=== PATIENT | female | born 1955 | race Caucasian/White ===

== ENCOUNTER 2021-11-16 13:08 | Outpatient (CLI) | payer MEDICARE, SELFPAY ==
--- OUTSIDE RECORDS SUMMARY | 2021-11-16 13:11 | XMS_ITS | Encounter Summary ---
:1955 Author Organization [facility] Address [address] [place] [address] Care Team Providers Name Role Phone Lew Grewal MD Primary Care Provider Reason for Visit Reason Comments LAB RESULTS Encounter Details Date Type Department Care Team Description 01/13/2019 Telephone [facility] [address] Kenrick Juarez MD LAB RESULTS Rheumatology 3800 [facility] [address] [place] [address] [place] [address] [phone] Social History Tobacco Use Types Packs/Day Years Used Date Smoking Tobacco: Smoker, Current Status Unknown Cigarettes 1 45 Smokeless Tobacco: Never Alcohol Use Standard Drinks/Week Comments No 0 (1 standard drink = 0.6 oz pure alcoho l) Sex Assigned at Date Recorded Not on file documented as of this encounter Nursing Notes Judith Wray LPN - 01/14/2019 9:48 AM CDT Faxed results to Dr. Grewal. No results for pt ELCP. Did note this on lab results. Kenrick Juarez MD - 01/13/2019 4:35 PM CDT Please fax recent blood work and hand x-ray to her provider. INDERT Anitha Ibarra LPN - 01/13/2019 10:41 AM CDT Patients called and they would like her lab results faxed to: Dr Lew Grewal documented in this encounter Plan of Treatment Not on filedocumented as of this encounter Visit Diagnoses Not on filedocumented in this encounter Care Teams Oil Laboratory Analyst Relationship Specialty Start Date End Date Lew Grewal MD PCP - General Family Practice 12/10/[address] [place] [address] CHRISTINA MARTINEZ [id number] documented as of this encounter
--- OUTSIDE RECORDS SUMMARY | 2021-11-16 13:11 | XMS_ITS | Encounter Summary ---
:1955 Author Organization [facility] Address [address], [place] [address] Care Team Providers Name Role Phone Unassigned, Provider Primary Care Provider Unavailable Reason for Visit Reason Onset Date Comments RESULTS, TEST 11/01/2010 Encounter Details Date Type Department Care Team Description 11/01/2010 Telephone [facility] Marcello Russell MD RESULTS, TEST [address] [place], [place] [address] Social History Tobacco Use Types Packs/Day Years Used Date Smoking Tobacco: Former Cigarettes 1 45 Comments: quit 5-6 months ago Alcohol Use Standard Drinks/Week Comments No 0 (1 standard drink = 0.6 oz pure alcoho l) Sex Assigned at Date Recorded Not on file documented as of this encounter Nursing Notes Elva Reyes RN - 11/01/2010 1:59 PM CDT Spoke with pt and reviewed results per Dr. Rollins Pt verbalized understanding and did not have further questions at this time. Elva Reyes RN Jack Lu - 11/01/2010 1:32 PM CDT Pt states returning call. Please call Elva Reyes RN - 11/01/2010 11:33 AM CDT Message left for pt to return call. Elva Reyes RN Elva Reyes RN - 11/01/2010 8:08 AM CDT Message copied by ELVA REYES on SatNov 01, 2010 8:08 AM ------ Message from: MARCELLO RUSSELL Created: SatOct 25, 2010 8:52 AM Labs are normal except B12 level is quite low; should begin B12 supplement ([id number]) cystsand get a repeat level and one month. Hemoglobin A1c indicates diabetic control needs improvement. Should followup with PCP on this. Dr. Russell documented in this encounter Plan of Treatment Not on filedocumented as of this encounter Visit Diagnoses Not on filedocumented in this encounter Care Teams Road Grader Relationship Specialty Start Date End Date Unassigned, Provider PCP - General 01/12/00 08/29/[address] [place] [address] documented as of this encounter
--- OUTSIDE RECORDS SUMMARY | 2021-11-16 13:11 | XMS_ITS | Encounter Summary ---
:1955 Author Organization [facility] Address [address], [place] [address] Care Team Providers Name Role Phone Unassigned, Provider Primary Care Provider Unavailable Reason for Referral Specialty Diagnoses / Procedures Referred By Contact Refer red To Contact Marcello Monterroso MD [address] [place] [address] Referral ID Status Reason Start Date Expiration Date Visits Requ ested Visits Authorized Scheduling Instructions Your provider [facility] You may call [phone] to schedule your a ppointment. If you prefer, a portable power tool repairer will contact you within the next 3 business d ays to assist you in setting up this appointment. Reason for Visit Reason Comments MULTIPLE SCLEROSIS swallowing difficulty Encounter Details Date Type Department Care Team Description 10/19/2010 Office Visit [place] [facility] Marcello Monterroso Multiple sclerosis (Primary Dx); [address] [facility] Abnormality of gait; [place], [place] [address] Other specified visual distu rbances [phone] Social History Tobacco Use Types Packs/Day Years Used Date Smoking Tobacco: Former Cigarettes 1 45 Comments: quit 5-6 months ago Alcohol Use Standard Drinks/Week Comments No 0 (1 standard drink = 0.6 oz pure alcoho l) Sex Assigned at Date Recorded Not on file documented as of this encounter Patient Instructions Patient InstructionsMarcello Monterroso - 10/19/2010 2:39 PM CDT Send for records from primary care Schedule brain and cervical spine MRI with and without contrast at [facility] today Refer to Eye clinic for exam Have your nurse fax us your med list - FAX number is [phone] Return 2 months; bring all your medicines with you when you come back. Marcello Monterroso MD documented in this encounter Progress Notes Marcello Monterroso - 10/19/2010 2:54 PM CDT YARY PHILIPPE is a 55 yr old right-handed woman that I last saw in 2007. She has a long-standing diagnosis of multiple sclerosis with extensive white matter lesions on MR scan in 2005. She is not on DMT. She has been followed elsewhere and apparently has been seen neurologically. We do not have those records. The patient says that about a month ago she had an exacerbation of symptoms. She reports diplopia, burning back and leg pain. She apparently was given a short course of intravenous steroids and improved. She continues to have problems with walking and balance and falls occasionally; she reports lightheadedness. She chokes when swallowing. She has coordination problems worse on the left. She has bladder urgency and incontinence. Poor visual acuity bilaterally. History of migraine headaches. No h/o significant head trauma, INFORMATION SERVICES MANAGER infections, seizures, LOC, prior LP, CVA/TIA symptoms. Current outpatient prescriptions Medication Sig ??? AVONEX 30 MCG/VIAL IM KIT Inject 1 vial IM weekly as directed. ??? CYMBALTA 30MG ORAL CAPS 1 tab qam, 2 tabs qhs ??? LISINOPRIL 40 MG OR TABS Take one tablet by mouth every day. ??? LORAZEPAM 0.5 MG OR TABS 1 tab qhs ??? METFORMIN HCL 500 MG OR TABS 1 twice daily ??? NEXIUM 40 MG OR CPDR 1 daily ??? NORTRIPTYLINE HCL 50 MG OR CAPS 2 po hs ??? OXYCODONE-ACETAMINOPHEN 5-325 MG OR TABS Take 1-2 tablets by mouth every 4-6 hours as needed forpain. ??? TOPROL XL OR 1 daily ??? VYTORIN 10-40MG ORAL TABS 1daily ??? ZOMIG 5 MG OR TABS 1 tab prn Allergies Allergen Reactions ??? Bactrim (Sulfamethoxazole W/trimethoprim) Hives ??? Nitrofurantoin Hives No family history on file. Review of systems: Type 2 diabetes; reflux; hypertension; bipolar affective disorder with depressionand anxiety. Migraine headache. Examination: Neatly casually dressed, alert, cooperative, severely overweight middle-age woman. Patchy recall of medical history, speech functions normal, no dysarthria. No right left confusion or sensory extinction. Follows simple directions quickly and accurately. Cranial Nerves: Pupils equal and reactive. Peripheral visual etienne intact. Central visual acuity poor with correction. Eye movements are full and conjugate with interrupted smooth pursuit and pendularnystagmus on refixation. Facial movements, tongue, palate, swallow normal. Motor: No arm drift. Moderately impaired left fine finger control. Tendon reflexes 1+ and equal, trace at the ankles.. Plantar responses downgoing, no clonus. Mild tremor of the outstretched hands. Able to rise on heels and toes. Sensation: Inconsistent and patchy sensory change in the extremities. Cerebellar: finger to nose and heel to ocampo accurate. Normal gait. No edema or trophic changes over the feet. Straight leg raising negative. Normal habitus and spinal curvatures. Impression: Multiple sclerosis; visual loss-cause undetermined; left-sided clumsiness; dysphagia; neuralgia Plan: Will send for the records of the patient's recent care in a medication list from her visiting nurse. Patient is not sure what medications she is on. We'll do some screening labs to reassess her diabetes; we'll recheck vitamin levels. Will order a cranial and cervical spine MR scan with and without contrast. Depending on whether or not receiving the development of new or active lesions we may consider DMT. Referred to ophthalmology for evaluation. Depending on what has been done at the patient's primary clinic we may want a swallow study and urologic evaluation. We'll check orthostatic blood pressures at next visit. I'll see the patient back in two months to reassess. Marcello Monterroso MD Please note-This report was transcribed with the assistance of voice recognition software and may contain word substitution or spelling errors. documented in this encounter Plan of Treatment Scheduled Referrals Name Type Priority Associated Diagnoses Order S chedule OPHTHALMOLOGY Referral Routine Other specified visual Orde red: 10/19/2010 CONSULT-ADULT/PEDS disturbances documented as of this encounter Results NMO IGG (10/19/2010 2:58 PM CDT) Component Value Ref Test Analysis Performed At Patholo gist Range Method Time Signature NMO-IgG <1.6 [facility] Reference Range: <1.6 U/mL NMO-IgG (NOTE) [facility] NMO Evaluation w/Reflex, S ?? Interpretive Comments ? No informative autoantibodies were detected in this ? evaluation. ??A negative result does not exclude a di agnosis ? of a neuromyelitis optica spectrum of disorders. For research use only Test Performed by: [employer] [address] [place] [id number] Specimen Anatomical Collection Method Collection Time Receive d Time (Source) Location / / Volume Laterality 10/19/2010 2:58 PM 1 3:04 CDT PM CDT Marcello Monterroso MD LAB_1 Performing Organization Address [facility] Phon e Number [facility] [phone] [facility] [address] [phone] (ABNORMAL) VIT B12 & FOLATE (10/19/2010 2:58 PM CDT) P athologist Signature Vitamin B12 214 (L) 239 - 931 [facility] pg/ml Folate >20.0 >3.0 ng/ml [facility] Specimen Anatomical Collection Method Collection Time Receive d Time (Source) Location / / Volume Laterality 10/19/2010 2:58 PM 1 3:04 CDT PM CDT Marcello Monterroso MD LAB_1 Performing Organization Address [facility] Phon e Number [facility] [employer] [phone] [facility] [address] [place] [phone] OSCAR SCREEN (10/19/2010 2:58 PM CDT) Analysis Performed At Patho logist Time Signature OSCAR Screen Negative NEG [facility] Specimen Anatomical Collection Method Collection Time Receive d Time (Source) Location / / Volume Laterality 10/19/2010 2:58 PM 1 3:04 CDT PM CDT Marcello Monterroso MD LAB_1 Performing Organization Address [facility] Phon e Number [facility] [employer] [phone] [phone] (ABNORMAL) HGB A1C (10/19/2010 2:58 PM CDT) athologist Signature Hgb A1c 8.9 (H) 4.3 - 6.1 % [facility] Comment: The usual A1C goal for people with diabe yanna, age 18-75, is < 7.0%. Physicians may recommend a higher or lo wer goal for specific individuals. Specimen Anatomical Collection Method Collection Time Receive d Time (Source) Location / / Volume Laterality 10/19/2010 2:58 PM 1 3:04 CDT PM CDT Marcello Monterroso MD LAB_1 Performing Organization Address [facility] Phon e Number [facility] [employer] [phone] [phone] ESR (10/19/2010 2:58 PM CDT) athologist [facility] ESR 2 0 - 20 [facility] mm/hr Specimen Anatomical Collection Method Collection Time Receive d Time (Source) Location / / Volume Laterality 10/19/2010 2:58 PM 1 3:04 CDT PM CDT Marcello Monterroso MD LAB_1 Performing Organization Address [facility] Phon e Number [facility] [employer] [phone] [address] (ABNORMAL) HEMOGRAM/PLTS (10/19/2010 2:58 PM CDT) athologist Signature WBC 12.5 (H) 4.0 - 11.0 [facility] k/ul RBC 4.53 4.0 - 5.2 [facility] M/ul Hemoglobin 14.4 12.0 - [facility] 16.0 g/dl HCT 41.9 36.0 - [facility] 46.0 % MCV 92.4 80 - 100 [facility] fl MCH 31.8 26 - 34 pg [facility] MCHC 34.5 32 - 36 [facility] g/dl RDW 13.3 11.5 - [facility] 14.5 % Platelets 418 150 - 450 [facility] k/ul Specimen Anatomical Collection Method Collection Time Receive d Time (Source) Location / / Volume Laterality 10/19/2010 2:58 PM 1 3:04 CDT PM CDT Marcello Monterroso MD LAB_1 Performing Organization Address [facility] Phon e Number [facility] [employer] [phone] [facility] [address] [place] [phone] BASIC METABOLIC PANEL (10/19/2010 2:58 PM CDT) Analysis Performed At Patho logist Time Signature BUN 14 7 - 20 [facility] mg/dl Sodium 140 135 - 145 [facility] mmol/L Potassium 4.5 3.5 - 5.3 [facility] mmol/L Chloride 101 95 - 106 [facility] mmol/L CO2 27 22 - 30 [facility] mmol/L Glucose 151 70 - 180 [facility] mg/dl Creatinine 0.76 0.52 - [facility] 1.04 mg/dl GFR, Estimated >60.0 >60 [facility] ml/min/1.7 3m2 GFR, Est., If >60.0 >60 [facility] Black ml/min/1.7 3m2 Calcium 9.8 8.4 - 10.2 [facility] mg/dl Anion Gap 12 7 - 16 [facility] (calc.) mmol/L Specimen Anatomical Collection Method Collection Time Receive d Time (Source) Location / / Volume Laterality 10/19/2010 2:58 PM 1 3:04 CDT PM CDT Marcello Monterroso MD LAB_1 Performing Organization Address [facility] Phon e Number [facility] [employer] [phone] [facility] [address] [place] [phone] AST (SGOT) (10/19/2010 2:58 PM CDT) P athologist Signature AST (SGOT) 38 0 - 55 U/L [facility] Specimen Anatomical Collection Method Collection Time Receive d Time (Source) Location / / Volume Laterality 10/19/2010 2:58 PM 1 3:04 CDT PM CDT Marcello Monterroso MD LAB_1 Performing Organization Address [facility] Phon e Number [facility] [phone] [facility] [address] [place] [phone] ALT (SGPT) (10/19/2010 2:58 PM CDT) athologist Signature ALT (SGPT) 43 0 - 69 U/L [employer] Specimen Anatomical Collection Method Collection Time Receive d Time (Source) Location / / Volume Laterality 10/19/2010 2:58 PM 1 3:04 CDT PM CDT Marcello Monterroso MD LAB_1 Performing Organization Address [facility] Phon e Number [facility] [employer] [phone] [phone] documented in this encounter Visit Diagnoses Diagnosis Multiple sclerosis (HRC) - Primary Multiple sclerosis Abnormality of gait Other specified visual disturbances documented in this encounter Care Teams Camp Housekeeper Relationship Specialty Start Date End Date Unassigned, Provider PCP - General 01/12/00 08/29/[address] [place] [id number] documented as of this encounter
--- OUTSIDE RECORDS SUMMARY | 2021-11-16 13:11 | XMS_ITS | Clinical Summary ---
:1955 Author Organization [facility] Address [address] [place] [address] Care Team Providers Name Role Phone Lew Grewal MD Primary Care Provider Source Comments You are receiving this document as you are listed as the primary care provider,follow-up provider, or the patient has been referred to you for consultation.This is in compliance with the Medicare and Medicaid EHR Incentive Program,which states Providers who transition their patient to another setting of careor provider of care or refers their patient to another provider of care shouldprovide summarycare record for each transition of care or referral. [employer] Allergies Active Allergy Reactions Severity Noted Date Comments Sulfamethoxazole-Trimethoprim Hives 10/19/2010 Nitrofurantoin Hives 10/19/2010 Medications Medication Sig Dispensed Refills Start Date End Date Status NEXIUM 40 MG OR 1 daily 0 Acti ve CPDRIndications: Memory loss, Multiple sclerosis (HRC) NORTRIPTYLINE HCL 50 2 po hs 60 6 10/29/2005 Active MG OR CAPSIndications: Multiple sclerosis (HRC) METFORMIN HCL 500 MG 1 twice daily 0 Active OR TABS TOPROL XL OR 1 daily 0 Active LISINOPRIL 40 MG OR Take one tablet by 0 Active TABS mouth every day. ZOMIG 5 MG OR TABS 1 tab prn 0 A ctive CYMBALTA 30MG ORAL 1 tab qam, 2 tabs 0 Active CAPS qhs LORAZEPAM 0.5 MG OR 1 tab qhs 0 Active TABS salsalate (AKA Take 2 Tabs by 60 Tab 0 09/06/2011 Active DISALCID) 750 MG mouth two times a tabletIndications: day. Myalgia and myositis, unspecified baclofen (LIORESAL) 10 Take 1 Tablet by 0 12/28/2010 Active MG tablet mouth. QUEtiapine (SEROQUEL) QUEtiapine 100 mg 0 07/11/2013 Active 100 MG tablet oral tablet See Instructions, 1 tab(s) PO in AM, 4 tab s at bedtime diclofenac (VOLTAREN) Apply 2 g to skin 200 g 11 01/12/2019 Active 1 % gelIndications: 4 times a day. Arthralgia, unspecified joint, Primary osteoarthritis of both hands oxyCODONE (ROXICODONE) Take 1 Tablet by 0 06/19/2013 Active 5 MG immediate release mouth. tablet Active Problems Problem Noted Date Diabetic neuropathy 01/12/2019 Hyperlipidemia LDL goal <100 01/12/2019 Migraine headache 01/12/2019 Seasonal allergic rhinitis 01/12/2019 Acute pancreatitis 09/22/2014 Relapsing pancreatitis 08/29/2014 Overview: Pancreatitis Chronic Recurrent Essential hematuria 01/18/2010 Diabetes mellitus, type 2 01/12/2008 GERD (gastroesophageal reflux disease) 01/12/2008 Benign essential hypertension 12/24/2006 Overview: Benign Essential Hypertension Essential hypertension, benign Bipolar disorder 09/18/2005 Overview: Epic Multiple sclerosis 09/06/2005 Abnormality of gait 09/06/2005 Resolved Problems Problem Noted Date Resolved Date Memory loss 09/06/2005 10/29/2005 Immunizations Name Administration Dates Next Due Flu Vac (3+ yrs) 03/13/2000 Social History Tobacco Use Types Packs/Day Years Used Date Smoking Tobacco: Smoker, Current Status Unknown Cigarettes 1 45 Smokeless Tobacco: Never Alcohol Use Standard Drinks/Week Comments No 0 (1 standard drink = 0.6 oz pure alcoho l) Sex Assigned at Date Recorded Not on file Last Filed Vital Signs Vital Sign Reading Time Taken Comments Blood Pressure 141/64 01/12/2019 1:22 PM CDT Pulse 75 01/12/2019 1:22 PM CDT Temperature - - Respiratory Rate 20 12/06/2010 1:26 PM CDT Oxygen Saturation - - Inhaled Oxygen Concentration - - Weight 76.7 kg (169 lb) 01/12/2019 1:22 PM CDT Height 162.6 cm (5' 4) 01/12/2019 1:22 PM CDT Body Mass Index 29.01 01/12/2019 1:22 PM CDT Plan of Treatment Health Maintenance Due Date Last Done Comments Colon Cancer Screening Plan 1955 Due Diabetes: Eye Exam 1955 Diabetes: Foot Exam 1955 Diabetes: Lipid Panel 1955 Diabetes: Urine 1955 Microalbumin COVID-19 Vaccine (#1) 1955 Adult Preventive Visit 05/11/2000 05/11/1999 Mammogram 11/04/2004 11/05/2003 Diabetes: HGBA1C 01/19/2011 10/19/2010, 09/18/2005 Diabetes: Creatinine 10/20/2011 10/19/2010, 09/18/2005 DTaP/Tdap/Td (2 - Tdap) 08/21/2014 08/21/2004, 08/21/2004 Zoster/Shingles (2 of 3) 07/17/2016 05/22/2016 Pneumococcal 65+ Yrs (3 - 09/20/2020 09/21/2019, 08/12/2015 , PPSV23) 06/29/2014, Additional history exists Influenza (#1) 2021 02/17/2016, 01/10/2015, 02/11/2014, Additional history exists Hep C Screening (Preventive Completed 01/12/2019 Services) HepA Aged Out No longer eligib le based on patient 's age to complete this topic HepB Aged Out No longer eligib le based on patient 's age to complete this topic Hib Aged Out No longer eligib le based on patient 's age to complete this topic IPV (Polio) Aged Out No longer eligib le based on patient 's age to complete this topic MCV4 Aged Out No longer eligib le based on patient 's age to complete this topic Insurance Payer Benefit Plan / Subscriber ID Effective Dates Phone Addre ss Type Group BCBS BCBS AHA [id number] 2018-[place] [id number] Commercial [employer] CHRISTINA CARABALLO [id number] Yary Prince Personal/Family Self 1955 [id number] [facility] [address] [facility] [phone] CHRISTINA SHEFFIELD (Work) [phone] Care Teams Balloon Tester Relationship Specialty Start Date End Date Lew Grewal MD PCP - General Family Practice 12/10/[address] [place] [address] CHRISTINA MARTINEZ [id number]
--- OUTSIDE RECORDS SUMMARY | 2021-11-16 13:11 | XMS_ITS | Encounter Summary ---
:1955 Author Organization [facility] Address [address], [place] [address] Care Team Providers Name Role Phone Unassigned, Provider Primary Care Provider Unavailable Reason for Visit Reason Onset Date Comments QUESTIONS, GENERAL 10/23/2007 Encounter Details Date Type Department Care Team Description 10/23/2007 Telephone [place] [facility] Marcello Monterroso MD QUESTIONS, GENERAL [address] [facility]. [place], [place] [address] Social History Tobacco Use Types Packs/Day Years Used Date Smoking Tobacco: Former Cigarettes 1 45 Comments: quit 5-6 months ago Alcohol Use Standard Drinks/Week Comments No 0 (1 standard drink = 0.6 oz pure alcoho l) Sex Assigned at Date Recorded Not on file documented as of this encounter Nursing Notes Andreina Esquivel - 10/23/2007 4:35 PM CDT Pt states she's on her way to ER now bc she's having problems breathing my windpipe closes off. Someone else is driving. Told pt it's correct for her to go to ER - if worse, call 911. Pt voiced understg. Andreina Esquivel, RN Lexy De Los Santos - 10/23/2007 1:19 PM CDT Pt states that she is having throat problems and difficulty - states her primary advised it is MS related and to contact us - pt states it is getting worse - documented in this encounter Plan of Treatment Not on filedocumented as of this encounter Visit Diagnoses Not on filedocumented in this encounter Care Teams Supervisor Last Model Department Relationship Specialty Start Date End Date Unassigned, Provider PCP - General 01/12/00 08/29/[address] [place] [id number] documented as of this encounter
--- OUTSIDE RECORDS SUMMARY | 2021-11-16 13:11 | XMS_ITS | Encounter Summary ---
:1955 Author Organization [facility] Address [address] [place] [address] Care Team Providers Name Role Phone Unassigned, Provider Primary Care Provider Unavailable Encounter Details Date Type Department Care Team Description 10/11/2005 Orders Only [facility] 401 Marcello Monterroso MD [facility] [address] [place] [address]. [place] [address] Social History Tobacco Use Types Packs/Day Years Used Date Smoking Tobacco: Every Day Cigarettes 1 45 Comments: States as of 09-18-05 she is no t buying any more cigarettes Alcohol Use Standard Drinks/Week Comments No 0 (1 standard drink = 0.6 oz pure alcoho l) Sex Assigned at Date Recorded Not on file documented as of this encounter Procedure Notes Nahid Arredondo H - 10/11/2005 12:00 AM CDTAssociated Order(s): EEG EXT MONITORING; 41-60 MIN EEG REPORT EEG REPORT #: [id number] REFERRING PHYSICIAN: Dr. Marcello Monterroso This is a spontaneous nonfasting EEG of a patient who has history of MS, cognitive deficit, bipolar disorder, gait unsteadiness and recently has been complaining of memory problems. She is on Avonex, Depakote, Cymbalta, amitriptyline, glipizide, nadolol and TriCor. In wakeful state, there is a well-modulated, 9-10 Hz, posterior rhythm which blocks on eye opening. Occasional right temporal slowing is seen. There is 1 episode of phase reversal of sharp wave at T4-T6. The patient becomes drowsy but does not go to sleep. EKG was monitored and shows sinus rhythm. Photic stimulation did not give rise to any abnormality. Hyperventilation was not performed. IMPRESSION: This is a mildly abnormal EEG because of occasional right temporal slowing and 1 phase-reversing sharp wave over the right temporal region. Clinical correlation is recommended. If necessary, a sleep-deprived EEG should be performed. P cc: MD Marcello Montgomery MD documented in this encounter Plan of Treatment Not on filedocumented as of this encounter Procedures Procedure Name Priority Date/Time Associated Diagnosis Comme nts EEG EXT MONITORING; 10/11/2005 Results for this 41-60 MIN procedure are i n the results section . documented in this encounter Results EEG EXT MONITORING; 41-60 MIN (10/11/2005) Anatomical Region Laterality Modality Other Transcriptions JennyNahid rodriguez Catarino - 10/11/2005 12:00 AM CDT EEG REPORT EEG REPORT #: [id number] REFERRING PHYSICIAN: Dr. Marcello Monterroso This is a spontaneous nonfasting EEG of a patient who has history of MS, cognitive deficit, bipolar disorder, gai t unsteadiness and recently has been complaining of memory problems. She is on Avonex, Depakote, Cymbalta, am itriptyline, glipizide, nadolol and TriCor. In wakeful state, there is a well-modula carlito, 9-10 Hz, posterior rhythm which blocks on eye opening. Occasional right temporal slowing is seen. There is 1 episode of phase reversal of sharp wave at T4-T6. The patient becomes drowsy but does not go to sleep. EKG was monitored and shows sinus rhythm. Photic stimulation did not give rise to any abnormality. Hyperventilation was not performed. IMPRESSION: This is a mildly abnormal EEG because of occasional right temporal slowing and 1 phase-reversing sharp wave over th e right temporal region. Clinical correlation is recommended. If necessary, a sleep-deprived EEG should be performed. P cc: MD Marcello Montgomery MD Marcello Monterroso MD PROC_1 documented in this encounter Visit Diagnoses Not on filedocumented in this encounter Care Teams Cardiothoracic Surgeon Relationship Specialty Start Date End Date Unassigned, Provider PCP - General 01/12/00 08/29/[address] [place] [id number] documented as of this encounter
--- OUTSIDE RECORDS SUMMARY | 2021-11-16 13:11 | XMS_ITS | Encounter Summary ---
:1955 Author Organization [facility] Address [address] [place] [address] [place] [address] Care Team Providers Name Role Phone Unassigned, Provider Primary Care Provider Unavailable Reason for Visit Reason Comments MULTIPLE SCLEROSIS Encounter Details Date Type Department Care Team Description 08/19/2007 Office Visit [facility] Marcello Monterroso, Multiple Sclerosis (Primary Dx); [address] Gabbi LOUIS Obesity, Unspecified [place], [place] [address] Social History Tobacco Use Types Packs/Day Years Used Date Smoking Tobacco: Former Cigarettes 1 45 Comments: quit 5-6 months ago Alcohol Use Standard Drinks/Week Comments No 0 (1 standard drink = 0.6 oz pure alcoho l) Sex Assigned at Date Recorded Not on file documented as of this encounter Last Filed Vital Signs Vital Sign Reading Time Taken Comments Blood Pressure 136/84 08/19/2007 10:05 AM CDT Pulse 64 08/19/2007 10:05 AM CDT Temperature - - Respiratory Rate - - Oxygen Saturation - - Inhaled Oxygen Concentration - - Weight 107 kg (236 lb) 08/19/2007 10:05 AM CDT Height 160 cm (5' 3) 08/19/2007 10:05 AM CDT Body Mass Index 41.81 08/19/2007 10:05 AM CDT documented in this encounter Nursing Notes 08/19/2007 10:15 AM CDT >> GABE Fierro August 19, 2007 10:16 AM FOLLOW-UP Meds updated and verified with pt. documented in this encounter Plan of Treatment Not on filedocumented as of this encounter Visit Diagnoses Diagnosis Multiple sclerosis (HRC) - Primary Multiple sclerosis Obesity, unspecified (HRC) Obesity, unspecified documented in this encounter Care Teams Retirement Consultant Relationship Specialty Start Date End Date Unassigned, Provider PCP - General 01/12/00 08/29/[address] [place] [address] documented as of this encounter
--- OUTSIDE RECORDS SUMMARY | 2021-11-16 13:11 | XMS_ITS | Encounter Summary ---
:1955 Author Organization [facility] Address [address], [place] [address] Care Team Providers Name Role Phone Unassigned, Provider Primary Care Provider Unavailable Reason for Visit Reason Onset Date Comments MEDICATION, NOS 02/15/2006 Encounter Details Date Type Department Care Team Description 02/15/2006 Telephone [facility] Marcello Monterroso MD MEDICATION, NOS [address] [facility]. . [place], [place] [address] Social History Tobacco Use Types Packs/Day Years Used Date Smoking Tobacco: Every Day Cigarettes 1 45 Comments: States as of 09-18-05 she is no t buying any more cigarettes Alcohol Use Standard Drinks/Week Comments No 0 (1 standard drink = 0.6 oz pure alcoho l) Sex Assigned at Date Recorded Not on file documented as of this encounter Nursing Notes Delilah Glez RN - 02/20/2006 9:44 AM PRESS SET UP PERSON Rosemary was called back, given the information that was available regarding the Copaxone, told that if she wanted further information she would need to sign a MOHINDER and get the records faxed to the facility where the patient is now. Delilah Gelz RN S SET UP PERSON Delilah Glez RN - 02/15/2006 11:08 AM [facility] called, message left to call back. Delilah Glez RN Lexy Erickson - 02/15/2006 10:37 AM [facility] facility calling with theses questions Regarding Avonix WHAT DOSE WAS PATIENT ON HOW LONG ANY OTHER SAME TYPE MEDS TRIED S SET UP PERSON documented in this encounter Plan of Treatment Not on filedocumented as of this encounter Visit Diagnoses Not on filedocumented in this encounter Care Teams Jumpbasting Armhole Baster Relationship Specialty Start Date End Date Unassigned, Provider PCP - General 01/12/00 08/29/[address] [place] [address] documented as of this encounter
--- OUTSIDE RECORDS SUMMARY | 2021-11-16 13:11 | XMS_ITS | Encounter Summary ---
:1955 Author Organization [facility] Address [address] [place] [address] Care Team Providers Name Role Phone Lew Grewal MD Primary Care Provider Encounter Details Date Type Department Care Team Description 01/12/2019 Lab Visit [facility] Arthralgia, unspecified join t; [address] [employer] Primary osteoarthritis of shavon th hands; [place] [address] Myalgia [phone] Social History Tobacco Use Types Packs/Day Years Used Date Smoking Tobacco: Smoker, Current Status Unknown Cigarettes 1 45 Smokeless Tobacco: Never Alcohol Use Standard Drinks/Week Comments No 0 (1 standard drink = 0.6 oz pure alcoho l) Sex Assigned at Date Recorded Not on file documented as of this encounter Progress Notes Kenrick Juarez MD - 01/12/2019 2:20 PM CDT Recent blood work shows normal inflammatory markers C-reactive protein and sedimentation rate pointing against an active inflammatory process. Normal muscle enzymes. Negative screen for rheumatoid arthritis. Negative screening for gout arthritis. Negative screening for hepatitis C. documented in this encounter Plan of Treatment Not on filedocumented as of this encounter Procedures Procedure Name Priority Date/Time Associated Diagnosis Comme nts ANTI-CCP AB Routine 01/12/2019 2:27 PM Arthralgia, Results f or this CDT unspecified join t procedure are in Primary osteoarthritis the r esults of both hands section. ELP, CASCADE, SERUM Routine 01/12/2019 2:27 PM Arthralgia, Re sults for this CDT unspecified join t procedure are in Primary osteoarthritis the r esults of both hands section. RHEUMATOID FACTOR, Routine 01/12/2019 2:27 PM Arthralgia, Res ults for this QUANT CDT unspecified join t procedure are in Primary osteoarthritis the r esults of both hands section. HEPATITIS C Routine 01/12/2019 2:27 PM Arthralgia, Results f or this ANTIBODY, WITH CDT unspecified join t procedure are in REFLEX Primary osteoarthritis the r esults of both hands section. C-REACTIVE PROTEIN Routine 01/12/2019 2:27 PM Arthralgia, Res ults for this CDT unspecified join t procedure are in Primary osteoarthritis the r esults of both hands section. URIC ACID Routine 01/12/2019 2:27 PM Arthralgia, Results f or this CDT unspecified join t procedure are in Primary osteoarthritis the r esults of both hands section. CK, TOTAL Routine 01/12/2019 2:27 PM Arthralgia, Results f or this CDT unspecified join t procedure are in Primary osteoarthritis the r esults of both hands section. Myalgia ESR Routine 01/12/2019 2:27 PM Arthralgia, Results f or this CDT unspecified join t procedure are in Primary osteoarthritis the r esults of both hands section. documented in this encounter Results CPK - CK Total (01/12/2019 2:27 PM CDT) P athologist Signature CK, Total 34 29 - 168 01/12/2019 [facility] U/L 3:17 PM CDT LABORATORY Specimen Anatomical Collection Method / Collection Time Recei rosemarie Time (Source) Location / Volume Laterality Blood Venipuncture / 01/12/2019 2:27 01/12/2019 2:27 Unknown PM CDT PM CDT Kenrick Juarez MD LAB_1 Performing Organization Address City/State/ZIP Code Phon e Number [facility] [address] [place] [address] HCAB - Hepatitis C Virus [place] with Reflex In-House (01/12/2019 2:27 PM CDT) [facility] gist Method Time Signature Hepatitis C Negative Negative 01/12/2019 [facility] Antibody (Non (Non 7:42 PM CDT LABORATORY Reactive) Reactive) Comment: Antibodies to HCV not detected. Does not exclude the possiblity of exposure to HCV. Specimen Anatomical Collection Method / Collection Time Recei rosemarie Time (Source) Location / Volume Laterality Blood Venipuncture / 01/12/2019 2:27 01/12/2019 2:27 Unknown PM CDT PM CDT Kenrick Juarez MD LAB_1 Performing Organization Address [facility]/ZIP Code Phon e Number [facility] [address] [place] [address] RHF - Rheumatoid Factor (01/12/2019 2:27 PM CDT) Analysis Performed At [facility] logist Time Signature Rheumatoid <15 <=30 IU/mL 01/12/2019 [facility] Factor, 7:22 PM CDT LABORATORY Quantitative Specimen Anatomical Collection Method / Collection Time Recei rosemarie Time (Source) Location / Volume Laterality Blood Venipuncture / 01/12/2019 2:27 01/12/2019 2:27 Unknown PM CDT PM CDT Kenrick Juarez MD LAB_1 Performing Organization Address [facility] Phon e Number [facility] [address] [place] [address] CCPIG - Cyclic Citrullinated Peptide AB (01/12/2019 2:27 PM CDT) [facility] Method Time Signature Anti-CCP Antibody 1 <7 U/mL 01/13/2019 [facility] 12:42 PM [facility]AL LAB CDT Anti-CCP Antibody Negative Negative 01/13/2019 [facility] Interpretation 12:42 PM CENTRAL LAB CDT Specimen Anatomical Collection Method / Collection Time Recei rosemarie Time (Source) Location / Volume Laterality Blood Venipuncture / 01/12/2019 2:27 01/12/2019 2:27 Unknown PM CDT PM CDT Kenrick Juarez MD LAB_1 Performing Organization Address [facility] Phon e Number [facility]TRAL [facility] [address] [address] ESR - Sedimentation Rate (01/12/2019 2:27 PM CDT) [facility] gist Method Time Signature Sedimentation Rate 10 0 - 20 01/12/2019 [facility] mm/hr 3:50 PM CDT LABORATORY Specimen Anatomical Collection Method / Collection Time Recei rosemarie Time (Source) Location / Volume Laterality Blood Venipuncture / 01/12/2019 2:27 01/12/2019 2:27 Unknown PM CDT PM CDT Kenrick Juarez MD LAB_1 Performing Organization Address City/State/ZIP Code Phon e Number [facility] [address] [place] [address] ELCP - Electrophoresis [place] To LYLE,Serum (01/12/2019 2:27 PM CDT) Component Value Ref Test Analysis Performed At [facility] gist Range Method Time Signature Total Protein 6.7 6.4 - 01/14/2019 [facility] 8.3 12:18 PM CENTRAL LAB g/dL CDT Albumin 3.9 3.4 - 01/14/2019 [facility] 4.8 12:18 PM CENTRAL LAB g/dL CDT Alpha 1 0.3 0.2 - 01/14/2019 [facility] 0.5 12:18 PM CENTRAL LAB g/dL CDT Alpha 2 0.9 0.5 - 01/14/2019 [facility] 1.1 12:18 PM CEN[facility]AL LAB g/dL CDT Beta 0.9 0.6 - 01/14/2019 [facility] 1.1 12:18 PM CENTRAL LAB g/dL CDT Gamma 0.8 0.7 - 01/14/2019 [facility] 1.6 12:18 PM CENTRAL LAB g/dL CDT Monoclonal Roberto 0.0 <=0.0 01/14/2019 [facility] g/dL 12:18 PM [facility] LAB CDT Interpretation No monoclonal 01/14/2019 [facility] protein is 12:18 PM [facility] detected in the CDT serum. Additional Not indicated. 01/14/2019 [facility] Testing 12:18 PM CENTRAL LAB CDT Signed Out By [facility] 01/14/2019 [facility] 12:18 PM CENTRAL LAB Laboratory CDT Specimen Anatomical Collection Method / Collection Time Recei rosemarie Time (Source) Location / Volume Laterality Blood Venipuncture / 01/12/2019 2:27 01/12/2019 2:27 Unknown PM CDT PM CDT Kenrick Juarez MD LAB_1 Performing Organization Address City/State/ZIP Code Phon e Number [facility] [address] [address] CRP - C Reactive Protein (01/12/2019 2:27 PM CDT) P athologist Signature C-Reactive <0.5 0.0 - 0.7 01/12/2019 [facility] Protein mg/dL 3:17 PM CDT LABORATORY Specimen Anatomical Collection Method / Collection Time Recei rosemarie Time (Source) Location / Volume Laterality Blood Venipuncture / 01/12/2019 2:27 01/12/2019 2:27 Unknown PM CDT PM CDT Kenrick Juarez MD LAB_1 Performing Organization Address [facility] Phon e Number [facility] [address] [place] [address] URIC - Uric Acid (01/12/2019 2:27 PM CDT) athologist Signature Uric Acid 5.2 2.6 - 6.0 01/12/2019 [facility] mg/dL 3:17 PM CDT LABORATORY Specimen Anatomical Collection Method / Collection Time Recei rosemarie Time (Source) Location / Volume Laterality Blood Venipuncture / 01/12/2019 2:27 01/12/2019 2:27 Unknown PM CDT PM CDT Kenrick Juarez MD LAB_1 Performing Organization Address City/[facility] Phon e Number [facility] [address] [place] [address] documented in this encounter Visit Diagnoses Diagnosis Arthralgia, unspecified joint Primary osteoarthritis of both hands Myalgia Mylagia and myositis, unspecified documented in this encounter Care Teams Automotive Exhaust Emissions Technician Relationship Specialty Start Date End Date Lew Grewal MD PCP - General Family Practice 12/10/[address] [place] [address] CHRISTINA MARTINEZ [address] documented as of this encounter
--- OUTSIDE RECORDS SUMMARY | 2021-11-16 13:11 | XMS_ITS | Encounter Summary ---
:1955 Author Organization [facility] Address [address] [place] [address] Care Team Providers Name Role Phone Lew Grewal MD Primary Care Provider Encounter Details Date Type Department Care Team Description 01/13/2019 Notes/Orders [facility] [place] [address] [place] [address] [place], [place] [address] (Wo rk) Social History Tobacco Use Types Packs/Day Years Used Date Smoking Tobacco: Smoker, Current Status Unknown Cigarettes 1 45 Smokeless Tobacco: Never Alcohol Use Standard Drinks/Week Comments No 0 (1 standard drink = 0.6 oz pure alcoho l) Sex Assigned at Date Recorded Not on file documented as of this encounter Plan of Treatment Not on filedocumented as of this encounter Visit Diagnoses Not on filedocumented in this encounter Care Teams City Planner Relationship Specialty Start Date End Date Lew Grewal MD PCP - General Family Practice 12/10/[address] [place] [address] documented as of this encounter
--- OUTSIDE RECORDS SUMMARY | 2021-11-16 13:11 | XMS_ITS | Encounter Summary ---
:1955 Author Organization [employer] Address [address] [place] [address] Care Team Providers Name Role Phone No Primary/Referring, Phy Primary Care Provider Unavailable Reason for Visit Reason Comments MULTIPLE SCLEROSIS Encounter Details Date Type Department Care Team Description 09/06/2011 Office Visit [facility] Marcello Monterroso, Myalgia and myositis, unspec ified (Primary Dx); [address] Gabbi L[place]IS Abnormality of gait; [place], [place] [address] BIPOLAR DISORDER NOS [phone] Social History Tobacco Use Types Packs/Day Years Used Date Smoking Tobacco: Former Cigarettes 1 45 Quit : 12/30/2004 Smokeless Tobacco: Never Alcohol Use Standard Drinks/Week Comments No 0 (1 standard drink = 0.6 oz pure alcoho l) Sex Assigned at Date Recorded Not on file documented as of this encounter Last Filed Vital Signs Vital Sign Reading Time Taken Comments Blood Pressure 98/60 09/06/2011 2:12 PM CDT Pulse 99 09/06/2011 2:12 PM CDT Temperature - - Respiratory Rate - - Oxygen Saturation - - Inhaled Oxygen Concentration - - Weight 97.1 kg (214 lb) 09/06/2011 2:12 PM CDT Height 162.6 cm (5' 4) 09/06/2011 2:12 PM CDT Body Mass Index 36.73 09/06/2011 2:12 PM CDT documented in this encounter Patient Instructions Patient InstructionsMarcello Monterroso MD - 09/06/2011 2:52 PM CDT For the muscle aches and soreness take Salsalate 750 mgm - 2 pills every 12 hours for 2 weeks. Don'ttake any Alleve, Advil, Ibuprofen, naproxen, etc in the same 24 hrs as this medication.You can take your one baby aspirin each day. You can use tylenol if needed. If your ears ring more reduce the doseto 1 1/2 pills twice a day. Send for records of recent hospitalization in [facility]. Marcello Monterroso MD documented in this encounter Progress Notes Marcello Monterroso MD - 09/06/2011 3:00 PM CDT 56-year-old woman with long-standing multiple sclerosis is in today because of recent symptoms. Lastweek her primary physician called from a clinic in [place] because Yary was feeling weak and unsteady. Yary tells me that about a week ago she had a syncopal episode while seated; she felt weak sweaty and then her vision faded out and she briefly passed out. She developed prominent aching myalgias but doesn't think she had a fever. No sore throat or obvious upper respiratory infection. Aching discomfort continues. Over the weekend she was treated with intravenous methylprednisolone, 500 mg daily for three days. She feels somewhat better but still not well. She mainly feels lightheaded and weak. She did eat lunch about two hours ago she says. She believes her diabetes is under reasonable control; we don't have any records of recent testing. She tells me she had a bout of pancreatitis a few months ago. Outpatient Prescriptions Prior to Visit Medication Sig Dispense Refill ??? CYMBALTA 30MG ORAL CAPS 1 tab qam, 2 tabs qhs ??? LISINOPRIL 40 MG OR TABS Take one tablet by mouth every day. ??? LORAZEPAM 0.5 MG OR TABS 1 tab qhs ??? METFORMIN HCL 500 MG OR TABS 1 twice daily ??? NEXIUM 40 MG OR CPDR 1 daily ??? NORTRIPTYLINE HCL 50 MG OR CAPS 2 po hs 60 6 ??? OXYCODONE-ACETAMINOPHEN 5-325 MG OR TABS Take 1-2 tablets by mouth every 4-6 hours as needed forpain. 4 0 ??? TOPROL XL OR 1 daily ??? ZOMIG 5 MG OR TABS 1 tab prn ??? AVONEX 30 MCG/VIAL IM KIT Inject 1 vial IM weekly as directed. 0 ??? VYTORIN 10-40MG ORAL TABS 1daily Examination: Blood pressure 98/60, pulse 99 and regular Neatly casually dressed, alert, cooperative, tired appearing sweaty severely overweight older woman.Good recall of medical history, logical flow of thought, speech functions normal, no right left confusion or sensory extinction. Follows simple directions accurately. Cranial Nerves:Eye movements, visual etienne, facial movements , swallow normal. Motor: No arm drift; impaired finger tap on the left. Tendon reflexes 1+ and equal throughout. Plantar responses downgoing. No clonus or movement disorder. Sensation: Intact in all extremities. Cerebellar: finger to nose and heel to ocampo accurate. Mildly unsteady gait. No edema or trophic changes over the feet. Normal habitus and spinal curvatures. Impression: Myalgias and arthralgias; multiple sclerosis; dizziness Comment: It sounds as though the patient developed a viral syndrome with myalgias. Her syncopal episode could have been related to being ill with a virus or possibly blood sugar variation. She then developed more unsteadiness; it's unclear whether she had an exacerbation of her MS related to a viral infection. She did receive several days of corticosteroids and we will send for the records. Examination today shows some old findings of mild clumsiness of the left arm. She has always refused to be compliant with DMTs so will not suggest that. Give the patient two weeks of salsalate 1500 mg bid for control of muscle aches. After I see outside records if we need to do anything further I will contact her. Marcello Monterroso MD Please note-This report was transcribed with the assistance of voice recognition software and may contain word substitution or spelling errors. documented in this encounter Plan of Treatment Not on filedocumented as of this encounter Visit Diagnoses Diagnosis Myalgia and myositis, unspecified - Prim sharifa Mylagia and myositis, unspecified Abnormality of gait BIPOLAR DISORDER NOS Bipolar disorder, unspecified documented in this encounter Care Teams Laborer Wrecking And Salvaging Relationship Specialty Start Date End Date No Primary/Referring, y PCP - General 08/30/11 documented as of this encounter
--- OUTSIDE RECORDS SUMMARY | 2021-11-16 13:11 | XMS_ITS | Encounter Summary ---
:1955 Author Organization [facility] Address [address] [place] [address] Care Team Providers Name Role Phone Unassigned, Provider Primary Care Provider Unavailable Encounter Details Date Type Department Care Team Description 10/19/2010 Orders Only [facility] Multiple [facility]; [address] [facility] Abnormality of gait; [place], [place] [address] Other specified visual distu rbances [phone] Social History Tobacco Use Types Packs/Day Years Used Date Smoking Tobacco: Former Cigarettes 1 45 Comments: quit 5-6 months ago Alcohol Use Standard Drinks/Week Comments No 0 (1 standard drink = 0.6 oz pure alcoho l) Sex Assigned at Date Recorded Not on file documented as of this encounter Progress Notes Elva Ruiz RN - 11/01/2010 8:08 AM CDT Quick Note: See 11-01-10 results encounter. Elva Ruiz RN Marcello Monterroso - 10/25/2010 8:52 AM CDT Quick Note: Labs are normal except B12 level is quite low; should begin B12 injections weekly for 6 weeks here or at primary clinic. Then get a repeat level and one month. Hemoglobin A1c indicates diabetic controlneeds improvement. Should followup with PCP on this. Dr. Monterroso documented in this encounter Plan of Treatment Not on filedocumented as of this encounter Procedures Procedure Name Priority Date/Time Associated Diagnosis Comme nts NMO IGG Routine 10/19/2010 2:58 PM Multiple scle rosis Results for this CDT Abnormality of g ait procedure are in Other specified the results visual disturbances section. BASIC METABOLIC Routine 10/19/2010 2:58 PM Multiple scle rosis Results for this PANEL CDT Abnormality of g ait procedure are in Other specified the results visual disturbances section. COMPLETE BLOOD Routine 10/19/2010 2:58 PM Multiple scle rosis Results for this COUNT-NO DIFF CDT Abnormality of g ait procedure are in Other specified the results visual disturbances section. VIT B12 & FOLATE Routine 10/19/2010 2:58 PM Multiple scl erosis Results for this CDT Abnormality of g ait procedure are in Other specified the results visual disturbances section. OSCAR SCREEN Routine 10/19/2010 2:58 PM Multiple scle rosis Results for this CDT Abnormality of g ait procedure are in Other specified the results visual disturbances section. HGB A1C Routine 10/19/2010 2:58 PM Multiple scle rosis Results for this CDT Abnormality of g ait procedure are in Other specified the results visual disturbances section. ALT (SGPT) Routine 10/19/2010 2:58 PM Multiple scle rosis Results for this CDT Abnormality of g ait procedure are in Other specified the results visual disturbances section. AST Routine 10/19/2010 2:58 PM Multiple scle rosis Results for this CDT Abnormality of g ait procedure are in Other specified the results visual disturbances section. ESR Routine 10/19/2010 2:58 PM Multiple scle rosis Results for this CDT Abnormality of g ait procedure are in Other specified the results visual disturbances section. documented in this encounter Results NMO IGG (10/19/2010 2:58 PM CDT) Component Value Ref Test Analysis Performed At [facility] Range Method Time Signature NMO-IgG <1.6 [facility] Reference Range: <1.6 U/mL NMO-IgG (NOTE) [facility] NMO Evaluation w/Reflex, S ?? Interpretive Comments ? No informative autoantibodies were detected in this ? evaluation. ??A negative result does not exclude a di agnosis ? of a neuromyelitis optica spectrum of disorders. For research use only Test Performed by: [facility] [employer] [address] , [place] [address] Specimen Anatomical Collection Method Collection Time Receive d Time (Source) Location / / Volume Laterality 10/19/2010 2:58 PM 1 3:04 CDT PM CDT Marcello Monterroso MD LAB_1 Performing Organization Address [facility] Code Phon e Number [facility] [employer] [phone] [phone] (ABNORMAL) VIT B12 & FOLATE (10/19/2010 2:58 PM CDT) P athologist Signature Vitamin B12 214 (L) 239 - 931 [facility] pg/ml Folate >20.0 >3.0 ng/ml [facility] Specimen Anatomical Collection Method Collection Time Receive d Time (Source) Location / / Volume Laterality 10/19/2010 2:58 PM 1 3:04 CDT PM CDT Marcello Monterroso MD LAB_1 Performing Organization Address [facility] Phon e Number [facility] [employer] [phone] [phone] OSCAR SCREEN (10/19/2010 2:58 PM CDT) Analysis Performed At [facility] Signature OSCAR Screen Negative NEG [facility] Specimen Anatomical Collection Method Collection Time Receive d Time (Source) Location / / Volume Laterality 10/19/2010 2:58 PM 1 3:04 CDT PM CDT Marcello Monterroso MD LAB_1 Performing Organization Address [facility] Phon e Number [facility] [employer] [phone] [phone] (ABNORMAL) HGB A1C (10/19/2010 2:58 PM CDT) P athologist Signature Hgb A1c 8.9 (H) 4.3 - 6.1 % [facility] Comment: The usual A1C goal for people with diabe yanna, age 18-75, is < 7.0%. Physicians may recommend a higher or lo wer goal for specific individuals. Specimen Anatomical Collection Method Collection Time Receive d Time (Source) Location / / Volume Laterality 10/19/2010 2:58 PM 1 3:04 CDT PM CDT Marcello Monterroso MD LAB_1 Performing Organization Address [facility] Code Phon e Number [employer] [facility] [phone] [facility] [address] [place] [phone] ESR (10/19/2010 2:58 PM CDT) athologist Signature ESR 2 0 - 20 [facility] mm/hr Specimen Anatomical Collection Method Collection Time Receive d Time (Source) Location / / Volume Laterality 10/19/2010 2:58 PM 1 3:04 CDT PM CDT Marcello Monterroso MD LAB_1 Performing Organization Address [facility] Phon e Number [employer] [phone] [phone] (ABNORMAL) HEMOGRAM/PLTS (10/19/2010 2:58 PM CDT) P athologist Signature WBC 12.5 (H) 4.0 - 11.0 [facility] k/ul RBC 4.53 4.0 - 5.2 [facility] M/ul Hemoglobin 14.4 12.0 - [facility] 16.0 g/dl HCT 41.9 36.0 - [facility] 46.0 % MCV 92.4 80 - 100 [facility] fl MCH 31.8 26 - 34 pg [facility] MCHC 34.5 32 - 36 [facility] g/dl RDW 13.3 11.5 - [facility] 14.5 % Platelets 418 150 - 450 [facility] k/ul Specimen Anatomical Collection Method Collection Time Receive d Time (Source) Location / / Volume Laterality 10/19/2010 2:58 PM 1 3:04 CDT PM CDT Marcello Monterroso MD LAB_1 Performing Organization Address [facility] Phon e Number [facility] [employer] [phone] [facility] [address] [place] [phone] BASIC METABOLIC PANEL (10/19/2010 2:58 PM [...] ml/min/1.7 3m2 Calcium 9.8 8.4 - 10.2 [facility] mg/dl Anion Gap 12 7 - 16 [facility] (calc.) mmol/L Specimen Anatomical Collection Method Collection Time Receive d Time (Source) Location / / Volume Laterality 10/19/2010 2:58 PM 1 3:04 CDT PM CDT Marcello Monterroso MD LAB_1 Performing Organization Address City/[facility] Phon e Number [employer] [phone] [phone] AST (SGOT) (10/19/2010 2:58 PM CDT) athologist Signature AST (SGOT) 38 0 - 55 U/L [facility] Specimen Anatomical Collection Method Collection Time Receive d Time (Source) Location / / Volume Laterality 10/19/2010 2:58 PM 1 3:04 CDT PM CDT Marcello Monterroso MD LAB_1 Performing Organization Address [facility] Phon e Number [facility] [employer] [phone] [address] ALT (SGPT) (10/19/2010 2:58 PM CDT) P athologist Signature ALT (SGPT) 43 0 - 69 U/L [facility] Specimen Anatomical Collection Method Collection Time Receive d Time (Source) Location / / Volume Laterality 10/19/2010 2:58 PM 1 3:04 CDT PM CDT Marcello Monterroso MD LAB_1 Performing Organization Address City/State/ZIP Code Phon e Number [facility] [phone] [facility] [address] [phone] documented in this encounter Visit Diagnoses Diagnosis Multiple sclerosis ([facility]) Multiple sclerosis Abnormality of gait Other specified visual disturbances documented in this encounter Care Teams Customer Greeter Relationship Specialty Start Date End Date Unassigned, Provider PCP - General 01/12/00 08/29/11 [address] [place] [address] documented as of this encounter
--- OUTSIDE RECORDS SUMMARY | 2021-11-16 13:11 | XMS_ITS | Encounter Summary ---
:1955 Author Organization [facility] Address [address] [place] [address] Care Team Providers Name Role Phone Unassigned, Provider Primary Care Provider Unavailable Reason for Referral Specialty Diagnoses / Procedures Referred By Contact Refer red To Contact Marcello Monterroso MD [address] [place] [address] Referral ID Status Reason Start Date Expiration Date Visits Requ ested Visits Authorized Scheduling Instructions [facility] an [facility] and you have not been contacted to schedule that appo intment within 3 business days, please call [phone] for assistance. Reason for Visit Reason Comments CHOKING has been going on for 3 valdez Encounter Details Date Type Department Care Team Description 01/28/2008 Office Visit [facility] Marcello Monterroso Dysphagia (Primary Dx) [address] [facility] [place], [place] [address] Social History Tobacco Use Types Packs/Day Years Used Date Smoking Tobacco: Former Cigarettes 1 45 Comments: quit 5-6 months ago Alcohol Use Standard Drinks/Week Comments No 0 (1 standard drink = 0.6 oz pure alcoho l) Sex Assigned at Date Recorded Not on file documented as of this encounter Last Filed Vital Signs Vital Sign Reading Time Taken Comments Blood Pressure 114/68 01/28/2008 9:12 AM CDT Pulse 88 01/28/2008 9:12 AM CDT Temperature - - Respiratory Rate - - Oxygen Saturation - - Inhaled Oxygen Concentration - - Weight 106 kg (233 lb 9.6 oz) 01/28/2008 9:12 AM CDT Height 162.6 cm (5' 4) 01/28/2008 9:12 AM CDT Body Mass Index 40.1 01/28/2008 9:12 AM CDT documented in this encounter Patient Instructions Patient InstructionsMarcello Monterroso - 01/28/2008 9:42 AM CDT Refer to ENT for evaluation of swallowing problems Marcello Monterroso MD documented in this encounter Consult Notes Marcello Monterroso - 01/28/2008 12:00 AM CDT SUBJECTIVE: This 52-year-old woman with multiple sclerosis comes in today because she is having trouble swallowing. Yary says she can drink and eat her meals without difficulty, but occasionally dried fragments of cracker or toast will strike the back of her throat and cause her throat to seize up. It is very frightening for her, she feels she cannot draw a breath. Fortunately this clears up before she becomes too ill. EXAM: Examination showed her palate to elevate in the midline. Tongue was full and protrudes midline. She was able to swallow liquids normally here in the office. IMPRESSION: Dysphagia. COMMENT: I do not believe this is related to MS. It is not related to any specific foods, so it does not sound like a food allergy. I would like ENT to see Yary and decide what, if anything further needs to be done. A / P 5sp cc: Marcello Monterroso MD documented in this encounter Plan of Treatment Scheduled Referrals Name Type Priority Associated Diagnoses Order S chedule EAR, NOSE, AND THROAT Referral Routine Dysphagia Ordere d: 01/28/2008 CONSULT-ADULT/PEDS documented as of this encounter Visit Diagnoses Diagnosis Dysphagia - Primary Dysphagia, unspecified documented in this encounter Care Teams Leave Coordinator Relationship Specialty Start Date End Date Unassigned, Provider PCP - General 01/12/00 08/29/[address] [place] [address] documented as of this encounter
--- OUTSIDE RECORDS SUMMARY | 2021-11-16 13:11 | XMS_ITS | Encounter Summary ---
:[address] [facility] Address [address] [place] [address] Care Team Providers Name Role Phone Unassigned, Provider Primary Care Provider Unavailable Encounter Details Date Type Department Care Team Description 10/11/2005 [facility], Eeg Rajan h I MEMORY LOSS EEG/EMG [address] [facility] [place] [address] Social History Tobacco Use Types Packs/Day Years [...] as of this encounter Visit Diagnoses Diagnosis Memory loss documented in this encounter Care Teams Hard Rock Miner Blasting Relationship Specialty Start Date End Date Unassigned, Provider PCP - General 01/12/00 08/29/[address] [place] [address] documented as of this encounter
--- OUTSIDE RECORDS SUMMARY | 2021-11-16 13:11 | XMS_ITS | Encounter Summary ---
:1955 Author Organization [facility] Address [address] [place] [address] Care Team Providers Name Role Phone Unassigned, Provider Primary Care Provider Unavailable Encounter Details Date Type Department Care Team Description 11/10/2010 Correspondence External to External, Provid er PATIENT [place] [address] Social History Tobacco Use Types Packs/Day Years Used Date Smoking Tobacco: Former Cigarettes 1 45 Comments: quit 5-6 months ago Alcohol Use Standard Drinks/Week Comments No 0 (1 standard drink = 0.6 oz pure alcoho l) Sex Assigned at Date Recorded Not on file documented as of this encounter Progress Notes Interface, In Chrtscr And Scan - 11/29/2010 10:44 AM CDT documented in this encounter Plan of Treatment Not on filedocumented as of this encounter Visit Diagnoses Not on filedocumented in this encounter Care Teams Stretching Machine Operator Relationship Specialty Start Date End Date Unassigned, Provider PCP - General 01/12/00 08/29/[address] [place] [address] documented as of this encounter
--- OUTSIDE RECORDS SUMMARY | 2021-11-16 13:11 | XMS_ITS | Encounter Summary ---
:1955 Author Organization [facility] Address [address] [place] [address] Care Team Providers Name Role Phone Unassigned, Provider Primary Care Provider Unavailable Reason for Visit Reason Onset Date Comments LETTER NEEDED 08/19/2007 Encounter Details Date Type Department Care Team Description 08/19/2007 Telephone [facility] Marcello Monterroso MD LETTER NEEDED [address] [place] [phone] Social History Tobacco Use Types Packs/Day Years Used Date Smoking Tobacco: Former Cigarettes 1 45 Comments: quit 5-6 months ago Alcohol Use Standard Drinks/Week Comments No 0 (1 standard drink = 0.6 oz pure alcoho l) Sex Assigned at Date Recorded Not on file documented as of this encounter Nursing Notes Myra Woodard - 08/19/2007 2:54 PM CDT Pt calling, stated fax number for Dr.Karl Sosa (primary) is [phone]- in order for send letter on gastric bypass (stated discussed during visit today, 08/18) documented in this encounter Plan of Treatment Not on filedocumented as of this encounter Visit Diagnoses Not on filedocumented in this encounter Care Teams Sugar Plantation Manager Relationship Specialty Start Date End Date Unassigned, Provider PCP - General 01/12/00 08/29/[address] [place] [address] documented as of this encounter
--- OUTSIDE RECORDS SUMMARY | 2021-11-16 13:11 | XMS_ITS | Encounter Summary ---
:1955 Author Organization [facility] Address [address] [address] Care Team Providers Name Role Phone Unassigned, Provider Primary Care Provider Unavailable Reason for Visit Reason Onset Date Comments BREATHING PROBLEM 01/19/2008 Encounter Details Date Type Department Care Team Description 01/19/2008 Telephone [facility] Marcello Monterroso MD BREATHING PROBLEM [address] [place], [place] [address] Social History Tobacco Use Types Packs/Day Years Used Date Smoking Tobacco: Former Cigarettes 1 45 Comments: quit 5-6 months ago Alcohol Use Standard Drinks/Week Comments No 0 (1 standard drink = 0.6 oz pure alcoho l) Sex Assigned at Date Recorded Not on file documented as of this encounter Nursing Notes Estefani Turcios - 01/19/2008 12:13 PM CDT Pt states she feels that she may have aspirated a piece of food. Pt states she is having trouble breathing and feels like her throat is closed off. Recommeded pt have someone drive her to the nearest ER or [facility] to be evaluated and treated. Pt states this occurs frequently and doesn't feel she needs to go to ER/UCC. Pt states she takes Ativan for anxiety. Recommeded pt go to ER/UCC now to be evaluated and treated for difficulty breathing and f/u with PCP. Pt expressed understanding. Pt states a familymember is able to drive her to [facility]. Estefani Turcios RN Myra Woodard - 01/19/2008 12:03 PM CDT Pt calling. Stated feels throat is closing in on her. documented in this encounter Plan of Treatment Not on filedocumented as of this encounter Visit Diagnoses Not on filedocumented in this encounter Care Teams Warp Dyeing Vat Tender Relationship Specialty Start Date End Date Unassigned, Provider PCP - General 01/12/00 08/29/[address] [place] [address] documented as of this encounter
--- OUTSIDE RECORDS SUMMARY | 2021-11-16 13:11 | XMS_ITS | Encounter Summary ---
:1955 Author Organization [facility] Address [address] [place] [address] Care Team Providers Name Role Phone Lew Grewal MD Primary Care Provider Reason for Visit Procedure/Equipment (Routine) - Incomplete Specialty Diagnoses / Procedures Referred By Contact Refer red To Contact Diagnoses Arthralgia, unspecified joint Primary osteoarthritis of both hands Kenrick Juarez MD Procedures XR Hand(s) Arthritis [address] [place], [place] [address] Referral ID Status Reason Start Date Expiration Date Visits V isits Requested Authorized [id number] Incomplete 01/12/2019 04/12/2020 1 1 Encounter Details Date Type Department Care Team Description 01/12/2019 Ancillary [place] Kenrick Juarez MD Arthralgia, unspecified joint; Procedure Radiology [address] Primary osteoarthritis of shavon th hands [address] [facility] [phone] Social History Tobacco Use Types Packs/Day Years Used Date Smoking Tobacco: Smoker, Current Status Unknown Cigarettes 1 45 Smokeless Tobacco: Never Alcohol Use Standard Drinks/Week Comments No 0 (1 standard drink = 0.6 oz pure alcoho l) Sex Assigned at Date Recorded Not on file documented as of this encounter Progress Notes Kenrick Juarez MD - 01/12/2019 2:15 PM CDT X-ray of the hands shows mild degenerative changes/osteoarthritis. No signs of joint erosions. documented in this encounter Plan of Treatment Not on filedocumented as of this encounter Procedures Procedure Name Priority Date/Time Associated Diagnosis Comme nts XR HANDS 1 VIEW Routine 01/12/2019 2:19 PM Arthralgia, unspeci fied Results for this BILAT ARTHRITIS CDT joint procedure are in Primary osteoarthritis the r esults of both hands section. documented in this encounter Results XR Hand(s) Arthritis (01/12/2019 2:19 PM CDT) Anatomical Region Laterality Modality Upper Extremity, Hand Digital Radiograph y Specimen (Source) Anatomical Collection Method Collection Time Re ceived Time Location / / Volume Laterality 01/12/2019 2:19 PM CDT Impressions 01/12/2019 3:24 PM CDT COMPARISON: ??None. FINDINGS: ??No evidence of an inflammato ry arthropathy in either hand. There is mild multifocal spurring involving multiple joints in both hands. Procedure Note Waylon Iniguez MD - 01/12/2019 IMPRESSION COMPARISON: None. FINDINGS: No evidence of an inflammatory arthropathy in either hand. There is mild multifocal spurring involving multiple joints in both hands. Kenrick Juarez MD RAD GD documented in this encounter Visit Diagnoses Diagnosis Arthralgia, unspecified joint Primary osteoarthritis of both hands documented in this encounter Care Teams Tank Welder Relationship Specialty Start Date End Date Lew Grewal MD PCP - General Family Practice 12/10/[address] [place] [address] [place]RISTINA MARTINEZ [address] documented as of this encounter
--- OUTSIDE RECORDS SUMMARY | 2021-11-16 13:12 | XMS_ITS | Encounter Summary ---
:1955 Author Organization [facility] Address [address] [place] [address] Care Team Providers Name Role Phone Unassigned, Provider Primary Care Provider Unavailable Encounter Details Date Type Department Care Team Description 12/29/2004 Scanned History External to External, Provid er [facility] [place] [address] Social History Tobacco Use Types Packs/Day Years Used Date Smoking Tobacco: Every Day Cigarettes 44 Comments: 4-5 cigarettes per day Alcohol Use Standard Drinks/Week Comments No 0 (1 standard drink = 0.6 oz pure alcoho l) Sex Assigned at Date Recorded Not on file documented as of this encounter Progress Notes External, Provider - 12/29/2004 12:00 AM CDT documented in this encounter Plan of Treatment Not on filedocumented as of this encounter Visit Diagnoses Not on filedocumented in this encounter Care Teams Ticket Sales Supervisor Relationship Specialty Start Date End Date Unassigned, Provider PCP - General 01/12/00 08/29/[address] [place] [address] documented as of this encounter
--- OUTSIDE RECORDS SUMMARY | 2021-11-16 13:12 | XMS_ITS | Encounter Summary ---
:1955 Author [facility] Address [address] [place] [address] Care Team Providers Name Role Phone Unassigned, Provider Primary Care Provider Unavailable Encounter Details Date Type Department Care Team Description 11/05/2003 Correspondence None Unknown, Physici an [facility] [address] [place] [address] (Wo rk) Social History Tobacco Use Types Packs/Day Years Used Date Smoking Tobacco: Never Assessed Sex Assigned at Date Recorded Not on file documented as of this encounter Progress Notes Unknown, Physician - 11/05/2003 12:00 AM CDT documented in this encounter Plan of Treatment Not on filedocumented as of this encounter Visit Diagnoses Not on filedocumented in this encounter Care Teams Truck Crane Operator Helper Relationship Specialty Start Date End Date Unassigned, Provider PCP - General 01/12/00 08/29/[address] [place] [address] documented as of this encounter
--- OUTSIDE RECORDS SUMMARY | 2021-11-16 13:12 | XMS_ITS | Encounter Summary ---
:1955 Author Organization [facility] Address [address] [place] [address] Care Team Providers Name Role Phone Unassigned, Provider Primary Care Provider Unavailable Encounter Details Date Type Department Care Team Description 11/03/2003 Orders Only [facility] Unknown, Physician [address] [place] [address] [place] [address] [phone] (Wo rk) Social History Tobacco Use Types Packs/Day Years Used Date Smoking Tobacco: Never Assessed Sex Assigned at Date Recorded Not on file documented as of this encounter Procedure Notes Unknown, Physician - 11/03/2003 12:00 AM CDTAssociated Order(s): CT SC documented in this encounter Plan of Treatment Not on filedocumented as of this encounter Procedures Procedure Name Priority Date/Time Associated Diagnosis Comme nts CT SC 11/03/2003 12:00 AM Results for this CDT procedure are i n the results section. CT LMTD/LOCLZD F-UP 11/03/2003 Results for this STD procedure are i n the results section. documented in this encounter Results CT SC (11/03/2003 12:00 AM CDT) Anatomical Region Laterality Modality Other Narrative 11/03/2003 12:00 AM CDT This result has an attachment that is no t available. Ordered by an unspecified provider. Transcriptions Unknown, Physician - 11/03/2003 12:00 AM CDT Physician Unknown DUMMY/OTHER/AR documented in this encounter Visit Diagnoses Not on filedocumented in this encounter Care Teams Darkroom Worker Relationship Specialty Start Date End Date Unassigned, Provider PCP - General 01/12/00 08/29/11 [address] [id number] documented as of this encounter
--- OUTSIDE RECORDS SUMMARY | 2021-11-16 13:12 | XMS_ITS | Encounter Summary ---
:1955 Author Organization [facility] Address [address] [place] [address] Care Team Providers Name Role Phone Unassigned, Provider Primary Care Provider Unavailable Encounter Details Date Type Department Care Team Description 03/04/2001 Office Visit [facility] Alonso Frank, KASSANDRA AL [facility] MD [facility] [address] [place] [address] (Wo rk) Social History Tobacco Use Types Packs/Day Years Used Date Smoking Tobacco: Never Assessed Sex Assigned at Date Recorded Not on file documented as of this encounter Progress Notes EverAnitha - 03/04/2001 12:00 AM CSTSubjective: The patient is a 45 year old female with multiple sclerosis here today with complaints of an abscessed tooth. She has an appointment tomorrow with the [facility] dentist. She is just getting over a recent flare of her MS and is worried that this infection is starting to cause another flare. She has had a couple day history of pain in her right upper molar. She felt feverish at home but hasn't taken her temperature. She has some Tylenol #3 from her last MS exacerbation which she has been taking but without much help. Objective: WT: 223, BP: 118/84, pulse 80, temp 97.9. In general she is an alert female who is tearful and appears uncomfortable. On exam the right side of her face appears a little swollen compared to the left. There's no erythema. There is minimal erythema surrounding the upper right molar and it's tender to touch. She has no significant cervical adenopathy. Assessment: Probable tooth abscess. Plan: Pen Vee K 500-mg t.i.d. for a week and Percocet #30 1-2 po q4-6h prn. Patient was precepted with Dr. Hoover. jade Dictated: 03/04/2001 12:27:02 Transcribed: 03/07/2001 15:27:50 Doc #: [id number] PATIENT NAME: YARY PHILIPPE VISIT DATE: 03/04/2001 AGE: 45Y [facility] Provider Signature Page 1 Confidential Medical Record [facility] [address] [place] [address] ?? [place] [address] Page Patient: YARY PHILIPPE Visit Date: 03/04/2001 Clara Curtis DO Date of : 1955 VISIT DATE: 03/04/2001 AGE: 45Y [facility] Provider Signature WORKER GRAIN documented in this encounter Plan of Treatment Not on filedocumented as of this encounter Visit Diagnoses Diagnosis Periapical abscess without sinus documented in this encounter Care Teams Strip Winder Relationship Specialty Start Date End Date Unassigned, Provider PCP - General 01/12/00 08/29/[address] [place] [address] documented as of this encounter
--- OUTSIDE RECORDS SUMMARY | 2021-11-16 13:12 | XMS_ITS | Encounter Summary ---
:1955 Author Organization [facility] Address [address] [place] [address] Care Team Providers Name Role Phone Unassigned, Provider Primary Care Provider Unavailable Encounter Details Date Type Department Care Team Description 11/08/2003 Correspondence None Unknown, Chetan Ambrosio MOHINDER to [facility] [address] [place] [address] (Wo rk) Social History Tobacco Use Types Packs/Day Years Used Date Smoking Tobacco: Never Assessed Sex Assigned at Date Recorded Not on file documented as of this encounter Progress Notes Unknown, Physician - 11/08/2003 12:00 AM CDT documented in this encounter Plan of Treatment Not on filedocumented as of this encounter Visit Diagnoses Not on filedocumented in this encounter Care Teams Hairspring Assembler Relationship Specialty Start Date End Date Unassigned, Provider PCP - General 01/12/00 08/29/11 [address] [place] [address] documented as of this encounter
--- OUTSIDE RECORDS SUMMARY | 2021-11-16 13:12 | XMS_ITS | Encounter Summary ---
:1955 Author [facility] Address [address], [place] [address] Care Team Providers Name Role Phone Unassigned, Provider Primary Care Provider Unavailable Encounter Details Date Type Department Care Team Description 09/18/2005 Notes/Orders [facility] [address] Stacie Bautista, KANE RN, [facility] GEOPOLITICS TEACHER 401 [facility]. [address] [place] [address] [place] [address] [phone] (Wo rk) Social History Tobacco Use Types Packs/Day Years Used Date Smoking Tobacco: Every Day Cigarettes 1 45 Comments: States as of 09-18-05 she is no t buying any more cigarettes Alcohol Use Standard Drinks/Week Comments No 0 (1 standard drink = 0.6 oz pure alcoho l) Sex Assigned at Date Recorded Not on file documented as of this encounter Progress Notes 09/18/2005 11:59 PM CDT Quick Note by: STACIE BAUTISTA on 09/20/05 at 6:22 AM. Labs from 09-18-05 within acceptable limits other than elevated glucose and HgbA1C. Yary Call will be notified via phone of results. Stacie Bautista NP Quick Note by: STACIE BAUTISTA on 09/19/05 at 6:33 AM. Labs from 09-18-05 that are currently back show elevated glucose of 241. Yary Call will be notified via phone of results and recommended to contact her PCP. Will watch for remaining lab results to return. Stacie Bautista NP documented in this encounter Plan of Treatment Not on filedocumented as of this encounter Procedures Procedure Name Priority Date/Time Associated Comments Diagnosis COMPLETE BLOOD Routine 09/18/2005 2:29 PM Memory Loss Results for this COUNT-W/DIFF CDT procedure are i n the results section. BASIC METABOLIC PANEL Routine 09/18/2005 2:29 PM Memory Loss Results for this CDT procedure are i n the results section. VIT B12 & FOLATE Routine 09/18/2005 2:29 PM Memory Loss Resul ts for this CDT procedure are i n the results section. LYME ANTIBODY (REFLEX Routine 09/18/2005 2:29 PM Memory Loss Results for this TO LYME CONFIRMATORY CDT procedu re are in PANEL) the results section. OSCAR SCREEN Routine 09/18/2005 2:29 PM Memory Loss Results f or this CDT procedure are i n the results section. TSH, SENSITIVE (WITH Routine 09/18/2005 2:29 PM Memory Loss R esults for this REFLEX) CDT procedure are i n the results section. HGB A1C Routine 09/18/2005 2:29 PM Memory Loss Results f or this CDT procedure are i n the results section. ALT (SGPT) Routine 09/18/2005 2:29 PM Memory Loss Results f or this CDT procedure are i n the results section. AST Routine 09/18/2005 2:29 PM Memory Loss Results f or this CDT procedure are i n the results section. documented in this encounter Results (ABNORMAL) BASIC METABOLIC PANEL (09/18/2005 2:29 PM CDT) [facility] gist Method Time Signature BUN 13 10 - 26 [facility] mg/dl Sodium 139 135 - 145 [facility] mmol/L Potassium 4.6 3.5 - 5.3 [facility] mmol/L Chloride 104 95 - 105 [facility] mmol/L CO2 27 22 - 31 [facility] mmol/L Glucose 241 (H) 65 - 115 [facility] mg/dl Creatinine 0.9 0.6 - 1.3 [facility] mg/dl GFR, Estimated 70.2 >60 [facility] ml/min/1.7 3m2 GFR, Est., If >80.0 >60 [facility] Black ml/min/1.7 3m2 Calcium 9.3 8.2 - 10.0 [facility] mg/dl Anion Gap 8 7 - 17 [facility] (calc.) mmol/L Specimen Anatomical Collection Method Collection Time Receive d Time (Source) Location / / Volume Laterality 09/18/2005 2:29 PM 6 2:31 CDT PM CDT Stacie Bautista APRN, CNP LAB_1 Performing Organization Address [facility] [address] [facility] Phon e Number [facility] [phone] [facility] [address] [address] LYME ANTIBODY (09/18/2005 2:29 PM CDT) athologist Signature Lyme Antibody 0.46 <0.75 OD [facility] Ratio Comment: Negative Specimen Anatomical Collection Method Collection Time Receive d Time (Source) Location / / Volume Laterality 09/18/2005 2:29 PM 6 2:31 CDT PM CDT Stacie Bautista APRN, CNP LAB_1 Performing Organization Address [facility] [address]/[facility] Phon e Number [facility] [phone] [address] TSH, SENSITIVE (WITH REFLEX) (09/18/2005 2:29 PM CDT) athologist Signature TSH, with 2.46 0.3 - 5.0 [facility] Reflex uIU/ml Specimen Anatomical Collection Method Collection Time Receive d Time (Source) Location / / Volume Laterality 09/18/2005 2:29 PM 6 2:31 CDT PM CDT Stacie Bautista APRN, CNP LAB_1 Performing Organization Address [facility] [address]/[facility] Phon e Number [facility] [phone] [facility] [address] [place] [address] (ABNORMAL) HEMOGRAM/PLTS/DIFF (09/18/2005 2:29 PM CDT) [facility] gist Method Time Signature WBC 10.5 4.0 - 11.0 [facility] k/ul RBC 4.35 4.0 - 5.2 [facility] M/ul Hemoglobin 13.6 12.0 - [facility] 16.0 g/dl HCT 40.8 36.0 - [facility] 46.0 % MCV 93.9 80 - 100 [facility] fl MCH 31.3 26 - 34 pg [facility] MCHC 33.4 32 - 36 % [facility] RDW 13.3 11.5 - [facility] 14.5 % Platelets 354 150 - 450 [facility] k/ul PMN/Band 45 43 - 72 % [facility] Lymph 43 17 - 43 % [facility] Culberson 5 4 - 12 % [facility] Eos 6 0 - 8 % [facility] Baso 1 0 - 1 % [facility] Neutrophil 4.7 1.8 - 7.7 [facility] Absolute k/ul Lymph Absolute 4.5 1.0 - 4.8 [facility] k/ul [place] Absolute 0.5 0.1 - 0.7 [facility] k/ul Eos Absolute 0.7 (H) 0.0 - 0.5 [facility] k/ul Baso Absolute 0.1 0.0 - 0.2 [facility] k/ul Specimen Anatomical Collection Method Collection Time Receive d Time (Source) Location / / Volume Laterality 09/18/2005 2:29 PM 6 2:31 CDT PM CDT Stacie Bautista APRN, CNP LAB_1 Performing Organization Address [facility] [address]/[facility] Phon e Number [facility] [phone] [phone] OSCAR SCREEN (09/18/2005 2:29 PM CDT) athologist Signature OSCAR Screen Negative NEG [facility] Specimen Anatomical Collection Method Collection Time Receive d Time (Source) Location / / Volume Laterality 09/18/2005 2:29 PM 6 2:31 CDT PM CDT Stacie Bautista APRN, CNP LAB_1 Performing Organization Address [facility] [address]/[facility] Phon e Number [facility] [phone] [phone] VIT B12 & FOLATE (09/18/2005 2:29 PM CDT) athologist Signature Vitamin B12 235 211 - 911 [facility] pg/ml Folate 5.3 >3.0 ng/ml [facility] Specimen Anatomical Collection Method Collection Time Receive d Time (Source) Location / / Volume Laterality 09/18/2005 2:29 PM 6 2:31 CDT PM CDT Stacie Bautista APRN, CNP LAB_1 Performing Organization Address [facility] [address]/[facility] Phon e Number [facility] [phone] [facility] [address] [place] [address] (ABNORMAL) HGB A1C (09/18/2005 2:29 PM CDT) athologist Signature Hgb A1c 7.7 (H) 4.3 - 6.1 % [facility] Specimen Anatomical Collection Method Collection Time Receive d Time (Source) Location / / Volume Laterality 09/18/2005 2:29 PM 6 2:31 CDT PM CDT Stacie Bautista APRN, CNP LAB_1 Performing Organization Address [facility] [address] [facility] Phon e Number [facility] [phone] [address] AST (SGOT) (09/18/2005 2:29 PM CDT) athologist Signature AST (SGOT) 24 <45 U/L [facility] Specimen Anatomical Collection Method Collection Time Receive d Time (Source) Location / / Volume Laterality 09/18/2005 2:29 PM 6 2:31 CDT PM CDT Stacie Bautista APRN, CNP LAB_1 Performing Organization Address [facility] [address] [facility] Phon e Number [facility] [phone] [address] ALT (SGPT) (09/18/2005 2:29 PM CDT) athologist Signature ALT (SGPT) 21 0 - 55 U/L [facility] Specimen Anatomical Collection Method Collection Time Receive d Time (Source) Location / / Volume Laterality 09/18/2005 2:29 PM 6 2:31 CDT PM CDT Stacie Bautista APRN, MITCH LAB_1 Performing Organization Address City/State/ZIP Code Phon e Number [facility] [phone] [facility] [address] [address] documented in this encounter Visit Diagnoses Diagnosis Memory loss documented in this encounter Care Teams Automobile Accessories Installer Relationship Specialty Start Date End Date Unassigned, Provider PCP - General 01/12/00 08/29/11 [address] [place] [address] documented as of this encounter
--- OUTSIDE RECORDS SUMMARY | 2021-11-16 13:12 | XMS_ITS | Encounter Summary ---
:1955 Author Organization [facility] Address [address] [place] [address] Care Team Providers Name Role Phone Unassigned, Provider Primary Care Provider Unavailable Encounter Details Date Type Department Care Team Description 09/06/2005 Correspondence None Jesu Lindsay, Provider consent to release Social History Tobacco Use Types Packs/Day Years Used Date Smoking Tobacco: Every Day Cigarettes 45 Comments: 4-5 cigarettes per day Alcohol Use Standard Drinks/Week Comments No 0 (1 standard drink = 0.6 oz pure alcoho l) Sex Assigned at Date Recorded Not on file documented as of this encounter Progress Notes Jesu Lindsay, Provider - 09/06/2005 12:00 AM CDT documented in this encounter Plan of Treatment Not on filedocumented as of this encounter Visit Diagnoses Not on filedocumented in this encounter Care Teams Outgoing Inspector Relationship Specialty Start Date End Date Unassigned, Provider PCP - General 01/12/00 08/29/[address] [place] [address] documented as of this encounter
--- OUTSIDE RECORDS SUMMARY | 2021-11-16 13:12 | XMS_ITS | Encounter Summary ---
:1955 Author Organization [facility] Address [address], [place] [address] Care Team Providers Name Role Phone Unassigned, Provider Primary Care Provider Unavailable Reason for Visit Reason Onset Date Comments MULTIPLE SCLEROSIS 08/28/2005 Encounter Details Date Type Department Care Team Description 08/28/2005 Telephone [facility] Marcello Monterroso MD MULTIPLE SCLEROSIS [address] [place], [place] [address] Social History Tobacco Use Types Packs/Day Years Used Date Smoking Tobacco: Every Day Cigarettes 45 Comments: 4-5 cigarettes per day Alcohol Use Standard Drinks/Week Comments No 0 (1 standard drink = 0.6 oz pure alcoho l) Sex Assigned at Date Recorded Not on file documented as of this encounter Nursing Notes 08/28/2005 11:59 PM CDT >> APRIL Phan August 29, 2005 6:24 PM Pt has upcoming appt on 09/06. Pt will bring in list of concerns. Few concerns she is having: sleep apnea, problems bringing air into lungs, but able to push air out, increased confusion by the end of the day, and muscle spasms in the neck and back. Pt advised that if symptoms intolerable she should see primary physician. Other dasilva patient will be seen on September [address] Su, possible ENT referral (unless seen sooner - pt denies anytroubles with swallowing. Pt has no troubles with speaking and has no troubles with breathing whil espeaking on the phone). Pt is also working with pharmacy regarding her medication. April Hawkins RN >> VALERIE Fierro August 28, 2005 3:34 PM Left message to call back. Valerie Jimenez RN >> MARCELLO Fierro August 28, 2005 11:14 AM These sx's may be more related to meds or not sleeping. Don't really sound like MS problem. Any sx's of infection, UTI, fever, etc? If so see pcp.Marcello Monterroso MD >> VALERIE Fierro August 28, 2005 10:38 AM Called patient, who said she is falling more often the last few weeks. Also c/o feeling woozy, sleep ing poorly and having episodes of confusion the last 3-4 days. Patient has been off Avonex injection s the past 2 months because she said [employer] Security changed their regulations and she hasn't beeen able to get it from the pharmacy since then. Patient has a 09-[address] Monterroso. other current meds: Amitriptyline 50 mg : 2 po at hs, Tricor 145 mg qd, Depakote 1000 mg q hs, glipizide ER 5 mg qd, Vytorin 10-40 mg po qd, cymbalta 60mg qd, Baclofen 10 m to 2 qd and Nadolol 120 mg qd. Please advise. Valerie Jimenez, RN >> ARTIS Fierro August 28, 2005 8:54 AM pt has been falling more often; also, increased confused documented in this encounter Plan of Treatment Not on filedocumented as of this encounter Visit Diagnoses Not on filedocumented in this encounter Care Teams Timber Bucker Relationship Specialty Start Date End Date Unassigned, Provider PCP - General 01/12/00 08/29/[address] [place] [address] documented as of this encounter
--- OUTSIDE RECORDS SUMMARY | 2021-11-16 13:12 | XMS_ITS | Encounter Summary ---
:1955 Author Organization [facility] Address [address] [place] [address] Care Team Providers Name Role Phone Unassigned, Provider Primary Care Provider Unavailable Encounter Details Date Type Department Care Team Description 10/26/2004 Telephone [facility] Marcello Monterroso MD [address] [place], [place] [address] Social History Tobacco Use Types Packs/Day Years Used Date Smoking Tobacco: Every Day Cigarettes 45 Comments: 4-5 cigarettes per day Alcohol Use Standard Drinks/Week Comments No 0 (1 standard drink = 0.6 oz pure alcoho l) Sex Assigned at Date Recorded Not on file documented as of this encounter Nursing Notes 10/26/2004 11:59 PM CDT >> KEARA ALLEN Duyen Oct 26, 2004 11:54 AM Encounter initiated. documented in this encounter Plan of Treatment Not on filedocumented as of this encounter Visit Diagnoses Not on filedocumented in this encounter Care Teams Senior Counsel Commercial Relationship Specialty Start Date End Date Unassigned, Provider PCP - General 01/12/00 08/29/[address] [place] [address] documented as of this encounter
--- OUTSIDE RECORDS SUMMARY | 2021-11-16 13:12 | XMS_ITS | Encounter Summary ---
:1955 Author Organization [facility] Address [address] [place] [address] Care Team Providers Name Role Phone No Primary/Referring, Phy Primary Care Provider Unavailable Encounter Details Date Type Department Care Team Description 02/07/2001 Orders Only Fredis Yan MD [address] [place], [place] [phone] [place] [address] [phone] (Wo rk) Social History Tobacco Use Types Packs/Day Years Used Date Smoking Tobacco: Never Assessed Sex Assigned at Date Recorded Not on file documented as of this encounter Plan of Treatment Not on filedocumented as of this encounter Procedures Procedure Name Priority Date/Time Associated Diagnosis Comme nts HEMOGRAM & Waiting 02/07/2001 5:36 PM Results f or this PLATELETS EMS MANAGER procedure are i n the results section. BASIC METABOLIC Waiting 02/07/2001 5:36 PM Result s for this PANEL EMS MANAGER procedure are i n the results section. documented in this encounter Results (ABNORMAL) BASIC METABOLIC PANEL (02/07/2001 5:36 PM EMS MANAGER) P athologist Signature BUN 17 10 - 26 [facility] mg/dl Sodium 134 (L) 135 - 145 [facility] mmol/L Potassium 3.9 3.5 - 5.3 [facility] mmol/L Chloride 99 95 - 105 [facility] mmol/L CO2 25 22 - 31 [facility] mmol/L Glucose 116 (H) 65 - 115 [facility] mg/dl Creatinine 0.7 0.5 - 1.2 [facility] mg/dl Calcium 8.9 8.5 - 10.5 [facility] mg/dl Anion Gap 10 7 - 17 [facility] (calc.) mmol/L Specimen Anatomical Collection Method Collection Time Receive d Time (Source) Location / / Volume Laterality 02/07/2001 5:36 PM 1 5:51 EMS MANAGER PM EMS MANAGER Fredis Simmons MD LAB_1 Performing Organization Address [facility] e Number [address] [address] [place], [place] [phone] HEMOGRAM+PLATELETS (02/07/2001 5:36 PM EMS MANAGER) P athologist Signature WBC 10.2 4.5 - 11.0 [facility] k/ul RBC 4.15 4.0 - 5.2 [facility] M/ul Hemoglobin 13.3 12.0 - 16.0 [facility] g/dl HCT 39.5 36.0 - 46.0 [facility] % MCV 95.2 80 - 100 fl [facility] MCH 32.0 26 - 34 pg [facility] MCHC 33.6 32 - 36 % [facility] RDW 13.0 11.5 - 14.5 [facility] % PLTS 331 150 - 450 [facility] k/ul Specimen Anatomical Collection Method Collection Time Receive d Time (Source) Location / / Volume Laterality 02/07/2001 5:36 PM 1 5:51 EMS MANAGER PM EMS MANAGER Fredis Simmons MD LAB_1 Performing Organization Address [facility] e Number [address] [address] [place], [place] [phone] documented in this encounter Visit Diagnoses Not on filedocumented in this encounter Care Teams Rubber Molder Relationship Specialty Start Date End Date No Primary/Referring, Phy PCP - General 08/30/11 documented as of this encounter
--- OUTSIDE RECORDS SUMMARY | 2021-11-16 13:12 | XMS_ITS | Encounter Summary ---
:1955 Author [facility] Address [address] [address] Care Team Providers Name Role Phone Unassigned, Provider Primary Care Provider Unavailable Reason for Visit Reason Onset Date Comments LAB RESULTS 09/18/2005 elevated blood gluco se of 241 Encounter Details Date Type Department Care Team Description 09/19/2005 Telephone [facility] 401 Stcaie Bautista [place] B RESULTS ([facility] MFT, GLOBAL MANAGER blood glucose of 241) 401 [facility]. [address] [place] [address] [place], [place] [phone] [id number] Social History Tobacco Use Types Packs/Day Years Used Date Smoking Tobacco: Every Day Cigarettes 1 45 Comments: States as of 09-18-05 she is no t buying any more cigarettes Alcohol Use Standard Drinks/Week Comments No 0 (1 standard drink = 0.6 oz pure alcoho l) Sex Assigned at Date Recorded Not on file documented as of this encounter Nursing Notes 09/19/2005 11:59 PM CDT >> APRIL WHITMAN Fri Sep 21, 2005 3:15 PM Pt is aware of blood sugars. Pt states she see primary doctor routinely and they are trying to elimi jacklyn some of the medications that is making her crave foods. Pt states with her MS it is hard to exe rcise. Pt does have plan to start to use a swimming pool for her exercise. Pt encourage to do that,explained that this would be good exercise for her and with watching her diet she can get better co ntrol of her diabetes. April hWitman RN >> ARTIS DIXON Fri Sep 21, 2005 3:06 PM pt returned call, same number >> APRIL WHITMAN SatSep 21, 2005 1:01 PM Left message to call back. April Whitman RN >> STACIE BAUTISTA SatSep 21, 2005 10:34 AM Please attempt to reach her today. Stacie Bautista NP >> STACIE BAUTISTA [facility] Sep 20, 2005 6:24 AM Please let her know when she calls back that all of the labs done on 09-18-05 were within acceptablelimits other than her elevated glucose and she has an elevated Hgb A1C of 7.7. She should speak wit h her PCP re: her blood sugar control. Stacie Bautista NP >> APRIL WHITMAN SatSep 19, 2005 11:24 AM Left message to call back. April Whitman RN >> STACIE BAUTISTA SatSep 19, 2005 6:39 AM Please call Yary Call. Labs from 09-18-05 that are currently back show elevated glucose of 241. Yary Call will be notified via phone of results and recommended to contact her PCP for further eval if needed. Please ask if she checks her blood sugars at home at all. Will watch for remaininglab results to return. Stacie Bautista NP documented in this encounter Plan of Treatment Not on filedocumented as of this encounter Visit Diagnoses Not on filedocumented in this encounter Care Teams Molding Engineer Relationship Specialty Start Date End Date Unassigned, Provider PCP - General 01/12/00 08/29/[address] [place] [id number] documented as of this encounter
--- OUTSIDE RECORDS SUMMARY | 2021-11-16 13:12 | XMS_ITS | Encounter Summary ---
:1955 Author Organization [facility] Address [address] [place] [address] Care Team Providers Name Role Phone Unassigned, Provider Primary Care Provider Unavailable Encounter Details Date Type Department Care Team Description 11/05/2003 Correspondence None Unknown, Physici an [facility] [address] [place] [address] (Wo rk) Social History Tobacco Use Types Packs/Day Years Used Date Smoking Tobacco: Never Assessed Sex Assigned at Date Recorded Not on file documented as of this encounter Progress Notes Unknown, Physician - 11/05/2003 12:00 AM CDT documented in this encounter Plan of Treatment Not on filedocumented as of this encounter Visit Diagnoses Not on filedocumented in this encounter Care Teams Social Media Marketing Manager Relationship Specialty Start Date End Date Unassigned, Provider PCP - General 01/12/00 08/29/11 [address] [place] [address] documented as of this encounter
--- OUTSIDE RECORDS SUMMARY | 2021-11-16 13:12 | XMS_ITS | Encounter Summary ---
:1955 Author Organization [facility] Address [address] [place] [address] Care Team Providers Name Role Phone No Primary/Referring, Phy Primary Care Provider Unavailable Encounter Details Date Type Department Care Team Description 02/07/2001 Orders Only Fredis Yan MD [address] [place], [place] [phone] [place] [address] [phone] (Wo rk) Social History Tobacco Use Types Packs/Day Years Used Date Smoking Tobacco: Never Assessed Sex Assigned at Date Recorded Not on file documented as of this encounter Plan of Treatment Not on filedocumented as of this encounter Procedures Procedure Name Priority Date/Time Associated Comments Diagnosis UA, MICROSCOPIC IF Waiting 02/07/2001 5:36 PM Res ults for this MEETS CRITERIA RN IV THERAPY procedure are in the results section. UA MACRO BILLING Routine 02/07/2001 5:36 PM Resul ts for this RN IV THERAPY procedure are i n the results section. documented in this encounter Results UA MICROSCOPIC IF (02/07/2001 5:36 PM RN IV THERAPY) [facility] Method Time Signature Urine Microscopic [facility] Comments exam not indicated Urine Color Yellow [facility] Urine Clarity Clear [facility] Specific 1.011 1.005 - [facility] [place],Ur 1.030 pH, Urine 5.0 4.5 - 8.0 [facility] Protein, Neg mg/dl [facility] Urine Qual Glucose, Neg mg/dl [facility] Urine Qual Ketones, Neg mg/dl [facility] Urine Urobil, Urine 0.2 0.2 - 1.0 [facility] Qual EU/dl Bilirubin, Neg [facility] Urine Blood, Urine Neg [facility] Nitrite, Neg [facility] Urine Leukocyte Neg [facility] Est., Ur Specimen Anatomical Collection Method Collection Time Receive d Time (Source) Location / / Volume Laterality 02/07/2001 5:36 PM 1 5:49 RN IV THERAPY PM RN IV THERAPY Fredis Simmons MD LAB_1 Performing Organization Address [facility]/ZIP [facility] Phon e Number [address] [address] [place], [place] [phone] UA MACRO BILLING (02/07/2001 5:36 PM RN IV THERAPY) [facility] gist Method Time Signature Bill, UA Billed for [facility] Macroscopic [facility] Performed Specimen Anatomical Collection Method Collection Time Receive d Time (Source) Location / / Volume Laterality 02/07/2001 5:36 PM 1 5:49 RN IV THERAPY PM RN IV THERAPY Fredis Simmons MD LAB_1 Performing Organization Address [facility] Phon e Number [address] [address] [place], [place] [phone] documented in this encounter Visit Diagnoses Not on filedocumented in this encounter Care Teams Supervisor Blood Relationship Specialty Start Date End Date No Primary/Referring, Phy PCP - General 08/30/11 documented as of this encounter
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
--- OUTSIDE RECORDS SUMMARY | 2021-11-16 13:12 | XMS_ITS | Encounter Summary ---
:1955 Author Organization [facility] Address [address] [place] [address] Care Team Providers Name Role Phone Unassigned, Provider Primary Care Provider Unavailable Reason for Visit Reason Onset Date Comments Other 12/22/2004 Encounter Details Date Type Department Care Team Description 12/22/2004 Telephone [facility] Marcello Monterroso MD Other [address] [phone] Social History Tobacco Use Types Packs/Day Years Used Date Smoking Tobacco: Every Day Cigarettes 45 Comments: 4-5 cigarettes per day Alcohol Use Standard Drinks/Week Comments No 0 (1 standard drink = 0.6 oz pure alcoho l) Sex Assigned at Date Recorded Not on file documented as of this encounter Nursing Notes 12/22/2004 11:59 PM CDT >> ANDREINA ESQUIVEL Fri Dec 22, 2004 2:37 PM Refaxed Andreina Esquivel RN >> LELIA KNIGHT Fri Dec 22, 2004 1:22 PM Francisco calling to let us know that when he received the first fax it looked shrunk and the date was n ot readable. Please re-fax certificate of medical ness. to #[phone] documented in this encounter Plan of Treatment Not on filedocumented as of this encounter Visit Diagnoses Not on filedocumented in this encounter Care Teams Commission Broker Relationship Specialty Start Date End Date Unassigned, Provider PCP - General 01/12/00 08/29/[address] [place] [address] documented as of this encounter
--- OUTSIDE RECORDS SUMMARY | 2021-11-16 13:12 | XMS_ITS | Encounter Summary ---
:1955 Author Organization [facility] Address [address] [place] [address] Care Team Providers Name Role Phone Unassigned, Provider Primary Care Provider Unavailable Encounter Details Date Type Department Care Team Description 02/10/2001 Office Visit [facility] Alonso Hoover, ENURESIS NOS; [facility] PROLAPSE OF VAGINAL WALL [facility] [address] [place], [place] [address] Social History Tobacco Use Types Packs/Day Years Used Date Smoking Tobacco: Never Assessed Sex Assigned at Date Recorded Not on file documented as of this encounter Plan of Treatment Not on filedocumented as of this encounter Visit Diagnoses Diagnosis Unspecified urinary incontinence 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
--- OUTSIDE RECORDS SUMMARY | 2021-11-16 13:12 | XMS_ITS | Encounter Summary ---
:1955 Author Organization [facility] Address [address] [place] [address] Care Team Providers Name Role Phone Unassigned, Provider Primary Care Provider Unavailable Encounter Details Date Type Department Care Team Description 09/12/2004 Correspondence [facility] Marcello Monterroso, CERTIFICATE OF MEDICAL [address] Gabbi [place] NECESSITY/PATIENT [place], [place] [address] FUNCTIONAL ASSESSMENT [phone] Social History Tobacco Use Types Packs/Day Years Used Date Smoking Tobacco: Every Day Cigarettes 45 Comments: 4-5 cigarettes per day Alcohol Use Standard Drinks/Week Comments No 0 (1 standard drink = 0.6 oz pure alcoho l) Sex Assigned at Date Recorded Not on file documented as of this encounter Progress Notes Marcello Monterroso - 09/12/2004 12:00 AM CDT documented in this encounter Plan of Treatment Not on filedocumented as of this encounter Visit Diagnoses Not on filedocumented in this encounter Care Teams Store Manager Relationship Specialty Start Date End Date Unassigned, Provider PCP - General 01/12/00 08/29/[address] [place] [address] documented as of this encounter
--- OUTSIDE RECORDS SUMMARY | 2021-11-16 13:12 | XMS_ITS | Encounter Summary ---
:1955 Author Organization [facility] Address [address] [place] [address] Care Team Providers Name Role Phone Unassigned, Provider Primary Care Provider Unavailable Encounter Details Date Type Department Care Team Description 07/07/2004 Correspondence [facility] Marcello Monterroso, LETTER STATING TO CALL [address] Romy Seo MD WHEN APPT CANCEL [place] [phone] Social History Tobacco Use Types Packs/Day Years Used Date Smoking Tobacco: Never Assessed Sex Assigned at Date Recorded Not on file documented as of this encounter Progress Notes Marcello Monterroso - 07/07/2004 12:00 AM CDT documented in this encounter Plan of Treatment Not on filedocumented as of this encounter Visit Diagnoses Not on filedocumented in this encounter Care Teams Hat And Cap Sewer Relationship Specialty Start Date End Date Unassigned, Provider PCP - General 01/12/00 08/29/11 [address] [place] [address] documented as of this encounter
--- OUTSIDE RECORDS SUMMARY | 2021-11-16 13:12 | XMS_ITS | Encounter Summary ---
:1955 Author Organization [facility] Address [address] [place] [address] Care Team Providers Name Role Phone Unassigned, Provider Primary Care Provider Unavailable Encounter Details Date Type Department Care Team Description 12/06/2004 Correspondence External to Marcello Monterroso MD CERTIF ICATION AND MEDICAL NECESSITY Social History Tobacco Use Types Packs/Day Years Used Date Smoking Tobacco: Every Day Cigarettes 45 Comments: 4-5 cigarettes per day Alcohol Use Standard Drinks/Week Comments No 0 (1 standard drink = 0.6 oz pure alcoho l) Sex Assigned at Date Recorded Not on file documented as of this encounter Progress Notes Marcello Monterroso - 12/06/2004 12:00 AM CDT documented in this encounter Plan of Treatment Not on filedocumented as of this encounter Visit Diagnoses Not on filedocumented in this encounter Care Teams Guide Visitor Relationship Specialty Start Date End Date Unassigned, Provider PCP - General 01/12/00 08/29/[address] [place] [address] documented as of this encounter
--- OUTSIDE RECORDS SUMMARY | 2021-11-16 13:12 | XMS_ITS | Encounter Summary ---
:1955 Author Organization Formerly [facility], [facility] Address [address] [place] [address] Care Team Providers Name Role Phone Unassigned, Provider Primary Care Provider Unavailable Encounter Details Date Type Department Care Team Description 11/05/2003 Correspondence None Unknown, Physici an [facility] [address] [place] [address] (Wo rk) Social History Tobacco Use Types Packs/Day Years Used Date Smoking Tobacco: Never Assessed Sex Assigned at Date Recorded Not on file documented as of this encounter Progress Notes Unknown, Physician - 11/05/2003 12:00 AM CDT documented in this encounter Plan of Treatment Not on filedocumented as of this encounter Visit Diagnoses Not on filedocumented in this encounter Care Teams Deputy Clerk Of Court Relationship Specialty Start Date End Date Unassigned, Provider PCP - General 01/12/00 08/29/11 [address] [place] [address] documented as of this encounter
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
--- OUTSIDE RECORDS SUMMARY | 2021-11-16 13:12 | XMS_ITS | Encounter Summary ---
:1955 Author Organization [facility] Address [address] [place] [id number] Care Team Providers Name Role Phone Unassigned, Provider Primary Care Provider Unavailable Reason for Visit Reason Onset Date Comments APPOINTMENT REQUEST 09/18/2005 Encounter Details Date Type Department Care Team Description 09/18/2005 Telephone [facility]RETT OINTMENT REQUEST Psychiatry Social History Tobacco Use Types Packs/Day Years Used Date Smoking Tobacco: Every Day Cigarettes 1 45 Comments: States as of 09-18-05 she is no t buying any more cigarettes Alcohol Use Standard Drinks/Week Comments No 0 (1 standard drink = 0.6 oz pure alcoho l) Sex Assigned at Date Recorded Not on file documented as of this encounter Nursing Notes 09/18/2005 11:59 PM CDT >> BECK Fierro Sep 18, 2005 2:38 PM Client was seen by Neurology this afternoon. They would like client seen by psychiatry. I did s chedule client for an intake with Dr. Gonzalez on afternoon, 09/20/05. The neurology depart ment with contact client with the appointment information. Beck Khanna RN BEVERAGE DISTILLER MANAGER OF CASE >> CHRISTINE Fierro Sep 18, 2005 2:23 PM ADRYAN AT THE [facility] CALLED, FOR THE RESOURCE NURSE TO MAKE A APPT FOR THIS PATIENT [facility] PHILIPPE IN 2 WEEKS. VIVIANE Sebastian 2 09/18/2005 2:23 PM documented in this encounter Plan of Treatment Not on filedocumented as of this encounter Visit Diagnoses Not on filedocumented in this encounter Care Teams Trading Analyst Relationship Specialty Start Date End Date Unassigned, Provider PCP - General 01/12/00 08/29/[address] [place] [id number] documented as of this encounter
--- OUTSIDE RECORDS SUMMARY | 2021-11-16 13:12 | XMS_ITS | Encounter Summary ---
:1955 Author Organization [facility] Address [address] [place] [id number] Care Team Providers Name Role Phone Unassigned, Provider Primary Care Provider Unavailable Encounter Details Date Type Department Care Team Description 10/31/2003 Office Visit Fransisco Sarabia MD [address] [place], [place] [id number] SKIN SENSATION DISTURB; Nereida Reyes MD [address] [place] [id number] STREP SORE THROAT; MULTIPLE SCLERO SIS; ACIDOSIS; ABNORMAL TOXICO LOGIC FINDING Social History Tobacco Use Types Packs/Day Years Used Date Smoking Tobacco: Never Assessed Sex Assigned at Date Recorded Not on file documented as of this encounter Discharge Summaries Julius Tanner - 10/31/2003 12:00 AM CDT DISCHARGE DIAGNOSES 1. Multiple sclerosis exacerbation. 2. Lactic acidosis of unknown etiology. 3. Tobacco abuse. 4. Bipolar disorder. PROCEDURE DURING HOSPITALIZATION 1. MRI/ MRA on 10/31/2003: Numerous T2 hyper-intense lesions in the deep periventricular white matter of bilateral hemispheres consistent with multiple sclerosis. No pathologic enhancement or diffuse signal abnormality. No acute infarct or hydrocephalus. 2. CT chest, abdomen, pelvis on 11/03/2003: Diffuse fatty infiltrate of the liver associated with hepatomegaly, diverticulosis. 3. Right upper quadrant abdominal ultrasound on 11/04/2003: Fatty infiltration of the liver. 4. Mammogram on 11/05/2003: No evidence for malignancy in either breast. HISTORY OF PRESENT ILLNESS, PAST MEDICAL HISTORY, PHYSICAL EXAMINATION: Please refer to dictated H&P. PERTINENT LABORATORY DATA: Admission sodium 136, potassium 5.3, chloride 102, bicarb 19, BUN 20, creatinine 0.8. Repeat sodium 134, potassium 4.5, chloride 100, bicarb 17, BUN 19, creatinine 0.7. ABG 7.41/36/63/22.2/92.5; on repeat, ABG 7.43/41/79/26.2 on room air. Initial lactate 4.3. AST 42, ALT 21, total bilirubin 0.4, alkaline phosphatase 101. INR 0.98. Albumin 4.7. Iron studies show ferritin 245, total iron 103, TIBC 377, percent-saturation 27. Blood alcohol level less than 0.01. Serum methanol negative. Serum ketones negative. Serum isopropanol negative. Ethylene glycol negative. Methemoglobin 0.5. Carbon monoxide level 0.5%; on recheck, 1.3%. Serum catechol norepinephrine 509, epinephrine 43, dopamine less than 10. Urine catechol epinephrine 5, norepinephrine 21, catechol-TT 26. UA 1.020 specific gravity; otherwise, negative. Hepatitis A antibody positive. IgM negative. Hepatitis B surface antigen negative; core antibody negative. Hepatitis C antibody negative. HIV serology negative. Salsalate level less than 2.5. Acetaminophen level 2. CK 53. Cyanide level less than 0.1. Urine toxicology positive for amitriptyline and nortriptyline and THC. Amitriptyline level 67. Nortriptyline level 25. Total cholesterol 217, triglycerides 170, HDL 52, LDL 131. HOSPITAL COURSE 1. Multiple sclerosis exacerbation: She had an MRA/ MRI at the time of her admission. Neurology was also consulted. She was treated with Solu-Medrol 1 g IV for a total of 5 days. She did develop significant hyperglycemia with this and was on Lantus 5 units subcu during the IV Solu-Medrol. She was then switched to Medrol Dosepak to take 2 packs simultaneously. Her symptoms of visual changes are somewhat improved. She will follow up with outpatient neurology. She is to continue her Avonex as previously. 2. Lactic acidosis: At the time of admission, her bicarb was 19. On recheck, it was 17. She had an anion gap of 53. This was worked up with an ABG and lactate; surprisingly the lactate was 4.3, although she appeared clinically otherwise well. This was rechecked and was found to be 4.8. She had a peak of her lactate to 6.2 and this slowly trended down to 4.3. However, again on recheck, her lactate was 4.3. Her lactic acidosis was worked up with checking liver function tests, coagulation studies and albumin which were all normal. She did have right upper quadrant ultrasound which showed a fatty liver, Hepatitis serologies were negative. HIV serology was also checked which was negative. Iron studies were also normal. UA was negative. Nephrology was curb sided and suggested workup for possible malignancy. A CT chest, abdomen and pelvis was done with findings as noted above. She also had a mammogram which was negative. She reported to have had a recent Pap smear with her primary care physician which was also negative. She does have a history of hysterectomy. Urine and serum catecholamines were checked and were normal as noted above. Methemoglobin was normal. Her serum was negative for carbon monoxide and for cyanide. She had no serum ketones or elevation of her CK. Acetaminophen and Tylenol levels as well as volatile alcohol levels were negative. She had a U-tox which was only positive for amitriptyline and its metabolite nortriptyline as well as THC which she had admitted to. Upon further questioning, she denied taking any ascorbic acid or aspirin. She noted her significant other takes metformin, but she has never taken this herself; and she was hyperglycemic. During her hospital stay, she denied any recent seizures or severe exercising. She denied taking any HIV medications. Her asthma was well controlled. She was not taking any herbal medications except for a cranberry pill. She wondered if her [id number] was poisoning her. Otherwise, there was nothing further elucidated from further history. Toxicology and PharmD were consulted and felt her medications did not play a role in her lactic acidosis. We also discussed these findings with the homeowner association manager of the laboratory who felt that this was highly unlikely to be error in terms of the machine as the chemistry quality control analyst was done on the machine twice daily and there has been no other incidents of elevated lactates. At the time of discharge, though her lactate remained elevated, she was clinically stable and was desiring to be discharged as she wanted to visit her mother who was a hospice patient. We felt it would be reasonable to discharge her and have her followed up by her primary care physician. She has been previously followed at [facility], and she was willing to have close followup at [facility] for her lactic acidosis as an outpatient. A colonoscopy can be considered, especially given a brother who has had recent findings on his colonoscopy. An EGD can also be done to complete the malignancy workup. 3. Bipolar disorder: She felt her mood was overall down. Therefore, psychiatry was consulted. Her valproate level was 12.0. Therefore, her dosage was increased. On recheck, her level was 38.5. She was continued on her amitriptyline with levels as noted above. She was also initiated on Zoloft given her depressive symptoms. 4. Tobacco abuse: The patient was eager to quit smoking and was placed on nicotine patches. Psychiatry felt she should be stabilized on Zoloft prior to starting Wellbutrin which can be done as an outpatient. She will continue with nicotine patches as an outpatient. She was also given the [phone] Help-Line phone number. DISPOSITION: The patient was discharged in stable condition to home. Activity as tolerated. She is on room air. Diet is low cholesterol. FOLLOWUP 1. [facility] in 1 week. She should have a lactate and chemistry-7 checked. Her fasting blood sugar should be checked and will be helpful in assessing her diabetes. She is in the process of setting up a new primary care physician and will schedule this appointment on her own. 2. Neurology clinic, Dr. Marcello Monterroso, at [facility] in 2 weeks. 3. Colonoscopy to be scheduled in the next week. 4. CODE STATUS: FULL CODE. DISCHARGE MEDICATIONS 1. Medrol Dosepak 2 packs simultaneously (new). 2. NicoDerm patch 21 mg transdermal daily (new). 3. Amitriptyline 100 mg p.o. q.h.s. 4. Nadolol 20 mg p.o. q.h.s. 5. Baclofen 10 mg p.o. t.i.d. 6. Sertraline 25 mg p.o. daily (new). 7. Depakote ER 1250 mg p.o. daily (new). 8. Fenofibrate 54 mg p.o. daily. 9. Pantoprazole 40 mg p.o. b.i.d. while on prednisone and then daily (higher dose). 10. Avonex 30 mcg injection q. week (Saturday). If there are any questions, please contact this dictator at [phone]. mmj Dictated: 11/11/2003 22:39:43 Julius Tanner MD Transcribed: 11/12/2003 00:08:40 Staff: Nabeel Gonzáles MD Doc #: [id number] cc: MD Nabeel Garcia MD, Attending [facility] Marcello Monterroso MD [facility], 1 Page 2 Patient Name: MATHIEU PHILIPPE DISCHARGE SUMMARY CONFIDENTIAL MEDICAL RECORD [address] [address] Page 1 Patient: MATHIEU PHILIPPE Location: HPN: [id number] Admit Date: 10/31/2003 Date of : 1955 Discharge Date: 11/06/2003 DISCHARGE SUMMARY documented in this encounter Consult Notes Ephraim Cachorro Shavon - 10/31/2003 12:00 AM CDT TOXICOLOGY CONSULTATION DATE OF CONSULTATION: 11/03/03 REASON FOR CONSULTATION: Lactic acidosis. The valdes team requested toxicology input on the reason for the patient's lactic acidosis after extensive workup thus far has yielded no clear etiology. The question is whether the patient has any other toxic etiology for the lactic acidosis. HISTORY OF PRESENT ILLNESS: The patient is a 48-year-old lady who was admitted 3 days ago for multiple sclerosis exacerbation. She presented to the emergency department with visual problems, weakness and numbness on the right side of her head and going down to her toes. The patient was subsequently admitted. She has a history of multiple sclerosis diagnosed at the age of 29. The patient states she may have had her first attack when she was in her early teens. She currently has had some double vision which started on the afternoon of her admission and also noted generalized fatigue and weakness. The patient also states she has muscle spasms that are typically resolved or relieved with marijuana. She has been using marijuana quite frequently over the past several days and weeks. The patient typically uses it several times a day. She has not noted any change in the character of her marijuana, and currently she states she gets commercial-grade marijuana. She denied using any stimulant drugs, such as cocaine, methamphetamine or ephedra. She has not used any herbal supplements or herbal extracts for her illnesses. The patient has been on her current medications for some time, except for Trichlor. The other medications include Depakote, amitriptyline, baclofen, nadolol and Protonix. The patient also has taken Avonex for her multiple sclerosis. The patient has not noted any severe infections recently; however, she has noted an irritation under her left axilla which she sustained while shaving under her arms. This is being treated with topical antibiotic treatment. The patient also states that she has had frequent bladder infections in the past and occasionally will have difficulty with urination and painful urination associated with a white film covering the top of her urine. She otherwise has not had severe sore throat or chest congestion. The patient has not noted any fever, chills or sweats recently. She has not had severe abdominal pain, nor has she noted any changes in her weight, such as severe weight loss or any other masses. She does have a history of precancerous lesion in the uterus; however, the patient's uterus has been removed. She has not noted any blood loss either through the bladder recently or in her stools. The patient did relate that she has had hematuria in the past associated with bladder infections, but none recently. She also has a history of diabetes and has been noted to have hyperglycemia requiring insulin therapy on a sliding scale while in the hospital. The patient has had ketones checked, which were negative for serum ketones while in the hospital. She does not do extensive exercises and has not noted any generalized soreness of her muscles; however, she did have some soreness in her left shoulder and arm which has been a recurring and frequent event that she treats with marijuana. The patient does have liver function tests obtained periodically due to the fact that she is on valproate, and these tests, she has been told, have been normal. The patient has been removing carpet recently and did note that the carpet padding crumbled into dust, and she thought that there may have been some chemical associated with that, and that she may have been exposed to something there, but she is not sure about that. There is also no construction work going on in her place of residence, and she has not noted any other strange odors or fumes. The patient has not ingested any chemical agents such as ethylene glycol, methanol or formaldehyde. She also has not been exposed to any other chemicals or any other drugs, such as metformin or salicylates, although she has a history in her records of drinking alcohol, but she only uses it occasionally and has not been through any treatment programs. REVIEW OF SYSTEMS: As above. The patient also denied any chest pain, palpitations or severe abdominal pain. She does have multiple sclerosis and several symptoms associated with this that are documented above. SOCIAL HISTORY: As above. The patient does not use stimulants or heroin. She does use marijuana quite frequently. PAST MEDICAL HISTORY: Significant for multiple sclerosis with several exacerbations during the year. The patient is followed for this at the [facility]. She also has bipolar affective disorder for which she takes valproate. She has been discontinued on lithium. She has a history of hypertension. She also has a history of bowel and bladder incontinence with prolapsed uterus, and she has had 3 surgeries in the past for this. She continues to have stress incontinence which she is taking amitriptyline for. The patient has hyperglycemia being treated with insulin. She also has elevated lipids with extremely elevated triglycerides. The patient has had levels in excess of 1600 on her triglyceride test. She states that the levels are now less than 900 at last check. She has had a previous hysterectomy for precancerous lesions on the cervix and uterus. She has also had a gallbladder removal with history of cholelithiasis. The patient also has a history of frequent urinary tract infections. Frequent muscle spasms associated with multiple sclerosis and treated with marijuana. Migraine headaches. The patient states that she has had a long history of migraine headaches and has been treated in the past with Imitrex but has not used injections recently for this. PHYSICAL EXAMINATION VITAL SIGNS: Blood pressure and vital signs are stable. The patient is afebrile. GENERAL: She is alert and oriented x 3. She is a very pleasant female who appears to be in no acute distress. HEENT: The head appears atraumatic. The patient does have some dysconjugate gaze with her eyes. Pupils were equal and reactive. ABDOMEN: Soft and nontender. There is no tenderness noted in the right upper quadrant. No obvious masses are appreciated. The abdomen is obese, and otherwise there is no guarding or rebound. SKIN: There are no abnormal lesions noted; however, the patient in the left axilla does have linear erythematous area in the crease; however, there are no obvious signs of cellulitis in this area. LABORATORY DATA: The laboratory tests obtained by the valdes team have been reviewed. Today the patient's lactate level was 6.2. Previous lactate levels have been in the 4 and 4.8 range. Repeat tests appear to be continuously elevated. The patient had negative serum ketones. Her valproate level was 38.5 and therapeutic. Her carbon monoxide level was 1.3 and within the normal range. Her hemogram revealed a white blood count of 17.5, hemoglobin 13.1, hematocrit 39.3 and platelets 413. The patient also had a hemoglobin level which was 0.5 and normal. The chemistry panel did reveal a BUN of 23, sodium 137, potassium 4.2, chloride 98, bicarbonate 22, glucose 207 and creatinine 0.9. The anion gap was 17. Magnesium and phosphorus were normal. A urine toxicology screen was also obtained, and the patient, of course, had positive amitriptyline as well as THC metabolites present. In addition, she did have positive opiates. The ethanol level was negative. There is no detection of ethylene glycol, isopropyl alcohol or methanol. The patient's salicylate level was less than 2.5. Urinalysis did reveal positive glucose but no evidence of infection. She did have positive ketones in the urine. ASSESSMENT: Elevated lactate level with unclear etiology at this point. The toxicologic etiologies for lactic acidosis have more or less been ruled out except for some obscure drugs and poisons that the patient does not appear to have been exposed to. The typical salicylates, toxic alcohols and carbon monoxide have been ruled out. In addition, ethanol may also lead to lactic acidosis, and this was also negative. Other drugs that are typically associated with this include metformin and metaldehyde. Also, formaldehyde can lead to an anion gap metabolic acidosis. Since the patient smokes marijuana and occasionally marijuana is soaked in formaldehyde, this is a possibility; however, typically the patient does not inhale enough formaldehyde to cause any major toxicity from that. Ingestion of formaldehyde, however, could lead to her acidosis with anion gap. Other toxins that could lead to this are cyanide (which can lead to a lactic acidosis) as well as iron and INH overdoses. Sorbitol has also been associated with lactic acidosis; however, again the patient does not seem to be exposed to this. Lactic acidosis, of course, has been associated with multiple medical and surgical disorders. Primarily prolonged exercise, which the patient denies, however, she does have muscle spasms that are frequent and may involve her entire back or one side of her body and can last for quite some time unless she is using marijuana. Other muscle activity things that could do this, of course, would include seizures, especially chxbk-qosfgc-yitz seizures. The infection etiology and especially shock, however, the patient does not appear to be in shock at this time, but other infections may lead to lactic acidosis as well. The renal insufficiency and uremia have also been known to cause this lactic acidosis, and a team has already consulted the renal service. Other things, such as solid tumors, liver disease and heart disease, as well as cyanotic heart disease and congestive heart failure can also lead to this condition. Any acute hemorrhage and severe anemia, which will typically be seen in very sick patients, may lead to lactic acidosis. Patients with polio have also been known to have lactic acidosis. In addition, patients who are on medications such as nucleoside reversed transcriptase inhibitors may also show asymptomatic hyperlactatemia. RECOMMENDATIONS: The toxicology service would recommend continuing your workup to rule out any of the other medical or surgical etiologies. In addition, it is not unreasonable to get a CK level on this lady to rule out rhabdomyolysis; however, she states her urine is not dark. Other congenital problems or things such as glycogen storage disease are probably unlikely in this patient at this point. Otherwise if any new information does arise in the patient, please feel free to call toxicology at [phone]. The toxicology service appreciates the opportunity to participate in this patient's interesting problem and will be happy to continue to follow the patient with you if there are any further issues presenting. TIME WITH PATIENT: Approximately 30 minutes. sko Dictated: 11/03/2003 17:20:09 Cachorro Ye MD Transcribed: 11/03/2003 19:43:56 Doc #: [id number] cc: Daquan Nunez MD 1 Page 2 Patient Name: MATHIEU PHILIPPE CONSULTATION CONFIDENTIAL MEDICAL RECORD [address] [address] Page 1 Patient: MATHIEU PHILIPPE Location: [facility]: [id number] Admit Date: 10/31/2003 Date of : 1955 Discharge Date: CONSULTATION [facility] - 10/31/2003 12:00 AM CDT NEUROLOGY CONSULTATION DATE OF CONSULTATION: 11/01/2003 The consult was kindly requested by Dr. Gonzáles. IDENTIFICATION: A 48 -year-old right-handed female with a history of current complaints: 1. Diplopia. 2. Sensory changes on right face and arm. The patient has a known history of multiple sclerosis. She reports about 4 days ago she started to have some difficulty with her gait, feeling that both legs were somewhat weaker. This gradually got better. However, the day before yesterday, she started to have difficulty with her vision, mainly double vision on left gaze. She did not have loss of vision. She also reports yesterday she started to have numbness on her right side of her face and scalp and also on her right upper extremity as well. She did not have any significant weakness on her upper extremities. She came in to the emergency room for admission and evaluation for her symptoms. NEUROLOGIC REVIEW OF SYSTEMS: Negative for recent head trauma, loss of consciousness, loss of vision, loss of hearing, speech or swallowing difficulties. There was no weakness or numbness on the face, arms or legs except as described above. The patient has baseline bowel and bladder incontinence. Negative for diffuse muscle pain. GENERAL REVIEW OF SYSTEMS: Negative for chest pain, shortness of breath, nausea, vomiting, fever or chills, significant weight changes. The patient has baseline depression and anxiety and that's been stable. PAST MEDICAL HISTORY: 1. Multiple sclerosis with symptoms starting at age [age] years old. She was first diagnosed at age [age] years old. She was followed by Dr. Marcello Monterroso from neurology. She reports the last time she was followed by a neurologist was at [facility] per Dr. Guzman. She has been on Avonex. 2. Bipolar affective disorder. She was on lithium and this was discontinued subsequently. 3. History of hypertension. 4. Bowel and bladder incontinence due to MS. She is on amitriptyline for bladder control. 5. Continuing use of marijuana for medical purposes. ALLERGIES: NO KNOWN DRUG ALLERGIES. CURRENT MEDICATIONS: 1. Valproic acid 250 mg q.i.d.. 2. Amitriptyline 100 mg q. day. 3. Baclofen 5 mg t.i.d. 4. Nadolol. 5. Protonix 40 mg q. day. 6. Avonex 30 mcg IM q. week. 7. Tricor 54 mg q. day. SOCIAL HISTORY: [place] and does not work. She smokes 3 to 4 cigarettes a day. She reports she's using marijuana for her MS symptoms. She drinks alcohol occasionally. FAMILY HISTORY: Her mother has significant heart disease and apparently is terminal at this point. Her father of lung cancer. He had a history of alcohol abuse. She has 1 brother and 1 sister who are healthy. She is single and has 2 daughters who are healthy. PHYSICAL EXAMINATION: Blood pressure 126/62, pulse 88, respirations 20. Oxygen saturation 92% on room air. Temperature 96.2. The head was normal without signs of trauma. The eyes were normal. The sclerae were anicteric. Evaluation of the cardiovascular system revealed a rhythmic regular heart rate without murmurs. The lungs were clear to auscultation bilaterally. The patient is obese. NEUROLOGIC EXAMINATION: Mini-Mental exam: The patient was able to spell WORLD correctly forwards but no backwards. The patient was awake, alert and oriented times three. Speech, naming, repeating, color naming and reading were intact. . Short-term memory was 2/3. The patient was able to follow 3/3 commands correctly. Hand writing and copying of intersecting pentagons was not done. The pupils were equal, round and reacting to light. The visual etienne were intact bilaterally. The fundi were normal bilaterally. 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 There was no nystagmus. The face was intact to sensations and mimics bilaterally. Hearing was intact bilaterally. The soft palate was up-going bilaterally. Neck movements and tongue movements were normal. The motor exam was normal. There was no drift, tremor, asterixis, chorea or cogwheeling. Fine finger movements were intact. Tone was normal. Strength was 5/5 x 4. Coordination was normal. Rqymhl-pman-zefovs, rapid alternating movements, and utah-ubbf-iusk tests were intact bilaterally. Sensory exam: The patient had reduced temperature sense to left lower extremities, otherwise light touch, position, vibration and temperature senses were intact bilaterally. Pinprick was not checked. The patient was able to ambulate without much difficulty. Reflexes: 2 on upper extremities, 1 on knees, 0 on ankles, toes downgoing bilaterally. Labs on admission: The patient had an MRI scan of the brain, which did show periventricular white matter changes consistent with multiple sclerosis. These did not show any enhancement. I reviewed the films myself. Blood tests: Blood sodium 136, potassium 5.3, chloride 102, carbon dioxide 19, BUN 20, creatinine 0.8, glucose 224, calcium 9.8, magnesium 2.0, phosphorous 3.3. WBCs 9.7, hemoglobin 14.6, platelets 433. Valproate level 12. DIAGNOSIS: Multiple sclerosis exacerbation. ASSESSMENT: The patient does have diplopia and sensory changes due to her MS exacerbation. At this point, she will benefit from continuation of her IV steroids with Solumedrol 1 gram IV q. day. Apparently, she got her first dose yesterday and I would recommend continuing for a total of 5 days. PLAN: 1. Continue with IV Solumedrol 1 gram q. day for a total of 5 days. 2. After the last dose of IV Solumedrol, the next day the patient should start Medrol Dosepak 2 packs simultaneously as directed. 3. Frequent monitoring of fingerstick blood glucose q.i.d. for fluctuations of blood glucose levels. If she has significant fluctuations, she may need to be on an insulin sliding scale. This could be addressed by the hospitalist team. 4. Liver panel since she's on Avonex and Depakote. 5. Blood for potassium on sodium on the 3rd and 5th days of IV Solumedrol. 6. The patient will be scheduled to followup with Dr. Monterroso about 2 weeks after her discharge in neurology outpatient. 7. Neurology checks every shift. 8. I will also add a UA to her labs to make sure she doesn't have a urinary tract infection.. Thank you very much for having me participate in the patient's care and I will continue to follow the patient with you. sac Dictated: 11/01/2003 08:44:00 MCarlos Su MD Transcribed: 11/01/2003 09:49:06 Doc #: [id number] cc: Daquan Nunez MD, Attending This document was electronically signed by Yury Su MD on 11/19/2003 15:34:03. 1 Page 2 Patient Name: MATHIEU PHILIPPE CONSULTATION CONFIDENTIAL MEDICAL RECORD [address] [address] Page 1 Patient: MATHIEU PHILIPPE Location: 9E HPN: [id number] Admit Date: 10/31/2003 Date of : 1955 Discharge Date: CONSULTATION documented in this encounter OR Notes H&P - NatanJulius perez - 10/31/2003 12:00 AM CDT STAT CHIEF COMPLAINT: Double vision. HISTORY OF PRESENT ILLNESS: The patient is a 48-year-old female with a prior history of multiple sclerosis who now presents with right-sided weakness, numbness and visual changes. She notes her symptoms started the day prior to admission when she noted some blurry vision when turning her head. This slowly and progressively worsened, especially with left lateral gaze. She had some associated dizziness. She also noted some right-sided numbness and weakness, which was also slowly progressing. She denied any burning or tingling. No tremors. No bladder spasms. Overall energy was stable. No ataxia or dysphagia. No seizure-like episodes. No loss of consciousness. She notes she had similar symptoms approximately 8 to 9 years ago, which were her numbness exacerbation. The patient has had no bladder spasms, but she does have urinary incontinence. In the emergency room she received 1 mg of Ativan and was admitted for further medical management. PAST MEDICAL HISTORY: 1. Relapsing, remitting multiple sclerosis. She was diagnosed at age 31 and has previously been treated on steroids, but notes she was severely dependent on steroids and had a difficult time tapering off this medication. She has residual muscle spasms, but otherwise it has been several years since her last exacerbation. She is currently on Avonex. 2. Bipolar disease diagnosed at age 33. She is currently on Depakote and follows with Dr. Soni at [facility]. Her most recent manic episode was 2 to 3 weeks ago. 3. Gastroesophageal reflux disease. She is currently on a PPI. 4. Hypertension, currently on nadolol. 5. Hypertriglyceridemia, currently on Tricor. 6. Urge incontinence. 7. Tobacco abuse and she is currently interested in quitting. PAST SURGICAL HISTORY: 1. Status post rectocele repair. Multiple surgeries. 2. Status post cholecystectomy. 3. Status post hysterectomy and tubal ligation. 4. Status post breast reduction. MEDICATIONS: She is currently unaware of doses. 1. Depakote. 2. Baclofen p.r.n. 3. Nadolol. 4. Protonix. 5. Trichlor. 6. Avonex. 7. Amitriptyline. ALLERGIES: NO KNOWN DRUG ALLERGIES. SHE NOTES ADDICTION TO PREDNISONE. FAMILY HISTORY: Mother with heart disease and diabetes. Father from an unknown malignancy. He had a history of alcoholism. SOCIAL HISTORY: The patient lives in [place], [place] with her daughter and her family on a farm. She has been on disability due to her psychiatric illness for several years. She is currently engaged to her partner of 8 years. She smokes 3 to 4 cigarettes per day for the last 33 years. Rare alcohol. She admits to marijuana 2 to 3 times per week for muscle pain. No other illicit drugs. REVIEW OF SYSTEMS: GENERAL: She has gained about 40 pounds over the past 4 months. Otherwise, no fevers, chills or sweats. GASTROINTESTINAL/ GENITOURINARY: She also notes gastroesophageal reflux disease symptoms and some urinary incontinence. MUSCULOSKELETAL: She notes some muscle cramps, depression and anxiety. OTHER: Otherwise review of systems were negative. PHYSICAL EXAMINATION: VITAL SIGNS: Blood pressure 125/67, temperature 96, pulse 88, respirations 20, oxygen saturations 93% o room air. GENERAL: A pleasant female sitting up in bed in no acute distress. Morbidly obese. HEENT: Normocephalic and atraumatic. Pupils were equal, round and reactive to light. Extraocular movements are intact. No nystagmus. Funduscopic exam was normal. Tympanic membranes intact. Mucous membranes moist. NECK: Supple. No lymphadenopathy or thyromegaly. LUNGS: Clear to auscultation bilaterally. She has a nasal cannula and was breathing comfortably. HEART: Regular rhythm. Normal rate. No murmurs, rubs or gallops. No lower extremity edema. ABDOMEN: Soft, non-tender and non-distended. No hepatosplenomegaly. Normoactive bowel sounds. NEUROLOGIC: Alert and oriented x 3. Cranial nerves II through XII were intact with some decreased sensation in the right temporal region. Motor was 5/5 in the upper and lower extremities. Gait was mildly unsteady. She was unable to do the heel to toe. Romberg was negative. Deep tendon reflexes were 2+ in the upper and lower extremities. Babinski was downgoing. LABORATORY DATA/IMAGING STUDIES: Pending MRI/MRA. No evidence of periventricular lesions in both cerebral hemispheres. No acute infarct, masses or hydro. ASSESSMENT AND PLAN: The patient is a 48-year-old female with a prior history of multiple sclerosis who is now here with diplopia and right-sided weakness. 1. Diplopia and right-sided weakness, likely multiple sclerosis exacerbation. The differential would include infectious etiology verus vascular. Given the MRI findings, it is likely secondary to her multiple sclerosis. We will have neurology involved with her care and start solumedrol IV. We will continue her Avonex. 2. Hypertension, continue her current medications. 3. Hypertriglyceridemia. Currently on Tricor. We will check her a.m. lipids. 4. Bipolar depression. She has recently been feeling very bipolar. She has recently been feeling down and has been having anxiety attacks. She is interested in starting a new antianxiety medication. We will consider deferring this to Dr. Soni at [facility]. However, also consider psyche consultation and care. 5. Tobacco abuse. She is interested in smoking cessation. We will start nicotine patch while she is here and we will discuss with regarding Wellbutrin being an indication for this patient. CODE STATUS: Full code. celestino Dictated: 11/01/2003 06:43:19 Julius Tanner MD Transcribed: 11/01/2003 07:24:55 Staff: Doc #: [id number] cc: Daquan Nunez MD, Attending 1 Page 2 Patient Name: MATHIEU PHILIPPE HISTORY & PHYSICAL CONFIDENTIAL MEDICAL RECORD [address] [address] Page 1 Patient: MATHIEU PHILIPPE Location: 9E HPN: [id number] Admit Date: 10/31/2003 Date of : 1955 HISTORY & PHYSICAL documented in this encounter ED Notes Vi Conteh - 10/31/2003 12:00 AM CDT Log Number: [id number] IMPRESSION: Multiple sclerosis attack. CHIEF COMPLAINT: Vision problems, weakness and numbness on the right side from head to toe. HISTORY OF PRESENT ILLNESS: The patient is a 48-year-old woman with a history of multiple sclerosis diagnosed at age 29; however, she states that she had her first major attack at age 12. She presents today with a complaint of seeing multiple images when she gazes to the left side and right-sided numbness from head to toe and weakness in her right arm, hand and leg. She states that she first noted the changes in her vision last night about 4:00 p.m.; however, she has noted leg weakness for about three days. Her other symptoms she noted after the vision changes. The patient states that she also feels generally fatigued and weak. Her last episode was 3-4 years ago. PAST MEDICAL HISTORY 1. Multiple sclerosis, as stated above. 2. Hypertension. 3. Chronic fatigue. 4. Chronic headaches which she describes as migraines. FAMILY HISTORY: Father with cancer, mother with heart disease. SOCIAL HISTORY: The patient says she lives at home with her fianc??. She smokes 3-4 cigarettes per day and has done so for the last 35 years. She does not drink alcohol or use drugs. ALLERGIES: NO KNOWN DRUG ALLERGIES, BUT STATES THAT SHE HAS AN ADDICTION TO PREDNISONE. CURRENT MEDICATIONS: Depakote; amitriptyline; baclofen; nadolol; Protonix; Tri-Chlor and Avonex which is interferon for her MS. REVIEW OF SYSTEMS: The patient also complains of a hoarse voice x 2 weeks. She also states that she is depressed and has a skin infection under her arms that she treats with an anti-bacterial ointment. PHYSICAL EXAMINATION VITALS: Temperature 96.6; pulse 81; respiratory rate 16; blood pressure 139/78; GCS 15. GENERAL: The patient is an obese woman resting with a left eye patch; she appears generally fatigued and in no apparent distress. NEUROLOGIC: On cranial nerve exam, visual etienne are intact to confrontation; pupils equal, round and reactive to light and accommodation; extraocular motions intact, but there is a dysconjugate gaze to the right eye which is deviated medially and she also has horizontal nystagmus; the patient also has right eyelid droop; facial sensation is decreased on the right; facial movements are intact; cranial nerve VIII is intact; cranial nerves IX and X are intact; however, she does have a hoarse voice; cranial nerves XI and XII are intact. NEUROLOGIC: On motor exam, patient has normal bulk and tone; her upper extremity strength exam is 4/5; patient does have a tremor in her arms bilaterally; her right arm is weaker than the left and she is easily fatigued; lower extremity strength is 4/5 bilaterally; coordination is intact to texnij-tanf-bfpbng exam and gnve-huvu-hvbe exam; light touch sensation is decreased on the right side; reflexes are 1+ bilaterally at the biceps, supinator and patellar regions; the patient does have not clonus or positive Babinski sign. IMPRESSION: This is likely an exacerbation of her multiple sclerosis; however, there is also the possibility that she has had a lacunar infarct. Neurology was consulted and they suggested that we perform an MRI scan of the patient's brain with and without contrast using the MS protocol. They also suggested that we admit the patient for treatment with Solu-Medrol. Based on her MRI results, they will decide whether or not she needs a change in her standard treatment for her MS, possibly changing the Avonex to rebus. The patient states that she had her last MRI approximately two years ago at [facility]. She states that she has had approximately 6-7 MRI scans in the past and that some of them were performed here at [facility]; however, I was unable to locate those images on EpicWeb. This patient was discussed with Dr. Reyes. DISPOSITION: Admit to medicine general floor. Neurology has been consulted and would be glad to follow up with her care. ambrocio Dictated: 10/31/2003 17:37:21 Vi Conteh MD Transcribed: 11/02/2003 09:09:01 Staff: Nereida Reyes MD Doc #: [id number] cc: Daquan Nunez MD, Attending Physician 1 Page 2 Patient Name: MATHIEU PHILIPPE Visit Date: 10/31/2003 EMERGENCY MEDICINE NOTE CONFIDENTIAL MEDICAL RECORD [address] [id number] Page 1 Patient: MATHIEU PHILIPPE Location: 9E HPN: [id number] Date of : 1955 Visit Date: 10/31/2003 EMERGENCY MEDICINE NOTE documented in this encounter Plan of Treatment Not on filedocumented as of this encounter Procedures Procedure Name Priority Date/Time Associated Diagnosis Comme nts US ABDOMEN- Routine 11/04/2003 10:45 AM Results for this COMPLETE CDT procedure are i n the results section. CT THORAX WITHOUT Routine 11/03/2003 12:05 AM Res ults for this IV CONTRAST CDT procedure are i n the results section. MR BRAIN & STEM Routine 10/31/2003 6:48 PM Result s for this WO/W CONTRAST CDT procedure are in the results section. documented in this encounter Results US ABDOMEN- COMPLETE (11/04/2003 10:45 AM CDT) Component Value Ref Test Analysis Performed Pathologis t Range Method Time At Signature US COMPLETE ABDOMINAL ULTRASOUND 11/04/03 [facility] ABDM. INDICATIONS: Lactic acidosis and hepatomegaly. RADIOLOGY MULTI-ORGANS COMPARISONS: CT abdomen 11/03/03. FINDINGS: The liver is enlarged and increased in echogenicitycompatible with fatty infiltration as was seen on the previous CT. No intrahepatic or extrahepatic biliary ductal dilatation is seen. The common duct measures 3 mm in diameter. The gallbladder has been surgically removed. Pancreas is normal. Spleen is normal.Kidneys are normal bilaterally without hydronephrosis. Right kidney measures 11.4 x 5.9 x 4.7 cm, and the left kidney measures 12.3 x 4.4 x 4.7 cm. Hepatopedal flow is seen within the portal vein. Abdominal aorta is of normal caliber. IMPRESSION: Fatty infiltration of the liver. 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 CLINICAL INDICATION: Persistent lactic acidosis, underlyingmultiple sclerosis. TECHNIQUE: Initially 2.5 mm axial tomograms were obtained through the chest following the uncomplicated administration of 125 cc low osmolar intravenous contrast. Subsequent 5 mm tomograms were obtained through the abdomen and pelvis. Oral contrast alsoadministered. FINDINGS: CHEST: LUNGS AND PLEURA: Clear. No pleural effusion or pneumothorax.MEDIASTINUM: Single precarinal lymph node measuring 8 x 12 x 15 mm. No mediastinal masses of fluid collections otherwise evident. ABDOMEN: The liver exhibits diffuse fatty infiltration andenlargement. The spleen, pancreas, adrenal glands, and kidneys are unremarkable. No extraluminal gas or free fluid noted in the abdomen. The bowel is unremarkable. No changes of ischemia are evident since as wall thickening or pneumatosis. No retroperitoneal or mesenteric adenopathy. PELVIS: The patient is status post hysterectomy. Diverticulosisis seen in the sigmoid colon, without evidence of diverticulitis. No extraluminal gas or free fluid noted. IMPRESSION: 1. Diffuse fatty infiltration of the liver with associatedhepatomegaly. 2. Diverticulosis without evidence of diverticulitis. 3. There is no obvious etiology for the patient's lactic acidosis. Anatomical Region Laterality Modality Other Specimen (Source) Anatomical Collection Method Collection Time Re ceived Time Location / / Volume Laterality 11/03/2003 12:05 AM CDT Narrative 11/03/2003 5:15 PM CDT PATIENT DOES SPEAK BOTSWANAN BEEPER NO: [phone] CLINICAL HX:-PERSISTANT LACTIC ACIDOSIS Amen Ciro [facility] CT/RH MR BRAIN & STEM WO/W CONTRAST (10/31/2003 6:48 PM CDT) Component Value Ref Test Analysis Performed Pathologis t Range Method Time At Signature MR BRAIN + MRI OF THE HEAD 10/31/2003 [facility] STEM WO/W INDICATION: Diplopia. Numbness on the right side of the RADIOLOGY CONTRAST body. History of multiple sclerosis. TECHNIQUE: MRI of the head without and with IV Gadolinium performed per multiple sclerosis protocol. COMPARISON: None. FINDINGS: Numerous periventricular lesions are noted in both cerebral hemispheres consistent with the clinical diagnosis of multiple sclerosis. None of these lesions enhance or displaysignificant diffusion signal abnormality, which can occasionally be seen with active lesions. No evidence for acute infarct, hydrocephalus, or intracranial mass. The major intracranial vascular flow voids are patent. Theparanasal sinuses and mastoid air cells are clear. Theintraorbital contents are unremarkable. CONCLUSIONS: 1. Numerous T2 hyperintense lesions in the deep and periventricular white matter of both cerebral hemispheresconsistent with the clinical diagnosis of multiple sclerosis. 2. No pathologic enhancement or diffusion signal abnormality. No evidence for acute infarct or hydrocephalus. Findings were called to the [facility] Emergency Room at the time of dictation. Anatomical Region Laterality Modality Other Specimen (Source) Anatomical Collection Method Collection Time Re ceived Time Location / / Volume Laterality 10/31/2003 6:48 PM CDT Nereida Reyes MD RAD MRI/RH documented in this encounter Visit Diagnoses Diagnosis Disturbance of skin sensation Streptococcal sore throat Multiple sclerosis (HRC) Multiple sclerosis Acidosis Nonspecific abnormal toxicological findi ngs documented in this encounter Care Teams Battery Tester Relationship Specialty Start Date End Date Unassigned, Provider PCP - General 01/12/00 08/29/[address] [place] [id number] documented as of this encounter
--- OUTSIDE RECORDS SUMMARY | 2021-11-16 13:12 | XMS_ITS | Encounter Summary ---
:1955 Author Organization [facility] [address], [place] [address] Care Team Providers Name Role Phone Unassigned, Provider Primary Care Provider Unavailable Encounter Details Date Type Department Care Team Description 04/15/2001 Office Visit [facility] Debbie Hayes ORGANIC AFFECTIVE Behavioral Health MD C[facility] [phone] [place] [phone] Social History Tobacco Use Types Packs/Day Years Used Date Smoking Tobacco: Never Assessed Sex Assigned at Date Recorded Not on file documented as of this encounter Plan of Treatment Not on filedocumented as of this encounter Visit Diagnoses Diagnosis Mood disorder in conditions classified e lsewhere ([facility]) Mood disorder in conditions classified e lsewhere documented in this encounter Care Teams Teachers Assistant Relationship Specialty Start Date End Date Unassigned, Provider PCP - General 01/12/00 08/29/11 [address] [place] [address] documented as of this encounter
--- OUTSIDE RECORDS SUMMARY | 2021-11-16 13:12 | XMS_ITS | Encounter Summary ---
:1955 Author Organization [facility] Address [address] [place] [address] Care Team Providers Name Role Phone Unassigned, Provider Primary Care Provider Unavailable Encounter Details Date Type Department Care Team Description 09/21/2005 Orders Only External to Unknown, [facility] [address] [place] [address] (Wo rk) Social History Tobacco [...] documented as of this encounter Procedure Notes [facility], Provider - 09/21/2005 12:00 AM CDTAssociated Order(s): MRI-SCAN documented in this encounter Plan of Treatment Not on filedocumented as of this encounter Procedures Procedure Name Priority Date/Time Associated Diagnosis Comme nts MRI-SCAN 09/21/2005 12:00 AM Results for this CDT procedure are i n the results section . documented in this encounter Results MRI-SCAN (09/21/2005 12:00 AM CDT) Anatomical Region Laterality Modality Other Narrative 09/21/2005 12:00 AM CDT This result has an attachment that is no t available. A scan was deleted from the Results sect ion by A [employer] System Scan Conversion [[id number]] on 03/19/2010 at 1:53 PM (File: [id number] [id number];) Transcriptions [facility], Provider - 09/21/2005 12:00 AM CDT Physician Unknown DUMMY/OTHER/AR documented in this encounter Visit Diagnoses Not on filedocumented in this encounter Care Teams Detacker Relationship Specialty Start Date End Date Unassigned, Provider PCP - General 01/12/00 08/29/[address] [place] [id number] documented as of this encounter
--- OUTSIDE RECORDS SUMMARY | 2021-11-16 13:12 | XMS_ITS | Encounter Summary ---
:1955 Author Organization [employer] Address [address] [place] [address] Care Team Providers Name Role Phone Unassigned, Provider Primary Care Provider Unavailable Reason for Visit Reason Comments MULTIPLE SCLEROSIS Encounter Details Date Type Department Care Team Description 08/29/2004 Office Visit [facility] Marcello Monterroso MD MULTIPLE SCLEROSIS; [address] [place], [place] [address] Social History Tobacco Use Types Packs/Day Years Used Date Smoking Tobacco: Every Day Cigarettes 45 Comments: 4-5 cigarettes per day Alcohol Use Standard Drinks/Week Comments No 0 (1 standard drink = 0.6 oz pure alcoho l) Sex Assigned at Date Recorded Not on file documented as of this encounter Last Filed Vital Signs Vital Sign Reading Time Taken Comments Blood Pressure 132/88 08/29/2004 3:50 PM CDT Pulse 84 08/29/2004 3:50 PM CDT Temperature - - Respiratory Rate - - Oxygen Saturation - - Inhaled Oxygen Concentration - - Weight 110.2 kg (243 lb) 08/29/2004 3:50 PM CDT Height 160 cm (5' 3) 08/29/2004 3:50 PM CDT Body Mass Index 43.05 08/29/2004 3:50 PM CDT documented in this encounter Consult Notes Marcello Monterroso - 08/29/2004 12:00 AM CDTHISTORY OF PRESENT ILLNESS: Dpfgf-bbys-[id number] woman right-handed woman with probable multiple sclerosis as well as bipolar disorder is back for followup. I have not seen Yary since December 1999. She tells me she's been receiving neurological care at the [facility] over the past few years but doesn't want to go back there. Says that they told her they weren't sure she has multiple sclerosis but then after another MR scan they told her that she did. Her last MR scan available in our chart was from October 2003 and this study did by report show a number of T2 hyperintense lesions consistent with the clinical diagnosis of multiple sclerosis. MEDICATIONS: Her medications are: Amitriptyline 100 mg h.s., Tricor 48 mg daily, Depakote 1 gram p.o. h.s., Avonex injected weekly, Glipizide daily. ALLERGIES: None. Yary's primary issue today is that she wants to known if I'll support her application for getting a motorized scooter to get around. I told her that I would. Discussed with her how to go to a psychiatric social worker and have the paper work sent on to me. EXAMINATION: Blood pressure 132/88, pulse 84 and regular, height 5 feet 3 inches, weight 243 pounds. Alert, but tired appearing morbidly obese middle-aged woman. Affect is somewhat inappropriate with joking. Speech is easily understood. Eye movements are full and conjugate. Facial movements symmetrical, tongue, plate and swallow intact. There is no arm drift. Cuwekl-ch-opel and colu-wp-izwi are accurate. When walking she`s initially unsteady but then improves as she goes down the magaña. IMPRESSION: Multiple sclerosis. COMMENT: Always difficult to evaluate Yary first of all because she's very noncompliant with coming back for appointments but also because of the degree of functional overlay. Nevertheless she does have objective abnormalities certainly on her brain MR scan. She'll continue on her Avonex. She's send the paper work when it's appropriate. I've asked her to sign a release so that we can get records from the [facility] as to what was done there. I'd like to see her back in 6 months though I am not sure she will follow-up on this. We discussed lifestyle issues including weight management, exercise. [place], [place] Says there aren't many facilities around there. We also talked about MS prognosis she is now in her 50's. Forty minutes with the patient 25 minutes in counseling and care coordination. 10:43 A cc: Marcello Monterroso MD documented in this encounter Nursing Notes 08/29/2004 3:25 PM CDT >> GABE PEDROZA 08/29/2004 3:45 pm Here for follow-up on MS. Gabe Snow ANDREY Pedrzoa 08/29/2004 documented in this encounter Plan of Treatment Not on filedocumented as of this encounter Visit Diagnoses Diagnosis Multiple sclerosis (HRC) Multiple sclerosis Obesity, unspecified (HRC) Obesity, unspecified documented in this encounter Care Teams Biodiesel Product Development Manager Relationship Specialty Start Date End Date Unassigned, Provider PCP - General 01/12/00 08/29/[address] [place] [id number] documented as of this encounter
--- OUTSIDE RECORDS SUMMARY | 2021-11-16 13:12 | XMS_ITS | Encounter Summary ---
:1955 [facility] Address [address] [place] [address] Care Team Providers Name Role Phone Unassigned, Provider Primary Care Provider Unavailable Encounter Details Date Type Department Care Team Description 03/01/2001 Office Visit [facility] Sabina Zhu MD MULTIPLE SCLEROSIS; [facility] [address] [place], [place] [id number] (Wo rk) Social History Tobacco Use Types Packs/Day Years Used Date Smoking Tobacco: Never Assessed Sex Assigned at Date Recorded Not on file documented as of this encounter Progress Notes Sabina Zhu - 02/26/2001 12:00 AM CSTSubjective: Yary is here for follow-up from the hospital and also mainly because she is having a lot of more symptoms lately. She was hospitalized recently on 02-07 for multiple sclerosis exacerbation. She a five day course of steroids. She says she is doing better with her symptoms. She had tingling and numbness of the right leg mainly when she but it's getting better. She did not have any light-headedness or any new weaknesses. She had some trouble with her bladder that has been there for a long time with no new changes in that. She is for her urinary incontinence. She says that since last spring she has been noticing some mood symptoms. She has history of bipolar disorder and was on [place] for a year and she stopped taking it because she was feeling better. For the past five years she has not been on [place]. She says [place] helped her a lot with her symptoms of maranda. She says that since this last hospitalization she has been noticing increasing in her manic symptoms. She has not slept for past five days. She has ups and downs in her moods. She is very irritable. She is angry and anxious. She has excess energy during the day but she cannot do much because of her MS and she doesn't like the feeling that she is getting right now. She says all these symptoms are exactly those when she had the maranda a few years ago. Denies any suicidal ideation right now. She said she was on Prozac once a long time ago and it made her symptoms worse. She says that even are not helping with her sleep. She feels very manic. Her current medications are : Amitriptyline, Atenolol, and Premarin and HCTZ. Objective: On examination her vitals are stable. HEENT: normal. Chest is clear to auscultation bilaterally. Cardiovascular: normal S1 S2. Neuro exam grossly normal focal. She has good strength in both upper and lower limbs. She is alert, oriented x 3. She did not have any suicidal ideation. As mentioned as she feels very irritable her speech is slightly fast which otherwise normal. Assessment/Plan: 1. Multiple sclerosis. Doing better. No new problems. She was supposed to follow with the neurologist one week from now. I told her to keep the appointment and make sure she follows up with the neurologist. 2. Bipolar disorder. Probably I talked to Dr. Pradhan psychiatrist over the phone and he said we could start her on [place] 450-mg po bid. Her creatinine and TSH were OK. Her creatinine was .6 and TSH was 1.48. 3. I told her to follow-up with behavioral health as an outpatient and will schedule an appointment with Dr. Yusuf at 9:00 a.m. jade Dictated: 02/26/2001 16:13:40 Transcribed: 03/04/2001 11:34:50 Doc #: [id number] PATIENT NAME: YARY PHILIPPE VISIT DATE: 02/26/2001 AGE: 45Y [facility] Provider Signature Page 1 Confidential Medical Record [facility] [address] [facility] ?? [place] [address] Page Patient: YARY PHILIPPE Visit Date: 02/26/2001 Sabina Zhu MD Date of : 1955 VISIT DATE: 02/26/2001 AGE: 45Y [facility] Provider Signature WARE ENGINEER DEVELOPER documented in this encounter Plan of Treatment Not on filedocumented as of this encounter Visit Diagnoses Diagnosis Multiple sclerosis (HRC) Multiple sclerosis Bipolar I disorder, most recent episode (or current) unspecified (HRC) Bipolar I disorder, most recent episode (or current) unspecified documented in this encounter Care Teams Sales Representative Printing Relationship Specialty Start Date End Date Unassigned, Provider PCP - General 01/12/00 08/29/[address] [place] [id number] documented as of this encounter
--- OUTSIDE RECORDS SUMMARY | 2021-11-16 13:12 | XMS_ITS | Encounter Summary ---
:1955 Author Organization [facility] Address [address] [place] [phone] Care Team Providers Name Role Phone Unassigned, Provider Primary Care Provider Unavailable Reason for Referral Specialty Diagnoses / Procedures Referred By Contact Ana avila To Contact Marcello Monterroso MD [address] [place] [phone] Referral ID Status Reason Start Date Expiration Date Visits Requ ested Visits Authorized Specialty Diagnoses / Procedures Referred By Contact Ana avila To Contact Marcello Monterroso MD [address] [place] [phone] Referral ID Status Reason Start Date Expiration Date Visits Requ ested Visits Authorized Specialty Diagnoses / Procedures Referred By Contact Ana avila To Contact Marcello Monterroso MD [address] [place] [id number] Referral ID Status Reason Start Date Expiration Date Visits Requ ested Visits Authorized Specialty Diagnoses / Procedures Referred By Contact Ana avila To Contact Marcello Monterroso MD [address] [place] [phone] Referral ID Status Reason Start Date Expiration Date Visits Requ ested Visits Authorized Reason for Visit Reason Comments Follow-up, NOS MS Encounter Details Date Type Department Care Team Description 09/06/2005 Office Visit [facility] Marcello Monterroso, MULTIPLE SCLEROSIS (Primary Dx); [address] [facility]; [place] [phone] 4 ABNORMALITY OF GAIT [phone] Social History Tobacco Use Types Packs/Day Years Used Date Smoking Tobacco: Every Day Cigarettes 45 Comments: 4-5 cigarettes per day Alcohol Use Standard Drinks/Week Comments No 0 (1 standard drink = 0.6 oz pure alcoho l) Sex Assigned at Date Recorded Not on file documented as of this encounter Last Filed Vital Signs Vital Sign Reading Time Taken Comments Blood Pressure 110/80 09/06/2005 9:15 AM CDT Pulse 60 09/06/2005 9:15 AM CDT Temperature - - Respiratory Rate - - Oxygen Saturation - - Inhaled Oxygen Concentration - - Weight 108.9 kg (240 lb) 09/06/2005 9:15 AM CDT Height 160 cm (5' 3) 09/06/2005 9:15 AM CDT Body Mass Index 42.51 09/06/2005 9:15 AM CDT documented in this encounter Patient Instructions Patient [id number]/08/2006 9:15 AM CDT Schedule brain MRI and neuropsychological testing for memory loss Schedule EEG regarding memory loss Schedule EDSS and brief cognitive assessment with Charly - next available Blood tests today Cut down your amitryptiline to 1 pill at bedtime for a week then stop. Begin Trazodone 50 mgm - 2 at bedtime for sleep. Can use 3 if needed. Followup to see Dr. Monterroso in 4-6 wks. Marcello Monterroso MD documented in this encounter Nursing Notes 09/06/2005 9:15 AM CDT >> GABE PINEDA 09/06/2005 9:20 am f/u Meds updated and verified with pt. Gabe Pineda documented in this encounter Plan of Treatment Not on filedocumented as of this encounter Visit Diagnoses Diagnosis Multiple sclerosis (HRC) - Primary Multiple sclerosis Memory loss Abnormality of gait documented in this encounter Care Teams Sheet Metal Assembler Relationship Specialty Start Date End Date Unassigned, Provider PCP - General 01/12/00 08/29/[address] [place] [id number] documented as of this encounter
--- OUTSIDE RECORDS SUMMARY | 2021-11-16 13:12 | XMS_ITS | Encounter Summary ---
:1955 Author Organization [place] [facility] Address [address] [place] [address] Care Team Providers Name Role Phone Unassigned, Provider Primary Care Provider Unavailable Reason for Referral Specialty Diagnoses / Procedures Referred By Contact Refer red To Contact Stacie Bautista, [facility] [address] [place] [address] Referral ID Status Reason Start Date Expiration Date Visits Requ ested Visits Authorized Reason for Visit Reason Comments MEMORY,LOSS OF testing Encounter Details Date Type Department Care Team Description 09/18/2005 Office Visit [facility] Stacie Bautista, ABRAHAM LE SCLEROSIS (Primary Dx); [facility] MEMORY LOSS; [address] [facility] [place] [address] [place], [place] [phone] [id number] Social History Tobacco Use Types Packs/Day Years [...] Sign Reading Time Taken Comments Blood Pressure 132/82 09/18/2005 12:45 PM CDT Pulse 84 09/18/2005 12:45 PM CDT Temperature - - Respiratory Rate - - Oxygen Saturation - - Inhaled Oxygen Concentration - - Weight 112 kg (247 lb) 09/18/2005 12:45 PM CDT Height 160 cm (5' 3) 09/18/2005 12:45 PM CDT Body Mass Index 43.75 09/18/2005 12:45 PM CDT documented in this encounter Patient Instructions Patient Vixhkteitbql82/20/2006 12:45 PM CDT The following instructions are for your information. Please review this sheet carefully and contactus if you have any questions. Follow-up: Please follow-up in 2 months with Stacie Bautista NP for EDSS and cognitive eval (needs 60 minute visit). Please arrive in the neurology department 15 minutes before your scheduled follow-up appointment time to allow adequate time for the nursing staff to review your medications and vital signs. If you are unable to keep this follow-up appointment, please call at least 24 hours in advance to let us know so that we may schedule another patient for that time. Please call [phone] with any concerns regarding your visit today or for any issues as listed below on this follow-up form. If you do not receive a return phone call from us within 4 hours, pleasecall again. Thank you. Diagnosis: MS, memory problems Medication Changes: Continue with the Avonex REFERRAL: Psychiatrist for eval of bipolar disease. Please keep your appointment with Dr. Almaraz for neuropsychological testing: LAB: Please go to the lab today to have labs drawn RESULTS: Please call the Neurology Department at [phone], in 10 day(s) after your lab test, if you haveNOT received a letter or phone call regarding the results. Recommendations: Exercise : Try to exercise at least 4 times per week for a total of 30 minutes (this can be broken up into smaller blocks of exercise). FOLLOW-UP: Please follow-up with your primary care clinic regarding all other medical issues and concerns. Please call the neurology department at [phone] if you have any questions related to your visit today, new symptoms, worsening symptoms, side effects to your medication that you can not tolerate and concerns that your medication is not working well to control your symptoms. Return visit information: Please bring all your medications (including over the counter medications, vitamins and herbal products) with you to all of your visits. Please call at least 24 hours in advance if you are unable to keep your follow-up appointment so that we may schedule another patient for that time. Please arrive in the neurology department 15 minutes BEFORE your scheduled appointment time for the nurse to review all medications and check your vital signs. documented in this encounter Progress Notes 09/18/2005 12:45 PM CDT Addended by: STACIE BAUTISTA on: 09/20/2005 6:22:53 AM Labs from 09-18-05 within acceptable limits other than elevated glucose and HgbA1C. Yary Call will be notified via phone of results. Stacie Bautista NP S:Yary Call is a 50 yr old female I was asked to see by Dr. Marcello Monterroso per note dated 09-06-05 for evaluation of c/o memory problems as well as EDSS examination. Please refer to that note for additional information. The EDSS examination information will be found in the dictated note below this one. She is accompanied by her fiance who drives but he sat in the waiting room throughout our visit. She has noted worsening short term memory problems over the past year. States I just wake up but Idon't know where I am at. My mind jumps right off what I am doing. She no longer drives d/t confusion. She no longer cooks because I almost burned the house down by leaving supper cooking. States she forgets everything with regards to paying bills on time. She doesn't do much shopping. Has trouble following TV shows. Has word finding problems, trouble remembering peoples' names and trouble recalling dates and appointments. She does misplace things at home and states some things never get found again. ROS: See note below. Has been diagnosed with bipolar disease but has not recently seen psychiatry. Dr. Monterroso had stopped her amitriptyline and switched her to Trazodone however, she found she could not sleep well on Trazodone and she had a significant increase in her migraine headaches. Because ofthis she stopped the Trazodone and went back to Amitriptyline. Now sleeping better and her headacheshave resolved. Ambulates independently. Social: Lives with her fiance. Her daughter and her live below them. Smoker. Allergies: No Known Drug Allergy Medications: Active Medications as of 09/18/2005: VYTORIN 10-40MG ORAL TABS, 1daily, Disp: , Rfl: TRICOR 145 MG OR TABS, 1 daily, Disp: , Rfl: CYMBALTA 60MG ORAL CAPS, 1 daily, Disp: , Rfl: NADOLOL 80 MG OR TABS, 1 1/2 daily, Disp: , Rfl: NEXIUM 40 MG OR CPDR, 1 daily, Disp: , Rfl: DEPAKOTE 250 MG OR TBEC, 4 tablets by mouth at bedtime., Disp: , Rfl: 0 AVONEX 30 MCG/VIAL IM KIT, Inject 1 vial IM weekly as directed., Disp: , Rfl: 0 GLIPIZIDE 5 MG OR TB24, 1 tablet daily on an empty stomach. , Disp: , Rfl: 0 AMITRIPTYLINE HCL 50 MG OR TABS, 2 TABS AT NIGHT, Disp: , Rfl: 0 AMERGE 2.5 MG OR TABS, as needed, Disp: , Rfl: 0 O: BP 132/82 Pulse 84 Ht 5' 3 (1.60m) Wt 247 lbs (112.0kg) LMP Hysterectomy Casually dressed, neatly groomed female who appears stated age and in no acute distress. Alert. Hearing intact to normal voice tones bilaterally. Maintains good eye contact during the visit. Nolan Short Mental Status Exam (29-35 indicative of mild cognitive impairment; 29 or less detects dementia):(STMS, Nolan Short Form) ??? Orientation 8/8, Attention 6/7, Learning 3/4, Calculations 3/4, Abstractions 3/3, Knowledge 3/4, Constructions 4/4, Recall 4/4, TOTAL 34/38. PHQ9 was administered today with a total score of 16 Digit Span Forward (6 digit span forward or higher is normal): Patient was able to recite a 6 digitspan forward. Proverbs: Able to abstractly explain 1 proverb. Two others she had concrete explanations and one she did not know the answer to. Words starting with F in 60 seconds (average = 12): 11 Words starting with A in 60 seconds (average = 12): 14 Ideomotor Praxis: Patient demonstrated no ideomotor apraxia. She was able to pantomime 3 specific motor acts without difficulty. A: 1. MS with memory complaints. Also carries a diagnosis of bipolar disease. Score of 34/38 on the Nolan Short Mental Status Exam is not indicative of dementia. She is supposed to be having formal neuropsych testing done though she does not know when the appointment is. P: 1. This information will be passed on to Dr. Marcello Monterroso in the form of this note. 2. Follow-up in 2 months with me per Dr. Monterroso's plan for repeat EDSS and cognitive evaluation. 3. Call the neurology department with any questions, changes or problems related to today's visit. 4. I referred her to psychiatry to review her bipolar disease management. She reports to have not seen a psychiatrist in some time. 5. I requested the dental office receptionist to help her figure out when she is scheduled for neuropsych testingwith Dr. Almaraz. 6. Labs re-ordered as the ones Dr. Monterroso had ordered were . Yary Call will go today to get these done. Instructed to contact the department of neurology to get the results of her tests 10 days after the testing is done if she has not yet heard from us either by letter or phone call withthe results. This is also written on her follow-up form. 7. Continue with the Avonex. Stacie Bautista NP 09/18/2005 Summary of MS Testing Date 09-18-05 EDSS Score 6.0 25 foot walk 6.75* *measured in seconds without any assistive device. Date of visit: 09/18/2005 EDSS Score: 6.0 EDSS Score Change: -0 EDSS Progression: baseline EDSS Gauge: Baseline 25 ft timed walking test: 6.75 seconds without any assistive device Current DMT: Avonex Date of visit: 09/18/2005 Baseline relapse rate: unknown - pt. reports was constant relapses before dx Date of last relapse: August 2004 Relapse rate: none this year Relapse rate level: low LOW: Moderate reduction (76-100%) vs. baseline Relapse severity: no relapse since last visit with Dr. Monterroso Relapse recovery: no relapse since last visit with Dr. Monterroso Relapse gauge: 0 Stable Current DMT: Avonex This remainder of this office note has been dictated. Stacie Bautista NP documented in this encounter Consult Notes Stacie Bautista - 09/18/2005 12:00 AM CDTS: I was asked to see Ms. Call by Dr. Marcello Monterroso per note dated 09/06/05 for EDSS evaluation and cognitive evaluation. I would refer you to the note found in EPIC above this note regarding her cognitive evaluation. She reports to have been diagnosed with MS for approximately 20 years. Reports her relapse rate prior to diagnosis was constantly. States I was constantly in attacks. She reports she had steroids for 4 years solid. This ended 1 year ago. Believes her last exacerbation was August. She denies diplopia or loss of vision. Sees the eye doctor once a year. She reports having falling episodes 1 to 2 times a week. Reports she does injure herself. Not currently using a cane/walker or any other assistive device. She reports she could walk 1/2 block without stopping to rest. Might be able to walk further if she could rest. Has paresthesias in her feet bilaterally, right side equaling left side. Has paresthesias in her arms bilaterally from the elbows down. States I do not have a lot of feeling in my arms. She has bladder urgency and incontinence. She has bowel urgency and reports stool incontinence twice a month. States it depends on what phase I'm in. If she is having urgency, she may not be able to get in quickly enough and has some stool leakage. She does have fatigue. She does not nap. She was switched to Trazodone by Dr. Monterroso but wasn't sleeping well, so she went back to amitriptyline. Also reports increase in headache when she was off amitriptyline but when she returned to it, headaches stopped. She feels word finding difficulties are related to anxiety. She finds when she swallows food gets stuck and won't go down. She will take little sips of different fluids to help. She has no trouble swallowing her pills. When asked regarding weakness, she states oh yeah all over in her legs, back and arms. Reports fine motor coordination is not a problem. She administers Avonex weekly. She does this independently. She uses an alarm system to remind her to take it . When questioned regarding flu-like symptoms she reports she does have these but it seems to be constant and not just related to when she is dosing the Avonex. SOCIAL HISTORY: Smoker. ALLERGIES: NKDA. MEDICATIONS: Please see note found in EPIC above this note. O: Blood pressure: 132/82. Pulse: 84. Weight: 247 pounds. Height: 5 feet 3 inches. Casually dressed, fairly well groomed female who appears stated age and in no acute distress. Alert and appropriate to the situation. Full mental status exam found above this note. Speech is fairly fluent, she has some mild dysarthria at times. Visual etienne are intact to confrontation. EOMs full. No complaints of diplopia and no nystagmus is noted. Her left eye appears to deviate in very slightly as compared to the right eye. Left eyelid is slightly elevated as compared to the right side. She is able to perform forehead wrinkles symmetrically. She has a mild flattening noted on the left nasolabial fold. Sternocleidomastoid and trapezius strength strong and equal bilaterally. No Lhermitte's phenomenon. Upper and lower extremity muscle strength strong and equal bilaterally. No palmar drift. She has mild decrease in vibratory sensation in upper and lower extremities bilaterally. She has intact position sense in upper and lower extremities bilaterally. Casual gait is slightly wide-based and a little stiff but no significant ataxia is noted. She is able to maintain Romberg for approximately 4 to 5 seconds but does have swaying. Iticrh-tb-fisy test is fairly accurate bilaterally, she has a little more trouble with the left hand then the right hand but there is no dysmetria noted. Rapid alternating movements with fingers are fairly smooth. Vost-cu-ikfn test is smooth bilaterally. Right big toe is downgoing to stimulation, left big toe is up going to plantar stimulation. Twenty-five foot timed walking test: 6.75 seconds without any assistive device. A: 1. Multiple sclerosis. EDSS Score of 6.0. She does not actually require any assistive device to ambulate however, she could not ambulate 100 meters she doesn't believe without rest. Kurtzke's Functional System Scores are zero under pyramidal functions, score of zero under cerebellar function, score of zero under brain stem function, score of 2 under sensory function given the decrease in vibratory sensation but intact position sense. Score of 3 under bowel and bladder function given the frequent urinary incontinence with urgency, score of zero under visual function and a score of zero under cerebral functions. P: 1. Please see plan found in [facility] under the Memory Evaluation note. DIAGNOSES: Multiple sclerosis (340) Memory loss (780.93) Bipolar disease (296.80) P cc: MD Stacie Allison RN,BAND MANAGER Marcello Monterroso MD documented in this encounter Plan of Treatment Not on filedocumented as of this encounter Results (ABNORMAL) BASIC METABOLIC PANEL (09/18/2005 2:29 PM CDT) [facility] Method Time Signature BUN 13 10 - [...] PM 6 2:31 CDT PM CDT Stacie Jeronimo Michele POLLARD CNP LAB_1 Performing Organization Address [facility] Phon e Number [facility] [employer] [phone] [facility] [address] [place] [id number] LYME ANTIBODY (09/18/2005 2:29 PM CDT) athologist Signature Lyme Antibody 0.46 <0.75 OD [facility] Ratio Comment: Negative Specimen Anatomical Collection Method Collection Time Receive d Time (Source) Location / / Volume Laterality 09/18/2005 2:29 PM 6 2:31 CDT PM CDT Stacie Bautista APRN, CNP LAB_1 Performing Organization Address [facility] Phon e Number [facility] [employer] [phone] [address] TSH, SENSITIVE (WITH REFLEX) (09/18/2005 2:29 PM CDT) athologist [facility] TSH, with 2.46 0.3 - 5.0 [facility] Reflex uIU/ml Specimen Anatomical Collection Method Collection Time Receive d Time (Source) Location / / Volume Laterality 09/18/2005 2:29 PM 6 2:31 CDT PM CDT Stacie Bautista APRN, CNP LAB_1 Performing Organization Address [facility] Phon e Number [facility] [employer] [phone] [address] (ABNORMAL) HEMOGRAM/PLTS/DIFF (09/18/2005 2:29 PM CDT) [facility] gist Method Time Signature WBC 10.5 4.0 - 11.0 [facility] k/ul RBC 4.35 4.0 - 5.2 [facility] M/ul Hemoglobin 13.6 12.0 - [facility] 16.0 g/dl HCT 40.8 36.0 - [facility] 46.0 % MCV 93.9 80 - 100 [facility] fl MCH 31.3 26 - 34 pg [facility] MCHC 33.4 32 - 36 % [facility] RDW 13.3 11.5 - [facility] 14.5 % Platelets 354 150 - 450 [facility] k/ul PMN/Band 45 43 - 72 % [facility] Lymph 43 17 - 43 % [facility] [place] 5 4 - 12 % [facility] Eos 6 0 - 8 % [facility] Baso 1 0 - 1 % [facility] Neutrophil 4.7 1.8 - 7.7 [facility] Absolute k/ul Lymph Absolute 4.5 1.0 - 4.8 [facility] k/ul [place] Absolute 0.5 0.1 - 0.7 [facility] k/ul Eos Absolute 0.7 (H) 0.0 - 0.5 [facility] k/ul Baso Absolute 0.1 0.0 - 0.2 [facility] k/ul Specimen Anatomical Collection Method Collection Time Receive d Time (Source) Location / / Volume Laterality 09/18/2005 2:29 PM 6 2:31 CDT PM CDT Stacie Bautista APRN, CNP LAB_1 Performing Organization Address [facility] Phon e Number [employer] [phone] [facility] [address] [place] [phone] OSCAR SCREEN (09/18/2005 2:29 PM CDT) P athologist Signature OSCAR Screen Negative NEG [facility] Specimen Anatomical Collection Method Collection Time Receive d Time (Source) Location / / Volume Laterality 09/18/2005 2:29 PM 6 2:31 CDT PM CDT Stacie Bautista APRN, CNP LAB_1 Performing Organization Address [facility] Phon e Number [employer] [phone] [facility] [address] [place] [phone] VIT B12 & FOLATE (09/18/2005 2:29 PM CDT) athologist Signature Vitamin B12 235 211 - 911 [facility] pg/ml Folate 5.3 >3.0 ng/ml [facility] Specimen Anatomical Collection Method Collection Time Receive d Time (Source) Location / / Volume Laterality 09/18/2005 2:29 PM 6 2:31 CDT PM CDT Stacie Bautista APRN, CNP LAB_1 Performing Organization Address City/[facility]/ZIP Code Phon e Number [facility] [employer] [phone] [address] (ABNORMAL) HGB A1C (09/18/2005 2:29 PM CDT) athologist Signature Hgb A1c 7.7 (H) 4.3 - 6.1 % [facility] Specimen Anatomical Collection Method Collection Time Receive d Time (Source) Location / / Volume Laterality 09/18/2005 2:29 PM 6 2:31 CDT PM CDT Stacie Bautista APRN, CNP LAB_1 Performing Organization Address City/[facility]/ZIP Code Phon e Number [facility] [employer] [phone] [phone] AST (SGOT) (09/18/2005 2:29 PM CDT) athologist Signature AST (SGOT) 24 <45 U/L [facility] Specimen Anatomical Collection Method Collection Time Receive d Time (Source) Location / / Volume Laterality 09/18/2005 2:29 PM 6 2:31 CDT PM CDT Stacie Bautista APRN, CNP LAB_1 Performing Organization Address [facility] Phon e Number [facility] [employer] [phone] [address] ALT (SGPT) (09/18/2005 2:29 PM CDT) athologist Signature ALT (SGPT) 21 0 - 55 U/L [employer] Specimen Anatomical Collection Method Collection Time Receive d Time (Source) Location / / Volume Laterality 09/18/2005 2:29 PM 6 2:31 CDT PM CDT Stacie Bautista APRN, BAND MANAGER LAB_1 Performing Organization Address City/State/ZIP Code Phon e Number [facility] [phone] [facility] [address] [phone] documented in this encounter Visit Diagnoses Diagnosis Multiple sclerosis ([facility]) - Primary Multiple sclerosis Memory loss Bipolar disorder, unspecified ([facility]) Bipolar disorder, unspecified documented in this encounter Care Teams 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
--- OUTSIDE RECORDS SUMMARY | 2021-11-16 13:12 | XMS_ITS | Encounter Summary ---
:1955 Author Organization [facility] Address [address] [place] [id number] Care Team Providers Name Role Phone Unassigned, Provider Primary Care Provider Unavailable Encounter Details Date Type Department Care Team Description 02/07/2001 [facility] Y Daquan Yates MD [address], [place] [id number] MULTIPLE SCLEROSIS; [facility] [address] [place], [place] [id number] SKIN SENSATION DISTURB; [place] [address] PAIN IN LIMB; COUGH; HYPERTENSION NO S; ESOPHAGEAL REFL UX; SCREENING-CARDI OVASC NEC Social History Tobacco Use Types Packs/Day Years Used Date Smoking Tobacco: Never Assessed Sex Assigned at Date Recorded Not on file documented as of this encounter Discharge Summaries Sabina Zhu - 02/07/2001 12:00 AM CSTDISCHARGE DIAGNOSIS: Multiple sclerosis exacerbation. HISTORY OF PRESENT ILLNESS: This is a 45-year-old woman with a past medical history of multiple sclerosis who was noted to have numbness of her legs and face since one day prior to admission. She stated that it is mainly in her right leg, right side of her face, and her right arm. She has been noticing numbness and a strange feeling in them. She also noticed a change in her walking and stumbling more. She denied any nausea or vomiting. She also noticed headaches lately. She denies any history of fevers, chills, or rigors. She also has a history of urinary incontinence chronically, but it has been controlled with amitriptyline. She has not noticed any increase in her incontinence. She also had a history of fecal incontinence on and off for the past few weeks. She has a history of a rectocele that was repaired in the past, but she has been having some problems lately. She also noticed weakness in the right arm. She also had a cold in the past few days with a dry cough. She feels that her weakness and numbness that she has now are typical of her usual MS flares that she had in the past. Her numbness and weakness are very distressing to her currently and that is why she came into the emergency room. Otherwise, her appetite is good. No dysuria, urgency, or frequency. PAST MEDICAL HISTORY 1. Multiple sclerosis, diagnosed at age 31. She has been followed by Dr Marcello Monterroso at [facility]. She has had flare-ups in the past, but the last time she was hospitalized for it was more than a year ago, in September,. 2. Hypertension for the past 2 years, for which she is on atenolol. 3. Gastroesophageal reflux disease. 4. Urinary incontinence. 5. Status post open cholecystectomy. 6. Bipolar disorder in the past. She is not on any medication currently as this has been stable, according to her report. MEDICATIONS 1. Atenolol 25 mg p.o. q.d. 2. Hydrochlorothiazide 25 mg p.o. q.d. 3. Amitriptyline 100 mg p.o. q. h.s. 4. Aciphex 20 mg p.o. q.d. 5. Premarin 0.625 mg q.d. ALLERGIES: NO KNOWN DRUG ALLERGIES. She states that she does not like to take prednisone because it gives her muscle aches and stomach upset. SOCIAL HISTORY/FAMILY HISTORY/ ADMISSION PHYSICAL EXAMINATION: Please see dictated admission history and physical, Job ID# [id number]. Her vital signs were stable on admission. Positive findings on her examination were: Cranial nerves II through XII grossly intact. Motor: Strength 5/5 in the lower limbs, 5/5 in the left upper limb, and 3/5 in the right upper limb. DTRs 2+ and symmetrical. Babinski's downgoing. She has decreased sensation down her right leg and right foot on the dorsal side. Onutec-jw-eszn coordination test: She had intention tremor, and she had some cerebellar signs on exam. Gait: She drags her feet, mainly on the right side. ADMISSION LABORATORY DATA: White count 10.2, hemoglobin 13.3, platelets 331. Sodium 134, potassium 3.9, BUN 17, creatinine 0.7, chloride 99, bicarbonate 25, calcium 8.9. HOSPITAL COURSE: Hospital course was stable. Neurology was consulted in the emergency room initially, and according to their recommendations was started on 1 gram of Solu-Medrol IV q.d.. The next morning she was seen by the neurologist, and they recommended that she needs Solu-Medrol 1 gram IV q.d. for a total of 5 days. Most likely she is having a multiple sclerosis exacerbation and that steroids should be able to help with that. For hypertension, continue on her usual doses of atenolol and hydrochlorothiazide. She also complained of a cough on and off for the past few weeks. A chest x-ray was negative. Otherwise, her examination was unremarkable too. She also had some left shoulder and arm pain which looked most like musculoskeletal. An electrocardiogram was done in the emergency room that showed basically a normal sinus rhythm, no history of T wave changes. CONDITION ON DISCHARGE: Good. DISCHARGE INSTRUCTIONS: She was given instructions to follow up with primary medical doctor in one week at [facility], and she was given instructions to go to emergency room for Solu-Medrol IV on February 09, 2001. She also was told to get the rest of her Solu-Medrol doses, 2 days' doses, at chemotherapy infusion room at [facility]. She got 2 doses of intravenous Solu-Medrol before she was discharged home. She is to follow up with neurology clinic in 2-[address] Espinoza. j Dictated: 02/15/2001 12:54:06 Sabina Zhu MD Transcribed: 02/17/2001 10:50:50 Patient seen with Doc #: [id number] cc: Betty Linares MD, Primary Daquan Nunez MD, Attending Alonso Hoover MD, Referring 2 Page 2 Patient Name: YARY PHILIPPE DISCHARGE SUMMARY CONFIDENTIAL MEDICAL RECORD [address] [address] Page 1 Patient: YARY PHILIPPE [facility] HPN: Admit Date: 02/07/2001 Date of : 1955 Discharge Date: 02/08/2001 DISCHARGE SUMMARY [employer] documented in this encounter Progress Notes Daquan Yates - 02/07/2001 12:[address] to Dr. Mendes's note for details with which I agree. Basically, this lady has a history of MS and comes in with increasing symptoms of right upper extremity numbness and weakness with left arm clumsiness, some debility and imbalance. She has no visual changes. She denies chest pain, shortness of breath, orthopnea, paroxysmal nocturnal dyspnea or falls. The patient also has had anuria and stool incontinence for a while now. Vital signs are stable this morning. Good oxygen saturation. Normal blood pressure. On examination, her chest is clear. She has no diplopia or abnormal eye movements. She has 4+ strength in the right arm and right leg. Specifically, she has difficulty with extension of the right foot and right hand. She probably has 4/5 strength. Otherwise, she has some incoordination with her left hand. Coordination in the lower extremities are quite normal. Reflexes are symmetric and normal. There is no myoclonus. There is some increased stiffness in the right leg. No findings on her neurological examination today. LABORATORY DATA: The patient's laboratories from last night were within normal limits. White count 10.2. ASSESSMENT AND PLAN: MS relapse: The patient is having MS exacerbation with impaired gait, left hand clumsiness with right hand numbness. She has had episodes like this in the past. She has had even more severe ones. Last summer, she had an instance where she was not able to walk at all. Now, she is able to walk with her walker. She has a well equipped house with handicap help. She has her fiancee and daughter, who is 21 years old, also there with her. She has received 2 doses of Solu-Medrol, one last night and one this morning. These are 1 gram dosages. Per recommendations, probably will complete the 5-week course of 1 gram a day. The patient is currently being seen by Dr. Mckeon from neurology and if he agrees, the patient will probably be sent home later today with a home health nurse. She will receive Solu-Medrol for another 3 days. The patient will followup with Dr. Camp in the clinic in the next 2-3 days. Also will followup with Dr. Espinoza as an outpatient. bkl Dictated: 02/08/2001 11:46:31 Daquan Nunez MD Transcribed: 02/11/2001 03:46:26 Doc #: [id number] cc: Betty Linares MD, Primary Alonso Hoover MD, Referring 1 Page 1 Patient Name: YARY PHILIPPE INTERIM SUMMARY CONFIDENTIAL MEDICAL RECORD [address] [id number] Page 1 Patient: YARY PHILIPPE Location: [facility] HPN: Admit Date: 02/07/2001 Date of : 1955 Discharge Date: 02/08/2001 INTERIM SUMMARY [employer] documented in this encounter Consult Notes Rj Mckeon - 02/07/2001 12:00 AM CSTNEUROLOGY CONSULTATION DATE OF CONSULTATION: 02/08/2001. REQUESTING PHYSICIAN: Aileen Estes MD REASON FOR CONSULTATION: Multiple sclerosis exacerbation, evaluation and plan for treatment. HISTORY OF PRESENT ILLNESS: The patient is a 45-year-old woman with a past medical history of multiple sclerosis who is the past has been followed at [facility] by Dr. Espinoza in the Neurology Clinic. A day prior to her admission on 02/06/2001 she started noticing numbness in her right leg which extended all way from the toes to her groin, numbness over her right face, and worsening of numbness which has been present in the past over her right upper extremity mostly over the outer aspect of the right arm and extensor surface of her forearm. Along with this is having some spasms in the neck and the left upper extremity. As time pasted the symptoms got worse and she came into the emergency room on 02/07/2001 to be admitted. By the time of admission, she had also noticed some clumsiness in the way she walked and some difficulty with walking. She denies any headaches, nausea or vomiting. She denies any visual symptoms. She had noted some recent vague headaches. No history of fevers, no chills or rigors, no burning with passing urine. She has a history of urinary and bowel incontinence which has been controlled on amitriptyline. She denies any shortness of breath or any recent weight loss. She admits to having had a cold in the last few weeks with a dry cough. She denies any fevers. She admits that her current symptoms feel as if these are a multiple sclerosis exacerbation as she has had those in the past as well. REVIEW OF SYSTEMS: See history of present illness. They have all been described in the history. PAST MEDICAL HISTORY 1. History of multiple sclerosis diagnosed when she was 31 years of age. She has been followed in the past by Dr. Mathews and has also been seen by in the past. She currently follows with Dr. Espinoza in the Neurology Clinic. She has had multiple episodes of flare ups including visual symptoms. Her last hospitalization for a flare was in 09/1999. 2. History of hypertension for the last 2 years. 3. Gastroesophageal reflux disease. 4. History of urinary and bowel incontinence. 5. Status post cholecystectomy. 6. History of bipolar disorder in the past but has not been any medications recently. Her bipolar disorder is stable. MEDICATIONS 1. Atenolol 25 mg p.o. q.d. 2. Hydrochlorothiazide 25 mg p.o. q.d. 3. Amitriptyline 100 mg p.o. q.h.s. 4. Aciphex 20 mg p.o. q.d. 5. Premarin 0.625 mg q.d. ALLERGIES: NO KNOWN DRUG ALLERGIES, BUT IN THE PAST WHEN ON PREDNISONE SHE HAS HAD MUSCLE ACHES AND STOMACH UPSET. SOCIAL HISTORY: She lives with her fianc??. At home she also has a 21-year-old daughter with her family. HABITS: She denies smoking, tobacco or any alcohol abuse. She smokes marijuana every day and has done so for a long time. According to her marijuana helps her with her symptoms. FAMILY HISTORY: Significant for hypertension, otherwise unremarkable. PHYSICAL EXAMINATION GENERAL: The patient is lying comfortably in bed, very pleasant to talk to. VITAL SIGNS: Her blood pressure is 130/60, pulse is 80, respiration is 16, temperature is 98.0. HEENT: There is no discharge from the ears or nose. The throat is clear. Her conjunctivae are normal. Head is atraumatic. There are no bruits in the neck. NECK: Is supple. LUNGS: Clear to auscultation bilaterally. HEART: Regular rate and rhythm without any rubs, murmurs, or gallops. ABDOMEN: Soft, nontender without any hepatosplenomegaly. There is a scar from her prior cholecystectomy. Bowel sounds are present. EXTREMITIES: There are no signs of cyanosis, clubbing, or edema. There is full range of motion at all joints. NEUROLOGIC: She is alert and oriented x 3. Her fundi were not visualized. Pupils equal, round, and reactive to light. The pupillary reaction is not as brisk. There is a hint of afferent pupillary defect on the left but I am not too sure at this time. Her extraocular movements are full without any nystagmus. There is a subjective decrease in sensation over the left side of the face. There is no weakness of the jaw. There is no facial asymmetry. No peripheral weakness. Tongue is midline. There is no weakness of the neck muscles. There is no pronator drift. Her left arm does drift upwards. Fine finger movements are very clumsy and slow on the left. Strength is 5/5 bilaterally symmetrical. Deep tendon reflexes are brisk bilaterally. Plantars are bilaterally extensor. Jaw jerk is not brisk. On sensory examination there is numbness in her right lower extremity extending from the toes to the groin. There is numbness over the right outer surface of the arm and extensor surface of the right forearm. The joint and position sense are normal. Her gait, while walking she favors her right leg. Her gait is not broad based. She is able to pivot with mild difficulty. She is unable to tandem. LABORATORY: Her white blood cell count is 10.2, hemoglobin 13.3, platelets 331. Sodium 134, potassium 3.9, BUN 17, creatinine 0.7, chloride 99, bicarb 25, calcium 8.9. Chest x-ray is within normal limits. ASSESSMENT: A 45-year-old female with a history of multiple sclerosis who came in with multiple sclerosis exacerbation. RECOMMENDATIONS 1. I agree and as we had discussed earlier she needs to have a 5 day course of Solu-Medrol. She has already had 2 doses, one yesterday and the second one today. 2. I agree after discussing with Dr. Luis that she can go home and the rest of her doses at home if we can arrange for a home health care nurse to visit her. 3. She does not have to go through a steroid taper. 4. She may need some Tylenol #3 for her left upper extremity pain and the neck spasms. In the past she has used baclofen on a p.r.n. basis which she can still continue to do as needed. 5. She will follow up with Dr. Espinoza in the Neurology Clinic in 2 to 3 weeks. gjb Dictated: 02/08/2001 12:21:03 Rj Mckeon MD Transcribed: 02/09/2001 18:36:45 Doc #: [id number] cc: MD Betty Mccollum MD, Primary Alonso Hoover MD, Referring Daquan Nunez MD, Attending 2 Page 2 Patient Name: YARY PHILIPPE CONSULTATION CONFIDENTIAL MEDICAL RECORD [address] [phone] Page 1 Patient: YARY PHILIPPE Location: [facility] HPN: Admit Date: 02/07/2001 Date of : 1955 Discharge Date: 02/08/2001 CONSULTATION [employer] documented in this encounter OR Notes H&P - Sabina Zhu - 02/07/2001 12:00 AM CSTCHIEF COMPLAINT: Multiple sclerosis exacerbation, per patient's report. HISTORY OF PRESENT ILLNESS: This is a 45-year-old woman with a past medical history of multiple sclerosis who was noted to have numbness of her legs and face since yesterday. She states that mainly in her right leg and right side of face and her right arm she has been noticing numbness and a strange feeling in them since yesterday and also noticed a change in her walking. She has been stumbling more. She denies any nausea or vomiting. She also has noticed some headaches lately. She denies any history of fevers. No chills or rigors. She has a history of urinary incontinence chronically but it has been controlled with amitriptyline. She has not noticed any increase in her incontinence. She also has had fecal incontinence on and off for the past few weeks. She has a history of a rectocele that was repaired in the past but she has been having some problems lately. She also has noticed weakness in her right arm. Denies any light-headedness. Denies any chest pain. Denies any weight loss. She also has had a cold in the past few weeks with a dry cough. She feels that her weakness and numbness that she has now is typical of an MS flare that she had in the past. Her numbness and weakness is very distressing to her currently and that is why she came to the emergency room. Otherwise, her appetite is good. No dysuria, urgency, or frequency. PAST MEDICAL HISTORY 1. Multiple sclerosis, diagnosed at age 31. She is followed by Dr Marcello Monterroso, a neurologist at [facility], but she has not seen him for a year now. She had multiple episodes of flare-ups in the past but the last time that she was hospitalized for it was more than a year ago, in September,. 2. Hypertension for the past 2 years, for which she is on atenolol. 3. GERD. 4. Urinary incontinence. 5. Status post open cholecystectomy. 6. Bipolar disorder in the past. She is not on any medication currently as this has been stable, according to her report. MEDICATIONS 1. Atenolol 25 mg p.o. q.d. 2. Hydrochlorothiazide 25 mg p.o. q.d. 3. Amitriptyline 100 mg p.o. q. h.s. 4. Aciphex 20 mg p.o. q.d. 5. Premarin 0.625 mg q.d. ALLERGIES: NO KNOWN DRUG ALLERGIES. She states that she does not like to take prednisone because it gives her muscle aches and stomach upset. SOCIAL HISTORY: She currently lives with her fiance. She denies smoking tobacco or alcohol abuse. She smokes marijuana everyday and has for a long time. She states that it helps her with her symptoms. FAMILY HISTORY: Significant for hypertension, otherwise unremarkable. No history of multiple sclerosis in the family. No history of heart problems. REVIEW OF SYSTEMS: Negative except for that as mentioned in the HPI. PHYSICAL EXAMINATION GENERAL: In no apparent distress. VITAL SIGNS: Blood pressure 137/61, pulse 88, respiratory rate 16, temperature 97.0. HEENT: Pupils equal, round, and reactive to light. Oropharynx clear. NECK: Supple. Lhermitte sign negative. CHEST: Clear to auscultation bilaterally. CARDIOVASCULAR: Regular rate and rhythm, normal S1 and S2. ABDOMEN: Soft, nontender, nondistended. Bowel sounds present. There is a large abdominal scar from her open cholecystectomy. EXTREMITIES: Well perfused. No edema. NEUROLOGIC: Cranial nerves II through XII grossly intact. Motor exam: Strength is 5/5 in the lower limbs, 5/5 in the left upper limb, and 3/5 in the right upper limb. DTRs 2+ and symmetrical. Babinski's downgoing. Sensory exam: She has decreased sensation down her right leg and right foot on the dorsal side. Vibration and position sense normal. [id number] coordination test: She has intention tremors. She has some cerebellar signs on exam. She also has tremor of both hands, mostly in the left hand. Gait: She drags her feet, mainly on the right side. LABORATORY DATA: White count 10.2, hemoglobin 13.3, platelets 331. Sodium 134, potassium 3.9, BUN 17, creatinine 0.7, chloride 99, bicarbonate 25, calcium 8.9. ASSESSMENT ~ PLAN: Twuto-mef-[id number]-old woman here with multiple sclerosis exacerbation. 1. Multiple sclerosis exacerbation. Neurology was consulted by phone while the patient was in the emergency room. They recommended steroids, Solu-Medrol 1 gram IV q.d., and they will see her in the morning. 2. Hypertension. Will continue with her current medications, atenolol and hydrochlorothiazide. 3. Cough. She has had a cough on and off for the past few weeks. A chest x-ray was negative. 4. Fluids, electrolytes, and nutrition. Will continue encouraging p.o. intake and will Hep-Lock her IV. 5. Complaint of left shoulder and arm pain. I am told that this is not a new pain, that she always has musculoskeletal pain there. An EKG was done in the emergency room that showed basically normal sinus rhythm, no ST or T wave changes. Overall, we will observe her tonight and will await neurology consultation tomorrow morning. If she needs IV steroids, we can arrange home health care for IV Solu-Medrol if feasible. The patient was discussed with Aileen Estes MD. hes Dictated: 02/07/2001 20:36:26 Sabina Zhu MD Transcribed: 02/07/2001 20:47:37 Doc #: [id number] cc: Betty Linares MD, Primary Physician Aileen Estes MD, Attending Physician Alonso Hoover MD, Referring Physician 2 Page 2 Patient Name: YARY PHILIPPE HISTORY ~ PHYSICAL CONFIDENTIAL MEDICAL RECORD [address] [phone] Page 1 Patient: YARY PHILIPPE Location: HPN: Admit Date: 02/07/2001 Date of : 1955 HISTORY ~ PHYSICAL [employer] documented in this encounter ED Notes Jeaneth Pearl - 02/07/2001 12:00 AM CSTLog Number: IMPRESSION: Multiple sclerosis exacerbation. DISPOSITION: Admit to general medicine with neurology consult. HISTORY OF PRESENT ILLNESS: This is a 45-year-old white female with history of MS diagnosed at age 31 coming in for one day history of ascending numbness from her feet up to her abdomen and also right arm and right face numbness. Her last MS exacerbation was a year ago with similar symptoms. In addition to her neurologic complaints the patient also complained of left shoulder blade pain radiating down to her left arm and this has been constant since yesterday and however, today the pain has been progressively increasing. She also complained of urinary and bowel spasm making it difficult for her to control her urine and bowel and she believes that the increase in amitriptyline does help with these symptoms. PAST MEDICAL HISTORY: High blood pressure. MS. SOCIAL HISTORY: She is currently living with her fiancee. No alcohol use or other chemical use. She does smoke a pack about 5 days. SOCIAL HISTORY: Noncontributory. PHYSICAL EXAMINATION: Blood pressure 157/67, pulse 88, respirations 16, temperature 97.0. GENERAL: This is a moderately obese lady interactive, pleasant, alert and oriented in no acute distress. HEENT: Moist mucous membranes. Clear oropharynx. No lymphadenopathy. No thyromegaly. No trauma. CV: Regular rate and rhythm.. S1 S2 without no murmurs. No carotid bruit. PULMONARY: Clear bilaterally. ABDOMEN: Soft, nondistended, nontender, positive bowel sounds. Due to obesity liver and spleen size was hard to assess. NEURO: Cranial nerves II through XI intact 2 over 5 strength in her lower extremities. 5 over 5 strength in the upper extremities. Decreased sensation from T6 down with numbing sensation in C4, C5, C6, C7 and C8. Also numbing decreased sensation on the right side of the face. Reflexes are normal. Babinski is negative. Two point discrimination is poor. Chest x-ray is negative. EKG is negative for any ST changes. At the time of this dictation hemoglobin, chem-8 and UA were pending. ASSESSMENT AND PLAN: This is a 45-year-old white female coming in with what looks like an MS exacerbation. Talking with Dr. Matson in the neurology service, he would like her to be admitted tonight with treatment with Solu-Medrol 1 gram q d for a total of 5 days. Chest x-ray and EKG are negative, therefore, we don't think that her right arm pain is of cardiac origin. No further workup for this at this time. She will be admitted to general medicine [facility] for her MS exacerbation. glt Dictated: 02/07/2001 18:42:39 Jeaneth Pearl MD Transcribed: 02/08/2001 06:13:05 Patient seen with Luis Joseph MD Doc #: [id number] cc: Betty Linares MD, primary 1 Page 1 Patient Name: YARY PHILIPPE Visit Date: 02/07/2001 EMERGENCY MEDICINE NOTE CONFIDENTIAL MEDICAL RECORD [address] [phone] Page 1 Patient: YARY [facility]ILIPPE [facility] 1955 Visit Date: 02/07/2001 EMERGENCY MEDICINE NOTE [employer] documented in this encounter Plan of Treatment Not on filedocumented as of this encounter Procedures Procedure Name Priority Date/Time Associated Diagnosis Comme nts CHEST PA/LATERAL Routine 02/07/2001 5:53 PM Resul ts for this [employer] procedure are i n the results section. documented in this encounter Results CHEST PA/LATERAL (02/07/2001 5:53 PM [employer]) [facility] gist Method Time Signature Chest AP/PA + CHEST, PA AND LATERAL 02/07/2001: [facility] Lateral 2 CLINICAL HISTORY: Cough. RADIO LOGY Views Lung etienne appear clear. Heart and pulmonary vasculature are within normal limits. IMPRESSION: Negative chest. 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
--- OUTSIDE RECORDS SUMMARY | 2021-11-16 13:12 | XMS_ITS | Encounter Summary ---
:1955 Author Organization [employer] [facility] Address [address] [address] Care Team Providers Name Role Phone Unassigned, Provider Primary Care Provider Unavailable Encounter Details Date Type Department Care Team Description 02/09/2001 Office Visit Emergency Dept MULTIPLE SCLEROSIS [address] [place] [address] Social History Tobacco Use Types Packs/Day Years Used Date Smoking Tobacco: Never Assessed Sex Assigned at Date Recorded Not on file documented as of this encounter ED Notes Harry Ardon - 02/09/2001 12:00 AM CSTLog Number: [id number] CHIEF COMPLAINT: She is here for a Solu-Medrol infusion. HISTORY OF PRESENT ILLNESS: This is a 45-year-old female who was just discharged from the hospital 2 days ago for a multiple sclerosis exacerbation. The patient was told to return to the emergency medicine department without our knowledge today to get a gram of Solu-Medrol per Dr. Luis, I believe. The patient states that this episode hospitalized her because she had significant paralysis of the right leg as well as sensory loss. Her motor strength has returned. Sensation is still abnormal. She has no pinprick sensation to the leg that is discernible and gross sensation to the right leg is reduced compared to the left. No other complaints per the patient. PAST MEDICAL HISTORY: Evident for multiple sclerosis. MEDICATIONS: Solu-Medrol, baclofen, amitriptyline, hydrochlorothiazide and atenolol. She must have some high blood pressure. ALLERGIES: DENIES. REVIEW OF SYSTEMS: See the history of present illness and emergency medicine department shingle. SOCIAL HISTORY: She denies alcohol, chemical use or smoking. She is currently home again. She was discharged approximately 2 days ago from the neurology unit. The medical record was reviewed. PHYSICAL EXAMINATION VITAL SIGNS: Blood pressure 139/78, pulse rate 77, respiratory rate 16, temperature 96.8. HEENT: Normocephalic and atraumatic. No lesions or ulcerations. Extraocular movements intact. NECK: Supple. No jugular venous distention. No bruits. No anterior or posterior cervical chain lymphadenopathy. LUNGS: Clear. HEART: Physiologic S1 and S2. ABDOMEN: Soft. No rebound or guarding. NEUROLOGIC: Motor strength in the lower extremity was 5/5. There was no clonus. She had equal and symmetric reflexes in the upper and lower extremities. Equal and bilateral manufacturers agent strength. She was ambulatory. Pinprick sensation to the entire right lower extremity up to the groin was abnormal. She could not discern between sharp or dull. Gross sensation was somewhat decreased compared to the left leg. EMERGENCY MEDICINE DEPARTMENT COURSE: We are going to give her the gram of Rocephin as requested by the [facility] medical service. She is to return here tomorrow and the next day to the chemotherapy clinic to get another gram and then followup with her primary medical doctor. FINAL IMPRESSION 1. Multiple sclerosis. 2. Solu-Medrol treatment. Followup with family practice at next available appointment. bkl Dictated: 02/09/2001 14:45:54 Harry Ardon DO Transcribed: 02/11/2001 03:32:07 Patient seen with Ho Diaz MD Doc #: [id number] cc: Betty Linares MD, Primary Alonso Hoover MD, Referring 1 Page 1 Patient Name: YARY PHILIPPE Visit Date: 02/09/2001 EMERGENCY MEDICINE NOTE CONFIDENTIAL MEDICAL RECORD [address] [phone] Page 1 Patient: YARY PHILIPPE Location: ER HPN: Date of : 1955 Visit Date: 02/09/2001 EMERGENCY MEDICINE NOTE HBORHOOD AIDE documented in this encounter Plan of Treatment Not on filedocumented as of this encounter Visit Diagnoses Diagnosis Multiple sclerosis (HRC) Multiple sclerosis documented in this encounter Care Teams Machine Quilt Stuffer Relationship Specialty Start Date End Date Unassigned, Provider PCP - General 01/12/00 08/29/11 [address] [place] [address] documented as of this encounter
--- OUTSIDE RECORDS SUMMARY | 2021-11-16 13:12 | XMS_ITS | Encounter Summary ---
:1955 Author Organization [facility] Address [address] [place] [address] Care Team Providers Name Role Phone Unassigned, Provider Primary Care Provider Unavailable Encounter Details Date Type Department Care Team Description 10/04/2005 Correspondence External to Marcello Monterroso MD [facility] Social History Tobacco Use Types Packs/Day Years Used Date Smoking Tobacco: Every Day Cigarettes 1 45 Comments: States as of 09-18-05 she is no t buying any more cigarettes Alcohol Use Standard Drinks/Week Comments No 0 (1 standard drink = 0.6 oz pure alcoho l) Sex Assigned at Date Recorded Not on file documented as of this encounter Progress Notes Marcello Monterroso - 10/04/2005 12:00 AM CDT documented in this encounter Plan of Treatment Not on filedocumented as of this encounter Visit Diagnoses Not on filedocumented in this encounter Care Teams Clinical Informaticist Relationship Specialty Start Date End Date Unassigned, Provider PCP - General 01/12/00 08/29/[address] [place] [address] documented as of this encounter
--- OUTSIDE RECORDS SUMMARY | 2021-11-16 13:12 | XMS_ITS | Encounter Summary ---
:1955 Author Organization [facility] Address [address] [place] [address] Care Team Providers Name Role Phone Unassigned, Provider Primary Care Provider Unavailable Encounter Details Date Type Department Care Team Description 09/21/2005 Orders Only Health Specialty Latha ter Radiology Arrived [address] [facility] [place] [address] Social History Tobacco Use Types [...] on filedocumented in this encounter Care Teams Lard Refiner Relationship Specialty Start Date End Date Unassigned, Provider PCP - General 01/12/00 08/29/11 [address] [place] [address] documented as of this encounter
--- OUTSIDE RECORDS SUMMARY | 2021-11-16 13:13 | XMS_ITS | Encounter Summary ---
:1955 Author Organization [facility] Address [address] [place] [address] Care Team Providers Name Role Phone Unassigned, Provider Primary Care Provider Unavailable Encounter Details Date Type Department Care Team Description 01/10/2001 Office Visit [facility] Sabina Zhu MD ENURESIS NOS; [facility] [address] [place] [address] (Wo rk) Social History Tobacco Use Types Packs/Day Years Used Date Smoking Tobacco: Never Assessed Sex Assigned at Date Recorded Not on file documented as of this encounter Progress Notes Sabina Zhu - 01/10/2001 12:00 AM CDTSubjective: This patient is a 45-year-old woman here with urinary incontinence. She has history of multiple sclerosis for the past 14 years and is followed by Dr. Marcello Monterroso [facility]. MEDICATIONS: She is currently on amitriptyline 75 mg p.o. q.h.s., atenolol, hydrochlorothiazide, baclofen p.r.n., Premarin. She states for the past five days she is having trouble with her bladder. Mainly she does not know when her bladder is full and she is having incontinence. She is wetting her underpants 5-6x/day. She also has some stress incontinence associated. She says when she coughs she has incontinence too. Denied any dysuria, denied any nausea or vomiting. No back pain. Denied any abdominal pain. Denied any neurological complaints. No trouble with her vision. No new weaknesses. Denied tingling or numbness. Her last exacerbation was one year ago when she was hospitalized and also was on steroids. On review of symptoms, she says she has also at times she has some trouble with her bowel movements. She has history of rectal surgery in the past for rectocele, and she thinks she had problems after surgery, and she needs to be refixed, but she hates going for surgery at this time. Objective: General: In no apparent distress. Vitals: BP 122/80, P 80, T 97.8. HEENT: Pupils equal, round, reactive to light. Extraocular movements intact. TMs normal. Oropharynx clear. Neck: Supple. Chest: Clear to auscultation bilaterally. CV: Regular rate and rhythm, normal S1 and S2. Abdomen: Soft, nontender, nondistended. Neuro: Cranial nerves II-XII grossly intact. Strength upper limbs 4/5, lower limbs 5/5. DTR 2+. Rectal: Rectocele present. Assessment: Urinary incontinence. It seems to me her incontinence is related to her multiple sclerosis. She also has some stress incontinence component to it. We checked a UA on her today to rule out bladder infection and urine was negative. Plan: We will increase her amitriptyline to 100 mg p.o. q.h.s. and also asked about self-catheterization. She told me that two years ago she used to do that, and it helped her. She felt better and stopped doing that. We will arrange for a home health-care nursing visit to teach her again how to use it. She was very comfortable using it. I gave her a supply of urinary catheters, tray, and also filled out a referral for a home health-care visit to her home. I told her to follow up in the clinic one week from now. At that time we will discuss her rectocele problem. This patient has been discussed with Dr. Gonzalez. [facility] Dictated: 01/10/2001 15:31:00 Transcribed: 01/14/2001 13:58:41 Doc #: [id number] Braydon Gonzalez MD PATIENT NAME: YARY PHILIPPE VISIT DATE: 01/10/2001 AGE: 45Y [facility] Provider Signature Page 2 Confidential Medical Record [facility] [address] [facility] ?? [place] [address] Page Patient: YARY PHILIPPE Visit Date: 01/10/2001 Sabina Zhu MD Date of : 1955 VISIT DATE: 01/10/2001 AGE: 45Y [facility] Provider Signature documented in this encounter Plan of Treatment Not on filedocumented as of this encounter Visit Diagnoses Diagnosis Unspecified urinary incontinence Multiple sclerosis (HRC) Multiple sclerosis documented in this encounter Care Teams Manager Wound Care Relationship Specialty Start Date End Date Unassigned, Provider PCP - General 01/12/00 08/29/[address] [place] [address] documented as of this encounter
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
--- OUTSIDE RECORDS SUMMARY | 2021-11-16 13:13 | XMS_ITS | Encounter Summary ---
:1955 Author Organization [facility] Address [address] [place] [address] Care Team Providers Name Role Phone Unassigned, Provider Primary Care Provider Unavailable Encounter Details Date Type Department Care Team Description 05/02/2000 Office Visit [facility] Dustin Rothman MULTIPLE S CLEROSIS; Physicians Glen Jones MD ANXIETY DI SORDER NOS; PRESCRIPTION RE FILL Social History Tobacco Use Types Packs/Day Years Used Date Smoking Tobacco: Never Assessed Sex Assigned at Date Recorded Not on file documented as of this encounter Plan of Treatment Not on filedocumented as of this encounter Visit Diagnoses Diagnosis Multiple sclerosis (HRC) Multiple sclerosis Anxiety state, unspecified (HRC) Anxiety state, unspecified Issue of repeat prescriptions documented in this encounter Care Teams Golf Ball Trimmer Relationship Specialty Start Date End Date Unassigned, Provider PCP - General 01/12/00 08/29/[address] [place] [address] documented as of this encounter
--- OUTSIDE RECORDS SUMMARY | 2021-11-16 13:13 | XMS_ITS | Encounter Summary ---
:1955 Author Organization [facility] Address [address] [place] [address] Care Team Providers Name Role Phone Unassigned, Provider Primary Care Provider Unavailable Encounter Details Date Type Department Care Team Description 03/13/2000 Orders Only Epic, [place] [address] Social History Tobacco Use Types Packs/Day Years Used Date Smoking Tobacco: Never Assessed Sex Assigned at Date Recorded Not on file documented as of this encounter Plan of Treatment Not on filedocumented as of this encounter Visit Diagnoses Not on filedocumented in this encounter Care Teams Box Tender Relationship Specialty Start Date End Date Unassigned, Provider PCP - General 01/12/00 08/29/[address] [place] [address] documented as of this encounter
--- OUTSIDE RECORDS SUMMARY | 2021-11-16 13:13 | XMS_ITS | Encounter Summary ---
:1955 Author Organization [facility] Address [address], [place] [address] Care Team Providers Name Role Phone Unassigned, Provider Primary Care Provider Unavailable Reason for Visit Reason Comments STOMACH PROBLEM VIA INTERFACE Encounter Details Date Type Department Care Team Description 03/13/2000 [facility] ES[facility]; Alden Gomez MD VACCINE FOR INFLUENZA [address] [address] [place] [address] [place], [place] [phone] [id number] Social History Tobacco Use Types Packs/Day Years Used Date Smoking Tobacco: Never Assessed Sex Assigned at Date Recorded Not on file documented as of this encounter Progress Notes Levi Pozo G - 03/13/2000 12:00 AM CSTS: This 44-year-old woman complains of gastroesophageal reflux symptoms with burning in her chest, worse especially after she eats tomato sauce. She has been using Zantac szwl-lum-askomid, it used to work but doesn't seem to work any more for her. She also has dysphagia, especially when she eats potatoes. She also has MS which apparently has affected her ability. She also has reflux symptoms that go right up into her throat. She has had evaluated swallowing study, apparently it was normal. Her current medications are hydrochlorothiazide 25 mg daily, atenolol 25 mg daily, allergies to medications. O: On physical examination, she appears well in no distress. Blood pressure is 120/60. Weight is 225 pounds. Abdomen exam reveal some mild tenderness in the epigastric area but no masses. A: MS with gastroesophageal reflux disease. P: Aciphex 20 mg twice a day and refer for esophagogastroduodenoscopy. cc: documented in this encounter Plan of Treatment Not on filedocumented as of this encounter Visit Diagnoses Diagnosis Esophageal reflux VACCINE FOR INFLUENZA documented in this encounter Care Teams Inspector Receiving Relationship Specialty Start Date End Date Unassigned, Provider PCP - General 01/12/00 08/29/[address] [place] [address] documented as of this encounter
--- OUTSIDE RECORDS SUMMARY | 2021-11-16 13:13 | XMS_ITS | Encounter Summary ---
:1955 Author [facility] Address [address] [place] [address] Care Team Providers Name Role Phone Unassigned, Provider Primary Care Provider Unavailable Reason for Visit Reason Comments RECTAL BLEEDING Encounter Details Date Type Department Care Team Description 07/10/2000 Telephone Careline Yin Anne, RN RECTAL BLEEDING [address] [place], [place] [address] [phone] [place] [address] Social History Tobacco Use Types Packs/Day Years Used Date Smoking Tobacco: Never Assessed Sex Assigned at Date Recorded Not on file documented as of this encounter Nursing Notes 07/10/2000 11:59 PM CDT >> YIN ANNE SatJul 10, 2000 7:54 PM >> CALL RECEIVED. Contact: Concern:bld in stool Assessment: diarrhea-started last night x20 or more ubaldo.loose today is more watery dirrhea and bld in stool TRIAGE REFERENCE: RECTAL BLEEDING - ADULT CNG (c) 1999 no STAT SX: no black, tarry or burgundy stools and signs of shock, no syncope, diaphoresis, dizzines s, tachycardia; is feeling dizzy and weak but feels that is due to MS last 2-3 days has been weak-before bld has seen 5 ubaldo. of bright bld but slowly increase 1/4 cup w/each eps. Plan:recom. that call 911-but refused strongly recomm. to be driven to [facility] ER, now. ETA:10min has a ride w/her-will leave now caller states is comf. with plan. documented in this encounter Plan of Treatment Not on filedocumented as of this encounter Visit Diagnoses Not on filedocumented in this encounter Care Teams Catheterization Laboratory Technician Relationship Specialty Start Date End Date Unassigned, Provider PCP - General 01/12/00 08/29/11 [address] [place] [address] documented as of this encounter
--- OUTSIDE RECORDS SUMMARY | 2021-11-16 13:13 | XMS_ITS | Encounter Summary ---
:1955 Author Organization [facility] Organization Address [address], [place] [address] Care Team Providers Name Role Phone Unassigned, Provider Primary Care Provider Unavailable Encounter Details Date Type Department Care Team Description 01/28/2001 Office Visit [facility] Sabina Zhu MD Arrived Clinic [address] [place] [address] (Wo rk) Social History Tobacco Use Types Packs/Day Years Used Date Smoking Tobacco: Never Assessed Sex Assigned at Date Recorded Not on file documented as of this encounter Progress Notes Sabina Zhu - 01/28/2001 12:00 AM CSTSubjective: The patient is here to get a flu shot, also to follow up on her urinary incontinence. She is also here with a complaint of rectal prolapse. She was seen in the clinic recently for urinary incontinence and at that time we increased her Ditropan to 100 mg p.o. q.h.s. and also discussed about self-catheterization. She says increasing the Ditropan has helped her and says her bladder is a lot better now. She is not having any problems at all. She did not require any self-cathereterization at all, but says she is having problems with her rectum. She had rectal surgery x3 for rectocele according to her, in 1993 she had a rectocele repair done. She says that on-and-off for the past few years she has been having problems when she sits. She sees a mass coming out and has a tough time emptying her stools too. Lately for the past few months she has been noticing more problems and she says something comes out and she has to push it back when she goes to have a bowel movement. Denies any blood in her stools, no nausea or vomiting, no fever. Remainder of review of systems is negative. She also had a bladder suspension done and has multiple other surgeries in the past. Objective: General: In no acute distress. Vitals as noted on chart. Abdomen: Soft, nontender, nondistended, bowel sounds present. Rectal exam: With anoscope I did not find any prolapse of the rectum. But there was a weakness in her rectal wall posteriorly. Assessment: Probable rectal prolapse. She has had multiple rectal surgeries for rectocele and now she is having problems. Plan: Will refer her to general surgeon for evaluation. Gave influenza shot today. Patient has been discussed with Dr. Hoover. rl Dictated: 01/28/2001 14:25:00 Transcribed: 01/31/2001 10:32:00 Doc #: [id number] PATIENT NAME: YARY PHILIPPE VISIT DATE: 01/28/2001 AGE: 45Y [facility] Provider Signature Page 2 Confidential Medical Record [facility] [address] [place] [address] ?? 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
--- OUTSIDE RECORDS SUMMARY | 2021-11-16 13:13 | XMS_ITS | Encounter Summary ---
:1955 Author Organization [facility] Address [address] [place] [address] Care Team Providers Name Role Phone Unassigned, Provider Primary Care Provider Unavailable Encounter Details Date Type Department Care Team Description 04/10/2000 Office Visit Leroy Leal MD DYSPHAGIA; [address] ESOPHAGEAL REFLUX [place], [place] [address] (Wo rk) Social History Tobacco Use Types Packs/Day Years Used Date Smoking Tobacco: Never Assessed Sex Assigned at Date Recorded Not on file documented as of this encounter Plan of Treatment Not on filedocumented as of this encounter Visit Diagnoses Diagnosis Dysphagia Esophageal reflux documented in this encounter Care Teams Medical Service Representative Relationship Specialty Start Date End Date Unassigned, Provider PCP - General 01/12/00 08/29/11 [address] [place] [address] documented as of this encounter
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
--- OUTSIDE RECORDS SUMMARY | 2021-11-16 13:13 | XMS_ITS | Encounter Summary ---
:1955 Author Organization [facility] Address [address], [place] [address] Care Team Providers Name Role Phone Unassigned, Provider Primary Care Provider Unavailable Encounter Details Date Type Department Care Team Description 11/14/2000 Office Visit [facility] Betty Montalvo MULTIPL E SCLEROSIS [facility] Social History Tobacco Use Types Packs/Day Years Used Date Smoking Tobacco: Never Assessed Sex Assigned at Date Recorded Not on file documented as of this encounter Progress Notes Betty Montalvo - 11/14/2000 12:00 AM CDTSubjective: Patient's here for follow up of emergency room visit. This had occurred on the 07 of November. It was for some neck spasms related to her MS. She ended up getting a gram of Solu-Medrol and some baclofen, which she has found works very well for her muscle spasms with her MS. She also was having some reflux symptoms and she mentioned that she's had trouble paying for prescriptions. She's on Medicare, which doesn't pay for prescriptions. Aciphex usually works very well for her, but she can't afford to pay for it and was wondering if we had any samples. We told her that India Valenzuela may be able to help her in general, but I'd be happy to look for any current samples. Right now she feels like she's doing better with her spasms. They had advanced to being fairly widespread beyond just the neck. Objective: No exam done. Patient looks comfortable today. Assessment: MS exacerbation, now resolved. We did have quite a few samples of Aciphex 20 mg tablets. Plan: Gave her 6 weeks worth of Aciphex tablets 20 mg. She'll talk with Peg Shearen about the prescription medication program. Follow up willie coronel Dictated: 11/14/2000 14:42:17 Transcribed: 11/15/2000 14:42:12 Doc #: [id number] PATIENT NAME: YARY PHILIPPE VISIT DATE: 11/14/2000 AGE: 45Y [facility] Provider Signature Page 1 Confidential Medical Record [facility] [address] [place] [address] ?? [place] [address] Page Patient: YARY PHILIPPE Visit Date: 11/14/2000 Betty Linares MD Date of : 1955 VISIT DATE: 11/14/2000 AGE: 45Y [facility] Provider Signature Betty Montalvo - 11/14/2000 12:00 AM CDTSubjective: Patient's here for follow up of vertigo. She's had problems with this since May and did see the neurologist in September, who basically was not helpful and just tried to reassure her. She did end up having her breast reduction surgery without any difficulty whatsoever. She's now thinks she's noticing some twitching of her hands and her head sometimes, but she's not sure if this is actually happening or not. It seems to be more when she's lying down at bedtime. Discussed that she may want to ask people she's around if they notice anything like that, if she feels comfortable with them. She had mentioned last time I saw her that her neck gets tight at times and that's happening on a daily basis, more towards the end of the day. Objective: No exam done. Assessment: Continuing problems with vertigo and musculoskeletal neck strain. There's no radiation of pain into the arms at all. Plan: We'll refer her to ENT at this point. I gave her some written information about healthy neck and neck exercises. Discussed if neck doesn't improve we could try prescription strength scheduled non-steroidals and add in physical therapy. berna Dictated: 11/14/2000 14:42:17 Transcribed: 11/15/2000 14:45:04 Doc #: [id number] PATIENT NAME: YARY PHILIPPE VISIT DATE: 11/14/2000 AGE: 45Y [facility] Provider Signature Page 1 Confidential Medical Record [facility] [address] [facility] ?? [place] [address] Page Patient: YARY PHILIPPE Visit Date: 11/14/2000 Betty Linares MD Date of : 1955 VISIT DATE: 11/14/2000 AGE: 45Y [facility] Provider Signature documented in this encounter Plan of Treatment Not on filedocumented as of this encounter Visit Diagnoses Diagnosis Multiple sclerosis (HRC) Multiple sclerosis documented in this encounter Care Teams Hydrographic Engineer Relationship Specialty Start Date End Date Unassigned, Provider PCP - General 01/12/00 08/29/[address] [place] [address] documented as of this encounter
--- OUTSIDE RECORDS SUMMARY | 2021-11-16 13:14 | XMS_ITS | Encounter Summary ---
:1955 Author Organization [facility] Address [address] [place] [address] Care Team Providers Name Role Phone Unavailable Primary Care Provider Unavailable Encounter Details Date Type Department Care Team Description 08/09/1999 Office Visit [facility] Zoë Ramirez, MULTIPLE VJE JESSEE; [facility] MD Betty ALLERGIC R HINITIS NOS Social History Tobacco Use Types Packs/Day Years Used Date Smoking Tobacco: Never Assessed Sex Assigned at Date Recorded Not on file documented as of this encounter Plan of Treatment Not on filedocumented as of this encounter Visit Diagnoses Diagnosis Multiple sclerosis (HRC) Multiple sclerosis Allergic rhinitis, cause unspecified documented in this encounter
--- OUTSIDE RECORDS SUMMARY | 2021-11-16 13:14 | XMS_ITS | Encounter Summary ---
:1955 Author Organization [facility] Address [address] [place] [address] Care Team Providers Name Role Phone Unavailable Primary Care Provider Unavailable Encounter Details Date Type Department Care Team Description 09/20/1999 Office Visit [facility] Hargrove M D SPRAIN L[facility]BAR [facility] [address] [place] [address] Social History Tobacco Use Types Packs/Day Years Used Date Smoking Tobacco: Never Assessed Sex Assigned at Date Recorded Not on file documented as of this encounter Plan of Treatment Not on filedocumented as of this encounter Visit Diagnoses Diagnosis Sprain of lumbar region documented in this encounter
--- OUTSIDE RECORDS SUMMARY | 2021-11-16 13:14 | XMS_ITS | Encounter Summary ---
:1955 Author Organization [facility] Address [address] [place] [address] Care Team Providers Name Role Phone Unavailable Primary Care Provider Unavailable Encounter Details Date Type Department Care Team Description 05/03/2014 - Hospital Encounter [facility] Abnormality of gait 02/08/2015 Services , [place], DO and mobility [address] [place] [address] [place], [place] [phone] [id number] Social History Tobacco Use Types Packs/Day Years Used Date Never Assessed Sex Assigned at Date Recorded Not on file documented as of this encounter Medications at Time of Discharge Medication Sig Dispensed Refills Start Date End Date amLODIPine (NORVASC) 10 MG Take 1 tablet by 0 tablet mouth baclofen (LIORESAL) 10 MG Take 1 tablet by 0 06/30 tablet mouth estrogens, conjugated, Take 1 tablet by 0 014 (PREMARIN) 0.625 MG tablet mouth losartan (COZAAR) 100 MG Take 1 tablet by 0 01/24 tablet mouth metFORMIN (GLUCOPHAGE) Take 1 tablet by 0 015 1000 MG tablet mouth montelukast (SINGULAIR) 10 Take 1 tablet by 0 MG tablet mouth nortriptyline (PAMELOR) 50 Take 2 capsules by 0 1 MG capsule mouth oxyCODONE (ROXICODONE) 5 Take 1 tablet by 0 06/19 MG immediate release mouth tablet QUEtiapine (SEROquel) 100 100 mg 4 (four) times 0 07/11/2013 MG tablet a day simvastatin (ZOCOR) 40 MG Take 1 tablet by 0 05/0 04/2013 tablet mouth documented as of this encounter Plan of Treatment Not on filedocumented as of this encounter Visit Diagnoses Diagnosis Abnormality of gait and mobility documented in this encounter
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
--- OUTSIDE RECORDS SUMMARY | 2021-11-16 13:14 | XMS_ITS | Encounter Summary ---
:1955 Author Organization [facility] Address [address] [place] [address] Care Team Providers Name Role Phone Unavailable Primary Care Provider Unavailable Encounter Details Date Type Department Care Team Description 11/29/1999 Office Visit [facility] MU LTIPLE SCLEROSIS; Clinic BIPOLAR AFFECTI VE NOS; HYPERTENSION NO S Social History Tobacco Use Types Packs/Day Years Used Date Smoking Tobacco: Never Assessed Sex Assigned at Date Recorded Not on file documented as of this encounter Plan of Treatment Not on filedocumented as of this encounter Visit Diagnoses Diagnosis Multiple sclerosis (HRC) Multiple sclerosis Bipolar I disorder, most recent episode (or current) unspecified (HRC) Bipolar I disorder, most recent episode (or current) unspecified Unspecified essential hypertension (HRC) Unspecified essential hypertension documented in this encounter
--- OUTSIDE RECORDS SUMMARY | 2021-11-16 13:14 | XMS_ITS | Encounter Summary ---
:1955 Author Organization [facility] Address [address] [place] [address] Care Team Providers Name Role Phone Unassigned, Provider Primary Care Provider Unavailable Reason for Visit Reason Comments MULTIPLE SCLEROSIS Leg pain/spasms. Medication Request Encounter Details Date Type Department Care Team Description 02/04/2000 Telephone Careline Mounika Roca, MULTIPLE SCLEROSIS [address] 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 Contact: self Pt calling in with concerns of left sided pain and cramping, ubaldo from the waist, down into left leg. Pt states she has MS, dx at age 31, and when has flare up of MS cramping/spasm pain is typical. P zohaib will get IV steriods when has a flare up, last received 2 months ago. Pt is requesting me d for the spasms in left leg. Pt states she has taken Flexoril in the past. Pt took 5, 25mg of Am itriptyline one hour ago, with minimal relief. Pt also states she sometimes gets cramping when her K+ is low. TRIAGE REFERENCE: STROKE LIKE SYMPTOMS - ADULT CNG (c) 1999 STAT SYMPTOMS: none per gu ideline. Pt speaks clearly and appropriately. Color of left leg is normal, foot feels cold. No sw elling of leg. Pt is moving her arms and legs fine. Pt denies any chest pain, has ongoing SOB, but denies that it is worse. Pt speaks in full sentences without pause for breath. Pt denies any swea ts or nausea. No pain in neck, jaw, shoulders or arms. Pt states she took 2 nitro yesterday, but n one today. Pt has a stress test scheduled for Saturday. Pt has hx elevated BP, has been on BP meds f or one month. Pt states blood work has been done. Hx: MS Meds: Amytriptyline, Premarin, HCTZ, Atenolol, Nitro prn Allergies: NKA 9:[address] Castañeda. 9:[address] Castañeda. He recommends pt be seen in [facility] or with Dr. Rollins tomorrow.Doctor is not comfortable prescribing over the phone without review of pt's hx. 9:49 PM Informed pt of above. Offered ER tonight, pt declined. Pt is comfortable waiting until germain orrow when she can speak with her doctor. Recommend ER tonight if pain/spasms not lessening. Pt in formed if any chest pain, increasing SOB, nausea, sweaty to call 911. documented in this encounter Plan of Treatment Not on filedocumented as of this encounter Visit Diagnoses Not on filedocumented in this encounter Care Teams Border Patrol Agent Relationship Specialty Start Date End Date Unassigned, Provider PCP - General 01/12/00 08/29/[address] [place] [address] documented as of this encounter
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
--- OUTSIDE RECORDS SUMMARY | 2021-11-16 13:14 | XMS_ITS | Clinical Summary ---
:1955 Author Organization [facility] Address [address] [place] [address] Care Team Providers Name Role Phone Unavailable Primary Care Provider Unavailable Allergies Active Allergy Reactions Severity Noted Date Comments Nitrofurantoin Hives Medium 10/19/2010 Sulfamethoxazole-Trimethoprim Hives Medium 10/19/2010 Medications Medication Sig Dispensed Refills Start Date End Date Status amLODIPine (NORVASC) 10 Take 1 tablet by 0 5 Active MG tablet mouth montelukast (SINGULAIR) Take 1 tablet by 0 5 Active 10 MG tablet mouth estrogens, conjugated, Take 1 tablet by 0 07/30/2013 Active (PREMARIN) 0.625 MG mouth tablet losartan (COZAAR) 100 Take 1 tablet by 0 01/24/2015 Active MG tablet mouth oxyCODONE (ROXICODONE) Take 1 tablet by 0 06/19/2013 Active 5 MG immediate release mouth tablet oxybutynin XL (Ditropan 0 09/16/2017 Active XL) 10 MG 24 hr tablet simvastatin (ZOCOR) 40 Take 1 tablet by 0 07/30/2013 Active MG tablet mouth nortriptyline (PAMELOR) Take 2 capsules 0 01/10/2012 Active 50 MG capsule by mouth metFORMIN (GLUCOPHAGE) Take 1 tablet by 0 01/24/2015 Active 1000 MG tablet mouth glipiZIDE (GLUCOTROL Take 10 mg by 0 11/08/2017 Active XL) 5 MG 24 hr tablet mouth 1 (one) time each day DULoxetine (Cymbalta) 1 tab qam, 2 tabs 0 11/08/[address] capsule qhs donepezil (Aricept) 5 0 12/10/2016 Active MG tablet aspirin 325 MG EC Take 81 mg by 0 Active tablet mouth 1 (one) time each day baclofen (LIORESAL) 10 Take 1 tablet by 0 07/11/2013 Active MG tablet mouth QUEtiapine (SEROquel) 100 mg 4 (four) 0 07/11/2013 Active 100 MG tablet times a day Immunizations Name Administration Dates Next Due Influenza (IM) Preservative Free 01/14/2013, 01/22/2008 Influenza TIV (IM) 02/17/2016, 01/10/2015, 02/11/2014, 01/10/2012, 12/07/2010, 04/26/2005, 01/26/2004, 03/13/2000 Influenza, Unspecified 01/13/2010 Pneumococcal Conjugate 13-Valent 09/21/2019, 08/12/2015 Pneumococcal Polysaccharide 06/29/2014 Td 08/21/2004 Zoster 05/22/2016 Family History Relation Status Comments Brother Alive Daughter 1 Alive Daughter 2 Alive Father Mother Sister Alive Social History Tobacco Use Types Packs/Day Years Used Date Current Every Day Smoker Smokeless Tobacco: Never Used Alcohol Use Standard Drinks/Week Comments Never 0 (1 standard drink = 0.6 oz pure alcoho l) Sex Assigned at Date Recorded Not on file Last Filed Vital Signs Vital Sign Reading Time Taken Comments Blood Pressure 130/70 01/05/2021 10:56 AM CDT Pulse 102 01/05/2021 10:56 AM CDT Temperature 36.3 ??C (97.3 ??F) 01/05/2021 10:56 AM CDT Respiratory Rate 16 01/05/2021 10:56 AM CDT Oxygen Saturation 91% 01/05/2021 10:56 AM CDT Inhaled Oxygen Concentration - - Weight 77.6 kg (171 lb) 01/05/2021 10:56 AM CDT Height 162.6 cm (5' 4) 01/05/2021 10:56 AM CDT Body Mass Index 29.35 01/05/2021 10:56 AM CDT Plan of Treatment Health Maintenance Due Date Last Done Comments Colorectal Cancer Screenin1955 Colonoscopy Glaucoma Screening 67+ Yr 1955 Mammogram 1955 COVID-19 Vaccine (#1) 1955 Fall Risk Performed 1972 [facility] Pneumococcal Vaccine: 65+ 09/20/2020 09/21/2019, Years (2 - PPSV23 or PCV20) 08/12/2015, 06/29/2014 [facility] Pneumococcal Vaccine: <64 Aged Out 09/21/2019, No longer eligible based 08/12/2015, on patient's age to 06/29/2014 complete this to [facility] HPV Vaccines Aged Out No longer eligib le based on patient's age to complete this to pic
--- OUTSIDE RECORDS SUMMARY | 2021-11-16 13:14 | XMS_ITS | Encounter Summary ---
:1955 Author Organization [facility] Address [address] [place] [address] Care Team Providers Name Role Phone Unassigned, Provider Primary Care Provider Unavailable Encounter Details Date Type Department Care Team Description 01/31/2000 Office Visit [facility] [place] CHEST RUT N NOS; [facility] MD Cata MALIGNANT HYPERTENSION; UNASSIGNED CLINI C HYPERTENSION NOS [address] [place] [address] Social History Tobacco Use Types Packs/Day Years Used Date Smoking Tobacco: Never Assessed Sex Assigned at Date Recorded Not on file documented as of this encounter Plan of Treatment Not on filedocumented as of this encounter Visit Diagnoses Diagnosis Chest pain, unspecified Essential hypertension, malignant (HRC) Essential hypertension, malignant Unspecified essential hypertension (HRC) Unspecified essential hypertension documented in this encounter Care Teams Compliance Review Officer Relationship Specialty Start Date End Date Unassigned, Provider PCP - General 01/12/00 08/29/11 [address] [place] [address] documented as of this encounter
--- OUTSIDE RECORDS SUMMARY | 2021-11-16 13:14 | XMS_ITS | Encounter Summary ---
:1955 Author Organization [facility] Address [address] [place] [address] Care Team Providers Name Role Phone Unavailable Primary Care Provider Unavailable Reason for Visit Reason Comments NUMBNESS throat BREATHING PROBLEM allergies and MS numbness. Encounter Details Date Type Department Care Team Description 11/26/1999 Telephone Careline Lillian Holcomb NUMBNESS (throat); [address], RN BREATHING PROBLEM [place], [place] [address] [facility] (allergies and MS [phone] BUILDING numbness. ) [address] [facility] [address] Social History Tobacco Use Types Packs/Day Years Used Date Smoking Tobacco: Never Assessed Sex Assigned at Date Recorded Not on file documented as of this encounter Nursing Notes 11/26/1999 11:59 PM CDT >> SARA Bragg Nov 26, 1999 9:18 PM >> CALL RECEIVED. Contact: has MS has numbness on left side of face have had it on the rt side that remains numb. now fave is s tarting to droop. this happened in past had a steroid tx x2 days IV. breathing sometimes is laboredseems like has to concretrate to breathe. numbness is going down throat tonight. sx are new today. is able to speak in complete sentences. has seasonal allergies. has been at [facility] in past with a spe cilaist who she sees for the MS.had been hospitalized in past for that there. documented in this encounter Plan of Treatment Not on filedocumented as of this encounter Visit Diagnoses Not on filedocumented in this encounter
--- OUTSIDE RECORDS SUMMARY | 2021-11-16 13:14 | XMS_ITS | Encounter Summary ---
:1955 Author Organization [facility] Address [address] [place] [address] Care Team Providers Name Role Phone Unavailable Primary Care Provider Unavailable Encounter Details Date Type Department Care Team Description 01/02/1999 Office Visit [facility] Zoë Ramirez, MULTIPLE SCLE ROSIS; [facility] MD Betty FEMALE CLI MACTERIC STATE Social History Tobacco Use Types Packs/Day Years Used Date Smoking Tobacco: Never Assessed Sex Assigned at Date Recorded Not on file documented as of this encounter Plan of Treatment Not on filedocumented as of this encounter Visit Diagnoses Diagnosis Multiple sclerosis (HRC) Multiple sclerosis Female climacteric state Symptomatic menopausal or female climact reed states documented in this encounter
--- OUTSIDE RECORDS SUMMARY | 2021-11-16 13:14 | XMS_ITS | Encounter Summary ---
:1955 Author Organization [facility] Address [address] [place] [address] Care Team Providers Name Role Phone Unavailable Primary Care Provider Unavailable Encounter Details Date Type Department Care Team Description 11/29/1999 Office Visit [facility] HEADACHE; [address] [place] [address] MULTIPLE SCLEROSIS; [place] [address] HYPERTENSION NOS [phone] Social History Tobacco Use Types Packs/Day Years Used Date Smoking Tobacco: Never Assessed Sex Assigned at Date Recorded Not on file documented as of this encounter Plan of Treatment Not on filedocumented as of this encounter Visit Diagnoses Diagnosis Headache(784.0) Headache Multiple sclerosis (HRC) Multiple sclerosis Unspecified essential hypertension (HRC) Unspecified essential hypertension documented in this encounter
--- OUTSIDE RECORDS SUMMARY | 2021-11-16 13:14 | XMS_ITS | Encounter Summary ---
:1955 Author Organization [facility] Address [address] [place] [address] Care Team Providers Name Role Phone Unavailable Primary Care Provider Unavailable Encounter Details Date Type Department Care Team Description 11/26/1999 Office Visit [facility] Nereida Monroe, MULTIPLE SCLEROSIS; [facility] SKIN SENSATION DISTURB [address] [place], [place] [address] Social History Tobacco Use Types Packs/Day Years Used Date Smoking Tobacco: Never Assessed Sex Assigned at Date Recorded Not on file documented as of this encounter Plan of Treatment Not on filedocumented as of this encounter Visit Diagnoses Diagnosis Multiple sclerosis (HRC) Multiple sclerosis Disturbance of skin sensation documented in this encounter
--- OUTSIDE RECORDS SUMMARY | 2021-11-16 13:14 | XMS_ITS | Encounter Summary ---
:1955 Author Organization [facility] Address [address] [place] [address] Care Team Providers Name Role Phone Unavailable Primary Care Provider Unavailable Encounter Details Date Type Department Care Team Description 05/03/2014 - Hospital Encounter [facility] Abnormality of gait 06/08/2014 Services , DO Td [address] [place] [address] [place], [place] [phone] [id number] Social History Tobacco Use Types Packs/Day Years Used Date Never Assessed Sex Assigned at Date Recorded Not on file documented as of this encounter Medications at Time of Discharge Medication Sig Dispensed Refills Start Date End Date baclofen (LIORESAL) 10 MG Take 1 tablet by 0 06/30 tablet mouth estrogens, conjugated, Take 1 tablet by 0 014 (PREMARIN) 0.625 MG tablet mouth nortriptyline (PAMELOR) 50 Take 2 capsules by 0 1 MG capsule mouth oxyCODONE (ROXICODONE) 5 Take 1 tablet by 0 06/19 MG immediate release mouth tablet QUEtiapine (SEROquel) 100 100 mg 4 (four) times 0 07/11/2013 MG tablet a day simvastatin (ZOCOR) 40 MG Take 1 tablet by 0 050 04/2013 tablet mouth documented as of this encounter Plan of Treatment Not on filedocumented as of this encounter Visit Diagnoses Diagnosis Abnormality of gait documented in this encounter
--- OUTSIDE RECORDS SUMMARY | 2021-11-16 13:14 | XMS_ITS | Encounter Summary ---
:1955 Author Organization [facility] Address [address] [place] [address] Care Team Providers Name Role Phone Unavailable Primary Care Provider Unavailable Encounter Details Date Type Department Care Team Description 01/25/1999 Office Visit [facility] BIPOLAR AFFECTIVE NOS; [address] [facility]. TRANSIENT [place] [address] Social History Tobacco Use Types Packs/Day Years Used Date Smoking Tobacco: Never Assessed Sex Assigned at Date Recorded Not on file documented as of this encounter Plan of Treatment Not on filedocumented as of this encounter Visit Diagnoses Diagnosis Bipolar I disorder, most recent episode (or current) unspecified (HRC) Bipolar I disorder, most recent episode (or current) unspecified Transient alteration of awareness documented in this encounter
--- OUTSIDE RECORDS SUMMARY | 2021-11-16 13:14 | XMS_ITS | Encounter Summary ---
:1955 Author Organization [facility] Address [address] [place] [address] Care Team Providers Name Role Phone Unavailable Primary Care Provider Unavailable Encounter Details Date Type Department Care Team Description 09/13/1999 Office Visit [facility] Zoë Ramirez, MULTIPLE SCLE ROSIS; [facility] MD Betty ELEV BL CA ES W/O HYPERTN Social History Tobacco Use Types Packs/Day Years Used Date Smoking Tobacco: Never Assessed Sex Assigned at Date Recorded Not on file documented as of this encounter Plan of Treatment Not on filedocumented as of this encounter Visit Diagnoses Diagnosis Multiple sclerosis (HRC) Multiple sclerosis Elevated blood pressure reading without diagnosis of hypertension documented in this encounter
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
--- OUTSIDE RECORDS SUMMARY | 2021-11-16 13:14 | XMS_ITS | Continuity of Care Document ---
:1955 Author Organization [facility] Address [address] [address] [place] [address] Phone Care Team Providers Name Role Phone Kulwinder Lawler MD, [place] Unavailable Unavailable Allergies, Adverse Reactions, Alerts Substance Reaction Status Criticality trimethoprim Active No Information sulfamethoxazole Active No Information Medications Medication Instructions Dosage Effective Dates Status Comment s (start - stop) gabapentin 300 mg take 1 capsule by - Active capsule oral route twice a day quetiapine 400 mg take 1 tablet by 400 MG - Active tablet oral route every morning glipizide 10 mg take 1 tablet by 10 MG May- - Active tablet oral route 2 times every day before a meal amlodipine 10 mg take 1 tablet by 10 MG May- - Active tablet oral route every day oxybutynin chloride take 1 tablet by 10 MG - Active ER 10 mg oral route every tablet,extended day release 24 hr Multivitamin Not Available - Active (unknown strength) montelukast 10 mg take 1 tablet by 10 MG Feb- - Active tablet oral route every day in the evening losartan 100 mg take 1 tablet by 100 MG Feb- - Active tablet oral route every day donepezil 5 mg take 1 tablet by 5 MG Feb- - Active tablet oral route every day in the evening simvastatin 40 mg take 1 tablet by 40 MG Feb- - Active tablet oral route every day in the evening baclofen 10 mg take 2 tablet by 20 MG Feb- - Active tablet oral route 3 times every day Drizalma Sprinkle 20 take 1 capsule by 20 MG - Activ e mg capsule,delayed oral route 2 times release every day Procedures Procedure Date Ugi Endo; W/insrt Guide Wire Ugi Endo; W/bx 1/mx Level Iv-surg Path Gross/micro Offic/outpt E&m [facility] Advance Directives Directive Yes / No Effective Date File Name No Information Encounters Encounter Practice Location Reason(s) Diagnoses Date Provider Provide rs Description For Visit Copied on Encounter [facility] No Information [facility] Nuris [facility], Hosp 2 [place]. [address] [address], [facility] [place], [place], [place], [place] [id number], [address], [place] tel:+ [place], [place], [phone] , [place]. tel: [phone] [facility] Dysphagia, Juanpablo CLINTON Referring [facility] unspecified [place]. Provider: Diana MOONEY, Endoscopy typeDuodenitis [address] without [place]. [address], [facility] ia, unspecified [place], [place], [place], [address], [id number], [place], [place], tel:+ [phone] , [place]. tel:+ [phone] Offic/outpt [facility] GI Dysphagia, [place]son STUDIO ARTIST [facility]err [facility] Symptoms unspecified [place]. Provider: [facility] VINICIO, or typeChronic 2 [address] Concerns diarrhea [place]. [address], ([address] [facility] complaint) [place], [place], [place], [address], [id number], [place], [place], tel:+ [phone] , [place]. tel:+ [phone] [facility] No Information [facility] MD Diana MOONEY, [address]. [address] [address], [facility] s, [place], [place], [place] [id number], [address], [place] [facility] tel: [place], [place], [phone] , . tel: [phone] Family History Family Member Type Diagnosis Age At Onset Father Problem (finding) alcoholism Mother Problem (finding) Diabetes mellitus Mother Problem (finding) Heart Disease Father Problem (finding) malignant neoplasm of lung Immunizations Vaccine Date Status Comments Prevnar administered Note: [facility] bi-di rectional interface ; Sour ce: Other Registry zoster vaccine, live administered Note: [facility] bi-directional interface ; Sour ce: Other Registry Influenza, seasonal, injectable administered Note: [facility] bi-directional interface ; Sour ce: Other Registry Prevnar administered Note: [facility] bi-di rectional interface ; Sour ce: Other Registry Influenza, seasonal, injectable administered Note: [facility] bi-directional interface ; Sour ce: Other Registry Pneumovax 23 administered Note: [facility] bi-di rectional interface ; Sour ce: Other Registry Influenza, seasonal, injectable administered Note: [facility] bi-directional interface ; Sour ce: Other Registry Influenza, seasonal, injectable, administered Note: [facility] bi-directional preservative free interface ; So urce: Other Registry Influenza, seasonal, injectable administered Note: [facility] bi-directional interface ; Sour ce: Other Registry Influenza, seasonal, injectable administered Note: [facility] bi-directional interface ; Sour ce: Other Registry influenza virus vaccine, administered Note: [facility] bi-directional unspecified formulation interfac e ; Source: Other Registry Influenza, seasonal, injectable, administered Note: [facility] bi-directional preservative free interface ; So urce: Other Registry Influenza, seasonal, injectable administered Note: [facility] bi-directional interface ; Sour ce: Other Registry Influenza, seasonal, injectable administered Note: [facility] bi-directional interface ; Sour ce: Other Registry Payers Payer name Insurance type Covered alliance party ID Authorization(s ) No Information Social History Type Description Quantity Date Captured Comments Sex Female Smoking Status No Information Chief Complaint And Reason For Visit No Information Reason For Referral Reason For Referral No Information Plan Of Treatment Date Type Action Status Referral Ordered: ordered follow-up visit after procedure Appointment date/timeframe: after procedure Appointment Yary Prince BOOKED History Of Present Illness Encounter Date Complaint History Of Present I llness GI Symptoms or Concerns Patient is a ple asant 65-year-old female now presents for symptom s of dysphagia. Patient reports longstanding history of dysphagia however symptoms hav e been well controlled for many years. She stat es having an upper endoscopy with dilat ion quite a few years ago and since then she h as not had any difficulty swallowing. In the l ast few months she has noticed that dry gianluca ds such as chicken, Georgian fries, and bread are getting stuck often. She states she will have to have small amounts of water between each b ite to get food to move down her esophagus. She states at times she has had the water an d food instantly come back up into her mouth. I f of piece of food material is stuck in her esophagus she will occasionally try to wash it down with water and that will instan tly come back up. Eventually food has been able to pass and she has not presented to the emergency room with any food impaction s ymptoms. She states when laying down to bed a t night she will have reflux and regurg Functional Status Date Functional Assessment No Information Instructions Date Instruction Additional Informati on 1. I have ordered the upper Related to D ysphagia, unspecified endoscopy, you can call us to type schedule this. 2. Try to maintain a soft or liquid diet until you are able to have this procedure done. Present promptly to the ER with a food impaction as we spoke about today. 3. I have ordered that stool test as well and would like to see you in clinic for further diarrhea workup after the upper endoscopy. 4. Follow up after the procedure in clinic. Assessments Type Assessment Date No Information Patient Care Teams Name Effective Dates (start - stop) Status M dora No Information
--- OUTSIDE RECORDS SUMMARY | 2021-11-16 13:14 | XMS_ITS | Encounter Summary ---
:1955 Author Organization [facility] Address [address] [place] [address] Care Team Providers Name Role Phone Unavailable Primary Care Provider Unavailable Encounter Details Date Type Department Care Team Description 12/23/1998 Office Visit [facility] Zoë Ramirez, RESPIRATORY A BNORM NEC; [facility] MD Betty MULTIPLE S CLEROSIS Social History Tobacco Use Types Packs/Day Years Used Date Smoking Tobacco: Never Assessed Sex Assigned at Date Recorded Not on file documented as of this encounter Plan of Treatment Not on filedocumented as of this encounter Visit Diagnoses Diagnosis Other dyspnea and respiratory abnormalit y Multiple sclerosis (HRC) Multiple sclerosis documented in this encounter
--- OUTSIDE RECORDS SUMMARY | 2021-11-16 13:14 | XMS_ITS | Encounter Summary ---
:1955 Author Organization [facility] Address [address] [place] [address] Care Team Providers Name Role Phone Unavailable Primary Care Provider Unavailable Reason for Visit Reason Comments Med Refill Encounter Details Date Type Department Care Team Description 01/10/2018 Refill [place] Justin Sosa MD [address] [facility] [address] [place], [place] [address] [place], [place] [phone] [id number] (Wo rk) Social History Tobacco Use Types Packs/Day Years Used Date Never Assessed Sex Assigned at Date Recorded Not on file documented as of this encounter Miscellaneous Notes Telephone Encounter - Suzy Dee MA - 01/14/2018 9:36 AM CDT Per call to pharmacy, refills available documented in this encounter Plan of Treatment Not on filedocumented as of this encounter Visit Diagnoses Not on filedocumented in this encounter
--- OUTSIDE RECORDS SUMMARY | 2021-11-16 13:14 | XMS_ITS | Encounter Summary ---
:1955 Author Organization [facility] Address [address] [place] [address] Care Team Providers Name Role Phone Unavailable Primary Care Provider Unavailable Reason for Visit Reason Comments Med Refill Encounter Details Date Type Department Care Team Description 02/05/2018 Refill [place] Fern[place] MD [address] [facility] 20 1705 [facility] 20 [place], [place] [address] [place], [place] [phone] (Wo rk) Social History Tobacco Use Types Packs/Day Years Used Date Never Assessed Sex Assigned at Date Recorded Not on file documented as of this encounter Miscellaneous Notes Telephone Encounter - Iris Mace MA - 02/06/2018 3:50 PM CST Noted. CH DIGGER Telephone Encounter - Justin Sosa MD - 02/06/2018 3:45 PM CST Yary is no longer a patient at our clinic so this Rx was not filled. CH DIGGER Telephone Encounter - Hyacinth Bhat MA - 02/06/2018 2:54 PM CST Last refill: 11/05/2017 Patient's last appointment was 11/14/2016 No follow up scheduled at this time. Please advise if patient needs an appointment. Labs are over a year old. CH DIGGER documented in this encounter Plan of Treatment Not on filedocumented as of this encounter Visit Diagnoses Not on filedocumented in this encounter
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
--- OUTSIDE RECORDS SUMMARY | 2021-11-16 13:14 | XMS_ITS | Encounter Summary ---
:1955 Author Organization [facility] Address [address] [place] [address] Care Team Providers Name Role Phone Unavailable Primary Care Provider Unavailable Encounter Details Date Type Department Care Team Description 01/01/2000 Office Visit [facility] Dustin Rothman HYPERTENSI ON NOS; [facility] MD Karen HEADACHE Social History Tobacco Use Types Packs/Day Years Used Date Smoking Tobacco: Never Assessed Sex Assigned at Date Recorded Not on file documented as of this encounter Plan of Treatment Not on filedocumented as of this encounter Visit Diagnoses Diagnosis Unspecified essential hypertension (HRC) Unspecified essential hypertension Headache(784.0) Headache documented in this encounter
--- OUTSIDE RECORDS SUMMARY | 2021-11-16 13:14 | XMS_ITS | Encounter Summary ---
:1955 Author Organization [facility] Address [address] [place] [address] Care Team Providers Name Role Phone Unavailable Primary Care Provider Unavailable Encounter Details Date Type Department Care Team Description 05/11/1999 Office Visit [facility] Betty Montalvo PREVENT IVE CARE EXAM [facility] MD Social History Tobacco Use Types Packs/Day Years Used Date Smoking Tobacco: Never Assessed Sex Assigned at Date Recorded Not on file documented as of this encounter Plan of Treatment Not on filedocumented as of this encounter Visit Diagnoses Diagnosis Routine general medical examination at [facility] Routine general medical examination at a health care facility documented in this encounter
--- OUTSIDE RECORDS SUMMARY | 2021-11-16 13:14 | XMS_ITS | Encounter Summary ---
:1955 Author Organization [facility] Address [address] [place] [address] Care Team Providers Name Role Phone Unavailable Primary Care Provider Unavailable Encounter Details Date Type Department Care Team Description 08/10/1999 Office Visit [facility] SHORT NESS OF BREATH Pulmonary [address] [place] [address] Social History Tobacco Use Types Packs/Day Years Used Date Smoking Tobacco: Never Assessed Sex Assigned at Date Recorded Not on file documented as of this encounter Plan of Treatment Not on filedocumented as of this encounter Visit Diagnoses Diagnosis Shortness of breath documented in this encounter
--- OUTSIDE RECORDS SUMMARY | 2021-11-16 13:14 | XMS_ITS | Encounter Summary ---
:1955 Author Organization [facility] Address [address] [place] [address] Care Team Providers Name Role Phone Unavailable Primary Care Provider Unavailable Encounter Details Date Type Department Care Team Description 08/30/1999 Office Visit [facility] Brook Montalvo, SPASM OF MUSCLE Clinic Social History Tobacco Use Types Packs/Day Years Used Date Smoking Tobacco: Never Assessed Sex Assigned at Date Recorded Not on file documented as of this encounter Plan of Treatment Not on filedocumented as of this encounter Visit Diagnoses Diagnosis Spasm of muscle documented in this encounter
--- OUTSIDE RECORDS SUMMARY | 2021-11-16 13:14 | XMS_ITS | Encounter Summary ---
:1955 Author Organization [facility] Address [address] [place] [address] Care Team Providers Name Role Phone Unavailable Primary Care Provider Unavailable Reason for Visit Reason Comments BLOOD PRESSURE, HIGH Pt of Dr Linares. MULTIPLE SCLEROSIS Medication Questions HEADACHE Encounter Details Date Type Department Care Team Description 12/31/1999 Telephone Careline Gabe Gamez, BLOOD PRESSURE, HIGH [address] RN (Pt [place] [address] AFTER HOURS CARE [place].); MULTIPLE [phone] [facility]; Medication SE Questions; HEADACHE [place] [id number] Social History Tobacco Use Types Packs/Day Years Used Date Smoking Tobacco: Never Assessed Sex Assigned at Date Recorded Not on file documented as of this encounter Nursing Notes 12/31/1999 11:59 PM CDT >> GABE Bragg Dec 31, 1999 11:10 PM >> CALL RECEIVED. Contact: Pt with MS, states she had an attack of her MS 1 month ago, at which time pt had some problems withelevated BP. Calling tonight with elevated BP. BP this am was 176/117, so she took 1/2 Atenolol 25 mg tab at 6:30a. At 7:30a, 1 hr after the Atenolol, BP went up to 185/127, then at 10:30a, BP was 15 3/106, then it stayed around 82-102 diastolic. At 2p, pt took another 1/2 tab Atenolol, (stattes th abigail what they did for her in the hospital). Pt c/o severe LEO all day at top of head, so she took E xcedrin Migraine, 2 tabs and Tylenol Sinus 2 tabs. LEO was relieved and BP went down to 137/82. Just rechecked BP and now BP is 160/109, and c/o the LEO is back, at top of head. Pt asking if she ca n take another Atenolol, and that she would go into see her Dr in am. States last time this happened she sat in ER, where she got Atenolol and Solumedrol, and sent home, (at that time BP was 238/143,1 month ago). Meds: Amitriptyline 75mg at hs. Premarin. Ativan 5mg,took 1 tab at 7:30a. Slonase. Atenolol took per Dr Martin's orders: 1/2 tab po daily, but pt states she just takes it if she needs it. NKA to medications. Consulted with Dr Barone. ER evaluation is the best medical advise, but if pt refuses to go to ER t onight, as long as her pulse is above 60/min, then it is OK to take 25mg Atenolol now, per Dr Viktor ang. CB to pt, she checked her pulse is 91, BP was 182/113. Pt decided to take a 25mg Atenolol now, and will call her clinic in the morning. documented in this encounter Plan of Treatment Not on filedocumented as of this encounter Visit Diagnoses Not on filedocumented in this encounter
--- OUTSIDE RECORDS SUMMARY | 2021-11-16 13:14 | XMS_ITS | Encounter Summary ---
:1955 Author Organization [facility] Address [address] [place] [address] Care Team Providers Name Role Phone Unavailable Primary Care Provider Unavailable Reason for Visit Reason Comments Med Refill Encounter Details Date Type Department Care Team Description 05/07/2018 [place]ill [place] [address] [facility] 1705 [facility] 20 [place], [place] [address] [place], [place] [phone] (Wo rk) Social History Tobacco Use Types Packs/Day Years Used Date Never Assessed Sex Assigned at Date Recorded Not on file documented as of this encounter Miscellaneous Notes Telephone Encounter - Justin Sosa MD - 05/09/2018 11:14 AM CST Call patient's pharmacy and let them know that we are no longer Yary's primary provider and they will need to sent this request to her current provider. RPRISE APPLICATION ADMINISTRATOR Telephone Encounter - Yary Hastings RN - 05/09/2018 9:09 AM CST Pharmacy contacted RPRISE APPLICATION ADMINISTRATOR Telephone Encounter - Justin Sosa MD - 05/09/2018 8:17 AM CST There is a request for Cozaar for Yary Call. She had to change providers secondary to insurance reasons. Please call her pharmacy and let them know that they will have to send this request to her new provider. RPRISE APPLICATION ADMINISTRATOR Telephone Encounter - Hyacinth Mead MA - 05/09/2018 7:03 AM CST LOSARTAN 100MG TABLETS, #90 x 1 refills 11/08/2017 BP: 136/78 11/14/2016 Component Latest Ref Rng & Units 11/14/2016 Fasting? No Sodium 135 - 145 mmol/L 138 Potassium 3.5 - 5.1 mmol/L 4.2 Chloride 98 - 107 mmol/L 99 CO2 22 - 29 mmol/L 25 BUN 5 - 25 mg/dL 16 Creatinine 0.4 - 1.2 mg/dL 0.7 Glucose 70 - 100 mg/dL 175 (H) Calcium, Total,S 8.4 - 10.2 mg/dL 9.9 No pending labs found. Pt was last seen on 11/14/2016 There is no upcoming appointment scheduled for pt at this time. -----Please advise if patient needs an appointment and/or any pre-visit labs, and if necessary please work with your nurses or PSRs to assist in this process. Thank you. RPRISE APPLICATION ADMINISTRATOR documented in this encounter Plan of Treatment Not on filedocumented as of this encounter Visit Diagnoses Not on filedocumented in this encounter
--- OUTSIDE RECORDS SUMMARY | 2021-11-16 13:14 | XMS_ITS | Encounter Summary ---
:1955 Author Organization [facility] Address [address], [place] [address] Care Team Providers Name Role Phone Unavailable Primary Care Provider Unavailable Reason for Visit Reason Comments CONSULT VIA INTERFACE Encounter Details Date Type Department Care Team Description 12/05/1999 Office Visit [facility] Marcello Monterroso MD MULTIPLE SCLEROSIS; [address] [facility]. ANXIETY DISORDER NOS [place], [place] [address] Social History Tobacco Use Types Packs/Day Years Used Date Smoking Tobacco: Never Assessed Sex Assigned at Date Recorded Not on file documented as of this encounter Consult Notes Marcello Monterroso - 12/05/1999 12:00 AM CDTSUBJECTIVE: 44 year-old right-handed woman that I have seen in years past with a diagnosis of probable multiple sclerosis and bipolar affective disorder. Over the years Yary's MS has been very mild, though she occasionally has received steroid medication. I don't have her old records from my previous clinic but will send for them. I hadn't seen Yary in a few years and was called last week because she was having a lot of neck and back pain. Apparently she fell from a horse a month or so ago and was briefly hospitalized. Since then she has received courses of intravenous Solu-Medrol (last weekend) and is reporting a great deal of anxiety, sleeplessness and unsteadiness. MEDICATIONS: Amitriptyline 75 mg hs. Premarin. SOCIAL HISTORY: The patient is a single woman residing with a male friend. She has two daughters who live independently. She uses marijuana from time to time. Denies alcohol and smokes a few cigarettes a day. Yary has been on disability for psychiatric problems for years. REVIEW OF SYSTEMS: Feels dizzy, unsteady and intermittently nauseated. Tells me that her blood pressure has been very high at times. ALLERGIES: None. PHYSICAL EXAMINATION: On examination, moderately obese, anxious woman. Blood pressure 126/92, pulse 100 and regular. Yary is alert, has an intermittent vocal tremor but follows directions accurately. No right left confusion or sensory extinction. Pupils and eye movements are normal. Face is symmetrical. No dysphagia. There is no arm drift. There is a mild tremor of the outstretched hands. Left finger tap is somewhat slower than the right but she is right hand dominant. Reflexes are a bit brisk at the knees but otherwise normal and plantar responses are neutral. Position sense is intact at the toes. Jggcal-il-tdch and cdop-xm-tglz normal. Gait is variably unsteady. It seems when the patient is not aware of being watched that she does better. ASSESSMENT: Probable multiple sclerosis. Anxiety. History of bipolar affective disorder. PLAN: Will give Yary a small prescription for Ativan .5 mg, 1/ 2 to 1 po TID, no refills. Strongly urged her to see her psychiatrist, Dr. Coley, at [facility] and she says she has an appointment. I have asked her to call me with the appointment date to confirm this. Will send for her records from the [facility] and I will see her back in six weeks to follow-up. cc: Betty Linares MD documented in this encounter Plan of Treatment Not on filedocumented as of this encounter Visit Diagnoses Diagnosis Multiple sclerosis (HRC) Multiple sclerosis Anxiety state, unspecified (HRC) Anxiety state, unspecified documented in this encounter
--- OUTSIDE RECORDS SUMMARY | 2021-11-16 13:14 | XMS_ITS | Encounter Summary ---
:1955 Author Organization [facility] Address [address], [place] [address] Care Team Providers Name Role Phone Unassigned, Provider Primary Care Provider Unavailable Reason for Visit Reason Comments Follow-up, NOS VIA INTERFACE Encounter Details Date Type Department Care Team Description 01/24/2000 Office Visit [facility] Marcello Monterroso, MULTIPLE SCLEROSIS; [address] Gabbi [place] BIPOLAR AFFECTIVE NOS [place], [place] [address] Social History Tobacco Use Types Packs/Day Years Used Date Smoking Tobacco: Never Assessed Sex Assigned at Date Recorded Not on file documented as of this encounter Consult Notes Marcello Monterroso - 01/24/2000 12:00 AM CDTSUBJECTIVE: This patient is back for follow-up regarding her MS. When I saw her about a month and a half ago, she was extremely anxious, really almost nonfunctional, her voice tremulous and her gait unsteady. I gave her a short course of Ativan and encouraged her to see a psychiatrist. She tells me that the Ativan helped her, and by the time she saw the psychiatrist, she was feeling much better and didn't need help otherwise. OBJECTIVE: On examination today, her blood pressure is 112/72. She is alert, oriented, appropriate. Gait is stable. Limbs are well coordinated. Voices normal. Reflexes are normally active. Plantar response is downgoing. ASSESSMENT: Probable multiple sclerosis. Bipolar Affective Disorder. PLAN: The patient will continue on her current regimen, which is atenolol 25 mg q.a.m.; hydrochlorothiazide 25 q.a.m.; Elavil 100 mg h.s.; and 1 aspirin daily. She can call or return p.r.n., but I would like to see her back in a year for follow-up. No need for further diagnostic studies at this time. cc: documented in this encounter Plan of Treatment Not on filedocumented as of this encounter Visit Diagnoses Diagnosis Multiple sclerosis (HRC) Multiple sclerosis Bipolar I disorder, most recent episode (or current) unspecified (HRC) Bipolar I disorder, most recent episode (or current) unspecified documented in this encounter Care Teams Screen Cutter And Trimmer Relationship Specialty Start Date End Date Unassigned, Provider PCP - General 01/12/00 08/29/[address] [place] [address] documented as of this encounter
--- OUTSIDE RECORDS SUMMARY | 2021-11-16 13:14 | XMS_ITS | Encounter Summary ---
:1955 Author Organization [facility] Address [address] [place] [address] Care Team Providers Name Role Phone Unavailable Primary Care Provider Unavailable Encounter Details Date Type Department Care Team Description 11/22/1999 Office Visit [facility] MULTIPLE SCLEROSIS; [facility] AMD ALLERGIC RHINITIS NOS; UNASSIGNED CLINI C BIPOLAR AFFECTIVE NOS [address] [place] [address] Social History Tobacco Use Types Packs/Day Years Used Date Smoking Tobacco: Never Assessed Sex Assigned at Date Recorded Not on file documented as of this encounter Plan of Treatment Not on filedocumented as of this encounter Visit Diagnoses Diagnosis Multiple sclerosis (HRC) Multiple sclerosis Allergic rhinitis, cause unspecified Bipolar I disorder, most recent episode (or current) unspecified (HRC) Bipolar I disorder, most recent episode (or current) unspecified documented in this encounter
--- OUTSIDE RECORDS SUMMARY | 2021-11-16 13:14 | XMS_ITS | Encounter Summary ---
:1955 Author Organization [facility] Address [address] [place] [address] Care Team Providers Name Role Phone Unavailable Primary Care Provider Unavailable Reason for Visit Reason Comments BACK PAIN Encounter Details Date Type Department Care Team Description 10/04/1999 Telephone Careline Fabiola Jacobs RN BACK PAIN; ([place] [address] [facility]) [place], [place] [address] [facility] [phone] [place] [address] Social History Tobacco Use Types Packs/Day Years Used Date Smoking Tobacco: Never Assessed Sex Assigned at Date Recorded Not on file documented as of this encounter Nursing Notes 10/04/1999 11:59 PM CDT Addended by: VERONIQUE JACOBS on: 10/04/1999,9:04 PM Modules accepted: Progress Notes Dr. Lola zhong ret call at 8:35pm and stated she [facility] and then call me back. Dr. Zhang called back at 8:55pm and stated she could not call the Percocet in o ceci the phone and she called in Tyl #3 with codienkim for pt. Called pt back and told pt, someone will be picking up the med for pt santosh. - - Veronique Jacobs Started and completed on SatOct 04, 1999 9 :03 PM CALL RECEIVED. Contact: TRIAGE REFERENCE: BACK RUT N/TRAUMA CNG (c)1997 CONCERN/INCIDENT: Pt requesting to have her Percocet refilled. She is out of the medication. Pt has appt to be seen in the clinic tomorrow. Thrown from the horse last . Pt w as brought by ambulance to [facility], pt was sent home. There was no broken bones. The next da y, the sx's were not any better pt was brought by ambulance and admitted for 3 days. Pt came home 2 d ays ago. Pt has MS and hx of spasms in her back she stated. spasms lower back radiates buttocks and l eft knee, across pelvis, stomach, shoulders and back, chest. pain is alittle better today. Pt is havi ng accidents-urinating off and on, she stated from the spasms. Pt does have urinating accidents freq from her MS usually. The accidents are not any worse. Pt has some numbess off and on usually from her MS which is normal for her and she has this now too. It takes 5 min for pt to get up. STAT SYMPTOMS: none per guideline. ASSESSMENT: quality: steady, moderate, and severe. Sx onset: gradual; duration: 7 day(s). Neuro sx: none. UTI symptoms: none. Aggravating factors movment; relieving factors - the Percocet helps. H/O back injury/surgery: no. PMH: MS CURRENT MEDICATIONS: yes; Amytriptyline 100mg at bedtime, Premarin, Valium 1 tablet bid - 5mg. Flexaril 10mg in afternoon. Pt was on Percocet 2 table ts every 4 hrs, she has none left. MEDICATION ALLERGIES: no. HOME TREATMENT: discussed per guideline: . PLAN: Offered pt to be seen in ER and she refused. Adriano De La Garza concierge receptionist for [facility] at 8:04pm.. - Veronique Jacobs Started and completed on SatOct 04, 1999 8:15 PM ------- documented in this encounter Plan of Treatment Not on filedocumented as of this encounter Visit Diagnoses Not on filedocumented in this encounter
--- OUTSIDE RECORDS SUMMARY | 2021-11-16 13:14 | XMS_ITS | Encounter Summary ---
:1955 Author Organization [facility] Address [address] [place] [address] Care Team Providers Name Role Phone Unavailable Primary Care Provider Unavailable Encounter Details Date Type Department Care Team Description 07/31/1999 Office Visit [facility] Zoë Ramirez, ELEV BL PRES W/O HYPERTN; [facility] MD Betty NONSPECIF SKIN ERUPT NEC; SHORTNESS OF BR EATH Social History Tobacco Use Types Packs/Day Years Used Date Smoking Tobacco: Never Assessed Sex Assigned at Date Recorded Not on file documented as of this encounter Plan of Treatment Not on filedocumented as of this encounter Visit Diagnoses Diagnosis Elevated blood pressure reading without diagnosis of hypertension Rash and other nonspecific skin eruption Shortness of breath documented in this encounter
--- OUTSIDE RECORDS SUMMARY | 2021-11-16 13:14 | XMS_ITS | Encounter Summary ---
:1955 Author Organization [facility] Address [address] [place] [address] Care Team Providers Name Role Phone Unassigned, Provider Primary Care Provider Unavailable Encounter Details Date Type Department Care Team Description 05/11/1999 Orders Only Michaela Montalvo MD Social History Tobacco Use Types Packs/Day Years Used Date Smoking Tobacco: Never Assessed Sex Assigned at Date Recorded Not on file documented as of this encounter Plan of Treatment Not on filedocumented as of this encounter Procedures Procedure Name Priority Date/Time Associated Diagnosis Comme nts CRANE OILER CYTOLOGY Routine 05/11/1999 5:07 PM Results f or this VACUUM KETTLE COOK procedure are i n the results section . documented in this encounter Results CRANE OILER CYTOLOGY (05/11/1999 5:07 PM VACUUM KETTLE COOK) [facility] Method Time Signature Hand Salter Cytology (NOTE) [facility]ter Cytology Report Patient Name: YARY PHILIPPE Taken: 05/11/99 Received: 05/12/99 Reported: 05/15/99 Physician(s): MICHAELA FILEDS ([id number]) Final Cytologic Diagnosis Vaginal, diagnostic: ? Satisfactory for evaluation. ? WITHIN NORMAL LIMITS (WNL) Comment [facility]/05/15/99 Electronically Signed Out By YANET Arguello (ASCP) YANET Arguello (ASCP) Source of Specimen(s) Vaginal, diagnostic Clinical History Date of Last Menstrual Period: ? {Not Given} Menstrual History: Contraceptive History: Cancer History: Infection History: Treatment History: Hysterectomy Other Clinical Conditions: Other Related Clinical Data Specimen Anatomical Collection Method Collection Time Receive d Time (Source) Location / / Volume Laterality 05/11/1999 5:07 PM 0 VACUUM KETTLE COOK 12:33 PM VACUUM KETTLE COOK Michaela Ramirez MD UNLISTED CODE Performing Organization Address City/State/ZIP Code Phon e Number [address] [address] [place], [place] [phone] documented in this encounter Visit Diagnoses Not on filedocumented in this encounter Care Teams Service Architect Relationship Specialty Start Date End Date Unassigned, Provider PCP - General 01/12/00 08/29/11 [address] [place] [address] documented as of this encounter
--- OUTSIDE RECORDS SUMMARY | 2021-11-16 13:14 | XMS_ITS | Encounter Summary ---
:1955 Author Organization [facility] Address [address] [place] [address] Care Team Providers Name Role Phone Unavailable Primary Care Provider Unavailable Reason for Visit Reason Comments INJURY, BACK Encounter Details Date Type Department Care Team Description 09/29/1999 Telephone Careline Farhana You RN INJURY, BACK [address] [place], [place] [address] [place] [address] Social History Tobacco Use Types Packs/Day Years Used Date Smoking Tobacco: Never Assessed Sex Assigned at Date Recorded Not on file documented as of this encounter Nursing Notes 09/29/1999 11:59 PM CDT CALL RECEIVED. Contact: TRIAGE REFERENCE: BACK PAIN/TRAUMA CNG (c)1997 CONCERN/INCIDENT: Patient fell off of a horse yesterday and injured her back. She was taken by ambulance to the ER and after xrays was sent home. Pt was seen in clinic today and given percoset and f lexoril for pain. Despite the pain medications, patient is unable to move her legs without severe p ain or turn from side to side. She has not voided since this morning. She would like to be admitte d to the hospital, she is in so much pain. STAT SYMPTOMS: none per guideline. ASSESSMENT: Pain location: L4-L5; radiation: yes; to legs when she moves them; quality: severe, sharp, and stabb ing when she moves. Sx onset: sudden; duration: 1 day(s). Neuro sx: numbness, and tingling yesterday. UTI symptoms: none. Aggravating factors: any movement; relieving factors --pain medications not moving. H/O back injury/surgery: yes; some degeneration from Multiple Sclerosis PMH: MS. CURRENT MEDICATIONS: yes; percoset and flexoril. PLAN: consult ana [facility] Attending: recommend patient be seen in ER for re-evaluation and possible admission or change in pain medication. - Farhana You Started and completed on SatSep 29, 1999 5:40 PM documented in this encounter Plan of Treatment Not on filedocumented as of this encounter Visit Diagnoses Not on filedocumented in this encounter
--- OUTSIDE RECORDS SUMMARY | 2021-11-16 13:14 | XMS_ITS | Encounter Summary ---
:1955 Author Organization [facility] Address [address] [place] [address] Care Team Providers Name Role Phone Unavailable Primary Care Provider Unavailable Encounter Details Date Type Department Care Team Description 06/24/[address] [facility] Multi ple sclerosis Radiology , DO Td ([facility]) [address] [facility] [address] [place] [address] S [phone] [place], [place] [id number] Social History Tobacco Use Types Packs/Day Years [...] 40 MG Take 1 tablet by 0 04/2013 tablet mouth documented as of this encounter Plan of Treatment Not on filedocumented as of this encounter Procedures Procedure Name Priority Date/Time Associated Diagnosis Comme nts MRI BRAIN W WO Routine 06/24/2014 11:06 AM Result s for this CONTRAST CDT procedure are i n the results section. documented in this encounter Results MRI head w and wo IV contrast (06/24/2014 11:06 AM CDT) Anatomical Region Laterality Modality Head and Neck Magnetic Resonance Specimen (Source) Anatomical Collection Method Collection Time Re ceived Time Location / / Volume Laterality 06/24/2014 11:06 AM CDT Narrative 06/24/2014 1:00 PM CDT Clinical History MRI of brain with contrast re: MS r/o ac tive demyelination sx: incontinence and right arm numbness Comparison None. Technique Multiplanar magnetic resonance images of the brain with and without contrast utilizing a demyelination kali col. Contrast Contrast Agent GADOVIST (GADOBUTROL) 9 m illiliter 06/24/2014 INTRAVENOUS Findings Multiple ovoid and flame shaped perivent ricular and pericallosal T2/FLAIR hyperintensities in a pattern c onsistent with demyelination/multiple sclerosis. ??No e nhancing lesions. ??No infratentorial lesions. ??No increased e ffusion signal intensity. Mild parenchymal atrophy. ??Signal voids for vascular structures appear grossly normal. ??No midline shif t, mass or extra-axial fluid collection. ??Minimal sinus disease ante rior ethmoids remainder of the visualized sinuses appear unremarkable. ?? No abnormalities on diffusion-weighted i maging to suggest acute stroke. No abnormalities on susceptibili ty weighted imaging to suggest intracranial hemorrhage or abnor mal hemosiderin deposition. Midline structures appear unremarkable. The craniocervical junction is intact. No mass or mass effect. Evalu ation of T2 sequence demonstrates normal major vascular signa l flow voids. Visualized portions of the orbits, paranasal sinuse s and mastoid air cells are unremarkable. Impression Findings consistent with multiple sclero sis. ??No abnormal diffusion signal intensity or enhancement to sugge st new/active lesions. Procedure Note Elder Paz - 12/22/2017Formatting o f this note might be different from the original. Clinical History MRI of brain with contrast re: MS r/o ac tive demyelination sx: incontinence and right arm numbness Comparison None. Technique Multiplanar magnetic resonance images of the brain with and without contrast utilizing a demyelination kali col. Contrast Contrast Agent GADOVIST (GADOBUTROL) 9 m illiliter 06/24/2014 INTRAVENOUS Findings Multiple ovoid and flame shaped perivent ricular and pericallosal T2/FLAIR hyperintensities in a pattern c onsistent with demyelination/multiple sclerosis. No enh ancing lesions. No infratentorial lesions. No increased eff usion signal intensity. Mild parenchymal atrophy. Signal voids f or vascular structures appear grossly normal. No midline shift, mass or extra-axial fluid collection. Minimal sinus disease anteri or ethmoids remainder of the visualized sinuses appear unremarkable. No abnormalities on diffusion-weighted i maging to suggest acute stroke. No abnormalities on susceptibili ty weighted imaging to suggest intracranial hemorrhage or abnor mal hemosiderin deposition. Midline structures appear unremarkable. The craniocervical junction is intact. No mass or mass effect. Evalu ation of T2 sequence demonstrates normal major vascular signa l flow voids. Visualized portions of the orbits, paranasal sinuse s and mastoid air cells are unremarkable. Impression Findings consistent with multiple sclero sis. No abnormal diffusion signal intensity or enhancement to sugge st new/active lesions. Td Roldan DO IMAscencion MRI PROCEDURES documented in this encounter Visit Diagnoses Diagnosis Multiple sclerosis (HCC) Multiple sclerosis documented in this encounter
--- OUTSIDE RECORDS SUMMARY | 2021-11-16 13:14 | XMS_ITS | Encounter Summary ---
:1955 Author Organization [facility] Address [address] [place] [address] Care Team Providers Name Role Phone Unavailable Primary Care Provider Unavailable Encounter Details Date Type Department Care Team Description 09/29/1999 Office Visit [facility] Zoë Kerry, MYALGIA AND M YOSITIS NOS; [facility] MD Betty MULTIPLE S CLEROSIS Social History Tobacco Use Types Packs/Day Years Used Date Smoking Tobacco: Never Assessed Sex Assigned at Date Recorded Not on file documented as of this encounter Plan of Treatment Not on filedocumented as of this encounter Visit Diagnoses Diagnosis Myalgia and myositis, unspecified Mylagia and myositis, unspecified Multiple sclerosis ([facility]C) Multiple sclerosis documented in this encounter
--- OUTSIDE RECORDS SUMMARY | 2021-11-16 13:14 | XMS_ITS | Encounter Summary ---
:1955 Author Organization [facility] Address [address] [place] [address] Care Team Providers Name Role Phone Unavailable Primary Care Provider Unavailable Reason for Visit Reason Comments Med Refill Encounter Details Date Type Department Care Team Description 11/07/2018 [facility]ill [facility] [address] [facility] [facility] 20 [place], [place] [address] [place], [place] [phone] (Wo rk) Social History Tobacco Use Types Packs/Day Years Used Date Never Assessed Sex Assigned at Date Recorded Not on file documented as of this encounter Miscellaneous Notes Telephone Encounter - Clara Blount RN - 11/11/2018 3:55 PM CDT Pharmacy informed. Please refuse meds Telephone Encounter - Justin Sosa MD - 11/11/2018 2:55 PM CDT Let the pharmacy that is requesting Melissas refill know that we are no longer her prescribing physician and that we can not fill this request at this time. Telephone Encounter - Hyacinth Mead MA - 11/11/2018 1:04 PM CDT Last visit in Provider Department: med not reviewed within the last year. Upcoming appointment with Provider: none Last Rx: OXYBUTYNIN ER 10MG TABLETS, #90 x 3 refills 09/16/2017 Requested Prescriptions Pending Prescriptions Disp Refills ??? oxybutynin XL (DITROPAN-XL) 10 MG 24 hr tablet [Pharmacy Med Name: OXYBUTYNIN ER 10MG TABLETS] 90 tablet 0 Sig: TAKE 1 TABLET BY MOUTH EVERY NIGHT AT BEDTIME Patient is due for an annual appointment. PSR/Nurse: Please contact patient to assist with scheduling. documented in this encounter Plan of Treatment Not on filedocumented as of this encounter Visit Diagnoses Not on filedocumented in this encounter
--- OUTSIDE RECORDS SUMMARY | 2021-11-16 13:14 | XMS_ITS | Encounter Summary ---
:1955 Author Organization [facility] Address [address] [place] [address] Care Team Providers Name Role Phone Unavailable Primary Care Provider Unavailable Encounter Details Date Type Department Care Team Description 08/15/1999 Office Visit [facility] Ben Chávez, CERVICALGIA Clinic CLIENT ACCOUNT REPRESENTATIVE, CALENDER WIND UP HELPER [address] [place], [place] [address] (Wo rk) Social History Tobacco Use Types Packs/Day Years Used Date Smoking Tobacco: Never Assessed Sex Assigned at Date Recorded Not on file documented as of this encounter Plan of Treatment Not on filedocumented as of this encounter Visit Diagnoses Diagnosis Cervicalgia documented in this encounter
--- OUTSIDE RECORDS SUMMARY | 2021-11-16 13:14 | XMS_ITS | Encounter Summary ---
:1955 Author Organization [facility] Address [address] [place] [address] Care Team Providers Name Role Phone Unavailable Primary Care Provider Unavailable Encounter Details Date Type Department Care Team Description 12/07/1999 Office Visit [facility] Dennis Gaffney, ACUTE [facility] PHARYNGITIS(SORE [address] THROAT) [facility] [address] [place] [address] (Wo rk) Social History Tobacco Use Types Packs/Day Years Used Date Smoking Tobacco: Never Assessed Sex Assigned at Date Recorded Not on file documented as of this encounter Plan of Treatment Not on filedocumented as of this encounter Visit Diagnoses Diagnosis Acute pharyngitis documented in this encounter
--- OUTSIDE RECORDS SUMMARY | 2021-11-16 13:14 | XMS_ITS | Encounter Summary ---
:1955 Author Organization [facility] Address [address] [place] [address] Care Team Providers Name Role Phone Unavailable Primary Care Provider Unavailable Encounter Details Date Type Department Care Team Description 10/05/1999 Office Visit [facility] Brook Montalvo MD BACKACHE NOS Clinic Social History Tobacco Use Types Packs/Day Years Used Date Smoking Tobacco: Never Assessed Sex Assigned at Date Recorded Not on file documented as of this encounter Plan of Treatment Not on filedocumented as of this encounter Visit Diagnoses Diagnosis Backache, unspecified documented in this encounter
--- OUTSIDE RECORDS SUMMARY | 2021-11-16 13:15 | XMS_ITS | Encounter Summary ---
:1955 Author Organization [facility] Address [address] [place] [address] Care Team Providers Name Role Phone Unavailable Primary Care Provider Unavailable Encounter Details Date Type Department Care Team Description 06/20/2013 - [facility] Pascual Henriquez PA [address] [place], [place] [address] Acute pancreatitis; 06/24/2013 Encounter Medical/Surgical MallfrancesiRogerhstanleyh Migraine; [address] [facility] Essential hypertension; [place], [place] Type 2 or unsp ecified type diabetes mellitus; [address] Multiple sclerosis (HCC); [phone] Bipolar affecti ve disorder (HCC); Other and unspe cified hyperlipidemia Social History Tobacco Use Types Packs/Day Years Used Date Never Assessed Sex Assigned at Date Recorded Not on file documented as of this encounter Medications at Time of Discharge Medication Sig Dispensed Refills Start Date End Date nortriptyline (PAMELOR) 50 Take 2 capsules by 0 1 MG capsule mouth oxyCODONE (ROXICODONE) 5 Take 1 tablet by 0 06/19 MG immediate release mouth tablet documented as of this encounter Plan of Treatment Not on filedocumented as of this encounter Procedures Procedure Name Priority Date/Time Associated Diagnosis Comme nts LIPID PANEL Routine 06/21/2013 5:30 AM Results f or this CDT procedure are i n the results section. CT ABDOMEN PELVIS W STAT 06/20/2013 9:38 PM Re sults for this CONTRAST CDT procedure are i n the results section. documented in this encounter Results (ABNORMAL) Lipid panel (06/21/2013 5:30 AM CDT) athologist Signature Cholesterol 100 0 - 199 06/21/2013 [facility] mg/dL 7:16 AM [facility] Comment: Recommended by National Cholesterol Education Program (ATP III) Cholesterol Ranges <200 ? Desirable 200-239 ? Borderline high >=240 ? High Triglycerides 241 (A) 0 - 149 mg/dL 06/21/2013 7:16 AM T [facility] Comment: TRIG Ranges <150 ?Normal 150-199 ? Borderline high 200-499 ? High >=500 ? Very high HDL 47 40 - 60 mg/dL 06/21/2013 7:16 AM T [facility] Comment: HDL Ranges <40 ?Low 40-59 ?Normal >=60 ? Optimal LDL Calculated 5 0 - 99 mg/dL 06/21/2013 7:[address] [facility] Comment: LDL Ranges <100 ? Optimal 100-129 ?Near optimal/above op timal 130-159 ?Borderline high 160-189 ?High >=190 ?Very high Fasting? Unknown 06/21/2013 6:[address] [facility] Specimen Anatomical Collection Method Collection Time Receive d Time (Source) Location / / Volume Laterality 06/21/2013 5:30 AM 4 6:28 CDT AM CDT Gildardo Dunn LAB BLOOD ORDERABLES Performing Organization Address City/State/ZIP Code Phon e Number [facility] [address] [place] [address] abdomen pelvis w IV contrast (06/20/2013 9:38 PM CDT) Anatomical Region Laterality Modality Body Computed Tomography Specimen (Source) Anatomical Collection Method Collection Time Re ceived Time Location / / Volume Laterality 06/20/2013 9:38 PM CDT Impressions 06/22/2013 7:37 AM CDT IMPRESSION: ?? 1. Edema involving the head and uncinate process of the pancreas most likely secondary to acute pancreatitis. ?? 2. Relative low density in the uncinate process of the pancreas needs followup to make sure there is no neopla stic lesion. ?? 3. Status post cholecystectomy, appendec demarco and hysterectomy. ?? 4. Mild diffuse fatty liver. ?? Dictated by CLIFFORD Escobar @ 05/31 9:58:55 PM ?? Dictated by: CLIFFORD Escobar @ 21:59:01 Signed by: CLIFFORD Escobar @2013 9:59:01 PM (Electronic Signature) Narrative 06/22/2013 7:37 AM CDT Patient: YARY PHILIPPE Facility: [facility] . Site : 1955 Study: CT-Abdomen/Pelvis WITH IV CONTRAS T ONLY NO ORAL-06/20/2013 9:37:46 PM Ordering Physician: Marlon Ramos Final Report: ?? INDICATION: ?? Epigastric abdominal pain; elevated WBC; elevated lipase . ?? Comparison: None. ?? Technique : ?? CT abdomen and pelvis with intravenous c ontrast; coronal and sagittal reformats. ?? FINDINGS: ?? No abnormal intra pulmonary nodular dens ities are identified. No evidence of pleural effusion. Normal siz e cardiac silhouette without any evidence of pericardial effusion. Mi ld diffuse fatty liver. No splenic pathology. The body and tail of the pancreas are unremarkable. No evidence of pancreatic ductal dilatation. Edema involving the head and uncinate process of the pancreas. Relatively low density identified within the uncina te process of the pancreas probably secondary to pancreatitis. Foll owup is needed, to r/o neoplasm. No evidence of biliary duct di latation. Status post cholecystectomy. No adrenal pathology. K idneys are unremarkable. No obstructive uropathy or perinephric path ology. No retroperitoneal lymphadenopathy. No evidence of abdomina l or pelvic ascites. The appendix is not visualized. Status post hysterectomy. CT study of the pelvis is unremarkable. ?? Procedure Note Conner Newman - 12/22/2017Formattin g of this note might be different from the original. Patient: YARY PHILIPPE Facility: [facility] . Site : 1955 Study: CT-Abdomen/Pelvis WITH IV CONTRAS T ONLY NO ORAL-06/20/2013 9:37:46 PM Ordering Physician: Marlon Ramos Final Report: INDICATION: Epigastric abdominal pain; elevated WBC; elevated lipase . Comparison: None. Technique : CT abdomen and pelvis with intravenous c ontrast; coronal and sagittal reformats. FINDINGS: No abnormal intra pulmonary nodular dens ities are identified. No evidence of pleural effusion. Normal siz e cardiac silhouette without any evidence of pericardial effusion. Mi ld diffuse fatty liver. No splenic pathology. The body and tail of the pancreas are unremarkable. No evidence of pancreatic ductal dilatation. Edema involving the head and uncinate process of the pancreas. Relatively low density identified within the uncina te process of the pancreas probably secondary to pancreatitis. Foll owup is needed, to r/o neoplasm. No evidence of biliary duct di latation. Status post cholecystectomy. No adrenal pathology. K idneys are unremarkable. No obstructive uropathy or perinephric path ology. No retroperitoneal lymphadenopathy. No evidence of abdomina l or pelvic ascites. The appendix is not visualized. Status post hysterectomy. CT study of the pelvis is unremarkable. IMPRESSION: 1. Edema involving the head and uncinate process of the pancreas most likely secondary to acute pancreatitis. 2. Relative low density in the uncinate process of the pancreas needs followup to make sure there is no neopla stic lesion. 3. Status post cholecystectomy, appendec demarco and hysterectomy. 4. Mild diffuse fatty liver. Dictated by CLIFFORD Escobar @ 05/31 9:58:55 PM Dictated by: CLIFFORD Escobar @ 21:59:01 Signed by: CLIFFORD Escobar @2013 9:59:01 PM (Electronic Signature) Richard Mason IMAscencion CT PROCEDURES documented in this encounter Visit Diagnoses Diagnosis Acute pancreatitis Migraine Migraine, unspecified, without mention o f intractable migraine without mention of status migrainosus Essential hypertension Unspecified essential hypertension Type 2 or unspecified type diabetes bryan itus Multiple sclerosis (HCC) Multiple sclerosis Bipolar affective disorder (HCC) Bipolar disorder, unspecified Other and unspecified hyperlipidemia documented in this encounter
--- OUTSIDE RECORDS SUMMARY | 2021-11-16 13:15 | XMS_ITS | Encounter Summary ---
:[address] [facility] Address [address] [place] [address] Care Team Providers Name Role Phone Unavailable Primary Care Provider Unavailable Encounter Details Date Type Department Care Team Description 10/28/2012 - Hospital Encounter [facility] Mallipeddi, Acute mireles creatitis; 10/30/2012 Medical/Surgical Vishwanth Type 2 or unspecified type d iabetes mellitus; [address] Bipolar affective disorder ( HCC); [place], [place] Other depressi ve disorder; [address] Multiple sclerosis ([facility]); [phone] Essential hyper tension; Other and unspe cified hyperlipidemia; Dehydration; Encounter for l jason-term (current) use of aspirin Social History Tobacco Use Types Packs/Day Years Used Date Never Assessed Sex Assigned at Date Recorded Not on file documented as of this encounter Medications at Time of Discharge Medication Sig Dispensed Refills Start Date End Date nortriptyline (PAMELOR) 50 Take 2 capsules by 0 1 MG capsule mouth documented as of this encounter Plan of Treatment Not on filedocumented as of this encounter Visit Diagnoses Diagnosis Acute pancreatitis Type 2 or unspecified type diabetes bryan itus Bipolar affective disorder (HCC) Bipolar disorder, unspecified Other depressive disorder Multiple sclerosis (HCC) Multiple sclerosis Essential hypertension Unspecified essential hypertension Other and unspecified hyperlipidemia Dehydration Encounter for long-term (current) use of aspirin documented in this encounter
== END 2021-11-16 13:09 | disposition home or self-care (01) ==
LOC: KYNREF 13:09
PROVIDERS: PCP Nurse Practitioner Family; Visit Provider Nurse Practitioner Family
DX: R30.0 Dysuria (principal)
CPT/HCPCS: 87086

== ENCOUNTER 2022-02-01 12:07 | Outpatient (CLI) | payer MEDICARE, SELFPAY ==
--- OUTSIDE RECORDS SUMMARY | 2022-02-01 12:10 | XMS_ITS | Encounter Summary ---
:1955 Author [facility] Address [address], [place] [address] Care Team Providers Name Role Phone Unassigned, Provider Primary Care Provider Unavailable Reason for Visit Reason Onset Date Comments QUESTIONS, GENERAL 10/23/2007 Encounter Details Date Type Department Care Team Description 10/23/2007 Telephone [facility] Marcello Monterroso MD QUESTIONS, GENERAL [address] [facility] [place], [place] [address] Social History Tobacco Use Types Packs/Day Years [...] on filedocumented in this encounter Care Teams Cell Tester Relationship Specialty Start Date End Date Unassigned, Provider PCP - General 01/12/00 08/29/[address] [place] [address] documented as of this encounter
--- OUTSIDE RECORDS SUMMARY | 2022-02-01 12:10 | XMS_ITS | Clinical Summary ---
:1955 [facility] Address [address] [place] [address] Care Team Providers Name Role Phone Lew [...] for each transition of care or referral. VersionEye Allergies Active Allergy Reactions Severity Noted Date [...] Addre ss Type Group BCBS BCBS AHA [id number] 2018-Present [address] [address] [address] [employer] CHRISTINA CARABALLO [address] Yary Prince Personal/Family Self 1955 [address] [facility] [address] [facility] [phone] CHRISTINA SHEFFIELD (Work) [phone] Care Teams Pricing Strategist Relationship Specialty Start Date End Date Lew Grewal MD PCP - General Family Practice 12/10/[address] [place] [address] CHRISTINA MARTINEZ [phone]
--- OUTSIDE RECORDS SUMMARY | 2022-02-01 12:10 | XMS_ITS | Encounter Summary ---
:1955 Author Organization Replaced by [facility] Address [address] [place] [address] Care Team Providers Name Role Phone Lew Grewal MD Primary Care Provider Reason for Referral Procedure/Equipment (Routine) - Incomplete Specialty Diagnoses / Procedures Referred By Contact Refer red To Contact Diagnoses Arthralgia, unspecified joint Primary osteoarthritis of both hands Kenrick Juarez MD Procedures XR Hand(s) Arthritis [address] [place], [place] [address] Referral ID Status Reason Start Date Expiration Date Visits V isits Requested Authorized [id number] Incomplete 01/12/2019 04/12/2020 1 1 Reason for Visit Reason Comments Consult, New Patient Encounter Details Date Type Department Care Team Description 01/12/2019 Initial Consult Kenrick Jj MD Arthralgia, unspecified joint (Primary D x); Rheumatology [facility] Primary osteoarthritis of shavon th hands; [address] [facility] [place] [address] [phone] Social History Tobacco Use Types Packs/Day Years [...] Mass Index 29.01 01/12/2019 1:22 PM CDT documented in this encounter Patient Instructions Patient InstructionsKenrick Juarez MD - 01/12/2019 1:30 PM CDT Presence of early signs of osteoarthritis in both hands. In regards to osteoarthritis the main treatment is symptomatic management. Recommend using NSAIDs like ibuprofen or Aleve as needed for pain. Warm therapy like paraffin bath for the hands. Exercises, pool therapy. Topical treatment like Aspercreme with lidocaine cream or Voltaren gel 3-4 times daily for topical use. Recommend a trial with chondroitin, glucosamine and MSM for 1-2 months. There is a component of neuropathy or myofacial pain in the upper extremities and back., Recommend follow up with neurology. Will do blood work and xray of hands today. Based on the test results will decide if further rheumatologic workup is needed. documented in this encounter Progress Notes Kenrick Juarez MD - 01/12/2019 1:30 PM CDT Rheumatology New Patient/Consult Note Referral: Td Roldan DO [address] [place] [address] Chief Complaint Patient presents with ??? Consult, New Patient HPI: Yary Prince is a 63 y.o. female with medical history as stated below including longstanding history of MS is coming today complaining of bilateral upper extremity pain predominantly on the right side involving hands, forearms, shoulders and upper back. Her symptoms are persistent during the day and worse with physical activities. Morning stiffness lasting 15-20 minutes. Complains of decreased hand polls or surveys interviewer and difficulty opening objects. Complains of a numbing and burning sensation in her forearmsand arm predominantly on the right. Complains of pain in the right shoulder and neck muscles on the right. Denies any red hot swollen joints. Denies any skin rash, no fevers or chills. Patient has been taking oxycodone and Tylenol p.r.n. for pain. Has had EMG studies in the past, no records are available in our system. Patient is accompanied by her son. Family history of osteoarthritis with big knuckles in her parents. ROS: Comprehensive review of systems form filled out by the patient for today's visit was reviewed, sent to [place], and is as noted above and/or notable for: Hair loss, coughing nausea, diarrhea, numbness in the arms and bilaterally, dry eyes and dry mouth. Denies any sun sensitivity, no oral ulcers. Patient Active Problem List Diagnosis ??? Multiple sclerosis (HRC) ??? Abnormality of gait ??? Bipolar disorder (HRC) ??? Acute pancreatitis ??? Benign essential hypertension ??? Diabetes mellitus, type 2 (HRC) ??? Diabetic neuropathy (HRC) ??? Essential hematuria ??? GERD (gastroesophageal reflux disease) ? ? Hyperlipidemia LDL goal <100 ??? Migraine headache ??? Relapsing pancreatitis (HRC) ??? Seasonal allergic rhinitis History reviewed. No pertinent past medical history. History reviewed. No pertinent surgical history. Outpatient Encounter Medications as of 01/12/2019 Medication Sig Dispense Refill ??? baclofen (LIORESAL) 10 MG tablet Take 1 Tablet by mouth. ??? CYMBALTA 30MG ORAL CAPS 1 tab qam, 2 tabs qhs ??? diclofenac (VOLTAREN) 1 % gel Apply 2 g to skin 4 times a day. 200 g 11 ??? LISINOPRIL 40 MG OR TABS Take [...] hours as needed forpain. 4 0 ??? QUEtiapine (SEROQUEL) 100 MG tablet QUEtiapine 100 mg oral tablet See Instructions, 1 tab(s) PO in AM, 4 tab s at bedtime ??? salsalate (AKA DISALCID) 750 MG tablet Take 2 Tabs by mouth two times a day. 60 Tab 0 ??? TOPROL XL OR 1 daily ??? ZOMIG 5 MG OR TABS 1 tab prn No facility-administered encounter medications on file as of 01/12/2019. Allergies Allergen Reactions ??? Bactrim [Sulfamethoxazole-Trimethoprim] Hives ??? Nitrofurantoin Hives Social History Substance and Sexual Activity Alcohol Use No Social History Tobacco Use Smoking Status Smoker, Current Status Unknown ??? Packs/day: 1.00 ??? Years: 45.00 ??? Pack years: 45.00 ??? Types: Cigarettes Smokeless Tobacco Never Used EXAM Blood pressure (!) 141/64, pulse 75, height 5' 4 (1.626 m), weight 169 lb (76.7 kg). General Appearance: Pleasant, alert, appropriate appearance for age. No acute distress HEENT Exam: Normocephalic, atraumatic, clear sclera, moist oral mucosa, no ulcers Neck Exam: Supple, no masses or nodes. Chest/Respiratory Exam: Normal chest wall and respirations. Clear to auscultation. Cardiovascular Exam: Regular rate and rhythm, no murmur. Musculoskeletal Exam: Normal muscle bulk. Presence of mild osteoarthritic changes in both hands including 1st CMC joints and DIP joints bilaterally. Presence of tenderness in the forearms, elbows, shoulders and paraspinal muscles in the upper back. No signs of active synovitis. No joint effusion. Fullrange of motion in all 4 extremities. Normal muscle strength in all 4 extremities. Skin: no rash Neurologic Exam: Nonfocal, normal gross motor movement, tone, and coordination. No tremor. Pain score & Rapid 3 score: see flow sheet if these were completed. Lab: Lab Results Component Value Date WBC 12.5 (H) 10/19/2010 RBC 4.53 10/19/2010 Hemoglobin 14.4 10/19/2010 HCT 41.9 10/19/2010 MCV 92.4 10/19/2010 RDW 13.3 10/19/2010 Platelets 418 10/19/2010 Lab Results Component Value Date AST (SGOT) 38 10/19/2010 Lab Results Component Value Date Creatinine 0.76 10/19/2010 Assessment and Plan: Patient has been complaining of upper extremity pain predominantly on the right side. Complains of decreased hand polls or surveys interviewer, difficulty opening objects. Complains of a muscle pain in the upper extremities and burning and numbness starting from the shoulder down to the forearm. The symptoms have been going on for more than 6 months. On physical exam there are no signs of active synovitis. Presence mild osteoarthritis in both hands. In regards to osteoarthritis the main treatment is symptomatic management. Recommend using NSAIDs like ibuprofen or Aleve as needed for pain. Warm therapy like paraffin bath for the hands. Exercises, pool therapy. Topical treatment like Aspercreme with lidocaine cream or Voltaren gel 3-4 times daily for topical use. Recommend a trial with chondroitin, glucosamine and MSM for 1-2 months. There is a component of neuropathy or myofacial pain in the upper extremities and back., Recommend follow up with neurology. Will do blood work and xray of hands today to rule out any inflammatory arthropathy. Based on the test results will decide if further rheumatologic workup is needed. Thank you for letting me participate in the care of this patient. Please don't hesitate to contact me if you have any questions. Kenrick Juarez. Rheumatology [facility] 01/12/2019 This note consists of symbols derived from keyboarding, and voice recognition software. As a result,wrong word or '[id number]' substitutions may have occurred due to the inherent limitations of voice recognition software. There may be errors in the script that have gone undetected. Please consider this when interpreting information found in this chart. documented in this encounter Plan of Treatment Not on filedocumented as of this encounter Results CPK - CK Total (01/12/2019 2:27 PM CDT) P athologist Signature CK, Total 34 29 - 168 01/12/2019 [facility] U/L 3:17 PM CDT LABORATORY Specimen Anatomical Collection Method / Collection Time Recei rosemarie Time (Source) Location / Volume Laterality Blood Venipuncture / 01/12/2019 2:27 01/12/2019 2:27 Unknown PM CDT PM CDT Kenrick Juarez MD LAB_1 Performing Organization Address City/State/ZIP Code Phon e Number [facility] [address] [place] [address] HCAB - Hepatitis C Virus Yuko with Reflex In-House (01/12/2019 2:27 PM CDT) [facility] Method Time Signature Hepatitis C Negative Negative 01/12/2019 [facility] Antibody (Non (Non 7:42 PM CDT LABORATORY Reactive) Reactive) Comment: Antibodies to HCV not detected. Does not exclude the possiblity of exposure to HCV. Specimen Anatomical Collection Method / Collection Time Recei rosemarie Time (Source) Location / Volume Laterality Blood Venipuncture / 01/12/2019 2:27 01/12/2019 2:27 Unknown PM CDT PM CDT Kenrick Juarez MD LAB_1 Performing Organization Address City/[facility] Code Phon e Number [facility] [address] [place] [id number] RHF - Rheumatoid Factor (01/12/2019 2:27 PM CDT) Analysis Performed At [facility] Signature Rheumatoid <15 <=30 IU/mL 01/12/2019 [facility] Factor, 7:22 PM CDT LABORATORY Quantitative Specimen Anatomical Collection Method / Collection Time Recei rosemarie Time (Source) Location / Volume Laterality Blood Venipuncture / 01/12/2019 2:27 01/12/2019 2:27 Unknown PM CDT PM CDT Kenrick Juarez MD LAB_1 Performing Organization Address [facility] Phon e Number [facility] [address] [place] [address] CCPIG - Cyclic Citrullinated Peptide AB (01/12/2019 2:27 PM CDT) [facility] Method Time Signature Anti-CCP Antibody 1 <7 U/mL 01/13/2019 [facility] 12:42 PM [facility]AL [facility] CDT Anti-CCP Antibody Negative Negative 01/13/2019 [facility] Interpretation 12:42 PM CENTRAL LAB CDT Specimen Anatomical Collection Method / Collection Time Recei rosemarie Time (Source) Location / Volume Laterality Blood Venipuncture / 01/12/2019 2:27 01/12/2019 2:27 Unknown PM CDT PM CDT Kenrick Juarez MD LAB_1 Performing Organization Address City/[facility]/ZIP Code Phon e Number [facility] [address] [address] ESR - Sedimentation Rate (01/12/2019 2:27 PM CDT) [facility] [employer] Method Time Signature Sedimentation Rate 10 0 - 20 01/12/2019 [facility] mm/hr 3:50 PM CDT LABORATORY Specimen Anatomical Collection Method / Collection Time Recei rosemarie Time (Source) Location / Volume Laterality Blood Venipuncture / 01/12/2019 2:27 01/12/2019 2:27 Unknown PM CDT PM CDT Kenrick Juarez MD LAB_1 Performing Organization Address City/State/ZIP Code Phon e Number [facility] [address] [place] [address] ELCP - Electrophoresis Brayton To LYLE,Serum (01/12/2019 2:27 PM CDT) Component Value Ref Test Analysis Performed At [facility] [employer] Range Method Time Signature Total Protein 6.7 6.4 - 01/14/2019 [facility] 8.3 12:18 PM CENTRAL LAB g/dL CDT Albumin 3.9 3.4 - 01/14/2019 [facility] 4.8 12:18 PM CENTRAL LAB g/dL CDT Alpha 1 0.3 0.2 - 01/14/2019 [facility] 0.5 12:18 PM CENTRAL LAB g/dL CDT Alpha 2 0.9 0.5 - 01/14/2019 [facility] 1.1 12:18 PM CENTRAL LAB g/dL CDT Beta 0.9 0.6 - 01/14/2019 [facility] 1.1 12:18 PM CENTRAL LAB g/dL CDT Gamma 0.8 0.7 - 01/14/2019 [facility] 1.6 12:18 PM CENTRAL LAB g/dL CDT Monoclonal Roberto 0.0 <=0.0 01/14/2019 [facility] g/dL 12:18 PM [facility]ENTRAL LAB CDT Interpretation No monoclonal 01/14/[address] [facility] protein is 12:18 PM CENTRAL LAB detected in the CDT serum. Additional Not indicated. 01/14/2019 [facility] 12:18 PM CENTRAL LAB CDT Signed Out By [facility] 01/14/2019 [facility] 12:18 PM [facility] Laboratory CDT Specimen Anatomical Collection Method / Collection Time Recei rosemarie Time (Source) Location / Volume Laterality Blood Venipuncture / 01/12/2019 2:27 01/12/2019 2:27 Unknown PM CDT PM CDT Kenrick Juarez MD LAB_1 Performing Organization Address City/[facility]/ZIP Code Phon e Number [facility]AL LAB [address] [address] CRP - C Reactive Protein (01/12/2019 2:27 PM CDT) P athologist Signature C-Reactive <0.5 0.0 - 0.7 01/12/2019 [facility] Protein mg/dL 3:17 PM CDT LABORATORY Specimen Anatomical Collection Method / Collection Time Recei rosemarie Time (Source) Location / Volume Laterality Blood Venipuncture / 01/12/2019 2:27 01/12/2019 2:27 Unknown PM CDT PM CDT Kenrick Juarez MD LAB_1 Performing Organization Address City/[facility]/ZIP Code Phon e Number [facility] [address] [place] [address] URIC - Uric Acid (01/12/2019 2:27 PM CDT) P athologist Signature Uric Acid 5.2 2.6 - 6.0 01/12/2019 [facility] mg/dL 3:17 PM CDT LABORATORY Specimen Anatomical Collection Method / Collection Time Recei rosemarie Time (Source) Location / Volume Laterality Blood Venipuncture / 01/12/2019 2:27 01/12/2019 2:27 Unknown PM CDT PM CDT Kenrick Juarez MD LAB_1 Performing Organization Address City/[facility]/ZIP Code Phon e Number [facility] [address] [place] [address] XR Hand(s) Arthritis (01/12/2019 2:19 PM CDT) [...] encounter Visit Diagnoses Diagnosis Arthralgia, unspecified joint - Primary Primary osteoarthritis of both hands Myalgia Mylagia and myositis, unspecified Arthralgia, unspecified joint Primary osteoarthritis of both hands documented in this encounter Care Teams Vine Fruit Farming Supervisor Relationship Specialty Start Date End Date Lew Grewal MD PCP - General Family Practice 12/10/[address] [place] [address] CHRISTINA MARTINEZ [id number] documented as of this encounter
--- OUTSIDE RECORDS SUMMARY | 2022-02-01 12:10 | XMS_ITS | Encounter Summary ---
:1955 Author Organization [facility] Address [address] [place] [address] Care Team Providers Name Role Phone Unassigned, Provider Primary Care Provider Unavailable Encounter Details Date Type Department Care Team Description 10/19/2010 Orders Only [facility] Multiple sclerosis; [address] [facility]. Abnormality of gait; [place], [place] [address] Other specified visual distu rbances [phone] Social History Tobacco Use Types Packs/Day Years [...] Component Value Ref Test Analysis Performed At [facility] Range Method Time Signature NMO-IgG <1.[address] [facility] Reference Range: <1.6 U/mL NMO-IgG (NOTE) [facility] NMO Evaluation w/Reflex, S ?? Interpretive Comments ? No informative autoantibodies were detected in this ? evaluation. ??A negative result does not exclude a di agnosis ? of a neuromyelitis optica spectrum of disorders. For research use only Test Performed by: [address] , [place] [address] Specimen Anatomical Collection Method Collection Time Receive d Time (Source) Location / / Volume Laterality 10/19/2010 2:58 PM 1 3:04 CDT PM CDT Marcello Monterroso MD LAB_1 Performing Organization Address [facility]/ZIP Code Phon e Number [facility] [employer] [phone] [phone] (ABNORMAL) VIT B12 & FOLATE (10/19/2010 2:58 PM CDT) athologist Signature Vitamin B12 214 (L) 239 - 931 [facility] pg/ml Folate >20.0 >3.0 ng/ml [facility] Specimen Anatomical Collection Method Collection Time Receive d Time (Source) Location / / Volume Laterality 10/19/2010 2:58 PM 1 3:04 CDT PM CDT Marcello Monterroso MD LAB_1 Performing Organization Address [facility] Phon e Number [facility] [employer] [phone] [address] OSCAR SCREEN (10/19/2010 2:58 PM CDT) athologist [facility] OSCAR Screen Negative NEG [facility] Specimen Anatomical Collection Method Collection Time Receive d Time (Source) Location / / Volume Laterality 10/19/2010 2:58 PM 1 3:04 CDT PM CDT Marcello Monterroso MD LAB_1 Performing Organization Address [facility] Phon e Number [facility] [employer] [phone] [address] (ABNORMAL) HGB A1C (10/19/2010 2:58 PM CDT) athologist Signature Hgb A1c 8.9 (H) 4.3 - 6.1 % [facility] Comment: The usual A1C goal for people with diabe yanna, age 18-75, is < 7.0%. Physicians may recommend a higher or lo wer goal for specific individuals. Specimen Anatomical Collection Method Collection Time Receive d Time (Source) Location / / Volume Laterality 10/19/2010 2:58 PM 1 3:04 CDT PM CDT Marcello Monterroso MD LAB_1 Performing Organization Address [facility] Code Phon e Number [facility] [phone] [facility] [address] [place] [phone] ESR (10/19/2010 2:58 PM CDT) P athologist Signature ESR 2 0 - 20 [facility] mm/hr Specimen Anatomical Collection Method Collection Time Receive d Time (Source) Location / / Volume Laterality 10/19/2010 2:58 PM 1 3:04 CDT PM CDT Marcello Monterroso MD LAB_1 Performing Organization Address [facility] Phon e Number [employer] [phone] [address] (ABNORMAL) HEMOGRAM/PLTS (10/19/2010 2:58 PM CDT) P athologist Signature WBC 12.5 (H) 4.0 - 11.0 [facility] k/ul RBC 4.53 4.0 - 5.2 [facility] M/ul Hemoglobin 14.4 12.0 - [facility] 16.0 g/dl HCT 41.9 36.0 - [facility] 46.0 % MCV 92.4 80 - 100 [facility] fl MCH 31.8 26 - 34 pg [facility] MCHC 34.5 32 - 36 [facility] g/dl RDW 13.3 11.5 - [facility] 14.5 % Platelets 418 150 - 450 [facility] k/ul Specimen Anatomical Collection Method Collection Time Receive d Time (Source) Location / / Volume Laterality 10/19/2010 2:58 PM 1 3:04 CDT PM CDT Marcello Monterroso MD LAB_1 Performing Organization Address [facility] Phon e Number [employer] [phone] [facility] [address] [place] [phone] BASIC METABOLIC PANEL (10/19/2010 2:58 PM CDT) Analysis Performed At Patho logist Time Signature BUN 14 7 - 20 [facility] mg/dl Sodium 140 135 - 145 [facility] mmol/L Potassium 4.5 3.5 - 5.3 [facility] mmol/L Chloride 101 95 - 106 [facility] mmol/L CO2 27 22 - 30 [facility] mmol/L Glucose 151 70 - 180 [facility] mg/dl Creatinine 0.76 0.52 - [facility] 1.04 mg/dl GFR, Estimated >60.0 >60 [facility] ml/min/1.7 3m2 GFR, Est., If >60.0 >60 [facility] Black ml/min/1.7 3m2 Calcium 9.8 8.4 - 10.2 [facility] mg/dl Anion Gap 12 7 - 16 [facility] (calc.) mmol/L Specimen Anatomical Collection Method Collection Time Receive d Time (Source) Location / / Volume Laterality 10/19/2010 2:58 PM 1 3:04 CDT PM CDT Marcello Monterroso MD LAB_1 Performing Organization Address City/[facility] Phon e Number [facility] [employer] [phone] [address] AST (SGOT) (10/19/2010 2:58 PM CDT) athologist Signature AST (SGOT) 38 0 - 55 U/L [facility] Specimen Anatomical Collection Method Collection Time Receive d Time (Source) Location / / Volume Laterality 10/19/2010 2:58 PM 1 3:04 CDT PM CDT Marcello Monterroso MD LAB_1 Performing Organization Address [facility] Phon e Number [facility] [employer] [phone] [address] ALT (SGPT) (10/19/2010 2:58 PM CDT) P athologist Signature ALT (SGPT) 43 0 - 69 U/L [facility] Specimen Anatomical Collection Method Collection Time Receive d Time (Source) Location / / Volume Laterality 10/19/2010 2:58 PM 1 3:04 CDT PM CDT Marcello Monterroso MD LAB_1 Performing Organization Address City/State/ZIP Code Phon e Number [facility]IES [phone] [facility] [address] [address] documented in this encounter Visit Diagnoses Diagnosis Multiple sclerosis (HRC) Multiple sclerosis Abnormality of gait Other specified visual disturbances documented in this encounter Care Teams Tubular Products Fabricator Relationship Specialty Start Date End Date Unassigned, Provider PCP - General 01/12/00 08/29/11 [address] [place] [address] documented as of this encounter
--- OUTSIDE RECORDS SUMMARY | 2022-02-01 12:10 | XMS_ITS | Encounter Summary ---
:1955 Author Organization [facility] Address [address], [place] [address] Care Team Providers Name Role Phone Unassigned, Provider Primary Care Provider Unavailable Reason for Visit Reason Onset Date Comments RESULTS, TEST 11/01/2010 Encounter Details Date Type Department Care Team Description 11/01/2010 Telephone [facility] Marcello Russell MD RESULTS, TEST [address] [place], [place] [address] Social History Tobacco Use Types Packs/Day Years [...] is quite low; should begin B12 supplement ([id number]) cystsand get a repeat level and one month. Hemoglobin A1c indicates diabetic control needs improvement. Should followup with PCP on this. Dr. Russell documented in this encounter Plan of Treatment Not on filedocumented as of this encounter Visit Diagnoses Not on filedocumented in this encounter Care Teams Data Recovery Planner Relationship Specialty Start Date End Date Unassigned, Provider PCP - General 01/12/00 08/29/[address] [place] [address] documented as of this encounter
--- OUTSIDE RECORDS SUMMARY | 2022-02-01 12:10 | XMS_ITS | Encounter Summary ---
:1955 Author Organization [facility] Address [address] [place] [address] Care Team Providers Name Role Phone Lew Grewal MD Primary Care Provider Reason for Visit Procedure/Equipment (Routine) - Incomplete Specialty Diagnoses / Procedures Referred By Contact Refer red To Contact Diagnoses Arthralgia, unspecified joint Primary osteoarthritis of both hands Kenrick Juarez MD Procedures XR Hand(s) Arthritis [address] [place], [place] [address] Referral ID Status Reason Start Date Expiration Date Visits V isits Requested Authorized [id number] Incomplete 01/12/2019 04/12/2020 1 1 Encounter Details Date Type Department Care Team Description 01/12/2019 Ancillary [place] Kenrick Juarez MD Arthralgia, unspecified joint; Procedure Radiology [address] [place] Primary osteoarthritis of shavon th hands [address] [facility] [phone] Social History Tobacco Use Types Packs/Day Years [...] hands documented in this encounter Care Teams Communicable Disease Specialist Relationship Specialty Start Date End Date Lew Grewal MD PCP - General Family Practice 12/10/[address] [place] [address] CHRISTINA MARTINEZ [id number] documented as of this encounter
--- OUTSIDE RECORDS SUMMARY | 2022-02-01 12:10 | XMS_ITS | Encounter Summary ---
:1955 Author Organization [facility] Address [address] [place] [address] Care Team Providers Name Role Phone Lew Grewal MD Primary Care Provider Encounter Details Date Type Department Care Team Description 01/12/2019 Lab Visit [facility] Arthralgia, unspecified join t; [id number] [employer] Primary osteoarthritis of shavon th hands; [place] [address] Myalgia [phone] Social History Tobacco Use Types Packs/Day Years [...] CK, Total 34 29 - 168 01/12/2019 [facility] U/L 3:17 PM CDT LABORATORY Specimen Anatomical Collection Method / Collection Time Recei rosemarie Time (Source) Location / Volume Laterality Blood Venipuncture / 01/12/2019 2:27 01/12/2019 2:27 Unknown PM CDT PM CDT Kenrick Juarez MD LAB_1 Performing Organization Address City/State/ZIP Code Phon e Number [facility] [address] [place] [address] HCAB - Hepatitis C Virus [place] with Reflex In-House (01/12/2019 2:27 PM CDT) [facility] gist Method Time Signature Hepatitis C Negative Negative 01/12/2019 [facility] Antibody (Non (Non 7:42 PM CDT LABORATORY Reactive) Reactive) Comment: Antibodies to HCV not detected. Does not exclude the possiblity of exposure to HCV. Specimen Anatomical Collection Method / Collection Time Recei rosemarie Time (Source) Location / Volume Laterality Blood Venipuncture / 01/12/2019 2:27 01/12/2019 2:27 Unknown PM CDT PM CDT Kenrick Juarez MD LAB_1 Performing Organization Address [facility]/ZIP Code Phon e Number [facility] [address] [place] [address] RHF - Rheumatoid Factor (01/12/2019 2:27 PM CDT) Analysis Performed At [facility] logist Time Signature Rheumatoid <15 <=30 IU/mL 01/12/2019 [facility] Factor, 7:22 PM CDT LABORATORY Quantitative Specimen Anatomical Collection Method / Collection Time Recei rosemarie Time (Source) Location / Volume Laterality Blood Venipuncture / 01/12/2019 2:27 01/12/2019 2:27 Unknown PM CDT PM CDT Kenrick Juarez MD LAB_1 Performing Organization Address [facility] Phon e Number [facility] [address] [place] [address] CCPIG - Cyclic Citrullinated Peptide AB (01/12/2019 2:27 PM CDT) [facility] Method Time Signature Anti-CCP Antibody 1 [...] Kenrick Juarez MD LAB_1 Performing Organization Address [facility] Phon e Number [facility] [address] [address] ESR - Sedimentation Rate (01/12/2019 2:27 PM CDT) [facility] gist Method Time Signature Sedimentation Rate 10 0 - 20 01/12/2019 [place] mm/hr 3:50 PM CDT LABORATORY Specimen Anatomical Collection Method / Collection Time Recei rosemarie Time (Source) Location / Volume Laterality Blood Venipuncture / 01/12/2019 2:27 01/12/2019 2:27 Unknown PM CDT PM CDT Kenrick Juarez MD LAB_1 Performing Organization Address City/State/ZIP Code Phon e Number [facility] [address] [place] [address] ELCP - Electrophoresis [place] To LYLE,Serum (01/12/2019 2:27 PM CDT) Component Value Ref Test Analysis Performed At [facility] gist Range Method Time Signature Total Protein 6.7 6.4 - 01/14/2019 [facility] 8.3 12:18 PM [facility] g/dL CDT Albumin 3.9 3.4 - 01/14/2019 [facility] 4.8 12:18 PM [facility] g/dL CDT Alpha 1 0.3 0.2 - 01/14/2019 [facility] 0.5 12:18 PM [facility] g/dL CDT Alpha 2 0.9 0.5 - 01/14/2019 [facility] 1.1 12:18 PM [facility] g/dL CDT Beta 0.9 0.6 - 01/14/2019 [facility] 1.1 12:18 PM [facility] g/dL CDT Gamma 0.8 0.7 - 01/14/2019 [facility] 1.6 12:18 PM [facility] g/dL CDT Monoclonal Roberto 0.0 <=0.0 01/14/2019 [facility] g/dL 12:18 PM [facility] CDT Interpretation No monoclonal 01/14/2019 [facility] protein is 12:18 PM [facility] detected in the CDT serum. Additional Not indicated. 01/14/2019 [facility] Testing 12:18 PM [facility] CDT Signed Out By [facility] 01/14/2019 [facility] 12:18 PM [facility] Laboratory CDT Specimen Anatomical Collection Method / Collection Time Recei rosemarie Time (Source) Location / Volume Laterality Blood Venipuncture / 01/12/2019 2:27 01/12/2019 2:27 Unknown PM CDT PM CDT Kenrick Juarez MD LAB_1 Performing Organization Address City/State/ZIP Code Phon e Number [facility] [address] [address] CRP - C Reactive Protein (01/12/2019 2:27 PM CDT) P athologist Signature C-Reactive <0.5 0.0 - 0.7 01/12/2019 [facility] Protein mg/dL 3:17 PM CDT LABORATORY Specimen Anatomical Collection Method / Collection Time Recei rosemarie Time (Source) Location / Volume Laterality Blood Venipuncture / 01/12/2019 2:27 01/12/2019 2:27 Unknown PM CDT PM CDT Kenrick Juarez MD LAB_1 Performing Organization Address [facility] Phon e Number [facility] [address] [place] [address] URIC - Uric Acid (01/12/2019 2:27 PM CDT) athologist Signature Uric Acid 5.2 2.6 - 6.0 01/12/2019 [facility] mg/dL 3:17 PM CDT LABORATORY Specimen Anatomical Collection Method / Collection Time Recei rosemarie Time (Source) Location / Volume Laterality Blood Venipuncture / 01/12/2019 2:27 01/12/2019 2:27 Unknown PM CDT PM CDT Kenrick Juarez MD LAB_1 Performing Organization Address City/[facility] Phon e Number [facility] [address] [place] [address] documented in this encounter Visit Diagnoses Diagnosis Arthralgia, unspecified joint Primary osteoarthritis of both hands Myalgia Mylagia and myositis, unspecified documented in this encounter Care Teams Drop Pit Worker Relationship Specialty Start Date End Date Lew Grewal MD PCP - General Family Practice 12/10/[address] [place] [address] CHRISTINA MARTINEZ [address] documented as of this encounter
--- OUTSIDE RECORDS SUMMARY | 2022-02-01 12:10 | XMS_ITS | Encounter Summary ---
:1955 Author Organization [facility] Address [address] [place] [address] Care Team Providers Name Role Phone Lew Grewal MD Primary Care Provider Reason for Visit Reason Comments LAB RESULTS Encounter Details Date Type Department Care Team Description 01/13/2019 Telephone [facility] 3800 Kenrick Juarez MD LAB RESULTS Rheumatology 3800 [facility] [address] [place] [address] [place] [address] [phone] Social History Tobacco Use Types Packs/Day Years [...] on filedocumented in this encounter Care Teams Assistant Program Director Relationship Specialty Start Date End Date Lew Grewal MD PCP - General Family Practice 12/10/[address] [place] [address] CHRISTINA MARTINEZ [address] documented as of this encounter
--- OUTSIDE RECORDS SUMMARY | 2022-02-01 12:10 | XMS_ITS | Encounter Summary ---
:1955 Author Organization [facility] Address [address] [place] [address] Care Team Providers Name Role Phone Unassigned, Provider Primary Care Provider Unavailable Reason for Referral Specialty Diagnoses / Procedures Referred By Contact Refer red To Contact Marcello Monterroso MD [address] [place] [address] Referral ID Status Reason Start Date Expiration Date Visits Requ ested Visits Authorized Scheduling Instructions [facility] an [facility] was advised and you have not been contacted to schedule that appo intment within 3 business days, please call [phone] for assistance. Reason for Visit Reason Comments CHOKING has been going on for 3 valdez Encounter Details Date Type Department Care Team Description 01/28/2008 Office Visit [facility] Marcello Monterroso Dysphagia (Primary Dx) [address] [facility] [place], [place] [address] Social History Tobacco Use Types [...] unspecified documented in this encounter Care Teams Hr Intern Relationship Specialty Start Date End Date Unassigned, Provider PCP - General 01/12/00 08/29/[address] [place] [address] documented as of this encounter
--- OUTSIDE RECORDS SUMMARY | 2022-02-01 12:10 | XMS_ITS | Encounter Summary ---
:1955 Author Organization [employer] Address [address] [place] [address] Care Team Providers Name Role Phone Unassigned, Provider Primary Care Provider Unavailable Reason for Visit Reason Comments ROUTINE, FOLLOW-UP 2 months Encounter Details Date Type Department Care Team Description 12/06/2010 Office Visit [facility] Marcello Monterroso, Multiple sclerosis [address] Gabbi LOUIS (Primary Dx) [place], [place] [address] Social History Tobacco Use Types Packs/Day Years Used Date Smoking Tobacco: Former Cigarettes 1 45 Comments: quit 5-6 months ago Alcohol Use Standard Drinks/Week Comments No 0 (1 standard drink = 0.6 oz pure alcoho l) Sex Assigned at Date Recorded Not on file documented as of this encounter Last Filed Vital Signs Vital Sign Reading Time Taken Comments Blood Pressure 126/70 12/06/2010 1:26 PM CDT Pulse 64 12/06/2010 1:26 PM CDT Temperature - - Respiratory Rate 20 12/06/2010 1:26 PM CDT Oxygen Saturation - - Inhaled Oxygen Concentration - - Weight 97.3 kg (214 lb 6.4 oz) 12/06/2010 1:26 PM CDT Height 162.6 cm (5' 4) 12/06/2010 1:26 PM CDT Body Mass Index 36.8 12/06/2010 1:26 PM CDT documented in this encounter Patient Instructions Patient InstructionsMarcello Monterroso - 12/06/2010 1:52 PM CDT Return 1 year. Marcello Monterroso MD documented in this encounter Progress Notes Marcello Monterroso - 12/06/2010 1:58 PM CDT Since I saw the patient two months ago she is had brain and cervical spine MR scans done with and without contrast. By report cervical spinal cord is normal. Brain scan shows multiple areas of demyelination all looking chronic with no areas of enhancement. Residual urine szzcpy-16-54 mL. Vitamin B12 level was at the lower range of normal on last visit (288). Her diabetes is under poor control and she is aware of this. Message was sent to the patient to begin her vitamin B12 supplement but apparently she didn't appear about this. We talked about today I recommended a vitamin B12 and folic acid supplement to be taken daily. In regard to DMT the patient has always been poorly compliant with medications; communication with the patient is very difficult and unreliable; recent MRI showed no new activity. Therefore I will not initiate specific MS treatment. Her graft return in one year, call if concerns. 25 minutes with the patient, 20 minutes in counseling and care coordination. Marcello Monterroso MD Please note-This report was transcribed with the assistance of voice recognition software and may contain word substitution or spelling errors. documented in this encounter Plan of Treatment Not on filedocumented as of this encounter Visit Diagnoses Diagnosis Multiple sclerosis (HRC) - Primary Multiple sclerosis documented in this encounter Care Teams Fleet Operations Manager Relationship Specialty Start Date End Date Unassigned, Provider PCP - General 01/12/00 08/29/[address] [place] [address] documented as of this encounter
--- OUTSIDE RECORDS SUMMARY | 2022-02-01 12:10 | XMS_ITS | Encounter Summary ---
:1955 Author Organization [facility] Address [address] [place] [address] Care Team Providers Name Role Phone Unassigned, Provider Primary Care Provider Unavailable Reason for Visit Reason Onset Date Comments LETTER NEEDED 08/19/2007 Encounter Details Date Type Department Care Team Description 08/19/2007 Telephone [facility] Marcello Monterroso MD LETTER NEEDED [address] [place] [phone] Social History Tobacco Use Types Packs/Day Years [...] fax number for Dr.Karl Sosa (primary) is [phone]- in order for send letter on gastric bypass (stated discussed during visit today, 08/18) documented in this encounter Plan of Treatment Not on filedocumented as of this encounter Visit Diagnoses Not on filedocumented in this encounter Care Teams Bread Packer Relationship Specialty Start Date End Date Unassigned, Provider PCP - General 01/12/00 08/29/[address] [place] [address] documented as of this encounter
--- OUTSIDE RECORDS SUMMARY | 2022-02-01 12:10 | XMS_ITS | Encounter Summary ---
:1955 Author Organization [facility] Address [address] [place] [address] Care Team Providers Name Role Phone Lew Grewal MD Primary Care Provider Encounter Details Date Type Department Care Team Description 01/13/2019 Notes/Orders [place] [address] [place] [address] [place], [place] [phone] (Wo rk) Social History Tobacco Use Types [...] on filedocumented in this encounter Care Teams Group Director Relationship Specialty Start Date End Date Lew Grewal MD PCP - General Family Practice 12/10/[address] [place] [address] documented as of this encounter
--- OUTSIDE RECORDS SUMMARY | 2022-02-01 12:10 | XMS_ITS | Encounter Summary ---
:1955 Author Organization [facility] Address [address] [place] [address] Care Team Providers Name Role Phone Unassigned, Provider Primary Care Provider Unavailable Encounter Details Date Type Department Care Team Description 11/10/2010 Correspondence External to External, Provid er PATIENT [place] [address] Social History Tobacco Use Types Packs/Day Years [...] on filedocumented in this encounter Care Teams Project Economist Relationship Specialty Start Date End Date Unassigned, Provider PCP - General 01/12/00 08/29/[address] [place] [address] documented as of this encounter
--- OUTSIDE RECORDS SUMMARY | 2022-02-01 12:10 | XMS_ITS | Encounter Summary ---
:1955 Author Organization [employer] Address [address] [place] [address] Care Team Providers Name Role Phone No Primary/Referring, Phy Primary Care Provider Unavailable Reason for Visit Reason Comments MULTIPLE SCLEROSIS Encounter Details Date Type Department Care Team Description 09/06/2011 Office Visit [facility] Marcello Monterroso, Myalgia and myositis, unspec ified (Primary Dx); [address] Gabbi L[place] Abnormality of gait; [place], [place] [address] BIPOLAR DISORDER NOS [phone] Social History Tobacco Use Types Packs/Day Years [...] Send for records of recent hospitalization in [facility]. Marcello Monterroso MD documented in this encounter Progress Notes Marcello Monterroso MD - 09/06/2011 3:00 PM CDT 56-year-old woman with long-standing multiple sclerosis is in today because of recent symptoms. Lastweek her primary physician called from a clinic in [place] because Yary was feeling weak and unsteady. [...] unspecified documented in this encounter Care Teams Receiving Room Clerk Relationship Specialty Start Date End Date No Primary/Referring, y PCP - General 08/30/11 documented as of this encounter
--- OUTSIDE RECORDS SUMMARY | 2022-02-01 12:10 | XMS_ITS | Encounter Summary ---
:1955 Author Organization [facility] Address [address], [place] [address] Care Team Providers Name Role Phone Unassigned, Provider Primary Care Provider Unavailable Reason for Referral Specialty Diagnoses / Procedures Referred By Contact Refer red To Contact Marcello Monterroso MD [address] [place] [address] Referral ID Status Reason Start Date Expiration Date Visits Requ ested Visits Authorized Scheduling Instructions Your provider [facility] You may call [phone] to schedule your a ppointment. If you prefer, a tassel making machine operator will contact you within the next 3 business d ays to assist you in setting up this appointment. Reason for Visit Reason Comments MULTIPLE SCLEROSIS swallowing difficulty Encounter Details Date Type Department Care Team Description 10/19/2010 Office Visit [facility] Marcello Monterroso Multiple sclerosis (Primary Dx); [address] [facility] Abnormality of gait; [place], [place] [address] Other specified visual distu rbances [phone] Social History Tobacco Use Types Packs/Day Years [...] spine MRI with and without contrast at [facility] today Refer to Eye clinic for exam Have your nurse fax us your med list - FAX number is [phone] Return 2 months; bring all your medicines [...] migraine headaches. No h/o significant head trauma, PLOW MECHANIC infections, seizures, LOC, prior LP, CVA/TIA symptoms. [...] Component Value Ref Test Analysis Performed At [facility] gist Range Method Time Signature NMO-IgG <1.6 [facility] Reference Range: <1.6 U/mL NMO-IgG (NOTE) [facility] NMO Evaluation w/Reflex, S ?? Interpretive Comments ? No informative autoantibodies were detected in this ? evaluation. ??A negative result does not exclude a di agnosis ? of a neuromyelitis optica spectrum of disorders. For research use only Test Performed by: [facility] [employer] [address] [place] [address] Specimen Anatomical Collection Method Collection Time Receive d Time (Source) Location / / Volume Laterality 10/19/2010 2:58 PM 1 3:04 CDT PM CDT Marcello Monterroso MD LAB_1 Performing Organization Address [facility] Phon e Number [facility] [phone] [facility] [address] [place] [address] (ABNORMAL) VIT B12 & FOLATE (10/19/2010 2:58 PM CDT) athologist Signature Vitamin B12 214 (L) 239 - 931 [facility] pg/ml Folate >20.0 >3.0 ng/ml [facility] Specimen Anatomical Collection Method Collection Time Receive d Time (Source) Location / / Volume Laterality 10/19/2010 2:58 PM 1 3:04 CDT PM CDT Marcello Monterroso MD LAB_1 Performing Organization Address [facility] Phon e Number [facility] [phone] [facility] [address] [place] [address] OSCAR SCREEN (10/19/2010 2:58 PM CDT) athologist Signature OSCAR Screen Negative NEG [facility] Specimen Anatomical Collection Method Collection Time Receive d Time (Source) Location / / Volume Laterality 10/19/2010 2:58 PM 1 3:04 CDT PM CDT Marcello Monterroso MD LAB_1 Performing Organization Address [facility] Phon e Number [email or web address] [phone] [address] (ABNORMAL) HGB A1C (10/19/2010 2:58 PM CDT) [...] Marcello Monterroso MD LAB_1 Performing Organization Address [facility] Phon e Number [email or web address] [phone] [phone] ESR (10/19/2010 2:58 PM CDT) athologist Signature ESR 2 0 - 20 [facility] mm/hr Specimen Anatomical Collection Method Collection Time Receive d Time (Source) Location / / Volume Laterality 10/19/2010 2:58 PM 1 3:04 CDT PM CDT Marcello Monterroso MD LAB_1 Performing Organization Address [facility] Phon e Number [email or web address] [phone] [phone] (ABNORMAL) HEMOGRAM/PLTS (10/19/2010 2:58 PM CDT) athologist Signature WBC 12.5 (H) 4.0 - 11.0 [facility] k/ul RBC 4.53 4.0 - 5.2 [facility] M/ul Hemoglobin 14.4 12.0 - [facility] 16.0 g/dl HCT 41.9 36.0 - [facility] 46.0 % MCV 92.4 80 - 100 [facility] fl MCH 31.8 26 - 34 pg [facility] MCHC 34.5 32 - 36 [facility] g/dl RDW 13.3 11.5 - [facility] 14.5 % Platelets 418 150 - 450 [facility] k/ul Specimen Anatomical Collection Method Collection Time Receive d Time (Source) Location / / Volume Laterality 10/19/2010 2:58 PM 1 3:04 CDT PM CDT Marcello Monterroso MD LAB_1 Performing Organization Address City/[facility] Phon e Number [email or web address] [phone] [facility] [address] [place] [address] BASIC METABOLIC PANEL (10/19/2010 2:58 PM [...] Marcello Monterroso MD LAB_1 Performing Organization Address [facility] Phon e Number [email or web address] [phone] [address] AST (SGOT) (10/19/2010 2:58 PM CDT) P athologist Signature AST (SGOT) 38 0 - 55 U/L [facility] Specimen Anatomical Collection Method Collection Time Receive d Time (Source) Location / / Volume Laterality 10/19/2010 2:58 PM 1 3:04 CDT PM CDT Marcello Monterroso MD LAB_1 Performing Organization Address [facility] Phon e Number [facility] [phone] [facility] [address] [place] [phone] ALT (SGPT) (10/19/2010 2:58 PM CDT) athologist Signature ALT (SGPT) 43 0 - 69 U/L [facility] Specimen Anatomical Collection Method Collection Time Receive d Time (Source) Location / / Volume Laterality 10/19/2010 2:58 PM 1 3:04 CDT PM CDT Marcello Monterroso MD LAB_1 Performing Organization Address City/[facility] Phon e Number [email or web address] [phone] [phone] documented in this encounter Visit Diagnoses Diagnosis Multiple sclerosis (HRC) - Primary Multiple sclerosis Abnormality of gait Other specified visual disturbances documented in this encounter Care Teams Cognos Administrator Relationship Specialty Start Date End Date Unassigned, Provider PCP - General 01/12/00 08/29/[address] [place] [address] documented as of this encounter
--- OUTSIDE RECORDS SUMMARY | 2022-02-01 12:11 | XMS_ITS | Encounter Summary ---
:1955 Author Organization [facility] Address [address] [place] [address] Care Team Providers Name Role Phone Unassigned, Provider Primary Care Provider Unavailable Reason for Visit Reason Onset Date Comments Other 12/22/2004 Encounter Details Date Type Department Care Team Description 12/22/2004 Telephone [place] [facility] Marcello Monterroso MD Other [address] [place] [phone] Social History Tobacco Use Types Packs/Day Years [...] Please re-fax certificate of medical ness. to #[phone] documented in this encounter Plan of Treatment Not on filedocumented as of this encounter Visit Diagnoses Not on filedocumented in this encounter Care Teams Security Operations Manager Relationship Specialty Start Date End Date Unassigned, Provider PCP - General 01/12/00 08/29/[address] [place] [address] documented as of this encounter
--- OUTSIDE RECORDS SUMMARY | 2022-02-01 12:11 | XMS_ITS | Encounter Summary ---
:1955 Author Organization [facility] Address [address] [place] [address] Care Team Providers Name Role Phone Unassigned, Provider Primary Care Provider Unavailable Reason for Referral Specialty Diagnoses / Procedures Referred By Contact Refer red To Contact Stacie Bautista, MITCH POLLARD [address] [place] [address] Referral ID Status Reason Start Date Expiration Date Visits Requ ested Visits Authorized Reason for Visit Reason Comments MEMORY,LOSS OF testing Encounter Details Date Type Department Care Team Description 09/18/2005 Office Visit [facility] Stacie Bautista, ABRAHAM LE SCLEROSIS (Primary Dx); [facility] MITCH POLLARD MEMORY LOSS; [address] [facility] [place]OL[place] [address] [place], [place] [phone] Social History Tobacco Use Types Packs/Day Years [...] documented in this encounter Patient Instructions Patient Cdbcmgeratdt12/20/2006 12:45 PM CDT The following instructions are [...] another patient for that time. Please call [phone] with any concerns regarding your visit today [...] RESULTS: Please call the Neurology Department at [phone], in 10 day(s) after your lab test, [...] concerns. Please call the neurology department at [phone] if you have any questions related to [...] Maintains good eye contact during the visit. [place] Short Mental Status Exam (29-35 indicative of mild cognitive impairment; 29 or less detects dementia):(STMS, [place] Short Form) ??? Orientation 8/8, Attention 6/7, [...] bipolar disease. Score of 34/38 on the [place] Short Mental Status Exam is not indicative [...] in some time. 5. I requested the administrative assistant receptionist to help her figure out when [...] of this office note has been dictated. Staice Bautista NP documented in this encounter Consult [...] to 5 seconds but does have swaying. Mbgxvt-ui-fbnp test is fairly accurate bilaterally, she has a little more trouble with the left hand then the right hand but there is no dysmetria noted. Rapid alternating movements with fingers are fairly smooth. Tzwh-if-lzht test is smooth bilaterally. Right big toe [...] P: 1. Please see plan found in [facility] under the Memory Evaluation note. DIAGNOSES: Multiple sclerosis (340) Memory loss (780.93) Bipolar disease (296.80) P cc: MD Stacie Allison RN,PIANO MAKER Marcello Monterroso MD documented in this encounter Plan of Treatment Not on filedocumented as of this encounter Results (ABNORMAL) BASIC METABOLIC PANEL (09/18/2005 2:29 PM CDT) [facility] Method Time Signature BUN 13 10 [...] Michele POLLARD CNP LAB_1 Performing Organization Address [facility] Phon e Number [facility] [place] [facility] [phone] [facility] [address] [place] [phone] LYME ANTIBODY (09/18/2005 2:29 PM CDT) athologist Signature Lyme Antibody 0.46 <0.75 OD [facility] Ratio Comment: Negative Specimen Anatomical Collection Method Collection Time Receive d Time (Source) Location / / Volume Laterality 09/18/2005 2:29 PM 6 2:31 CDT PM CDT Stacie Bautista APRN, CNP LAB_1 Performing Organization Address [facility] Phon e Number [facility] [place] [phone] [address] TSH, SENSITIVE (WITH REFLEX) (09/18/2005 2:29 PM CDT) athologist [facility] TSH, with 2.46 0.3 - 5.0 [facility] Reflex uIU/ml Specimen Anatomical Collection Method Collection Time Receive d Time (Source) Location / / Volume Laterality 09/18/2005 2:29 PM 6 2:31 CDT PM CDT Stacie Bautista APRN, CNP LAB_1 Performing Organization Address [facility] Phon e Number [facility] [place] [place] [facility] [phone] [address] (ABNORMAL) HEMOGRAM/PLTS/DIFF (09/18/2005 2:29 PM CDT) [facility] gist Method Time Signature WBC 10.5 [...] Lymph 43 17 - 43 % [facility] [place] 5 4 - 12 % [facility] Eos 6 0 - 8 % [facility] Baso 1 0 - 1 % [facility] Neutrophil 4.7 1.8 - 7.7 [facility] Absolute k/ul Lymph Absolute 4.5 1.0 - 4.8 [facility] k/ul [place] Absolute 0.5 0.1 - 0.7 [facility] k/ul Eos Absolute 0.7 (H) 0.0 - 0.5 [facility] k/ul Baso Absolute 0.1 0.0 - 0.2 [facility] k/ul Specimen Anatomical Collection Method Collection Time Receive d Time (Source) Location / / Volume Laterality 09/18/2005 2:29 PM 6 2:31 CDT PM CDT Stacie Bautista APRN, CNP LAB_1 Performing Organization Address [facility] Phon e Number quit[facility] [phone] [facility] [address] [place] [phone] OSCAR SCREEN (09/18/2005 2:29 PM CDT) P athologist Signature OSCAR Screen Negative NEG [facility] Specimen Anatomical Collection Method Collection Time Receive d Time (Source) Location / / Volume Laterality 09/18/2005 2:29 PM 6 2:31 CDT PM CDT Stacie Bautista APRN, CNP LAB_1 Performing Organization Address [facility] Phon e Number [place] [phone] [facility] [address] [place] [phone] VIT B12 & FOLATE (09/18/2005 2:29 PM CDT) athologist Signature Vitamin B12 235 211 - 911 [facility] pg/ml Folate 5.3 >3.0 ng/ml [facility] Specimen Anatomical Collection Method Collection Time Receive d Time (Source) Location / / Volume Laterality 09/18/2005 2:29 PM 6 2:31 CDT PM CDT Stacie Bautista APRN, CNP LAB_1 Performing Organization Address City/[facility]/ZIP Code Phon e Number [facility] [place] [facility] [phone] [address] (ABNORMAL) HGB A1C (09/18/2005 2:29 PM CDT) athologist Signature Hgb A1c 7.7 (H) 4.3 - 6.1 % [facility] Specimen Anatomical Collection Method Collection Time Receive d Time (Source) Location / / Volume Laterality 09/18/2005 2:29 PM 6 2:31 CDT PM CDT Stacie Bautista APRN, CNP LAB_1 Performing Organization Address City/[facility]/ZIP Code Phon e Number [facility] [place] [facility] [phone] [address] AST (SGOT) (09/18/2005 2:29 PM CDT) athologist Signature AST (SGOT) 24 <45 U/L [facility] Specimen Anatomical Collection Method Collection Time Receive d Time (Source) Location / / Volume Laterality 09/18/2005 2:29 PM 6 2:31 CDT PM CDT Stacie Bautista APRN, CNP LAB_1 Performing Organization Address [facility] Phon e Number [facility] [place] [facility] [phone] [phone] ALT (SGPT) (09/18/2005 2:29 PM CDT) athologist Signature ALT (SGPT) 21 0 - 55 U/L [facility] Specimen Anatomical Collection Method Collection Time Receive d Time (Source) Location / / Volume Laterality 09/18/2005 2:29 PM 6 2:31 CDT PM CDT Stacie Bautista APRN, PIANO MAKER LAB_1 Performing Organization Address City/State/ZIP Code Phon e Number [facility] [phone] [facility] [address] [address] documented in this encounter Visit Diagnoses Diagnosis Multiple sclerosis (HRC) - Primary Multiple sclerosis Memory loss Bipolar disorder, unspecified (HRC) Bipolar disorder, unspecified documented in this encounter Care Teams Gospel Worker Relationship Specialty Start Date End Date Unassigned, Provider PCP - General 01/12/00 08/29/[address] [place] [address] documented as of this encounter
--- OUTSIDE RECORDS SUMMARY | 2022-02-01 12:11 | XMS_ITS | Encounter Summary ---
:1955 Author Organization [facility] Address [address] [address] Care Team Providers Name Role Phone Unassigned, Provider Primary Care Provider Unavailable Encounter Details Date Type Department Care Team Description 02/09/2001 Office Visit Emergency Dept MULTIPLE SCLEROSIS [address] [place] [address] Social History Tobacco Use Types Packs/Day Years [...] upper and lower extremities. Equal and bilateral electrical engineering drafting officer strength. She was ambulatory. Pinprick sensation to the entire right lower extremity up to the groin was abnormal. She could not discern between sharp or dull. Gross sensation was somewhat decreased compared to the left leg. EMERGENCY MEDICINE DEPARTMENT COURSE: We are going to give her the gram of Rocephin as requested by the [facility] medical service. She is to return here tomorrow and the next day to the chemotherapy clinic to get another gram and then followup with her primary medical doctor. FINAL IMPRESSION 1. Multiple sclerosis. 2. Solu-Medrol treatment. Followup with family practice at next available appointment. bkl Dictated: 02/09/2001 14:45:54 Harry Ardon DO Transcribed: 02/11/2001 03:32:07 Patient seen with Ho Diaz MD Doc #: [id number] cc: Betty Linares MD, Primary Alonso Hoover MD, Referring 1 Page 1 Patient Name: YARY PHILIPPE Visit Date: 02/09/2001 EMERGENCY MEDICINE NOTE CONFIDENTIAL MEDICAL RECORD [address] [phone] Page 1 Patient: YARY PHILIPPE Location: ER HPN: Date of : 1955 Visit Date: 02/09/2001 EMERGENCY MEDICINE NOTE S FINISHER documented in this encounter Plan of Treatment Not on filedocumented as of this encounter Visit Diagnoses Diagnosis Multiple sclerosis (HRC) Multiple sclerosis documented in this encounter Care Teams Professional Tutor Relationship Specialty Start Date End Date Unassigned, Provider PCP - General 01/12/00 08/29/11 [address] [place] [address] documented as of this encounter
--- OUTSIDE RECORDS SUMMARY | 2022-02-01 12:11 | XMS_ITS | Encounter Summary ---
:1955 Author Organization [facility] Address [address] [place] [address] Care Team Providers Name Role Phone Unassigned, Provider Primary Care Provider Unavailable Encounter Details Date Type Department Care Team Description 10/26/2004 Telephone [facility] Marcello Monterroso MD [address] [place], [place] [address] Social History Tobacco Use Types Packs/Day Years [...] on filedocumented in this encounter Care Teams Hr Assistant Relationship Specialty Start Date End Date Unassigned, Provider PCP - General 01/12/00 08/29/[address] [place] [address] documented as of this encounter
--- OUTSIDE RECORDS SUMMARY | 2022-02-01 12:11 | XMS_ITS | Encounter Summary ---
:1955 Author Organization [facility] [address], [place] [address] Care Team Providers Name Role Phone Unassigned, Provider Primary Care Provider Unavailable Encounter Details Date Type Department Care Team Description 02/28/2001 Office Visit [facility] Debbie Hayes ORGANIC AFFECTIVE Behavioral Health MD Cata [facility] [phone] [place], [place] [id number] Social History Tobacco Use Types Packs/Day Years [...] just moved within the past month to [place], [place]. She is a bit more isolated, had grown up and lived in the [place] throughout her life prior to. She reports [...] some help for obsessions in the past. Epworth, she believes has probably been helpful. She feels though that moodiness has clearly been linked with exacerbations of her MS such as current state is. SUBSTANCE USE HISTORY: She reports that she had used marijuana daily up until spring. At that time, was caught by the [employer] police and has stopped use since then. [...] hydrochlorothiazide, Atenolol, amitriptyline 100 mg hs, Premarin, Epworth 450 mg Eskalith form bid, prn Codeine [...] SOCIAL HISTORY: Born and raised in the [place]. States father was practicing alcoholic until patient [...] just moved in the past month to [place], [place], and living on a farm. The patient states she typically doesn't drive because of MS symptoms although can drive when symptoms are not problematic. She has limited activities. Right now, says she is permanently watching events - following the events of the war and has really had difficulties connecting with others down in [place], feeling that they're good people and that [...] this fluctuates by her report. 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 [place] II: Deferred [place] III: Please refer to Medical History above. Primarily MS with fluctuating course. [place] IV: Stressors - moderate to severe. [place] V: Highest level of function in past [...] trial appears warranted including the use of Epworth. She doesn't specifically recall trials of Depakote [...] and Zyprexa as possible alternatives should the Epworth, Ativan combination not be sufficiently helpful. She was encouraged to try to increase activities outside the home. Will follow up in roughly five weeks. kim Dictated: 02/28/2001 10:18:10 Marcello Hayes MD Transcribed: 03/03/2001 10:50:54 Doc #: [id number] Patient: YARY CALL Page 3 PSYCHIATRIC DATA BASE CONFIDENTIAL MEDICAL RECORD [address] [phone] Page 1 Patient: YARY CALL Location: HPN: Visit Date: 02/28/2001 Date of : 1955 PSYCHIATRIC DATA BASE GER ACCESS documented in this encounter Plan of Treatment Not on filedocumented as of this encounter Visit Diagnoses Diagnosis Mood disorder in conditions classified e lsewhere ([facility]) Mood disorder in conditions classified e lsewhere documented in this encounter Care Teams Etch Operator Semiconductor Wafers Relationship Specialty Start Date End Date Unassigned, Provider PCP - General 01/12/00 08/29/[address] [place] [address] documented as of this encounter
--- OUTSIDE RECORDS SUMMARY | 2022-02-01 12:11 | XMS_ITS | Encounter Summary ---
:1955 Author Organization [facility] Address [address] [place] [address] Care Team Providers Name Role Phone Unassigned, Provider Primary Care Provider Unavailable Encounter Details Date Type Department Care Team Description 09/21/2005 Orders Only External to Unknown, Physici an [address] [place] [address] (Wo rk) Social History Tobacco [...] from the Results sect ion by [employer] System Scan Conversion [[id number]] on 03/19/2010 at 1:53 PM (File: [id number];) Transcriptions [facility], Provider - 09/21/2005 12:00 AM CDT Physician Unknown DUMMY/OTHER/AR documented in this encounter Visit Diagnoses Not on filedocumented in this encounter Care Teams Final Touch Up Painter Relationship Specialty Start Date End Date Unassigned, Provider PCP - General 01/12/00 08/29/[address] [place] [address] documented as of this encounter
--- OUTSIDE RECORDS SUMMARY | 2022-02-01 12:11 | XMS_ITS | Encounter Summary ---
:1955 Author Organization [facility] [address], [place] [address] Care Team Providers Name Role Phone Unassigned, Provider Primary Care Provider Unavailable Encounter Details Date Type Department Care Team Description 04/15/2001 Office Visit [facility] Debbie Hayes ORGANIC AFFECTIVE Behavioral Health MD Cata [facility] [phone] [place] [id number] Social History Tobacco Use Types Packs/Day Years Used Date Smoking Tobacco: Never Assessed Sex Assigned at Date Recorded Not on file documented as of this encounter Plan of Treatment Not on filedocumented as of this encounter Visit Diagnoses Diagnosis Mood disorder in conditions classified e lsewhere ([facility]) Mood disorder in conditions classified e lsewhere documented in this encounter Care Teams Meat Sales And Storage Manager Relationship Specialty Start Date End Date Unassigned, Provider PCP - General 01/12/00 08/29/11 [address] [place] [address] documented as of this encounter
--- OUTSIDE RECORDS SUMMARY | 2022-02-01 12:11 | XMS_ITS | Encounter Summary ---
:1955 Author Organization [facility] Address [address] [place] [address] Care Team Providers Name Role Phone Unassigned, Provider Primary Care Provider Unavailable Encounter Details Date Type Department Care Team Description 10/04/2005 Correspondence External to Marcello Monterroso MD [facility] [employer] Social History Tobacco Use Types Packs/Day Years [...] on filedocumented in this encounter Care Teams Monorail Car Operator Relationship Specialty Start Date End Date Unassigned, Provider PCP - General 01/12/00 08/29/[address] [place] [address] documented as of this encounter
--- OUTSIDE RECORDS SUMMARY | 2022-02-01 12:11 | XMS_ITS | Encounter Summary ---
:1955 Author Organization [facility] Address [address] [place] [address] Care Team Providers Name Role Phone Unassigned, Provider Primary Care Provider Unavailable Encounter Details Date Type Department Care Team Description 02/10/2001 Office Visit [facility] Alonso Hoover, ENURESIS NOS; [facility] PROLAPSE OF VAGINAL WALL [facility] [address] [place], [place] [address] Social History Tobacco Use [...] prolapse documented in this encounter Care Teams Progress Man Relationship Specialty Start Date End Date Unassigned, Provider PCP - General 01/12/00 08/29/[address] [place] [address] documented as of this encounter
--- OUTSIDE RECORDS SUMMARY | 2022-02-01 12:11 | XMS_ITS | Encounter Summary ---
:1955 Author Organization [facility] Address [address] [place] [address] Care Team Providers Name Role Phone Unassigned, Provider Primary Care Provider Unavailable Reason for Visit Reason Onset Date Comments MULTIPLE SCLEROSIS 08/28/2005 Encounter Details Date Type Department Care Team Description 08/28/2005 Telephone [facility] Marcello Monterroso MD MULTIPLE SCLEROSIS [address] [place], [place] [address] Social History Tobacco Use Types [...] on filedocumented in this encounter Care Teams Mixer Slagman Relationship Specialty Start Date End Date Unassigned, Provider PCP - General 01/12/00 08/29/[address] [place] [address] documented as of this encounter
--- OUTSIDE RECORDS SUMMARY | 2022-02-01 12:11 | XMS_ITS | Encounter Summary ---
:1955 Author Organization [facility] Address [address] [place] [address] Care Team Providers Name Role Phone Unassigned, [...] on filedocumented in this encounter Care Teams Director Of Epidemiology Relationship Specialty Start Date End Date Unassigned, Provider PCP - General 01/12/00 08/29/[address] [place] [address] documented as of this encounter
--- OUTSIDE RECORDS SUMMARY | 2022-02-01 12:11 | XMS_ITS | Encounter Summary ---
:1955 Author Organization [facility] Address [address] [place] [address] Care Team Providers Name Role Phone Unassigned, Provider Primary Care Provider Unavailable Encounter Details Date Type Department Care Team Description 11/05/2003 Correspondence None Unknown, Physici [facility] [address] [place] [address] (Wo rk) Social History Tobacco Use Types Packs/Day Years Used Date Smoking Tobacco: Never Assessed Sex Assigned at Date Recorded Not on file documented as of this encounter Progress Notes Unknown, Physician - 11/05/2003 12:00 AM CDT documented in this encounter Plan of Treatment Not on filedocumented as of this encounter Visit Diagnoses Not on filedocumented in this encounter Care Teams Evp Operations Relationship Specialty Start Date End Date Unassigned, Provider PCP - General 01/12/00 08/29/11 [address] [place] [address] documented as of this encounter
--- OUTSIDE RECORDS SUMMARY | 2022-02-01 12:11 | XMS_ITS | Encounter Summary ---
:1955 Author Organization [facility] Address [address] [place] [address] Care Team Providers Name Role Phone Unassigned, Provider Primary Care Provider Unavailable Encounter Details Date Type Department Care Team Description 11/08/2003 Correspondence None Unknown, Chetan Ambrosio MOHINDER to [facility] [address] [place] [address] (Wo rk) Social History Tobacco Use Types Packs/Day Years Used Date Smoking Tobacco: Never Assessed Sex Assigned at Date Recorded Not on file documented as of this encounter Progress Notes Unknown, Physician - 11/08/2003 12:00 AM CDT documented in this encounter Plan of Treatment Not on filedocumented as of this encounter Visit Diagnoses Not on filedocumented in this encounter Care Teams Mmi Teacher Relationship Specialty Start Date End Date Unassigned, Provider PCP - General 01/12/00 08/29/11 [address] [place] [address] documented as of this encounter
--- OUTSIDE RECORDS SUMMARY | 2022-02-01 12:11 | XMS_ITS | Encounter Summary ---
:1955 Author Organization [employer] Address [address] [place] [address] Care Team Providers Name Role Phone Unassigned, Provider Primary Care Provider Unavailable Reason for Visit Reason Comments FOLLOW-UP, TEST RESULTS MRI Encounter Details Date Type Department Care Team Description 10/29/2005 Office Visit [facility]ty [facility] Marcello Monterroso MULTIP LE SCLEROSIS (Primary Dx); [facility] COMMON MIGRAINE W/O MENTN IN TRACT [address] [place] [address]. [place] [address] Social History Tobacco Use Types [...] Sign Reading Time Taken Comments Blood Pressure 138/90 10/29/2005 2:45 PM CDT Pulse 84 10/29/2005 2:45 PM CDT Temperature - - Respiratory Rate 20 10/29/2005 2:45 PM CDT Oxygen Saturation - - Inhaled Oxygen Concentration - - Weight 110.1 kg (242 lb 12.8 oz) 10/29/2005 2:45 PM CDT Height - - Body Mass Index 43.01 09/18/2005 12:45 PM CDT documented in this encounter Patient Instructions Patient Jglgkotprspa49/31/2006 2:45 PM CDT Begin nortryptiline 50 mgm - 1 pill at night for 4 days then 2 pills at night to control migraine and help with sleep. Use Percocet - 1 pill every 4 hours for migraine. Keep appt with Stacie November 20. Return to see Dr. Monterroso in 6 months. Marcello Monterroso MD documented in this encounter Progress Notes 10/29/2005 2:45 PM CDT documented in this encounter Consult Notes Marcello Monterroso - 10/29/2005 12:00 AM CDTHISTORY: Nuetm[age]xq-ahzq-old woman back for follow up regarding multiple sclerosis, memory concerns, insomnia and migraine. When I saw Yary in August, we decided to discontinue her amitriptyline 100 mg, hs because of concerns about memory function, weight gain, dry mouth. Her memory function has been such an issue that we did repeat her cranial MR scan which shows extensive areas of MS but nothing new since 2003. Her EEG was basically normal but was done after she stopped her amitriptyline. I had given her Trazodone to try and substitute for amitriptyline to help her sleep but that was ineffective. She has really not been sleeping well, her migraine headaches have been much more frequent and painful. On the other hand, she agrees that she no longer has the sun sensitivity, memory problems or dry mouth that she did when she was taking amitriptyline. She did find amitriptyline more helpful in inhibiting her bladder. We went over her test results which otherwise are significant for showing that her diabetes is not in very good control with a hemoglobin A1C of 7.7. She admits that she doesn't pay much attention to managing her diabetes. She recently saw Dr. Gonzalez who said he would consider tapering or discontinuing Depakote, since this likely is contributing to Yary's weight problem. I will defer to him on this. After some discussion, I elected to begin nortriptyline 50 mg, 2 po hs for sleep and to control migraines. We discussed the difference between nortriptyline and amitriptyline. We also will give Yary 4 Percocets to take for her migraines until the nortriptyline has a chance to take affect. She will call if problems come up. She has a follow up visit with our Nurse Practitioner on 11/20/05 and I reminded her of this. We plan on following her every 3 months with EDSS exams and then I will see her back in 6 months. Forty-minutes with the patient, 30 minutes in counseling and care/coordination. P cc: Marcello Monterroso MD documented in this encounter Plan of Treatment Not on filedocumented as of this encounter Visit Diagnoses Diagnosis Multiple sclerosis (HRC) - Primary Multiple sclerosis Migraine without aura, without mention o f intractable migraine without mention of status migrainosus documented in this encounter Care Teams Medical Assembly Relationship Specialty Start Date End Date Unassigned, Provider PCP - General 01/12/00 08/29/[address] [place] [address] documented as of this encounter
--- OUTSIDE RECORDS SUMMARY | 2022-02-01 12:11 | XMS_ITS | Encounter Summary ---
:1955 [facility] Address [address], [place] [address] Care Team Providers Name Role Phone Unassigned, Provider Primary Care Provider Unavailable Reason for Visit Reason Onset Date Comments LAB RESULTS 09/18/2005 elevated blood gluco se of 241 Encounter Details Date Type Department Care Team Description 09/19/2005 Telephone Specialty Center 401 Stacie Bautista LA B RESULTS ([facility] DOORPERSON, CUSTOMER COMPLAINT CLERK blood glucose of 241) 401 [employer] [address] [place] [address] [place], [place] [phone] Social History Tobacco Use Types Packs/Day Years [...] better co ntrol of her diabetes. April Whitman RN >> ARTIS DIXON Fri Sep 21, 2005 3:06 PM pt returned call, same number >> APRIL WHITMAN SatSep 21, 2005 1:01 PM Left message to call back. April Whitman RN >> STACIE BAUTISTA SatSep 21, 2005 10:34 AM Please attempt to reach her today. Stacie Bautista NP >> STACIE BAUTISTA [facility] Sep 20, 2005 6:24 AM Please [...] on filedocumented in this encounter Care Teams Batch Heat Treat Operator Relationship Specialty Start Date End Date Unassigned, Provider PCP - General 01/12/00 08/29/[address] [place] [address] documented as of this encounter
--- OUTSIDE RECORDS SUMMARY | 2022-02-01 12:11 | XMS_ITS | Encounter Summary ---
:1955 Author Organization [facility] Address [address] [place] [address] Care Team Providers Name Role Phone Unassigned, Provider Primary Care Provider Unavailable Reason for Visit Reason Onset Date Comments APPOINTMENT REQUEST 09/18/2005 Encounter Details Date Type Department Care Team Description 09/18/2005 Telephone [facility] BARRETT OINTMENT REQUEST Psychiatry Social History Tobacco [...] with the appointment information. Beck Khanna RN PRECISION OPTICAL GOODS WORKER SENIOR NATIONAL ACCOUNT MANAGER >> CHRISTINE Fierro Sep 18, 2005 2:23 PM ADRYAN AT [facility] CALLED, FOR THE RESOURCE NURSE TO MAKE A APPT FOR THIS PATIENT MONCHO PHILIPPE IN 2 WEEKS. VIVIANE Sebastian 2 09/18/2005 2:23 PM documented in this encounter Plan of Treatment Not on filedocumented as of this encounter Visit Diagnoses Not on filedocumented in this encounter Care Teams Cnc Machine Operator Relationship Specialty Start Date End Date Unassigned, Provider PCP - General 01/12/00 08/29/[address] [place] [address] documented as of this encounter
--- OUTSIDE RECORDS SUMMARY | 2022-02-01 12:11 | XMS_ITS | Encounter Summary ---
:1955 Author Organization [facility] Address [address] [place] [address] Care Team Providers Name Role Phone Unassigned, Provider Primary Care Provider Unavailable Reason for Referral Specialty Diagnoses / Procedures Referred By Contact Ana avila To Contact Marcello Monterroso MD [address] [place] [address] Referral ID Status Reason Start Date Expiration Date Visits Requ ested Visits Authorized Specialty Diagnoses / Procedures Referred By Contact Ana avila To Contact Marcello Monterroso MD [address] [place] [address] Referral ID Status Reason Start Date Expiration Date Visits Requ ested Visits Authorized Specialty Diagnoses / Procedures Referred By Contact Ana avila To Contact Marcello Monterroso MD [address] [place] [address] Referral ID Status Reason Start Date Expiration Date Visits Requ ested Visits Authorized Specialty Diagnoses / Procedures Referred By Contact Ana avila To Contact Marcello Monterroso MD [address] [place] [address] Referral ID Status Reason Start Date Expiration Date Visits Requ ested Visits Authorized Reason for Visit Reason Comments Follow-up, NOS MS Encounter Details Date Type Department Care Team Description 09/06/2005 Office Visit [facility] Marcello Monterroso, MULTIPLE SCLEROSIS (Primary Dx); [address] [place] [facility]; [place] [address] 4 ABNORMALITY OF GAIT [phone] Social History Tobacco Use Types Packs/Day Years [...] documented in this encounter Patient Instructions Patient Inwgbmmudkoy15/08/2006 9:15 AM CDT Schedule brain MRI and [...] gait documented in this encounter Care Teams Kitchen Steward/Stewardess Relationship Specialty Start Date End Date Unassigned, Provider PCP - General 01/12/00 08/29/[address] [place] [address] documented as of this encounter
--- OUTSIDE RECORDS SUMMARY | 2022-02-01 12:11 | XMS_ITS | Encounter Summary ---
:1955 Author Organization [facility] Address [address] [place] [address] Care Team Providers Name Role Phone Unassigned, Provider Primary Care Provider Unavailable Encounter Details Date Type Department Care Team Description 09/12/2004 Correspondence [facility] Marcello Monterroso, CERTIFICATE OF MEDICAL [address] [place] NECESSITY/PATIENT [place], [place] [address] FUNCTIONAL ASSESSMENT [phone] Social History Tobacco Use Types Packs/Day Years [...] on filedocumented in this encounter Care Teams Table Operator Relationship Specialty Start Date End Date Unassigned, Provider PCP - General 01/12/00 08/29/[address] [place] [address] documented as of this encounter
--- OUTSIDE RECORDS SUMMARY | 2022-02-01 12:11 | XMS_ITS | Encounter Summary ---
:1955 Author Organization [facility] Address [address] [place] [address] Care Team Providers Name Role Phone Unassigned, Provider Primary Care Provider Unavailable Encounter Details Date Type Department Care Team Description 03/04/2001 Office Visit [facility] Alonso Frank, KASSANDRA AL ABSCESS [facility] MD [facility] [address] [place] [address] (Wo rk) Social History Tobacco Use Types Packs/Day Years Used Date Smoking Tobacco: Never Assessed Sex Assigned at Date Recorded Not on file documented as of this encounter Progress Notes EverAnitha - 03/04/2001 12:00 AM CSTSubjective: The patient is a 45 year old female with multiple sclerosis here today with complaints of an abscessed tooth. She has an appointment tomorrow with the [facility] dentist. She is just getting over a [...] 03/04/2001 12:27:02 Transcribed: 03/07/2001 15:27:50 Doc #: [id number] PATIENT NAME: YARY PHILIPPE VISIT DATE: 03/04/2001 AGE: 45Y [facility] Provider Signature Page 1 Confidential Medical Record [facility] [address] [place] [address] ?? [place] [address] Page Patient: YARY PHILIPPE Visit Date: 03/04/2001 Clara Curtis DO Date of : 1955 VISIT DATE: 03/04/2001 AGE: 45Y [facility] Provider Signature K MECHANIC documented in this encounter Plan of Treatment Not on filedocumented as of this encounter Visit Diagnoses Diagnosis Periapical abscess without sinus documented in this encounter Care Teams Parachute Rigger Relationship Specialty Start Date End Date Unassigned, Provider PCP - General 01/12/00 08/29/[address] [place] [address] documented as of this encounter
--- OUTSIDE RECORDS SUMMARY | 2022-02-01 12:11 | XMS_ITS | Encounter Summary ---
:1955 Author Organization [facility] Address [address] [place] [address] Care Team Providers Name Role Phone Unassigned, Provider Primary Care Provider Unavailable Encounter Details Date Type Department Care Team Description 10/11/2005 Orders Only Specialty Center 401 Marcello Monterroso MD [facility] [address] [place] [address]. [place] [address] Social History Tobacco Use Types Packs/Day Years [...] performed. P cc: MD Marcello Montgomery MD Marcelol Monterroso MD PROC_1 documented in this encounter Visit Diagnoses Not on filedocumented in this encounter Care Teams Color Tester Relationship Specialty Start Date End Date Unassigned, Provider PCP - General 01/12/00 08/29/[address] [place] [address] documented as of this encounter
--- OUTSIDE RECORDS SUMMARY | 2022-02-01 12:11 | XMS_ITS | Encounter Summary ---
:1955 Author Organization [facility] Address [address] [place] [address] Care Team Providers Name Role Phone Unassigned, Provider Primary Care Provider Unavailable Encounter Details Date Type Department Care Team Description 03/01/2001 Office Visit [facility] Sabina Zhu MD MULTIPLE SCLEROSIS; [facility] [address] [employer] [place], [place] [phone] (Wo rk) Social History Tobacco Use Types [...] history of bipolar disorder and was on [place] for a year and she stopped taking it because she was feeling better. For the past five years she has not been on [place]. She says [place] helped her a lot with her symptoms [...] he said we could start her on [place] 450-mg po bid. Her creatinine and TSH were OK. Her creatinine was .6 and TSH was 1.48. 3. I told her to follow-up with behavioral health as an outpatient and will schedule an appointment with Dr. Yusuf at 9:00 a.m. jade Dictated: 02/26/2001 16:13:40 Transcribed: 03/04/2001 11:34:50 Doc #: [id number] PATIENT NAME: YARY PHILIPPE VISIT DATE: 02/26/2001 AGE: 45Y [facility] Provider Signature Page 1 Confidential Medical Record [facility] [address] [facility] ?? [place] [address] Page Patient: YARY PHILIPPE Visit Date: 02/26/2001 Sabina Zhu MD Date of : 1955 VISIT DATE: 02/26/2001 AGE: 45Y [facility] Provider Signature GRINDER OPERATOR documented in this encounter Plan of Treatment Not on filedocumented as of this encounter Visit Diagnoses Diagnosis Multiple sclerosis (HRC) Multiple sclerosis Bipolar I disorder, most recent episode (or current) unspecified (HRC) Bipolar I disorder, most recent episode (or current) unspecified documented in this encounter Care Teams Global Sales Director Relationship Specialty Start Date End Date Unassigned, Provider PCP - General 01/12/00 08/29/[address] [place] [address] documented as of this encounter
--- OUTSIDE RECORDS SUMMARY | 2022-02-01 12:11 | XMS_ITS | Encounter Summary ---
:1955 Author Organization [facility] Address [address] [place] [address] Care Team Providers Name Role Phone No Primary/Referring, Phy Primary Care Provider Unavailable Encounter Details Date Type Department Care Team Description 02/07/2001 Orders Only Fredis Yan MD [address] [place], [place] [phone] [place] [address] [phone] (Wo rk) Social History Tobacco Use Types Packs/Day Years Used Date Smoking Tobacco: Never Assessed Sex Assigned at Date Recorded Not on file documented as of this encounter Plan of Treatment Not on filedocumented as of this encounter Procedures Procedure Name Priority Date/Time Associated Comments Diagnosis UA, MICROSCOPIC IF Waiting 02/07/2001 5:36 PM Res ults for this MEETS CRITERIA ORGAN FIXER procedure are in the results section. UA MACRO BILLING Routine 02/07/2001 5:36 PM Resul ts for this ORGAN FIXER procedure are i n the results section. documented in this encounter Results UA MICROSCOPIC IF (02/07/2001 5:36 PM ORGAN FIXER) [facility] Method Time Signature Urine Microscopic [facility] Comments exam not indicated Urine Color Yellow [facility] Urine Clarity Clear [facility] Specific 1.011 1.005 - [facility] [place] 1.030 pH, Urine 5.0 4.5 - 8.0 [...] Volume Laterality 02/07/2001 5:36 PM 1 5:49 ORGAN FIXER PM ORGAN FIXER Fredis Simmons MD LAB_1 Performing Organization Address [facility]/ZIP [facility] Phon e Number [address] [address] [place], [place] [phone] UA MACRO BILLING (02/07/2001 5:36 PM ORGAN FIXER) [facility] gist Method Time Signature Bill, UA Billed for [facility] Performed Specimen Anatomical Collection Method Collection Time Receive d Time (Source) Location / / Volume Laterality 02/07/2001 5:36 PM 1 5:49 ORGAN FIXER PM ORGAN FIXER Fredis Simmons MD LAB_1 Performing Organization Address [facility] Phon e Number [address] [address] [place], [place] [phone] documented in this encounter Visit Diagnoses Not on filedocumented in this encounter Care Teams Manager Instrumentation Relationship Specialty Start Date End Date No Primary/Referring, Phy PCP - General 08/30/11 documented as of this encounter
--- OUTSIDE RECORDS SUMMARY | 2022-02-01 12:11 | XMS_ITS | Encounter Summary ---
:1955 Author Organization [facility] Address [address] [place] [address] Care Team Providers Name Role Phone Unassigned, Provider Primary Care Provider Unavailable Encounter Details Date Type Department Care Team Description 11/05/2003 Correspondence None Unknown, Physici an [facility] [address] [place] [address] (Wo rk) Social History Tobacco Use Types Packs/Day Years Used Date Smoking Tobacco: Never Assessed Sex Assigned at Date Recorded Not on file documented as of this encounter Progress Notes Unknown, Physician - 11/05/2003 12:00 AM CDT documented in this encounter Plan of Treatment Not on filedocumented as of this encounter Visit Diagnoses Not on filedocumented in this encounter Care Teams Sterile Technician Relationship Specialty Start Date End Date Unassigned, Provider PCP - General 01/12/00 08/29/11 [address] [place] [address] documented as of this encounter
--- OUTSIDE RECORDS SUMMARY | 2022-02-01 12:11 | XMS_ITS | Encounter Summary ---
:1955 Author Organization Counts include 234 beds at the [facility] Address [address] [place] [address] Care Team Providers Name Role Phone Unassigned, Provider Primary Care Provider Unavailable Encounter Details Date Type Department Care Team Description 10/31/2003 Office Visit Fransisco Sarabia MD [address] [place], [place] [id number] SKIN SENSATION DISTURB; Nereida Reyes MD [address] [place] [address] STREP SORE THROAT; MULTIPLE SCLERO SIS; ACIDOSIS; [...] a cranberry pill. She wondered if her sgredsh-fj-osf was poisoning her. Otherwise, there was nothing further elucidated from further history. Toxicology and PharmD were consulted and felt her medications did not play a role in her lactic acidosis. We also discussed these findings with the records analysis manager of the laboratory who felt that this was highly unlikely to be error in terms of the machine as the senior software quality analyst was done on the machine twice [...] physician. She has been previously followed at [facility], and she was willing to have close followup at [facility] for her lactic acidosis as an outpatient. [...] an outpatient. She was also given the [phone] Help-Line phone number. DISPOSITION: The patient was discharged in stable condition to home. Activity as tolerated. She is on room air. Diet is low cholesterol. FOLLOWUP 1. [facility] in 1 week. She should have a lactate and chemistry-7 checked. Her fasting blood sugar should be checked and will be helpful in assessing her diabetes. She is in the process of setting up a new primary care physician and will schedule this appointment on her own. 2. Neurology clinic, Dr. Marcello Monterroso, at [facility] in 2 weeks. 3. Colonoscopy to [...] any questions, please contact this dictator at [phone]. mmj Dictated: 11/11/2003 22:39:43 Julius Tanner MD Transcribed: 11/12/2003 00:08:40 Staff: Nabeel Gonzáles MD Doc #: [id number] cc: MD Nabeel Garcia MD, Attending [facility] Marcello Monterroso MD [facility], 1 Page 2 Patient Name: MATHIEU PHILIPPE DISCHARGE SUMMARY CONFIDENTIAL MEDICAL RECORD [address] [address] Page 1 Patient: MATHIEU PHILIPPE Location: HPN: [id number] Admit Date: 10/31/2003 Date of : 1955 [...] patient is followed for this at the [facility]. She also has bipolar affective disorder for [...] this, of course, would include seizures, especially rtgwh-nmbjak-vkpw seizures. The infection etiology and especially shock, [...] please feel free to call toxicology at [phone]. The toxicology service appreciates the opportunity to participate in this patient's interesting problem and will be happy to continue to follow the patient with you if there are any further issues presenting. TIME WITH PATIENT: Approximately 30 minutes. sko Dictated: 11/03/2003 17:20:09 Cachorro Ye MD Transcribed: 11/03/2003 19:43:56 Doc #: [id number] cc: Daquan Nunez MD 1 Page 2 Patient Name: MATHIEU PHILIPPE CONSULTATION CONFIDENTIAL MEDICAL RECORD [address] [address] Page 1 Patient: MATHIEU PHILIPPE Location: 9E [facility]: [id number] Admit Date: 10/31/2003 Date of : 1955 [...] was followed by a neurologist was at [facility] per Dr. Guzman. She has been on [...] was 5/5 x 4. Coordination was normal. Xegcmv-tmdm-qqplhf, rapid alternating movements, and pegu-ptfa-cbfd tests were intact bilaterally. Sensory exam: The [...] Su MD Transcribed: 11/01/2003 09:49:06 Doc #: [id number] cc: Daquan Nunez MD, Attending This document was electronically signed by Yury Su MD on 11/19/2003 15:34:03. 1 Page 2 Patient Name: MATHIEU PHILIPPE CONSULTATION CONFIDENTIAL MEDICAL RECORD [address] [address] Page 1 Patient: MATHIEU PHILIPPE Location: 9E HPN: [id number] Admit Date: 10/31/2003 Date of : 1955 [...] Depakote and follows with Dr. Soni at [facility]. Her most recent manic episode was 2 [...] alcoholism. SOCIAL HISTORY: The patient lives in [place], [place] with her daughter and her family [...] consider deferring this to Dr. Soni at [facility]. However, also consider psyche consultation and care. 5. Tobacco abuse. She is interested in smoking cessation. We will start nicotine patch while she is here and we will discuss with regarding Wellbutrin being an indication for this patient. CODE STATUS: Full code. celestino Dictated: 11/01/2003 06:43:19 Julius Tanner MD Transcribed: 11/01/2003 07:24:55 Staff: Doc #: [id number] cc: Daquan Nunez MD, Attending 1 Page 2 Patient Name: MATHIEU PHILIPPE HISTORY & PHYSICAL CONFIDENTIAL MEDICAL RECORD [address] [address] Page 1 Patient: MATHIEU PHILIPPE Location: 9E HPN: [id number] Admit Date: 10/31/2003 Date of : 1955 [...] is 4/5 bilaterally; coordination is intact to dbuyke-vyoj-owpdbl exam and jqva-ehnc-idsx exam; light touch sensation is decreased on [...] last MRI approximately two years ago at [facility]. She states that she has had approximately 6-7 MRI scans in the past and that some of them were performed here at [facility]; however, I was unable to locate those images on EpicWeb. This patient was discussed with Dr. Reyes. DISPOSITION: Admit to medicine general floor. Neurology has been consulted and would be glad to follow up with her care. ambrocio Dictated: 10/31/2003 17:37:21 Vi Conteh MD Transcribed: 11/02/2003 09:09:01 Staff: Nereida Reyes MD Doc #: [id number] cc: Daquan Nunez MD, Attending Physician 1 Page 2 Patient Name: MATHIEU PHILIPPE Visit Date: 10/31/2003 EMERGENCY MEDICINE NOTE CONFIDENTIAL MEDICAL RECORD [address] [id number] Page 1 Patient: MATHIEU PHILIPPE Location: 9E HPN: [id number] Date of : 1955 Visit Date: 10/31/2003 [...] 11/05/2003 2:03 PM CDT PATIENT DOES SPEAK SAUDI ARABIAN BEEPER NO: [phone] CLINICAL HX:-LACIC ACIDOSIS Amen Ciro [place] [facility] [...] 11/03/2003 5:15 PM CDT PATIENT DOES SPEAK SAUDI ARABIAN BEEPER NO: [phone] CLINICAL HX:-PERSISTANT LACTIC ACIDOSIS Amen Ciro [place] [...] or hydrocephalus. Findings were called to the [facility] Emergency Room at the time of dictation. [...] ngs documented in this encounter Care Teams Reporting Consultant Relationship Specialty Start Date End Date Unassigned, Provider PCP - General 01/12/00 08/29/[address] [place] [address] documented as of this encounter
--- OUTSIDE RECORDS SUMMARY | 2022-02-01 12:11 | XMS_ITS | Encounter Summary ---
:1955 Author Organization [facility] Address [address] [place] [address] Care Team Providers Name Role Phone Unassigned, Provider Primary Care Provider Unavailable Encounter Details Date Type Department Care Team Description 11/05/2003 Correspondence None Unknown, Physici an [facility] [address] [place] [address] (Wo rk) Social History Tobacco Use Types Packs/Day Years Used Date Smoking Tobacco: Never Assessed Sex Assigned at Date Recorded Not on file documented as of this encounter Progress Notes Unknown, Physician - 11/05/2003 12:00 AM CDT documented in this encounter Plan of Treatment Not on filedocumented as of this encounter Visit Diagnoses Not on filedocumented in this encounter Care Teams Electrical Line Worker Relationship Specialty Start Date End Date Unassigned, Provider PCP - General 01/12/00 08/29/[address] [place] [address] documented as of this encounter
--- OUTSIDE RECORDS SUMMARY | 2022-02-01 12:11 | XMS_ITS | Encounter Summary ---
:1955 Author Organization [facility] Address [address] [place] [address] Care Team Providers Name Role Phone Unassigned, [...] on filedocumented in this encounter Care Teams Port Traffic Manager Relationship Specialty Start Date End Date Unassigned, Provider PCP - General 01/12/00 08/29/[address] [place] [address] documented as of this encounter
--- OUTSIDE RECORDS SUMMARY | 2022-02-01 12:11 | XMS_ITS | Encounter Summary ---
:1955 Author Organization [facility] Address [address] [place] [address] Care Team Providers Name Role Phone Unassigned, Provider Primary Care Provider Unavailable Encounter Details Date Type Department Care Team Description 09/21/2005 Orders Only Health Specialty [facility] Radiology Arrived [address] [facility] [place] [address] Social History Tobacco Use Types [...] on filedocumented in this encounter Care Teams Napper Tender Relationship Specialty Start Date End Date Unassigned, Provider PCP - General 01/12/00 08/29/11 [address] [place] [address] documented as of this encounter
--- OUTSIDE RECORDS SUMMARY | 2022-02-01 12:11 | XMS_ITS | Encounter Summary ---
:1955 Author [facility] Address [address], [place] [address] Care Team Providers Name Role Phone Unassigned, Provider Primary Care Provider Unavailable Reason for Visit Reason Onset Date Comments MEDICATION, NOS 02/15/2006 Encounter Details Date Type Department Care Team Description 02/15/2006 Telephone [facility] Marcello Monterroso MD MEDICATION, NOS [address] [facility]. . [place], [place] [address] Social History Tobacco Use Types [...] Delilah Glez RN - 02/20/2006 9:44 AM [employer] Rosemary was called back, given the information that was available regarding the Copaxone, told that if she wanted further information she would need to sign a MOHINDER and get the records faxed to the facility where the patient is now. Delilah Glez RN E[employer]ARY [employer] Delilah Glez RN - 02/15/2006 11:08 AM [facility] called, message left to call back. Delilah Glez RN Lexy Erickson - 02/15/2006 10:37 AM [facility] facility calling with theses questions Regarding Avonix WHAT DOSE WAS PATIENT ON HOW LONG ANY OTHER SAME TYPE MEDS TRIED E[employer]ARY [employer] documented in this encounter Plan of Treatment Not on filedocumented as of this encounter Visit Diagnoses Not on filedocumented in this encounter Care Teams Sales Product Manager Relationship Specialty Start Date End Date Unassigned, Provider PCP - General 01/12/00 08/29/[address] [place] [address] documented as of this encounter
--- OUTSIDE RECORDS SUMMARY | 2022-02-01 12:11 | XMS_ITS | Encounter Summary ---
:1955 Author Organization [facility] Address [address] [place] [address] Care Team Providers Name Role Phone Unassigned, Provider Primary Care Provider Unavailable Encounter Details Date Type Department Care Team Description 11/03/2003 Orders Only [facility] Unknown, Physician [address] [place] [address] [place] [address] [phone] (Wo rk) Social History Tobacco Use Types [...] on filedocumented in this encounter Care Teams Motorcycle Sales Associate Relationship Specialty Start Date End Date Unassigned, Provider PCP - General 01/12/00 08/29/11 [address] [place] [id number] documented as of this encounter
--- OUTSIDE RECORDS SUMMARY | 2022-02-01 12:11 | XMS_ITS | Encounter Summary ---
:1955 Author Organization [facility] Address [address] [place] [address] Care Team Providers Name Role Phone Unassigned, Provider Primary Care Provider Unavailable Encounter Details Date Type Department Care Team Description 09/21/2005 Orders Only [facility] Mracello Monterroso MD [address] [place], [place] [address] Social History Tobacco Use Types [...] Name Priority Date/Time Associated Diagnosis Comme nts MR BRAIN & STEM Routine 09/21/2005 12:24 PM Resul ts for this WO/W CONTRAST CDT procedure are in the results section. documented in this encounter Results MR BRAIN & STEM WO/W CONTRAST (09/21/2005 12:24 PM CDT) Anatomical Region Laterality Modality Other Specimen (Source) Anatomical Collection Method Collection Time Re ceived Time Location / / Volume Laterality 09/21/2005 12:24 PM CDT Impressions 09/29/2005 3:16 PM CDT IMPRESSION: 1. ??Allowing for differences in techniq ue, no significant change. 2. ??Patchy and somewhat confluent T2 hy perintensities in predominantly periventricular white sunita er, compatible with patient's known diagnosis of multiple sc lerosis. 3. ??No evidence of associated enhanceme nt. 4. ??Remainder is negative. Addendum # 1 by Geronimo Ruiz MD . on 09-28-2005 ??6:[address] RUIZ 09/28/05: TECHNIQUE DESCRIPTION: ??Diffusion weigh carlito sequence, axial FLAIR sequence, sagittal FLAIR sequence, T1 we ighted sagittal sequence, T2 weighted axial sequence, T1 weighted axial post contrast and T1 weighted coronal post contrast sequences were performed. It is somewhat difficult to calculate to hiro number of lesions, since most of the lesions are confluent along the ventricular system. ??There is no definite evidence of infratentorial lesions. Along with immediate pericallosal white matter, there is probably some involvement of genu of the corpus c allosum on the left as well as splenium of corpus callosum on the ri ght. ??This is best visualized on series 4 image 13 and seri es 4 image 12, respectively. ??There is probably additi onal involvement of corpus callosum with very tiny lesions at the l eft aspect of rostrum and left aspect of proximal body, best visua lized on series 5 image 11. The areas of confluent FLAIR signal are most prominent along the lateral aspect of left atrium extending approximately 6.0 cm in length and measuring up to 1.0 cm in thi ckness (series 4 image 10). Additional more prominent areas are mala cent to the posterior horn of the right lateral ventricle, measurin g approximately 1.5 cm in diameter (series 4 image 12) and adjacen t to the anterior horn of the left lateral ventricle, measuring ap proximately 2.0 x 1.0 cm in cross sectional diameter (series 4, imag e 13). ??There are additional smaller confluent as well as patchy areas in periventricular white matter. No definite evidence of enhancement of a ny of the lesions. ??Lesions that demonstrate associated hypointensit y on T1 weighted images are located in the periventricular white mat ter adjacent to anterior aspect of left lateral ventricle, (the l argest, best visualized on series 6, image 14, the T1 hypointensity measures approximately 1.0 cm in diameter), few additional smaller lesions of T1 hypointensity are adjacent to posterior aspects of bot h lateral ventricles (series 6 image 15 and series 6 image 8) . ??Slight confluent area of T1 hypointensity is also associated with the demyelinating lesion adjacent to the left atrium (series 6 im age 16). There is only minimal generalized cerebr al and cerebellar atrophy. Allowing for differences in technique, n o significant change. Narrative 09/29/2005 3:16 PM CDT MRI BRAIN...MEMORY PROBLEMS...? MS.....MS PROTOCOL....NEEDS SED.....NO MRI HEAD, 09/21/05. INDICATION: ??Multiple sclerosis, memory problems. COMPARISON: ??10/31/03. TECHNIQUE: ??Routine MRI of the head wit hout and with contrast, 20 ml Magnevist IV. FINDINGS: ??Again noted are patchy and s omewhat confluent T2 hyperintensities in predominantly perive ntricular white matter, compatible with patient's clinical diagn osis of multiple sclerosis. No evidence of associated enhancement. ? ?Considering differences in technique, no significant change. No evidence of acute or subacute infarct . ??Normal major intracranial vascular flow voids. ??Nega tive orbits. ??Clear paranasal sinuses and mastoid air cells. ??Normal size symmetric ventricles. Marcello Monterroso MD RAD MRI/RH documented in this encounter Visit Diagnoses Not on filedocumented in this encounter Care Teams Epic [employer] Specialists Relationship Specialty Start Date End Date Unassigned, Provider PCP - General 01/12/00 08/29/[address] [place] [address] documented as of this encounter
--- OUTSIDE RECORDS SUMMARY | 2022-02-01 12:11 | XMS_ITS | Encounter Summary ---
:1955 Author Organization [facility] Address [address] [place] [address] Care Team Providers Name Role Phone Unassigned, Provider Primary Care Provider Unavailable Encounter Details Date Type Department Care Team Description 09/18/2005 Notes/Orders Specialty [facility] 401 Stacie Bautista, KANE RN, [facility] REHABILITATION SERVICES AIDE [address] [facility]. [address] [place] [address] [place] [address] [phone] (Wo rk) Social History Tobacco Use Types [...] BASIC METABOLIC PANEL (09/18/2005 2:29 PM CDT) [facility] gist Method Time Signature BUN 13 10 [...] Bautista APRN, CNP LAB_1 Performing Organization Address [facility] Phon e Number [facility] [phone] [facility] [address] [address] LYME ANTIBODY (09/18/2005 2:29 PM CDT) athologist Signature Lyme Antibody 0.46 <0.75 OD [facility] Ratio Comment: Negative Specimen Anatomical Collection Method Collection Time Receive d Time (Source) Location / / Volume Laterality 09/18/2005 2:29 PM 6 2:31 CDT PM CDT Stacie Bautista APRN, CNP LAB_1 Performing Organization Address [facility] Phon e Number [facility] [phone] [address] TSH, SENSITIVE (WITH REFLEX) (09/18/2005 2:29 PM CDT) athologist Signature TSH, with 2.46 0.3 - 5.0 [facility] Reflex uIU/ml Specimen Anatomical Collection Method Collection Time Receive d Time (Source) Location / / Volume Laterality 09/18/2005 2:29 PM 6 2:31 CDT PM CDT Stacie Bautista APRN, CNP LAB_1 Performing Organization Address [facility] Phon e Number [facility] [phone] [facility] [address] [place] [address] (ABNORMAL) HEMOGRAM/PLTS/DIFF (09/18/2005 2:29 PM CDT) [facility] Method Time Signature WBC 10.5 4.0 - 11.0 [facility] k/ul RBC 4.35 4.0 - 5.2 [facility] M/ul Hemoglobin 13.6 12.0 - [facility] 16.0 g/dl HCT 40.8 36.0 - [facility] 46.0 % MCV 93.9 80 - 100 [facility] fl MCH 31.3 26 - 34 pg [facility] MCHC 33.4 32 - 36 % [facility] RDW 13.3 11.5 - [facility] 14.5 % Platelets 354 150 - 450 [facility] k/ul PMN/Band 45 43 - 72 % [facility] Lymph 43 17 - 43 % [facility] [place] 5 4 - 12 % [facility] Eos 6 0 - 8 % [facility] Baso 1 0 - 1 % [facility] Neutrophil 4.7 1.8 - 7.7 [facility] Absolute k/ul Lymph Absolute 4.5 1.0 - 4.8 [facility] k/ul [place] Absolute 0.5 0.1 - 0.7 [facility] k/ul Eos Absolute 0.7 (H) 0.0 - 0.5 [facility] k/ul Baso Absolute 0.1 0.0 - 0.2 [facility] k/ul Specimen Anatomical Collection Method Collection Time Receive d Time (Source) Location / / Volume Laterality 09/18/2005 2:29 PM 6 2:31 CDT PM CDT Stacie Bautista APRN, CNP LAB_1 Performing Organization Address [facility] Phon e Number [facility] [phone] [phone] OSCAR SCREEN (09/18/2005 2:29 PM CDT) athologist Signature OSCAR Screen Negative NEG [facility] Specimen Anatomical Collection Method Collection Time Receive d Time (Source) Location / / Volume Laterality 09/18/2005 2:29 PM 6 2:31 CDT PM CDT Stacie Bautista APRN, CNP LAB_1 Performing Organization Address [facility] Phon e Number [facility] [phone] [phone] VIT B12 & FOLATE (09/18/2005 2:29 PM CDT) athologist Signature Vitamin B12 235 211 - 911 [facility] pg/ml Folate 5.3 >3.0 ng/ml [facility] Specimen Anatomical Collection Method Collection Time Receive d Time (Source) Location / / Volume Laterality 09/18/2005 2:29 PM 6 2:31 CDT PM CDT Stacie Bautista APRN, CNP LAB_1 Performing Organization Address [facility] Phon e Number [facility] [phone] [facility] [address] [place] [address] (ABNORMAL) HGB A1C (09/18/2005 2:29 PM CDT) athologist Signature Hgb A1c 7.7 (H) 4.3 - 6.1 % [facility] Specimen Anatomical Collection Method Collection Time Receive d Time (Source) Location / / Volume Laterality 09/18/2005 2:29 PM 6 2:31 CDT PM CDT Stacie Bautista APRN, CNP LAB_1 Performing Organization Address [facility] Phon e Number [facility] [phone] [address] AST (SGOT) (09/18/2005 2:29 PM CDT) athologist Signature AST (SGOT) 24 <45 U/L [facility] Specimen Anatomical Collection Method Collection Time Receive d Time (Source) Location / / Volume Laterality 09/18/2005 2:29 PM 6 2:31 CDT PM CDT Stacie Bautista APRN, CNP LAB_1 Performing Organization Address [facility] Phon e Number [facility] [phone] [address] ALT (SGPT) (09/18/2005 2:29 PM CDT) athologist Signature ALT (SGPT) 21 0 - 55 U/L [facility] Specimen Anatomical Collection Method Collection Time Receive d Time (Source) Location / / Volume Laterality 09/18/2005 2:29 PM 6 2:31 CDT PM CDT Stacie Bautista APRN, MITCH LAB_1 Performing Organization Address City/State/ZIP Code Phon e Number [facility] [phone] [facility] [address] [address] documented in this encounter Visit Diagnoses Diagnosis Memory loss documented in this encounter Care Teams Bisque Brusher Relationship Specialty Start Date End Date Unassigned, Provider PCP - General 01/12/00 08/29/11 [address] [place] [address] documented as of this encounter
--- OUTSIDE RECORDS SUMMARY | 2022-02-01 12:11 | XMS_ITS | Encounter Summary ---
:1955 Author Organization [facility] Address [address] [place] [address] Care Team Providers Name Role Phone Unassigned, Provider Primary Care Provider Unavailable Encounter Details Date Type Department Care Team Description 07/07/2004 Correspondence [facility] Marcello Monterroso, LETTER STATING TO CALL [address] Romy Seo MD WHEN APPT CANCEL [place] [id number] Social History Tobacco Use Types Packs/Day Years Used Date Smoking Tobacco: Never Assessed Sex Assigned at Date Recorded Not on file documented as of this encounter Progress Notes Marcello Monterroso - 07/07/2004 12:00 AM CDT documented in this encounter Plan of Treatment Not on filedocumented as of this encounter Visit Diagnoses Not on filedocumented in this encounter Care Teams Cellular Equipment Installer Relationship Specialty Start Date End Date Unassigned, Provider PCP - General 01/12/00 08/29/11 [address] [place] [address] documented as of this encounter
--- OUTSIDE RECORDS SUMMARY | 2022-02-01 12:11 | XMS_ITS | Encounter Summary ---
:1955 Author Organization [facility] Address [address] [place] [address] [place] [address] Care Team Providers Name Role Phone Unassigned, Provider Primary Care Provider Unavailable Reason for Visit Reason Comments MULTIPLE SCLEROSIS Encounter Details Date Type Department Care Team Description 08/19/2007 Office Visit [facility] Marcello Monterroso, Multiple Sclerosis (Primary Dx); [address] Gabbi [place] Obesity, Unspecified [place], [place] [address] Social History Tobacco Use Types Packs/Day Years [...] unspecified documented in this encounter Care Teams Mineral Wool Insulation Supervisor Relationship Specialty Start Date End Date Unassigned, Provider PCP - General 01/12/00 08/29/[address] [place] [address] documented as of this encounter
--- OUTSIDE RECORDS SUMMARY | 2022-02-01 12:11 | XMS_ITS | Encounter Summary ---
:1955 Author Organization [facility] Address [address] [place] [address] Care Team Providers Name Role Phone Unassigned, Provider Primary Care Provider Unavailable Encounter Details Date Type Department Care Team Description 12/29/2004 Scanned History External to External, Provid er [facility] [place] [address] Social History Tobacco Use Types Packs/Day Years [...] on filedocumented in this encounter Care Teams Catalog Library Assistant Relationship Specialty Start Date End Date Unassigned, Provider PCP - General 01/12/00 08/29/[address] [place] [address] documented as of this encounter
--- OUTSIDE RECORDS SUMMARY | 2022-02-01 12:12 | XMS_ITS | Encounter Summary ---
:1955 Author Organization [facility] Address [address] [place] [address] Care Team Providers Name Role Phone Unavailable Primary Care Provider Unavailable Reason for Visit Reason Comments BLOOD PRESSURE, HIGH Pt of Dr Linares. MULTIPLE SCLEROSIS Medication Questions HEADACHE Encounter Details Date Type Department Care Team Description 12/31/1999 Telephone Careline Gabe Gamez, BLOOD PRESSURE, HIGH [address] RN ([place] 97[address] 5 AFTER HOURS CARE Vijay.); MULTIPLE [phone]; Medication SE Questions; HEADACHE [place] [phone] 14 Social History Tobacco Use Types Packs/Day [...]
--- OUTSIDE RECORDS SUMMARY | 2022-02-01 12:12 | XMS_ITS | Encounter Summary ---
:1955 Author Organization [facility] Address [address] [place] [address] Care Team Providers Name Role Phone Unassigned, Provider Primary Care Provider Unavailable Encounter Details Date Type Department Care Team Description 03/13/2000 Orders Only Epic, [place] [address] Social History Tobacco Use Types Packs/Day Years Used Date Smoking Tobacco: Never Assessed Sex Assigned at Date Recorded Not on file documented as of this encounter Plan of Treatment Not on filedocumented as of this encounter Visit Diagnoses Not on filedocumented in this encounter Care Teams Die Mounter Relationship Specialty Start Date End Date Unassigned, Provider PCP - General 01/12/00 08/29/[address] [place] [address] documented as of this encounter
--- OUTSIDE RECORDS SUMMARY | 2022-02-01 12:12 | XMS_ITS | Encounter Summary ---
:1955 Author Organization [facility] Address [address] [place] [address] Care Team Providers Name Role Phone Unavailable Primary Care Provider Unavailable Encounter Details Date Type Department Care Team Description 11/29/1999 Office Visit [facility] HEADACHE; [address] [place] [address] MULTIPLE SCLEROSIS; [place] [address] HYPERTENSION NOS [phone] Social History Tobacco Use Types Packs/Day Years [...]
--- OUTSIDE RECORDS SUMMARY | 2022-02-01 12:12 | XMS_ITS | Encounter Summary ---
:1955 Author Organization [facility] Address [address] [place] [address] Care Team Providers Name Role Phone Unassigned, [...] prescriptions documented in this encounter Care Teams Loan Collector Relationship Specialty Start Date End Date Unassigned, Provider PCP - General 01/12/00 08/29/[address] [place] [address] documented as of this encounter
--- OUTSIDE RECORDS SUMMARY | 2022-02-01 12:12 | XMS_ITS | Encounter Summary ---
:1955 Author Organization [facility] Address [address] [place] [address] Care Team Providers Name Role Phone No Primary/Referring, Phy Primary Care Provider Unavailable Encounter Details Date Type Department Care Team Description 02/07/2001 Orders Only Fredis Yan MD [address] [place], [place] [address] [place] [address] [phone] (Wo rk) Social History Tobacco Use Types Packs/Day Years Used Date Smoking Tobacco: Never Assessed Sex Assigned at Date Recorded Not on file documented as of this encounter Plan of Treatment Not on filedocumented as of this encounter Procedures Procedure Name Priority Date/Time Associated Diagnosis Comme nts HEMOGRAM & Waiting 02/07/2001 5:36 PM Results f or this PLATELETS COUNSELING DEPARTMENT CHAIR procedure are i n the results section. BASIC METABOLIC Waiting 02/07/2001 5:36 PM Result s for this PANEL COUNSELING DEPARTMENT CHAIR procedure are i n the results section. documented in this encounter Results (ABNORMAL) BASIC METABOLIC PANEL (02/07/2001 5:36 PM COUNSELING DEPARTMENT CHAIR) P athologist Signature BUN 17 10 - [...] Volume Laterality 02/07/2001 5:36 PM 1 5:51 COUNSELING DEPARTMENT CHAIR PM COUNSELING DEPARTMENT CHAIR Fredis Simmons MD LAB_1 Performing Organization Address [facility] e Number [address] [address] [place], [place] [phone] HEMOGRAM+PLATELETS (02/07/2001 5:36 PM COUNSELING DEPARTMENT CHAIR) P athologist Signature WBC 10.2 4.5 - [...] Volume Laterality 02/07/2001 5:36 PM 1 5:51 COUNSELING DEPARTMENT CHAIR PM COUNSELING DEPARTMENT CHAIR Fredis Simmons MD LAB_1 Performing Organization Address [facility] e Number [address] [address] [place], [place] [phone] documented in this encounter Visit Diagnoses Not on filedocumented in this encounter Care Teams Psychiatric Assistant Relationship Specialty Start Date End Date No Primary/Referring, Phy PCP - General 08/30/11 documented as of this encounter
--- OUTSIDE RECORDS SUMMARY | 2022-02-01 12:12 | XMS_ITS | Encounter Summary ---
:1955 Author Organization [facility] Address [address] [place] [address] Care Team Providers Name Role Phone Unassigned, Provider Primary Care Provider Unavailable Encounter Details Date Type Department Care Team Description 02/07/2001 [facility] Y Daquan Yates MD [address], [place] [address] MULTIPLE SCLEROSIS; [address] [facility] [address] [place], [place] [id number] SKIN SENSATION DISTURB; [place] [address] PAIN IN LIMB; COUGH; HYPERTENSION NO S; [...] been followed by Dr Marcello Monterroso at [facility]. She has had flare-ups in [...] dictated admission history and physical, Job ID# [id number]. Her vital signs were stable on admission. Positive findings on her examination were: Cranial nerves II through XII grossly intact. Motor: Strength 5/5 in the lower limbs, 5/5 in the left upper limb, and 3/5 in the right upper limb. DTRs 2+ and symmetrical. Babinski's downgoing. She has decreased sensation down her right leg and right foot on the dorsal side. Mhwbks-lt-pbdd coordination test: She had intention tremor, and [...] primary medical doctor in one week at [facility], and she was given instructions to go to emergency room for Solu-Medrol IV on February 09, 2001. She also was told to get the rest of her Solu-Medrol doses, 2 days' doses, at chemotherapy infusion room at [facility]. She got 2 doses of intravenous Solu-Medrol before she was discharged home. She is to follow up with neurology clinic in 2-[address] Espinoza. j Dictated: 02/15/2001 12:54:06 Sabina Zhu MD Transcribed: 02/17/2001 10:50:50 Patient seen with Doc #: [id number] cc: Betty Linares MD, Primary Daquan Nunez MD, Attending Alonso Hoover MD, Referring 2 Page 2 Patient Name: YARY PHILIPPE DISCHARGE SUMMARY CONFIDENTIAL MEDICAL RECORD [address] [phone] Page 1 Patient: YARY PHILIPPE Location: [facility] HPN: Admit Date: 02/07/2001 Date of : 1955 Discharge Date: 02/08/2001 DISCHARGE SUMMARY WOOL APPLICATOR documented in this encounter Progress Notes Daquan [...] Nunez MD Transcribed: 02/11/2001 03:46:26 Doc #: [id number] cc: Betty Linares MD, Primary Alonso Hoover MD, Referring 1 Page 1 Patient Name: YARY PHILIPPE INTERIM SUMMARY CONFIDENTIAL MEDICAL RECORD [address] [phone] Page 1 Patient: YARY PHILIPPE Location: [facility] HPN: Admit Date: 02/07/2001 Date of : 1955 Discharge Date: 02/08/2001 INTERIM SUMMARY WOOL APPLICATOR documented in this encounter Consult Notes Rj Mckeon - 02/07/2001 12:00 AM CSTNEUROLOGY CONSULTATION DATE OF CONSULTATION: 02/08/2001. REQUESTING PHYSICIAN: Aileen Estes MD REASON FOR CONSULTATION: Multiple sclerosis exacerbation, evaluation and plan for treatment. HISTORY OF PRESENT ILLNESS: The patient is a 45-year-old woman with a past medical history of multiple sclerosis who is the past has been followed at [facility] by Dr. Espinoza in the Neurology Clinic. [...] Mckeon MD Transcribed: 02/09/2001 18:36:45 Doc #: [id number] cc: MD Betty Mccollum MD, Primary Alonso Hoover MD, Referring Daquan Nunez MD, Attending 2 Page 2 Patient Name: YARY PHILIPPE CONSULTATION CONFIDENTIAL MEDICAL RECORD [address] [phone] Page 1 Patient: YARY PHILIPPE Location: [facility] HPN: Admit Date: 02/07/2001 Date of : 1955 Discharge Date: 02/08/2001 CONSULTATION WOOL APPLICATOR documented in this encounter OR Notes H&P [...] by Dr Marcello Monterroso, a neurologist at [facility], but she has not seen [...] dorsal side. Vibration and position sense normal. Qxbdjt-rh-apoq coordination test: She has intention tremors. She has some cerebellar signs on exam. She also has tremor of both hands, mostly in the left hand. Gait: She drags her feet, mainly on the right side. LABORATORY DATA: White count 10.2, hemoglobin 13.3, platelets 331. Sodium 134, potassium 3.9, BUN 17, creatinine 0.7, chloride 99, bicarbonate 25, calcium 8.9. ASSESSMENT ~ PLAN: Kftxc-iou-bvtt-old woman here with multiple sclerosis exacerbation. 1. [...] Zhu MD Transcribed: 02/07/2001 20:47:37 Doc #: [id number] cc: Betty Linares MD, Primary Physician Aileen Estes MD, Attending Physician Alonso Hoover MD, Referring Physician 2 Page 2 Patient Name: YARY PHILIPPE HISTORY ~ PHYSICAL CONFIDENTIAL MEDICAL RECORD [address] [place] [address] [phone] Page 1 Patient: YARY PHILIPPE Location: HPN: Admit Date: 02/07/2001 Date of : 1955 HISTORY ~ PHYSICAL WOOL APPLICATOR documented in this encounter ED Notes Jeaneth [...] She will be admitted to general medicine [facility] for her MS exacerbation. glt Dictated: 02/07/2001 18:42:39 Jeaneth Pearl MD Transcribed: 02/08/2001 06:13:05 Patient seen with Luis Joseph MD Doc #: [id number] cc: Betty Linares MD, primary 1 Page 1 Patient Name: YARY PHILIPPE Visit Date: 02/07/2001 EMERGENCY MEDICINE NOTE CONFIDENTIAL MEDICAL RECORD [address] [phone] Page 1 Patient: YARY PHILIPPE [facility] 1955 Visit Date: 02/07/2001 EMERGENCY MEDICINE NOTE WOOL APPLICATOR documented in this encounter Plan of Treatment Not on filedocumented as of this encounter Procedures Procedure Name Priority Date/Time Associated Diagnosis Comme nts CHEST PA/LATERAL Routine 02/07/2001 5:53 PM Resul ts for this ROCK WOOL APPLICATOR procedure are i n the results section. documented in this encounter Results CHEST PA/LATERAL (02/07/2001 5:53 PM ROCK WOOL APPLICATOR) [facility] gist Method Time Signature Chest AP/PA + CHEST, PA AND LATERAL 02/07/2001: [facility] Lateral 2 CLINICAL HISTORY: Cough. RADIO LOGY Views Lung etienne appear clear. Heart and pulmonary vasculature are within normal limits. IMPRESSION: Negative chest. Anatomical Region Laterality Modality Other Specimen (Source) Anatomical Collection Method Collection Time Re ceived Time Location / / Volume Laterality 02/07/2001 5:53 PM ROCK WOOL APPLICATOR Fredis Simmons MD RAD GENERAL DIAGNOSTIC/RH documented in this encounter Visit Diagnoses Diagnosis Multiple sclerosis (HRC) Multiple sclerosis Disturbance of skin sensation Pain in limb Cough Unspecified essential hypertension (HRC) Unspecified essential hypertension Esophageal reflux Screening for other and unspecified card iovascular conditions documented in this encounter Care Teams Eap Consultant Relationship Specialty Start Date End Date Unassigned, Provider PCP - General 01/12/00 08/29/[address] [place] [address] documented as of this encounter
--- OUTSIDE RECORDS SUMMARY | 2022-02-01 12:12 | XMS_ITS | Encounter Summary ---
:1955 Author Organization [facility] Address [address] [place] [address] Care Team Providers Name Role Phone Unassigned, Provider Primary Care Provider Unavailable Encounter Details Date Type Department Care Team Description 04/10/2000 Office Visit Leroy Leal MD DYSPHAGIA; [address] ESOPHAGEAL REFLUX [place], [place] [address] (Wo rk) Social History Tobacco Use Types Packs/Day Years Used Date Smoking Tobacco: Never Assessed Sex Assigned at Date Recorded Not on file documented as of this encounter Plan of Treatment Not on filedocumented as of this encounter Visit Diagnoses Diagnosis Dysphagia Esophageal reflux documented in this encounter Care Teams Cardiology Nurse Practitioner Relationship Specialty Start Date End Date Unassigned, Provider PCP - General 01/12/00 08/29/11 [address] [place] [address] documented as of this encounter
--- OUTSIDE RECORDS SUMMARY | 2022-02-01 12:12 | XMS_ITS | Encounter Summary ---
:1955 Author Organization [facility] [address] [place] [address] Care Team Providers Name Role Phone Unassigned, Provider Primary Care Provider Unavailable Encounter Details Date Type Department Care Team Description 04/10/2000 Scanned History [facility] Jordan Muniz UPPER ENDOSCOPY Gastroenterology MD Carmita [address] [place] [address] Social History Tobacco Use Types Packs/Day Years Used Date Smoking Tobacco: Never Assessed Sex Assigned at Date Recorded Not on file documented as of this encounter Plan of Treatment Not on filedocumented as of this encounter Visit Diagnoses Not on filedocumented in this encounter Care Teams Highway Worker Relationship Specialty Start Date End Date Unassigned, Provider PCP - General 01/12/00 08/29/[address] [place] [address] documented as of this encounter
--- OUTSIDE RECORDS SUMMARY | 2022-02-01 12:12 | XMS_ITS | Encounter Summary ---
:1955 Author Organization [facility] Address [address] [place] [address] Care Team Providers Name Role Phone Unavailable Primary Care Provider Unavailable Encounter Details Date Type Department Care Team Description 12/07/1999 Office Visit [facility], [facility] PHARYNGITIS(SORE [address] THROAT) [facility] [address] [place] [address] (Wo rk) Social History Tobacco Use Types Packs/Day Years Used Date Smoking Tobacco: Never Assessed Sex Assigned at Date Recorded Not on file documented as of this encounter Plan of Treatment Not on filedocumented as of this encounter Visit Diagnoses Diagnosis Acute pharyngitis documented in this encounter
--- OUTSIDE RECORDS SUMMARY | 2022-02-01 12:12 | XMS_ITS | Encounter Summary ---
:1955 Author Organization [facility] Address [address], [place] [address] Care Team Providers Name Role Phone Unassigned, [...] 08/16/2000 12:00:00 Transcribed: 08/22/2000 08:31:02 Doc #: [id number] PATIENT NAME: YARY PHILIPPE VISIT DATE: 08/16/2000 AGE: 45Y [facility] Provider Signature Page 2 Confidential Medical Record [facility] [address] [place] [address] ?? [place] [phone] Page Patient: YARY PHILIPPE Carmita Visit Date: 08/16/2000 Betty Linares MD Date of : 1955 VISIT DATE: 08/16/2000 AGE: 45Y [facility] Provider Signature documented in this encounter Plan of Treatment Not on filedocumented as of this encounter Visit Diagnoses Diagnosis Multiple sclerosis (HRC) Multiple sclerosis Unspecified essential hypertension (HRC) Unspecified essential hypertension Examination of eyes and vision documented in this encounter Care Teams Electrical Fitter Relationship Specialty Start Date End Date Unassigned, Provider PCP - General 01/12/00 08/29/[address] [place] [address] documented as of this encounter
--- OUTSIDE RECORDS SUMMARY | 2022-02-01 12:12 | XMS_ITS | Encounter Summary ---
:1955 Author Organization [facility] Address [address] [place] [address] Care Team Providers Name Role Phone No Primary/Referring, Phy Primary Care Provider Unavailable Encounter Details Date Type Department Care Team Description 01/10/2001 Orders Only Braydon Jackson MD [address] [place], [place] [phone] [place] [address] (Wo rk) Social History Tobacco Use Types Packs/Day Years Used Date Smoking Tobacco: Never Assessed Sex Assigned at Date Recorded Not on file documented as of this encounter Plan of Treatment Not on filedocumented as of this encounter Procedures Procedure Name Priority Date/Time Associated Diagnosis Comme nts UA CONDITIONAL UC Routine 01/10/2001 3:06 PM Resu lts for this CDT procedure are i n the results section. documented in this encounter Results UA CONDITIONAL UC (01/10/2001 3:06 PM CDT) [facility] Method Time Signature Conditional UC Not [facility] Culture Indicated Urine Comments Microscopic [facility] exam not indicated Urine Comments Epithelial [facility] Cells Seen Urine Color Yellow [facility] Urine Clarity Hazy [facility] Specific 1.025 1.005 - [facility] [place] 1.030 pH, Urine 5.0 4.5 - 8.0 [facility] Protein, Urine Neg mg/dl [facility] Qual Glucose, Urine Neg mg/dl [facility] Qual Ketones, Urine Neg mg/dl [facility] Urobil, Urine 0.2 0.2 - 1.0 [facility] Qual EU/dl Bilirubin, Neg [facility] Urine Blood, Urine Neg [facility] Nitrite, Urine Neg [facility] Leukocyte Est., Neg [facility] Ur Specimen Anatomical Collection Method Collection Time Receive d Time (Source) Location / / Volume Laterality 01/10/2001 3:06 PM 1 3:08 CDT PM CDT Braydon Gonzalez MD LAB_1 Performing Organization Address City/State/ZIP Code Phon e Number [address] [address] [place], [place] [phone] documented in this encounter Visit Diagnoses Not on filedocumented in this encounter Care Teams Supervisor Dials Relationship Specialty Start Date End Date No Primary/Referring, Phy PCP - General 08/30/11 documented as of this encounter
--- OUTSIDE RECORDS SUMMARY | 2022-02-01 12:12 | XMS_ITS | Encounter Summary ---
:1955 Author Organization [facility] Address [address], [place] [address] Care Team Providers Name Role Phone Unassigned, Provider Primary Care Provider Unavailable Encounter Details Date Type Department Care Team Description 11/07/2000 Office Visit Emergency Dept MULTIPLE SCLEROSIS; [address] [facility] [address] Social History Tobacco Use Types Packs/Day Years [...] lot of stress and weather in the [facility] has been phenomenally hot with record temperatures [...] positive. EXTREMITIES: The patient has 5/5 bilateral cloth napping supervisor strength. The patient has dorsiflexion and plantar [...] instructions are to follow up KAMILLE with [facility]. Medications: Baclofen 10 mg p.o. t.i.d. The patient stable at time of discharge. jcs/mgd Dictated: 11/07/2000 23:35:17 Troy Harrison MD/Glen Villarreal MD Transcribed: 11/08/2000 07:44:12 Patient seen with Agustin Thomas MD/Shane Hilton MD Revised: 11/08/2000 09:14:00 /[id number] Doc #: [id number] cc: [facility] Betty Linares MD, Primary 2 Page 2 Patient Name: YARY PHILIPPE Visit Date: 11/07/2000 EMERGENCY MEDICINE NOTE CONFIDENTIAL MEDICAL RECORD [address] [phone] Page 1 Patient: YARY PHILIPPE [facility] : 1955 Visit Date: 11/07/2000 EMERGENCY MEDICINE NOTE documented in this encounter Plan of Treatment Not on filedocumented as of this encounter Visit Diagnoses Diagnosis Multiple sclerosis (HRC) Multiple sclerosis Spasm of muscle documented in this encounter Care Teams Dyeing Machine Feeder Relationship Specialty Start Date End Date Unassigned, Provider PCP - General 01/12/00 08/29/[address] [place] [address] documented as of this encounter
--- OUTSIDE RECORDS SUMMARY | 2022-02-01 12:12 | XMS_ITS | Encounter Summary ---
:1955 Author Organization [facility] Address [address], [place] [address] Care Team Providers Name Role Phone Unassigned, Provider Primary Care Provider Unavailable Reason for Visit Reason Comments STOMACH PROBLEM VIA INTERFACE Encounter Details Date Type Department Care Team Description 03/13/2000 Office Visit [facility] RenoLevi ESOPHAGEAL R EFLUX; Alden Gomez MD VACCINE FOR INFLUENZA [address] [address] [place] [address] [place], [place] [phone] [id number] Social History Tobacco Use Types Packs/Day Years Used Date Smoking Tobacco: Never Assessed Sex Assigned at Date Recorded Not on file documented as of this encounter Progress Notes Levi Pozo G - 03/13/2000 12:00 AM CSTS: This 44-year-old woman complains of gastroesophageal reflux symptoms with burning in her chest, worse especially after she eats tomato sauce. She has been using Zantac dzmw-uwx-ugsmard, it used to work but doesn't seem [...] INFLUENZA documented in this encounter Care Teams Outreach Liaison Relationship Specialty Start Date End Date Unassigned, Provider PCP - General 01/12/00 08/29/[address] [place] [address] documented as of this encounter
--- OUTSIDE RECORDS SUMMARY | 2022-02-01 12:12 | XMS_ITS | Encounter Summary ---
:1955 Author Organization [facility] Address [address] [place] [address] Care Team Providers Name Role Phone Unassigned, Provider Primary Care Provider Unavailable Reason for Visit Reason Comments RECTAL BLEEDING Encounter Details Date Type Department Care Team Description 07/10/2000 Telephone Careline Yin Anne, RN RECTAL BLEEDING [address] [place], [place] [address] [phone] [place] [address] Social History Tobacco Use Types Packs/Day Years [...] refused strongly recomm. to be driven to [facility] ER, now. ETA:10min has a ride w/her-will leave now caller states is comf. with plan. documented in this encounter Plan of Treatment Not on filedocumented as of this encounter Visit Diagnoses Not on filedocumented in this encounter Care Teams Academic Guidance Specialist Relationship Specialty Start Date End Date Unassigned, Provider PCP - General 01/12/00 08/29/11 [address] [place] [address] documented as of this encounter
--- OUTSIDE RECORDS SUMMARY | 2022-02-01 12:12 | XMS_ITS | Encounter Summary ---
:1955 Author Organization [facility] Address [address] [place] [address] Care Team Providers Name Role Phone Unavailable [...]
--- OUTSIDE RECORDS SUMMARY | 2022-02-01 12:12 | XMS_ITS | Encounter Summary ---
:1955 Author Organization [facility] Address [address] [place] [address] Care Team Providers Name Role Phone Unassigned, Provider Primary Care Provider Unavailable Reason for Visit Reason Comments MULTIPLE SCLEROSIS Leg pain/spasms. Medication Request Encounter Details Date Type Department Care Team Description 02/04/2000 Telephone Careline Mounika Roca, MULTIPLE SCLEROSIS [address] RN (Leg pain/spasms.); [place], [place] [phone] [facility] Medication Request [phone] [place], [place] [id number] (Wo rk) Social History Tobacco Use Types Packs/Day Years Used Date Smoking Tobacco: Never Assessed Sex Assigned at Date Recorded Not on file documented as of this encounter Nursing Notes 02/04/2000 11:[address] REGISTRAR >> MOUNIKA Bragg Feb 04, 2000 9:53 [...] Castañeda. He recommends pt be seen in [facility] or with Dr. Rollins tomorrow.Doctor is not [...] on filedocumented in this encounter Care Teams Glassie Relationship Specialty Start Date End Date Unassigned, Provider PCP - General 01/12/00 08/29/[address] [place] [address] documented as of this encounter
--- OUTSIDE RECORDS SUMMARY | 2022-02-01 12:12 | XMS_ITS | Encounter Summary ---
:1955 Author [facility] Address [address] [place] [address] Care Team Providers Name Role Phone Unassigned, Provider Primary Care Provider Unavailable Encounter Details Date Type Department Care Team Description 01/10/2001 Office Visit [facility] Sabina Zhu MD ENURESIS NOS; [facility] [address] [place] [address] (Wo rk) Social History Tobacco [...] patient has been discussed with Dr. Gonzalez. [facility] Dictated: 01/10/2001 15:31:00 Transcribed: 01/14/2001 13:58:41 Doc #: [id number] Braydon Gonzaelz MD PATIENT NAME: YARY PHILIPPE VISIT DATE: 01/10/2001 AGE: 45Y [facility] Provider Signature Page 2 Confidential Medical Record [facility] [address] [facility] ?? [place] [address] Page Patient: YARY PHILIPPE Visit Date: 01/10/2001 Sabina Zhu MD Date of : 1955 VISIT DATE: 01/10/2001 AGE: 45Y [facility] Provider Signature documented in this encounter Plan of Treatment Not on filedocumented as of this encounter Visit Diagnoses Diagnosis Unspecified urinary incontinence Multiple sclerosis (HRC) Multiple sclerosis documented in this encounter Care Teams Truck Packer Relationship Specialty Start Date End Date Unassigned, Provider PCP - General 01/12/00 08/29/[address] [place] [address] documented as of this encounter
--- OUTSIDE RECORDS SUMMARY | 2022-02-01 12:12 | XMS_ITS | Encounter Summary ---
:1955 Author Organization [facility] Address [address] [place] [address] Care Team Providers Name Role Phone Unavailable [...]
--- OUTSIDE RECORDS SUMMARY | 2022-02-01 12:12 | XMS_ITS | Encounter Summary ---
:1955 Author Organization [facility] Address [address], [place] [address] Care Team Providers Name Role Phone Unassigned, Provider Primary Care Provider Unavailable Encounter Details Date Type Department Care Team Description 01/28/2001 Office Visit [facility] Sabina Zhu MD [facility] [address] [place] [address] (Wo rk) Social History Tobacco [...] 01/28/2001 14:25:00 Transcribed: 01/31/2001 10:32:00 Doc #: [id number] PATIENT NAME: YARY PHILIPPE VISIT DATE: 01/28/2001 AGE: 45Y [facility] Provider Signature Page 2 Confidential Medical Record [facility] [address] [place] [address] ?? [place] [address] Page Patient: YARY PHILIPPE Visit Date: 01/28/2001 Sabina Zhu MD Date of : 1955 VISIT DATE: 01/28/2001 AGE: 45Y [facility] Provider Signature SPACE PROJECT ENGINEER documented in this encounter Plan of Treatment Not on filedocumented as of this encounter Visit Diagnoses Not on filedocumented in this encounter Care Teams Technician Support Association Relationship Specialty Start Date End Date Unassigned, Provider PCP - General 01/12/00 08/29/[address] [place] [address] documented as of this encounter
--- OUTSIDE RECORDS SUMMARY | 2022-02-01 12:12 | XMS_ITS | Encounter Summary ---
:1955 Author Organization [facility] [address], [place] [address] Care Team Providers Name Role Phone Unassigned, Provider Primary Care Provider Unavailable Encounter Details Date Type Department Care Team Description 02/09/2000 Office Visit [facility] Shane Dominguez MD CHEST PAIN NOS Cardiology [facility] [address] [place] [address] 640 [facility] [phone] [place], [place] [address] (Wo rk) Social History Tobacco Use Types Packs/Day Years Used Date Smoking Tobacco: Never Assessed Sex Assigned at Date Recorded Not on file documented as of this encounter Plan of Treatment Not on filedocumented as of this encounter Visit Diagnoses Diagnosis Chest pain, unspecified documented in this encounter Care Teams German Tutor Relationship Specialty Start Date End Date Unassigned, Provider PCP - General 01/12/00 08/29/11 [address] [place] [address] documented as of this encounter
--- OUTSIDE RECORDS SUMMARY | 2022-02-01 12:12 | XMS_ITS | Encounter Summary ---
:1955 Author Organization [facility] Address [address] [place] [address] Care Team Providers Name Role Phone Unassigned, Provider Primary Care Provider Unavailable Encounter Details Date Type Department Care Team Description 01/31/2000 Office Visit [facility] [place] CHEST RUT N NOS; [facility] MD Cata MALIGNANT HYPERTENSION; UNASSIGNED CLINI C HYPERTENSION NOS [address] [place] [address] Social History Tobacco Use Types Packs/Day Years Used Date Smoking Tobacco: Never Assessed Sex Assigned at Date Recorded Not on file documented as of this encounter Plan of Treatment Not on filedocumented as of this encounter Visit Diagnoses Diagnosis Chest pain, unspecified Essential hypertension, malignant (HRC) Essential hypertension, malignant Unspecified essential hypertension (HRC) Unspecified essential hypertension documented in this encounter Care Teams Telegraph Editor Relationship Specialty Start Date End Date Unassigned, Provider PCP - General 01/12/00 08/29/11 [address] [place] [address] documented as of this encounter
--- OUTSIDE RECORDS SUMMARY | 2022-02-01 12:12 | XMS_ITS | Encounter Summary ---
:1955 Author Organization [facility] Address [address], [place] [address] Care Team Providers Name Role Phone Unassigned, Provider Primary Care Provider Unavailable Reason for Visit Reason Comments Follow-up, NOS VIA INTERFACE Encounter Details Date Type Department Care Team Description 01/24/2000 Office Visit [facility] Marcello Monterroso, MULTIPLE SCLEROSIS; [address] Gabbi LOUIS BIPOLAR AFFECTIVE NOS [place], [place] [address] Social History Tobacco Use Types [...] unspecified documented in this encounter Care Teams Fiber Optic Assembler Relationship Specialty Start Date End Date Unassigned, Provider PCP - General 01/12/00 08/29/[address] [place] [address] documented as of this encounter
--- OUTSIDE RECORDS SUMMARY | 2022-02-01 12:12 | XMS_ITS | Encounter Summary ---
:1955 Author Organization [facility] Address [address] [place] [address] Care Team Providers Name Role Phone Unassigned, Provider Primary Care Provider Unavailable Encounter Details Date Type Department Care Team Description 05/21/2000 Office Visit [facility] Aileen Estes M D ACUTE SINUSITIS NOS Phys[facility] [address] [place] [address] Social History Tobacco Use Types Packs/Day Years Used Date Smoking Tobacco: Never Assessed Sex Assigned at Date Recorded Not on file documented as of this encounter Plan of Treatment Not on filedocumented as of this encounter Visit Diagnoses Diagnosis Acute sinusitis, unspecified documented in this encounter Care Teams Machine Ceramic Coater Relationship Specialty Start Date End Date Unassigned, Provider PCP - General 01/12/00 08/29/11 [address] [place] [address] documented as of this encounter
--- OUTSIDE RECORDS SUMMARY | 2022-02-01 12:12 | XMS_ITS | Encounter Summary ---
:1955 Author Organization [facility] Address [address] [place] [address] Care Team Providers Name Role Phone Unavailable Primary Care Provider Unavailable Reason for Visit Reason Comments NUMBNESS throat BREATHING PROBLEM allergies and MS numbness. Encounter Details Date Type Department Care Team Description 11/26/1999 Telephone Careline Lillian Holcomb NUMBNESS (throat); [address] A, RN BREATHING PROBLEM [place], [place] [address] [facility] (allergies and MS [phone] BUILDING numbness. ) [address] [facility] [address] Social History Tobacco Use Types Packs/Day Years [...] sentences. has seasonal allergies. has been at [facility] in past with a spe cilaist who she sees for the MS.had been hospitalized in past for that there. documented in this encounter Plan of Treatment Not on filedocumented as of this encounter Visit Diagnoses Not on filedocumented in this encounter
--- OUTSIDE RECORDS SUMMARY | 2022-02-01 12:12 | XMS_ITS | Encounter Summary ---
:1955 Author Organization [facility] Address [address] [address] Care Team Providers Name Role Phone Unassigned, Provider Primary Care Provider Unavailable Reason for Visit Reason Comments DIARRHEA VIA INTERFACE Encounter Details Date Type Department Care Team Description 03/13/2000 Office Visit [facility] Blanka ury DIARRHEA NOS [address] [place], [place] [id number] Social History Tobacco Use Types Packs/Day Years Used Date Smoking Tobacco: Never Assessed Sex Assigned at Date Recorded Not on file documented as of this encounter Progress Notes Lexy Medina Yvonne - 03/13/2000 12:00 AM CSTS: Patient comes in for diarrhea. She says that she's had two days of chest pressure, acidy feeling, she was seen by her doctor this morning, placed on Aciphex, while she was waiting to get the prescription filled she started with diarrhea. She's had many episodes since noon; she has a lot of body aches, stomach cramps, muscle spasms, chest tightness. She's not really nauseated, hasn't had any vomiting, though she did vomit yesterday. She hasn't been able to eat or drink because she's too sore. She hasn't taken any Tylenol or Ibuprofen. She's had some chills, no fevers, sweats. She does have a PAST MEDICAL HISTORY: of multiple sclerosis. She started the Aciphex shortly after the diarrhea started. No one else at home is sick. O: On exam, she's alert, no acute distress, blood pressure 120/74, respiratory rate of 16, pulse 88, temperature 96.6. Tympanic membranes are pearly, oropharynx is clear, mucous membranes moist, neck is supple, lungs are clear to auscultation, heart regular rate and rhythm. Abdomen active bowel sounds, soft, non-tender, no hepatosplenomegaly. A: Diarrhea. PLAN: Patient encouraged to drink lots of fluids, take some Tylenol for the cramping and discomfort and FOLLOW UP: with her primary M.D. if this is not resolving. cc: MIXER documented in this encounter Plan of Treatment Not on filedocumented as of this encounter Visit Diagnoses Diagnosis Diarrhea documented in this encounter Care Teams General Supervisor Relationship Specialty Start Date End Date Unassigned, Provider PCP - General 01/12/00 08/29/[address] [place] [address] documented as of this encounter
--- OUTSIDE RECORDS SUMMARY | 2022-02-01 12:13 | XMS_ITS | Encounter Summary ---
:1955 Author Organization [facility] Address [address] [place] [address] Care Team Providers Name Role Phone Unavailable [...] Diagnoses Diagnosis [facility]ine [facility] Routine general medical examination at a health care facility documented in this encounter
--- OUTSIDE RECORDS SUMMARY | 2022-02-01 12:13 | XMS_ITS | Encounter Summary ---
:1955 Author Organization [facility] Address [address] [place] [address] Care Team Providers Name Role Phone Unavailable [...]
--- OUTSIDE RECORDS SUMMARY | 2022-02-01 12:13 | XMS_ITS | Continuity of Care Document ---
:1955 Author Organization [facility] Address [address] [address] [place] [address] Phone Care Team Providers Name Role Phone [...] 1/mx Level Iv-surg Path Gross/micro Offic/outpt E&m [facility] Advance Directives Directive Yes / No Effective Date File Name No Information Encounters Encounter Practice Location Reason(s) Diagnoses Date Provider Provide rs Description For Visit Copied on Encounter [facility] No Information [facility] Nuris L[place] [facility], Hosp [address]. [address] [address], [facility] [place], [place], [place], [place] [id number], [address], [place] tel:+ [place], [place], [phone] , [place]. tel: [phone] [facility] Dysphagia, Juanpablo CLINTON Referring [facility] unspecified [place]. Provider: Diana MOONEY, Endoscopy typeDuodenitis [address] Center without [place] Self. [address], [facility] ia, unspecified [place], [place], [place], [address], [id number], [place], [place], tel:+ [phone] , [place]. tel:+ [phone] Offic/outpt [facility] GI Dysphagia, Matson WHEEL LACER AND TRUER Referr [facility] Symptoms unspecified [place]. Provider: [facility] VINICIO, or typeChronic 2 [address] Concerns diarrhea [place]. [address], ([address] [facility] complaint) [place], [place], [place], [address], [id number], [place], [place], tel:+ [phone] , [place]. tel:+ [phone] [facility] No Information [email or web address] Dig[facility]ive Clinic MD Diana MOONEY, [address] [address], [facility] s, [place], [place], [place] [id number], [address], [place] [facility] tel: [place], [place], [phone] , . tel: [phone] Family History Family Member Type Diagnosis Age [...] Registry Payers Payer name Insurance type Covered republican ID Authorization(s ) No Information Social History Type Description Quantity Date Captured Comments Sex Female Smoking Status No Information Chief Complaint And Reason For Visit No Information Reason For Referral Reason For Referral No Information Plan Of Treatment Date Type Action Status Referral Ordered: ordered follow-up visit after procedure Appointment date/timeframe: after procedure History Of Present Illness Encounter Date Complaint [...]
--- OUTSIDE RECORDS SUMMARY | 2022-02-01 12:13 | XMS_ITS | Encounter Summary ---
:1955 Author Organization [facility] Address [address] [place] [address] Care Team Providers Name Role Phone Unavailable [...]
--- OUTSIDE RECORDS SUMMARY | 2022-02-01 12:13 | XMS_ITS | Encounter Summary ---
:1955 Author Organization [facility] Address [address] [place] [address] Care Team Providers Name Role Phone Unavailable Primary Care Provider Unavailable Encounter Details Date Type Department Care Team Description 09/20/1999 Office Visit [facility] Steve Hargrove M D SPRAIN LUMBAR REGION [facility] [address] [place] [address] Social History Tobacco Use Types Packs/Day Years Used Date Smoking Tobacco: Never Assessed Sex Assigned at Date Recorded Not on file documented as of this encounter Plan of Treatment Not on filedocumented as of this encounter Visit Diagnoses Diagnosis Sprain of lumbar region documented in this encounter
--- OUTSIDE RECORDS SUMMARY | 2022-02-01 12:13 | XMS_ITS | Encounter Summary ---
:1955 Author Organization [facility] Address [address] [place] [address] Care Team Providers Name Role Phone Unavailable [...]
--- OUTSIDE RECORDS SUMMARY | 2022-02-01 12:13 | XMS_ITS | Encounter Summary ---
:1955 Author Organization [facility] Address [address] [place] [address] Care Team Providers Name Role Phone Unavailable [...]
--- OUTSIDE RECORDS SUMMARY | 2022-02-01 12:13 | XMS_ITS | Encounter Summary ---
:1955 Author Organization [facility] Address [address] [place] [address] Care Team Providers Name Role Phone Unavailable [...]
--- OUTSIDE RECORDS SUMMARY | 2022-02-01 12:13 | XMS_ITS | Encounter Summary ---
:1955 Author Organization [facility] Address [address] [place] [address] Care Team Providers Name Role Phone Unavailable [...]
--- OUTSIDE RECORDS SUMMARY | 2022-02-01 12:13 | XMS_ITS | Encounter Summary ---
:1955 Author Organization [facility] Address [address] [place] [address] Care Team Providers Name Role Phone Unassigned, [...] Name Priority Date/Time Associated Diagnosis Comme nts LINE PREP COOK CYTOLOGY Routine 05/11/1999 5:07 PM Results f or this NEWS COMMENTATOR procedure are i n the results section . documented in this encounter Results LINE PREP COOK CYTOLOGY (05/11/1999 5:07 PM NEWS COMMENTATOR) [facility] Method Time Signature Mixing Tank Operator Cytology (NOTE) [facility] Mixing Tank Operator Cytology Report Patient Name: YARY PHILIPPE Taken: 05/11/99 Received: 05/12/99 Reported: 05/15/99 Physician(s): MICHAELA FIELDS ([id number]) Final Cytologic Diagnosis Vaginal, diagnostic: ? Satisfactory for evaluation. ? WITHIN NORMAL LIMITS (WNL) Comment [facility]/05/15/99 Electronically Signed Out By YANET Arguello (ASCP) YANET Arguello (ASCP) Source of Specimen(s) Vaginal, diagnostic Clinical History Date of Last Menstrual Period: ? {Not Given} Menstrual History: Contraceptive History: Cancer History: Infection History: Treatment History: Hysterectomy Other Clinical Conditions: Other Related Clinical Data Specimen Anatomical Collection Method Collection Time Receive d Time (Source) Location / / Volume Laterality 05/11/1999 5:07 PM 0 NEWS COMMENTATOR 12:33 PM NEWS COMMENTATOR Michaela Ramirez MD UNLISTED CODE Performing Organization Address City/State/ZIP Code Phon e Number [address] [address] [place], [place] [phone] documented in this encounter Visit Diagnoses Not on filedocumented in this encounter Care Teams Internal Control Analyst Relationship Specialty Start Date End Date Unassigned, Provider PCP - General 01/12/00 08/29/11 [address] [place] [address] documented as of this encounter
--- OUTSIDE RECORDS SUMMARY | 2022-02-01 12:13 | XMS_ITS | Encounter Summary ---
:1955 Author Organization [facility] Address [address] [place] [address] Care Team Providers Name Role Phone Unavailable Primary Care Provider Unavailable Encounter Details Date Type Department Care Team Description 08/10/1999 Office Visit [facility] SHORT NESS OF BREATH Pulmonary [address] [place] [address] Social History Tobacco Use Types Packs/Day Years Used Date Smoking Tobacco: Never Assessed Sex Assigned at Date Recorded Not on file documented as of this encounter Plan of Treatment Not on filedocumented as of this encounter Visit Diagnoses Diagnosis Shortness of breath documented in this encounter
--- OUTSIDE RECORDS SUMMARY | 2022-02-01 12:13 | XMS_ITS | Encounter Summary ---
:1955 Author [facility] Address [address] [place] [address] Care Team Providers Name Role Phone Unavailable Primary Care Provider Unavailable Reason for Visit Reason Comments INJURY, BACK Encounter Details Date Type Department Care Team Description 09/29/1999 Telephone Careline Farhana You RN INJURY, BACK [address] [place], [place] [address] [place] [address] Social History Tobacco Use Types Packs/Day Years [...] percoset and flexoril. PLAN: consult ana LOUIS armor reconnaissance vehicle crewman-Family Medicine Attending: recommend patient be seen in ER for re-evaluation and possible admission or change in pain medication. - Farhana You Started and completed on SatSep 29, 1999 5:40 PM documented in this encounter Plan of Treatment Not on filedocumented as of this encounter Visit Diagnoses Not on filedocumented in this encounter
--- OUTSIDE RECORDS SUMMARY | 2022-02-01 12:13 | XMS_ITS | Encounter Summary ---
:1955 Author Organization [facility] Address [address] [place] [address] Care Team Providers Name Role Phone Unavailable Primary Care Provider Unavailable Reason for Visit Reason Comments BACK PAIN, LOW Encounter Details Date Type Department Care Team Description 09/19/1999 Telephone Karli Fontaine RN BACK PAIN, LOW [address] [place] [address] [phone] [place] [address] Social History Tobacco Use Types Packs/Day Years Used Date Smoking Tobacco: Never Assessed Sex Assigned at Date Recorded Not on file documented as of this encounter Nursing Notes 09/19/1999 11:59 PM CDT - Karli Nunez Started and completed on SatSep 19, 1999 9:00 PM pt calls back to [facility] to inform that she is going to [facility] [place]. note faxed to [facility] [place] - Komal Sheehan Started on SatSep 19, [...]
--- OUTSIDE RECORDS SUMMARY | 2022-02-01 12:13 | XMS_ITS | Encounter Summary ---
:1955 Author Organization [facility] Address [address] [place] [address] Care Team Providers Name Role Phone Unavailable Primary Care Provider Unavailable Encounter Details Date Type Department Care Team Description 09/13/1999 Office Visit [facility] Zoë Ramirez, MULTIPLE SCLE ROSIS; [facility]icians Clinic MD Betty [address] [place] W/O HYPERTN Social History Tobacco Use [...]
--- OUTSIDE RECORDS SUMMARY | 2022-02-01 12:13 | XMS_ITS | Encounter Summary ---
:1955 Author Organization [facility] Address [address] [place] [address] Care Team Providers Name Role Phone Unavailable [...]
--- OUTSIDE RECORDS SUMMARY | 2022-02-01 12:13 | XMS_ITS | Encounter Summary ---
:1955 Author Organization Counts include 234 beds at the [facility] Address [address] [place] [address] Care Team Providers Name Role Phone Unavailable [...]
--- OUTSIDE RECORDS SUMMARY | 2022-02-01 12:13 | XMS_ITS | Encounter Summary ---
:1955 Author Organization [facility] Address [address] [place] [address] Care Team Providers Name Role Phone Unavailable Primary Care Provider Unavailable Encounter Details Date Type Department Care Team Description 01/25/1999 Office Visit [facility] BIPOLAR AFFECTIVE NOS; [address] [facility]. TRANSIENT [place] [address] Social History Tobacco Use Types Packs/Day Years [...]
--- OUTSIDE RECORDS SUMMARY | 2022-02-01 12:13 | XMS_ITS | Encounter Summary ---
:1955 Author Organization [facility] Address [address] [place] [address] Care Team Providers Name Role Phone Unavailable Primary Care Provider Unavailable Encounter Details Date Type Department Care Team Description 09/28/1999 Office Visit [facility] LOW BACK PAIN(ACUTE)<6 WEEKS ; [address] SPASM OF MUSCLE; [place] [address] RIDDEN ANIMAL ACC-RIDER [phone] Social History Tobacco Use Types Packs/Day Years [...]
--- OUTSIDE RECORDS SUMMARY | 2022-02-01 12:13 | XMS_ITS | Encounter Summary ---
:1955 Author Organization [facility] Address [address] [place] [address] Care Team Providers Name Role Phone Unavailable Primary Care Provider Unavailable Reason for Visit Reason Comments BACK PAIN Encounter Details Date Type Department Care Team Description 10/04/1999 Telephone Careline Fabiola Jacobs RN BACK PAIN; ([place] [address] [facility]) [place], [place] [address] [facility] [phone] [place] [address] Social History Tobacco Use Types Packs/Day Years Used Date Smoking Tobacco: Never Assessed Sex Assigned at Date Recorded Not on file documented as of this encounter Nursing Notes 10/04/1999 11:59 PM CDT Addended by: VERONIQUE JACOBS on: 10/04/1999,9:04 PM Modules accepted: Progress Notes Dr. Lola zhong ret call at 8:35pm and stated she would try to [facility] and then call me back. Dr. [...] Pt w as brought by ambulance to [facility], pt was sent home. There was no [...] and she refused. Adriano De La Garza travel trailer components assembler for [facility] at 8:04pm.. - Veronique Jacobs Started and completed on SatOct 04, 1999 8:15 PM ------- documented in this encounter Plan of Treatment Not on filedocumented as of this encounter Visit Diagnoses Not on filedocumented in this encounter
--- OUTSIDE RECORDS SUMMARY | 2022-02-01 12:13 | XMS_ITS | Encounter Summary ---
:1955 Author Organization [facility] Address [address] [facility] [place] [address] Care Team Providers Name Role Phone Unassigned, Provider Primary Care Provider Unavailable Encounter Details Date Type Department Care Team Description 09/30/1999 Orders Only [facility] Carmita Lazcano, Radiology [address] [facility] [place] [address] Social History Tobacco Use Types Packs/Day Years Used Date Smoking Tobacco: Never Assessed Sex Assigned at Date Recorded Not on file documented as of this encounter Plan of Treatment Not on filedocumented as of this encounter Procedures Procedure Name Priority Date/Time Associated Diagnosis Comme nts MR LUMBAR SPINE Routine 09/30/1999 1:04 PM Result s for this CDT procedure are i n the results section. documented in this encounter Results MR LUMBAR SPINE (09/30/1999 1:04 PM CDT) Anatomical Region Laterality Modality Other Specimen (Source) Anatomical Collection Method Collection Time Re ceived Time Location / / Volume Laterality 09/30/1999 1:04 PM CDT Narrative 10/01/1999 8:09 PM CDT PATIENT DOES SPEAK ENGLISHCLINICAL HX:-YRINARY RETENTION, B LE NUMBNESS,PERESTHESIAS MRI OF LUMBAR SPINE 09/30/99: INDICATIONS: ??Bilateral lower extremity numbness. TECHNIQUE: ??Routine lumbar spine. FINDINGS: ??Lumbar alignment appears yony tomic. ??There is a small Schmorl's node involving the L1 superior endplate. ??Focal hemangioma involves L1 vertebral body. T12-L1 through L2-3: ??Discs are within normal limits. L3-4: ??Mild degenerative disc dehydrati on. ??There is shallow left paracentral disc bulge associated with m ild encroachment upon the caudal aspect of the neural foramen. L4-5 through L5-S1: ??Mild degenerative disc dehydration and shallow annular bulging. ??No significant neural impingement identified. The conus and cauda equina regions are n ormal in appearance. CONCLUSION: 1. ??Shallow left paracentral disc bulge at L3-4 associated with mild foraminal encroachment. 2. ??Mild degenerative disc disease at L 4-5 and L5-S1 levels without significant neural impingement identifie d. Viri Garcia MD RAD MRI/RH documented in this encounter Visit Diagnoses Not on filedocumented in this encounter Care Teams Rater Associate Relationship Specialty Start Date End Date Unassigned, Provider PCP - General 01/12/00 08/29/[address] [place] [address] documented as of this encounter
--- OUTSIDE RECORDS SUMMARY | 2022-02-01 12:13 | XMS_ITS | Encounter Summary ---
:1955 Author Organization [facility] Address [address] [place] [address] Care Team Providers Name Role Phone Unavailable Primary Care Provider Unavailable Encounter Details Date Type Department Care Team Description 09/29/1999 Office Visit [facility] Levi Cruz LOW BACK PAIN (ACUTE)<6 WEEKS; Phys[facility] MD Jason DISORDERS OF SACRUM; [address] [employer]; [place], [place] TRUNK INJ[place] NOS [address] Social History Tobacco Use Types Packs/Day Years [...]
--- OUTSIDE RECORDS SUMMARY | 2022-02-01 12:14 | XMS_ITS | Encounter Summary ---
:1955 Author Organization [facility] Address [address] [place] [address] Care Team Providers Name Role Phone Unavailable Primary Care Provider Unavailable Reason for Visit Reason Comments Med Refill Encounter Details Date Type Department Care Team Description 01/10/2018 Refill [place] Justin Sosa MD [address] [facility] [address] [place], [place] [address] [place], [place] [phone] (Wo rk) Social History Tobacco Use Types [...]
--- OUTSIDE RECORDS SUMMARY | 2022-02-01 12:14 | XMS_ITS | Encounter Summary ---
:1955 Author Organization [facility] Address [address] [place] [address] Care Team Providers Name Role Phone Unavailable Primary Care Provider Unavailable Reason for Visit Reason Comments Follow up Diabetes Encounter Details Date Type Department Care Team Description 01/05/2021 Office Visit Jose Remy, Canceled (Provider) [address] [place] [address] CHRISTINA Owens [phone] [place] [address] [place] [address] (Wo rk) Social History Tobacco Use Types [...] Mass Index 29.35 01/05/2021 10:56 AM CDT documented in this encounter Progress Notes Jose Garrett MD - 01/05/2021 11:00 AM CDT Please disregard encounter. Patient requesting refill of oxycodone. I do not prescribe opioids for chronic pain. She has no interest in weaning off of oxycodone. documented in this encounter Plan of Treatment Not on filedocumented as of this encounter Visit Diagnoses Not on filedocumented in this encounter
--- OUTSIDE RECORDS SUMMARY | 2022-02-01 12:14 | XMS_ITS | Clinical Summary ---
:1955 Author Organization [facility] Address [address] [place] [address] Care Team Providers Name Role Phone Unavailable [...] Health Maintenance Due Date Last Done Comments CT Colonography 1955 Colonoscopy 1955 Colorectal Cancer Screening 1955 FIT-DNA 1955 Glaucoma Screening 67+ Yr 1955 Mammogram 1955 Sigmoidoscopy 1955 iFOBT 1955 COVID-19 Vaccine (#1) 1955 Fall Risk Performed 1972 Zoster Vaccines (2 of 2) 07/17/2016 05/22/2016 Pneumococcal Vaccine: 65+ 09/20/2020 09/21/2019, Years (#3) 08/12/2015, 06/29/2014 HPV Vaccines Aged Out No longer eligib le based on patient's age to complete this to pic
--- OUTSIDE RECORDS SUMMARY | 2022-02-01 12:14 | XMS_ITS | Encounter Summary ---
:1955 Author Organization [facility] Address [address] [place] [address] Care Team Providers Name Role Phone Unavailable Primary Care Provider Unavailable Encounter Details Date Type Department Care Team Description 05/03/2014 - Hospital Encounter [facility] Abnormality of gait 02/08/2015 Services , [place], DO and mobility [address] [place] [address] [place], [place] [phone] [id number] Social History Tobacco Use Types Packs/Day Years [...]
--- OUTSIDE RECORDS SUMMARY | 2022-02-01 12:14 | XMS_ITS | Encounter Summary ---
:1955 Author Organization [facility] Address [address] [place] [address] Care Team Providers Name Role Phone Unavailable Primary Care Provider Unavailable Encounter Details Date Type Department Care Team Description 05/03/2014 - Hospital Encounter [facility] Abnormality of gait 06/08/2014 Services , DO Td [address] [place] [address] [place], [place] [phone] [id number] Social History Tobacco Use Types Packs/Day Years [...]
--- OUTSIDE RECORDS SUMMARY | 2022-02-01 12:14 | XMS_ITS | Encounter Summary ---
:[address] [facility] Address [address] [place] [address] Care Team Providers Name Role Phone Unavailable Primary Care Provider Unavailable Reason for Visit Reason Comments Med Refill Encounter Details Date Type Department Care Team Description 11/07/2018 Refill Justin Love MD [address] [facility] 20 1705 [facility] 20 [place], [place] [address] [place], [place] [phone] (Wo rk) Social History Tobacco Use Types [...]
--- OUTSIDE RECORDS SUMMARY | 2022-02-01 12:14 | XMS_ITS | Encounter Summary ---
:1955 Author Organization [facility] Address [address] [place] [address] Care Team Providers Name Role Phone Unavailable Primary Care Provider Unavailable Encounter Details Date Type Department Care Team Description 06/24/2014 Hospital Encounter [facility] Multi ple sclerosis Radiology , DO Td ([facility]) [address] [facility] [address] [place] [address] S [phone] [place], [place] [phone] Social History Tobacco Use Types Packs/Day Years [...]
--- OUTSIDE RECORDS SUMMARY | 2022-02-01 12:14 | XMS_ITS | Encounter Summary ---
:1955 Author Organization [facility] Address [address] [place] [address] Care Team Providers Name Role Phone Unavailable Primary Care Provider Unavailable Reason for Visit Reason Comments Med Refill Encounter Details Date Type Department Care Team Description 02/05/2018 Refill [place] Fern[place] MD [address] [facility] 20 1705 [facility] 20 [place], [place] [address] [place], [place] [phone] (Wo rk) Social History Tobacco Use Types Packs/Day Years Used Date Never Assessed Sex Assigned at Date Recorded Not on file documented as of this encounter Miscellaneous Notes Telephone Encounter - Iris Mace MA - 02/06/2018 3:50 PM CST Noted. [employer]TEGRATED SYSTEMS MECHANIC Telephone Encounter - Justin Sosa MD - 02/06/2018 3:45 PM CST Yary is no longer a patient at our clinic so this Rx was not filled. [employer] SYSTEM[employer] MECHANIC Telephone Encounter - Hyacinth Bhat MA - 02/06/2018 2:54 PM CST Last refill: 11/05/2017 Patient's last appointment was 11/14/2016 No follow up scheduled at this time. Please advise if patient needs an appointment. Labs are over a year old. [employer] SYSTEM[employer] MECHANIC documented in this encounter Plan of Treatment Not on filedocumented as of this encounter Visit Diagnoses Not on filedocumented in this encounter
--- OUTSIDE RECORDS SUMMARY | 2022-02-01 12:14 | XMS_ITS | Encounter Summary ---
:1955 Author Organization [facility] Address [address] [place] [address] Care Team Providers Name Role Phone Unavailable Primary Care Provider Unavailable Encounter Details Date Type Department Care Team Description 10/28/2012 - Hospital Encounter [facility] Mallipeddi, Acute mireles creatitis; 10/30/2012 Medical/Surgical Vishwanth Type 2 or unspecified type d iabetes mellitus; [address] Bipolar affective disorder ( HCC); [place], [place] Other depressi ve disorder; [address] Multiple sclerosis ([facility]); [phone] Essential hyper tension; Other and unspe cified [...]
== END 2022-02-01 12:08 | disposition home or self-care (01) ==
LOC: KYNREF 12:08
PROVIDERS: PCP Nurse Practitioner Family; Visit Provider Nurse Practitioner Family
DX: R30.0 Dysuria (principal)
CPT/HCPCS: 87086

== ENCOUNTER 2022-02-06 13:18 | Outpatient (CLI) | payer MEDICARE, SELFPAY ==
[2022-02-06 13:27] LABS: Appearance Urine Cloudy (Clear); Bilirubin Urine Negative (Negative); Blood Urine 3+ (Negative); Color Urine Yellow (Yellow); Glucose Urine Trace (Negative); Ketones Urine Negative (Negative); Leukocyte Esterase Urine 1+ (Negative); Nitrite Urine Positive (Negative); Protein Urine 2+ (Negative); Specific Gravity Urine 1.025 (1.000-1.030); Urobilinogen Urine 0.2 (0.2-1.0)
[2022-02-06 21:59] LABS: Bacteria Urine Many; Calcium Oxalate Crystals Urine Few; Squamous Epithelial Cell Urine Few (None-Few); WBC Urine 25-50 (0-5)
== END 2022-02-06 13:19 | disposition home or self-care (01) ==
LOC: KYNREF 13:19
PROVIDERS: PCP Nurse Practitioner Family; Visit Provider Nurse Practitioner Family
DX: R30.0 Dysuria (principal)
CPT/HCPCS: 81003; 81015; 87086; 87186

== ENCOUNTER 2022-02-16 12:27 | Outpatient (CLI) | payer MEDICARE, SELFPAY ==
--- OUTSIDE RECORDS SUMMARY | 2022-02-16 12:30 | XMS_ITS | Encounter Summary ---
:1955 Author Organization [facility] Address [address], [place] [address] Care Team Providers Name Role Phone Lew Grewal MD Primary Care Provider Reason for Visit Reason Comments LAB RESULTS Encounter Details Date Type Department Care Team Description 01/13/2019 Telephone [facility] [address] Kenrick Juarez MD LAB RESULTS Rheumatology [address] [facility] [address] [address] [place] [address] [phone] Social History Tobacco Use Types Packs/Day Years [...] work and hand x-ray to her provider. Anitha Ibarra LPN - 01/13/2019 10:41 AM CDT Patients called and they would like her lab results faxed to: Dr Lew Grewal documented in this encounter Plan of Treatment Not on filedocumented as of this encounter Visit Diagnoses Not on filedocumented in this encounter Care Teams Head Paper Tester Relationship Specialty Start Date End Date Lew Grewal MD PCP - General Family Practice 12/10/[address] [place] [address] [place] [address] documented as of this encounter
--- OUTSIDE RECORDS SUMMARY | 2022-02-16 12:30 | XMS_ITS | Clinical Summary ---
:1955 Author Organization [facility] Address [address], [place] [address] Care Team Providers Name Role Phone Lew [...] for each transition of care or referral. Amlogic Allergies Active Allergy Reactions Severity Noted Date [...] Addre ss Type Group BCBS BCBS AHA [id number] 2018-Present [address] [place] [address] [address] [employer] [place] [address] Yary Prince Personal/Family Self 1955 [address] [facility] 14 [facility] [phone] [place]RISTINA [place] (Work) [phone] Care Teams Early Morning Babysitter Relationship Specialty Start Date End Date Lew Grewal MD PCP - General Family Practice 12/10/[address] [place] [address] [place] [address]
--- OUTSIDE RECORDS SUMMARY | 2022-02-16 12:30 | XMS_ITS | Encounter Summary ---
:1955 Author Organization [facility] Address [address] [address] Care Team Providers Name Role Phone Lew Grewal MD Primary Care Provider Encounter Details Date Type Department Care Team Description 01/13/2019 Notes/Orders [place] [address] [place] [address] [place], [place] [phone] (Wo rk) Social History Tobacco Use Types [...] on filedocumented in this encounter Care Teams Learning Facilitator Relationship Specialty Start Date End Date Lew Grewal MD PCP - General Family Practice 12/10/[address] [place] [address] documented as of this encounter
--- OUTSIDE RECORDS SUMMARY | 2022-02-16 12:31 | XMS_ITS | Encounter Summary ---
:1955 Author [facility] Address [address], [place] [address] Care Team Providers Name Role Phone Unassigned, Provider Primary Care Provider Unavailable Reason for Visit Reason Onset Date Comments MEDICATION, NOS 02/15/2006 Encounter Details Date Type Department Care Team Description 02/15/2006 Telephone [place] [facility] Marcello Monterroso MD MEDICATION, NOS [address] [facility] [place] [place] [address] Social History Tobacco Use Types Packs/Day Years Used Date Smoking Tobacco: Every Day Cigarettes 1 45 Comments: States as of 09-18-05 she is no t buying any more cigarettes Alcohol Use Standard Drinks/Week Comments No 0 (1 standard drink = 0.6 oz pure alcoho l) Sex Assigned at Date Recorded Not on file documented as of this encounter Nursing Notes Delilah Glez, AVA - 02/20/2006 9:44 AM DUPLICATING MACHINE MECHANIC Rosemary was called back, given the information that was available regarding the Copaxone, told that if she wanted further information she would need to sign a MOHINDER and get the records faxed to the facility where the patient is now. Delilah Glez RN ICATING MACHINE MECHANIC Delilah Glez RN - 02/15/2006 11:08 AM [facility] called, message left to call back. Delilah Glez, RN Lexy Erickson - 02/15/2006 10:37 AM [facility] calling with theses questions Regarding Avonix WHAT DOSE WAS PATIENT ON HOW LONG ANY OTHER SAME TYPE MEDS TRIED ICATING MACHINE MECHANIC documented in this encounter Plan of Treatment Not on filedocumented as of this encounter Visit Diagnoses Not on filedocumented in this encounter Care Teams Range Feeder Relationship Specialty Start Date End Date Unassigned, Provider PCP - General 01/12/00 08/29/[address] [place] [address] documented as of this encounter
--- OUTSIDE RECORDS SUMMARY | 2022-02-16 12:31 | XMS_ITS | Encounter Summary ---
:1955 Author Organization [facility] Address [address] [address] Care Team Providers Name Role Phone Lew Grewal MD Primary Care Provider Encounter Details Date Type Department Care Team Description 01/12/2019 Lab Visit [facility] Arthralgia, unspecified join t; [address] S[facility] Events Primary osteoarthritis of shavon th hands; [place] [address] Myalgia [phone] Social History Tobacco Use Types Packs/Day Years [...] - CK Total (01/12/2019 2:27 PM CDT) athologist Signature CK, Total 34 29 - 168 01/12/2019 [facility] U/L 3:17 PM CDT LABORATORY Specimen Anatomical Collection Method / Collection Time Recei rosemarie Time (Source) Location / Volume Laterality Blood Venipuncture / 01/12/2019 2:27 01/12/2019 2:27 Unknown PM CDT PM CDT Kenrick Juarez MD LAB_1 Performing Organization Address City/State/ZIP Code Phon e Number [facility] [address] [place] [address] HCAB - Hepatitis C Virus [place] with Reflex In-House (01/12/2019 2:27 PM CDT) [facility] gist Method Time Signature Hepatitis C Negative Negative 01/12/2019 [facility] Antibody (Non (Non 7:42 PM CDT LABORATORY Reactive) Reactive) Comment: Antibodies to HCV not detected. Does not exclude the possiblity of exposure to HCV. Specimen Anatomical Collection Method / Collection Time Recei rosemarie Time (Source) Location / Volume Laterality Blood Venipuncture / 01/12/2019 2:27 01/12/2019 2:27 Unknown PM CDT PM CDT Kenrick Juarez MD LAB_1 Performing Organization Address [facility]/ZIP Code Phon e Number [facility] [address] [place] [address] RHF - Rheumatoid Factor (01/12/2019 2:27 PM CDT) Analysis Performed At [facility] logist Time Signature Rheumatoid <15 <=30 IU/mL 01/12/2019 [facility] Factor, 7:22 PM CDT LABORATORY Quantitative Specimen Anatomical Collection Method / Collection Time Recei rosemarie Time (Source) Location / Volume Laterality Blood Venipuncture / 01/12/2019 2:27 01/12/2019 2:27 Unknown PM CDT PM CDT Kenrick Juarez MD LAB_1 Performing Organization Address [facility] Phon e Number [facility] [address] [place] [address] CCPIG - Cyclic Citrullinated Peptide AB (01/12/2019 2:27 PM CDT) [facility] Method Time Signature Anti-CCP Antibody 1 [...] Kenrick Juarez MD LAB_1 Performing Organization Address [facility] Phon e Number [facility] C[facility]AL LAB [address] [address] ESR - Sedimentation Rate (01/12/2019 2:27 PM CDT) [facility] gist Method Time Signature Sedimentation Rate 10 0 - 20 01/12/2019 [place] mm/hr 3:50 PM CDT LABORATORY Specimen Anatomical Collection Method / Collection Time Recei rosemarie Time (Source) Location / Volume Laterality Blood Venipuncture / 01/12/2019 2:27 01/12/2019 2:27 Unknown PM CDT PM CDT Kenrick Juarez MD LAB_1 Performing Organization Address City/State/ZIP Code Phon e Number [facility] [address] [place] [address] ELCP - Electrophoresis Stone To LYLE,Serum (01/12/2019 2:27 PM CDT) Component Value Ref Test Analysis Performed At [facility] gist Range Method Time Signature Total Protein 6.7 6.4 - 01/14/2019 [facility] 8.3 12:18 PM CENTRAL LAB g/dL CDT Albumin 3.9 3.4 - 01/14/2019 [facility] 4.8 12:18 PM CENTRAL LAB g/dL CDT Alpha 1 0.3 0.2 - 01/14/2019 [facility] 0.5 12:18 PM CENTRAL LAB g/dL CDT Alpha 2 0.9 0.5 - 01/14/2019 [facility] 1.1 12:18 PM CENTRAL LAB g/dL CDT Beta 0.9 0.6 - 01/14/2019 [facility] 1.1 12:18 PM CENTRAL LAB g/dL CDT Gamma 0.8 0.7 - 01/14/2019 [facility] 1.6 12:18 PM CENTRAL LAB g/dL CDT Monoclonal Roberto 0.0 <=0.0 01/14/2019 [facility] g/dL 12:18 PM CENTRAL LAB CDT Interpretation No monoclonal 01/14/2019 [facility] protein is 12:18 PM CENTRAL LAB detected in the CDT serum. Additional Not indicated. 01/14/2019 [facility] Testing 12:18 PM CENTRAL LAB CDT Signed Out By [facility] 01/14/2019 [facility] 12:18 PM [facility]TRAL LAB Laboratory CDT Specimen Anatomical Collection Method / Collection Time Recei rosemarie Time (Source) Location / Volume Laterality Blood Venipuncture / 01/12/2019 2:27 01/12/2019 2:27 Unknown PM CDT PM CDT Kenrick Juarez MD LAB_1 Performing Organization Address City/State/ZIP Code Phon e Number [facility] [address] [place] [address] CRP - C Reactive Protein (01/12/2019 2:27 PM CDT) P athologist Signature C-Reactive <0.5 0.0 - 0.7 01/12/2019 [facility] Protein mg/dL 3:17 PM CDT LABORATORY Specimen Anatomical Collection Method / Collection Time Recei rosemarie Time (Source) Location / Volume Laterality Blood Venipuncture / 01/12/2019 2:27 01/12/2019 2:27 Unknown PM CDT PM CDT Kenrick Juarez MD LAB_1 Performing Organization Address [facility] Phon e Number [facility] [address] [place], [place] [address] URIC - Uric Acid (01/12/2019 2:27 PM CDT) athologist Signature Uric Acid 5.2 2.6 - 6.0 01/12/2019 [facility] mg/dL 3:17 PM CDT LABORATORY Specimen Anatomical Collection Method / Collection Time Recei rosemarie Time (Source) Location / Volume Laterality Blood Venipuncture / 01/12/2019 2:27 01/12/2019 2:27 Unknown PM CDT PM CDT Kenrick Juarez MD LAB_1 Performing Organization Address City/[facility] e Number [facility] [address] [place] [address] documented in this encounter Visit Diagnoses Diagnosis Arthralgia, unspecified joint Primary osteoarthritis of both hands Myalgia Mylagia and myositis, unspecified documented in this encounter Care Teams Sales Agent Financial Report Service Relationship Specialty Start Date End Date Lew Grewal MD PCP - General Family Practice 12/10/[address] [place] [address] [place] [address] documented as of this encounter
--- OUTSIDE RECORDS SUMMARY | 2022-02-16 12:31 | XMS_ITS | Encounter Summary ---
:1955 Author Organization [facility] Address [address], [place] [address] Care Team Providers Name Role Phone Unassigned, Provider Primary Care Provider Unavailable Encounter Details Date Type Department Care Team Description 09/18/2005 Notes/Orders Specialty [facility] 401 Stacie Bautista, KANE RN, [facility] INFORMATICA DEVELOPER 401 [facility]. [address] [place] [address] [place] [address] [phone] (Wo rk) Social History Tobacco Use Types [...] other than elevated glucose and HgbA1C. Yary Prescottg will be notified via phone of results. Stacie Bautista NP Quick Note by: STACIE BAUTISTA on 09/19/05 at 6:33 AM. Labs from 09-18-05 that are currently back show elevated glucose of 241. Yary Naranjosing will be notified via phone of results [...] BASIC METABOLIC PANEL (09/18/2005 2:29 PM CDT) [facility] gist Method Time Signature BUN 13 10 [...] Bautista APRN, CNP LAB_1 Performing Organization Address [facility] Phon e Number [facility] [phone] [facility] [address] [place] [phone] LYME ANTIBODY (09/18/2005 2:29 PM CDT) athologist Signature Lyme Antibody 0.46 <0.75 OD [facility] Ratio Comment: Negative Specimen Anatomical Collection Method Collection Time Receive d Time (Source) Location / / Volume Laterality 09/18/2005 2:29 PM 6 2:31 CDT PM CDT Stacie Bautista APRN, CNP LAB_1 Performing Organization Address [facility] Phon e Number [facility] [phone] [address] TSH, SENSITIVE (WITH REFLEX) (09/18/2005 2:29 PM CDT) athologist Signature TSH, with 2.46 0.3 - 5.0 [facility] Reflex uIU/ml Specimen Anatomical Collection Method Collection Time Receive d Time (Source) Location / / Volume Laterality 09/18/2005 2:29 PM 6 2:31 CDT PM CDT Stacie Bautista APRN, CNP LAB_1 Performing Organization Address [facility] Phon e Number [facility] [phone] [address] (ABNORMAL) HEMOGRAM/PLTS/DIFF (09/18/2005 2:29 PM CDT) [facility] gist Method Time Signature WBC 10.5 4.0 - 11.0 [facility] k/ul RBC 4.35 4.0 - 5.2 [facility] M/ul Hemoglobin 13.6 12.0 - [facility] 16.0 g/dl HCT 40.8 36.0 - [facility] 46.0 % MCV 93.9 80 - 100 [facility] fl MCH 31.3 26 - 34 pg [facility] MCHC 33.4 32 - 36 % [facility] RDW 13.3 11.5 - [facility] 14.5 % Platelets 354 150 - 450 [facility] k/ul PMN/Band 45 43 - 72 % [facility] Lymph 43 17 - 43 % [facility] [place] 5 4 - 12 % [facility] Eos 6 0 - 8 % [facility] Baso 1 0 - 1 % [facility] Neutrophil 4.7 1.8 - 7.7 [facility] Absolute k/ul Lymph Absolute 4.5 1.0 - 4.8 [facility] k/ul [place] Absolute 0.5 0.1 - 0.7 [facility] k/ul Eos Absolute 0.7 (H) 0.0 - 0.5 [facility] k/ul Baso Absolute 0.1 0.0 - 0.2 [facility] k/ul Specimen Anatomical Collection Method Collection Time Receive d Time (Source) Location / / Volume Laterality 09/18/2005 2:29 PM 6 2:31 CDT PM CDT Stacie Bautista APRN, CNP LAB_1 Performing Organization Address [facility] Phon e Number [employer] [phone] [phone] OSCAR SCREEN (09/18/2005 2:29 PM CDT) P athologist Signature OSCAR Screen Negative NEG [facility] Specimen Anatomical Collection Method Collection Time Receive d Time (Source) Location / / Volume Laterality 09/18/2005 2:29 PM 6 2:31 CDT PM CDT Stacie Bautista APRN, CNP LAB_1 Performing Organization Address [facility] Phon e Number [facility] [phone] [facility] [address] [place] [phone] VIT B12 & FOLATE (09/18/2005 2:29 PM CDT) athologist Signature Vitamin B12 235 211 - 911 [facility] pg/ml Folate 5.3 >3.0 ng/ml [facility] Specimen Anatomical Collection Method Collection Time Receive d Time (Source) Location / / Volume Laterality 09/18/2005 2:29 PM 6 2:31 CDT PM CDT Stacie Bautista APRN, CNP LAB_1 Performing Organization Address [facility] Phon e Number [facility] [employer] [phone] [address] (ABNORMAL) HGB A1C (09/18/2005 2:29 PM CDT) athologist Signature Hgb A1c 7.7 (H) 4.3 - 6.1 % [facility] Specimen Anatomical Collection Method Collection Time Receive d Time (Source) Location / / Volume Laterality 09/18/2005 2:29 PM 6 2:31 CDT PM CDT Stacie Bautista APRN, CNP LAB_1 Performing Organization Address [facility] Phon e Number [employer] [phone] [phone] AST (SGOT) (09/18/2005 2:29 PM CDT) athologist Signature AST (SGOT) 24 <45 U/L [facility] Specimen Anatomical Collection Method Collection Time Receive d Time (Source) Location / / Volume Laterality 09/18/2005 2:29 PM 6 2:31 CDT PM CDT Stacie Bautista APRN, CNP LAB_1 Performing Organization Address [facility] Phon e Number [employer] [phone] [address] ALT (SGPT) (09/18/2005 2:29 PM CDT) athologist Signature ALT (SGPT) 21 0 - 55 U/L [facility] Specimen Anatomical Collection Method Collection Time Receive d Time (Source) Location / / Volume Laterality 09/18/2005 2:29 PM 2:31 CDT PM CDT Stacie Bautista APRN, CNP LAB_1 Performing Organization Address City/State/ZIP Code Phon e Number [facility] [phone] [facility] [address] [address] documented in this encounter Visit Diagnoses Diagnosis Memory loss documented in this encounter Care Teams Recorder Helper Gravity Prospecting Relationship Specialty Start Date End Date Unassigned, Provider PCP - General 01/12/00 08/29/11 [address] [place] [address] documented as of this encounter
--- OUTSIDE RECORDS SUMMARY | 2022-02-16 12:31 | XMS_ITS | Encounter Summary ---
:1955 Author Organization [facility] Address [address] [place] [address] Care Team Providers Name Role Phone Unassigned, Provider Primary Care Provider Unavailable Encounter Details Date Type Department Care Team Description 09/21/2005 Orders Only [facility] Marcello Monterroso MD [address] [place], [place] [address] Social History Tobacco Use Types [...] on filedocumented in this encounter Care Teams Information Clerk Brokerage Relationship Specialty Start Date End Date Unassigned, Provider PCP - General 01/12/00 08/29/[address] [place] [address] documented as of this encounter
--- OUTSIDE RECORDS SUMMARY | 2022-02-16 12:31 | XMS_ITS | Encounter Summary ---
:1955 Author Organization [facility] Address [address], [place] [address] Care Team Providers Name Role Phone Unassigned, Provider Primary Care Provider Unavailable Reason for Referral Specialty Diagnoses / Procedures Referred By Contact Refer red To Contact Marcello Monterroso MD [address] [place] [address] Referral ID Status Reason Start Date Expiration Date Visits Requ ested Visits Authorized Scheduling Instructions Your provider [facility] You may call [phone] to schedule your a ppointment. If you prefer, a home health scheduler will contact you within the next 3 business d ays to assist you in setting up this appointment. Reason for Visit Reason Comments MULTIPLE SCLEROSIS swallowing difficulty Encounter Details Date Type Department Care Team Description 10/19/2010 Office Visit [facility] Marcello Monterroso, Multiple sclerosis (Primary Dx); [address] [facility] Abnormality of gait; [place], [place] [address] Other specified visual distu rbances [phone] Social History Tobacco Use Types Packs/Day Years [...] spine MRI with and without contrast at [facility] today Refer to Eye clinic for exam Have your nurse fax us your med list - FAX number is [phone] Return 2 months; bring all your medicines [...] migraine headaches. No h/o significant head trauma, ENGINEERING WRITER infections, seizures, LOC, prior LP, CVA/TIA symptoms. [...] gist Range Method Time Signature NMO-IgG <1.6 [facility] Reference Range: <1.6 U/mL NMO-IgG (NOTE) [facility] NMO Evaluation w/Reflex, S ?? Interpretive Comments ? No informative autoantibodies were detected in this ? evaluation. ??A negative result does not exclude a di agnosis ? of a neuromyelitis optica spectrum of disorders. For research use only Test Performed by: [facility] [employer] [address] [place] [address] Specimen Anatomical Collection Method Collection Time Receive d Time (Source) Location / / Volume Laterality 10/19/2010 2:58 PM 1 3:04 CDT PM CDT Marcello Monterrsoo MD LAB_1 Performing Organization Address [facility] Phon e Number [facility] [phone] [facility] [address] [place] [address] (ABNORMAL) VIT B12 & FOLATE (10/19/2010 2:58 PM CDT) athologist Signature Vitamin B12 214 (L) 239 - 931 [facility] pg/ml Folate >20.0 >3.0 ng/ml [facility] Specimen Anatomical Collection Method Collection Time Receive d Time (Source) Location / / Volume Laterality 10/19/2010 2:58 PM 1 3:04 CDT PM CDT Marcello Monterroso MD LAB_1 Performing Organization Address [facility] Phon e Number [facility] [phone] [facility] [address] [place] [phone] OSCAR SCREEN (10/19/2010 2:58 PM CDT) athologist Signature OSCAR Screen Negative NEG [facility] Specimen Anatomical Collection Method Collection Time Receive d Time (Source) Location / / Volume Laterality 10/19/2010 2:58 PM 1 3:04 CDT PM CDT Marcello Monterroso MD LAB_1 Performing Organization Address [facility] Phon e Number [facility] [employer] [phone] [phone] (ABNORMAL) HGB A1C (10/19/2010 2:58 PM CDT) [...] Marcello Monterroso MD LAB_1 Performing Organization Address [facility] Phon e Number [facility] [employer] [phone] [phone] ESR (10/19/2010 2:58 PM CDT) athologist [facility] ESR 2 0 - 20 [facility] mm/hr Specimen Anatomical Collection Method Collection Time Receive d Time (Source) Location / / Volume Laterality 10/19/2010 2:58 PM 1 3:04 CDT PM CDT Marcello Monterroso MD LAB_1 Performing Organization Address [facility] Phon e Number [facility] [employer] [phone] [address] (ABNORMAL) HEMOGRAM/PLTS (10/19/2010 2:58 PM CDT) athologist Signature WBC 12.5 (H) 4.0 - 11.0 [facility] k/ul RBC 4.53 4.0 - 5.2 [facility] M/ul Hemoglobin 14.4 12.0 - [facility] 16.0 g/dl HCT 41.9 36.0 - [facility] 46.0 % MCV 92.4 80 - 100 [facility] mt MCH 31.8 26 - 34 pg [facility] MCHC 34.5 32 - 36 [facility] g/dl RDW 13.3 11.5 - [facility] 14.5 % Platelets 418 150 - 450 [facility] k/ul Specimen Anatomical Collection Method Collection Time Receive d Time (Source) Location / / Volume Laterality 10/19/2010 2:58 PM 1 3:04 CDT PM CDT Marcello Monterroso MD LAB_1 Performing Organization Address City/[facility] Phon e Number [facility] [employer] [phone] [facility] [address] [place] [address] BASIC METABOLIC PANEL (10/19/2010 2:58 PM [...] Marcello Monterroso MD LAB_1 Performing Organization Address [facility] Phon e Number [facility] [employer] [phone] [address] AST (SGOT) (10/19/2010 2:58 PM CDT) P athologist Signature AST (SGOT) 38 0 - 55 U/L [facility] Specimen Anatomical Collection Method Collection Time Receive d Time (Source) Location / / Volume Laterality 10/19/2010 2:58 PM 1 3:04 CDT PM CDT Marcello Monterroso MD LAB_1 Performing Organization Address [facility] Phon e Number [facility] [phone] [facility] [address] [place] [phone] ALT (SGPT) (10/19/2010 2:58 PM CDT) athologist Signature ALT (SGPT) 43 0 - 69 U/L [facility] Specimen Anatomical Collection Method Collection Time Receive d Time (Source) Location / / Volume Laterality 10/19/2010 2:58 PM 1 3:04 CDT PM CDT Marcello Monterroso MD LAB_1 Performing Organization Address [facility] Phon e Number [facility] [employer] [phone] [phone] documented in this encounter Visit Diagnoses Diagnosis Multiple sclerosis ([facility]) - Primary Multiple sclerosis Abnormality of gait Other specified visual disturbances documented in this encounter Care Teams Cooperative Education Director Relationship Specialty Start Date End Date Unassigned, Provider PCP - General 01/12/00 08/29/[address] [place] [address] documented as of this encounter
--- OUTSIDE RECORDS SUMMARY | 2022-02-16 12:31 | XMS_ITS | Encounter Summary ---
:1955 Author Organization [facility] Address [address] [address] Care Team Providers Name Role Phone Unassigned, Provider Primary Care Provider Unavailable Reason for Visit Reason Onset Date Comments APPOINTMENT REQUEST 09/18/2005 Encounter Details Date Type Department Care Team Description 09/18/2005 Telephone [facility] OINTMENT REQUEST Psychiatry Social History [...] with the appointment information. Beck Khanna RN FACULTY CRIMINAL JUSTICE SOFTWARE PROGRAMMER >> CHRISTINE Fierro Sep 18, 2005 2:23 PM [facility] CALLED, FOR THE RESOURCE NURSE TO MAKE A APPT FOR THIS PATIENT MONCHO PHILIPPE IN 2 WEEKS. VIVIANE Sebastian 2 09/18/2005 2:23 PM documented in this encounter Plan of Treatment Not on filedocumented as of this encounter Visit Diagnoses Not on filedocumented in this encounter Care Teams Supervisor Mill Relationship Specialty Start Date End Date Unassigned, Provider PCP - General 01/12/00 08/29/11 [address] [place] [address] documented as of this encounter
--- OUTSIDE RECORDS SUMMARY | 2022-02-16 12:31 | XMS_ITS | Encounter Summary ---
:1955 Author Organization [facility] Address [address] [address] Care Team Providers Name Role Phone Unassigned, Provider Primary Care Provider Unavailable Encounter Details Date Type Department Care Team Description 11/10/2010 Correspondence External to External, Provid er [place] [address] Social History Tobacco Use Types Packs/Day Years [...] filedocumented in this encounter Care Teams Senior Net Software Developer Relationship Specialty Start Date End Date Unassigned, Provider PCP - General 01/12/00 08/29/[address] [place] [address] documented as of this encounter
--- OUTSIDE RECORDS SUMMARY | 2022-02-16 12:31 | XMS_ITS | Encounter Summary ---
:1955 Author Organization [facility] Address [address] [address] Care Team Providers Name Role Phone Unassigned, Provider Primary Care Provider Unavailable Reason for Visit Reason Onset Date Comments LETTER NEEDED 08/19/2007 Encounter Details Date Type Department Care Team Description 08/19/2007 Telephone [facility] Marcello Monterroso MD LETTER NEEDED [address] [place], [place] [address] Social History Tobacco Use Types Packs/Day Years [...] fax number for Dr.Karl Sosa (primary) is [phone]- in order for send letter on gastric bypass (stated discussed during visit today, 08/18) documented in this encounter Plan of Treatment Not on filedocumented as of this encounter Visit Diagnoses Not on filedocumented in this encounter Care Teams Operating Room Specialist Relationship Specialty Start Date End Date Unassigned, Provider PCP - General 01/12/00 08/29/[address] [place] [address] documented as of this encounter
--- OUTSIDE RECORDS SUMMARY | 2022-02-16 12:31 | XMS_ITS | Encounter Summary ---
:1955 Author Organization [email or web address] Address [address] [place] [address] Care Team Providers Name Role Phone Unassigned, Provider Primary Care Provider Unavailable Encounter Details Date Type Department Care Team Description 09/20/2005 Office Visit [facility] Luis Gonzalez MD BIPOLAR - MOST RECENT Clinic Psychiatry [address] [facility] [place] [address] (Wo rk) Social History Tobacco [...] by Dr. Marcello Monterroso at, I believe, [place] and/or [facility]. She also has seen Stacie [...] she's been psychotic. She remembers being at [facility] maybe 20-plus years ago. She does remember [...] [facility] She could not remember any of the providers that she saw there. She reported though that she does think that she had a neuropsychiatric evaluation at the [facility]. She did not know it by [...] suit is not her history giving. ASSESSMENT: [place] I: Historical is listed as bipolar disorder. [...] secondary to her progressive multiple sclerosis problems. [place] II: None at this time are deferred. [place] III: Is multiple sclerosis, want to rule out any mild cognitive impairment secondary to her treatment, but it simply might be early cognitive decline. [place] IV: Patient mostly complains of [place] III difficulties, fatigue, difficulty taking care of herself. [place] V: GAF is around 50. PLAN: Patient [...] to this plan. P cc: Stacie Bautista RN,MANAGER PROJECT MANAGEMENT Marcello Monterroso MD documented in this encounter Plan of Treatment Not on filedocumented as of this encounter Visit Diagnoses Diagnosis Bipolar I disorder, most recent episode (or current) unspecified ([facility]) Bipolar I disorder, most recent episode (or current) unspecified documented in this encounter Care Teams African Studies Professor Relationship Specialty Start Date End Date Unassigned, Provider PCP - General 01/12/00 08/29/[address] [place] [address] documented as of this encounter
--- OUTSIDE RECORDS SUMMARY | 2022-02-16 12:31 | XMS_ITS | Encounter Summary ---
:1955 Author Organization [email or web address] Address [address] [place] [address] Care Team Providers Name Role Phone No Primary/Referring, Phy Primary Care Provider Unavailable Reason for Visit Reason Comments MULTIPLE SCLEROSIS Encounter Details Date Type Department Care Team Description 09/06/2011 Office Visit [facility] Marcello Monterroso, Myalgia and myositis, unspec ified (Primary Dx); [address] [place] Abnormality of gait; [place], [place] [address] BIPOLAR DISORDER NOS [phone] Social History Tobacco Use Types Packs/Day Years [...] documented in this encounter Patient Instructions Patient InstructionsSMarcello hollins MD - 09/06/2011 2:52 PM CDT For [...] hospitalization in [facility]. Marcello Monterroso MD documented in this encounter Progress Notes Marcello Monterroso MD - 09/06/2011 3:00 PM CDT 56-year-old woman with long-standing multiple sclerosis is in today because of recent symptoms. Lastweek her primary physician called from a clinic in [place] because Yary was feeling weak and unsteady. [...] unspecified documented in this encounter Care Teams Dining Room Supervisor Relationship Specialty Start Date End Date No Primary/Referring, y PCP - General 08/30/11 documented as of this encounter
--- OUTSIDE RECORDS SUMMARY | 2022-02-16 12:31 | XMS_ITS | Encounter Summary ---
:1955 Author [facility] Address [address] [place] [address] Care Team Providers Name Role Phone Lew Grewal MD Primary Care Provider Reason for Referral Procedure/Equipment (Routine) - Incomplete Specialty Diagnoses / Procedures Referred By Contact Refer red To Contact Diagnoses Arthralgia, unspecified joint Primary osteoarthritis of both hands Kenrick Juarez MD Procedures XR Hand(s) Arthritis [address] [place], [place] [address] Referral ID Status Reason Start Date Expiration Date Visits V isits Requested Authorized [id number] Incomplete 01/12/2019 04/12/2020 1 1 Reason for Visit Reason Comments Consult, New Patient Encounter Details Date Type Department Care Team Description 01/12/2019 Initial Consult Kenrick Jj MD Arthralgia, unspecified joint (Primary D x); Rheumatology [facility] Primary osteoarthritis of shavon th hands; [address] [facility] [place] [address] [phone] Social History Tobacco Use Types Packs/Day Years [...] Note Referral: Td Roldan DO [address] [place] [address] Chief Complaint Patient presents with ??? Consult, [...] lasting 15-20 minutes. Complains of decreased hand pulp piler and difficulty opening objects. Complains of a [...] for today's visit was reviewed, sent to SDOC, and is as noted above and/or notable [...] the right side. Complains of decreased hand pulp piler, difficulty opening objects. Complains of a muscle [...] you have any questions. Kenrick Juarez. Rheumatology [facility] 01/12/2019 This note consists of symbols derived from keyboarding, and voice recognition software. As a result,wrong word or '[id number]-n-pbcl' substitutions may have occurred due to the [...] CK, Total 34 29 - 168 01/12/2019 [facility] U/L 3:17 PM CDT LABORATORY Specimen Anatomical Collection Method / Collection Time Recei rosemarie Time (Source) Location / Volume Laterality Blood Venipuncture / 01/12/2019 2:27 01/12/2019 2:27 Unknown PM CDT PM CDT Kenrick Juarez MD LAB_1 Performing Organization Address City/State/ZIP Code Phon e Number [facility] [address] [place] [address] HCAB - Hepatitis C Virus [place] with Reflex In-House (01/12/2019 2:27 PM CDT) [facility] Method Time Signature Hepatitis C Negative Negative 01/12/2019 [facility] Antibody (Non (Non 7:42 PM CDT LABORATORY Reactive) Reactive) Comment: Antibodies to HCV not detected. Does not exclude the possiblity of exposure to HCV. Specimen Anatomical Collection Method / Collection Time Recei rosemarie Time (Source) Location / Volume Laterality Blood Venipuncture / 01/12/2019 2:27 01/12/2019 2:27 Unknown PM CDT PM CDT Kenrick Juarez MD LAB_1 Performing Organization Address [facility] Phon e Number [facility] [address] [place] [address] RHF - Rheumatoid Factor (01/12/2019 2:27 PM CDT) [facility] Time Signature Rheumatoid <15 <=30 IU/mL 01/12/2019 [facility] Factor, 7:22 PM CDT LABORATORY Quantitative Specimen Anatomical Collection Method / Collection Time Recei rosemarie Time (Source) Location / Volume Laterality Blood Venipuncture / 01/12/2019 2:27 01/12/2019 2:27 Unknown PM CDT PM CDT Kenrick Juarez MD LAB_1 Performing Organization Address City/[facility] Phon e Number [facility] [address] [place] [address] CCPIG - Cyclic Citrullinated Peptide AB (01/12/2019 2:27 PM CDT) [facility] Method Time Signature Anti-CCP Antibody 1 <7 U/mL 01/13/2019 [facility] 12:42 PM [facility]AL LAB CDT Anti-CCP Antibody Negative Negative 01/13/2019 [facility] Interpretation 12:42 PM CENTRAL LAB CDT Specimen Anatomical Collection Method / Collection Time Recei rosemarie Time (Source) Location / Volume Laterality Blood Venipuncture / 01/12/2019 2:27 01/12/2019 2:27 Unknown PM CDT PM CDT Kenrick Juarez MD LAB_1 Performing Organization Address City/[facility] Phon e Number [facility] [address] [place] [address] ESR - Sedimentation Rate (01/12/2019 2:27 PM CDT) [facility] Method Time Signature Sedimentation Rate 10 0 - 20 01/12/2019 [facility] mm/hr 3:50 PM CDT LABORATORY Specimen Anatomical Collection Method / Collection Time Recei rosemarie Time (Source) Location / Volume Laterality Blood Venipuncture / 01/12/2019 2:27 01/12/2019 2:27 Unknown PM CDT PM CDT Kenrick Juarez MD LAB_1 Performing Organization Address City/State/ZIP Code Phon e Number [facility] [address] [place] [address] ELCP - Electrophoresis [place] To LYLE,Serum (01/12/2019 2:27 PM CDT) Component Value Ref Test Analysis Performed At [facility] Range Method Time Signature Total Protein 6.7 [...] CENTRAL LAB CDT Interpretation No monoclonal 01/14/2019 [facility] protein is 12:18 PM CENTRAL LAB detected in the CDT serum. Additional Not indicated. 01/14/2019 [facility] Testing 12:18 PM [facility]TRAL LAB CDT Signed Out By [facility] 01/14/2019 [facility] 12:18 PM CENTRAL LAB Laboratory CDT Specimen Anatomical Collection Method / Collection Time Recei rosemarie Time (Source) Location / Volume Laterality Blood Venipuncture / 01/12/2019 2:27 01/12/2019 2:27 Unknown PM CDT PM CDT Kenrick Juarez MD LAB_1 Performing Organization Address City/[facility]/ZIP Code Phon e Number [facility] [address] [address] CRP - C Reactive Protein (01/12/2019 2:27 PM CDT) P athologist Signature C-Reactive <0.5 0.0 - 0.7 01/12/2019 [facility] Protein mg/dL 3:17 PM CDT LABORATORY Specimen Anatomical Collection Method / Collection Time Recei rosemarie Time (Source) Location / Volume Laterality Blood Venipuncture / 01/12/2019 2:27 01/12/2019 2:27 Unknown PM CDT PM CDT Kenrick Juarez MD LAB_1 Performing Organization Address City/[facility]/ZIP Code Phon e Number [facility] [address] [place] [address] URIC - Uric Acid (01/12/2019 2:27 PM CDT) P athologist Signature Uric Acid 5.2 2.6 - 6.0 01/12/2019 [facility] mg/dL 3:17 PM CDT LABORATORY Specimen Anatomical Collection Method / Collection Time Recei rosemarie Time (Source) Location / Volume Laterality Blood Venipuncture / 01/12/2019 2:27 01/12/2019 2:27 Unknown PM CDT PM CDT Kenrick Juarez MD LAB_1 Performing Organization Address City/[facility]/ZIP Code Phon e Number [facility] [address] [place] [address] XR Hand(s) Arthritis (01/12/2019 2:19 PM [...] spurring involving multiple joints in both hands. Knerick Juarez MD RAD GD documented in this encounter Visit Diagnoses Diagnosis Arthralgia, unspecified joint - Primary Primary osteoarthritis of both hands Myalgia Mylagia and myositis, unspecified Arthralgia, unspecified joint Primary osteoarthritis of both hands documented in this encounter Care Teams Director Of Product Management Relationship Specialty Start Date End Date Lew Grewal MD PCP - General Family Practice 12/10/[address] [place], [place] [address] [address] documented as of this encounter
--- OUTSIDE RECORDS SUMMARY | 2022-02-16 12:31 | XMS_ITS | Encounter Summary ---
:1955 Author Organization [facility] Address [address], [place] [address] Care Team Providers Name Role Phone Unassigned, Provider Primary Care Provider Unavailable Encounter Details Date Type Department Care Team Description 09/21/2005 Orders Only Health Specialty L[facility] ter Radiology Arrived [address] [facility] [place] [address] Social History Tobacco Use Types [...] filedocumented in this encounter Care Teams Mixer Lever Operator Relationship Specialty Start Date End Date Unassigned, Provider PCP - General 01/12/00 08/29/[address] [place] [address] documented as of this encounter
--- OUTSIDE RECORDS SUMMARY | 2022-02-16 12:31 | XMS_ITS | Encounter Summary ---
:1955 Author Organization [facility] Address [address] [place] [address] Care Team Providers Name Role Phone Unassigned, Provider Primary Care Provider Unavailable Encounter Details Date Type Department Care Team Description 10/04/2005 Correspondence External to Marcello Monterroso MD [facility] [employer] Social History Tobacco Use Types Packs/Day Years [...] on filedocumented in this encounter Care Teams Patient Observer Relationship Specialty Start Date End Date Unassigned, Provider PCP - General 01/12/00 08/29/[address] [place] [address] documented as of this encounter
--- OUTSIDE RECORDS SUMMARY | 2022-02-16 12:31 | XMS_ITS | Encounter Summary ---
:1955 Author Organization [facility] Address [address] [place] [address] Care Team Providers Name Role Phone Unassigned, Provider Primary Care Provider Unavailable Encounter Details Date Type Department Care Team Description 10/19/2010 Orders Only [facility] Multiple sclerosis; [address] Abnormality of gait; [place], [place] [address] Other specified visual distu rbances [phone] Social History Tobacco Use Types Packs/Day Years [...] Component Value Ref Test Analysis Performed At [facility] Range Method Time Signature NMO-IgG <1.6 [facility] Reference Range: <1.6 U/mL NMO-IgG (NOTE) [facility] NMO Evaluation w/Reflex, S ?? Interpretive Comments ? No informative autoantibodies were detected in this ? evaluation. ??A negative result does not exclude a di agnosis ? of a neuromyelitis optica spectrum of disorders. For research use only Test Performed by: [facility] [employer] [address], [place] [address] Specimen Anatomical Collection Method Collection Time Receive d Time (Source) Location / / Volume Laterality 10/19/2010 2:58 PM 1 3:04 CDT PM CDT Marcello Monterroso MD LAB_1 Performing Organization Address [facility]/ZIP Code Phon e Number [facility] [phone] [address] (ABNORMAL) VIT B12 & FOLATE (10/19/2010 2:58 PM CDT) athologist [facility] Vitamin B12 214 (L) 239 - 931 [facility] pg/ml Folate >20.0 >3.0 ng/ml [facility] Specimen Anatomical Collection Method Collection Time Receive d Time (Source) Location / / Volume Laterality 10/19/2010 2:58 PM 1 3:04 CDT PM CDT Marcello Monterroso MD LAB_1 Performing Organization Address [facility] Phon e Number [facility] [phone] [address] OSCAR SCREEN (10/19/2010 2:58 PM CDT) athologist [facility] OSCAR Screen Negative NEG [facility] Specimen Anatomical Collection Method Collection Time Receive d Time (Source) Location / / Volume Laterality 10/19/2010 2:58 PM 1 3:04 CDT PM CDT Marcello Monterroso MD LAB_1 Performing Organization Address [facility] Phon e Number [facility] [phone] [address] (ABNORMAL) HGB A1C (10/19/2010 2:58 PM CDT) athologist [facility] Hgb A1c 8.9 (H) 4.3 - 6.1 % [facility] Comment: The usual A1C goal for people with diabe yanna, age 18-75, is < 7.0%. Physicians may recommend a higher or lo wer goal for specific individuals. Specimen Anatomical Collection Method Collection Time Receive d Time (Source) Location / / Volume Laterality 10/19/2010 2:58 PM 1 3:04 CDT PM CDT Marcello Monterroso MD LAB_1 Performing Organization Address [facility] Code Phon e Number [facility] [phone] [facility] [address] [place] [phone] ESR (10/19/2010 2:58 PM CDT) athologist Signature ESR 2 0 - 20 [facility] mm/hr Specimen Anatomical Collection Method Collection Time Receive d Time (Source) Location / / Volume Laterality 10/19/2010 2:58 PM 1 3:04 CDT PM CDT Marcello Monterroso MD LAB_1 Performing Organization Address [facility] Phon e Number [employer] [phone] [facility] [address] [place] [address] (ABNORMAL) HEMOGRAM/PLTS (10/19/2010 2:58 PM CDT) P athologist Signature WBC 12.5 (H) 4.0 - 11.0 [facility] k/ul RBC 4.53 4.0 - 5.2 [facility] M/ul Hemoglobin 14.4 12.0 - [facility] 16.0 g/dl HCT 41.9 36.0 - [facility] 46.0 % MCV 92.4 80 - 100 [facility] fl MCH 31.8 26 - 34 pg [facility] MCHC 34.5 32 - 36 [facility] g/dl RDW 13.3 11.5 - [facility] 14.5 % Platelets 418 150 - 450 [facility] k/ul Specimen Anatomical Collection Method Collection Time Receive d Time (Source) Location / / Volume Laterality 10/19/2010 2:58 PM 1 3:04 CDT PM CDT Marcello Monterroso MD LAB_1 Performing Organization Address [facility] Phon e Number [facility] [phone] [facility] [address] [place] [phone] BASIC METABOLIC PANEL (10/19/2010 2:58 PM CDT) [...] ml/min/1.7 3m2 Calcium 9.8 8.4 - 10.2 [facility] mg/dl Anion Gap 12 7 - 16 [facility] (calc.) mmol/L Specimen Anatomical Collection Method Collection Time Receive d Time (Source) Location / / Volume Laterality 10/19/2010 2:58 PM 1 3:04 CDT PM CDT Marcello Monterroso MD LAB_1 Performing Organization Address City/[facility] Phon e Number [facility] [phone] [phone] AST (SGOT) (10/19/2010 2:58 PM CDT) athologist Signature AST (SGOT) 38 0 - 55 U/L [facility] Specimen Anatomical Collection Method Collection Time Receive d Time (Source) Location / / Volume Laterality 10/19/2010 2:58 PM 1 3:04 CDT PM CDT Marcello Monterroso MD LAB_1 Performing Organization Address [facility] Phon e Number [facility] [phone] [phone] ALT (SGPT) (10/19/2010 2:58 PM CDT) athologist Signature ALT (SGPT) 43 0 - 69 U/L [facility] Specimen Anatomical Collection Method Collection Time Receive d Time (Source) Location / / Volume Laterality 10/19/2010 2:58 PM 1 3:04 CDT PM CDT Marcello Monterroso MD LAB_1 Performing Organization Address City/State/ZIP Code Phon e Number [facility] [phone] [facility] [address] [address] documented in this encounter Visit Diagnoses Diagnosis Multiple sclerosis (HRC) Multiple sclerosis Abnormality of gait Other specified visual disturbances documented in this encounter Care Teams Hand Edge Bander Relationship Specialty Start Date End Date Unassigned, Provider PCP - General 01/12/00 08/29/[address] [place] [address] documented as of this encounter
--- OUTSIDE RECORDS SUMMARY | 2022-02-16 12:31 | XMS_ITS | Encounter Summary ---
:1955 Author Organization [facility] Address [address] [place] [address] Care Team Providers Name Role Phone Lew Grewal MD Primary Care Provider Reason for Visit Procedure/Equipment (Routine) - Incomplete Specialty Diagnoses / Procedures Referred By Contact Refer red To Contact Diagnoses Arthralgia, unspecified joint Primary osteoarthritis of both hands Kenrick Juarez MD Procedures XR Hand(s) Arthritis [address] [place], [place] [address] Referral ID Status Reason Start Date Expiration Date Visits V isits Requested Authorized [id number] Incomplete 01/12/2019 04/12/2020 1 1 Encounter Details Date Type Department Care Team Description 01/12/2019 [facility] [place] Kenrick Juarez MD Arthralgia, unspecified joint; Procedure Radiology [address] Primary osteoarthritis of shavon th hands [address] [facility] [address] [phone] Social History Tobacco Use Types Packs/Day Years [...] hands documented in this encounter Care Teams Special Assemblies Supervisor Relationship Specialty Start Date End Date Lew Grewal MD PCP - General Family Practice 12/10/[address] [place] [address] documented as of this encounter
--- OUTSIDE RECORDS SUMMARY | 2022-02-16 12:31 | XMS_ITS | Encounter Summary ---
:1955 Author Organization [facility] Address [address], [place] [address] Care Team Providers Name Role Phone Unassigned, Provider Primary Care Provider Unavailable Encounter Details Date Type Department Care Team Description 10/11/2005 Orders Only Specialty Center 401 Marcello Monterroso MD Neurology Clinic [address] [place] [address]. [place] [address] Social History Tobacco Use Types Packs/Day Years Used Date Smoking Tobacco: Every Day Cigarettes 1 45 Comments: States as of 09-18-05 she is no t buying any more cigarettes Alcohol Use Standard Drinks/Week Comments No 0 (1 standard drink = 0.6 oz pure alcoho l) Sex Assigned at Date Recorded Not on file documented as of this encounter Procedure Notes Nahid Arredondo - 10/11/2005 12:00 AM CDTAssociated Order(s): EEG [...] (10/11/2005) Anatomical Region Laterality Modality Other Transcriptions Nahid Arredondo - 10/11/2005 12:00 AM CDT EEG REPORT [...] on filedocumented in this encounter Care Teams Industrial Chemistry Teacher Relationship Specialty Start Date End Date Unassigned, Provider PCP - General 01/12/00 08/29/[address] [place] [address] documented as of this encounter
--- OUTSIDE RECORDS SUMMARY | 2022-02-16 12:31 | XMS_ITS | Encounter Summary ---
:1955 Author Organization [facility] Address [address], [place] [address] Care Team Providers Name Role Phone Unassigned, Provider Primary Care Provider Unavailable Reason for Visit Reason Onset Date Comments BREATHING PROBLEM 01/19/2008 Encounter Details Date Type Department Care Team Description 01/19/2008 Telephone [facility] Marcello Monterroso MD BREATHING PROBLEM [address] [place], [place] [address] Social History Tobacco Use Types [...] familymember is able to drive [facility]. Estefani Turcios RN Myra [place] - 01/19/2008 12:03 PM CDT Pt calling. Stated feels throat is closing in on her. documented in this encounter Plan of Treatment Not on filedocumented as of this encounter Visit Diagnoses Not on filedocumented in this encounter Care Teams Activities Therapist Relationship Specialty Start Date End Date Unassigned, Provider PCP - General 01/12/00 08/29/[address] [place] [address] documented as of this encounter
--- OUTSIDE RECORDS SUMMARY | 2022-02-16 12:31 | XMS_ITS | Encounter Summary ---
:1955 Author Organization [facility] Address [address], [place] [address] Care Team Providers Name Role Phone Unassigned, Provider Primary Care Provider Unavailable Reason for Referral Specialty Diagnoses / Procedures Referred By Contact Refer red To Contact Marcello Monterroso MD [address] [place] [address] Referral ID Status Reason Start Date Expiration Date Visits Requ ested Visits Authorized Scheduling Instructions If an appointment with [employer] r, Nose and Throat was advised and you have not been contacted to schedule that appo intment within 3 business days, please call [phone] for assistance. Reason for Visit Reason Comments CHOKING has been going on for 3 valdez hs Encounter Details Date Type Department Care Team Description 01/28/2008 Office Visit [facility] Marcello Monterroso, Dysphagia (Primary Dx) [facility] [place], [place] [address] Social History Tobacco Use Types [...] unspecified documented in this encounter Care Teams Compensation Expert Relationship Specialty Start Date End Date Unassigned, Provider PCP - General 01/12/00 08/29/[address] [place] [address] documented as of this encounter
--- OUTSIDE RECORDS SUMMARY | 2022-02-16 12:31 | XMS_ITS | Encounter Summary ---
:1955 Author Organization [facility] Address [address] [address] Care Team Providers Name Role Phone Unassigned, Provider Primary Care Provider Unavailable Reason for Visit Reason Comments FOLLOW-UP, TEST RESULTS MRI Encounter Details Date Type Department Care Team Description 10/29/2005 Office Visit Specialty Center Marcello Monterroso MULTIP LE SCLEROSIS (Primary Dx); 401 [facility] COMMON MIGRAINE W/O MENTN IN TRACT [address] [place] [address]. [place] [address] Social History Tobacco Use Types [...] documented in this encounter Patient Instructions Patient Pzqbtmlszdmm14/31/2006 2:45 PM CDT Begin nortryptiline 50 mgm [...] Marcello Monterroso - 10/29/2005 12:00 AM CDTHISTORY: Cuoaz-hhr-ivts-old woman back for follow up regarding multiple [...] migrainosus documented in this encounter Care Teams Global Analytics Head Relationship Specialty Start Date End Date Unassigned, Provider PCP - General 01/12/00 08/29/[address] [place] [address] documented as of this encounter
--- OUTSIDE RECORDS SUMMARY | 2022-02-16 12:31 | XMS_ITS | Encounter Summary ---
:1955 Author Organization [facility] Address [address] [place] [address] Care Team Providers Name Role Phone Unassigned, Provider Primary Care Provider Unavailable Encounter Details Date Type Department Care Team Description 10/11/2005 Office Visit Specialty Center Neurology Hs, Eeg Rajan h I MEMORY LOSS EEG/EMG [address] [facility] [place] [address] Social History Tobacco Use Types [...] loss documented in this encounter Care Teams Umbrella Frame Maker Relationship Specialty Start Date End Date Unassigned, Provider PCP - General 01/12/00 08/29/11 [address] [place] [address] documented as of this encounter
--- OUTSIDE RECORDS SUMMARY | 2022-02-16 12:31 | XMS_ITS | Encounter Summary ---
:1955 Author Organization [facility] Address [address], [place] [address] Care Team Providers Name Role Phone Unassigned, Provider Primary Care Provider Unavailable Reason for Visit Reason Onset Date Comments RESULTS, TEST 11/01/2010 Encounter Details Date Type Department Care Team Description 11/01/2010 Telephone [facility] Marcello Russell MD RESULTS, TEST [address] [place], [place] [address] Social History Tobacco Use Types Packs/Day Years Used Date Smoking Tobacco: Former Cigarettes 1 45 Comments: quit 5-6 months ago Alcohol Use Standard Drinks/Week Comments No 0 (1 standard drink = 0.6 oz pure alcoho l) Sex Assigned at Date Recorded Not on file documented as of this encounter Nursing Notes Elav Reyes RN - 11/01/2010 1:59 PM CDT [...] is quite low; should begin B12 supplement ([id number]) cystsand get a repeat level and one month. Hemoglobin A1c indicates diabetic control needs improvement. Should followup with PCP on this. Dr. Russell documented in this encounter Plan of Treatment Not on filedocumented as of this encounter Visit Diagnoses Not on filedocumented in this encounter Care Teams Landscaping Manager Relationship Specialty Start Date End Date Unassigned, Provider PCP - General 01/12/00 08/29/[address] [place] [address] documented as of this encounter
--- OUTSIDE RECORDS SUMMARY | 2022-02-16 12:31 | XMS_ITS | Encounter Summary ---
:1955 Author Organization [facility] Address [address], [place] [address] Care Team Providers Name Role Phone Unassigned, Provider Primary Care Provider Unavailable Reason for Visit Reason Onset Date Comments QUESTIONS, GENERAL 10/23/2007 Encounter Details Date Type Department Care Team Description 10/23/2007 Telephone [facility] Marcello Monterroso MD QUESTIONS, GENERAL [address] [facility]. [place], [place] [address] Social History Tobacco Use Types [...] on filedocumented in this encounter Care Teams Drywall Applicator Relationship Specialty Start Date End Date Unassigned, Provider PCP - General 01/12/00 08/29/[address] [place] [address] documented as of this encounter
--- OUTSIDE RECORDS SUMMARY | 2022-02-16 12:31 | XMS_ITS | Encounter Summary ---
:1955 Author Organization [facility] Address [address], [place] [address] Care Team Providers Name Role Phone Unassigned, Provider Primary Care Provider Unavailable Reason for Visit Reason Comments ROUTINE, FOLLOW-UP 2 months Encounter Details Date Type Department Care Team Description 12/06/2010 Office Visit [facility] Marcello Monterroso, Multiple sclerosis [address] Gabbi [place] (Primary Dx) [place], [place] [address] Social History Tobacco Use Types [...] with no areas of enhancement. Residual urine ifrzku-16-28 mL. Vitamin B12 level was at the [...] sclerosis documented in this encounter Care Teams Vice President Of Instruction Relationship Specialty Start Date End Date Unassigned, Provider PCP - General 01/12/00 08/29/[address] [place] [address] documented as of this encounter
--- OUTSIDE RECORDS SUMMARY | 2022-02-16 12:31 | XMS_ITS | Encounter Summary ---
:1955 Author Organization [facility] Address [address] [place] [address] Care Team Providers Name Role Phone Unassigned, Provider Primary Care Provider Unavailable Encounter Details Date Type Department Care Team Description 09/21/2005 Orders Only External to Unknown, Physici an [address] [place] [address] (Wo rk) Social History Tobacco [...] from the Results sect ion by A [employer] Scan Conversion [[id number]] on 03/19/2010 at 1:53 PM (File: [id number] [id number];) Transcriptions [facility], Provider - 09/21/2005 12:00 AM CDT Physician Unknown DUMMY/OTHER/AR documented in this encounter Visit Diagnoses Not on filedocumented in this encounter Care Teams Urology Physician Assistant Relationship Specialty Start Date End Date Unassigned, Provider PCP - General 01/12/00 08/29/[address] [place] [address] documented as of this encounter
--- OUTSIDE RECORDS SUMMARY | 2022-02-16 12:31 | XMS_ITS | Encounter Summary ---
:1955 Author Organization [facility] Address [address], [place] [address] Care Team Providers Name Role Phone Unassigned, Provider Primary Care Provider Unavailable Reason for Visit Reason Onset Date Comments LAB RESULTS 09/18/2005 elevated blood gluco se of 241 Encounter Details Date Type Department Care Team Description 09/19/2005 Telephone [facility] 401 Stacie Bautista LA B RESULTS (ele[facility]ated [facility] AIR TUBE RELEASER, OPERATIONS CHIEF blood glucose of 241) 401 [facility]. [address] [place] [address] [place], [place] [phone] [address] Social History Tobacco Use Types Packs/Day Years [...] today. Stacie Bautista NP >> STACIE BAUTISTA Duyen Sep 20, 2005 6:24 AM Please let her know when she calls back that all of the labs done on 09-18-05 were within acceptablelimits other than her elevated glucose and she has an elevated Hgb A1C of 7.7. She should speak wit h her PCP re: her blood sugar control. Stacie Bautista NP >> APRIL WHITMAN Wed Sep 19, 2005 11:24 AM Left message to [...] on filedocumented in this encounter Care Teams Mobile Unit Assistant Relationship Specialty Start Date End Date Unassigned, Provider PCP - General 01/12/00 08/29/[address] [place] [address] documented as of this encounter
--- OUTSIDE RECORDS SUMMARY | 2022-02-16 12:31 | XMS_ITS | Encounter Summary ---
:1955 Author Organization [facility] Address [address] [place] [address] Care Team Providers Name Role Phone Unassigned, Provider Primary Care Provider Unavailable Reason for Visit Reason Comments MULTIPLE SCLEROSIS Encounter Details Date Type Department Care Team Description 08/19/2007 Office Visit [facility] Marcello Monterroso, Multiple Sclerosis (Primary Dx); [address] [place]bi [place] Obesity, Unspecified [place] [id number] Social History Tobacco Use Types Packs/Day Years [...] unspecified documented in this encounter Care Teams Bellman Relationship Specialty Start Date End Date Unassigned, Provider PCP - General 01/12/00 08/29/[address] [place] [address] documented as of this encounter
--- OUTSIDE RECORDS SUMMARY | 2022-02-16 12:32 | XMS_ITS | Encounter Summary ---
:1955 Author Organization [facility] [address] [place] [address] Care Team Providers Name Role Phone Unassigned, Provider Primary Care Provider Unavailable Encounter Details Date Type Department Care Team Description 02/28/2001 Office Visit [facility] Debbie Hayes ORGANIC AFFECTIVE Behavioral Health MD [facility] [phone] [place], [place] [id number] Social History Tobacco Use Types Packs/Day Years [...] she is obsessional about the war in [place] and watches [employer] pretty much all day long. She lives with her daughter and son-in-law and granddaughter. They just moved within the past month to [place], [place]. She is a bit more isolated, had grown up and lived in the [place] [facility] throughout her life prior to. She [...] some help for obsessions in the past. [place], she believes has probably been helpful. She feels though that moodiness has clearly been linked with exacerbations of her MS such as current state is. SUBSTANCE USE HISTORY: She reports that she had used marijuana daily up until spring. At that time, was caught by the [employer] police and has stopped use since then. [...] hydrochlorothiazide, Atenolol, amitriptyline 100 mg hs, Premarin, [place] 450 mg Eskalith form bid, prn Codeine [...] SOCIAL HISTORY: Born and raised in the [place]. States father was practicing alcoholic until [...] just moved in the past month to [place], [place], and living on a farm. The patient states she typically doesn't drive because of MS symptoms although can drive when symptoms are not problematic. She has limited activities. Right now, says she is permanently watching events - following the events of the war and has really had difficulties connecting with others down in [place], feeling that they're good people and that [...] this fluctuates by her report. 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 Kennedy II: Deferred Kennedy III: Please refer to Medical History above. Primarily MS with fluctuating course. Kennedy IV: Stressors - moderate to severe. Kennedy V: Highest level of function in past [...] trial appears warranted including the use of [place]. She doesn't specifically recall trials of Depakote [...] and Zyprexa as possible alternatives should the [place], Ativan combination not be sufficiently helpful. She was encouraged to try to increase activities outside the home. Will follow up in roughly five weeks. raffaele Dictated: 02/28/2001 10:18:10 Marcello Hayes MD Transcribed: 03/03/2001 10:50:54 Doc #: [id number] Patient: YARY CALL Page 3 PSYCHIATRIC DATA BASE CONFIDENTIAL MEDICAL RECORD [address] [address] Page 1 Patient: YARY CALL [facility] Date: 02/28/2001 Date of : 1955 PSYCHIATRIC DATA BASE IE documented in this encounter Plan of Treatment Not on filedocumented as of this encounter Visit Diagnoses Diagnosis Mood disorder in conditions classified e lsewhere ([facility]) Mood disorder in conditions classified e lsewhere documented in this encounter Care Teams Retail Equipment Associate Relationship Specialty Start Date End Date Unassigned, Provider PCP - General 01/12/00 08/29/[address] [place] [address] documented as of this encounter
--- OUTSIDE RECORDS SUMMARY | 2022-02-16 12:32 | XMS_ITS | Encounter Summary ---
:1955 Author Organization [facility] Address [address], [place] [address] Care Team Providers Name Role Phone Unassigned, Provider Primary Care Provider Unavailable Reason for Visit Reason Onset Date Comments MULTIPLE SCLEROSIS 08/28/2005 Encounter Details Date Type Department Care Team Description 08/28/2005 Telephone [facility] Marcello Monterroso MD MULTIPLE SCLEROSIS [address] [place], [place] [address] Social History Tobacco Use Types [...] Nadolol 120 mg qd. Please advise. Valerie Jimenez RN >> ARTIS Fierro August 28, 2005 8:54 AM pt has been falling more often; also, increased confused documented in this encounter Plan of Treatment Not on filedocumented as of this encounter Visit Diagnoses Not on filedocumented in this encounter Care Teams Pathology Technologist Relationship Specialty Start Date End Date Unassigned, Provider PCP - General 01/12/00 08/29/[address] [place] [address] documented as of this encounter
--- OUTSIDE RECORDS SUMMARY | 2022-02-16 12:32 | XMS_ITS | Encounter Summary ---
:1955 Author Organization [facility] Address [address] [place] [address] Care Team Providers Name Role Phone Unassigned, Provider Primary Care Provider Unavailable Reason for Referral Specialty Diagnoses / Procedures Referred By Contact Refer red To Contact Stacie Bautista, MITCH POLLARD [address] [place] [address] Referral ID Status Reason Start Date Expiration Date Visits Requ ested Visits Authorized Reason for Visit Reason Comments MEMORY,LOSS OF testing Encounter Details Date Type Department Care Team Description 09/18/2005 Office Visit [facility] Stacie Bautista, ABRAHAM LE SCLEROSIS (Primary Dx); [address] [facility] MITCH POLLARD MEMORY LOSS; [address] [place] [address] [place], [place] [phone] Social History Tobacco Use Types Packs/Day Years [...] documented in this encounter Patient Instructions Patient Grcglkzlxuzy86/20/2006 12:45 PM CDT The following instructions are [...] another patient for that time. Please call [phone] with any concerns regarding your visit today [...] RESULTS: Please call the Neurology Department at [phone], in 10 day(s) after your lab test, [...] concerns. Please call the neurology department at [phone] if you have any questions related to [...] Notes 09/18/2005 12:45 PM CDT Addended by: STACEI BAUTISTA on: 09/20/2005 6:22:53 AM Labs from 09-18-05 within acceptable limits other than elevated glucose and HgbA1C. Yary Call will be notified via phone of results. Stacie Bautista, ROSTIA S:Yary Call is a 50 yr old [...] Maintains good eye contact during the visit. [place] Short Mental Status Exam (29-35 indicative of mild cognitive impairment; 29 or less detects dementia):(STMS, [place] Short Form) ??? Orientation 8/8, Attention 6/7, [...] bipolar disease. Score of 34/38 on the [place] Short Mental Status Exam is not indicative [...] in some time. 5. I requested the agricultural equipment sales manager to help her figure out when she [...] to 5 seconds but does have swaying. Ognnzm-cc-ilvx test is fairly accurate bilaterally, she has a little more trouble with the left hand then the right hand but there is no dysmetria noted. Rapid alternating movements with fingers are fairly smooth. Ziha-vn-zomq test is smooth bilaterally. Right big toe [...] P: 1. Please see plan found in [facility] under the Memory Evaluation note. DIAGNOSES: Multiple sclerosis (340) Memory loss (780.93) Bipolar disease (296.80) P cc: MD Stacie Allison RN,PLUMBING ENGINEER Marcello Monterroso MD documented in this encounter Plan of Treatment Not on filedocumented as of this encounter Results (ABNORMAL) BASIC METABOLIC PANEL (09/18/2005 2:29 PM CDT) [facility] Method Time Signature BUN 13 10 [...] Bautista APRN, CNP LAB_1 Performing Organization Address [facility] Phon e Number [facility] [phone] [address] LYME ANTIBODY (09/18/2005 2:29 PM CDT) athologist Signature Lyme Antibody 0.46 <0.75 OD [facility] Ratio Comment: Negative Specimen Anatomical Collection Method Collection Time Receive d Time (Source) Location / / Volume Laterality 09/18/2005 2:29 PM 6 2:31 CDT PM CDT Stacie Bautista APRN, CNP LAB_1 Performing Organization Address [facility] Phon e Number [facility] [phone] [address] TSH, SENSITIVE (WITH REFLEX) (09/18/2005 2:29 PM CDT) athologist Signature TSH, with 2.46 0.3 - 5.0 [facility] Reflex uIU/ml Specimen Anatomical Collection Method Collection Time Receive d Time (Source) Location / / Volume Laterality 09/18/2005 2:29 PM 6 2:31 CDT PM CDT Stacie Bautista APRN, CNP LAB_1 Performing Organization Address [facility] Phon e Number [facility] [phone] [address] (ABNORMAL) HEMOGRAM/PLTS/DIFF (09/18/2005 2:29 PM CDT) [facility] gist Method Time Signature WBC 10.5 4.0 - 11.0 [facility] k/ul RBC 4.35 4.0 - 5.2 [facility] M/ul Hemoglobin 13.6 12.0 - [facility] 16.0 g/dl HCT 40.8 36.0 - [facility] 46.0 % MCV 93.9 80 - 100 [facility] fl MCH 31.3 26 - 34 pg [facility] MCHC 33.4 32 - 36 % [facility] RDW 13.3 11.5 - [facility] 14.5 % Platelets 354 150 - 450 [facility] k/ul PMN/Band 45 43 - 72 % [facility] Lymph 43 17 - 43 % [facility] [place] 5 4 - 12 % [facility] Eos 6 0 - 8 % [facility] Baso 1 0 - 1 % [facility] Neutrophil 4.7 1.8 - 7.7 [facility] Absolute k/ul Lymph Absolute 4.5 1.0 - 4.8 [facility] k/ul [place] Absolute 0.5 0.1 - 0.7 [facility] k/ul Eos Absolute 0.7 (H) 0.0 - 0.5 [facility] k/ul Baso Absolute 0.1 0.0 - 0.2 [facility] k/ul Specimen Anatomical Collection Method Collection Time Receive d Time (Source) Location / / Volume Laterality 09/18/2005 2:29 PM 6 2:31 CDT PM CDT Stacie Bautista APRN, CNP LAB_1 Performing Organization Address [facility] Phon e Number [facility] [phone] [phone] OSCAR SCREEN (09/18/2005 2:29 PM CDT) P athologist Signature OSCAR Screen Negative NEG [facility] Specimen Anatomical Collection Method Collection Time Receive d Time (Source) Location / / Volume Laterality 09/18/2005 2:29 PM 6 2:31 CDT PM CDT Stacie Bautista APRN, CNP LAB_1 Performing Organization Address [facility] Phon e Number [facility] [phone] [facility] [address] [place] [phone] VIT B12 & FOLATE (09/18/2005 2:29 PM CDT) athologist Signature Vitamin B12 235 211 - 911 [facility] pg/ml Folate 5.3 >3.0 ng/ml [facility] Specimen Anatomical Collection Method Collection Time Receive d Time (Source) Location / / Volume Laterality 09/18/2005 2:29 PM 6 2:31 CDT PM CDT Stacie Bautista APRN, CNP LAB_1 Performing Organization Address City/[facility]/ZIP Code Phon e Number [facility] [phone] [address] (ABNORMAL) HGB A1C (09/18/2005 2:29 PM CDT) athologist [facility] Hgb A1c 7.7 (H) 4.3 - 6.1 % [facility] Specimen Anatomical Collection Method Collection Time Receive d Time (Source) Location / / Volume Laterality 09/18/2005 2:29 PM 6 2:31 CDT PM CDT Stacie Bautista APRN, CNP LAB_1 Performing Organization Address [facility] Phon e Number [facility] [phone] [address] AST (SGOT) (09/18/2005 2:29 PM CDT) athologist Signature AST (SGOT) 24 <45 U/L [facility] Specimen Anatomical Collection Method Collection Time Receive d Time (Source) Location / / Volume Laterality 09/18/2005 2:29 PM 6 2:31 CDT PM CDT Stacie Bautista APRN, CNP LAB_1 Performing Organization Address [facility] Phon e Number [facility] [phone] [address] ALT (SGPT) (09/18/2005 2:29 PM CDT) P athologist Signature ALT (SGPT) 21 0 - 55 U/L [facility] Specimen Anatomical Collection Method Collection Time Receive d Time (Source) Location / / Volume Laterality 09/18/2005 2:29 PM 6 2:31 CDT PM CDT Stacie Bautista APRN, PLUMBING ENGINEER LAB_1 Performing Organization Address City/State/ZIP Code Phon e Number [facility] [phone] [facility] [address] [address] documented in this encounter Visit Diagnoses Diagnosis Multiple sclerosis (HRC) - Primary Multiple sclerosis Memory loss Bipolar disorder, unspecified (HRC) Bipolar disorder, unspecified documented in this encounter Care Teams Collar Sewer Relationship Specialty Start Date End Date Unassigned, Provider PCP - General 01/12/00 08/29/11 [address] [place] [address] documented as of this encounter
--- OUTSIDE RECORDS SUMMARY | 2022-02-16 12:32 | XMS_ITS | Encounter Summary ---
:1955 Author Organization [facility] Address [address] [place] [address] Care Team Providers Name Role Phone Unassigned, Provider Primary Care Provider Unavailable Encounter Details Date Type Department Care Team Description 09/12/2004 Correspondence [facility] Marcello Monterroso, CERTIFICATE OF MEDICAL [address] Gabbi [place] NECESSITY/PATIENT [place], [place] [address] FUNCTIONAL ASSESSMENT [phone] Social History Tobacco Use Types Packs/Day Years [...] on filedocumented in this encounter Care Teams Indoor Landscaper/Gardener Relationship Specialty Start Date End Date Unassigned, Provider PCP - General 01/12/00 08/29/[address] [place] [address] documented as of this encounter
--- OUTSIDE RECORDS SUMMARY | 2022-02-16 12:32 | XMS_ITS | Encounter Summary ---
:1955 Author Organization [facility] Address [address] [place] [address] Care Team Providers Name Role Phone Unassigned, Provider Primary Care Provider Unavailable Encounter Details Date Type Department Care Team Description 11/05/2003 Correspondence None Unknown, Physici an [facility] [address], [place] [id number] (Wo rk) Social History Tobacco Use Types Packs/Day Years Used Date Smoking Tobacco: Never Assessed Sex Assigned at Date Recorded Not on file documented as of this encounter Progress Notes Unknown, Physician - 11/05/2003 12:00 AM CDT documented in this encounter Plan of Treatment Not on filedocumented as of this encounter Visit Diagnoses Not on filedocumented in this encounter Care Teams Loss Prevention Representative Relationship Specialty Start Date End Date Unassigned, Provider PCP - General 01/12/00 08/29/11 [address] [place] [address] documented as of this encounter
--- OUTSIDE RECORDS SUMMARY | 2022-02-16 12:32 | XMS_ITS | Encounter Summary ---
:1955 Author Organization [facility] Address [address], [place] [address] Care Team Providers Name Role Phone Unassigned, Provider Primary Care Provider Unavailable Reason for Visit Reason Comments MULTIPLE SCLEROSIS Encounter Details Date Type Department Care Team Description 08/29/2004 Office Visit [facility] Marcello Monterroso MD MULTIPLE SCLEROSIS; [address] [place], [place] [address] Social History Tobacco Use Types [...] 08/29/2004 12:00 AM CDTHISTORY OF PRESENT ILLNESS: Bkvgp-drxl-vgb woman right-handed woman with probable multiple sclerosis as well as bipolar disorder is back for followup. I have not seen Yary since December 1999. She tells me she's been receiving neurological care at the [facility] over the past few years but [...] with her how to go to a supply chain assistant and have the paper work sent on to me. EXAMINATION: Blood pressure 132/88, pulse 84 and regular, height 5 feet 3 inches, weight 243 pounds. Alert, but tired appearing morbidly obese middle-aged woman. Affect is somewhat inappropriate with joking. Speech is easily understood. Eye movements are full and conjugate. Facial movements symmetrical, tongue, plate and swallow intact. There is no arm drift. Mweiai-pv-tshn and pksa-qt-mvlh are accurate. When walking she`s initially unsteady [...] that we can get records from the [facility] as to what was done there. I'd like to see her back in 6 months though I am not sure she will follow-up on this. We discussed lifestyle issues including weight management, exercise. [place] Says there aren't many facilities around there. We also talked about MS prognosis she is now in her 50's. Forty minutes with the patient 25 minutes in counseling and care coordination. 10:43 A cc: Marcello Monterroso MD documented in this encounter Nursing Notes 08/29/2004 3:25 PM CDT >> GABE PEDROZA 08/29/2004 3:45 pm Here for follow-up on MS. Deonnaangelica Pedroza LPN 08/29/2004 documented in this encounter Plan of Treatment Not on filedocumented as of this encounter Visit Diagnoses Diagnosis Multiple sclerosis (HRC) Multiple sclerosis Obesity, unspecified (HRC) Obesity, unspecified documented in this encounter Care Teams Stockroom Clerk Relationship Specialty Start Date End Date Unassigned, Provider PCP - General 01/12/00 08/29/[address] [place] [address] documented as of this encounter
--- OUTSIDE RECORDS SUMMARY | 2022-02-16 12:32 | XMS_ITS | Encounter Summary ---
:1955 Author Organization [facility] Address [address], [place] [address] Care Team Providers Name Role Phone Unassigned, Provider Primary Care Provider Unavailable Encounter Details Date Type Department Care Team Description 03/04/2001 Office Visit [facility] Alonso Frank, KASSANDRA AL [facility] MD VAS[facility]Z [facility] [address] [place] [address] (Wo rk) Social History Tobacco Use Types Packs/Day Years Used Date Smoking Tobacco: Never Assessed Sex Assigned at Date Recorded Not on file documented as of this encounter Progress Notes Anitha Curtis - 03/04/2001 12:00 AM CSTSubjective: The patient is a 45 year old female with multiple sclerosis here today with complaints of an abscessed tooth. She has an appointment tomorrow with the [facility] dentist. She is just getting [...] 03/04/2001 12:27:02 Transcribed: 03/07/2001 15:27:50 Doc #: [id number] PATIENT NAME: YARY PHILIPPE VISIT DATE: 03/04/2001 AGE: 45Y [facility] Provider Signature Page 1 Confidential Medical Record [facility] [address] [place] [address] ?? [place] [address] Page Patient: YARY PHILIPPE Visit Date: 03/04/2001 Clara Curtis DO Date of : 1955 VISIT DATE: 03/04/2001 AGE: 45Y [facility] Provider Signature TYPE MACHINIST APPRENTICE documented in this encounter Plan of Treatment Not on filedocumented as of this encounter Visit Diagnoses Diagnosis Periapical abscess without sinus documented in this encounter Care Teams Manager Msw Relationship Specialty Start Date End Date Unassigned, Provider PCP - General 01/12/00 08/29/[address] [place] [address] documented as of this encounter
--- OUTSIDE RECORDS SUMMARY | 2022-02-16 12:32 | XMS_ITS | Encounter Summary ---
:1955 Author Organization [facility] Address [address] [place] [address] Care Team Providers Name Role Phone Unassigned, Provider Primary Care Provider Unavailable Encounter Details Date Type Department Care Team Description 11/08/2003 Correspondence None Unknown, Physici an [facility] MOHINDER to [facility] [address] [place], [place] [id number] (Wo rk) Social History Tobacco Use Types Packs/Day Years Used Date Smoking Tobacco: Never Assessed Sex Assigned at Date Recorded Not on file documented as of this encounter Progress Notes Unknown, Physician - 11/08/2003 12:00 AM CDT documented in this encounter Plan of Treatment Not on filedocumented as of this encounter Visit Diagnoses Not on filedocumented in this encounter Care Teams Operations Supervisor 2Nd Shift Relationship Specialty Start Date End Date Unassigned, Provider PCP - General 01/12/00 08/29/11 [address] [place] [address] documented as of this encounter
--- OUTSIDE RECORDS SUMMARY | 2022-02-16 12:32 | XMS_ITS | Encounter Summary ---
:1955 Author Organization [facility] [address], [place] [address] Care Team Providers Name Role Phone Unassigned, Provider Primary Care Provider Unavailable Encounter Details Date Type Department Care Team Description 04/15/2001 Office Visit [facility] Debbie Hayes ORGANIC AFFECTIVE Behavioral Health MD Cata [facility] [phone] [address] [place], [place] [id number] Social History Tobacco Use Types Packs/Day Years Used Date Smoking Tobacco: Never Assessed Sex Assigned at Date Recorded Not on file documented as of this encounter Plan of Treatment Not on filedocumented as of this encounter Visit Diagnoses Diagnosis Mood disorder in conditions classified e lsewhere ([facility]) Mood disorder in conditions classified e lsewhere documented in this encounter Care Teams Rn Lvn Relationship Specialty Start Date End Date Unassigned, Provider PCP - General 01/12/00 08/29/11 [address] [place] [address] documented as of this encounter
--- OUTSIDE RECORDS SUMMARY | 2022-02-16 12:32 | XMS_ITS | Encounter Summary ---
:1955 Author Organization [facility] Address [address] [place] [address] Care Team Providers Name Role Phone Unassigned, Provider Primary Care Provider Unavailable Encounter Details Date Type Department Care Team Description 11/03/2003 Orders Only [facility] Unknown, Physician [address] [place] [address] [address] [place] [address] [place], [place] [address] (Wo rk) Social History Tobacco Use Types [...] filedocumented in this encounter Care Teams Senior Design Engineer Relationship Specialty Start Date End Date Unassigned, Provider PCP - General 01/12/00 08/29/11 [address] [place] [address] documented as of this encounter
--- OUTSIDE RECORDS SUMMARY | 2022-02-16 12:32 | XMS_ITS | Encounter Summary ---
:1955 Author [facility] Address [address] [place] [address] Care Team Providers Name Role Phone Unassigned, Provider Primary Care Provider Unavailable Encounter Details Date Type Department Care Team Description 03/01/2001 Office Visit [facility] Sabina Zhu MD MULTIPLE SCLEROSIS; [facility] [address] [place] [address] (Wo rk) Social History Tobacco [...] history of bipolar disorder and was on [place] for a year and she stopped taking it because she was feeling better. For the past five years she has not been on [place]. She says Hop[place] helped her a lot with her symptoms [...] he said we could start her on [place] 450-mg po bid. Her creatinine and TSH were OK. Her creatinine was .6 and TSH was 1.48. 3. I told her to follow-up with behavioral health as an outpatient and will schedule an appointment with Dr. Yusuf at 9:00 a.m. jade Dictated: 02/26/2001 16:13:40 Transcribed: 03/04/2001 11:34:50 Doc #: [id number] PATIENT NAME: YARY PHILIPPE VISIT DATE: 02/26/2001 AGE: 45Y [facility] Provider Signature Page 1 Confidential Medical Record [facility] ?? [place] [address] Page Patient: YARY PHILIPPE Visit Date: 02/26/2001 Sabina Zhu MD Date of : 1955 VISIT DATE: 02/26/2001 AGE: 45Y [facility] Provider Signature PARTS SALESPERSON documented in this encounter Plan of Treatment Not on filedocumented as of this encounter Visit Diagnoses Diagnosis Multiple sclerosis (HRC) Multiple sclerosis Bipolar I disorder, most recent episode (or current) unspecified (HRC) Bipolar I disorder, most recent episode (or current) unspecified documented in this encounter Care Teams Operating Theatre Technician Relationship Specialty Start Date End Date Unassigned, Provider PCP - General 01/12/00 08/29/[address] [place] [address] documented as of this encounter
--- OUTSIDE RECORDS SUMMARY | 2022-02-16 12:32 | XMS_ITS | Encounter Summary ---
:1955 Author Organization [facility] Address [address] [place] [address] Care Team Providers Name Role Phone Unassigned, Provider Primary Care Provider Unavailable Encounter Details Date Type Department Care Team Description 10/31/2003 Office Visit Fransisco Sarabia MD [address] [place], [place] [phone] SKIN SENSATION DISTURB; Nereida Reyes MD [address] [place] [address] [phone] STREP SORE THROAT; MULTIPLE SCLERO SIS; ACIDOSIS; [...] a cranberry pill. She wondered if her bwixamm-uo-pxl was poisoning her. Otherwise, there was nothing further elucidated from further history. Toxicology and PharmD were consulted and felt her medications did not play a role in her lactic acidosis. We also discussed these findings with the complex human resources manager of the laboratory who felt that this was highly unlikely to be error in terms of the machine as the quality assistant was done on the machine twice daily [...] physician. She has been previously followed at [facility], and she was willing to have close followup at [facility] for her lactic acidosis as an outpatient. [...] an outpatient. She was also given the [phone] Help-Line phone number. DISPOSITION: The patient was discharged in stable condition to home. Activity as tolerated. She is on room air. Diet is low cholesterol. FOLLOWUP 1. [facility] in 1 week. She should have a lactate and chemistry-7 checked. Her fasting blood sugar should be checked and will be helpful in assessing her diabetes. She is in the process of setting up a new primary care physician and will schedule this appointment on her own. 2. Neurology clinic, Dr. Marcello Monterroso, at [facility] in 2 weeks. 3. Colonoscopy to [...] any questions, please contact this dictator at [phone]. mmj Dictated: 11/11/2003 22:39:43 Julius Tanner MD Transcribed: 11/12/2003 00:08:40 Staff: Nabeel Gonzáles MD Doc #: [id number] cc: MD Nabeel Garcia MD, Attending [facility] Marcello Monterroso MD [facility], 1 Page 2 Patient Name: YARY PHILIPPE DISCHARGE SUMMARY CONFIDENTIAL MEDICAL RECORD [address] [address] Page 1 Patient: YARY PHILIPPE Location: HPN: [id number] Admit Date: 10/31/2003 Date of : 1955 Discharge Date: 11/06/2003 DISCHARGE SUMMARY documented in this encounter Consult Notes Cachorro Ye R - 10/31/2003 12:00 AM CDT TOXICOLOGY CONSULTATION [...] patient is followed for this at the [facility]. She also has bipolar affective disorder for [...] this, of course, would include seizures, especially zgncr-jkwrfh-rgsg seizures. The infection etiology and especially shock, [...] please feel free to call toxicology at [phone]. The toxicology service appreciates the opportunity to participate in this patient's interesting problem and will be happy to continue to follow the patient with you if there are any further issues presenting. TIME WITH PATIENT: Approximately 30 minutes. sko Dictated: 11/03/2003 17:20:09 Cachorro Ye MD Transcribed: 11/03/2003 19:43:56 Doc #: [id number] cc: Daquan Nunez MD 1 Page 2 Patient Name: YARY PHILIPPE CONSULTATION CONFIDENTIAL MEDICAL RECORD [address] [address] Page 1 Patient: YARY PHILIPPE Location: 9E HPN: [id number] Admit Date: 10/31/2003 Date of : 1955 [...] was followed by a neurologist was at [facility] per Dr. Guzman. She has been on [...] was 5/5 x 4. Coordination was normal. Wntlgm-rngn-wcqqgl, rapid alternating movements, and lvwb-viwa-rvbv tests were intact bilaterally. Sensory exam: The [...] patient with you. sac Dictated: 11/01/2003 08:44:00 M. Cyndee Su MD Transcribed: 11/01/2003 09:49:06 Doc #: [id number] cc: Daquan Nunez MD, Attending This document was electronically signed by Yury Su MD on 11/19/2003 15:34:03. 1 Page 2 Patient Name: YARY PHILIPPE CONSULTATION CONFIDENTIAL MEDICAL RECORD [address] [address] Page 1 Patient: YARY PHILIPPE Location: E HPN: [id number] Admit Date: 10/31/2003 Date of : 1955 Discharge Date: CONSULTATION documented in this encounter OR Notes H&P - CiroJulius - 10/31/2003 12:00 AM CDT STAT CHIEF [...] Depakote and follows with Dr. Soni at [facility]. Her most recent manic episode was 2 [...] alcoholism. SOCIAL HISTORY: The patient lives in [place], [place] with her daughter and her family [...] consider deferring this to Dr. Soni at [facility]. However, also consider psyche consultation and care. 5. Tobacco abuse. She is interested in smoking cessation. We will start nicotine patch while she is here and we will discuss with regarding Wellbutrin being an indication for this patient. CODE STATUS: Full code. celestino Dictated: 11/01/2003 06:43:19 Julius Tanner MD Transcribed: 11/01/2003 07:24:55 Staff: Doc #: [id number] cc: Daquan Nunez MD, Attending 1 Page 2 Patient Name: YARY PHILIPPE HISTORY & PHYSICAL CONFIDENTIAL MEDICAL RECORD [address] [address] Page 1 Patient: YARY PHILIPPE Location: 9E HPN: [id number] Admit Date: 10/31/2003 Date of : 1955 [...] is 4/5 bilaterally; coordination is intact to lxvdbq-ieqz-jhwuli exam and dpjd-hsrp-gsef exam; light touch sensation is decreased on [...] last MRI approximately two years ago at [facility]. She states that she has had approximately 6-7 MRI scans in the past and that some of them were performed here at [facility]; however, I was unable to locate those images on [facility]. This patient was discussed with Dr. Reyes. DISPOSITION: Admit to medicine general floor. Neurology has been consulted and would be glad to follow up with her care. ambrocio Dictated: 10/31/2003 17:37:21 Vi Conteh MD Transcribed: 11/02/2003 09:09:01 Staff: Nereida Reyes MD Doc #: [id number] cc: Daquan Nunez MD, Attending Physician 1 Page 2 Patient Name: YARY PHILIPPE Visit Date: 10/31/2003 EMERGENCY MEDICINE NOTE CONFIDENTIAL MEDICAL RECORD [address] [address] Page 1 Patient: YARY PHILIPPE Location: 9E N: [id number] Date of : 1955 Visit Date: 10/31/2003 [...] Signature US COMPLETE ABDOMINAL ULTRASOUND 11/04/03 [facility]. INDICATIONS: Lactic acidosis and hepatomegaly. RADIOLOGY MULTI-ORGANS [...] 11/05/2003 2:03 PM CDT PATIENT DOES SPEAK SURINAMESE BEEPER NO: [phone] CLINICAL HX:-LACIC ACIDOSIS Amen Ciro [facility] [...] 11/03/2003 5:15 PM CDT PATIENT DOES SPEAK SURINAMESE BEEPER NO: [phone] CLINICAL HX:-PERSISTANT LACTIC ACIDOSIS Amen Ciro [place] [...] or hydrocephalus. Findings were called to the [facility] Emergency Room at the time of [...] ngs documented in this encounter Care Teams Reheat Furnace Operator Relationship Specialty Start Date End Date Unassigned, Provider PCP - General 01/12/00 08/29/[address] [place] [address] documented as of this encounter
--- OUTSIDE RECORDS SUMMARY | 2022-02-16 12:32 | XMS_ITS | Encounter Summary ---
:1955 Author Organization [facility] Address [address] [place] [address] Care Team Providers Name Role Phone Unassigned, Provider Primary Care Provider Unavailable Encounter Details Date Type Department Care Team Description 07/07/2004 Correspondence [facility] Marcello Monterroso, LETTER STATING TO CALL [address] Romy Seo MD WHEN APPT CANCEL [place] [phone] Social History Tobacco Use Types Packs/Day Years Used Date Smoking Tobacco: Never Assessed Sex Assigned at Date Recorded Not on file documented as of this encounter Progress Notes Marcello Montreroso - 07/07/2004 12:00 AM CDT documented in this encounter Plan of Treatment Not on filedocumented as of this encounter Visit Diagnoses Not on filedocumented in this encounter Care Teams Finisher Fine Diamond Dies Relationship Specialty Start Date End Date Unassigned, Provider PCP - General 01/12/00 08/29/[address] [place] [address] documented as of this encounter
--- OUTSIDE RECORDS SUMMARY | 2022-02-16 12:32 | XMS_ITS | Encounter Summary ---
:1955 Author Organization [facility] Address [address] [place] [address] Care Team Providers Name Role Phone Unassigned, Provider Primary Care Provider Unavailable Encounter Details Date Type Department Care Team Description 10/26/2004 Telephone [facility] Marcello Monterroso MD [address] [place], [place] [address] Social History Tobacco Use Types Packs/Day Years Used Date Smoking Tobacco: Every Day Cigarettes 45 Comments: 4-5 cigarettes per day Alcohol Use Standard Drinks/Week Comments No 0 (1 standard drink = 0.6 oz pure alcoho l) Sex Assigned at Date Recorded Not on file documented as of this encounter Nursing Notes 10/26/2004 11:59 PM CDT >> KEARA ALLEN [facility] Oct 26, 2004 11:54 AM Encounter initiated. documented in this encounter Plan of Treatment Not on filedocumented as of this encounter Visit Diagnoses Not on filedocumented in this encounter Care Teams Deliverer Merchandise Relationship Specialty Start Date End Date Unassigned, Provider PCP - General 01/12/00 08/29/[address] [place] [address] documented as of this encounter
--- OUTSIDE RECORDS SUMMARY | 2022-02-16 12:32 | XMS_ITS | Encounter Summary ---
:1955 Author Organization [facility] Address [address], [place] [address] Care Team Providers Name Role Phone Unassigned, Provider Primary Care Provider Unavailable Reason for Visit Reason Onset Date Comments Other 12/22/2004 Encounter Details Date Type Department Care Team Description 12/22/2004 Telephone [facility] Marcello Monterroso MD Other [address] [place], [place] [address] Social History Tobacco Use Types [...] Please re-fax certificate of medical ness. to #[phone] documented in this encounter Plan of Treatment Not on filedocumented as of this encounter Visit Diagnoses Not on filedocumented in this encounter Care Teams Mortgage Clerk Relationship Specialty Start Date End Date Unassigned, Provider PCP - General 01/12/00 08/29/11 [address] [place] [address] documented as of this encounter
--- OUTSIDE RECORDS SUMMARY | 2022-02-16 12:32 | XMS_ITS | Encounter Summary ---
:1955 Author Organization [facility] Address [address] [place] [address] Care Team Providers Name Role Phone Unassigned, Provider Primary Care Provider Unavailable Encounter Details Date Type Department Care Team Description 11/05/2003 Correspondence None Unknown, Physici an [facility] [address] [place], [place] [phone] (Wo rk) Social History Tobacco Use Types Packs/Day Years Used Date Smoking Tobacco: Never Assessed Sex Assigned at Date Recorded Not on file documented as of this encounter Progress Notes Unknown, Physician - 11/05/2003 12:00 AM CDT documented in this encounter Plan of Treatment Not on filedocumented as of this encounter Visit Diagnoses Not on filedocumented in this encounter Care Teams Apron Trimmer Relationship Specialty Start Date End Date Unassigned, Provider PCP - General 01/12/00 08/29/11 [address] [place] [address] documented as of this encounter
--- OUTSIDE RECORDS SUMMARY | 2022-02-16 12:32 | XMS_ITS | Encounter Summary ---
:1955 Author Organization [facility] Address [address] [place] [address] Care Team Providers Name Role Phone Unassigned, Provider Primary Care Provider Unavailable Encounter Details Date Type Department Care Team Description 09/06/2005 Correspondence None Hp Angélica, Provider consent to release Social History Tobacco [...] filedocumented in this encounter Care Teams Mortgage Advisor Relationship Specialty Start Date End Date Unassigned, Provider PCP - General 01/12/00 08/29/[address] [place] [address] documented as of this encounter
--- OUTSIDE RECORDS SUMMARY | 2022-02-16 12:32 | XMS_ITS | Encounter Summary ---
:1955 [facility] Address [address] [address] Care Team Providers Name Role Phone Unassigned, Provider Primary Care Provider Unavailable Encounter Details Date Type Department Care Team Description 02/10/2001 Office Visit [facility] Charly Narayanan MULTIPLE SCLEROSIS; [facility]icians [facility] AMD CHEST PAIN NOS UNASSIGNED CLINI C [facility] [address] [place] [id number] Social History Tobacco Use Types Packs/Day Years Used Date Smoking Tobacco: Never Assessed Sex Assigned at Date Recorded Not on file documented as of this encounter Progress Notes Charly Narayanan A - 02/06/2001 12:00 AM CSTSubjective: The patient presents herself in the examination room. She is sitting in a wheelchair. She tells me she lives with her daughter and her boyfriend, José Luis. She also tells me that she has multiple sclerosis and that now she feels some ill-defined distress in the left upper chest with some reference to the left shoulder and the left hand. This has been present for a day or so, and the distress radiates down to the left mid forearm area. She also states that she feels quite weak and admits that she is concerned about the chest-like symptoms. She did eat today. She states that she is feeling well other than the chest discomfort and the usual MS symptoms. Objective: She does not seem to be in acute distress as she sits in the wheelchair. Her lungs were clear. Her heart was regular without murmurs being heard. BP 128/68. Impression: MS, possible acute flare-up. Plan: She was given a sample of Aciphex 20 mg (#7) to take one daily. She was fully advised that if the chest distress becomes worse, she should seek out ER evaluation. Otherwise she is to return to see her regular physician, Dr. Betty Linares. In visiting with her, it seems that she concurs that most likely it is the MS symptoms that she is having. However I did emphasize to her the need that she should be reevaluated immediately if it gets worse of it continues. rlm Dictated: 02/06/2001 18:44:00 Transcribed: 02/12/2001 16:14:32 Doc #: [id number] PATIENT NAME: YARY PHILIPPE VISIT DATE: 02/06/2001 AGE: 45Y [facility] Provider Signature Page 2 Confidential Medical Record [facility] [address] [place] [address] ?? [place] [address] Page Patient: YARY PHILIPPE Visit Date: 02/06/2001 Charly Narayanan MD Date of : 1955 VISIT DATE: 02/06/2001 AGE: 45Y [facility] Provider Signature HERSEAL TECHNICIAN documented in this encounter Plan of Treatment Not on filedocumented as of this encounter Visit Diagnoses Diagnosis Multiple sclerosis (HRC) Multiple sclerosis Chest pain, unspecified documented in this encounter Care Teams Phlebotomy Director Relationship Specialty Start Date End Date Unassigned, Provider PCP - General 01/12/00 08/29/[address] [place] [address] documented as of this encounter
--- OUTSIDE RECORDS SUMMARY | 2022-02-16 12:32 | XMS_ITS | Encounter Summary ---
:1955 Author Organization [facility] Address [address] [place] [address] Care Team Providers Name Role Phone Unassigned, Provider Primary Care Provider Unavailable Encounter Details Date Type Department Care Team Description 11/05/2003 Correspondence None Unknown, [facility] [address] [place] [address] (Wo rk) Social History Tobacco Use Types Packs/Day Years Used Date Smoking Tobacco: Never Assessed Sex Assigned at Date Recorded Not on file documented as of this encounter Progress Notes Unknown, Physician - 11/05/2003 12:00 AM CDT documented in this encounter Plan of Treatment Not on filedocumented as of this encounter Visit Diagnoses Not on filedocumented in this encounter Care Teams K9 Handler Relationship Specialty Start Date End Date Unassigned, Provider PCP - General 01/12/00 08/29/[address] [place] [address] documented as of this encounter
--- OUTSIDE RECORDS SUMMARY | 2022-02-16 12:33 | XMS_ITS | Encounter Summary ---
:1955 Author Organization [facility] Address [address] [place] [address] Care Team Providers Name Role Phone Unassigned, Provider Primary Care Provider Unavailable Encounter Details Date Type Department Care Team Description 01/10/2001 Office Visit [facility] Sabina Zhu MD [facility]; [facility] [address] [place] [address] (Wo rk) Social History Tobacco [...] patient has been discussed with [facility] Dictated: 01/10/2001 15:31:00 Transcribed: 01/14/2001 13:58:41 Doc #: [id number] Braydon Gonzalez MD PATIENT NAME: YARY PHILIPPE VISIT DATE: 01/10/2001 AGE: 45Y [facility] Provider Signature Page 2 Confidential Medical Record [facility] [address] [facility] ?? [place] [address] Page Patient: YARY PHILIPPE Visit Date: 01/10/2001 Sabina Zhu MD Date of : 1955 VISIT DATE: 01/10/2001 AGE: 45Y [facility] Provider Signature documented in this encounter Plan of Treatment Not on filedocumented as of this encounter Visit Diagnoses Diagnosis Unspecified urinary incontinence Multiple sclerosis (HRC) Multiple sclerosis documented in this encounter Care Teams Nondestructive Tester Relationship Specialty Start Date End Date Unassigned, Provider PCP - General 01/12/00 08/29/[address] [place] [address] documented as of this encounter
--- OUTSIDE RECORDS SUMMARY | 2022-02-16 12:33 | XMS_ITS | Encounter Summary ---
:1955 Author Organization [facility] Address [address] [place] [address] Care Team Providers Name Role Phone No Primary/Referring, Phy Primary Care Provider Unavailable Encounter Details Date Type Department Care Team Description 02/07/2001 Orders Only Fredis Yan MD [address] [place], [place] [address] [place] [address] [phone] (Wo rk) Social History Tobacco Use Types Packs/Day Years Used Date Smoking Tobacco: Never Assessed Sex Assigned at Date Recorded Not on file documented as of this encounter Plan of Treatment Not on filedocumented as of this encounter Procedures Procedure Name Priority Date/Time Associated Diagnosis Comme nts HEMOGRAM & Waiting 02/07/2001 5:36 PM Results f or this PLATELETS AIRCRAFT AIR CONDITIONING MECHANIC procedure are i n the results section. BASIC METABOLIC Waiting 02/07/2001 5:36 PM Result s for this PANEL AIRCRAFT AIR CONDITIONING MECHANIC procedure are i n the results section. documented in this encounter Results (ABNORMAL) BASIC METABOLIC PANEL (02/07/2001 5:36 PM AIRCRAFT AIR CONDITIONING MECHANIC) P athologist Signature BUN 17 10 - [...] Volume Laterality 02/07/2001 5:36 PM 1 5:51 AIRCRAFT AIR CONDITIONING MECHANIC PM AIRCRAFT AIR CONDITIONING MECHANIC Fredis Simmons MD LAB_1 Performing Organization Address [facility] Phon e Number [address] [address] [place], [place] [phone] HEMOGRAM+PLATELETS (02/07/2001 5:36 PM AIRCRAFT AIR CONDITIONING MECHANIC) P athologist Signature WBC 10.2 4.5 - [...] Volume Laterality 02/07/2001 5:36 PM 1 5:51 AIRCRAFT AIR CONDITIONING MECHANIC PM AIRCRAFT AIR CONDITIONING MECHANIC Fredis Simmons MD LAB_1 Performing Organization Address [facility] Phon e Number [address] [address] [place], [place] [phone] documented in this encounter Visit Diagnoses Not on filedocumented in this encounter Care Teams Science Faculty Member Relationship Specialty Start Date End Date No Primary/Referring, Phy PCP - General 08/30/11 documented as of this encounter
--- OUTSIDE RECORDS SUMMARY | 2022-02-16 12:33 | XMS_ITS | Encounter Summary ---
:1955 Author Organization [facility] Address [address] [place] [address] Care Team Providers Name Role Phone Unassigned, Provider Primary Care Provider Unavailable Encounter Details Date Type Department Care Team Description 02/10/2001 Office Visit [facility] Frank, [facility]; [facility] PROLAPSE OF VAGINAL WALL [facility] [address] [place] [address] Social History Tobacco Use Types Packs/Day Years Used Date Smoking Tobacco: Never Assessed Sex Assigned at Date Recorded Not on file documented as of this encounter Plan of Treatment Not on filedocumented as of this encounter Visit Diagnoses Diagnosis Unspecified urinary incontinence Prolapse of vaginal dill Prolapse of vaginal dill without mentio n of uterine prolapse documented in this encounter Care Teams Dice Dealer Relationship Specialty Start Date End Date Unassigned, Provider PCP - General 01/12/00 08/29/[address] [place] [address] documented as of this encounter
--- OUTSIDE RECORDS SUMMARY | 2022-02-16 12:33 | XMS_ITS | Encounter Summary ---
:1955 Author Organization [facility] Address [address] [place] [address] Care Team Providers Name Role Phone No Primary/Referring, Phy Primary Care Provider Unavailable Encounter Details Date Type Department Care Team Description 02/07/2001 Orders Only Fredis Yan MD [address] [place], [place] [address] [place] [address] [phone] (Wo rk) Social History Tobacco Use Types Packs/Day Years Used Date Smoking Tobacco: Never Assessed Sex Assigned at Date Recorded Not on file documented as of this encounter Plan of Treatment Not on filedocumented as of this encounter Procedures Procedure Name Priority Date/Time Associated Comments Diagnosis UA, MICROSCOPIC IF Waiting 02/07/2001 5:36 PM Res ults for this MEETS CRITERIA STUDENT LIFE VICE PRESIDENT procedure are in the results section. UA MACRO BILLING Routine 02/07/2001 5:36 PM Resul ts for this STUDENT LIFE VICE PRESIDENT procedure are i n the results section. documented in this encounter Results UA MICROSCOPIC IF (02/07/2001 5:36 PM STUDENT LIFE VICE PRESIDENT) [facility] Method Time Signature Urine Microscopic [facility] Comments exam not indicated Urine Color Yellow [facility] Urine Clarity Clear [facility] Specific 1.011 1.005 - [facility] [place] 1.030 pH, Urine 5.0 4.5 - 8.0 [...] Volume Laterality 02/07/2001 5:36 PM 1 5:49 STUDENT LIFE VICE PRESIDENT PM STUDENT LIFE VICE PRESIDENT Fredis Simmons MD LAB_1 Performing Organization Address [facility]/ZIP [facility] Phon e Number [address] [address] [place], [place] [phone] UA MACRO BILLING (02/07/2001 5:36 PM STUDENT LIFE VICE PRESIDENT) [facility] gist Method Time Signature Bill, UA Billed for [facility] Macroscopic Services Performed Specimen Anatomical Collection Method Collection Time Receive d Time (Source) Location / / Volume Laterality 02/07/2001 5:36 PM 1 5:49 STUDENT LIFE VICE PRESIDENT PM STUDENT LIFE VICE PRESIDENT Fredis Simmons MD LAB_1 Performing Organization Address City/[facility] Phon e Number [address] [address] [place], [place] [phone] documented in this encounter Visit Diagnoses Not on filedocumented in this encounter Care Teams Salesperson Hearing Aids Relationship Specialty Start Date End Date No Primary/Referring, Phy PCP - General 08/30/11 documented as of this encounter
--- OUTSIDE RECORDS SUMMARY | 2022-02-16 12:33 | XMS_ITS | Encounter Summary ---
:1955 Author Organization [facility] Address [address], [place] [address] Care Team Providers Name Role Phone Unassigned, Provider Primary Care Provider Unavailable Encounter Details Date Type Department Care Team Description 02/09/2001 Office Visit Emergency Dept MULTIPLE SCLEROSIS [address] [place] [address] Social History Tobacco Use Types Packs/Day Years [...] upper and lower extremities. Equal and bilateral fibre technologist strength. She was ambulatory. Pinprick sensation to the entire right lower extremity up to the groin was abnormal. She could not discern between sharp or dull. Gross sensation was somewhat decreased compared to the left leg. EMERGENCY MEDICINE DEPARTMENT COURSE: We are going to give her the gram of Rocephin as requested by the family medical service. She is to return here tomorrow and the next day to the chemotherapy clinic to get another gram and then followup with her primary medical doctor. FINAL IMPRESSION 1. Multiple sclerosis. 2. Solu-Medrol treatment. Followup with family practice at next available appointment. bkl Dictated: 02/09/2001 14:45:54 Harry Ardon DO Transcribed: 02/11/2001 03:32:07 Patient seen with Ho Diaz MD Doc #: [id number] cc: Betty Linares MD, Primary Alonso Hoover MD, Referring 1 Page 1 Patient Name: YARY PHILIPPE Visit Date: 02/09/2001 EMERGENCY MEDICINE NOTE CONFIDENTIAL MEDICAL RECORD [address] [address] Page 1 Patient: YARY [facility]ILIPPE [facility] 1955 Visit Date: 02/09/2001 EMERGENCY MEDICINE NOTE TION ELECTRICIAN documented in this encounter Plan of Treatment Not on filedocumented as of this encounter Visit Diagnoses Diagnosis Multiple sclerosis (HRC) Multiple sclerosis documented in this encounter Care Teams Patient Svcs Mgr Relationship Specialty Start Date End Date Unassigned, Provider PCP - General 01/12/00 08/29/[address] [place] [address] documented as of this encounter
--- OUTSIDE RECORDS SUMMARY | 2022-02-16 12:33 | XMS_ITS | Encounter Summary ---
:1955 Author Organization [facility] Address [address] [place] [address] Care Team Providers Name Role Phone No Primary/Referring, Phy Primary Care Provider Unavailable Encounter Details Date Type Department Care Team Description 01/10/2001 Orders Only Braydon Jackson MD [address] [place] [address] [place], [place] [phone] (Wo rk) Social History Tobacco Use Types [...] UA CONDITIONAL UC (01/10/2001 3:06 PM CDT) [facility] Method Time Signature Conditional UC Not [facility] Culture Indicated Urine Comments Microscopic [facility] exam not indicated Urine Comments Epithelial [facility] Cells Seen Urine Color Yellow [facility] Urine Clarity Hazy [facility] Specific 1.025 1.005 - [facility] [place],Ur 1.030 pH, Urine 5.0 4.5 - 8.0 [...] Organization Address City/State/ZIP Code Phon e Number [address] [address] [place], [place] [phone] documented in this encounter Visit Diagnoses Not on filedocumented in this encounter Care Teams Manager Internship Relationship Specialty Start Date End Date No Primary/Referring, Phy PCP - General 08/30/11 documented as of this encounter
--- OUTSIDE RECORDS SUMMARY | 2022-02-16 12:33 | XMS_ITS | Encounter Summary ---
:1955 Author Organization [facility] Address [address] [place] [address] Care Team Providers Name Role Phone Unassigned, [...] documented as of this encounter Progress Notes Zoë Ramirez Betty - 08/16/2000 12:00 AM CDTSubjective: The patient [...] 08/16/2000 12:00:00 Transcribed: 08/22/2000 08:31:02 Doc #: [id number] PATIENT NAME: YARY PHILIPPE VISIT DATE: 08/16/2000 AGE: 45Y [facility] Provider Signature Page 2 Confidential Medical Record [facility] [address] [place] [address] ?? [place] [address] Page Patient: YARY PHILIPPE Carmita Visit Date: 08/16/2000 Betty Linares MD Date of : 1955 VISIT DATE: 08/16/2000 AGE: 45Y [facility] Provider Signature documented in this encounter Plan of Treatment Not on filedocumented as of this encounter Visit Diagnoses Diagnosis Multiple sclerosis (HRC) Multiple sclerosis Unspecified essential hypertension (HRC) Unspecified essential hypertension Examination of eyes and vision documented in this encounter Care Teams Placement Interviewer Relationship Specialty Start Date End Date Unassigned, Provider PCP - General 01/12/00 08/29/[address] [place] [address] documented as of this encounter
--- OUTSIDE RECORDS SUMMARY | 2022-02-16 12:33 | XMS_ITS | Encounter Summary ---
:1955 Author Organization [facility] Address [address] [place] [address] Care Team Providers Name Role Phone Unassigned, Provider Primary Care Provider Unavailable Encounter Details Date Type Department Care Team Description 02/07/2001 [facility] Y Daquan Yates MD [address], [place] [address] M[facility]IP[facility] SCLEROSIS; [address] [facility] [address] [place], [place] [phone] SKIN SENSATION DISTURB; [place] [address] PAIN IN LIMB; COUGH; HYPERTENSION NO S; ESOPHAGEAL REFL UX; SCREENING-CARDI OVASC NEC Social History Tobacco Use Types Packs/Day Years Used Date Smoking Tobacco: Never Assessed Sex Assigned at Date Recorded Not on file documented as of this encounter Discharge Summaries Audra Sabina - 02/07/2001 12:00 AM CSTDISCHARGE DIAGNOSIS: Multiple [...] been followed by Dr Marcello Monterroso at [facility]. She has had flare-ups in [...] dictated admission history and physical, Job ID# [id number]. Her vital signs were stable on admission. Positive findings on her examination were: Cranial nerves II through XII grossly intact. Motor: Strength 5/5 in the lower limbs, 5/5 in the left upper limb, and 3/5 in the right upper limb. DTRs 2+ and symmetrical. Babinski's downgoing. She has decreased sensation down her right leg and right foot on the dorsal side. Drjnaj-on-tlkr coordination test: She had intention tremor, and [...] primary medical doctor in one week at [facility], and she was given instructions to go to emergency room for Solu-Medrol IV on February 09, 2001. She also was told to get the rest of her Solu-Medrol doses, 2 days' doses, at chemotherapy infusion room at [facility]. She got 2 doses of intravenous Solu-Medrol before she was discharged home. She is to follow up with neurology clinic in 2-[address] Espinoza. [facility] Dictated: 02/15/2001 12:54:06 Sabina Zhu MD Transcribed: 02/17/2001 10:50:50 Patient seen with Doc #: [id number] cc: Betty Linares MD, Primary Daquan Nunez MD, Attending Alonso Hoover MD, Referring 2 Page 2 Patient Name: YARY PHILIPPE DISCHARGE SUMMARY CONFIDENTIAL MEDICAL RECORD [address] [address] Page 1 Patient: YARY PHILIPPE Location: [facility] HPN: Admit Date: 02/07/2001 Date of : 1955 Discharge Date: 02/08/2001 DISCHARGE SUMMARY OPERATOR documented in this encounter Progress Notes Daquan [...] Nunez MD Transcribed: 02/11/2001 03:46:26 Doc #: [id number] cc: Betty Linares MD, Primary Alonso Hoover MD, Referring 1 Page 1 Patient Name: YARY PHILIPPE INTERIM SUMMARY CONFIDENTIAL MEDICAL RECORD [address] [address] Page 1 Patient: YARY PHILIPPE Location: -[facility] HPN: Admit Date: 02/07/2001 Date of : 1955 Discharge Date: 02/08/2001 INTERIM SUMMARY OPERATOR documented in this encounter Consult Notes Rj Mckeon - 02/07/2001 12:00 AM CSTNEUROLOGY CONSULTATION DATE OF CONSULTATION: 02/08/2001. REQUESTING PHYSICIAN: Aileen Estes MD REASON FOR CONSULTATION: Multiple sclerosis exacerbation, evaluation and plan for treatment. HISTORY OF PRESENT ILLNESS: The patient is a 45-year-old woman with a past medical history of multiple sclerosis who is the past has been followed at [facility] by Dr. Espinoza in the Neurology [...] Mckeon MD Transcribed: 02/09/2001 18:36:45 Doc #: [id number] cc: MD Betty cMcollum MD, Primary Alonso Hoover MD, Referring Daquan Nunez MD, Attending 2 Page 2 Patient Name: YARY PHILIPPE CONSULTATION CONFIDENTIAL MEDICAL RECORD [address] [address] Page 1 Patient: YARY PHILIPPE Location: [facility] HPN: Admit Date: 02/07/2001 Date of : 1955 Discharge Date: 02/08/2001 CONSULTATION OPERATOR documented in this encounter OR Notes H&P [...] by Dr Marcello Monterroso, a neurologist at [facility], but she has not seen [...] dorsal side. Vibration and position sense normal. Gvywwp-xx-jzkz coordination test: She has intention tremors. She has some cerebellar signs on exam. She also has tremor of both hands, mostly in the left hand. Gait: She drags her feet, mainly on the right side. LABORATORY DATA: White count 10.2, hemoglobin 13.3, platelets 331. Sodium 134, potassium 3.9, BUN 17, creatinine 0.7, chloride 99, bicarbonate 25, calcium 8.9. ASSESSMENT ~ PLAN: Qzbls-ykh-xylj-old woman here with multiple sclerosis exacerbation. 1. [...] Zhu MD Transcribed: 02/07/2001 20:47:37 Doc #: [id number] cc: Betty Linares MD, Primary Physician Aileen Estes MD, Attending Physician Alonso Hoover MD, Referring Physician 2 Page 2 Patient Name: YARY PHILIPPE HISTORY ~ PHYSICAL CONFIDENTIAL MEDICAL RECORD [address] [address] Page 1 Patient: YARY PHILIPPE Location: HPN: Admit Date: 02/07/2001 Date of : 1955 HISTORY ~ PHYSICAL OPERATOR documented in this encounter ED Notes Jeaneth [...] [facility]. glt Dictated: 02/07/2001 18:42:39 Jeaneth Pearl MD Transcribed: 02/08/2001 06:13:05 Patient seen with Luis Joseph MD Doc #: [id number] cc: Betty Linares MD, primary 1 Page 1 Patient Name: YARY PHILIPPE Visit Date: 02/07/2001 EMERGENCY MEDICINE NOTE CONFIDENTIAL MEDICAL RECORD [address] [phone] Page 1 Patient: [facility]IPPE [facility] 1955 Visit Date: 02/07/2001 EMERGENCY MEDICINE NOTE OPERATOR documented in this encounter Plan of Treatment Not on filedocumented as of this encounter Procedures Procedure Name Priority Date/Time Associated Diagnosis Comme nts CHEST PA/LATERAL Routine 02/07/2001 5:53 PM Resul ts for this SKIP OPERATOR procedure are i n the results section. documented in this encounter Results CHEST PA/LATERAL (02/07/2001 5:53 PM SKIP OPERATOR) [facility] Method Time Signature Chest AP/PA + CHEST, PA AND LATERAL 02/07/2001: [facility] Lateral 2 CLINICAL HISTORY: Cough. RADIO LOGY Views Lung etienne appear clear. Heart and pulmonary vasculature are within normal limits. IMPRESSION: Negative chest. Anatomical Region Laterality Modality Other Specimen (Source) Anatomical Collection Method Collection Time Re ceived Time Location / / Volume Laterality 02/07/2001 5:53 PM SKIP OPERATOR Fredis Simmons MD RAD GENERAL DIAGNOSTIC/RH documented in this encounter Visit Diagnoses Diagnosis Multiple sclerosis (HRC) Multiple sclerosis Disturbance of skin sensation Pain in limb Cough Unspecified essential hypertension (HRC) Unspecified essential hypertension Esophageal reflux Screening for other and unspecified card iovascular conditions documented in this encounter Care Teams Retail Wireless Sales Consultant Relationship Specialty Start Date End Date Unassigned, Provider PCP - General 01/12/00 08/29/[address] [place] [address] documented as of this encounter
--- OUTSIDE RECORDS SUMMARY | 2022-02-16 12:33 | XMS_ITS | Encounter Summary ---
:1955 Author Organization [facility] Address [address] [place] [address] Care Team Providers Name Role Phone Unassigned, Provider Primary Care Provider Unavailable Encounter Details Date Type Department Care Team Description 11/14/2000 Office Visit [facility] Betty Montalvo MULTIPL E SCLEROSIS [facility] MD Social History Tobacco Use [...] Aciphex tablets 20 mg. She'll talk with India Valenzuela about the prescription medication program. Follow up willie coronel Dictated: 11/14/2000 14:42:17 Transcribed: 11/15/2000 14:42:12 Doc #: [id number] PATIENT NAME: YARY PHILIPPE VISIT DATE: 11/14/2000 AGE: 45Y [facility] Provider Signature Page 1 Confidential Medical Record [facility] [address] [place] [address] ?? [place] [address] Page Patient: YARY PHILIPPE Visit Date: 11/14/2000 Betty Linares MD Date of : 1955 VISIT DATE: 11/14/2000 AGE: 45Y [facility] Provider Signature Betty Montalvo - 11/14/2000 [...] 11/14/2000 14:42:17 Transcribed: 11/15/2000 14:45:04 Doc #: [id number] PATIENT NAME: YARY PHILIPPE VISIT DATE: 11/14/2000 AGE: 45Y [facility] Provider Signature Page 1 Confidential Medical Record [facility] [address] [facility] ?? [place] [address] Page Patient: YARY PHILIPPE Visit Date: 11/14/2000 Betty Linares MD Date of : 1955 VISIT DATE: 11/14/2000 AGE: 45Y [facility] Provider Signature documented in this encounter Plan of Treatment Not on filedocumented as of this encounter Visit Diagnoses Diagnosis Multiple sclerosis (HRC) Multiple sclerosis documented in this encounter Care Teams Assistant Shift Supervisor Relationship Specialty Start Date End Date Unassigned, Provider PCP - General 01/12/00 08/29/[address] [place] [address] documented as of this encounter
--- OUTSIDE RECORDS SUMMARY | 2022-02-16 12:33 | XMS_ITS | Encounter Summary ---
:1955 Author Organization [facility] Address [address], [place] [address] Care Team Providers Name Role Phone Unassigned, Provider Primary Care Provider Unavailable Encounter Details Date Type Department Care Team Description 01/28/2001 Office Visit [facility] Sabina Zhu MD [facility] [address] [place] [address] (Wo rk) Social History Tobacco [...] 01/28/2001 14:25:00 Transcribed: 01/31/2001 10:32:00 Doc #: [id number] PATIENT NAME: YARY PHILIPPE VISIT DATE: 01/28/2001 AGE: 45Y [facility] Provider Signature Page 2 Confidential Medical Record [facility] [address] [place] [address] ?? [place] [address] Page Patient: YARY PHILIPPE Visit Date: 01/28/2001 Sabina Zhu MD Date of : 1955 VISIT DATE: 01/28/2001 AGE: 45Y [facility] Provider Signature E EDITOR documented in this encounter Plan of Treatment Not on filedocumented as of this encounter Visit Diagnoses Not on filedocumented in this encounter Care Teams Board Mill Supervisor Relationship Specialty Start Date End Date Unassigned, Provider PCP - General 01/12/00 08/29/[address] [place] [address] documented as of this encounter
--- OUTSIDE RECORDS SUMMARY | 2022-02-16 12:34 | XMS_ITS | Encounter Summary ---
:1955 Author Organization [facility] Address [address] [place] [address] Care Team Providers Name Role Phone Unassigned, Provider Primary Care Provider Unavailable Reason for Visit Reason Comments MULTIPLE SCLEROSIS Leg pain/spasms. Medication Request Encounter Details Date Type Department Care Team Description 02/04/2000 Telephone Careline Mounika Roca, MULTIPLE SCLEROSIS [address] RN (Leg pain/spasms.); [place], [place] [phone] [facility] Medication Request [phone] [place] [address] (Wo rk) Social History Tobacco Use Types Packs/Day Years Used Date Smoking Tobacco: Never Assessed Sex Assigned at Date Recorded Not on file documented as of this encounter Nursing Notes 02/04/2000 11:59 PM LINING BRUSHER >> MOUNIKA Bragg Feb 04, 2000 9:53 [...] Castañeda. He recommends pt be seen in [facility] or with Dr. Rollins tomorrow.Doctor is not [...] on filedocumented in this encounter Care Teams User Experience Team Lead Relationship Specialty Start Date End Date Unassigned, Provider PCP - General 01/12/00 08/29/[address] [place] [address] documented as of this encounter
--- OUTSIDE RECORDS SUMMARY | 2022-02-16 12:34 | XMS_ITS | Encounter Summary ---
:1955 Author Organization [facility] Address [address] [place] [address] Care Team Providers Name Role Phone Unassigned, [...] prescriptions documented in this encounter Care Teams Blow Up Operator Relationship Specialty Start Date End Date Unassigned, Provider PCP - General 01/12/00 08/29/[address] [place] [address] documented as of this encounter
--- OUTSIDE RECORDS SUMMARY | 2022-02-16 12:34 | XMS_ITS | Encounter Summary ---
:1955 Author Organization Formerly [facility] Address [address] [place] [address] Care Team Providers Name Role Phone Unavailable [...]
--- OUTSIDE RECORDS SUMMARY | 2022-02-16 12:34 | XMS_ITS | Encounter Summary ---
:1955 Author Organization Formerly [facility] [address], [place] [address] Care Team Providers Name Role Phone Unassigned, Provider Primary Care Provider Unavailable Encounter Details Date Type Department Care Team Description 04/10/2000 Scanned History [facility] Jordan Muniz UPPER ENDOSCOPY Gastroenterology MD Carmita [address] [place] [address] Social History Tobacco Use Types Packs/Day Years Used Date Smoking Tobacco: Never Assessed Sex Assigned at Date Recorded Not on file documented as of this encounter Plan of Treatment Not on filedocumented as of this encounter Visit Diagnoses Not on filedocumented in this encounter Care Teams Drill Rig Operator Relationship Specialty Start Date End Date Unassigned, Provider PCP - General 01/12/00 08/29/[address] [place] [address] documented as of this encounter
--- OUTSIDE RECORDS SUMMARY | 2022-02-16 12:34 | XMS_ITS | Encounter Summary ---
:1955 Author Organization [facility] Address [address] [place] [address] Care Team Providers Name Role Phone Unavailable Primary Care Provider Unavailable Reason for Visit Reason Comments CONSULT VIA INTERFACE Encounter Details Date Type Department Care Team Description 12/05/1999 Office Visit [facility] Marecllo Monterroso MD MULTIPLE SCLEROSIS; [address] [facility]. . ANXIETY DISORDER NOS [place], [place] [address] Social History Tobacco Use Types [...] Position sense is intact at the toes. Kqqeaw-er-hkwq and ubqc-bh-qfeu normal. Gait is variably unsteady. It seems when the patient is not aware of being watched that she does better. ASSESSMENT: Probable multiple sclerosis. Anxiety. History of bipolar affective disorder. PLAN: Will give Yary a small prescription for Ativan .5 mg, 1/ 2 to 1 po TID, no refills. Strongly urged her to see her psychiatrist, Dr. Coley, at [facility] and she says she has an appointment. I have asked her to call me with the appointment date to confirm this. Will send for her records from the [facility] and I will see her back in six weeks to follow-up. cc: Betty Linares MD documented in this encounter Plan of Treatment Not on filedocumented as of this encounter Visit Diagnoses Diagnosis Multiple sclerosis (HRC) Multiple sclerosis Anxiety state, unspecified (HRC) Anxiety state, unspecified documented in this encounter
--- OUTSIDE RECORDS SUMMARY | 2022-02-16 12:34 | XMS_ITS | Encounter Summary ---
:1955 Author Organization [facility] Address [address] [place] [address] Care Team Providers Name Role Phone Unavailable Primary Care Provider Unavailable Reason for Visit Reason Comments NUMBNESS throat BREATHING PROBLEM allergies and MS numbness. Encounter Details Date Type Department Care Team Description 11/26/1999 Telephone Careline Lillian Holcomb NUMBNESS (throat); [address], RN BREATHING [place]OBLE[place], [place] [address] [facility] (allergies and MS [phone] BUILDING numbness. ) [address] [facility] [address] Social History Tobacco Use Types Packs/Day Years [...] sentences. has seasonal allergies. has been at [facility] in past with a spe cilaist who she sees for the MS.had been hospitalized in past for that there. documented in this encounter Plan of Treatment Not on filedocumented as of this encounter Visit Diagnoses Not on filedocumented in this encounter
--- OUTSIDE RECORDS SUMMARY | 2022-02-16 12:34 | XMS_ITS | Encounter Summary ---
:1955 Author Organization [address] [address] Care Team Providers Name Role Phone Unavailable Primary Care Provider Unavailable Encounter Details Date Type Department Care Team Description 08/10/1999 Office Visit [facility] SHORT NESS OF BREATH Pulmonary [address] [place] [address] Social History Tobacco Use Types Packs/Day Years Used Date Smoking Tobacco: Never Assessed Sex Assigned at Date Recorded Not on file documented as of this encounter Plan of Treatment Not on filedocumented as of this encounter Visit Diagnoses Diagnosis Shortness of breath documented in this encounter
--- OUTSIDE RECORDS SUMMARY | 2022-02-16 12:34 | XMS_ITS | Encounter Summary ---
:1955 Author Organization [facility] Address [address], [place] [address] Care Team Providers Name Role Phone Unassigned, Provider Primary Care Provider Unavailable Reason for Visit Reason Comments Follow-up, NOS VIA INTERFACE Encounter Details Date Type Department Care Team Description 01/24/2000 Office Visit [facility] Marcello Monterroso, MULTIPLE SCLEROSIS; [address] Gabbi LOUIS BIPOLAR AFFECTIVE NOS [place], [place] [address] Social History Tobacco Use Types [...] unspecified documented in this encounter Care Teams Breaker Oiler Relationship Specialty Start Date End Date Unassigned, Provider PCP - General 01/12/00 08/29/[address] [place] [address] documented as of this encounter
--- OUTSIDE RECORDS SUMMARY | 2022-02-16 12:34 | XMS_ITS | Encounter Summary ---
:1955 Author Organization Pending sale to [facility] Address [address] [place] [address] Care Team Providers Name Role Phone Unavailable Primary Care Provider Unavailable Encounter Details Date Type Department Care Team Description 09/29/1999 Office Visit [facility] Zoë Ramirez, MYALGIA AND M YOSITIS NOS; [facility] [...]
--- OUTSIDE RECORDS SUMMARY | 2022-02-16 12:34 | XMS_ITS | Encounter Summary ---
:1955 Author Organization [facility] Address [address] [place] [address] Care Team Providers Name Role Phone Unavailable Primary Care Provider Unavailable Reason for Visit Reason Comments INJURY, BACK Encounter Details Date Type Department Care Team Description 09/29/1999 Telephone Careline Farhana You RN INJURY, BACK [address] [place], [place] [address] [place] [address] Social History Tobacco Use Types Packs/Day Years [...] percoset and flexoril. PLAN: consult ana LOUIS directional drill operator-Family Medicine Attending: recommend patient be seen in ER for re-evaluation and possible admission or change in pain medication. - Farhana You Started and completed on SatSep 29, 1999 5:40 PM documented in this encounter Plan of Treatment Not on filedocumented as of this encounter Visit Diagnoses Not on filedocumented in this encounter
--- OUTSIDE RECORDS SUMMARY | 2022-02-16 12:34 | XMS_ITS | Encounter Summary ---
:1955 Author Organization Formerly [facility] Address [address] [place] [address] Care Team Providers Name Role Phone Unavailable Primary Care Provider Unavailable Encounter Details Date Type Department Care Team Description 08/15/1999 Office Visit [facility] Ben Chávez, CERVICALGIA Clinic FOREST EXAMINER, POLISHER HAND [address] [place], [place] [address] (Wo rk) Social History Tobacco Use Types Packs/Day Years Used Date Smoking Tobacco: Never Assessed Sex Assigned at Date Recorded Not on file documented as of this encounter Plan of Treatment Not on filedocumented as of this encounter Visit Diagnoses Diagnosis Cervicalgia documented in this encounter
--- OUTSIDE RECORDS SUMMARY | 2022-02-16 12:34 | XMS_ITS | Encounter Summary ---
:1955 Author Organization [facility] [address], [place] [address] Care Team Providers Name Role Phone Unassigned, Provider Primary Care Provider Unavailable Encounter Details Date Type Department Care Team Description 02/09/2000 Office Visit [facility] Shane Dominguez MD CHEST PAIN NOS Cardiology [facility] [address] [place] [address] [address] [facility] [phone] [place], [place] [address] (Wo rk) Social History Tobacco Use Types Packs/Day Years Used Date Smoking Tobacco: Never Assessed Sex Assigned at Date Recorded Not on file documented as of this encounter Plan of Treatment Not on filedocumented as of this encounter Visit Diagnoses Diagnosis Chest pain, unspecified documented in this encounter Care Teams Machines Technician Relationship Specialty Start Date End Date Unassigned, Provider PCP - General 01/12/00 08/29/11 [address] [place] [address] documented as of this encounter
--- OUTSIDE RECORDS SUMMARY | 2022-02-16 12:34 | XMS_ITS | Encounter Summary ---
:1955 Author Organization [facility] Address [address] [place] [address] Care Team Providers Name Role Phone Unavailable Primary Care Provider Unavailable Encounter Details Date Type Department Care Team Description 11/26/1999 Office Visit [facility] Nereida Tyson, MULTIPLE SCLEROSIS; [facility] SKIN SENSATION DISTURB [address] [place], [place] [address] Social History Tobacco Use Types Packs/Day Years Used Date Smoking Tobacco: Never Assessed Sex Assigned at Date Recorded Not on file documented as of this encounter Plan of Treatment Not on filedocumented as of this encounter Visit Diagnoses Diagnosis Multiple sclerosis (HRC) Multiple sclerosis Disturbance of skin sensation documented in this encounter
--- OUTSIDE RECORDS SUMMARY | 2022-02-16 12:34 | XMS_ITS | Encounter Summary ---
:1955 Author Organization [facility] Address [address] [place] [address] Care Team Providers Name Role Phone Unassigned, Provider Primary Care Provider Unavailable Encounter Details Date Type Department Care Team Description 03/13/2000 Orders Only Epic, [place] [address] Social History Tobacco Use Types Packs/Day Years Used Date Smoking Tobacco: Never Assessed Sex Assigned at Date Recorded Not on file documented as of this encounter Plan of Treatment Not on filedocumented as of this encounter Visit Diagnoses Not on filedocumented in this encounter Care Teams Quality Assurance Supervisor Trim Relationship Specialty Start Date End Date Unassigned, Provider PCP - General 01/12/00 08/29/[address] [place] [address] documented as of this encounter
--- OUTSIDE RECORDS SUMMARY | 2022-02-16 12:34 | XMS_ITS | Encounter Summary ---
:1955 Author Organization [facility] Address [address] [place] [address] Care Team Providers Name Role Phone Unassigned, Provider Primary Care Provider Unavailable Encounter Details Date Type Department Care Team Description 04/10/2000 Office Visit Leroy Leal MD DYSPHAGIA; [address] ESOPHAGEAL REFLUX [place], [place] [address] (Wo rk) Social History Tobacco Use Types Packs/Day Years Used Date Smoking Tobacco: Never Assessed Sex Assigned at Date Recorded Not on file documented as of this encounter Plan of Treatment Not on filedocumented as of this encounter Visit Diagnoses Diagnosis Dysphagia Esophageal reflux documented in this encounter Care Teams Pole Climber Relationship Specialty Start Date End Date Unassigned, Provider PCP - General 01/12/00 08/29/11 [address] [place] [address] documented as of this encounter
--- OUTSIDE RECORDS SUMMARY | 2022-02-16 12:34 | XMS_ITS | Encounter Summary ---
:1955 Author Organization [facility] Address [address] [place] [address] Care Team Providers Name Role Phone Unassigned, Provider Primary Care Provider Unavailable Reason for Visit Reason Comments DIARRHEA VIA INTERFACE Encounter Details Date Type Department Care Team Description 03/13/2000 Office Visit [facility] Blanka ury DIARRHEA NOS [address] [place] [address] Social History Tobacco Use Types Packs/Day Years Used Date Smoking Tobacco: Never Assessed Sex Assigned at Date Recorded Not on file documented as of this encounter Progress Notes AdamKarlaLexy J - 03/13/2000 12:00 AM CSTS: Patient comes [...] M.D. if this is not resolving. cc: CHECK ATTENDANT documented in this encounter Plan of Treatment Not on filedocumented as of this encounter Visit Diagnoses Diagnosis Diarrhea documented in this encounter Care Teams Box Strapper Relationship Specialty Start Date End Date Unassigned, Provider PCP - General 01/12/00 08/29/[address] [place] [address] documented as of this encounter
--- OUTSIDE RECORDS SUMMARY | 2022-02-16 12:34 | XMS_ITS | Encounter Summary ---
:1955 Author Organization [employer] Address [address] [place] [address] Care Team Providers Name Role Phone Unavailable Primary Care Provider Unavailable Reason for Visit Reason Comments BACK PAIN, LOW Encounter Details Date Type Department Care Team Description 09/19/1999 Telephone CareKarli Eldridge RN BACK PAIN, LOW [address] [place], [place] [address] [phone] [place] [address] Social History Tobacco Use Types Packs/Day Years Used Date Smoking Tobacco: Never Assessed Sex Assigned at Date Recorded Not on file documented as of this encounter Nursing Notes 09/19/1999 11:59 PM CDT - Karli Nunez Started and completed on SatSep 19, 1999 9:00 PM pt calls back to [facility] to inform that she is going to [facility]. note faxed to [facility] - Komal Sheehan Started on SatSep 19, [...]
--- OUTSIDE RECORDS SUMMARY | 2022-02-16 12:34 | XMS_ITS | Encounter Summary ---
:1955 Author Organization [facility] Address [address] [place] [address] Care Team Providers Name Role Phone Unavailable Primary Care Provider Unavailable Encounter Details Date Type Department Care Team Description 09/20/1999 Office Visit [facility] Steve Hargrove M D SPRAIN L[facility]BAR [facility] [address] [place], [place] [address] Social History Tobacco Use Types Packs/Day Years Used Date Smoking Tobacco: Never Assessed Sex Assigned at Date Recorded Not on file documented as of this encounter Plan of Treatment Not on filedocumented as of this encounter Visit Diagnoses Diagnosis Sprain of lumbar region documented in this encounter
--- OUTSIDE RECORDS SUMMARY | 2022-02-16 12:34 | XMS_ITS | Encounter Summary ---
:1955 Author Organization [facility] Address [address] [place] [address] Care Team Providers Name Role Phone Unavailable Primary Care Provider Unavailable Encounter Details Date Type Department Care Team Description 09/28/1999 Office Visit [facility] LOW BACK PAIN(ACUTE)<6 WEEKS ; [address] [facility] SPASM OF MUSCLE; [place] [address] RIDDEN ANIMAL ACC-RIDER [phone] Social History Tobacco Use Types Packs/Day Years [...]
--- OUTSIDE RECORDS SUMMARY | 2022-02-16 12:34 | XMS_ITS | Encounter Summary ---
:1955 Author Organization [facility] Address [address], [place] [address] Care Team Providers Name Role Phone Unavailable Primary Care Provider Unavailable Encounter Details Date Type Department Care Team Description 11/22/1999 Office Visit [facility] MULTIPLE SCLEROSIS; [facility] AMD ALLERGIC RHINITIS NOS; UNASSIGNED CLINI C BIPOLAR AFFECTIVE NOS [address] [place] [address] Social History Tobacco Use Types Packs/Day Years [...]
--- OUTSIDE RECORDS SUMMARY | 2022-02-16 12:34 | XMS_ITS | Encounter Summary ---
:1955 Author Organization [facility] Address [address] [place] [address] Care Team Providers Name Role Phone Unavailable [...]
--- OUTSIDE RECORDS SUMMARY | 2022-02-16 12:34 | XMS_ITS | Encounter Summary ---
:1955 Author Organization [facility] Address [address] [place] [address] Care Team Providers Name Role Phone Unavailable [...]
--- OUTSIDE RECORDS SUMMARY | 2022-02-16 12:34 | XMS_ITS | Encounter Summary ---
:1955 Author Organization [facility] Address [address] [place] [address] Care Team Providers Name Role Phone Unassigned, Provider Primary Care Provider Unavailable Encounter Details Date Type Department Care Team Description 01/31/2000 Office Visit [facility], [facility] RUT N NOS; [facility] Clinic MD Cata MALIGNANT HYPERTENSION; UNASSIGNED CLINI C HYPERTENSION NOS [address] [place] [address] Social History Tobacco Use Types Packs/Day Years Used Date Smoking Tobacco: Never Assessed Sex Assigned at Date Recorded Not on file documented as of this encounter Plan of Treatment Not on filedocumented as of this encounter Visit Diagnoses Diagnosis Chest pain, unspecified Essential hypertension, malignant (HRC) Essential hypertension, malignant Unspecified essential hypertension (HRC) Unspecified essential hypertension documented in this encounter Care Teams Environmental Services Worker Relationship Specialty Start Date End Date Unassigned, Provider PCP - General 01/12/00 08/29/[address] [place] [address] documented as of this encounter
--- OUTSIDE RECORDS SUMMARY | 2022-02-16 12:34 | XMS_ITS | Encounter Summary ---
:1955 Author Organization [facility] Address [address] [place] [address] Care Team Providers Name Role Phone Unavailable Primary Care Provider Unavailable Reason for Visit Reason Comments BACK PAIN Encounter Details Date Type Department Care Team Description 10/04/1999 Telephone Careline Fabiola Jacobs RN BACK PAIN; ([place] [address] [facility]) [place], [place] [address] [address] [facility] [phone] [place] [address] Social History Tobacco Use Types Packs/Day Years Used Date Smoking Tobacco: Never Assessed Sex Assigned at Date Recorded Not on file documented as of this encounter Nursing Notes 10/04/1999 11:59 PM CDT Addended by: VERONIQUE JACOBS on: 10/04/1999,9:04 PM Modules accepted: Progress Notes Dr. Lola zhong ret call at 8:35pm and stated she would try to call in Percocet to the [facility] outpt pharmacy and then call me back. Dr. Zhang called back at 8:55pm and stated she could not call the Percocet in o ceci the phone and she called in Tyl #3 with codiene for pt. Called pt back and told [...] Pt w as brought by ambulance to [facility], pt was sent home. There was no [...] be seen in ER and she refused. Paged manager distribution for [facility] at 8:04pm.. - Veronique Jacobs Started and completed on SatOct 04, 1999 8:15 PM ------- documented in this encounter Plan of Treatment Not on filedocumented as of this encounter Visit Diagnoses Not on filedocumented in this encounter
--- OUTSIDE RECORDS SUMMARY | 2022-02-16 12:34 | XMS_ITS | Encounter Summary ---
:1955 Author Organization [facility] Address [address], [place] [address] Care Team Providers Name Role Phone Unavailable Primary Care Provider Unavailable Encounter Details Date Type Department Care Team Description 09/29/1999 Office Visit [facility] Levi Cruz LOW BACK PAIN (ACUTE)<6 WEEKS; Physicians Glen Gomez MD DISORDERS OF SACRUM; [address] [facility] RIDDEN ANIMAL ACC-PEDEST; [place], [place] INJUR [place] NOS [address] Social History Tobacco Use Types Packs/Day Years [...]
--- OUTSIDE RECORDS SUMMARY | 2022-02-16 12:34 | XMS_ITS | Encounter Summary ---
:1955 Author Organization [facility] Address [address] [place] [address] Care Team Providers Name Role Phone Unavailable Primary Care Provider Unavailable Encounter Details Date Type Department Care Team Description 09/13/1999 Office Visit [facility] Zoë Ramirez, MULTIPLE SCLE ROSIS; [facility] MD Betty ELEV BL MA ES W/O HYPERTN Social History Tobacco Use [...]
--- OUTSIDE RECORDS SUMMARY | 2022-02-16 12:34 | XMS_ITS | Encounter Summary ---
:1955 Author Organization [facility] Address [address] [place] [address] Care Team Providers Name Role Phone Unavailable [...]
--- OUTSIDE RECORDS SUMMARY | 2022-02-16 12:34 | XMS_ITS | Encounter Summary ---
:1955 Author Organization [facility] Address [address] [place] [address] Care Team Providers Name Role Phone Unassigned, Provider Primary Care Provider Unavailable Encounter Details Date Type Department Care Team Description 09/30/1999 Orders Only [facility] Carmita Lazcano, Radiology [address] [place] [address]. [place] [address] Social History Tobacco Use Types [...] on filedocumented in this encounter Care Teams Import Export Agent Relationship Specialty Start Date End Date Unassigned, Provider PCP - General 01/12/00 08/29/[address] [place] [address] documented as of this encounter
--- OUTSIDE RECORDS SUMMARY | 2022-02-16 12:34 | XMS_ITS | Encounter Summary ---
:1955 Author Organization [facility] Address [address] [place] [address] Care Team Providers Name Role Phone Unavailable Primary Care Provider Unavailable Encounter Details Date Type Department Care Team Description 11/29/1999 Office Visit [facility] HEADACHE; [address] [place] [address] MULTIPLE SCLEROSIS; [place] [address] HYPERTENSION NOS [phone] Social History Tobacco Use Types Packs/Day Years [...]
--- OUTSIDE RECORDS SUMMARY | 2022-02-16 12:34 | XMS_ITS | Encounter Summary ---
:1955 Author Organization [facility] Address [address], [place] [address] Care Team Providers Name Role Phone Unassigned, Provider Primary Care Provider Unavailable Reason for Visit Reason Comments STOMACH PROBLEM VIA INTERFACE Encounter Details Date Type Department Care Team Description 03/13/2000 Office Visit [facility] Levi Pozo ESOPHAGEAL R EFLUX; Alden Gomez MD VACCINE FOR INFLUENZA [address] [address] [place] [address] [place], [place] [phone] [address] Social History Tobacco Use Types Packs/Day Years Used Date Smoking Tobacco: Never Assessed Sex Assigned at Date Recorded Not on file documented as of this encounter Progress Notes Levi Pozo G - 03/13/2000 12:00 AM CSTS: This 44-year-old woman complains of gastroesophageal reflux symptoms with burning in her chest, worse especially after she eats tomato sauce. She has been using Zantac [id number]-[id number], it used to work but doesn't seem [...] INFLUENZA documented in this encounter Care Teams Pilling Machine Operator Relationship Specialty Start Date End Date Unassigned, Provider PCP - General 01/12/00 08/29/[address] [place] [address] documented as of this encounter
--- OUTSIDE RECORDS SUMMARY | 2022-02-16 12:34 | XMS_ITS | Encounter Summary ---
:1955 Author Organization [facility] Address [address] [place] [address] Care Team Providers Name Role Phone Unassigned, Provider Primary Care Provider Unavailable Reason for Visit Reason Comments RECTAL BLEEDING Encounter Details Date Type Department Care Team Description 07/10/2000 Telephone Careline Yin Anne, RN RECTAL BLEEDING [address] [place], [place] [address] [phone] [place] [address] Social History Tobacco Use Types Packs/Day Years Used Date Smoking Tobacco: Never Assessed Sex Assigned at Date Recorded Not on file documented as of this encounter Nursing Notes 07/10/2000 11:59 PM CDT >> YIN ANNE Wed Jul 10, 2000 7:54 PM >> CALL RECEIVED. [...] refused strongly recomm. to be driven to [facility] ER, now. ETA:10min has a ride w/her-will leave now caller states is comf. with plan. documented in this encounter Plan of Treatment Not on filedocumented as of this encounter Visit Diagnoses Not on filedocumented in this encounter Care Teams [employer] Physical Education Teacher Relationship Specialty Start Date End Date Unassigned, Provider PCP - General 01/12/00 08/29/11 [address] [place] [address] documented as of this encounter
--- OUTSIDE RECORDS SUMMARY | 2022-02-16 12:34 | XMS_ITS | Encounter Summary ---
:1955 Author Organization [facility] Address [address] [place] [address] Care Team Providers Name Role Phone Unassigned, Provider Primary Care Provider Unavailable Encounter Details Date Type Department Care Team Description 05/21/2000 Office Visit [facility] Aileen Patel M D ACUTE SINUSITIS NOS [facility] [address] [place] [address] Social History Tobacco Use Types Packs/Day Years Used Date Smoking Tobacco: Never Assessed Sex Assigned at Date Recorded Not on file documented as of this encounter Plan of Treatment Not on filedocumented as of this encounter Visit Diagnoses Diagnosis Acute sinusitis, unspecified documented in this encounter Care Teams Colliery Clerk Relationship Specialty Start Date End Date Unassigned, Provider PCP - General 01/12/00 08/29/[address] [place] [address] documented as of this encounter
--- OUTSIDE RECORDS SUMMARY | 2022-02-16 12:34 | XMS_ITS | Encounter Summary ---
:1955 Author Organization [facility] Address [address] [place] [address] Care Team Providers Name Role Phone Unavailable Primary Care Provider Unavailable Encounter Details Date Type Department Care Team Description 12/07/1999 Office Visit [facility] Dennis Gaffney, ACUTE [facility] PHARYNGITIS(SORE [address] THROAT) Fernando [address] [place], [place] [id number] (Wo rk) Social History Tobacco Use Types Packs/Day Years Used Date Smoking Tobacco: Never Assessed Sex Assigned at Date Recorded Not on file documented as of this encounter Plan of Treatment Not on filedocumented as of this encounter Visit Diagnoses Diagnosis Acute pharyngitis documented in this encounter
--- OUTSIDE RECORDS SUMMARY | 2022-02-16 12:34 | XMS_ITS | Encounter Summary ---
:1955 Author Organization [facility] Address [address] [place] [address] Care Team Providers Name Role Phone Unavailable Primary Care Provider Unavailable Reason for Visit Reason Comments BLOOD PRESSURE, HIGH Pt of Dr Linares. MULTIPLE SCLEROSIS Medication Questions HEADACHE Encounter Details Date Type Department Care Team Description 12/31/1999 Telephone Careline Gabe Gamez, BLOOD PRESSURE, HIGH [address] RN (Pt [place] [address] AFTER HOURS CARE Vijay.); MULTIPLE [phone] [address] [facility] S; Medication SE Questions; HEADACHE [place] [address] 14 Social History Tobacco Use Types Packs/Day [...] 2p, pt took another 1/2 tab Atenolol, (tes th abigail what they did for her [...]
--- OUTSIDE RECORDS SUMMARY | 2022-02-16 12:35 | XMS_ITS | Encounter Summary ---
:1955 Author Organization [facility] Address [address] [place] [address] Care Team Providers Name Role Phone Unavailable Primary Care Provider Unavailable Encounter Details Date Type Department Care Team Description 01/02/1999 Office Visit [facility] Zoë Ramirez, ANGELIA SCLE ROSIS; [facility] MD Betty FEMALE [...]
--- OUTSIDE RECORDS SUMMARY | 2022-02-16 12:35 | XMS_ITS | Encounter Summary ---
:1955 Author Organization [facility] Address [address] [place] [address] Care Team Providers Name Role Phone Unavailable Primary Care Provider Unavailable Encounter Details Date Type Department Care Team Description 08/09/1999 Office Visit [facility] Zoë Ramirez, MULTIPLE VJE ROSIS; [facility] MD Betty ALLERGIC R HINITIS [...]
--- OUTSIDE RECORDS SUMMARY | 2022-02-16 12:35 | XMS_ITS | Encounter Summary ---
:1955 Author Organization [facility] Address [address] [place] [address] Care Team Providers Name Role Phone Unavailable [...]
--- OUTSIDE RECORDS SUMMARY | 2022-02-16 12:35 | XMS_ITS | Encounter Summary ---
:1955 Author Organization [facility] Address [address] [place] [address] Care Team Providers Name Role Phone Unavailable Primary Care Provider Unavailable Encounter Details Date Type Department Care Team Description 07/31/1999 Office Visit [facility] Zoë Ashley, ELEV BL PRES W/O HYPERTN; [facility] [...]
--- OUTSIDE RECORDS SUMMARY | 2022-02-16 12:35 | XMS_ITS | Encounter Summary ---
:1955 Author Organization [facility] Address [address] [place] [address] Care Team Providers Name Role Phone Unavailable Primary Care Provider Unavailable Encounter Details Date Type Department Care Team Description 05/11/1999 Office Visit [facility] Zoë Ramirez, Betty, IVANA GAYTAN CARE EXAM [facility] MD Social History Tobacco Use Types Packs/Day Years Used Date Smoking Tobacco: Never Assessed Sex Assigned at Date Recorded Not on file documented as of this encounter Plan of Treatment Not on filedocumented as of this encounter Visit Diagnoses Diagnosis Routine general medical examination at [facility] Routine general medical examination at a health care facility documented in this encounter
--- OUTSIDE RECORDS SUMMARY | 2022-02-16 12:35 | XMS_ITS | Encounter Summary ---
:1955 Author Organization [facility] Address [address] [place] [address] Care Team Providers Name Role Phone Unavailable [...]
--- OUTSIDE RECORDS SUMMARY | 2022-02-16 12:35 | XMS_ITS | Encounter Summary ---
:1955 Author Organization [facility] Address [address], [place] [address] Care Team Providers Name Role Phone Unavailable Primary Care Provider Unavailable Encounter Details Date Type Department Care Team Description 01/25/1999 Office Visit [facility] BIPOLAR AFFECTIVE NOS; [address] [facility] TRANSIENT [place] [address] Social History Tobacco Use Types Packs/Day Years [...]
--- OUTSIDE RECORDS SUMMARY | 2022-02-16 12:35 | XMS_ITS | Encounter Summary ---
:1955 Author Organization [facility] Address [address] [place] [address] Care Team Providers Name Role Phone Unassigned, [...] Procedure Name Priority Date/Time Associated Diagnosis Comme [facility] ACCESS CONTROL SPECIALIST CYTOLOGY Routine 05/11/1999 5:07 PM Results f or this PRISON TEACHER procedure are i n the results section . documented in this encounter Results ACCESS CONTROL SPECIALIST CYTOLOGY (05/11/1999 5:07 PM PRISON TEACHER) [facility] Method Time Signature Booking Officer Cytology (NOTE) [facility] Booking Officer Cytology Report Patient Name: YARY PHILIPPE Taken: 05/11/99 Received: 05/12/99 Reported: 05/15/99 Physician(s): MICHAELA FIELDS ([id number]) Final Cytologic Diagnosis Vaginal, diagnostic: ? Satisfactory for evaluation. ? WITHIN NORMAL LIMITS (WNL) Comment [facility]/05/15/99 Electronically Signed Out By YANET Arguello (ASCP) YANET Arguello (ASCP) Source of Specimen(s) Vaginal, diagnostic Clinical History Date of Last Menstrual Period: ? {Not Given} Menstrual History: Contraceptive History: Cancer History: Infection History: Treatment History: Hysterectomy Other Clinical Conditions: Other Related Clinical Data Specimen Anatomical Collection Method Collection Time Receive d Time (Source) Location / / Volume Laterality 05/11/1999 5:07 PM 0 PRISON TEACHER 12:33 PM PRISON TEACHER Michaela Ramirez MD UNLISTED CODE Performing Organization Address City/State/ZIP Code Phon e Number [address] [address] [place], [place] [phone] documented in this encounter Visit Diagnoses Not on filedocumented in this encounter Care Teams Mixer Driver Relationship Specialty Start Date End Date Unassigned, Provider PCP - General 01/12/00 08/29/[address] [place] [address] documented as of this encounter
--- OUTSIDE RECORDS SUMMARY | 2022-02-16 12:40 | XMS_ITS | Encounter Summary ---
:1955 Author Organization [facility] Address [address] [place] [address] Care Team Providers Name Role Phone Unavailable Primary Care Provider Unavailable Encounter Details Date Type Department Care Team Description 10/28/2012 - Hospital Encounter [facility] Hospital Mallipeddi, Acute mireles creatitis; 10/30/2012 Medical/Surgical Vishwanth Type 2 or unspecified type d iabetes mellitus; [address] Bipolar affective disorder ( HCC); [place], [place] Other depressi ve disorder; [address] Multiple sclerosis ([facility]); [phone] Essential hyper tension; Other and unspe cified [...]
--- OUTSIDE RECORDS SUMMARY | 2022-02-16 12:40 | XMS_ITS | Encounter Summary ---
:1955 Author Organization [facility] Address [address] [place] [address] Care Team Providers Name Role Phone Unavailable Primary Care Provider Unavailable Encounter Details Date Type Department Care Team Description 05/03/2014 - Hospital Encounter [facility] [facility] Abnormality of gait 06/08/2014 Services , DO Td [address] [place] [address] [place], [place] [phone] [id number] Social History Tobacco Use Types Packs/Day Years [...]
--- OUTSIDE RECORDS SUMMARY | 2022-02-16 12:40 | XMS_ITS | Encounter Summary ---
:1955 Author Organization [facility] Address [address] [place] [address] Care Team Providers Name Role Phone Unavailable Primary Care Provider Unavailable Encounter Details Date Type Department Care Team Description 05/03/2014 - Hospital Encounter [facility] [place] Abnormality of gait 02/08/2015 Services , Angala, DO and mobility [address] [place] [address] [place], [place] [phone] [id number] Social History Tobacco Use Types Packs/Day Years [...]
--- OUTSIDE RECORDS SUMMARY | 2022-02-16 12:40 | XMS_ITS | Encounter Summary ---
:1955 Author Organization [facility] Address [address] [place] [address] Care Team Providers Name Role Phone Unavailable Primary Care Provider Unavailable Encounter Details Date Type Department Care Team Description 06/20/2013 - [facility] Pascual Henriquez PA [address] [place], [place] [address] Acute pancreatitis; 06/24/2013 Encounter Medical/Surgical Michaelle Dunnh Migraine; [address] [facility] Essential hypertension; [place], [place] Type 2 or unsp ecified type diabetes mellitus; [address] Multiple sclerosis (HCC); [phone] Bipolar affecti ve disorder (HCC); Other and [...] Signature Cholesterol 100 0 - 199 06/21/2013 [facility] mg/dL 7:16 AM [facility] Comment: Recommended by National Cholesterol Education Program (ATP III) Cholesterol Ranges <200 ? Desirable 200-239 ? Borderline high >=240 ? High Triglycerides 241 (A) 0 - 149 mg/dL 06/21/2013 7:16 AM [facility] Comment: TRIG Ranges <150 ?Normal 150-199 ? Borderline high 200-499 ? High >=500 ? Very high HDL 47 40 - 60 mg/dL 06/21/2013 7:16 AM [facility] Comment: HDL Ranges <40 ?Low 40-59 ?Normal >=60 ? Optimal LDL Calculated 5 0 - 99 mg/dL 06/21/2013 7:16 AM [facility] Comment: LDL Ranges <100 ? Optimal 100-129 ?Near optimal/above op timal 130-159 ?Borderline high 160-189 ?High >=190 ?Very high Fasting? Unknown 06/21/2013 6:27 AM [facility] Specimen Anatomical Collection Method Collection Time Receive d Time (Source) Location / / Volume Laterality 06/21/2013 5:30 AM 4 6:28 CDT AM CDT Gildardo Dunn LAB BLOOD ORDERABLES Performing Organization Address City/State/ZIP Code Phon e Number [facility] [address] [place] [address] abdomen pelvis w IV contrast (06/20/2013 [...] 7:37 AM CDT Patient: YARY PHILIPPE Facility: [facility] . Site : 1955 Study: CT-Abdomen/Pelvis [...] from the original. Patient: YARY PHILIPPE Facility: [facility] . Site : 1955 Study: CT-Abdomen/Pelvis [...]
--- OUTSIDE RECORDS SUMMARY | 2022-02-16 12:40 | XMS_ITS | Encounter Summary ---
:1955 Author Organization [facility] Address [address] [place] [address] Care Team Providers Name Role Phone Unavailable Primary Care Provider Unavailable Reason for Visit Reason Comments Med Refill Encounter Details Date Type Department Care Team Description 01/10/2018 Refill [place] Justin Sosa MD [address] [facility] [address] [place], [place] [address] [place], [place] [phone] (Wo rk) Social History Tobacco Use Types [...]
--- OUTSIDE RECORDS SUMMARY | 2022-02-16 12:40 | XMS_ITS | Encounter Summary ---
:[address] [facility] Address [address] [place] [address] Care Team Providers Name Role Phone Unavailable Primary Care Provider Unavailable Reason for Visit Reason Comments Follow up Diabetes Encounter Details Date Type Department Care Team Description 01/05/2021 Office Visit Jose Remy, Canceled (Provider) [address] [place] [address] CHRISTINA Owens [address] [place] [address] [place] [address] (Wo rk) Social History Tobacco Use Types Packs/Day Years Used Date Smoking Tobacco: Every Day Smokeless Tobacco: Never Alcohol Use Standard Drinks/Week Comments Never 0 [...]
--- OUTSIDE RECORDS SUMMARY | 2022-02-16 12:40 | XMS_ITS | Encounter Summary ---
:1955 Author Organization [facility] Address [address] [place] [address] Care Team Providers Name Role Phone Unavailable Primary Care Provider Unavailable Encounter Details Date Type Department Care Team Description 06/24/2014 Hospital Encounter [facility] Multi ple sclerosis Radiology , DO Td ([facility]) [address] [facility] [address] [place] [address] S [phone] [place], [place] [phone] Social History Tobacco Use Types Packs/Day Years [...] enhancement to sugge st new/active lesions. Td MICHAUD MRI PROCEDURES documented in this encounter Visit Diagnoses Diagnosis Multiple sclerosis (HCC) Multiple sclerosis documented in this encounter
--- OUTSIDE RECORDS SUMMARY | 2022-02-16 12:40 | XMS_ITS | Continuity of Care Document ---
:1955 Author Organization [facility] Address [address] [address] [place] [address] Phone Care Team Providers Name Role Phone [...] 1/mx Level Iv-surg Path Gross/micro Offic/outpt E&[facility] Advance Directives Directive Yes / No Effective Date File Name No Information Encounters Encounter Practice Location Reason(s) Diagnoses Date Provider Provide rs Description For Visit Copied on Encounter [facility] No Information [facility] Nuris [facility], Hosp [address]. [address] [address], [facility] [place], [place], [place], [place] [id number], [address], [place] tel:+ [place], [place], [phone] , [place]. tel: [phone] [facility] Dysphagia, Juanpablo [place] Referring Digest[facility] unspecified [place]. Provider: Diana MOONEY, Endoscopy typeDuodenitis 2 [address] Center without [place] Self. [address], [facility] ia, unspecified [place], [place], [place], [address], [id number], [place], [place], tel:+ [phone] , [place]. tel:+ [phone] Offic/outpt [facility] GI Dysphagia, Matson COMPOUNDER FLAVORINGS Referr [facility] Symptoms unspecified [place]. Provider: [facility] VINICIO, or typeChronic 2 [address] Concerns diarrhea [place] Self. [address], ([address] [facility] complaint) [place], [place], [place], [address], [id number], [place], [place], tel:+ [phone] , [place]. tel:+ [phone] [facility] No Information [facility] MD Diana MOONEY, [address] [address], [facility] [place], [place], [place], [place] [id number], [address], [place] [facility] tel: [place], [place], [phone] , . tel: [phone] Family History Family Member Type Diagnosis Age [...] Registry Payers Payer name Insurance type Covered libertarian ID Authorization(s ) No Information Social History [...] that dry gianluca ds such as chicken, German fries, and bread are getting stuck often. [...]
--- OUTSIDE RECORDS SUMMARY | 2022-02-16 12:40 | XMS_ITS | Clinical Summary ---
:1955 Author Organization [facility] Address [address] [place] [address] Care Team Providers Name Role Phone Unavailable [...] Vaccine (#1) 1955 Fall Risk Performed 1972 DTaP,Tdap,and Td Vaccines (1 - 08/22/2004 08/21/2004 Tdap) Zoster Vaccines (2 of 2) 07/17/2016 05/22/2016 Pneumococcal Vaccine: 65+ 09/20/2020 09/21/2019, Years (#3) 08/12/2015, 06/29/2014 HPV Vaccines Aged Out No longer eligib le based on patient's age to complete this to pic
--- OUTSIDE RECORDS SUMMARY | 2022-02-16 12:40 | XMS_ITS | Encounter Summary ---
:1955 Author Organization [facility] Address [address] [place] [address] Care Team Providers Name Role Phone Unavailable Primary Care Provider Unavailable Reason for Visit Reason Comments Med Refill Encounter Details Date Type Department Care Team Description 02/05/2018 Refill [place] MD [address] [facility] 20 1705 [facility] 20 [place], [place] [address] [place], [place] [phone] (Wo rk) Social History Tobacco Use Types Packs/Day Years Used Date Smoking Tobacco: Never Assessed Sex Assigned at Date Recorded Not on file documented as of this encounter Miscellaneous Notes Telephone Encounter - Iris Mace MA - 02/06/2018 3:50 PM CST Noted. RVISOR HEADING Telephone Encounter - Justin Sosa MD - 02/06/2018 3:45 PM CST Yary is no longer a patient at our clinic so this Rx was not filled. RVISOR HEADING Telephone Encounter - Hyacinth Bhat MA - 02/06/2018 2:54 PM CST Last refill: 11/05/2017 Patient's last appointment was 11/14/2016 No follow up scheduled at this time. Please advise if patient needs an appointment. Labs are over a year old. RVISOR HEADING documented in this encounter Plan of Treatment Not on filedocumented as of this encounter Visit Diagnoses Not on filedocumented in this encounter
--- OUTSIDE RECORDS SUMMARY | 2022-02-16 12:40 | XMS_ITS | Encounter Summary ---
:1955 Author Organization [facility] Address [address] [place] [address] Care Team Providers Name Role Phone Unavailable Primary Care Provider Unavailable Reason for Visit Reason Comments Med Refill Encounter Details Date Type Department Care Team Description 11/07/2018 Refill Justin Love MD [address] [facility] [address] [place], [place] [address] [place], [place] [phone] (Wo rk) Social History Tobacco Use Types Packs/Day Years Used Date Smoking Tobacco: Never Assessed Sex Assigned at Date Recorded Not on file documented as of this encounter Miscellaneous Notes Telephone Encounter - Clara Blount RN - 11/11/2018 3:55 PM CDT Pharmacy informed. Please refuse meds Telephone Encounter - Justin Sosa MD - 11/11/2018 2:55 PM CDT Let the pharmacy that is requesting Yary's refill know that we are no longer [...]
--- OUTSIDE RECORDS SUMMARY | 2022-02-16 12:40 | XMS_ITS | Encounter Summary ---
:1955 Author Organization [facility] Address [address] [place] [address] Care Team Providers Name Role Phone Unavailable Primary Care Provider Unavailable Reason for Visit Reason Comments Med Refill Encounter Details Date Type Department Care Team Description 05/07/2018 Refill [place] Justin Sosa MD [address] [facility] [address] [place], [place] [address] [place], [place] [phone] (Wo rk) Social History Tobacco Use Types [...] sent this request to her current provider. SERVICE AMBASSADOR Telephone Encounter - Yary Hastings RN - 05/09/2018 9:09 AM CST Pharmacy contacted SERVICE AMBASSADOR Telephone Encounter - Justin Sosa MD - 05/09/2018 8:17 AM CST There is a request for Cozaar for Yary Call. She had to change providers secondary to insurance reasons. Please call her pharmacy and let them know that they will have to send this request to her new provider. SERVICE AMBASSADOR Telephone Encounter - Hyacinth Mead MA - [...] to assist in this process. Thank you. SERVICE AMBASSADOR documented in this encounter Plan of Treatment Not on filedocumented as of this encounter Visit Diagnoses Not on filedocumented in this encounter
[2022-02-16 13:10] LABS: Appearance Urine Clear (Clear); Bilirubin Urine Negative (Negative); Blood Urine Negative (Negative); Color Urine Yellow (Yellow); Glucose Urine Negative (Negative); Ketones Urine Negative (Negative); Leukocyte Esterase Urine Trace (Negative); Nitrite Urine Negative (Negative); Protein Urine Negative (Negative); Specific Gravity Urine 1.025 (1.000-1.030); Urobilinogen Urine 0.2 (0.2-1.0); pH Urine 5.5 (5.0-8.5)
[2022-02-16 15:34] LABS: Bacteria Urine Few; RBC Urine 0-2 (0-2); WBC Urine 0-2 (0-5)
== END 2022-02-16 12:28 | disposition home or self-care (01) ==
LOC: KYNREF 12:28
PROVIDERS: PCP Nurse Practitioner Family; Visit Provider Nurse Practitioner Family
DX: R82.90 Unspecified abnormal findings in urine (principal)
CPT/HCPCS: 81003; 81015; 87086

== ENCOUNTER 2022-02-20 11:03 | Outpatient (CLI) | payer MEDICARE, SELFPAY ==
--- OUTSIDE RECORDS SUMMARY | 2022-02-20 11:59 | XMS_ITS | Encounter Summary ---
:1955 Author Organization [facility] Address [address], [place] [address] Care Team Providers Name Role Phone Unassigned, Provider Primary Care Provider Unavailable Reason for Visit Reason Onset Date Comments QUESTIONS, GENERAL 10/23/2007 Encounter Details Date Type Department Care Team Description 10/23/2007 Telephone [facility] Marcello Monterroso MD QUESTIONS, GENERAL [address] [facility]. [place], [place] [address] Social History Tobacco Use [...] on filedocumented in this encounter Care Teams Early Education Teacher Relationship Specialty Start Date End Date Unassigned, Provider PCP - General 01/12/00 08/29/[address] [place] [address] documented as of this encounter
--- OUTSIDE RECORDS SUMMARY | 2022-02-20 11:59 | XMS_ITS | Encounter Summary ---
:1955 Author Organization [facility] Address [address], [place] [address] Care Team Providers Name Role Phone Unassigned, Provider Primary Care Provider Unavailable Reason for Referral Specialty Diagnoses / Procedures Referred By Contact Refer red To Contact Marcello Monterroso MD [address] [place] [address] Referral ID Status Reason Start Date Expiration Date Visits Requ ested Visits Authorized Scheduling Instructions If an appointment with [employer] [facility], Nose and Throat was advised and you have not been contacted to schedule that appo intment within 3 business days, please call [phone] for assistance. Reason for Visit Reason Comments CHOKING has been going on for 3 valdez hs Encounter Details Date Type Department Care Team Description 01/28/2008 Office Visit [facility] Marcello Monterroso, Dysphagia (Primary Dx) [facility] [place], [place] [address] Social History Tobacco Use Types [...] unspecified documented in this encounter Care Teams [employer] Team Member Relationship Specialty Start Date End Date Unassigned, Provider PCP - General 01/12/00 08/29/[address] [place] [address] documented as of this encounter
--- OUTSIDE RECORDS SUMMARY | 2022-02-20 11:59 | XMS_ITS | Encounter Summary ---
:1955 Author Organization [email or web address] Address [address] [address] Care Team Providers Name Role Phone Unassigned, Provider Primary Care Provider Unavailable Reason for Visit Reason Comments ROUTINE, FOLLOW-UP 2 months Encounter Details Date Type Department Care Team Description 12/06/2010 Office Visit [facility] Marcello Monterroso, Multiple sclerosis [address] Gabbi [place] (Primary Dx) [place], [place] [address] Social History Tobacco Use Types [...] with no areas of enhancement. Residual urine dujeup-85-84 mL. Vitamin B12 level was at the [...] sclerosis documented in this encounter Care Teams Stitcher Operator Relationship Specialty Start Date End Date Unassigned, Provider PCP - General 01/12/00 08/29/[address] [place] [address] documented as of this encounter
--- OUTSIDE RECORDS SUMMARY | 2022-02-20 11:59 | XMS_ITS | Encounter Summary ---
:1955 Author Organization [email or web address] Address [address] [place] [address] Care Team Providers Name Role Phone Unassigned, Provider Primary Care Provider Unavailable Encounter Details Date Type Department Care Team Description 09/20/2005 Office Visit [facility] Luis Gonzalez MD BIPOLAR - MOST RECENT Clinic Psychiatry [address] [facility] [place] [address] (Wo rk) Social History Tobacco [...] by Dr. Marcello Monterroso at, I believe, [place] and/or [facility]. She also has seen Stacie [...] she's been psychotic. She remembers being at [facility] maybe 20-plus years ago. She does remember [...] of her care had been delivered at [facility]. She could not remember any of the providers that she saw there. She reported though that she does think that she had a neuropsychiatric evaluation at the [facility]. She did not know it by that [...] suit is not her history giving. ASSESSMENT: [place] I: Historical is listed as bipolar disorder. [...] secondary to her progressive multiple sclerosis problems. [place] II: None at this time are deferred. [place] III: Is multiple sclerosis, want to rule out any mild cognitive impairment secondary to her treatment, but it simply might be early cognitive decline. [place] IV: Patient mostly complains of [place] III difficulties, fatigue, difficulty taking care of herself. [place] V: GAF is around 50. PLAN: Patient [...] to this plan. P cc: Stacie Bautista RN,PINEAPPLE PLANTATION MANAGER Marcello Monterroso MD documented in this encounter Plan of Treatment Not on filedocumented as of this encounter Visit Diagnoses Diagnosis Bipolar I disorder, most recent episode (or current) unspecified ([facility]C) Bipolar I disorder, most recent episode (or current) unspecified documented in this encounter Care Teams Recruiting Team Lead Relationship Specialty Start Date End Date Unassigned, Provider PCP - General 01/12/00 08/29/[address] [place] [address] documented as of this encounter
--- OUTSIDE RECORDS SUMMARY | 2022-02-20 11:59 | XMS_ITS | Encounter Summary ---
:1955 Author Organization [facility] Address [address] [place] [address] Care Team Providers Name Role Phone No Primary/Referring, Phy Primary Care Provider Unavailable Reason for Visit Reason Comments MULTIPLE SCLEROSIS Encounter Details Date Type Department Care Team Description 09/06/2011 Office Visit [facility] Marcello Monterroso, Myalgia and myositis, unspec ified (Primary Dx); [address] [place] Abnormality of gait; [place], [place] [address] BIPOLAR DISORDER NOS [phone] Social History Tobacco Use Types Packs/Day Years [...] Send for records of recent hospitalization in [facility]. Marcello Monterroso MD documented in this encounter Progress Notes Marcello Monterroso MD - 09/06/2011 3:00 PM CDT 56-year-old woman with long-standing multiple sclerosis is in today because of recent symptoms. Lastweek her primary physician called from a clinic in [place] because Yary was feeling weak and unsteady. [...] unspecified documented in this encounter Care Teams Crew Chief Relationship Specialty Start Date End Date No Primary/Referring, y PCP - General 08/30/11 documented as of this encounter
--- OUTSIDE RECORDS SUMMARY | 2022-02-20 11:59 | XMS_ITS | Encounter Summary ---
:1955 Author Organization [facility] Address [address] [address] Care Team Providers Name Role Phone Unassigned, Provider Primary Care Provider Unavailable Encounter Details Date Type Department Care Team Description 09/21/2005 Orders Only [facility] ter Radiology Arrived [address] [facility] [place] [address] Social History Tobacco Use Types [...] on filedocumented in this encounter Care Teams Sealing Machine Operator Relationship Specialty Start Date End Date Unassigned, Provider PCP - General 01/12/00 08/29/[address] [place] [address] documented as of this encounter
--- OUTSIDE RECORDS SUMMARY | 2022-02-20 11:59 | XMS_ITS | Encounter Summary ---
:1955 Author Organization [facility] Address [address] [place] [address] Care Team Providers Name Role Phone Unassigned, Provider Primary Care Provider Unavailable Encounter Details Date Type Department Care Team Description 10/04/2005 Correspondence External to Marcello Monterroso MD [employer] Social History Tobacco Use Types Packs/Day Years [...] on filedocumented in this encounter Care Teams Escrow Representative Relationship Specialty Start Date End Date Unassigned, Provider PCP - General 01/12/00 08/29/[address] [place] [address] documented as of this encounter
--- OUTSIDE RECORDS SUMMARY | 2022-02-20 11:59 | XMS_ITS | Encounter Summary ---
:1955 Author Organization [facility] Address [address] [address] Care Team Providers Name Role Phone Unassigned, Provider Primary Care Provider Unavailable Reason for Referral Specialty Diagnoses / Procedures Referred By Contact Refer red To Contact Marcello Monterroso MD [address] [place] [address] Referral ID Status Reason Start Date Expiration Date Visits Requ ested Visits Authorized Scheduling Instructions Your provider has [facility] You may call [phone] to schedule your a ppointment. If you prefer, a coil inspector will contact you within the next 3 business d ays to assist you in setting up this appointment. Reason for Visit Reason Comments MULTIPLE SCLEROSIS swallowing difficulty Encounter Details Date Type Department Care Team Description 10/19/2010 Office Visit [facility] Marcello Monterroso, Multiple sclerosis (Primary Dx); [address] [facility] Abnormality of gait; [place], [place] [address] Other specified visual distu rbances [phone] Social History Tobacco Use Types Packs/Day Years [...] spine MRI with and without contrast at [facility] today Refer to Eye clinic for exam Have your nurse fax us your med list - FAX number is [phone] Return 2 months; bring all your medicines [...] migraine headaches. No h/o significant head trauma, SMALL MACHINE BINDERY OPERATOR infections, seizures, LOC, prior LP, CVA/TIA symptoms. [...] Analysis Performed At [facility] gist Range Method Time Signature NMO-IgG <1.6 [facility] Reference Range: <1.6 U/mL NMO-IgG (NOTE) [facility] NMO Evaluation w/Reflex, S ?? Interpretive Comments ? No informative autoantibodies were detected in this ? evaluation. ??A negative result does not exclude a di agnosis ? of a neuromyelitis optica spectrum of disorders. For research use only Test Performed by: [facility] [employer] [address] [place] [address] Specimen Anatomical Collection Method Collection Time Receive d Time (Source) Location / / Volume Laterality 10/19/2010 2:58 PM 1 3:04 CDT PM CDT Marcello Monterroso MD LAB_1 Performing Organization Address [facility] Phon e Number [facility] [phone] [facility] [address] [place] [phone] (ABNORMAL) VIT B12 & FOLATE (10/19/2010 2:58 PM CDT) athologist Signature Vitamin B12 214 (L) 239 - 931 [facility] pg/ml Folate >20.0 >3.0 ng/ml [facility] Specimen Anatomical Collection Method Collection Time Receive d Time (Source) Location / / Volume Laterality 10/19/2010 2:58 PM 1 3:04 CDT PM CDT Marcello Monterroso MD LAB_1 Performing Organization Address [facility] Phon e Number [facility] [phone] [facility] [address] [place] [phone] OSCAR SCREEN (10/19/2010 2:58 PM CDT) athologist Signature OSCAR Screen Negative NEG [facility] Specimen Anatomical Collection Method Collection Time Receive d Time (Source) Location / / Volume Laterality 10/19/2010 2:58 PM 1 3:04 CDT PM CDT Marcello Monterroso MD LAB_1 Performing Organization Address [facility] Phon e Number [facility] [employer] [phone] [phone] (ABNORMAL) HGB A1C (10/19/2010 2:58 PM CDT) [...] Marcello Monterroso MD LAB_1 Performing Organization Address [facility] Phon e Number [facility] [employer] [phone] [phone] ESR (10/19/2010 2:58 PM CDT) athologist [facility] ESR 2 0 - 20 [facility] mm/hr Specimen Anatomical Collection Method Collection Time Receive d Time (Source) Location / / Volume Laterality 10/19/2010 2:58 PM 1 3:04 CDT PM CDT Marcello Monterroso MD LAB_1 Performing Organization Address [facility] Phon e Number [facility] [employer] [phone] [phone] (ABNORMAL) HEMOGRAM/PLTS (10/19/2010 2:58 PM CDT) athologist Signature WBC 12.5 (H) 4.0 - 11.0 [facility] k/ul RBC 4.53 4.0 - 5.2 [facility] M/ul Hemoglobin 14.4 12.0 - [facility] 16.0 g/dl HCT 41.9 36.0 - [facility] 46.0 % MCV 92.4 80 - 100 [facility] id MCH 31.8 26 - 34 pg [facility] MCHC 34.5 32 - 36 [facility] g/dl RDW 13.3 11.5 - [facility] 14.5 % Platelets 418 150 - 450 [facility] k/ul Specimen Anatomical Collection Method Collection Time Receive d Time (Source) Location / / Volume Laterality 10/19/2010 2:58 PM 1 3:04 CDT PM CDT Marcello Monterroso MD LAB_1 Performing Organization Address City/[facility] Phon e Number [facility] [employer] [phone] [facility] [address] [place] [phone] BASIC METABOLIC PANEL (10/19/2010 2:58 PM [...] Marcello Monterroso MD LAB_1 Performing Organization Address [facility] Phon e Number [facility] [employer] [phone] [phone] AST (SGOT) (10/19/2010 2:58 PM CDT) P athologist Signature AST (SGOT) 38 0 - 55 U/L [facility] Specimen Anatomical Collection Method Collection Time Receive d Time (Source) Location / / Volume Laterality 10/19/2010 2:58 PM 1 3:04 CDT PM CDT Marcello Monterroso MD LAB_1 Performing Organization Address [facility] Phon e Number [facility] [phone] [facility] [address] [place] [phone] ALT (SGPT) (10/19/2010 2:58 PM CDT) athologist Signature ALT (SGPT) 43 0 - 69 U/L [facility] Specimen Anatomical Collection Method Collection Time Receive d Time (Source) Location / / Volume Laterality 10/19/2010 2:58 PM 1 3:04 CDT PM CDT Marcello Monterroso MD LAB_1 Performing Organization Address [facility] Phon e Number [facility] [employer] [phone] [phone] documented in this encounter Visit Diagnoses Diagnosis Multiple sclerosis (HRC) - Primary Multiple sclerosis Abnormality of gait Other specified visual disturbances documented in this encounter Care Teams Furniture Restorer Relationship Specialty Start Date End Date Unassigned, Provider PCP - General 01/12/00 08/29/[address] [place] [address] documented as of this encounter
--- OUTSIDE RECORDS SUMMARY | 2022-02-20 11:59 | XMS_ITS | Encounter Summary ---
:1955 Author Organization [facility] Address [address], [place] [address] Care Team Providers Name Role Phone Unassigned, Provider Primary Care Provider Unavailable Reason for Visit Reason Comments FOLLOW-UP, TEST RESULTS MRI Encounter Details Date Type Department Care Team Description 10/29/2005 Office Visit [facility] Marcello Monterroso MULTIP LE SCLEROSIS (Primary Dx); [facility] COMMON MIGRAINE W/O MENTN IN TRACT [address] [place] [address]. [place] [address] Social History Tobacco Use Types [...] documented in this encounter Patient Instructions Patient Dklmnudgjidv45/31/2006 2:45 PM CDT Begin nortryptiline 50 mgm [...] Marcello Monterroso - 10/29/2005 12:00 AM CDTHISTORY: Xbhxq-[id number]-mmhf-old woman back for follow up regarding multiple [...] migrainosus documented in this encounter Care Teams Patient Services Coordinator Relationship Specialty Start Date End Date Unassigned, Provider PCP - General 01/12/00 08/29/[address] [place] [address] documented as of this encounter
--- OUTSIDE RECORDS SUMMARY | 2022-02-20 11:59 | XMS_ITS | Encounter Summary ---
:1955 Author Organization [facility] Address [address] [address] Care Team Providers Name Role Phone Unassigned, Provider Primary Care Provider Unavailable Reason for Visit Reason Onset Date Comments BREATHING PROBLEM 01/19/2008 Encounter Details Date Type Department Care Team Description 01/19/2008 Telephone [facility] Marcello Monterroso MD BREATHING PROBLEM [address] [place], [place] [address] Social History Tobacco Use Types [...] familymember is able to drive her to [facility]. Estefani Turcios RN Myra Woodard - 01/19/2008 12:03 PM CDT Pt calling. Stated feels throat is closing in on her. documented in this encounter Plan of Treatment Not on filedocumented as of this encounter Visit Diagnoses Not on filedocumented in this encounter Care Teams Geothermal Plant Manager Relationship Specialty Start Date End Date Unassigned, Provider PCP - General 01/12/00 08/29/[address] [place] [address] documented as of this encounter
--- OUTSIDE RECORDS SUMMARY | 2022-02-20 11:59 | XMS_ITS | Encounter Summary ---
:1955 Author Organization [facility] Address [address] [place] [address] Care Team Providers Name Role Phone Unassigned, Provider Primary Care Provider Unavailable Encounter Details Date Type Department Care Team Description 10/11/2005 Office Visit [facility], Eeg Rajan h I MEMORY LOSS EEG/EMG [address] [facility] [place] [address] Social History Tobacco Use Types [...] loss documented in this encounter Care Teams Title Processor Relationship Specialty Start Date End Date Unassigned, Provider PCP - General 01/12/00 08/29/11 [address] [place] [address] documented as of this encounter
--- OUTSIDE RECORDS SUMMARY | 2022-02-20 11:59 | XMS_ITS | Encounter Summary ---
:1955 Author Organization [facility] Address [address], [place] [address] Care Team Providers Name Role Phone Lew Grewal MD Primary Care Provider Encounter Details Date Type Department Care Team Description 01/13/2019 Notes/Orders [facility] [address] [place] [address] [place], [place] [phone] (Wo rk) Social History Tobacco Use Types [...] on filedocumented in this encounter Care Teams Rolls Baker Relationship Specialty Start Date End Date Lew Grewal MD PCP - General Family Practice 12/10/[address] [place] [address] documented as of this encounter
--- OUTSIDE RECORDS SUMMARY | 2022-02-20 11:59 | XMS_ITS | Clinical Summary ---
:1955 Author Organization [facility] Address [address], [place] [address] Care Team Providers Name Role Phone Lew [...] for each transition of care or referral. [facility] Allergies Active Allergy Reactions Severity Noted Date [...] Addre ss Type Group BCBS BCBS AHA [id number] 2018-Present [address] [address] [employer] CHRISTINA CARABALLO [address] Yary Prince Personal/Family Self 1955 [address] [facility] ([place]) 14 [facility] [phone] CHRISTINA SHEFFIELD (Work) [phone] Care Teams Global Consumer Sector Vice President Relationship Specialty Start Date End Date Lew Grewal MD PCP - General Family Practice 12/10/[address] [place] [address] CHRISTINA MARTINEZ [address]
--- OUTSIDE RECORDS SUMMARY | 2022-02-20 11:59 | XMS_ITS | Encounter Summary ---
:1955 Author Organization [facility] Address [address] [place] [address] Care Team Providers Name Role Phone Lew Grewal MD Primary Care Provider Reason for Visit Procedure/Equipment (Routine) - Incomplete Specialty Diagnoses / Procedures Referred By Contact Refer red To Contact Diagnoses Arthralgia, unspecified joint Primary osteoarthritis of both hands Kenrick Juarez MD Procedures XR Hand(s) Arthritis [address] [place], [place] [address] Referral ID Status Reason Start Date Expiration Date Visits V isits Requested Authorized [id number] Incomplete 01/12/2019 04/12/2020 1 1 Encounter Details Date Type Department Care Team Description 01/12/2019 Ancillary [place] Kenrick Juarez MD Arthralgia, unspecified joint; Procedure Radiology [address] [place] Primary osteoarthritis of shavon th hands [address] [facility] [address] [phone] Social History Tobacco Use Types Packs/Day Years [...] hands documented in this encounter Care Teams Marble Coper Relationship Specialty Start Date End Date Lew Grewal MD PCP - General Family Practice 12/10/[address] [place] [address] documented as of this encounter
--- OUTSIDE RECORDS SUMMARY | 2022-02-20 11:59 | XMS_ITS | Encounter Summary ---
:1955 Author Organization [facility] Address [address], [place] [address] Care Team Providers Name Role Phone Unassigned, Provider Primary Care Provider Unavailable Reason for Visit Reason Onset Date Comments LETTER NEEDED 08/19/2007 Encounter Details Date Type Department Care Team Description 08/19/2007 Telephone [facility] Marcello Monterroso MD LETTER NEEDED [address] [place], [place] [address] Social History Tobacco Use Types Packs/Day Years [...] fax number for Dr.Karl Sosa (primary) is [phone]- in order for send letter on gastric bypass (stated discussed during visit today, 08/18) documented in this encounter Plan of Treatment Not on filedocumented as of this encounter Visit Diagnoses Not on filedocumented in this encounter Care Teams Shelter Case Manager Relationship Specialty Start Date End Date Unassigned, Provider PCP - General 01/12/00 08/29/[address] [place] [address] documented as of this encounter
--- OUTSIDE RECORDS SUMMARY | 2022-02-20 11:59 | XMS_ITS | Encounter Summary ---
:1955 Author Organization [facility] Address [address] [place] [address] Care Team Providers Name Role Phone Unassigned, Provider Primary Care Provider Unavailable Encounter Details Date Type Department Care Team Description 09/21/2005 Orders Only [facility] Marcello Monterroso MD [address] [place], [place] [address] Social History Tobacco Use Types [...] on filedocumented in this encounter Care Teams Bulwark Carpenter Relationship Specialty Start Date End Date Unassigned, Provider PCP - General 01/12/00 08/29/[address] [place] [address] documented as of this encounter
--- OUTSIDE RECORDS SUMMARY | 2022-02-20 11:59 | XMS_ITS | Encounter Summary ---
:1955 Author Organization [facility] Address [address] [place] [address] Care Team Providers Name Role Phone Unassigned, Provider Primary Care Provider Unavailable Reason for Visit Reason Comments MULTIPLE SCLEROSIS Encounter Details Date Type Department Care Team Description 08/19/2007 Office Visit [facility] Marcello Monterroso, Multiple Sclerosis (Primary Dx); [address] [place] Obesity, Unspecified [place] [phone] Social History Tobacco Use Types Packs/Day Years [...] unspecified documented in this encounter Care Teams Miller Rod Mill Relationship Specialty Start Date End Date Unassigned, Provider PCP - General 01/12/00 08/29/[address] [place] [address] documented as of this encounter
--- OUTSIDE RECORDS SUMMARY | 2022-02-20 11:59 | XMS_ITS | Encounter Summary ---
:1955 Author Organization [facility] Address [address] [place] [address] Care Team Providers Name Role Phone Lew Grewal MD Primary Care Provider Reason for Referral Procedure/Equipment (Routine) - Incomplete Specialty Diagnoses / Procedures Referred By Contact Refer red To Contact Diagnoses Arthralgia, unspecified joint Primary osteoarthritis of both hands Kenrick Juarez MD Procedures XR Hand(s) Arthritis [address] [place] [address] Referral ID Status Reason Start Date Expiration Date Visits V isits Requested Authorized [id number] Incomplete 01/12/2019 04/12/2020 1 1 Reason for Visit Reason Comments Consult, New Patient Encounter Details Date Type Department Care Team Description 01/12/2019 Initial Consult Kenrick Jj MD Arthralgia, unspecified joint (Primary D x); Rheumatology [facility] Primary osteoarthritis of shavon th hands; [address] [facility] [place] [address] [phone] Social History Tobacco Use Types Packs/Day Years [...] Referral: Td Roldan DO [address] [place] [address] Chief Complaint Patient presents with ??? Consult, [...] lasting 15-20 minutes. Complains of decreased hand meat grader and difficulty opening objects. Complains of a [...] the right side. Complains of decreased hand meat grader, difficulty opening objects. Complains of a muscle [...] you have any questions. Kenrick Juarez. Rheumatology [facility] 01/12/2019 This note consists of symbols derived from keyboarding, and voice recognition software. As a result,wrong word or 'hfdzz-[id number]' substitutions may have occurred due to the [...] Organization Address City/State/ZIP Code Phon e Number [facility] [address] [place] [address] HCAB - Hepatitis C Virus [place] with Reflex In-House (01/12/2019 2:27 PM CDT) [facility] Method Time Signature Hepatitis C Negative Negative 01/12/2019 [facility] Antibody (Non (Non 7:42 PM CDT LABORATORY Reactive) Reactive) Comment: Antibodies to HCV not detected. Does not exclude the possiblity of exposure to HCV. Specimen Anatomical Collection Method / Collection Time Recei rosemarie Time (Source) Location / Volume Laterality Blood Venipuncture / 01/12/2019 2:27 01/12/2019 2:27 Unknown PM CDT PM CDT Kenrick Juarez MD LAB_1 Performing Organization Address [facility] Phon e Number [facility] [address] [place] [address] RHF - Rheumatoid Factor (01/12/2019 2:27 PM CDT) [facility] Signature Rheumatoid <15 <=30 IU/mL 01/12/2019 [facility] Factor, 7:22 PM CDT LABORATORY Quantitative Specimen Anatomical Collection Method / Collection Time Recei rosemarie Time (Source) Location / Volume Laterality Blood Venipuncture / 01/12/2019 2:27 01/12/2019 2:27 Unknown PM CDT PM CDT Kenrick Juarez MD LAB_1 Performing Organization Address City/[facility] Phon e Number [facility] [address] [place] [address] CCPIG - Cyclic Citrullinated Peptide AB (01/12/2019 2:27 PM CDT) [facility] Method Time Signature Anti-CCP Antibody 1 [...] Kenrick Juarez MD LAB_1 Performing Organization Address City/[facility] Phon e Number [facility] [address] [place] [address] ESR - Sedimentation Rate (01/12/2019 2:27 PM CDT) [facility] Method Time Signature Sedimentation Rate 10 0 - 20 01/12/2019 [facility] mm/hr 3:50 PM CDT LABORATORY Specimen Anatomical Collection Method / Collection Time Recei rosemarie Time (Source) Location / Volume Laterality Blood Venipuncture / 01/12/2019 2:27 01/12/2019 2:27 Unknown PM CDT PM CDT Kenrick Juarez MD LAB_1 Performing Organization Address City/State/ZIP Code Phon e Number [facility] [address] [place] [address] ELCP - Electrophoresis Carbon To LYLE,Serum (01/12/2019 2:27 PM CDT) Component Value Ref Test Analysis Performed At [facility] Range Method Time Signature Total Protein 6.7 [...] CENTRAL LAB CDT Interpretation No monoclonal 01/14/2019 [facility] protein is 12:18 PM CENTRAL LAB detected in the CDT serum. Additional Not indicated. 01/14/2019 [facility] Testing 12:18 PM CENTRAL LAB CDT Signed Out By [facility] 01/14/2019 [facility] 12:18 PM CENTRAL LAB Laboratory CDT Specimen Anatomical Collection Method / Collection Time Recei rosemarie Time (Source) Location / Volume Laterality Blood Venipuncture / 01/12/2019 2:27 01/12/2019 2:27 Unknown PM CDT PM CDT Kenrick Juarez MD LAB_1 Performing Organization Address City/[facility]/ZIP Code Phon e Number [facility] [address] [address] CRP - C Reactive Protein (01/12/2019 2:27 PM CDT) P athologist Signature C-Reactive <0.5 0.0 - 0.7 01/12/2019 [facility] Protein mg/dL 3:17 PM CDT LABORATORY Specimen Anatomical Collection Method / Collection Time Recei rosemarie Time (Source) Location / Volume Laterality Blood Venipuncture / 01/12/2019 2:27 01/12/2019 2:27 Unknown PM CDT PM CDT Kenrick Juarez MD LAB_1 Performing Organization Address City/[facility]/ZIP Code Phon e Number [facility] [address] [place] [address] URIC - Uric Acid (01/12/2019 2:27 PM CDT) P athologist Signature Uric Acid 5.2 2.6 - 6.0 01/12/2019 [place] mg/dL 3:17 PM CDT LABORATORY Specimen Anatomical Collection Method / Collection Time Recei rosemarie Time (Source) Location / Volume Laterality Blood Venipuncture / 01/12/2019 2:27 01/12/2019 2:27 Unknown PM CDT PM CDT Kenrick Juarez MD LAB_1 Performing Organization Address City/[facility]/ZIP Code Phon e Number [facility] [address] [place] [address] XR Hand(s) Arthritis (01/12/2019 2:19 PM [...] hands documented in this encounter Care Teams Prototype Carpenter Relationship Specialty Start Date End Date Lew Grewal MD PCP - General Family Practice 12/10/[address] [place], [place] [address] [address] documented as of this encounter
--- OUTSIDE RECORDS SUMMARY | 2022-02-20 11:59 | XMS_ITS | Encounter Summary ---
:1955 Author [facility] Address [address], [place] [address] Care Team Providers Name Role Phone Unassigned, Provider Primary Care Provider Unavailable Encounter Details Date Type Department Care Team Description 10/11/2005 Orders Only [facility] 401 Marcello Monterroso MD [facility] [address] [place] [address]. [place] [address] Social History Tobacco Use Types Packs/Day Years [...] on filedocumented in this encounter Care Teams Painter Railroad Car Relationship Specialty Start Date End Date Unassigned, Provider PCP - General 01/12/00 08/29/[address] [place] [address] documented as of this encounter
--- OUTSIDE RECORDS SUMMARY | 2022-02-20 11:59 | XMS_ITS | Encounter Summary ---
:1955 Author [facility] Address [address] [address] Care Team Providers Name Role Phone Unassigned, Provider Primary Care Provider Unavailable Reason for Visit Reason Onset Date Comments RESULTS, TEST 11/01/2010 Encounter Details Date Type Department Care Team Description 11/01/2010 Telephone [facility] Marcello Russell MD RESULTS, TEST [address] [place], [place] [address] Social History Tobacco Use Types [...] is quite low; should begin B12 supplement ([id number]) cystsand get a repeat level and one month. Hemoglobin A1c indicates diabetic control needs improvement. Should followup with PCP on this. Dr. Russell documented in this encounter Plan of Treatment Not on filedocumented as of this encounter Visit Diagnoses Not on filedocumented in this encounter Care Teams Cigar Packer And Shader Relationship Specialty Start Date End Date Unassigned, Provider PCP - General 01/12/00 08/29/[address] [place] [address] documented as of this encounter
--- OUTSIDE RECORDS SUMMARY | 2022-02-20 11:59 | XMS_ITS | Encounter Summary ---
:1955 Author [facility] Address [address], [place] [address] Care Team Providers Name Role Phone Unassigned, Provider Primary Care Provider Unavailable Reason for Visit Reason Onset Date Comments MEDICATION, NOS 02/15/2006 Encounter Details Date Type Department Care Team Description 02/15/2006 Telephone [place] Marcello Monterroso MD MEDICATION, NOS [address] [facility] [place]. . [place], [place] [address] Social History Tobacco Use Types [...] Delilah Glez, AVA - 02/20/2006 9:44 AM ANALYSIS LEAD Rosemary was called back, given the information that was available regarding the Copaxone, told that if she wanted further information she would need to sign a MOHINDER and get the records faxed to the facility where the patient is now. Delilah Glez RN YSIS LEAD Delilah Glez RN - 02/15/2006 11:08 AM [facility] called, message left to call back. Delilah Glez, RN Lexy Erickson - 02/15/2006 10:37 AM [facility] calling with theses questions Regarding Avonix WHAT DOSE WAS PATIENT ON HOW LONG ANY OTHER SAME TYPE MEDS TRIED YSIS LEAD documented in this encounter Plan of Treatment Not on filedocumented as of this encounter Visit Diagnoses Not on filedocumented in this encounter Care Teams Section Supervisor Relationship Specialty Start Date End Date Unassigned, Provider PCP - General 01/12/00 08/29/[address] [place] [address] documented as of this encounter
--- OUTSIDE RECORDS SUMMARY | 2022-02-20 11:59 | XMS_ITS | Encounter Summary ---
:1955 Author Organization [facility] Address [address], [place] [address] Care Team Providers Name Role Phone Unassigned, Provider Primary Care Provider Unavailable Reason for Visit Reason Onset Date Comments LAB RESULTS 09/18/2005 elevated blood gluco se of 241 Encounter Details Date Type Department Care Team Description 09/19/2005 Telephone Specialty Center 401 Stacie Bautista LA B RESULTS (elevated Neurology Clinic AUTOMATIC VULCANIZING OPERATOR, JUNIOR RECRUITER blood glucose of 241) 401 [facility]. [address] [place] [address] [place], [place] [phone] [address] Social History Tobacco Use Types Packs/Day Years [...] on filedocumented in this encounter Care Teams Assembler Fluorescent Lights Relationship Specialty Start Date End Date Unassigned, Provider PCP - General 01/12/00 08/29/[address] [place] [address] documented as of this encounter
--- OUTSIDE RECORDS SUMMARY | 2022-02-20 11:59 | XMS_ITS | Encounter Summary ---
:1955 Author Organization [facility] Address [address] [place] [address] Care Team Providers Name Role Phone Unassigned, Provider Primary Care Provider Unavailable Encounter Details Date Type Department Care Team Description 10/19/2010 Orders Only [facility] Multiple sclerosis; [address] Abnormality of gait; [place], [place] [address] Other specified visual distu rbances [phone] Social History Tobacco Use Types Packs/Day Years [...] Component Value Ref Test Analysis Performed At [facility] Range Method Time Signature NMO-IgG <1.6 [facility] Reference Range: <1.6 U/mL NMO-IgG (NOTE) [facility] NMO Evaluation w/Reflex, S ?? Interpretive Comments ? No informative autoantibodies were detected in this ? evaluation. ??A negative result does not exclude a di agnosis ? of a neuromyelitis optica spectrum of disorders. For research use only Test Performed by: [facility] Interview [address], [place] [address] Specimen Anatomical Collection Method Collection Time Receive d Time (Source) Location / / Volume Laterality 10/19/2010 2:58 PM 1 3:04 CDT PM CDT Marcello Monterroso MD LAB_1 Performing Organization Address [facility]/ZIP Code Phon e Number [facility] [phone] [address] (ABNORMAL) VIT B12 & FOLATE (10/19/2010 2:58 PM CDT) athologist [facility] Vitamin B12 214 (L) 239 - 931 [facility] pg/ml Folate >20.0 >3.0 ng/ml [facility] Specimen Anatomical Collection Method Collection Time Receive d Time (Source) Location / / Volume Laterality 10/19/2010 2:58 PM 1 3:04 CDT PM CDT Marcello Monterroso MD LAB_1 Performing Organization Address [facility] Phon e Number [facility] [phone] [address] OSCAR SCREEN (10/19/2010 2:58 PM CDT) athologist [facility] OSCAR Screen Negative NEG [facility] Specimen Anatomical Collection Method Collection Time Receive d Time (Source) Location / / Volume Laterality 10/19/2010 2:58 PM 1 3:04 CDT PM CDT Marcello Monterroso MD LAB_1 Performing Organization Address [facility] Phon e Number [facility] [phone] [address] (ABNORMAL) HGB A1C (10/19/2010 2:58 PM CDT) athologist [facility] Hgb A1c 8.9 (H) 4.3 - 6.1 % [facility] Comment: The usual A1C goal for people with diabe yanna, age 18-75, is < 7.0%. Physicians may recommend a higher or lo wer goal for specific individuals. Specimen Anatomical Collection Method Collection Time Receive d Time (Source) Location / / Volume Laterality 10/19/2010 2:58 PM 1 3:04 CDT PM CDT Marcello Monterroso MD LAB_1 Performing Organization Address [facility] Code Phon e Number [facility] [phone] [facility] [address] [place] [phone] ESR (10/19/2010 2:58 PM CDT) athologist Signature ESR 2 0 - 20 [facility] mm/hr Specimen Anatomical Collection Method Collection Time Receive d Time (Source) Location / / Volume Laterality 10/19/2010 2:58 PM 1 3:04 CDT PM CDT Marcello Monterroso MD LAB_1 Performing Organization Address [facility] Phon e Number [facility] [phone] [facility] [address] [place] [phone] (ABNORMAL) HEMOGRAM/PLTS (10/19/2010 2:58 PM CDT) P athologist Signature WBC 12.5 (H) 4.0 - 11.0 [facility] k/ul RBC 4.53 4.0 - 5.2 [facility] M/ul Hemoglobin 14.4 12.0 - [facility] 16.0 g/dl HCT 41.9 36.0 - [facility] 46.0 % MCV 92.4 80 - 100 [facility] fl MCH 31.8 26 - 34 pg [facility] MCHC 34.5 32 - 36 [facility] g/dl RDW 13.3 11.5 - [facility] 14.5 % Platelets 418 150 - 450 [facility] k/ul Specimen Anatomical Collection Method Collection Time Receive d Time (Source) Location / / Volume Laterality 10/19/2010 2:58 PM 1 3:04 CDT PM CDT Marcello Monterroso MD LAB_1 Performing Organization Address [facility] Phon e Number [facility] [phone] [facility] [address] [place] [phone] BASIC METABOLIC PANEL (10/19/2010 2:58 PM CDT) [...] ml/min/1.7 3m2 Calcium 9.8 8.4 - 10.2 [facility] mg/dl Anion Gap 12 7 - 16 [facility] (calc.) mmol/L Specimen Anatomical Collection Method Collection Time Receive d Time (Source) Location / / Volume Laterality 10/19/2010 2:58 PM 1 3:04 CDT PM CDT Marcello Monterroso MD LAB_1 Performing Organization Address City/[facility] Phon e Number [facility] [phone] [phone] AST (SGOT) (10/19/2010 2:58 PM CDT) athologist Signature AST (SGOT) 38 0 - 55 U/L [facility] Specimen Anatomical Collection Method Collection Time Receive d Time (Source) Location / / Volume Laterality 10/19/2010 2:58 PM 1 3:04 CDT PM CDT Marcello Monterroso MD LAB_1 Performing Organization Address [facility] Phon e Number [facility] [phone] [phone] ALT (SGPT) (10/19/2010 2:58 PM CDT) athologist Signature ALT (SGPT) 43 0 - 69 U/L [facility] Specimen Anatomical Collection Method Collection Time Receive d Time (Source) Location / / Volume Laterality 10/19/2010 2:58 PM 1 3:04 CDT PM CDT Marcello Monterroso MD LAB_1 Performing Organization Address City/State/ZIP Code Phon e Number [facility] [phone] [facility] [address] [phone] documented in this encounter Visit Diagnoses Diagnosis Multiple sclerosis ([facility]) Multiple sclerosis Abnormality of gait Other specified visual disturbances documented in this encounter Care Teams Channel Machine Operator Relationship Specialty Start Date End Date Unassigned, Provider PCP - General 01/12/00 08/29/[address] [place] [address] documented as of this encounter
--- OUTSIDE RECORDS SUMMARY | 2022-02-20 11:59 | XMS_ITS | Encounter Summary ---
:1955 Author Organization [facility] Address [address], [place] [address] Care Team Providers Name Role Phone Unassigned, Provider Primary Care Provider Unavailable Encounter Details Date Type Department Care Team Description 11/10/2010 Correspondence External to External, Provid er PATIENT [place] [address] Social History Tobacco Use Types Packs/Day Years [...] on filedocumented in this encounter Care Teams Eclectic Doctor Relationship Specialty Start Date End Date Unassigned, Provider PCP - General 01/12/00 08/29/[address] [place] [address] documented as of this encounter
--- OUTSIDE RECORDS SUMMARY | 2022-02-20 11:59 | XMS_ITS | Encounter Summary ---
:1955 Author Organization [facility] Address [address] [place] [address] Care Team Providers Name Role Phone Unassigned, Provider Primary Care Provider Unavailable Encounter Details Date Type Department Care Team Description 09/21/2005 Orders Only External to Unknown, Physici an [address] [place] [address] (Wo rk) Social History Tobacco [...] from the Results sect ion by A Truist Scan Conversion [[id number]] on 03/19/2010 at 1:53 PM (File: [id number] [id number];) Transcriptions [facility], Provider - 09/21/2005 12:00 AM CDT Physician Unknown DUMMY/OTHER/AR documented in this encounter Visit Diagnoses Not on filedocumented in this encounter Care Teams Coffee Bar Attendant Relationship Specialty Start Date End Date Unassigned, Provider PCP - General 01/12/00 08/29/[address] [place] [address] documented as of this encounter
--- OUTSIDE RECORDS SUMMARY | 2022-02-20 11:59 | XMS_ITS | Encounter Summary ---
:1955 Author Organization [facility] Address [address], [place] [address] Care Team Providers Name Role Phone Lew Grewal MD Primary Care Provider Encounter Details Date Type Department Care Team Description 01/12/2019 Lab Visit [facility] Arthralgia, unspecified join t; [address] [employer] Primary osteoarthritis of shavon th hands; [place] [address] Myalgia [phone] Social History Tobacco Use Types Packs/Day Years [...] CK, Total 34 29 - 168 01/12/2019 [place] U/L 3:17 PM CDT LABORATORY Specimen Anatomical Collection Method / Collection Time Recei rosemarie Time (Source) Location / Volume Laterality Blood Venipuncture / 01/12/2019 2:27 01/12/2019 2:27 Unknown PM CDT PM CDT Kenrick Juarez MD LAB_1 Performing Organization Address City/State/ZIP Code Phon e Number [facility] [address] [place] [address] HCAB - Hepatitis C Virus [place] with Reflex In-House (01/12/2019 2:27 PM CDT) [facility] gist Method Time Signature Hepatitis C Negative Negative 01/12/2019 [facility] Antibody (Non (Non 7:42 PM CDT LABORATORY Reactive) Reactive) Comment: Antibodies to HCV not detected. Does not exclude the possiblity of exposure to HCV. Specimen Anatomical Collection Method / Collection Time Recei rosemarie Time (Source) Location / Volume Laterality Blood Venipuncture / 01/12/2019 2:27 01/12/2019 2:27 Unknown PM CDT PM CDT Kenrick Juarez MD LAB_1 Performing Organization Address [facility]/ZIP Code Phon e Number [facility] [address] [place] [address] RHF - Rheumatoid Factor (01/12/2019 2:27 PM CDT) Analysis Performed At [facility] logist Time Signature Rheumatoid <15 <=30 IU/mL 01/12/2019 [facility] Factor, 7:22 PM CDT LABORATORY Quantitative Specimen Anatomical Collection Method / Collection Time Recei rosemarie Time (Source) Location / Volume Laterality Blood Venipuncture / 01/12/2019 2:27 01/12/2019 2:27 Unknown PM CDT PM CDT Kenrick Juarez MD LAB_1 Performing Organization Address [facility] Phon e Number [facility] [address] [place] [place] [address] CCPIG - Cyclic Citrullinated Peptide AB (01/12/2019 2:27 PM CDT) [facility] Method Time Signature Anti-CCP Antibody 1 [...] Kenrick Juarez MD LAB_1 Performing Organization Address [facility] Phon e Number [employer] CENTRAL LAB [address] [address] ESR - Sedimentation Rate (01/12/2019 2:27 PM CDT) [facility] gist Method Time Signature Sedimentation Rate 10 0 - 20 01/12/2019 [place] mm/hr 3:50 PM CDT LABORATORY Specimen Anatomical Collection Method / Collection Time Recei rosemarie Time (Source) Location / Volume Laterality Blood Venipuncture / 01/12/2019 2:27 01/12/2019 2:27 Unknown PM CDT PM CDT Kenrick Juarez MD LAB_1 Performing Organization Address City/State/ZIP Code Phon e Number [facility] [address] [place] [address] ELCP - Electrophoresis [place] To LYLE,Serum (01/12/2019 2:27 PM CDT) Component Value Ref Test Analysis Performed At [facility] gist Range Method Time Signature Total Protein 6.7 6.4 - 01/14/2019 [facility] 8.3 12:18 PM CENTRAL LAB g/dL CDT Albumin 3.9 3.4 - 01/14/2019 [facility] 4.8 12:18 PM CENTRAL LAB g/dL CDT Alpha 1 0.3 0.2 - 01/14/2019 [facility] 0.5 12:18 PM CENTRAL LAB g/dL CDT Alpha 2 0.9 0.5 - 01/14/2019 [facility] 1.1 12:18 PM CENTRAL LAB g/dL CDT Beta 0.9 0.6 - 01/14/2019 [facility] 1.1 12:18 PM CENTRAL LAB g/dL CDT Gamma 0.8 0.7 - 01/14/2019 [facility] 1.6 12:18 PM CENTRAL LAB g/dL CDT Monoclonal Roberto 0.0 <=0.0 01/14/2019 [facility] g/dL 12:18 PM [facility]ENTRAL LAB CDT Interpretation No monoclonal 01/14/2019 [facility] protein is 12:18 PM CENTRAL LAB detected in the CDT serum. Additional Not indicated. 01/14/2019 [facility] Testing 12:18 PM [facility]TRAL LAB CDT Signed Out By [facility] 01/14/2019 [facility] 12:18 PM [facility]TRAL LAB Laboratory CDT Specimen Anatomical Collection Method / Collection Time Recei rosemarie Time (Source) Location / Volume Laterality Blood Venipuncture / 01/12/2019 2:27 01/12/2019 2:27 Unknown PM CDT PM CDT Kenrick Juarez MD LAB_1 Performing Organization Address City/State/ZIP Code Phon e Number [employer] [facility] [address] [place] [address] CRP - C Reactive Protein (01/12/2019 2:27 PM CDT) P athologist Signature C-Reactive <0.5 0.0 - 0.7 01/12/2019 [place] Protein mg/dL 3:17 PM CDT LABORATORY Specimen Anatomical Collection Method / Collection Time Recei rosemarie Time (Source) Location / Volume Laterality Blood Venipuncture / 01/12/2019 2:27 01/12/2019 2:27 Unknown PM CDT PM CDT Kenrick Juarez MD LAB_1 Performing Organization Address [facility] Phon e Number [facility] [address] [place], [place] [address] URIC - Uric Acid (01/12/2019 2:27 PM CDT) athologist Signature Uric Acid 5.2 2.6 - 6.0 01/12/2019 [place] mg/dL 3:17 PM CDT LABORATORY Specimen Anatomical Collection Method / Collection Time Recei rosemarie Time (Source) Location / Volume Laterality Blood Venipuncture / 01/12/2019 2:27 01/12/2019 2:27 Unknown PM CDT PM CDT Kenrick Juarez MD LAB_1 Performing Organization Address City/[facility] e Number [facility] [address] [place] [address] documented in this encounter Visit Diagnoses Diagnosis Arthralgia, unspecified joint Primary osteoarthritis of both hands Myalgia Mylagia and myositis, unspecified documented in this encounter Care Teams Learning Disabilities Specialist Relationship Specialty Start Date End Date Lew Grewal MD PCP - General Family Practice 12/10/[address] [place] [address] [place] [address] documented as of this encounter
--- OUTSIDE RECORDS SUMMARY | 2022-02-20 11:59 | XMS_ITS | Encounter Summary ---
:1955 Author Organization [facility] Address [address] [address] Care Team Providers Name Role Phone Lew Grewal MD Primary Care Provider Reason for Visit Reason Comments LAB RESULTS Encounter Details Date Type Department Care Team Description 01/13/2019 Telephone [facility] [address] Kenrick Juarez MD LAB RESULTS Rheumatology [address] [facility] [address] [place] [address] [place] [address] [phone] Social History Tobacco Use Types Packs/Day Years [...] on filedocumented in this encounter Care Teams Principal Statistical Scientist Relationship Specialty Start Date End Date Lew Grewal MD PCP - General Family Practice 12/10/[address] [place] [address] CHRISTINA MARTINEZ [address] documented as of this encounter
--- OUTSIDE RECORDS SUMMARY | 2022-02-20 12:00 | XMS_ITS | Encounter Summary ---
:1955 Author Organization [facility] Address [address] [address] Care Team Providers Name Role Phone Unassigned, [...] with the appointment information. Beck Khanna RN FOREIGN BANKNOTE TELLER SHEET METAL ROOFER >> CHRISTINE Fierro Sep 18, 2005 2:23 PM ADRYAN AT THE [facility] CALLED, FOR THE RESOURCE NURSE TO MAKE A APPT FOR THIS PATIENT MONCHO PHILIPPE IN 2 WEEKS. VIVIANE Sebastian 2 09/18/2005 2:23 PM documented in this encounter Plan of Treatment Not on filedocumented as of this encounter Visit Diagnoses Not on filedocumented in this encounter Care Teams Rolling Machine Operator Automatic Relationship Specialty Start Date End Date Unassigned, Provider PCP - General 01/12/00 08/29/11 [address] [place] [address] documented as of this encounter
--- OUTSIDE RECORDS SUMMARY | 2022-02-20 12:00 | XMS_ITS | Encounter Summary ---
:1955 Author Organization [facility] Address [address] [place] [address] Care Team Providers Name Role Phone Unassigned, [...] on filedocumented in this encounter Care Teams Blanket Cutting Machine Operator Relationship Specialty Start Date End Date Unassigned, Provider PCP - General 01/12/00 08/29/[address] [place] [address] documented as of this encounter
--- OUTSIDE RECORDS SUMMARY | 2022-02-20 12:00 | XMS_ITS | Encounter Summary ---
:1955 Author Organization [facility] Address [address] [place] [address] Care Team Providers Name Role Phone Unassigned, Provider Primary Care Provider Unavailable Encounter Details Date Type Department Care Team Description 02/10/2001 Office Visit [facility] Al[facility] Frank, ENURESIS NOS; [facility] PROLAPSE OF VAGINAL WALL [facility] [address] [place] [address] Social History Tobacco Use Types Packs/Day Years Used Date Smoking Tobacco: Never Assessed Sex Assigned at Date Recorded Not on file documented as of this encounter Plan of Treatment Not on filedocumented as of this encounter Visit Diagnoses Diagnosis Unspecified urinary incontinence 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
--- OUTSIDE RECORDS SUMMARY | 2022-02-20 12:00 | XMS_ITS | Encounter Summary ---
:1955 Author Organization [facility] Address [address] [address] Care Team Providers Name Role Phone Unassigned, Provider Primary Care Provider Unavailable Reason for Visit Reason Onset Date Comments MULTIPLE SCLEROSIS 08/28/2005 Encounter Details Date Type Department Care Team Description 08/28/2005 Telephone [facility] Marcello Monterroso MD MULTIPLE SCLEROSIS [address] [place], [place] [address] Social History Tobacco Use Types [...] in this encounter Care Teams Director Of Loss Prevention Relationship Specialty Start Date End Date Unassigned, Provider PCP - General 01/12/00 08/29/[address] [place] [address] documented as of this encounter
--- OUTSIDE RECORDS SUMMARY | 2022-02-20 12:00 | XMS_ITS | Encounter Summary ---
:1955 Author Organization [facility] [address] [place] [address] Care Team Providers Name Role Phone Unassigned, Provider Primary Care Provider Unavailable Encounter Details Date Type Department Care Team Description 02/28/2001 Office Visit [facility] Debbie Hayes ORGANIC AFFECTIVE Behavioral Health MD C[facility] [phone] [place], [place] [address] Social History Tobacco Use Types Packs/Day Years [...] just moved within the past month to [place], [place]. She is a bit more isolated, had grown up and lived in the [place] throughout her life prior to. She [...] some help for obsessions in the past. [place], she believes has probably been helpful. She feels though that moodiness has clearly been linked with exacerbations of her MS such as current state is. SUBSTANCE USE HISTORY: She reports that she had used marijuana daily up until spring. At that time, was caught by the [place] police and has stopped use since then. [...] hydrochlorothiazide, Atenolol, amitriptyline 100 mg hs, Premarin, [place] 450 mg Eskalith form bid, prn Codeine [...] SOCIAL HISTORY: Born and raised in the [place]. States father was practicing alcoholic until [...] just moved in the past month to [place], [place], and living on a farm. The patient states she typically doesn't drive because of MS symptoms although can drive when symptoms are not problematic. She has limited activities. Right now, says she is permanently watching events - following the events of the war and has really had difficulties connecting with others down in [place], feeling that they're good people and that [...] this fluctuates by her report. 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 [place] II: Deferred [place] III: Please refer to Medical History above. Primarily MS with fluctuating course. [place] IV: Stressors - moderate to severe. [place] V: Highest level of function in past [...] trial appears warranted including the use of [place]. She doesn't specifically recall trials of Depakote [...] and Zyprexa as possible alternatives should the [place], Ativan combination not be sufficiently helpful. She was encouraged to try to increase activities outside the home. Will follow up in roughly five weeks. raffaele Dictated: 02/28/2001 10:18:10 Marcello Hayes MD Transcribed: 03/03/2001 10:50:54 Doc #: [id number] Patient: YARY CALL Page 3 PSYCHIATRIC DATA BASE CONFIDENTIAL MEDICAL RECORD [address] [address] Page 1 Patient: YARY CALL [facility] Date: 02/28/2001 Date of : 1955 PSYCHIATRIC DATA BASE PER REWINDER documented in this encounter Plan of Treatment Not on filedocumented as of this encounter Visit Diagnoses Diagnosis Mood disorder in conditions classified e lsewhere ([facility]) Mood disorder in conditions classified e lsewhere documented in this encounter Care Teams Licensed Clinician Relationship Specialty Start Date End Date Unassigned, Provider PCP - General 01/12/00 08/29/[address] [place] [address] documented as of this encounter
--- OUTSIDE RECORDS SUMMARY | 2022-02-20 12:00 | XMS_ITS | Encounter Summary ---
:1955 Author Organization [facility] Address [address] [place] [address] Care Team Providers Name Role Phone No Primary/Referring, Phy Primary Care Provider Unavailable Encounter Details Date Type Department Care Team Description 02/07/2001 Orders Only Fredis Yan MD [address] [place], [place] [phone] [place] [address] [phone] (Wo rk) Social History Tobacco Use Types Packs/Day Years Used Date Smoking Tobacco: Never Assessed Sex Assigned at Date Recorded Not on file documented as of this encounter Plan of Treatment Not on filedocumented as of this encounter Procedures Procedure Name Priority Date/Time Associated Diagnosis Comme nts HEMOGRAM & Waiting 02/07/2001 5:36 PM Results f or this PLATELETS HALAL MEAT PACKER procedure are i n the results section. BASIC METABOLIC Waiting 02/07/2001 5:36 PM Result s for this PANEL HALAL MEAT PACKER procedure are i n the results section. documented in this encounter Results (ABNORMAL) BASIC METABOLIC PANEL (02/07/2001 5:36 PM HALAL MEAT PACKER) P athologist Signature BUN 17 10 - [...] Volume Laterality 02/07/2001 5:36 PM 1 5:51 HALAL MEAT PACKER PM HALAL MEAT PACKER Fredis Simmons MD LAB_1 Performing Organization Address [facility] Phon e Number [address] [address] [place], [place] [phone] HEMOGRAM+PLATELETS (02/07/2001 5:36 PM HALAL MEAT PACKER) P athologist Signature WBC 10.2 4.5 - [...] Volume Laterality 02/07/2001 5:36 PM 1 5:51 HALAL MEAT PACKER PM HALAL MEAT PACKER Fredis Simmons MD LAB_1 Performing Organization Address [facility] Phon e Number [address] [address] [place], [place] [phone] documented in this encounter Visit Diagnoses Not on filedocumented in this encounter Care Teams Trade Union Secretary Relationship Specialty Start Date End Date No Primary/Referring, Phy PCP - General 08/30/11 documented as of this encounter
--- OUTSIDE RECORDS SUMMARY | 2022-02-20 12:00 | XMS_ITS | Encounter Summary ---
:1955 Author [facility] Address [address] [address] Care Team Providers Name Role Phone Unassigned, Provider Primary Care Provider Unavailable Encounter Details Date Type Department Care Team Description 11/07/2000 Office Visit Emergency Dept MULTIPLE SCLEROSIS; [address] [facility] [place] [address] Social History Tobacco Use Types Packs/Day Years Used Date Smoking Tobacco: Never Assessed Sex Assigned at Date Recorded Not on file documented as of this encounter ED Notes Troy [place] - 11/07/2000 12:00 AM CDTREVISED Log Number: [...] lot of stress and weather in the [facility] has been phenomenally hot with record [...] positive. EXTREMITIES: The patient has 5/5 bilateral disbursing agent strength. The patient has dorsiflexion and plantar [...] further details. Dictation ends here by Dr. Harrsion and starts with Dr. Villarreal. ADDENDUM CONTINUING [...] instructions are to follow up KAMILLE with [facility]. Medications: Baclofen 10 mg p.o. t.i.d. The patient stable at time of discharge. jcs/mgd Dictated: 11/07/2000 23:35:17 Troy [place] MD/Glen Villarreal MD Transcribed: 11/08/2000 07:44:12 Patient seen with Agustin Thomas MD/Shane Hilton MD Revised: 11/08/2000 09:14:00 /[id number] Doc #: [id number] cc: [facility] Physicians Betty Linares MD, Primary 2 Page 2 Patient Name: YARY PHILIPPE Visit Date: 11/07/2000 EMERGENCY MEDICINE NOTE CONFIDENTIAL MEDICAL RECORD [address] [phone] Page 1 Patient: YARY PHILIPPE [facility] 1955 Visit Date: 11/07/2000 EMERGENCY MEDICINE NOTE documented in this encounter Plan of Treatment Not on filedocumented as of this encounter Visit Diagnoses Diagnosis Multiple sclerosis (HRC) Multiple sclerosis Spasm of muscle documented in this encounter Care Teams Senior Database Administrator Relationship Specialty Start Date End Date Unassigned, Provider PCP - General 01/12/00 08/29/[address] [place] [address] documented as of this encounter
--- OUTSIDE RECORDS SUMMARY | 2022-02-20 12:00 | XMS_ITS | Encounter Summary ---
:1955 Author Organization [facility] Address [address] [place] [address] Care Team Providers Name Role Phone Unassigned, Provider Primary Care Provider Unavailable Encounter Details Date Type Department Care Team Description 12/29/2004 Scanned History External to External, Provid er [facility] [place] [address] Social History Tobacco Use Types Packs/Day Years [...] on filedocumented in this encounter Care Teams Bag Maker Relationship Specialty Start Date End Date Unassigned, Provider PCP - General 01/12/00 08/29/[address] [place] [address] documented as of this encounter
--- OUTSIDE RECORDS SUMMARY | 2022-02-20 12:00 | XMS_ITS | Encounter Summary ---
:1955 Author [facility] Address [address], [place] [address] Care Team Providers Name Role Phone Unassigned, Provider Primary Care Provider Unavailable Encounter Details Date Type Department Care Team Description 02/10/2001 Office Visit [facility] Charly Narayanan MULTIPLE SCLEROSIS; [facility] AMD CHEST PAIN NOS UNASSIGNED CLINI C [facility] [address] [place] [id number] Social History Tobacco Use Types Packs/Day Years [...] 02/06/2001 18:44:00 Transcribed: 02/12/2001 16:14:32 Doc #: [id number] PATIENT NAME: YARY PHILIPPE VISIT DATE: 02/06/2001 AGE: 45Y [facility] Provider Signature Page 2 Confidential Medical Record [facility] [address] [place] [address] ?? [place] [address] Page Patient: YARY PHILIPPE Visit Date: 02/06/2001 Charly Narayanan MD Date of : 1955 VISIT DATE: 02/06/2001 AGE: 45Y [facility] Provider Signature AND ALCOHOL COUNSELOR documented in this encounter Plan of Treatment Not on filedocumented as of this encounter Visit Diagnoses Diagnosis Multiple sclerosis (HRC) Multiple sclerosis Chest pain, unspecified documented in this encounter Care Teams School Clerk Relationship Specialty Start Date End Date Unassigned, Provider PCP - General 01/12/00 08/29/[address] [place] [address] documented as of this encounter
--- OUTSIDE RECORDS SUMMARY | 2022-02-20 12:00 | XMS_ITS | Encounter Summary ---
:1955 Author Organization [facility] Address [address] [place] [address] Care Team Providers Name Role Phone Unassigned, Provider Primary Care Provider Unavailable Reason for Referral Specialty Diagnoses / Procedures Referred By Contact Refer red To Contact Marcello Monterroso MD [address] [place] [address] Referral ID Status Reason Start Date Expiration Date Visits Requ ested Visits Authorized Specialty Diagnoses / Procedures Referred By Contact Ana avila To Contact Marcello Monterroso MD [address] [place] [address] Referral ID Status Reason Start Date Expiration Date Visits Requ ested Visits Authorized Specialty Diagnoses / Procedures Referred By Contact Ana avila To Contact Marcello Monterroso MD [address] [place] [address] Referral ID Status Reason Start Date Expiration Date Visits Requ ested Visits Authorized Specialty Diagnoses / Procedures Referred By Contact Ana avila To Contact Marcello Monterroso MD [address] [place] [address] Referral ID Status Reason Start Date Expiration Date Visits Requ ested Visits Authorized Reason for Visit Reason Comments Follow-up, NOS MS Encounter Details Date Type Department Care Team Description 09/06/2005 Office Visit [facility] Marcello Monterroso, MULTIPLE SCLEROSIS (Primary Dx); [address] Gabbi [place] MEMORY LOSS; [place] [address] ABNORMALITY OF GAIT [phone] Social History Tobacco Use Types Packs/Day Years [...] documented in this encounter Patient Instructions Patient Rwnbwalyrrlz81/08/2006 9:15 AM CDT Schedule brain MRI and [...] gait documented in this encounter Care Teams Features Reporter Relationship Specialty Start Date End Date Unassigned, Provider PCP - General 01/12/00 08/29/[address] [place] [address] documented as of this encounter
--- OUTSIDE RECORDS SUMMARY | 2022-02-20 12:00 | XMS_ITS | Encounter Summary ---
:1955 Author Organization [facility] Address [address] [place] [address] Care Team Providers Name Role Phone Unassigned, Provider Primary Care Provider Unavailable Encounter Details Date Type Department Care Team Description 09/12/2004 [facility] Marcello Monterroso, CERTIFICATE OF MEDICAL [address] Gabbi [place] NECESSITY/PATIENT [place], [place] [address] FUNCTIONAL ASSESSMENT [phone] Social History Tobacco Use Types Packs/Day Years [...] on filedocumented in this encounter Care Teams Faculty Support Coordinator Relationship Specialty Start Date End Date Unassigned, Provider PCP - General 01/12/00 08/29/[address] [place] [address] documented as of this encounter
--- OUTSIDE RECORDS SUMMARY | 2022-02-20 12:00 | XMS_ITS | Encounter Summary ---
:1955 Author Organization [facility] Address [address] [place] [address] Care Team Providers Name Role Phone Unassigned, Provider Primary Care Provider Unavailable Encounter Details Date Type Department Care Team Description 11/05/2003 Correspondence None Unknown, Physici an [facility] [address] [place], [place] [id number] (Wo rk) Social History Tobacco Use Types Packs/Day Years Used Date Smoking Tobacco: Never Assessed Sex Assigned at Date Recorded Not on file documented as of this encounter Progress Notes Unknown, Physician - 11/05/2003 12:00 AM CDT documented in this encounter Plan of Treatment Not on filedocumented as of this encounter Visit Diagnoses Not on filedocumented in this encounter Care Teams Records Associate Relationship Specialty Start Date End Date Unassigned, Provider PCP - General 01/12/00 08/29/11 [address] [place] [address] documented as of this encounter
--- OUTSIDE RECORDS SUMMARY | 2022-02-20 12:00 | XMS_ITS | Encounter Summary ---
:1955 Author Organization [facility] Address [address] [place] [address] Care Team Providers Name Role Phone Unassigned, Provider Primary Care Provider Unavailable Encounter Details Date Type Department Care Team Description 11/08/2003 Correspondence None Unknown, Physici an [facility] to [facility] [address] [place], [place] [id number] (Wo rk) Social History Tobacco Use Types Packs/Day Years Used Date Smoking Tobacco: Never Assessed Sex Assigned at Date Recorded Not on file documented as of this encounter Progress Notes Unknown, Physician - 11/08/2003 12:00 AM CDT documented in this encounter Plan of Treatment Not on filedocumented as of this encounter Visit Diagnoses Not on filedocumented in this encounter Care Teams Assistant Maintenance Manager Relationship Specialty Start Date End Date Unassigned, Provider PCP - General 01/12/00 08/29/11 [address] [place] [address] documented as of this encounter
--- OUTSIDE RECORDS SUMMARY | 2022-02-20 12:00 | XMS_ITS | Encounter Summary ---
:1955 Author [facility] Address [address] [place] [address] Care Team Providers Name Role Phone Unassigned, [...] 11/14/2000 14:42:17 Transcribed: 11/15/2000 14:42:12 Doc #: [id number] PATIENT NAME: YARY PHILIPPE VISIT DATE: 11/14/2000 AGE: 45Y [facility] Provider Signature Page 1 Confidential Medical Record [facility] [address] [place] [address] ?? [place] [address] Page Patient: YARY PHILIPPE Visit Date: 11/14/2000 Betty Linares MD Date of : 1955 VISIT DATE: 11/14/2000 AGE: 45Y [facility] Provider Signature Betty Montalvo - [...] 11/14/2000 14:42:17 Transcribed: 11/15/2000 14:45:04 Doc #: [id number] PATIENT NAME: YARY PHILIPPE VISIT DATE: 11/14/2000 AGE: 45Y [facility] Provider Signature Page 1 Confidential Medical Record [facility] ?? [place] [address] Page Patient: YARY PHILIPPE Visit Date: 11/14/2000 Betty Linares MD Date of : 1955 VISIT DATE: 11/14/2000 AGE: 45Y [facility] Provider Signature documented in this encounter Plan of Treatment Not on filedocumented as of this encounter Visit Diagnoses Diagnosis Multiple sclerosis (HRC) Multiple sclerosis documented in this encounter Care Teams Comb Machine Operator Relationship Specialty Start Date End Date Unassigned, Provider PCP - General 01/12/00 08/29/[address] [place] [address] documented as of this encounter
--- OUTSIDE RECORDS SUMMARY | 2022-02-20 12:00 | XMS_ITS | Encounter Summary ---
:1955 [facility] Address [address] [place] [address] Care Team Providers Name Role Phone Unassigned, Provider Primary Care Provider Unavailable Reason for Referral Specialty Diagnoses / Procedures Referred By Contact Refer red To Contact Stacie Bautista, MITCH POLLARD [address] [place] [address] Referral ID Status Reason Start Date Expiration Date Visits Requ ested Visits Authorized Reason for Visit Reason Comments MEMORY,LOSS OF testing Encounter Details Date Type Department Care Team Description 09/18/2005 Office Visit Specialty Center Stacie Bautista, ABRAHAM LE SCLEROSIS (Primary Dx); [facility] MITCH POLLARD MEMORY LOSS; [address] [place] [address] [place], [place] [phone] Social History Tobacco Use Types Packs/Day Years [...] documented in this encounter Patient Instructions Patient Kkkqmbwwmgzo97/20/2006 12:45 PM CDT The following instructions are [...] another patient for that time. Please call [phone] with any concerns regarding your visit today [...] RESULTS: Please call the Neurology Department at [phone], in 10 day(s) after your lab test, [...] concerns. Please call the neurology department at [phone] if you have any questions related to [...] notified via phone of results. Stacie Bautista, ROSITA S:Yary Call is a 50 yr old [...] Maintains good eye contact during the visit. [facility] Short Mental Status Exam (29-35 indicative of mild cognitive impairment; 29 or less detects dementia):(STMS, [facility] Short Form) ??? Orientation 8/8, Attention 6/7, [...] bipolar disease. Score of 34/38 on the [facility] Short Mental Status Exam is not indicative [...] in some time. 5. I requested the strike off machine operator to help her figure out when she [...] to 5 seconds but does have swaying. Fwpffj-tm-uqen test is fairly accurate bilaterally, she has a little more trouble with the left hand then the right hand but there is no dysmetria noted. Rapid alternating movements with fingers are fairly smooth. Lobl-qr-pqpd test is smooth bilaterally. Right big toe [...] P: 1. Please see plan found in [facility] under the Memory Evaluation note. DIAGNOSES: Multiple sclerosis (340) Memory loss (780.93) Bipolar disease (296.80) P cc: MD Stacie Allison RN,POWER TOOL REPAIRER Marcello Monterroso MD documented in this encounter Plan of Treatment Not on filedocumented as of this encounter Results (ABNORMAL) BASIC METABOLIC PANEL (09/18/2005 2:29 PM CDT) [facility] Method Time Signature BUN 13 10 - [...] Bautista APRN, CNP LAB_1 Performing Organization Address [facility] Phon e Number [facility] [phone] [address] LYME ANTIBODY (09/18/2005 2:29 PM CDT) athologist Signature Lyme Antibody 0.46 <0.75 [facility] Ratio Comment: Negative Specimen Anatomical Collection Method Collection Time Receive d Time (Source) Location / / Volume Laterality 09/18/2005 2:29 PM 6 2:31 CDT PM CDT Stacie Bautista APRN, CNP LAB_1 Performing Organization Address [facility] Phon e Number [facility] [phone] [address] TSH, SENSITIVE (WITH REFLEX) (09/18/2005 2:29 PM CDT) athologist Signature TSH, with 2.46 0.3 - 5.0 [facility] Reflex uIU/ml Specimen Anatomical Collection Method Collection Time Receive d Time (Source) Location / / Volume Laterality 09/18/2005 2:29 PM 6 2:31 CDT PM CDT Stacie Bautista APRN, CNP LAB_1 Performing Organization Address [facility] Phon e Number [facility] Geron [phone] [address] (ABNORMAL) HEMOGRAM/PLTS/DIFF (09/18/2005 2:29 PM CDT) [facility] gist Method Time Signature WBC 10.5 4.0 - 11.0 [facility] k/ul RBC 4.35 4.0 - 5.2 [facility] M/ul Hemoglobin 13.6 12.0 - [facility] 16.0 g/dl HCT 40.8 36.0 - [facility] 46.0 % MCV 93.9 80 - 100 [facility] fl MCH 31.3 26 - 34 pg [facility] MCHC 33.4 32 - 36 % [facility] RDW 13.3 11.5 - [facility] 14.5 % Platelets 354 150 - 450 [facility] k/ul PMN/Band 45 43 - 72 % [facility] Lymph 43 17 - 43 % [facility] [place] 5 4 - 12 % [facility] Eos 6 0 - 8 % [facility] Baso 1 0 - 1 % [facility] Neutrophil 4.7 1.8 - 7.7 [facility] Absolute k/ul Lymph Absolute 4.5 1.0 - 4.8 [facility] k/ul [place] Absolute 0.5 0.1 - 0.7 [facility] k/ul Eos Absolute 0.7 (H) 0.0 - 0.5 [facility] k/ul Baso Absolute 0.1 0.0 - 0.2 [facility] k/ul Specimen Anatomical Collection Method Collection Time Receive d Time (Source) Location / / Volume Laterality 09/18/2005 2:29 PM 6 2:31 CDT PM CDT Stacie Bautista APRN, CNP LAB_1 Performing Organization Address [facility] Phon e Number [employer] [phone] [phone] OSCAR SCREEN (09/18/2005 2:29 PM CDT) P athologist Signature OSCAR Screen Negative NEG [facility] Specimen Anatomical Collection Method Collection Time Receive d Time (Source) Location / / Volume Laterality 09/18/2005 2:29 PM 6 2:31 CDT PM CDT Stacie Bautista APRN, CNP LAB_1 Performing Organization Address [facility] Phon e Number [employer] [phone] [facility] [address] [place] [phone] VIT B12 & FOLATE (09/18/2005 2:29 PM CDT) athologist Signature Vitamin B12 235 211 - 911 [facility] pg/ml Folate 5.3 >3.0 ng/ml [facility] Specimen Anatomical Collection Method Collection Time Receive d Time (Source) Location / / Volume Laterality 09/18/2005 2:29 PM 6 2:31 CDT PM CDT Stacie Bautista APRN, CNP LAB_1 Performing Organization Address City/[facility]/ZIP Code Phon e Number [facility] Geron [phone] [address] (ABNORMAL) HGB A1C (09/18/2005 2:29 PM CDT) athologist [facility] Hgb A1c 7.7 (H) 4.3 - 6.1 % [facility] Specimen Anatomical Collection Method Collection Time Receive d Time (Source) Location / / Volume Laterality 09/18/2005 2:29 PM 6 2:31 CDT PM CDT Stacie Bautista APRN, CNP LAB_1 Performing Organization Address [facility] Phon e Number [employer] [phone] [address] AST (SGOT) (09/18/2005 2:29 PM CDT) athologist Signature AST (SGOT) 24 <45 U/L [facility] Specimen Anatomical Collection Method Collection Time Receive d Time (Source) Location / / Volume Laterality 09/18/2005 2:29 PM 6 2:31 CDT PM CDT Stacie Bautista APRN, CNP LAB_1 Performing Organization Address [facility] Phon e Number [facility] Geron [phone] [address] ALT (SGPT) (09/18/2005 2:29 PM CDT) P athologist Signature ALT (SGPT) 21 0 - 55 U/L [employer] Specimen Anatomical Collection Method Collection Time Receive d Time (Source) Location / / Volume Laterality 09/18/2005 2:29 PM 6 2:31 CDT PM CDT Stacie Bautista APRN, POWER TOOL REPAIRER LAB_1 Performing Organization Address City/State/ZIP Code Phon e Number [facility] [phone] [facility] [address] [address] documented in this encounter Visit Diagnoses Diagnosis Multiple sclerosis (HRC) - Primary Multiple sclerosis Memory loss Bipolar disorder, unspecified (HRC) Bipolar disorder, unspecified documented in this encounter Care Teams Childcare Center Administrator Relationship Specialty Start Date End Date Unassigned, Provider PCP - General 01/12/00 08/29/11 [address] [place] [address] documented as of this encounter
--- OUTSIDE RECORDS SUMMARY | 2022-02-20 12:00 | XMS_ITS | Encounter Summary ---
:1955 Author Organization [facility] Address [address] [place] [address] Care Team Providers Name Role Phone Unassigned, Provider Primary Care Provider Unavailable Encounter Details Date Type Department Care Team Description 01/10/2001 Office Visit [facility] Sabina Zhu MD ENURESIS NOS; [facility] [address] [place] [address] (Wo rk) Social History Tobacco [...] patient has been discussed with Dr. Gonzalez. [facility] Dictated: 01/10/2001 15:31:00 Transcribed: 01/14/2001 13:58:41 Doc #: [id number] Braydon Gonzalez MD PATIENT NAME: YARY PHILIPPE VISIT DATE: 01/10/2001 AGE: 45Y [facility] Provider Signature Page 2 Confidential Medical Record [facility] [address] [facility] ?? [place] [address] Page Patient: YARY PHILIPPE Visit Date: 01/10/2001 Sabina Zhu MD Date of : 1955 VISIT DATE: 01/10/2001 AGE: 45Y [facility] Provider Signature documented in this encounter Plan of Treatment Not on filedocumented as of this encounter Visit Diagnoses Diagnosis Unspecified urinary incontinence Multiple sclerosis (HRC) Multiple sclerosis documented in this encounter Care Teams Residential Nurse Relationship Specialty Start Date End Date Unassigned, Provider PCP - General 01/12/00 08/29/[address] [place] [address] documented as of this encounter
--- OUTSIDE RECORDS SUMMARY | 2022-02-20 12:00 | XMS_ITS | Encounter Summary ---
:1955 Author Organization [facility] Address [address] [address] Care Team Providers Name Role Phone Unassigned, Provider Primary Care Provider Unavailable Encounter Details Date Type Department Care Team Description 09/18/2005 Notes/Orders Specialty Center 401 Stacie Bautista, KANE RN, MEMORY LOSS Neurology Clinic SALON COORDINATOR 401 [facility]. [address] [place] [address] [place] [address] [phone] (Wo rk) Social History Tobacco Use Types [...] BASIC METABOLIC PANEL (09/18/2005 2:29 PM CDT) [facility] gist Method Time Signature BUN 13 10 [...] Bautista APRN, CNP LAB_1 Performing Organization Address [facility] Phon e Number [facility] [phone] [facility] [address] [place] [address] LYME ANTIBODY (09/18/2005 2:29 PM CDT) athologist Signature Lyme Antibody 0.46 <0.75 [facility] Ratio Comment: Negative Specimen Anatomical Collection Method Collection Time Receive d Time (Source) Location / / Volume Laterality 09/18/2005 2:29 PM 6 2:31 CDT PM CDT Stacie Bautista APRN, CNP LAB_1 Performing Organization Address [facility] Phon e Number [facility] [phone] [address] TSH, SENSITIVE (WITH REFLEX) (09/18/2005 2:29 PM CDT) athologist Signature TSH, with 2.46 0.3 - 5.0 [facility] Reflex uIU/ml Specimen Anatomical Collection Method Collection Time Receive d Time (Source) Location / / Volume Laterality 09/18/2005 2:29 PM 6 2:31 CDT PM CDT Stacie Bautista APRN, CNP LAB_1 Performing Organization Address [facility] Phon e Number [facility] [phone] [address] (ABNORMAL) HEMOGRAM/PLTS/DIFF (09/18/2005 2:29 PM CDT) [facility] gist Method Time Signature WBC 10.5 4.0 - 11.0 [facility] k/ul RBC 4.35 4.0 - 5.2 [facility] M/ul Hemoglobin 13.6 12.0 - [facility] 16.0 g/dl HCT 40.8 36.0 - [facility] 46.0 % MCV 93.9 80 - 100 [facility] fl MCH 31.3 26 - [address] [facility] MCHC 33.4 32 - 36 % [facility] RDW 13.3 11.5 - [facility] 14.5 % Platelets 354 150 - 450 [facility] k/ul PMN/Band 45 43 - 72 % [facility] Lymph 43 17 - 43 % [facility] [place] 5 4 - 12 % [facility] Eos 6 0 - 8 % [facility] Baso 1 0 - 1 % [facility] Neutrophil 4.7 1.8 - 7.7 [facility] Absolute k/ul Lymph Absolute 4.5 1.0 - 4.8 [facility] k/ul [place] Absolute 0.5 0.1 - 0.7 [facility] k/ul Eos Absolute 0.7 (H) 0.0 - 0.5 [facility] k/ul Baso Absolute 0.1 0.0 - 0.2 [facility] k/ul Specimen Anatomical Collection Method Collection Time Receive d Time (Source) Location / / Volume Laterality 09/18/2005 2:29 PM 6 2:31 CDT PM CDT Stacie Bautista APRN, CNP LAB_1 Performing Organization Address [facility] Phon e Number [employer] [phone] [phone] OSCAR SCREEN (09/18/2005 2:29 PM CDT) P athologist Signature OSCAR Screen Negative NEG [facility] Specimen Anatomical Collection Method Collection Time Receive d Time (Source) Location / / Volume Laterality 09/18/2005 2:29 PM 6 2:31 CDT PM CDT Stacie Bautista APRN, CNP LAB_1 Performing Organization Address [facility] Phon e Number [facility] [employer] [phone] [facility] [address] [place] [phone] VIT B12 & FOLATE (09/18/2005 2:29 PM CDT) athologist Signature Vitamin B12 235 211 - 911 [facility] pg/ml Folate 5.3 >3.0 ng/ml [facility] Specimen Anatomical Collection Method Collection Time Receive d Time (Source) Location / / Volume Laterality 09/18/2005 2:29 PM 6 2:31 CDT PM CDT Stacie Bautista APRN, CNP LAB_1 Performing Organization Address [facility] Phon e Number [facility] [employer] [phone] [address] (ABNORMAL) HGB A1C (09/18/2005 2:29 PM CDT) athologist Signature Hgb A1c 7.7 (H) 4.3 - 6.1 % [facility] Specimen Anatomical Collection Method Collection Time Receive d Time (Source) Location / / Volume Laterality 09/18/2005 2:29 PM 6 2:31 CDT PM CDT Stacie Bautista APRN, CNP LAB_1 Performing Organization Address [facility] Phon e Number [employer] [phone] [address] AST (SGOT) (09/18/2005 2:29 PM CDT) athologist Signature AST (SGOT) 24 <45 U/L [facility] Specimen Anatomical Collection Method Collection Time Receive d Time (Source) Location / / Volume Laterality 09/18/2005 2:29 PM 6 2:31 CDT PM CDT Stacie Bautista APRN, CNP LAB_1 Performing Organization Address [facility] Phon e Number [employer] [phone] [address] ALT (SGPT) (09/18/2005 2:29 PM CDT) athologist Signature ALT (SGPT) 21 0 - 55 U/L [facility] Specimen Anatomical Collection Method Collection Time Receive d Time (Source) Location / / Volume Laterality 09/18/2005 2:29 PM 2:31 CDT PM CDT Stacie Bautista APRN, CNP LAB_1 Performing Organization Address City/State/ZIP Code Phon e Number [facility] [phone] [facility] [address] [address] documented in this encounter Visit Diagnoses Diagnosis Memory loss documented in this encounter Care Teams Supervisor Drilling And Shooting Relationship Specialty Start Date End Date Unassigned, Provider PCP - General 01/12/00 08/29/11 [address] [place] [address] documented as of this encounter
--- OUTSIDE RECORDS SUMMARY | 2022-02-20 12:00 | XMS_ITS | Encounter Summary ---
:1955 Author Organization [facility] Address [address] [address] Care Team Providers Name Role Phone Unassigned, Provider Primary Care Provider Unavailable Encounter Details Date Type Department Care Team Description 02/09/2001 Office Visit Emergency Dept MULTIPLE SCLEROSIS [address] [place] [address] Social History Tobacco Use Types Packs/Day Years [...] upper and lower extremities. Equal and bilateral hvac tech strength. She was ambulatory. Pinprick sensation to [...] seen with Ho Diaz MD Doc #: [id number] cc: Betty Linares MD, Primary Alonso Hoover MD, Referring 1 Page 1 Patient Name: YARY PHILIPPE Visit Date: 02/09/2001 EMERGENCY MEDICINE NOTE CONFIDENTIAL MEDICAL RECORD [address] [address] Page 1 Patient: [facility]IPPE [facility] 1955 Visit Date: 02/09/2001 EMERGENCY MEDICINE NOTE MA CENTER TECHNICIAN documented in this encounter Plan of Treatment Not on filedocumented as of this encounter Visit Diagnoses Diagnosis Multiple sclerosis (HRC) Multiple sclerosis documented in this encounter Care Teams Diesel Powerplant Mechanic Helper Relationship Specialty Start Date End Date Unassigned, Provider PCP - General 01/12/00 08/29/[address] [place] [address] documented as of this encounter
--- OUTSIDE RECORDS SUMMARY | 2022-02-20 12:00 | XMS_ITS | Encounter Summary ---
:1955 Author Organization [facility] Address [address] [place] [address] Care Team Providers Name Role Phone No Primary/Referring, Phy Primary Care Provider Unavailable Encounter Details Date Type Department Care Team Description 02/07/2001 Orders Only Fredis Yan MD [address] [place], [place] [phone] [place] [address] [phone] (Wo rk) Social History Tobacco Use Types Packs/Day Years Used Date Smoking Tobacco: Never Assessed Sex Assigned at Date Recorded Not on file documented as of this encounter Plan of Treatment Not on filedocumented as of this encounter Procedures Procedure Name Priority Date/Time Associated Comments Diagnosis UA, MICROSCOPIC IF Waiting 02/07/2001 5:36 PM Res ults for this MEETS CRITERIA API PRODUCT MANAGER procedure are in the results section. UA MACRO BILLING Routine 02/07/2001 5:36 PM Resul ts for this API PRODUCT MANAGER procedure are i n the results section. documented in this encounter Results UA MICROSCOPIC IF (02/07/2001 5:36 PM API PRODUCT MANAGER) [facility] Method Time Signature Urine Microscopic [facility] Comments exam not indicated Urine Color Yellow [facility] Urine Clarity Clear [facility] Specific 1.011 1.005 - [facility] [place],Ur 1.030 pH, Urine 5.0 4.5 - 8.0 [...] Volume Laterality 02/07/2001 5:36 PM 1 5:49 API PRODUCT MANAGER PM API PRODUCT MANAGER Fredis Simmons MD LAB_1 Performing Organization Address [facility]/ZIP [facility] Phon e Number [address] [address] [place], [place] [phone] UA MACRO BILLING (02/07/2001 5:36 PM API PRODUCT MANAGER) [facility] gist Method Time Signature Bill, UA Billed for [facility] Performed Specimen Anatomical Collection Method Collection Time Receive d Time (Source) Location / / Volume Laterality 02/07/2001 5:36 PM 1 5:49 API PRODUCT MANAGER PM API PRODUCT MANAGER Fredis Simmons MD LAB_1 Performing Organization Address City/[facility] Phon e Number [address] [address] [place], [place] [phone] documented in this encounter Visit Diagnoses Not on filedocumented in this encounter Care Teams Extrusion Machine Operator Relationship Specialty Start Date End Date No Primary/Referring, Phy PCP - General 08/30/11 documented as of this encounter
--- OUTSIDE RECORDS SUMMARY | 2022-02-20 12:00 | XMS_ITS | Encounter Summary ---
:1955 Author Organization [facility] Address [address] [place] [address] Care Team Providers Name Role Phone Unassigned, Provider Primary Care Provider Unavailable Encounter Details Date Type Department Care Team Description 10/31/2003 Office Visit Fransisco Sarabia MD [address] [place], [place] [address] SKIN SENSATION DISTURB; Nereida Reyes MD [address] [place] [address] [phone] STREP SORE THROAT; MULTIPLE SCLERO SIS; ACIDOSIS; [...] a cranberry pill. She wondered if her tpunmcs-hg-jdk was poisoning her. Otherwise, there was nothing further elucidated from further history. Toxicology and PharmD were consulted and felt her medications did not play a role in her lactic acidosis. We also discussed these findings with the alteration manager of the laboratory who felt that this was highly unlikely to be error in terms of the machine as the quality assurance director was done on the machine twice daily [...] physician. She has been previously followed at [facility], and she was willing to have close followup at [facility] for her lactic acidosis as an outpatient. [...] an outpatient. She was also given the [phone] Help-Line phone number. DISPOSITION: The patient was discharged in stable condition to home. Activity as tolerated. She is on room air. Diet is low cholesterol. FOLLOWUP 1. [facility] in 1 week. She should have a lactate and chemistry-7 checked. Her fasting blood sugar should be checked and will be helpful in assessing her diabetes. She is in the process of setting up a new primary care physician and will schedule this appointment on her own. 2. Neurology clinic, Dr. Marcello Monterroso, at [facility] in 2 weeks. 3. Colonoscopy to [...] any questions, please contact this dictator at [phone]. mmj Dictated: 11/11/2003 22:39:43 Julius Tanner MD Transcribed: 11/12/2003 00:08:40 Staff: Nabeel Gonzáles MD Doc #: [id number] cc: MD Nabeel Garcia MD, Attending [facility] Marcello Monterroso MD [facility], 1 Page 2 Patient Name: YARY PHILIPPE DISCHARGE SUMMARY CONFIDENTIAL MEDICAL RECORD [address] [address] Page 1 Patient: YARY PHILIPPE Location: HPN: [id number] Admit Date: 10/31/2003 Date of : 1955 [...] patient is followed for this at the [facility]. She also has bipolar affective disorder for [...] this, of course, would include seizures, especially sehmj-dmqxxl-mwtq seizures. The infection etiology and especially shock, [...] please feel free to call toxicology at [phone]. The toxicology service appreciates the opportunity to participate in this patient's interesting problem and will be happy to continue to follow the patient with you if there are any further issues presenting. TIME WITH PATIENT: Approximately 30 minutes. sko Dictated: 11/03/2003 17:20:09 Cachorro Ye MD Transcribed: 11/03/2003 19:43:56 Doc #: [id number] cc: Daquan Nunez MD 1 Page 2 Patient Name: YARY PHILIPPE CONSULTATION CONFIDENTIAL MEDICAL RECORD [address] [address] Page 1 Patient: YARY PHILIPPE Location: 9E HPN: [id number] Admit Date: 10/31/2003 Date of : 1955 [...] was followed by a neurologist was at [facility] per Dr. Guzman. She has been on [...] was 5/5 x 4. Coordination was normal. Hkaprc-uyox-iaruvb, rapid alternating movements, and ibyt-dpqy-pezv tests were intact bilaterally. Sensory exam: The [...] Su MD Transcribed: 11/01/2003 09:49:06 Doc #: [id number] cc: Daquan Nunez MD, Attending This document was electronically signed by Yury Su MD on 11/19/2003 15:34:03. 1 Page 2 Patient Name: YARY PHILIPPE CONSULTATION CONFIDENTIAL MEDICAL RECORD [address] [address] Page 1 Patient: YARY PHILIPPE Location: E HPN: [id number] Admit Date: 10/31/2003 Date of : 1955 [...] Depakote and follows with Dr. Soni at [facility]. Her most recent manic episode was 2 [...] alcoholism. SOCIAL HISTORY: The patient lives in [place], [place] with her daughter and her family [...] consider deferring this to Dr. Soni at [facility]. However, also consider psyche consultation and care. 5. Tobacco abuse. She is interested in smoking cessation. We will start nicotine patch while she is here and we will discuss with regarding Wellbutrin being an indication for this patient. CODE STATUS: Full code. cleestino Dictated: 11/01/2003 06:43:19 Julius Tanner MD Transcribed: 11/01/2003 07:24:55 Staff: Doc #: [id number] cc: Daquan Nunez MD, Attending 1 Page 2 Patient Name: YARY PHILIPPE HISTORY & PHYSICAL CONFIDENTIAL MEDICAL RECORD [address] [address] Page 1 Patient: YARY PHILIPPE Location: 9E HPN: [id number] Admit Date: 10/31/2003 Date of : 1955 [...] is 4/5 bilaterally; coordination is intact to zcaief-nsdv-lxypyo exam and wlmy-ducn-yxlb exam; light touch sensation is decreased on [...] last MRI approximately two years ago at [place]. She states that she has had approximately 6-7 MRI scans in the past and that some of them were performed here at [facility]; however, I was unable to locate those images on EpicWeb. This patient was discussed with Dr. Reyes. DISPOSITION: Admit to medicine general floor. Neurology has been consulted and would be glad to follow up with her care. ambrocio Dictated: 10/31/2003 17:37:21 Vi Conteh MD Transcribed: 11/02/2003 09:09:01 Staff: Nereida Reyes MD Doc #: [id number] cc: Daquan Nunez MD, Attending Physician 1 Page 2 Patient Name: YARY PHILIPPE Visit Date: 10/31/2003 EMERGENCY MEDICINE NOTE CONFIDENTIAL MEDICAL RECORD [address] [address] Page 1 Patient: YARY PHILIPPE Location: 9E N: [id number] Date of : 1955 Visit Date: 10/31/2003 [...] 11/05/2003 2:03 PM CDT PATIENT DOES SPEAK COLOMBIAN BEEPER NO: [phone] CLINICAL HX:-LACIC ACIDOSIS Amen Ciro [place] RAD [...] 11/03/2003 5:15 PM CDT PATIENT DOES SPEAK COLOMBIAN BEEPER NO: [phone] CLINICAL HX:-PERSISTANT LACTIC ACIDOSIS Amen Ciro [place] [...] or hydrocephalus. Findings were called to the [facility] Emergency Room at the time [...] ngs documented in this encounter Care Teams Cut Off Machine Helper Relationship Specialty Start Date End Date Unassigned, Provider PCP - General 01/12/00 08/29/[address] [place] [address] documented as of this encounter
--- OUTSIDE RECORDS SUMMARY | 2022-02-20 12:00 | XMS_ITS | Encounter Summary ---
:1955 Author Organization [facility] Address [address], [place] [address] Care Team Providers Name Role Phone Unassigned, Provider Primary Care Provider Unavailable Reason for Visit Reason Comments MULTIPLE SCLEROSIS Encounter Details Date Type Department Care Team Description 08/29/2004 Office Visit [facility] Marcello Monterroso MD MULTIPLE SCLEROSIS; [address] [place], [place] [address] Social History Tobacco Use Types [...] 08/29/2004 12:00 AM CDTHISTORY OF PRESENT ILLNESS: Ayvae-kbrs-qwb woman right-handed woman with probable multiple sclerosis as well as bipolar disorder is back for followup. I have not seen Yary since December 1999. She tells me she's been receiving neurological care at the [facility] over the past few years but [...] with her how to go to a bottle house quality control technician and have the paper work sent on to me. EXAMINATION: Blood pressure 132/88, pulse 84 and regular, height 5 feet 3 inches, weight 243 pounds. Alert, but tired appearing morbidly obese middle-aged woman. Affect is somewhat inappropriate with joking. Speech is easily understood. Eye movements are full and conjugate. Facial movements symmetrical, tongue, plate and swallow intact. There is no arm drift. Bajngw-tt-xpvv and xjfy-kl-bxwp are accurate. When walking she`s initially unsteady [...] that we can get records from the [facility] as to what was done there. I'd like to see her back in 6 months though I am not sure she will follow-up on this. We discussed lifestyle issues including weight management, exercise. [place], [place]. Says there aren't many facilities around [...] unspecified documented in this encounter Care Teams Package Maker Relationship Specialty Start Date End Date Unassigned, Provider PCP - General 01/12/00 08/29/[address] [place] [address] documented as of this encounter
--- OUTSIDE RECORDS SUMMARY | 2022-02-20 12:00 | XMS_ITS | Encounter Summary ---
:1955 Author Organization [facility] Address [address] [place] [address] Care Team Providers Name Role Phone Unassigned, Provider Primary Care Provider Unavailable Encounter Details Date Type Department Care Team Description 03/01/2001 Office Visit [facility] Zhu MD MULTIPLE SCLEROSIS; [facility] [address] [address] (Wo rk) Social History Tobacco [...] history of bipolar disorder and was on [place] for a year and she stopped taking it because she was feeling better. For the past five years she has not been on [place]. She says [place] helped her a lot with her symptoms [...] he said we could start her on [place] 450-mg po bid. Her creatinine and TSH were OK. Her creatinine was .6 and TSH was 1.48. 3. I told her to follow-up with behavioral health as an outpatient and will schedule an appointment with Dr. Yusuf at 9:00 a.m. jade Dictated: 02/26/2001 16:13:40 Transcribed: 03/04/2001 11:34:50 Doc #: [id number] PATIENT NAME: YARY PHILIPPE VISIT DATE: 02/26/2001 AGE: 45Y [facility] Provider Signature Page 1 Confidential Medical Record [facility] ?? [place] [address] Page Patient: YARY PHILIPPE Visit Date: 02/26/2001 Sabina Zhu MD Date of : 1955 VISIT DATE: 02/26/2001 AGE: 45Y [facility] Provider Signature NHOUSE SUPERINTENDENT documented in this encounter Plan of Treatment Not on filedocumented as of this encounter Visit Diagnoses Diagnosis Multiple sclerosis (HRC) Multiple sclerosis Bipolar I disorder, most recent episode (or current) unspecified (HRC) Bipolar I disorder, most recent episode (or current) unspecified documented in this encounter Care Teams Director Life Sciences Relationship Specialty Start Date End Date Unassigned, Provider PCP - General 01/12/00 08/29/[address] [place] [address] documented as of this encounter
--- OUTSIDE RECORDS SUMMARY | 2022-02-20 12:00 | XMS_ITS | Encounter Summary ---
:1955 Author Organization [facility] Address [address], [place] [address] Care Team Providers Name Role Phone Unassigned, Provider Primary Care Provider Unavailable Encounter Details Date Type Department Care Team Description 03/04/2001 Office Visit [facility] Alonso Frank, KASSANDRA AL [facility] MD [facility] [address] [place] [address] (Wo rk) Social History Tobacco Use [...] She has an appointment tomorrow with the [facility] dentist. She is just getting over [...] 03/04/2001 12:27:02 Transcribed: 03/07/2001 15:27:50 Doc #: [id number] PATIENT NAME: YARY PHILIPPE VISIT DATE: 03/04/2001 AGE: 45Y [facility] Provider Signature Page 1 Confidential Medical Record [facility] [address] [place] [address] ?? [place] [address] Page Patient: YARY PHILIPPE Visit Date: 03/04/2001 Clara Curtis DO Date of : 1955 VISIT DATE: 03/04/2001 AGE: 45Y [facility] Provider Signature OGAME TESTER documented in this encounter Plan of Treatment Not on filedocumented as of this encounter Visit Diagnoses Diagnosis Periapical abscess without sinus documented in this encounter Care Teams Sales Solutions Representative Relationship Specialty Start Date End Date Unassigned, Provider PCP - General 01/12/00 08/29/[address] [place] [address] documented as of this encounter
--- OUTSIDE RECORDS SUMMARY | 2022-02-20 12:00 | XMS_ITS | Encounter Summary ---
:1955 Author Organization Replaced by [facility] Address [address] [place] [address] Care Team Providers Name Role Phone Unassigned, Provider Primary Care Provider Unavailable Encounter Details Date Type Department Care Team Description 02/07/2001 [facility] Daquan Yates MD [address], [place] [phone] MULTIPLE SCLEROSIS; [address] [facility] [address] [place], [place] [id number] SKIN SENSATION DISTURB; [place] [address] PAIN IN LIMB; COUGH; HYPERTENSION NO S; [...] been followed by Dr Marcello Monterroso at [facility]. She has had flare-ups in [...] dictated admission history and physical, Job ID# [id number]. Her vital signs were stable on admission. Positive findings on her examination were: Cranial nerves II through XII grossly intact. Motor: Strength 5/5 in the lower limbs, 5/5 in the left upper limb, and 3/5 in the right upper limb. DTRs 2+ and symmetrical. Babinski's downgoing. She has decreased sensation down her right leg and right foot on the dorsal side. Snilvk-cp-bslh coordination test: She had intention tremor, and [...] primary medical doctor in one week at [facility], and she was given instructions to go to emergency room for Solu-Medrol IV on February 09, 2001. She also was told to get the rest of her Solu-Medrol doses, 2 days' doses, at chemotherapy infusion room at [facility]. She got 2 doses of intravenous Solu-Medrol before she was discharged home. She is to follow up with neurology clinic in 2-[address] Espinoza. [facility] Dictated: 02/15/2001 12:54:06 Sabina Zhu MD Transcribed: 02/17/2001 10:50:50 Patient seen with Doc #: [id number] cc: Betty Linares MD, Primary Daquan Nunez MD, Attending Alonso Hoover MD, Referring 2 Page 2 Patient Name: YARY PHILIPPE DISCHARGE SUMMARY CONFIDENTIAL MEDICAL RECORD [address] [address] Page 1 Patient: YARY PHILIPPE Location: R-DIS HPN: Admit Date: 02/07/2001 Date of : 1955 Discharge Date: 02/08/2001 DISCHARGE SUMMARY NUT BOILER documented in this encounter Progress Notes Daquan [...] Nunez MD Transcribed: 02/11/2001 03:46:26 Doc #: [id number] cc: Betty Linares MD, Primary Alonso Hoover MD, Referring 1 Page 1 Patient Name: YARY PHILIPPE INTERIM SUMMARY CONFIDENTIAL MEDICAL RECORD [address] [address] Page 1 Patient: YARY PHILIPPE Location: -[facility] HPN: Admit Date: 02/07/2001 Date of : 1955 Discharge Date: 02/08/2001 INTERIM SUMMARY NUT BOILER documented in this encounter Consult Notes Rj Mckeon - 02/07/2001 12:00 AM CSTNEUROLOGY CONSULTATION DATE OF CONSULTATION: 02/08/2001. REQUESTING PHYSICIAN: Aileen Estes MD REASON FOR CONSULTATION: Multiple sclerosis exacerbation, evaluation and plan for treatment. HISTORY OF PRESENT ILLNESS: The patient is a 45-year-old woman with a past medical history of multiple sclerosis who is the past has been followed at [facility] by Dr. Espinoza in the Neurology Clinic. [...] Mckeon MD Transcribed: 02/09/2001 18:36:45 Doc #: [id number] cc: MD Betty Mccollum MD, Primary Alonso Hoover MD, Referring Daquan Nunez MD, Attending 2 Page 2 Patient Name: YARY PHILIPPE CONSULTATION CONFIDENTIAL MEDICAL RECORD [address] [address] Page 1 Patient: YARY PHILIPPE Location: R-[facility] HPN: Admit Date: 02/07/2001 Date of : 1955 Discharge Date: 02/08/2001 CONSULTATION NUT BOILER documented in this encounter OR Notes H&P [...] by Dr Marcello Monterroso, a neurologist at [facility], but she has not seen [...] dorsal side. Vibration and position sense normal. Fmjsws-nn-hlea coordination test: She has intention tremors. She has some cerebellar signs on exam. She also has tremor of both hands, mostly in the left hand. Gait: She drags her feet, mainly on the right side. LABORATORY DATA: White count 10.2, hemoglobin 13.3, platelets 331. Sodium 134, potassium 3.9, BUN 17, creatinine 0.7, chloride 99, bicarbonate 25, calcium 8.9. ASSESSMENT ~ PLAN: Uctlv-psi-ciyg-old woman here with multiple sclerosis exacerbation. 1. [...] Zhu MD Transcribed: 02/07/2001 20:47:37 Doc #: [id number] cc: Betty Lniares MD, Primary Physician Aileen Estes MD, Attending Physician Alonso Hoover MD, Referring Physician 2 Page 2 Patient Name: YARY PHILIPPE HISTORY ~ PHYSICAL CONFIDENTIAL MEDICAL RECORD [address] [address] Page 1 Patient: YARY PHILIPPE Location: HPN: Admit Date: 02/07/2001 Date of : 1955 HISTORY ~ PHYSICAL NUT BOILER documented in this encounter ED Notes Jeaneth [...] She will be admitted to general medicine [facility] for her MS exacerbation. glt Dictated: 02/07/2001 18:42:39 Jeaneth Pearl MD Transcribed: 02/08/2001 06:13:05 Patient seen with Luis Joseph MD Doc #: [id number] cc: Betty Linares MD, primary 1 Page 1 Patient Name: YARY PHILIPPE Visit Date: 02/07/2001 EMERGENCY MEDICINE NOTE CONFIDENTIAL MEDICAL RECORD [address] [phone] Page 1 Patient: [facility]ILIPPE [facility] 1955 Visit Date: 02/07/2001 EMERGENCY MEDICINE NOTE NUT BOILER documented in this encounter Plan of Treatment Not on filedocumented as of this encounter Procedures Procedure Name Priority Date/Time Associated Diagnosis Comme nts CHEST PA/LATERAL Routine 02/07/2001 5:53 PM Resul ts for this COCONUT BOILER procedure are i n the results section. documented in this encounter Results CHEST PA/LATERAL (02/07/2001 5:53 PM COCONUT BOILER) [facility] Method Time Signature Chest AP/PA + CHEST, PA AND LATERAL 02/07/2001: [facility] Lateral 2 CLINICAL HISTORY: Cough. RADIO LOGY Views Lung etienne appear clear. Heart and pulmonary vasculature are within normal limits. IMPRESSION: Negative chest. Anatomical Region Laterality Modality Other Specimen (Source) Anatomical Collection Method Collection Time Re ceived Time Location / / Volume Laterality 02/07/2001 5:53 PM COCONUT BOILER Fredis Simmons MD RAD GENERAL DIAGNOSTIC/RH documented in this encounter Visit Diagnoses Diagnosis Multiple sclerosis (HRC) Multiple sclerosis Disturbance of skin sensation Pain in limb Cough Unspecified essential hypertension (HRC) Unspecified essential hypertension Esophageal reflux Screening for other and unspecified card iovascular conditions documented in this encounter Care Teams Caustics Loader Relationship Specialty Start Date End Date Unassigned, Provider PCP - General 01/12/00 08/29/[address] [place] [address] documented as of this encounter
--- OUTSIDE RECORDS SUMMARY | 2022-02-20 12:00 | XMS_ITS | Encounter Summary ---
:1955 Author Organization [facility] Address [address] [place] [address] Care Team Providers Name Role Phone Unassigned, Provider Primary Care Provider Unavailable Encounter Details Date Type Department Care Team Description 11/03/2003 Orders Only [facility] Unknown, Physician [address] [place] [address] [address] [place] [address] [place], [place] [address] (Wo rk) Social History Tobacco Use Types [...] on filedocumented in this encounter Care Teams Merchandise Execution Leader Relationship Specialty Start Date End Date Unassigned, Provider PCP - General 01/12/00 08/29/11 [address] [place] [address] documented as of this encounter
--- OUTSIDE RECORDS SUMMARY | 2022-02-20 12:00 | XMS_ITS | Encounter Summary ---
:1955 Author Organization [facility] [address], [place] [address] Care Team Providers Name Role Phone Unassigned, Provider Primary Care Provider Unavailable Encounter Details Date Type Department Care Team Description 04/15/2001 Office Visit [facility] Debbie Hayes ORGANIC AFFECTIVE Behavioral Health MD [facility] [phone] [address] [place], [place] [id number] Social History Tobacco Use Types Packs/Day Years Used Date Smoking Tobacco: Never Assessed Sex Assigned at Date Recorded Not on file documented as of this encounter Plan of Treatment Not on filedocumented as of this encounter Visit Diagnoses Diagnosis Mood disorder in conditions classified e lsewhere ([facility]) Mood disorder in conditions classified e lsewhere documented in this encounter Care Teams Life Science Taxonomist Relationship Specialty Start Date End Date Unassigned, Provider PCP - General 01/12/00 08/29/11 [address] [place] [address] documented as of this encounter
--- OUTSIDE RECORDS SUMMARY | 2022-02-20 12:00 | XMS_ITS | Encounter Summary ---
:1955 Author Organization [facility] Address [address], [place] [address] Care Team Providers Name Role Phone Unassigned, Provider Primary Care Provider Unavailable Encounter Details Date Type Department Care Team Description 07/07/2004 Correspondence [facility] Marcello Monterroso, LETTER STATING TO CALL [address] Romy Seo MD WHEN APPT CANCEL [place] [phone] Social History Tobacco Use Types Packs/Day Years Used Date Smoking Tobacco: Never Assessed Sex Assigned at Date Recorded Not on file documented as of this encounter Progress Notes Marcello Monterroso - 07/07/2004 12:00 AM CDT documented in this encounter Plan of Treatment Not on filedocumented as of this encounter Visit Diagnoses Not on filedocumented in this encounter Care Teams Network Operations Specialist Relationship Specialty Start Date End Date Unassigned, Provider PCP - General 01/12/00 08/29/[address] [place] [address] documented as of this encounter
--- OUTSIDE RECORDS SUMMARY | 2022-02-20 12:00 | XMS_ITS | Encounter Summary ---
:1955 Author Organization [facility] Address [address] [place] [address] Care Team Providers Name Role Phone Unassigned, Provider Primary Care Provider Unavailable Encounter Details Date Type Department Care Team Description 10/26/2004 Telephone [facility] Marcello Monterroso MD [address] [place], [place] [address] Social History Tobacco Use Types Packs/Day Years Used Date Smoking Tobacco: Every Day Cigarettes 45 Comments: 4-5 cigarettes per day Alcohol Use Standard Drinks/Week Comments No 0 (1 standard drink = 0.6 oz pure alcoho l) Sex Assigned at Date Recorded Not on file documented as of this encounter Nursing Notes 10/26/2004 11:59 PM CDT >> KEARA ALLEN [facility] Oct 26, 2004 11:54 AM Encounter initiated. documented in this encounter Plan of Treatment Not on filedocumented as of this encounter Visit Diagnoses Not on filedocumented in this encounter Care Teams Laboratory Inspector Relationship Specialty Start Date End Date Unassigned, Provider PCP - General 01/12/00 08/29/[address] [place] [address] documented as of this encounter
--- OUTSIDE RECORDS SUMMARY | 2022-02-20 12:00 | XMS_ITS | Encounter Summary ---
:1955 [facility] Address [address], [place] [address] Care Team Providers Name Role Phone Unassigned, Provider Primary Care Provider Unavailable Encounter Details Date Type Department Care Team Description 01/28/2001 Office Visit [facility] Sabina Zhu MD Arrived Clinic [address] [place] [address] (Wo rk) Social History Tobacco [...] 01/28/2001 14:25:00 Transcribed: 01/31/2001 10:32:00 Doc #: [id number] PATIENT NAME: YARY PHILIPPE VISIT DATE: 01/28/2001 AGE: 45Y [facility] Provider Signature Page 2 Confidential Medical Record [facility] [address] [place] [address] ?? [place] [address] Page Patient: YARY PHILIPPE Visit Date: 01/28/2001 Sabina Zhu MD Date of : 1955 VISIT DATE: 01/28/2001 AGE: 45Y [facility] Provider Signature CANVAS MAKER AND INSTALLER documented in this encounter Plan of Treatment Not on filedocumented as of this encounter Visit Diagnoses Not on filedocumented in this encounter Care Teams Track Repair Worker Relationship Specialty Start Date End Date Unassigned, Provider PCP - General 01/12/00 08/29/[address] [place] [address] documented as of this encounter
--- OUTSIDE RECORDS SUMMARY | 2022-02-20 12:00 | XMS_ITS | Encounter Summary ---
:1955 Author Organization [facility] Address [address] [place] [address] Care Team Providers Name Role Phone Unassigned, [...] on filedocumented in this encounter Care Teams Pipe Line Repairer Relationship Specialty Start Date End Date Unassigned, Provider PCP - General 01/12/00 08/29/[address] [place] [address] documented as of this encounter
--- OUTSIDE RECORDS SUMMARY | 2022-02-20 12:00 | XMS_ITS | Encounter Summary ---
:1955 Author Organization On [facility] of [facility] Address [address] [place] [address] Care Team Providers Name Role Phone Unassigned, Provider Primary Care Provider Unavailable Encounter Details Date Type Department Care Team Description 11/05/2003 Correspondence None Unknown, Physici an [facility] [address] [place], [place] [id number] (Wo rk) Social History Tobacco Use Types Packs/Day Years Used Date Smoking Tobacco: Never Assessed Sex Assigned at Date Recorded Not on file documented as of this encounter Progress Notes Unknown, Physician - 11/05/2003 12:00 AM CDT documented in this encounter Plan of Treatment Not on filedocumented as of this encounter Visit Diagnoses Not on filedocumented in this encounter Care Teams Head Of Housekeeping Relationship Specialty Start Date End Date Unassigned, Provider PCP - General 01/12/00 08/29/11 [address] [place] [address] documented as of this encounter
--- OUTSIDE RECORDS SUMMARY | 2022-02-20 12:00 | XMS_ITS | Encounter Summary ---
:1955 Author Organization [facility] Address [address] [place] [address] Care Team Providers Name Role Phone No Primary/Referring, Phy Primary Care Provider Unavailable Encounter Details Date Type Department Care Team Description 01/10/2001 Orders Only Braydon Jackson MD [address] [place], [place] [phone] [place], [place] [phone] (Wo rk) Social History Tobacco Use Types [...] UA CONDITIONAL UC (01/10/2001 3:06 PM CDT) [facility] Method Time Signature Conditional UC Not [facility] Culture Indicated Urine Comments Microscopic [facility] exam not indicated Urine Comments Epithelial [facility] Cells Seen Urine Color Yellow [facility] Urine Clarity Hazy [facility] Specific 1.025 1.005 - [facility] [place],Ur 1.030 pH, Urine 5.0 4.5 - 8.0 [...] Organization Address City/State/ZIP Code Phon e Number [address] [address] [place], [place] [phone] documented in this encounter Visit Diagnoses Not on filedocumented in this encounter Care Teams Foreign Service Officer Relationship Specialty Start Date End Date No Primary/Referring, Phy PCP - General 08/30/11 documented as of this encounter
--- OUTSIDE RECORDS SUMMARY | 2022-02-20 12:00 | XMS_ITS | Encounter Summary ---
:1955 Author Organization [facility] Address [address] [place] [address] Care Team Providers Name Role Phone Unassigned, Provider Primary Care Provider Unavailable Encounter Details Date Type Department Care Team Description 11/05/2003 Correspondence None Unknown, Physici an [facility] [address] [place] [address] (Wo rk) Social History Tobacco Use Types Packs/Day Years Used Date Smoking Tobacco: Never Assessed Sex Assigned at Date Recorded Not on file documented as of this encounter Progress Notes Unknown, Physician - 11/05/2003 12:00 AM CDT documented in this encounter Plan of Treatment Not on filedocumented as of this encounter Visit Diagnoses Not on filedocumented in this encounter Care Teams Narrow Fabric Calenderer Relationship Specialty Start Date End Date Unassigned, Provider PCP - General 01/12/00 08/29/[address] [place] [address] documented as of this encounter
--- OUTSIDE RECORDS SUMMARY | 2022-02-20 12:00 | XMS_ITS | Encounter Summary ---
:1955 Author Organization [facility] Address [address], [place] [address] Care Team Providers Name Role Phone Unassigned, Provider Primary Care Provider Unavailable Reason for Visit Reason Onset Date Comments Other 12/22/2004 Encounter Details Date Type Department Care Team Description 12/22/2004 Telephone [facility] Marcello Monterroso MD Other [address] [place], [place] [address] Social History Tobacco Use Types [...] Please re-fax certificate of medical ness. to #[phone] documented in this encounter Plan of Treatment Not on filedocumented as of this encounter Visit Diagnoses Not on filedocumented in this encounter Care Teams Heat Treatment Technician Relationship Specialty Start Date End Date Unassigned, Provider PCP - General 01/12/00 08/29/11 [address] [place] [address] documented as of this encounter
--- OUTSIDE RECORDS SUMMARY | 2022-02-20 12:01 | XMS_ITS | Encounter Summary ---
:1955 Author Organization [facility] Address [address] [place] [address] Care Team Providers Name Role Phone Unavailable [...]
--- OUTSIDE RECORDS SUMMARY | 2022-02-20 12:01 | XMS_ITS | Encounter Summary ---
:1955 Author Organization [facility] Address [address] [place] [address] Care Team Providers Name Role Phone Unavailable [...]
--- OUTSIDE RECORDS SUMMARY | 2022-02-20 12:01 | XMS_ITS | Encounter Summary ---
:1955 Author Organization [facility] Address [address] [place] [address] Care Team Providers Name Role Phone Unavailable Primary Care Provider Unavailable Encounter Details Date Type Department Care Team Description 11/26/1999 Office Visit [facility] Nereida Tyson, MULTIPLE SCLEROSIS; [facility] SKIN SENSATION DISTURB [address] [place], [place] [address] Social History Tobacco Use Types Packs/Day Years Used Date Smoking Tobacco: Never Assessed Sex Assigned at Date Recorded Not on file documented as of this encounter Plan of Treatment Not on filedocumented as of this encounter Visit Diagnoses Diagnosis Multiple sclerosis (HRC) Multiple sclerosis Disturbance of skin sensation documented in this encounter
--- OUTSIDE RECORDS SUMMARY | 2022-02-20 12:01 | XMS_ITS | Encounter Summary ---
:1955 Author Organization [facility] Address [address] [place] [address] Care Team Providers Name Role Phone Unavailable Primary Care Provider Unavailable Reason for Visit Reason Comments CONSULT VIA INTERFACE Encounter Details Date Type Department Care Team Description 12/05/1999 Office Visit [facility] Marcello Monterroso MD MULTIPLE SCLEROSIS; [address] [facility]. . ANXIETY DISORDER NOS [place], [place] [address] Social History Tobacco Use Types [...] Position sense is intact at the toes. Jhpoyv-zp-woqe and ouzz-do-baov normal. Gait is variably unsteady. It seems when the patient is not aware of being watched that she does better. ASSESSMENT: Probable multiple sclerosis. Anxiety. History of bipolar affective disorder. PLAN: Will give Yary a small prescription for Ativan .5 mg, 1/ 2 to 1 po TID, no refills. Strongly urged her to see her psychiatrist, Dr. Coley, at [facility] and she says she has an appointment. I have asked her to call me with the appointment date to confirm this. Will send for her records from the [facility] and I will see her back in six weeks to follow-up. cc: Betty Linares MD documented in this encounter Plan of Treatment Not on filedocumented as of this encounter Visit Diagnoses Diagnosis Multiple sclerosis (HRC) Multiple sclerosis Anxiety state, unspecified (HRC) Anxiety state, unspecified documented in this encounter
--- OUTSIDE RECORDS SUMMARY | 2022-02-20 12:01 | XMS_ITS | Encounter Summary ---
:1955 Author Organization [facility] Address [address] [place] [address] Care Team Providers Name Role Phone Unavailable [...]
--- OUTSIDE RECORDS SUMMARY | 2022-02-20 12:01 | XMS_ITS | Encounter Summary ---
:1955 Author Organization [facility] Address [address] [place] [address] Care Team Providers Name Role Phone Unassigned, Provider Primary Care Provider Unavailable Reason for Visit Reason Comments RECTAL BLEEDING Encounter Details Date Type Department Care Team Description 07/10/2000 Telephone Careline Yin Anne, RN RECTAL BLEEDING [address] [place], [place] [address] [phone] [place] [address] Social History Tobacco Use Types Packs/Day Years [...] refused strongly recomm. to be driven to [facility] ER, now. ETA:10min has a ride w/her-will leave now caller states is comf. with plan. documented in this encounter Plan of Treatment Not on filedocumented as of this encounter Visit Diagnoses Not on filedocumented in this encounter Care Teams Insurance Compliance Analyst Relationship Specialty Start Date End Date Unassigned, Provider PCP - General 01/12/00 08/29/11 [address] [place] [address] documented as of this encounter
--- OUTSIDE RECORDS SUMMARY | 2022-02-20 12:01 | XMS_ITS | Encounter Summary ---
:1955 Author Organization [employer] Address [address] [place] [address] Care Team Providers Name Role Phone Unavailable Primary Care Provider Unavailable Reason for Visit Reason Comments BACK PAIN, LOW Encounter Details Date Type Department Care Team Description 09/19/1999 Telephone CareKarli Eldridge RN BACK PAIN, LOW [address] [place], [place] [address] [phone] [place] [address] Social History Tobacco Use Types Packs/Day Years Used Date Smoking Tobacco: Never Assessed Sex Assigned at Date Recorded Not on file documented as of this encounter Nursing Notes 09/19/1999 11:59 PM CDT - Karli Nunez Started and completed on SatSep 19, 1999 9:00 PM pt calls back to [facility] to inform that she is going to [facility]. note faxed to [facility] - Komal Sheehan Started on SatSep [...]
--- OUTSIDE RECORDS SUMMARY | 2022-02-20 12:01 | XMS_ITS | Encounter Summary ---
:1955 Author Organization [facility] Address [address] [place] [address] Care Team Providers Name Role Phone Unassigned, Provider Primary Care Provider Unavailable Reason for Visit Reason Comments MULTIPLE SCLEROSIS Leg pain/spasms. Medication Request Encounter Details Date Type Department Care Team Description 02/04/2000 Telephone Careline Mounika Roca, MULTIPLE SCLEROSIS [address] RN (Leg pain/spasms.); [place], [place] [address] [facility] Medication Request [phone] [place] [address] (Wo rk) Social History Tobacco Use Types Packs/Day Years Used Date Smoking Tobacco: Never Assessed Sex Assigned at Date Recorded Not on file documented as of this encounter Nursing Notes 02/04/2000 11:59 PM FUNDRAISING MANAGER >> MOUNIKA Bragg Feb 04, 2000 9:53 [...] He recommends pt be seen in [facility] or with Dr. Rollins tomorrow.Doctor is [...] on filedocumented in this encounter Care Teams Warehouse Distribution Associate Relationship Specialty Start Date End Date Unassigned, Provider PCP - General 01/12/00 08/29/[address] [place] [address] documented as of this encounter
--- OUTSIDE RECORDS SUMMARY | 2022-02-20 12:01 | XMS_ITS | Encounter Summary ---
:1955 Author Organization [facility] Address [address] [place] [address] Care Team Providers Name Role Phone Unassigned, Provider Primary Care Provider Unavailable Encounter Details Date Type Department Care Team Description 03/13/2000 Orders Only Epic, [place] [address] Social History Tobacco Use Types Packs/Day Years Used Date Smoking Tobacco: Never Assessed Sex Assigned at Date Recorded Not on file documented as of this encounter Plan of Treatment Not on filedocumented as of this encounter Visit Diagnoses Not on filedocumented in this encounter Care Teams Mud Cleaner Operator Relationship Specialty Start Date End Date Unassigned, Provider PCP - General 01/12/00 08/29/[address] [place] [address] documented as of this encounter
--- OUTSIDE RECORDS SUMMARY | 2022-02-20 12:01 | XMS_ITS | Encounter Summary ---
:1955 Author Organization [facility] Address [address] [place] [address] Care Team Providers Name Role Phone Unavailable Primary Care Provider Unavailable Encounter Details Date Type Department Care Team Description 09/13/1999 Office Visit [facility] Zoë Ramirez, MULTIPLE SCLE ROSIS; [facility] MD Betty [address] AR ES W/O HYPERTN Social History Tobacco Use [...]
--- OUTSIDE RECORDS SUMMARY | 2022-02-20 12:01 | XMS_ITS | Encounter Summary ---
:1955 Author Organization [facility] Address [address], [place] [address] Care Team Providers Name Role Phone Unavailable Primary Care Provider Unavailable Encounter Details Date Type Department Care Team Description 09/29/1999 Office Visit [facility] Levi Cruz LOW BACK PAIN (ACUTE)<6 WEEKS; Physicians Glen Gomez MD DISORDERS OF SACRUM; [address] [facility] RIDDEN ANIMAL ACC-PEDEST; [place], [place] [address] Social History Tobacco Use Types Packs/Day Years [...]
--- OUTSIDE RECORDS SUMMARY | 2022-02-20 12:01 | XMS_ITS | Encounter Summary ---
:1955 Author Organization [facility] Address [address] [place] [address] Care Team Providers Name Role Phone Unavailable [...]
--- OUTSIDE RECORDS SUMMARY | 2022-02-20 12:01 | XMS_ITS | Encounter Summary ---
:1955 Author Organization [facility] Address [address] [place] [address] Care Team Providers Name Role Phone Unavailable [...]
--- OUTSIDE RECORDS SUMMARY | 2022-02-20 12:01 | XMS_ITS | Encounter Summary ---
:1955 [facility] Address [address], [place] [address] Care Team Providers Name Role Phone Unassigned, Provider Primary Care Provider Unavailable Reason for Visit Reason Comments Follow-up, NOS VIA INTERFACE Encounter Details Date Type Department Care Team Description 01/24/2000 Office Visit [facility] Marcello Monterroso, MULTIPLE SCLEROSIS; [address] Gabbi LOUIS BIPOLAR AFFECTIVE [place]OS [place], [place] [address] Social History Tobacco Use Types [...] unspecified documented in this encounter Care Teams Fiberglass Insulation Installer Relationship Specialty Start Date End Date Unassigned, Provider PCP - General 01/12/00 08/29/[address] [place] [address] documented as of this encounter
--- OUTSIDE RECORDS SUMMARY | 2022-02-20 12:01 | XMS_ITS | Encounter Summary ---
:1955 Author Organization [facility] Address [address] [place] [address] Care Team Providers Name Role Phone Unavailable Primary Care Provider Unavailable Reason for Visit Reason Comments BACK PAIN Encounter Details Date Type Department Care Team Description 10/04/1999 Telephone Careline Fabiola Jacobs RN BACK PAIN; ([place] [address] [facility]) [place], [place] [address] [facility] [phone] [place] [address] Social History Tobacco Use Types Packs/Day Years Used Date Smoking Tobacco: Never Assessed Sex Assigned at Date Recorded Not on file documented as of this encounter Nursing Notes 10/04/1999 11:59 PM CDT Addended by: VERONIQUE JACOBS on: 10/04/1999,9:04 PM Modules accepted: Progress Notes Dr. Lola zhong ret call at 8:35pm and stated she would try to call in Percocet to the [facility] outpt pharmacy and then call me back. [...] Pt w as brought by ambulance to [facility], pt was sent home. There was [...] seen in ER and she refused. Paged pipe production worker for [facility] at 8:04pm.. - Veronique Jacobs Started and completed on SatOct 04, 1999 8:15 PM ------- documented in this encounter Plan of Treatment Not on filedocumented as of this encounter Visit Diagnoses Not on filedocumented in this encounter
--- OUTSIDE RECORDS SUMMARY | 2022-02-20 12:01 | XMS_ITS | Encounter Summary ---
:1955 Author Organization [facility] Address [address] [place] [address] Care Team Providers Name Role Phone Unavailable [...]
--- OUTSIDE RECORDS SUMMARY | 2022-02-20 12:01 | XMS_ITS | Encounter Summary ---
:1955 Author Organization [facility] Address [address] [place] [address] Care Team Providers Name Role Phone Unassigned, Provider Primary Care Provider Unavailable Encounter Details Date Type Department Care Team Description 09/30/1999 Orders Only [facility] Carmita Lazcano, Radiology [address] [place] [address]. [place] [address] Social History Tobacco Use Types [...] on filedocumented in this encounter Care Teams Radiation Protection Technician Relationship Specialty Start Date End Date Unassigned, Provider PCP - General 01/12/00 08/29/[address] [place] [address] documented as of this encounter
--- OUTSIDE RECORDS SUMMARY | 2022-02-20 12:01 | XMS_ITS | Encounter Summary ---
:1955 Author Organization [facility] Address [address] [place] [address] Care Team Providers Name Role Phone Unassigned, Provider Primary Care Provider Unavailable Encounter Details Date Type Department Care Team Description 08/16/2000 Office Visit [facility] Zoë aRmirez, MULTIPLE SCLE ROSIS; [facility] MD Betty [...] 08/16/2000 12:00:00 Transcribed: 08/22/2000 08:31:02 Doc #: [id number] PATIENT NAME: YARY PHILIPPE VISIT DATE: 08/16/2000 AGE: 45Y [facility] Provider Signature Page 2 Confidential Medical Record [facility] [address] [place] [address] ?? [place] [address] Page Patient: YARY PHILIPPE Carmita Visit Date: 08/16/2000 Betty Linares MD Date of : 1955 VISIT DATE: 08/16/2000 AGE: 45Y [facility] Provider Signature documented in this encounter Plan of Treatment Not on filedocumented as of this encounter Visit Diagnoses Diagnosis Multiple sclerosis (HRC) Multiple sclerosis Unspecified essential hypertension (HRC) Unspecified essential hypertension Examination of eyes and vision documented in this encounter Care Teams Cigarette Machine Filler Relationship Specialty Start Date End Date Unassigned, Provider PCP - General 01/12/00 08/29/[address] [place] [address] documented as of this encounter
--- OUTSIDE RECORDS SUMMARY | 2022-02-20 12:01 | XMS_ITS | Encounter Summary ---
:1955 Author Organization [facility] Address [address] [place] [address] Care Team Providers Name Role Phone Unavailable Primary Care Provider Unavailable Encounter Details Date Type Department Care Team Description 08/15/1999 Office Visit [facility] Ben Chávez, CERVICALGIA Clinic AGRICULTURE SCIENTIST, FUNERAL DIRECTOR AND EMBALMER [address] [place], [place] [address] (Wo rk) Social History Tobacco Use Types Packs/Day Years Used Date Smoking Tobacco: Never Assessed Sex Assigned at Date Recorded Not on file documented as of this encounter Plan of Treatment Not on filedocumented as of this encounter Visit Diagnoses Diagnosis Cervicalgia documented in this encounter
--- OUTSIDE RECORDS SUMMARY | 2022-02-20 12:01 | XMS_ITS | Encounter Summary ---
:1955 Author Organization [facility] Address [address] [place] [address] Care Team Providers Name Role Phone Unavailable Primary Care Provider Unavailable Reason for Visit Reason Comments BLOOD PRESSURE, HIGH Pt of Dr Linares. MULTIPLE SCLEROSIS Medication Questions HEADACHE Encounter Details Date Type Department Care Team Description 12/31/1999 Telephone Careline Gabe Gamez, BLOOD PRESSURE, HIGH [address] RN (Pt [place] [address] AFTER HOU[facility] Vijay.); MULTIPLE [phone] [address] [facility] S; Medication SE Questions; HEADACHE [place] [id number] Social History Tobacco Use Types Packs/Day [...]
--- OUTSIDE RECORDS SUMMARY | 2022-02-20 12:01 | XMS_ITS | Encounter Summary ---
:1955 Author Organization [facility] [address], [place] [address] Care Team Providers Name Role Phone Unassigned, Provider Primary Care Provider Unavailable Encounter Details Date Type Department Care Team Description 04/10/2000 Scanned History [facility] Jordan Muniz UPPER ENDOSCOPY Gastroenterology MD Carmita [address] [place] [address] Social History Tobacco Use Types Packs/Day Years Used Date Smoking Tobacco: Never Assessed Sex Assigned at Date Recorded Not on file documented as of this encounter Plan of Treatment Not on filedocumented as of this encounter Visit Diagnoses Not on filedocumented in this encounter Care Teams Concrete Block Maker Relationship Specialty Start Date End Date Unassigned, Provider PCP - General 01/12/00 08/29/[address] [place] [address] documented as of this encounter
--- OUTSIDE RECORDS SUMMARY | 2022-02-20 12:01 | XMS_ITS | Encounter Summary ---
:1955 Author [facility] Address [address], [place] [address] Care Team Providers Name Role Phone Unassigned, Provider Primary Care Provider Unavailable Reason for Visit Reason Comments STOMACH PROBLEM VIA INTERFACE Encounter Details Date Type Department Care Team Description 03/13/2000 Office Visit [facility] Levi Pozo ESOPHAGEAL R EFLUX; Alden Gomez MD VACCINE FOR INFLUENZA [address] [address] [place] [address] [place], [place] [phone] [address] Social History Tobacco Use Types Packs/Day Years Used Date Smoking Tobacco: Never Assessed Sex Assigned at Date Recorded Not on file documented as of this encounter Progress Notes Levi Pozo G - 03/13/2000 12:00 AM CSTS: This 44-year-old woman complains of gastroesophageal reflux symptoms with burning in her chest, worse especially after she eats tomato sauce. She has been using Zantac kjsa-oqr-gathshd, it used to work but doesn't seem [...] INFLUENZA documented in this encounter Care Teams Contact Lens Flashing Puncher Relationship Specialty Start Date End Date Unassigned, Provider PCP - General 01/12/00 08/29/[address] [place] [address] documented as of this encounter
--- OUTSIDE RECORDS SUMMARY | 2022-02-20 12:01 | XMS_ITS | Encounter Summary ---
:1955 Author Organization [facility] Address [address] [place] [address] Care Team Providers Name Role Phone Unassigned, Provider Primary Care Provider Unavailable Reason for Visit Reason Comments DIARRHEA VIA INTERFACE Encounter Details Date Type Department Care Team Description 03/13/2000 Office Visit [facility] Blanka ury DIARRHEA NOS [address] [place] [address] Social History Tobacco Use Types Packs/Day Years [...] M.D. if this is not resolving. cc: IAGE DOGGER documented in this encounter Plan of Treatment Not on filedocumented as of this encounter Visit Diagnoses Diagnosis Diarrhea documented in this encounter Care Teams Tangled Yarn Spool Straightener Relationship Specialty Start Date End Date Unassigned, Provider PCP - General 01/12/00 08/29/[address] [place] [address] documented as of this encounter
--- OUTSIDE RECORDS SUMMARY | 2022-02-20 12:01 | XMS_ITS | Encounter Summary ---
:1955 Author Organization [facility] Address [address] [place] [address] Care Team Providers Name Role Phone Unavailable [...]
--- OUTSIDE RECORDS SUMMARY | 2022-02-20 12:01 | XMS_ITS | Encounter Summary ---
:1955 Author Organization [facility] Address [address] [place] [address] Care Team Providers Name Role Phone Unavailable Primary Care Provider Unavailable Encounter Details Date Type Department Care Team Description 12/07/1999 Office Visit [facility] Dennis Gaffney, ACUTE [facility] PHARYNGITIS(SORE [address] THROAT) Fernando [address] [place], [place] [address] (Wo rk) Social History Tobacco Use Types Packs/Day Years Used Date Smoking Tobacco: Never Assessed Sex Assigned at Date Recorded Not on file documented as of this encounter Plan of Treatment Not on filedocumented as of this encounter Visit Diagnoses Diagnosis Acute pharyngitis documented in this encounter
--- OUTSIDE RECORDS SUMMARY | 2022-02-20 12:01 | XMS_ITS | Encounter Summary ---
:1955 Author Organization [facility] Address [address] [place] [address] Care Team Providers Name Role Phone Unassigned, [...] Procedure Name Priority Date/Time Associated Diagnosis [facility] CHAINSTITCH BINDER CYTOLOGY Routine 05/11/1999 5:07 PM Results f or this QC LAB TECHNICIAN procedure are i n the results section . documented in this encounter Results CHAINSTITCH BINDER CYTOLOGY (05/11/1999 5:07 PM QC LAB TECHNICIAN) [facility] Method Time Signature Metal Bonding Helper Cytology (NOTE) [facility] Metal Bonding Helper Cytology Report Patient Name: YARY PHILIPPE Taken: 05/11/99 Received: 05/12/99 Reported: 05/15/99 Physician(s): MICHAELA FIELDS ([id number]) Final Cytologic Diagnosis Vaginal, diagnostic: ? Satisfactory for evaluation. ? WITHIN NORMAL LIMITS (WNL) Comment [facility]/05/15/99 Electronically Signed Out By YANET Arguello (ASCP) YANET Arguello (ASCP) Source of Specimen(s) Vaginal, diagnostic Clinical History Date of Last Menstrual Period: ? {Not Given} Menstrual History: Contraceptive History: Cancer History: Infection History: Treatment History: Hysterectomy Other Clinical Conditions: Other Related Clinical Data Specimen Anatomical Collection Method Collection Time Receive d Time (Source) Location / / Volume Laterality 05/11/1999 5:07 PM 0 QC LAB TECHNICIAN 12:33 PM QC LAB TECHNICIAN Michaela Ramirez MD UNLISTED CODE Performing Organization Address City/State/ZIP Code Phon e Number [address] [address] [place], [place] [phone] documented in this encounter Visit Diagnoses Not on filedocumented in this encounter Care Teams Mechanical Assembly Technician Relationship Specialty Start Date End Date Unassigned, Provider PCP - General 01/12/00 08/29/[address] [place] [address] documented as of this encounter
--- OUTSIDE RECORDS SUMMARY | 2022-02-20 12:01 | XMS_ITS | Encounter Summary ---
:1955 Author Organization [address] [address] Care Team Providers Name Role Phone Unavailable Primary Care Provider Unavailable Encounter Details Date Type Department Care Team Description 08/10/1999 Office Visit [facility] SHORT NESS OF BREATH Pulmonary [address] [place] [address] Social History Tobacco Use Types Packs/Day Years Used Date Smoking Tobacco: Never Assessed Sex Assigned at Date Recorded Not on file documented as of this encounter Plan of Treatment Not on filedocumented as of this encounter Visit Diagnoses Diagnosis Shortness of breath documented in this encounter
--- OUTSIDE RECORDS SUMMARY | 2022-02-20 12:01 | XMS_ITS | Encounter Summary ---
:1955 Author Organization [facility] Address [address] [place] [address] Care Team Providers Name Role Phone Unavailable Primary Care Provider Unavailable Encounter Details Date Type Department Care Team Description 09/20/1999 Office Visit [facility] Steve Hargrove M D SPRAIN L[facility]BAR [facility] [address] [place], [place] [address] Social History Tobacco Use Types Packs/Day Years Used Date Smoking Tobacco: Never Assessed Sex Assigned at Date Recorded Not on file documented as of this encounter Plan of Treatment Not on filedocumented as of this encounter Visit Diagnoses Diagnosis Sprain of lumbar region documented in this encounter
--- OUTSIDE RECORDS SUMMARY | 2022-02-20 12:01 | XMS_ITS | Encounter Summary ---
:1955 Author Organization [facility] Address [address] [place] [address] Care Team Providers Name Role Phone Unassigned, Provider Primary Care Provider Unavailable Encounter Details Date Type Department Care Team Description 01/31/2000 Office Visit [facility] RUT N NOS; [facility] MD Cata MALIGNANT HYPERTENSION; UNASSIGNED CLINI C HYPERTENSION NOS [address] [place] [address] Social History Tobacco Use Types Packs/Day Years Used Date Smoking Tobacco: Never Assessed Sex Assigned at Date Recorded Not on file documented as of this encounter Plan of Treatment Not on filedocumented as of this encounter Visit Diagnoses Diagnosis Chest pain, unspecified Essential hypertension, malignant (HRC) Essential hypertension, malignant Unspecified essential hypertension (HRC) Unspecified essential hypertension documented in this encounter Care Teams Green Material Value Added Assessor Relationship Specialty Start Date End Date Unassigned, Provider PCP - General 01/12/00 08/29/[address] [place] [address] documented as of this encounter
--- OUTSIDE RECORDS SUMMARY | 2022-02-20 12:01 | XMS_ITS | Encounter Summary ---
:1955 Author Organization [facility] Address [address] [place] [address] Care Team Providers Name Role Phone Unavailable [...] Diagnoses Diagnosis Routine general medical examination at [facility] care facility Routine general medical examination at a health care facility documented in this encounter
--- OUTSIDE RECORDS SUMMARY | 2022-02-20 12:01 | XMS_ITS | Encounter Summary ---
:1955 Author Organization [facility] Address [address] [place] [address] Care Team Providers Name Role Phone Unassigned, Provider Primary Care Provider Unavailable Encounter Details Date Type Department Care Team Description 04/10/2000 Office Visit Leroy Leal MD DYSPHAGIA; [address] ESOPHAGEAL REFLUX [place], [place] [address] (Wo rk) Social History Tobacco Use Types Packs/Day Years Used Date Smoking Tobacco: Never Assessed Sex Assigned at Date Recorded Not on file documented as of this encounter Plan of Treatment Not on filedocumented as of this encounter Visit Diagnoses Diagnosis Dysphagia Esophageal reflux documented in this encounter Care Teams Spooler Operator Relationship Specialty Start Date End Date Unassigned, Provider PCP - General 01/12/00 08/29/11 [address] [place] [address] documented as of this encounter
--- OUTSIDE RECORDS SUMMARY | 2022-02-20 12:01 | XMS_ITS | Encounter Summary ---
:1955 Author Organization [facility] Address [address], [place] [address] Care Team Providers Name Role Phone Unavailable Primary Care Provider Unavailable Encounter Details Date Type Department Care Team Description 11/22/1999 Office Visit [facility] MULTIPLE SCLEROSIS; [facility] AMD ALLERGIC RHINITIS NOS; UNASSIGNED CLINI C BIPOLAR AFFECTIVE NOS [address] [place] [address] Social History Tobacco Use Types Packs/Day Years [...]
--- OUTSIDE RECORDS SUMMARY | 2022-02-20 12:01 | XMS_ITS | Encounter Summary ---
:1955 Author Organization [facility] Address [address] [place] [address] Care Team Providers Name Role Phone Unavailable Primary Care Provider Unavailable Encounter Details Date Type Department Care Team Description 11/29/1999 Office Visit [facility] HEADACHE; [address] [place] [address] MULTIPLE SCLEROSIS; [place] [address] HYPERTENSION NOS [phone] Social History Tobacco Use Types Packs/Day Years [...]
--- OUTSIDE RECORDS SUMMARY | 2022-02-20 12:01 | XMS_ITS | Encounter Summary ---
:1955 Author Organization [facility] [address], [place] [address] Care Team Providers Name Role Phone Unassigned, Provider Primary Care Provider Unavailable Encounter Details Date Type Department Care Team Description 02/09/2000 Office Visit [facility] Shane Dominguez MD CHEST PAIN NOS Cardiology [facility] [address] [place] [address] 640 [facility] [phone] [place], [place] [address] (Wo rk) Social History Tobacco Use Types Packs/Day Years Used Date Smoking Tobacco: Never Assessed Sex Assigned at Date Recorded Not on file documented as of this encounter Plan of Treatment Not on filedocumented as of this encounter Visit Diagnoses Diagnosis Chest pain, unspecified documented in this encounter Care Teams Compressor Station Operator Relationship Specialty Start Date End Date Unassigned, Provider PCP - General 01/12/00 08/29/11 [address] [place] [address] documented as of this encounter
--- OUTSIDE RECORDS SUMMARY | 2022-02-20 12:01 | XMS_ITS | Encounter Summary ---
:1955 Author Organization [facility] Address [address] [place] [address] Care Team Providers Name Role Phone Unavailable Primary Care Provider Unavailable Encounter Details Date Type Department Care Team Description 09/28/1999 Office Visit [facility] LOW BACK PAIN(ACUTE)<6 WEEKS ; 640 [facility] SPASM OF MUSCLE; [place] [address] RIDDEN ANIMAL ACC-RIDER [phone] Social History Tobacco Use Types Packs/Day Years [...]
--- OUTSIDE RECORDS SUMMARY | 2022-02-20 12:01 | XMS_ITS | Encounter Summary ---
:1955 Author Organization [facility] Address [address] [place] [address] Care Team Providers Name Role Phone Unassigned, [...] prescriptions documented in this encounter Care Teams Cheese Pancake Roller Relationship Specialty Start Date End Date Unassigned, Provider PCP - General 01/12/00 08/29/[address] [place] [address] documented as of this encounter
--- OUTSIDE RECORDS SUMMARY | 2022-02-20 12:01 | XMS_ITS | Encounter Summary ---
:1955 Author Organization [facility] Address [address] [place] [address] Care Team Providers Name Role Phone Unassigned, Provider Primary Care Provider Unavailable Encounter Details Date Type Department Care Team Description 05/21/2000 Office Visit [facility] Aileen Patel M D ACUTE SINUSITIS NOS [facility] [address] [place] [address] Social History Tobacco Use Types Packs/Day Years Used Date Smoking Tobacco: Never Assessed Sex Assigned at Date Recorded Not on file documented as of this encounter Plan of Treatment Not on filedocumented as of this encounter Visit Diagnoses Diagnosis Acute sinusitis, unspecified documented in this encounter Care Teams Metal Sander Relationship Specialty Start Date End Date Unassigned, Provider PCP - General 01/12/00 08/29/[address] [place] [address] documented as of this encounter
--- OUTSIDE RECORDS SUMMARY | 2022-02-20 12:01 | XMS_ITS | Encounter Summary ---
:1955 Author Organization [facility] Address [address] [place] [address] Care Team Providers Name Role Phone Unavailable [...]
--- OUTSIDE RECORDS SUMMARY | 2022-02-20 12:01 | XMS_ITS | Encounter Summary ---
:1955 Author Organization [facility] Address [address] [place] [address] Care Team Providers Name Role Phone Unavailable Primary Care Provider Unavailable Reason for Visit Reason Comments NUMBNESS throat BREATHING PROBLEM allergies and MS numbness. Encounter Details Date Type Department Care Team Description 11/26/1999 Telephone Careline Lillian Holcomb NUMBNESS (throat); [address], RN BREATHING PROBLEM [place], [place] [address] [facility] (allergies and [place] [phone] BUILDING numbness. ) [address] [facility] [address] Social History Tobacco Use Types Packs/Day Years [...]
--- OUTSIDE RECORDS SUMMARY | 2022-02-20 12:01 | XMS_ITS | Encounter Summary ---
:1955 [facility] Address [address] [place] [address] Care Team Providers Name Role Phone Unavailable Primary Care Provider Unavailable Reason for Visit Reason Comments INJURY, BACK Encounter Details Date Type Department Care Team Description 09/29/1999 Telephone Careline Farhana You RN INJURY, BACK [address] [place] [address] [place] [address] Social History Tobacco Use Types Packs/Day Years [...] percoset and flexoril. PLAN: consult ana [place] turbinated bone grinder-Family Medicine Attending: recommend patient be seen in ER for re-evaluation and possible admission or change in pain medication. - Farhana You Started and completed on SatSep 29, 1999 5:40 PM documented in this encounter Plan of Treatment Not on filedocumented as of this encounter Visit Diagnoses Not on filedocumented in this encounter
--- OUTSIDE RECORDS SUMMARY | 2022-02-20 12:02 | XMS_ITS | Encounter Summary ---
:1955 Author Organization [facility] Address [address], [place] [address] Care Team Providers Name Role Phone Unavailable Primary Care Provider Unavailable Encounter Details Date Type Department Care Team Description 01/25/1999 Office Visit [facility] BIPOLAR AFFECTIVE NOS; 640 [facility] TRANSIENT [place] [address] Social History Tobacco Use Types Packs/Day Years [...]
--- OUTSIDE RECORDS SUMMARY | 2022-02-20 12:02 | XMS_ITS | Encounter Summary ---
:1955 Author Organization [facility] Address [address] [place] [address] Care Team Providers Name Role Phone Unavailable [...]
--- OUTSIDE RECORDS SUMMARY | 2022-02-20 12:02 | XMS_ITS | Encounter Summary ---
:1955 Author Organization [facility] Address [address] [place] [address] Care Team Providers Name Role Phone Unavailable [...]
--- OUTSIDE RECORDS SUMMARY | 2022-02-20 12:06 | XMS_ITS | Encounter Summary ---
:1955 Author Organization [facility] Address [address] [place] [address] Care Team Providers Name Role Phone Unavailable Primary Care Provider Unavailable Reason for Visit Reason Comments Med Refill Encounter Details Date Type Department Care Team Description 01/10/2018 Refill [place] Justin Sosa MD [address] [facility] 20 1705 [facility] 20 [place], [place] [address] [place], [place] [phone] (Wo rk) Social History Tobacco Use Types [...]
--- OUTSIDE RECORDS SUMMARY | 2022-02-20 12:06 | XMS_ITS | Encounter Summary ---
:1955 Author Organization [facility] Address [address] [place] [address] Care Team Providers Name Role Phone Unavailable Primary Care Provider Unavailable Reason for Visit Reason Comments Med Refill Encounter Details Date Type Department Care Team Description 11/07/2018 Refill Justin Love MD [address] [facility] 20 1705 [facility] 20 [place], [place] [address] [place], [place] [phone] (Wo rk) Social History Tobacco Use Types [...]
--- OUTSIDE RECORDS SUMMARY | 2022-02-20 12:06 | XMS_ITS | Encounter Summary ---
:1955 Author Organization [facility] Address [address] [place] [address] Care Team Providers Name Role Phone Unavailable Primary Care Provider Unavailable Encounter Details Date Type Department Care Team Description 06/20/2013 - [facility] Pascual Henriquez PA [address] [place], [place] [address] Acute pancreatitis; 06/24/2013 Encounter Medical/Surgical Gildardo Dunn Migraine; [address] [facility] Essential hypertension; [place], [place] Type 2 or unsp ecified type diabetes mellitus; [address] Multiple sclerosis (HCC); [phone] Bipolar affecti ve disorder (HCC); Other and [...] (ABNORMAL) Lipid panel (06/21/2013 5:30 AM CDT) P athologist Signature Cholesterol 100 0 - 199 06/21/2013 [facility] mg/dL 7:16 AM [facility] Comment: Recommended by National Cholesterol Education Program (ATP III) Cholesterol Ranges <200 ? Desirable 200-239 ? Borderline high >=240 ? High Triglycerides 241 (A) 0 - 149 mg/dL 06/21/2013 7:16 AM [facility] Comment: TRIG Ranges <150 ?Normal 150-199 ? Borderline high 200-499 ? High >=500 ? Very high HDL 47 40 - 60 mg/dL 06/21/2013 7:16 AM [facility] Comment: HDL Ranges <40 ?Low 40-59 ?Normal >=60 ? Optimal LDL Calculated 5 0 - 99 mg/dL 06/21/2013 7:16 AM [facility] Comment: LDL Ranges <100 ? Optimal 100-129 ?Near optimal/above op timal 130-159 ?Borderline high 160-189 ?High >=190 ?Very high Fasting? Unknown 06/21/2013 6:27 AM [facility] Specimen Anatomical Collection Method Collection Time Receive d Time (Source) Location / / Volume Laterality 06/21/2013 5:30 AM 4 6:28 CDT AM CDT Gildardo Dunn LAB BLOOD ORDERABLES Performing Organization Address City/State/ZIP Code Phon e Number [facility] [address] [place] [address] abdomen pelvis w IV contrast (06/20/2013 [...] 7:37 AM CDT Patient: YARY PHILIPPE Facility: [facility] Site . Site : 1955 Study: CT-Abdomen/Pelvis [...] from the original. Patient: YARY PHILIPPE Facility: [facility] Site . Site : 1955 Study: CT-Abdomen/Pelvis [...] @2013 9:59:01 PM (Electronic Signature) Richard Mason IMG CT PROCEDURES documented in this encounter Visit [...]
--- OUTSIDE RECORDS SUMMARY | 2022-02-20 12:06 | XMS_ITS | Clinical Summary ---
:1955 Author Organization [facility] Address [address] [place] [address] Care Team Providers Name Role Phone Unavailable [...] HPV Vaccines Aged Out No longer eligib sherman based on patient's age to complete this to pic
--- OUTSIDE RECORDS SUMMARY | 2022-02-20 12:06 | XMS_ITS | Encounter Summary ---
:1955 Author Organization [facility] Address [address] [place] [address] Care Team Providers Name Role Phone Unavailable Primary Care Provider Unavailable Reason for Visit Reason Comments Follow up Diabetes Encounter Details Date Type Department Care Team Description 01/05/2021 Office Visit Jose Remy, Canceled (Provider) [address] [facility] 20 [place] [address] [phone] [place] [address] (Wo rk) Social History Tobacco Use Types [...]
--- OUTSIDE RECORDS SUMMARY | 2022-02-20 12:06 | XMS_ITS | Encounter Summary ---
:1955 Author Organization Address [address] [place] [address] Care Team Providers Name Role Phone Unavailable Primary Care Provider Unavailable Encounter Details Date Type Department Care Team Description 05/03/2014 - Hospital Encounter [facility] Abnormality of gait 02/08/2015 Services , [place], DO and mobility [address] [place] [address] [place], [place] [phone] [id number] Social History Tobacco Use Types Packs/Day Years [...]
--- OUTSIDE RECORDS SUMMARY | 2022-02-20 12:06 | XMS_ITS | Encounter Summary ---
:1955 Author Organization [facility] Address [address] [place] [address] Care Team Providers Name Role Phone Unavailable Primary Care Provider Unavailable Encounter Details Date Type Department Care Team Description 06/24/2014 Hospital Encounter [facility] Multi ple sclerosis Radiology , DO Td ([facility]) [address] [facility] [address] [place] [address] S [phone] [place], [place] [phone] Social History Tobacco Use Types Packs/Day Years [...]
--- OUTSIDE RECORDS SUMMARY | 2022-02-20 12:06 | XMS_ITS | Encounter Summary ---
:1955 Author Organization [facility] Address [address] [place] [address] Care Team Providers Name Role Phone Unavailable Primary Care Provider Unavailable Reason for Visit Reason Comments Med Refill Encounter Details Date Type Department Care Team Description 02/05/2018 Refill [place] Justin Sosa MD [address] [facility] 20 1705 [facility] 20 [place], [place] [address] [place], [place] [phone] (Wo rk) Social History Tobacco Use Types Packs/Day Years Used Date Smoking Tobacco: Never Assessed Sex Assigned at Date Recorded Not on file documented as of this encounter Miscellaneous Notes Telephone Encounter - Iris Mace MA - 02/06/2018 3:50 PM CST Noted. HOUSE HAND Telephone Encounter - Justin Sosa MD - 02/06/2018 3:45 PM CST Yary is no longer a patient at our clinic so this Rx was not filled. HOUSE HAND Telephone Encounter - Hyacinth Bhat MA - 02/06/2018 2:54 PM CST Last refill: 11/05/2017 Patient's last appointment was 11/14/2016 No follow up scheduled at this time. Please advise if patient needs an appointment. Labs are over a year old. HOUSE HAND documented in this encounter Plan of Treatment Not on filedocumented as of this encounter Visit Diagnoses Not on filedocumented in this encounter
--- OUTSIDE RECORDS SUMMARY | 2022-02-20 12:06 | XMS_ITS | Encounter Summary ---
:1955 Author Organization [facility] Address [address] [place] [address] Care Team Providers Name Role Phone Unavailable Primary Care Provider Unavailable Encounter Details Date Type Department Care Team Description 05/03/2014 - [facility] Abnormality of gait 06/08/2014 Services , DO Td [address] [place] [address] [place], [place] [phone] [id number] Social History Tobacco Use Types Packs/Day Years [...]
--- OUTSIDE RECORDS SUMMARY | 2022-02-20 12:06 | XMS_ITS | Encounter Summary ---
:1955 Author Organization [facility] Address [address] [place] [address] Care Team Providers Name Role Phone Unavailable Primary Care Provider Unavailable Reason for Visit Reason Comments Med Refill Encounter Details Date Type Department Care Team Description 05/07/2018 Refill [place] Justin Sosa MD [address] [facility] [address] [facility] 20 [place], [place] [address] [place], [place] [phone] (Wo rk) Social History Tobacco Use Types [...] sent this request to her current provider. [employer] Telephone Encounter - Yary Hastings RN - 05/09/2018 9:09 AM CST Pharmacy contacted [employer] Telephone Encounter - Justin Sosa MD - 05/09/2018 8:17 AM CST There is a request for Nikolay for Yary Call. She had to change providers secondary to insurance reasons. Please call her pharmacy and let them know that they will have to send this request to her new provider. [employer] Telephone Encounter - Hyacinth Mead MA - [...] to assist in this process. Thank you. [employer] documented in this encounter Plan of Treatment Not on filedocumented as of this encounter Visit Diagnoses Not on filedocumented in this encounter
--- OUTSIDE RECORDS SUMMARY | 2022-02-20 12:06 | XMS_ITS | Encounter Summary ---
:1955 Author Organization [facility] Address [address] [place] [address] Care Team Providers Name Role Phone Unavailable Primary Care Provider Unavailable Encounter Details Date Type Department Care Team Description 10/28/2012 - Hospital Encounter [facility] Mallipeddi, Acute mireles creatitis; 10/30/2012 Medical/Surgical Vishwanth Type 2 or unspecified type d iabetes mellitus; [address] Bipolar affective disorder ( HCC); [place], [place] Other depressi ve disorder; [id number] Multiple sclerosis ([facility]); [phone] Essential hyper tension; Other and unspe cified [...]
== END 2022-02-20 11:04 | disposition home or self-care (01) ==
LOC: KYNREF 11:03
PROVIDERS: PCP Nurse Practitioner Family; Visit Provider Nurse Practitioner Family
DX: N32.89 Other specified disorders of bladder (principal)
CPT/HCPCS: 87086

== ENCOUNTER 2022-07-24 09:42 | Outpatient (CLI) | payer MEDICARE, SELFPAY ==
[2022-07-25 17:27] LABS: Basophils Percent Auto 0.7 % (0.0-3.0); Eosinophils Percent Auto 10.3 % (0.0-7.0); Hematocrit 42.9 % (33.0-51.0); Hemoglobin* 14.2 gm/dL (12.0-16.0); Immature Granulocytes Pct Auto 0.2 %; Lymphocytes Percent Auto 20.2 % (20-44); Mean Corpuscular HGB Conc 33 gm/dL (32-36); Mean Corpuscular Hemoglobin 32 pg (26-34); Mean Corpuscular Volume 96 fL (80-100); Monocytes Percent Auto 5.9 % (0.0-11.0); Neutrophils Percent Auto 62.7 % (42.0-72.0); Platelet Count* 365 K/uL (140-440); Red Blood Count 4.49 m/uL (4.00-5.20); White Blood Count* 16.17 K/uL (4.50-11.00)
[2022-07-25 17:32] LABS: Chloride* 105 mmol/L (96-114); Sodium* 135 mmol/L (135-149)
[2022-07-25 17:34] LABS: Alkaline Phosphatase* 112 U/L (40-150); Amylase* 133 U/L (18-89); Aspartate Amino Transferase* 18 U/L (12-35); Bilirubin Total* 0.2 mg/dL (0.1-1.5); Blood Urea Nitrogen* 11 mg/dL (7-30); Carbon Dioxide* 21 mmol/L (20-32); Creatinine* 0.6 mg/dL (0.5-1.5); Estimated Glomerular Filt Rate 98 ml/min; Slide Review Reflex No; Total Protein* 6.9 g/dL (6.0-8.3)
[2022-07-25 17:35] LABS: Alanine Aminotransferase* 18 U/L (4-35); Calcium* 10.5 mg/dL (8.4-10.6); Cholesterol* 165 mg/dL (90-199); HDL Cholesterol* 42 mg/dL (>=50); LDL Cholesterol Calculated 58 mg/dL (<100); Lipase* 709 U/L (23-300); Triglycerides* 325 mg/dL (40-149)
[2022-07-25 17:46] LABS: Creatinine Urine 99.9 mg/dL
[2022-07-25 17:50] LABS: Microalbumin Creatinine Ratio 110 mg/g (0-30); Microalbumin Urine 11 mg/dL
[2022-07-25 18:50] LABS: Glucose* 402 mg/dL (60-115)
== END 2022-07-24 09:43 | disposition home or self-care (01) ==
PROVIDERS: PCP Nurse Practitioner Family; Visit Provider Nurse Practitioner Family
DX: R10.9 Unspecified abdominal pain (principal); E11.9 Type 2 diabetes mellitus without complications; E55.9 Vitamin D deficiency, unspecified; I10 Essential (primary) hypertension; E78.5 Hyperlipidemia, unspecified
CPT/HCPCS: 36415; 80053; 80061; 82043; 82150; 82570; 83690; 84443; 85025

== ENCOUNTER 2022-09-17 11:15 | Outpatient (CLI) | payer MEDICARE, SELFPAY | END 2022-09-17 11:16 | disposition home or self-care (01) | PROVIDERS: PCP Nurse Practitioner Family; Visit Provider Nurse Practitioner Family | DX: K85.90 Acute pancreatitis without necrosis or infection, unspecified (principal); R10.9 Unspecified abdominal pain; E55.9 Vitamin D deficiency, unspecified; E11.9 Type 2 diabetes mellitus without complications; I10 Essential (primary) hypertension; E78.5 Hyperlipidemia, unspecified | CPT/HCPCS: 80053; 82150; 83690; 85025 ==

== ENCOUNTER 2023-04-10 10:06 | Outpatient (CLI) | payer MEDICARE, OTHER, SELFPAY ==
--- OUTSIDE RECORDS SUMMARY | 2023-04-10 10:15 | XMS_ITS | Clinical Summary ---
Author Name Unknown Organization [facility] Address [place], [place] [address] Care Team Providers Care Telehealth Director Name Role Phone Anne Esquivel REGULATORY LEAD Primary Care Provider [phone] Allergies Active Allergy Reactions Criticality Noted Date Comments Lactose GI Upset 10/16/2002 Nitrofurantoin Hives Medium 01/17/2010 Pollen Extracts Hives 02/02/2011 Prednisone Myalgia 07/03/2002 Sulfamethoxazole *Unknown 10/04/2010 Sulfamethoxazole-Trimethoprim Hives Medium 2009 Trimethoprim *Unknown 05/17/2021 Medications Medication Sig Dispensed Refills Start Date End Date Status amLODIPine (NORVASC) 5 mg tablet Take 5 mg by mouth at bedtime. 0 Active DULoxetine (CYMBALTA) 30 mg Delayed-release capsule Take 30 mg by mouth every morning. 0 Active DULoxetine (CYMBALTA) 60 mg Delayed-release capsule Take 60 mg by mouth at bedtime. 0 Active glipiZIDE (GLUCOTROL) 10 mg tablet Take 20 mg by mouth at bedtime. 0 Active insulin glargine, U-100, (Lantus U-100 Insulin) 100 unit/mL injection Inject 30 units subcutaneous 2 times daily at 8 AM and 10 PM. Product desired: LANTUS 0 Active losartan (COZAAR) 100 mg tablet Take 100 mg by mouth at bedtime. 0 Active montelukast (SINGULAIR) 10 mg tablet Take 10 mg by mouth at bedtime. 0 Active multivitamins-iron miner blasting als-lutein (Centrum Silver) 0.4 mg-300 mcg- 250 mcg tab Take 1 Tablet by mouth at bedtime. 0 Active ondansetron (ZOFRAN ODT) [address] 4 mg on the tongue 3 times daily if needed for Nausea/Vomiting. 0 Active oxyCODONE (ROXICODONE) 5 mg immediate release tablet Take 5 mg by mouth every 8 hours if needed for Pain. 0 Active QUEtiapine (SEROQUEL) 400 mg tablet Take 400 mg by mouth at bedtime. 0 Active SUMAtriptan (IMITREX) 100 mg tablet Take 100 mg by mouth every 2 hours if needed for Migraine. Give at minimum 2hrs apart. Max Dose: 200mg per 24hrs. 0 Active rxcjru-yldjgjgr-hta lase (CREON) 24,000-76,000 -120,000 unit cpDR delayed-release capsuleIndications: Chronic pancreatitis, unspecified pancreatitis type (HC) Take 2 Capsules by mouth four times daily with meals and at bedtime. 120 Capsule 0 11/24/2022 Active atorvastatin (Lipitor) 10 mg tablet Take 10 mg by mouth once daily. Take 1 tab (10 mg) by mouth daily 0 Active oxybutynin XL (DITROPAN XL) 10 mg CR tablet Take 10 mg by mouth once daily. 0 Active apixaban (Eliquis DVT-PE Treat 30D Start) tablet in a dose packIndications:Acu te deep vein thrombosis (DVT) of axillary vein of right upper extremity (HC) Take by mouth as directed on starter pack. 74 Tablet 0 01/08/2023 Active sennosides (SENNA) 8.6 mg tabletIndications:C hronic, continuous use of opioids Take 1-2 Tablets (8.6-17.2 mg) by mouth 2 times daily if needed for Constipation. 30 Tablet 0 01/08/2023 Active polyethylene glycoL (MIRALAX) 17 gram/scoop powderIndications:C hronic, continuous use of opioids Mix 1 scoop (17 g) in liquid then take by mouth once daily if needed for Constipation. 510 g 0 01/08/2023 Active acetaminophen (TYLENOL EXTRA STRGTH) 500 mg tabletIndications:A cute deep vein thrombosis (DVT) of axillary vein of right upper extremity (HC),Pain of right upper extremity Take 2 Tablets (1,000 mg) by mouth every 6 hours if needed for Pain (For mild pain). Max acetaminophen dose: 4000mg in 24 hrs. 10 Tablet 0 01/08/2023 Active Active Problems Problem Noted Date Diagnosed Date Acute deep vein thrombosis ( DVT) of axillary vein of left upper extremity 01/06/2023 Chronic pancreatitis 01/06/2023 Calculus of pancreatic duct 01/01/2023 Other chronic pancreatitis 11/22/2022 Other constipation 11/22/2022 Type 2 diabetes mellitus wit h diabetic neuropathy, without long-term current use of insulin 11/22/2022 Bipolar disorder, in full re mission, most recent episode mixed 11/22/2022 HTN (hypertension) 11/22/2022 Hyperlipidemia 11/22/2022 Chronic abdominal pain 10/23/2022 Duodenitis 05/22/2021 Seasonal allergic rhinitis 01/12/2019 Migraine headache 01/12/2019 Essential hematuria 01/18/2010 Bipolar disorder 09/18/2005 Overview: Epic Bipolar disorder NOS Encounters Date Type Department Care Team Description 03/08/2023 12:00 PM RUG SAMPLE BEVELER - 03/08/2023 3:27 PM RUG SAMPLE BEVELER Emergency [facility] [address] [place] [address] Harry Jacobo PA Pancreatic duct stones (Primary Dx) Discharge Disposition: Home Self Care 03/08/2023 Travel 01/31/2023 Home Care Visit [facility] [address] [place] [address] Gwendolyn Winter LISW PRODUCT PICKER - CASE COMMUNICATION 01/25/2023 Home Care Visit [facility] [address] [place] [address] Gwendolyn Winter LISW PRODUCT PICKER - CASE COMMUNICATION 01/23/2023 1:00 PM CDT Home Care Visit [facility] [address] [place] [address] Kiko Dinero RN SN - OASIS DISCHARGE 01/23/2023 8:15 AM CDT Home Care Visit [facility] [address] [place] [address] Gwendolyn Winter LISW PRODUCT PICKER - HOME VISIT 01/22/2023 12:00 PM CDT Home Care Visit [facility] [address] [place] [address] Lexy Villarreal LEAD DEVELOPER - HOME VISIT 01/18/2023 11:00 AM CDT Home Care Visit [facility] [address] [place] [address] Lexy Villarreal LEAD DEVELOPER - HOME VISIT 01/17/2023 Home Care Visit [facility] [address] [place] [address] Gwendolyn Winter LISW CARE COORDINATION 01/16/2023 2:30 PM CDT Home Care Visit [facility] [address] [place] [address] Kiko Dinero, RN SN - HOME VISIT 01/15/2023 12:00 PM CDT Home Care Visit [facility] [address] [place] [address] Lexy Villarreal LEAD DEVELOPER - HOME VISIT 01/11/2023 Home Care Visit [facility] [address] [place] [address] Lexy Villarreal LEAD DEVELOPER - MISSED VISIT 01/10/2023 Home Care Visit [facility] [address] [place] [address] Lexy Villarreal LEAD DEVELOPER - MISSED VISIT 01/09/2023 12:00 PM CDT Home Care Visit [facility] [address] [place] [address] Kiko Dinero, RN SN - MISSED VISIT 01/08/2023 Home Care Visit [facility] [address] [place] [address] Kiko Dinero, RN CARE COORDINATION 01/08/2023 Telephone [facility] [address] [facility] [address] [place] [address] Center, [facility] 01/06/2023 2:39 PM CDT - 01/08/2023 10:30 AM CDT Emergency [facility] [address] [facility] [place] [address] Kira Camejo MD Nguyen, ROSITA Hartman Jennifer Rose F, MD Acute deep vein thrombosis (DVT) of axillary vein of right upper extremity (HC) (Primary Dx); Pain of right upper extremity; Edema of right upper arm; Acute deep vein thrombosis (DVT) of axillary vein of left upper extremity (HC); Chronic pancreatitis, unspecified pancreatitis type (HC); Chronic abdominal pain; Chronic, continuous use of opioids; Other problems related to housing and economic circumstances; Low income Discharge Disposition: Home Health from Last 3 Months Social History Tobacco Use Types Packs/Day Years Used Date Smoking Tobacco: Every Day Cigarettes Passive Smoke Exposure: Current Smokeless Tobacco: Never Tobacco Cessation:Ready to Q uit: No; Counseling Given: Yes Alcohol Use Standard Drinks/Week Comments Never 0 (1 standard drink = 0.6 oz pur e alcohol) Social Connections Answer Date Recorded Frequency of Communication with Friends and Fami ly 0 11/22/2022 Financial Resource Strain Answer Date R ecorded Difficulty of Paying Living Expenses 1 11/22/2022 Difficulty of Paying Living Expenses 2 11/22/2022 Food Insecurity Answer Date Recorded Worried About Running Out of Food in the Last Ye ar 1 11/22/2022 Transportation Needs Answer Date Record ed Lack of Transportation (Medical) 1 11/22/2022 Housing Stability Answer Date Recorded Unable to Pay for Housing in the Last Year 1 11/22/2022 Sex and Gender Information Value Date Recorded Sex Assigned at Not on file Gender Identity Not on file Sexual Orientation Not on file Obstetrics History Last Filed Vital Signs Vital Sign Reading Time Taken Comments Blood Pressure 145/72 03/08/2023 11:25 AM RUG SAMPLE BEVELER Pulse 78 03/08/2023 9:49 AM RUG SAMPLE BEVELER Temperature 37 ??C (98.6 ??F) 03/08/2023 9:49 AM RUG SAMPLE BEVELER Respiratory Rate 16 03/08/2023 9:49 AM RUG SAMPLE BEVELER Oxygen Saturation 94% 03/08/2023 11:25 AM RUG SAMPLE BEVELER Inhaled Oxygen Concentration - - Weight 58.1 kg (128 lb) 03/08/2023 9:49 AM RUG SAMPLE BEVELER Height 162.6 cm (5' 4) 03/08/2023 9:49 AM RUG SAMPLE BEVELER Body Mass Index 21.97 03/08/2023 9:49 AM RUG SAMPLE BEVELER Plan of Treatment Health Maintenance Due Date Last Done Comments COVID-19 vaccine series (#1) 1954 Pneumococcal series for age 65+ (1 of 2 - PCV) 961 Tdap 1965 Depression screening for age 12+ 1966 BMI (ht and wt on same day) for age 18+ 1972 Hepatitis C screening for age 18-79 1972 Tetanus booster 1974 Colonoscopy through age 75 1999 Mammogram for age 45-75 1999 Zoster (shingles) series for age 50+ (1 of 2) 05/24/19 05 DEXA/DXA scan for age 65+ 2019 Medicare Wellness for age 65+ 2019 Influenza for age 65+ 11/30/2022 Lipids for age 45-75 11/23/2027 11/22/2022 Procedures Procedure Name Priority Date/Time Associated Diagnosis Comments US ABDOMEN LIMITED RUQ STAT 03/08/2023 12:53 PM RUG SAMPLE BEVELER C-REACTIVE PROTEIN KAMILLE 03/08/2023 10 :58 AM RUG SAMPLE BEVELER PLATELET ESTIMATE STAT 03/08/2023 10: 58 AM RUG SAMPLE BEVELER RED CELL MORPHOLOGY STAT 03/08/2023 1 0:58 AM RUG SAMPLE BEVELER LIPASE STAT 03/08/2023 10:58 AM RUG SAMPLE BEVELER COMP METABOLIC PANEL STAT 03/08/2023 10:58 AM RUG SAMPLE BEVELER CBC W PLT NO DIFF STAT 03/08/2023 10: 58 AM RUG SAMPLE BEVELER URINALYSIS MICROSCOPIC STAT 03/08/2023 10:25 AM RUG SAMPLE BEVELER UA W/ SEDIMENT EXAM REFLEXED PER CRITERIA STAT 03/08/2023 10:25 AM RUG SAMPLE BEVELER GLUCOSE METER Routine 01/08/2023 7:53 AM CDT SCAN-CARDIAC STRIP 01/08/2023 7: 21 AM CDT POTASSIUM Early AM 01/08/2023 6:55 AM CDT MAGNESIUM Early AM 01/08/2023 6:55 AM CDT from Last 3 Months Results * US ABDOMEN LIMITED RUQ (03/08/2023 12:53 PM RUG SAMPLE BEVELER) Anatomical Region Laterality Modality Abdomen, LIVER Ultrasound 03/08/2023 2:40 PM RUG SAMPLE BEVELER Impressions 03/08/2023 2:40 PM RUG SAMPLE BEVELER 1. Findings similar to CT abdomen pelvis from November 22, 2022 there is dilated main pancreatic duct, measuring up to 8 mm with ductal/parenchymal calcifications. Findings again the likely sequela of chronic pancreatitis. 2. Status post cholecystectomy. Stable mild biliary duct dilation. Dictated by Waylon Kelly MD @ 03/08/2023 2:40:43 PM (Electronically Signed) Narrative 03/08/2023 2:40 PM RUG SAMPLE BEVELER For Patients: ??As a result of the Century Cures Act, medical imaging exams and procedure reports are released immediately into your electronic medical record. ??You may view this report before your referring provider. ??If you have questions, please contact your health care provider. INDICATION: Abdomen pain TECHNIQUE: Ultrasound abdomen limited. ??Sonographic images of the right upper quadrant were obtained using erniquez-scale and color Doppler images. COMPARISON: CT abdomen pelvis November 22, 2022. FINDINGS: Liver: Normal in size and echotexture. ??No suspicious masses. ??No intrahepatic biliary dilatation. Gallbladder: Status post cholecystectomy Common bile duct: 8 mm. ?? Pancreas: Findings similar to CT abdomen pelvis from November 22, 2022 there is dilated main pancreatic duct, measuring up to 8 mm with ductal/parenchymal calcifications. Findings again the likely sequela of chronic pancreatitis. Right kidney: Normal in size. ??Normal echotexture and cortex. ??No suspicious masses, stones, or hydronephrosis. Vasculature: Proximal abdominal aorta and IVC are unremarkable. ?? Procedure Note Waylon Kelly MD - 03/08/2023 For Patients: As a result of the Cures Act, medical imagingexams and procedure reports are released immediately into your electronicmedical record. You may view this report before your referring provider.If you have questions, please contact your health care provider. INDICATION: Abdomen pain TECHNIQUE: Ultrasound abdomen limited. Sonographic images of the right upperquadrant were obtained using enriquez-scale and color Doppler images. COMPARISON: CT abdomen pelvis November 22, 2022. FINDINGS: Liver: Normal in size and echotexture. No suspicious masses. Nointrahepatic biliary dilatation. Gallbladder: Status post cholecystectomy Common bile duct: 8 mm. Pancreas: Findings similar to CT abdomen pelvis from November 22, 2022 thereis dilated main pancreatic duct, measuring up to 8 mm withductal/parenchymal calcifications. Findings again the likely sequela ofchronic pancreatitis. Right kidney: Normal in size. Normal echotexture and cortex. Nosuspicious masses, stones, or hydronephrosis. Vasculature: Proximal abdominal aorta and IVC are unremarkable. IMPRESSION: 1. Findings similar to CT abdomen pelvis from November 22, 2022 there isdilated main pancreatic duct, measuring up to 8 mm with ductal/parenchymalcalcifications. Findings again the likely sequela of chronic pancreatitis. 2. Status post cholecystectomy. Stable mild biliary duct dilation. Dictated by Waylon Kelly MD @ 03/08/2023 2:40:43 PM (Electronically Signed) Harry MOONEY US * RED CELL MORPHOLOGY (03/08/2023 10:58 AM RUG SAMPLE BEVELER) RBC COMMENT RBC morphology appears normal RBC morphology appears normal, RBC morphology within normal limits for newborns. 03/08/2023 11:19 AM RUG SAMPLE BEVELER [facility] Blood BLOOD SPECIMEN / Unknown Butterfly / Unknown 03/08/2023 10:58 AM RUG SAMPLE BEVELER 03/08/2023 11:04 AM RUG SAMPLE BEVELER Harry MOONEY HEMATOLOGY [facility] [address] [place] [address] * PLATELET ESTIMATE (03/08/2023 10:58 AM RUG SAMPLE BEVELER) Pathologist [facility] PLATELET ESTIMATE Adequate Adequate, No estimate 03/08/2023 11:[address] [facility] Blood BLOOD SPECIMEN / Unknown Butterfly / Unknown 03/08/2023 10:58 AM RUG SAMPLE BEVELER 03/08/2023 11:04 AM RUG SAMPLE BEVELER Harry MOONEY HEMATOLOGY [facility] [address] [place] [address] * CBC with Platelets, No Differential (03/08/2023 10:58 AM RUG SAMPLE BEVELER) [facility] WHITE BLOOD COUNT 9.0 4.5 - 11.0 thou/cu mm 03/08/2023 11:[address] [facility] RED BLOOD COUNT 4.11 4.00 - 5.20 mil/cu mm 03/08/2023 11:[address] [facility] HEMOGLOBIN 13.1 12.0 - 16.0 g/dL 03/08/2023 11:[address] [facility] HEMATOCRIT 38.6 33.0 - 51.0 % 03/08/2023 11:[address] [facility] MCV 94 80 - 100 fL 03/08/2023 11:[address] [facility] MCH 31.9 26.0 - 34.0 pg 03/08/2023 11:[address] [facility] MCHC 33.9 32.0 - 36.0 g/dL 03/08/2023 11:[address] [facility] RDW 12.2 11.5 - 15.5 % 03/08/2023 11:[address] [facility] PLATELET COUNT 259 140 - 440 thou/cu mm 03/08/2023 11:[address] [facility] MPV 10.6 6.5 - 11.0 fL 03/08/2023 11:19 AM RUG SAMPLE BEVELER [facility] Blood BLOOD SPECIMEN / Unknown Butterfly / Unknown 03/08/2023 10:58 AM RUG SAMPLE BEVELER 03/08/2023 11:04 AM RUG SAMPLE BEVELER Harry MOONEY HEMATOLOGY Performing Organization Address City/[facility]/ZIP Co de Phone Number [facility] [address] [place] [address] * C-REACTIVE PROTEIN (03/08/2023 10:58 AM RUG SAMPLE BEVELER) C-REACTIVE PROTEIN <0.3 <0.5 mg/dL 03/08/2023 1:33 PM RUG SAMPLE BEVELER [facility] Blood BLOOD SPECIMEN / Unknown Butterfly / Unknown 03/08/2023 10:58 AM RUG SAMPLE BEVELER 03/08/2023 11:04 AM RUG SAMPLE BEVELER Harry MOONEY CHEMISTRY Performing Organization Address [facility]/ZIP Co de Phone Number [facility] [address] [place] [address] * LIPASE (03/08/2023 10:58 AM RUG SAMPLE BEVELER) LIPASE 13.5 13.0 - 60.0 IU/L 03/08/2023 11:42 AM RUG SAMPLE BEVELER [facility] Blood BLOOD SPECIMEN / Unknown Butterfly / Unknown 03/08/2023 10:58 AM RUG SAMPLE BEVELER 03/08/2023 11:04 AM RUG SAMPLE BEVELER Deena Mckenna MD CHEMISTRY Performing Organization Address City/[facility]/ZIP Co de Phone Number [facility] [address] [place] [address] * (ABNORMAL) Comp Metabolic Panel (03/08/2023 10:58 AM RUG SAMPLE BEVELER) SODIUM 141 136 - 145 mmol/L 03/08/2023 11:42 AM RUG SAMPLE BEVELER [facility] POTASSIUM 3.6 3.5 - 5.1 mmol/L 03/08/2023 11:[address] [facility] CHLORIDE 105 98 - 107 mmol/L 03/08/2023 11:[address] [facility] CO2,TOTAL 28 22 - 29 mmol/L 03/08/2023 11:[address] [facility] ANION GAP 8 5 - 18 03/08/2023 11:[address] [facility] GLUCOSE 143(H) 70 - 99 mg/dL 03/08/2023 11:[address] [facility] CALCIUM 9.6 8.8 - 10.2 mg/dL 03/08/2023 11:[address] [facility] BUN 13 8 - 23 mg/dL 03/08/2023 11:[address] [facility] CREATININE 0.70 0.50 - 0.90 mg/dL 03/08/2023 11:[address] [facility] BUN/CREAT RATIO 19 10 - 20 11:[address] [facility] eGFR >90 >90 mL/min/1.7 3m2 03/08/2023 11:[address] [facility] Comment:As of 2021, eG FR is calculated by the CKD-EPI creatinine equation without race adjustment. ??eGFR can be influenced by muscle mass, exercise, and diet. ??The reported eGFR is an estimation only and is only applicable if the renal function is stable. ALBUMIN 3.8(L) 4.0 - 4.9 g/dL 03/08/2023 11:[address] [facility] PROTEIN,TOTAL 6.7 6.0 - 8.0 g/dL 03/08/2023 11:[address] [facility] BILIRUBIN,TOTAL 0.3 0.0 - 1.2 mg/dL 03/08/2023 11:[address] [facility] ALK PHOSPHATASE 105(H) 35 - 104 IU/L 03/08/2023 11:[address] [facility] ALT (SGPT) 44(H) 10 - 35 IU/L 03/08/2023 11:[address] [facility] AST (SGOT) 30 10 - 35 IU/L 03/08/2023 11:[address] [facility] Blood BLOOD SPECIMEN / Unknown Butterfly / Unknown 03/08/2023 10:58 AM RUG SAMPLE BEVELER 03/08/2023 11:04 AM RUG SAMPLE BEVELER Harry MOONEY CHEMISTRY Performing Organization Address [facility]/ZIP Co de Phone Number [facility] [address] [place] [address] * (ABNORMAL) URINALYSIS MICROSCOPIC (03/08/2023 10:25 AM RUG SAMPLE BEVELER) RBC >100(A) 0-2, None Seen /HPF 03/08/2023 10:[address] [facility] WBC 6-10(A) 0-2, 3-5, None Seen /HPF 03/08/2023 10:[address] [facility] BACTERIA Rare None Seen, Rare, Few Bacteria/ HPF 03/08/2023 10:[address] [facility] EPITHELIAL CELLS Few None Seen, Few Epi/HPF 03/08/2023 10:[address] [facility] CALCIUM OXALATE CRYSTALS Present(A) (none) 03/08/2023 10:[address] [facility] Urine URINE SPECIMEN / Unknown Non-Blood / Unknown 03/08/2023 10:25 AM RUG SAMPLE BEVELER 03/08/2023 10:30 AM RUG SAMPLE BEVELER Harry MOONEY URINE Performing Organization Address City/[facility]/ZIP Co de Phone Number [facility] [address] [place] [address] * (ABNORMAL) Urinalysis W Reflex Microscopic if Positive (03/08/2023 10:25 AM RUG SAMPLE BEVELER) COLOR Brown(A) Yellow Color 03/08/2023 10:[address] [facility] CLARITY Cloudy(A) Clear Clarity 03/08/2023 10:[address] [facility] SPECIFIC GRAVITY,URINE 1.025 1.010, 1.015, 1.020, 1.025 03/08/2023 10:[address] [facility] PH,URINE 5.5 6.0, 7.0, 8.0, 5.5, 6.5, 7.5, 8.5 03/08/2023 10:[address] [facility] UROBILINOGEN,QU ALITATIVE Normal Normal EU/dl 03/08/2023 10:[address] [facility] PROTEIN, URINE 30(A) Negative mg/dL 03/08/2023 10:[address] [facility] GLUCOSE, URINE Negative Negative mg/dL 03/08/2023 10:[address] [facility] KETONES,URINE Negative Negative mg/dL 03/08/2023 10:[address] [facility] BILIRUBIN,URINE Abnormal(A) Negative 03/08/20 10:[address] [facility] Comment:A variety of metabol ites and/or medications may result in a positive bilirubin result. Clinical correlation is recommended. OCCULT BLOOD,URINE Large(A) Negative 03/08/2023 10:[address] [facility] NITRITE Negative Negative 03/08/2023 10:[address] [facility] LEUKOCYTE ESTERASE Trace(A) Negative 03/08/2023 10:[address] [facility] Urine URINE SPECIMEN / Unknown Non-Blood / Unknown 03/08/2023 10:25 AM RUG SAMPLE BEVELER 03/08/2023 10:30 AM [facility] Harry MOONEY URINE [facility] [address] [place] [address] * (ABNORMAL) GLUCOSE METER (01/08/2023 7:53 AM CDT) [facility] Signature GLUCOSE METER 132(H) 65 - 100 mg/dL 01/08/2023 8:10 AM CDT [facility] Blood BLOOD SPECIMEN / Unknown 01/08/2023 7:53 AM CDT 01/08/2023 8:10 AM CDT Ivone Lucas MD CHEMISTR Y Performing Organization Address [facility] Co de Phone Number [facility] [address], [place] [id number] * SCAN-CARDIAC STRIP (01/08/2023 7:21 AM CDT) Scanner OTHER * POTASSIUM (01/08/2023 6:55 AM CDT) POTASSIUM 3.8 3.5 - 5.1 mmol/L 01/08/2023 7:30 AM CDT [facility] Blood BLOOD SPECIMEN / Unknown Butterfly / Unknown 01/08/2023 6:55 AM CDT 01/08/2023 7:00 AM CDT Stefany Clark RN CHEMISTRY Performing Organization Address [facility] de Phone Number [facility] [address] [place] [address] * MAGNESIUM (01/08/2023 6:55 AM CDT) MAGNESIUM 1.7 1.6 - 2.4 mg/dL 01/08/2023 7:30 AM CDT [facility] Blood BLOOD SPECIMEN / Unknown Butterfly / Unknown 01/08/2023 6:55 AM CDT 01/08/2023 7:00 AM CDT Stefany Clark RN CHEMISTRY Performing Organization Address City/[facility]/ZIP Co de Phone Number [facility] [address] [place], [place] [phone] from Last 3 Months Advance Directives Documents on File Type Date Recorded Patient Peritoneal Dialysis Registered Nurse Expl anation Healthcare Directive 11/23/2022 023 Latest Code Status on File Code Status Date Activated Date Inactivated Comments Full Code 01/06/2023 7:04 PM 01/08/2023 12:46 PM Question Answer Comments Code Status Discussion: Reviewed Preferences Code Status History Code Status Date Activated Date Inactivated Comments Full Code 11/22/2022 10:09 PM 11/24/2022 2:55 PM Question Answer Comments Code Status Discussion: Reviewed Preferences Care Teams Telehealth Director Relationship Specialty Start Date End Date Anne Esquivel NP [address] [place] [id number] PCP - General Emergency Medicine 11/23/22
--- OUTSIDE RECORDS SUMMARY | 2023-04-10 10:16 | XMS_ITS | Clinical Summary ---
Author Name Unknown Organization [facility] Address [address] [place] [address] Care Team Providers Care Cash Management Specialist Name Role Phone Elsewhere, Pcp Primary Care Provider Unavailabl e Source Comments Patient records contain information from all sites at [facility]. For routine questions regarding patient records, call [phone] during business hours, M-F 8:00 AM - 5:00 PM Central Time. Record requests for emergency care only can be directed to [phone] at any time.[facility] Allergies Active Allergy Reactions Criticality Noted Date Comments Lactose GI intolerance 10/16/2002 Nitrofurantoin Hives (Reselect Reaction) 01/17/2010 Pollen Extracts Other (see comments) 02/02/2011 Prednisone Myalgia 07/03/2002 Sulfamethoxazole Other (see comments) 1 Sulfamethoxazole-Trimethoprim Hives (Res elect Reaction) 01/17/2010 Trimethoprim Other (see comments) 05/17/2021 Medications Medication Sig Dispensed Refills Start Date End Date Status losartan (COZAAR) 100 mg tablet Take 1 tablet by mouth at bedtime. 0 01/24/2015 Active QUEtiapine (SEROquel) 400 mg tablet Take 400 mg by mouth at bedtime. 0 07/11/2013 Active oxyBUTYnin (DITROPAN-XL) 10 mg 24 hr tablet Take 10 mg by mouth at bedtime. 0 Active Accu-Chek Guide test strips 3 (three) times a day. for testing 0 07/25/2022 Active cyclobenzaprine (FLEXERIL) 10 mg tablet Take 10 mg by mouth 3 (three) times a day as needed. 0 07/26/2022 Active SUMAtriptan (IMITREX) 100 mg tablet Take 100 mg by mouth as needed for migraine. May repeat dose once in 2 hours if migraine is unresolved. Do not exceed 200 mg in 24 hours. 0 Active simvastatin (ZOCOR) 40 mg tablet Take 40 mg by mouth at bedtime. 0 Active montelukast (SINGULAIR) 10 mg tablet Take 10 mg by mouth at bedtime. 0 Active DULoxetine (CYMBALTA) [address] capsule Take 30 mg by mouth every morning. 0 Active amLODIPine (NORVASC) 5 mg tablet Take 1 tablet (5 mg total) by mouth daily. 90 tablet 2 09/09/2022 Active donepeziL (ARICEPT) 5 mg tablet Take by mouth daily. 0 05/17/2021 Active ondansetron ODT (ZOFRAN-ODT) 4 mg disintegrating tablet DISSOLVE ONE TABLET ON THE TONGUE TWO TO THREE TIMES PER DAY NEEDED FOR NAUSEA AND VOMITING FOR 3 DAYS 0 09/17/2022 Active oxyCODONE (ROXICODONE) 10 mg IR tablet TAKE ONE-HALF TABLET BY MOUTH FOUR TIMES A DAY NEEDED FOR PAIN FOR 14 DAYS 0 10/16/[address] tablet Take 325 mg by mouth every 6 (six) hours as needed for pain. 0 Active varenicline (CHANTIX CECILE) 0.5 mg (11)- 1 mg (42) tablet Use as directed on package instructions, try to quit smoking after 1 week. 53 tablet 0 01/02/2023 Active fentaNYL (DURAGESIC) 12 mcg/hr patch APPLY ONE PATCH TRANSDERMALLY EVERY 72 HOURS 0 01/31/2023 Active acetaminophen (TYLENOL) 500 mg tablet Take 1,000 mg by mouth every 6 (six) hours as needed. 0 01/08/2023 Active apixaban (Eliquis DVT-PE Treatment 30 Day Starter Pack) 5 mg (74 tabs) tablet Take by mouth as directed on starter pack. 0 01/08/2023 Active atorvastatin (LIPITOR) 10 mg tablet Take 10 mg by mouth. 0 Active insulin glargine (LANTUS) 100 unit/mL injection Inject 30 Units under the skin at bedtime. 0 Active Active Problems Problem Noted Date Diagnosed Date Stone Pancreatic Duct 01/01/2023 Weakness General 10/23/2022 Pain Abdominal Chronic 10/23/2022 Dysphagia 09/06/2022 09/06/2022 Pancreatitis Acute 09/06/2022 Duodenitis 05/22/2021 09/06/2022 Diabetes Mellitus Type 2 With Diabetic Neuropath y 01/12/2019 09/06/2022 Hyperlipidemia 01/12/2019 09/06/2022 Migraine Headache 01/12/2019 09/06/2022 Rhinitis Seasonal 01/12/2019 09/06/2022 Bloating Abdominal 09/22/2014 09/06/2022 Pancreatitis Chronic Recurrent 08/29/2014 Overview: Pancreatitis Chronic Recurrent Hypertension Essential Primary 06/01/2014 Overview: Benign Essential Hypertension Essential hypertension, benign Multiple Sclerosis 06/27/2013 Overview: Multiple Sclerosis Multiple sclerosis Bipolar Disorder 08/04/2010 Overview: Bipolar disorder NOS Hematuria 01/18/2010 09/06/2022 Diabetes Mellitus Type 2 01/12/2008 023 Gastroesophageal Reflux Disease NOS 01/12/2008 09/06/2022 Unspecified Abnormalities Of Gait And Mobility 0 09/06/2005 09/06/2022 Multiple Sclerosis 11/06/2002 Encounters Date Type Department Care Team Description 04/03/2023 1:08 AM MANAGER PLANNING - 04/03/2023 3:18 AM MANAGER PLANNING Emergency [facility] [address] [place] [phone] Madhav Basurto APRN, C.N.P., D.N.P. Pancreatitis Chronic Recurrent (HCC) (Primary Dx); Abdominal Pain; Constipation Slow Transit Discharge Disposition: Home or Self Care 04/02/2023 Clinical Communication Division of Gastroenterology in [place], [place] [address] [place] [address] Jose Roberto Hays M.D. 02/19/2023 5:47 AM MANAGER PLANNING - 02/19/2023 9:13 AM MANAGER PLANNING Hospital Encounter [facility] 02 4 AM ADMIT [address] [place] [address] Luis Andrew M.D., M.P.H. Discharge Disposition: Home or Self Care 02/19/2023 5:10 AM MANAGER PLANNING - 02/19/2023 6:50 AM MANAGER PLANNING Surgery [facility] MAIN OR [address] [place] [address] Luis Andrew M.D., M.P.H. Not Performed Pancreatic LITHOTRIPSY EXTRACORPOREAL SHOCK WAVE UNILATERAL, possible multiple trips to operating room in 90 days, proceed as indicated. 02/19/2023 Clinical Communication Division of Gastroenterology in [place], [place] [address] [place] [address] Jose Roberto Hays M.D. 02/11/2023 Clinical Communication Department of Nicotine Dependence, [facility], in [place], [place] [address] [place] [address] Froy Can MCarlosACarlos Nicotine Dependence from Last 3 Months Immunizations Name Administration Dates Next Due HZV (ZOSTAVAX) 05/22/2016 Influenza (IM) Preservative Free 01/14/2013,12/31 Influenza TIV (IM) 02/17/2016, 5,02/11/2014,2011,12/07/2010,01/09/2010,04/26/2005,1 ,03/13/2000 Influenza, Seasonal, Injectable 02/17/20 16,01/10/2015,02/11/2014,2011,12/07/2010,04/26/2005,01/26/2004 Influenza, Unspecified 02/11/2014,2012,01/10/2012,2010,01/13/2010,01/22/2008 PCV13 09/21/2019,08/12/2015 PPSV23 06/29/2014,04/01/1998 Td (Adult), adsorbed 08/21/2004 Td Preservative Free (TENIVA C, DECAVAC) 01/30/2006,08/21/2004 Tdap 07/24/2022,08/21/2004 Family History Medical History Relation Name Comments Lung cancer Father Diabetes Mother Liver failure Mother Relation Name Status Comments Father Mother Social History Tobacco Use Types Packs/Day Years Used Date Smoking Tobacco: Former Cigarettes 0.5 45 0 04/01/1968 - 03/31/2023 Smokeless Tobacco: Never Tobacco Cessation:Counseling Given: Not Answered Alcohol Use Standard Drinks/Week Comments No 0 (1 standard drink = 0.6 oz pur e alcohol) Overall Financial Resource Strain (CARDIA) Answe r Date Recorded How hard is it for you to pa y for the very basics like food, housing, medical care, and heating? Hard 01/01/2023 Exercise Vital Sign Answer Date Recorde d On average, how many days pe r week do you engage in moderate to strenuous exercise (like a brisk walk)? 0 days 01/01/2023 On average, how many minutes do you engage in exercise at this level? 0 min 01/01/2023 Hunger Vital Sign Answer Date Recorded Within the past 12 months, y ou worried that your food would run out before you got the money to buy more. Often true 01/02/20 Within the past 12 months, t he food you bought just didn't last and you didn't have money to get more. Often true 01/01/2023 PRAPARE - Transportation Answer Date Re corded In the past 12 months, has l ack of transportation kept you from medical appointments or from getting medications? Yes 05/2022 In the past 12 months, has l ack of transportation kept you from meetings, work, or from getting things needed for daily living? Yes 01/01/2023 Nutrition Answer Date Recorded Nutrition: EVOO Fat Source Unknown 01/01 On average, how many serving s of fruits and vegetables do you eat per day (serving size is equal to 1 cup or approximately the size of a tennis ball)? 0-2 01/01/2023 Dental Answer Date Recorded Dental: Regular Dentist Yes 01/02/20 Employment Answer Date Recorded Employment status Permanently disabled Housing Stability Answer Date Recorded What is your living situation today? I have a [facility] place to live 01/01/2023 Sex and Gender Information Value Date Recorded Sex Assigned at Female 01/01/2023 9:08 AM CDT Gender Identity Female 01/01/2023 9:08 AM CDT Sexual Orientation Straight 01/01/2023 9: 08 AM CDT Last Filed Vital Signs Vital Sign Reading Time Taken Comments Blood Pressure 123/75 04/03/2023 3:00 AM MANAGER PLANNING Pulse 80 04/03/2023 3:00 AM MANAGER PLANNING Temperature 37.8 ??C (100 ??F) 04/03/2023 1:55 AM MANAGER PLANNING Respiratory Rate 18 04/03/2023 3:00 AM MANAGER PLANNING Oxygen Saturation 93% 04/03/2023 3:00 AM MANAGER PLANNING Inhaled Oxygen Concentration - - Weight 57.7 kg (127 lb 3.3 oz) 04/03/2023 1:15 A M MANAGER PLANNING Height 158.5 cm (5' 2.4) 02/19/2023 6:31 AM MANAGER PLANNING Body Mass Index 22.97 02/19/2023 6:31 AM MANAGER PLANNING Plan of Treatment Upcoming Encounters Date Type Department Care Team (Latest Contact Info) Description 04/26/2023 10:40 AM MANAGER PLANNING Virtual Visit Division of Gastroenterology in [place], [place] [address] [place] [address] Jose Roberto Patterson M.D. [address] [place] [phone] 04/29/2023 9:30 AM MANAGER PLANNING Appointment Division of Gastroenterology in [place], [place] [address] [place] [address] Jose Roberto Patterson M.D. [address] [place] [phone] Shane Becerra M.D. [address] [place] [phone] Discharge Disposition: Home or Self Care Health Maintenance Due Date Last Done Comments CT Colonography 1954 Cologuard 1954 Diabetic Office Visit with F oot Exam 1954 FIT 1954 Generalized Anxiety (CLIFTON-7) 1954 Hepatitis C Screening 1954 COVID-19 Vaccine (#1) 1954 Dilated Eye Exam 11/11/2011 11/10/2010 Lung Cancer Screening 03/13/2012 03/13/2011 Urine Albumin 05/04/2012 05/04/2011 Mammogram 10/15/2013 10/15/2012 (Perf ormed elsewhere), 05/30/2012 (Performed elsewhere), 05/11/2011, Additional history exists Hepatitis B Vaccines (1 of 3 - Risk 3-dose series) 2014 Zoster Vaccines (2 of 3) 07/17/2016 05/22/2016 Pneumococcal vaccine (65+ ye ars) (3 of 3 - PPSV23 or PCV20) 09/20/2020 09/21/2019, 08/12/2015, 06/29/2014, Additional history exists Colonoscopy 09/11/2021 09/12/2011 (Perf ormed elsewhere), 06/13/2004 Colorectal Cancer Screening 09/11/2021 Influenza Vaccine (#1) 2022 6, 02/17/2016, 01/10/2015, Additional history exists Controlled Substance Agreement 02/19/2023 Controlled Substance Monitor ing (PHQ-9) 02/19/2023 Controlled Substance Monitoring 02/19/2023 Opioid Risk Tool (ORT) 02/19/2023 PEG assessment for Opioid therapy 02/19/2023 Opioid Use Disorder (OUD) Screening 02/20/2023 Depression Screening (Annual PHQ-2) 04/01/2023 Fall Risk Screen (Annual) 04/01/2023 Hemoglobin A1C 08/20/2023 02/19/2023, 03/2 04/2013, 11/30/2012 (Performed elsewhere), Additional history exists Office Visit for Blood Press ure Check / Re-check 12/28/2023 12/27/2022 Creatinine Level (Kidney Fun ction Test) 04/03/2024 04/03/2023, 03/08/2023, 01/07/2023, Additional history exists Potassium Level 04/03/2024 04/03/2023, 12/10/2022, 01/08/2023, Additional history exists Sodium Level 04/03/2024 04/03/2023, 12/0 10/2022, 01/07/2023, Additional history exists Lipid (Cholesterol) Screening 11/23/2027, 06/02/2014, 11/30/2012 (Performed elsewhere), Additional history exists DTaP,Tdap,and Td Vaccines (4 - Td or Tdap) 07/24/2032 07/24/2022, 01/30/2006, 08/21/2004, Additional history exists Procedures Procedure Name Priority Date/Time Associated Diagnosis Comments CT ABDOMEN PELVIS WITH IV CONTRAST RAD - Semiurgent (Fast; most ED patients; some inpatients) 04/03/2023 2:[address] HEAD WITHOUT IV CONTRAST RAD - Semiurgent (Fast; most ED patients; some inpatients) 04/03/2023 2:30 AM MANAGER PLANNING LIPASE, S/P STAT 04/03/2023 1:41 AM MANAGER PLANNING LACTATE, B/P STAT 04/03/2023 1:41 AM MANAGER PLANNING C-REACTIVE PROTEIN (CRP), S/P STAT 04/03/2023 1:41 AM MANAGER PLANNING COMPREHENSIVE METABOLIC PANEL, S/P STAT 04/03/2023 1:41 AM MANAGER PLANNING CBC WITH DIFFERENTIAL, B STAT 04/03/2023 1:41 AM MANAGER PLANNING GLUCOSE POCT, B Routine 02/19/2023 6:17 AM MANAGER PLANNING HEMOGLOBIN A1C, B Routine 02/19/2023 6:1 7 AM MANAGER PLANNING from Last 3 Months Results * CT Abdomen Pelvis with IV Contrast (04/03/2023 2:34 AM MANAGER PLANNING) Anatomical Region Laterality Modality Abdomen, Pelvis, Abdominal R ST LOS, Abdominal ARZ LOS, Abdominal FLA LOS N/A Computed Tomography 04/03/2023 2:24 AM MANAGER PLANNING Impressions 04/03/2023 2:53 AM MANAGER PLANNING 1. Sequela of chronic pancreatitis without imaging findings of acute pancreatitis. 2. Large colonic stool burden could indicate constipation. Narrative 04/03/2023 2:53 AM MANAGER PLANNING EXAM: CT ABDOMEN PELVIS WITH IV CONTRAST COMPARISON: Abdomen CT 01/05/2023. FINDINGS: Sequela chronic pancreatitis including coarse calcifications in the head and uncinate process and chronic pancreatic duct dilation. No findings of acute pancreatitis or peripancreatic fluid collections. Small renal cysts. Large colonic stool burden. Aortoiliac atherosclerosis. Procedure Note Marvel Owens M.D. - 04/03/2023 EXAM: CT ABDOMEN PELVIS WITH IV CONTRAST COMPARISON: Abdomen CT 01/05/2023. FINDINGS: Sequela chronic pancreatitis including coarse calcifications inthe head and uncinate process and chronic pancreatic duct dilation. Nofindings of acute pancreatitis or peripancreatic fluid collections. Small renal cysts. Large colonic stool burden. Aortoiliac atherosclerosis. IMPRESSION: 1. Sequela of chronic pancreatitis without imaging findings of acutepancreatitis. 2. Large colonic stool burden could indicate constipation. Madhav Basurto APRN, C.N.P., D.N.P. IMG CT PROCEDURES * CT Head without IV Contrast (04/03/2023 2:30 AM MANAGER PLANNING) Anatomical Region Laterality Modality Head, Neuroradiology RST LOS , Neuroradiology [facility], Neuroradiology FLA LOS N/A Computed Tomography 04/03/2023 2:18 AM MANAGER PLANNING Impressions 04/03/2023 2:37 AM MANAGER PLANNING 1. ??Negative for acute intracranial abnormality. 2. ??Stable patchy white matter hypoattenuation compatible with known demyelinating disease. Narrative 04/03/2023 2:37 AM MANAGER PLANNING EXAM: CT HEAD WITHOUT IV CONTRAST COMPARISON: 07/16/2018 FINDINGS: Negative for acute intracranial hemorrhage or mass effect. Normal-size and configuration of the ventricles and subarachnoid spaces. Unchanged moderate multifocal deep and periventricular white matter hypoattenuation including multifocal hypoattenuation within the left periventricular temporal lobe. Intact calvarium. Patent mastoids. Mild maxillary sinus mucosal thickening. Procedure Note Luis Sinha M.D. - 04/03/2023 EXAM: CT HEAD WITHOUT IV CONTRAST COMPARISON: 07/16/2018 FINDINGS: Negative for acute intracranial hemorrhage or mass effect. Normal-size andconfiguration of the ventricles and subarachnoid spaces. Unchangedmoderate multifocal deep and periventricular white matter hypoattenuationincluding multifocal hypoattenuation within the left periventricular temporal lobe. Intact calvarium. Patent mastoids. Mild maxillary sinus mucosalthickening. IMPRESSION: 1. Negative for acute intracranial abnormality. 2. Stable patchy white matter hypoattenuation compatible with knowndemyelinating disease. Madhav Basurto APRN, C.N.P., D.N.P. IMG CT PROCEDURES * (ABNORMAL) CBC with Differential, Blood (04/03/2023 1:41 AM MANAGER PLANNING) [facility] Hemoglobin 12.0 11.6 - 15.0 g/dL 04/03/2023 2:28 AM MANAGER PLANNING CNFL Hematocrit 35.4(L) 35.5 - 44.9 % 04/03/2023 2:28 AM MANAGER PLANNING CNFL Erythrocytes 3.75(L) 3.92 - 5.13 x10(12)/L 04/03/2023 2:28 AM MANAGER PLANNING CNFL MCV 94.4 78.2 - 97.9 fL 04/03/2023 2:28 AM MANAGER PLANNING CNFL RBC Distrib Width 12.2 12.2 - 16.1 % 04/03/2023 2:28 AM MANAGER PLANNING CNFL Platelet Count 212 157 - 371 x10(9)/L 04/03/2023 2:28 AM MANAGER PLANNING CNFL Leukocytes 4.7 3.4 - 9.6 x10(9)/L 04/03/2023 2:28 AM MANAGER PLANNING CNFL Neutrophils 1.91 1.56 - 6.45 x10(9)/L 04/03/2023 2:28 AM MANAGER PLANNING CNFL Lymphocytes 1.81 0.95 - 3.07 x10(9)/L 04/03/2023 2:28 AM MANAGER PLANNING CNFL Monocytes 0.85(H) 0.26 - 0.81 x10(9)/L 04/03/2023 2:28 AM MANAGER PLANNING CNFL Eosinophils 0.15 0.03 - 0.48 x10(9)/L 04/03/2023 2:28 AM MANAGER PLANNING CNFL Basophils <0.04 0.01 - 0.08 x10(9)/L 04/03/2023 2:28 AM MANAGER PLANNING CNFL Blood (Blood, Venous) 04/03/2023 1:41 AM MANAGER PLANNING 04/03/2023 2:03 AM MANAGER PLANNING Mona Tan APRN.N.P., D.N.P. LAB BLOOD ADD-ON Performing Organization Address City/[facility] [place] [address], [place] [address] * CRP (C-Reactive Protein) (04/03/2023 1:41 AM MANAGER PLANNING) C-Reactive Protein (CRP), P 3.5 <5.0 mg/L 04/03/2023 2:24 AM MANAGER PLANNING CNFL Blood (Blood, Venous) 04/03/2023 1:41 AM MANAGER PLANNING 04/03/2023 2:03 AM MANAGER PLANNING Madhav Basurto APRN, Mona.N.P., D.N.P. LAB BLOOD ADD-ON Performing Organization Address [facility] [place] [address], [place] [address] * (ABNORMAL) Lipase (04/03/2023 1:41 AM MANAGER PLANNING) Lipase, P 9(L) 13 - 60 U/L 04/03/2023 2: 24 AM MANAGER PLANNING CNFL Blood (Blood, Venous) 04/03/2023 1:41 AM MANAGER PLANNING 04/03/2023 2:03 AM MANAGER PLANNING Mona Tan APRN.N.P., D.N.P. LAB BLOOD ADD-ON Performing Organization Address City/[facility]/[place] [address], [place] [address] * Lactate (04/03/2023 1:41 AM MANAGER PLANNING) Lactate, P 1.0 0.5 - 2.2 mmol/L 04/03/2023 2:22 AM MANAGER PLANNING CNFL Blood (Blood, Venous) 04/03/2023 1:41 AM MANAGER PLANNING 04/03/2023 2:03 AM MANAGER PLANNING Mona Tan APRN.N.P., D.N.P. LAB BLOOD NON ADD-ON Performing Organization Address City/[facility]/[place] [address], [place] [address] * (ABNORMAL) Comprehensive Metabolic Panel (04/03/2023 1:41 AM MANAGER PLANNING) Potassium, P 3.9 3.6 - 5.2 mmol/L 04/03/2023 2:24 AM MANAGER PLANNING CNFL Sodium, P 134(L) 135 - 145 mmol/L 04/03/2023 2:24 AM MANAGER PLANNING CNFL Chloride, P 99 98 - 107 mmol/L 04/03/2023 2:24 AM MANAGER PLANNING CNFL Bicarbonate, P 26 22 - 29 mmol/L 04/03/2023 2:24 AM MANAGER PLANNING CNFL Anion Gap, P 9 7 - 15 04/03/2023 2:24 AM MANAGER PLANNING CNFL BUN (Blood Urea Nitrogen), P 13 6 - 21 mg/dL 04/03/2023 2:24 AM MANAGER PLANNING CNFL Creatinine 0.89 0.59 - 1.04 mg/dL 04/03/2023 2:24 AM MANAGER PLANNING CNFL Estimated GFR (eGFR) 71 >=60 mL/min/BS A 04/03/2023 2:24 AM MANAGER PLANNING CNFL Comment: Estimated GFR calculated using the 2020 CKD_EPI creatinine equation. Calcium, Total, P 9.0 8.8 - 10.2 mg/dL 04/03/2023 2:24 AM MANAGER PLANNING CNFL Glucose, P 188(H) 70 - 140 mg/dL 04/03/2023 2:24 AM MANAGER PLANNING CNFL Protein, Total, P 6.2(L) 6.3 - 7.9 g/dL 04/03/2023 2:24 AM MANAGER PLANNING CNFL Albumin, P 3.8 3.5 - 5.0 g/dL 04/03/2023 2:24 AM MANAGER PLANNING CNFL Aspartate Aminotransferase (AST), P 27 8 - 43 U/L 04/03/2023 2:24 AM MANAGER PLANNING CNFL Alkaline Phosphatase, P 91 35 - 104 U/L 04/03/2023 2:24 AM MANAGER PLANNING CNFL Alanine Aminotransferase (ALT), P 30 7 - 45 U/L 04/03/2023 2:24 AM MANAGER PLANNING CNFL Bilirubin, Total, P <0.2 0.0 - 1.2 mg/dL 04/03/2023 2:24 AM MANAGER PLANNING CNFL Blood (Blood, Venous) 04/03/2023 1:41 AM MANAGER PLANNING 04/03/2023 2:03 AM MANAGER PLANNING Madhav Basurto APRN, C.N.P., D.N.P. LAB BLOOD ADD-ON Performing Organization Address [facility]/State/ZIP Co de Phone Number [facility] [address] [place] [phone], [facility] in [address] [address] * Glucose, POCT (02/19/2023 6:17 AM MANAGER PLANNING) Glucose, POCT, B 82 70 - 140 mg/dL 02/19/2023 6:38 AM MANAGER PLANNING PCDE Site Capillary 02/19/2023 6:38 AM MANAGER PLANNING PCDE Blood 02/19/2023 6:17 AM MANAGER PLANNING 02/19/2023 6:38 AM MANAGER PLANNING Unknown Provider LAB POCT ORDERABLES- MANUAL Performing Organization Address City/[facility]/ZIP Co de Phone Number [facility] [address] [place] [address], [facility] PCDE [facility] POC [address] [place] [address] * (ABNORMAL) Hemoglobin A1c (02/19/2023 6:17 AM MANAGER PLANNING) Hemoglobin A1c, B 7.8(H) 4.0 - 5.6 % 02/19/2023 7:11 AM MANAGER PLANNING DTL Comment: Hemoglobin A1c values greater than or equal to 6.5 percent are diagnostic for diabetes mellitus. ??Diagnosis should be confirmed by repeat testing. ??In diabetic patients, HbA1c goals should be discussed with healthcare provider. Blood (Blood, Venous) 02/19/2023 6:17 AM MANAGER PLANNING 02/19/2023 6:33 AM MANAGER PLANNING Luis Andrew M.D., M.P.H. LAB BLOOD ADD-ON [facility] [address] [place] [address], [place] DTL [facility] [address] [place] [address] from Last 3 Months Advance Directives For more information, please contact: [phone] Documents on File Type Date Recorded Patient Parks And Recreation Manager Expl anation Advance Directives 09/17/2011 12:00 AM Leg acy document. See document viewer. Latest Code Status on File Code Status Date Activated Date Inactivated Comments Full Code 10/23/2022 2:51 PM 10/25/2022 1:26 AM Question Answer Comments Full Code: Discussed Care Teams Cash Management Specialist Relationship Specialty Start Date End Date Elsewhere, Pcp PCP - General Internal Medicine 06/26/22
--- OUTSIDE RECORDS SUMMARY | 2023-04-10 10:16 | XMS_ITS | Encounter Summary ---
Author Name Unknown Organization [facility] Address [address] [place] [address] Care Team Providers Care Top Stop Attacher Name Role Phone Elsewhere, Pcp Primary Care Provider Unavailabl e Reason for Visit * Auth/Cert (Routine) Specialty Diagnoses / Procedures Referred By Olivia t Referred To Contact Diagnoses Stone Pancreatic Duct Stone Pancreatic Duct [K86.89] Procedures AL PANC LITHOTRIPSY SHOCK WAVE Pancreatic LITHOTRIPSY EXTRACORPOREAL SHOCK WAVE UNILATERAL, possible multiple trips to the operating room in 90 days, proceed as indicated Referral ID Status Reason Start Date Expiration Date Visits Re quested Visits Authorized [id number] 1 1 Encounter Details Date Type Department Care Team (Latest Contact Info) Description 02/19/2023 5:47 AM GRAB JACK WORKER - 02/19/2023 9:13 AM [facility] Hospital Encounter RST ROEI 02 4 AM ADMIT [address] [place] [phone] Luis Andrew M.D., M.P.H. [address] [place] [phone] Discharge Disposition: Home or Self Care Social History Tobacco Use Types Packs/Day Years Used Date Smoking Tobacco: Every Day Cigarettes 0.5 45 Started: [birth year]/01/1969 Smokeless Tobacco: Never Tobacco Cessation:Ready to Q uit: Not Asked; Counseling Given: Not Answered Alcohol Use Standard Drinks/Week [...] your living situation today? I have a [facility] place to live 01/01/2023 Sex and Gender Information Value Date Recorded Sex Assigned at Female 01/01/2023 9:08 AM CDT Gender Identity Female 01/01/2023 9:08 AM CDT Sexual Orientation Straight 01/01/2023 9: 08 AM CDT documented as of this encounter Last Filed Vital Signs Vital Sign Reading Time Taken Comments Blood Pressure 126/75 02/19/2023 6:31 AM GRAB JACK WORKER Pulse 70 02/19/2023 6:31 AM GRAB JACK WORKER Temperature 37 ??C (98.6 ??F) 02/19/2023 6:31 AM GRAB JACK WORKER Respiratory Rate 14 02/19/2023 6:31 AM GRAB JACK WORKER Oxygen Saturation 95% 02/19/2023 6:31 AM GRAB JACK WORKER Inhaled Oxygen Concentration - - Weight 57 kg (125 lb 10.6 oz) 02/19/2023 6:31 AM GRAB JACK WORKER Height 158.5 cm (5' 2.4) 02/19/2023 6:31 AM GRAB JACK WORKER Body Mass Index 22.69 02/19/2023 6:31 AM GRAB JACK WORKER documented in this encounter Medications at Time of Discharge Medication Sig Dispensed Refills Start Date End Date Accu-Chek Guide test strips 3 (three) times a day. for testing 0 07/25/2022 acetaminophen (TYLENOL) 500 mg tablet Take 1,000 mg by mouth every 6 (six) hours as needed. 0 01/08/2023 amLODIPine (NORVASC) 5 mg tablet Take 1 tablet (5 mg total) by mouth daily. 90 tablet 2 09/09/2022 apixaban (Eliquis DVT-PE Treatment 30 Day Starter Pack) 5 mg (74 tabs) tablet Take by mouth as directed on starter pack. 0 01/08/[address] tablet Take 325 mg by mouth every 6 (six) hours as needed for pain. 0 atorvastatin (LIPITOR) 10 mg tablet Take 10 mg by mouth. 0 cyclobenzaprine (FLEXERIL) 10 mg tablet Take 10 mg by mouth 3 (three) times a day as needed. 0 07/26/2022 donepeziL (ARICEPT) 5 mg tablet Take by mouth daily. 0 05/17/2021 DULoxetine (CYMBALTA) [address] capsule Take 30 mg by mouth every morning. 0 fentaNYL (DURAGESIC) 12 mcg/hr patch APPLY ONE PATCH TRANSDERMALLY EVERY 72 HOURS 0 01/31/2023 insulin glargine (LANTUS) 100 unit/mL injection Inject 30 Units under the skin at bedtime. 0 losartan (COZAAR) 100 mg tablet Take 1 tablet by mouth at bedtime. 0 01/24/2015 montelukast (SINGULAIR) 10 mg tablet Take 10 mg by mouth at bedtime. 0 ondansetron ODT (ZOFRAN-ODT) 4 mg disintegrating tablet DISSOLVE ONE TABLET ON THE TONGUE TWO TO THREE TIMES PER DAY NEEDED FOR NAUSEA AND VOMITING FOR 3 DAYS 0 09/17/2022 oxyBUTYnin (DITROPAN-XL) 10 mg 24 hr tablet Take 10 mg by mouth at bedtime. 0 oxyCODONE (ROXICODONE) 10 mg IR tablet TAKE ONE-HALF TABLET BY MOUTH FOUR TIMES A DAY NEEDED FOR PAIN FOR 14 DAYS 0 10/16/2022 QUEtiapine (SEROquel) 400 mg tablet Take 400 mg by mouth at bedtime. 0 07/11/2013 simvastatin (ZOCOR) 40 mg tablet Take 40 mg by mouth at bedtime. 0 SUMAtriptan (IMITREX) 100 mg tablet Take 100 mg by mouth as needed for migraine. May repeat dose once in 2 hours if migraine is unresolved. Do not exceed 200 mg in 24 hours. 0 varenicline (CHANTIX CECILE) 0.5 mg (11)- 1 mg (42) tablet Use as directed on package instructions, try to quit smoking after 1 week. 53 tablet 0 01/02/2023 documented as of this encounter Progress Notes * Luis Andrew M.D., M.P.H. - 02/19/2023 8:44 AM CST The patient arrived for pancreatic shockwave lithotripsy today. She informed us that she presented to local ED with left upper extremity pain on 05 January 2023 and was found to have an occlusive thrombus in the left axillary vein, consistent with left upper extremity DVT. She was started on heparin anticoagulation and transitioned to apixaban, which she will continue for at least three months. We discussed the increased risk of hemorrhage due to full anticoagulation, which is a relative contraindication for this procedure. Due to the elective nature of the procedure, as well as potential complications of stopping an internal hemorrhage event at the pancreas or surrounding structures, we elected to cancel the case and postpone until she is out of the three-month window of uninterrupted anticoagulation and can safely hold the medication for procedures or is off the medication altogether. We have informed her GI team about this update and will defer the decision whether to proceed with ERCP tomorrow to them. JACK WORKER * Aquilino Flores - 02/19/2023 6:45 AM CST [facility] Spiritual Care Progress Note Patient: Yary Prince Age:67 y.o. Location: [facility] Reason(s) for encounter: Spiritual support as part of the interdisciplinary care team. Spiritual Assessment Spiritual Needs and/or Concerns: None expressed at this time. Spiritual Care Plan / Recommendations: No further spiritual care requested or required at this time. Chaplains can be contacted by paging [phone] ([place]) or [phone] ([place]). JACK WORKER documented in this encounter Plan of Treatment Upcoming Encounters Date Type Department Care Team (Latest Contact Info) Description 04/26/2023 10:40 AM GRAB JACK WORKER Virtual Visit Division of Gastroenterology in [place], [place] [address] [place] [phone] Jose Roberto Patterson M.D. [address] [place] [phone] 04/29/2023 9:30 AM GRAB JACK WORKER Appointment Division of Gastroenterology in [place], [place] [address] [place] [phone] Jose Roberto Patterson M.D. [address] [place] [phone] Shane Becerra M.D. [address] [place] [phone] Discharge Disposition: Home or Self Care documented as of this encounter Procedures Procedure Name Priority Date/Time Associated Diagnosis Comments GLUCOSE POCT, B Routine 02/19/2023 6:17 AM GRAB JACK WORKER HEMOGLOBIN A1C, B Routine 02/19/2023 6:1 7 AM GRAB JACK WORKER documented in this encounter Results * Glucose, POCT (02/19/2023 6:17 AM GRAB JACK WORKER) Glucose, POCT, B 82 70 - 140 mg/dL 02/19/2023 6:38 AM GRAB JACK WORKER PCDE Site Capillary 02/19/2023 6:38 AM GRAB JACK WORKER PCDE Blood 02/19/2023 6:17 AM GRAB JACK WORKER 02/19/2023 6:38 AM GRAB JACK WORKER Unknown Provider LAB POCT ORDERABLES- MANUAL Performing Organization Address City/[facility] Co de Phone Number POC [employer] [facility] [address] [place] [address], [place] PCDE [facility] POC [address] [place] [address] * (ABNORMAL) Hemoglobin A1c (02/19/2023 6:17 AM GRAB JACK WORKER) Hemoglobin A1c, B 7.8(H) 4.0 - 5.6 % 02/19/2023 7:11 AM GRAB JACK WORKER DTL Comment: Hemoglobin A1c values greater than or equal to 6.5 percent are diagnostic for diabetes mellitus. ??Diagnosis should be confirmed by repeat testing. ??In diabetic patients, HbA1c goals should be discussed with healthcare provider. Blood (Blood, Venous) 02/19/2023 6:17 AM GRAB JACK WORKER 02/19/2023 6:33 AM GRAB JACK WORKER Luis Andrew M.D., M.P.H. LAB BLOOD ADD-ON Performing Organization Address City/[facility]/ZIP Co de Phone Number [facility] [address] [place] [address], [place] DTL [facility] [address] [place] [address] documented in this encounter Visit Diagnoses Diagnosis Stone Pancreatic Duct- Primary documented in this encounter Admitting Diagnoses Diagnosis Stone Pancreatic Duct documented in this encounter Administered Medications Inactive Administered Medications - up to 3 most recent administrations Medication Order MAR Action Action Date Dose Rate Site acetaminophen tablet 1,000 mg (TYLENOL) 1,000 mg, oral, Once, On Sat02/19/23 at 0745, For 1 dose, Pre-Op, PreOp give in preprocedural area. Given 02/19/2023 7:27 AM GRAB JACK WORKER 1,000 mg chlorhexidine 0.12 % mouthwash 15 mL (PERIDEX) 15 mL, swish & spit, Once as needed, Chlorhexidine mouthwash (Peridex) should be given if patient did not complete oral care, if completion is greater than 4 hours prior to surgery or procedure start time and they do not have the opportunity to brush their teeth now (or at this time)., Starting on Sat02/19/23 at 0725, For 1 dose, Pre-Op, Instruct patient to swish entire content of Chlorhexidine 0.12% mouthwash (PERIDEX) 15 mL cup for 30 seconds, then spit, swish & spit. If patient is at risk for aspiration, apply Chlorhexidine 0.12% mouthwash to a swab and gently swab the patient's teeth and gums. Ensure swab is not oversaturated. metoprolol tablet 12.5 mg (LOPRESSOR) 12.5 mg, oral, Once as needed, if patient did not take their last scheduled dose of beta virgen prior to arrival, Starting on Sat02/19/23 at 0725, For 1 dose, Pre-Op, Do not give if patient does not take scheduled beta blockers, if patient is receiving intravenous vasopressors or inotropes, if heart rate is less than 50 beats per minute, if systolic blood pressure is less than 90 mmHg or if diastolic blood pressure is less than 40 mmHg, or if patient has an allergy to metoprolol. sodium chloride 0.9 % injection 10 mL 10 mL, intravenous, As needed, line care, Starting on Sat02/19/23 at 0725, Pre-Op, Peripheral Intravenous Catheter and Rapid Infusion Catheter, prior to blood sampling, post blood transfusion or post blood sampling sodium chloride 0.9 % injection 3 mL 3 mL, intravenous, As needed, line care, Starting on Sat02/19/23 at 0725, Pre-Op, Prior to and following infusion and between multiple consecutive infusions: sodium chloride 0.9 % injection sodium chloride 0.9 % injection 3 mL 3 mL, intravenous, Every 12 hours scheduled, First dose on Sat02/19/23 at 0900, Pre-Op, Peripheral Intravenous Catheter and Rapid Infusion Catheter, when no infusion to maintain patency documented in this encounter Active and Recently Administered Medications Times are shown in GRAB JACK WORKER. Scheduled Medication Order 02/17/2023 02/18/2023 02/19/2023 acetaminophen tablet 1,000 mg (TYLENOL) (COMPLETED) 1,000 mg, oral, Once, On Sat02/19/23 at 0745, For 1 dose, Pre-Op, PreOp give in preprocedural area. 0727 (Given - Provid er: Nicole Murillo R.N.) sodium chloride 0.9 % injection 3 mL 3 mL, intravenous, Every 12 hours scheduled, First dose on Sat02/19/23 at 0900, Pre-Op, Peripheral Intravenous Catheter and Rapid Infusion Catheter, when no infusion to maintain patency 0900 (Due) PRN Medication Order 02/17/2023 02/18/2023 02/19/2023 chlorhexidine 0.12 % mouthwash 15 mL (PERIDEX) 15 mL, swish & spit, Once as needed, Chlorhexidine mouthwash (Peridex) should be given if patient did not complete oral care, if completion is greater than 4 hours prior to surgery or procedure start time and they do not have the opportunity to brush their teeth now (or at this time)., Starting on Sat02/19/23 at 0725, For 1 dose, Pre-Op, Instruct patient to swish entire content of Chlorhexidine 0.12% mouthwash (PERIDEX) 15 mL cup for 30 seconds, then spit, swish & spit. If patient is at risk for aspiration, apply Chlorhexidine 0.12% mouthwash to a swab and gently swab the patient's teeth and gums. Ensure swab is not oversaturated. metoprolol tablet 12.5 mg (LOPRESSOR) 12.5 mg, oral, Once as needed, if patient did not take their last scheduled dose of beta virgen prior to arrival, Starting on Sat02/19/23 at 0725, For 1 dose, Pre-Op, Do not give if patient does not take scheduled beta blockers, if patient is receiving intravenous vasopressors or inotropes, if heart rate is less than 50 beats per minute, if systolic blood pressure is less than 90 mmHg or if diastolic blood pressure is less than 40 mmHg, or if patient has an allergy to metoprolol. sodium chloride 0.9 % injection 10 mL 10 mL, intravenous, As needed, line care, Starting on Sat02/19/23 at 0725, Pre-Op, Peripheral Intravenous Catheter and Rapid Infusion Catheter, prior to blood sampling, post blood transfusion or post blood sampling sodium chloride 0.9 % injection 3 mL 3 mL, intravenous, As needed, line care, Starting on Sat02/19/23 at 0725, Pre-Op, Prior to and following infusion and between multiple consecutive infusions: sodium chloride 0.9 % injection documented in this encounter Additional Health Concerns Assessment Noted Time PHQ-9 Depression Total Score: 21 012 10:33 AM GRAB JACK WORKER documented as of this encounter Care Teams Top Stop Attacher Relationship Specialty Start Date End Date Elsewhere, Pcp PCP - General Internal Medicine 06/26/22 documented as of this encounter
--- OUTSIDE RECORDS SUMMARY | 2023-04-10 10:16 | XMS_ITS | Encounter Summary ---
Author Name Unknown Organization [facility] Address [address] [place] [address] Care Team Providers Care Senior Quality Control Technician Name Role Phone Elsewhere, Pcp Primary Care Provider Unavailabl e Reason for Referral * Outpatient (Routine) - Authorized Specialty Diagnoses / Procedures Referred By Olivia gonzalez Referred To Contact Pain Medicine Diagnoses Pancreatitis Chronic (HCC) Pain Abdominal Chronic Jose Roberto Patterson M.D. [address] [place] [phone] [facility] Referral ID Status Reason Start Date Expiration Date Visits Requested Visits Authorized [id number] Authorized Specialty Services Required 04/05/2023 04/04/2024 1 1 INTERN Encounter Details Date Type Department Care Team (Latest Contact Info) Description 04/02/2023 Clinical Communication Division of Gastroenterology in [place], [place] [address] [place] [phone] Jose Roberto Patterson M.D. [address] [place] [phone] Social History Tobacco Use Types Packs/Day Years Used Date Smoking Tobacco: Every Day Cigarettes 0.5 45 Started: [birth year]/01/1968 Smokeless Tobacco: Never Alcohol Use Standard Drinks/Week [...] your living situation today? I have a [facility] place to live 01/01/2023 Sex and Gender Information Value Date Recorded Sex Assigned at Female 01/01/2023 9:08 AM CDT Gender Identity Female 01/01/2023 9:08 AM CDT Sexual Orientation Straight 01/01/2023 9: 08 AM CDT documented as of this encounter Plan of Treatment Upcoming Encounters Date Type Department Care Team (Latest Contact Info) Description 04/26/2023 10:40 AM TECH INTERN Virtual Visit Division of Gastroenterology in [place], [place] [address] [place] [phone] Jose Roberto Patterson M.D. [address] [place] [phone] 04/29/2023 9:30 AM TECH INTERN Appointment Division of Gastroenterology in [place], [place] [address] [place] [phone] Jose Roberto Patterson M.D. [address] [place] [phone] Shane Becerra M.D. [address] [place] [phone] Discharge Disposition: Home or Self Care Scheduled Referrals Name Type Priority Associated Diagnoses Orde r Schedule Pain Medicine - General consult (clinic) Outpatient Referral Routine Pancreatitis Chronic (HCC) Pain Abdominal Chronic Expected: 04/05/2023 (Approximate), Expires: 07/04/2024 documented as of this encounter Visit Diagnoses Diagnosis Pancreatitis Chronic (HCC)- Primary Pain Abdominal Chronic documented in this encounter Additional Health Concerns Assessment Noted Time PHQ-9 Depression Total Score: 21 012 10:33 AM TECH INTERN documented as of this encounter Care Teams Senior Quality Control Technician Relationship Specialty Start Date End Date Elsewhere, Pcp PCP - General Internal Medicine 06/26/22 documented as of this encounter
--- OUTSIDE RECORDS SUMMARY | 2023-04-10 10:16 | XMS_ITS | Encounter Summary ---
Author Name Unknown Organization [facility] Address [address] [place] [address] Care Team Providers Care Motorcycle Assembler Name Role Phone Elsewhere, Pcp Primary Care Provider Unavailabl e Reason for Visit * Reason Comments Abdominal Pain Encounter Details Date Type Department Care Team (Late st Contact Info) Description 04/03/2023 1:08 AM COIL PLACER - 04/03/2023 3:18 AM COIL PLACER Emergency [facility] [address] [place] [phone] Madhav Basurto APRN, C.N.P., D.N.P. [address] [place] [address] Pancreatitis Chronic Recurrent (HCC) (Primary Dx); Abdominal Pain; Constipation Slow Transit Discharge Disposition: Home or Self Care Social [...] your living situation today? I have a [facility] place to live 01/01/2023 Sex and Gender Information Value Date Recorded Sex Assigned at Female 01/01/2023 9:08 AM CDT Gender Identity Female 01/01/2023 9:08 AM CDT Sexual Orientation Straight 01/01/2023 9: 08 AM CDT documented as of this encounter Last Filed Vital Signs Vital Sign Reading Time Taken Comments Blood Pressure 123/75 04/03/2023 3:00 AM COIL PLACER Pulse 80 04/03/2023 3:00 AM COIL PLACER Temperature 37.8 ??C (100 ??F) 04/03/2023 1:55 AM COIL PLACER Respiratory Rate 18 04/03/2023 3:00 AM COIL PLACER Oxygen Saturation 93% 04/03/2023 3:00 AM COIL PLACER Inhaled Oxygen Concentration - - Weight 57.7 kg (127 lb 3.3 oz) 04/03/2023 1:15 A M COIL PLACER Height - - Body Mass Index 22.97 02/19/2023 6:31 AM COIL PLACER documented in this encounter Discharge Instructions * Discharge Instructions* Madhav Basurto APRN, C.N.P., D.N.P. - 04/03/2023 3:02 AM COIL PLACER Follow-up with GI as scheduled at the end of the month, sooner if you have continued pain/problems.Pain medication as per your home routine. Return to the emergency department if symptoms get worse. Thank you for utilizing [facility] for your care! PLACER * Attachments The following attachments cannot be sent through Care Everywhere. * Chronic Pancreatitis ([place]) * Abdominal Pain Adult [id number] ([place]) * Constipation Adult ([place]) documented in this encounter Medications at Time [...] 0 01/02/2023 documented as of this encounter ED Notes * Brittany Yusuf, RCarlosN. - 04/03/2023 1:27 AM CST Pt presents with mid back pain that wraps around abdomen (spasming) and hip pain 12/09. Pt states she has pancreatitis and a stone and can't have it removed until the blood clot in her left arm is gone. Pt also states she fell yesterday hitting her face on the linoleum, no obvious bruising, contusions, or lacerations Brittany Yusuf R.N. 04/03/23 0130 PLACER * Madhav Basurto APRN, C.N.P., D.N.P. - 04/03/2023 1:19 AM CST Images from the original note were not included. CHIEF COMPLAINT/REASON FOR VISIT Abdominal Pain HISTORY OF PRESENT ILLNESS Patient with a previous history of diabetes, multiple sclerosis, acute and chronic pancreatitis, thromboembolism, hypertension, bipolar, , GERD, duodenitis presents to the emergency department with complaints of severe abdominal pain. Patient states this feels just like my pancreatitis. Patient states her pain started yesterday. She describes it as a vicelike gill net stringer around her abdomen mostly in the left upper quadrant with radiation of pain into her left chest as well as into her back. Patient had nausea vomiting yesterday. None today. Patient states she took 2 oxycodone at 10:00 p.m. with norelief of her symptoms. Patient is scheduled for a ERCP on 04/29/2023 with GI in [place]. Patient denies any fever, chills, sweats. Endorses nausea vomiting. Endorses abdominal pain. Denies any other constitutional symptoms. Patient also states she fell yesterday, did hit her left face. There has no bruising appreciated. Patient is anticoagulated. She denies LOC. History provided by: Patient court interpreter needed/used: no REVIEW OF SYSTEMS Constitutional: Negative for chills, diaphoresis, fatigue and fever. HENT: Negative for sinus pressure and sore throat. Respiratory: Negative for cough, chest tightness and shortness of breath. Cardiovascular: Negative for chest pain. Gastrointestinal: Positive for abdominal pain, nausea and vomiting. Negative for constipation and diarrhea. Genitourinary: Negative for dysuria, frequency and urgency. Musculoskeletal: Negative for arthralgias and myalgias. Skin: Negative for rash. Neurological: Negative for dizziness, weakness and headaches. Hematological: Negative for adenopathy. Does not bruise/bleed easily. All other systems reviewed and are negative. Allergies Reviewed in medical record Current Medications Reviewed in Medical Record. PAST HISTORY Medical Past Medical History: Diagnosis Date Diabetes Mellitus NOS Multiple Sclerosis (HCC) Pancreatitis Acute (HCC) Thromboembolism NOS (HCC) Patient Active Problem List Diagnosis Pancreatitis Chronic Recurrent (HCC) Multiple Sclerosis (HCC) Multiple Sclerosis (HCC) Hypertension Essential Primary Bipolar Disorder (HCC) Bloating Abdominal Diabetes Mellitus Type 2 (HCC) Diabetes Mellitus Type 2 With Diabetic Neuropathy (HCC) Duodenitis Dysphagia Gastroesophageal Reflux Disease NOS Hematuria Hyperlipidemia Migraine Headache Rhinitis Seasonal Unspecified Abnormalities Of Gait And Mobility Pancreatitis Acute (HCC) Weakness General Pain Abdominal Chronic Stone Pancreatic Duct Surgical Past Surgical History: Procedure Laterality Date CHOLECYSTECTOMY N/A 1986 Cholecystectomy;.. HYSTERECTOMY OTHER CONVERTED SHX (SEE COMMENT) N/A 06/13/2004 >Colonoscopy OTHER CONVERTED SHX (SEE COMMENT) N/A 04/12/2011 >ERCP, biliary and pancreatic sphincterotomies, prophylactic pancreatic stent placement. OTHER CONVERTED SHX (SEE COMMENT) N/A 02/15/2011 >EGD with endoscopic ultrasound. OTHER CONVERTED SHX (SEE COMMENT) N/A 06/13/2004 >Esophagogastroduodenoscopy REDUCTION MAMMOPLASTY N/A 1984 Breast reduction REPAIR OF RECTOCELE N/A 2003 Repair of rectocele TUBAL LIGATION Family Reviewed in Medical Record Social History Social History Tobacco Use Smoking status: Former Packs/day: 0.50 Years: 45.00 Additional pack years: 0.00 Total pack years: 22.50 Types: Cigarettes Start date: 04/01/1968 Quit date: 03/31/2023 Smokeless tobacco: Never Substance Use Topics Alcohol use: No Social History Substance and Sexual Activity Drug Use Yes Frequency: 21.0 times per week Types: Marijuana Comment: 3 x day about OBJECTIVE Initial Vital Signs / Weights Initial Vitals Temperature 04/03/23 0116 37.7 ??C Pulse Rate 04/03/23 0115 82 Heart Rate -- Resp Rate 04/03/23 0116 24 Blood Pressure 04/03/23 0116 (!) 169/136 SpO2 04/03/23 0115 94 % Pain Score 04/03/23 0116 9 Wt Readings from Last 3 Encounters: 04/03/23 57.7 kg 02/19/23 57 kg 01/05/23 55.6 kg PHYSICAL EXAMINATION Constitutional: Nursing note and vitals reviewed. No distress. HENT: Mouth/Throat: Oropharynx is clear and moist. Mucous membranes are moist. No tonsillar exudate. Eyes: Conjunctivae and EOM are normal. Pupils are equal, round, and reactive to light. Neck: Neck supple. Cardiovascular: Normal rate, regular rhythm, S1 normal, S2 normal and normal heart sounds. Pulses are strong and palpable. No murmur heard.Capillary refill: takes less than 3 seconds Pulmonary/Chest: Effort normal and breath sounds normal. There is normal air entry. No respiratory distress. Abdominal: Soft. Bowel sounds are decreased. There is abdominal tenderness. There is rebound. Thereis no guarding. Musculoskeletal: General: Normal range of motion. Cervical back: Normal range of motion and neck supple. Lymphadenopathy: She has no cervical adenopathy. Neurological: Alert and oriented to person, place, and time. No cranial nerve deficit. Skin: Skin is warm, dry and intact. Psychiatric: She has a normal mood and affect. DIAGNOSTICS Labs Labs Reviewed CBC WITH DIFFERENTIAL, B - Abnormal Result Value Hemoglobin 12.0 Hematocrit 35.4 (*) Erythrocytes 3.75 (*) MCV 94.4 RBC Distrib Width 12.2 Platelet Count 212 Leukocytes 4.7 Neutrophils 1.91 Lymphocytes 1.81 Monocytes 0.85 (*) Eosinophils 0.15 Basophils <0.04 COMPREHENSIVE METABOLIC PANEL, S/P - Abnormal Potassium, P 3.9 Sodium, P 134 (*) Chloride, P 99 Bicarbonate, P 26 Anion Gap, P 9 BUN (Blood Urea Nitrogen), P 13 Creatinine 0.89 Estimated GFR (eGFR) 71 Calcium, Total, P 9.0 Glucose, P 188 (*) Protein, Total, P 6.2 (*) Albumin, P 3.8 Aspartate Aminotransferase (AST), P 27 Alkaline Phosphatase, P 91 Alanine Aminotransferase (ALT), P 30 Bilirubin, Total, P <0.2 LIPASE, S/P - Abnormal Lipase, P 9 (*) C-REACTIVE PROTEIN (CRP), S/P C-Reactive Protein (CRP), P 3.5 LACTATE, B/P Lactate, P 1.[address] Abdomen Pelvis with IV Contrast Final Result 1. Sequela of chronic pancreatitis without imaging findings of acute pancreatitis. 2. Large colonic stool burden could indicate constipation. CT Head without IV Contrast Final Result 1. Negative for acute intracranial abnormality. 2. Stable patchy white matter hypoattenuation compatible with known demyelinating disease. Procedures None See separate procedure note. ED COURSE ED Course as of 04/03/23311Apr 03, 2023 011 I performed my initial evaluation of the patient. We discussed Emergency Department course including testing, treatment, and potential disposition based on findings. 0151 Lab hemolyzed. They will come over to redraw the patient. 0157 Appears much more comfortable. 0307 Labs all unremarkable. A CT head without intracranial hemorrhage or acute findings. CT of the abdomen shows chronic pancreatitis and constipation. 0307 Patient states she still having some pain she is wondering if she can get another dose of Dilaudid prior to discharge. I think this is reasonable. I discussed the plan for discharge with the patient, and patient/family is agreeable. I discussed with patient the utility, limitations, and findings of the exam/interventions/studies done during this visit as well as the list of differential diagnosis. Patient understands provisional nature of this diagnosis and need for follow up. We discussedthe plan of care, including supportive cares. We also discussed symptoms to monitor and symptoms that should prompt them to return for re-evaluation including new or worsening symptoms. All questionsand concerns addressed. Patient to be discharged by RN. Final Diagnoses: as of 04/03/23 0312 Pancreatitis Chronic Recurrent (HCC) Abdominal Pain Constipation Slow Transit INTERVENTIONS Medications ondansetron (PF) injection 4 mg (ZOFRAN) (4 mg intravenous Given 04/03/23 0148) HYDROmorphone injection 1 mg (DILAUDID) (1 mg intravenous Given 04/03/23 0147) sodium chloride 0.9 % flush 72 mL (72 mL intravenous Given 04/03/23 0230) sodium chloride 0.9 % injection 10 mL (10 mL intravenous Given 04/03/23 0230) iohexoL 300 mg iodine/mL solution 87 mL (OMNIPAQUE) (87 mL intravenous Given 04/03/23 0229) NaCl 0.9 % bolus 1,000 mL (0 mL intravenous Stopped 04/03/23 0309) HYDROmorphone injection 0.5 mg (DILAUDID) (0.5 mg intravenous Given 04/03/23 0307) MEDICAL DECISION MAKING Assessment and Plan Patient presents to the emergency department with complaints of abdominal pain. Patient does have ahistory of acute and chronic pancreatitis. She is scheduled for an ERCP on 04/29/2023 to remove somepancreatic ductal stones. She follows in [place]. Patient denies any fever, chills, sweats. Does endorse abdominal pain with nausea vomiting yesterday. Patient states she took 2 oxycodone at 10:0 0 p.m. tonight with no relief of her symptoms. She presents to the emergency department for furtherevaluation and pain management. The patient presents to the ED for evaluation of abdominal pain. The patient arrives still in active pain. At present, given the patient's history and my examination, my suspicion is that the abdominal pain is due to acute on chronic pancreatitis. While less likely, other possible etiologies in thedifferential includes appendicitis, cholecystitis, pancreatitis, diverticulitis, bowel obstruction/perforation, mesenteric ischemia, kidney stone, AAA. That said, given the history and exam, these are significantly less likely. I have obtained additional history from the medical record and clinical documentation nurse. Evaluation and management will include: CBC with diff, CMP, Lipase, Lactate, CRP, and PIV placement. Dilaudid 1 mg given for pain and Zofran given for nausea. DISPOSITION: Pending patient's workup and reevaluation. Patient was given red flag signs & symptoms that would require immediate followup or return to the ED. Workup in the emergency department revealed probably a chronic recurrent pancreatitis. Labs are reassuring in the emergency department with a negative lactate, lipase is unremarkable, CRP is unremarkable, CBC and CMP also unremarkable. A CT scan of the abdomen shows sequela of chronic pancreatitis but no free fluid to suggest an acute pancreatitis. Her CT scan of her head done to rule out intracranial hemorrhage secondary to the fall was also negative for any acute traumatic intracranial hemorrhage. Patient be given a small dose of Dilaudid prior to departure, she will continue her normal pain medication at home. Follow-up with GI as scheduled. Patient or caregiver was given red flag signs & symptoms that would require immediate followup or return to the ED. findings are consistent with chronic pancreatitis, constipation, abdominal pain.. DIFFERENTIAL DIAGNOSES As above. PROBLEMS ADDRESSED THIS VISIT As above. Care is significantly affected by the following Social Determinants of Health: none. I reviewed the following external records: primary care records, prior outpatient labs, prior outpatient radiology tests and inpatient records. The following tests were considered but ultimately not performed: none. Escalation of care, including admission/observation, considered: none. DIAGNOSIS Final diagnoses: [K86.1] Pancreatitis Chronic Recurrent (HCC) [R10.9] Abdominal Pain [K59.01] Constipation Slow Transit DISPOSITION Home or Self Care DISCHARGE/TRANSFER VITAL SIGNS Vitals: 04/03/23 0230 BP: 142/79 Pulse: 87 Resp: 20 Temp: SpO2: 91% ED DISCHARGE MEDS ED Prescriptions None Patient states she is out of her oxycodone, I will refill 6 tablets of her oxycodone through [facility]. FOLLOW UP Contact Information for Follow-ups Elsewhere, Pcp Specialty: Internal Medicine, Fire Equipment Inspector, Pediatrics, Women's Health, Family Medicine Relationship: PCP - General Next Steps: Follow up in 1 week(s) Madhav Basurto DNP, HTML DEVELOPER, VASCULAR SURGEON-C, AGACNP-BC, ENP-C Emergency Medicine Madhav Basurto APRN, C.N.P., D.N.P. 04/03/23 0308 Madhav Basurto APRN, C.N.P., D.N.P. 04/03/23 0312 PLACER documented in this encounter Plan of Treatment Upcoming Encounters Date Type Department Care Team (Latest Contact Info) Description 04/26/2023 10:40 AM COIL PLACER Virtual Visit Division of Gastroenterology in [address] [phone] Jose Roberto Patterson M.D. [address] [place] [phone] 04/29/2023 9:30 AM COIL PLACER Appointment Division of Gastroenterology in [place], [place] [address] [place] [phone] Jose Roberto Patterson M.D. [address] [place] [phone] Shane Becerra M.D. [address] [place] [phone] Discharge Disposition: Home or Self Care documented as of this encounter Procedures Procedure Name Priority Date/Time Associated Diagnosis Comments CT ABDOMEN PELVIS WITH IV CONTRAST RAD - Semiurgent (Fast; most ED patients; some inpatients) 04/03/2023 2:[address] HEAD WITHOUT IV CONTRAST RAD - Semiurgent (Fast; most ED patients; some inpatients) 04/03/2023 2:30 AM COIL PLACER CBC WITH DIFFERENTIAL, B STAT 04/03/2023 1:41 AM COIL PLACER C-REACTIVE PROTEIN (CRP), S/P STAT 04/03/2023 1:41 AM COIL PLACER LIPASE, S/P STAT 04/03/2023 1:41 AM COIL PLACER LACTATE, B/P STAT 04/03/2023 1:41 AM COIL PLACER COMPREHENSIVE METABOLIC PANEL, S/P STAT 04/03/2023 1:41 AM COIL PLACER documented in this encounter Results * CT Abdomen Pelvis with IV Contrast (04/03/2023 2:34 AM COIL PLACER) Anatomical Region Laterality Modality Abdomen, Pelvis, Abdominal R ST LOS, Abdominal ARZ LOS, Abdominal FLA LOS N/A Computed Tomography 04/03/2023 2:24 AM COIL PLACER Impressions 04/03/2023 2:53 AM COIL PLACER 1. Sequela of chronic pancreatitis without imaging findings of acute pancreatitis. 2. Large colonic stool burden could indicate constipation. Narrative 04/03/2023 2:53 AM COIL PLACER EXAM: CT ABDOMEN PELVIS WITH IV CONTRAST [...] Head without IV Contrast (04/03/2023 2:30 AM COIL PLACER) Anatomical Region Laterality Modality Head, Neuroradiology RST LOS , Neuroradiology ARZ LOS, Neuroradiology FLA LOS N/A Computed Tomography 04/03/2023 2:18 AM COIL PLACER Impressions 04/03/2023 2:37 AM COIL PLACER 1. ??Negative for acute intracranial abnormality. 2. ??Stable patchy white matter hypoattenuation compatible with known demyelinating disease. Narrative 04/03/2023 2:37 AM COIL PLACER EXAM: CT HEAD WITHOUT IV CONTRAST COMPARISON: [...] C.N.P., D.N.P. IMG CT PROCEDURES * (ABNORMAL) Lipase (04/03/2023 1:41 AM COIL PLACER) Lipase, P 9(L) 13 - 60 U/L 04/03/2023 2: 24 AM COIL PLACER CNFL Blood (Blood, Venous) 04/03/2023 1:41 AM COIL PLACER 04/03/2023 2:03 AM COIL PLACER Mona Tan APRN.N.P., D.N.P. LAB BLOOD ADD-ON [facility] [address] [place] [address], [address] [address] * Lactate (04/03/2023 1:41 AM COIL PLACER) Lactate, P 1.0 0.5 - 2.2 mmol/L 04/03/2023 2:22 AM COIL PLACER CNFL Blood (Blood, Venous) 04/03/2023 1:41 AM COIL PLACER 04/03/2023 2:03 AM COIL PLACER Mona Tan APRN.N.P., D.N.P. LAB BLOOD NON ADD-ON [address] [address], [address] [address] * CRP (C-Reactive Protein) (04/03/2023 1:41 AM COIL PLACER) C-Reactive Protein (CRP), P 3.5 <5.0 mg/L 04/03/2023 2:24 AM COIL PLACER CNFL Blood (Blood, Venous) 04/03/2023 1:41 AM COIL PLACER 04/03/2023 2:03 AM COIL PLACER Mona Tan APRN.N.P., D.N.P. LAB BLOOD ADD-ON [facility] [address] [place] [phone], [facility] CNFL [facility] in [address] [address] * (ABNORMAL) Comprehensive Metabolic Panel (04/03/2023 1:41 AM COIL PLACER) Potassium, P 3.9 3.6 - 5.2 mmol/L 04/03/2023 2:24 AM COIL PLACER CNFL Sodium, P 134(L) 135 - 145 mmol/L 04/03/2023 2:24 AM COIL PLACER CNFL Chloride, P 99 98 - 107 mmol/L 04/03/2023 2:24 AM COIL PLACER CNFL Bicarbonate, P 26 22 - 29 mmol/L 04/03/2023 2:24 AM COIL PLACER CNFL Anion Gap, P 9 7 - 15 04/03/2023 2:24 AM COIL PLACER CNFL BUN (Blood Urea Nitrogen), P 13 6 - 21 mg/dL 04/03/2023 2:24 AM COIL PLACER CNFL Creatinine 0.89 0.59 - 1.04 mg/dL 04/03/2023 2:24 AM COIL PLACER CNFL Estimated GFR (eGFR) 71 >=60 mL/min/BS A 04/03/2023 2:24 AM COIL PLACER CNFL Comment: Estimated GFR calculated using the 2020 CKD_EPI creatinine equation. Calcium, Total, P 9.0 8.8 - 10.2 mg/dL 04/03/2023 2:24 AM COIL PLACER CNFL Glucose, P 188(H) 70 - 140 mg/dL 04/03/2023 2:24 AM COIL PLACER CNFL Protein, Total, P 6.2(L) 6.3 - 7.9 g/dL 04/03/2023 2:24 AM COIL PLACER CNFL Albumin, P 3.8 3.5 - 5.0 g/dL 04/03/2023 2:24 AM COIL PLACER CNFL Aspartate Aminotransferase (AST), P 27 8 - 43 U/L 04/03/2023 2:24 AM COIL PLACER CNFL Alkaline Phosphatase, P 91 35 - 104 U/L 04/03/2023 2:24 AM COIL PLACER CNFL Alanine Aminotransferase (ALT), P 30 7 - 45 U/L 04/03/2023 2:24 AM COIL PLACER CNFL Bilirubin, Total, P <0.2 0.0 - 1.2 mg/dL 04/03/2023 2:24 AM COIL PLACER CNFL Blood (Blood, Venous) 04/03/2023 1:41 AM COIL PLACER 04/03/2023 2:03 AM COIL PLACER Mona Tan APRN.N.P., D.N.P. LAB BLOOD ADD-ON Performing Organization Address City/State/[facility] Co de Phone Number [facility] [address] [place] [phone], [facility] CNFL [facility] [place] [address] * (ABNORMAL) CBC with Differential, Blood (04/03/2023 1:41 AM COIL PLACER) Hemoglobin 12.0 11.6 - 15.0 g/dL 04/03/2023 2:28 AM COIL PLACER CNFL Hematocrit 35.4(L) 35.5 - 44.9 % 04/03/2023 2:28 AM COIL PLACER CNFL Erythrocytes 3.75(L) 3.92 - 5.13 x10(12)/L 04/03/2023 2:28 AM COIL PLACER CNFL MCV 94.4 78.2 - 97.9 fL 04/03/2023 2:28 AM COIL PLACER CNFL RBC Distrib Width 12.2 12.2 - 16.1 % 04/03/2023 2:28 AM COIL PLACER CNFL Platelet Count 212 157 - 371 x10(9)/L 04/03/2023 2:28 AM COIL PLACER CNFL Leukocytes 4.7 3.4 - 9.6 x10(9)/L 04/03/2023 2:28 AM COIL PLACER CNFL Neutrophils 1.91 1.56 - 6.45 x10(9)/L 04/03/2023 2:28 AM COIL PLACER CNFL Lymphocytes 1.81 0.95 - 3.07 x10(9)/L 04/03/2023 2:28 AM COIL PLACER CNFL Monocytes 0.85(H) 0.26 - 0.81 x10(9)/L 04/03/2023 2:28 AM COIL PLACER CNFL Eosinophils 0.15 0.03 - 0.48 x10(9)/L 04/03/2023 2:28 AM COIL PLACER CNFL Basophils <0.04 0.01 - 0.08 x10(9)/L 04/03/2023 2:28 AM COIL PLACER CNFL Blood (Blood, Venous) 04/03/2023 1:41 AM COIL PLACER 04/03/2023 2:03 AM COIL PLACER Madhav Basurto APRN, C.N.P., D.N.P. LAB BLOOD ADD-ON [facility] [address] [place] [id number], [facility] CNFL [facility] in [address] [phone] documented in this encounter Visit Diagnoses Diagnosis Pancreatitis Chronic Recurrent (HCC)- Primary Abdominal Pain Constipation Slow Transit documented in this encounter Administered Medications Inactive Administered Medications - up to 3 most recent administrations Medication Order MAR Action Action Date Dose Rate Site HYDROmorphone injection 0.5 mg (DILAUDID) 0.5 mg, intravenous, Once, On Sat04/03/23 at 0301, For 1 dose Given 04/03/2023 3:07 AM COIL PLACER 0.5 mg HYDROmorphone injection 1 mg (DILAUDID) 1 mg, intravenous, Once, On Sat04/03/23 at 0130, For 1 dose Given 04/03/2023 1:47 AM COIL PLACER 1 mg iohexoL 300 mg iodine/mL solution 87 mL (OMNIPAQUE) 87 mL, intravenous, Once in imaging, contrast, Starting on Sat04/03/23 at 0146, For 1 dose Given 04/03/2023 2:29 AM COIL PLACER 87 mL NaCl 0.9 % bolus 1,000 mL 1,000 mL, intravenous, at 1,000 mL/hr, Administer over 1 Hours, Once, On Sat04/03/23 at 0159, For 1 dose New Bag 04/03/2023 2:27 AM COIL PLACER 1,000 mL 1000 mL/hr ondansetron (PF) injection 4 mg (ZOFRAN) 4 mg, intravenous, Once, On Sat04/03/23 at 0130, For 1 dose Given 04/03/2023 1:48 AM COIL PLACER 4 mg sodium chloride 0.9 % flush 72 mL 72 mL, intravenous, Once, On Sat04/03/23 at 0151, For 1 dose Given 04/03/2023 2:30 AM COIL PLACER 72 mL sodium chloride 0.9 % injection 10 mL 10 mL, intravenous, Once, On Sat04/03/23 at 0151, For 1 dose Given 04/03/2023 2:30 AM COIL PLACER 10 mL documented in this encounter Active and Recently Administered Medications Times are shown in COIL PLACER. Scheduled Medication Order 04/01/2023 04/02/2023 04/03/2023 HYDROmorphone injection 0.5 mg (DILAUDID) (COMPLETED) 0.5 mg, intravenous, Once, On Sat04/03/23 at 0301, For 1 dose 030 (Given - Provid er: Steve Yusuf R.N.) HYDROmorphone injection 1 mg (DILAUDID) (COMPLETED) 1 mg, intravenous, Once, On Sat04/03/23 at 0130, For 1 dose 0147 (Given - Provid er: Brittany Yusuf R.N.) NaCl 0.9 % bolus 1,000 mL (COMPLETED) 1,000 mL, intravenous, at 1,000 mL/hr, Administer over 1 Hours, Once, On Sat04/03/23 at 0159, For 1 dose 0227 (New Bag - Prov ider: Brittany Yusuf R.N.)0309 (Stopped - Provider: Steve Yusuf R.N.) ondansetron (PF) injection 4 mg (ZOFRAN) (COMPLETED) 4 mg, intravenous, Once, On Sat04/03/23 at 0130, For 1 dose 0148 (Given - Provid er: Brittany Yusuf R.N.) sodium chloride 0.9 % flush 72 mL (COMPLETED) 72 mL, intravenous, Once, On Sat04/03/23 at 0151, For 1 dose 0230 (Given - Provid er: Dany Mora(R)(CT), R.T.(R)) sodium chloride 0.9 % injection 10 mL (COMPLETED) 10 mL, intravenous, Once, On Sat04/03/23 at 0151, For 1 dose 0230 (Given - Provid er: Dany Mora(Shavon)(CT), RGianna(R)) PRN Medication Order 04/01/2023 04/02/2023 04/03/2023 iohexoL 300 mg iodine/mL solution 87 mL (OMNIPAQUE) (COMPLETED) 87 mL, intravenous, Once in imaging, contrast, Starting on Sat04/03/23 at 0146, For 1 dose 0229 (Given - Provid er: Dany Mora(Shavon)(CT), Dany(R)) documented in this encounter Additional Health Concerns Assessment Noted Time PHQ-9 Depression Total Score: 21 012 10:33 AM COIL PLACER documented as of this encounter Care Teams Motorcycle Assembler Relationship Specialty Start Date End Date Elsewhere, Pcp PCP - General Internal Medicine 06/26/22 documented as of this encounter
--- OUTSIDE RECORDS SUMMARY | 2023-04-10 10:16 | XMS_ITS | Encounter Summary ---
Author Name Unknown Organization [facility] Address [address] [place] [address] Care Team Providers Care Sole Rounding Machine Operator Name Role Phone Elsewhere, Pcp Primary Care Provider Unavailabl e Reason for Visit * Auth/Cert (Routine) Specialty Diagnoses / Procedures Referred By Olivia t Referred To Contact Diagnoses Stone Pancreatic Duct Stone Pancreatic Duct [K86.89] Procedures WA PANC LITHOTRIPSY SHOCK WAVE Pancreatic LITHOTRIPSY EXTRACORPOREAL SHOCK WAVE UNILATERAL, possible multiple trips to the operating room in 90 days, proceed as indicated Referral ID Status Reason Start Date Expiration Date Visits Re quested Visits Authorized [id number] 1 1 Encounter Details Date Type Department Care Team (Late st Contact Info) Description 02/19/2023 5:10 AM VEHICLE OPERATOR - 02/19/2023 6:50 AM VEHICLE OPERATOR Surgery [facility] [address] [place] [address] Luis Andrew M.D., M.P.H. [address] [place] [address] Not Performed Pancreatic LITHOTRIPSY EXTRACORPOREAL SHOCK WAVE UNILATERAL, possible multiple trips to operating room in 90 days, proceed as indicated. Social History Tobacco Use Types Packs/Day Years [...] your living situation today? I have a [facility] place to live 01/01/2023 Sex and Gender Information Value Date Recorded Sex Assigned at Female 01/01/2023 9:08 AM CDT Gender Identity Female 01/01/2023 9:08 AM CDT Sexual Orientation Straight 01/01/2023 9: 08 AM CDT documented as of this encounter Last Filed Vital Signs Vital Sign Reading Time Taken Comments Blood Pressure 126/75 02/19/2023 6:31 AM VEHICLE OPERATOR Pulse 70 02/19/2023 6:31 AM VEHICLE OPERATOR Temperature 37 ??C (98.6 ??F) 02/19/2023 6:31 AM VEHICLE OPERATOR Respiratory Rate 14 02/19/2023 6:31 AM VEHICLE OPERATOR Oxygen Saturation 95% 02/19/2023 6:31 AM VEHICLE OPERATOR Inhaled Oxygen Concentration - - Weight 57 kg (125 lb 10.6 oz) 02/19/2023 6:31 AM VEHICLE OPERATOR Height 158.5 cm (5' 2.4) 02/19/2023 6:31 AM VEHICLE OPERATOR Body Mass Index 22.69 02/19/2023 6:31 AM VEHICLE OPERATOR documented in this encounter Medications at Time [...] to proceed with ERCP tomorrow to them. CLE OPERATOR * Aquilino Flores - 02/19/2023 6:45 AM CST [facility] Spiritual Care Progress Note Patient: Yary Prince Age:67 y.o. Location: [facility] Reason(s) for encounter: Spiritual support as part of the interdisciplinary care team. Spiritual Assessment Spiritual Needs and/or Concerns: None expressed at this time. Spiritual Care Plan / Recommendations: No further spiritual care requested or required at this time. Chaplains can be contacted by paging [phone] ([place]) or [phone] ([place]). CLE OPERATOR documented in this encounter Plan of Treatment Upcoming Encounters Date Type Department Care Team (Latest Contact Info) Description 04/26/2023 10:40 AM VEHICLE OPERATOR Virtual Visit Division of Gastroenterology in [place], [place] [address] [place] [address] Jose Roberto Patterson M.D. [address] [place] [phone] 04/29/2023 9:30 AM VEHICLE OPERATOR Appointment Division of Gastroenterology in [place], [place] [address] [place] [address] Jose Roberto Patterson M.D. [address] [place] [phone] Shane Becerra M.D. [address] [place] [phone] Discharge Disposition: Home or Self Care documented as of this encounter Procedures Procedure Name Priority Date/Time Associated Diagnosis Comments GLUCOSE POCT, B Routine 02/19/2023 6:17 AM VEHICLE OPERATOR HEMOGLOBIN A1C, B Routine 02/19/2023 6:1 7 AM VEHICLE OPERATOR documented in this encounter Results * Glucose, POCT (02/19/2023 6:17 AM VEHICLE OPERATOR) Glucose, POCT, B 82 70 - 140 mg/dL 02/19/2023 6:38 AM VEHICLE OPERATOR PCDE Site Capillary 02/19/2023 6:38 AM VEHICLE OPERATOR PCDE Blood 02/19/2023 6:17 AM VEHICLE OPERATOR 02/19/2023 6:38 AM VEHICLE OPERATOR Unknown Provider LAB POCT ORDERABLES- MANUAL Performing Organization Address [facility] Co de Phone Number POC [employer] [facility] [address] [place] [address], [facility] PCDE [facility] [address] [place] [address] * (ABNORMAL) Hemoglobin A1c (02/19/2023 6:17 AM VEHICLE OPERATOR) Hemoglobin A1c, B 7.8(H) 4.0 - 5.6 % 02/19/2023 7:11 AM VEHICLE OPERATOR DTL Comment: Hemoglobin A1c values greater than or equal to 6.5 percent are diagnostic for diabetes mellitus. ??Diagnosis should be confirmed by repeat testing. ??In diabetic patients, HbA1c goals should be discussed with healthcare provider. Blood (Blood, Venous) 02/19/2023 6:17 AM VEHICLE OPERATOR 02/19/2023 6:33 AM VEHICLE OPERATOR Luis Andrew M.D., M.P.H. LAB BLOOD ADD-ON Performing Organization Address City/[facility]/ZIP Co de Phone Number [facility] [address] [place] [address], [facility] DTL [facility] [address] [place] [address] documented in this encounter Visit Diagnoses Diagnosis Stone Pancreatic Duct- Primary Stone Pancreatic Duct documented in this encounter Admitting Diagnoses Diagnosis Stone Pancreatic Duct documented in this encounter Administered Medications Inactive Administered Medications - up to 3 most recent administrations Medication Order MAR Action Action Date Dose Rate Site acetaminophen tablet 1,000 mg (TYLENOL) 1,000 mg, oral, Once, On Sat02/19/23 at 0745, For 1 dose, Pre-Op, PreOp give in preprocedural area. Given 02/19/2023 7:27 AM VEHICLE OPERATOR 1,000 mg chlorhexidine 0.12 % mouthwash 15 [...] Recently Administered Medications Times are shown in VEHICLE OPERATOR. Scheduled Medication Order 02/17/2023 02/18/2023 02/19/2023 acetaminophen [...] Depression Total Score: 21 012 10:33 AM VEHICLE OPERATOR documented as of this encounter Care Teams Sole Rounding Machine Operator Relationship Specialty Start Date End Date Elsewhere, Pcp PCP - General Internal Medicine 06/26/22 documented as of this encounter
--- OUTSIDE RECORDS SUMMARY | 2023-04-10 10:16 | XMS_ITS ---
Author Name Unknown Organization [facility] Address [address] [place] [address] Care Team Providers Care Milk Of Lime Slaker Name Role Phone Unavailable Unavailable Unavailable Surgery Details Not on file Complications Check Surgery Details section. Procedure Estimated Blood Loss Check Surgery Details section. Procedure Findings Check Surgery Details section. Procedure Specimens Taken Check Surgery Details section.
--- OUTSIDE RECORDS SUMMARY | 2023-04-10 10:16 | XMS_ITS | Encounter Summary ---
Author Name Unknown Organization [facility] Address [address] [place] [address] Care Team Providers Care Principal Web Developer Name Role Phone Elsewhere, Pcp Primary Care Provider Unavailabl e Encounter Details Date Type Department Care Team (Latest Contact Info) Description 02/19/2023 Clinical Communication Division of Gastroenterology in [place], [place] [address] [place] [address] Jose Roberto Patterson M.D. [address] [place] [phone] Social History Tobacco Use Types Packs/Day Years [...] your living situation today? I have a [facility] place to live 01/01/2023 Sex and Gender Information Value Date Recorded Sex Assigned at Female 01/01/2023 9:08 AM CDT Gender Identity Female 01/01/2023 9:08 AM CDT Sexual Orientation Straight 01/01/2023 9: 08 AM CDT documented as of this encounter Miscellaneous Notes * Telephone Encounter - Jose Roberto Patterson M.D. - 02/19/2023 8:57 AM FINANCIAL AID COUNSELOR Patient was unable to undergo ESWL today due to a recently diagnosed DVT and need for continuous anticoagulation for 3 months. Based on this new information, would recommend cancelling ERCP scheduled for tomorrow. Please schedule an appointment with pain management (order placed) and return visit with myself AFTER pain management appointment. We will reschedule ESWL and ERCP once I have seen her in clinic NCIAL AID COUNSELOR documented in this encounter Plan of Treatment Upcoming Encounters Date Type Department Care Team (Latest Contact Info) Description 04/26/2023 10:40 AM FINANCIAL AID COUNSELOR Virtual Visit Division of Gastroenterology in [place], [place] [address] [place] [phone] Jose Roberto Patterson M.D. [address] [place] [phone] 04/29/2023 9:30 AM FINANCIAL AID COUNSELOR Appointment Division of Gastroenterology in [place], [place] [address] [place] [phone] Jose Roberto Patterson M.D. [address] [place] [phone] Shane Becerra M.D. [address] [place] [phone] Discharge Disposition: Home or Self Care documented as of this encounter Visit Diagnoses Diagnosis Pancreatitis Chronic (HCC)- Primary documented in this encounter Additional Health Concerns Assessment Noted Time PHQ-9 Depression Total Score: 21 05/31/ 012 10:33 AM FINANCIAL AID COUNSELOR documented as of this encounter Care Teams Principal Web Developer Relationship Specialty Start Date End Date Elsewhere, Pcp PCP - General Internal Medicine 06/26/22 documented as of this encounter
--- OUTSIDE RECORDS SUMMARY | 2023-04-10 10:16 | XMS_ITS | Referral Summary ---
Author Name Unknown Organization [facility] Address [address] [place] [address] Care Team Providers Care Supervisor Shipping Name Role Phone Elsewhere, Pcp Primary Care Provider Unavailabl e Source Comments Patient records contain information from all sites at [facility]. For routine questions regarding patient records, call [phone] during business hours, M-F 8:00 AM - 5:00 PM Central Time. Record requests for emergency care only can be directed to [phone] at any time.[facility] Encounters Date Type Department Care Team Description 04/03/2023 1:08 AM SHEARING MACHINE OPERATOR - 04/03/2023 3:18 AM [facility] [address] [place] [phone] Madhav Basurto APRN, C.N.P., D.N.P. Pancreatitis Chronic Recurrent (HCC) (Primary Dx); Abdominal Pain; Constipation Slow Transit Discharge Disposition: Home or Self Care 04/02/2023 Clinical Communication Division of Gastroenterology in [place], [place] [address] [place] [phone] Jose Roberto Hays M.D. 02/19/2023 Clinical Communication Division of Gastroenterology in [place], [place] [address] [place] [phone] Jose Roberto Hays M.D. 02/19/2023 5:10 AM SHEARING MACHINE OPERATOR - 02/19/2023 6:50 AM SHEARING MACHINE OPERATOR Surgery [facility] [address] [place] [address] Luis Andrew M.D., M.P.H. Not Performed Pancreatic LITHOTRIPSY EXTRACORPOREAL SHOCK WAVE UNILATERAL, possible multiple trips to operating room in 90 days, proceed as indicated. 02/19/2023 5:47 AM SHEARING MACHINE OPERATOR - 02/19/2023 9:13 AM SHEARING MACHINE OPERATOR Hospital Encounter [facility] 02 4 AM ADMIT [address] [place] [address] Luis Andrew M.D., M.P.H. Discharge Disposition: Home or Self Care 02/11/2023 Clinical Communication Department of Nicotine Dependence, [facility], in [place], [place] [address] [place] [address] Froy Can M.ACarlos Nicotine Dependence from Last 3 Months Allergies Active Allergy Reactions Criticality Noted Date [...] Mobility 0 09/06/2005 09/06/2022 Multiple Sclerosis 11/06/2002 Immunizations Name Administration Dates Next Due HZV (ZOSTAVAX) 05/22/2016 Influenza (IM) Preservative Free 01/14/2013,12/31 Influenza TIV (IM) 02/17/2016, 5,02/11/2014,2011,12/07/2010,01/09/2010,04/26/2005,1 ,03/13/2000 Influenza, Seasonal, Injectable 02/17/20 16,01/10/2015,02/11/2014,2011,12/07/2010,04/26/2005,01/26/2004 Influenza, Unspecified 02/11/2014,2012,01/10/2012,2010,01/13/2010,01/22/2008 PCV13 09/21/2019,08/12/2015 PPSV23 06/29/2014,04/01/1998 Td (Adult), adsorbed 08/21/2004 Td Preservative Free (TENIVA C, DECAVAC) 01/30/2006,08/21/2004 Tdap 07/24/2022,08/21/2004 Social History Tobacco Use Types Packs/Day Years [...] your living situation today? I have a [facility] place to live 01/01/2023 Sex and Gender Information Value Date Recorded Sex Assigned at Female 01/01/2023 9:08 AM CDT Gender Identity Female 01/01/2023 9:08 AM CDT Sexual Orientation Straight 01/01/2023 9: 08 AM CDT Last Filed Vital Signs Vital Sign Reading Time Taken Comments Blood Pressure 123/75 04/03/2023 3:00 AM SHEARING MACHINE OPERATOR Pulse 80 04/03/2023 3:00 AM SHEARING MACHINE OPERATOR Temperature 37.8 ??C (100 ??F) 04/03/2023 1:55 AM SHEARING MACHINE OPERATOR Respiratory Rate 18 04/03/2023 3:00 AM SHEARING MACHINE OPERATOR Oxygen Saturation 93% 04/03/2023 3:00 AM SHEARING MACHINE OPERATOR Inhaled Oxygen Concentration - - Weight 57.7 kg (127 lb 3.3 oz) 04/03/2023 1:15 A M SHEARING MACHINE OPERATOR Height 158.5 cm (5' 2.4) 02/19/2023 6:31 AM SHEARING MACHINE OPERATOR Body Mass Index 22.97 02/19/2023 6:31 AM SHEARING MACHINE OPERATOR Plan of Treatment Upcoming Encounters Date Type Department Care Team (Latest Contact Info) Description 04/26/2023 10:40 AM SHEARING MACHINE OPERATOR Virtual Visit Division of Gastroenterology in [place], [place] [address] [place] [phone] Jose Roberto Patterson M.D. [address] [place] [phone] 04/29/2023 9:30 AM SHEARING MACHINE OPERATOR Appointment Division of Gastroenterology in [place], [place] [address] [place] [phone] Jose Roberto Patterson M.D. [address] [place] [phone] Shane Becerra M.D. [address] [place] [phone] Discharge Disposition: Home or Self Care Procedures Procedure Name Priority Date/Time Associated Diagnosis Comments CT ABDOMEN PELVIS WITH IV CONTRAST RAD - Semiurgent (Fast; most ED patients; some inpatients) 04/03/2023 2:34 AM SHEARING MACHINE OPERATOR CT HEAD WITHOUT IV CONTRAST RAD - Semiurgent (Fast; most ED patients; some inpatients) 04/03/2023 2:30 AM SHEARING MACHINE OPERATOR LIPASE, S/P STAT 04/03/2023 1:41 AM SHEARING MACHINE OPERATOR LACTATE, B/P STAT 04/03/2023 1:41 AM SHEARING MACHINE OPERATOR C-REACTIVE PROTEIN (CRP), S/P STAT 04/03/2023 1:41 AM SHEARING MACHINE OPERATOR COMPREHENSIVE METABOLIC PANEL, S/P STAT 04/03/2023 1:41 AM SHEARING MACHINE OPERATOR CBC WITH DIFFERENTIAL, B STAT 04/03/2023 1:41 AM SHEARING MACHINE OPERATOR GLUCOSE POCT, B Routine 02/19/2023 6:17 AM SHEARING MACHINE OPERATOR HEMOGLOBIN A1C, B Routine 02/19/2023 6:1 7 AM SHEARING MACHINE OPERATOR from Last 3 Months Results * CT Abdomen Pelvis with IV Contrast (04/03/2023 2:34 AM SHEARING MACHINE OPERATOR) Anatomical Region Laterality Modality Abdomen, Pelvis, Abdominal R ST LOS, Abdominal ARZ LOS, Abdominal FLA LOS N/A Computed Tomography 04/03/2023 2:24 AM SHEARING MACHINE OPERATOR Impressions 04/03/2023 2:53 AM SHEARING MACHINE OPERATOR 1. Sequela of chronic pancreatitis without imaging findings of acute pancreatitis. 2. Large colonic stool burden could indicate constipation. Narrative 04/03/2023 2:53 AM SHEARING MACHINE OPERATOR EXAM: CT ABDOMEN PELVIS WITH IV CONTRAST [...] Head without IV Contrast (04/03/2023 2:30 AM SHEARING MACHINE OPERATOR) Anatomical Region Laterality Modality Head, Neuroradiology RST LOS , Neuroradiology ARZ LOS, Neuroradiology FLA LOS N/A Computed Tomography 04/03/2023 2:18 AM SHEARING MACHINE OPERATOR Impressions 04/03/2023 2:37 AM SHEARING MACHINE OPERATOR 1. ??Negative for acute intracranial abnormality. 2. ??Stable patchy white matter hypoattenuation compatible with known demyelinating disease. Narrative 04/03/2023 2:37 AM SHEARING MACHINE OPERATOR EXAM: CT HEAD WITHOUT IV CONTRAST COMPARISON: [...] CBC with Differential, Blood (04/03/2023 1:41 AM [facility]) Hemoglobin 12.0 11.6 - 15.0 g/dL 04/03/2023 2:28 AM SHEARING MACHINE OPERATOR CNFL Hematocrit 35.4(L) 35.5 - 44.9 % 04/03/2023 2:28 AM SHEARING MACHINE OPERATOR CNFL Erythrocytes 3.75(L) 3.92 - 5.13 x10(12)/L 04/03/2023 2:28 AM SHEARING MACHINE OPERATOR CNFL MCV 94.4 78.2 - 97.9 fL 04/03/2023 2:28 AM SHEARING MACHINE OPERATOR CNFL RBC Distrib Width 12.2 12.2 - 16.1 % 04/03/2023 2:28 AM SHEARING MACHINE OPERATOR CNFL Platelet Count 212 157 - 371 x10(9)/L 04/03/2023 2:28 AM SHEARING MACHINE OPERATOR CNFL Leukocytes 4.7 3.4 - 9.6 x10(9)/L 04/03/2023 2:28 AM SHEARING MACHINE OPERATOR CNFL Neutrophils 1.91 1.56 - 6.45 x10(9)/L 04/03/2023 2:28 AM SHEARING MACHINE OPERATOR CNFL Lymphocytes 1.81 0.95 - 3.07 x10(9)/L 04/03/2023 2:28 AM SHEARING MACHINE OPERATOR CNFL Monocytes 0.85(H) 0.26 - 0.81 x10(9)/L 04/03/2023 2:28 AM SHEARING MACHINE OPERATOR CNFL Eosinophils 0.15 0.03 - 0.48 x10(9)/L 04/03/2023 2:28 AM SHEARING MACHINE OPERATOR CNFL Basophils <0.04 0.01 - 0.08 x10(9)/L 04/03/2023 2:28 AM SHEARING MACHINE OPERATOR CNFL Blood (Blood, Venous) 04/03/2023 1:41 AM SHEARING MACHINE OPERATOR 04/03/2023 2:03 AM SHEARING MACHINE OPERATOR Madhav Basurto APRN, C.N.P., D.N.P. LAB BLOOD ADD-ON Performing Organization Address City/State/[facility] Co de Phone Number [facility] [address] [place] [address], [place] CNFL [facility] [address] [address] * CRP (C-Reactive Protein) (04/03/2023 1:41 AM SHEARING MACHINE OPERATOR) C-Reactive Protein (CRP), P 3.5 <5.0 mg/L 04/03/2023 2:24 AM SHEARING MACHINE OPERATOR CNFL Blood (Blood, Venous) 04/03/2023 1:41 AM SHEARING MACHINE OPERATOR 04/03/2023 2:03 AM SHEARING MACHINE OPERATOR Madhav Basurto APRN, Mona.N.P., D.N.P. LAB BLOOD ADD-ON [address] [address], [facility] [address] [address] * (ABNORMAL) Lipase (04/03/2023 1:41 AM SHEARING MACHINE OPERATOR) Lipase, P 9(L) 13 - 60 U/L 04/03/2023 2: 24 AM SHEARING MACHINE OPERATOR CNFL Blood (Blood, Venous) 04/03/2023 1:41 AM SHEARING MACHINE OPERATOR 04/03/2023 2:03 AM SHEARING MACHINE OPERATOR Madhav Basurto APRN, Mona.N.P., D.N.P. LAB BLOOD ADD-ON [facility] [address] [place] [address], [address] [address] * Lactate (04/03/2023 1:41 AM SHEARING MACHINE OPERATOR) Lactate, P 1.0 0.5 - 2.2 mmol/L 04/03/2023 2:22 AM SHEARING MACHINE OPERATOR CNFL Blood (Blood, Venous) 04/03/2023 1:41 AM SHEARING MACHINE OPERATOR 04/03/2023 2:03 AM SHEARING MACHINE OPERATOR Sandra Tan APRNNCarlosP., D.N.P. LAB BLOOD NON ADD-ON [facility] [address] [place] [address], [facility] CNFL [facility] in [address] [address] * (ABNORMAL) Comprehensive Metabolic Panel (04/03/2023 1:41 AM SHEARING MACHINE OPERATOR) Pathologist [facility] Potassium, P 3.9 3.6 - 5.2 mmol/L 04/03/2023 2:24 AM SHEARING MACHINE OPERATOR CNFL Sodium, P 134(L) 135 - 145 mmol/L 04/03/2023 2:24 AM SHEARING MACHINE OPERATOR CNFL Chloride, P 99 98 - 107 mmol/L 04/03/2023 2:24 AM SHEARING MACHINE OPERATOR CNFL Bicarbonate, P 26 22 - 29 mmol/L 04/03/2023 2:24 AM SHEARING MACHINE OPERATOR CNFL Anion Gap, P 9 7 - 15 04/03/2023 2:24 AM SHEARING MACHINE OPERATOR CNFL BUN (Blood Urea Nitrogen), P 13 6 - 21 mg/dL 04/03/2023 2:24 AM SHEARING MACHINE OPERATOR CNFL Creatinine 0.89 0.59 - 1.04 mg/dL 04/03/2023 2:24 AM SHEARING MACHINE OPERATOR CNFL Estimated GFR (eGFR) 71 >=60 mL/min/BS A 04/03/2023 2:24 AM SHEARING MACHINE OPERATOR CNFL Comment: Estimated GFR calculated using the 2020 CKD_EPI creatinine equation. Calcium, Total, P 9.0 8.8 - 10.2 mg/dL 04/03/2023 2:24 AM SHEARING MACHINE OPERATOR CNFL Glucose, P 188(H) 70 - 140 mg/dL 04/03/2023 2:24 AM SHEARING MACHINE OPERATOR CNFL Protein, Total, P 6.2(L) 6.3 - 7.9 g/dL 04/03/2023 2:24 AM SHEARING MACHINE OPERATOR CNFL Albumin, P 3.8 3.5 - 5.0 g/dL 04/03/2023 2:24 AM SHEARING MACHINE OPERATOR CNFL Aspartate Aminotransferase (AST), P 27 8 - 43 U/L 04/03/2023 2:24 AM SHEARING MACHINE OPERATOR CNFL Alkaline Phosphatase, P 91 35 - 104 U/L 04/03/2023 2:24 AM SHEARING MACHINE OPERATOR CNFL Alanine Aminotransferase (ALT), P 30 7 - 45 U/L 04/03/2023 2:24 AM SHEARING MACHINE OPERATOR CNFL Bilirubin, Total, P <0.2 0.0 - 1.2 mg/dL 04/03/2023 2:24 AM SHEARING MACHINE OPERATOR CNFL Blood (Blood, Venous) 04/03/2023 1:41 AM SHEARING MACHINE OPERATOR 04/03/2023 2:03 AM SHEARING MACHINE OPERATOR Madhav Basurto APRN, C.N.P., D.N.P. LAB BLOOD ADD-ON [facility] [address] [place] [address], [facility] CNFL [facility] [place] [address] * Glucose, POCT (02/19/2023 6:17 AM SHEARING MACHINE OPERATOR) Glucose, POCT, B 82 70 - 140 mg/dL 02/19/2023 6:38 AM SHEARING MACHINE OPERATOR PCDE Site Capillary 02/19/2023 6:38 AM SHEARING MACHINE OPERATOR PCDE Blood 02/19/2023 6:17 AM SHEARING MACHINE OPERATOR 02/19/2023 6:38 AM SHEARING MACHINE OPERATOR Unknown Provider LAB POCT ORDERABLES- MANUAL POC [employer] [address] [place] [address], [facility] PCDE [facility] POC [address] [place] [address] * (ABNORMAL) Hemoglobin A1c (02/19/2023 6:17 AM SHEARING MACHINE OPERATOR) Hemoglobin A1c, B 7.8(H) 4.0 - 5.6 % 02/19/2023 7:11 AM SHEARING MACHINE OPERATOR DTL Comment: Hemoglobin A1c values greater than or equal to 6.5 percent are diagnostic for diabetes mellitus. ??Diagnosis should be confirmed by repeat testing. ??In diabetic patients, HbA1c goals should be discussed with healthcare provider. Blood (Blood, Venous) 02/19/2023 6:17 AM SHEARING MACHINE OPERATOR 02/19/2023 6:33 AM SHEARING MACHINE OPERATOR Luis Andrew M.D., M.P.H. LAB BLOOD ADD-ON [facility] [address] [place] [address], [place] DTL [facility] [address] [place] [address] from Last 3 Months Advance Directives For more information, please contact: [phone] Documents on File Type Date Recorded Patient Barrel Turner Expl anation Advance Directives 09/17/2011 12:00 AM Leg acy document. See document viewer. Latest Code Status on File Code Status Date Activated Date Inactivated Comments Full Code 10/23/2022 2:51 PM 10/25/2022 1:26 AM Question Answer Comments Full Code: Discussed Care Teams Supervisor Shipping Relationship Specialty Start Date End Date Elsewhere, Pcp PCP - General Internal Medicine 06/26/22
--- OUTSIDE RECORDS SUMMARY | 2023-04-10 10:17 | XMS_ITS | Encounter Summary ---
Author Name Unknown Organization [facility] Address [address] [place] [address] Care Team Providers Care Sink Maker Name Role Phone Elsewhere, Pcp Primary Care Provider Unavailabl e Reason for Visit * Reason Onset Date Comments Nicotine Dependence 02/11/2023 Encounter Details Date Type Department Care Team (Latest Contact Info) Description 02/11/2023 Clinical Communication Department of Nicotine Dependence, [facility], in [place], [place] [address] [place] [address] Froy Can M.A. Nicotine Dependence Social History Tobacco Use Types Packs/Day Years [...] your living situation today? I have a [facility] place to live 01/01/2023 Sex and Gender Information Value Date Recorded Sex Assigned at Female 01/01/2023 9:08 AM CDT Gender Identity Female 01/01/2023 9:08 AM CDT Sexual Orientation Straight 01/01/2023 9: 08 AM CDT documented as of this encounter Plan of Treatment Upcoming Encounters Date Type Department Care Team (Latest Contact Info) Description 04/26/2023 10:40 AM LUMBER LOADER Virtual Visit Division of Gastroenterology in [place], [place] [address] [place] [address] Jose Roberto Patterson M.D. [address] [place] [address] 04/29/2023 9:30 AM LUMBER LOADER Appointment Division of Gastroenterology in [place], [place] [address] [place] [address] Jose Roberto Patterson M.D. [address] [place] [phone] Shane Becerra M.D. [address] [place] [address] Discharge Disposition: Home or Self Care documented as of this encounter Visit Diagnoses Not on filedocumented in this encounter Additional Health Concerns Assessment Noted Time PHQ-9 Depression Total Score: 21 05/31/ 012 10:33 AM LUMBER LOADER documented as of this encounter Care Teams Sink Maker Relationship Specialty Start Date End Date Elsewhere, Pcp PCP - General Internal Medicine 06/26/22 documented as of this encounter
--- OUTSIDE RECORDS SUMMARY | 2023-04-10 10:17 | XMS_ITS | Encounter Summary ---
Author Name Unknown Organization [facility] Address [address] [place] [address] Care Team Providers Care Erisa Attorney Name Role Phone Elsewhere, Pcp Primary Care Provider Unavailabl e Encounter Details Date Type Department Care Team (Latest Contact Info) Description 12/27/2022 1:20 PM CDT Ancillary Procedure Department of Gastroenterology Social History Tobacco Use Types Packs/Day Years Used Date Smoking Tobacco: Every Day Cigarettes 0.5 Smokeless Tobacco: Never Alcohol Use Standard Drinks/Week Comments No 0 (1 standard drink = 0.6 oz pur e alcohol) Nutrition Answer Date Recorded Nutrition: EVOO Fat Source Unknown 05/20 Nutrition: Servings of Fruits/Vegetables per Day Not on file 05/20/2020 Dental Answer Date Recorded Dental: Regular Dentist Unknown 05/20/19 21 Sex and Gender Information Value Date Recorded Sex Assigned at Female 01/01/2023 9:08 AM CDT Gender Identity Female 01/01/2023 9:08 AM CDT Sexual Orientation Straight 01/01/2023 9: 08 AM CDT documented as of this encounter Plan of Treatment Upcoming Encounters Date Type Department Care Team (Latest Contact Info) Description 04/26/2023 10:40 AM INDUSTRIAL SERVICES WORKER Virtual Visit Division of Gastroenterology in [place], [place] [address] [place] [address] Jose Roberto Patterson M.D. [address] [place] [address] 04/29/2023 9:30 AM INDUSTRIAL SERVICES WORKER Appointment Division of Gastroenterology in [place], [place] [address] [place] [address] Jose Roberto Patterson M.D. [address] [place] [phone] Shane Becerra M.D. [address] [place] [phone] Discharge Disposition: Home or Self Care documented as of this encounter Procedures Procedure Name Priority Date/Time Associated Diagnosis Comments GASTROENTEROLOGY IMAGE EXAM Routine 12/27/2022 1:20 PM CDT documented in this encounter Results * Upper EUS-Gastroenterology Image Exam (12/27/2022 1:20 PM CDT) 12/27/2022 1:16 PM CDT Narrative [facility] - 12/27/2022 2:22 PM CDT This order has been created and auto-finalized to support the import of images acquired without order. The clinical documentation to support these images can be found on the encounter that produced images. Provider Not In System IMG NON RAD IMAGI NG PROCEDURES [facility] NA documented in this encounter Visit Diagnoses Not on filedocumented in this encounter Additional Health Concerns Assessment Noted Time PHQ-9 Depression Total Score: 21 012 10:33 AM INDUSTRIAL SERVICES WORKER documented as of this encounter Care Teams Erisa Attorney Relationship Specialty Start Date End Date Elsewhere, Pcp PCP - General Internal Medicine 06/26/22 documented as of this encounter
--- OUTSIDE RECORDS SUMMARY | 2023-04-10 10:17 | XMS_ITS | Encounter Summary ---
Author Name Unknown Organization [facility] Address [address] [place] [address] Care Team Providers Care Physical Education Department Chair Name Role Phone Elsewhere, Pcp Primary Care Provider Unavailabl e Reason for Visit * Reason Comments Back Pain Encounter Details Date Type Department Care Team (Late st Contact Info) Description 01/05/2023 4:46 PM CDT - 01/05/2023 8:07 PM CDT [facility] [address] [place] [phone] Madhav Basurto APRN, C.N.P., D.N.P. [address] [place] [phone] Rivera Brandt APRN, C.N.P., M.S.N. [address] [place] [phone] Abdominal Pain (Primary Dx) Discharge Disposition: Home or Self Care Social [...] your living situation today? I have a [facility] place to live 01/01/2023 Sex and Gender Information Value Date Recorded Sex Assigned at Female 01/01/2023 9:08 AM CDT Gender Identity Female 01/01/2023 9:08 AM CDT Sexual Orientation Straight 01/01/2023 9: 08 AM CDT documented as of this encounter Last Filed Vital Signs Vital Sign Reading Time Taken Comments Blood Pressure 183/84 01/05/2023 6:45 PM CDT Pulse 74 01/05/2023 6:45 PM CDT Temperature 36.7 ??C (98.1 ??F) 01/05/2023 4:47 PM CD T Respiratory Rate 16 01/05/2023 5:57 PM CDT Oxygen Saturation 94% 01/05/2023 6:45 PM CDT Inhaled Oxygen Concentration - - Weight 55.6 kg (122 lb 9.2 oz) 01/05/2023 4:48 P M CDT Height - - Body Mass Index 21.04 12/27/2022 8:45 AM CDT documented in this encounter Discharge Instructions * Discharge Instructions* Rivera Brandt APRN, C.NAubrie., M.S.N. - 01/05/2023 7:36 PM CDT I do not suspect any emergent cause of your abdominal pain at this time. Your CT scan are reassuring. I do recommend reaching your to your GI specialist for further evaluation as necessary. If you develop fever, nausea vomiting that you can not control, increasing abdominal pain, rectal bleeding, or worsening symptoms, return to the emergency department for further evaluation. * Attachments The following attachments cannot be sent through Care Everywhere. * Abdominal Pain Adult (Venezuelan) documented in this encounter Medications at Time [...] after 1 week. 53 tablet 0 01/02/2023 Accu-Chek Guide Me Glucose Mtr misc USE DIRECTED, TESTING THREE TIMES A DAY 0 07/25/2022 02/19/2023 baclofen (LIORESAL) 10 mg tablet Take by mouth every 8 (eight) hours. 0 05/17/2021 02/19/2023 cyclobenzaprine (FLEXERIL) 10 mg tablet Take 1 tablet (10 mg total) by mouth 3 (three) times a day as needed for muscle spasms for up to 10 days. 21 tablet 0 10/25/2022 02/19/2023 DULoxetine (CYMBALTA) [address] capsule Take 1 capsule by mouth at bedtime. 0 01/14/2015 02/19/2023 Eliquis 5 mg tablet Take 1 tablet by mouth 2 (two) times a day. 0 01/30/2023 02/19/2023 gabapentin (NEURONTIN) 300 mg capsule take 1 capsule by oral route twice a day 0 05/17/2021 02/19/2023 glipiZIDE (GLUCOTROL) 10 mg tablet Take 20 mg by mouth at bedtime. 0 02/19/2023 insulin glargine (LANTUS) 100 unit/mL injection Inject 20 Units under the skin. 0 09/17/2022 02/19/2023 polyethylene glycol (MIRALAX) 17 gram/dose oral powder Take 17 g by mouth at bedtime as needed. 0 01/08/2023 02/19/2023 sennosides (SENOKOT) 8.6 mg tablet Take 8.6-17.2 mg by mouth 2 (two) times a day as needed. 0 01/08/2023 02/19/2023 varenicline (CHANTIX) 1 mg tablet Take 1 tablet (1 mg total) by mouth 2 (two) times a day. 60 tablet 4 01/02/2023 02/19/2023 documented as of this encounter ED Notes * Rivera Brandt, ATUL, C.N.P., M.S.N. - 01/05/2023 7:31 PM CDT Care of patient transferred to tn by Madhav Basurto CNP. Disposition pending lab work and imaging. This is a patient with history of chronic pancreatitis and chronic abdominal pain presents to the ED concerning for abdominal pain. Has had similar episodes in the past before. On lab work, noted leukocytosis with left shift although no fevers or chills. Trending lactate normal and reassuring. CT reassuring with no acute intra- abdominal or intrathoracic process. At this time less suspicion for any infectious cause. EKG and troponin reassuring. Less suspicion for ACS at this time. Pain control in the emergency department. Plan: Patient does have chronic pain management and is on oxycodone at home. Discharge home with return precautions given. VITAL SIGNS BP (!) 183/84 Pulse 74 Temp 36.7 ??C (Temporal) Resp 16 Wt 55.6 kg SpO2 94% BMI 21.04 kg/m?? Final Diagnoses: as of 01/05/231935 Abdominal Pain Rivera Brandt APRN, C.NAbner, M.S.N. 01/05/231935 * Meagan Lozano R.N. - 01/05/2023 5:05 PM CDT Pt presents to ED with c/o lower right sided back intermittent back pain and sharp left arm pain that she rates both at a 10/10. The pain started this morning. Denies fever, vomiting. Meagan Lozano R.N. 01/05/231705 * Madhav Basurto APRN, C.N.Maureen, Fiona.N.P. - 01/05/2023 5:05 PM CDT Images from the original note were not included. CHIEF COMPLAINT/REASON FOR VISIT Back Pain HISTORY OF PRESENT ILLNESS Patient presents to the emergency department with complaints of left wrist pain which started this morning. It started then moving up her left arm and is now located in her left scapular region. Movement of the left arm exaggerates the left scapular pain. Patient is moaning and groaning and unable to find a comfortable position secondary to pain. Patient is also having some right flank pain. Patient does have a history of pancreatic stones and she is currently being worked up for possible lithotripsy of her pancreas. Patient does have a history of chronic pancreatitis. Patient is complaining of some left lower chest pain with left upper quadrant abdominal pain. Patient has nausea but no vo miting. Patient denies any fever, chills, sweats or other constitutional symptoms. Patient denies any urinary frequency, hesitancy or burning. Patient states she feels slightly short of breath but I believe this is probably secondary to the pain she is currently in. History provided by: Patient coverage specialist rn needed/used: no REVIEW OF SYSTEMS Constitutional: Negative for chills, diaphoresis, fatigue and fever. HENT: Negative for sinus pressure and sore throat. Respiratory: Negative for cough, chest tightness and shortness of breath. Cardiovascular: Positive for chest pain. Gastrointestinal: Negative for abdominal pain, constipation, diarrhea, nausea and vomiting. Right flank pain Genitourinary: Negative for dysuria, frequency and urgency. Musculoskeletal: Positive for extremity pain. Negative for arthralgias and myalgias. Skin: Negative for rash. Neurological: Negative for dizziness, weakness and headaches. Hematological: Negative for adenopathy. Does not bruise/bleed easily. All other systems reviewed and are negative. Allergies Reviewed in medical record Current Medications Reviewed in Medical Record. PAST HISTORY Medical Past Medical History: Diagnosis Date Diabetes Mellitus NOS Multiple Sclerosis (HCC) Pancreatitis Acute (HCC) Patient Active Problem List Diagnosis Pancreatitis [...] History Social History Tobacco Use Smoking status: Every Day Packs/day: 0.50 Years: 45.00 Pack years: 22.50 Types: Cigarettes Start date: 04/01/1968 Smokeless tobacco: Never Substance Use Topics Alcohol use: No Social History Substance and Sexual Activity Drug Use Yes Frequency: 7.0 times per week Types: Marijuana OBJECTIVE Initial Vital Signs / Weights Initial Vitals Temperature 01/05/23 1647 36.7 ??C Pulse Rate 01/05/23 1647 70 Heart Rate 01/05/23 1647 70 Resp Rate 01/05/23 1647 15 Blood Pressure 01/05/23 1647 (!) 116/95 SpO2 01/05/23 1647 96 % Pain Score 01/05/23 1658 10 - Worst possible pain Wt Readings from Last 3 Encounters: 01/05/23 55.6 kg 12/27/22 59 kg 10/24/22 60 kg PHYSICAL EXAMINATION Constitutional: Nursing note and vitals reviewed. She appears not lethargic. She appears distressed. Patient is moaning and groaning in pain, unable to find a comfortable position. HENT: Mouth/Throat: Oropharynx is clear and moist. [...] respiratory distress. Abdominal: Soft. Bowel sounds are normal. There is no abdominal tenderness. There is no rebound andno guarding. Mild right CVA tenderness. Musculoskeletal: General: Normal range of motion. Cervical back: Normal range of motion and neck supple. Comments: Tenderness mostly about the left scapular region. No trigger points appreciated. Local massage does seem to help her symptoms. Movement of the left arm greatly exaggerates her symptoms. Lymphadenopathy: She has no cervical adenopathy. Neurological: Alert and oriented to person, place, and time. No cranial nerve deficit. Skin: Skin is warm, dry and intact. She is not diaphoretic. Psychiatric: She has a normal mood and affect. DIAGNOSTICS Labs Labs Reviewed CBC WITH DIFFERENTIAL, B - Abnormal Result Value Hemoglobin 12.9 Hematocrit 38.2 Erythrocytes 4.06 MCV 94.1 RBC Distrib Width 12.5 Platelet Count 292 Leukocytes 13.1 (*) Neutrophils 7.54 (*) Lymphocytes 3.95 (*) Monocytes 0.98 (*) Eosinophils 0.57 (*) Basophils 0.05 COMPREHENSIVE METABOLIC PANEL, S/P - Abnormal Potassium, P 3.8 Sodium, P 140 Chloride, P 104 Bicarbonate, P 25 Anion Gap, P 11 BUN (Blood Urea Nitrogen), P 13 Creatinine 0.75 Estimated GFR (eGFR) 87 Calcium, Total, P 9.2 Glucose, P 171 (*) Protein, Total, P 6.5 Albumin, P 3.7 Aspartate Aminotransferase (AST), P 24 Alkaline Phosphatase, P 86 Alanine Aminotransferase (ALT), P 24 Bilirubin, Total, P <0.2 URINALYSIS WITH MICROSCOPIC - Abnormal Source Urine, Urine, Midstream Clarity Slightly Cloudy (*) Color Hyacinth Blood Large (*) Nitrite Negative Leukocyte Esterase Negative Protein 100 (*) Glucose Negative Ketones, QI(U) Trace (*) Bilirubin Small (*) pH 5.5 Specific [place] >=1.030 Urobilinogen 0.2 White Blood Cells Occ-3 Red Blood Cells >100 (*) Dysmorphic Red Blood Cells >25 (*) Crystals Calcium Oxalate (*) LIPASE, S/P Lipase, P 14 LACTATE, B/P Lactate, P 0.8 TROPONIN T, BASELINE, 5TH GEN, P Troponin T, Baseline, 5th gen 6 D-DIMER, P D-Dimer, P <220 C-REACTIVE PROTEIN (CRP), S/P C-Reactive Protein (CRP), P <3.0 LACTATE, B/P TROPONIN T, 2H/6H, 5TH GEN, P ECG ECG 12 Lead Result Date: 01/05/2023 Normal sinus rhythm Low anterior forces When compared with ECG of 16-JUL-2018 01:15, Nonspecific T wave abnormality no longer evident in Anterolateral leads Reviewed by DANNY Lambert Radiology CT Chest Abdomen Pelvis Angiogram with IV Contrast (Results Pending) Pending at this writing Procedures None See separate procedure note. ED COURSE ED Course as of 01/05/23 1829 Sat Jan 05, 2023 1641 I performed my initial evaluation of the patient. We discussed Emergency Department course including testing, treatment, and potential disposition based on findings. 1732 Troponin T, Baseline, 5th gen: 6 1732 Lipase, P: 14 1732 D-Dimer, P: <220 1732 Lactate: 0.8 1732 White Blood Cell Count(!): 13.1 1732 Neutrophils(!): 7.54 1753 Patient states her pain and spasms have seemed to gotten only slightly better. Will repeat 50 of fentanyl and apply a Lidoderm patch. Local massage of the right scapular region seems to help alleviate some of her symptoms. I do not feel a specific trigger point. 1811 When leave the room patient appears rather comfortable. Will do a CTA of her chest abdomen pelvis to rule out dissection, pancreatitis although her lipase is negative, as well as ureteral colic.Patient was just able to get a urine. But I believe imaging is indicated secondary to the dissection issue. 1828 Patient will be signed out to Rivera Brandt CNP at change of shift. Will need to follow-up on imaging as well as repeat troponin. Anticipate discharge home on pain medication. 1828 UA with hematuria although she does carry a diagnosis of hematuria, negative for any infectious process. Should be able to rule out ureteral colic on CT scan. INTERVENTIONS Medications lidocaine 5 % 1 patch (LIDODERM) (1 patch transdermal Medication Applied 01/05/231758) iohexoL 350 mg iodine/mL solution 80 mL (OMNIPAQUE) (has no administration in time range) sodium chloride 0.9 % flush 80 mL (has no administration in time range) sodium chloride 0.9 % injection 10 mL (has no administration in time range) fentaNYL injection 50 mcg (SUBLIMAZE) (50 mcg intravenous Given 01/05/231701) ondansetron (PF) injection 4 mg (ZOFRAN) (4 mg intravenous Given 01/05/231701) LORazepam injection 1 mg (ATIVAN) (1 mg intravenous Given 01/05/231711) fentaNYL injection 50 mcg (SUBLIMAZE) (50 mcg intravenous Given 01/05/231757) MEDICAL DECISION MAKING Assessment and Plan Patient presents to the emergency department with a constellation of different types of pain. Patient has most significant pain is left scapular pain, which started is left wrist pain and then radiated up her arm. Symptoms been present since this morning. She is also complaining of left lower chestpain and left upper quadrant abdominal pain. Patient does have a history of pancreatitis and pancreatic stones. Patient is also complaining of right flank pain. Patient has no urinary symptoms associated with this. Patient denies any fever, chills, sweats. Patient is rather uncomfortable with pain in his rolling around on the stretcher trying to find a comfortable position. A CBC, CMP, CRP, lactate, serial troponins, UA were drawn/ordered in the emergency department, peripheral IV was placed. Patient was given 50 of fentanyl initially for analgesia, then she was given 1mg of Ativan secondary to muscle spasms. Disposition pending workup. CBC with a mild leukocytosis and neutrophilia. BEADER unremarkable, CRP is within normal limits, lactate is unremarkable, a D-dimer is negative at less than 220, initial troponin is 6, lipase is 14,. DIFFERENTIAL DIAGNOSES Differential diagnosis includes but not limited to pulmonary embolism, aortic dissection, ACS, musculoskeletal pain, pyelonephritis, ureteral colic, or others.. PROBLEMS ADDRESSED THIS VISIT As above. Care is significantly affected by the following Social Determinants of Health: low income and access to transportation; and Food insecurity. I reviewed the following external records: inpatient records, prior outpatient labs, primary care records and prior outpatient radiology tests. The following tests were considered but ultimately not performed: none. Escalation of care, including admission/observation, considered: none. My ECG interpretation includes the following comments: Normal sinus rhythm with nonspecific ST changes. Heart rate is 63, intervals are all within normal limits.. DIAGNOSIS Pending DISPOSITION Pending Madhav Basurto, ARIANE, LAUNDRETTE OWNER, FARM APPRAISER-C, AGACNP-BC, ENP-C Emergency Medicine Madhav Basurto APRN, C.N.P., D.N.P. 01/05/23 1827 documented in this encounter Plan of Treatment Upcoming Encounters Date Type Department Care Team (Latest Contact Info) Description 04/26/2023 10:40 AM TRANSFER AGENT Virtual Visit Division of Gastroenterology in [place], [place] [address] [place] [phone] Jose Roberto Patterson M.D. [address] [place] [phone] 04/29/2023 9:30 AM TRANSFER AGENT Appointment Division of Gastroenterology in [place], [place] [address] [place] [phone] Jose Roberto Patterson M.D. [address] [place] [phone] Shane Becerra M.D. [address] [place] [phone] Discharge Disposition: Home or Self Care documented as of this encounter Procedures Procedure Name Priority Date/Time Associated Diagnosis Comments TROPONIN T, 2H/6H, 5TH GEN, P Timed 01/05/2023 7:08 PM CDT LACTATE, B/P Timed 01/05/2023 7:[address] CHEST ABDOMEN PELVIS ANGIOGRAM WITH IV CONTRAST RAD - Semiurgent (Fast; most ED patients; some inpatients) 01/05/2023 6:44 PM CDT URINALYSIS WITH MICROSCOPIC STAT 01/05/2023 5:52 PM CDT TROPONIN T, BASELINE, 5TH GEN, P STAT 01/05/2023 4:59 PM CDT D-DIMER, P STAT 01/05/2023 4:59 PM CDT CBC WITH DIFFERENTIAL, B STAT 01/05/2023 4:59 PM CDT C-REACTIVE PROTEIN (CRP), S/P STAT 01/05/2023 4:59 PM CDT LIPASE, S/P STAT 01/05/2023 4:59 PM CDT LACTATE, B/P STAT 01/05/2023 4:59 PM CDT COMPREHENSIVE METABOLIC PANEL, S/P STAT 01/05/2023 4:59 PM CDT ECG STAT 01/05/2023 4:54 PM CDT documented in this encounter Results * Troponin T, 2h/6h, 5th Gen (01/05/2023 7:08 PM CDT) Troponin T, 2 hr, 5th gen <6 <=10 ng/L 01/05/2023 7:33 PM CDT CNFL 2H Delta -1 ng/L 01/05/2023 7:33 PM CDT CNFL 2H Delta Interp Not Changing 01/05/2023 7:33 PM CDT CNFL Troponin T, 6 hr, 5th gen CANCELED ng/L 01/05/2023 7:33 PM CDT CNFL Comment:Result canceled by t he ancillary. 6H Delta CANCELED ng/L 01/05/2023 7:33 PM CDT CNFL Comment:Result canceled by t he ancillary. 6H Delta % CANCELED % 01/05/2023 7:33 PM CDT CNFL Comment:Result canceled by t he ancillary. Blood (Blood, Venous) 01/05/2023 7:08 PM CDT 01/05/2023 7:11 PM CDT Narrative - [facility] - 01/05/2023 7:33 PM CDT Specimen Information: Specimen ID: [id number] Specimen Type: Blood Specimen Collection Start Date: 01/05/2023 ??7:08 PM Specimen Received Date: 01/05/2023 ??7:11 PM Specimen ID: [id number] Specimen Type: Blood Mdahav Basurto APRN, C.N.P., D.N.P. LAB BLOOD TROPONIN - [facility] [address] [place] [phone], [facility] in [address] [address] * Lactate, 3 hour draw (01/05/2023 7:08 PM CDT) Pathologist [facility] Lactate, P 0.7 0.5 - 2.2 mmol/L 01/05/2023 7:32 PM CDT CNFL Blood (Blood, Venous) 01/05/2023 7:08 PM CDT 01/05/2023 7:11 PM CDT Madhav Basurto APRN, C.N.P., D.N.P. LAB BLOOD NON ADD-ON - [facility] [address] [place] [phone], [facility] in [address] [address] * CT Chest Abdomen Pelvis Angiogram with IV Contrast (01/05/2023 6:44 PM CDT) Anatomical Region Laterality Modality Chest, Abdomen, Pelvis, Card iovascular RST LOS, Abdominal ARZ LOS, Thoracic ARZ LOS, Vascular Interventional ARZ LOS, Thoracic FLA LOS, Procedural C omputed Tomography 01/05/2023 6:47 PM CDT Impressions 01/05/2023 6:52 PM CDT 1. No aortic aneurysm, dissection or penetrating ulcer. 2. No central pulmonary embolism. 3. Chronic pancreatitis with coarse parenchymal calcifications in the head and uncinate process of the pancreas. Unchanged, diffusely dilated main pancreatic duct. Narrative 01/05/2023 6:52 PM CDT EXAM: CT CHEST ABDOMEN PELVIS ANGIOGRAM WITH IV CONTRAST Including 3-D image postprocessing. COMPARISON: CT of the abdomen and pelvis with IV contrast from 11/22/2022 and 10/19/2022 FINDINGS: Vascular findings: No aortic aneurysm, dissection or penetrating ulcer. Negative for acute central pulmonary embolism. The proximal great vessels are widely patent. Scattered coronary artery calcifications. The celiac, superior and inferior mesenteric arteries are widely patent. Single renal artery bilaterally are widely patent without hemodynamically significant stenosis. Nonvascular findings: Scattered scarring in the anterior portion of both upper lobes. Mild bronchial wall thickening. No focal consolidation. No worrisome pulmonary nodules. No mediastinal or hilar adenopathy. No acute fracture or traumatic malalignment of the thoracic spine. T12 vertebral body hemangioma. Multiple coarse calcifications within the pancreatic uncinate process and head with diffusely dilated main pancreatic duct. This is not significantly changed since 10/19/2022. Mild hepatic steatosis. Cholecystectomy. The liver, as spleen, adrenal glands and kidneys are otherwise normal. Normal caliber large and small bowel. No drainable fluid collections. No abdominal or pelvic adenopathy. Mild degenerative disc space narrowing throughout the lumbar spine. Procedure Note Tobias Ann M.D. - 01/05/2023 EXAM: CT CHEST ABDOMEN PELVIS ANGIOGRAM WITH IV CONTRAST Including 3-D image postprocessing. COMPARISON: CT of the abdomen and pelvis with IV contrast from 11/22/2022nd 10/19/2022 FINDINGS: Vascular findings: No aortic aneurysm, dissection or penetrating ulcer.Negative for acute central pulmonary embolism. The proximal great vessels are widely patent.Scattered coronary artery calcifications. The celiac, superior and inferior mesenteric arteries arewidely patent. Single renal artery bilaterally are widely patent without hemodynamicallysignificant stenosis. Nonvascular findings: Scattered scarring in the anterior portion of bothupper lobes. Mild bronchial wall thickening. No focal consolidation. No worrisome pulmonary nodules.No mediastinal or hilar adenopathy. No acute fracture or traumatic malalignment of the thoracicspine. T12 vertebral body hemangioma. Multiple coarse calcifications within the pancreatic uncinate process andhead with diffusely dilated main pancreatic duct. This is not significantly changed since10/19/2022. Mild hepatic steatosis. Cholecystectomy. The liver, as spleen, adrenal glands andkidneys are otherwise normal. Normal caliber large and small bowel. No drainable fluid collections. Noabdominal or pelvic adenopathy. Mild degenerative disc space narrowing throughout the lumbarspine. IMPRESSION: 1. No aortic aneurysm, dissection or penetrating ulcer. 2. No central pulmonary embolism. 3. Chronic pancreatitis with coarse parenchymal calcifications in the headand uncinate process of the pancreas. Unchanged, diffusely dilated main pancreatic duct. Madhav Basurto APRN, C.N.P., D.N.P. IMG CT PROCEDURES * (ABNORMAL) Urinalysis with Microscopic: Urine, Midstream (01/05/2023 5:52 PM CDT) Source Urine, Urine, Midstream 01/05/2023 6:10 PM CDT CNFL Clarity Slightly Cloudy(A) Clear 01/05/2023 6:12 PM CDT CNFL Color Hyacinth 01/05/2023 6:12 PM CDT CNFL Comment: ----REFERENCE VALUE---- Colorless Yellow Hyacinth Blood Large(A) Negative 01/05/2023 6:12 PM CDT CNFL Nitrite Negative Negative 01/05/2023 6:12 PM CDT CNFL Leukocyte Esterase Negative Negative 01/05/2023 6:12 PM CDT CNFL Protein 100(A) mg/dL 01/05/2023 6:12 PM CDT CNFL Comment: ----REFERENCE VALUE---- Negative Trace Glucose Negative Negative mg/dL 01/05/2023 6:12 PM CDT CNFL Ketones, QI(U) Trace(A) Negative mg/dL 01/05/2023 6:12 PM CDT CNFL Bilirubin Small(A) Negative 01/05/2023 6:12 PM CDT CNFL pH 5.5 5.0 - 8.0 01/05/2023 6:12 PM CDT CNFL Specific [place] >=1.030 1.001 - 1.035 01/05/2023 6:12 PM CDT CNFL Urobilinogen 0.2 0.2 - 1.0 mg/dL 01/05/2023 6:12 PM CDT CNFL White Blood Cells Occ-3 /hpf 01/05/2023 6:28 PM CDT CNFL Comment: ----REFERENCE VALUE---- Males: 0-3 Females: 0-10 Unknown: 0-10 Red Blood Cells >100(A) 0 - 2 /hpf 6:28 PM CDT CNFL Dysmorphic Red Blood Cells >25(A) <=25 % 01/05/2023 6:28 PM CDT CNFL Crystals Calcium Oxalate(A) None Seen /lpf 01/05/2023 6:28 PM CDT CNFL Comment:Monohydrate calcium oxalate Urine (Urine, Midstream) 01/05/2023 5:52 PM CDT 01/05/2023 6:10 PM CDT Madhav Basurto APRN C.N.P., D.N.P. LAB URINE ORDERABLES [facility] [address] [address], [address] [address] * CRP (C-Reactive Protein) (01/05/2023 4:59 PM CDT) C-Reactive Protein (CRP), P <3.0 <5.0 mg/L 01/05/2023 5:21 PM CDT [facility] Blood (Blood, Venous) 01/05/2023 4:59 PM CDT 01/05/2023 5:02 PM CDT Madhav Basurto APRN, Mona.N.P., D.N.P. LAB BLOOD ADD-ON [address] [address], [address] [phone] * D-Dimer (01/05/2023 4:59 PM CDT) D-Dimer, P <220 <=500 ng/mL FEU 01/05/2023 5:20 PM CDT [facility] Comment: ----ADDITIONAL INFORMATION---- D-dimer values less than or equal to 500 ng/mL fibrinogen equivalent units (FEU) may be used in conjunction with clinical pre-test probability to exclude deep vein thrombosis (DVT) and/or pulmonary embolism (PE). Blood (Blood, Venous) 01/05/2023 4:59 PM CDT 01/05/2023 5:02 PM CDT Madhav Basurto APRN, Mona.N.P., D.N.P. LAB BLOOD ADD-ON [address] [address], [address] [address] * Troponin T, Baseline, 5th gen (01/05/2023 4:59 PM CDT) Troponin T, Baseline, 5th gen 6 <=10 ng/L 01/05/2023 5:25 PM CDT CNFL Blood (Blood, Venous) 01/05/2023 4:59 PM CDT 01/05/2023 5:02 PM CDT Mona Tan APRN.N.P., D.N.P. LAB BLOOD TROPONIN Performing Organization Address City/[facility]/ZIP Co de Phone Number [facility] [address] [place] [address], [address] [address] * Lactate, baseline (01/05/2023 4:59 PM CDT) Lactate, P 0.8 0.5 - 2.2 mmol/L 01/05/2023 5:19 PM CDT CNFL Blood (Blood, Venous) 01/05/2023 4:59 PM CDT 01/05/2023 5:02 PM CDT Madhav Basurto APRN, Mona.N.P., D.N.P. LAB BLOOD NON ADD-ON [facility] [address] [place] [phone], [address] [address] * Lipase (01/05/2023 4:59 PM CDT) Lipase, P 14 13 - 60 U/L 01/05/2023 5: 21 PM CDT CNFL Blood (Blood, Venous) 01/05/2023 4:59 PM CDT 01/05/2023 5:02 PM CDT Madhav Basurto APRN, C.N.P., D.N.P. LAB BLOOD ADD-ON - [facility] [address] [place] [phone], [facility] CN[facility] in [address] [address] * (ABNORMAL) Comprehensive Metabolic Panel (01/05/2023 4:59 PM CDT) [facility] Potassium, P 3.8 3.6 - 5.2 mmol/L 01/05/2023 5:21 PM CDT CNFL Sodium, P 140 135 - 145 mmol/L 01/05/2023 5:21 PM CDT CNFL Chloride, P 104 98 - 107 mmol/L 01/05/2023 5:21 PM CDT CNFL Bicarbonate, P 25 22 - 29 mmol/L 01/05/2023 5:21 PM CDT CNFL Anion Gap, P 11 7 - 15 01/05/2023 5:21 PM CDT CNFL BUN (Blood Urea Nitrogen), P 13 6 - 21 mg/dL 01/05/2023 5:21 PM CDT CNFL Creatinine 0.75 0.59 - 1.04 mg/dL 01/05/2023 5:21 PM CDT CNFL Estimated GFR (eGFR) 87 >=60 mL/min/BS A 01/05/2023 5:21 PM CDT CNFL Comment: Estimated GFR calculated using the 2020 CKD_EPI creatinine equation. Calcium, Total, P 9.2 8.8 - 10.2 mg/dL 01/05/2023 5:21 PM CDT CNFL Glucose, P 171(H) 70 - 140 mg/dL 01/05/2023 5:21 PM CDT CNFL Protein, Total, P 6.5 6.3 - 7.9 g/dL 01/05/2023 5:21 PM CDT CNFL Albumin, P 3.7 3.5 - 5.0 g/dL 01/05/2023 5:21 PM CDT CNFL Aspartate Aminotransferase (AST), P 24 8 - 43 U/L 01/05/2023 5:21 PM CDT CNFL Alkaline Phosphatase, P 86 35 - 104 U/L 01/05/2023 5:21 PM CDT CNFL Alanine Aminotransferase (ALT), P 24 7 - 45 U/L 01/05/2023 5:21 PM CDT CNFL Bilirubin, Total, P <0.2 0.0 - 1.2 mg/dL 01/05/2023 5:21 PM CDT CNFL Blood (Blood, Venous) 01/05/2023 4:59 PM CDT 01/05/2023 5:02 PM CDT Madhav Basurto APRN, C.N.P., D.N.P. LAB BLOOD ADD-ON - [facility] [address] [place] [address], [facility] [place] [address] * (ABNORMAL) CBC with Differential, Blood (01/05/2023 4:59 PM CDT) Hemoglobin 12.9 11.6 - 15.0 g/dL 01/05/2023 5:07 PM CDT CNFL Hematocrit 38.2 35.5 - 44.9 % 01/05/2023 5:07 PM CDT CNFL Erythrocytes 4.06 3.92 - 5.13 x10(12)/L 01/05/2023 5:07 PM CDT CNFL MCV 94.1 78.2 - 97.9 fL 01/05/2023 5:07 PM CDT CNFL RBC Distrib Width 12.5 12.2 - 16.1 % 01/05/2023 5:07 PM CDT CNFL Platelet Count 292 157 - 371 x10(9)/L 01/05/2023 5:07 PM CDT CNFL Leukocytes 13.1(H) 3.4 - 9.6 x10(9)/L 01/05/2023 5:07 PM CDT CNFL Neutrophils 7.54(H) 1.56 - 6.45 x10(9)/L 01/05/2023 5:07 PM CDT CNFL Lymphocytes 3.95(H) 0.95 - 3.07 x10(9)/L 01/05/2023 5:07 PM CDT CNFL Monocytes 0.98(H) 0.26 - 0.81 x10(9)/L 01/05/2023 5:07 PM CDT CNFL Eosinophils 0.57(H) 0.03 - 0.48 x10(9)/L 01/05/2023 5:07 PM CDT CNFL Basophils 0.05 0.01 - 0.08 x10(9)/L 01/05/2023 5:07 PM CDT CNFL Blood (Blood, Venous) 01/05/2023 4:59 PM CDT 01/05/2023 5:02 PM CDT Madhav Basurto APRN, C.N.P., D.N.P. LAB BLOOD ADD-ON Performing Organization Address City/State/[facility] Co de Phone Number - [facility] [address] [place] [phone], [facility] in [address] [address] * ECG 12 Lead (01/05/2023 4:54 PM CDT) Ventricular Rate ECG/Min 63 BPM MUSE MI Interval 164 ms MUSE QRSD Interval 74 ms MUSE QT Interval 428 ms MUSE QTC Interval 437 ms MUSE P [place] 58 degrees MUSE R [place] 58 degrees MUSE T Wave [place] 66 degrees MUSE 01/05/2023 4:54 PM CDT 01/05/2023 5:04 PM CDT Impressions MUSE - 01/05/2023 5:05 PM CDT Normal sinus rhythm Low anterior forces When compared with ECG of 16-JUL-2018 01:15, Nonspecific T wave abnormality no longer evident in Anterolateral leads Reviewed by DANNY Lambert Narrative Procedure Note Khurram Medrano M.D. - 01/05/2023 IMPRESSION: Normal sinus rhythm Low anterior forces When compared with ECG of 16-JUL-2018 01:15, Nonspecific T wave abnormality no longer evident in Anterolateral leads Reviewed by DANNY Lambert Sandra Tan APRNNAubrie., D.N.P. ECG ORDERABLES MUSE NA documented in this encounter Visit Diagnoses Diagnosis Abdominal Pain- Primary documented in this encounter Administered Medications Inactive Administered Medications - up to 3 most recent administrations Medication Order MAR Action Action Date Dose Rate Site fentaNYL injection 50 mcg (SUBLIMAZE) 50 mcg, intravenous, Once, On 01/05/23 at 1651, For 1 dose Given 01/05/2023 5:02 PM CDT 50 mcg fentaNYL injection 50 mcg (SUBLIMAZE) 50 mcg, intravenous, Once, On 01/05/23 at 1748, For 1 dose Given 01/05/2023 5:58 PM CDT 50 mcg HYDROmorphone injection 0.5 mg (DILAUDID) 0.5 mg, intravenous, Once, On 01/05/23 at 1932, For 1 dose Given 01/05/2023 7:40 PM CDT 0.5 mg iohexoL 350 mg iodine/mL solution 80 mL (OMNIPAQUE) 80 mL, intravenous, Once in imaging, contrast, Starting on 01/05/23 at 1808, For 1 dose Given 01/05/2023 6:41 PM CDT 80 mL lidocaine 5 % 1 patch (LIDODERM) 1 patch, transdermal, Administer over 12 Hours, Once, On 01/05/23 at 1748, For 1 dose, Remove after 12 hours. Medication Applied 01/05/2023 5:59 PM CDT 1 patch Lower Back LORazepam injection 1 mg (ATIVAN) 1 mg, intravenous, Once, On 01/05/23 at 1706, For 1 dose, Shortage on injection, use oral when possible For intravenous use, dilute with equal volume of 0.9% NS Given 01/05/2023 5:12 PM CDT 1 mg ondansetron (PF) injection 4 mg (ZOFRAN) 4 mg, intravenous, Once, On 01/05/23 at 1651, For 1 dose Given 01/05/2023 5:02 PM CDT 4 mg sodium chloride 0.9 % flush 80 mL 80 mL, intravenous, Once, On 01/05/23 at 1810, For 1 dose Given 01/05/2023 6:41 PM CDT 80 mL sodium chloride 0.9 % injection 10 mL 10 mL, intravenous, Once, On 01/05/23 at 1810, For 1 dose Given 01/05/2023 6:42 PM CDT 10 mL documented in this encounter Active and Recently Administered Medications Times are shown in CDT. Scheduled Medication Order 01/03/2023 01/04/2023 01/05/2023 fentaNYL injection 50 mcg (SUBLIMAZE) (COMPLETED) 50 mcg, intravenous, Once, On 01/05/23 at 1651, For 1 dose 170 (Given - Provid er: Meagan Lozano RCarlosN.) fentaNYL injection 50 mcg (SUBLIMAZE) (COMPLETED) 50 mcg, intravenous, Once, On 01/05/23 at 1748, For 1 dose 1758 (Given - Provid er: Meagan Lozano RCarlosN.) HYDROmorphone injection 0.5 mg (DILAUDID) (COMPLETED) 0.5 mg, intravenous, Once, On 01/05/23 at 1932, For 1 dose 1940 (Given - Provid er: Kendall Masters RCarlosN.) lidocaine 5 % 1 patch (LIDODERM) 1 patch, transdermal, Administer over 12 Hours, Once, On 01/05/23 at 1748, For 1 dose, Remove after 12 hours. 1759 (Medication Jackie lied - Provider: Meagan Lozano R.N.)2006 (Due: Medication Removed - Provider: Discharge Provider, Automatic - Comment: Time automatically adjusted from order being discontinued) LORazepam injection 1 mg (ATIVAN) (COMPLETED) 1 mg, intravenous, Once, On 01/05/23 at 1706, For 1 dose, Shortage on injection, use oral when possible For intravenous use, dilute with equal volume of 0.9% NS 171 (Given - Provid er: Maciej Dawson RCarlosN.) ondansetron (PF) injection 4 mg (ZOFRAN) (COMPLETED) 4 mg, intravenous, Once, On 01/05/23 at 1651, For 1 dose 1702 (Given - Provid er: Eladio MainN.) sodium chloride 0.9 % flush 80 mL (COMPLETED) 80 mL, intravenous, Once, On 01/05/23 at 1810, For 1 dose 184 (Given - Provid er: Somo Pronidia, R.T.(R)(CT), R.T.(R)) sodium chloride 0.9 % injection 10 mL (COMPLETED) 10 mL, intravenous, Once, On 01/05/23 at 1810, For 1 dose 184 (Given - Provid er: Somo Pronidia R.T.(R)(CT), R.T.(R)) PRN Medication Order 01/03/2023 01/04/2023 01/05/2023 iohexoL 350 mg iodine/mL solution 80 mL (OMNIPAQUE) (COMPLETED) 80 mL, intravenous, Once in imaging, contrast, Starting on 01/05/23 at 1808, For 1 dose 184 (Given - Provid er: Marito Wright R.T.(R)(CT), R.T.(R)) documented in this encounter Additional Health Concerns Assessment Noted Time PHQ-9 Depression Total Score: 21 012 10:33 AM TRANSFER AGENT documented as of this encounter Care Teams Physical Education Department Chair Relationship Specialty Start Date End Date Elsewhere, Pcp PCP - General Internal Medicine 06/26/22 documented as of this encounter
--- OUTSIDE RECORDS SUMMARY | 2023-04-10 10:17 | XMS_ITS | Encounter Summary ---
Author Name Unknown Organization [facility] Address [address] [place] [address] Care Team Providers Care Tours Hostess Name Role Phone Elsewhere, Pcp Primary Care Provider Unavailabl e Encounter Details Date Type Department Care Team (Late st Contact Info) Description 01/02/2023 Documentation Preoperative Evaluation Center in [place], [place] [address] [place] [phone] Stacie Porter, ATUL, C.N.P., M.S.N. Social History Tobacco Use Types Packs/Day Years [...] your living situation today? I have a [facility] place to live 01/01/2023 Sex and Gender Information Value Date Recorded Sex Assigned at Female 01/01/2023 9:08 AM CDT Gender Identity Female 01/01/2023 9:08 AM CDT Sexual Orientation Straight 01/01/2023 9: 08 AM CDT documented as of this encounter Progress Notes * Stacie Porter APRN, C.N.P., M.S.N. - 01/02/2023 4:11 PM CDT This is a [facility] pre-screening chart review to ascertain if a [facility] appointment is necessary. A comprehensive review of [facility] EMR was performed. We reviewed Care Everywhere and Documents Viewer or primary care or specialty care notes, laboratory testing, cardiac testing with in the last6 months and prior anesthesia encounters. Complete H&P w/ labs done at [facility] on 11/22/22 and documented in EMR. Based on the EMR review, the patient is an acceptable candidate for the planned procedure and may proceed without additional preoperative evaluation or testing. The patient was not seen in [facility]. Please call [phone] ([facility] Doc of the day) week between 8 am and 4:30 pm with any questions. documented in this encounter Plan of Treatment Upcoming Encounters Date Type Department Care Team (Latest Contact Info) Description 04/26/2023 10:40 AM AMMUNITION STOREKEEPER Virtual Visit Division of Gastroenterology in [place], [place] [address] [place] [phone] Jose Roberto Patterson M.D. [address] [place] [phone] 04/29/2023 9:30 AM AMMUNITION STOREKEEPER Appointment Division of Gastroenterology in [place], [place] [address] [place] [phone] Jose Roberto Patterson M.D. [address] [place] [phone] Shane Becerra M.D. [address] [place] [phone] Discharge Disposition: Home or Self Care documented as of this encounter Visit Diagnoses Not on filedocumented in this encounter Additional Health Concerns Assessment Noted Time PHQ-9 Depression Total Score: 21 012 10:33 AM AMMUNITION STOREKEEPER documented as of this encounter Care Teams Tours Hostess Relationship Specialty Start Date End Date Elsewhere, Pcp PCP - General Internal Medicine 06/26/22 documented as of this encounter
--- OUTSIDE RECORDS SUMMARY | 2023-04-10 10:17 | XMS_ITS | Encounter Summary ---
Author Name Unknown Organization [facility] Address [address] [place] [address] Care Team Providers Care Orchid Hand Name Role Phone Elsewhere, Pcp Primary Care Provider Unavailabl e Reason for Visit * Reason Onset Date Comments New Med Request 01/02/2023 Encounter Details Date Type Department Care Team (Latest Contact Info) Description 01/02/2023 Clinical Communication Department of Nicotine Dependence, [facility], in [place], [place] [address] [place] [phone] Froy Can M.A. New Med Request Social History Tobacco Use Types Packs/Day Years [...] your living situation today? I have a [facility] place to live 01/01/2023 Sex and Gender Information Value Date Recorded Sex Assigned at Female 01/01/2023 9:08 AM CDT Gender Identity Female 01/01/2023 9:08 AM CDT Sexual Orientation Straight 01/01/2023 9: 08 AM CDT documented as of this encounter Miscellaneous Notes * Telephone Encounter - Froy Can M.A. - 01/02/2023 3:22 PM CDT Patient has to be nicotine free for two months to qualify for a surgery she is having in march. Her only options are Chantix and Wellbutrin. She has had success in the past with Chantix and quit for 10 years so without Chantix, her only other option is Wellbutrin. I will call and talk to her butwanted to also check with you if there would be any negative interactions between Wellbutrin and any of the medications she is currently on? Thank you! * Telephone Encounter - Froy Can M.A. - 01/02/2023 2:53 PM CDT Manisha, starter, continuation, with refills [place], [place] documented in this encounter Plan of Treatment Upcoming Encounters Date Type Department Care Team (Latest Contact Info) Description 04/26/2023 10:40 AM GENERATOR ASSEMBLER Virtual Visit Division of Gastroenterology in [place], [place] [address] [place] [phone] Jose Roberto Patterson M.D. [address] [place] [phone] 04/29/2023 9:30 AM GENERATOR ASSEMBLER Appointment Division of Gastroenterology in [place], [place] [address] [place] [phone] Jose Roberto Patterson M.D. [address] [place] [phone] Shane Becerra M.D. [address] [place] [phone] Discharge Disposition: Home or Self Care documented as of this encounter Visit Diagnoses Not on filedocumented in this encounter Additional Health Concerns Assessment Noted Time PHQ-9 Depression Total Score: 21 012 10:33 AM GENERATOR ASSEMBLER documented as of this encounter Care Teams Orchid Hand Relationship Specialty Start Date End Date Elsewhere, Pcp PCP - General Internal Medicine 06/26/22 documented as of this encounter
--- OUTSIDE RECORDS SUMMARY | 2023-04-10 10:17 | XMS_ITS | Encounter Summary ---
Author Name Unknown Organization [facility] Address [address] [place] [address] Care Team Providers Care Absence Management Consultant Name Role Phone Elsewhere, Pcp Primary Care Provider Unavailabl e Encounter Details Date Type Department Care Team (Late st Contact Info) Description 01/02/2023 Orders Only Division of Community Internal Medicine at [address] [phone] Giorgio Ward M.D. [address] [place] [phone] Social History Tobacco Use Types Packs/Day Years [...] your living situation today? I have a [facility] place to live 01/01/2023 Sex and Gender Information Value Date Recorded Sex Assigned at Female 01/01/2023 9:08 AM CDT Gender Identity Female 01/01/2023 9:08 AM CDT Sexual Orientation Straight 01/01/2023 9: 08 AM CDT documented as of this encounter Plan of Treatment Upcoming Encounters Date Type Department Care Team (Latest Contact Info) Description 04/26/2023 10:40 AM CUSTOMS PATROL OFFICER Virtual Visit Division of Gastroenterology in [place], [place] [address] [place] [phone] Jose Roberto Patterson M.D. [address] [place] [phone] 04/29/2023 9:30 AM CUSTOMS PATROL OFFICER Appointment Division of Gastroenterology in [place], [place] [address] [place] [phone] Jose Roberto Patterson M.D. [address] [place] [phone] Shane Becerra M.D. [address] [place] [phone] Discharge Disposition: Home or Self Care documented as of this encounter Visit Diagnoses Not on filedocumented in this encounter Additional Health Concerns Assessment Noted Time PHQ-9 Depression Total Score: 21 012 10:33 AM CUSTOMS PATROL OFFICER documented as of this encounter Care Teams Absence Management Consultant Relationship Specialty Start Date End Date Elsewhere, Pcp PCP - General Internal Medicine 06/26/22 documented as of this encounter
--- OUTSIDE RECORDS SUMMARY | 2023-04-10 10:17 | XMS_ITS | Encounter Summary ---
Author Name Unknown Organization [facility] Address [address] [place] [phone] Care Team Providers Care Technician Anatomic Pathology Name Role Phone Elsewhere, Pcp Primary Care Provider Unavailabl e Reason for Visit * Outpatient (Routine) - Closed Specialty Diagnoses / Procedures Referred By Olivia t Referred To Contact Urology Diagnoses Pancreatitis Chronic (HCC) Jose Roberto Patterson M.D. [address] [place] [phone] [facility] Referral ID Status Reason Start Date Expiration Date Visits Re quested Visits Authorized [id number] Closed 12/27/2022 12/27/2023 1 1 Encounter Details Date Type Department Care Team (Late st Contact Info) Description 01/01/2023 9:30 AM CDT Telemedicine Department of Urology in [place], [place] [address] [place] [phone] Luis Andrew M.D., M.P.H. [address] [place] [phone] Stone Pancreatic Duct (Primary Dx); Pancreatitis Chronic (HCC) Social History Tobacco Use Types Packs/Day Years [...] your living situation today? I have a [facility] place to live 01/01/2023 Sex and Gender Information Value Date Recorded Sex Assigned at Female 01/01/2023 9:08 AM CDT Gender Identity Female 01/01/2023 9:08 AM CDT Sexual Orientation Straight 01/01/2023 9: 08 AM CDT documented as of this encounter Consult Notes * Ilene Cedillo APRN, C.N.P., D.N.P. - 01/01/2023 9:30 AM CDT REFERRAL SOURCE The patient is being seen in consultation at the request of Jose Roberto Patterson M.D. [address] [place] [phone] REASON FOR CONSULT Nephrolithiasis Patient seen on Dr. Andrew's calendar Consult conducted via real-time audio/video technology by Ilene Cedillo APRN, C.N.PCarlos, D.N.P. [facility] to the patient in Patient's Home HISTORY OF PRESENT ILLNESS Ms. Prince is a pleasant 67 y.o. female who has a history of chronic pancreatitis. Other comorbidities include chronic abdominal pain, nicotine dependence, diabetes, multiple sclerosis, hypertension, hyperlipidemia and bipolar disorder. She was referred to Urology for consideration of shockwave lithotripsy of pancreatic calcifications. She has multiple pancreatic head calcifications with the largest measuring 13 mm and a secondary stone measuring 8 mm in the neck of the pancreas. She endorses chronic pain along with nausea. She is currently taking oxycodone and aspirin as needed for pain management. Anticoagulation: ASA 325 mg p.r.n. pain Lower Urinary Symptoms Lower Urinary Sx: able to sense full bladder (+) 3 x per day 0 x nightly Obstructive Sx: weak stream (+) kidney infections or required hospitalization for kidney failure (-) # of UTI's in past year: Not applicable Required catheter: no Incontinence: dribbling (+) urge incontinence (+) unintentionally leaks urine (+) leaking occurs during coughing,sneezing or lifting heavy objects (-) experiences a feeling of urgency before leaking (-) Treatments: Treatments taken for urinary symptoms: medications treatments helped (+) had surgical or office procedures to improve urinary symptoms (-) The following portions of the patient's history were reviewed and updated as appropriate: allergies, current medications, family history, medical history, social history, surgical history, and problem list. PAST MEDICAL/SURGICAL HISTORY MEDICAL Past Medical History: Diagnosis Date Diabetes Mellitus NOS Multiple Sclerosis (HCC) Pancreatitis Acute (HCC) SURGICAL Past Surgical History: Procedure Laterality Date CHOLECYSTECTOMY [...] N/A 2003 Repair of rectocele TUBAL LIGATION ALLERGIES Allergies Allergen Reactions Lactose GI intolerance Nitrofurantoin Hives (Reselect Reaction) Pollen Extracts Other (see comments) Prednisone Myalgia Sulfamethoxazole Other (see comments) Sulfamethoxazole-Trimethoprim Hives (Reselect Reaction) Trimethoprim Other (see comments) SOCIAL HISTORY Social History Socioeconomic History Marital status: Spouse name: Not on file Number of children: Not on file Years of education: Not on file Highest education level: Not on file Occupational History Not on file Tobacco Use Smoking status: Every Day Packs/day: 0.50 Types: Cigarettes Smokeless tobacco: Never Vaping Use Vaping Use: never used Substance and Sexual Activity Alcohol use: No Drug use: Yes Frequency: 7.0 times per week Types: Marijuana Sexual activity: Defer Other Topics Concern Not on file Social History Narrative Yary lives in a house with and daughter, granddaughters, and great grand daughter out on [place] in a big house. Pt disabled with MS at 31 years old. Social Determinants of Health Financial Resource Strain: High Risk (01/01/2023) Overall Financial Resource Strain (CARDIA) Difficulty of Paying Living Expenses: Hard Food Insecurity: Food Insecurity Present (01/01/2023) Hunger Vital Sign Worried About Running Out of Food in the Last Year: Often true Ran Out of Food in the Last Year: Often true Transportation Needs: Unmet Transportation Needs (01/01/2023) PRAPARE - Transportation Lack of Transportation (Medical): Yes Lack of Transportation (Non-Medical): Yes Physical Activity: Inactive (01/01/2023) Exercise Vital Sign Days of Exercise per Week: 0 days Minutes of Exercise per Session: 0 min Intimate Partner Violence: Not on file Housing Stability: Low Risk (01/01/2023) Housing Stability Housing: Living Situation: I have a steady place to live FAMILY HISTORY Family History Problem Relation Age of Onset Liver failure Mother Diabetes Mother Lung cancer Father SYSTEMS REVIEW REVIEW OF SYSTEMS OBJECTIVE PHYSICAL EXAMINATION Constitutional: She is oriented to person, place, and time. She appears well- developed and well-nourished. Neurological: She is alert and oriented to person, place, and time. Psychiatric: She has a normal mood and affect. Her behavior is normal. Judgment and thought contentnormal. LABS Lab Results Component Value Date/Time CREATININE 0.70 11/23/2022 05:47 AM CREATININE 0.85 11/22/2022 06:39 PM CREATININE 0.61 10/25/2022 06:20 PM CREATININE 0.62 10/24/2022 07:18 AM MICROBIOLOGY/CULTURE DATA Microbiology Results (last 30 days) No results found for the last [address] 11/22/22: Multiple pancreatic head calcifications consistent with chronic pancreatitis with upstream pancreatic duct dilation. Per my measurement the largest stone is 13 mm in the head of the pancreas in the secondary stone in the neck of the pancreas measuring 8 mm. IMPRESSION/REPORT/PLAN We discussed the use of shockwave lithotripsy in the management of pancreatic duct stones. We reviewed the details, risks, and benefits of this procedure, including the potential for hemorrhage, infection such as acute pancreatitis, and short and long-term changes to the pancreas including duct stenosis. We discussed that multiple, staged sessions of shockwave lithotripsy may be necessary for large and/or dense stone burden. We reviewed that pancreatic stones may respond differently to the procedure based on density, size, location, composition, and patient factors including body habitus. We discussed that ERCP would be coordinated and scheduled by the Gastroenterology team. PATIENT EDUCATION Ready to learn, no apparent learning barriers were identified; learning accepting preferences include listening. Explained diagnosis and treatment plan; patient expressed understanding of the content. Signed by: Ilene Cedillo APRN, C.N.P., D.N.P. 01/01/2023 9:15 AM CDT Associated attestation - Luis Andrew M.D., M.P.H. - 01/01/2023 10:26 AM CDT I personally saw the patient on the date of the encounter. I personally interpreted and reviewed with the patient the relevant laboratory and imaging findings. I discussed the patient with the Resident/BARRETT and agree with the note which accurately reflects my own findings and plan. 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 We reviewed the details, risks, and benefits of shockwave lithotripsy prior to ERCP, described below. We discussed that due to the bulky stone burden she may require more than one procedure to treat the stones completely.She wishes to proceed. We will coordinate scheduling with Gastroenterology. documented in this encounter Plan of Treatment Upcoming Encounters Date Type Department Care Team (Latest Contact Info) Description 04/26/2023 10:40 AM LEAVE MANAGER Virtual Visit Division of Gastroenterology in [place], [place] [address] [place] [phone] Jose Roberto Patterson M.D. [address] [place] [phone] 04/29/2023 9:30 AM LEAVE MANAGER Appointment Division of Gastroenterology in [place], [place] [address] [place] [phone] Jose Roberto Patterson M.D. [address] [place] [phone] Shane Becerra M.D. [address] [place] [phone] Discharge Disposition: Home or Self Care documented as of this encounter Visit Diagnoses Diagnosis Stone Pancreatic Duct- Primary Pancreatitis Chronic (HCC) documented in this encounter Additional Health Concerns Assessment Noted Time PHQ-9 Depression Total Score: 21 012 10:33 AM LEAVE MANAGER documented as of this encounter Care Teams Technician Anatomic Pathology Relationship Specialty Start Date End Date Elsewhere, Pcp PCP - General Internal Medicine 06/26/22 documented as of this encounter
--- OUTSIDE RECORDS SUMMARY | 2023-04-10 10:17 | XMS_ITS | Encounter Summary ---
Author Name Unknown Organization [facility] Address [address] [place] [phone] Care Team Providers Care Press Box Custodian Name Role Phone Elsewhere, Pcp Primary Care Provider Unavailabl e Encounter Details Date Type Department Care Team (Late st Contact Info) Description 01/01/2023 Clinical Communication Department of Urology in [place], [place] [address] [place] [phone] Luis Andrew M.D., M.P.H. [address] [place] [phone] Social History Tobacco Use Types Packs/Day Years [...] your living situation today? I have a [facility] place to live 01/01/2023 Sex and Gender Information Value Date Recorded Sex Assigned at Female 01/01/2023 9:08 AM CDT Gender Identity Female 01/01/2023 9:08 AM CDT Sexual Orientation Straight 01/01/2023 9: 08 AM CDT documented as of this encounter Miscellaneous Notes * Telephone Encounter - Anamika Smith, RCarlosNCarlos - 01/02/2023 10:26 AM CDT Called the patient and advised that I send a detailed portal message regarding her procedure on February [address] Andrew. I asked her to review this information is does have her surgical checklist with instructions on how to obtain her report time before surgery, fasting instructions and other helpful information to plan her procedure. Advised that the only preoperative testing we require at this time as a preoperative exam which our anesthesia department we will determine what if any additional testing she will require before surgery. Advised patient that she does need to withhold NSAIDs and aspirin medications 7 days before surgery to help reduce the risk of bleeding. She asked that there is going to be any sooner availability to do the procedure I told her that if there is a cancellation we will keep her in mind but this was especially coordinated for her with Dr. Andrew. Again, encouraged patient to check her portal message for additional details into let us know if she has any questions or concerns before surgery. She verbalized understanding no further questions or concerns * Telephone Encounter - Anamika Smith R.N. - 01/01/2023 2:44 PM CDT Vendor confirmed February 19, 2023 for procedure. Attempted to call the patient, she did not answer and her voicemail was full so I was unable to leave a message. Portal message sent advising of surgical plan for February [address] Andrew. EVELINA ordered. Ask patient to confirm that the date will work for her. Once confirmed, we will need to send inbasket to [facility] (DOS) or [facility] SCHEDUL[facility] (PASS) for ERCP coordination after surgery. Awaiting patient confirmation. * Telephone Encounter - Anamika Smith R.N. - 01/01/2023 2:39 PM CDT ----- Message from Anamika Smith R.N. sent at 01/01/2023 10:26 AM CDT ----- Regardin/21 Panc ESWL Patient tentatively listed for pancreatic ESWL on February [address] Andrew at [facility]. E-mail sent tovendor and nurse editorial manager, awaiting reply. Once confirmed, we will need to notify patient and place orders for EVELINA, send inbasket to [facility] (DOS) or [facility] (PASS) for ERCP coordination after surgery. documented in this encounter Plan of Treatment Upcoming Encounters Date Type Department Care Team (Latest Contact Info) Description 04/26/2023 10:40 AM POLITICAL SCIENCE INSTRUCTOR Virtual Visit Division of Gastroenterology in [place], [place] [address] [place] [phone] Jose Roberto Patterson M.D. [address] [place] [phone] 04/29/2023 9:30 AM POLITICAL SCIENCE INSTRUCTOR Appointment Division of Gastroenterology in [place], [place] [address] [place] [phone] Jose Roberto Patterson M.D. [address] [place] [phone] Shane Becerra M.D. [address] [place] [phone] Discharge Disposition: Home or Self Care documented as of this encounter Visit Diagnoses Diagnosis Stone Pancreatic Duct- Primary documented in this encounter Additional Health Concerns Assessment Noted Time PHQ-9 Depression Total Score: 21 012 10:33 AM POLITICAL SCIENCE INSTRUCTOR documented as of this encounter Care Teams Press Box Custodian Relationship Specialty Start Date End Date Elsewhere, Pcp PCP - General Internal Medicine 06/26/22 documented as of this encounter
--- OUTSIDE RECORDS SUMMARY | 2023-04-10 10:17 | XMS_ITS | Encounter Summary ---
Author Name Unknown Organization [facility] Address [address] [place] [phone] Care Team Providers Care Volunteer Assistant Name Role Phone Elsewhere, Pcp Primary Care Provider Unavailabl e Reason for Visit * Reason Comments Nicotine Dependence * Outpatient (Routine) - Closed Specialty Diagnoses / Procedures Referred By Contgriffin t Referred To Contact Pulmonary Medicine / Nicotine Dependence Diagnoses Pancreatitis Chronic (HCC) Jose Roberto Patterson M.D. [address] [place] [phone] [facility] Referral ID Status Reason Start Date Expiration Date Visits Re quested Visits Authorized [id number] Closed 12/27/2022 12/27/2023 1 1 Encounter Details Date Type Department Care Team (Late st Contact Info) Description 01/02/2023 11:00 AM CDT Telemedicine Department of Nicotine Dependence, [facility], in [place], [place] [address] [place] [phone] Jose Roberto Patterson M.D. [address] [place] [phone] Froy Can M.A. Nicotine Dependence Cigarettes (Primary Dx); Pancreatitis Chronic (HCC) Social History [...] your living situation today? I have a [facility] place to live 01/01/2023 Sex and Gender Information Value Date Recorded Sex Assigned at Female 01/01/2023 9:08 AM CDT Gender Identity Female 01/01/2023 9:08 AM CDT Sexual Orientation Straight 01/01/2023 9: 08 AM CDT documented as of this encounter Consult Notes * Froy Can M.A. - 01/02/2023 11:00 AM CDT SUBJECTIVE Consult conducted via real-time audio/video technology by Froy Can M.A. in [place], [place] at [facility] to the patient at home. CHIEF COMPLAINT / REASON FOR VISIT Tobacco use disorder HISTORY OF PRESENT ILLNESS Yary Prince is a 67 y.o. female whom attended a video consultation and is being evaluated for Tobacco Use Disorder. Patient has a pack history of 22.5 years and has been a lifetime smoker. She is motivated to quit smoking to improve her health and breathe better but states that it is somewhat difficult for her to think of herself as a non smoker and imagine what she would do instead. Patient also states she feels quitting smoking would reduce her pain as smoking is making my pain worse, I know that. Patient had previously quit for 10 years and relapsed following the of a close relative (her mother). She has tried numerous times and feels as though Chantix has been very helpful in coping with withdrawals and cravings. Patient has to be nicotine free to qualify for an upcoming surgery so her treatment options are limited to Chantix and Wellbutrin. Given her past history of success with Chantix, patient would like to use Chantix to cope with withdrawals and cravings. Tobacco Use History: Patient averages 10 cigarettes per day, and usually smokes within Within 5 minutes of waking. Yary started using tobacco regularly at the age of 13. She has made 2 to 5 quit attempts with her longest period of abstinence being 1 year or longer. Yary has tried stopping using various methods such as cold turkey and Chantix . Patient has relapsed due to life stressors, strong cravings, and stopped taking NRT/medication. The patient has experienced the following withdrawal symptoms: Craving, Desire to smoke. Patient reports specific triggers are: Being in a bar, After eating, Feeling lonely, Feeling scared, Feeling angry, Feeling sad, Feeling nervous, Feeling stressed, Feeling bored Motivation: Yary shares that she is somewhat motivated to stop using tobacco at this time. She rates importance of quitting at 10 Very Important/10 and her confidence in ability to quit at 10 Very Important /10. Her reasons to quit are to be able to live longer, to be around for family, to breathebetter, to improve health, and to have surgery. Potential Barriers to Quitting: Patient identifies multiple stressors and Implementation of behavioral changes to sustain cessation. OBJECTIVE Co-occurring Problems: The patient self-reported she does have a history of mental health issues. Alcohol Use Disorders Identification Test: The patient self-reported she does not drink alcohol. Fagerstrom Score is 3/10. Carbon monoxide was not assessed. Assessment of Medication Contraindications: Patient states no contraindications to varenicline. ASSESSMENT / PLAN 1. Tobacco use disorder. 2. Tobacco dependence counseling: Ms. Prince is planning to stop but not ready to set a quit date.. Time was spent discussing with the patient the neurobiology of nicotine addiction and the rationalefor using medications to help with cessation. Education was provided on the 7 FDA approved medications for cessation and all questions were answered. The following is consistent with assessment and patient preference: Varenicline Starter Pack (Chantix): one 0.5 mg tablet daily for three days, then increase to one 0.5 mg tablet twice a day for four days. After seven days, increase the dose to 1 mg twice a day for 3months. If not smoking at the end of three months, consider continuing the 1 mg pills for an additional 3 months. Take the pills with food and a large glass of water. Tapering is not necessary when discontinuing Varenicline. .We discussed the common side effects of varenicline, such as vivid dreams, headaches, insomnia and recommended to take the medication with food. The patient does not have any known contraindications to using varenicline, such as decreased kidney function. no contraindications BEHAVIORAL PLAN: Cognitive and behavorial techniques for coping with urges to smoke were reviewed as well as planning for triggers, changing routines, and getting support. Strategies such as avoid places, people or activities that seem to trigger urges to smoke, distraction, keep hands busy, use NRT, and take up a hobby were discussed to help manage urges and cravings. Follow Up: I encouraged Yary Prince to contact me with any questions or concerns. We have scheduled a follow-up appointment for December, via video. and Patient was provided with [facility] educational materials electronically. . Patient is ready to learn, No apparant barriers to learning were identified. Patient understands and agrees with plan. 30 minutes of our visit was spent on tobacco use disorder counseling. Froy Can M.A. 01/02/2023 2:47 PM CDT documented in this encounter Plan of Treatment Upcoming Encounters Date Type Department Care Team (Latest Contact Info) Description 04/26/2023 10:40 AM NUCLEAR REACTOR OPERATOR Virtual Visit Division of Gastroenterology in [place], [place] [address] [place] [phone] Jose Roberto Patterson M.D. [address] [place] [phone] 04/29/2023 9:30 AM NUCLEAR REACTOR OPERATOR Appointment Division of Gastroenterology in [place], [place] [address] [place] [phone] Jose Roberto Patterson M.D. [address] [place] [phone] Shane Becerra M.D. [address] [place] [phone] Discharge Disposition: Home or Self Care documented as of this encounter Visit Diagnoses Diagnosis Nicotine Dependence Cigarettes- Primary Pancreatitis Chronic (HCC) documented in this encounter Additional Health Concerns Assessment Noted Time PHQ-9 Depression Total Score: 21 012 10:33 AM NUCLEAR REACTOR OPERATOR documented as of this encounter Care Teams Volunteer Assistant Relationship Specialty Start Date End Date Elsewhere, Pcp PCP - General Internal Medicine 06/26/22 documented as of this encounter
--- OUTSIDE RECORDS SUMMARY | 2023-04-10 10:17 | XMS_ITS | Encounter Summary ---
Author Name Unknown Organization [facility] Address [address] [place] [phone] Care Team Providers Care Licensed Clinician Name Role Phone Elsewhere, Pcp Primary Care Provider Unavailabl e Encounter Details Date Type Department Care Team (Latest Contact Info) Description 12/27/2022 1:13 PM CDT Anesthesia Event Division of Gastroenterology in [place], [place] [address] [place] [phone] Gelacio Colunga APRN, COMMUNICATION CENTER OPERATOR [address] [place] [phone] Shane Carlos M.D. [address] [place] [phone] Anesthesia Record Procedure Summary Procedure Name Responsible Anesthesiologist Anesthesia Start Time Anesthesia Stop Time ENDOSCOPIC ULTRASOUND (EUS) Gelacio Colunga APRN, COMMUNICATION CENTER OPERATOR 12/27/22 1313 12/27/22 1419 Events Date Time Event Comment 12/27/2022 1240 1313 An Start Machine/Equipme nt Checked Infection Precautions Followed Procedure/Site Verified NPO Status Verified Supine Standard ASA Monitors Applied 1319 An Induction 1330 An Intubation 1330 Turnover to Proceduralist 1331 Proc Start 1355 Proc Fin 1406 Turnover to ANE Staff 1406 Airway Removal Criteria Met 1406 Extubation/Airway Removed 1406 an stop data 1419 An End I completed my handoff to the receiving staff during which we 1. Identified the patient 2. Identified the responsible provider 3. Reviewed the pertinent medical history 4. Discussed the surgical course 5. Reviewed intra-op anesthesia management and issues during anesthesia 6. Set expectations for post-procedure period 7. Allowed opportunity for questions and acknowledgement of understanding. Meds Name Total fentanyl injection 50 mcg/mL 50 mcg rocuronium 10 mg/mL injection 50 mg phenylephrine 100 mcg/mL injection 200 m cg sugammadex 100 mg/mL injection 200 mg glycopyrrolate 0.2 mg/mL injection 0.2 m g propofol 10 mg/mL infusion 318.6 mg propofol 10 mg/mL injection 120 mg levoFLOXacin 500 mg IVPB 500 mg Lactated Ringers Free Drip 700 mL * Agents No agents on file. * Blood No blood administrations on file. Lines, Drains, and Airways Type Details Placement Removal Peripheral IV Placement Date: 12/01 11/21; Placement Time: 1255; Catheter Size: 22 G; Orientation: Right; Location: Hand; Site Prep: Chlorhexidine (Preferred); Technique: Anatomical landmarks; Removal Date: 12/27/22; Removal Time: 153712/27/22 1255 by Mitzy Arce, R.NCarlos 12/27/22 1538 by Mitzy Arce, R.N. ETT Placement Date: 12/01 11/21; Placement Time: 133 (created via procedure documentation); Mask Ventilation: Not attempted; Technique: Video laryngoscopy; Type: Standard ETT; Single Lumen Tube Size: 7 mm; Cuffed: Yes; Location: Oral; Grade View: Grade 1; Insertion Attempts: 1; Placement Verification: Bilateral breath sounds, Positive ETCO2, Symmetrical chest wall movement; Removal Date: 12/27/22; Removal Time: 15312/27/22 1330 by Gelacio Colunga APRN, COMMUNICATION CENTER OPERATOR 12/27/22 1539 by Mitzy Arce, R.N. documented in this encounter Social History Tobacco Use Types Packs/Day Years [...] AM CDT documented as of this encounter OR Notes * Anesthesia Postprocedure Evaluation - Gelacio Colunga APRN, CRNA - 12/27/2022 2:20 PM CDT Patient: Yary Prince Procedure Summary Date: 12/27/22 Room / Location: Division of Gastroenterology in [place], [place] Anesthesia Start: 1313 Anesthesia Stop: 141 Procedure: ENDOSCOPIC ULTRASOUND (EUS) Diagnosis: Pancreatitis Chronic (HCC) Scheduled Providers: Jose Roberto Patterson M.D. Responsible Provider: Siddhartha Johnson APRN, CRNA Anesthesia Type: general ASA Status: 4 Anesthesia Type: general Last vitals Vitals Value Taken Time BP 123/65 12/27/22 1415 Temp 36.1 ??C 12/27/22 1413 Pulse 82 12/27/22 1416 Resp 14 12/27/22 1416 SpO2 94 % 12/27/22 1416 Vitals shown include unvalidated device data. Please reference Vitals flowsheet for most recent vital signs. Anesthesia Post Evaluation Patient Disposition: dismissal Cardiovascular status: hemodynamics (HR & BP) acceptable Respiratory status: patent airway with spontaneous effort Temperature: normothermic Oxygen requirements: room air Level of consciousness: awake Pain score: pain adequately controlled and/or at baseline Post Op nausea/vomiting: none Hydration status: euvolemic * Anesthesia Procedure Notes - Gelacio Colunga APRN, CRNA - 12/27/2022 2:16 PM CDTAssociated Order(s): Airway Airway Date/Time: 12/27/2022 1:30 PM Performed by: Gelacio Colunga APRN, CRNA Authorized by: Siddhartha Johnson APRN, CRNA Patient location during procedure: OR / Procedure Area PROCEDURE DETAILS: Mask difficulty assessment: not attempted Final airway type: video laryngoscope Laryngeal Manipulation: no Final best view of glottic structures - Cormack/Lehane Score: grade 1 ETT location: oral VL device: glide scope Erie scope blade size: 3 Tube size: 7 ETT distance at teeth/gum: 21 Oral tube type: standard ETT Cuffed: yes Number of attempt to successful placement: 1 Airway confirmation: bilateral breath sounds, positive ETCO2 and bilateral chest rise Other previous techniques attempted: none PRE PROCEDURE DETAILS: Pre evaluation for airway management: procedure Urgency: elective Preoxygenation: bag valve mask SEDATION / ANESTHESIA Anesthesia method: anesthesia POST PROCEDURE DETAILS: Procedure outcome: successful Airway event: no complications * Anesthesia Preprocedure Evaluation - Shane Carlos M.D. - 12/27/2022 12:39 PM CDT Preprocedure Anesthesia & H&P Assessment Procedure Summary Date/Time: 12/27/22 1245 Scheduled providers: Jose Roberto Patterson M.D. Procedure: ENDOSCOPIC ULTRASOUND (EUS) Diagnosis: Pancreatitis Chronic (HCC) [K86.1] Location: Division of Gastroenterology in [place], [place] Pertinent components of the patient's history including current problem list, medical history, surgical history, family history, social history, medications and allergies were reviewed. Present illness and pre-op diagnosis were confirmed. The planned surgery / procedure was verified with the patient / legal guardian. The patient's general health condition remains unchanged RELEVANT COMORBID CONDITIONS CV (+) Hypertension Essential Primary ENDO (+) Diabetes Mellitus Type 2 With Diabetic Neuropathy (HCC) GI (+) Gastroesophageal Reflux Disease NOS Nervous (+) Multiple Sclerosis (HCC) Digestive (+) Dysphagia (+) Pancreatitis Chronic Recurrent (HCC) Other (+) Weakness General OBJECTIVE PHYSICAL EXAMINATION Airway (HEENT) Mallampati: III TM Distance: >3 FB Neck ROM: Full Mouth Opening: >3 cm Upper Lip Bite Test Class: I Cardiovascular Rhythm: Regular Rate: Normal Cardiovascular Assessment: cardiovascular normal Functional Capacity: >4 METS Pulmonary Pulmonary Assessment: Clear General / Constitutional Constitutional Assessment: Normal General State of Health:: healthy appearing and calm ASSESSMENT / PLAN ANESTHESIA PLAN ASA: 4 Anesthesia Plan: MAC Patient seen and allergies reviewed, anesthesia plan and risks discussed directly with patient /legal guardian or through an staff interpreter. The use of blood products not discussed Approval to Proceed: approved for anesthesia documented in this encounter Plan of Treatment Upcoming Encounters Date Type Department Care Team (Latest Contact Info) Description 04/26/2023 10:40 AM INSOLE BOTTOM FILLER Virtual Visit Division of Gastroenterology in [place], [place] [address] [place] [phone] Jose Roberto Patterson M.D. [address] [place] [phone] 04/29/2023 9:30 AM INSOLE BOTTOM FILLER Appointment Division of Gastroenterology in [place], [place] [address] [place] [phone] Jose Roberto Patterson M.D. [address] [place] [phone] Shane Becerra M.D. [address] [place] [phone] Discharge Disposition: Home or Self Care documented as of this encounter Procedures Procedure Name Priority Date/Time Associated Diagnosis Comments LDA ANE ENDOTRACHEAL AIRWAY Routine 12/27/2022 1:30 PM CDT documented in this encounter Results * LDA ANE ENDOTRACHEAL AIRWAY (12/27/2022 1:30 PM CDT) Narrative Gelacio Colunga APRN, CRNA - 12/27/2022 1:30 PM CDT Gelacio Colunga APRN, CRNA ? 12/27/2022 ??2:17 PM Airway Date/Time: 12/27/2022 1:30 PM Performed by: Gelacio Colunga APRN COMMUNICATION CENTER OPERATOR Authorized by: Siddhartha Johnson APRN, CRNA ?? Patient location during procedure: OR / Procedure Area PROCEDURE DETAILS: Mask difficulty assessment: not attempted Final airway type: video laryngoscope Laryngeal Manipulation: no ?? Final best view of glottic structures - Cormack/Lehane Score: grade 1 ETT location: oral VL device: glide scope Erie scope blade size: 3 Tube size: 7 ETT distance at teeth/gum: 21 Oral tube type: standard ETT Cuffed: yes Number of attempt to successful placement: 1 Airway confirmation: bilateral breath sounds, positive ETCO2 and bilateral chest rise Other previous techniques attempted: none PRE PROCEDURE DETAILS: Pre evaluation for airway management: procedure Urgency: elective Preoxygenation: bag valve mask SEDATION / ANESTHESIA Anesthesia method: anesthesia POST PROCEDURE DETAILS: ? Procedure outcome: successful ?? Airway event: no complications Siddhartha Johnson APRN, NABOR ANESTHESIA ORD ERABLES documented in this encounter Visit Diagnoses Not on filedocumented in this encounter Administered Medications Inactive Administered Medications - up to 3 most recent administrations Medication Order MAR Action Action Date Dose Rate Site fentaNYL injection (SUBLIMAZE) intravenous, As needed, Starting on Duyen 12/27/22 at 1324, Anesthesia Intra-op Given 12/27/2022 1:24 PM CDT 50 mcg glycopyrrolate injection (ROBINUL) intravenous, As needed, Starting on Duyen 12/27/22 at 1350, Anesthesia Intra-op Given 12/27/2022 1:50 PM CDT 0.2 mg Lactated Ringer's intravenous, Continuous Infusion: Per Instructions PRN, Starting on Duyen 12/27/22 at 1319, Anesthesia Intra-op New Bag 12/27/2022 1:19 PM CDT levoFLOXacin in D5W IVPB (LEVAQUIN) intravenous, Administer over 60 Minutes, As needed, Starting on Duyen 12/27/22 at 1336, Anesthesia Intra-op Given 12/27/2022 1:36 PM CDT 500 mg phenylephrine injection intravenous, As needed, Starting on Duyen 12/27/22 at 1342, Anesthesia Intra-op Given 12/27/2022 1:42 PM CDT 200 mcg propofol 10 mg/mL infusion (DIPRIVAN) intravenous, Continuous Infusion: Per Instructions PRN, Starting on Duyen 12/27/22 at 1325, Anesthesia Intra-op New Bag 12/27/2022 1:25 PM CDT 100 mcg/kg/min 35.4 mL/hr propofoL injection (DIPRIVAN) intravenous, As needed, Starting on Duyen 12/27/22 at 1325, Anesthesia Intra-op Given 12/27/2022 1:25 PM CDT 120 mg rocuronium injection (ZEMURON) intravenous, As needed, Starting on Duyen 12/27/22 at 1325, Anesthesia Intra-op Given 12/27/2022 1:25 PM CDT 50 mg sugammadex injection (BRIDION) intravenous, As needed, Starting on Duyen 12/27/22 at 1352, Anesthesia Intra-op Given 12/27/2022 1:52 PM CDT 200 mg documented in this encounter Additional Health Concerns Assessment Noted Time PHQ-9 Depression Total Score: 21 05/31/ 012 10:33 AM INSOLE BOTTOM FILLER documented as of this encounter Care Teams Licensed Clinician Relationship Specialty Start Date End Date Elsewhere, Pcp PCP - General Internal Medicine 06/26/22 documented as of this encounter
--- OUTSIDE RECORDS SUMMARY | 2023-04-10 10:17 | XMS_ITS | Encounter Summary ---
Author Name Unknown Organization [facility] Address [address] [place] [address] Care Team Providers Care Call Center Supervisor Name Role Phone Elsewhere, Pcp Primary Care Provider Unavailabl e Encounter Details Date Type Department Care Team (Late st Contact Info) Description 01/07/2023 Orders Only Division of Community Internal Medicine at [address] [phone] Giorgio Ward M.D. [address] [place] [phone] Social History Tobacco Use Types Packs/Day Years [...] your living situation today? I have [facility] place to live 01/01/2023 Sex and Gender Information Value Date Recorded Sex Assigned at Female 01/01/2023 9:08 AM CDT Gender Identity Female 01/01/2023 9:08 AM CDT Sexual Orientation Straight 01/01/2023 9: 08 AM CDT documented as of this encounter Plan of Treatment Upcoming Encounters Date Type Department Care Team (Latest Contact Info) Description 04/26/2023 10:40 AM AUDIT PARTNER Virtual Visit Division of Gastroenterology in [place], [place] [address] [place] [phone] Jose Roberto Patterson M.D. [address] [place] [phone] 04/29/2023 9:30 AM AUDIT PARTNER Appointment Division of Gastroenterology in [place], [place] [address] [place] [phone] Jose Roberto Patterson M.D. [address] [place] [phone] Shane Becerra M.D. [address] [place] [phone] Discharge Disposition: Home or Self Care documented as of this encounter Visit Diagnoses Not on filedocumented in this encounter Additional Health Concerns Assessment Noted Time PHQ-9 Depression Total Score: 21 012 10:33 AM AUDIT PARTNER documented as of this encounter Care Teams Call Center Supervisor Relationship Specialty Start Date End Date Elsewhere, Pcp PCP - General Internal Medicine 06/26/22 documented as of this encounter
--- OUTSIDE RECORDS SUMMARY | 2023-04-10 10:18 | XMS_ITS | Encounter Summary ---
Author Name Unknown Organization [facility] Address [address] [place] [address] Care Team Providers Care [address] Justice Name Role Phone Elsewhere, Pcp Primary Care Provider Unavailabl e Reason for Visit * Reason Onset Date Comments was inpatient and left of ow n decision, wants readmitted 10/25/2022 Admitted 10-23-22, left the hospital 10-24-22 Encounter Details Date Type Department Care Team (Late st Contact Info) Description 10/25/2022 Nurse Triage Department of Family Medicine in [place], [place] [address] [place] [phone] Tiki Adams, R.N. was inpatient and left of own decision, wants readmitted (Admitted 10-23-22, left the hospital 10-24-22) Social History Tobacco Use Types Packs/Day Years [...] encounter Miscellaneous Notes * Telephone Encounter - Tiki Adams R.N. - 10/25/2022 4:15 PM CDT Chief Complaint / Reason for Call Patient is a 67 y.o. female calling regarding was inpatient and left of own decision, wants readmitted (Admitted 10-23-22, left the hospital 10-24-22). Assessment Concern: ongoing chest pain and shortness of breath, ongoing abdominal pain and weakness Present for: left her inpatient status yesterday and went to home Home cares tried: nothing new from her normal medications Calling to request: re-admission to the hospital; The recommended disposition is No disposition on file.. Reason for Disposition Patient sounds very sick or weak to the triager Protocols used: Post-Hospitalization Follow-up [id number] Care Advice Patient/Caregiver understands and will follow care advice?: Yes, able to teach back GO TO ED NOW ANOTHER ADULT SHOULD DRIVE: * It is better and safer if another adult drives instead of you. Should you experience onset of trouble breathing, bluish lips or face, pain pressure or tightness in the chest jaw or arm, new confusion, fever concerns or inability to rouse or any other symptom youfeel is urgent, please present to your nearest emergency department for immediate care. documented in this encounter Plan of Treatment Upcoming Encounters Date Type Department Care Team (Latest Contact Info) Description 04/26/2023 10:40 AM THREAD DRAWER Virtual Visit Division of Gastroenterology in [place], [place] [address] [place] [phone] Jose Roberto Patterson M.D. [address] [place] [phone] 04/29/2023 9:30 AM THREAD DRAWER Appointment Division of Gastroenterology in [place], [place] [address] [place] [phone] Jose Roberto Patterson M.D. 200 [place] [phone] Shaen Becerra M.D. 200 [place] [phone] Discharge Disposition: Home or Self Care documented as of this encounter Visit Diagnoses Not on filedocumented in this encounter Additional Health Concerns Assessment Noted Time PHQ-9 Depression Total Score: 21 012 10:33 AM THREAD DRAWER documented as of this encounter Care Teams [address] Justice Relationship Specialty Start Date End Date Elsewhere, Pcp PCP - General Internal Medicine 06/26/22 documented as of this encounter
--- OUTSIDE RECORDS SUMMARY | 2023-04-10 10:18 | XMS_ITS | Encounter Summary ---
Author Name Unknown Organization [facility] Address [address] [place] [address] Care Team Providers Care Body Shop Floorperson Name Role Phone Elsewhere, Pcp Primary Care Provider Unavailabl e Reason for Referral * Outpatient (Routine) - Closed Specialty Diagnoses / Procedures Referred By Olivia gonzalez Referred To Contact Diagnoses Pancreatitis Chronic (HCC) Procedures DX Abdomen 4 Views DX Kidneys Ureters Bladder Jeanie Carter M.B.B.S., M.S. [address] [place] [address] [facility] Referral ID Status Reason Start Date Expiration Date Visits Re quested Visits Authorized [id number] Closed 12/13/2022 12/13/2023 1 1 Encounter Details Date Type Department Care Team (Latest Contact Info) Description 12/12/2022 3:00 PM CDT Telemedicine Division of Gastroenterology in [place], [place] [address] [place] [address] Peewee Wilcox M.S.N., R.N. Pancreatitis Chronic (HCC) (Primary Dx) Social History Tobacco Use Types Packs/Day Years [...] AM CDT documented as of this encounter H&P Notes * Peewee Wilcox M.S.N., R.N. - 12/12/2022 3:00 PM CDT Reason for Visit Gastroenterology and Hepatology: Pancreas Clinic RN Pre-Visit. Patient contacted [facility] requesting on-campus appointment; pre-visit was scheduled following that request. Completed administrative pre-visit discussion to better understand patient goals and the needed patient itinerary for the requested on-site visit. This pre-visit does not establish a long-term relationship. This interview occurred via real-time audio/video technology by Francesco Mann., R.N. at [facility] to the patient in the patient's home. The information below is based on review of available medical records and a virtual conversation with the patient. History of Present Illness Ms. Prince is a 67 y.o. female who is being interviewed for a pre-visit encounter. Our records indicate that Ms. Prince is seeking an appointment at [facility] for chronic pancreatitis. Ms. Prince was previously seen in the Pancreas Clinic at [facility] in January 2011 for evaluation of pancreatitis. Her last evaluation at [facility] was with Debra Otto APRN, [facility] in December 2014.Ms. Prince has had abdominal pain since about 1999 and was first diagnosed with pancreatitis in 2006.She's had several admissions over the years for her recurrent abdominal pain. Over the last 6 months, she's had significant pain and notes she is not getting much help. She's been receiving care [facility] in [place], as well as at [facility]. Prior to the last 6months, she had not had an episode of pancreatitis since 2014. Please see below for current symptoms and imaging over the last 6 months. The patient states goals for this visit are to have a stent placed so she can get better. Current symptoms: - Abdominal pain: Constant, located under left breast/ribs, wraps around to the back. She also experiences pain in the RUQ under her breast. She rates the pain an 8/10 (10=worst). Oxycodone and ice help with the pain. Movement makes it worse. - Indigestion: Nausea - Back Pain: Associated with abdominal pain, underneath left shoulder blade - Stools/change in bowel habits: constipation, typically has a bowel movement once a day that is difficult to pass, has seen oil/greasy stools in the past but not currently - Weight loss: 30 pounds over the last year Most recent episode of pancreatitis: Date: 09/06/2022 Labs: Lipase: 57 U/L (ULN 60) Amylase: None Calcium: 9.2 mg/dL Triglycerides: None AST: 15 U/L ALT: 14 U/L Alk Phos.: 96 U/L Bilirubin: 0.3 mg/dL Imagin09/06/2022 CT Abdomen Pelvis with IV Contrast Impression: Findings most consistent with acute on chronic pancreatitis involving the pancreatic uncinate process, similar to 06/26/2022. No loculated fluid collection. Possible mild colitis involving the right hemicolon. No bowel obstruction. Imaging within the last 6 months (CT/MRI/MRCP): 11/22/2022 CT Abdomen Pelvis with IV Contrast Impression: Findings suggestive of chronic pancreatitis. No CT evidence of acute pancreatitis or drainable fluid collections. However, low-grade pancreatitis cannot be excluded by CT scan. Moderate colonic stool burden. 10/19/2022 CT Abdomen Pelvis with IV Contrast Impression: Sequelae of chronic pancreatitis with multiple parenchymal and intraductal calcifications resultingin upstream dilation of the main pancreatic duct. No peripancreatic fluid or inflammatory stranding. 06/26/2022 CT Abdomen Pelvis with IV Contrast Impression: Findings compatible with focal acute pancreatitis in the uncinate process. Additional changes of chronic pancreatitis. Mild extrahepatic biliary ductal dilatation could be physiologic postcholecystectomy correlation LFTs is recommended. Normal appendix. Borderline wall thickening of the sigmoid colon. Considerations include mild colitis. Endoscopic procedures/interventions (date/impression): EUS: 01/31/2015 Impression: A medium-sized diverticulum was found in the area of the papilla. A pancreatic stent was seen in the ampulla. The region of the celiac plexus and celiac ganglia was visualized. There was no sign of significant endosonographic abnormality in the left adrenal gland. No lymphadenopathy seen. There was abnormal echogenicity in the left lobe of the liver. This was hyperechoic. Endosonographic imaging in the common bile duct showed no stones, no sludge and no stent. Endosonographic imaging in the entire pancreas showed no chronic pancreatitis and no stones. The pancreatic duct had a prominently branched endosonographic appearance in the pancreatic head. The pancreatic duct measured up to 5 mm in diameter. 07/30/2013 Impression: Pancreatic parenchymal changes suggestive of fatty infiltration. No evidence of chronic pancreatitis. There was no sign of significant pathology in the main pancreatic duct. No stone, no calcification,obstruction or dilatation. Surgically absent gallbladder. Abnormal echogenicity in the left lobe of the liver, suggestive of fatty infiltration. Normal lymph nodes were visualized. EGD: 07/30/2013 Impression: No gross lesions in the esophagus. No gross lesions in the stomach. Biopsies obtained per request. Normal duodenal bulb and 2nd part of the duodenum. Biopsies obtained per request. Diagnosis: A. Duodenum, 2nd part, endoscopic biopsy: Duodenal mucosa with reactive epithelial changes and mildly increased eosinophils predominantly in lamina propria of unknown significance. No evidence of celiac disease, Whipple's disease, or Giardia identified. B. Stomach, antrum, body, and incisura, endoscopic biopsy: Mild reactive gastropathy. Antral mucosa shows reactive foveolar hyperplasia, negligible inflammation, and no Helicobacter pylori. These changes suggest chemical-type injury such as can be seen with nonsteroidal anti-inflammatory drugs and bile reflux. Normal fundic-type mucosa. ERCP: 08/20/2013 Impression: Mild narrowing of the pancreatic sphincterotomy, dilated and prophylactic pancreas stent placed. Prior biliary endoscopic sphincterotomy appeared open. Reactive mucosal changes were seen around the pancreatic os, to be on the safe side I obtained 4 biopsies with a pediatric forceps and submitted to histology. Diagnosis: A. Biliary system, papilla, endoscopic biopsy: Chronic mucosal inflammation with reactive epithelial change. No dysplasia. 04/12/2011 Impression: Duodenal diverticulum. Petite major papilla subjectively snug biliary and pancreatic os. Mildly dilated bile duct and pancreatic duct. Postcholecystectomy anatomy. Extensive retained food in the duodenum and stomach, suspect gastroparesis. Biliary and pancreatic sphincterotomies, prophylactic pancreatic stent placement. History of any renal impairment: Denies. 11/22/2022 Creatinine: 0.85 mg/dL; eGFR >90. History of abdominal or weight loss surgery: Cholecystectomy, hysterectomy, tubal ligation Pain management: Oxycodone 10 mg tablets TID Pancreatic enzymes: She has been prescribed Creon but is not taking due to the cost. History of diabetes: diabetes type 2, insulin dependent. She notes difficulty managing her blood sugar levels. Severe cardiac or pulmonary disease (Pacemaker?): Denies Use of blood thinners: Denies Alcohol: Denies Tobacco: 0.5 pack per day for the last 10 years Family history of pancreatitis, pancreas cancer or other cancers: Mother - pancreas problems Father - lung cancer Any genetic testing: Denies Does the patient have any devices, implants, or injuries involving metal? Denies Other medical/surgical information: multiple sclerosis, diabetes type 2, GERD, hypertension, hyperlipidemia, bipolar disorder Claustrophobia/contraindications to imaging: Claustrophobia but able to tolerate MRIs. Patient information will be shared with the pancreas care team to determine a plan for the patient.Patient informed we may contact their prior care facilities to obtain further records for their diagnosis and past history, specifically pathology reports and biopsy slides, CT's, and/or MRI images. There could be a charge for this review. Patient agrees with this request. Informed patient that following discussion of a plan our scheduling team will contact her within 2-3 business days to discussappointment scheduling if appropriate. Patient to continue to direct health-related questions to local care provider until seen for consultation appointment. The following information also shared with the patient: Patient aware and agreeable to charges for re-reads of externally completed imaging. documented in this encounter Miscellaneous Notes * Addendum Note - Peewee Wilcox M.S.N., R.N. - 12/12/2022 3:00 PM CDTAddended by: PEEWEE WILCOX on: 12/13/2022 11:27 AM Modules accepted: Orders * Addendum Note - Jeanie Carter M.B.B.S., M.S. - 12/12/2022 3:00 PM CDT Addended by: JEANIE CARTER on: 12/13/2022 11:54 AM Modules accepted: Orders documented in this encounter Plan of Treatment Upcoming Encounters Date Type Department Care Team (Latest Contact Info) Description 04/26/2023 10:40 AM SPINNER FRAME Virtual Visit Division of Gastroenterology in [place], [place] [address] [place] [phone] Jose Roberto Patterson M.D. [address] [place] [phone] 04/29/2023 9:30 AM SPINNER FRAME Appointment Division of Gastroenterology in [place], [place] [address] [place] [phone] Jose Robetro Patterson M.D. [address] [place] [phone] Shane Becerra M.D. [address] [place] [phone] Discharge Disposition: Home or Self Care documented as of this encounter Results * DX Abdomen 4 Views (12/26/2022 2:53 PM CDT) Anatomical Region Laterality Modality Abdomen, Abdominal RST LOS, Abdominal ARZ LOS, Abdominal FLA LOS N/A Digital Radiography 12/26/2022 2:59 PM CDT Impressions 12/26/2022 3:06 PM CDT Correlated with CT of the abdomen and pelvis 11/22/2022. Multiple calcifications anterior to the right transverse process at L3, corresponding to the pancreatic ductal calculi. Nonobstructive bowel gas pattern. Aortic calcifications. Narrative 12/26/2022 3:06 PM CDT EXAM: ??DX ABDOMEN 4 VIEWS Procedure Note Lew Sheldon M.D. - 12/26/2022 EXAM: DX ABDOMEN 4 VIEWS IMPRESSION: Correlated with CT of the abdomen and pelvis 11/22/2022. Multiplecalcifications anterior to the right transverse process at L3, corresponding to thepancreatic ductal calculi. Nonobstructive bowel gas pattern. Aortic calcifications. Jeanie Juan, M.S. IMG DIAGNO STIC IMAGING PROCEDURES documented in this encounter Visit Diagnoses Diagnosis Pancreatitis Chronic (HCC)- Primary Pancreatitis Chronic (HCC) documented in this encounter Additional Health Concerns Assessment Noted Time PHQ-9 Depression Total Score: 21 05/31/ 012 10:33 AM SPINNER FRAME documented as of this encounter Care Teams Body Shop Floorperson Relationship Specialty Start Date End Date Elsewhere, Pcp PCP - General Internal Medicine 06/26/22 documented as of this encounter
--- OUTSIDE RECORDS SUMMARY | 2023-04-10 10:18 | XMS_ITS | Encounter Summary ---
Author Name Unknown Organization [facility] Address [address] [place] [address] Care Team Providers Care Training And Quality Manager Name Role Phone Elsewhere, Pcp Primary Care Provider Unavailabl e Reason for Referral * Outpatient (Routine) - Closed Specialty Diagnoses / Procedures Referred By Olivia gonzalez Referred To Contact Diagnoses Pancreatitis Chronic (HCC) Procedures Endoscopic ultrasound (EUS) Jose Roberto Patterson M.D. [address] [place] [phone] [facility] Referral ID Status Reason Start Date Expiration Date Visits Re quested Visits Authorized [id number] Closed 12/27/2022 12/27/2023 1 1 Reason for Visit * Outpatient (Routine) - Closed Specialty Diagnoses / Procedures Referred By Olivia gonzalez Referred To Contact Diagnoses Pancreatitis Chronic (HCC) Procedures Endoscopic ultrasound (EUS) Jose Roberto Patterson M.D. [address] [place] [address] [facility] Referral ID Status Reason Start Date Expiration Date Visits Re quested Visits Authorized [id number] Closed 12/27/2022 12/27/2023 1 1 Encounter Details Date Type Department Care Team (Latest Contact Info) Description 12/27/2022 9:56 AM CDT - 12/27/2022 11:59 PM CDT Hospital Encounter Division of Gastroenterology in [place], [place] 200 [place] [address] Jose Roberto Patterson M.D. [address] [place] [phone] Pancreatitis Chronic (HCC) Discharge Disposition: Home or Self Care Social History Tobacco Use Types Packs/Day Years Used Date Smoking Tobacco: Every Day Cigarettes 0.5 Smokeless Tobacco: Never Tobacco Cessation:Ready to Q [...] Sign Reading Time Taken Comments Blood Pressure 128/113 12/27/2022 3:10 PM CDT Pulse 75 12/27/2022 3:25 PM CDT Temperature 36.4 ??C (97.5 ??F) 12/27/2022 3:10 PM CD T Respiratory Rate 25 12/27/2022 3:25 PM CDT Oxygen Saturation 91% 12/27/2022 3:25 PM CDT Inhaled Oxygen Concentration - - Weight - - Height - - Body Mass Index - - documented in this encounter Medications at Time of Discharge Medication Sig Dispensed Refills Start Date End Date Accu-Chek Guide test strips 3 (three) times a day. for testing 0 07/25/2022 amLODIPine (NORVASC) 5 mg tablet Take 1 tablet (5 mg total) by mouth daily. 90 tablet 2 09/09/[address] tablet Take 325 mg by mouth every 6 (six) hours as needed for pain. 0 cyclobenzaprine (FLEXERIL) 10 mg tablet Take 10 mg by mouth 3 (three) times a day as needed. 0 07/26/2022 donepeziL (ARICEPT) 5 mg tablet Take by mouth daily. 0 05/17/2021 DULoxetine (CYMBALTA) [address] capsule Take 30 mg by mouth every morning. 0 losartan (COZAAR) 100 mg tablet Take [...] exceed 200 mg in 24 hours. 0 Accu-Chek Guide Me Glucose Mtr misc USE DIRECTED, TESTING THREE TIMES A DAY 0 07/25/2022 02/19/2023 albuterol 90 mcg/actuation inhaler Inhale 2 puffs every 4 (four) hours as needed for wheezing or shortness of breath. Q4-6 hrs as needed 0 01/01/2023 baclofen (LIORESAL) 10 mg tablet Take by [...] by mouth at bedtime. 0 01/14/2015 02/19/2023 gabapentin (NEURONTIN) 300 mg capsule take 1 capsule by oral route twice a day 0 05/17/2021 02/19/2023 glipiZIDE (GLUCOTROL) 10 mg tablet Take 20 mg by mouth at bedtime. 0 02/19/2023 insulin glargine (LANTUS) 100 unit/mL injection Inject 20 Units under the skin. 0 09/17/2022 02/19/2023 rdwfrynlkytg-okvnnvpr-EU -lutein (CENTRUM SILVER) 400-250 mcg per chewable tablet Chew 1 tablet at bedtime. 0 01/01/2023 documented as of this encounter Plan of Treatment Upcoming Encounters Date Type Department Care Team (Latest Contact Info) Description 04/26/2023 10:40 AM AGRICULTURE WORKER Virtual Visit Division of Gastroenterology in [place], [place] [address] [place] [phone] Jose Roberto Patterson M.D. [address] [place] [phone] 04/29/2023 9:30 AM AGRICULTURE WORKER Appointment Division of Gastroenterology in [place], [place] [address] [place] [phone] Jose Roberto Patterson M.D. [address] [place] [phone] Shane Becerra M.D. [address] [place] [phone] Discharge Disposition: Home or Self Care Scheduled Orders Name Type Priority Associated Diagnoses Orde r Schedule Glucose, POCT Point of Care Testing-Docked Device Routine Routine lab collecti on (next collection) for 1 Occurrences starting 12/27/2022 until 12/27/2022 documented as of this encounter Procedures Procedure Name Priority Date/Time Associated Diagnosis Comments UPPER EUS Routine 12/27/2022 1:16 PM CDT Pancreatitis Chronic (HCC) ENDOSCOPIC ULTRASOUND (EUS) Routine 12/27/2022 1:16 PM CDT Pancreatitis Chronic (HCC) GLUCOSE POCT, B Routine 12/27/2022 1:00 PM CDT documented in this encounter Results * Upper EUS (12/27/2022 1:16 PM CDT) 12/27/2022 1:16 PM CDT Impressions [facility] - 12/27/2022 3:34 PM CDT Post-op Diagnoses: ? - Findings suggestive of pancreatic stones were identified in the ? pancreatic head and genu of the pancreas. ? - The pancreatic duct had a dilated endosonographic appearance in the ? pancreatic head and body of the pancreas. The pancreatic duct measured ? up to 11 mm in diameter. ? - Atherosclerosis of the descending thoracic aorta was seen ? endosonographically. ? - Celiac plexus block performed as above. Narrative [facility] - 12/27/2022 3:34 PM CDT [facility] GI Patient Name: Yary Prince Date of : 1955 Age: 67 Gender: Female Procedure Date: 12/27/2022 Procedure: ? Upper EUS Providers: ? Jose Roberto Patterson MD Referring Provider: ?Jose Roberto Patterson MD Pre-op Diagnoses: ?Dilated pancreatic duct on CT scan, Chronic ? pancreatitis, Celiac plexus block for pain secondary ? to chronic pancreatitis Recommendation: ? - Discharge patient to home. ? - Resume previous diet. ? - Observe patient's clinical course. ? - Return to referring physician as previously scheduled. Findings: ? ENDOSONOGRAPHIC FINDING: : ? A few hyperechoic foci were noted in the head/body of the pancreas. The ? largest stone burden was in the head of the pancreas measuring 16 mm. ? Another stone was noted in the genu of the pancreas measuring 8 mm. ? The pancreatic duct had a dilated endosonographic appearance in the ? pancreatic head and body of the pancreas. The pancreatic duct measured ? up to 11 mm in diameter. ? Endosonographic examination of the descending thoracic aorta suggested ? the presence of moderate to severe atherosclerotic changes. These ? atherosclerotic changes were not occlusive. ? Visualized portions of the left lobe of the liver, spleen, left adrenal ? gland, left kidney and common bile duct were normal on ultrasound ? examination. No abnormal-appearing lymph nodes were identified in the ? mediastinum or abdomen. ? Celiac plexus block was performed. The region of the celiac plexus and ? celiac ganglia was identified endosonographically with Color Doppler ? imaging, using the take-off of the celiac trunk from the anterior aspect ? of the aorta as the main anatomical landmark. Color Doppler guidance was ? also used to confirm a lack of significant vascular structures within ? the injection needle path. Using a transgastric approach, a 22 gauge ? needle was advanced to the area of the celiac plexus. Needle aspiration ? was performed prior to injection to exclude entry into a blood vessel. A ? total of 2 mL of 0.25% bupivacaine and 80 mg of triamcinolone (40 mg/mL) ? were injected for the celiac plexus block. The needle was then withdrawn. Procedural Details: ? The patient was seen, evaluated, history reviewed, airway and heart-lung ? exams were performed by licensed provider and were satisfactory for ? planned level of sedation care. ? The risks, benefits and alternatives for the procedure and sedation were ? discussed and informed consent was obtained. A procedural pause was ? conducted in the presence of assisting personnel to verify the correct ? patient identity and procedure to be performed. Throughout the ? procedure, the patient's blood pressure, pulse, and oxygen saturations ? were monitored continuously. The Endosonoscope was introduced through ? the mouth, and advanced to the second part of duodenum. The upper EUS ? was accomplished without difficulty. The patient tolerated the procedure ? well. Complications: ? No immediate complications. Estimated Blood Loss: ?None. Attending Participation: I personally performed the entire procedure. Jose Roberto Patterson MD 12/27/2022 2:17:53 PM This report has been signed electronically. Number of Addenda: 0 Note Initiated On: 12/27/2022 1:16 PM Jose Roberto Patterson M.D. GI PROCEDURE O RDERABLES Performing Organization Address [facility] Co de Phone Number [employer] NA * (ABNORMAL) Glucose, POCT (12/27/2022 1:00 PM CDT) Glucose, POCT, B 237(H) 70 - 140 mg/dL 12/27/2022 1:04 PM CDT PCMO Site Capillary 12/27/2022 1:04 PM CDT PCMO Blood 12/27/2022 1:00 PM CDT 12/27/2022 1:05 PM CDT Unknown Provider LAB POCT ORDERABLES- MANUAL Performing Organization Address [facility] Co de Phone Number [facility] [address] [facility] [address] [place] [address] documented in this encounter Visit Diagnoses Diagnosis Pancreatitis Chronic (HCC) documented in this encounter Administered Medications Inactive Administered Medications - up to 3 most recent administrations Medication Order MAR Action Action Date Dose Rate Site oxyCODONE IR tablet 10 mg (ROXICODONE) 10 mg, oral, Every 4 hours PRN, moderate pain or score 4-6 of 10, Starting on Duyen 12/27/22 at 1244 Given 12/27/2022 12:47 PM CDT 10 mg triamcinolone acetonide injection (KENALOG-40) As needed, Starting on Duyen 12/27/22 at 1350, Intra-Op Given 12/27/2022 1:50 PM CDT 80 mg documented in this encounter Additional Health Concerns Assessment Noted Time PHQ-9 Depression Total Score: 21 012 10:33 AM AGRICULTURE WORKER documented as of this encounter Care Teams Training And Quality Manager Relationship Specialty Start Date End Date Elsewhere, Pcp PCP - General Internal Medicine 06/26/22 documented as of this encounter
--- OUTSIDE RECORDS SUMMARY | 2023-04-10 10:18 | XMS_ITS | Encounter Summary ---
Author Name Unknown Organization [facility] Address [address] [place] [address] Care Team Providers Care Forging Dies Final Finisher Name Role Phone Elsewhere, Pcp Primary Care Provider Unavailabl e Reason for Visit * Reason Onset Date Comments Previsit Preparation 11/09/2022 Pancreas 11/09/2022 [facility] 11/09/2022 [facility] Encounter Details Date Type Department Care Team (Latest Contact Info) Description 11/09/2022 Clinical Communication Division of Gastroenterology in [place], [place] [address] [place] [address] Provider, Unknown Previsit Preparation; Pancreas; [facility] ([facility]/) Social History Tobacco Use Types Packs/Day Years [...] (Latest Contact Info) Description 04/26/2023 10:40 AM ANNUAL CAMPAIGN MANAGER Virtual Visit Division of Gastroenterology in [place], [place] [address] [place] [phone] Jose Roberto Patterson M.D. [address] [place] [phone] 04/29/2023 9:30 AM ANNUAL CAMPAIGN MANAGER Appointment Division of Gastroenterology in [place], [place] [address] [place] [phone] Jose Roberto Patterson M.D. [address] [place] [phone] Shane Becerra M.D. [address] [place] [phone] Discharge Disposition: Home or Self Care documented as of this encounter Visit Diagnoses Not on filedocumented in this encounter Additional Health Concerns Assessment Noted Time PHQ-9 Depression Total Score: 21 05/31/ 012 10:33 AM ANNUAL CAMPAIGN MANAGER documented as of this encounter Care Teams Forging Dies Final Finisher Relationship Specialty Start Date End Date Elsewhere, Pcp PCP - General Internal Medicine 06/26/22 documented as of this encounter
--- OUTSIDE RECORDS SUMMARY | 2023-04-10 10:18 | XMS_ITS | Encounter Summary ---
Author Name Unknown Organization [facility] Address [address] [place] [address] Care Team Providers Care Wild Animal Caretaker Name Role Phone Elsewhere, Pcp Primary Care Provider Unavailabl e Reason for Visit * Outpatient (Routine) - Closed Specialty Diagnoses / Procedures Referred By Contact Referred To Contact Gastroenterology and Hepatology Diagnoses Abdominal Pain Nausea And Vomiting Frequency Urinary Urgency Urinary Pancreatitis Chronic (HCC) Abnormal Findings On Diagnostic Imaging Of Other Abdominal Regions Including Retroperitoneum Jackson Wren P.A.-C. [address] [place] [phone] [facility] Referral ID Status Reason Start Date Expiration Date Visits Re quested Visits Authorized [id number] Closed 10/19/2022 10/18/2025 1 1 Encounter Details Date Type Department Care Team (Latest Contact Info) Description 10/24/2022 8:20 AM CDT Internal E-Consult Division of Gastroenterology in [place], [place] [address] [place] [phone] Maria L Wilburn M.D. [address] [place] [phone] Abdominal Pain; Nausea And Vomiting; Frequency Urinary; Urgency Urinary; Pancreatitis Chronic (HCC); Abnormal Findings On Diagnostic Imaging Of Other Abdominal Regions Including Retroperitoneum Social History Tobacco Use Types Packs/Day Years [...] as of this encounter Consult Notes * Maria L Wilburn M.D. - 10/24/2022 8:20 AM CDT The patient was not personally interviewed or examined. The history and examination findings are based on the clinical documentation provided and/or discussed with a physician or provider who had personally interviewed and examined the patient. Referring Physician: Jackson Wren P.A.-C. CHIEF COMPLAINT / REASON FOR VISIT Yary Prince is a 67 y.o. female. Specific clinical question: HISTORY OF PRESENT ILLNESS Internal E consult from the ED for a patient with nausea vomiting and pain. This consult order was put in October 19. It was scheduled for me to complete on October 24. On October 23 the patient was admitted into the hospital and therefore this consult is no longer needed. Jennifer Wilburn MD 10/24/2022 documented in this encounter Plan of Treatment Upcoming Encounters Date Type Department Care Team (Latest Contact Info) Description 04/26/2023 10:40 AM INSURANCE AUDITOR Virtual Visit Division of Gastroenterology in [place], [place] [address] [place] [phone] Jose Roberto Patterson M.D. [address] [place] [phone] 04/29/2023 9:30 AM INSURANCE AUDITOR Appointment Division of Gastroenterology in [place], [place] [address] [place] [address] Jose Roberto Patterson M.D. [address] [place] [address] Shane Becerra M.D. [address] [place] [phone] Discharge Disposition: Home or Self Care documented as of this encounter Visit Diagnoses Diagnosis Abdominal Pain Nausea And Vomiting Frequency Urinary Urgency Urinary Pancreatitis Chronic (HCC) Abnormal Findings On Diagnostic Imaging Of Other Abdominal Regions Including Retroperitoneum documented in this encounter Additional Health Concerns Assessment Noted Time PHQ-9 Depression Total Score: 21 05/31/ 012 10:33 AM INSURANCE AUDITOR documented as of this encounter Care Teams Wild Animal Caretaker Relationship Specialty Start Date End Date Elsewhere, Pcp PCP - General Internal Medicine 06/26/22 documented as of this encounter
--- OUTSIDE RECORDS SUMMARY | 2023-04-10 10:18 | XMS_ITS | Encounter Summary ---
Author Name Unknown Organization [facility] Address [address] [place] [address] Care Team Providers Care 21 Dealer Name Role Phone Elsewhere, Pcp Primary Care Provider Unavailabl e Reason for Visit * Reason Onset Date Comments Appt Request 12/27/2022 Encounter Details Date Type Department Care Team (Late st Contact Info) Description 12/27/2022 Clinical Communication Department of Urology in [place], [place] [address] [place] [phone] Luis Andrew M.D., M.P.H. [address] [place] [phone] Appt Request Social History Tobacco Use Types Packs/Day [...] your living situation today? I [facility] a [facility] to live 01/01/2023 Sex and Gender Information Value Date Recorded Sex Assigned at Female 01/01/2023 9:08 AM CDT Gender Identity Female 01/01/2023 9:08 AM CDT Sexual Orientation Straight 01/01/2023 9: 08 AM CDT documented as of this encounter Plan of Treatment Upcoming Encounters Date Type Department Care Team (Latest Contact Info) Description 04/26/2023 10:40 AM GENERAL NEUROLOGIST Virtual Visit Division of Gastroenterology in [place], [place] [address] [place] [address] Jose Roberto Patterson M.D. [address] [place] [phone] 04/29/2023 9:30 AM GENERAL NEUROLOGIST Appointment Division of Gastroenterology in [place], [place] [address] [place] [address] Jose Roberto Patterson M.D. 200 [place] [phone] Shane Becerra M.D. 200 [place] [address] Discharge Disposition: Home or Self Care documented as of this encounter Visit Diagnoses Not on filedocumented in this encounter Additional Health Concerns Assessment Noted Time PHQ-9 Depression Total Score: 21 012 10:33 AM GENERAL NEUROLOGIST documented as of this encounter Care Teams 21 Dealer Relationship Specialty Start Date End Date Elsewhere, Pcp PCP - General Internal Medicine 06/26/22 documented as of this encounter
--- OUTSIDE RECORDS SUMMARY | 2023-04-10 10:18 | XMS_ITS | Encounter Summary ---
Author Name Unknown Organization [facility] Address [address] [place] [address] Care Team Providers Care Zoo Keeper Name Role Phone Elsewhere, Pcp Primary Care Provider Unavailabl e Reason for Visit * Reason Comments Abdominal Pain Encounter Details Date Type Department Care Team (Late st Contact Info) Description 10/25/2022 5:15 PM CDT - 10/25/2022 7:09 PM CDT Emergency [facility] [address] [place] [phone] Rivera Brandt, ATUL, C.N.P., M.S.N. [address] [place] [phone] Abdominal Pain (Primary Dx) Discharge Disposition: Home [...] Sign Reading Time Taken Comments Blood Pressure 142/76 10/25/2022 7:00 PM CDT Pulse 71 10/25/2022 7:00 PM CDT Temperature 36.1 ??C (97 ??F) 10/25/2022 5:16 PM CDT Respiratory Rate 22 10/25/2022 5:16 PM CDT Oxygen Saturation 95% 10/25/2022 7:00 PM CDT Inhaled Oxygen Concentration - - Weight - - Height 165.1 cm (5' 5) 10/25/2022 5:20 PM CDT Body Mass Index - - documented in this encounter Discharge Instructions * Discharge Instructions* Rivera Brandt APRN, C.N.Santi., M.S.N. - 10/25/2022 6:46 PM CDT I would recommend for the next week avoid any spicy or greasy food. Be on a clear liquid diet for the next 3-5 days if concern for your chronic pancreatitis and follow up with GI or primary care for evaluation. You can always return if you feel your symptoms are getting worse. * Attachments The following attachments cannot be sent through Care Everywhere. * Abdominal Pain Adult ([place] [facility]) documented in this encounter Medications at Time [...] Units under the skin. 0 09/17/2022 02/19/2023 umettcuhebde-kcymolim-[place] -lutein (CENTRUM SILVER) 400-250 mcg per chewable tablet Chew 1 tablet at bedtime. 0 01/01/2023 documented as of this encounter ED Notes * Rivera Brandt, ATUL, C.N.P., M.S.N. - 10/25/2022 5:44 PM CDT SUBJECTIVE CHIEF COMPLAINT/REASON FOR VISIT Abdominal Pain HISTORY OF PRESENT ILLNESS History provided by: Patient REVIEW OF SYSTEMS Constitutional: Negative for chills and fever. HENT: Negative for facial swelling. Eyes: Negative for estee-orbital edema. Respiratory: Negative for cough and shortness of breath. Cardiovascular: Negative for chest pain and leg swelling. Gastrointestinal: Positive for abdominal pain, nausea and vomiting. Genitourinary: Negative for dysuria, flank pain, frequency and urgency. Musculoskeletal: Negative. Skin: Negative. Neurological: Negative. Psychiatric/Behavioral: Negative. All other systems reviewed and are negative. OBJECTIVE Initial Vitals Temperature 10/25/22 1716 36.1 ??C Pulse Rate 10/25/22 1715 (!) 48 Heart Rate 10/25/22 1716 80 Resp Rate 10/25/22 1716 22 Blood Pressure 10/25/22 1715 138/85 SpO2 10/25/22 1715 96 % Pain Score 10/25/22 1719 9 PHYSICAL EXAMINATION Constitutional: Nursing note and vitals reviewed. No distress. HENT: Head: Normocephalic. Nose: Nose normal. Eyes: Conjunctivae are normal. Neck: No tracheal deviation present. Pulmonary/Chest: Effort normal. Abdominal: exhibits no distension. There is generalized abdominal tenderness. Musculoskeletal: General: No deformity. Neurological: Alert. Skin: Skin is normal color. ASSESSMENT/PLAN Yary Prince is a 67 y.o. female with history of chronic pancreatitis, hypertension, and diabetespresents to the ED concerning for abdominal pain. She was seen earlier in the ED and admitted for observation. She then left as she feels her blood pressure was not controlled. She continued have pain and returns today. She did took oxycodone at home 3 hours prior to arrival without any significantrelief. She endorses pain as an 8/10. She said she did ate a burger prior to arrival but the becamenauseated with increased pain afterward. She denies any fever. Differential diagnosis includes acute on chronic pancreatitis, MS flare-up, obstruction, as well asothers considered. Patient presents to the ED concerning for recurrent pain. Her vital signs of 4 has been stable. Labwork and vital sign reassuring 4. Normal lipase. She was given morphine for her chronic pain. Plan: At this point with multiple visits, less suspicion for any acute emergent cause of her pain. She was given pain control in the emergency department. She does have oxycodone as well as Zofran athome. Will discharge home with return precautions given. Final Diagnoses: as of 10/25/221845 Abdominal Pain Rivera Brandt APRN, C.N.P., M.S.N. 10/25/221845 * Izzy Santiago R.N. - 10/25/2022 5:20 PM CDT Pt has history of MS and pancreatitis Pt was in on Saturday with what pt calls a flair up. Pt stayed in hospital one and 1/2 days, but her said that it was awful Pt couldn't sleep on the bed that was up there, because of the noise it made He stated that they wouldn't give her the right amount of pain meds And they kept trying to feed her Pt is still c/o pain in her abd. Izzy Santiago RCarlosN. 10/25/221722 documented in this encounter Plan of Treatment Upcoming Encounters Date Type Department Care Team (Latest Contact Info) Description 04/26/2023 10:40 AM INVENTORY TECHNICIAN Virtual Visit Division of Gastroenterology in [place], [place] [address] [place] [address] Jose Roberto Patterson M.D. [address] [place] [phone] 04/29/2023 9:30 AM INVENTORY TECHNICIAN Appointment Division of Gastroenterology in [place], [place] [address] [place] [address] Jose Roberto Patterson M.D. [address] [place] [phone] Shane Becerra M.D. [address] [place] [phone] Discharge Disposition: Home or Self Care documented as of this encounter Procedures Procedure Name Priority Date/Time Associated Diagnosis Comments CBC WITH DIFFERENTIAL, B STAT 10/25/2022 6:20 PM CDT LIPASE, S/P STAT 10/25/2022 6:20 PM CDT LACTATE, B/P STAT 10/25/2022 6:20 PM CDT COMPREHENSIVE METABOLIC PANEL, S/P STAT 10/25/2022 6:20 PM CDT documented in this encounter Results * (ABNORMAL) Lipase (10/25/2022 6:20 PM CDT) Lipase, P 65(H) 13 - 60 U/L 10/25/2022 6: 41 PM CDT CNFL Blood (Blood, Venous) 10/25/2022 6:20 PM CDT 10/25/2022 6:23 PM CDT Rivera Brandt APRN C.N.P., M.S.N. LAB BLOO D ADD-ON [facility] [address] [place] [address], [facility] CNFL [facility] [place] [address] * Lactate (10/25/2022 6:20 PM CDT) Lactate, P 0.9 0.5 - 2.2 mmol/L 10/25/2022 6:39 PM CDT CNFL Blood (Blood, Venous) 10/25/2022 6:20 PM CDT 10/25/2022 6:23 PM CDT Rivera Brandt APRN C.N.P., M.S.N. LAB AYDEO D NON ADD-ON [facility] [address] [place] [address], [facility] [place] [address] * (ABNORMAL) Comprehensive Metabolic Panel (10/25/2022 6:20 PM CDT) Potassium, P 3.7 3.6 - 5.2 mmol/L 10/25/2022 6:41 PM CDT CNFL Sodium, P 138 135 - 145 mmol/L 10/25/2022 6:41 PM CDT CNFL Chloride, P 102 98 - 107 mmol/L 10/25/2022 6:41 PM CDT CNFL Bicarbonate, P 25 22 - 29 mmol/L 10/25/2022 6:41 PM CDT CNFL Anion Gap, P 11 7 - 15 10/25/2022 6:41 PM CDT CNFL BUN (Blood Urea Nitrogen), P 18 6 - 21 mg/dL 10/25/2022 6:41 PM CDT CNFL Creatinine 0.61 0.59 - 1.04 mg/dL 10/25/2022 6:41 PM CDT CNFL Estimated GFR (eGFR) >90 >=60 mL/min/BS A 10/25/2022 6:41 PM CDT CNFL Comment: Estimated GFR calculated using the 2020 CKD_EPI creatinine equation. Calcium, Total, P 9.7 8.8 - 10.2 mg/dL 10/25/2022 6:41 PM CDT CNFL Glucose, P 282(H) 70 - 140 mg/dL 10/25/2022 6:41 PM CDT CNFL Protein, Total, P 6.6 6.3 - 7.9 g/dL 10/25/2022 6:41 PM CDT CNFL Albumin, P 3.8 3.5 - 5.0 g/dL 10/25/2022 6:41 PM CDT CNFL Aspartate Aminotransferase (AST), P 12 8 - 43 U/L 10/25/2022 6:41 PM CDT CNFL Alkaline Phosphatase, P 84 35 - 104 U/L 10/25/2022 6:41 PM CDT CNFL Alanine Aminotransferase (ALT), P 13 7 - 45 U/L 10/25/2022 6:41 PM CDT CNFL Bilirubin, Total, P <0.2 <=1.2 mg/dL 10/25/2022 6:41 PM CDT CNFL Blood (Blood, Venous) 10/25/2022 6:20 PM CDT 10/25/2022 6:23 PM CDT Rivera Brandt APRN C.N.P., M.S.N. LAB BLOO D ADD-ON [facility] [address] [place] [address], [facility] CNFL [facility] [place] [address] * (ABNORMAL) CBC with Differential, Blood (10/25/2022 6:20 PM CDT) Hemoglobin 13.4 11.6 - 15.0 g/dL 10/25/2022 6:45 PM CDT CNFL Hematocrit 39.1 35.5 - 44.9 % 10/25/2022 6:45 PM CDT CNFL Erythrocytes 4.30 3.92 - 5.13 x10(12)/L 10/25/2022 6:45 PM CDT CNFL MCV 90.9 78.2 - 97.9 fL 10/25/2022 6:45 PM CDT CNFL RBC Distrib Width 11.9(L) 12.2 - 16.1 % 10/25/2022 6:45 PM CDT CNFL Platelet Count 362 157 - 371 x10(9)/L 10/25/2022 6:45 PM CDT CNFL Leukocytes 12.1(H) 3.4 - 9.6 x10(9)/L 10/25/2022 6:45 PM CDT CNFL Neutrophils 6.84(H) 1.56 - 6.45 x10(9)/L 10/25/2022 6:45 PM CDT CNFL Lymphocytes 3.07 0.95 - 3.07 x10(9)/L 10/25/2022 6:45 PM CDT CNFL Monocytes 0.81 0.26 - 0.81 x10(9)/L 10/25/2022 6:45 PM CDT CNFL Eosinophils 1.33(H) 0.03 - 0.48 x10(9)/L 10/25/2022 6:45 PM CDT CNFL Basophils 0.04 0.01 - 0.08 x10(9)/L 10/25/2022 6:45 PM CDT CNFL Blood (Blood, Venous) 10/25/2022 6:20 PM CDT 10/25/2022 6:23 PM CDT Sandra Voss APRNN.P., M.S.N. LAB BLOO D ADD-ON [facility] [address] [place] [address], [facility] CNFL [facility] in [address] [address] documented in this encounter Visit Diagnoses Diagnosis Abdominal Pain- Primary documented in this encounter Administered Medications Inactive Administered Medications - up to 3 most recent administrations Medication Order MAR Action Action Date Dose Rate Site morphine injection 4 mg 4 mg, intravenous, Once, On Duyen 10/25/22 at 1745, For 1 dose Given 10/25/2022 6:25 PM CDT 4 mg morphine injection 4 mg 4 mg, intravenous, Once, On Duyen 10/25/22 at 1841, For 1 dose Given 10/25/2022 6:43 PM CDT 4 mg NaCl 0.9 % bolus 1,000 mL 1,000 mL, intravenous, at 1,000 mL/hr, Administer over 1 Hours, Once, On Dyuen 10/25/22 at 1745, For 1 dose New Bag 10/25/2022 6:24 PM CDT 1,000 mL 100 0 mL/hr ondansetron (PF) injection 4 mg (ZOFRAN) 4 mg, intravenous, Once, On Duyen 10/25/22 at 1745, For 1 dose Given 10/25/2022 6:24 PM CDT 4 mg documented in this encounter Active and Recently Administered Medications Times are shown in CDT. Scheduled Medication Order 10/23/2022 10/24/2022 10/25/2022 morphine injection 4 mg (COMPLETED) 4 mg, intravenous, Once, On Duyen 10/25/22 at 1745, For 1 dose 1825 (Given - Provid er: Izzy Santiago R.N.) morphine injection 4 mg (COMPLETED) 4 mg, intravenous, Once, On Duyen 10/25/22 at 1841, For 1 dose 1843 (Given - Provid er: Izzy Santiago R.N.) NaCl 0.9 % bolus 1,000 mL 1,000 mL, intravenous, at 1,000 mL/hr, Administer over 1 Hours, Once, On Duyen 10/25/22 at 1745, For 1 dose 1824 (New Bag - Prov ider: Izzy Santiago R.N.)1924 (Due: Stopped - Provider: Izzy Santiago R.N.) ondansetron (PF) injection 4 mg (ZOFRAN) (COMPLETED) 4 mg, intravenous, Once, On Duyen 10/25/22 at 1745, For 1 dose 1824 (Given - Provid er: Izzy Santiago R.N.) documented in this encounter Additional Health Concerns Assessment Noted Time PHQ-9 Depression Total Score: 21 05/31/ 012 10:33 AM INVENTORY TECHNICIAN documented as of this encounter Care Teams Zoo Keeper Relationship Specialty Start Date End Date Elsewhere, Pcp PCP - General Internal Medicine 06/26/22 documented as of this encounter
--- OUTSIDE RECORDS SUMMARY | 2023-04-10 10:18 | XMS_ITS | Encounter Summary ---
Author Name Unknown Organization [facility] Address [address] [place] [address] Care Team Providers Care Underground Mine Machinery Mechanic Name Role Phone Elsewhere, Pcp Primary Care Provider Unavailabl e Reason for Visit * Reason Onset Date Comments Pre-visit Intake 12/10/2022 Encounter Details Date Type Department Care Team (Latest Contact Info) Description 12/10/2022 3:45 PM CDT Clinical Communication Virtual Review in [address] [phone] Pre-visit Intake Social History Tobacco Use Types Packs/Day Years [...] (Latest Contact Info) Description 04/26/2023 10:40 AM CONTACT CENTER ENGINEER Virtual Visit Division of Gastroenterology in [place], [place] [address] [place] [phone] Jose Roberto Patterson M.D. [address] [place] [phone] 04/29/2023 9:30 AM CONTACT CENTER ENGINEER Appointment Division of Gastroenterology in [place], [place] [address] [place] [phone] Jose Roberto Patterson M.D. [address] [place] [phone] Shane Becerra M.D. [address] [place] [phone] Discharge Disposition: Home or Self Care documented as of this encounter Visit Diagnoses Not on filedocumented in this encounter Additional Health Concerns Assessment Noted Time PHQ-9 Depression Total Score: 21 05/31/ 012 10:33 AM CONTACT CENTER ENGINEER documented as of this encounter Care Teams Underground Mine Machinery Mechanic Relationship Specialty Start Date End Date Elsewhere, Pcp PCP - General Internal Medicine 06/26/22 documented as of this encounter
--- OUTSIDE RECORDS SUMMARY | 2023-04-10 10:18 | XMS_ITS | Encounter Summary ---
Author Name Unknown Organization [facility] Address [address] [place] [address] Care Team Providers Care Transmission Repairer Name Role Phone Elsewhere, Pcp Primary Care Provider Unavailabl e Reason for Referral * Outpatient (Routine) - Closed Specialty Diagnoses / Procedures Referred By Olivia gonzalez Referred To Contact Diagnoses Pancreatitis Chronic (HCC) Procedures DX Abdomen 4 Views DX Kidneys Ureters Bladder Arturo Camacho M.B.BChantell, M.S. [address] [place] [phone] [facility] Referral ID Status Reason Start Date Expiration Date Visits Re quested Visits Authorized [id number] Closed 12/13/2022 12/13/2023 1 1 Reason for Visit * Outpatient (Routine) - Closed Specialty Diagnoses / Procedures Referred By Olivia gonzalez Referred To Contact Diagnoses Pancreatitis Chronic (HCC) Procedures DX Abdomen 4 Views DX Kidneys Ureters Bladder Arturo Camacho M.B.B.S., M.S. [address] [place] [phone] [facility] Referral ID Status Reason Start Date Expiration Date Visits Re quested Visits Authorized [id number] Closed 12/13/2022 12/13/2023 1 1 Encounter Details Date Type Department Care Team (Latest Contact Info) Description 12/26/2022 2:12 PM CDT - 12/26/2022 11:59 PM CDT Hospital Encounter Department of Radiology, [facility], in [place], [place] [address] [place] [address] Arturo Camacho M.B.B.S., M.S. [address] [place] [address] Pancreatitis Chronic (HCC) Discharge Disposition: Home or [...] AM CDT documented as of this encounter Medications at [...] Units under the skin. 0 09/17/2022 02/19/2023 uczbnxzyaseu-trfjsvwv-[place] -lutein (CENTRUM SILVER) 400-250 mcg per chewable tablet Chew 1 tablet at bedtime. 0 01/01/2023 documented as of this encounter Miscellaneous Notes * Result Encounter Note - Arturo Camacho M.B.B.S., M.S. - 12/30/2022 7:46 PM CDT FYI documented in this encounter Plan of Treatment Upcoming Encounters Date Type Department Care Team (Latest Contact Info) Description 04/26/2023 10:40 AM BODY CORPORATE MANAGER Virtual Visit Division of Gastroenterology in [place], [place] [address] [place] [phone] Jose Roberto Patterson M.D. [address] [place] [phone] 04/29/2023 9:30 AM BODY CORPORATE MANAGER Appointment Division of Gastroenterology in [address] [phone] Jose Roberto Patterson M.D. [address] [place] [phone] Shane Becerra M.D. [address] [place] [phone] Discharge Disposition: Home or Self Care documented as of this encounter Procedures Procedure Name Priority Date/Time Associated Diagnosis Comments DX ABDOMEN 4 VIEWS RAD - Routine (most inpatients and all outpatients) 12/26/2022 2:53 PM CDT Pancreatitis Chronic (HCC) documented in this encounter Results * DX Abdomen 4 [...] calculi. Nonobstructive bowel gas pattern. Aortic calcifications. Arturo Juan, M.S. IMG DIAGNO STIC IMAGING PROCEDURES documented in this encounter Visit Diagnoses Diagnosis Pancreatitis Chronic (HCC) documented in this encounter Additional Health Concerns Assessment Noted Time PHQ-9 Depression Total Score: 21 05/31/ 012 10:33 AM BODY CORPORATE MANAGER documented as of this encounter Care Teams Transmission Repairer Relationship Specialty Start Date End Date Elsewhere, Pcp PCP - General Internal Medicine 06/26/22 documented as of this encounter
--- OUTSIDE RECORDS SUMMARY | 2023-04-10 10:18 | XMS_ITS | Encounter Summary ---
Author Name Unknown Organization [facility] Address [address] [place] [address] Care Team Providers Care Solar Energy Technician Name Role Phone Elsewhere, Pcp Primary Care Provider Unavailabl e Reason for Referral * Outpatient (Routine) - Authorized Specialty Diagnoses / Procedures Referred By Contact Referred To Contact Gastroenterology and Hepatology Jose Roberto Patterson M.D. [address] [place] [address] [facility] Referral ID Status Reason Start Date Expiration Date V isits Requested Visits Authorized [id number] Authorized 12/27/2022 12/26/2025 1 1 * Outpatient (Routine) - Authorized Specialty Diagnoses / Procedures Referred By Contac t Referred To Contact Diagnoses Pancreatitis Chronic (HCC) Procedures ERCP Jose Roberto Patterson M.D. [address] [place] [address] [facility] Referral ID Status Reason Start Date Expiration Date V isits Requested Visits Authorized [id number] Authorized 12/27/2022 12/27/2023 1 1 * Outpatient (Routine) - Closed Specialty Diagnoses / Procedures Referred By Contac t Referred To Contact Urology Diagnoses Pancreatitis Chronic (HCC) Jose Roberto Patterson M.D. [address] [place] [phone] [facility] Referral ID Status Reason Start Date Expiration Date Visits Re quested Visits Authorized [id number] Closed 12/27/2022 12/27/2023 1 1 Scheduling Instructions Schedule with Dr. Andrew - not kidney stones, but pancreatic duct stones * Outpatient (Routine) - Closed Specialty Diagnoses / Procedures Referred By Olivia t Referred To Contact Pulmonary Medicine / Nicotine Dependence Diagnoses Pancreatitis Chronic (HCC) Jose Roberto Patterson M.D. [address] [place] [phone] [facility] Referral ID Status Reason Start Date Expiration Date Visits Re quested Visits Authorized [id number] Closed 12/27/2022 12/27/2023 1 1 * Outpatient (Routine) - Closed Specialty Diagnoses / Procedures Referred By Olivia t Referred To Contact Diagnoses Pancreatitis Chronic (HCC) Procedures Endoscopic ultrasound (EUS) Jose Roberto Patterson M.D. [address] [place] [phone] [facility] Referral ID Status Reason Start Date Expiration Date Visits Re quested Visits Authorized [id number] Closed 12/27/2022 12/27/2023 1 1 Reason for Visit * Appointment Request (Routine) - Closed Specialty Diagnoses / Procedures Referred By Contact Referred To Contact Gastroenterology and Hepatology Diagnoses Pancreatitis Chronic Recurrent (HCC) Referral ID Status Reason Start Date Expiration Date Visits Re quested Visits Authorized [id number] Closed 11/09/2022 11/09/2023 1 1 Encounter Details Date Type Department Care Team (Latest Contact Info) Description 12/27/2022 9:00 AM CDT Comprehensive Visit Division of Gastroenterology in [place], [place] [address] [place] [phone] Jose Roberto Hays M.D. [address] [place] [address] Pancreatitis Chronic (HCC) (Primary Dx); Pain Abdominal Chronic; Loss Weight; Nicotine Dependence Cigarettes; Diabetes Mellitus Due To Underlying Condition With Hyperglycemia (HCC) Social History Tobacco Use Types Packs/Day [...] Sign Reading Time Taken Comments Blood Pressure 134/74 12/27/2022 8:45 AM CDT Pulse - - Temperature - - Respiratory Rate - - Oxygen Saturation - - Inhaled Oxygen Concentration - - Weight 59 kg (130 lb 1.1 oz) 12/27/2022 8:45 AM CDT Height 162.6 cm (5' 4) 12/27/2022 8:45 AM CDT Body Mass Index 22.33 12/27/2022 8:45 AM CDT documented in this encounter Consult Notes * Jose Roberto Patterson M.D. - 12/27/2022 9:00 AM CDT [facility] Outpatient Consultation NAME: Yary Prince Date of Consultation: 12/27/2022 Chief Complaint/Reason for Consult: Pancreatitis Chronic (HCC) [K86.1] History of Present Illness: Ms. Suresh is a 67 y.o. female who is being seen in clinic today for chronic calcific pancreatitis. She was previously seen many years ago for acute recurrent pancreatitis. At that time she had a workup and was noted to have significantly elevated triglycerides peaking in the thousands. She even underwent workup including an EUS in July of 2013 that demonstrated a fatty liver but no obvious evidence of chronic pancreatitis. She underwent an ERCP at that time for the same indication and was notedto have a mild narrowing of the pancreatic duct. She had a pancreatic duct stent placed. However this was not removed until January of 2015, 18 months after implantation. She is now quite miserable. She lives in chronic pain. She previously was on oxycodone 10 mg twice daily however her dosage was cut down by her local provider. She has lost 40 lb over the past year. She previously experienced steatorrhea but states that she now has normal bowel movements. Her hemoglobin A1 c has been elevated to 9.8% and her sugars have been difficult to control despite her weight loss. She states that she is never drank alcohol and is currently smoking 5 cigarettes a day. She previously had quit however restarted after the of her mother. She states that Chantix worked well for her in the past. She does smoke marijuana. She has had a remote cholecystectomy 30-35 years ago. She states that the pain is intense and chronic and she can not live like this. Of note she also experiences intermittent dysphagia symptoms. Review of Systems: All other systems reviewed and negative unless mentioned in the history of present illness, patientprovided information or problem list. History Review: The following portions of the patient's history were reviewed and updated as appropriate: allergies, current medications, family history, medical history, social history, surgical history and problemlist. Objective: Vital Signs: BP 134/74 Ht 162.6 cm Wt 59 kg BMI 22.33 kg/m?? Physical Exam: General: Sitting comfortably in obvious acute distress. Psychiatric: Awake, alert and oriented. Skin: No obvious rashes. Eyes: Sub conjunctiva pink. No icterus Mouth: No buccal lesions. Moist mucous membranes Abdomen: Soft, tender to touch, particularly in the left upper quadrant. CT 11/22/22: Multiple pancreatic head calcifications consistent with chronic pancreatitis with upstream pancreatic duct dilation. Per my measurement the largest stone is 13 mm in the head of the pancreas in the secondary stone in the neck of the pancreas measuring 8 mm. Most recent triglycerides 99. Prior IgG4 normal. Assessment/Plan: #1 Pancreatitis Chronic (HCC) #2 Pain Abdominal Chronic #3 Loss Weight #4 Nicotine Dependence Cigarettes #5 Diabetes Mellitus Due To Underlying Condition With Hyperglycemia (HCC) Ms. Prince is a 67 y.o. female who presents for evaluation and management of Pancreatitis Chronic (HCC) [K86.1]. She has a prior history of acute recurrent pancreatitis possibly due to hypertriglyceridemia and was previously seen in our pancreas Clinic many years ago for this indication. She now presents with calcific chronic pancreatitis with pancreatic duct stones and upstream dilation likely causing the increase in her pain. She has manage this with narcotics and is on antidepressant medications. She was previously on gabapentin but is not currently on this medication. She is clearly suffering - given the number and sizeof the pancreatic duct stones, I think the best chance of stone clearance is with ESWL followed by ERCP. She may in fact require multiple ESWL sessions given the multi focality of her stones. I recognize that she has had prior ERCP with pancreatic and biliary sphincterotomy. I suspect that these have stenosed. She is under the care of local providers for her diabetes mellitus. Recommendations: To address her immediate symptoms of severe chronic abdominal pain, I would recommend an EUS with celiac plexus block. She does endorse intermittent dysphagia and will perform an EGD at the time of the EUS. We will arrange ESWL with Urology followed by an ERCP. This may require multiple ESWL sessions for clearance. I suspect that her prior pancreatic sphincterotomy has restenosed. However to optimize success we would recommend ESWL prior to ERCP. We have made a referral to smoking cessation Clinic for her continued cigarette use. We have discussed that cigarette smoking can accelerate pancreatic scarring. She is currently under the care of local providers for managing her hyperglycemia. In addition she has access to nurses who provide her with dietary guidance and therefore we will not make a referralto our nutrition team at this time. Although she does not endorse steatorrhea at this time, she we will require a DEXA scan as she is not had 1 recently. Follow up recommendations: Recommend a telephone consultation with me in 2-4 weeks. BILLIN minutes spent in a combination of the following activities: visit with the patient; reviewing records; interpreting test results; discussing plans with the patient and/or family; discussing and coordinating care with other team members and communicating / reviewing care plan with local provider(s). Jose Roberto Patterson M.D. 12/27/2022 documented in this encounter Plan of Treatment Upcoming Encounters Date Type Department Care Team (Latest Contact Info) Description 04/26/2023 10:40 AM GREEN PROMOTIONS SPECIALIST Virtual Visit Division of Gastroenterology in [place], [place] [address] [place] [phone] Jose Roberto Patterson M.D. [address] [place] [phone] 04/29/2023 9:30 AM GREEN PROMOTIONS SPECIALIST Appointment Division of Gastroenterology in [place], [place] [address] [place] [address] Jose Roberto Patterson M.D. [address] [place] [phone] Shane Becerra M.D. [address] [place] [phone] Discharge Disposition: Home or Self Care Scheduled Orders Name Type Priority Associated Diagnoses Orde r Schedule ERCP GI Routine Pancreatitis Chronic (HCC) 1 Occurrences starting 12/27/2022 until 03/28/2024 Scheduled Referrals Name Type Priority Associated Diagnoses Order Schedule Nicotine Dependence - Counseling consult (clinic) Outpatient Referral Routine Pancreatitis Chronic (HCC) Expected: 12/27/2022 (Approximate), Expires: 03/28/2024 Urology - General - stones (bladder / kidney) consult (clinic) Outpatient Referral Routine Pancreatitis Chronic (HCC) Expected: 12/27/2022 (Approximate), Expires: 03/28/2024 Gastroenterology and Hepatology office visit (clinic) Outpatient Referral Routine Expected: 12/28/2023 (Approximate), Expires: 03/28/2024 documented as of this encounter Visit Diagnoses Diagnosis Pancreatitis Chronic (HCC)- Primary Pain Abdominal Chronic Loss Weight Nicotine Dependence Cigarettes Diabetes Mellitus Due To Underlying Condition With Hyperglycemia (HCC) documented in this encounter Additional Health Concerns Assessment Noted Time PHQ-9 Depression Total Score: 21 012 10:33 AM GREEN PROMOTIONS SPECIALIST documented as of this encounter Care Teams Solar Energy Technician Relationship Specialty Start Date End Date Elsewhere, Pcp PCP - General Internal Medicine 06/26/22 documented as of this encounter
--- OUTSIDE RECORDS SUMMARY | 2023-04-10 10:19 | XMS_ITS | Encounter Summary ---
Author Name Unknown Organization [facility] Address [address] [place] [address] Care Team Providers Care Head Of Maintenance Name Role Phone Elsewhere, Pcp Primary Care Provider Unavailabl e Reason for Visit * Reason Comments Extremity Weakness Abdominal Pain * Auth/Cert (Routine) Specialty Diagnoses / Procedures Referred By Contac t Referred To Contact Diagnoses Weakness General Pain Left Upper Quadrant Procedures OBS Referral ID Status Reason Start Date Expiration Date Visits Re quested Visits Authorized [id number] 1 1 Encounter Details Date Type Department Care Team (Late st Contact Info) Description 10/23/2022 10:55 AM CDT - 10/24/2022 11:02 PM CDT Emergency [facility], [facility], Second Floor [address] [phone] Rivera Brandt APRN, C.N.P., M.S.N. [address] [place] [phone] Faustina Scott M.D. [address] [place] [phone] Weakness General (Primary Dx); Pain Left Upper Quadrant Discharge Disposition: Home or Self Care Social [...] Sign Reading Time Taken Comments Blood Pressure 123/94 10/24/2022 9:00 PM CDT Pulse 64 10/24/2022 9:00 PM CDT Temperature 36.9 ??C (98.4 ??F) 10/24/2022 9:00 PM CD T Respiratory Rate 16 10/24/2022 9:00 PM CDT Oxygen Saturation 96% 10/24/2022 9:00 PM CDT Inhaled Oxygen Concentration - - Weight 60 kg (132 lb 4.4 oz) 10/24/2022 1:49 PM CDT Height 162.6 cm (5' 4.02) 10/24/2022 1:50 PM CD T Body Mass Index 22.69 10/24/2022 1:49 PM CDT documented in this encounter Discharge Summaries * Fer Cardenas M.D. - 10/24/2022 11:02 PM CDT Images from the original note were not included. HOSPITAL DISCHARGE SUMMARY Hospital: [facility] Discharging provider: Fer Cardenas M.D. Primary Care Providers: Elsewhere, Pcp (General) No address on file Admission date: 10/23/2022 Discharge date: 10/25/2022 PRINCIPAL DIAGNOSIS Multiple sclerosis with severe weakness SECONDARY DIAGNOSES Patient Active Problem List Diagnosis Pancreatitis Chronic Recurrent (HCC) Multiple Sclerosis (HCC) Multiple Sclerosis (HCC) Hypertension Essential Primary Bipolar Disorder (HCC) Bloating Abdominal Diabetes Mellitus Type 2 (HCC) Diabetes Mellitus Type 2 With Diabetic Neuropathy (HCC) Duodenitis Dysphagia Gastroesophageal Reflux Disease NOS Hematuria Hyperlipidemia Migraine Headache Rhinitis Seasonal Unspecified Abnormalities Of Gait And Mobility Pancreatitis Acute (HCC) Weakness General Pain Abdominal Chronic HOSPITAL COURSE SUMMARY Yary Prince is a 67-year-old lady with a medical history significant for multiple sclerosis with severe weakness, poor mobility, recurrent pancreatitis, chronic abdominal pain, dysphagia, duodenitis, gastroesophageal reflux disease, dyslipidemia, hypertension, type II diabetes mellitus, bipolar disorder, migraine headaches and seasonal rhinitis who was admitted to the medical service for evaluation and treatment of progressive physical deconditioning. Patient also complained of abdominal pain. There was also concern that patient had been slurring her speech. She had recently been evaluated in the [facility] and had undergone evaluation for abdominal symptoms and was subseq uently discharged home. Since then, she had noticed increased weakness. Reported nausea. She was admitted to [facility] for hydration and pain control. On the night of discharge, patient complained that her pain was uncontrolled. She also complained that her air mattress was too noisy. She had also been having difficulty with the IV pump beeping when she would bend her arm. We changed patient's pain medication to try and gain better pain control. Patient was unfortunately still not content with the care she was receiving and requested to be discharged. I had a phone conversation with the patient and informed her that we recommended ongoing care for her abdominal pain and weakness. Patient insisted on discharging home. I informed her that if she were to leave the hospital, she would be discontinuing care against medical advice. Patient subsequently discharged AGAINST MEDICAL ADVICE. Recommendations for Outpatient Follow Up by Primary Care Provider Neurologist for ongoing treatment of multiple sclerosis Line Server for ongoing treatment of recurrent pancreatitis Physical examination BP (!) 123/94 (BP Location: Right arm, Patient Position: Sitting) Pulse 64 Temp 36.9 ??C (Temporal) Resp 16 Ht 162.6 cm Wt 60 kg SpO2 96% BMI 22.69 kg/m?? DISCHARGE MEDICATIONS Discharge Medications TAKE these medications Accu-Chek Guide Me Glucose Mtr misc USE DIRECTED, TESTING THREE TIMES A DAY Generic drug: blood-glucose meter Accu-Chek Guide test strips 3 (three) times a day. for testing Generic drug: blood sugar diagnostic strips ASK your doctor about these medications albuterol 90 mcg/actuation inhaler Inhale 2 puffs every 4 (four) hours as needed for wheezing or shortness of breath. Q4-6 hrs as needed amLODIPine 5 mg tablet Commonly known as: NORVASC Take 1 tablet (5 mg total) by mouth daily. aspirin [address] tablet Take 325 mg by mouth every 6 (six) hours as needed for pain. baclofen 10 mg tablet Commonly known as: LIORESAL Take by mouth every 8 (eight) hours. cyclobenzaprine 10 mg tablet Commonly known as: FLEXERIL Take 10 mg by mouth 3 (three) times a day as needed. donepeziL 5 mg tablet Commonly known as: ARICEPT Take by mouth daily. * DULoxetine [address] capsule Commonly known as: CYMBALTA Take 30 mg by mouth every morning. * DULoxetine [address] capsule Commonly known as: CYMBALTA Take 1 capsule by mouth at bedtime. gabapentin 300 mg capsule Commonly known as: NEURONTIN take 1 capsule by oral route twice a day glipiZIDE 10 mg tablet Commonly known as: GLUCOTROL Take 20 mg by mouth at bedtime. insulin glargine 100 unit/mL injection Commonly known as: LANTUS Inject 20 Units under the skin. losartan 100 mg tablet Commonly known as: COZAAR Take 1 tablet by mouth at bedtime. montelukast 10 mg tablet Commonly known as: SINGULAIR Take 10 mg by mouth at bedtime. smhbobjigwdm-vghqzyxf-FB-lutein 400-250 mcg per chewable tablet Commonly known as: CENTRUM SILVER Chew 1 tablet at bedtime. ondansetron ODT 4 mg disintegrating tablet Commonly known as: ZOFRAN-ODT DISSOLVE ONE TABLET ON THE TONGUE TWO TO THREE TIMES PER DAY NEEDED FOR NAUSEA AND VOMITING FOR 3 DAYS oxyBUTYnin 10 mg 24 hr tablet Commonly known as: DITROPAN-XL Take 10 mg by mouth at bedtime. oxyCODONE 10 mg IR tablet Commonly known as: ROXICODONE TAKE ONE-HALF TABLET BY MOUTH FOUR TIMES A DAY NEEDED FOR PAIN FOR 14 DAYS QUEtiapine 400 mg tablet Commonly known as: SEROquel Take 400 mg by mouth at bedtime. simvastatin 40 mg tablet Commonly known as: ZOCOR Take 40 mg by mouth at bedtime. SUMAtriptan 100 mg tablet Commonly known as: IMITREX Take 100 mg by mouth as needed for migraine. May repeat dose once in 2 hours if migraine is unresolved. Do not exceed 200 mg in 24 hours. * There are duplicate medications prescribed to the patient Rationale for medication changes Patient left before completion of discharge medication reconciliation. Procedures None DISPOSITION: Discharged AGAINST MEDICAL ADVICE CONDITION AT DISCHARGE: Stable OUTPATIENT FOLLOW UP Follow up with PCP ELSEWHERE, PCP within 3-5 days Neurologist for ongoing treatment of multiple sclerosis Line Server for ongoing treatment of recurrent pancreatitis DISCHARGE INSTRUCTIONS Labs Results from last 7 days Lab Units 10/25/22 1820 10/24/22 1931 10/24/22 1647 10/24/22 1122 10/24/22 0745 10/24/22 0718 10/23/22 1511 10/23/22 1143 10/23/22 1142 10/19/22 1517 SODIUM P mmol/L 138 -- -- -- -- 142 -- -- -- 137 POC SODIUM mmol/L -- -- -- -- -- -- -- -- 138 -- POC POTASSIUM VENOUS mmol/L -- -- -- -- -- -- -- -- 3.6 -- POTASSIUM P mmol/L 3.7 -- -- -- -- 3.8 -- -- -- 3.8 CHLORIDE POCT mmol/L -- -- -- -- -- -- -- -- 102 -- CHLORIDE P mmol/L 102 -- -- -- -- 108* -- -- -- 104 BICARBONATE PLASMA mmol/L 25 -- -- -- -- 26 -- -- -- 25 POC BUN B mg/dL -- -- -- -- -- -- -- -- 8 -- BUN P mg/dL 18 -- -- -- -- 7 -- -- -- 10 CREATININE mg/dL 0.61 -- -- -- -- 0.62 -- -- -- 0.73 POC CREATININE mg/dL -- -- -- -- -- -- -- -- 0.5* -- CALCIUM P mg/dL 9.7 -- -- -- -- 9.0 -- -- -- 9.5 ALBUMIN P g/dL 3.8 -- -- -- -- -- -- 4.1 -- -- ALBUMIN g/dL -- -- -- -- -- -- -- -- -- 3.9 PROTEIN TOTAL P g/dL 6.6 -- -- -- -- -- -- 7.3 -- -- TOTAL PROTEIN g/dL -- -- -- -- -- -- -- -- -- 6.2* BILIRUBIN TOTAL P mg/dL <0.2 -- -- -- -- -- -- <0.2 -- -- BILIRUBIN TOTAL mg/dL -- -- -- -- -- -- -- -- -- 0.3 ALK PHOS P U/L 84 -- -- -- -- -- -- 93 -- -- ALK PHOS U/L -- -- -- -- -- -- -- -- -- 83 ALT U/L -- -- -- -- -- -- -- -- -- 13 ALT P U/L 13 -- -- -- -- -- -- 13 -- -- AST P U/L 12 -- -- -- -- -- -- 18 -- -- AST U/L -- -- -- -- -- -- -- -- -- 16 GLUCOSE P mg/dL 282* -- -- -- -- 199* -- -- -- 181* POC GLUCOSE mg/dL -- 244* 303* 282* < > -- < > -- 322* -- < > = values in this interval not displayed. Results from last 7 days Lab Units 10/25/22 1820 10/24/22 0718 10/23/22 1142 WBC x10(9)/L 12.1* 9.4 10.0* HEMOGLOBIN g/dL 13.4 13.5 14.3 HEMATOCRIT % 39.1 40.0 42.1 MCV fL 90.9 93.7 91.7 PLATELETS AUTO x10(9)/L 362 316 356 Results from last 7 days Lab Units 10/19/22 1517 INR 1.1 Imaging 10/23/22 CT HEAD NECK ANGIOGRAM WITH IV CONTRAST Including 3-D image postprocessing. COMPARISON: CT head 07/16/18. FINDINGS: Right carotid system: No significant stenosis or dissection. Moderate atherosclerotic calcifications at the carotid bulb. Mild atherosclerotic calcifications at carotid siphon. Left carotid system: No significant stenosis or dissection. Mild calcifications at carotid bulb. Vertebral arteries: No significant stenosis or dissection. Vertebral arteries are codominant. Aortic arch: Normal branch pattern. Intracranial: Right P2 segment of ORTHOTIST/PROSTHETIST has multiple moderate grade stenoses (series 20 images 36-37, series 19 image 42). Left P2 segment has focal moderate grade stenosis (series 20 image 26). Intracranial arteries are otherwise negative for major vessel occlusion or significant stenosis. No aneurysm. Nonvascular findings: Brain: No acute infarct by CT. Chronic lacunar infarcts in bilateral basal ganglia. Stable low-attenuation within the cerebral white matter is compatible with patient's known multiple sclerosis. Stable cerebral and cerebellar volume loss. Negative for acute intracranial hemorrhage, herniation, or mass. Other: Imaged upper chest shows multiple pulmonary groundglass opacities, which are suspicious for pulmonary infection (series 13 image 42). Mild emphysema. Degenerative cervical spondylosis. Measurement of a carotid stenosis, if present, is based on length parameters that compare the residual internal carotid luminal diameter with that of the normal distal ICA in accordance with [place] Symptomatic Carotid Endarterectomy Trial (NASCET). IMPRESSION: 1. Bilateral P2 segments have moderate grade stenoses. 2. Arteries of head and neck otherwise have atherosclerotic calcifications without additional significant stenosis. 3. Negative for acute infarct by CT. 4. Known multiple sclerosis. 5. Multiple pulmonary groundglass opacities are suspicious for infection. 10/23/22 CHEST AP OR PA AND LATERAL 2 VIEWS IMPRESSION: Comparison 07/16/2018. No focal pneumonic opacity. No evidence of pneumothorax or pleural effusion. Normal cardiac size and mediastinal contours. Mild rotatory curvature of the spine is demonstrated. Excreted contrast is seen within the renal collecting systems. 10/23/22 US GALLBLADDER AND OR BILIARY DUCTS COMPARISON: Comparison October 19, 2022 FINDINGS: Gallbladder: Surgically absent. Negative sonographic Galvan sign. Intrahepatic ducts: Not dilated. Common duct: Not dilated. Aorta: Normal caliber. Other: Pancreatic ductal ectasia and intrapancreatic stones, similar to preceding CT October 19, 2022. IMPRESSION: 1. Prior cholecystectomy. No biliary ductal dilatation. 2. 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 Total time of care: 45 minutes Fer Cardenas M.D. 10/25/22 8:47 PM CDT documented in this encounter Medications at Time [...] every 8 (eight) hours. 0 05/17/2021 02/19/2023 DULoxetine (CYMBALTA) [address] capsule Take 1 capsule by mouth at bedtime. 0 01/14/2015 02/19/2023 gabapentin (NEURONTIN) 300 mg capsule take 1 capsule by oral route twice a day 0 05/17/2021 02/19/2023 glipiZIDE (GLUCOTROL) 10 mg tablet Take 20 mg by mouth at bedtime. 0 02/19/2023 insulin glargine (LANTUS) 100 unit/mL injection Inject 20 Units under the skin. 0 09/17/2022 02/19/2023 ufqpxponltut-cquoijzp-LU -lutein (CENTRUM SILVER) 400-250 mcg per chewable tablet Chew 1 tablet at bedtime. 0 01/01/2023 documented as of this encounter Progress Notes * Faustina Scott M.D. - 10/24/2022 1:29 PM CDT Images from the original note were not included. Yary Prince [phone] DATE OF ADMISSION: 10/23/2022 LOS: 0 days SUBJECTIVE Pt is feeling much better this am. She did not need any more IV narcotics after that one dose of Fentanyl.Pain is controlled with oral Oxycodone.Pt had discontinued her Baclofen and reduced her dose of Cymbalta and gabapentin due to cost/affordability. OBJECTIVE Temp (24hrs), Av.7 ??C, Min:36.5 ??C, Max:36.9 ??C Temperature: [36.5 ??C-36.9 ??C] 36.7 ??C Resp Rate: [16-20] 16 Blood Pressure: (107-134)/(35-86) 115/55 SpO2: [81 %-96 %] 96 % Height: [162.6 cm] 162.6 cm Weight: [59.5 kg] 59.5 kg BSA (Calculated - sq m): [1.64 sq meters] 1.64 sq meters BMI (Calculated): [22.5 kg/m??] 22.5 kg/m?? Pulse Rate: [64-79] 69 Intake/Output Summary (Last 24 hours) at 10/24/2022 1329 Last data filed at 10/24/2022 1100 Gross per 24 hour Intake 1600 ml Output -- Net 1600 ml Admission Weight: 62.1 kg Current Weight: 59.5 kg PHYSICAL EXAMINATION GENERAL: Patient is in no distress-calmly resting eating breakfast this am. Alert and oriented. HEART: Regular rate and rhythm. S1S2. No murmurs, gallops or rubs noted. LUNGS: Respirations easy and unlabored. Clear to auscultation bilaterally. No expiratory wheeze. Noaccessory muscles of respiration noted. ABDOMEN: Soft, no abdominal tenderness with palpation. No peritonitis. No mass. Active bowel soundsin all 4 quadrants. NEURO: Cranial nerves II-XII intact. Face symmetrical, speech clear. EXTREMITIES: No neurovascular compromise. No cyanosis, clubbing or edema. SKIN: Warm, dry. No rash. Lab Results Glucose, POCT, B Date Value Ref Range Status 10/24/2022 282 (H) 70 - 140 mg/dL Final 10/24/2022 184 (H) 70 - 140 mg/dL Final 10/23/2022 258 (H) 70 - 140 mg/dL Final 10/23/2022 144 (H) 70 - 140 mg/dL Final Lab Results Component Value Date WBC 9.4 10/24/2022 HGB 13.5 10/24/2022 HCT 40.0 10/24/2022 MCV 93.7 10/24/2022 PLT 316 10/24/2022 Results from last 7 days Lab Units 10/24/22 0718 10/23/22 1142 10/19/22 1517 WBC x10(9)/L 9.4 10.0* 12.1* HEMOGLOBIN g/dL 13.5 14.3 12.8 HEMATOCRIT % 40.0 42.1 38.2 PLATELETS AUTO x10(9)/L 316 356 325 Lab Results Component Value Date NA 142 10/24/2022 CL 108 (H) 10/24/2022 CREATININE 0.62 10/24/2022 EGFR >90 10/24/2022 BUN 7 10/24/2022 ANIONGAP 8 10/24/2022 GLUCOSE 199 (H) 10/24/2022 CALCIUM 9.0 10/24/2022 ASSESSMENT / PLAN IMPRESSION: #1 Weakness General #2 Pancreatitis Chronic Recurrent (HCC) #3 Pain Abdominal Chronic #4 Bipolar Disorder (HCC) #5 Diabetes Mellitus Type 2 (HCC) #6 Diabetes Mellitus Type 2 With Diabetic Neuropathy (HCC) #7 Multiple Sclerosis (HCC) #8 Hypertension Essential Primary #9 Gastroesophageal Reflux Disease NOS #10 Hyperlipidemia PLAN: Will resume meds that she had discontinued.Impressed upon the patient the need to take these meds for pain control.SS is notified to see if there is some help with meds. Await PT and OT assessment for safe discharge plan. Increase activity as tolerated.Will discharge in am. Expected Discharge Date: 10/26/2022. Projected disposition: Home - self care. HOSPITAL CARE ISSUES Code status: Full Code IV fluids: IV and Feeding Tubes Active Currently Name Placement date Placement time Site Days Peripheral IV 10/23/22 18 G Anterior;Left;Upper Arm 10/23/22 1132 Arm 1 Diet:Current Diet Adult Diet Regular starting at 10/23 1451 VTE PPX: AntiCoag AntiPlatelet Meds IP/OP Low Molecular Weight Heparins Refills Start End enoxaparin injection 40 mg (LOVENOX) 10/23/2022 40 mg, subcutaneous, Every 24 hours scheduled GI PPX:Pantoprazole Counseling was provided [id number] at bedside regarding the plan of care . I personally spent 25 minutes in care of the patient today. Time includes both non face to face andface to face patient care. Patient indicated understanding and agreed with plan. Faustina Scott M.D. 31:29 PM CDT * Taya Bhakta L.S.W. - 10/24/2022 10:25 AM CDT SUBJECTIVE The doctor updated this Shoe Repair Supervisor that the patient has concerns about paying for her medications. This Shoe Repair Supervisor visited with the patient in person again. The patient explained that she does not have Medical Assistance. This Shoe Repair Supervisor provided the patient with a [employer] Medical Assistance application. Also, the patient accepted a Good RX prescription card. The patient did not need any additional resources. The doctor was updated. OBJECTIVE The patient was lying in bed. ASSESSMENT / PLAN ASSESSMENT The patient was resting in bed prior to the visit. She made eye contact. The patient was alert, oriented, and engaged in the conversation. PLAN The patient plans to return home with her . She accepted a [employer] Medical Assistance application and a Good RX prescription card. Liz Dwyer 10/24/22 * Andre Andujar, PharmCarlosD., R.Ph. - 10/24/2022 7:56 AM CDT Admission Pharmacist Progress Note Reason for admission: Weakness General [R53.1] Pain Left Upper Quadrant [R10.12] PMH: Past Medical History: Diagnosis Date Multiple Sclerosis (HCC) OBJECTIVE New Hospital orders - Home medications changed and stopped by provider medication reconciliation: New acetaminophen tablet 1,000 mg (TYLENOL) bisacodyL suppository 10 mg (DULCOLAX) enoxaparin injection 40 mg (LOVENOX) fentaNYL injection 25 mcg (SUBLIMAZE) fentaNYL injection 25 mcg (SUBLIMAZE) insulin aspart U-100 injection 0-13 Units (NovoLOG FlexPen) ipratropium-albuteroL 0.5-2.5 mg/3 mL nebulizer solution 3 mL (DUONEB) NaCl 0.9% infusion naloxone injection 0.1 mg ondansetron (PF) injection 4 mg (ZOFRAN) pantoprazole DR tablet 40 mg (PROTONIX) polyethylene glycol powder packet 1 packet (MIRALAX) sodium chloride 0.9 % injection 10 mL sodium chloride 0.9 % injection 10 mL sodium chloride 0.9 % injection 3 mL sodium chloride 0.9 % injection 3 mL Changed amLODIPine tablet 5 mg (NORVASC) - Frequency changed from Daily to Daily at bedtime. atorvastatin tablet 20 mg (LIPITOR) - Medication details are different. baclofen tablet 10 mg (LIORESAL) - Dose changed from no value to 10 mg. gabapentin capsule 300 mg (NEURONTIN) - Order can't be discretely compared. insulin glargine injection 20 Units - Frequency changed from no value to Daily at bedtime. fsdaxknxbabh-yzil-NW-Ca-minerals 400 mcg (folic acid) tablet 1 tablet (THERAPEUTIC-M) - Medication details are different. ondansetron ODT disintegrating tablet 4 mg (ZOFRAN-ODT) - Order can't be discretely compared. oxyCODONE (ROXICODONE) 10 mg IR tablet Similar Orders oxyCODONE IR tablet 5 mg (ROXICODONE) OR oxyCODONE IR tablet 10 mg (ROXICODONE) Stopped Accu-Chek Guide Me Glucose Mtr misc Accu-Chek Guide test strips albuterol 90 mcg/actuation inhaler cyclobenzaprine (FLEXERIL) 10 mg tablet donepeziL (ARICEPT) 5 mg tablet Medications stopped during pharmacy medication history interview: Patient own medications: none Prophylaxis: Enoxaparin 40 mg daily ASSESSMENT / PLAN Chronic Abdominal Pain Acetaminophen 1000 mg PO QID Oxycodone 5-10 mg PO every 4 hours PRN Pain Multiple Sclerosis Restart Baclofen 10 mg PO every 8 hours Gabapentin 300 mg PO BID Duloxetine 30 mg PO every morning (in addition to duloxetine 60 mg PO at bedtime) Diabetes Mellitus type 2 Glipizide 20 mg PO Bed time with a snack Insulin Glargine 20 units at bedtime Inuslin Aspart 0-13 units Sliding Scale TID w/meals GERD Start Pantoprazole 40 mg PO Daily Home Meds Continued Changes to home meds: Pharmacist Discussed home meds with Dr. Scott, patient is in a lot of pain. Dr. Scott would like to restart gabapentin, add the additional 30 mg of duloxetine in AM,and scheduled the baclofen despite not taking them at home. Team decided to discontinue home Flexeril. Note was added to glipizide order to administer with a snack per what she does at home. Andre Andujar, PharmLisbet., R.Ph. The information and recommendations contained in this note are based on information available at the time of documentation. * Andre Andujar Pharm.D., R.Ph. - 10/23/2022 3:34 PM CDT Images from the original note were not included. Admission Medication History Note Prior to Admission Medications Med List Status: Pharmacy Complete Set By: Andre Andujar, Edin, R.Ph. at 10/23/2022 3:34 PM Taking? Last Dose Informant Start Date End Date LT Accu-Chek Guide Me Glucose Mtr misc Unknown Spouse/Significant Other, Self 07/25/22 -- USE DIRECTED, TESTING THREE TIMES A DAY Accu-Chek Guide test strips Unknown Spouse/Significant Other, Self 07/25/22 -- 3 (three) times a day. for testing albuterol 90 mcg/actuation inhaler More than a month Spouse/Significant Other, Self -- -- Inhale 2 puffs every 4 (four) hours as needed for wheezing or shortness of breath. Q4-6 hrs as needed Notes: Patient stated not taking. amLODIPine (NORVASC) 5 mg tablet 10/22/2022 at 2200 Self 09/09/22 -- Take 1 tablet (5 mg total) by mouth daily. aspirin [address] tablet 10/22/2022 at 2200 Self -- -- Take 325 mg by mouth every 6 (six) hours as needed for pain. baclofen (LIORESAL) 10 mg tablet More than a month Self 05/17/21 -- Take by mouth every 8 (eight) hours. Notes: Has been out for months. Pt states this works well when she is using it. cyclobenzaprine (FLEXERIL) 10 mg tablet More than a month Spouse/Significant Other, Self 07/26/22 -- Take 10 mg by mouth 3 (three) times a day as needed. 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 donepeziL (ARICEPT) 5 mg tablet Unknown Self 05/17/21 -- Take by mouth daily. Notes: Pt states not sure if taking. DULoxetine (CYMBALTA) [address] capsule -- Spouse/Significant Other, Self -- -- Take 30 mg by mouth every morning. Notes: Pt stated not taking 30mg AM dose. Only taking 60mg evening dose. DULoxetine (CYMBALTA) [address] capsule 10/22/2022 at 2200 Spouse/Significant Other, Self 01/14/15 -- Take 1 capsule by mouth at bedtime. Notes: Takes 1 cap of duloxetine 30 mg in am and 1 cap of duloxetine 60 mg in pm gabapentin (NEURONTIN) 300 mg capsule More than a month Self 05/17/21 -- take 1 capsule by oral route twice a day Notes: Pt stated hasn't taken in months. glipiZIDE (GLUCOTROL) 10 mg tablet 10/22/2022 at 2200 Self -- -- Take 20 mg by mouth at bedtime. Notes: Pt usually eats snack at bedtime insulin glargine (LANTUS) 100 unit/mL injection 10/22/2022 at 2200 Self 09/17/22 -- Inject 20 Units under the skin. Notes: Pt stated only takes when blood glucose >200. Did use 20u last night. losartan (COZAAR) 100 mg tablet 10/22/2022 at 2200 Self 01/24/15 -- Take 1 tablet by mouth at bedtime. montelukast (SINGULAIR) 10 mg tablet 10/22/2022 at 2200 Spouse/Significant Other, Self -- -- Take 10 mg by mouth at bedtime. jlpnokqqucpq-blonaokw-AY-lutein (CENTRUM SILVER) 400-250 mcg per chewable tablet 10/22/2022 at 2200 -- -- -- Chew 1 tablet at bedtime. ondansetron ODT (ZOFRAN-ODT) 4 mg disintegrating tablet -- Self 09/17/22 -- DISSOLVE ONE TABLET ON THE TONGUE TWO TO THREE TIMES PER DAY NEEDED FOR NAUSEA AND VOMITING FOR 3 DAYS Notes: Pt no longer taking at home. Ordered in clinic. oxyBUTYnin (DITROPAN-XL) 10 mg 24 hr tablet 10/22/2022 at 2200 Spouse/Significant Other, Self -- -- Take 10 mg by mouth at bedtime. oxyCODONE (ROXICODONE) 10 mg IR tablet -- Self 10/16/22 -- TAKE ONE-HALF TABLET BY MOUTH FOUR TIMES A DAY NEEDED FOR PAIN FOR 14 DAYS Notes: Pt last dose home med today before arriving. A few hours ago. Ordered in clinic. Pt reports pain has been so bad at home that she has been taking 10mg when needed. QUEtiapine (SEROquel) 400 mg tablet 10/22/2022 at 2200 Spouse/Significant Other, Self 07/11/13 -- Take 400 mg by mouth at bedtime. simvastatin (ZOCOR) 40 mg tablet 10/22/2022 at 2200 Spouse/Significant Other, Self -- -- Take 40 mg by mouth at bedtime. SUMAtriptan (IMITREX) 100 mg tablet Past Week Spouse/Significant Other, Self -- -- Take 100 mg by mouth as needed for migraine. May repeat dose once in 2 hours if migraine is unresolved. Do not exceed 200 mg in 24 hours. Adherence issues: Reports many missed doses per month There are no discontinued medications. Andre Andujar Pharm.D., R.Ph. The information and recommendations contained in this note are based on information available at the time of documentation. documented in this encounter H&P Notes * Faustina Scott M.D. - 10/23/2022 1:16 PM CDT SUBJECTIVE CHIEF COMPLAINT/REASON FOR VISIT Exacerbation of chronic abdominal pain HISTORY OF PRESENT ILLNESS Yary Prince is a 67 y.o. female with history of MS, diabetes, GERD, and chronic, recurrent pancreatitis presents to the ED with escalating abdominal pain and general weakness. Patients notes that she is feeling weak in her arms and legs and wonders if it is her MS worsening. She was seen in the ED in [place] for the same abdominal ,had a workup done and subsequently discharged home afterward. Since then she noticed increasing weakness and her pain has not improved. Her appetite is variablewith associated nausea. She denies any fevers or chills. Denies any chest pain or shortness of breath. She feels like she is not able to walk and is concerned regarding flare-up of her MS. Pt notes that her pain is in the epigastric region and LUQ radiating to the back.This is her usual area of pain but this time she does not feel any meds are relieving the pain including the IV pain meds.She tells me that she needs something for relief immediately so she can catch her breath and reconcile.Pt'sBM are regular and no change in urination.Pt smokes 1/2 ppd of cigarettes and also 3-4 times a day of marijuana for her MS.She firmly believes that smoking marijuana has stopped the progress of MS. CURRENT MEDICATIONS Active Home Medications Medication Sig Taking Accu-Chek Guide Me Glucose Mtr misc USE DIRECTED, TESTING THREE TIMES A DAY Accu-Chek Guide test strips 3 (three) times a day. for testing albuterol 90 mcg/actuation inhaler Inhale 2 puffs every 4 (four) hours as needed for wheezing or shortness of breath. Q4-6 hrs as needed amLODIPine (NORVASC) 5 mg tablet Take 1 tablet (5 mg total) by mouth daily. aspirin [address] tablet Take 325 mg by mouth every 6 (six) hours as needed for pain. baclofen (LIORESAL) 10 mg tablet Take by mouth every 8 (eight) hours. cyclobenzaprine (FLEXERIL) 10 mg tablet Take 10 mg by mouth 3 (three) times a day as needed. donepeziL (ARICEPT) 5 mg tablet Take by mouth daily. DULoxetine (CYMBALTA) [address] capsule Take 30 mg by mouth every morning. DULoxetine (CYMBALTA) [address] capsule Take 1 capsule by mouth at bedtime. gabapentin (NEURONTIN) 300 mg capsule take 1 capsule by oral route twice a day glipiZIDE (GLUCOTROL) 10 mg tablet Take 20 mg by mouth at bedtime. insulin glargine (LANTUS) 100 unit/mL injection Inject 20 Units under the skin. losartan (COZAAR) 100 mg tablet Take 1 tablet by mouth at bedtime. montelukast (SINGULAIR) 10 mg tablet Take 10 mg by mouth at bedtime. ondansetron ODT (ZOFRAN-ODT) 4 mg disintegrating tablet DISSOLVE ONE TABLET ON THE TONGUE TWO TO THREE TIMES PER DAY NEEDED FOR NAUSEA AND VOMITING FOR 3 DAYS oxyBUTYnin (DITROPAN-XL) 10 mg 24 hr tablet Take 10 mg by mouth at bedtime. oxyCODONE (ROXICODONE) 10 mg IR tablet TAKE ONE-HALF TABLET BY MOUTH FOUR TIMES A DAY NEEDED FORPAIN FOR 14 DAYS QUEtiapine (SEROquel) 400 mg tablet Take 400 mg by mouth at bedtime. simvastatin (ZOCOR) 40 mg tablet Take 40 mg by mouth at bedtime. SUMAtriptan (IMITREX) 100 mg tablet Take 100 mg by mouth as needed for migraine. May repeat dose once in 2 hours if migraine is unresolved. Do not exceed 200 mg in 24 hours. The following portions of the patient's history were reviewed and updated as appropriate: allergies, current medications, family history, medical history, social history, surgical history and problemlist REVIEW OF SYSTEMS GENERAL: No weight gain, no weight loss, no fever in past month, no chills, no sweats. EENT: No vision changes, no eye pain, no sinus problems, no difficulty swallowing, no hearing difficulty. PULMONARY: No shortness of breath, no cough, no wheezing, no sputum, no hemoptysis. CARDIAC: no chest pain, no chest pressure, no rapid beating, no irregular beating. GI: as above :No difficulty starting stream, no difficulty emptying bladder, no urgency, no hematuria. MUSCULOSKELETAL: No joint pain or swelling. SKIN: No skin rashes. NEURO: No significant headaches, no slurred speech, no seizures, no dizziness, no loss of consciousness, no memory loss. ENDOCRINE: No excessive thirst, no excessive bruising. OBJECTIVE VITAL SIGNS Vitals: 10/23/22 1056 BP: 107/72 Resp: 19 Temp: (!) 35.4 ??C SpO2: 97% PHYSICAL EXAM GENERAL: Patient is restless in bed,turning around constantly and crying periodically claiming thatshe is in pain.She settles down for a few minutes and discusses her history but next moment requests IV pain meds for quick relief.she throws her arms around and says they are very weak and flailing.Alert and oriented. HEENT: Normocephalic. Trachea midline. Oropharynx pink, moist. Sclera white. PERRL. HEART: Regular rate and rhythm. S1S2. No murmurs, gallops or rubs noted. LUNGS: Respirations easy and unlabored. Clear to auscultation bilaterally. No expiratory wheeze. Noaccessory muscles of respiration noted. ABDOMEN: Soft, no abdominal tenderness with palpation. No peritonitis. No mass. Active bowel soundsin all 4 quadrants. NEURO: Cranial nerves II-XII intact. Face symmetrical, speech clear. 3-4/5 dorsi/plantar flexion. Strong grasp bilaterally. Light touch sensation intact and symmetrical in all extremities. EXTREMITIES: No neurovascular compromise. No cyanosis, clubbing or edema. SKIN: Warm, dry. No rash, bruising, or ulceration. LAB RESULTS Lab Results Component Value Date WBC 10.0 (H) 10/23/2022 HGB 14.3 10/23/2022 HCT 42.1 10/23/2022 MCV 91.7 10/23/2022 PLT 356 10/23/2022 Lab Results Component Value Date NA 138 10/23/2022 CL 102 10/23/2022 CREATININE 0.73 10/19/2022 EGFR 90 10/19/2022 BUN 8 10/23/2022 ANIONGAP 12 10/23/2022 GLUCOSE 181 (H) 10/19/2022 CALCIUM 9.5 10/19/2022 Lab Results Component Value Date CKTOTAL 43 08/29/2014 CKMB 1.4 06/10/2012 Lab Results Component Value Date URINESOURCE Urine, Urine, Midstream 10/23/2022 CLARITYU Slightly Cloudy (A) 10/23/2022 COLORU Yellow 10/23/2022 NITRITEU Negative 10/23/2022 LEUKOCYTESU Negative 10/23/2022 PROTEINQUALU Negative 10/23/2022 GLUCOSEU >=1000 (A) 10/23/2022 KETONESU Trace (A) 10/23/2022 BILIRUBINU Negative 10/23/2022 PHURINE 6.0 10/23/2022 SPECGRAV 1.010 10/23/2022 UROBILINOGEN 0.2 10/23/2022 Lab Results Component Value Date ALT 13 10/19/2022 AST 16 10/19/2022 ALKPHOS 83 10/19/2022 BILITOT 0.3 10/19/2022 DIAGNOSTICS US Gallbladder and or Biliary Ducts Result Date: 10/23/2022 Impression: 1. Prior cholecystectomy. No biliary ductal dilatation. 2. 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 DX Chest AP or PA and Lateral 2 Views Result Date: 10/23/2022 Impression: Comparison 07/16/2018. No focal pneumonic opacity. No evidence of pneumothorax or pleural effusion. Normal cardiac size and mediastinal contours. Mild rotatory curvature of the spine is demonstrated. Excreted contrast is seen within the renal collecting systems. CT Head Neck Angiogram with IV Contrast Result Date: 10/23/2022 Impression: 1. Bilateral P2 segments have moderate grade stenoses. 2. Arteries of head and neck otherwise have atherosclerotic calcifications without additional significant stenosis. 3. Negative for acute infarct by CT. 4. Known multiple sclerosis. 5. Multiple pulmonary ground glass opacities are suspicious for infection. CT Abdomen Pelvis with IV Contrast Result Date: 10/19/2022 Impression: Sequelae of chronic pancreatitis with multiple parenchymal and intraductal calcifications resulting in upstream dilation of the main pancreatic duct. No peripancreatic fluid or inflammatory stranding. ASSESSMENT / PLAN IMPRESSION: #1 Weakness General #2 Pancreatitis Chronic Recurrent (HCC) #3 Pain Abdominal Chronic #4 Bipolar Disorder (HCC) #5 Diabetes Mellitus Type 2 (HCC) #6 Diabetes Mellitus Type 2 With Diabetic Neuropathy (HCC) #7 Multiple Sclerosis (HCC) #8 Hypertension Essential Primary #9 Gastroesophageal Reflux Disease NOS #10 Hyperlipidemia PLAN: #1 Weakness General Per ER Provider discussion with Neurology -this is not a flare up of MS. Will have PT assess pt for safe discharge to home #2 Pancreatitis Chronic Recurrent (HCC) #3 Pain Abdominal Chronic Pt has chronic pain issues and has been using Oxycodone 10 mg po bid with relief of pain but not pain free. Will continue with Oxycodone Q4H prn to try to control pain. Will have IV fentanyl available for breakthrough pain. #4 Bipolar Disorder (HCC) Resume meds #5 Diabetes Mellitus Type 2 (HCC) #6 Diabetes Mellitus Type 2 With Diabetic Neuropathy (HCC) Diabetic diet with Carb counts. Scheduled BS checks and BS control with Insulin sliding scale. Resume Oral hypoglycemics and scheduled Insulin #7 Multiple Sclerosis (HCC) Resume Baclofen and Gabapentin #8 Hypertension Essential Primary Resume Anti HTN meds Monitor BP and adjust meds as needed Low salt diet Monitor Lytes and Creatinine #9 Gastroesophageal Reflux Disease NOS Start a PPI #10 Hyperlipidemia Resume Lipitor Expected Discharge Date: 10/25/2022. Projected disposition: Home - self care. HOSPITAL CARE ISSUES Code status: No Order IV fluids: IV and Feeding Tubes Active Currently Name Placement date Placement time Site Days Peripheral IV 10/23/22 18 G Anterior;Left;Upper Arm 10/23/22 1132 Arm less than 1 Diet:Current Diet None VTE PPX: GI PPX:Pantoprazole PAIN:Oxycodone and Fentanyl Total time spent with the patient 75 minutes with more than 50% of time spent in counseling, coordination of care, explanation of plan of care, chart review, and [id number] interview documented in this encounter Consult Notes * Odette Vidal P.T. - 10/24/2022 3:19 PM CDT Physical Therapy Inpatient Evaluation/Treatment By co-signing this note, the provider certifies the therapy being provided to this patient is reasonable and necessary for the diagnosis or treatment of this patient. SUBJECTIVE Patient's Name: Yary Prince Referring/Attending Provider: Faustina Scott M.D. Medical Diagnosis: Weakness General [R53.1] Pain Left Upper Quadrant [R10.12] Reason for Referral: PT Eval and treat - obs Onset Date: 10/23/22 Payor: [facility] / Plan: [facility] MEDICARE COMPLETE / Product Type: PPO / PERTINENT MEDICAL / SURGICAL HISTORY: Patient Active Problem List Diagnosis Pancreatitis Chronic Recurrent (HCC) Multiple Sclerosis (HCC) Multiple Sclerosis (HCC) Hypertension Essential Primary Bipolar Disorder (HCC) Bloating Abdominal Diabetes Mellitus Type 2 (HCC) Diabetes Mellitus Type 2 With Diabetic Neuropathy (HCC) Duodenitis Dysphagia Gastroesophageal Reflux Disease NOS Hematuria Hyperlipidemia Migraine Headache Rhinitis Seasonal Unspecified Abnormalities Of Gait And Mobility Pancreatitis Acute (HCC) Weakness General Pain Abdominal Chronic Past Surgical History: Procedure Laterality Date CHOLECYSTECTOMY [...] N/A 2003 Repair of rectocele TUBAL LIGATION History of Present Illness: Patient admitted under observation with abdominal pain and weakness. She has MS, DM, chronic pancreatitis Prior Function/Occupational Profile: retired Family/Caregiver Present: No Patient/Caregiver Goals: return home Patient Comments: Patient states she feels stronger with walking today but continues to have some abdominal pain and c/o nausea after walking today Additional Staff Present During Session: no Activity Orders (From admission, onward) Start Ordered 10/23/22 1451 Activity: Up with Assistance Until discontinued Comments: Encourage patient to be up for meals Ambulate as much as possible considering previous activity level and physical functioning Resume activity level following recovery from procedure and/or tests unless otherwise directed Question: Activity Level: Answer: Up with Assistance 10/23/22 1450 OBJECTIVE Pain Ratin/10 on a 0-10 point scale, location: left abdomen Pain Interventions: Notified Nurse and Repositioning Measures - Tools Bed Mobility - Supine to Sit Level of Assistance: Independent Bed Mobility - Sit to Supine Level of Assistance: Independent Sit to Stand Transfers Transfer Surface: Chair, Bed Transfer Equipment: Gait belt, Front wheeled walker Level of Assistance: Modified Independent Stand to Sit Transfers Transfer Surface: Bed, Chair Transfer Equipment: Front wheeled walker Level of Assistance: Modified independent Strength - Lower Extremity Screen: Addressed, no concerns noted ROM - Lower Extremity Screen: Addressed, no concerns noted Gait Training: Gait Assessment/Training Distance (m): (100 feet) Surface: Even, Smooth/hard Device: Front-wheeled walker Level of Assistance: Modified Independent Stability: pt has WBOS with gait Assessment of Gait: short step length Training/Intervention: VCs to have more erect posture with usage of FWW at all times Response: pt fatigues after amb today needing to sit and rest, states her legs feel too weak to walk any more at this time Team Communication: Patient's nurse was contacted and patient's status was discussed, Discussed patient's care with OT Upon arrival in room patient was found supine in bed, needs including call payton/light in reach. Following treatment patient was left supine in bed, needs including call payton/light in reach. Assessment Discharge Considerations: Barriers to Discharge Home: None Clinical Impression: Patient is a 67 y.o. who has been hospitalized 0 day(s) with an admitting diagnosis of: Weakness General [R53.1] Pain Left Upper Quadrant [R10.12]. Prior to hospitalization patient was completing daily activities I with assistive devices prn. Currently, patient presents with impairments including abdominal pain limiting ability to amb long distances and needed frequent sitting rest breaks resulting in the following functional deficits: limited mobility. Rehab potential: Patient has Excellent potential to achieve established physical therapy goals within the time frame outlined below. Education was provided regarding evaluative findings, diagnosis, prognosis, potential risks and benefits of rehabilitation interventions. Comorbid Conditions: Neurodegenerative disorder, Diabetes Personal Factors: Safety awareness Clinical Presentation: Stable Examination elements: 1-2 Clinical Decision Making: Low complexity clinical decision making Functional Goals and Timeframes: Plan Therapy Attestation: PT Frequency: PT Frequency: One-time visit PT Duration: Inpatient PT Received On Date: Requires Inpatient Follow-Up: Next Inpatient Appointment: Plan for next session: PT Plan Comments: One time visit today for PT Eval no further skilled PT needed Treatment interventions may include: Time Spent with Patient Evaluations PT Eval - Low Complexity: 18 min Therapeutic Interventions Gait Training (min): 15 min Time Tracking Total Timed Units (min): 15 min Total Treatment Time (min): 33 min * Mitzy De La O, RDN, LD - 10/24/2022 1:52 PM CDTAssociated Order(s): Dietitian consult for positive admission nutrition screen; Dietitian consult for positive admission nutrition screen Dietitian consult for positive admission nutrition screen Referring Provider: Faustina Scott M.D. Dietitian consult for positive admission nutrition screen Referring Provider: Lincoln Branch M.D. NUTRITION ASSESSMENT OVERVIEW: Pt admitted with weakness. Multiple attempts to interview patient with no success. PMHx includes DMT2, last A1C 9.8% on 09/17/22. Will change diet to 60 gm CHO given dx, A1C and provider note in H&P. Receives Glipizide 20 mg QHS, SSI and Glargine 20 U QHS. CBW is questionable, admit wts have 2 different weights on the same day, likely d/t ED vs floor scale. Plan to get a re-weight tomorrow AM.Wts either 59.5 kg or [address] significant wt loss from 1 month ago of 67.8 kg. 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 Will send Glucerna daily given significant weight loss. No further changes at this time, will monitor. Admitting Diagnosis: Weakness General [R53.1] Pain Left Upper Quadrant [R10.12] CURRENT NUTRITION ORDERS: Adult Diet Regular PMH: MS, DMT2, GERD, Chronic Recurring Pancreatitis, Bipolar Disorder, HTN and HLD. ESTIMATED NEEDS: Weight Used for Equation Calculations: 60 kg kcal/k-35 Estimated Energy Needs (Low): 1800 kcal/day Estimated Energy Needs (High): 2100 kcal/day Weight Used to Calculate Protein Needs (Kg): 60 kg Method to Estimate Protein Needs (g/kg): 1 - 1.2 Estimated Protein Needs (Low): 60 Estimated Protein Needs (High): 72 Estimated Fluid Needs: 1800 mL/day ANTHROPOMETRICS Height: 162.6 cm Admission Weight: 62.1 kg Weight: 60 kg Weight change since admission: -2.14 kg Weight Used for Equation Calculations: 60 kg BMI (Calculated): 22.7 kg/m?? [place] Body Weight (Calculated) : 54.6 kg Weight Change History: Wt X 1 month: 67.8 kg (down either 8 or 12% from admit wts of 62.1 kg and 59.5 kg - requesting a re-weight). NUTRITION DIAGNOSIS: Predicted suboptimal nutrient intake related to weakness as evidenced by appetite varies depending on nausea. NUTRITION PLAN AND INTERVENTIONS: Nutrition Interventions Interventions: Increase nutrient intake with small, frequent meals and/or snacks, Modify diet order, Medical food supplement, Vitamin and mineral supplements, Other (Diet to 60 gm CHO; Glucerna daily.) MONITORING AND EVALUATION: Nutrition Monitoring/Evaluation Monitoring: Meals/Supplement Intake, Weight Status * Aileen Barnes, O.T. - 10/24/2022 1:07 PM CDT Occupational Therapy Inpatient Evaluation/Treatment By co-signing this note, the provider certifies the therapy being provided to this patient is reasonable and necessary for the diagnosis or treatment of this patient. SUBJECTIVE Patient's Name: Yary Eatono Referring/Attending Provider: Faustina Scott M.D. Medical Diagnosis: Weakness General [R53.1] Pain Left Upper Quadrant [R10.12] Reason for Referral: OT eval and treat-obs Onset Date: 10/23/22 Payor: [employer] / Plan: [facility] MEDICARE COMPLETE / Product Type: PPO / PERTINENT MEDICAL / SURGICAL HISTORY: Patient Active Problem List Diagnosis Pancreatitis Chronic Recurrent (HCC) Multiple Sclerosis (HCC) Multiple Sclerosis (HCC) Hypertension Essential Primary Bipolar Disorder (HCC) Bloating Abdominal Diabetes Mellitus Type 2 (HCC) Diabetes Mellitus Type 2 With Diabetic Neuropathy (HCC) Duodenitis Dysphagia Gastroesophageal Reflux Disease NOS Hematuria Hyperlipidemia Migraine Headache Rhinitis Seasonal Unspecified Abnormalities Of Gait And Mobility Pancreatitis Acute (HCC) Weakness General Pain Abdominal Chronic Past Surgical History: Procedure Laterality Date CHOLECYSTECTOMY [...] N/A 2003 Repair of rectocele TUBAL LIGATION History of Present Illness: Patient admitted under observation with abdominal pain and weakness. She has MS, DM, chronic pancreatitis Prior Function/Occupational Profile: Prior Mobility/Functional Transfers Level of [place]: Independent Previous Transfer/Mobility Assistance Comments: She has a 4ww but typically doesn't use Prior Function/Occupational Profile Dominant Hand: Right Lives With: Spouse, Family ADL Assistance: Independent IADL/Homemaking Assistance: Independent Driving: Does not drive Occupational Role: Retired Home Living Type of Home: House Home Layout: Able to live on main level with bedroom/bathroom Home Access: Ramped entrance Bathroom Shower/Tub: Tub/shower unit Tub/shower unit location: Main floor Home Living Comments: She reports getting down into the tub Home Equipment Gait Devices Owned: Four-wheeled walker Bathroom Equipment: Toilet safety frame, Grab bars in shower Patient/Caregiver Goals: return home Patient Comments: Patient reports feeling better today and walking better but continues with pain in abdomen Activity Orders (From admission, onward) Start Ordered 10/23/22 1451 Activity: Up with Assistance Until discontinued Comments: Encourage patient to be up for meals Ambulate as much as possible considering previous activity level and physical functioning Resume activity level following recovery from procedure and/or tests unless otherwise directed Question: Activity Level: Answer: Up with Assistance 10/23/22 6194 OBJECTIVE Measures - Tools AM-PAC Activity: How much help from another person does the patient currently need??? Putting on and taking off regular lower body clothing?: None Putting on and taking off regular upper body clothing?: None Taking care of personal grooming such as brushing teeth?: None Bathing (including washing, rinsing, drying)?: A Little Toileting, which includes using toilet, bedpan, or urinal?: None Eating meals?: None AM-PAC Activity: Score Daily Activities Raw Score (max 24): 23 Daily Activities Standardized Score: 51.12 Cognition Cognitive assessment method: Therapist observations Arousal/Alertness: Appropriate responses to stimuli Attention: Addressed, no concerns noted Initiation: No difficulty with initiation Orientation: Oriented X4 Patient is able to move supine to/from sit without physical assist. She does complain of abdominal pain occasionally throughout session but today it did not impair her function. She was able to bend feet up and reach to don/doff socks. She was able to stand and ambulate in/out of bathroom without physical assist (supervision). She stood without need for UE support and could manage her own clothing. She has a 4ww at home. She has no concerns at this time with her self cares although she does continue with abdominal pain at times. She gets down into a tub at home but does have a grab bar clamped onto side of tub. Education with various types of chairs but she does like to get down and soak. Gave her handout of an lift bath chair but do know finances are an issue. She reports working to get a [place] social services coordinator. She is alsolooking into getting assistance with her prescriptions financially. Team Communication: Patient's nurse was contacted and patient's status was discussed, Discussed patient's care with PT Upon arrival in room patient was found supine in bed, needs including call payton/light in reach. Following treatment patient was left seated on EOB Assessment Discharge Considerations: Barriers to Discharge Home: None Clinical Impression: Patient is a 67 y.o. who was admitted to the hospital with a diagnosis of: Weakness General [R53.1] Pain Left Upper Quadrant [R10.12]. Prior to hospitalization patient was completing daily activities independently. Currently, patient presents with limitations including abdominal pain and occasional weakness. Today she was able to manage her basic self cares without assist and ambulate short distances without assistance. Rehab potential: Patient has good potential to achieve established occupational therapy goals within the time frame outlined below. Education was provided regarding evaluative findings, diagnosis, prognosis, potential risks and benefits of rehabilitation interventions. Comorbid Conditions: Neurodegenerative disorder, Diabetes Personal Factors: Safety awareness Functional Goals and Timeframes: OT Goal #1: Patient will dress self at supervision to return home OT Goal #1 Date: 10/24/22 OT Goal #1 Status: Achieved OT Goal #2: Patient will toilet self at supervision level to return home OT Goal #2 Date: 10/24/22 Plan Therapy Attestation: Patient agrees with the plan of care and goals. OT Frequency: OT Frequency: One-time visit She has met goals and can return home once medically stable Plan: Plan of care initiated OT Plan Comments: one time treatment only Treatment interventions may include: Evaluation only Time Spent with Patient Evaluations OT Eval - Low Complexity : 22 min Time Tracking Total Treatment Time (min): 22 min * Taya Bhakta L.SKate - 10/24/2022 8:26 AM CDT Psychosocial Assessment SUBJECTIVE DEMOGRAPHIC INFORMATION Referral Source: Early Screen for Discharge Planning Referral Reason: Discharge Planning Person(s) present during interview: The patient in person. Previous Psychosocial Assessment : No Primary care clinic and provider: / ELSEWHERE, PCP They were advised of the various topics that will be assessed during this evaluation. They consented to proceed. The information provided in the assessment is based on review of the medical record aswell as the interview. They were advised that the content of this interview will be shared with the health care team. It was discussed that staff are mandated reporters and they reported understanding. HISTORY OF PRESENT ILLNESS The patient was admitted into observation from the Emergency Department for [facility]. SOCIAL HISTORY Family / Household: The patient is to [place]. They have two daughters, Estrella and Xiomy. They have two grandchildren. The patient's daughter, Xiomy lives next door. Spirituality / Anglican / Culture: No History: No Employment: The patient stated that she has been on disability. Psychosocial Risk Factors impacting the patient: trauma/stress Abuse, Neglect, Maltreatment, Trauma: Current: None reported. ENVIRONMENTAL SUPPORTS Current Living Situation: The patient lives with her , Keenan. Their daughter, Xiomy livesnext door. Anticipated modifications to the patient's home environment: None FUNCTIONAL STATUS (ADL's and IADL's) Dressing: independent Feeding: independent Bathing: independent Grooming: independent Toileting: independent Transfer to/from Bed, Chair, Etc.: independent Mobility: independent Meal Prep: independent Medication Setup/Administration: independent Telephone Use: independent Housekeeping: needs assistance (The patient mentioned that she wants assistance with cleaning. The patient understands that she could contact a private cleaning company or a warehouse attendant home care agency regarding cleaning assistance. The patient did not want any resources. The patient was encouraged to talk to her family about the cleaning assistance. Shopping: independent Managing Finances: independent It is anticipated that the patient will need assistance with cleaning, and transportation. ASSISTIVE DEVICES Patient has the following equipment: A two wheeled walker, a cane, a shower chair, and a power wheelchair. (The patient said that her power wheelchair needs to be repaired. However, she has not needed it recently. The patient said that she understands how to get it repaired.) Patient anticipates potentially needing the following additional equipment: none Transportation needs: support from family/friends FORMAL AND INFORMAL RESOURCES The patient does not have any formal services. She has family support. FINANCES/INSURANCE Primary insurance: AARP MEDICARE COMPLETE Secondary insurance: N/A Financial concerns: Yes. The patient mentioned that she cannot afford to pay privately for a cleaning service. She was encouraged to talk to her family. ADVANCE DIRECTIVES Advance Directive: Patient does not have advance directive, wants more information (The patient hasa health care directive that she could complete in her admission folder.) OBJECTIVE Suicide Risk and Safety Risk Assessment: Suicidal: No Homicidal: No The patient stated that her mental health has been okay. He has no concerns about harming herself or others. Current Stressors During the conversation the patient complained of having pain. The patient said that she received pain medication. The patient was reassured that physical and occupational therapies would assess her,and the hospitalist would address pain management. The patient inquired about cleaning assistance at home. The patient understands that she could arrange a warehouse attendant home care agency or a private cleaning company. The patient voiced a concern about paying privately for cleaning assistance. The patient was encouraged to talk to her family about cleaning assistance. Coping Skills/Strengths The patient has family support. ASSESSMENT / PLAN DISCUSSION This Shoe Repair Supervisor talked to the patient about discharge planning. She stated that her goal is to return home and her family could provide transportation. The patient inquired about cleaning assistance. She understands that she could arrange a warehouse attendant home care agency or a private cleaning company and pay privately. The patient was also encouraged to talk to her family about assisting with cleaning. IMPRESSION The patient is an 67 year old woman who is in observation for [facility]. She made eye contact, was alert, oriented, and engaged in the conversation. The patient has family support. INTERVENTIONS Explained the roles of hospital Social Work Completed the psychosocial assessment Discussed discharge planning Offered resources Provided Active and Empathetic Listening PLAN The patient plans to return home with her . Anticipated barriers to the transition of care/plan: This will be determined during the patient's hospitalization. Liz Dwyer 10/24/2022 documented in this encounter Nursing Notes * Erin Grove, R.N. - 10/24/2022 10:12 PM CDT Shift Goals: Identify possible barriers to meeting goals/advancing plan of care: N/A. End of Shift Summary: Patient is alert and oriented x3 and call light appropriate. Patient is VSS. Patient at beginning of shift stated that her pain is turning a good corner and she is on the mend. Patient put ammonia solution preparer light and asked floor charge nurse to turn off bed because it was too loud and she cannot sleep. Charge nurse turned off bed despite explanation of benefits of bed and possibleoutcomes of not having bed on. Patient still refused. Primary RN brought medications into room and patient became restless regarding pain worsening. Patient rated pain to RLQ of abdomen 6/10. PrimaryRN offered Oxycodone 5 mg due to order parameters and patient accepted. 25 minutes after administration, floor charge nurse answered patients call light and stated that She can manage her pain better at home. She feels like she is sleeping on a board (charge offered to turn bed back on and patientstill refused), she is tired of her IV beeping all the time, she does not understand why we are letting her eat despite her diagnosis of pancreatitis. Patient is repeating that she just wants to go home. Patient communicated with ammonia solution preparer career discovery teacher (Dr. Cardenas). Primary RN went into room to implement career discovery teacher's recommendations and patient still continues to state that she wants to go home.Patient signed AMA paperwork and IV removed. Patient left accompanied with in private vehicle at 2300. Problem: SAFETY ADULT Goal: Maintain a safe environment Outcome: Not Progressing Problem: SAFETY ADULT - RISK FOR FALL AND OR FALL INJURY Goal: Patient remains free from fall/fall injury Outcome: Not Progressing Problem: PAIN - ADULT Goal: PT VERBALIZES/DEMONSTRATES ADEQUATE COMFORT LEVEL OR BASELINE Outcome: Not Progressing Problem: KNOWLEDGE DEFICIT Goal: Patient/family/caregiver demonstrates understanding of disease process, treatment plan, medications, and discharge instructions Outcome: Not Progressing Problem: INFECTION - ADULT Goal: Absence of infection during hospitalization Outcome: Not Progressing Problem: SKIN/TISSUE INTEGRITY Goal: Skin/Tissue integrity maintained or improved Outcome: Not Progressing Goal: Oral and Nasal mucous membranes remain intact Outcome: Not Progressing Problem: DISCHARGE PLANNING Goal: Patient discharge needs identified Outcome: Not Progressing Problem: POTENTIAL OR ACTUAL PRESSURE INJURY-ADULT Goal: Manage sensory Perception deficits to maintain and/or improve skin integrity Outcome: Not Progressing Goal: Maintain optimal skin moisture to ensure or improve skin integrity Outcome: Not Progressing Goal: Achieve optimal activity and/or mobility to maintain or improve skin integrity Outcome: Not Progressing Goal: Nutrient intake appropriate for improving, restoring or maintaining skin integrity Outcome: Not Progressing Goal: Minimize friction and/or shear to maintain or improve skin integrity Outcome: Not Progressing Problem: Compromised Skin Integrity Goal: Skin/Tissue integrity maintained or improved Outcome: Not Progressing Goal: Oral and Nasal mucous membranes remain intact Outcome: Not Progressing Goal: Incisions, wounds, or drain sites healing without S/S of infection Outcome: Not Progressing Problem: Incontinence and/or Moisture Goal: Skin integrity is maintained or improved Outcome: Not Progressing * Roya Nicholson R.N. - 10/24/2022 6:03 PM CDT Problem: SAFETY ADULT Goal: Maintain a safe environment Outcome: Progressing Problem: PAIN - ADULT Goal: PT VERBALIZES/DEMONSTRATES ADEQUATE COMFORT LEVEL OR BASELINE Outcome: Progressing Problem: INFECTION - ADULT Goal: Absence of infection during hospitalization Outcome: Progressing Problem: SKIN/TISSUE INTEGRITY Goal: Skin/Tissue integrity maintained or improved Outcome: Progressing Problem: Compromised Skin Integrity Goal: Skin/Tissue integrity maintained or improved Outcome: Progressing Shift Goals: Patient will have adequate pain management and remain safe. Identify possible barriers to meeting goals/advancing plan of care: Confusion/uncontrolled pain End of Shift Summary: Yary had an okay day overall. She remained alert and oriented x3 to questions, but the best way to describe her overall demeanor for the day was off. She would report pain and then be fast asleep. And then wake up and report pain and fall asleep again. She refused her scheduled tylenol because she says it is hard on her liver. However, she was requesting prn oral oxy and prn IV fentanyl. Two doses of each were given today when patient asked. Mild memory loss. Patient had BM this morning with PARTS FINISHER. When nurse asked if she had one, she stated no she is lying I never hadone. LUE PIV remains patent and intact. Continuous 50 ml/hr fluids running for hydration. Patient ambulated assist x1 gb and walker. VSS on room air. * Kira Zamarripa M.SPedrito, R.N. - 10/24/2022 2:35 AM CDT Problem: SAFETY ADULT Goal: Maintain a safe environment Outcome: Progressing Problem: SAFETY ADULT - RISK FOR FALL AND OR FALL INJURY Goal: Patient remains free from fall/fall injury Outcome: Progressing Problem: PAIN - ADULT Goal: PT VERBALIZES/DEMONSTRATES ADEQUATE COMFORT LEVEL OR BASELINE Outcome: Progressing Problem: KNOWLEDGE DEFICIT Goal: Patient/family/caregiver demonstrates understanding of disease process, treatment plan, medications, and discharge instructions Outcome: Progressing Problem: INFECTION - ADULT Goal: Absence of infection during hospitalization Outcome: Progressing Problem: SKIN/TISSUE INTEGRITY Goal: Skin/Tissue integrity maintained or improved Outcome: Progressing Goal: Oral and Nasal mucous membranes remain intact Outcome: Progressing Problem: DISCHARGE PLANNING Goal: Patient discharge needs identified Outcome: Progressing Problem: POTENTIAL OR ACTUAL PRESSURE INJURY-ADULT Goal: Minimize friction and/or shear to maintain or improve skin integrity Outcome: Progressing Problem: Compromised Skin Integrity Goal: Skin/Tissue integrity maintained or improved Outcome: Progressing Goal: Oral and Nasal mucous membranes remain intact Outcome: Progressing Problem: Incontinence and/or Moisture Goal: Skin integrity is maintained or improved Outcome: Progressing Shift Goals: Identify possible barriers to meeting goals/advancing plan of care: N/A End of Shift Summary: VSS, afebrile, A&Ox3, not call light appropriate. Bed alarms on for safety and impulsiveness. PIV intact with continuous infusion of 50 ml/hr NS. Pain rated 3/10 at start ofshift. When pt was awoken for vitals, pt then c/o pain 9/10; prn oxy given. When asked when pain started, pt states I didn't notice until you woke me up. Multiple complaints over bed motor being loud. Pt slept between cares without issue. Up x 2 to bathroom with SBA and GB. Pt refused walker and oral hygiene as she just wants to go back to sleep. No further issues overnight. * Lulú Christensen RIrving. - 10/23/2022 6:42 PM CDT Problem: SAFETY ADULT Goal: Maintain a safe environment Outcome: Progressing Problem: SAFETY ADULT - RISK FOR FALL AND OR FALL INJURY Goal: Patient remains free from fall/fall injury Outcome: Progressing Problem: PAIN - ADULT Goal: PT VERBALIZES/DEMONSTRATES ADEQUATE COMFORT LEVEL OR BASELINE Outcome: Progressing Problem: KNOWLEDGE DEFICIT Goal: Patient/family/caregiver demonstrates understanding of disease process, treatment plan, medications, and discharge instructions Outcome: Progressing Problem: INFECTION - ADULT Goal: Absence of infection during hospitalization Outcome: Progressing Problem: SKIN/TISSUE INTEGRITY Goal: Skin/Tissue integrity maintained or improved Outcome: Progressing Goal: Oral and Nasal mucous membranes remain intact Outcome: Progressing Problem: DISCHARGE PLANNING Goal: Patient discharge needs identified Outcome: Progressing Problem: POTENTIAL OR ACTUAL PRESSURE INJURY-ADULT Goal: Manage sensory Perception deficits to maintain and/or improve skin integrity Outcome: Progressing Goal: Maintain optimal skin moisture to ensure or improve skin integrity Outcome: Progressing Goal: Achieve optimal activity and/or mobility to maintain or improve skin integrity Outcome: Progressing Goal: Nutrient intake appropriate for improving, restoring or maintaining skin integrity Outcome: Progressing Goal: Minimize friction and/or shear to maintain or improve skin integrity Outcome: Progressing Problem: Compromised Skin Integrity Goal: Skin/Tissue integrity maintained or improved Outcome: Progressing Goal: Oral and Nasal mucous membranes remain intact Outcome: Progressing Goal: Incisions, wounds, or drain sites healing without S/S of infection Outcome: Progressing Problem: Incontinence and/or Moisture Goal: Skin integrity is maintained or improved Outcome: Progressing Shift Goals: Pain management Identify possible barriers to meeting goals/advancing plan of care: End of Shift Summary: Patient was admitted to the unit at approximately 1450. She presented to the emergency room with increased weakness and pain in the left side of her abdomen. She is on observation status for pancreatitis. Patient has complained of pain 6-910 on this shift which was treated with scheduled Tylenol, PRN oxycodone and fentanyl per Dr. Scott with some relief. PT to assess patient for ambulation assistance. Patient is alert and oriented x 3. Call light appropriate. VSS. Free from falls and injury. documented in this encounter ED Notes * Rivera Brandt, ATUL, C.N.P., M.S.N. - 10/23/2022 11:21 AM CDT SUBJECTIVE CHIEF COMPLAINT/REASON FOR VISIT Extremity Weakness and Abdominal Pain HISTORY OF PRESENT ILLNESS History provided by: Patient and relative REVIEW OF SYSTEMS Constitutional: Negative for chills and fever. HENT: Negative for facial swelling. Eyes: Negative for estee-orbital edema. Respiratory: Negative for cough and shortness of breath. Cardiovascular: Negative for chest pain and leg swelling. Gastrointestinal: Positive for abdominal pain and nausea. Negative for abdominal distention. Genitourinary: Positive for dysuria. Negative for flank pain, frequency and urgency. Musculoskeletal: Negative. Skin: Negative. Neurological: Positive for speech difficulty and weakness. Negative for dizziness, tremors, seizures, syncope, facial asymmetry, light-headedness, numbness, headaches and loss of balance. Psychiatric/Behavioral: Negative. All other systems reviewed and are negative. OBJECTIVE Initial Vitals Temperature 10/23/22 1056 (!) 35.4 ??C Pulse -- Heart Rate 10/23/22 1056 80 Resp Rate 10/23/22 1056 19 Blood Pressure 10/23/22 1056 107/72 SpO2 10/23/22 1056 97 % Pain Score 10/23/22 1057 8 PHYSICAL EXAMINATION Constitutional: Nursing note and vitals reviewed. No distress. HENT: Head: Normocephalic. Nose: Nose normal. Eyes: Conjunctivae are normal. Neck: No tracheal deviation present. Pulmonary/Chest: Effort normal. Abdominal: exhibits no distension. Musculoskeletal: General: No deformity. Neurological: Alert. Focal sensory deficits include right face. GCS eye subscore is 4. GCS verbal subscore is 5. GCS motor subscore is 6. Speech is slurred. Focal motor strengths include, strength tothe right arm, 4 /5. strength to the right leg, 4 /5. no weakness to the right foot, strength to the left arm, 4 /5. strength to the left leg /5. no weakness to the left foot, . Skin: Skin is normal color. ASSESSMENT/PLAN Yary Prince is a 67 y.o. female with history of MS, diabetes, GERD, and chronic pancreatitis presents to the ED concerning for abdominal pain as well as weakness. According to the spouse as well as the patient's she has been feeling weaker in addition to have slurring of speech since Saturday. Shewas seen in the ED in [place] and had abdominal workup done and subsequently discharged home afterward. Since then she noticed increasing weakness and has not been feeling better. She does endorse nausea. She denies any fevers or chills. Denies any chest pain or shortness of breath. She feels like she is not able to walk and is concerned regarding flare-up of her MS. The spouse reports when shehas flare of MS that it symptoms is similar but this time feels worse. Differential diagnosis includes choledocholithiasis, acute on chronic pancreatitis, MS flare up, sepsis, TIA, CVA, as well as others considered. On initial exam and presentation patient was laying on her belly complaining of pain as well as nausea. She was noted to have slurring of speech that is obvious. On strength testing she does have 4/5strength testing in the upper extremity. 5/5 strength to the right lower extremity but 3/5 testing to the left lower leg. However, the strength testing to the foot was 5/5 bilaterally. She does note to have bilateral ataxia. Again patient states that when she has flare of MS symptoms or similar as this presentation. Suspect this is likely her flare-up of MS versus less likely CVA. However, will obtain CT angio head and neck to rule out CVA. Her last known normal would be prior to Saturday. Her lab work returned reassuring but he angio head and neck shows no acute process. Did discuss case with neurology given concern for MS flare up and neuro has less suspicion at this time for flare-up. Plan: After discussion with neuro in [place], plan for admission for hydration and pain control. Dr. Ramsey kindly accepts for observation. NIH Stroke Scale 1A. Level of Consciousness: Alert, [place]en[place] Responsive 1B. Ask Month and Age: Both Questions Right 1C. Blink Eyes & Squeeze Hands: Performs Both Tasks 2. Best Gaze: Normal 3. Visual: No Visual Loss 4. Facial Palsy: Normal Symmetrical Movements 5A. Motor - Left Arm: No Drift 5B. Motor - Right Arm: No Drift 6A. Motor - Left Leg: No Drift 6B. Motor - Right Leg: No Drift 7. Limb Ataxia: Present in Two Limbs 8. Sensory Loss: Vllw-ca-Hxfmaxci Sensory Loss 9. Best Language: No Aphasia 10. Dysarthria: Sexx-hf-Pumfoftv Dysarthria 11. Extinction and Inattention: No Abnormality NIH Stroke Scale: 4 ED Course as of 10/23/22 1308 Tue Oct 23, 2022 1236 Reach out to [facility] for neuro consult. Awaiting return call. 1259 Neuro return call. Discussed treatment plan with him and he agrees with plan for admission. However, neuro this states given patient's age and diagnosis at 29 years old and has not been on any treatment for MS, neuro has low suspicion that this could be MS flare up and would recommend withholding metal prednisolone and treat her symptoms. Neuro would recommend inpatient MRI of the brain and neck if available, if not otherwise outpatient MRI of the brain and neck wants to discharge to confirm MS. Final Diagnoses: as of 10/23/22 1308 Weakness General Pain Left Upper Quadrant I discussed the management of the patient with: Hospitalist. Rivera Brandt APRN, C.N.P., M.S.N. 10/23/22 1308 Rivera Brandt APRN, C.N.P., M.S.N. 10/23/22 1308 * Izzy Santiago R.N. - 10/23/2022 10:58 AM CDT Pt has MS and has now become so weak that her states that she can not stand or walk Pt has a hxt of pancreatitis and thinks that abd pain is from a flair up Pt appears unkempt, thrashing around on stretcher and speech is slurred according to the Pt was at [facility] on Saturday, but they stated nothing was done Izzy Santiago R.N. 10/23/22 1101 Izzy Santiago R.N. 10/23/22 1102 documented in this encounter Plan of Treatment Upcoming Encounters Date Type Department Care Team (Latest Contact Info) Description 04/26/2023 10:40 AM CONCRETE BLOCK PLANT SUPERVISOR Virtual Visit Division of Gastroenterology in [place], [place] [address] [place] [address] [phone] Jose Roberto Patterson M.D. [address] [place] [address] [phone] 04/29/2023 9:30 AM CONCRETE BLOCK PLANT SUPERVISOR Appointment Division of Gastroenterology in [place], [place] [address] [place] [address] [phone] Jose Roberto Patterson M.D. [address] [place] [address] [phone] Shane Becerra M.D. [address] [place] [address], [place] [phone] Discharge Disposition: Home or Self Care documented as of this encounter Procedures Procedure Name Priority Date/Time Associated Diagnosis Comments GLUCOSE POCT, B Routine 10/24/2022 7:31 PM CDT GLUCOSE POCT, B Routine 10/24/2022 4:47 PM CDT GLUCOSE POCT, B Routine 10/24/2022 11:22 AM CDT GLUCOSE POCT, B Routine 10/24/2022 7:45 AM CDT CBC WITH DIFFERENTIAL, B Routine 10/24/2022 7:18 AM CDT BASIC METABOLIC PANEL, S/P Routine 10/24/2022 7:18 AM CDT GLUCOSE POCT, B Routine 10/23/2022 8:18 PM CDT GLUCOSE POCT, B Routine 10/23/2022 6:21 PM CDT GLUCOSE POCT, B Routine 10/23/2022 4:45 PM CDT GLUCOSE POCT, B Routine 10/23/2022 3:11 PM CDT BACTERIAL CULTURE, AEROBIC + SUSC, URINE STAT 10/23/2022 1:07 PM CDT URINALYSIS WITH MICROSCOPIC STAT 10/23/2022 1:07 PM CDT US GALLBLADDER AND OR BILIARY DUCTS RAD - Routine (most inpatients and all outpatients) 10/23/2022 1:05 PM CDT DX CHEST AP OR PA AND LATERAL 2 VIEWS RAD - Semiurgent (Fast; most ED patients; some inpatients) 10/23/2022 12:[address] HEAD NECK ANGIOGRAM WITH IV CONTRAST RAD - Semiurgent (Fast; most ED patients; some inpatients) 10/23/2022 12:13 PM CDT LACTATE, POCT, B Routine 10/23/2022 11:5 0 AM CDT HEPATIC FUNCTION PANEL, S STAT 10/23/2022 11:43 AM CDT C-REACTIVE PROTEIN (CRP), S/P STAT 10/23/2022 11:43 AM CDT LIPASE, S/P STAT 10/23/2022 11:43 AM CDT BMP WITH HGB/HCT, POCT, B STAT 10/23/2022 11:42 AM CDT CBC WITH DIFFERENTIAL, B STAT 10/23/2022 11:42 AM CDT documented in this encounter Results * (ABNORMAL) Glucose, POCT (10/24/2022 7:31 PM CDT) Glucose, POCT, B 244(H) 70 - 140 mg/dL 10/24/2022 7:31 PM CDT CNFL Blood 10/24/2022 7:31 PM CDT 10/24/2022 7:43 PM CDT Generic [facility] POCT ORDERABLES- MANUAL [facility] [address] [place] [id number], [facility] in [address] [address] * (ABNORMAL) Glucose, POCT (10/24/2022 4:47 PM CDT) Glucose, POCT, B 303(H) 70 - 140 mg/dL 10/24/2022 4:47 PM CDT CNFL Blood 10/24/2022 4:47 PM CDT 10/24/2022 5:00 PM CDT Generic [facility] POCT ORDERABLES- MANUAL [address] [address], [facility] in [address] [address] * (ABNORMAL) Glucose, POCT (10/24/2022 11:22 AM CDT) Glucose, POCT, B 282(H) 70 - 140 mg/dL 10/24/2022 11:22 AM CDT CNFL Blood 10/24/2022 11:2 2 AM CDT 10/24/2022 11:29 AM CDT Generic [facility] POCT ORDERABLES- MANUAL [address] [address], [facility] in [address] [address] * (ABNORMAL) Glucose, POCT (10/24/2022 7:45 AM CDT) Glucose, POCT, B 184(H) 70 - 140 mg/dL 10/24/2022 7:45 AM CDT CNFL Blood 10/24/2022 7:45 AM CDT 10/24/2022 7:54 AM CDT Generic [facility] POCT ORDERABLES- MANUAL [address] [address], [facility] in [address] [address] * (ABNORMAL) CBC with Differential, Blood (10/24/2022 7:18 AM CDT) [facility] Hemoglobin 13.5 11.6 - 15.0 g/dL 10/24/2022 7:35 AM CDT CNFL Hematocrit 40.0 35.5 - 44.9 % 10/24/2022 7:35 AM CDT CNFL Erythrocytes 4.27 3.92 - 5.13 x10(12)/L 10/24/2022 7:35 AM CDT CNFL MCV 93.7 78.2 - 97.9 fL 10/24/2022 7:35 AM CDT CNFL RBC Distrib Width 12.1(L) 12.2 - 16.1 % 10/24/2022 7:35 AM CDT CNFL Platelet Count 316 157 - 371 x10(9)/L 10/24/2022 7:35 AM CDT CNFL Leukocytes 9.4 3.4 - 9.6 x10(9)/L 10/24/2022 7:35 AM CDT CNFL Neutrophils 2.22 1.56 - 6.45 x10(9)/L 10/24/2022 7:35 AM CDT CNFL Lymphocytes 4.48(H) 0.95 - 3.07 x10(9)/L 10/24/2022 7:35 AM CDT CNFL Monocytes 0.83(H) 0.26 - 0.81 x10(9)/L 10/24/2022 7:35 AM CDT CNFL Eosinophils 1.76(H) 0.03 - 0.48 x10(9)/L 10/24/2022 7:35 AM CDT CNFL Basophils 0.06 0.01 - 0.08 x10(9)/L 10/24/2022 7:35 AM CDT CNFL Blood (Blood, Venous) 10/24/2022 7:18 AM CDT 10/24/2022 7:24 AM CDT Faustina Scott M.D. LAB BLOOD ADD-ON Performing Organization Address City/State/[facility] Co de Phone Number [facility]- [address] [address], [facility] in [address] [place] [address] * (ABNORMAL) Basic Metabolic Panel (10/24/2022 7:18 AM CDT) Potassium, P 3.8 3.6 - 5.2 mmol/L 10/24/2022 7:42 AM CDT CNFL Sodium, P 142 135 - 145 mmol/L 10/24/2022 7:42 AM CDT CNFL Chloride, P 108(H) 98 - 107 mmol/L 10/24/2022 7:42 AM CDT CNFL Bicarbonate, P 26 22 - 29 mmol/L 10/24/2022 7:42 AM CDT CNFL Anion Gap, P 8 7 - 15 10/24/2022 7:42 AM CDT CNFL BUN (Blood Urea Nitrogen), P 7 6 - 21 mg/dL 10/24/2022 7:42 AM CDT CNFL Creatinine 0.62 0.59 - 1.04 mg/dL 10/24/2022 7:42 AM CDT CNFL Estimated GFR (eGFR) >90 >=60 mL/min/BSA 10/24/2022 7:42 AM CDT CNFL Comment: Estimated GFR calculated using the 2020 CKD_EPI creatinine equation. Calcium, Total, P 9.0 8.8 - 10.2 mg/dL 10/24/2022 7:42 AM CDT CNFL Glucose, P 199(H) 70 - 140 mg/dL 10/24/2022 7:42 AM CDT CNFL Blood (Blood, Venous) 10/24/2022 7:18 AM CDT 10/24/2022 7:24 AM CDT Faustina Scott M.D. LAB BLOOD ADD-ON [facility] [address] [place] [address], [place] [facility] in [address] [address] * (ABNORMAL) Glucose, POCT (10/23/2022 8:18 PM CDT) Glucose, POCT, B 258(H) 70 - 140 mg/dL 10/23/2022 8:18 PM CDT CNFL Blood 10/23/2022 8:18 PM CDT 10/23/2022 8:26 PM CDT Generic [facility] POCT ORDERABLES- MANUAL [address] [address], [facility] in [address] [address] * (ABNORMAL) Glucose, POCT (10/23/2022 6:21 PM CDT) Glucose, POCT, B 144(H) 70 - 140 mg/dL 10/23/2022 6:21 PM CDT CNFL Blood 10/23/2022 6:21 PM CDT 10/23/2022 6:28 PM CDT Generic [facility] LAB POCT ORDERABLES- MANUAL [address] [address], [facility] in [address] [address] * (ABNORMAL) Glucose, POCT (10/23/2022 4:45 PM CDT) Glucose, POCT, B 185(H) 70 - 140 mg/dL 10/23/2022 4:45 PM CDT CNFL Blood 10/23/2022 4:45 PM CDT 10/23/2022 4:52 PM CDT Generic [facility] POCT ORDERABLES- MANUAL [address] [address], [facility] in [address] [address] * (ABNORMAL) Glucose, POCT (10/23/2022 3:11 PM CDT) Glucose, POCT, B 242(H) 70 - 140 mg/dL 10/23/2022 3:11 PM CDT CNFL Blood 10/23/2022 3:11 PM CDT 10/23/2022 3:18 PM CDT Generic [facility] POCT ORDERABLES- MANUAL Performing Organization Address City/[facility] Co de Phone Number [facility] [address] [place] [phone], [facility] CNFL [place] [address] * (ABNORMAL) Bacterial Culture, Aerobic + Susceptibility, Urine (10/23/2022 1:07 PM CDT) Pathologist [facility] Urine Culture Mixed microbiota (A) 10/24/2022 4:07 PM CDT ECLR Urine (Urine, Midstream) 10/23/2022 1:07 PM CDT 10/23/2022 8:45 PM CDT Comment:Specimen Source Site : Urine Rivera Brandt APRN C.N.P., M.S.N. LAB MICR OBIOLOGY - GENERAL ORDERABLES Performing Organization Address [facility] Co de Phone Number [facility] [address] [place] [address], [facility] ECLR [place] [address] * (ABNORMAL) Urinalysis with Microscopic: Urine, Midstream (10/23/2022 1:07 PM CDT) Source Urine, Urine, Midstream 10/23/2022 1:07 PM CDT CNFL Clarity Slightly Cloudy(A) Clear 10/23/2022 1:10 PM CDT CNFL Color Yellow 10/23/2022 1:10 PM CDT CNFL Comment: ----REFERENCE VALUE---- Colorless Yellow Hyacinth Blood Large(A) Negative 10/23/2022 1:10 PM CDT CNFL Nitrite Negative Negative 10/23/2022 1:10 PM CDT CNFL Leukocyte Esterase Negative Negative 10/23/2022 1:10 PM CDT CNFL Protein Negative mg/dL 10/23/2022 1:10 PM CDT CNFL Comment: ----REFERENCE VALUE---- Negative Trace Glucose >=1000(A) Negative mg/dL 10/23/2022 1:10 PM CDT CNFL Ketones, QI(U) Trace(A) Negative mg/dL 10/23/2022 1:10 PM CDT CNFL Bilirubin Negative Negative 10/23/2022 1:10 PM CDT CNFL pH 6.0 5.0 - 8.0 10/23/2022 1:10 PM CDT CNFL Specific [place] 1.010 1.001 - 1.035 10/23/2022 1:10 PM CDT CNFL Urobilinogen 0.2 0.2 - 1.0 mg/dL 10/23/2022 1:10 PM CDT CNFL White Blood Cells Occ-3 /hpf 10/23/2022 1:25 PM CDT CNFL Comment: ----REFERENCE VALUE---- Males: 0-3 Females: 0-10 Unknown: 0-10 Red Blood Cells 51-100(A) 0 - 2 /hpf 1:25 PM CDT CNFL Dysmorphic Red Blood Cells <=25 <=25 % 10/23/2022 1:25 PM CDT CNFL Squamous Cells Occ-3 /hpf 10/23/2022 1:25 PM CDT CNFL Bacteria Present(A) None Seen 10/23/2022 1:25 PM CDT CNFL Urine (Urine, Midstream) 10/23/2022 1:07 PM CDT 10/23/2022 1:07 PM CDT Rivera Brandt APRN C.N.P., M.S.N. LAB URIN E ORDERABLES [facility] [address] [place] [address], [facility] [address] [address] * US Gallbladder and or Biliary Ducts (10/23/2022 1:05 PM CDT) Anatomical Region Laterality Modality Abdomen, Ultrasound RST LOS, Ultrasound ARZ LOS, Ultrasound FLA LOS N/A Ultrasound 10/23/2022 1:05 PM CDT Impressions 10/23/2022 1:07 PM CDT 1. Prior cholecystectomy. No biliary ductal dilatation. 2. 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 Narrative 10/23/2022 1:07 PM CDT EXAM: US GALLBLADDER AND OR BILIARY DUCTS COMPARISON: Comparison October 19, 2022 FINDINGS: Gallbladder: Surgically absent. Negative sonographic Galvan sign. Intrahepatic ducts: Not dilated. Common duct: Not dilated. Aorta: Normal caliber. Other: Pancreatic ductal ectasia and intrapancreatic stones, similar to preceding CT October 19, 2022. Procedure Note Madhav Booker M.D. - 10/23/2022 EXAM: US GALLBLADDER AND OR BILIARY DUCTS COMPARISON: Comparison October 19, 2022 FINDINGS: Gallbladder: Surgically absent. Negative sonographic Galvan sign. Intrahepatic ducts: Not dilated. Common duct: Not dilated. Aorta: Normal caliber. Other: Pancreatic ductal ectasia and intrapancreatic stones, similar topreceding CT October 19, 2022. IMPRESSION: 1. Prior cholecystectomy. No biliary ductal dilatation. 2. Pancreatic ductal ectasia and pancreatic ductal stones as noted onprior axial imaging. Rivera Brandt APRN, C.N.P., M.S.N. IMG US P ROCEDURES * DX Chest AP or PA and Lateral 2 Views (10/23/2022 12:59 PM CDT) Anatomical Region Laterality Modality Chest, Thoracic RST LOS, Tho racic ARZ LOS, Thoracic FLA LOS N/A Digital Radiography 10/23/2022 1:02 PM CDT Impressions 10/23/2022 1:03 PM CDT Comparison 07/16/2018. No focal pneumonic opacity. No evidence of pneumothorax or pleural effusion. Normal cardiac size and mediastinal contours. Mild rotatory curvature of the spine is demonstrated. ??Excreted contrast is seen within the renal collecting systems. Narrative 10/23/2022 1:03 PM CDT EXAM: DX CHEST AP OR PA AND LATERAL 2 VIEWS Procedure Note Madhav Booker M.D. - 10/23/2022 EXAM: DX CHEST AP OR PA AND LATERAL 2 VIEWS IMPRESSION: Comparison 07/16/2018. No focal pneumonic opacity. No evidence ofpneumothorax or pleural effusion. Normal cardiac size and mediastinal contours. Mild rotatorycurvature of the spine is demonstrated. Excreted contrast is seen within the renal collectingsystems. Rivera Brandt APRN, C.N.P., M.S.N. IMG DIAG NOSTIC IMAGING PROCEDURES * CT Head Neck Angiogram with IV Contrast (10/23/2022 12:13 PM CDT) Anatomical Region Laterality Modality Head and Neck, Neuroradiolog y RST LOS, Neuroradiology ARZ [facility], Neuroradiology FLA LOS N/A Computed Tomography 10/23/2022 12:1 5 PM CDT Impressions 10/23/2022 12:30 PM CDT 1. ??Bilateral P2 segments have moderate grade stenoses. 2. ??Arteries of head and neck otherwise have atherosclerotic calcifications without additional significant stenosis. 3. ??Negative for acute infarct by CT. 4. ??Known multiple sclerosis. 5. ??Multiple pulmonary groundglass opacities are suspicious for infection. Narrative 10/23/2022 12:30 PM CDT EXAM: CT HEAD NECK ANGIOGRAM WITH IV CONTRAST Including 3-D image postprocessing. COMPARISON: CT head 07/16/18. FINDINGS: Right carotid system: No significant stenosis or dissection. Moderate atherosclerotic calcifications at the carotid bulb. Mild atherosclerotic calcifications at carotid siphon. Left carotid system: No significant stenosis or dissection. Mild calcifications at carotid bulb. Vertebral arteries: No significant stenosis or dissection. Vertebral arteries are codominant. Aortic arch: Normal branch pattern. Intracranial: Right P2 segment of ORTHOTIST/PROSTHETIST has multiple moderate grade stenoses (series 20 images 36-37, series 19 image 42). Left P2 segment has focal moderate grade stenosis (series 20 image 26). Intracranial arteries are otherwise negative for major vessel occlusion or significant stenosis. No aneurysm. Nonvascular findings: Brain: No acute infarct by CT. Chronic lacunar infarcts in bilateral basal ganglia. Stable low-attenuation within the cerebral white matter is compatible with patient's known multiple sclerosis. Stable cerebral and cerebellar volume loss. Negative for acute intracranial hemorrhage, herniation, or mass. Other: Imaged upper chest shows multiple pulmonary groundglass opacities, which are suspicious for pulmonary infection (series 13 image 42). Mild emphysema. Degenerative cervical spondylosis. Measurement of a carotid stenosis, if present, is based on length parameters that compare the residual internal carotid luminal diameter with that of the normal distal ICA in accordance with [place] Symptomatic Carotid Endarterectomy Trial (NASCET). Procedure Note Madhav Sliver M.D. - 10/23/2022 EXAM: CT HEAD NECK ANGIOGRAM WITH IV CONTRAST Including 3-D image postprocessing. COMPARISON: CT head 07/16/18. FINDINGS: Right carotid system: No significant stenosis or dissection. Moderateatherosclerotic calcifications at the carotid bulb. Mild atherosclerotic calcifications at carotidsiphon. Left carotid system: No significant stenosis or dissection. Mildcalcifications at carotid bulb. Vertebral arteries: No significant stenosis or dissection. Vertebralarteries are codominant. Aortic arch: Normal branch pattern. Intracranial: Right P2 segment of ORTHOTIST/PROSTHETIST has multiple moderate grade stenoses(series 20 images 36-37, series 19 image 42). Left P2 segment has focal moderate grade stenosis(series 20 image 26). Intracranial arteries are otherwise negative for major vessel occlusion orsignificant stenosis. No aneurysm. Nonvascular findings: Brain: No acute infarct by CT. Chronic lacunar infarcts in bilateral basalganglia. Stable low-attenuation within the cerebral white matter is compatible withpatient's known multiple sclerosis. Stable cerebral and cerebellar volume loss. Negative for acuteintracranial hemorrhage, herniation, or mass. Other: Imaged upper chest shows multiple pulmonary groundglass opacities,which are suspicious for pulmonary infection (series 13 image 42). Mild emphysema. Degenerativecervical spondylosis. Measurement of a carotid stenosis, if present, is based on lengthparameters that compare the residual internal carotid luminal diameter with that of the normal distalICA in accordance with [place] Symptomatic Carotid Endarterectomy Trial (NASCET). IMPRESSION: 1. Bilateral P2 segments have moderate grade stenoses. 2. Arteries of head and neck otherwise have atheroscleroticcalcifications without additional significant stenosis. 3. Negative for acute infarct by CT. 4. Known multiple sclerosis. 5. Multiple pulmonary groundglass opacities are suspicious forinfection. Rivera Brandt APRN, C.N.P., M.S.N. IMG CT P ROCEDURES * Lactate, POCT (10/23/2022 11:50 AM CDT) [facility] Lactate, POCT 0.72 0.50 - 2.20 mmol/L 10/23/2022 11:50 AM CDT CNFL Blood 10/23/2022 11:5 0 AM CDT 10/23/2022 11:56 AM CDT Generic [facility] POCT ORDERABLES - DEVICE Performing Organization Address [facility] [place] [address], [place] [address] * CRP (C-Reactive Protein) (10/23/2022 11:43 AM CDT) [facility] C-Reactive Protein (CRP), P 3.3 <5.0 mg/L 10/23/2022 4:27 PM CDT [facility] Blood (Blood, Venous) 10/23/2022 11:43 AM CDT 10/23/2022 11:44 AM CDT Mona Voss APRN.N.P., M.S.N. LAB BLOO D ADD-ON Performing Organization Address City/[facility]/[place] [address], [place] [address] * Hepatic Function Panel (10/23/2022 11:43 AM CDT) Bilirubin, Total, P <0.2 <=1.2 mg/dL 10/23/2022 4:27 PM CDT CNFL Bilirubin, Direct, P <0.2 0.0 - 0.3 mg/dL 10/23/2022 4:27 PM CDT CNFL Aspartate Aminotransferase (AST), P 18 8 - 43 U/L 10/23/2022 4:27 PM CDT CNFL Alanine Aminotransferase (ALT), P 13 7 - 45 U/L 10/23/2022 4:27 PM CDT CNFL Alkaline Phosphatase, P 93 35 - 104 U/L 10/23/2022 4:27 PM CDT CNFL Albumin, P 4.1 3.5 - 5.0 g/dL 10/23/2022 4:27 PM CDT CNFL Protein, Total, P 7.3 6.3 - 7.9 g/dL 10/23/2022 4:27 PM CDT CNFL Blood (Blood, Venous) 10/23/2022 11:43 AM CDT 10/23/2022 11:44 AM CDT Mona Voss APRN.N.P., M.S.N. LAB BLOO D ADD-ON [facility] [place] [address], [place] [address] * (ABNORMAL) Lipase (10/23/2022 11:43 AM CDT) Lipase, P 63(H) 13 - 60 U/L 10/23/2022 4: 27 PM CDT CNFL Blood (Blood, Venous) 10/23/2022 11:43 AM CDT 10/23/2022 11:44 AM CDT Mona Voss APRN.N.Santi., M.S.N. LAB BLOO D ADD-ON [facility] [address] [place] [address] [address] [place] [address], [facility] CNFL [facility] in [address] [place] [address] * (ABNORMAL) BMP with Hgb/Hct, POCT (10/23/2022 11:42 AM CDT) BUN (Blood Urea Nitrogen), POCT, B 8 6 - 21 mg/dL 10/23/2022 12:24 PM CDT CNFL Chloride, POCT, B 102 98 - 107 mmol/L 10/23/2022 12:24 PM CDT CNFL Creatinine, POCT, B 0.5(L) 0.6 - 1.0 mg/dL 10/23/2022 12:24 PM CDT CNFL Estimated GFR (eGFR), POCT CANCELED mL/min/BSA 10/23/2022 12:24 PM CDT CNFL Comment:Result canceled by t armond ancillary. Glucose, POCT, B 322(H) 70 - 140 mg/dL 10/23/2022 12:24 PM CDT CNFL Calcium, Ionized, POCT, B 4.90 4.65 - 5.30 mg/dL 10/23/2022 12:24 PM CDT CNFL Potassium, POCT, B 3.6 3.6 - 5.2 mmol/L 10/23/2022 12:24 PM CDT CNFL Sodium, POCT, B 138 135 - 145 mmol/L 10/23/2022 12:24 PM CDT CNFL Total CO2, POCT, B 24 22 - 29 mmol/L 10/23/2022 12:24 PM CDT CNFL Anion Gap, POCT, B 12 7 - 15 10/23/2022 12:24 PM CDT CNFL Hemoglobin, B CANCELED g/dL 10/23/2022 12:24 PM CDT CNFL Comment:Result canceled by t armond ancillary. Hematocrit, POCT, B CANCELED % 10/23/2022 12:24 PM CDT CNFL Comment:Result canceled by t armond ancillary. Blood (Blood, Venous) 10/23/2022 11:42 AM CDT 10/23/2022 11:44 AM CDT Rivera Brandt APRN, C.N.P., M.S.N. LAB POCT ORDERABLES - DEVICE [facility] [address] [place] [address], [facility] CNFL [place] [address] * (ABNORMAL) CBC with Differential, Blood (10/23/2022 11:42 AM CDT) Hemoglobin 14.3 11.6 - 15.0 g/dL 10/23/2022 11:49 AM CDT CNFL Hematocrit 42.1 35.5 - 44.9 % 10/23/2022 11:49 AM CDT CNFL Erythrocytes 4.59 3.92 - 5.13 x10(12)/L 10/23/2022 11:49 AM CDT CNFL MCV 91.7 78.2 - 97.9 fL 10/23/2022 11:49 AM CDT CNFL RBC Distrib Width 11.9(L) 12.2 - 16.1 % 10/23/2022 11:49 AM CDT CNFL Platelet Count 356 157 - 371 x10(9)/L 10/23/2022 11:49 AM CDT CNFL Leukocytes 10.0(H) 3.4 - 9.6 x10(9)/L 10/23/2022 11:49 AM CDT CNFL Neutrophils 5.39 1.56 - 6.45 x10(9)/L 10/23/2022 11:49 AM CDT CNFL Lymphocytes 2.69 0.95 - 3.07 x10(9)/L 10/23/2022 11:49 AM CDT CNFL Monocytes 0.73 0.26 - 0.81 x10(9)/L 10/23/2022 11:49 AM CDT CNFL Eosinophils 1.17(H) 0.03 - 0.48 x10(9)/L 10/23/2022 11:49 AM CDT CNFL Basophils 0.06 0.01 - 0.08 x10(9)/L 10/23/2022 11:49 AM CDT CNFL Blood (Blood, Venous) 10/23/2022 11:42 AM CDT 10/23/2022 11:44 AM CDT Sandra Voss APRNNAbner, M.S.N. LAB BLOO D ADD-ON [facility] [address] [place] [address], [facility] CNFL [facility] in [address] [address] documented in this encounter Visit Diagnoses Diagnosis Weakness General- Primary Weakness General Pain Left Upper Quadrant Diabetes Mellitus Type 2 (HCC) Diabetes Mellitus Type 2 With Diabetic Neuropathy (HCC) Bipolar Disorder (HCC) Gastroesophageal Reflux Disease NOS Hyperlipidemia Multiple Sclerosis (HCC) Pancreatitis Chronic Recurrent (HCC) Hypertension Essential Primary Pain Abdominal Chronic documented in this encounter Admitting Diagnoses Diagnosis Weakness General documented in this encounter Administered Medications Inactive Administered Medications - up to 3 most recent administrations Medication Order MAR Action Action Date Dose Rate Site acetaminophen tablet 1,000 mg (TYLENOL) 1,000 mg, oral, 4 times daily, First dose on Sat10/23/22 at 1700, Not to exceed 4 grams of acetaminophen in 24 hours all sources Given 10/24/2022 8:41 PM CDT 1,000 mg Given 10/24/2022 7:40 AM CDT 1,000 mg Given 10/23/2022 8:40 PM CDT 1,000 mg amLODIPine tablet 5 mg (NORVASC) 5 mg, oral, Daily at bedtime, First dose on Sat10/23/22 at 2100 Given 10/24/2022 8:41 PM CDT 5 mg Given 10/23/2022 8:40 PM CDT 5 mg atorvastatin tablet 20 mg (LIPITOR) 20 mg, oral, Daily at bedtime, First dose on Sat10/23/22 at 2100, atorvaSTATin 20 mg oral daily was interchanged for simvastatin 5-40 mg oral daily Given 10/24/2022 8:41 PM CDT 20 mg Given 10/23/2022 8:39 PM CDT 20 mg baclofen tablet 10 mg (LIORESAL) 10 mg, oral, Every 8 hours, First dose on Sat10/23/22 at 1730 Given 10/24/2022 5:54 PM CDT 10 mg Given 10/24/2022 10:00 AM CDT 10 mg Given 10/24/2022 1:09 AM CDT [address] capsule 30 mg (CYMBALTA) 30 mg, oral, Every morning, First dose on Sat10/24/22 at 0900, See tube feeding guidelines for tube feeding administration instructions. Given 10/24/2022 9:5 6 AM CDT [address] capsule 60 mg (CYMBALTA) 60 mg, oral, Daily at bedtime, First dose on Sat10/23/22 at 2100, See tube feeding guidelines for tube feeding administration instructions. Given 10/24/2022 8:41 PM CDT 60 mg Given 10/23/2022 8:39 PM CDT 60 mg enoxaparin injection 40 mg (LOVENOX) 40 mg, subcutaneous, Every 24 hours scheduled, First dose on Sat10/23/22 at 1515 Given 10/24/2022 9:55 AM CDT 40 mg Right Upper Arm (Nic k) Given 10/23/2022 3:45 PM CDT 40 mg Ri ght Upper Arm (Back) fentaNYL injection 25 mcg (SUBLIMAZE) 25 mcg, intravenous, Once, On Sat10/23/22 at 1121, For 1 dose Given 10/23/2022 11:46 AM CDT 25 mcg fentaNYL injection 25 mcg (SUBLIMAZE) 25 mcg, intravenous, Every 2 hour PRN, severe pain or score 7-10 of 10, breakthrough pain, Starting on Sat10/23/22 at 1450, For breakthrough pain unrelieved 30 minutes after PRN oral pain medication is used or if unable to take oral pain medication. Given 10/24/2022 4:00 PM CDT 25 mcg Given 10/24/2022 7:39 AM CDT 25 mcg Given 10/23/2022 4:16 PM CDT 25 mcg gabapentin capsule 300 mg (NEURONTIN) 300 mg, oral, 2 times daily, First dose on Sat10/23/22 at 2100 Given 10/24/2022 8:41 PM CDT 300 mg Given 10/24/2022 9:56 AM CDT 300 mg Given 10/23/2022 8:40 PM CDT 300 mg glipiZIDE tablet 20 mg (GLUCOTROL) 20 mg, oral, Daily at bedtime, First dose on Sat10/23/22 at 2100, ADMINISTER WITH A SNACK, this is how the patient takes this at home. Given 10/24/2022 8:40 PM CDT 20 mg Given 10/23/2022 8:40 PM CDT 20 mg HYDROmorphone injection 0.4 mg (DILAUDID) 0.4 mg, intravenous, Every 4 hours PRN, severe pain or score 7-10 of 10, Starting on Sat10/24/22 at 2230 HYDROmorphone injection 0.5 mg (DILAUDID) 0.5 mg, intravenous, Once, On Sat10/23/22 at 1301, For 1 dose Given 10/23/2022 1:09 PM CDT 0.5 mg insulin aspart U-100 injection 0-13 Units (NovoLOG FlexPen) 0-13 Units, subcutaneous, 3 times daily, First dose on Sat10/23/22 at 1700, Insulin Scale: Moderate Correction Scale, 140 - 179: 2 units, 180 - 219: 4 units, 220 - 259: 6 units, 260 - 299: 8 units, 300 - 339: 10 units, 340 - 379: 12 units, 380 - 399: 13 units, Greater than 399: Call service writing Insulin orders Given 10/24/2022 5:55 PM CDT 10 Units Right Lower Abdomen Given 10/24/2022 12:08 PM CDT 8 Units R ight Lower Abdomen Given 10/24/2022 7:45 AM CDT 4 Units Ri ght Lower Abdomen insulin glargine injection 20 Units 20 Units, subcutaneous, Daily at bedtime, First dose on Sat10/23/22 at 2100 Given 10/24/2022 8:44 PM CDT 20 Units Left Upper Arm (Back ) Given 10/23/2022 8:50 PM CDT 20 Units Le ft Upper Arm (Back) iohexoL 350 mg iodine/mL solution 100 mL (OMNIPAQUE) 100 mL, intravenous, Once in imaging, contrast, Starting on Sat10/23/22 at 1124, For 1 dose Given 10/23/2022 12:03 PM CDT 100 mL losartan tablet 100 mg (COZAAR) 100 mg, oral, Daily at bedtime, First dose on Sat10/23/22 at 2100 Given 10/24/2022 8:41 PM CDT 100 mg Given 10/23/2022 8:40 PM CDT 100 mg montelukast tablet 10 mg (SINGULAIR) 10 mg, oral, Daily at bedtime, First dose on Sat10/23/22 at 2100 Given 10/24/2022 8:41 PM CDT 10 mg Given 10/23/2022 8:40 PM CDT 10 mg ucdcxrmutfui-fsuk-KD-Ca-mineral s 400 mcg (folic acid) tablet 1 tablet (THERAPEUTIC-M) 1 tablet, oral, Daily, First dose on Sat10/24/22 at 0900 Given 10/24/2022 9:56 AM CDT 1 tablet NaCl 0.9 % bolus 1,000 mL 1,000 mL, intravenous, at 1,000 mL/hr, Administer over 1 Hours, Once, On Sat10/23/22 at 1121, For 1 dose 10/23/2022 11:47 AM CDT 1,000 mL 1000 mL/hr NaCl 0.9% infusion 50 mL/hr, intravenous, Continuous, Starting on Sat10/23/22 at 1515 10/24/2022 9:31 PM CDT 50 mL/hr 50 mL/hr Rate/Dose Verify 10/24/2022 1:49 PM CDT 50 mL/hr 50 mL/h r Rate/Dose Verify 10/24/2022 7:23 AM CDT 50 mL/hr 50 mL/h r ondansetron (PF) injection 4 mg (ZOFRAN) 4 mg, intravenous, Once, On Sat10/23/22 at 1121, For 1 dose Given 10/23/2022 11:47 AM CDT 4 mg ondansetron (PF) injection 4 mg (ZOFRAN) 4 mg, intravenous, Every 6 hours PRN, nausea, vomiting, Starting on Sat10/23/22 at 1450 Given 10/23/2022 5:21 PM CDT 4 mg oxyBUTYnin 24 hr tablet 10 mg (DITROPAN-XL) 10 mg, oral, Daily at bedtime, First dose on Sat10/23/22 at 2100, Swallow whole. Do NOT crush, chew, or split tablet. Given 10/24/2022 8:40 PM CDT 10 mg Given 10/23/2022 8:40 PM CDT 10 mg oxyCODONE IR tablet 10 mg (ROXICODONE) 10 mg, oral, Every 4 hours PRN, severe pain or score 7-10 of 10, Starting on Sat10/23/22 at 1450 Given 10/24/2022 6:23 AM CDT 10 mg Given 10/24/2022 1:12 AM CDT 10 mg Given 10/23/2022 4:01 PM CDT 10 mg oxyCODONE IR tablet 5 mg (ROXICODONE) 5 mg, oral, Every 4 hours PRN, moderate pain or score 4-6 of 10, Starting on Sat10/23/22 at 1450 Given 10/24/2022 9:29 PM CDT 5 mg Given 10/24/2022 1:50 PM CDT [address] tablet 40 mg (PROTONIX) 40 mg, oral, Daily before breakfast, First dose on Sat10/24/22 at 0700, Swallow whole. Do NOT crush, chew, or split tablet. Given 10/24/2022 6:18 AM CDT 40 mg pantoprazole injection 40 mg (PROTONIX) 40 mg, intravenous, Once, On Sat10/23/22 at 1745, For 1 dose, Administer IV push over 2 minutes. Add 10 mL NS to 40 mg vial for a final concentration of 4 mg/mL. Given 10/23/2022 6:34 PM CDT 40 mg QUEtiapine tablet 400 mg (SEROquel) 400 mg, oral, Daily at bedtime, First dose on Sat10/23/22 at 2100 Given 10/24/2022 8:41 PM CDT 400 mg Given 10/23/2022 8:39 PM CDT 400 mg sodium chloride 0.9 % flush 80 mL 80 mL, intravenous, Once in imaging, line care, Starting on Sat10/23/22 at 1124, For 1 dose Given 10/23/2022 12:03 PM CDT 80 mL sodium chloride 0.9 % injection 10 mL 10 mL, intravenous, As needed, line care, Starting on Sat10/23/22 at 1124 Given 10/23/2022 12:03 PM CDT 10 mL sodium chloride 0.9 % injection 3 mL 3 mL, intravenous, Every 12 hours scheduled, First dose on Sat10/23/22 at 2100, Peripheral Intravenous Catheter and Rapid Infusion Catheter, when no infusion to maintain patency Given 10/24/2022 9:56 AM CDT 3 mL documented in this encounter Active and Recently Administered Medications Times are shown in CDT. Scheduled Medication Order 10/22/2022 10/23/2022 10/24/2022 acetaminophen tablet 1,000 mg (TYLENOL) 1,000 mg, oral, 4 times daily, First dose on Sat10/23/22 at 1700, Not to exceed 4 grams of acetaminophen in 24 hours all sources 1616 (Given - Provider: Lulú Christensen R.N.)204 (Given - Provider: Mariela Arguello, R.N.) 0740 (Given - Provider: Roya Nicholson R.N.)1209 (Not Given - Provider: Roya Nicholson R.N. - Reason: Patient/family refused)1754 (Not Given - Provider: Roya Nicholson R.N. - Reason: Patient/family refused)2040 (Given - Provider: Erin Grove R.N.) amLODIPine tablet 5 mg (NORVASC) 5 mg, oral, Daily at bedtime, First dose on Sat10/23/22 at 2100 2039 (Given - Provider: Mariela Arguello, R.N.) 2040 (Given - Provider: Erin Grove R.N.) atorvastatin tablet 20 mg (LIPITOR) 20 mg, oral, Daily at bedtime, First dose on Sat10/23/22 at 2100, atorvaSTATin 20 mg oral daily was interchanged for simvastatin 5-40 mg oral daily 2038 (Given - Provider: Mariela Arguello, R.N.) 2040 (Given - Provider: Erin Grove R.N.) baclofen tablet 10 mg (LIORESAL) 10 mg, oral, Every 8 hours, First dose on Sat10/23/22 at 1730 1834 (Given - Provider: Ivone Mcintosh R.N.) 0109 (Given - Provider: Mariela Arguello, R.N.)1000 (Given - Provider: Roya Nicholson R.N.)1754 (Given - Provider: Roya Nicholson R.N.) DULoxetine DR capsule 30 mg (CYMBALTA) 30 mg, oral, Every morning, First dose on Sat10/24/22 at 0900, See tube feeding guidelines for tube feeding administration instructions. 09 (Given - Provid er: Roya Nicholson R.N.) DULoxetine DR capsule 60 mg (CYMBALTA) 60 mg, oral, Daily at bedtime, First dose on Sat10/23/22 at 2100, See tube feeding guidelines for tube feeding administration instructions. 2038 (Given - Provider: Mariela Arguello, R.N.) 2040 (Given - Provider: Erin Grove R.N.) enoxaparin injection 40 mg (LOVENOX) 40 mg, subcutaneous, Every 24 hours scheduled, First dose on Sat10/23/22 at 1515 1545 (Given - Provider: Lulú Christensen R.N.) 0955 (Given - Provider: Roya Nicholson R.N.) fentaNYL injection 25 mcg (SUBLIMAZE) (COMPLETED) 25 mcg, intravenous, Once, On Sat10/23/22 at 1121, For 1 dose 1146 (Given - Provider: Izzy Santiago RPedrito) fentaNYL injection 25 mcg (SUBLIMAZE) 25 mcg, intravenous, Once, On Sat10/23/22 at 1221, For 1 dose 1308 (Not Given - Provider: Izzy Santiago R.N. - Reason: Patient not available) gabapentin capsule 300 mg (NEURONTIN) 300 mg, oral, 2 times daily, First dose on Sat10/23/22 at 2100 204 (Given - Provider: Mariela Arguello, R.N.) 0956 (Given - Provider: Roya Nicholson R.N.)2041 (Given - Provider: Erin Grove R.N.) glipiZIDE tablet 20 mg (GLUCOTROL) 20 mg, oral, Daily at bedtime, First dose on Sat10/23/22 at 2100, ADMINISTER WITH A SNACK, this is how the patient takes this at home. 2039 (Given - Provider: Mariela Arguello, R.N.) 2039 (Given - Provider: Erin Grove R.N.) HYDROmorphone injection 0.5 mg (DILAUDID) (COMPLETED) 0.5 mg, intravenous, Once, On Sat10/23/22 at 1301, For 1 dose 1309 (Given - Provider: Izzy Santiago R.N.) insulin aspart U-100 injection 0-13 Units (NovoLOG FlexPen) 0-13 Units, subcutaneous, 3 times daily, First dose on Sat10/23/22 at 1700, Insulin Scale: Moderate Correction Scale, 140 - 179: 2 units, 180 - 219: 4 units, 220 - 259: 6 units, 260 - 299: 8 units, 300 - 339: 10 units, 340 - 379: 12 units, 380 - 399: 13 units, Greater than 399: Call service writing Insulin orders 1721 (Given - Provider: Lulú Christensen R.N.) 0745 (Given - Provider: Roya Nicholson R.N.)1208 (Given - Provider: Roya Nicholson R.N.)1755 (Given - Provider: Roya Nicholson R.N.) insulin glargine injection 20 Units 20 Units, subcutaneous, Daily at bedtime, First dose on Sat10/23/22 at 2100 2049 (Given - Provider: Mariela Arguello, R.N.) 2043 (Given - Provider: Erin Grove R.N.) losartan tablet 100 mg (COZAAR) 100 mg, oral, Daily at bedtime, First dose on Sat10/23/22 at 2100 2039 (Given - Provider: Mariela Arguello, R.N.) 2040 (Given - Provider: Erin Grove R.N.) montelukast tablet 10 mg (SINGULAIR) 10 mg, oral, Daily at bedtime, First dose on Sat10/23/22 at 2100 2039 (Given - Provider: Mariela Arguello, R.N.) 2040 (Given - Provider: Erin Grove R.N.) bytovsghsjee-iqyb-EJ-Ca-mine rals 400 mcg (folic acid) tablet 1 tablet (THERAPEUTIC-M) 1 tablet, oral, Daily, First dose on Sat10/24/22 at 0900 0956 (Given - Provid er: Roya Nicholson R.N.) NaCl 0.9 % bolus 1,000 mL (COMPLETED) 1,000 mL, intravenous, at 1,000 mL/hr, Administer over 1 Hours, Once, On Sat10/23/22 at 1121, For 1 dose 1147 (New Bag - Provider: Izzy Santiago R.N.)1247 (Due: Stopped - Provider: Izzy Santiago R.N.) ondansetron (PF) injection 4 mg (ZOFRAN) (COMPLETED) 4 mg, intravenous, Once, On Sat10/23/22 at 1121, For 1 dose 1147 (Given - Provider: Izzy Santiago R.N.) oxyBUTYnin 24 hr tablet 10 mg (DITROPAN-XL) 10 mg, oral, Daily at bedtime, First dose on Sat10/23/22 at 2100, Swallow whole. Do NOT crush, chew, or split tablet. 2039 (Given - Provider: Mariela Arguello, R.N.) 2039 (Given - Provider: Erin Grove R.N.) pantoprazole DR tablet 40 mg (PROTONIX) 40 mg, oral, Daily before breakfast, First dose on Sat10/24/22 at 0700, Swallow whole. Do NOT crush, chew, or split tablet. 617 (Given - Provid er: Mariela Arguello, R.N.) pantoprazole injection 40 mg (PROTONIX) (COMPLETED) 40 mg, intravenous, Once, On Sat10/23/22 at 1745, For 1 dose, Administer IV push over 2 minutes. Add 10 mL NS to 40 mg vial for a final concentration of 4 mg/mL. 1834 (Given - Provider: Ivone Mcintosh R.N.) QUEtiapine tablet 400 mg (SEROquel) 400 mg, oral, Daily at bedtime, First dose on Sat10/23/22 at 2100 2038 (Given - Provider: Mariela Arguello, R.NCarlos) 2040 (Given - Provider: Erin Grove R.N.) sodium chloride 0.9 % injection 3 mL 3 mL, intravenous, Every 12 hours scheduled, First dose on Sat10/23/22 at 2100, Peripheral Intravenous Catheter and Rapid Infusion Catheter, when no infusion to maintain patency 2053 (Not Given - Provider: Mariela Arguello, RCarlosNCarlos - Reason: Order parameters not met) 0956 (Given - Provider: Roya Nicholson R.N.)2043 (Not Given - Provider: Erin Grove R.N. - Reason: Other - Comment: Fluids running) Continuous Medication Order 10/22/2022 10/23/2022 10/24/2022 NaCl 0.9% infusion 50 mL/hr, intravenous, Continuous, Starting on Sat10/23/22 at 1515 1546 (Rate/Dose Change - Provider: Lulú Christensen R.N. - Comment: Patient has normal saline running at 200mL/hr in the ED. Rate changed to 50mL. Patient had recieved 539mL in ED and has 461mL left in bag)2326 (New Bag - Provider: Mariela Arguello, RCarlosNCarlos) 0723 (Rate/Dose Verify - Provider: Roya Nicholson R.N.)1349 (Rate/Dose Verify - Provider: Roya Nicholson R.N.)2131 (New Bag - Provider: Erin Grove R.N.)2220 (Stopped - Provider: Erin Grove R.N.) PRN Medication Order 10/22/2022 10/23/202210/2410/24/[address] tablet 325 mg 325 mg, oral, Every 6 hours PRN, mild pain or score 1-3 of 10, headaches, fever, Starting on Sat10/23/22 at 1714, Swallow whole. Do NOT crush, chew, or split tablet. bisacodyL suppository 10 mg (DULCOLAX) 10 mg, rectal, Daily PRN, constipation, Starting on Sat10/23/22 at 1450, Ordered sequence of administration: polyethylene glycol, then bisacodyl until BM achieved. fentaNYL injection 25 mcg (SUBLIMAZE) (CANCELED) 25 mcg, intravenous, Every 2 hour PRN, severe pain or score 7-10 of 10, breakthrough pain, Starting on Sat10/23/22 at 1450, For breakthrough pain unrelieved 30 minutes after PRN oral pain medication is used or if unable to take oral pain medication. 1616 (Given - Provider: Lulú Christensen R.N. - Comment: Patient was complaining of intense pain after taking the oxycodone. Dr. Scott wanted me to give the patient this IV dose of Fentanyl to try and get on top of her pain.) 0739 (Given - Provider: Roya Nicholson R.N.)1600 (Given - Provider: Roya Nicholson R.N.) HYDROmorphone injection 0.4 mg (DILAUDID) 0.4 mg, intravenous, Every 4 hours PRN, severe pain or score 7-10 of 10, Starting on Sat10/24/22 at 2230 iohexoL 350 mg iodine/mL solution 100 mL (OMNIPAQUE) (COMPLETED) 100 mL, intravenous, Once in imaging, contrast, Starting on Sat10/23/22 at 1124, For 1 dose 1203 (Given - Provider: Dany Davis(R)(CT), R.T.(R)) ipratropium-albuteroL 0.5-2.5 mg/3 mL nebulizer solution 3 mL (DUONEB) 3 mL, nebulization, Every 6 hours PRN, wheezing, shortness of breath, Starting on Sat10/23/22 at 1450 naloxone injection 0.1 mg 0.1 mg, intravenous, Every 5 min PRN, reversal, respiratory depression, For RASS Score -4 or less, respiratory rate of less than 8 breaths/min. Notify provider/service and rapid response team (if available at institution)., Starting on Sat10/23/22 at 1450, For 3 doses ondansetron (PF) injection 4 mg (ZOFRAN) 4 mg, intravenous, Every 6 hours PRN, nausea, vomiting, Starting on Sat10/23/22 at 1450 1721 (Given - Provider: Lulú Christensen R.N.) ondansetron ODT disintegrating tablet 4 mg (ZOFRAN-ODT) 4 mg, oral, Every 8 hours PRN, nausea, vomiting, Starting on Sat10/23/22 at 1714, When splitting ODT at bedside, handle with gloves and a pill splitter to prevent moisture contact. oxyCODONE IR tablet 10 mg (ROXICODONE)(Linked Group 1) 10 mg, oral, Every 4 hours PRN, severe pain or score 7-10 of 10, Starting on Sat10/23/22 at 1450 1601 (Given - Provider: Lulú Christensen RIrving.) 0112 (Given - Provider: Yury ArguelloSCarlosN., R.N.)0623 (Given - Provider: Mariela Arguello, R.N.)1350 (See Alternative - Provider: Roya Nicholson RCarlosN.)212 (See Alternative - Provider: Erin Grove RCarlosN.) oxyCODONE IR tablet 5 mg (ROXICODONE)(Linked Group 1) 5 mg, oral, Every 4 hours PRN, moderate pain or score 4-6 of 10, Starting on Sat10/23/22 at 1450 1601 (See Alternative - Provider: Lulú Christensen R.N.) 0112 (See Alternative - Provider: Yury ArguelloSCarlosNCarlos, R.N.)0623 (See Alternative - Provider: Francesco Arguello., R.N.)1350 (Given - Provider: Eladio GreeneN.)212 (Given - Provider: Erin Grove R.N.) polyethylene glycol powder packet 1 packet (MIRALAX) 1 packet, oral, Daily PRN, constipation, Starting on Sat10/23/22 at 1450, Ordered sequence of administration: polyethylene glycol, then bisacodyl until BM achieved. Avoid mixing with starch-based thickened liquids. sodium chloride 0.9 % flush 80 mL (COMPLETED) 80 mL, intravenous, Once in imaging, line care, Starting on Sat10/23/22 at 1124, For 1 dose 1203 (Given - Provider: Dany Davis(R)(CT), R.TCarlos(R)) sodium chloride 0.9 % injection 10 mL 10 mL, intravenous, As needed, line care, Starting on Sat10/23/22 at 1124 1203 (Given - Provider: Dany Davis(R)(CT), R.TCarlos(R)) sodium chloride 0.9 % injection 10 mL 10 mL, intravenous, As needed, line care, Starting on Sat10/23/22 at 1450, Peripheral Intravenous Catheter and Rapid Infusion Catheter, prior to blood sampling, post blood transfusion or post blood sampling sodium chloride 0.9 % injection 3 mL 3 mL, intravenous, As needed, line care, Starting on Sat10/23/22 at 1450, Prior to and following infusion and between multiple consecutive infusions: sodium chloride 0.9 % injection SUMAtriptan tablet 100 mg (IMITREX) 100 mg, oral, As needed, migraine, Starting on Sat10/23/22 at 1714, May repeat dose once in 2 hours if migraine is unresolved. Do not exceed 200 mg in 24 hours. Linked Groups Order Group 1: oxyCODONE IR tablet 5 mg (ROXICODONE)Jump to med 5 mg, oral, Every 4 hours PRN, moderate pain or score 4-6 of 10, Starting on Sat10/23/22 at 1450 Or oxyCODONE IR tablet 10 mg (ROXICODONE)Jump to med 10 mg, oral, Every 4 hours PRN, severe pain or score 7-10 of 10, Starting on Sat10/23/22 at 1450 documented in this encounter Additional Health Concerns Assessment Noted Time PHQ-9 Depression Total Score: 21 012 10:33 AM [employer] documented as of this encounter Care Teams Head Of Maintenance Relationship Specialty Start Date End Date Elsewhere, Pcp PCP - General Internal Medicine 06/26/22 documented as of this encounter
--- OUTSIDE RECORDS SUMMARY | 2023-04-10 10:19 | XMS_ITS | Encounter Summary ---
Author Name Unknown Organization [facility] Address [address] [place] [address] Care Team Providers Care Proofer Name Role Phone Elsewhere, Pcp Primary Care Provider Unavailabl e Reason for Referral * Outpatient (Routine) - Closed Specialty Diagnoses / Procedures Referred By Contact Referred To Contact Gastroenterology and Hepatology Diagnoses Abdominal Pain Nausea And Vomiting Frequency Urinary Urgency Urinary Pancreatitis Chronic (HCC) Abnormal Findings On Diagnostic Imaging Of Other Abdominal Regions Including Retroperitoneum Jackson Wren P.A.-C. [address] [place] [phone] [facility] Referral ID Status Reason Start Date Expiration Date Visits Re quested Visits Authorized [id number] Closed 10/19/2022 10/18/2025 1 1 Reason for Visit * Reason Comments Abdominal Pain Encounter Details Date Type Department Care Team (Late st Contact Info) Description 10/19/2022 2:48 PM CDT - 10/19/2022 7:19 PM CDT Emergency [facility] Emergency Department [address] [place] [phone] Jackson Wren P.A.-C. [address] [place] [phone] Abdominal Pain (Primary Dx); Nausea And Vomiting; Frequency Urinary; Urgency Urinary; Pancreatitis Chronic (HCC); Abnormal Findings On Diagnostic Imaging Of Other Abdominal Regions Including Retroperitoneum Discharge Disposition: Home or Self Care Social [...] Date Recorded Dental: Regular Dentist Unknown 05/20/19 Sex and Gender Information Value Date Recorded Sex Assigned at Female 01/01/2023 9:08 AM CDT Gender Identity Female 01/01/2023 9:08 AM CDT Sexual Orientation Straight 01/01/2023 9: 08 AM CDT documented as of this encounter Last Filed Vital Signs Vital Sign Reading Time Taken Comments Blood Pressure 141/79 10/19/2022 6:45 PM CDT Pulse 67 10/19/2022 5:00 PM CDT Temperature 36.7 ??C (98.1 ??F) 10/19/2022 4:15 PM CD T Respiratory Rate 20 10/19/2022 3:13 PM CDT Oxygen Saturation 96% 10/19/2022 5:00 PM CDT Inhaled Oxygen Concentration - - Weight 62.1 kg (137 lb) 10/19/2022 2:48 PM CDT Height - - Body Mass Index 23.5 09/07/2022 2:40 PM CDT documented in this encounter Discharge Instructions * Discharge Instructions* Jackson Wren P.A.-C. - 10/19/2022 7:12 PM CDT You were examined and treated today in the [facility] Emergency Department (ED) on an emergency basis. This visit is not a substitute for comprehensive and ongoing medical care. In most cases, you must let your primary physician evaluate you again. Call your doctor today to advise them ofyour ED visit and arrange for out patient follow up. Tell your doctor about any new or lasting problems. After you leave the ED today, please follow the instructions provided to you. Return to the Emergency Department for new, worsening, or persistent symptoms. As we discussed please follow-up with Gastroenterology within 1-3 days to re- evaluate today complaint and continue management. As we discussed please follow-up with Gastroenterology within 1-3 days to re- evaluate today complaint and continue management. As we discussed please follow-up PCP within 1-3 days to re-evaluate today complaint and continue management or return back to ER immediately if any new or worsening signs/symptoms develop. Get help right away if: Your pain does not go away as soon as your doctor says it should. You cannot stop vomiting. Your pain is only in areas of your belly, such as the right side or the left lower part of the belly. You have bloody or black poop, or poop that looks like tar. You have very bad pain, cramping, or bloating in your belly. You have signs of not having enough fluid or water in your body (dehydration), such as: Dark pee, very little pee, or no pee. Cracked lips. Dry mouth. Sunken eyes. Sleepiness. Weakness. You have trouble breathing or chest pain. * Attachments The following attachments cannot be sent through Care Everywhere. * Chronic Pancreatitis (Namibian) * Abdominal Pain Adult [id number]-[id number] (Namibian) documented in this encounter Medications at Time [...] Units under the skin. 0 09/17/2022 02/19/2023 documented as of this encounter ED Notes * Vika Gill R.N. - 10/19/2022 7:19 PM CDT RN entered pt room around 1730 preparing to hang a bag of fluids the provider ordered. Pt informed RN she was told by provider that she was being discharged. RN confirmed this with the provider. Provider then told pt he wanted to wait until the urine analysis labs returned. Pt was comfortable with this at the time (1730). Pt waited about another hour until she asked again about discharge, and provider informed her he was still waiting on the urine labs to come back. Pt appeared reluctant, but continued to wait. Around 191, RN inquired about discharge because the patient was becoming uncomfortable with her pain. Provider went into patient room and pulled up the labs that were still in process to show the patient. Provider pointed to the screen and said What does this say? What does this say? It says in process. I don't have any control over how long the labs take. Provider promptly left the room. RN sat with patient, while she expressed her frustration in tears. She stated that he has been so rude the whole time I've been here and he didn't do anything for me and he's an assho le. RN empathized with the patient and gave her the discharge paperwork and encouraged her and herhusband to fill out a patient experience complaint. Upon returning to the unit, RN informed provider and his superior that the patient was unhappy with the way she was treated and spoken to, and thatshe would be filing a patient complaint. Provider responded, ok. Vika Gill R.N. 10/19/221942 * Jackson Wren P.A.-C. - 10/19/2022 5:25 PM CDT Images from the original note were not included. SUBJECTIVE CHIEF COMPLAINT/REASON FOR VISIT Abdominal Pain HISTORY OF PRESENT ILLNESS Yary Prince is a 67 y.o. female with a pertinent medical history of MS, Pancreatitis Chronic Recurrent, hypertension, diabetes type 2, diabetic neuropathy, presents today for abdominal pain. Patient reports that she has a history of chronic pancreatitis who she been having chronic abdominal pain for many months which she can not explain her baseline daily pain because she states it fluctuates on pain scale. Patient stated in last week that her chronic abdominal pain that became progressively worse within the past week without any improvement. Patient came to the ED further evaluationmanagement. Patient abdominal discomfort located in the left upper quadrant area, pain is sharp in nature, constant, nonradiating and rated a 9/10 on pain scale. Patient complained of nausea vomiting rating her nausea the 4/10 on scale. Patient complained of REVIEW OF SYSTEMS Constitutional: Negative for chills and fever. HENT: Negative for congestion, drooling, ear discharge, hearing loss, mouth sores, nosebleeds, sorethroat, trouble swallowing and voice change. Eyes: Negative for photophobia, pain and visual disturbance. Respiratory: Negative for chest tightness and shortness of breath. Gastrointestinal: Positive for abdominal pain. Negative for nausea and vomiting. Genitourinary: Negative for dysuria, flank pain, frequency and urgency. Musculoskeletal: Negative for back pain, neck pain and neck stiffness. Skin: Negative for itching and rash. Neurological: Negative for dizziness and syncope. Psychiatric/Behavioral: Negative for agitation, behavioral problems and confusion. All other systems reviewed and are negative. OBJECTIVE Initial Vitals Temperature 10/19/22 1513 36.9 ??C Pulse Rate 10/19/22 1513 79 Heart Rate -- Resp Rate 10/19/22 1513 20 Blood Pressure 10/19/22 1513 126/76 SpO2 10/19/22 1513 96 % Pain Score 10/19/22 1510 10 - Worst possible pain PHYSICAL EXAMINATION Constitutional: Nursing note and vitals reviewed. Vital signs are normal. She appears not listless and not lethargic. She appears not cachectic. She is active and cooperative. She is easily aroused. Non-toxic appearance. She does not have a sickly appearance. She does not appear ill. No distress. HENT: Head: Normocephalic and atraumatic. No signs of injury. There is normal jaw occlusion. Right Ear: Hearing, tympanic membrane, external ear and ear canal normal. Left Ear: Hearing, tympanic membrane, external ear and ear canal normal. Nose: Nose normal. No nasal discharge. Mouth/Throat: Oropharynx is clear and moist. Mucous membranes are moist. No tonsillar exudate. Dental: Good dentition. No obvious dental caries Eyes: Conjunctivae, EOM and lids are normal. Right eye exhibits no discharge. Left eye exhibits no discharge. Pupils are equal. Periorbital area normal appearing. Neck: Trachea normal and phonation normal. Neck supple. No JVD present. No Brudzinski's sign and noKernig's sign noted. No thyroid mass and no thyroid tenderness present. Cardiovascular: Normal rate, regular rhythm, S1 normal, S2 normal, normal heart sounds, intact distal pulses, normal pulses and normal peripheral perfusion. Exam reveals no gallop, no S3, no S4, no distant heart sounds, no friction rub, no decreased pulses and no clicks. Pulses are palpable. Pulsesare no weak pulses. No murmur heard. Pulses: Popliteal pulses are 2+ on the right side, and 2+ on the left side. Dorsalis pedis pulses are 2+ on the right side, and 2+ on the left side. Radial pulses are 2+ on the right side, and 2+ on the left side. Capillary refill: takes less than 3 secondsEdema: no edema noted Pulmonary/Chest: Effort normal and breath sounds normal. There is normal air entry. No accessory muscle usage or stridor. No tachypnea. No respiratory distress. Expiration is no prolonged expiration.Air movement is not decreased. She has no decreased breath sounds. She has no wheezes. She has no rhonchi. She has no rales. She exhibits no retraction. Abdominal: Soft and abdomen not firm. Normal appearance, bowel sounds are normal and non-distended.exhibits no distension, no ascites, no pulsatile midline mass, no mass, no Marx-Rome's sign and no Alex's sign. There is abdominal tenderness in the left upper quadrant. There is no rigidity, no rebound, no guarding, no CVA tenderness, no tenderness at McBurney's point, negative Galvan's sign, no Lenzburg sign and no Rovsing's sign. No hernia. Musculoskeletal: General: No tenderness, deformity or edema. Normal range of motion. Cervical back: Normal, full passive range of motion without pain, normal range of motion and neck supple. Thoracic back: Normal. Lumbar back: Normal. Right upper leg: Normal. Left upper leg: Normal. Right lower leg: Normal. Left lower leg: Normal. Lymphadenopathy: She has no cervical adenopathy. Neurological: Alert, oriented to person, place, and time and easily aroused. She has normal sensation, normal strength and cranial nerves II through XII intact. She is not disoriented and responsive.No cranial nerve deficit. Normal speech. She exhibits normal muscle tone. Coordination and gait normal. Skin: Skin is warm, dry, intact and normal color. No bruising noted. She is not diaphoretic. Psychiatric: She has a normal mood and affect. Speech pattern is normal and behavior is normal. Judgment and thought content normal. Cognition and memory are normal. ED Medication Administration from 10/19/2022 1446 to 10/19/2022 1725 Date/Time Order Dose Route Action Action by 10/19/2022 1510 CDT NaCl 0.9 % bolus 1,000 mL 1,000 mL intravenous New Bag Magali, A 10/19/2022 1639 CDT NaCl 0.9 % bolus 1,000 mL 0 mL intravenous Stopped Picht, R 10/19/2022 1511 CDT ondansetron ODT disintegrating tablet 4 mg (ZOFRAN-ODT) -- oral See AlternativeDvorak, A 10/19/2022 1511 CDT ondansetron (PF) injection 4 mg (ZOFRAN) 4 mg intravenous Given Magali, A 10/19/2022 1510 CDT fentaNYL injection 50 mcg (SUBLIMAZE) 50 mcg intravenous Given Magali, A 10/19/2022 1640 CDT fentaNYL injection 50 mcg (SUBLIMAZE) 50 mcg intravenous Given Picht, R 10/19/2022 1605 CDT iohexoL 300 mg iodine/mL solution 1-200 mL (OMNIPAQUE) 100 mL intravenous GivenPetty M 10/19/2022 1605 CDT sodium chloride (PF) 0.9 % injection 1-100 mL 50 mL intravenous Given Ford, M ASSESSMENT/PLAN IMPRESSION AND PLAN Yary Prince is a 67 y.o. female with a pertinent medical history of listed above presents today for abdominal pain. Physical exam is remarkable for abdominal pain located in the left upper quadrant area, bilaterally with moderate tenderness palpation but no other gross abnormalities noted. Labs remarkable will leukocytosis without shift which appears to be chronic when compared to previous labs. Urinalysis positive ketones. Elevated blood sugar but patient is currently not in DKA. The remainder of labs within normal limits. CT abdomen/pelvis was remarkable for Sequelae of chronic pancreatitis with multiple parenchymal and intraductal calcifications resulting in upstream dilation ofthe main pancreatic duct. No peripancreatic fluid or inflammatory stranding. Patient was updated about labs and imaging using every day language. Patient was informed that her CT finding is unchangedwhen compared to previous CT imaging. Patient was informed due to having intractable pain that willadmit patient to medicine for pain management. Patient was in agreement with this decision. I went to re-evaluate patient's pain level which patient was smiling and does not appear to be in any discomfort. I asked the patient if she would like continue with admissions for pain management. Patient stated that her pain has significantly improved and preferred to be discharged. Patient was asked again are you sure you do not want to be admitted for pain management and the patient deferred admission. The admission request was removed. Patient requested for a GI follow-up which I placed a referral. Patient had a pending urinalysis which was not completed. I informed the patient that I would like to complete a urinalysis dueto complaints of urinary symptoms. Patient stated that she will wait for results. Patient came out of the room several times requesting for the results of the urinalysis. On every occasion I reassured the patient that I am still waiting for the results of the process.. Patient came out again stating that she would like to leave because the results is taking long to process. I ask the patient to come back into room to show her on the screen the labs are still processing and as soos as the results are completed I will update. I also gave her the option to leave and follow-up with her PCP with results. Patient then ask for additional pain medication which I informed her I will not give her anymore pain medication because she informed me that her pain has resolved. Patient was given the option for admission for pain management but she informed me her pain had resolved and deferred admission. Patient got upset that I did not give her any additional pain medications. Patient was dischargedfrom the hospital. DIFFERENTIAL DIAGNOSIS Chronic pancreatitis exacerbation, diverticulitis, colitis, obstruction, bowel perforation, peptic ulcer disease, biliary disease, GERD I reviewed previous medical records including lab results and documentation from previous visits. I personally reviewed the lab result(s) and my interpretation is abnormal and documented in ED Course. I reviewed the radiology report(s) and personally reviewed the radiology image(s). The Radiology exam interpretation(s) is/are abnormal but unchanged from previous exam and documented in ED Course.CPR: No CPR performed. ED Course as of 10/29/22 165SatOct 19, 2022 1531 CBC with Differential, Blood(!): Hemoglobin 12.8 Hematocrit 38.2 Erythrocytes 4.01 MCV 95.3 RBC Distrib Width 11.9(!) Platelet Count 325 White Blood Cell Count 12.1(!) Neutrophils 4.67 Lymphocytes 4.71(!) Monocytes 0.91(!) Eosinophils 1.68(!) Basophils 0.10(!) Remarkable for leukocytosis which she appears to be chronic but without shift. H&H is stable. 1606 Lipase: Lipase, S 31 Unremarkable for normal lipase. 1606 Hepatic Function Panel(!): Bilirubin, Total, S 0.3 Bilirubin, Direct, S <0.2 Aspartate Aminotransferase (AST), S 16 Alanine Aminotransferase (ALT), S 13 Alkaline Phosphatase, S 83 Albumin, S 3.9 Protein, Total, S 6.2(!) Remarkable for normal LFTs 1630 CT Abdomen Pelvis with IV Contrast Sequelae of chronic pancreatitis with multiple parenchymal and intraductal calcifications resulting in upstream dilation of the main pancreatic duct. No peripancreatic fluid or inflammatory stranding. 1723 CT Abdomen Pelvis with IV Contrast Sequelae of chronic pancreatitis with multiple parenchymal and intraductal calcifications resulting in upstream dilation of the main pancreatic duct. No peripancreatic fluid or inflammatory stranding. 1729 Patient re-evaluated with significant improvement in abdominal pain 1900 Patient was initially admitted for intractable pain due to her chronic pancreatitis. Patient was re-evaluated, she was smiling in the room having a conversation with significant other. I ask thepatient if she wants to continue with plan to be admitted for her intractable pain. Patient states that her pain has significantly improved and she rather be discharged home. Patient states that she would like to have a follow-up with Gastroenterology. I informed the patient that I will give her follow-up with Gastroenterology. Patient was asking to leave which she was informed that I'm waiting for her urinalysis in order to be discharged. She ask for more pain medication and I informed the patient that I would not give her any more pain medication. Patient became upset states that she does not want to wait for her urinalysis. Patient was discharged. 1905 Patient is refusing to wait for further urinalysis to rule out UTI. Patient complained of urinary symptoms stating that she wants to leave. I inform patient that I will be given a follow-up withher PCP on Saturday so she can follow with the results of her urine. Final Diagnoses: as of 10/29/22 1652 Abdominal Pain Nausea And Vomiting Frequency Urinary Urgency Urinary Pancreatitis Chronic (HCC) Abnormal Findings On Diagnostic Imaging Of Other Abdominal Regions Including Retroperitoneum - Sequelae of chronic pancreatitis with multiple parenchymal and intraductal calcifications resulting in upstream dilation of the main pancreatic duct. Jackson Wren P.A.-C. 10/31/22 1645 * Nakita De Los Santos R.N. - 10/19/2022 2:51 PM CDT Patient presents from the [facility] for concerns of pancreatitis. Patient has LUQ pain that started more acute on chronically last evening. Patient hasn't been able to eat since then and has had nausea and vomiting. She explains she also has left flank pain/left back pain and is concerned for aUTI as well as the abdominal pain. Her primary wanted to send her via ambulance, but she drove. She took 10mg of Oxycodone at 1:30pm, currently rating her pain at a 10/10. Nakita De Los Santos R.N. 10/19/22 1458 documented in this encounter Plan of Treatment Upcoming Encounters Date Type Department Care Team (Latest Contact Info) Description 04/26/2023 10:40 AM TEST SPECIALIST Virtual Visit Division of Gastroenterology in [place], [place] [address] [place] [phone] Jose Roberto Patterson M.D. [address] [place] [phone] 04/29/2023 9:30 AM TEST SPECIALIST Appointment Division of Gastroenterology in [place], [place] [address] [place] [phone] Jose Roberto Patterson M.D. [address] [place] [phone] Shane Becerra M.D. [address] [place] [phone] Discharge Disposition: Home or Self Care Scheduled Referrals Name Type Priority Associated Diagnoses Orde r Schedule POST ED VISIT Gastroenterology and Hepatology Outpatient Referral Routine Abdominal Pain Nausea And Vomiting Frequency Urinary Urgency Urinary Pancreatitis Chronic (HCC) Abnormal Findings On Diagnostic Imaging Of Other Abdominal Regions Including Retroperitoneum Expected: 10/22/2022, Expires: 01/20/2024 documented as of this encounter Procedures Procedure Name Priority Date/Time Associated Diagnosis Comments HC OSMOLALITY ASSAY URINE STAT 10/19/2022 5:30 PM CDT DIPSTICK, U STAT 10/19/2022 5:30 PM CDT PH, RANDOM, U STAT 10/19/2022 5:30 PM CDT MICROSCOPIC MANUAL STAT 10/19/2022 5: 30 PM CDT BACTERIAL CULTURE, AEROBIC + SUSC, URINE STAT 10/19/2022 5:30 PM CDT URINALYSIS WITH MICROSCOPIC STAT 10/19/2022 5:[address] ABDOMEN PELVIS WITH IV CONTRAST RAD - Semiurgent (Fast; most ED patients; some inpatients) 10/19/2022 4:08 PM CDT HEPATIC FUNCTION PANEL, S STAT 10/19/2022 3:17 PM CDT PROTHROMBIN TIME (PT), P STAT 10/19/2022 3:17 PM CDT CBC WITH DIFFERENTIAL, B STAT 10/19/2022 3:17 PM CDT LIPASE, S/P STAT 10/19/2022 3:17 PM CDT LACTATE, B/P STAT 10/19/2022 3:17 PM CDT BASIC METABOLIC PANEL, S/P STAT 10/19/2022 3:17 PM CDT documented in this encounter Results * (ABNORMAL) Dipstick, Urine (10/19/2022 5:30 PM CDT) Hemoglobin, QL, U Trace(A) Negative 10/19/2022 6:39 PM CDT DTL Leukocyte Esterase, U Negative Negative 10/19/2022 6:39 PM CDT DTL Nitrite, U Negative Negative 10/19/2022 6:39 PM CDT DTL Ketone, U 5(A) Negative mg/dL 10/19/2022 6:39 PM CDT DTL Glucose, U Negative Negative mg/dL 10/19/2022 6:39 PM CDT DTL Urine 10/19/2022 5:30 PM CDT 10/19/2022 5:50 PM CDT Mago Potter M.D. LAB URINE ORDERABL ES [facility] [address] [place] [address], [facility] [address] [place] [address] * Osmolality, Urine (10/19/2022 5:30 PM CDT) Pathologist [facility] Osmolality, U 597 150 - 1150 mOsm/kg 10/19/2022 7:05 PM CDT DTL Urine 10/19/2022 5:30 PM CDT 10/19/2022 5:50 PM CDT Mago Potter M.D. LAB URINE ORDERABL ES Performing Organization Address City/[facility] Co de Phone Number [facility] [address] [place] [address] * pH, Random, Urine (10/19/2022 5:30 PM CDT) pH, Random, U 5.5 4.5 - 8.0 10/19/2022 7:05 PM CDT DTL Urine 10/19/2022 5:30 PM CDT 10/19/2022 5:50 PM CDT Mago Potter M.D. LAB URINE ORDERABL ES Performing Organization Address [facility] Co de Phone Number [facility] [address] [place] [address] * Microscopic Manual (10/19/2022 5:30 PM CDT) Microscopy Normal 10/19/2022 7:21 PM CDT DTL RBC <3 <3 /hpf 10/19/2022 7:21 PM CDT DTL WBC 1-3 /hpf 10/19/2022 7:21 PM CDT DTL Comment: ----REFERENCE VALUE---- 1-3 ??(Males) 1-10 (Females) Casts, Hyaline Occas /lpf 10/19/2022 7:21 PM CDT DTL Crystals Calcium Oxalate crystals present 10/19/2022 7:21 PM CDT DTL Urine 10/19/2022 5:30 PM CDT 10/19/2022 5:50 PM CDT Mago Potter M.D. LAB URINE ORDERABL ES Performing Organization Address City/[facility]/ZIP Co de Phone Number [facility] [address] DTL [facility] [address] [place] [address] * Bacterial Culture, Aerobic + Susceptibility, Urine (10/19/2022 5:30 PM CDT) Urine Culture No growth after 1 day of incubation. 10/21/2022 7:18 AM CDT DTL Urine (Urine, Midstream) 10/19/2022 5:30 PM CDT 10/19/2022 9:07 PM CDT Comment:Specimen Source Site : Urine Jackson Wren P.A.-C. LAB MICROBIOLOGY - GENERAL ORDERABLES Performing Organization Address City/[facility]/ZIP Co de Phone Number [facility] [address] [place] [address], [facility] [address] [place] [address] * (ABNORMAL) Urinalysis with Microscopic: Urine, Midstream (10/19/2022 5:30 PM CDT) Source Urine, Urine, Midstream 10/19/2022 5:50 PM CDT DTL Color, U [place](A) 10/19/2022 5:50 PM CDT DTL Clarity, U Clear 10/19/2022 5:50 PM CDT DTL Protein, U 37(H) <26 mg/dL 10/19/2022 6:39 PM CDT DTL Protein/Osmol ality 0.62(H) <0.42 ratio 10/19/2022 7:05 PM CDT DTL Predicted 24 HR Protein, U 433(H) <229 mg/24 h 10/19/2022 7:05 PM CDT DTL Predicted Range 107-1754 mg/24 h 10/19/2022 7:05 PM CDT DTL Urine (Urine, Midstream) 10/19/2022 5:30 PM CDT 10/19/2022 5:50 PM CDT Jackson Wren P.A.-C. LAB URINE ORDERA BLES Performing Organization Address City/[facility]/ZIP Co de Phone Number [facility] [address] [place] [address], [place] DTL [facility] [address] [place] [address] * CT Abdomen Pelvis with IV Contrast (10/19/2022 4:08 PM CDT) Anatomical Region Laterality Modality Abdomen, Pelvis, Abdominal R ST LOS, Abdominal ARZ LOS, Abdominal FLA LOS N/A Computed Tomograp hy, Computed Tomography 10/19/2022 4:07 PM CDT Impressions 10/19/2022 4:30 PM CDT Sequelae of chronic pancreatitis with multiple parenchymal and intraductal calcifications resulting in upstream dilation of the main pancreatic duct. No peripancreatic fluid or inflammatory stranding. Narrative 10/19/2022 4:30 PM CDT EXAM: ??CT ABDOMEN PELVIS WITH IV CONTRAST COMPARISON: ??CT abdomen and pelvis with IV contrast 09/06/2022. FINDINGS: ??Sequelae of chronic pancreatitis with mild pancreatic parenchymal atrophy and multiple parenchymal and intraductal calcifications. The largest intraductal stone in the head of the pancreas measures 8 mm, with resultant upstream dilation of the the main pancreatic duct which measures up to 9 mm in diameter. No peripancreatic fluid or inflammatory stranding. No focal pancreatic lesion. Focal hepatic steatosis adjacent to the falciform ligament. Cholecystectomy. Mild increase in dilation of the common bile duct measuring up to 7 mm in diameter. Normal appearance of the spleen, kidneys, and bilateral adrenal glands. The small and large intestine are normal in caliber. Hysterectomy. No lymphadenopathy in the abdomen or pelvis. Normal caliber abdominal aorta with mild aortoiliac atherosclerosis. Degenerative changes of the spine. Intraosseous hemangioma in the T12 vertebral body. Patchy opacities in the right lower lobe are stable and likely represent atelectasis. Left basilar atelectasis. Procedure Note Woo Ryder M.D. - 10/19/2022 EXAM: CT ABDOMEN PELVIS WITH IV CONTRAST COMPARISON: CT abdomen and pelvis with IV contrast 09/06/2022. FINDINGS: Sequelae of chronic pancreatitis with mild pancreaticparenchymal atrophy and multiple parenchymal and intraductal calcifications. The largest intraductal stonein the head of the pancreas measures 8 mm, with resultant upstream dilation of the the mainpancreatic duct which measures up to 9 mm in diameter. No peripancreatic fluid or inflammatorystranding. No focal pancreatic lesion. Focal hepatic steatosis adjacent to the falciform ligament.Cholecystectomy. Mild increase in dilation of the common bile duct measuring up to 7 mm in diameter. Normalappearance of the spleen, kidneys, and bilateral adrenal glands. The small and large intestine arenormal in caliber. Hysterectomy. No lymphadenopathy in the abdomen or pelvis. Normal caliber abdominalaorta with mild aortoiliac atherosclerosis. Degenerative changes of the spine. Intraosseoushemangioma in the T12 vertebral body. Patchy opacities in the right lower lobe are stable and likelyrepresent atelectasis. Left basilar atelectasis. IMPRESSION: Sequelae of chronic pancreatitis with multiple parenchymal andintraductal calcifications resulting in upstream dilation of the main pancreatic duct.No peripancreatic fluid or inflammatory stranding. Mona Casillas APRN.N.P., Fiona.N.P., M.S.N. IMG CT PROCEDURES * Prothrombin Time (PT) (10/19/2022 3:17 PM CDT) Prothrombin Time, P 12.4 9.4 - 12.5 sec 10/19/2022 3:33 PM CDT [facility] INR 1.1 0.9 - 1.1 10/19/2022 3:33 PM CDT [facility] Comment: ----ADDITIONAL INFORMATION---- Standard intensity warfarin therapeutic range: 2.0 to 3.0 ?? High intensity warfarin therapeutic range: 2.5 to 3.5 Blood (Blood, Venous) 10/19/2022 3:17 PM CDT 10/19/2022 3:24 PM CDT Mona Casillas APRN.N.P., Fiona.N.P., M.S.N. LAB BLOOD ADD-ON [facility] [address] [place] [address], [facility] [address] [place] [address] * Lactate (10/19/2022 3:17 PM CDT) [facility] Lactate, P 0.8 0.5 - 2.2 mmol/L 10/19/2022 3:38 PM CDT [facility] Blood (Blood, Venous) 10/19/2022 3:17 PM CDT 10/19/2022 3:24 PM CDT Jackson Wren P.A.-C. LAB BLOOD NON AD D-ON [facility] [address] [place] [address], [facility] [address] [place] [address] * (ABNORMAL) CBC with Differential, Blood (10/19/2022 3:17 PM CDT) [facility] Hemoglobin 12.8 11.6 - 15.0 g/dL 10/19/2022 3:31 PM CDT [facility] Hematocrit 38.2 35.5 - 44.9 % 10/19/2022 3:31 PM CDT [facility] Erythrocytes 4.01 3.92 - 5.13 x10(12)/L 10/19/2022 3:31 PM CDT [facility] MCV 95.3 78.2 - 97.9 fL 10/19/2022 3:31 PM CDT [facility] RBC Distrib Width 11.9(L) 12.2 - 16.1 % 10/19/2022 3:31 PM CDT [facility] Platelet Count 325 157 - 371 x10(9)/L 10/19/2022 3:31 PM CDT [facility] Leukocytes 12.1(H) 3.4 - 9.6 x10(9)/L 10/19/2022 3:31 PM CDT [facility] Neutrophils 4.67 1.56 - 6.45 x10(9)/L 10/19/2022 3:31 PM CDT [facility] Lymphocytes 4.71(H) 0.95 - 3.07 x10(9)/L 10/19/2022 3:31 PM CDT [facility] Monocytes 0.91(H) 0.26 - 0.81 x10(9)/L 10/19/2022 3:31 PM CDT [facility] Eosinophils 1.68(H) 0.03 - 0.48 x10(9)/L 10/19/2022 3:31 PM CDT [facility] Basophils 0.10(H) 0.01 - 0.08 x10(9)/L 10/19/2022 3:31 PM CDT [facility] Blood (Blood, Venous) 10/19/2022 3:17 PM CDT 10/19/2022 3:24 PM CDT Jackson Wren P.A.-C. LAB BLOOD ADD-ON Performing Organization Address City/[facility]/ZIP Co de Phone Number [facility] [address] [place] [address] * Lipase (10/19/2022 3:17 PM CDT) Lipase, S 31 13 - 60 U/L 10/19/2022 4: 06 PM CDT DTL Blood (Blood, Venous) 10/19/2022 3:17 PM CDT 10/19/2022 3:46 PM CDT Jackson Wren P.A.-C. LAB BLOOD ADD-ON Performing Organization Address City/[facility]/ZIP Co de Phone Number [id number] [place] [address] [place] [address] * (ABNORMAL) Hepatic Function Panel (10/19/2022 3:17 PM CDT) Bilirubin, Total, S 0.3 <=1.2 mg/dL 10/19/2022 4:06 PM CDT DTL Bilirubin, Direct, S <0.2 0.0 - 0.3 mg/dL 10/19/2022 4:06 PM CDT DTL Aspartate Aminotransferase (AST), S 16 8 - 43 U/L 10/19/2022 4:06 PM CDT DTL Alanine Aminotransferase (ALT), S 13 7 - 45 U/L 10/19/2022 4:06 PM CDT DTL Alkaline Phosphatase, S 83 35 - 104 U/L 10/19/2022 4:06 PM CDT DTL Albumin, S 3.9 3.5 - 5.0 g/dL 10/19/2022 4:06 PM CDT DTL Protein, Total, S 6.2(L) 6.3 - 7.9 g/dL 10/19/2022 4:06 PM CDT DTL Blood (Blood, Venous) 10/19/2022 3:17 PM CDT 10/19/2022 3:46 PM CDT Jackson Wren P.A.-C. LAB BLOOD ADD-ON [facility] [address] [place] [address], [facility] [address] [place] [address] * (ABNORMAL) Basic Metabolic Panel (10/19/2022 3:17 PM CDT) Potassium, P 3.8 3.6 - 5.2 mmol/L 10/19/2022 3:44 PM CDT [facility] Sodium, P 137 135 - 145 mmol/L 10/19/2022 3:44 PM CDT [facility] Chloride, P 104 98 - 107 mmol/L 10/19/2022 3:44 PM CDT [facility] Bicarbonate, P 25 22 - 29 mmol/L 10/19/2022 3:44 PM CDT [facility] Anion Gap, P 8 7 - 15 10/19/2022 3:44 PM CDT [facility] BUN (Blood Urea Nitrogen), P 10 6 - 21 mg/dL 10/19/2022 3:44 PM CDT [facility] Creatinine 0.73 0.59 - 1.04 mg/dL 10/19/2022 3:44 PM CDT [facility] Estimated GFR (eGFR) 90 >=60 mL/min/BSA 10/19/2022 3:44 PM CDT [facility] Comment: Estimated GFR calculated using the 2020 CKD_EPI creatinine equation. Calcium, Total, P 9.5 8.8 - 10.2 mg/dL 10/19/2022 3:44 PM CDT [facility] Glucose, P 181(H) 70 - 140 mg/dL 10/19/2022 3:44 PM CDT [facility] Blood (Blood, Venous) 10/19/2022 3:17 PM CDT 10/19/2022 3:24 PM CDT Jackson Wren P.A.-C. LAB BLOOD ADD-ON [facility] [address] [place] [address], [facility] [address] [place] [address] documented in this encounter Visit Diagnoses Diagnosis Abdominal Pain- Primary Nausea And Vomiting Frequency Urinary Urgency Urinary Pancreatitis Chronic (HCC) Abnormal Findings On Diagnostic Imaging Of Other Abdominal Regions Including Retroperitoneum documented in this encounter Administered Medications Inactive Administered Medications - up to 3 most recent administrations Medication Order MAR Action Action Date Dose Rate Site fentaNYL injection 50 mcg (SUBLIMAZE) 50 mcg, intravenous, Every 30 min PRN, severe pain or score 7-10 of 10, Starting on Sat10/19/22 at 1456, For 3 doses Given 10/19/2022 4:40 PM CDT 50 mcg Given 10/19/2022 3:10 PM CDT 50 mcg iohexoL 300 mg iodine/mL solution 1-200 mL (OMNIPAQUE) 1-200 mL, intravenous, Once in imaging, contrast, Starting on Sat10/19/22 at 1605, For 1 dose, Imaging Protocol Orders, Dose per Radiant Medication Guidelines Given 10/19/2022 4:05 PM CDT 100 mL lactated ringers 250 mL/hr, intravenous, Continuous, Starting on Sat10/19/22 at 1725 NaCl 0.9 % bolus 1,000 mL 1,000 mL, intravenous, at 1,000 mL/hr, Administer over 1 Hours, Once, On Sat10/19/22 at 1455, For 1 dose New Bag 10/19/2022 3:10 PM CDT 1,000 mL 1000 mL/hr ondansetron (PF) injection 4 mg (ZOFRAN) 4 mg, intravenous, Once as needed, nausea, vomiting, Starting on Sat10/19/22 at 1454, For 1 dose, Select antiemetic if IV access obtained. Given 10/19/2022 3:11 PM CDT 4 mg sodium chloride (PF) 0.9 % injection 1-100 mL 1-100 mL, intravenous, Once, On Sat10/19/22 at 1606, For 1 dose, Imaging Protocol Orders Given 10/19/2022 4:05 PM CDT 50 mL sodium chloride 0.9 % injection 10 mL 10 mL, intravenous, As needed, line care, Starting on Sat10/19/22 at 1454, Peripheral Intravenous Catheter and Rapid Infusion Catheter, prior to blood sampling, post blood transfusion or post blood sampling sodium chloride 0.9 % injection 3 mL 3 mL, intravenous, As needed, line care, Starting on Sat10/19/22 at 1454, Prior to and following infusion and between multiple consecutive infusions: sodium chloride 0.9 % injection sodium chloride 0.9 % injection 3 mL 3 mL, intravenous, Every 12 hours scheduled, First dose on Sat10/19/22 at 2100, Peripheral Intravenous Catheter and Rapid Infusion Catheter, when no infusion to maintain patency documented in this encounter Active and Recently Administered Medications Times are shown in CDT. Scheduled Medication Order 10/17/2022 10/18/2022 10/19/2022 NaCl 0.9 % bolus 1,000 mL (COMPLETED) 1,000 mL, intravenous, at 1,000 mL/hr, Administer over 1 Hours, Once, On Sat10/19/22 at 1455, For 1 dose 1510 (New Bag - Prov ider: Nakita De Los Santos R.N.)1639 (Stopped - Provider: Vika Gill RCarlosNCarlos) sodium chloride (PF) 0.9 % injection 1-100 mL (COMPLETED) 1-100 mL, intravenous, Once, On Sat10/19/22 at 1606, For 1 dose, Imaging Protocol Orders 1605 (Given - Provid er: Makenzie Ford R.NCarlos) sodium chloride 0.9 % injection 3 mL 3 mL, intravenous, Every 12 hours scheduled, First dose on Sat10/19/22 at 2100, Peripheral Intravenous Catheter and Rapid Infusion Catheter, when no infusion to maintain patency Continuous Medication Order 10/17/2022 10/18/202210/1910/19/2022 lactated ringers 250 mL/hr, intravenous, Continuous, Starting on Sat10/19/22 at 1725 1730 (Not Given - Pr ovider: Vika Gill RPedrito - Reason: Other - Comment: Per provider, pt being discharged) PRN Medication Order 10/17/2022 10/18/2022 10/19/2022 fentaNYL injection 50 mcg (SUBLIMAZE) 50 mcg, intravenous, Every 30 min PRN, severe pain or score 7-10 of 10, Starting on Sat10/19/22 at 1456, For 3 doses 1510 (Given - Provid er: Nakita De Los Santos R.N.)1640 (Given - Provider: Vika Gill R.N.) iohexoL 300 mg iodine/mL solution 1-200 mL (OMNIPAQUE) (COMPLETED) 1-200 mL, intravenous, Once in imaging, contrast, Starting on Sat10/19/22 at 1605, For 1 dose, Imaging Protocol Orders, Dose per Radiant Medication Guidelines 1605 (Given - Provid er: Makenzie Ford RPedrito - Comment: [id number]) ondansetron (PF) injection 4 mg (ZOFRAN) (COMPLETED)(Linked Group 1) 4 mg, intravenous, Once as needed, nausea, vomiting, Starting on Sat10/19/22 at 1454, For 1 dose, Select antiemetic if IV access obtained. 1511 (Given - Provid er: Nakita De LosS antos RCarlosNCarlos) sodium chloride 0.9 % injection 10 mL 10 mL, intravenous, As needed, line care, Starting on Sat10/19/22 at 1454, Peripheral Intravenous Catheter and Rapid Infusion Catheter, prior to blood sampling, post blood transfusion or post blood sampling sodium chloride 0.9 % injection 3 mL 3 mL, intravenous, As needed, line care, Starting on Sat10/19/22 at 1454, Prior to and following infusion and between multiple consecutive infusions: sodium chloride 0.9 % injection Linked Groups Order Group 1: ondansetron ODT disintegrating tablet 4 mg (ZOFRAN-ODT) (COMPLETED) 4 mg, oral, Once as needed, nausea, vomiting, Starting on Sat10/19/22 at 1454, For 1 dose, Select antiemetic if no IV access. When splitting ODT at bedside, handle with gloves and a pill splitter to prevent moisture contact. Or ondansetron (PF) injection 4 mg (ZOFRAN) (COMPLETED)Jump to med 4 mg, intravenous, Once as needed, nausea, vomiting, Starting on Sat10/19/22 at 1454, For 1 dose, Select antiemetic if IV access obtained. 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
--- OUTSIDE RECORDS SUMMARY | 2023-04-10 10:19 | XMS_ITS | Encounter Summary ---
Author Name Unknown Organization [facility] Address [address] [place] [address] Care Team Providers Care Stock Counter Name Role Phone Elsewhere, Pcp Primary Care Provider Unavailabl e Reason for Visit * Reason Comments Abdominal Pain * Auth/Cert (Routine) Specialty Diagnoses / Procedures Referred By Contac t Referred To Contact Diagnoses Pancreatitis Acute (HCC) Pancreatitis Chronic Recurrent (HCC) Abdominal Pain Procedures OBS Referral ID Status Reason Start Date Expiration Date Visits Re quested Visits Authorized [id number] 1 1 Encounter Details Date Type Department Care Team (Late st Contact Info) Description 09/06/2022 12:12 PM CDT - 09/08/2022 11:39 AM CDT Emergency [facility], [facility], Second Floor [address] [place] [phone] Madhav Basurto APRN, C.N.P., D.N.P. [address] [place] [id number] Lincoln Branch M.D. [address] [place] [phone] Pancreatitis Acute (HCC) (Primary Dx); Pancreatitis Chronic Recurrent (HCC); Abdominal Pain Discharge Disposition: Home or Self Care Social [...] Sign Reading Time Taken Comments Blood Pressure 177/84 09/08/2022 11:28 AM CDT Pulse 106 09/08/2022 11:28 AM CDT Temperature 36.1 ??C (97 ??F) 09/08/2022 11:28 AM CDT Respiratory Rate 16 09/08/2022 9:55 AM CDT Oxygen Saturation 94% 09/08/2022 11:28 AM CDT Inhaled Oxygen Concentration - - Weight 67.8 kg (149 lb 7.6 oz) 09/07/2022 2:40 P M CDT Height 162.6 cm (5' 4.02) 09/07/2022 2:40 PM CD T Body Mass Index 25.64 09/07/2022 2:40 PM CDT documented in this encounter Discharge Summaries * Lincoln Branch M.D. - 09/08/2022 10:08 AM CDT INPATIENT DISCHARGE SUMMARY BRIEF OVERVIEW Discharge Provider: Lincoln Branch M.D. Primary Care Providers: Elsewhere, Pcp (General) No address on file Admission Date: 09/06/2022 Discharge Date: 09/08/2022 REASON FOR ADMISSION Pancreatitis Acute (HCC) Pancreatitis Chronic Recurrent (HCC) Abdominal Pain PRINCIPAL DIAGNOSIS Pancreatitis Acute (HCC) SECONDARY DIAGNOSES Principal Problem: Pancreatitis Acute (HCC) Active Problems: Multiple Sclerosis (HCC) Multiple Sclerosis (HCC) Bipolar Disorder (HCC) Diabetes Mellitus Type 2 (HCC) Diabetes Mellitus Type 2 With Diabetic Neuropathy (HCC) Dysphagia Gastroesophageal Reflux Disease NOS Hyperlipidemia Resolved Problems: * No resolved hospital problems. * DISCHARGE DISPOSITION: Home or Self Care [1] PHYSICAL EXAMINATION: Vitals: 09/08/22 0955 BP: 118/85 Pulse: 89 Resp: 16 Temp: 36.4 ??C SpO2: 93% General appearance: No distress HEENT: JVD not increased Cardiac: S1-S2 Abdomen: Soft, flat, nontender Lungs: Clear to auscultation Extremities: No edema Neurologic: Alert and oriented x3. Speech is coherent OUTPATIENT FOLLOW UP For appointment details refer to your Patient Appointment Guide. DETAILS OF HOSPITAL STAY HOSPITAL COURSE Patient was evaluated in emergency department and found to have pancreatitis based on CT scan findings. Her lipase was not elevated. She is had pancreatitis in the past and was having nausea as well.Her symptoms improved with oral analgesics and Zofran. She was intravenously hydrated with lactatedRinger's and eventually her pain went to 0 by day of discharge. She was able to tolerate a full andregular diet. And magnesium was replaced also on her 1st day here with 2 g intravenously for a level of 1.4. Her vital signs were stable at discharge. She was feeling close to her usual self. She didhave elevated blood pressures while in hospital and Norvasc was added to her antihypertensive regimen. She previously had been on 2 agents in the past and states that she had run out of her blood pressure medicines prior to presentation for medical attention. Discharges to home. Advised to follow-up with primary in 1 week. Her blood sugars were poorly controlled initially while here and later better controlled with a insulin sliding scale. Focus on sustained glycemic control will be another task for her to pursue on outpatient setting with her primary care. In the meantime she will resume heroral hypoglycemics as already prescribed. Total time in discharge management greater than 30 minutes. CONDITION AT DISCHARGE Stable. Full code. Lincoln Branch M.D. documented in this encounter Discharge Instructions * Discharge Instr - Diet* Jack Brady RDN, LD - 09/07/2022 2:54 PM CDT Images from the original note were not included. Pancreatitis Nutrition Therapy: The pancreas is an organ that helps your body digest and absorb nutrients in food. When you have pancreatitis, your body may not be able to digest food well. The fat in food is especially hard for your body to digest and may cause pain. This nutrition therapy limits the fat in your diet while providing nutrients you need. Eat nonfat or low-fat foods that meet the [place] Dietary Guidelines. For most adults, goals should be: Grains: 5 to 6 servings (1 ounce) each day (1 ounce = 1 slice bread, 1 cup breakfast cereal, or ?? cup cooked pasta or rice). Vegetables: 2?? to 3 cups each day. Eat a variety of vegetables, especially dark-green and red and orange vegetables and beans and peas. Fruits: 2 cups each day. Protein foods (meat, poultry, fish, and beans): 5 to 6 ounces each day (1 egg or ?? cup beans counts as 1 ounce) Milk and dairy foods: 3 cups each day (1?? ounces cheese count as 1 cup milk) Keep the total amount of fat that you eat to 25% to 30% of the calories that you eat. If your recommended intake is to eat 2,000 calories per day, your fat intake can be 55 to 65 grams per day. Eati ng small, low fat meals and drinking enough fluids may improve your pain. Choosing soft foods can also help decrease discomfort from pancreatitis. It can be hard to maintain your weight on a low-fat diet. Let your doctor or registered dietitian senior director of strategy (RDN) know if you lose weight while on this diet. Do not drink alcoholic beverages. Talk with an RDN to figure out which foods are best for you and to get answers to any questions you might have about your nutrition therapy. Ask the RDN for recommendations for other conditions you have, such as diabetes mellitus. If prescribed, take pancreatic enzymes before each meal or as directed by your doctor. If pancreatic enzymes are prescribed, alow-fat diet may no longer be needed Please reach out with questions. You may benefit from lower fat diet when experiencing symptoms of pain/pancreatitis. Ask your doctors about this as well and if required. Sincerely, Jack Brady R.D., Aric CAMARENA/Kamlesh Whitfield Lead Dietitian Clinical Nutrition Office Email: [email or web address] [place] [address] * Attachments The following attachments cannot be sent through Care Everywhere. * Pancreatitis (Stateless) documented in this encounter Medications at Time of Discharge Medication Sig Dispensed Refills Start Date End Date Accu-Chek Guide test strips 3 (three) times a day. for testing 0 07/25/2022 amLODIPine (NORVASC) 5 mg tablet Take 1 tablet (5 mg total) by mouth daily. 90 tablet 2 09/09/2022 cyclobenzaprine (FLEXERIL) 10 mg tablet Take 10 [...] 10 mg by mouth at bedtime. 0 oxyBUTYnin (DITROPAN-XL) 10 mg 24 hr tablet Take 10 mg by mouth at bedtime. 0 QUEtiapine (SEROquel) 400 mg tablet Take 400 [...] mg by mouth at bedtime. 0 02/19/2023 documented as of this encounter Progress Notes * Jack Brady, RDN, LD - 09/07/2022 2:43 PM CDT NUTRITION ASSESSMENT Patient admitted with acute pancreatitis. Pertinent past medical history includes type 2 DM, GERD, Dysphagia and HLD with recurrent events of pancreatitis. Patient unavailable currently however weight loss is apparent and oral intake poor CAFETERIA COOK due to pain. BGs found critically high in ED (resolving). Tolerating clear liquid diet now (little intakes). Food and Nutrition Related History Previous Diet: unable to obtain Nutrition education/counseling: diet for pancreatitis Food Intolerance: lactose Oral Intake Prior to Admission: Decrease Current Oral Intake/Diet Recall: No data found. Appetite: poor Skin Integrity/Edema: reviewed Pertinent Medications/Supplements: reviewed (IV Mag for repletion) MALNUTRITION ASSESSMENT Malnutrition criteria not met in the context of Chronic Illness based on ASPEN/AND criteria noted below: Weight Loss: >7.5% in 3 months Average estimated Intake: Unable to Assess Muscle Mass: Unable to Assess Body Fat: Unable to Assess Fluid Accumulation: Absent ANTHROPOMETRICS Admission Weight: 76 kg Weight: 67.8 kg Weight change since admission: -8.2 kg Weight Used for Equation Calculations: 58 kg Usual Body Weight: 75 kg [place] Body Weight (Calculated) : 54.6 kg Adjusted Body Weight : 57.9 Kg Weight Change History: Lost roughly - 8kg in unspeficifed timeline, likely in the past 3 months (11% total loss) Wt Readings from Last 6 Encounters: 09/07/22 67.8 kg 06/26/22 76 kg 11/29/18 74.6 kg 07/16/18 80.4 kg 01/24/15 89.8 kg 08/19/13 92.6 kg PERTINENT LABS: Reviewed ESTIMATED ENERGY NEEDS: Weight Used for Equation Calculations: 58 kg kcal/k-25 Estimated Energy Needs (Low): 1276 kcal/day Estimated Energy Needs (High): 1450 kcal/day Weight Used to Calculate Protein Needs (Kg): 58 kg Method to Estimate Protein Needs (g/kg): 0.8 - 1 Estimated Protein Needs (Low): 46 Estimated Protein Needs (High): 58 Estimated Fluid Needs: 1740 mL/day Dietary Orders (From admission, onward) Start Ordered 09/07/22 1006 Adult Diet Clear Liquid Diet effective now Comments: Advance as tolereated with sucessive meals- clear liquids to full liquids to regular diet- all if and when tolerated Question: Diet texture: Answer: Clear Liquid 09/07/22 1022 CURRENT NUTRITION ORDERS: Adult Diet Clear Liquid NUTRITION DIAGNOSIS: Unintended weight loss related to pancreatitis impacting appetite and oral intake as evidenced by -8 kg loss in past 3 months NUTRITION PLAN AND INTERVENTIONS: Nutrition Interventions Interventions: Increase nutrient intake with small, frequent meals and/or snacks, Vitamin and mineral supplements, Medical food supplement, Provide education to increase nutrition knowledge Education materials to AVS as suspect DC today. Diet for pancreatitis and offered RD contact. MONITORING/EVALUATION: Nutrition Monitoring/Evaluation Evaluation: Progressing Monitoring: Diet Progression/NPO Status, Meals/Supplement Intake, Weight Status, Pertinent Labs * Lincoln Branch M.D. - 09/07/2022 10:22 AM CDT SUBJECTIVE HISTORY OF PRESENT ILLNESS Feels much better compared to yesterday. Abdominal pain is essentially disappeared. No nausea no appetite either however. Laboratories reveal a mild hypomagnesemia OBJECTIVE Admission Weight: 76 kg Current Weight: 67.8 kg VITAL SIGNS Temperature: [36 ??C-36.9 ??C] 36 ??C Resp Rate: [16-20] 16 Blood Pressure: (134-194)/(52-132) 176/78 SpO2: [89 %-97 %] 96 % Pulse Rate: [66-94] 87 PHYSICAL EXAMINATION General: Alert and oriented. No acute distress. Cardiovascular exam: Regular rate and rhythm. Normal S1 and S2. No murmurs, rubs, or gallops. Lungs: Clear to auscultation bilaterally. Abdomen: Soft. Nontender. No masses, rebound, guarding. Normoactive bowel sounds. Extremities: No pedal edema. DIAGNOSTICS Recent Results (from the past 24 hour(s)) CBC with Differential, Blood Collection Time: 09/06/22 12:31 PM Result Value Hemoglobin 13.8 Hematocrit 40.7 Erythrocytes 4.39 MCV 92.7 RBC Distrib Width 11.4 (L) Platelet Count 310 Leukocytes 10.3 (H) Neutrophils 5.37 Lymphocytes 2.79 Monocytes 0.86 (H) Eosinophils 1.20 (H) Basophils 0.08 Comprehensive Metabolic Panel Collection Time: 09/06/22 12:31 PM Result Value Potassium, P 3.9 Sodium, P 134 (L) Chloride, P 94 (L) Bicarbonate, P 26 Anion Gap, P 14 BUN (Blood Urea Nitrogen), P 9 Creatinine 0.61 Estimated GFR (eGFR) >90 Calcium, Total, P 9.2 Glucose, P 585 (Crit H) Protein, Total, P 6.7 Albumin, P 3.8 Aspartate Aminotransferase (AST), P 15 Alkaline Phosphatase, P 96 Alanine Aminotransferase (ALT), P 14 Bilirubin, Total, P 0.3 Lipase Collection Time: 09/06/22 12:31 PM Result Value Lipase, P 57 Lactate Collection Time: 09/06/22 12:31 PM Result Value Lactate, P 4.1 (H) CRP (C-Reactive Protein) Collection Time: 09/06/22 12:31 PM Result Value C-Reactive Protein (CRP), P 11.2 (H) Beta-hydroxybutyrate, Point of Care Testing, Blood Collection Time: 09/06/22 1:11 PM Result Value Beta-hydroxybutyrate, POCT, B 0.1 Blood Gas, POCT - Venous Collection Time: 09/06/22 1:11 PM Result Value Blood Gas, POCT, B Collected VBG (Venous Blood Gas), POCT Collection Time: 09/06/22 1:18 PM Result Value pH, Venous, POCT, B 7.38 pCO2, Venous, POCT, B 49 pO2, Venous, POCT, B 29 HCO3, Venous, POCT, B 29 Base Excess, Venous, POCT, B 4 O2 Saturation, Venous, POCT, B 52 Sample Type, Blood Gas, POCT PENG Urinalysis with Microscopic if Indicated Collection Time: 09/06/22 1:24 PM Result Value Source Urine, Urine, Midstream Clarity Clear Color Yellow Blood Negative Nitrite Negative Leukocyte Esterase Negative Protein Negative Glucose >=1000 (A) Ketones, QI(U) Negative Bilirubin Negative pH 6.0 Specific [place] 1.010 Urobilinogen 0.2 Glucose, POCT Collection Time: 09/06/22 2:58 PM Result Value Glucose, POCT, B 329 (H) Lactate Collection Time: 09/06/22 3:15 PM Result Value Lactate, P 1.9 Glucose, POCT Collection Time: 09/06/22 3:41 PM Result Value Glucose, POCT, B 297 (H) Glucose, POCT Collection Time: 09/06/22 4:51 PM Result Value Glucose, POCT, B 319 (H) Glucose, POCT Collection Time: 09/06/22 8:23 PM Result Value Glucose, POCT, B 125 Lipase Collection Time: 09/07/22 6:54 AM Result Value Lipase, P 38 CBC with Differential, Blood Collection Time: 09/07/22 6:54 AM Result Value Hemoglobin 13.8 Hematocrit 40.4 Erythrocytes 4.34 MCV 93.1 RBC Distrib Width 11.5 (L) Platelet Count 318 Leukocytes 9.9 (H) Neutrophils 4.71 Lymphocytes 2.93 Monocytes 0.75 Eosinophils 1.47 (H) Basophils 0.06 Comprehensive Metabolic Panel Collection Time: 09/07/22 6:54 AM Result Value Potassium, P 3.8 Sodium, P 140 Chloride, P 102 Bicarbonate, P 27 Anion Gap, P 11 BUN (Blood Urea Nitrogen), P 6 Creatinine 0.57 (L) Estimated GFR (eGFR) >90 Calcium, Total, P 9.3 Glucose, P 288 (H) Protein, Total, P 6.5 Albumin, P 3.6 Aspartate Aminotransferase (AST), P 15 Alkaline Phosphatase, P 91 Alanine Aminotransferase (ALT), P 13 Bilirubin, Total, P 0.3 Magnesium Collection Time: 09/07/22 6:54 AM Result Value Magnesium, P 1.5 (L) Glucose, POCT Collection Time: 09/07/22 7:57 AM Result Value Glucose, POCT, B 311 (H) CT Abdomen Pelvis with IV Contrast Result Date: 09/06/2022 Impression: 1. Findings most consistent with acute on chronic pancreatitis involving the pancreaticuncinate process, similar to 06/26/2022. No loculated fluid collection. 2. Possible mild colitis involving the right hemicolon. No bowel obstruction. ASSESSMENT / PLAN #1 Multiple Sclerosis (HCC) #2 Multiple Sclerosis (HCC) Crampy #3 Bipolar Disorder (HCC) Stable chronic #4 Diabetes Mellitus Type 2 (HCC) Serial blood sugars noted #5 Diabetes Mellitus Type 2 With Diabetic Neuropathy (HCC) Glycemic monitoring with insulin sliding scale control #6 Dysphagia Chronic #7 Gastroesophageal Reflux Disease NOS PPI #8 Hyperlipidemia Statin therapy #9 Pancreatitis Acute (HCC) Clinically improved. Lipase is normal, still. Will allow clear liquid diet currently. Thereafter advanced diet as tolerated. Depending on progress and oral intake toleration possible discharge tomorrow Expected Discharge Date: . 09/09/2019 * Andre Andujar Pharm.D., R.Ph. - 09/07/2022 7:12 AM CDT Images from the original note were not included. Admission Pharmacist Progress Note Reason for admission: Pancreatitis Acute (HCC) [K85.90] Pancreatitis Chronic Recurrent (HCC) [K86.1] Abdominal Pain [R10.9] PMH: Past Medical History: Diagnosis Date Multiple Sclerosis (HCC) OBJECTIVE New Hospital orders - Home medications changed and stopped by provider medication reconciliation: New bisacodyL DR tablet 10 mg (DULCOLAX) bisacodyL suppository 10 mg (DULCOLAX) hydrALAZINE injection 10 mg (APRESOLINE) insulin aspart U-100 injection 0-13 Units (NovoLOG FlexPen) insulin aspart U-100 injection 0-7 Units (NovoLOG FlexPen) lactated ringers ondansetron ODT disintegrating tablet 4 mg (ZOFRAN-ODT) pantoprazole injection 40 mg (PROTONIX) polyethylene glycol powder packet 17 g (MIRALAX) Changed albuterol nebulizer solution 2.5 mg - Medication details are different. DULoxetine (CYMBALTA) [address] capsule Similar Orders DULoxetine DR capsule 30 mg (CYMBALTA) - 30 mg, oral, Daily, First dose on Sat09/07/22 at 0900See tube feeding guidelines for tube feeding administration instructions. DULoxetine DR capsule 60 mg (CYMBALTA) - 60 mg, oral, Daily at bedtime, First dose (after last modification) on Sat09/06/22 at 2100See tube feeding guidelines for tube feeding administration instructions. montelukast tablet 10 mg (SINGULAIR) - Pause or Hold status has changed. oxyCODONE (ROXICODONE) 5 mg immediate release tablet Similar Orders oxyCODONE IR tablet 5 mg (ROXICODONE) OR oxyCODONE IR tablet 10 mg (ROXICODONE) Stopped Accu-Chek Guide Me Glucose Mtr [facility] [place] Accu-Chek Guide test strips DULoxetine (CYMBALTA) [address] capsule glipiZIDE (GLUCOTROL) 10 mg tablet simvastatin (ZOCOR) 40 mg tablet SUMAtriptan (IMITREX) 100 mg tablet Medications stopped during pharmacy medication history interview: Discontinued Medications Reason for Discontinue ondansetron ODT (ZOFRAN-ODT) 4 mg disintegrating tablet Therapy completed Patient own medications: none Prophylaxis: Not ordered at this time ASSESSMENT / PLAN Pancreatitis/DM type 2 Lactated Ringers continuous at 125 ml/hr Following Labs Last Lipase = 57 6/8 at 1231 Blood Glucose = 125 6/8 at 2022 Lactate = 1.9 6/8 at 1515 Pain Oxycodone 5-10 mg PO every 4 hours PRN pain Pantoprazole 40 mg IV every 12 hours Insulin 0-13 Sliding Scale TID w/meals Insulin 0-7 Sliding scale at bedtime NPO Home Meds Continued Duloxetine 30 mg in AM and 60 mg in PM Holding: Glipizide, Montelukast, Simvastatin, Sumatriptan Andre Andujar Pharmd The information and recommendations contained in this note are based on information available at the time of documentation. * Ulises Agosto Pharm.D., R.Ph. - 09/06/2022 6:33 PM CDT Images from the original note were not included. Admission Medication History Note Prior to Admission Medications Med List Status: Pharmacy Complete Set By: Ulises Agosto Pharm.D., R.Ph. at 09/06/2022 6:33 PM Status Comment 09/06/2022 6:33 PM Completed with patient and her , with medication list from home. Taking? Last Dose Informant Start Date End Date LT Accu-Chek Guide Me Glucose Mtr misc -- Spouse/Significant Other 07/25/22 -- USE DIRECTED, TESTING THREE TIMES A DAY Accu-Chek Guide test strips -- Spouse/Significant Other 07/25/22 -- 3 (three) times a day. for testing albuterol 90 mcg/actuation inhaler at as needed Spouse/Significant Other -- -- Inhale 2 puffs every 4 (four) hours as needed for wheezing or shortness of breath. Q4-6 hrs as needed cyclobenzaprine (FLEXERIL) 10 mg tablet at as needed Spouse/Significant Other 07/26/22 -- Take 10 mg by mouth 3 (three) times a day as needed. DULoxetine (CYMBALTA) [address] capsule 09/05/2022 at am Spouse/Significant Other -- -- Take 30 mg by mouth every morning. Notes: Takes 1 cap of duloxetine 30 mg in am and 1 cap of duloxetine 60 mg in pm DULoxetine (CYMBALTA) [address] capsule 09/05/2022 at bedtime Spouse/Significant Other 01/14/15 -- Take 1 capsule by mouth at bedtime. Notes: Takes 1 cap of duloxetine 30 mg in am and 1 cap of duloxetine 60 mg in pm glipiZIDE (GLUCOTROL) 10 mg tablet 09/05/2022 at bedtime Self -- -- Take 20 mg by mouth at bedtime. Notes: Pt usually eats snack at bedtime losartan (COZAAR) 100 mg tablet 09/05/2022 at bedtime Self 01/24/15 -- Take 1 tablet by mouth at bedtime. montelukast (SINGULAIR) 10 mg tablet 09/05/2022 at bedtime Spouse/Significant Other -- -- Take 10 mg by mouth at bedtime. oxyBUTYnin (DITROPAN-XL) 10 mg 24 hr tablet 09/05/2022 at bedtime Spouse/Significant Other -- -- Take 10 mg by mouth at bedtime. oxyCODONE (ROXICODONE) 5 mg immediate release tablet at as needed Spouse/Significant Other 06/26/22-- Take 1 tablet (5 mg total) by mouth every 4 (four) hours as needed for pain Indication: Acute Pain. Patient taking differently: Take 5 mg by mouth every 8 (eight) hours as needed for pain Indication:Acute Pain. QUEtiapine (SEROquel) 400 mg tablet 09/05/2022 at bedtime Spouse/Significant Other 07/11/13 -- Take 400 mg by mouth at bedtime. simvastatin (ZOCOR) 40 mg tablet 09/05/2022 at bedtime Spouse/Significant Other -- -- Take 40 mg by mouth at bedtime. SUMAtriptan (IMITREX) 100 mg tablet at as needed Spouse/Significant Other -- -- Take 100 mg by mouth as needed for migraine. May repeat dose once in 2 hours if migraine is unresolved. Do not exceed 200 mg in 24 hours. Adherence issues: No concerns Pharm. FranciscoDCarlos, R.Ph. The information and recommendations contained in this note are based on information available at the time of documentation. documented in this encounter H&P Notes * Lincoln Branch M.D. - 09/06/2022 4:52 PM CDT SUBJECTIVE REASON FOR ADMISSION Yary Prince is a 67 y.o. female who presents for evaluation of Pancreatitis Acute (HCC) [K85.90] Pancreatitis Chronic Recurrent (HCC) [K86.1] Abdominal Pain [R10.9] HISTORY OF PRESENT ILLNESS Patient was seen in the emergency department and was noted by provider there: ???Patient with past medical history of pancreatitis, multiple sclerosis, hypertension, diabetes, presents to the emergency department with 2 day history of abdominal pain. Patient states her pain is 10/10. She feels veryswollen and bloated. She is nausea but no vomiting. Patient states he has been constipated the lastcouple of days, she states I feel like it is a blockage. She denies any diarrhea. She did have 2 very small stools the first 1 was 3 days ago, and the next 1 was 2 days ago. None since. Patient alsowas endorsing urinary frequency, hesitancy and burning. Patient denies any fever, chills, sweats. She has had a gallbladder surgery and also pancreas surgery in the past' her pain has slightly improved after she is come to the medical-surgical floor. Her appetite continues to be poor. The following portions of the patient's history were reviewed and updated as appropriate: allergies, current medications, family history, medical history, social history, surgical history, and problem list. Past Medical History: Diagnosis Date Multiple Sclerosis (HCC) Past Surgical History: Procedure Laterality Date CHOLECYSTECTOMY [...] 2003 Repair of rectocele TUBAL LIGATION Family History Problem Relation Age of Onset Liver failure Mother Diabetes Mother Lung cancer Father Social History Socioeconomic History Marital status: Single Spouse name: Not on file Number of [...] times per week Types: Marijuana Sexual activity: Not Currently Other Topics Concern Not on file Social History Narrative Yary lives in a house with and daughter, granddaughters, and great grand daughter out on afarm in a big house. Pt disabled with MS at 31 years old. Social Determinants of Health Financial Resource Strain: Not on file Food Insecurity: Not on file Transportation Needs: Not on file Physical Activity: Not on file Intimate Partner Violence: Not on file Housing Stability: Not on file Allergies Allergen Reactions Lactose GI intolerance Nitrofurantoin Hives Pollen Extracts Other (see comments) Prednisone Myalgia Sulfamethoxazole Other (see comments) Sulfamethoxazole-Trimethoprim Hives Current Outpatient Medications on File Prior to Encounter Medication Sig Last Dose Accu-Chek Guide Me Glucose Mtr misc USE DIRECTED, TESTING THREE TIMES A DAY Accu-Chek Guide test strips 3 (three) times a day. for testing cyclobenzaprine (FLEXERIL) 10 mg tablet Take 10 mg by mouth 3 (three) times a day as needed. DULoxetine (CYMBALTA) [address] capsule Take 1 capsule by mouth 2 (two) times a day. glipiZIDE (GLUCOTROL) 10 mg tablet Take 10 mg by mouth 2 (two) times a day before breakfast and dinner. losartan (COZAAR) 100 mg tablet Take 1 tablet by mouth daily. ondansetron ODT (ZOFRAN-ODT) 4 mg disintegrating tablet Dissolve 1 tablet (4 mg total) in the mouthevery 12 (twelve) hours. oxyBUTYnin (DITROPAN-XL) 10 mg 24 hr tablet Take 10 mg by mouth at bedtime. oxyCODONE (ROXICODONE) 5 mg immediate release tablet Take 1 tablet (5 mg total) by mouth every 4 (four) hours as needed for pain Indication: Acute Pain. QUEtiapine (SEROquel) 100 mg tablet QUEtiapine 100 mg oral tablet See Instructions, 1 tab(s) PO in AM, 4 tab s at bedtime REVIEW OF SYSTEMS Constitutional: - Negative for fatigue. Respiratory: - Negative for coughing up blood. Cardiovascular: - Negative for chest pain, pressure or tightness. Gastrointestinal: Positive for abdominal (belly) pain or cramping. Psychiatric/Behavioral: - History of cognitive disorder. Diagnosed with bipolar disease The following systems were negative: Skin, Eyes, ENT, Genitourinary, Hematologic, Musculoskeletal, Neurological OBJECTIVE Blood pressure (!) 179/66, pulse 66, temperature 36.1 ??C, resp. rate 20, height 162.6 cm, weight 67.8 kg, SpO2 95 %. PHYSICAL EXAMINATION Vitals and nursing note reviewed. HENT Head: Normocephalic. Mouth/Throat: Mouth: Mucous membranes are moist. Eyes Pupils: Pupils are equal, round, and reactive to light. Cardiovascular Rate and Rhythm: Normal rate. Pulmonary Effort: Pulmonary effort is normal. Breath sounds: Normal breath sounds. Abdominal General: There is distension. Palpations: Abdomen is soft. Tenderness: There is abdominal tenderness. Comments: Tender over mid abdomen to point pressure. No masses. No rebound. No fluid wave. Musculoskeletal General: No swelling. Skin General: Skin is warm and dry. Neurological General: No focal deficit present. Mental Status: She is alert. Mental status is at baseline. Cranial Nerves: No cranial nerve deficit. Lab Results Component Value Date WBC 10.3 (H) 09/06/2022 HGB 13.8 09/06/2022 HCT 40.7 09/06/2022 MCV 92.7 09/06/2022 PLT 310 09/06/2022 Lab Results Component Value Date NA 134 (L) 09/06/2022 CL 94 (L) 09/06/2022 CREATININE 0.61 09/06/2022 EGFR >90 09/06/2022 BUN 9 09/06/2022 ANIONGAP 14 09/06/2022 GLUCOSE 585 (Crit H) 09/06/2022 CALCIUM 9.2 09/06/2022 Lab Results Component Value Date CKTOTAL 43 08/29/2014 CKMB 1.4 06/10/2012 Lab Results Component Value Date URINESOURCE Urine, Urine, Midstream 09/06/2022 CLARITYU Clear 09/06/2022 COLORU Yellow 09/06/2022 NITRITEU Negative 09/06/2022 LEUKOCYTESU Negative 09/06/2022 PROTEINQUALU Negative 09/06/2022 GLUCOSEU >=1000 (A) 09/06/2022 KETONESU Negative 09/06/2022 BILIRUBINU Negative 09/06/2022 PHURINE 6.0 09/06/2022 SPECGRAV 1.010 09/06/2022 UROBILINOGEN 0.2 09/06/2022 Lab Results Component Value Date ALT 14 09/06/2022 AST 15 09/06/2022 ALKPHOS 96 09/06/2022 BILITOT 0.3 09/06/2022 CT Abdomen Pelvis with IV Contrast Result Date: 09/06/2022 Impression: 1. Findings most consistent with acute on chronic pancreatitis involving the pancreaticuncinate process, similar to 06/26/2022. No loculated fluid collection. 2. Possible mild colitis involving the right hemicolon. No bowel obstruction. ASSESSMENT / PLAN #1 Multiple Sclerosis (HCC) Chronic. Has not received disease modifying agents in the past. 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 Intravenous fluids for volume replacement #7 Gastroesophageal Reflux Disease NOS Protonix intravenously #8 Hyperlipidemia #9 Pancreatitis Acute (HCC) Will hydrate with intravenous fluids, lactated Ringer's at 125 mL/hour plus oral pain relief with oxycodone in a teared dose structure. Will follow exam and symptoms. Expected Discharge Date: . 12/12/2019 Lincoln Branch M.D. documented in this encounter Nursing Notes * Diane Baker R.N. - 09/08/2022 11:34 AM CDT Problem: PAIN - ADULT Goal: PT VERBALIZES/DEMONSTRATES ADEQUATE COMFORT LEVEL OR BASELINE Outcome: Progressing Problem: KNOWLEDGE DEFICIT Goal: Patient/family/caregiver demonstrates understanding of disease process, treatment plan, medications, and discharge instructions Outcome: Progressing Problem: INFECTION - ADULT Goal: Absence of infection during hospitalization Outcome: Progressing Problem: SKIN/TISSUE INTEGRITY Goal: Skin/Tissue integrity maintained or improved Outcome: Progressing Problem: SAFETY ADULT Goal: Maintain a safe environment Outcome: Progressing Problem: DISCHARGE PLANNING Goal: Patient discharge needs identified Outcome: Progressing Problem: Compromised Skin Integrity Goal: Skin/Tissue integrity maintained or improved Outcome: Progressing Shift Goals: Identify possible barriers to meeting goals/advancing plan of care: End of Shift Summary: Patient alert and oriented X 3, call light appropriate and remained safe during shift. Ambulated independently in room and on unit. Received PRN oxycodone to manage back pain that was effective. Was able to shower in the afternoon. Ate breakfast and lunch with no issues. Patient discharged at 1130 with , via private vehicle. Was able to ambulate off unit independently. PIV removed and last vitals taken before patient left unit. Nurse went over discharge paperwork with patient and answered all questions. * Aileen Zambrano R.N. - 09/08/2022 4:32 AM CDT Shift Goals: Pain level tolerable. Identify possible barriers to meeting goals/advancing plan of care: none End of Shift Summary: Ms. Prince has been alert/oriented and using her call light appropriately. IV LR infusing at 50cc/hr. One dose of prn oxy given for left hip/leg pain, as well as repositioning andaqua K pad, with some relief. Pt turns frequently in bed. Pt had a turkey sandwich and a bag of chips this evening, tolerated well. Transfers well with SBA. Blood pressures continue to be elevated - no prns given for BP so far this shift. Will continue to monitor. * Diane Baker R.N. - 09/07/2022 4:12 PM CDT Problem: PAIN - ADULT Goal: PT VERBALIZES/DEMONSTRATES ADEQUATE COMFORT LEVEL OR BASELINE Outcome: Progressing Problem: KNOWLEDGE DEFICIT Goal: Patient/family/caregiver demonstrates understanding of disease process, treatment plan, medications, and discharge instructions Outcome: Progressing Problem: INFECTION - ADULT Goal: Absence of infection during hospitalization Outcome: Progressing Problem: SKIN/TISSUE INTEGRITY Goal: Skin/Tissue integrity maintained or improved Outcome: Progressing Problem: SAFETY ADULT Goal: Maintain a safe environment Outcome: Progressing Problem: DISCHARGE PLANNING Goal: Patient discharge needs identified Outcome: Progressing Problem: Compromised Skin Integrity Goal: Skin/Tissue integrity maintained or improved Outcome: Progressing Shift Goals: Identify possible barriers to meeting goals/advancing plan of care: End of Shift Summary: Patient alert/oriented X 3, and remained safe during shift. Continuous fluidsdecreased to LR 50 mL/hr. NPO status updated to full liquid. Received STAT dose of Magnesium Sulfate. PRN Oxycodone for back pain. Right PIV fell out and replaced with Left PIV. Needs reminders to use call light, but ambulates well with 1 assist. Bps continue to be slightly elevated. Will continue to monitor. * Kira Zamarripa M.S.N. R.N. - 09/07/2022 3:31 AM CDT Shift Goals: Identify possible barriers to meeting goals/advancing plan of care: pain End of Shift Summary: Pt continues to have elevated Bps overnight; hydralazine order obtained. See MAR for parameters. A&Ox3, room air. Pt is impulsive at times; bed alarms initiated. BM this shift. AquaK pad provided for abdominal discomfort. Appears to have slept without issue. LR at 125 ml/hr continues to infuse; pt remains NPO. Problem: PAIN - ADULT Goal: PT VERBALIZES/DEMONSTRATES [...] mucous membranes remain intact Outcome: Progressing Problem: SAFETY ADULT Goal: Maintain a safe environment Outcome: Progressing Problem: Compromised Skin Integrity Goal: Skin/Tissue integrity maintained or improved Outcome: Progressing Goal: Oral and Nasal mucous membranes remain intact Outcome: Progressing Problem: Incontinence and/or Moisture Goal: Skin integrity is maintained or improved Outcome: Progressing * Roya Nicholson RCarlosNCarlos - 09/06/2022 6:34 PM CDT Problem: PAIN - ADULT Goal: PT VERBALIZES/DEMONSTRATES ADEQUATE COMFORT LEVEL OR BASELINE Outcome: Progressing Problem: SKIN/TISSUE INTEGRITY Goal: Skin/Tissue integrity maintained or improved Outcome: Progressing Problem: SAFETY ADULT Goal: Maintain a safe environment Outcome: Progressing Problem: Compromised Skin Integrity Goal: Skin/Tissue integrity maintained or improved Outcome: Progressing Problem: Incontinence and/or Moisture Goal: Skin integrity is maintained or improved Outcome: Progressing End of Shift Summary: Yary arrived on the unit from the ED around 1436 this afternoon. She is alert and oriented x3. Patient seems to have mild confusion or delay, even though she answers questions properly. Pt on alarms for safety. Assist x1 gb and walker. RUE PIV intact with continuous lactated ringers running @ 125 ml/hr. BP trending high @ 174/88, 194/84, and 165/88. BS 319 when arrived on unit, 10 units SQ given. Suppository and miralax given to try and encourage BM. Patient said she has frequency urinating and intermittent incontinence. Patient reports mild cramping/discomfort in abdomen at rest. Patient's active in cares. documented in this encounter ED Notes * Madhav Basurto APRN, C.N.P., D.N.P. - 09/06/2022 12:36 PM CDT Images from the original note were not included. CHIEF COMPLAINT/REASON FOR VISIT Abdominal Pain HISTORY OF PRESENT ILLNESS Patient with past medical history of pancreatitis, multiple sclerosis, hypertension, diabetes, presents to the emergency department with 2 day history of abdominal pain. Patient states her pain is 10/10. She feels very swollen and bloated. She is nausea but no vomiting. Patient states he has been constipated the last couple of days, she states I feel like it is a blockage. She denies any diarrhea. She did have 2 very small stools the first 1 was 3 days ago, and the next 1 was 2 days ago. None since. Patient also was endorsing urinary frequency, hesitancy and burning. Patient denies any fever, chills, sweats. She has had a gallbladder surgery and also pancreas surgery in the past. She is a v romana large scar in the right upper quadrant. History provided by: Patient strategy specialist needed/used: no REVIEW OF SYSTEMS Constitutional: Negative for chills, diaphoresis, fatigue and fever. HENT: Negative for sinus pressure and sore throat. Respiratory: Negative for cough, chest tightness and shortness of breath. Cardiovascular: Negative for chest pain. Gastrointestinal: Positive for abdominal distention, abdominal pain, constipation and nausea. Negative for diarrhea and vomiting. Genitourinary: Negative for dysuria, frequency and urgency. Musculoskeletal: Negative for arthralgias and myalgias. Skin: Negative for rash. Neurological: Negative for dizziness, weakness and headaches. Hematological: Negative for adenopathy. Does not bruise/bleed easily. All other systems reviewed and are negative. Allergies Reviewed in medical record Current Medications Reviewed in Medical Record. PAST HISTORY Medical Past Medical History: Diagnosis Date Multiple Sclerosis (HCC) Patient Active Problem List Diagnosis Pancreatitis Chronic Recurrent (HCC) Multiple Sclerosis (HCC) Multiple Sclerosis (HCC) Hypertension Essential Benign Bipolar Disorder (HCC) Bloating Abdominal Diabetes Mellitus Type 2 (HCC) Diabetes Mellitus Type 2 With Diabetic Neuropathy (HCC) Duodenitis Dysphagia Gastroesophageal Reflux Disease NOS Hematuria Hyperlipidemia Migraine Headache Rhinitis Seasonal Unspecified Abnormalities Of Gait And Mobility Pancreatitis Acute (HCC) Surgical Past Surgical History: Procedure Laterality Date [...] Packs/day: 0.50 Types: Cigarettes Smokeless tobacco: Never Substance Use Topics Alcohol use: No Social History Substance and Sexual Activity Drug Use Yes Frequency: 7.0 times per week Types: Marijuana OBJECTIVE Initial Vital Signs / Weights Initial Vitals Temperature 09/06/22 1214 36.5 ??C Pulse Rate 09/06/22 1214 94 Heart Rate -- Resp Rate 09/06/22 1214 20 Blood Pressure 09/06/22 1214 (!) 159/104 SpO2 09/06/22 1214 97 % Pain Score 09/06/22 1222 7 Wt Readings from Last 3 Encounters: 09/06/22 67.8 kg 06/26/22 76 kg 11/29/18 74.6 kg PHYSICAL EXAMINATION Constitutional: Nursing note and [...] normal air entry. No respiratory distress. Abdominal: Soft and firm. Bowel sounds are increased. There is abdominal tenderness. There is guarding. There is no rebound. Higher pitched tinkling bowel sounds Musculoskeletal: General: Normal range of motion. Cervical back: Normal range of motion and neck supple. Lymphadenopathy: She has no cervical adenopathy. Neurological: Alert and oriented to person, place, and time. No cranial nerve deficit. Skin: Skin is warm, dry and intact. Psychiatric: She has a normal mood and affect. DIAGNOSTICS Labs Labs Reviewed CBC WITH DIFFERENTIAL, B - Abnormal Result Value Hemoglobin 13.8 Hematocrit 40.7 Erythrocytes 4.39 MCV 92.7 RBC Distrib Width 11.4 (*) Platelet Count 310 Leukocytes 10.3 (*) Neutrophils 5.37 Lymphocytes 2.79 Monocytes 0.86 (*) Eosinophils 1.20 (*) Basophils 0.08 COMPREHENSIVE METABOLIC PANEL, S/P - Abnormal Potassium, P 3.9 Sodium, P 134 (*) Chloride, P 94 (*) Bicarbonate, P 26 Anion Gap, P 14 BUN (Blood Urea Nitrogen), P 9 Creatinine 0.61 Estimated GFR (eGFR) >90 Calcium, Total, P 9.2 Glucose, P 585 (*) Protein, Total, P 6.7 Albumin, P 3.8 Aspartate Aminotransferase (AST), P 15 Alkaline Phosphatase, P 96 Alanine Aminotransferase (ALT), P 14 Bilirubin, Total, P 0.3 LACTATE, B/P - Abnormal Lactate, P 4.1 (*) C-REACTIVE PROTEIN (CRP), S/P - Abnormal C-Reactive Protein (CRP), P 11.2 (*) URINALYSIS WITH MICROSCOPIC IF INDICATED, U - Abnormal Source Urine, Urine, Midstream Clarity Clear Color Yellow Blood Negative Nitrite Negative Leukocyte Esterase Negative Protein Negative Glucose >=1000 (*) Ketones, QI(U) Negative Bilirubin Negative pH 6.0 Specific [place] 1.010 Urobilinogen 0.2 GLUCOSE POCT, B - Abnormal Glucose, POCT, B 329 (*) GLUCOSE POCT, B - Abnormal Glucose, POCT, B 297 (*) LIPASE, S/P Lipase, P 57 BETA-HYDOXYBUTYRATE, POCT, B Beta-hydroxybutyrate, POCT, B 0.1 LACTATE, B/P Lactate, P 1.9 BLOOD GAS, POCT, B Blood Gas, POCT, B Collected VBG (VENOUS BLOOD GAS), POCT, B pH, Venous, POCT, B 7.38 pCO2, Venous, POCT, B 49 pO2, Venous, POCT, B 29 HCO3, Venous, POCT, B 29 Base Excess, Venous, POCT, B 4 O2 Saturation, Venous, POCT, B 52 Sample Type, Blood Gas, POCT PENG GLUCOSE POCT, B GLUCOSE POCT, B ECG Radiology CT Abdomen Pelvis with IV Contrast Final Result 1. Findings most consistent with acute on chronic pancreatitis involving the pancreatic uncinate process, similar to 06/26/2022. No loculated fluid collection. 2. Possible mild colitis involving the right hemicolon. No bowel obstruction. Procedures None See separate procedure note. ED COURSE ED Course as of 09/06/22 1636 Duyen Sep 06, 2022 1309 Glucose, P(!!): 585 VBG and beta hydroxy was added. 1309 Lactate(!): 4.1 Lactate 4.1, 1 L of fluid is hanging. Ordered a 2 L of fluid which will get her tooth roughly 30 cc/kilos. 1309 White Blood Cell Count(!): 10.3 1309 Neutrophils: 5.37 1309 Lipase, P: 57 1316 Beta-hydroxybutyrate, POCT, B: 0.1 Doubt DKA or HHS 1341 Glucose(!): >=1000 On urine 1427 IMPRESSION: 1. Findings most consistent with acute on chronic pancreatitis involving the pancreatic uncinate process, similar to 06/26/2022. No loculated fluid collection. 2. Possible mild colitis involving the right hemicolon. No bowel obstruction. 1434 Patient is deciding if she can do this as an outpatient or if she needs to be admitted. Patient states she has been taking for the last 24 hours to oxycodone every 4 hours and it has not really been helping her pain. With her elevated blood sugar, dehydration, and pain I think is reasonable toadmit. Patient states she wants to see if she can stay in [place], if not then she reconsider. 1542 Patient is getting more nauseated again, will try dose of droperidol. 1544 Lactate: 1.9 Lactate has normalized. Waiting for nursing staff to care for patient. Has been accepted to the floor 1610 Patient to floor. Final Diagnoses: as of 09/06/22 1636 Pancreatitis Acute (HCC) Pancreatitis Chronic Recurrent (HCC) Abdominal Pain INTERVENTIONS Medications cyclobenzaprine tablet 10 mg (FLEXERIL) (has no administration in time range) DULoxetine DR capsule 60 mg (CYMBALTA) (has no administration in time range) glipiZIDE tablet 10 mg (GLUCOTROL) (has no administration in time range) losartan tablet 100 mg (COZAAR) (has no administration in time range) ondansetron ODT disintegrating tablet 4 mg (ZOFRAN-ODT) (has no administration in time range) oxyBUTYnin 24 hr tablet 10 mg (DITROPAN-XL) (has no administration in time range) oxyCODONE IR tablet 5 mg (ROXICODONE) (has no administration in time range) QUEtiapine tablet 100 mg (SEROquel) (has no administration in time range) oxyCODONE IR tablet 10 mg (ROXICODONE) (has no administration in time range) insulin aspart U-100 injection 0-7 Units (NovoLOG FlexPen) (has no administration in time range) insulin aspart U-100 injection 0-13 Units (NovoLOG FlexPen) (has no administration in time range) NaCl 0.9 % bolus 1,000 mL (0 mL intravenous Stopped 09/06/22 1401) ondansetron (PF) injection 4 mg (ZOFRAN) (4 mg intravenous Given 09/06/22 1238) ketorolac injection 15 mg (TORADOL) (15 mg intravenous Given 09/06/22 1238) NaCl 0.9 % bolus 1,000 mL (0 mL intravenous Stopped 09/06/22 1502) fentaNYL injection 50 mcg (SUBLIMAZE) (50 mcg intravenous Given 09/06/22 1325) iohexoL 300 mg iodine/mL solution 114 mL (OMNIPAQUE) (114 mL intravenous Given 09/06/22 1356) sodium chloride 0.9 % injection 10 mL (10 mL intravenous Given 09/06/22 1355) NaCl 0.9 % bolus 78 mL (0 mL intravenous Stopped 09/06/22 1615) insulin regular injection 8 Units (8 Units intravenous Given 09/06/22 1405) HYDROmorphone injection 1 mg (DILAUDID) (1 mg intravenous Given 09/06/22 1441) droPERidoL injection 1.875 mg (INAPSINE) (1.875 mg intravenous Given 09/06/22 1600) MEDICAL DECISION MAKING Assessment and Plan Patient with a history of chronic pink tinnitus for number of years, MS, diabetes presents to the emergency department with complaints of 48 hours abdominal pain. Patient states she feels very bloated. She is had only 2 small stools in the last 48 hours, she is concerned about obstruction or constipation. Patient states it feels slightly different than her pancreatitis but also similar. She denies any fever, chills but does endorse some sweats. She is nausea but no vomiting. She denies any urinary type symptoms. Differential diagnosis includes but not limited to gastritis, pancreatitis, bowel obstruction, gastroenteritis, reflux, mesenteric ischemia, DKA, or others. Patient was evaluated on her arrival, peripheral IV was placed, L of fluid was requested. A CBC, CMP, lactate, lipase, were initially ordered, once her glucose was resulted, venous blood gas as well as a beta hydroxybutyrate to were also ordered. Disposition pending workup. Patient had taken 10 of oxycodone every 4 hours at home, there was not good pain control from this regime. Labs show profound hyperglycemia over 500, however her gap is closed, her beta hydroxybutyrate is less than 0.1. I do not believe she is in DKA or HHS. She was given 2 L of fluid in the emergency department, and 8 units of IV regular insulin, her glucose is rechecked, within an hour came down to the 320s. The patient in the emergency department was given Zofran, ketorolac, and 50 of fentanyl patient states her pain is still is 8/10. A mg of Dilaudid was then ordered. Lactate was 4, I believe this is secondary to profound dehydration. Secondary to her hyperglycemia. With her hyperglycemia, acute on chronic pain pancreatic pain (Even though her lipase is normal), we had a shared medical decision-making about attempting this as an outpatient or coming in for more fluids, IV pain medication etc.. Patient is concerned about going home since she has been taking a lot of oxycodone with no relief in her symptoms. I did discuss the case with Dr. Hamilton hospitalist in [place], he does accept the patient. I believe this patient will turn around fairly quickly once her sugars get down to baseline I think her pain will be much easier to control. . DIFFERENTIAL DIAGNOSES As above. PROBLEMS ADDRESSED THIS VISIT As above. I reviewed the following external records: inpatient records, prior outpatient labs, primary care records and prior outpatient radiology tests. Care Handoff Row Name 09/06/22 1519 Care Handoff Type of Handoff Admission handoff Provider's Name Sarina DIAGNOSIS Final diagnoses: [K85.90] Pancreatitis Acute (HCC) [K86.1] Pancreatitis Chronic Recurrent (HCC) [R10.9] Abdominal Pain DISPOSITION Home or Self Care DISCHARGE/TRANSFER VITAL SIGNS Vitals: 09/06/22 1617 BP: (!) 179/66 Pulse: 66 Resp: Temp: SpO2: 95% ED DISCHARGE MEDS ED Prescriptions None FOLLOW UP Madhav Basurto, ARIANE, FIELD CASHIER, MASH PREPARATORY OPERATOR-C, AGACNP-BC, ENP-C Emergency Medicine Madhav Basurto APRN, C.N.P., D.N.P. 09/06/22 1636 * Ivone Rosario R.N. - 09/06/2022 12:23 PM CDT Pt presents with abdominal pain x 3 days . Abdomin bloated, pain radiating to her back pain 10/08. Pt states she had 2 small BM yesterday. Has urine incontinent and burning. Ivone Rosario R.N. 09/06/22 1225 documented in this encounter Plan of Treatment Upcoming Encounters Date Type Department Care Team (Latest Contact Info) Description 04/26/2023 10:40 AM FUNERAL ARRANGEMENT DIRECTOR Virtual Visit Division of Gastroenterology in [place], [place] [address] [place] [address] Jose Roberto Patterson M.D. [address] [place] [address] 04/29/2023 9:30 AM FUNERAL ARRANGEMENT DIRECTOR Appointment Division of Gastroenterology in [place], [place] [address] [place] [address] Jose Roberto Patterson M.D. [address] [place] [phone] Shane Becerra M.D. [address] [place] [phone] Discharge Disposition: Home or Self Care documented as of this encounter Procedures Procedure Name Priority Date/Time Associated Diagnosis Comments GLUCOSE POCT, B Routine 09/08/2022 7:42 AM CDT GLUCOSE POCT, B Routine 09/08/2022 2:01 AM CDT GLUCOSE POCT, B Routine 09/07/2022 9:24 PM CDT GLUCOSE POCT, B Routine 09/07/2022 8:23 PM CDT GLUCOSE POCT, B Routine 09/07/2022 4:46 PM CDT GLUCOSE POCT, B Routine 09/07/2022 11:33 AM CDT GLUCOSE POCT, B Routine 09/07/2022 7:57 AM CDT CBC WITH DIFFERENTIAL, B Routine 09/07/2022 6:54 AM CDT MAGNESIUM, S Routine 09/07/2022 6:54 AM CDT LIPASE, S/P Routine 09/07/2022 6:54 AM CDT COMPREHENSIVE METABOLIC PANEL, S/P Routine 09/07/2022 6:54 AM CDT GLUCOSE POCT, B Routine 09/06/2022 8:23 PM CDT GLUCOSE POCT, B Routine 09/06/2022 4:51 PM CDT GLUCOSE POCT, B Routine 09/06/2022 3:41 PM CDT LACTATE, B/P STAT 09/06/2022 3:15 PM CDT GLUCOSE POCT, B Routine 09/06/2022 2:[address] ABDOMEN PELVIS WITH IV CONTRAST RAD - Semiurgent (Fast; most ED patients; some inpatients) 09/06/2022 1:59 PM CDT URINALYSIS WITH MICROSCOPIC IF INDICATED, U STAT 09/06/2022 1:24 PM CDT VBG (VENOUS BLOOD GAS), POCT, B Routine 09/06/2022 1:18 PM CDT BETA-HYDOXYBUTYRATE, POCT, B STAT 09/06/2022 1:11 PM CDT BLOOD GAS, POCT, B STAT 09/06/2022 1: 11 PM CDT CBC WITH DIFFERENTIAL, B STAT 09/06/2022 12:31 PM CDT C-REACTIVE PROTEIN (CRP), S/P STAT 09/06/2022 12:31 PM CDT LIPASE, S/P STAT 09/06/2022 12:31 PM CDT LACTATE, B/P STAT 09/06/2022 12:31 PM CDT COMPREHENSIVE METABOLIC PANEL, S/P STAT 09/06/2022 12:31 PM CDT documented in this encounter Results * (ABNORMAL) Glucose, POCT (09/08/2022 7:42 AM CDT) Glucose, POCT, B 303(H) 70 - 140 mg/dL 09/08/2022 7:42 AM CDT CNFL Blood 09/08/2022 7:42 AM CDT 09/08/2022 7:58 AM CDT Generic [facility] POCT ORDERABLES- MANUAL [address] [address], [address] [address] * (ABNORMAL) Glucose, POCT (09/08/2022 2:01 AM CDT) Glucose, POCT, B 226(H) 70 - 140 mg/dL 09/08/2022 2:01 AM CDT CNFL Blood 09/08/2022 2:01 AM CDT 09/08/2022 2:08 AM CDT Generic [facility] POCT ORDERABLES- MANUAL [address] [address], [address] [address] * (ABNORMAL) Glucose, POCT (09/07/2022 9:24 PM CDT) Glucose, POCT, B 313(H) 70 - 140 mg/dL 09/07/2022 9:24 PM CDT CNFL Blood 09/07/2022 9:24 PM CDT 09/07/2022 9:48 PM CDT Generic [facility] POCT ORDERABLES- MANUAL [address] [address], [address] [address] * (ABNORMAL) Glucose, POCT (09/07/2022 8:23 PM CDT) Glucose, POCT, B 287(H) 70 - 140 mg/dL 09/07/2022 8:23 PM CDT CNFL Blood 09/07/2022 8:23 PM CDT 09/07/2022 8:43 PM CDT Generic [facility] POCT ORDERABLES- MANUAL [address] [address], [address] [address] * (ABNORMAL) Glucose, POCT (09/07/2022 4:46 PM CDT) Glucose, POCT, B 175(H) 70 - 140 mg/dL 09/07/2022 4:46 PM CDT CNFL Blood 09/07/2022 4:46 PM CDT 09/07/2022 5:01 PM CDT Generic [facility] POCT ORDERABLES- MANUAL [address] [address], [address] [address] * (ABNORMAL) Glucose, POCT (09/07/2022 11:33 AM CDT) Glucose, POCT, B 229(H) 70 - 140 mg/dL 09/07/2022 11:33 AM CDT CNFL Blood 09/07/2022 11:3 3 AM CDT 09/07/2022 11:43 AM CDT Generic [facility] POCT ORDERABLES- MANUAL [facility] [address] [place] [address], [address] [address] * (ABNORMAL) Glucose, POCT (09/07/2022 7:57 AM CDT) Glucose, POCT, B 311(H) 70 - 140 mg/dL 09/07/2022 7:57 AM CDT CNIN Blood 09/07/2022 7:57 AM CDT 09/07/2022 8:07 AM CDT Generic [facility] POCT ORDERABLES- MANUAL [address] [address], [address] [address] * (ABNORMAL) Magnesium (09/07/2022 6:54 AM CDT) Magnesium, P 1.5(L) 1.7 - 2.3 mg/dL 09/07/2022 8:10 AM CDT [facility] Blood (Blood, Venous) 09/07/2022 6:54 AM CDT 09/07/2022 7:06 AM CDT Lincoln Branch M.D. LAB BLOOD ADD-ON [facility] [address] [place] [address], [facility] in [address] [address] * (ABNORMAL) Comprehensive Metabolic Panel (09/07/2022 6:54 AM CDT) Potassium, P 3.8 3.6 - 5.2 mmol/L 09/07/2022 8:10 AM CDT CNFL Sodium, P 140 135 - 145 mmol/L 09/07/2022 8:10 AM CDT CNFL Chloride, P 102 98 - 107 mmol/L 09/07/2022 8:10 AM CDT CNFL Bicarbonate, P 27 22 - 29 mmol/L 09/07/2022 8:10 AM CDT CNFL Anion Gap, P 11 7 - 15 09/07/2022 8:10 AM CDT CNFL BUN (Blood Urea Nitrogen), P 6 6 - 21 mg/dL 09/07/2022 8:10 AM CDT CNFL Creatinine 0.57(L) 0.59 - 1.04 mg/dL 09/07/2022 8:10 AM CDT CNFL Estimated GFR (eGFR) >90 >=60 mL/min/BS A 09/07/2022 8:10 AM CDT CNFL Comment: Estimated GFR calculated using the 2020 CKD_EPI creatinine equation. Calcium, Total, P 9.3 8.8 - 10.2 mg/dL 09/07/2022 8:10 AM CDT CNFL Glucose, P 288(H) 70 - 140 mg/dL 09/07/2022 8:10 AM CDT CNFL Protein, Total, P 6.5 6.3 - 7.9 g/dL 09/07/2022 8:10 AM CDT CNFL Albumin, P 3.6 3.5 - 5.0 g/dL 09/07/2022 8:10 AM CDT CNFL Aspartate Aminotransferase (AST), P 15 8 - 43 U/L 09/07/2022 8:10 AM CDT CNFL Alkaline Phosphatase, P 91 35 - 104 U/L 09/07/2022 8:10 AM CDT CNFL Alanine Aminotransferase (ALT), P 13 7 - 45 U/L 09/07/2022 8:10 AM CDT CNFL Bilirubin, Total, P 0.3 <=1.2 mg/dL 09/07/2022 8:10 AM CDT CNFL Blood (Blood, Venous) 09/07/2022 6:54 AM CDT 09/07/2022 7:06 AM CDT Lincoln Branch M.D. LAB BLOOD ADD-ON [facility] [address] [place] [address], [facility] CNFL [facility] in [place] [address] [address] * (ABNORMAL) CBC with Differential, Blood (09/07/2022 6:54 AM CDT) Hemoglobin 13.8 11.6 - 15.0 g/dL 09/07/2022 8:10 AM CDT CNFL Hematocrit 40.4 35.5 - 44.9 % 09/07/2022 8:10 AM CDT CNFL Erythrocytes 4.34 3.92 - 5.13 x10(12)/L 09/07/2022 8:10 AM CDT CNFL MCV 93.1 78.2 - 97.9 fL 09/07/2022 8:10 AM CDT CNFL RBC Distrib Width 11.5(L) 12.2 - 16.1 % 09/07/2022 8:10 AM CDT CNFL Platelet Count 318 157 - 371 x10(9)/L 09/07/2022 8:10 AM CDT CNFL Leukocytes 9.9(H) 3.4 - 9.6 x10(9)/L 09/07/2022 8:10 AM CDT CNFL Neutrophils 4.71 1.56 - 6.45 x10(9)/L 09/07/2022 8:10 AM CDT CNFL Lymphocytes 2.93 0.95 - 3.07 x10(9)/L 09/07/2022 8:10 AM CDT CNFL Monocytes 0.75 0.26 - 0.81 x10(9)/L 09/07/2022 8:10 AM CDT CNFL Eosinophils 1.47(H) 0.03 - 0.48 x10(9)/L 09/07/2022 8:10 AM CDT CNFL Basophils 0.06 0.01 - 0.08 x10(9)/L 09/07/2022 8:10 AM CDT CNFL Blood (Blood, Venous) 09/07/2022 6:54 AM CDT 09/07/2022 7:06 AM CDT Lincoln W Nordahl M.D. LAB BLOOD ADD-ON Performing Organization Address City/[facility]/ZIP Co de Phone Number [facility] [address] [place] [address], [address] [address] * Lipase (09/07/2022 6:54 AM CDT) Lipase, P 38 13 - 60 U/L 09/07/2022 8: 10 AM CDT CN[facility] Blood (Blood, Venous) 09/07/2022 6:54 AM CDT 09/07/2022 7:06 AM CDT Lincoln Branch M.D. LAB BLOOD ADD-ON Performing Organization Address City/[facility]/ZIP Co de Phone Number [address] [address], [address] [address] * Glucose, POCT (09/06/2022 8:23 PM CDT) Glucose, POCT, B 125 70 - 140 mg/dL 09/06/2022 8:23 PM CDT [facility] Blood 09/06/2022 8:23 PM CDT 09/06/2022 8:31 PM CDT Generic [facility] POCT ORDERABLES- MANUAL Performing Organization Address City/[facility]/ZIP Co de Phone Number [facility] [address] [place] [address], [address] [address] * (ABNORMAL) Glucose, POCT (09/06/2022 4:51 PM CDT) Glucose, POCT, B 319(H) 70 - 140 mg/dL 09/06/2022 4:51 PM CDT [facility] Blood 09/06/2022 4:51 PM CDT 09/06/2022 5:04 PM CDT Generic [facility] POCT ORDERABLES- MANUAL [facility] [address] [place] [address], [address] [address] * (ABNORMAL) Glucose, POCT (09/06/2022 3:41 PM CDT) Glucose, POCT, B 297(H) 70 - 140 mg/dL 09/06/2022 3:41 PM CDT CNFL Blood 09/06/2022 3:41 PM CDT 09/06/2022 3:48 PM CDT Generic [facility] POCT ORDERABLES- MANUAL [facility] [address] [place] [address], [facility] [address] [address] * Lactate (09/06/2022 3:15 PM CDT) [facility] Lactate, P 1.9 0.5 - 2.2 mmol/L 09/06/2022 3:42 PM CDT [facility] Blood (Blood, Venous) 09/06/2022 3:15 PM CDT 09/06/2022 3:17 PM CDT Madhav Basurto APRN, C.N.P., D.N.P. LAB BLOOD NON ADD-ON [facility] [address] [place] [address], [facility] in [address] [address] * (ABNORMAL) Glucose, POCT (09/06/2022 2:58 PM CDT) Glucose, POCT, B 329(H) 70 - 140 mg/dL 09/06/2022 2:58 PM CDT CNFL Blood 09/06/2022 2:58 PM CDT 09/06/2022 3:05 PM CDT Generic [facility] POCT ORDERABLES- MANUAL [facility] [address] [place] [address], [facility] CNFL [facility] in [address] [address] * CT Abdomen Pelvis with IV Contrast (09/06/2022 1:59 PM CDT) Anatomical Region Laterality Modality Abdomen, Pelvis, Abdominal R ST LOS, Abdominal ARZ LOS, Abdominal FLA LOS N/A Computed Tomography 09/06/2022 1:59 PM CDT Impressions 09/06/2022 2:12 PM CDT 1. Findings most consistent with acute on chronic pancreatitis involving the pancreatic uncinate process, similar to 06/26/2022. No loculated fluid collection. 2. Possible mild colitis involving the right hemicolon. No bowel obstruction. Narrative 09/06/2022 2:12 PM CDT EXAM: CT ABDOMEN PELVIS WITH IV CONTRAST COMPARISON: CT abdomen/pelvis with IV contrast 06/26/2022 FINDINGS: Pancreatic/peripancreatic edema about the pancreatic uncinate process. No definite hypoenhancing area of pancreatic parenchyma to suggest necrosis, however evaluation is limited on this single phase examination. Pancreatic parenchymal and intraductal calcifications with unchanged chronic main pancreatic duct dilatation, likely sequela of chronic pancreatitis. No loculated fluid collection. The splenic artery and vein are patent without evidence of pseudoaneurysm or thrombus, respectively. Cholecystectomy. Stable mild extrahepatic ductal dilatation. Focal fatty infiltration along the falciform ligament and gallbladder fossa. Presumed mixing artifact within the SMV. Unremarkable spleen and adrenal glands. Stable appearing tiny bilateral renal cortical cysts. No hydronephrosis. No bowel obstruction. Mild colonic diverticulosis without evidence of acute diverticulitis. Mild wall thickening/edema involving the right hemicolon. No pneumatosis, portal venous gas or free intraperitoneal air. Negative appendix. Hysterectomy. Bibasilar atelectasis. Mitral annulus calcification. T12 vertebral body hemangioma. Procedure Note Garrett Martinez M.D. - 09/06/2022 EXAM: CT ABDOMEN PELVIS WITH IV CONTRAST COMPARISON: CT abdomen/pelvis with IV contrast 06/26/2022 FINDINGS: Pancreatic/peripancreatic edema about the pancreatic uncinate process. Nodefinite hypoenhancing area of pancreatic parenchyma to suggest necrosis, however evaluation islimited on this single phase examination. Pancreatic parenchymal and intraductal calcificationswith unchanged chronic main pancreatic duct dilatation, likely sequela of chronic pancreatitis. Noloculated fluid collection. The splenic artery and vein are patent without evidence of pseudoaneurysmor thrombus, respectively. Cholecystectomy. Stable mild extrahepatic ductal dilatation. Focal fattyinfiltration along the falciform ligament and gallbladder fossa. Presumed mixing artifact withinthe SMV. Unremarkable spleen and adrenal glands. Stable appearing tiny bilateral renal corticalcysts. No hydronephrosis. No bowel obstruction. Mild colonic diverticulosis without evidence ofacute diverticulitis. Mild wall thickening/edema involving the right hemicolon. No pneumatosis,portal venous gas or free intraperitoneal air. Negative appendix. Hysterectomy. Bibasilar atelectasis. Mitral annulus calcification. T12 vertebral body hemangioma. IMPRESSION: 1. Findings most consistent with acute on chronic pancreatitis involvingthe pancreatic uncinate process, similar to 06/26/2022. No loculated fluid collection. 2. Possible mild colitis involving the right hemicolon. No bowelobstruction. Madhav Basurto APRN, C.N.P., D.N.P. IMG CT PROCEDURES * (ABNORMAL) Urinalysis with Microscopic if Indicated (09/06/2022 1:24 PM CDT) Source Urine, Urine, Midstream 09/06/2022 1:33 PM CDT CNFL Clarity Clear Clear 09/06/2022 1:36 PM CDT CNFL Color Yellow 09/06/2022 1:36 PM CDT CNFL Comment: ----REFERENCE VALUE---- Colorless Yellow Hyacinth Blood Negative Negative 09/06/2022 1:36 PM CDT CNFL Nitrite Negative Negative 09/06/2022 1:36 PM CDT CNFL Leukocyte Esterase Negative Negative 09/06/2022 1:36 PM CDT CNFL Protein Negative mg/dL 09/06/2022 1:36 PM CDT CNFL Comment: ----REFERENCE VALUE---- Negative Trace Glucose >=1000(A) Negative mg/dL 09/06/2022 1:36 PM CDT CNFL Ketones, QI(U) Negative Negative mg/dL 09/06/2022 1:36 PM CDT CNFL Bilirubin Negative Negative 09/06/2022 1:36 PM CDT CNFL pH 6.0 5.0 - 8.0 09/06/2022 1:36 PM CDT CNFL Specific [place] 1.010 1.001 - 1.035 09/06/2022 1:36 PM CDT CNFL Urobilinogen 0.2 0.2 - 1.0 mg/dL 09/06/2022 1:36 PM CDT CNFL Urine (Urine, Midstream) 09/06/2022 1:24 PM CDT 09/06/2022 1:33 PM CDT Madhav Basurto APRN C.N.P., D.N.P. LAB URINE ORDERABLES [facility] [address] [place] [address], [facility] CNFL [facility] [address] * VBG (Venous Blood Gas), POCT (09/06/2022 1:18 PM CDT) pH, Venous, POCT, B 7.38 7.32 - 7.43 09/06/2022 1:18 PM CDT CNFL pCO2, Venous, POCT, B 49 41 - 51 mm Hg 09/06/2022 1:18 PM CDT CNFL pO2, Venous, POCT, B 29 Not applicable mm Hg 09/06/2022 1:18 PM CDT CNFL HCO3, Venous, POCT, B 29 Not applicable mmol/L 09/06/2022 1:18 PM CDT CNFL Base Excess, Venous, POCT, B 4 Not applicable mmol/L 09/06/2022 1:18 PM CDT CNFL O2 Saturation, Venous, POCT, B 52 Not applicable % 09/06/2022 1:18 PM CDT CNFL Sample Type, Blood Gas, POCT PENG 09/06/2022 1:18 PM CDT CNFL Blood 09/06/2022 1:18 PM CDT 09/06/2022 1:21 PM CDT Generic [facility] POCT ORDERABLES - DEVICE Performing Organization Address [facility] [place] [address], [place] [address] * Blood Gas, POCT - Venous (09/06/2022 1:11 PM CDT) Blood Gas, POCT, B Collected DEFAULT 09/06/2022 1:14 PM CDT CNFL Blood (Other, Specify in Comments) 09/06/2022 1:11 PM CDT 09/06/2022 1:14 PM CDT Madhav Basurto APRN C.N.P., D.N.P. LAB POCT ORDERABLES - DEVICE Performing Organization Address [facility] [place] [address], [place] [address] * Beta-hydroxybutyrate, Point of Care Testing, Blood (09/06/2022 1:11 PM CDT) Beta-hydroxybut yrate, POCT, B 0.1 0.0 - 0.5 mmol/L 09/06/2022 1:16 PM CDT CNFL Blood (Blood, Venous) 09/06/2022 1:11 PM CDT 09/06/2022 1:14 PM CDT Madhav Basurto APRN, C.N.P., D.N.P. LAB BLOOD NON ADD-ON [address] [address], [address] [address] * (ABNORMAL) CRP (C-Reactive Protein) (09/06/2022 12:31 PM CDT) C-Reactive Protein (CRP), P 11.2(H) <5.0 mg/L 09/06/2022 12:53 PM CDT CNFL Blood (Blood, Venous) 09/06/2022 12:31 PM CDT 09/06/2022 12:34 PM CDT Sandra Tan APRNNAubrie., D.N.P. LAB BLOOD ADD-ON [address] [address], [address] [address] * (ABNORMAL) Lactate (09/06/2022 12:31 PM CDT) Lactate, P 4.1(H) 0.5 - 2.2 mmol/L 09/06/2022 12:51 PM CDT CNFL Blood (Blood, Venous) 09/06/2022 12:31 PM CDT 09/06/2022 12:34 PM CDT Sandra Tan APRNN.P., D.N.P. LAB BLOOD NON ADD-ON [address] [address], [address] [place] [address] * Lipase (09/06/2022 12:31 PM CDT) Lipase, P 57 13 - 60 U/L 09/06/2022 12:53 PM CDT CNFL Blood (Blood, Venous) 09/06/2022 12:31 PM CDT 09/06/2022 12:34 PM CDT Madhav Basurto APRN, C.N.P., D.N.P. LAB BLOOD ADD-ON [facility] [address] [place] [address], [facility] CNFL [facility] [address] * (ABNORMAL) Comprehensive Metabolic Panel (09/06/2022 12:31 PM CDT) Potassium, P 3.9 3.6 - 5.2 mmol/L 09/06/2022 12:53 PM CDT CNFL Sodium, P 134(L) 135 - 145 mmol/L 09/06/2022 12:53 PM CDT CNFL Chloride, P 94(L) 98 - 107 mmol/L 09/06/2022 12:53 PM CDT CNFL Bicarbonate, P 26 22 - 29 mmol/L 09/06/2022 12:53 PM CDT CNFL Anion Gap, P 14 7 - 15 09/06/2022 12:53 PM CDT CNFL BUN (Blood Urea Nitrogen), P 9 6 - 21 mg/dL 09/06/2022 12:53 PM CDT CNFL Creatinine 0.61 0.59 - 1.04 mg/dL 09/06/2022 12:53 PM CDT CNFL Estimated GFR (eGFR) >90 >=60 mL/min/BS A 09/06/2022 12:53 PM CDT CNFL Comment: Estimated GFR calculated using the 2020 CKD_EPI creatinine equation. Calcium, Total, P 9.2 8.8 - 10.2 mg/dL 09/06/2022 12:53 PM CDT CNFL Glucose, P 585(CH) 70 - 140 mg/dL 09/06/2022 12:56 PM CDT CNFL Protein, Total, P 6.7 6.3 - 7.9 g/dL 09/06/2022 12:53 PM CDT CNFL Albumin, P 3.8 3.5 - 5.0 g/dL 09/06/2022 12:53 PM CDT CNFL Aspartate Aminotransferase (AST), P 15 8 - 43 U/L 09/06/2022 12:53 PM CDT CNFL Alkaline Phosphatase, P 96 35 - 104 U/L 09/06/2022 12:53 PM CDT CNFL Alanine Aminotransferase (ALT), P 14 7 - 45 U/L 09/06/2022 12:53 PM CDT CNFL Bilirubin, Total, P 0.3 <=1.2 mg/dL 09/06/2022 12:53 PM CDT CNFL Blood (Blood, Venous) 09/06/2022 12:31 PM CDT 09/06/2022 12:34 PM CDT Mona Tan APRN.N.P., D.N.P. LAB BLOOD ADD-ON [facility] [address] [place] [address], [facility] [place] [address] * (ABNORMAL) CBC with Differential, Blood (09/06/2022 12:31 PM CDT) Hemoglobin 13.8 11.6 - 15.0 g/dL 09/06/2022 12:43 PM CDT CNFL Hematocrit 40.7 35.5 - 44.9 % 09/06/2022 12:43 PM CDT CNFL Erythrocytes 4.39 3.92 - 5.13 x10(12)/L 09/06/2022 12:43 PM CDT CNFL MCV 92.7 78.2 - 97.9 fL 09/06/2022 12:43 PM CDT CNFL RBC Distrib Width 11.4(L) 12.2 - 16.1 % 09/06/2022 12:43 PM CDT CNFL Platelet Count 310 157 - 371 x10(9)/L 09/06/2022 12:43 PM CDT CNFL Leukocytes 10.3(H) 3.4 - 9.6 x10(9)/L 09/06/2022 12:43 PM CDT CNFL Neutrophils 5.37 1.56 - 6.45 x10(9)/L 09/06/2022 12:43 PM CDT CNFL Lymphocytes 2.79 0.95 - 3.07 x10(9)/L 09/06/2022 12:43 PM CDT CNFL Monocytes 0.86(H) 0.26 - 0.81 x10(9)/L 09/06/2022 12:43 PM CDT CNFL Eosinophils 1.20(H) 0.03 - 0.48 x10(9)/L 09/06/2022 12:43 PM CDT CNFL Basophils 0.08 0.01 - 0.08 x10(9)/L 09/06/2022 12:43 PM CDT CNFL Blood (Blood, Venous) 09/06/2022 12:31 PM CDT 09/06/2022 12:34 PM CDT Madhav Basurto APRN, C.N.P., D.N.P. LAB BLOOD ADD-ON [facility] [address] [place], [place] [id number], [facility] in [address] [address] documented in this encounter Visit Diagnoses Diagnosis Pancreatitis Acute (HCC)- Primary Pancreatitis Acute (HCC) Pancreatitis Chronic Recurrent (HCC) Abdominal Pain Bipolar Disorder (HCC) Diabetes Mellitus Type 2 (HCC) Diabetes Mellitus Type 2 With Diabetic Neuropathy (HCC) Gastroesophageal Reflux Disease NOS Hyperlipidemia Multiple Sclerosis (HCC) Dysphagia documented in this encounter Admitting Diagnoses Diagnosis Pancreatitis Acute (HCC) documented in this encounter Administered Medications Inactive Administered Medications - up to 3 most recent administrations Medication Order MAR Action Action Date Dose Rate Site amLODIPine tablet 5 mg (NORVASC) 5 mg, oral, Daily, First dose on Sat09/07/22 at 0900 Given 09/08/2022 8:55 AM CDT 5 mg Given 09/07/2022 8:53 AM CDT [address] tablet 10 mg (DULCOLAX) 10 mg, oral, 2 times daily, First dose on Sat09/06/22 at 2100, Swallow whole. Do NOT crush, chew, or split tablet. Given 09/07/2022 8:53 AM CDT 10 mg Given 09/06/2022 9:19 PM CDT 10 mg bisacodyL suppository 10 mg (DULCOLAX) 10 mg, rectal, Daily, First dose on Sat09/06/22 at 1730 Given 09/06/2022 5:24 PM CDT 10 mg droPERidoL injection 1.875 mg (INAPSINE) 1.875 mg, intravenous, Once, On Duyen 09/06/22 at 1552, For 1 dose Given 09/06/2022 4:00 PM CDT 1.[address] capsule 30 mg (CYMBALTA) 30 mg, oral, Daily, First dose on Sat09/07/22 at 0900, See tube feeding guidelines for tube feeding administration instructions. Given 09/08/2022 8:55 AM CDT 30 mg Given 09/07/2022 8:53 AM CDT [address] capsule 60 mg (CYMBALTA) 60 mg, oral, Daily at bedtime, First dose (after last modification) on Sat09/06/22 at 2100, See tube feeding guidelines for tube feeding administration instructions. Given 09/07/2022 9:07 PM CDT 60 mg Given 09/06/2022 9:19 PM CDT 60 mg fentaNYL injection 50 mcg (SUBLIMAZE) 50 mcg, intravenous, Once, On Sat09/06/22 at 1317, For 1 dose Given 09/06/2022 1:25 PM CDT 50 mcg hydrALAZINE injection 10 mg (APRESOLINE) 10 mg, intravenous, Every 6 hours PRN, high blood pressure, bp > 180 x 2, 20 minutes apart, Starting on Sat09/06/22 at 2309, Systolic BP >180 for 2 consecutive readings, 20 minutes apart HYDROmorphone injection 1 mg (DILAUDID) 1 mg, intravenous, Once, On Sat09/06/22 at 1435, For 1 dose Given 09/06/2022 2:41 PM CDT 1 mg insulin aspart U-100 injection 0-13 Units (NovoLOG FlexPen) 0-13 Units, subcutaneous, 3 times daily, First dose on Sat09/06/22 at 1700, Insulin Scale: Moderate Correction Scale, 140 - 179: 2 units, 180 - 219: 4 units, 220 - 259: 6 units, 260 - 299: 8 units, 300 - 339: 10 units, 340 - 379: 12 units, 380 - 399: 13 units, Greater than 399: Call service writing Insulin orders Given 09/08/2022 9:00 AM CDT 10 Units Right Outer Thigh Given 09/07/2022 5:35 PM CDT 2 Units Le ft Upper Arm (Back) Given 09/07/2022 12:27 PM CDT 6 Units L eft Upper Arm (Back) insulin aspart U-100 injection 0-7 Units (NovoLOG FlexPen) 0-7 Units, subcutaneous, Daily at bedtime, First dose on Sat09/06/22 at 2100, Insulin Scale: Modified Bedtime Correction Scale, 220-259: 3 units, 260-299: 4 units, 300-339: 5 units, 340-379: 6 units, 380-399: 7 units, Greater than 399: Call service writing insulin orders Given 09/07/2022 9:25 PM CDT 5 Units Left Upper Arm (Back) insulin regular injection 8 Units 8 Units, intravenous, Once, On Sat09/06/22 at 1402, For 1 dose, Use subcutaneous insulin syringe to administer if ordered for subcutaneous route. Given 09/06/2022 2:05 PM CDT 8 Units iohexoL 300 mg iodine/mL solution 114 mL (OMNIPAQUE) 114 mL, intravenous, Once in imaging, contrast, Starting on Sat09/06/22 at 1319, For 1 dose Given 09/06/2022 1:56 PM CDT 114 mL ketorolac injection 15 mg (TORADOL) 15 mg, intravenous, Once, On Sat09/06/22 at 1227, For 1 dose, Adult IV push rate: Over 15 seconds. Peds IV push rate: Over 1 minute. Doses > 15 mg IV/IM are discouraged due to lack of additional analgesic benefit. Given 09/06/2022 12:38 PM CDT 15 mg lactated ringers 50 mL/hr, intravenous, Continuous, Starting on Sat09/06/22 at 1700 Rate/Dose Change 09/08/2022 9:14 AM CDT 50 mL/hr 50 mL/hr Rate/Dose Verify 09/08/2022 6:27 AM CDT 50 mL/hr 50 mL/h r New Bag 09/08/2022 2:04 AM CDT 50 mL/hr 50 mL/hr losartan tablet 100 mg (COZAAR) 100 mg, oral, Daily at bedtime, First dose on Sat09/06/22 at 2100 Given 09/07/2022 9:08 PM CDT 100 mg Given 09/06/2022 9:19 PM CDT 100 mg magnesium sulfate in water IVPB 2 g 2 g, intravenous, at 25 mL/hr, Administer over 120 Minutes, Once, On Sat09/07/22 at 0900, For 1 dose New Bag 09/07/2022 9:20 AM CDT 2 g 25 mL/hr NaCl 0.9 % bolus 1,000 mL 1,000 mL, intravenous, at 1,000 mL/hr, Administer over 1 Hours, Once, On Sat09/06/22 at 1227, For 1 dose New Bag 09/06/2022 12:37 PM CDT 1,000 mL 1000 mL/hr NaCl 0.9 % bolus 1,000 mL 1,000 mL, intravenous, at 1,000 mL/hr, Administer over 1 Hours, Once, On Sat09/06/22 at 1311, For 1 dose New Bag 09/06/2022 2:02 PM CDT 1,000 mL 1000 mL/hr NaCl 0.9 % bolus 78 mL 78 mL, intravenous, at 78 mL/hr, Administer over 1 Hours, Once, On Sat09/06/22 at 1321, For 1 dose New Bag 09/06/2022 1:56 PM CDT 78 mL 78 mL/hr ondansetron (PF) injection 4 mg (ZOFRAN) 4 mg, intravenous, Once, On Sat09/06/22 at 1227, For 1 dose Given 09/06/2022 12:38 PM CDT 4 mg ondansetron ODT disintegrating tablet 4 mg (ZOFRAN-ODT) 4 mg, oral, Every 12 hours scheduled, First dose on Sat09/06/22 at 2100, When splitting ODT at bedside, handle with gloves and a pill splitter to prevent moisture contact. Given 09/08/2022 8:56 AM CDT 4 mg Given 09/07/2022 9:08 PM CDT 4 mg Given 09/07/2022 8:53 AM CDT 4 mg oxyBUTYnin 24 hr tablet 10 mg (DITROPAN-XL) 10 mg, oral, Daily at bedtime, First dose on Sat09/06/22 at 2100, Swallow whole. Do NOT crush, chew, or split tablet. Given 09/07/2022 9:08 PM CDT 10 mg Given 09/06/2022 9:19 PM CDT 10 mg oxyCODONE IR tablet 10 mg (ROXICODONE) 10 mg, oral, Every 4 hours PRN, severe pain or score 7-10 of 10, Starting on Duyen 09/06/22 at 1859 oxyCODONE IR tablet 5 mg (ROXICODONE) 5 mg, oral, Every 4 hours PRN, moderate pain or score 4-6 of 10, Starting on Sat09/06/22 at 1859 Given 09/08/2022 9 :14 AM CDT 5 mg Given 09/07/2022 8:59 PM CDT 5 mg Given 09/07/2022 4:30 PM CDT 5 mg pantoprazole injection 40 mg (PROTONIX) 40 mg, intravenous, Every 12 hours scheduled, First dose on Sat09/06/22 at 1715, Administer IV push over 2 minutes. Add 10 mL NS to 40 mg vial for a final concentration of 4 mg/mL. Given 09/08/2022 8:56 AM CDT 4 0 mg Given 09/07/2022 9:08 PM CDT 40 mg Given 09/07/2022 8:59 AM CDT 40 mg polyethylene glycol powder packet 17 g (MIRALAX) 17 g, oral, Daily, First dose on Sat09/06/22 at 1815, Dissolve in 240 mLs (8 ounces) of water prior to giving. Avoid mixing with starch-based thickened liquids. Given 09/08/2022 9:02 AM CDT 17 g Given 09/06/2022 6:32 PM CDT 17 g QUEtiapine tablet 400 mg (SEROquel) 400 mg, oral, Daily at bedtime, First dose (after last modification) on Sat09/06/22 at 2100 Given 09/07/2022 9:07 PM CDT 400 mg Given 09/06/2022 9:19 PM CDT 400 mg sodium chloride 0.9 % injection 10 mL 10 mL, intravenous, Once, On Sat09/06/22 at 1321, For 1 dose Given 09/06/2022 1:55 PM CDT 10 mL documented in this encounter Active and Recently Administered Medications Times are shown in CDT. Scheduled Medication Order 09/06/2022 09/07/2022 09/08/2022 amLODIPine tablet 5 mg (NORVASC) 5 mg, oral, Daily, First dose on Sat09/07/22 at 0900 0853 (Given - Provider: Diane Baker RIrving.) 0855 (Given - Provider: Diane Baker RCarlosN.) bisacodyL DR tablet 10 mg (DULCOLAX) (CANCELED) 10 mg, oral, 2 times daily, First dose on Sat09/06/22 at 2100, Swallow whole. Do NOT crush, chew, or split tablet. 2118 (Given - Provider: Mariela Arguello, R.N.) 0853 (Given - Provider: Diane Baker R.N.) bisacodyL suppository 10 mg (DULCOLAX) (CANCELED) 10 mg, rectal, Daily, First dose on Sat09/06/22 at 1730 1724 (Given - Provider: Roya Nicholson RCarlosN.) 0856 (Not Given - Provider: Diane Baker RIrving. - Reason: Patient/family refused) droPERidoL injection 1.875 mg (INAPSINE) (COMPLETED) 1.875 mg, intravenous, Once, On Sat09/06/22 at 1552, For 1 dose 1600 (Given - Provider: Ivone Rosario RCarlosN.) DULoxetine DR capsule 30 mg (CYMBALTA) 30 mg, oral, Daily, First dose on Sat09/07/22 at 0900, See tube feeding guidelines for tube feeding administration instructions. 0853 (Given - Provider: Diane Baker R.N.) 0855 (Given - Provider: Diane Baker R.N.) DULoxetine DR capsule 60 mg (CYMBALTA) 60 mg, oral, Daily at bedtime, First dose (after last modification) on Duyen 09/06/22 at 2100, See tube feeding guidelines for tube feeding administration instructions. 2118 (Given - Provider: Mariela Arguello, R.N.) 2106 (Given - Provider: Eladio DixonN.) fentaNYL injection 50 mcg (SUBLIMAZE) (COMPLETED) 50 mcg, intravenous, Once, On Duyen 09/06/22 at 1317, For 1 dose 1325 (Given - Provider: Ivone Rosario R.N.) HYDROmorphone injection 1 mg (DILAUDID) (COMPLETED) 1 mg, intravenous, Once, On Duyen 09/06/22 at 1435, For 1 dose 1441 (Given - Provider: Ivone Rosario R.N.) insulin aspart U-100 injection 0-13 Units (NovoLOG FlexPen) 0-13 Units, subcutaneous, 3 times daily, First dose on Duyen 09/06/22 at 1700, Insulin Scale: Moderate Correction Scale, 140 - 179: 2 units, 180 - 219: 4 units, 220 - 259: 6 units, 260 - 299: 8 units, 300 - 339: 10 units, 340 - 379: 12 units, 380 - 399: 13 units, Greater than 399: Call service writing Insulin orders 1711 (Given - Provider: Eladio GreeneN.) 0859 (Given - Provider: Diane Baker R.N.)1227 (Given - Provider: Shavon Hu.N.)1735 (Given - Provider: Shavon Hu.N.) 0900 (Given - Provider: Shavon Hu.N.) insulin aspart U-100 injection 0-7 Units (NovoLOG FlexPen) 0-7 Units, subcutaneous, Daily at bedtime, First dose on Duyen 09/06/22 at 2100, Insulin Scale: Modified Bedtime Correction Scale, 220-259: 3 units, 260-299: 4 units, 300-339: 5 units, 340-379: 6 units, 380-399: 7 units, Greater than 399: Call service writing insulin orders 2120 (Not Given - Provider: Mariela Arguello, R.N. - Reason: Order parameters not met) 2124 (Given - Provider: Aileen Zambrano R.N. - Comment: blood sugar 313) insulin regular injection 8 Units (COMPLETED) 8 Units, intravenous, Once, On Sat09/06/22 at 1402, For 1 dose, Use subcutaneous insulin syringe to administer if ordered for subcutaneous route. 140 (Given - Provider: Ivone Rosario R.N.) ketorolac injection 15 mg (TORADOL) (COMPLETED) 15 mg, intravenous, Once, On Sat09/06/22 at 1227, For 1 dose, Adult IV push rate: Over 15 seconds. Peds IV push rate: Over 1 minute. Doses > 15 mg IV/IM are discouraged due to lack of additional analgesic benefit. 1238 (Given - Provider: Ivone Rosario R.N.) losartan tablet 100 mg (COZAAR) 100 mg, oral, Daily at bedtime, First dose on Sat09/06/22 at 2099 2118 (Given - Provider: Mariela Arguello, R.N.) 2107 (Given - Provider: Aileen Zambrano RCarlosN.) magnesium sulfate in water IVPB 2 g (COMPLETED) 2 g, intravenous, at 25 mL/hr, Administer over 120 Minutes, Once, On Sat09/07/22 at 0900, For 1 dose 0920 (New Bag - Provider: Diane Baker R.N.)1120 (Stopped - Provider: Diane Baker R.N.) montelukast tablet 10 mg (SINGULAIR) 10 mg, oral, Daily at bedtime, First dose on Sat09/06/22 at 2100, On hold since Sat09/06/2022 at 1859 until manually unheld 1858 (Held by provider - Provider: Lincoln Branch M.D. - Comment: npo)2100 (Not Given - Provider: Kira Zamarripa M.S.N., R.N. - Reason: See Provider Order) 2100 (Dose Auto Held) 1339 (Unheld by provider - Provider: Discharge Provider, Automatic) NaCl 0.9 % bolus 1,000 mL (COMPLETED) 1,000 mL, intravenous, at 1,000 mL/hr, Administer over 1 Hours, Once, On Duyen 09/06/22 at 1227, For 1 dose 1237 (New Bag - Provider: Ivone Rosario R.N.)1401 (Stopped - Provider: Ivone Rosario R.N.) NaCl 0.9 % bolus 1,000 mL (COMPLETED) 1,000 mL, intravenous, at 1,000 mL/hr, Administer over 1 Hours, Once, On Duyen 09/06/22 at 1311, For 1 dose 1402 (New Bag - Provider: Ivone Rosario R.N.)1502 (Stopped - Provider: Ivone Rosario R.N.) NaCl 0.9 % bolus 78 mL (COMPLETED) 78 mL, intravenous, at 78 mL/hr, Administer over 1 Hours, Once, On Duyen 09/06/22 at 1321, For 1 dose 1356 (New Bag - Provider: Ansley Jason RGianna(R)(CT), R.T.(R))1615 (Stopped - Provider: Roya Nicholson RIrving.) ondansetron (PF) injection 4 mg (ZOFRAN) (COMPLETED) 4 mg, intravenous, Once, On Duyen 09/06/22 at 1227, For 1 dose 1238 (Given - Provider: Ivone Rosario R.N.) ondansetron ODT disintegrating tablet 4 mg (ZOFRAN-ODT) 4 mg, oral, Every 12 hours scheduled, First dose on Duyen 09/06/22 at 2100, When splitting ODT at bedside, handle with gloves and a pill splitter to prevent moisture contact. 2118 (Given - Provider: Francesco Arguello., R.N.) 0853 (Given - Provider: Diane Baker, R.N.)210 (Given - Provider: Aileen Zambrano R.N.) 0856 (Given - Provider: Diane Baker R.N.) oxyBUTYnin 24 hr tablet 10 mg (DITROPAN-XL) 10 mg, oral, Daily at bedtime, First dose on Duyen 09/06/22 at 2100, Swallow whole. Do NOT crush, chew, or split tablet. 2118 (Given - Provider: Kira Zamarripa M.S.NCarlos, R.N.) 2107 (Given - Provider: Aileen Zambrano R.N.) pantoprazole injection 40 mg (PROTONIX) 40 mg, intravenous, Every 12 hours scheduled, First dose on Duyen 09/06/22 at 1715, Administer IV push over 2 minutes. Add 10 mL NS to 40 mg vial for a final concentration of 4 mg/mL. 172 (Given - Provider: Roya Nicholson R.N.) 08 (Given - Provider: Diane Baker R.N.)2107 (Given - Provider: Aileen Zambrano R.N.) 08 (Given - Provider: Diane Baker R.N.) polyethylene glycol powder packet 17 g (MIRALAX) 17 g, oral, Daily, First dose on Sat09/06/22 at 1815, Dissolve in 240 mLs (8 ounces) of water prior to giving. Avoid mixing with starch-based thickened liquids. 183 (Given - Provider: Roya Nicholson R.N.) 0856 (Not Given - Provider: Diane Baker R.N. - Reason: Patient/family refused) 09 (Given - Provider: Diane Baker R.N.) QUEtiapine tablet 400 mg (SEROquel) 400 mg, oral, Daily at bedtime, First dose (after last modification) on Duyen 09/06/22 at 2100 2118 (Given - Provider: Yury ArguelloS.NCarlos, R.N.) 2106 (Given - Provider: Aileen Zambrano R.N.) sodium chloride 0.9 % injection 10 mL (COMPLETED) 10 mL, intravenous, Once, On Duyen 09/06/22 at 1321, For 1 dose 1355 (Given - Provider: Dany Mandujano(Shavon)(CT), Dany(R)) Continuous Medication Order 09/06/2022 09/07/2022 09/08/2022 lactated ringers 50 mL/hr, intravenous, Continuous, Starting on Duyen 09/06/22 at 1700 1734 (New Bag - Provider: Roya Nicholson R.N.) 0120 (New Bag - Provider: Mariela Arguello, R.NCarlos)0701 (Handoff - Provider: Diane Baker R.N.)0852 (Rate/Dose Change - Provider: Diane Baker R.N.)1140 (New Bag - Provider: Diane Baker R.N.)1515 (Rate/Dose Change - Provider: Diane Baker R.N.)1632 (Rate/Dose Change - Provider: Brando Davila R.N.)1856 (Handoff - Provider: Diane Baker R.N. - Comment: [id number] (Rate/Dose Verify - Provider: Aileen Zambrano R.N.) 0147 (Rate/Dose Verify - Provider: Aileen Zambrano R.N.)0204 (New Bag - Provider: Aileen Zambrano R.N.)0627 (Rate/Dose Verify - Provider: Aileen Zambrano R.N.)0712 (Handoff - Provider: Aileen Zambrano R.N. - Comment: [id number] (Rate/Dose Change - Provider: Diane Baker R.N.)1057 (Stopped - Provider: Diane Baker R.N.) PRN Medication Order 09/06/2022 09/07/2022 09/08/2022 albuterol nebulizer solution 2.5 mg 2.5 mg, nebulization, Every 4 hours PRN, shortness of breath, wheezing, Starting on Duyen 09/06/22 at 1859, Albuterol nebs were interchanged for albuterol/levalbuterol MDI (same frequency) cyclobenzaprine tablet 10 mg (FLEXERIL) 10 mg, oral, 3 times daily PRN, muscle spasms, Starting on Udyen 09/06/22 at 1629 hydrALAZINE injection 10 mg (APRESOLINE) 10 mg, intravenous, Every 6 hours PRN, high blood pressure, bp > 180 x 2, 20 minutes apart, Starting on Duyen 09/06/22 at 2309, Systolic BP >180 for 2 consecutive readings, 20 minutes apart iohexoL 300 mg iodine/mL solution 114 mL (OMNIPAQUE) (COMPLETED) 114 mL, intravenous, Once in imaging, contrast, Starting on Duyen 09/06/22 at 1319, For 1 dose 1356 (Given - Provider: Dany Mandujano(R)(CT), Dany(R) - Comment: [id number]) oxyCODONE IR tablet 10 mg (ROXICODONE)(Linked Group 1) 10 mg, oral, Every 4 hours PRN, severe pain or score 7-10 of 10, Starting on Duyen 09/06/22 at 1859 1630 (See Alternative - Provider: Brando Davila R.N.)2058 (See Alternative - Provider: Justine Curtis R.N.) 0914 (See Alternative - Provider: Diane Baker R.N.) oxyCODONE IR tablet 5 mg (ROXICODONE)(Linked Group 1) 5 mg, oral, Every 4 hours PRN, moderate pain or score 4-6 of 10, Starting on Duyen 09/06/22 at 1859 1630 (Given - Provider: Brando Davila R.N.)2058 (Given - Provider: Justine Curtis R.N.) 0914 (Given - Provider: Diane Baker R.N.) Linked Groups Order Group 1: oxyCODONE IR tablet 5 mg (ROXICODONE)Jump to med 5 mg, oral, Every 4 hours PRN, moderate pain or score 4-6 of 10, Starting on Duyen 09/06/22 at 1859 Or oxyCODONE IR tablet 10 mg (ROXICODONE)Jump to med 10 mg, oral, Every 4 hours PRN, severe pain or score 7-10 of 10, Starting on Duyen 09/06/22 at 1859 documented in this encounter Additional Health Concerns Assessment Noted Time PHQ-9 Depression Total Score: 21 05/31/ 012 10:33 AM [employer] documented as of this encounter Care Teams 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
--- OUTSIDE RECORDS SUMMARY | 2023-04-10 10:20 | XMS_ITS | Encounter Summary ---
Author Name Unknown Organization [facility] Address [address] [place] [address] Care Team Providers Care Food Service Ambassador Name Role Phone Elsewhere, Pcp Primary Care Provider Unavailabl e Reason for Referral * Outpatient (Routine) - Authorized Specialty Diagnoses / Procedures Referred By Olivia t Referred To Contact Emergency Medicine Diagnoses Pancreatitis Acute (HCC) Rivera Brandt APRN, C.N.P., M.S.N. [address] [place] [phone] [facility] Region Referral ID Status Reason Start Date Expiration Date V isits Requested Visits Authorized [id number] Authorized 06/26/2022 06/25/2025 1 1 Reason for Visit * Reason Comments Abdominal Pain Chest Pain Upper abdominal pain and chest pain. Encounter Details Date Type Department Care Team (Late st Contact Info) Description 06/26/2022 4:59 PM CDT - 06/26/2022 8:07 PM CDT Emergency [facility] [address] [place] [phone] Madhav Basurto APRN, C.N.P., D.N.P. [address] [place] [phone] Rivera Brandt APRN C.N.P., M.S.N. [address] [place] [address] Pancreatitis Acute (HCC) (Primary Dx); Colitis Discharge Disposition: Home or Self Care Social [...] Sign Reading Time Taken Comments Blood Pressure 140/80 06/26/2022 7:41 PM CDT Pulse 90 06/26/2022 7:41 PM CDT Temperature 37 ??C (98.6 ??F) 06/26/2022 7:41 PM CDT Respiratory Rate 18 06/26/2022 7:41 PM CDT Oxygen Saturation 100% 06/26/2022 7:41 PM CDT Inhaled Oxygen Concentration - - Weight 76 kg (167 lb 8.8 oz) 06/26/2022 7:12 PM CDT Height - - Body Mass Index 28.36 01/24/2015 8:37 AM CDT documented in this encounter Discharge Instructions * Discharge Instructions* Rivera Brandt, C.N.P. - 06/26/2022 7:22 PM CDT Your symptom is suggestive for pancreatitis. Take the Zofran as needed for nausea and oxycodone forpain control. However, do not drink alcohol or operate machinery with the oxycodone as it does cause drowsiness. Make sure for the next 3-5 days to maintain a clear liquid diet. On the CT scan there is also a finding of possible stone in the pancreatic duct. It is important you follow-up with GI this week or next week for management and further evaluation. Has also finding of colitis which is likely inflammation of the colon from your diarrhea. Treatment is self-limiting and mainly supportive for this. If you have fever, nausea vomiting that you can not control even with the Zofran, worsening abdominal pain, fatigue, yellow or jaundice appearance, or worsening symptoms, return to the emergency department for further evaluation. * Attachments The following attachments cannot be sent through Care Everywhere. * Acute Pancreatitis Bvng-ob-Msyx (Indonesian) * Colitis (Indonesian) documented in this encounter Medications at Time of Discharge Medication Sig Dispensed Refills Start Date End Date donepeziL (ARICEPT) 5 mg tablet Take by mouth daily. 0 05/17/2021 losartan (COZAAR) 100 mg tablet Take 1 tablet by mouth at bedtime. 0 01/24/2015 oxyBUTYnin (DITROPAN-XL) 10 mg 24 hr tablet Take 10 mg by mouth at bedtime. 0 QUEtiapine (SEROquel) 400 mg tablet Take 400 mg by mouth at bedtime. 0 07/11/2013 baclofen (LIORESAL) 10 mg tablet Take by mouth every 8 (eight) hours. 0 05/17/2021 02/19/2023 DULoxetine (CYMBALTA) [address] capsule Take 1 capsule by mouth at bedtime. 0 01/14/2015 02/19/2023 gabapentin (NEURONTIN) 300 mg capsule take 1 capsule by oral route twice a day 0 05/17/2021 02/19/2023 glipiZIDE (GLUCOTROL) 10 mg tablet Take 20 mg by mouth at bedtime. 0 02/19/2023 ondansetron ODT (ZOFRAN-ODT) 4 mg disintegrating tablet Dissolve 1 tablet (4 mg total) in the mouth every 12 (twelve) hours. 10 tablet 0 06/26/2022 09/06/2022 oxyCODONE (ROXICODONE) 5 mg immediate release tabletIndications:Acute Pain Take 1 tablet (5 mg total) by mouth every 4 (four) hours as needed for pain Indication: Acute Pain. 12 tablet 0 06/26/2022 09/08/2022 documented as of this encounter ED Notes * Rivera Brandt C.N.P. - 06/26/2022 7:18 PM CDT Care of patient transferred to ar by Madhav Basurto CNP. Disposition pending CT. Patient presents concerning for pancreatitis. On exam, no significant abdominal tenderness at this time. CT the does have findings suggestive for localized acute pancreatitis. Patient is able to tolerate oral fluids and is not nausea at this time. Finding suspicious for possible pancreatic ductal stone. However, no significant bilirubin elevation. No fevers or chills. Do not suspect cholangitis at this time. Plan: With reassuring finding, stable vital signs, and improvement in symptoms, plan is to discharge home with oxycodone for pain control, Zofran for nausea, and referral to GI for further evaluationand close follow-up. Strict return precaution has been given to the patient and family member and they states understanding to this. VITAL SIGNS BP 143/88 Pulse 94 Temp 36 ??C (Temporal) Resp 24 Wt 76 kg SpO2 100% BMI 28.36 kg/m?? ED Course as of 06/26/221922e Jun 26, 20221912 CT Abdomen Pelvis with IV Contrast 1. Findings suggesting localized acute pancreatitis involving the uncinate process. Findings suspicious for pancreatic ductal stones and mild associated pancreatic ductal dilation. Parenchymal pancreatic calcifications compatible with chronic pancreatitis also noted. 2. Mild apparent wall thickening and mucosal enhancement throughout the sigmoid colon raising concern for colitis Thank you for allowing us to participate in the care of your patient. Dictated and Authenticated by: Mason Florian MD06/26/2022 6:54 PM Central Time ([place] & Claudio) Final Diagnoses: as of 06/26/221922 Pancreatitis Acute (HCC) Colitis Rivera Brandt, C.N.P. 06/26/221922 * Madhav Basurto C.N.P. - 06/26/2022 5:21 PM CDT Images from the original note were not included. CHIEF COMPLAINT/REASON FOR VISIT Abdominal Pain and Chest Pain (Upper abdominal pain and chest pain.) HISTORY OF PRESENT ILLNESS Patient with a history of recurrent chronic pancreatitis, MS, hypertension, bipolar disorder presents to the emergency department with complaints of abdominal pain. Patient states on Saturday she started with abdominal pain and bloating. She states her pain slowly crescendoed until today where now she describes it as being the worst pain of my life. Patient has had nausea and dry heaves. She states she is able to keep water down and she did try some cream a broccoli soup which also stayed down. Patient has been getting hot and cold flashes. Patient has no history of alcohol intake. She status post cholecystectomy 30 years ago. Unknown her triglycerides status. Patient describes the pain is generalized across her entire abdomen but mostly the right upper and left upper quadrants. 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 HENT: Negative for sinus pressure and sore throat. Respiratory: Positive for shortness of breath. Negative for cough and chest tightness. Cardiovascular: Negative for chest pain. Gastrointestinal: Positive [...] Reviewed in Medical Record. PAST HISTORY Medical History reviewed. No pertinent past medical history. Patient Active Problem List Diagnosis Pancreatitis Chronic Recurrent (HCC) Multiple Sclerosis (HCC) Multiple Sclerosis (HCC) Hypertension Essential Benign Bipolar Disorder (HCC) Surgical Past Surgical History: Procedure Laterality [...] Vital Signs / Weights Initial Vitals Temperature 06/26/22 1700 36 ??C Pulse Rate 06/26/22 1700 88 Heart Rate -- Resp Rate 06/26/22 1700 24 Blood Pressure 06/26/22 1700 (!) 161/105 SpO2 06/26/22 1700 97 % Pain Score 06/26/22 1704 8 Wt Readings from Last 3 Encounters: 06/26/22 76 kg 11/29/18 74.6 kg 07/16/18 80.4 kg PHYSICAL EXAMINATION Constitutional: Nursing note and vitals reviewed. She appears distressed (secondary to pain 11/08.). HENT: Mouth/Throat: Oropharynx is clear and moist. [...] respiratory distress. Abdominal: Soft. Bowel sounds are increased. There is abdominal tenderness. There is rebound and guarding. Diffuse, hyperactive, higher pitched bowel sounds all 4 quadrants. Large midline scar secondary to previous cholecystectomy. Musculoskeletal: General: Normal range of motion. Cervical back: Normal range of motion and neck supple. Lymphadenopathy: She has no cervical adenopathy. Neurological: Alert and oriented to person, place, and time. No cranial nerve deficit. Skin: Skin is warm, dry and intact. She is not diaphoretic. Psychiatric: She has a normal mood and affect. DIAGNOSTICS Labs CBC, CMP, lipase, lactate are pending at this writing ECG ECG NSR without acute ST elevation or depression. Nonspecific ST changes Radiology CT scan abdomen and pelvis with IV contrast pending Procedures None See separate procedure note. ED COURSE ED Course as of 06/26/222028Jun 26, 2022 171 I performed my initial evaluation of the patient. We discussed Emergency Department course including testing, treatment, and potential disposition based on findings. 1821 Pain now /[address] scanning[address] 1844 Patient signed out to Rivera Brandt CNP at change of shift Final Diagnoses: as of 06/26/222028 Pancreatitis Acute (HCC) Colitis INTERVENTIONS Medications NaCl 0.9 % bolus 1,000 mL (0 mL intravenous Stopped 06/26/22 190) ondansetron (PF) injection 4 mg (ZOFRAN) (4 mg intravenous Given 06/26/221737) HYDROmorphone injection 0.5 mg (DILAUDID) (0.5 mg intravenous Given 06/26/22 174) ketorolac injection 15 mg (TORADOL) (15 mg intravenous Given 06/26/221738) iohexoL 300 mg iodine/mL solution 100 mL (OMNIPAQUE) (100 mL intravenous Given 06/26/221820) sodium chloride 0.9 % flush 78 mL (78 mL intravenous Given 06/26/221825) sodium chloride 0.9 % injection 10 mL (10 mL intravenous Given 06/26/221826) NaCl 0.9 % bolus 1,000 mL (0 mL intravenous Stopped 06/26/221941) oxyCODONE IR tablet 5 mg (ROXICODONE) (5 mg oral Given 06/26/221939) MEDICAL DECISION MAKING Assessment and Plan Patient presents to the emergency department with complaints of abdominal pain. Symptoms have been present since Saturday and have crescendoed until today when she could not take it any longer and presents to the emergency department for further evaluation. Patient feels it could be her pancreatitis she is had this in the past. Denies any alcohol. She is status post cholecystectomy. Unknown of triglyceride level. The patient presents to the ED for evaluation of abdominal pain. The patient arrives still in active pain. At present, given the patient's history and my examination, my suspicion is that the abdominal pain is due to acute on chronic pancreatitis. While less likely, other possible etiologies in thedifferential includes appendicitis, cholecystitis, diverticulitis, bowel obstruction/perforation, mesenteric ischemia, kidney stone, AAA. That said, given the history and exam, these are significantly less likely. I have obtained additional history from the medical record and vp emerging media. Evaluation and management will include: CBC with diff, CMP, Lipase, Lactate, and PIV placement. * Toradol, hydromorphone given for pain and Zofran given for nausea. CT Scan of the abdomen and pelvis was also ordered to expedite diagnosis. DISPOSITION: Pending patient's workup and reevaluation.. DIFFERENTIAL DIAGNOSES As above. PROBLEMS ADDRESSED THIS VISIT #1 Abdominal pain: Workup is still pending, patient signed out to Rivera Brandt CNP at change of shift. Labs and CT imaging are pending.. I reviewed the following external records: inpatient records, prior outpatient labs, primary care records and prior outpatient radiology tests. DIAGNOSIS Pending DISPOSITION Pending but anticipate discharge Madhav Basurto, DNP, SURVEYOR ROD HELPER, DEPUTY PROGRAM MANAGER-C, AGACNP-BC, ENP-C Emergency Medicine Madhav Basurto, C.N.P. 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 [address] [place] [address] 04/29/2023 9:30 AM AUTO BUMPER STRAIGHTENER Appointment Division of Gastroenterology in [place], [place] [address] [place] [phone] Jose Roberto Patterson M.D. [address] [place] [phone] Shane Becerra M.D. [address] [place] [address] Discharge Disposition: Home or Self Care Scheduled Referrals Name Type Priority Associated Diagnoses Order Schedule POST ED VISIT Gastroenterology and Hepatology Outpatient Referral Routine Pancreatitis Acute (HCC) Expected: 06/29/2022, Expires: 09/27/2023 documented as of this encounter Procedures Procedure Name Priority Date/Time Associated Diagnosis Comments CT ABDOMEN PELVIS WITH IV CONTRAST RAD - Semiurgent (Fast; most ED patients; some inpatients) 06/26/2022 7:03 PM CDT COMPREHENSIVE METABOLIC PANEL, S/P STAT 06/26/2022 6:30 PM CDT CBC WITH DIFFERENTIAL, B STAT 06/26/2022 5:37 PM CDT LIPASE, S/P STAT 06/26/2022 5:37 PM CDT LACTATE, B/P STAT 06/26/2022 5:37 PM CDT documented in this encounter Results * CT Abdomen Pelvis with IV Contrast (06/26/2022 7:03 PM CDT) Anatomical Region Laterality Modality Abdomen, Pelvis, Abdominal R ST LOS, Abdominal ARZ LOS, Abdominal FLA LOS N/A Computed Tomography 06/26/2022 6:26 PM CDT Impressions 06/26/2022 7:49 PM CDT Findings compatible with focal acute pancreatitis in the uncinate process. Additional changes of chronic pancreatitis. Mild extrahepatic biliary ductal dilatation could be physiologic postcholecystectomy correlation LFTs is recommended. Normal appendix. Borderline wall thickening of the sigmoid colon. Considerations include mild colitis. vRad: ??Findings concordant with preliminary vRad report. Narrative 06/26/2022 7:49 PM CDT EXAM: CT ABDOMEN PELVIS WITH IV CONTRAST COMPARISON: CT abdomen and pelvis 07/16/2018 FINDINGS: Edema within the uncinate process of the pancreas with adjacent peripancreatic fat stranding, extending along the superior margin of the transverse duodenum, compatible with focal acute pancreatitis. Mild pancreatic ductal dilatation up to 5 mm in diameter, similar to the prior CT. Multiple coarse calcifications in the pancreas, predominantly in the head and neck, the largest of which measures 10 mm series 2 image 155, along the distal pancreatic duct and this may result in proximal pancreatic duct obstruction. No peripancreatic fluid collection. No hepatic mass. Cholecystectomy. Mild extrahepatic biliary ductal dilatation, up to 11 mm in diameter, could be physiologic postcholecystectomy, and is slightly greater than on the prior CT. Suggest correlation LFTs. The spleen, adrenal glands, kidneys, and bladder are unremarkable. Mild wall thickening of the sigmoid colon, could reflect mild colitis. Evaluation however is limited by colon decompression. No bowel obstruction. Normal appendix. Normal caliber abdominal aorta with moderate diffuse calcified atherosclerotic plaque. No adenopathy. No ascites. Mild degenerative changes lower lumbar spine. Procedure Note Steve Long M.D. - 06/26/2022 EXAM: CT ABDOMEN PELVIS WITH IV CONTRAST COMPARISON: CT abdomen and pelvis 07/16/2018 FINDINGS: Edema within the uncinate process of the pancreas with adjacentperipancreatic fat stranding, extending along the superior margin of the transverse duodenum,compatible with focal acute pancreatitis. Mild pancreatic ductal dilatation up to 5 mm indiameter, similar to the prior CT. Multiple coarse calcifications in the pancreas, predominantly in thehead and neck, the largest of which measures 10 mm series 2 image 155, along the distal pancreaticduct and this may result in proximal pancreatic duct obstruction. No peripancreatic fluidcollection. No hepatic mass. Cholecystectomy. Mild extrahepatic biliary ductaldilatation, up to 11 mm in diameter, could be physiologic postcholecystectomy, and is slightlygreater than on the prior CT. Suggest correlation LFTs. The spleen, adrenal glands, kidneys, and bladderare unremarkable. Mild wall thickening of the sigmoid colon, could reflect mild colitis.Evaluation however is limited by colon decompression. No bowel obstruction. Normal appendix. Normal caliber abdominal aorta with moderate diffuse calcifiedatherosclerotic plaque. No adenopathy. No ascites. Mild degenerative changes lower lumbar spine. IMPRESSION: Findings compatible with focal acute pancreatitis in the uncinate process.Additional changes of chronic pancreatitis. Mild extrahepatic biliary ductal dilatation could be physiologicpostcholecystectomy correlation LFTs is recommended. Normal appendix. Borderline wall thickening of the sigmoid colon. Considerations includemild colitis. vRad: Findings concordant with preliminary vRad report. Sandra Tan APRNNAbner, D.N.P. IMG CT PROCEDURES * (ABNORMAL) Comprehensive Metabolic Panel (06/26/2022 6:30 PM CDT) Potassium, P 3.7 3.6 - 5.2 mmol/L 06/26/2022 6:06 PM CDT CNFL Sodium, P 135 135 - 145 mmol/L 06/26/2022 6:06 PM CDT CNFL Chloride, P 96(L) 98 - 107 mmol/L 06/26/2022 6:06 PM CDT CNFL Bicarbonate, P 28 22 - 29 mmol/L 06/26/2022 6:06 PM CDT CNFL Anion Gap, P 11 7 - 15 06/26/2022 6:06 PM CDT CNFL BUN (Blood Urea Nitrogen), P 12 6 - 21 mg/dL 06/26/2022 6:06 PM CDT CNFL Creatinine 0.71 0.59 - 1.04 mg/dL 06/26/2022 6:06 PM CDT CNFL Estimated GFR (eGFR) >90 >=60 mL/min/BS A 06/26/2022 6:06 PM CDT CNFL Comment: Estimated GFR calculated using the 2020 CKD_EPI creatinine equation. Calcium, Total, P 10.1 8.8 - 10.2 mg/dL 06/26/2022 6:06 PM CDT CNFL Glucose, P 237(H) 70 - 140 mg/dL 06/26/2022 6:06 PM CDT CNFL Protein, Total, P 7.6 6.3 - 7.9 g/dL 06/26/2022 6:06 PM CDT CNFL Albumin, P 4.3 3.5 - 5.0 g/dL 06/26/2022 6:06 PM CDT CNFL Aspartate Aminotransferase (AST), P 15 8 - 43 U/L 06/26/2022 6:58 PM CDT CNFL Alkaline Phosphatase, P 110(H) 35 - 104 U/L 06/26/2022 6:06 PM CDT CNFL Alanine Aminotransferase (ALT), P 15 7 - 45 U/L 06/26/2022 6:06 PM CDT CNFL Bilirubin, Total, P 0.3 <=1.2 mg/dL 06/26/2022 6:06 PM CDT CNFL Blood (Blood, Venous) 06/26/2022 6:30 PM CDT 06/26/2022 6:32 PM CDT Mona Tan APRN.N.P., D.N.P. LAB BLOOD ADD-ON Performing Organization Address [facility] [place] [address], [place] [address] * Lactate (06/26/2022 5:37 PM CDT) Lactate, P 2.0 0.5 - 2.2 mmol/L 06/26/2022 6:01 PM CDT CNFL Blood (Blood, Venous) 06/26/2022 5:37 PM CDT 06/26/2022 5:40 PM CDT Mona Tan APRN.N.P., D.N.P. LAB BLOOD NON ADD-ON Performing Organization Address [facility] [place] [address], [place] [address] * (ABNORMAL) Lipase (06/26/2022 5:37 PM CDT) Lipase, P 84(H) 13 - 60 U/L 06/26/2022 6: 06 PM CDT CNFL Blood (Blood, Venous) 06/26/2022 5:37 PM CDT 06/26/2022 5:40 PM CDT Mona Tan APRN.N.P., D.N.P. LAB BLOOD ADD-ON Performing Organization Address [facility] Co de Phone Number [facility] [address] [place] [phone], [facility] CNFL [facility] in [address] [address] * (ABNORMAL) CBC with Differential, Blood (06/26/2022 5:37 PM CDT) Hemoglobin 14.5 11.6 - 15.0 g/dL 06/26/2022 5:48 PM CDT CNFL Hematocrit 42.5 35.5 - 44.9 % 06/26/2022 5:48 PM CDT CNFL Erythrocytes 4.60 3.92 - 5.13 x10(12)/L 06/26/2022 5:48 PM CDT CNFL MCV 92.4 78.2 - 97.9 fL 06/26/2022 5:48 PM CDT CNFL RBC Distrib Width 12.0(L) 12.2 - 16.1 % 06/26/2022 5:48 PM CDT CNFL Platelet Count 373(H) 157 - 371 x10(9)/L 06/26/2022 5:48 PM CDT CNFL Leukocytes 12.3(H) 3.4 - 9.6 x10(9)/L 06/26/2022 5:48 PM CDT CNFL Neutrophils 5.77 1.56 - 6.45 x10(9)/L 06/26/2022 5:48 PM CDT CNFL Lymphocytes 4.33(H) 0.95 - 3.07 x10(9)/L 06/26/2022 5:48 PM CDT CNFL Monocytes 0.98(H) 0.26 - 0.81 x10(9)/L 06/26/2022 5:48 PM CDT CNFL Eosinophils 1.15(H) 0.03 - 0.48 x10(9)/L 06/26/2022 5:48 PM CDT CNFL Basophils 0.08 0.01 - 0.08 x10(9)/L 06/26/2022 5:48 PM CDT CNFL Blood (Blood, Venous) 06/26/2022 5:37 PM CDT 06/26/2022 5:40 PM CDT Madhav Basurto APRN, C.N.P., D.N.P. LAB BLOOD ADD-ON [facility] [address] [place] [phone], [facility] CNFL [facility] in [address] [phone] documented in this encounter Visit Diagnoses Diagnosis Pancreatitis Acute (HCC)- Primary Colitis documented in this encounter Administered Medications Inactive Administered Medications - up to 3 most recent administrations Medication Order MAR Action Action Date Dose Rate Site HYDROmorphone injection 0.5 mg (DILAUDID) 0.5 mg, intravenous, Once, On Sat06/26/22 at 1725, For 1 dose Given 06/26/2022 5:42 PM CDT 0.5 mg iohexoL 300 mg iodine/mL solution 100 mL (OMNIPAQUE) 100 mL, intravenous, Once in imaging, contrast, Starting on Sat06/26/22 at 1802, For 1 dose, If administered oral then dilute in 900 mL water Given 06/26/2022 6:21 PM CDT 100 mL ketorolac injection 15 mg (TORADOL) 15 mg, intravenous, Once, On Sat06/26/22 at 1725, For 1 dose, Adult IV push rate: Over 15 seconds. Peds IV push rate: Over 1 minute. Doses > 15 mg IV/IM are discouraged due to lack of additional analgesic benefit. Given 06/26/2022 5:39 PM CDT 15 mg NaCl 0.9 % bolus 1,000 mL 1,000 mL, intravenous, at 1,000 mL/hr, Administer over 1 Hours, Once, On Sat06/26/22 at 1725, For 1 dose New Bag 06/26/2022 5:44 PM CDT 1,000 mL 1000 mL/hr NaCl 0.9 % bolus 1,000 mL 1,000 mL, intravenous, at 1,000 mL/hr, Administer over 1 Hours, Once, On Sat06/26/22 at 1814, For 1 dose New Bag 06/26/2022 7:02 PM CDT 1,000 mL 1000 mL/hr ondansetron (PF) injection 4 mg (ZOFRAN) 4 mg, intravenous, Once, On Sat06/26/22 at 1725, For 1 dose Given 06/26/2022 5:38 PM CDT 4 mg oxyCODONE IR tablet 5 mg (ROXICODONE) 5 mg, oral, Once, On Sat06/26/22 at 1920, For 1 dose Given 06/26/2022 7:40 PM CDT 5 mg sodium chloride 0.9 % flush 78 mL 78 mL, intravenous, Once, On Sat06/26/22 at 1804, For 1 dose Given 06/26/2022 6:26 PM CDT 78 mL sodium chloride 0.9 % injection 10 mL 10 mL, intravenous, Once, On Sat06/26/22 at 1804, For 1 dose Given 06/26/2022 6:27 PM CDT 10 mL documented in this encounter Active and Recently Administered Medications Times are shown in CDT. Scheduled Medication Order 06/24/2022 06/25/2022 06/26/2022 HYDROmorphone injection 0.5 mg (DILAUDID) (COMPLETED) 0.5 mg, intravenous, Once, On Sat06/26/22 at 1725, For 1 dose 174 (Given - Provid er: Kendall Masters R.N.) ketorolac injection 15 mg (TORADOL) (COMPLETED) 15 mg, intravenous, Once, On Sat06/26/22 at 1725, For 1 dose, Adult IV push rate: Over 15 seconds. Peds IV push rate: Over 1 minute. Doses > 15 mg IV/IM are discouraged due to lack of additional analgesic benefit. 1739 (Given - Provid er: Kendall Masters R.N.) NaCl 0.9 % bolus 1,000 mL (COMPLETED) 1,000 mL, intravenous, at 1,000 mL/hr, Administer over 1 Hours, Once, On Sat06/26/22 at 1725, For 1 dose 1744 (New Bag - Prov ider: Kendall Masters R.N.)1903 (Stopped - Provider: Deedee Moseley R.N.) NaCl 0.9 % bolus 1,000 mL (COMPLETED) 1,000 mL, intravenous, at 1,000 mL/hr, Administer over 1 Hours, Once, On Sat06/26/22 at 1814, For 1 dose 1902 (New Bag - Prov ider: Deedee Moseley R.N.)194 (Stopped - Provider: Deedee Moseley R.N.) ondansetron (PF) injection 4 mg (ZOFRAN) (COMPLETED) 4 mg, intravenous, Once, On e 06/26/22 at 1725, For 1 dose 1738 (Given - Provid er: Kendall Masters R.N.) oxyCODONE IR tablet 5 mg (ROXICODONE) (COMPLETED) 5 mg, oral, Once, On e 06/26/22 at 1920, For 1 dose 1940 (Given - Provid er: Deedee Moseley R.N.) sodium chloride 0.9 % flush 78 mL (COMPLETED) 78 mL, intravenous, Once, On e 06/26/22 at 1804, For 1 dose 1826 (Given - Provid er: Marito Wright R.T.(R)(CT), R.T.(R)) sodium chloride 0.9 % injection 10 mL (COMPLETED) 10 mL, intravenous, Once, On e 06/26/22 at 1804, For 1 dose 182 (Given - Provid er: Marito Wright, R.T.(R)(CT), R.T.(R)) PRN Medication Order 06/24/2022 06/25/2022 06/26/2022 iohexoL 300 mg iodine/mL solution 100 mL (OMNIPAQUE) (COMPLETED) 100 mL, intravenous, Once in imaging, contrast, Starting on Sat06/26/22 at 1802, For 1 dose, If administered oral then dilute in 900 mL water 182 (Given - Provid er: Somo Wright, R.T.(R)(CT), R.T.(R) - Comment: [id number]) documented in this encounter Additional Health Concerns Assessment Noted Time PHQ-9 Depression Total Score: 21 012 10:33 AM AUTO BUMPER STRAIGHTENER documented as of this encounter Care Teams Food Service Ambassador Relationship Specialty Start Date End Date Elsewhere, Pcp PCP - General Internal Medicine 06/26/22 documented as of this encounter
--- OUTSIDE RECORDS SUMMARY | 2023-04-10 10:20 | XMS_ITS | Encounter Summary ---
Author Name Unknown Organization [facility] Address [address] [place] [address] Care Team Providers Care Assistant Infant Toddler Teacher Name Role Phone Elsewhere, Pcp Primary Care Provider Unavailabl e Reason for Visit * Reason Comments Abdominal Pain 67 year old female r eturns to ER with continued complaints of left upper quad pain Encounter Details Date Type Department Care Team (Late st Contact Info) Description 06/27/2022 6:06 PM CDT - 06/27/2022 7:44 PM CDT Emergency [facility] [id number] [facility] [address] [place] [address] Tj Enriquez, P.A.-C. [address] [place] [phone] Abdominal Pain (Primary Dx); Pancreatitis Chronic (HCC) Discharge Disposition: Home or [...] Sign Reading Time Taken Comments Blood Pressure 155/92 06/27/2022 7:33 PM CDT Pulse 69 06/27/2022 7:33 PM CDT Temperature 36.5 ??C (97.7 ??F) 06/27/2022 7:33 PM CD T Respiratory Rate 20 06/27/2022 7:33 PM CDT Oxygen Saturation 96% 06/27/2022 7:33 PM CDT Inhaled Oxygen Concentration - - Weight - - Height - - Body Mass Index - - documented in this encounter Discharge Instructions * Attachments The following attachments cannot be sent through Care Everywhere. * Chronic Pancreatitis (Syriac) documented in this encounter Medications at Time [...] as of this encounter ED Notes * Tj Enriquez P.A.-C. - 06/27/2022 7:44 PM CDT SUBJECTIVE CHIEF COMPLAINT/REASON FOR VISIT Abdominal Pain (67 year old female returns to ER with continued complaints of left upper quad pain) HISTORY OF PRESENT ILLNESS Yary Prince is a 67 y.o. female presents to [facility] requesting evaluation for abdominal pain. Past medical history notable for but not limited to bipolar disorder, hypertension, multiple sclerosis, pancreatitis chronic recurrent, GERD, hyperlipidemia, migraine headaches, diabetes mellitus type 2. Patient was seen yesterday in the emergency department and diagnosed with acute on chronic pancreatitis which patient had 2/3 criteria including epigastric discomfort on palpation and also CT findings of acute pancreatitis with symptoms that patient has experienced in the past consistent with her pancreatitis for which he is symptomatic improvement and discharged with outpatient antiemetics and pain control. Patient returns due to worsening pain and continued GI intolerance despite her antiemetics. Notes that she was getting some improvement with the medications but has since ran out of the pain medications and has some concern of dehydration. Pain has not changed in character. No chest pain or shortness of breath. No fevers. No bloody emesis or bloody stools. History provided by: Patient and medical records management intern needed/used: no REVIEW OF SYSTEMS Constitutional: Positive for fatigue. Negative for fever. HENT: Negative for ear pain and sore throat. Eyes: Negative for visual disturbance. Respiratory: Negative for shortness of breath. Cardiovascular: Negative for chest pain. Gastrointestinal: Positive for abdominal pain, nausea and vomiting. Negative for blood in stool. Genitourinary: Negative for dysuria and hematuria. Musculoskeletal: Patient denies any new or worsening joint/muscle pain Skin: Negative for rash. Neurological: Negative for dizziness, syncope and headaches. OBJECTIVE Initial Vitals Temperature 06/27/22 1810 36.7 ??C Pulse Rate 06/27/22 1810 80 Heart Rate -- Resp Rate 06/27/22 1810 20 Blood Pressure 06/27/22 1810 (!) 150/94 SpO2 06/27/22 181 98 % Pain Score 06/27/22 181 9 PHYSICAL EXAMINATION Constitutional: Nursing note and vitals reviewed. She appears not lethargic. HENT: Head: Normocephalic and atraumatic. Nose: Nose normal. Mouth/Throat: Mucous membranes are moist. Eyes: Conjunctivae and EOM are normal. Pupils are equal, round, and reactive to light. Cardiovascular: Normal rate. Capillary refill: takes less than 3 seconds Pulmonary/Chest: Effort normal. No tachypnea. No respiratory distress. Abdominal: Soft. Normal appearance and non-distended. exhibits no distension. There is abdominal tenderness in the epigastric area and left upper quadrant. There is guarding. There is no rebound. Musculoskeletal: General: No deformity. Normal range of motion. Cervical back: Normal range of motion. Neurological: Alert and oriented to person, place, and time. She is not disoriented. She exhibits normal muscle tone. Coordination normal. Skin: Skin is warm, dry and normal color. She is not diaphoretic. Psychiatric: She has a normal mood and affect. Behavior is normal. ASSESSMENT/PLAN Assessment and Plan The patient presents to the ED for evaluation of abdominal pain. DISPOSITION: Patient is awake, alert, oriented and appropriate to questions who is nontoxic or ill-appearing. Initial presentation to ED notable for an afebrile 67-year-old female with vital signs notable for hypertension to 155/92 with otherwise normal vital signs. Secondary to patient who is having continued upper abdominal pain with previously diagnosed acute on chronic pancreatitis yesterday for which he d id have CT a plan was made to proceed with repeat abdominal labs and obtain IV access for fluids aswell as antiemetics and pain control. Signed patient out to oncoming provider Lyndon Aaron PA-C. Disposition pending repeat labs, response to medication management. . DIFFERENTIAL DIAGNOSES Acute on chronic pancreatitis, chronic pancreatitis, bowel obstruction, choledocholithiasis, intra-abdominal abscess, gastroenteritis, electrolyte abnormality, APARNA, dehydration, gastritis, esophagitis, GERD, viral syndrome. Final Diagnoses: as of 06/28/22 1235 Abdominal Pain Pancreatitis Chronic (HCC) Tj Enriquez P.A.-C. 06/28/22 1235 * Lyndon Aaron P.A.-C. - 06/27/2022 7:26 PM CDT At shift change I assumed care of the patient from outgoing provider. Patient was awaiting the results of her laboratory tests. Lab tests have returned and are improved compared to the test obtained yesterday. I reviewed the CT scan from yesterday's visit. Please see radiologist report for that note. I discussed CT scan findings with patient in depth. She verbalized understanding of all findings.We discussed admission versus discharge to home. She states feeling much improved and would like zuleyka discharged home. She understands the risks that she is taking with this decision. She is encouraged to return to the ER immediately if she changes her mind, new symptoms develop, current symptoms w orsen, symptoms fail to improve, patient becomes concerned. Patient discharged in improved condition. Differential diagnosis includes abdominal pain, chronic pancreatitis, acute pancreatitis, acute surgical abdomen, abscess. VITAL SIGNS BP (!) 150/94 (BP Location: Left arm, Patient Position: Sitting) Pulse 80 Temp 36.7 ??C (Tympanic) Resp 20 SpO2 98% Final Diagnoses: as of 06/27/221925 Abdominal Pain Pancreatitis Chronic (HCC) Lyndon Aaron P.A.-C. 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 [address] [place] [phone] 04/29/2023 9:30 AM EXPLOSIVES TRUCK DRIVER Appointment Division of Gastroenterology in [place], [place] [address] [place] [phone] Jose Roberto Patterson M.D. 200 [place] [phone] Shane Becerra M.D. 200 [place] [phone] Discharge Disposition: Home or Self Care documented as of this encounter Procedures Procedure Name Priority Date/Time Associated Diagnosis Comments CBC WITH DIFFERENTIAL, B STAT 06/27/2022 6:48 PM CDT LIPASE, S/P STAT 06/27/2022 6:48 PM CDT LACTATE, B/P STAT 06/27/2022 6:48 PM CDT AMYLASE, TOT, S STAT 06/27/2022 6:48 PM CDT COMPREHENSIVE METABOLIC PANEL, S/P STAT 06/27/2022 6:48 PM CDT documented in this encounter Results * Lactate (06/27/2022 6:48 PM CDT) Lactate, P 1.1 0.5 - 2.2 mmol/L 06/27/2022 7:15 PM CDT CNFL Blood (Blood, Venous) 06/27/2022 6:48 PM CDT 06/27/2022 6:49 PM CDT Tj Enriquez P.A.-C. LAB BLOOD NON ADD- ON [facility] [place] [facility] [address] [place] [address], [place] [facility] in [address] [address] * Amylase, Total (06/27/2022 6:48 PM CDT) Amylase, Total, P 100 28 - 100 U/L 06/27/2022 7:17 PM CDT CNFL Blood (Blood, Venous) 06/27/2022 6:48 PM CDT 06/27/2022 6:49 PM CDT Tj Enriquez P.A.-C. LAB BLOOD ADD-ON Performing Organization Address City/[facility]/ZIP Co de Phone Number [facility] [address] [place] [address], [facility] CNFL [address] [address] * Lipase (06/27/2022 6:48 PM CDT) Lipase, P 58 13 - 60 U/L 06/27/2022 7: 17 PM CDT CNFL Blood (Blood, Venous) 06/27/2022 6:48 PM CDT 06/27/2022 6:49 PM CDT Tj Enriquez P.A.-C. LAB BLOOD ADD-ON Performing Organization Address [facility] Co de Phone Number [facility] [address] [place] [phone], [facility] [address] [address] * (ABNORMAL) Comprehensive Metabolic Panel (06/27/2022 6:48 PM CDT) Potassium, P CANCELED mmol/L 06/27/2022 7:30 PM CDT CNFL Comment: Specimen was hemolyzed. Result canceled by the ancillary. Sodium, P 136 135 - 145 mmol/L 06/27/2022 7:17 PM CDT CNFL Chloride, P 99 98 - 107 mmol/L 06/27/2022 7:17 PM CDT CNFL Bicarbonate, P 26 22 - 29 mmol/L 06/27/2022 7:17 PM CDT CNFL Anion Gap, P 11 7 - 15 06/27/2022 7:17 PM CDT CNFL BUN (Blood Urea Nitrogen), P 9 6 - 21 mg/dL 06/27/2022 7:17 PM CDT CNFL Creatinine 0.54(L) 0.59 - 1.04 mg/dL 06/27/2022 7:17 PM CDT CNFL Estimated GFR (eGFR) >90 >=60 mL/min/BS A 06/27/2022 7:17 PM CDT CNFL Comment: Estimated GFR calculated using the 2020 CKD_EPI creatinine equation. Calcium, Total, P 9.4 8.8 - 10.2 mg/dL 06/27/2022 7:17 PM CDT CNFL Glucose, P 208(H) 70 - 140 mg/dL 06/27/2022 7:17 PM CDT CNFL Protein, Total, P 7.3 6.3 - 7.9 g/dL 06/27/2022 7:17 PM CDT CNFL Albumin, P 4.1 3.5 - 5.0 g/dL 06/27/2022 7:17 PM CDT CNFL Aspartate Aminotransferase (AST), P CANCELED U/L 06/27/2022 7:30 PM CDT CNFL Comment: Specimen was hemolyzed. Result canceled by the ancillary. Alkaline Phosphatase, P CANCELED U/L 06/27/2022 7:30 PM CDT CNFL Comment: Specimen was hemolyzed. Result canceled by the ancillary. Alanine Aminotransferase (ALT), P CANCELED U/L 06/27/2022 7:30 PM CDT CNFL Comment: Specimen was hemolyzed. Result canceled by the ancillary. Bilirubin, Total, P 0.3 <=1.2 mg/dL 06/27/2022 7:17 PM CDT CNFL Blood (Blood, Venous) 06/27/2022 6:48 PM CDT 06/27/2022 6:49 PM CDT Tj Enriquez P.A.-C. LAB BLOOD ADD-ON [facility] [place] [facility] [address] [place] [id number], [facility] CNFL [facility] in [address] [address] * (ABNORMAL) CBC with Differential, Blood (06/27/2022 6:48 PM CDT) [facility] Hemoglobin 14.1 11.6 - 15.0 g/dL 06/27/2022 7:04 PM CDT CNFL Hematocrit 41.4 35.5 - 44.9 % 06/27/2022 7:04 PM CDT CNFL Erythrocytes 4.48 3.92 - 5.13 x10(12)/L 06/27/2022 7:04 PM CDT CNFL MCV 92.4 78.2 - 97.9 fL 06/27/2022 7:04 PM CDT CNFL RBC Distrib Width 11.8(L) 12.2 - 16.1 % 06/27/2022 7:04 PM CDT CNFL Platelet Count 371 157 - 371 x10(9)/L 06/27/2022 7:04 PM CDT CNFL Leukocytes 11.9(H) 3.4 - 9.6 x10(9)/L 06/27/2022 7:04 PM CDT CNFL Neutrophils 5.57 1.56 - 6.45 x10(9)/L 06/27/2022 7:04 PM CDT CNFL Lymphocytes 3.66(H) 0.95 - 3.07 x10(9)/L 06/27/2022 7:04 PM CDT CNFL Monocytes 1.09(H) 0.26 - 0.81 x10(9)/L 06/27/2022 7:04 PM CDT CNFL Eosinophils 1.50(H) 0.03 - 0.48 x10(9)/L 06/27/2022 7:04 PM CDT CNFL Basophils 0.07 0.01 - 0.08 x10(9)/L 06/27/2022 7:04 PM CDT CNFL Blood (Blood, Venous) 06/27/2022 6:48 PM CDT 06/27/2022 6:49 PM CDT Tj Enriquez P.A.-C. LAB BLOOD ADD-ON [facility] [place] [facility] [id number] [place] [address], [facility] [place] [id number] [place] [address] documented in this encounter Visit Diagnoses Diagnosis Abdominal Pain- Primary Pancreatitis Chronic (HCC) documented in this encounter Administered Medications Inactive Administered Medications - up to 3 most recent administrations Medication Order MAR Action Action Date Dose Rate Site HYDROmorphone injection 0.5 mg (DILAUDID) 0.5 mg, intravenous, Once, On Sat06/27/22 at 1839, For 1 dose Given 06/27/2022 6:52 PM CDT 0.5 mg ketorolac injection 15 mg (TORADOL) 15 mg, intravenous, Once, On Sat06/27/22 at 1839, For 1 dose, Adult IV push rate: Over 15 seconds. Peds IV push rate: Over 1 minute. Doses > 15 mg IV/IM are discouraged due to lack of additional analgesic benefit. Given 06/27/2022 6:52 PM CDT 15 mg NaCl 0.9 % bolus 1,000 mL 1,000 mL, intravenous, at 1,000 mL/hr, Administer over 1 Hours, Once, On Sat06/27/22 at 1835, For 1 dose New Bag 06/27/2022 6:50 PM CDT 1,000 mL 100 0 mL/hr ondansetron (PF) injection 4 mg (ZOFRAN) 4 mg, intravenous, Once, On Sat06/27/22 at 1840, For 1 dose Given 06/27/2022 6:52 PM CDT 4 mg sodium chloride 0.9 % injection 2-10 mL 2-10 mL, intravenous, As needed, line care, Starting on Sat06/27/22 at 1834 documented in this encounter Active and Recently Administered Medications Times are shown in CDT. Scheduled Medication Order 06/25/2022 06/26/2022 06/27/2022 HYDROmorphone injection 0.5 mg (DILAUDID) (COMPLETED) 0.5 mg, intravenous, Once, On Sat06/27/22 at 1839, For 1 dose 185 (Given - Provid er: Stacie Handy R.N.) ketorolac injection 15 mg (TORADOL) (COMPLETED) 15 mg, intravenous, Once, On Sat06/27/22 at 183, For 1 dose, Adult IV push rate: Over 15 seconds. Peds IV push rate: Over 1 minute. Doses > 15 mg IV/IM are discouraged due to lack of additional analgesic benefit. 1851 (Given - Provid er: Stacie Handy R.N.) NaCl 0.9 % bolus 1,000 mL (COMPLETED) 1,000 mL, intravenous, at 1,000 mL/hr, Administer over 1 Hours, Once, On Sat06/27/22 at 1835, For 1 dose 1849 (New Bag - Prov ider: Stacie Handy R.N.)1925 (Stopped - Provider: Brittany Yusuf R.N.) ondansetron (PF) injection 4 mg (ZOFRAN) (COMPLETED) 4 mg, intravenous, Once, On Sat06/27/22 at 1840, For 1 dose 1851 (Given - Provid er: Stacie Handy R.N.) PRN Medication Order 06/25/2022 06/26/2022 06/27/2022 sodium chloride 0.9 % injection 2-10 mL(Linked Group 1) 2-10 mL, intravenous, As needed, line care, Starting on Sat06/27/22 at 1834 Linked Groups Order Group 1: Place peripheral IV: No upper extremity site restrictions (CANCELED) Upper extremity site restriction: No upper extremity site restrictions, Quantity of PIVs requested: One, STAT, Once, On Sat06/27/22 at 1835, For 1 occurrence And sodium chloride 0.9 % injection 2-10 mLJump to med 2-10 mL, intravenous, As needed, line care, Starting on Sat06/27/22 at 1834 documented in this encounter Additional Health Concerns Assessment Noted Time PHQ-9 Depression Total Score: 21 012 10:33 AM 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
--- OUTSIDE RECORDS SUMMARY | 2023-04-10 10:20 | XMS_ITS | Continuity of Care Document ---
Author Name Unknown Organization [facility] Address [address] [address] [place] [address] Phone Care Team Providers Care Appliance Servicer Name Role Phone No Information Unavailable Unavailable Allergies, Adverse Reactions, Alerts Substance Reaction Status Criticality trimethoprim Active No Information sulfamethoxazole Active No Informat ion Medications Medication Instructions Dosage Effective Dates (start - stop) Status Comments gabapentin 300 mg capsule take 1 capsule by oral route twice a day - Active quetiapine 400 mg tablet take 1 tablet by oral route every morning 400 MG - Active glipizide 10 mg tablet take 1 tablet by oral route 2 times every day before a meal 10 MG - Active amlodipine 10 mg tablet take 1 tablet by oral route every day 10 MG - Active oxybutynin chloride ER 10 mg tablet,extended release 24 hr take 1 tablet by oral route every day 10 MG - Active Multivitamin (unknown strength) Not Available - Active montelukast 10 mg tablet take 1 tablet by oral route every day in the evening 10 MG - Active losartan 100 mg tablet take 1 tablet by oral route every day 100 MG - Active donepezil 5 mg tablet take 1 tablet by oral route every day in the evening 5 MG - Active simvastatin 40 mg tablet take 1 tablet by oral route every day in the evening 40 MG - Active baclofen 10 mg tablet take 2 tablet by oral route 3 times every day 20 MG - Active Drizalma Sprinkle 20 mg capsule,delayed release take 1 capsule by oral route 2 times every day 20 MG - Active Procedures Procedure Date Ugi Endo; W/insrt Guide Wire Ugi Endo; W/bx 1/mx Level Iv-surg Path Gross/micro Offic/outpt E&m [facility] Advance Directives Directive Yes / No Effective Date File Name No Information Encounters Encounter Description Practice Location Reason(s) For Visit Diagnoses Date Provider Providers Copied on Encounter [facility], [address] [address], [place], [id number], [place] tel:[phone] No Information 0 3 No Information [facility], [address] [address], [place], [id number], [place] tel:[phone] [facility] Dysphagia, unspecified typeDuodenitis without bleedingDysphag ia, unspecified 2 Juanpablo Sanders. [address] [place] [address], [address], [id number], [place]. tel:[phone] Referring Provider: Referral Self, USE FOR SELF REFERRALS. Offic/outpt E&m [facility], [address] [address], [place], [id number], [place] tel:[phone] [facility] GI Symptoms or Concerns (chief complaint) Dysphagia, unspecified typeChronic diarrhea 2 Dano Aguayo. [address] [facility], [facility] [address], [place], [id number], [place]. tel:[phone] Referring Provider: Referral Self, USE FOR SELF REFERRALS. [facility], [address] [address], [place], [id number], [place] tel:[phone] [facility] No Information 2 Elsa Grier. [address] [facility], [facility] [address], [place], [id number], [place]. tel:[phone] Family History Family Member Type Diagnosis Age At Onset Father Problem (finding) alcoholism Mother Problem (finding) Diabetes mellitus Mother Problem (finding) Heart Disease Father Problem (finding) malignant neoplasm of l mayito Immunizations Vaccine Date Status Comments Prevnar administered Note: [facility] bi-d irectional interface ; Source: Other Registry zoster vaccine, live administered Note: [facility] bi-directional interface ; Source: Other Registry Influenza, seasonal, injectable administe red Note: [facility] bi- directional interface ; Source: Other Registry Prevnar administered Note: [facility] bi-d irectional interface ; Source: Other Registry Influenza, seasonal, injectable administe red Note: [facility] bi- directional interface ; Source: Other Registry Pneumovax 23 administered Note: [facility] bi-d irectional interface ; Source: Other Registry Influenza, seasonal, injectable administe red Note: [facility] bi- directional interface ; Source: Other Registry Influenza, seasonal, injecta ble, preservative free administered Note: [facility] bi-direct ional interface ; Source: Other Registry Influenza, seasonal, injectable administe red Note: [facility] bi- directional interface ; Source: Other Registry Influenza, seasonal, injectable administe red Note: [facility] bi- directional interface ; Source: Other Registry influenza virus vaccine, unspecified formulation administered Note: [facility] bi-di rectional interface ; Source: Other Registry Influenza, seasonal, injecta ble, preservative free administered Note: [facility] bi-direct ional interface ; Source: Other Registry Influenza, seasonal, injectable administe red Note: [facility] bi- directional interface ; Source: Other Registry Influenza, seasonal, injectable administe red Note: [facility] bi- directional interface ; Source: Other Registry Payers Payer name Insurance type Covered democrat ID Authoriza tion(s) No Information Social History Type Description Quantity Date Captured Comments Sex Female Smoking Status No Information Chief Complaint And Reason For Visit No Information Reason For Referral Reason For Referral No Information Plan Of Treatment Date Type Action Status Referral Ordered: follow-up visit after procedure Appointment date/timeframe: after procedure ordered History Of Present Illness Encounter Date Complaint History Of Prese nt Illness GI Symptoms or Concerns Patient is a pleasant 65-year-old female now presents for symptoms of dysphagia. Patient reports longstanding history of dysphagia however symptoms have been well controlled for many years. She states having an upper endoscopy with dilation quite a few years ago and since then she has not had any difficulty swallowing. In the last few months she has noticed that dry foods such as chicken, Somali fries, and bread are getting stuck often. She states she will have to have small amounts of water between each bite to get food to move down her esophagus. She states at times she has had the water and food instantly come back up into her mouth. If of piece of food material is stuck in her esophagus she will occasionally try to wash it down with water and that will instantly come back up. Eventually food has been able to pass and she has not presented to the emergency room with any food impaction symptoms. She states when laying down to bed at night she will have reflux and regurg Functional Status Date Functional Assessmen t No Information Instructions Date Instruction Additional Infor mesfin 1. I have ordered th e upper endoscopy, you can call us to schedule this. 2. Try to maintain a [...] Follow up after the procedure in clinic. Related to Dysphagia, unspecified type Assessments Type Assessment Date No Information Patient Care Teams Name Effective Dates (start - stop) Status Members No Information
--- OUTSIDE RECORDS SUMMARY | 2023-04-10 10:20 | XMS_ITS | Clinical Summary ---
Author Name Unknown Organization [facility] [place] Address [address], [place] [address] Care Team Providers Care Automotive Mechanic Name Role Phone Lew Grewal MD Primary Care Provider [phone] Source Comments You are receiving this document as you are listed as the primary care provider,follow-up provider, or the patient has been referred to you for consultation.This is in compliance with the Medicare and[facility] Hospitalcaid EHR Incentive Program,which states Providers who transition their patient to another setting of careor provider of care or refers their patient to another provider of care shouldprovide summary care record for each transition of care or referral. [employer] [facility], [facility]GetYou Allergies Active Allergy Reactions Criticality Noted Date Comments Sulfamethoxazole-Trimethoprim Hives 2010 Nitrofurantoin Hives 10/19/2010 Medications Medication Sig Dispensed Refills Start Date End Date Status NEXIUM 40 MG OR CPDRIndications:Memory loss,Multiple sclerosis (HRC) 1 daily 0 Active NORTRIPTYLINE HCL 50 MG OR CAPSIndications:Multip le sclerosis (HRC) 2 po hs 60 6 10/29/2005 Active METFORMIN HCL 500 MG OR TABS 1 twice daily 0 Active TOPROL XL OR 1 daily 0 Active LISINOPRIL 40 MG OR TABS Take one tablet by mouth every day. 0 Active ZOMIG 5 MG OR TABS 1 tab prn 0 Active CYMBALTA 30MG ORAL CAPS 1 tab qam, 2 tabs qhs 0 Active LORAZEPAM 0.5 MG OR TABS 1 tab qhs 0 Active salsalate (AKA DISALCID) 750 MG tabletIndications:Myal johana and myositis, unspecified Take 2 Tabs by mouth two times a day. 60 Tab 0 09/06/2011 Active baclofen (LIORESAL) 10 MG tablet Take 1 Tablet by mouth. 0 12/28/2010 Active QUEtiapine (SEROQUEL) 100 MG tablet QUEtiapine 100 mg oral tablet See Instructions, 1 tab(s) PO in AM, 4 tab s at bedtime 0 07/11/2013 Active diclofenac (VOLTAREN) 1 % gelIndications:Arthral johana, unspecified joint,Primary osteoarthritis of both hands Apply 2 g to skin 4 times a day. 200 g 11 01/12/2019 Active oxyCODONE (ROXICODONE) 5 MG immediate release tablet Take 1 Tablet by mouth. 0 06/19/2013 Active Active Problems Problem Noted Date Diagnosed Date Diabetic neuropathy 01/12/2019 Hyperlipidemia LDL goal <100 01/12/2019 Migraine headache 01/12/2019 Seasonal allergic rhinitis 01/12/2019 Acute pancreatitis 09/22/2014 Relapsing pancreatitis 08/29/2014 Overview: Pancreatitis Chronic Recurrent Essential hematuria 01/18/2010 Diabetes mellitus, type 2 01/12/2008 GERD (gastroesophageal reflux disease) 8 Benign essential hypertension 12/24/2006 Overview: Benign Essential Hypertension Essential hypertension, benign Bipolar disorder 09/18/2005 Overview: Epic Multiple sclerosis 09/06/2005 Abnormality of gait 09/06/2005 Resolved Problems Problem Noted Date Diagnosed Date Resolved Date Memory loss 09/06/2005 10/29/2005 Immunizations Name Administration Dates Next Due Flu Vac (3+ yrs) 03/13/2000 Social History Tobacco Use Types Packs/Day Years Used Date Smoking Tobacco: Smoker, Current Status Unknown Cigarettes 1 45 Smokeless Tobacco: Never Alcohol Use Standard Drinks/Week Comments No 0 (1 standard drink = 0.6 oz pur e alcohol) Sex and Gender Information Value Date Recorded Sex Assigned at Not on file Gender Identity Not on file Sexual Orientation Not on file Last Filed Vital Signs [...] Last Done Comments Colon Cancer Screening Plan Due 1954 Diabetes: Eye Exam 1954 Diabetes: Foot Exam 1954 Diabetes: Lipid Panel 1954 Diabetes: Urine Microalbumin 1954 COVID-19 Vaccine (#1) 1955 Adult Preventive Visit 05/11/2000 05/11/1999 Mammogram 11/04/2004 11/05/2003 Diabetes: HGBA1C 01/19/2011 10/19/2010, 09/18/2005 Diabetes: Creatinine 10/20/2011 10/19/2010, 09/19/19 06 DTaP/Tdap/Td (3 - Tdap) 08/21/2014 08/21/2004, 08/21 Zoster/Shingles (2 of 3) 07/17/2016 05/22/2016 Pneumococcal 65+ Yrs (3 - PPSV23 or PCV20) 09/20/2020 09/21/2019, 08/12/2015, 06/29/2014, Additional history exists Influenza (#1) 2022 02/17/2016, 12/30, 02/11/2014, Additional history exists Hep C Screening (Preventive Services) Completed 01/12/2019 HepA Aged Out No longer eligi ble based on patient's age to complete this topic HepB Aged Out No longer eligi ble based on patient's age to complete this topic Hib Aged Out No longer eligi ble based on patient's age to complete this topic IPV (Polio) Aged Out No longer eligi ble based on patient's age to complete this topic MCV4 Aged Out No longer eligi ble based on patient's age to complete this topic Care Teams Automotive Mechanic Relationship Specialty [place] [address] [place] [address] CHRISTINA HUGHES [id number] PCP - General Family Practice 12/10/18
--- NOTE | 2023-04-10 10:30 | CRLHL7_ITS ---
For Patients: As a result of the Century Cures Act, medical imaging exams and procedure reports are released immediately into your electronic medical record. You may view this report before your referring provider. If you have questions, please contact your health care provider. INDICATION: History of left upper extremity the DVT TECHNIQUE: Epps-scale two-dimensional ultrasound without and with compression as well as color-flow and spectral Doppler of the left upper extremity veins. COMPARISON: None. FINDINGS: Normal flow is demonstrated in the subclavian vein. Normal compressibility of and flow within the internal jugular, axillary, brachial, ulnar, radial, basilic and cephalic veins is demonstrated. No thrombus is evident. IMPRESSION: Negative left upper extremity venous Doppler study. Dictated by Lincoln Lopze MD @ 04/11/2023 3:53:51 PM (Electronically Signed)
== END 2023-04-10 10:07 | disposition home or self-care (01) ==
PROVIDERS: PCP Nurse Practitioner Family; Visit Provider Nurse Practitioner Family
DX: Z86.718 Personal history of other venous thrombosis and embolism (principal)
CPT/HCPCS: 93971

== ENCOUNTER 2023-04-19 10:34 | Outpatient (CLI) | payer MEDICARE, OTHER, SELFPAY ==
--- OUTSIDE RECORDS SUMMARY | 2023-04-19 10:40 | XMS_ITS | Clinical Summary ---
Author Name Unknown Organization [facility] Address [place], [place] [address] Care Team Providers Care Urban And Regional Planner Name Role Phone Anne Esquivel FUNCTIONAL SKILLS TUTOR Primary Care Provider [phone] Allergies Active Allergy Reactions Criticality Noted Date [...] mg by mouth at bedtime. 0 Active multivitamins-mineral industry teacher als-lutein (Centrum Silver) 0.4 mg-300 mcg- 250 [...] Max Dose: 200mg per 24hrs. 0 Active blvxhs-pyvwgdgn-mzo lase (CREON) 24,000-76,000 -120,000 unit cpDR delayed-release [...] Encounters Date Type Department Care Team Description 04/18/2023 Telephone [facility] [address] [place], [place] [id number] [facility] Tool And Die Technician Plan (Patient is ready to schedule a new consult) 03/08/2023 12:00 PM MANAGER CULINARY - 03/08/2023 3:27 PM MANAGER CULINARY Emergency [facility] [address] [place] [address] Harry Jacobo PA Pancreatic duct stones (Primary Dx) Discharge Disposition: Home Self Care 03/08/2023 Travel 01/31/2023 Home Care Visit [facility] [address] [place] [address] Gwendolyn Winter LISW CLINICAL DOCUMENTATION CONSULTANT - CASE COMMUNICATION 01/25/2023 Home Care Visit [facility] [address] [place] [address] Gwendolyn Winter LISW CLINICAL DOCUMENTATION CONSULTANT - CASE COMMUNICATION 01/23/2023 1:00 PM CDT Home Care Visit [facility] [address] [place] [address] Kiko Dinero, RN SN - OASIS DISCHARGE 01/23/2023 8:15 AM CDT Home Care Visit [facility] [address] [place] [address] Gwendolyn Winter LISW CLINICAL DOCUMENTATION CONSULTANT - HOME VISIT 01/22/2023 12:00 PM CDT Home Care Visit [facility] [address] [place] [address] Lexy Villarreal COAL WASHER - HOME VISIT 01/18/2023 11:00 AM CDT Home Care Visit [facility] [address] [place] [address] Lexy Villarreal COAL WASHER - HOME VISIT 01/17/2023 Home Care Visit [facility] [address] [place] [address] Gwendolyn Winter LISW CARE COORDINATION from Last 3 Months Social History Tobacco [...] Pay for Housing in the Last Year 11/22/2022 Sex and Gender Information Value Date Recorded Sex Assigned at Not on file Gender Identity Not on file Sexual Orientation Not on file Obstetrics History Last Filed Vital Signs Vital Sign Reading Time Taken Comments Blood Pressure 145/72 03/08/2023 11:25 AM MANAGER CULINARY Pulse 78 03/08/2023 9:49 AM MANAGER CULINARY Temperature 37 ??C (98.6 ??F) 03/08/2023 9:49 AM MANAGER CULINARY Respiratory Rate 16 03/08/2023 9:49 AM MANAGER CULINARY Oxygen Saturation 94% 03/08/2023 11:25 AM MANAGER CULINARY Inhaled Oxygen Concentration - - Weight 58.1 kg (128 lb) 03/08/2023 9:49 AM MANAGER CULINARY Height 162.6 cm (5' 4) 03/08/2023 9:49 AM MANAGER CULINARY Body Mass Index 21.97 03/08/2023 9:49 AM MANAGER CULINARY Plan of Treatment Health Maintenance Due Date [...] ABDOMEN LIMITED RUQ STAT 03/08/2023 12:53 PM MANAGER CULINARY C-REACTIVE PROTEIN KAMILLE 03/08/2023 10 :58 AM MANAGER CULINARY PLATELET ESTIMATE STAT 03/08/2023 10: 58 AM MANAGER CULINARY RED CELL MORPHOLOGY STAT 03/08/2023 1 0:58 AM MANAGER CULINARY LIPASE STAT 03/08/2023 10:58 AM MANAGER CULINARY COMP METABOLIC PANEL STAT 03/08/2023 10:58 AM MANAGER CULINARY CBC W PLT NO DIFF STAT 03/08/2023 10: 58 AM MANAGER CULINARY URINALYSIS MICROSCOPIC STAT 03/08/2023 10:25 AM MANAGER CULINARY UA W/ SEDIMENT EXAM REFLEXED PER CRITERIA STAT 03/08/2023 10:25 AM MANAGER CULINARY from Last 3 Months Results * US ABDOMEN LIMITED RUQ (03/08/2023 12:53 PM MANAGER CULINARY) Anatomical Region Laterality Modality Abdomen, LIVER Ultrasound 03/08/2023 2:40 PM MANAGER CULINARY Impressions 03/08/2023 2:40 PM MANAGER CULINARY 1. Findings similar to CT abdomen pelvis from November 22, 2022 there is dilated main pancreatic duct, measuring up to 8 mm with ductal/parenchymal calcifications. Findings again the likely sequela of chronic pancreatitis. 2. Status post cholecystectomy. Stable mild biliary duct dilation. Dictated by Waylon Kelly MD @ 03/08/2023 2:40:43 PM (Electronically Signed) Narrative 03/08/2023 2:40 PM MANAGER CULINARY For Patients: ??As a result of the Century Cures Act, medical imaging exams and procedure reports are released immediately into your electronic medical record. ??You may view this report before your referring provider. ??If you have questions, please contact your health care provider. INDICATION: Abdomen pain TECHNIQUE: Ultrasound abdomen limited. ??Sonographic images of the right upper quadrant were obtained using enriquez-scale and color Doppler [...] For Patients: As a result of the Century Cures Act, medical imagingexams and procedure reports [...] 03/08/2023 2:40:43 PM (Electronically Signed) Harry MOONEY * RED CELL MORPHOLOGY (03/08/2023 10:58 AM MANAGER CULINARY) RBC COMMENT RBC morphology appears normal RBC morphology appears normal, RBC morphology within normal limits for newborns. 03/08/2023 11:19 AM MANAGER CULINARY [facility] Blood BLOOD SPECIMEN / Unknown Butterfly / Unknown 03/08/2023 10:58 AM MANAGER CULINARY 03/08/2023 11:04 AM MANAGER CULINARY Harry MOONEY HEMATOLOGY [facility] [address] [place] [address] * PLATELET ESTIMATE (03/08/2023 10:58 AM MANAGER CULINARY) PLATELET ESTIMATE Adequate Adequate, No estimate 03/08/2023 11:19 AM [facility] Blood BLOOD SPECIMEN / Unknown Butterfly / Unknown 03/08/2023 10:58 AM MANAGER CULINARY 03/08/2023 11:04 AM MANAGER CULINARY Harry MOONEY HEMATOLOGY [facility] [address] [place] [address] * CBC with Platelets, No Differential (03/08/2023 10:58 AM MANAGER CULINARY) Pathologist [facility] WHITE BLOOD COUNT 9.0 4.5 - 11.0 thou/cu mm 03/08/2023 11:19 AM [facility] RED BLOOD COUNT 4.11 4.00 - 5.20 mil/cu mm 03/08/2023 11:19 AM [facility] HEMOGLOBIN 13.1 12.0 - 16.0 g/dL 03/08/2023 11:19 AM [facility] HEMATOCRIT 38.6 33.0 - 51.0 % 03/08/2023 11:19 AM [facility] MCV 94 80 - 100 fL 03/08/2023 11:19 AM [facility] MCH 31.9 26.0 - 34.0 pg 03/08/2023 11:19 AM [facility] MCHC 33.9 32.0 - 36.0 g/dL 03/08/2023 11:19 AM [facility] RDW 12.2 11.5 - 15.5 % 03/08/2023 11:19 AM [facility] PLATELET COUNT 259 140 - 440 thou/cu mm 03/08/2023 11:19 AM [facility] MPV 10.6 6.5 - 11.0 fL 03/08/2023 11:19 AM [facility] Blood BLOOD SPECIMEN / Unknown Butterfly / Unknown 03/08/2023 10:58 AM MANAGER CULINARY 03/08/2023 11:04 AM MANAGER CULINARY Harry MOONEY HEMATOLOGY Performing Organization Address [facility]/ZIP Co de Phone Number [facility] [address] [place] [address] * C-REACTIVE PROTEIN (03/08/2023 10:58 AM MANAGER CULINARY) C-REACTIVE PROTEIN <0.3 <0.5 mg/dL 03/08/2023 1:33 PM MANAGER CULINARY [facility] Blood BLOOD SPECIMEN / Unknown Butterfly / Unknown 03/08/2023 10:58 AM MANAGER CULINARY 03/08/2023 11:04 AM MANAGER CULINARY Harry MOONEY CHEMISTRY Performing Organization Address [facility] Co de Phone Number [facility] [address] [place] [address] * LIPASE (03/08/2023 10:58 AM MANAGER CULINARY) LIPASE 13.5 13.0 - 60.0 IU/L 03/08/2023 11:42 AM MANAGER CULINARY [facility] Blood BLOOD SPECIMEN / Unknown Butterfly / Unknown 03/08/2023 10:58 AM MANAGER CULINARY 03/08/2023 11:04 AM MANAGER CULINARY Deena Mckenna MD CHEMISTRY Performing Organization Address [facility]/ZIP Co de Phone Number [facility] [address] [place] [address] * (ABNORMAL) Comp Metabolic Panel (03/08/2023 10:58 AM MANAGER CULINARY) SODIUM 141 136 - 145 mmol/L 03/08/2023 11:42 AM [facility] POTASSIUM 3.6 3.5 - 5.1 mmol/L 03/08/2023 11:42 AM [facility] CHLORIDE 105 98 - 107 mmol/L 03/08/2023 11:42 AM [facility] CO2,TOTAL 28 22 - 29 mmol/L 03/08/2023 11:42 AM [facility] ANION GAP 8 5 - 18 03/08/2023 11:42 AM [facility] GLUCOSE 143(H) 70 - 99 mg/dL 03/08/2023 11:42 AM [facility] CALCIUM 9.6 8.8 - 10.2 mg/dL 03/08/2023 11:42 AM [facility] BUN 13 8 - 23 mg/dL 03/08/2023 11:42 AM [facility] CREATININE 0.70 0.50 - 0.90 mg/dL 03/08/2023 11:42 AM [facility] BUN/CREAT RATIO 19 10 - 20 11:42 AM [facility] eGFR >90 >90 mL/min/1.7 3m2 03/08/2023 11:42 AM [facility] Comment:As of 2021, eG FR is calculated by the CKD-EPI creatinine equation without race adjustment. ??eGFR can be influenced by muscle mass, exercise, and diet. ??The reported eGFR is an estimation only and is only applicable if the renal function is stable. ALBUMIN 3.8(L) 4.0 - 4.9 g/dL 03/08/2023 11:42 AM [facility] PROTEIN,TOTAL 6.7 6.0 - 8.0 g/dL 03/08/2023 11:42 AM [facility] BILIRUBIN,TOTAL 0.3 0.0 - 1.2 mg/dL 03/08/2023 11:42 AM [facility] ALK PHOSPHATASE 105(H) 35 - 104 IU/L 03/08/2023 11:42 AM [facility] ALT (SGPT) 44(H) 10 - 35 IU/L 03/08/2023 11:42 AM [facility] AST (SGOT) 30 10 - 35 IU/L 03/08/2023 11:42 AM [facility] Blood BLOOD SPECIMEN / Unknown Butterfly / Unknown 03/08/2023 10:58 AM MANAGER CULINARY 03/08/2023 11:04 AM MANAGER CULINARY Harry MOONEY CHEMISTRY [facility] [address] [place] [address] * (ABNORMAL) URINALYSIS MICROSCOPIC (03/08/2023 10:25 AM MANAGER CULINARY) RBC >100(A) 0-2, None Seen /HPF 03/08/2023 10:43 AM [facility] WBC 6-10(A) 0-2, 3-5, None Seen /HPF 03/08/2023 10:43 AM [facility] BACTERIA Rare None Seen, Rare, Few Bacteria/ HPF 03/08/2023 10:43 AM [facility] EPITHELIAL CELLS Few None Seen, Few Epi/HPF 03/08/2023 10:43 AM [facility] CALCIUM OXALATE CRYSTALS Present(A) (none) 03/08/2023 10:43 AM [facility] Urine URINE SPECIMEN / Unknown Non-Blood / Unknown 03/08/2023 10:25 AM MANAGER CULINARY 03/08/2023 10:30 AM MANAGER CULINARY Harry MOONEY URINE Performing Organization Address City/[facility]/ZIP Co de Phone Number [facility] [address] [place] [address] * (ABNORMAL) Urinalysis W Reflex Microscopic if Positive (03/08/2023 10:25 AM MANAGER CULINARY) COLOR Brown(A) Yellow Color 03/08/2023 10:38 AM [facility] CLARITY Cloudy(A) Clear Clarity 03/08/2023 10:38 AM [facility] SPECIFIC GRAVITY,URINE 1.025 1.010, 1.015, 1.020, 1.025 03/08/2023 10:38 AM [facility] PH,URINE 5.5 6.0, 7.0, 8.0, 5.5, 6.5, 7.5, 8.5 03/08/2023 10:38 AM [facility] UROBILINOGEN,QU ALITATIVE Normal Normal EU/dl 03/08/2023 10:38 AM [facility] PROTEIN, URINE 30(A) Negative mg/dL 03/08/2023 10:38 AM [facility] GLUCOSE, URINE Negative Negative mg/dL 03/08/2023 10:38 AM [facility] KETONES,URINE Negative Negative mg/dL 03/08/2023 10:38 AM [facility] BILIRUBIN,URINE Abnormal(A) Negative 03/08/20 10:38 AM [facility] Comment:A variety of metabol ites and/or medications may result in a positive bilirubin result. Clinical correlation is recommended. OCCULT BLOOD,URINE Large(A) Negative 03/08/2023 10:38 AM [facility] NITRITE Negative Negative 03/08/2023 10:38 AM [facility] LEUKOCYTE ESTERASE Trace(A) Negative 03/08/2023 10:38 AM [facility] Urine URINE SPECIMEN / Unknown Non-Blood / Unknown 03/08/2023 10:25 AM MANAGER CULINARY 03/08/2023 10:30 AM MANAGER CULINARY Harry MOONEY URINE Performing Organization Address [facility] Co de Phone Number [facility] [address] [place] [address] from Last 3 Months Advance Directives Documents on File Type Date Recorded Patient Saas Architect Expl anation Healthcare Directive 11/23/2022 023 Latest Code Status on File Code Status Date Activated Date Inactivated Comments Full Code 01/06/2023 7:04 PM 01/08/2023 12:46 PM Question Answer Comments Code Status Discussion: Reviewed Preferences Code Status History Code Status Date Activated Date Inactivated Comments Full Code 11/22/2022 10:09 PM 11/24/2022 2:55 PM Question Answer Comments Code Status Discussion: Reviewed Preferences Care Teams Urban And Regional Planner Relationship Specialty Start Date End Date Anne Esquivel FUNCTIONAL SKILLS TUTOR [address] [facility] CHRISTINA Ochoa [address] PCP - General Emergency Medicine 11/23/22
--- OUTSIDE RECORDS SUMMARY | 2023-04-19 10:41 | XMS_ITS | Encounter Summary ---
Author Name Unknown Organization [facility] Address [address] [place] [address] Care Team Providers Care Senior Production Supervisor Name Role Phone Elsewhere, Pcp Primary Care Provider Unavailabl e Reason for Referral * Outpatient (Routine) - Authorized Specialty Diagnoses / Procedures Referred By Olivia gonzalez Referred To Contact Pain Medicine Diagnoses Pancreatitis Chronic (HCC) Pain Abdominal Chronic Jose Roberto Patterson M.D. [address] [place] [phone] [facility] Referral ID Status Reason Start Date Expiration Date Visits Requested Visits Authorized [id number] Authorized Specialty Services Required 04/05/2023 04/04/2024 1 1 HES WRINGER Encounter Details Date Type Department Care Team (Latest Contact Info) Description 04/02/2023 Clinical Communication Division of Gastroenterology in [place], [place] [address] [place] [phone] Jose Roberto Patterson M.D. [address] [place] [phone] Social History Tobacco Use Types Packs/Day Years [...] your living situation today? I have a [facility] place to live 01/01/2023 Sex and Gender Information Value Date Recorded Sex Assigned at Female 01/01/2023 9:08 AM CDT Gender Identity Female 01/01/2023 9:08 AM CDT Sexual Orientation Straight 01/01/2023 9: 08 AM CDT documented as of this encounter Plan of Treatment Upcoming Encounters Date Type Department Care Team (Latest Contact Info) Description 04/29/2023 9:30 AM CLOTHES WRINGER Appointment Division of Gastroenterology in [place], [place] [address] [place] [address] Jose Roberto Patterson M.D. [address] [place] [phone] Shane Becerra M.D. [address] [place] [phone] Discharge Disposition: Home or Self Care 05/02/2023 Hospital Encounter Outpatient Surgery Unit in [place], [place] [address] [place] [address] Luis Andrew M.D., M.P.H. [address] [place] [phone] Scheduled Procedures Name Priority Associated Diagnoses Date/Ti me LITHOTRIPSY EXTRACORPOREAL S HOCK WAVE UNILATERAL Stone Pancreatic Duct Scheduled Referrals Name Type Priority Associated Diagnoses Orde r Schedule Pain Medicine - General consult (clinic) Outpatient Referral Routine Pancreatitis Chronic (HCC) Pain Abdominal Chronic Expected: 04/05/2023 (Approximate), Expires: 07/04/2024 documented as of this encounter Visit Diagnoses Diagnosis Pancreatitis Chronic (HCC)- Primary Pain Abdominal Chronic documented in this encounter Additional Health Concerns Assessment Noted Time PHQ-9 Depression Total Score: 21 012 10:33 AM CLOTHES WRINGER documented as of this encounter Care Teams Senior Production Supervisor Relationship Specialty Start Date End Date Elsewhere, Pcp PCP - General Internal Medicine 06/26/22 documented as of this encounter
--- OUTSIDE RECORDS SUMMARY | 2023-04-19 10:41 | XMS_ITS | Clinical Summary ---
Author Name Unknown Organization [facility] Address [address] [place] [address] Care Team Providers Care Carbon Blocks Press Operator Name Role Phone Elsewhere, Pcp Primary Care Provider Unavailabl e Source Comments Patient records contain information from all sites at [facility]. For routine questions regarding patient records, call [phone] during business hours, M-F 8:00 AM - 5:00 PM Central Time. Record requests for emergency care only can be directed to [phone] at any time.[facility] Allergies Active Allergy Reactions Criticality Noted Date [...] Date Type Department Care Team Description 04/18/2023 Clinical Communication Department of Urology in [address] [phone] Luis Andrew M.D., M.P.H. 04/03/2023 1:08 AM SECURITY SALES MANAGER - 04/03/2023 3:18 AM SECURITY SALES MANAGER Emergency [facility] [address] [place] [phone] Madhav Basurto APRN, C.N.P., D.N.P. Pancreatitis Chronic Recurrent (HCC) (Primary Dx); Abdominal Pain; Constipation Slow Transit Discharge Disposition: Home or Self Care 04/02/2023 Clinical Communication Division of Gastroenterology in [place], [place] [address] [place] [address] Jose Roberto Hays M.D. 02/19/2023 5:47 AM SECURITY SALES MANAGER - 02/19/2023 9:13 AM SECURITY SALES MANAGER Hospital Encounter [facility] 02 4 AM ADMIT [address] [place] [address] Luis Andrew M.D., M.P.H. Discharge Disposition: Home or Self Care 02/19/2023 5:10 AM SECURITY SALES MANAGER - 02/19/2023 6:50 AM SECURITY SALES MANAGER Surgery [facility] MAIN OR [address] [place] [address] Luis Andrew M.D., M.P.H. Not Performed Pancreatic LITHOTRIPSY EXTRACORPOREAL SHOCK WAVE UNILATERAL, possible multiple trips to operating room in 90 days, proceed as indicated. 02/19/2023 Clinical Communication Division of Gastroenterology in [place], [place] [address] [place] [address] Jose Roberto Hays M.D. 02/11/2023 Clinical Communication Department of Nicotine Dependence, [facility], in [place], [place] [address] [place] [address] Froy Can M.A. Nicotine Dependence from Last 3 Months Immunizations [...] your living situation today? I have a [facility] place to live 01/01/2023 Sex and Gender Information Value Date Recorded Sex Assigned at Female 01/01/2023 9:08 AM CDT Gender Identity Female 01/01/2023 9:08 AM CDT Sexual Orientation Straight 01/01/2023 9: 08 AM CDT Last Filed Vital Signs Vital Sign Reading Time Taken Comments Blood Pressure 123/75 04/03/2023 3:00 AM SECURITY SALES MANAGER Pulse 80 04/03/2023 3:00 AM SECURITY SALES MANAGER Temperature 37.8 ??C (100 ??F) 04/03/2023 1:55 AM SECURITY SALES MANAGER Respiratory Rate 18 04/03/2023 3:00 AM SECURITY SALES MANAGER Oxygen Saturation 93% 04/03/2023 3:00 AM SECURITY SALES MANAGER Inhaled Oxygen Concentration - - Weight 57.7 kg (127 lb 3.3 oz) 04/03/2023 1:15 A M SECURITY SALES MANAGER Height 158.5 cm (5' 2.4) 02/19/2023 6:31 AM SECURITY SALES MANAGER Body Mass Index 22.97 02/19/2023 6:31 AM SECURITY SALES MANAGER Plan of Treatment Upcoming Encounters Date Type Department Care Team (Latest Contact Info) Description 04/29/2023 9:30 AM SECURITY SALES MANAGER Appointment Division of Gastroenterology in [place], [place] [address] [place] [phone] Jose Roberto Patterson M.D. 200 [place] [phone] Shane Becerra M.D. 200 [place] [phone] Discharge Disposition: Home or Self Care 05/02/2023 Hospital Encounter Outpatient Surgery Unit in [place], [place] [address] [place] [phone] Luis Andrew M.D., M.P.H. 200 [place] [phone] Scheduled Procedures Name Priority Associated Diagnoses Date/Ti me LITHOTRIPSY EXTRACORPOREAL S HOCK WAVE UNILATERAL Stone Pancreatic Duct Health Maintenance Due Date Last Done Comments [...] Additional history exists Potassium Level 04/03/2024 04/03/2023, 10/2022, 01/08/2023, Additional history exists Sodium Level 04/03/2024 04/03/2023, 10/2022, 01/07/2023, Additional history exists Lipid (Cholesterol) Screening 11/23/2027, 06/02/2014, 11/30/2012 (Performed elsewhere), Additional history exists DTaP,Tdap,and Td Vaccines (4 - Td or Tdap) 07/24/2032 07/24/2022, 01/30/2006, 08/21/2004, Additional history exists Procedures Procedure Name Priority Date/Time Associated Diagnosis Comments CT ABDOMEN PELVIS WITH IV CONTRAST RAD - Semiurgent (Fast; most ED patients; some inpatients) 04/03/2023 2:[address] HEAD WITHOUT IV CONTRAST RAD - Semiurgent (Fast; most ED patients; some inpatients) 04/03/2023 2:30 AM SECURITY SALES MANAGER LIPASE, S/P STAT 04/03/2023 1:41 AM SECURITY SALES MANAGER LACTATE, B/P STAT 04/03/2023 1:41 AM SECURITY SALES MANAGER C-REACTIVE PROTEIN (CRP), S/P STAT 04/03/2023 1:41 AM SECURITY SALES MANAGER COMPREHENSIVE METABOLIC PANEL, S/P STAT 04/03/2023 1:41 AM SECURITY SALES MANAGER CBC WITH DIFFERENTIAL, B STAT 04/03/2023 1:41 AM SECURITY SALES MANAGER GLUCOSE POCT, B Routine 02/19/2023 6:17 AM SECURITY SALES MANAGER HEMOGLOBIN A1C, B Routine 02/19/2023 6:1 7 AM SECURITY SALES MANAGER from Last 3 Months Results * CT Abdomen Pelvis with IV Contrast (04/03/2023 2:34 AM SECURITY SALES MANAGER) Anatomical Region Laterality Modality Abdomen, Pelvis, Abdominal R ST LOS, Abdominal ARZ LOS, Abdominal FLA LOS N/A Computed Tomography 04/03/2023 2:24 AM SECURITY SALES MANAGER Impressions 04/03/2023 2:53 AM SECURITY SALES MANAGER 1. Sequela of chronic pancreatitis without imaging findings of acute pancreatitis. 2. Large colonic stool burden could indicate constipation. Narrative 04/03/2023 2:53 AM SECURITY SALES MANAGER EXAM: CT ABDOMEN PELVIS WITH IV CONTRAST [...] Head without IV Contrast (04/03/2023 2:30 AM SECURITY SALES MANAGER) Anatomical Region Laterality Modality Head, Neuroradiology RST LOS , Neuroradiology ARZ LOS, Neuroradiology FLA LOS N/A Computed Tomography 04/03/2023 2:18 AM SECURITY SALES MANAGER Impressions 04/03/2023 2:37 AM SECURITY SALES MANAGER 1. ??Negative for acute intracranial abnormality. 2. ??Stable patchy white matter hypoattenuation compatible with known demyelinating disease. Narrative 04/03/2023 2:37 AM SECURITY SALES MANAGER EXAM: CT HEAD WITHOUT IV CONTRAST COMPARISON: [...] CBC with Differential, Blood (04/03/2023 1:41 AM SECURITY SALES MANAGER) [facility] Hemoglobin 12.0 11.6 - 15.0 g/dL 04/03/2023 2:28 AM SECURITY SALES MANAGER CNFL Hematocrit 35.4(L) 35.5 - 44.9 % 04/03/2023 2:28 AM SECURITY SALES MANAGER CNFL Erythrocytes 3.75(L) 3.92 - 5.13 x10(12)/L 04/03/2023 2:28 AM SECURITY SALES MANAGER CNFL MCV 94.4 78.2 - 97.9 fL 04/03/2023 2:28 AM SECURITY SALES MANAGER CNFL RBC Distrib Width 12.2 12.2 - 16.1 % 04/03/2023 2:28 AM SECURITY SALES MANAGER CNFL Platelet Count 212 157 - 371 x10(9)/L 04/03/2023 2:28 AM SECURITY SALES MANAGER CNFL Leukocytes 4.7 3.4 - 9.6 x10(9)/L 04/03/2023 2:28 AM SECURITY SALES MANAGER CNFL Neutrophils 1.91 1.56 - 6.45 x10(9)/L 04/03/2023 2:28 AM SECURITY SALES MANAGER CNFL Lymphocytes 1.81 0.95 - 3.07 x10(9)/L 04/03/2023 2:28 AM SECURITY SALES MANAGER CNFL Monocytes 0.85(H) 0.26 - 0.81 x10(9)/L 04/03/2023 2:28 AM SECURITY SALES MANAGER CNFL Eosinophils 0.15 0.03 - 0.48 x10(9)/L 04/03/2023 2:28 AM SECURITY SALES MANAGER CNFL Basophils <0.04 0.01 - 0.08 x10(9)/L 04/03/2023 2:28 AM SECURITY SALES MANAGER CNFL Blood (Blood, Venous) 04/03/2023 1:41 AM SECURITY SALES MANAGER 04/03/2023 2:03 AM SECURITY SALES MANAGER Mona Tan APRN.N.P., D.N.P. LAB BLOOD ADD-ON Performing Organization Address City/[facility]/[place] [address], [place] [address] * CRP (C-Reactive Protein) (04/03/2023 1:41 AM SECURITY SALES MANAGER) C-Reactive Protein (CRP), P 3.5 <5.0 mg/L 04/03/2023 2:24 AM SECURITY SALES MANAGER CNFL Blood (Blood, Venous) 04/03/2023 1:41 AM SECURITY SALES MANAGER 04/03/2023 2:03 AM SECURITY SALES MANAGER Mona Tan APRN.N.P., D.N.P. [place] [address], [place] [address] * (ABNORMAL) Lipase (04/03/2023 1:41 AM SECURITY SALES MANAGER) Lipase, P 9(L) 13 - 60 U/L 04/03/2023 2: 24 AM SECURITY SALES MANAGER CNFL Blood (Blood, Venous) 04/03/2023 1:41 AM SECURITY SALES MANAGER 04/03/2023 2:03 AM SECURITY SALES MANAGER Mona Tan APRN.N.P., D.N.P. LAB BLOOD ADD-ON Performing Organization Address City/[facility]/[place] [address], [place] [address] * Lactate (04/03/2023 1:41 AM SECURITY SALES MANAGER) Lactate, P 1.0 0.5 - 2.2 mmol/L 04/03/2023 2:22 AM SECURITY SALES MANAGER CNFL Blood (Blood, Venous) 04/03/2023 1:41 AM SECURITY SALES MANAGER 04/03/2023 2:03 AM SECURITY SALES MANAGER Madhav Basurto APRN, Mona.N.P., D.N.P. LAB BLOOD NON ADD-ON Performing Organization Address [facility]/[place] [address], [place] [address] * (ABNORMAL) Comprehensive Metabolic Panel (04/03/2023 1:41 AM SECURITY SALES MANAGER) Potassium, P 3.9 3.6 - 5.2 mmol/L 04/03/2023 2:24 AM SECURITY SALES MANAGER CNFL Sodium, P 134(L) 135 - 145 mmol/L 04/03/2023 2:24 AM SECURITY SALES MANAGER CNFL Chloride, P 99 98 - 107 mmol/L 04/03/2023 2:24 AM SECURITY SALES MANAGER CNFL Bicarbonate, P 26 22 - 29 mmol/L 04/03/2023 2:24 AM SECURITY SALES MANAGER CNFL Anion Gap, P 9 7 - 15 04/03/2023 2:24 AM SECURITY SALES MANAGER CNFL BUN (Blood Urea Nitrogen), P 13 6 - 21 mg/dL 04/03/2023 2:24 AM SECURITY SALES MANAGER CNFL Creatinine 0.89 0.59 - 1.04 mg/dL 04/03/2023 2:24 AM SECURITY SALES MANAGER CNFL Estimated GFR (eGFR) 71 >=60 mL/min/BS A 04/03/2023 2:24 AM SECURITY SALES MANAGER CNFL Comment: Estimated GFR calculated using the 2020 CKD_EPI creatinine equation. Calcium, Total, P 9.0 8.8 - 10.2 mg/dL 04/03/2023 2:24 AM SECURITY SALES MANAGER CNFL Glucose, P 188(H) 70 - 140 mg/dL 04/03/2023 2:24 AM SECURITY SALES MANAGER CNFL Protein, Total, P 6.2(L) 6.3 - 7.9 g/dL 04/03/2023 2:24 AM SECURITY SALES MANAGER CNFL Albumin, P 3.8 3.5 - 5.0 g/dL 04/03/2023 2:24 AM SECURITY SALES MANAGER CNFL Aspartate Aminotransferase (AST), P 27 8 - 43 U/L 04/03/2023 2:24 AM SECURITY SALES MANAGER CNFL Alkaline Phosphatase, P 91 35 - 104 U/L 04/03/2023 2:24 AM SECURITY SALES MANAGER CNFL Alanine Aminotransferase (ALT), P 30 7 - 45 U/L 04/03/2023 2:24 AM SECURITY SALES MANAGER CNFL Bilirubin, Total, P <0.2 0.0 - 1.2 mg/dL 04/03/2023 2:24 AM SECURITY SALES MANAGER CNFL Blood (Blood, Venous) 04/03/2023 1:41 AM SECURITY SALES MANAGER 04/03/2023 2:03 AM SECURITY SALES MANAGER Madhav Basurto APRN, C.N.P., D.N.P. LAB BLOOD ADD-ON [facility] [address] [place] [address], [facility] in [address] [address] * Glucose, POCT (02/19/2023 6:17 AM SECURITY SALES MANAGER) Glucose, POCT, B 82 70 - 140 mg/dL 02/19/2023 6:38 AM SECURITY SALES MANAGER PCDE Site Capillary 02/19/2023 6:38 AM SECURITY SALES MANAGER PCDE Blood 02/19/2023 6:17 AM SECURITY SALES MANAGER 02/19/2023 6:38 AM SECURITY SALES MANAGER Unknown Provider LAB POCT ORDERABLES- MANUAL POC [facility] [address] [place] [address], [facility] PCDE [facility] POC [address] [place] [address] * (ABNORMAL) Hemoglobin A1c (02/19/2023 6:17 AM SECURITY SALES MANAGER) Hemoglobin A1c, B 7.8(H) 4.0 - 5.6 % 02/19/2023 7:11 AM SECURITY SALES MANAGER DTL Comment: Hemoglobin A1c values greater than or equal to 6.5 percent are diagnostic for diabetes mellitus. ??Diagnosis should be confirmed by repeat testing. ??In diabetic patients, HbA1c goals should be discussed with healthcare provider. Blood (Blood, Venous) 02/19/2023 6:17 AM SECURITY SALES MANAGER 02/19/2023 6:33 AM SECURITY SALES MANAGER Luis Andrew M.D., M.P.H. LAB BLOOD ADD-ON [facility] [address] [place] [address], [place] [facility] [address] [place] [address] from Last 3 Months Advance Directives For more information, please contact: [phone] Documents on File Type Date Recorded Patient Manager Printing Expl anation Advance Directives 09/17/2011 12:00 AM Leg acy document. See document viewer. Latest Code Status on File Code Status Date Activated Date Inactivated Comments Full Code 10/23/2022 2:51 PM 10/25/2022 1:26 AM Question Answer Comments Full Code: Discussed Care Teams Carbon Blocks Press Operator Relationship Specialty Start Date End Date Elsewhere, Pcp PCP - General Internal Medicine 06/26/22
--- OUTSIDE RECORDS SUMMARY | 2023-04-19 10:41 | XMS_ITS | Encounter Summary ---
Author Name Unknown Organization [facility] Address [address] [place] [address] Care Team Providers Care Sports Specialist Name Role Phone Elsewhere, Pcp Primary Care Provider Unavailabl e Reason for Visit * Auth/Cert (Routine) Specialty Diagnoses / Procedures Referred By Olivia t Referred To Contact Diagnoses Stone Pancreatic Duct Stone Pancreatic Duct [K86.89] Procedures ID PANC LITHOTRIPSY SHOCK WAVE Pancreatic LITHOTRIPSY EXTRACORPOREAL SHOCK WAVE UNILATERAL, possible multiple trips to the operating room in 90 days, proceed as indicated Referral ID Status Reason Start Date Expiration Date Visits Re quested Visits Authorized [id number] 1 1 Encounter Details Date Type Department Care Team (Late st Contact Info) Description 02/19/2023 5:10 AM SKIVER HAND - 02/19/2023 6:50 AM SKIVER HAND Surgery [facility] MAIN OR [address] [place] [address] Luis Andrew M.D., M.P.H. [address] [place] [address] Not Performed Pancreatic LITHOTRIPSY EXTRACORPOREAL SHOCK WAVE [...] your living situation today? I have a [facility] place to live 01/01/2023 Sex and Gender Information Value Date Recorded Sex Assigned at Female 01/01/2023 9:08 AM CDT Gender Identity Female 01/01/2023 9:08 AM CDT Sexual Orientation Straight 01/01/2023 9: 08 AM CDT documented as of this encounter Last Filed Vital Signs Vital Sign Reading Time Taken Comments Blood Pressure 126/75 02/19/2023 6:31 AM SKIVER HAND Pulse 70 02/19/2023 6:31 AM SKIVER HAND Temperature 37 ??C (98.6 ??F) 02/19/2023 6:31 AM SKIVER HAND Respiratory Rate 14 02/19/2023 6:31 AM SKIVER HAND Oxygen Saturation 95% 02/19/2023 6:31 AM SKIVER HAND Inhaled Oxygen Concentration - - Weight 57 kg (125 lb 10.6 oz) 02/19/2023 6:31 AM SKIVER HAND Height 158.5 cm (5' 2.4) 02/19/2023 6:31 AM SKIVER HAND Body Mass Index 22.69 02/19/2023 6:31 AM SKIVER HAND documented in this encounter Medications at Time [...] to proceed with ERCP tomorrow to them. ER HAND * Aquilino Flores - 02/19/2023 6:45 AM CST [facility] Spiritual Care Progress Note Patient: Yary Prince Age:67 y.o. Location: [id number] Unit Reason(s) for encounter: Spiritual support as part of the interdisciplinary care team. Spiritual Assessment Spiritual Needs and/or Concerns: None expressed at this time. Spiritual Care Plan / Recommendations: No further spiritual care requested or required at this time. Chaplains can be contacted by paging [phone] ([place]) or [phone] ([place]). ER HAND documented in this encounter Plan of Treatment Upcoming Encounters Date Type Department Care Team (Latest Contact Info) Description 04/29/2023 9:30 AM SKIVER HAND Appointment Division of Gastroenterology in [place], [place] [address] [place] [address] Jose Roberto Patterson M.D. [address] [place] [phone] Shane Becerra M.D. [address] [place] [phone] Discharge Disposition: Home or Self Care 05/02/2023 Hospital Encounter Outpatient Surgery Unit in [place], [place] [address] [place] [address] Luis Andrew M.D., M.P.H. [address] [place] [phone] Scheduled Procedures Name Priority Associated Diagnoses Date/Ti me LITHOTRIPSY EXTRACORPOREAL S HOCK WAVE UNILATERAL Stone Pancreatic Duct documented as of this encounter Procedures Procedure Name Priority Date/Time Associated Diagnosis Comments GLUCOSE POCT, B Routine 02/19/2023 6:17 AM SKIVER HAND HEMOGLOBIN A1C, B Routine 02/19/2023 6:1 7 AM SKIVER HAND documented in this encounter Results * Glucose, POCT (02/19/2023 6:17 AM SKIVER HAND) Glucose, POCT, B 82 70 - 140 mg/dL 02/19/2023 6:38 AM SKIVER HAND PCDE Site Capillary 02/19/2023 6:38 AM SKIVER HAND PCDE Blood 02/19/2023 6:17 AM SKIVER HAND 02/19/2023 6:38 AM SKIVER HAND Unknown Provider LAB POCT ORDERABLES- MANUAL Performing Organization Address [facility] Co de Phone Number POC [facility] [address] [place] [address], [facility] PCDE [facility] [address] [place] [address] * (ABNORMAL) Hemoglobin A1c (02/19/2023 6:17 AM SKIVER HAND) Pathologist [facility] Hemoglobin A1c, B 7.8(H) 4.0 - 5.6 % 02/19/2023 7:11 AM SKIVER HAND DTL Comment: Hemoglobin A1c values greater than or equal to 6.5 percent are diagnostic for diabetes mellitus. ??Diagnosis should be confirmed by repeat testing. ??In diabetic patients, HbA1c goals should be discussed with healthcare provider. Blood (Blood, Venous) 02/19/2023 6:17 AM SKIVER HAND 02/19/2023 6:33 AM SKIVER HAND Luis Andrew M.D., M.P.H. LAB BLOOD ADD-ON Performing Organization Address City/[facility]/ZIP Co de Phone Number [facility] [address] [place] [address], [facility] DTL [facility] [address] [place] [address] documented in this encounter Visit Diagnoses Diagnosis [...] in preprocedural area. Given 02/19/2023 7:27 AM SKIVER HAND 1,000 mg chlorhexidine 0.12 % mouthwash 15 [...] Recently Administered Medications Times are shown in SKIVER HAND. Scheduled Medication Order 02/17/2023 02/18/2023 02/19/2023 acetaminophen [...] Depression Total Score: 21 012 10:33 AM SKIVER HAND documented as of this encounter Care Teams Sports Specialist Relationship Specialty Start Date End Date Elsewhere, Pcp PCP - General Internal Medicine 06/26/22 documented as of this encounter
--- OUTSIDE RECORDS SUMMARY | 2023-04-19 10:41 | XMS_ITS | Encounter Summary ---
Author Name Unknown Organization [facility] Address [address] [place] [address] Care Team Providers Care Rickshaw Driver Name Role Phone Elsewhere, Pcp Primary Care Provider Unavailabl e Encounter Details Date Type Department Care Team (Late st Contact Info) Description 04/18/2023 Clinical Communication Department of Urology in [place], [place] [address] [place] [phone] Luis Andrew M.D., M.P.H. [address] [place] [phone] Social History Tobacco Use Types Packs/Day Years Used Date Smoking Tobacco: Former Cigarettes 0.5 45 0 04/01/1968 - 03/31/2023 Smokeless Tobacco: Never Alcohol Use Standard Drinks/Week [...] your living situation today? I have a [facility] place to live 01/01/2023 Sex and Gender Information Value Date Recorded Sex Assigned at Female 01/01/2023 9:08 AM CDT Gender Identity Female 01/01/2023 9:08 AM CDT Sexual Orientation Straight 01/01/2023 9: 08 AM CDT documented as of this encounter Miscellaneous Notes * Telephone Encounter - Anamika Smith, R.N. - 04/19/2023 10:[address] Andrew, no additional testing or imaging required before surgery. Portal message sent to patient advising of this, surgical checklist provided. MACISTS * Telephone Encounter - Anamika Smith R.N. - 04/19/2023 9:13 AM PHARMACISTS Called the patient's , José Luis (auth on file), and they were agreeable to proceed with a pancreatic ESWL with Dr. Thornton at [facility] on May 02, 2023. He reports that she is no longer taking Xarelto and denies use of 325 mg aspirin, advised that she avoid this medications 7 days before surgery to help reduce the risk of bleeding. Informed them that I would discuss any additional preoperative testing with Dr. Andrew, once this is done I will place orders if necessary otherwise if no additional testing is required we will send patient a surgical checklist booklet and information via portal message. Advised José Luis that it is a same-day procedure with general anesthesia and she will require a designated shuttle truck driver after the procedure has been completed. The patient does have a procedure scheduled on April 29, fill was wondering if this is still required. Advised that I would send a message to Dr. Patterson to advise of our plan for ESWL so they can coordinate ERCP procedure following ours and ask that he address that appt if it's no longer required or needs to be rescheduled. José Luis verbalized understanding and no further questions or concerns at this time. MACISTS documented in this encounter Plan of Treatment Upcoming Encounters Date Type Department Care Team (Latest Contact Info) Description 04/29/2023 9:30 AM PHARMACISTS Appointment Division of Gastroenterology in [place], [place] [address] [place] [phone] Jose Roberto Patterson M.D. [address] [place] [phone] Shane Becerra M.D. [address] [place] [phone] Discharge Disposition: Home or Self Care 05/02/2023 Hospital Encounter Outpatient Surgery Unit in [place], [place] [address] [place] [phone] Luis Andrew M.D., M.P.H. [address] [place] [phone] Scheduled Procedures Name Priority Associated Diagnoses Date/Ti me LITHOTRIPSY EXTRACORPOREAL S HOCK WAVE UNILATERAL Stone Pancreatic Duct documented as of this encounter Visit Diagnoses Not on filedocumented in this encounter Additional Health Concerns Assessment Noted Time PHQ-9 Depression Total Score: 21 05/31/ 012 10:33 AM PHARMACISTS documented as of this encounter Care Teams Rickshaw Driver Relationship Specialty Start Date End Date Elsewhere, Pcp PCP - General Internal Medicine 06/26/22 documented as of this encounter
--- OUTSIDE RECORDS SUMMARY | 2023-04-19 10:41 | XMS_ITS ---
Author Name Unknown Organization [facility] Address [address] [place] [address] Care Team Providers Care Block Handler Name Role Phone Unavailable Unavailable Unavailable Surgery Details Not on file Complications Check Surgery Details section. Procedure Estimated Blood Loss Check Surgery Details section. Procedure Findings Check Surgery Details section. Procedure Specimens Taken Check Surgery Details section.
--- OUTSIDE RECORDS SUMMARY | 2023-04-19 10:41 | XMS_ITS | Referral Summary ---
Author Name Unknown Organization [facility] Address [address] [place] [id number] Care Team Providers Care Sweet Potato Disintegrator Name Role Phone Elsewhere, Pcp Primary Care Provider Unavailabl e Source Comments Patient records contain information from all sites at [facility]. For routine questions regarding patient records, call [phone] during business hours, M-F 8:00 AM - 5:00 PM Central Time. Record requests for emergency care only can be directed to [phone] at any time.[facility] Encounters Date Type Department Care Team Description 04/18/2023 Clinical Communication Department of Urology in [place], [place] [address] [place] [phone] Luis Andrew M.D., M.P.H. 04/03/2023 1:08 AM LINING STRAP CLOSER - 04/03/2023 3:18 AM [facility] [id number] [phone] Madhav Basurto APRN, C.N.P., D.N.P. Pancreatitis Chronic Recurrent (HCC) (Primary Dx); Abdominal Pain; Constipation Slow Transit Discharge Disposition: Home or Self Care 04/02/2023 Clinical Communication Division of Gastroenterology in [place], [place] [address] [place] [phone] Jose Roberto Hays M.D. 02/19/2023 Clinical Communication Division of Gastroenterology in [place], [place] [address] [place] [address] Jose Roberto Hays M.D. 02/19/2023 5:10 AM LINING STRAP CLOSER - 02/19/2023 6:50 AM LINING STRAP CLOSER Surgery [facility] [address] [place] [address] Luis Andrew M.D., M.P.H. Not Performed Pancreatic LITHOTRIPSY EXTRACORPOREAL SHOCK WAVE UNILATERAL, possible multiple trips to operating room in 90 days, proceed as indicated. 02/19/2023 5:47 AM LINING STRAP CLOSER - 02/19/2023 9:13 AM LINING STRAP CLOSER Hospital Encounter [facility] RO 02 4 AM ADMIT [address] [place] [address] Luis Andrew M.D., M.P.H. Discharge Disposition: Home or Self Care 02/11/2023 Clinical Communication Department of Nicotine Dependence, [facility], in [place], [place] [address] [place] [address] Froy Can MCarlosA. Nicotine Dependence from Last 3 Months Allergies [...] your living situation today? I have a [facility] place to live 01/01/2023 Sex and Gender Information Value Date Recorded Sex Assigned at Female 01/01/2023 9:08 AM CDT Gender Identity Female 01/01/2023 9:08 AM CDT Sexual Orientation Straight 01/01/2023 9: 08 AM CDT Last Filed Vital Signs Vital Sign Reading Time Taken Comments Blood Pressure 123/75 04/03/2023 3:00 AM LINING STRAP CLOSER Pulse 80 04/03/2023 3:00 AM LINING STRAP CLOSER Temperature 37.8 ??C (100 ??F) 04/03/2023 1:55 AM LINING STRAP CLOSER Respiratory Rate 18 04/03/2023 3:00 AM LINING STRAP CLOSER Oxygen Saturation 93% 04/03/2023 3:00 AM LINING STRAP CLOSER Inhaled Oxygen Concentration - - Weight 57.7 kg (127 lb 3.3 oz) 04/03/2023 1:15 A M LINING STRAP CLOSER Height 158.5 cm (5' 2.4) 02/19/2023 6:31 AM LINING STRAP CLOSER Body Mass Index 22.97 02/19/2023 6:31 AM LINING STRAP CLOSER Plan of Treatment Upcoming Encounters Date Type Department Care Team (Latest Contact Info) Description 04/29/2023 9:30 AM LINING STRAP CLOSER Appointment Division of Gastroenterology in [place], [place] [address] [place] [phone] Jose Robetro Patterson M.D. [address] [place] [phone] Shane Becerra M.D. [address] [place] [phone] Discharge Disposition: Home or Self Care 05/02/2023 Hospital Encounter Outpatient Surgery Unit in [place], [place] [address] [place] [phone] Luis Andrew M.D., M.P.H. [address] [place] [phone] Scheduled Procedures Name Priority Associated Diagnoses Date/Ti me LITHOTRIPSY EXTRACORPOREAL S HOCK WAVE UNILATERAL Stone Pancreatic Duct Procedures Procedure Name Priority Date/Time Associated Diagnosis Comments CT ABDOMEN PELVIS WITH IV CONTRAST RAD - Semiurgent (Fast; most ED patients; some inpatients) 04/03/2023 2:[address] HEAD WITHOUT IV CONTRAST RAD - Semiurgent (Fast; most ED patients; some inpatients) 04/03/2023 2:30 AM LINING STRAP CLOSER LIPASE, S/P STAT 04/03/2023 1:41 AM LINING STRAP CLOSER LACTATE, B/P STAT 04/03/2023 1:41 AM LINING STRAP CLOSER C-REACTIVE PROTEIN (CRP), S/P STAT 04/03/2023 1:41 AM LINING STRAP CLOSER COMPREHENSIVE METABOLIC PANEL, S/P STAT 04/03/2023 1:41 AM LINING STRAP CLOSER CBC WITH DIFFERENTIAL, B STAT 04/03/2023 1:41 AM LINING STRAP CLOSER GLUCOSE POCT, B Routine 02/19/2023 6:17 AM LINING STRAP CLOSER HEMOGLOBIN A1C, B Routine 02/19/2023 6:1 7 AM LINING STRAP CLOSER from Last 3 Months Results * CT Abdomen Pelvis with IV Contrast (04/03/2023 2:34 AM LINING STRAP CLOSER) Anatomical Region Laterality Modality Abdomen, Pelvis, Abdominal R ST LOS, Abdominal ARZ LOS, Abdominal FLA LOS N/A Computed Tomography 04/03/2023 2:24 AM LINING STRAP CLOSER Impressions 04/03/2023 2:53 AM LINING STRAP CLOSER 1. Sequela of chronic pancreatitis without imaging findings of acute pancreatitis. 2. Large colonic stool burden could indicate constipation. Narrative 04/03/2023 2:53 AM LINING STRAP CLOSER EXAM: CT ABDOMEN PELVIS WITH IV CONTRAST [...] colonic stool burden could indicate constipation. Madhav Basurot APRN, C.N.P., D.N.P. G CT PROCEDURES * CT Head without IV Contrast (04/03/2023 2:30 AM LINING STRAP CLOSER) Anatomical Region Laterality Modality Head, Neuroradiology RST LOS , Neuroradiology ARZ LOS, Neuroradiology FLA LOS N/A Computed Tomography 04/03/2023 2:18 AM LINING STRAP CLOSER Impressions 04/03/2023 2:37 AM LINING STRAP CLOSER 1. ??Negative for acute intracranial abnormality. 2. ??Stable patchy white matter hypoattenuation compatible with known demyelinating disease. Narrative 04/03/2023 2:37 AM LINING STRAP CLOSER EXAM: CT HEAD WITHOUT IV CONTRAST COMPARISON: [...] white matter hypoattenuation compatible with knowndemyelinating disease. Sandra Tan APRNNCarlosP., D.N.P. IMG CT PROCEDURES * (ABNORMAL) CBC with Differential, Blood (04/03/2023 1:41 AM LINING STRAP CLOSER) Pathologist [facility] Hemoglobin 12.0 11.6 - 15.0 g/dL 04/03/2023 2:28 AM LINING STRAP CLOSER CNFL Hematocrit 35.4(L) 35.5 - 44.9 % 04/03/2023 2:28 AM LINING STRAP CLOSER CNFL Erythrocytes 3.75(L) 3.92 - 5.13 x10(12)/L 04/03/2023 2:28 AM LINING STRAP CLOSER CNFL MCV 94.4 78.2 - 97.9 fL 04/03/2023 2:28 AM LINING STRAP CLOSER CNFL RBC Distrib Width 12.2 12.2 - 16.1 % 04/03/2023 2:28 AM LINING STRAP CLOSER CNFL Platelet Count 212 157 - 371 x10(9)/L 04/03/2023 2:28 AM LINING STRAP CLOSER CNFL Leukocytes 4.7 3.4 - 9.6 x10(9)/L 04/03/2023 2:28 AM LINING STRAP CLOSER CNFL Neutrophils 1.91 1.56 - 6.45 x10(9)/L 04/03/2023 2:28 AM LINING STRAP CLOSER CNFL Lymphocytes 1.81 0.95 - 3.07 x10(9)/L 04/03/2023 2:28 AM LINING STRAP CLOSER CNFL Monocytes 0.85(H) 0.26 - 0.81 x10(9)/L 04/03/2023 2:28 AM LINING STRAP CLOSER CNFL Eosinophils 0.15 0.03 - 0.48 x10(9)/L 04/03/2023 2:28 AM LINING STRAP CLOSER CNFL Basophils <0.04 0.01 - 0.08 x10(9)/L 04/03/2023 2:28 AM LINING STRAP CLOSER CNFL Blood (Blood, Venous) 04/03/2023 1:41 AM LINING STRAP CLOSER 04/03/2023 2:03 AM LINING STRAP CLOSER Sandra Tan APRNN.P., D.N.P. LAB BLOOD ADD-ON [address] [address], [address] [address] * CRP (C-Reactive Protein) (04/03/2023 1:41 AM LINING STRAP CLOSER) C-Reactive Protein (CRP), P 3.5 <5.0 mg/L 04/03/2023 2:24 AM LINING STRAP CLOSER CNFL Blood (Blood, Venous) 04/03/2023 1:41 AM LINING STRAP CLOSER 04/03/2023 2:03 AM LINING STRAP CLOSER Sandra Tan APRNN.P., D.N.P. LAB BLOOD ADD-ON Performing Organization Address City/[facility]/ZIP Co de Phone Number [address] [address], [address] [address] * (ABNORMAL) Lipase (04/03/2023 1:41 AM LINING STRAP CLOSER) Lipase, P 9(L) 13 - 60 U/L 04/03/2023 2: 24 AM LINING STRAP CLOSER CNFL Blood (Blood, Venous) 04/03/2023 1:41 AM LINING STRAP CLOSER 04/03/2023 2:03 AM LINING STRAP CLOSER Mona Tan APRN.N.P., D.N.P. LAB BLOOD ADD-ON [address] [address], [address] [address] * Lactate (04/03/2023 1:41 AM LINING STRAP CLOSER) Lactate, P 1.0 0.5 - 2.2 mmol/L 04/03/2023 2:22 AM LINING STRAP CLOSER CNFL Blood (Blood, Venous) 04/03/2023 1:41 AM LINING STRAP CLOSER 04/03/2023 2:03 AM LINING STRAP CLOSER Madhav Basurto APRN, C.N.P., D.N.P. LAB BLOOD NON ADD-ON [facility] [address] [place] [phone], [facility] CNFL [place] [address] * (ABNORMAL) Comprehensive Metabolic Panel (04/03/2023 1:41 AM LINING STRAP CLOSER) Potassium, P 3.9 3.6 - 5.2 mmol/L 04/03/2023 2:24 AM LINING STRAP CLOSER CNFL Sodium, P 134(L) 135 - 145 mmol/L 04/03/2023 2:24 AM LINING STRAP CLOSER CNFL Chloride, P 99 98 - 107 mmol/L 04/03/2023 2:24 AM LINING STRAP CLOSER CNFL Bicarbonate, P 26 22 - 29 mmol/L 04/03/2023 2:24 AM LINING STRAP CLOSER CNFL Anion Gap, P 9 7 - 15 04/03/2023 2:24 AM LINING STRAP CLOSER CNFL BUN (Blood Urea Nitrogen), P 13 6 - 21 mg/dL 04/03/2023 2:24 AM LINING STRAP CLOSER CNFL Creatinine 0.89 0.59 - 1.04 mg/dL 04/03/2023 2:24 AM LINING STRAP CLOSER CNFL Estimated GFR (eGFR) 71 >=60 mL/min/BS A 04/03/2023 2:24 AM LINING STRAP CLOSER CNFL Comment: Estimated GFR calculated using the 2020 CKD_EPI creatinine equation. Calcium, Total, P 9.0 8.8 - 10.2 mg/dL 04/03/2023 2:24 AM LINING STRAP CLOSER CNFL Glucose, P 188(H) 70 - 140 mg/dL 04/03/2023 2:24 AM LINING STRAP CLOSER CNFL Protein, Total, P 6.2(L) 6.3 - 7.9 g/dL 04/03/2023 2:24 AM LINING STRAP CLOSER CNFL Albumin, P 3.8 3.5 - 5.0 g/dL 04/03/2023 2:24 AM LINING STRAP CLOSER CNFL Aspartate Aminotransferase (AST), P 27 8 - 43 U/L 04/03/2023 2:24 AM LINING STRAP CLOSER CNFL Alkaline Phosphatase, P 91 35 - 104 U/L 04/03/2023 2:24 AM LINING STRAP CLOSER CNFL Alanine Aminotransferase (ALT), P 30 7 - 45 U/L 04/03/2023 2:24 AM LINING STRAP CLOSER CNFL Bilirubin, Total, P <0.2 0.0 - 1.2 mg/dL 04/03/2023 2:24 AM LINING STRAP CLOSER CNFL Blood (Blood, Venous) 04/03/2023 1:41 AM LINING STRAP CLOSER 04/03/2023 2:03 AM LINING STRAP CLOSER Madhav Basurto APRN, C.N.P., D.N.P. LAB [facility] [address] [place] [phone], [place] CNFL [facility] in [address] [address] * Glucose, POCT (02/19/2023 6:17 AM LINING STRAP CLOSER) Pathologist [facility] Glucose, POCT, B 82 70 - 140 mg/dL 02/19/2023 6:38 AM LINING STRAP CLOSER PCDE Site Capillary 02/19/2023 6:38 AM LINING STRAP CLOSER PCDE Blood 02/19/2023 6:17 AM LINING STRAP CLOSER 02/19/2023 6:38 AM LINING STRAP CLOSER Unknown Provider LAB POCT ORDERABLES- MANUAL POC [facility] [address] [place] [address], [place] PCDE [facility] POC [address] [place] [address] * (ABNORMAL) Hemoglobin A1c (02/19/2023 6:17 AM LINING STRAP CLOSER) Pathologist [facility] Hemoglobin A1c, B 7.8(H) 4.0 - 5.6 % 02/19/2023 7:11 AM LINING STRAP CLOSER DTL Comment: Hemoglobin A1c values greater than or equal to 6.5 percent are diagnostic for diabetes mellitus. ??Diagnosis should be confirmed by repeat testing. ??In diabetic patients, HbA1c goals should be discussed with healthcare provider. Blood (Blood, Venous) 02/19/2023 6:17 AM LINING STRAP CLOSER 02/19/2023 6:33 AM LINING STRAP CLOSER Luis Andrew M.D., M.P.H. LAB BLOOD ADD-ON ED [facility] [address] [place] [address], [place] DTL [facility] [address] [place] [address] from Last 3 Months Advance Directives For more information, please contact: [phone] Documents on File Type Date Recorded Patient Galvanizer Expl anation Advance Directives 09/17/2011 12:00 AM Leg acy document. See document viewer. Latest Code Status on File Code Status Date Activated Date Inactivated Comments Full Code 10/23/2022 2:51 PM 10/25/2022 1:26 AM Question Answer Comments Full Code: Discussed Care Teams Sweet Potato Disintegrator Relationship Specialty Start Date End Date Elsewhere, Pcp PCP - General Internal Medicine 06/26/22
--- OUTSIDE RECORDS SUMMARY | 2023-04-19 10:41 | XMS_ITS | Encounter Summary ---
Author Name Unknown Organization [facility] Address [address] [place] [address] Care Team Providers Care Potato Grader Name Role Phone Elsewhere, Pcp Primary Care Provider Unavailabl e Encounter Details Date Type Department Care Team (Latest Contact Info) Description 02/19/2023 Clinical Communication Division of Gastroenterology in [place], [place] [address] [place] [phone] Jose Roberto Patterson M.D. [address] [place] [phone] Social History Tobacco Use Types Packs/Day Years [...] your living situation today? I have a [facility] place to live 01/01/2023 Sex and Gender Information Value Date Recorded Sex Assigned at Female 01/01/2023 9:08 AM CDT Gender Identity Female 01/01/2023 9:08 AM CDT Sexual Orientation Straight 01/01/2023 9: 08 AM CDT documented as of this encounter Miscellaneous Notes * Telephone Encounter - Jose Roberto Patterson M.D. - 02/19/2023 8:57 AM DIGITAL IMAGING SPECIALIST Patient was unable to undergo ESWL today [...] once I have seen her in clinic TAL IMAGING SPECIALIST documented in this encounter Plan of Treatment Upcoming Encounters Date Type Department Care Team (Latest Contact Info) Description 04/29/2023 9:30 AM DIGITAL IMAGING SPECIALIST Appointment Division of Gastroenterology in [place], [place] [address] [place] [phone] Jose Roberto Patterson M.D. [address] [place] [phone] Shane Becerra M.D. [address] [place] [phone] Discharge Disposition: Home or Self Care 05/02/2023 Hospital Encounter Outpatient Surgery Unit in [place], [place] [address] [place] [phone] Luis Andrew M.D., M.P.H. [address] [place] [phone] Scheduled Procedures Name Priority Associated Diagnoses Date/Ti me LITHOTRIPSY EXTRACORPOREAL S HOCK WAVE UNILATERAL Stone Pancreatic Duct documented as of this encounter Visit Diagnoses Diagnosis Pancreatitis Chronic (HCC)- Primary documented in this encounter Additional Health Concerns Assessment Noted Time PHQ-9 Depression Total Score: 21 012 10:33 AM DIGITAL IMAGING SPECIALIST documented as of this encounter Care Teams Potato Grader Relationship Specialty Start Date End Date Elsewhere, Pcp PCP - General Internal Medicine 06/26/22 documented as of this encounter
--- OUTSIDE RECORDS SUMMARY | 2023-04-19 10:41 | XMS_ITS | Encounter Summary ---
Author Name Unknown Organization [facility] Address [address] [place] [address] Care Team Providers Care Sexton Helper Name Role Phone Elsewhere, Pcp Primary Care Provider Unavailabl e Reason for Visit * Reason Comments Abdominal Pain Encounter Details Date Type Department Care Team (Late st Contact Info) Description 04/03/2023 1:08 AM GAS PROCESSING PLANT OPERATOR - 04/03/2023 3:18 AM GAS PROCESSING PLANT OPERATOR Emergency [facility] [address] [place] [phone] Madhav Basurto APRN, C.N.P., D.N.P. [address] [place] [address] Pancreatitis Chronic Recurrent (HCC) (Primary [...] your living situation today? I have a [facility] place to live 01/01/2023 Sex and Gender Information Value Date Recorded Sex Assigned at Female 01/01/2023 9:08 AM CDT Gender Identity Female 01/01/2023 9:08 AM CDT Sexual Orientation Straight 01/01/2023 9: 08 AM CDT documented as of this encounter Last Filed Vital Signs Vital Sign Reading Time Taken Comments Blood Pressure 123/75 04/03/2023 3:00 AM GAS PROCESSING PLANT OPERATOR Pulse 80 04/03/2023 3:00 AM GAS PROCESSING PLANT OPERATOR Temperature 37.8 ??C (100 ??F) 04/03/2023 1:55 AM GAS PROCESSING PLANT OPERATOR Respiratory Rate 18 04/03/2023 3:00 AM GAS PROCESSING PLANT OPERATOR Oxygen Saturation 93% 04/03/2023 3:00 AM GAS PROCESSING PLANT OPERATOR Inhaled Oxygen Concentration - - Weight 57.7 kg (127 lb 3.3 oz) 04/03/2023 1:15 A M GAS PROCESSING PLANT OPERATOR Height - - Body Mass Index 22.97 02/19/2023 6:31 AM GAS PROCESSING PLANT OPERATOR documented in this encounter Discharge Instructions * Discharge Instructions* Madhav Basurto APRN, C.N.P., D.N.P. - 04/03/2023 3:02 AM GAS PROCESSING PLANT OPERATOR Follow-up with GI as scheduled at the end of the month, sooner if you have continued pain/problems.Pain medication as per your home routine. Return to the emergency department if symptoms get worse. Thank you for utilizing [facility] for your care! PROCESSING PLANT OPERATOR * Attachments The following attachments cannot be sent through Care Everywhere. * Chronic Pancreatitis (Barbadian) * Abdominal Pain Adult [id number] (Barbadian) * Constipation Adult (Barbadian) documented in this encounter Medications at Time [...] or lacerations Brittany Yusuf R.N. 04/03/23 0130 PROCESSING PLANT OPERATOR * Madhav Basurto APRN, C.N.P., D.N.P. - [...] yesterday. 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 Patient had nausea vomiting yesterday. None today. Patient states she took 2 oxycodone at 10:00 p.m. with norelief of her symptoms. Patient is scheduled for a ERCP on 04/29/2023 with GI in [place]. Patient denies any fever, chills, sweats. Endorses nausea vomiting. Endorses abdominal pain. Denies any other constitutional symptoms. Patient also states she fell yesterday, did hit her left face. There has no bruising appreciated. Patient is anticoagulated. She denies LOC. 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 She follows in [place]. Patient denies any fever, chills, sweats. 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 Evaluation and management will include: CBC with [...] for Follow-ups Elsewhere, Pcp Specialty: Internal Medicine, Project Manager Process Development, Pediatrics, Women's Health, Family Medicine Relationship: PCP - General Next Steps: Follow up in 1 week(s) Madhav Basurto DNP, NUT ROASTER, VENEER PULLER-C, AGACNP-BC, ENP-C Emergency Medicine Madhav Basurto APRN, C.N.P., D.N.P. 04/03/23 0308 Madhav Basurto APRN, C.N.P., D.N.P. 04/03/23 0312 PROCESSING PLANT OPERATOR documented in this encounter Plan of Treatment Upcoming Encounters Date Type Department Care Team (Latest Contact Info) Description 04/29/2023 9:30 AM GAS PROCESSING PLANT OPERATOR Appointment Division of Gastroenterology in [place], [place] [address] [place] [phone] Jose Roberto Patterson M.D. [address] [place] [phone] Shaen Becerra M.D. [address] [place] [phone] Discharge Disposition: Home or Self Care 05/02/2023 Hospital Encounter Outpatient Surgery Unit in [place], [place] [address] [place] [phone] Luis Andrew M.D., M.P.H. [address] [place] [phone] Scheduled Procedures Name Priority Associated Diagnoses Date/Ti me LITHOTRIPSY EXTRACORPOREAL S HOCK WAVE UNILATERAL Stone Pancreatic Duct documented as of this encounter Procedures Procedure Name Priority Date/Time Associated Diagnosis Comments CT ABDOMEN PELVIS WITH IV CONTRAST RAD - Semiurgent (Fast; most ED patients; some inpatients) 04/03/2023 2:34 AM GAS PROCESSING PLANT OPERATOR CT HEAD WITHOUT IV CONTRAST RAD - Semiurgent (Fast; most ED patients; some inpatients) 04/03/2023 2:30 AM GAS PROCESSING PLANT OPERATOR CBC WITH DIFFERENTIAL, B STAT 04/03/2023 1:41 AM GAS PROCESSING PLANT OPERATOR C-REACTIVE PROTEIN (CRP), S/P STAT 04/03/2023 1:41 AM GAS PROCESSING PLANT OPERATOR LIPASE, S/P STAT 04/03/2023 1:41 AM GAS PROCESSING PLANT OPERATOR LACTATE, B/P STAT 04/03/2023 1:41 AM GAS PROCESSING PLANT OPERATOR COMPREHENSIVE METABOLIC PANEL, S/P STAT 04/03/2023 1:41 AM GAS PROCESSING PLANT OPERATOR documented in this encounter Results * CT Abdomen Pelvis with IV Contrast (04/03/2023 2:34 AM GAS PROCESSING PLANT OPERATOR) Anatomical Region Laterality Modality Abdomen, Pelvis, Abdominal R ST LOS, Abdominal ARZ LOS, Abdominal FLA LOS N/A Computed Tomography 04/03/2023 2:24 AM GAS PROCESSING PLANT OPERATOR Impressions 04/03/2023 2:53 AM GAS PROCESSING PLANT OPERATOR 1. Sequela of chronic pancreatitis without imaging findings of acute pancreatitis. 2. Large colonic stool burden could indicate constipation. Narrative 04/03/2023 2:53 AM GAS PROCESSING PLANT OPERATOR EXAM: CT ABDOMEN PELVIS WITH IV [...] Head without IV Contrast (04/03/2023 2:30 AM GAS PROCESSING PLANT OPERATOR) Anatomical Region Laterality Modality Head, Neuroradiology RST LOS , Neuroradiology ARZ LOS, Neuroradiology FLA LOS N/A Computed Tomography 04/03/2023 2:18 AM GAS PROCESSING PLANT OPERATOR Impressions 04/03/2023 2:37 AM GAS PROCESSING PLANT OPERATOR 1. ??Negative for acute intracranial abnormality. 2. ??Stable patchy white matter hypoattenuation compatible with known demyelinating disease. Narrative 04/03/2023 2:37 AM GAS PROCESSING PLANT OPERATOR EXAM: CT HEAD WITHOUT IV CONTRAST [...] PROCEDURES * (ABNORMAL) Lipase (04/03/2023 1:41 AM GAS PROCESSING PLANT OPERATOR) Lipase, P 9(L) 13 - 60 U/L 04/03/2023 2: 24 AM GAS PROCESSING PLANT OPERATOR CNFL Blood (Blood, Venous) 04/03/2023 1:41 AM GAS PROCESSING PLANT OPERATOR 04/03/2023 2:03 AM GAS PROCESSING PLANT OPERATOR Mona Tan APRN.N.P., D.N.P. LAB BLOOD ADD-ON Performing Organization Address City/[facility] [place] [address], [place] [address] * Lactate (04/03/2023 1:41 AM GAS PROCESSING PLANT OPERATOR) Lactate, P 1.0 0.5 - 2.2 mmol/L 04/03/2023 2:22 AM GAS PROCESSING PLANT OPERATOR [facility] Blood (Blood, Venous) 04/03/2023 1:41 AM GAS PROCESSING PLANT OPERATOR 04/03/2023 2:03 AM GAS PROCESSING PLANT OPERATOR Mona Tan APRN.N.P., D.N.P. LAB BLOOD NON ADD-ON Performing Organization Address [facility] [place] [address], [place] [address] * CRP (C-Reactive Protein) (04/03/2023 1:41 AM GAS PROCESSING PLANT OPERATOR) C-Reactive Protein (CRP), P 3.5 <5.0 mg/L 04/03/2023 2:24 AM GAS PROCESSING PLANT OPERATOR CNFL Blood (Blood, Venous) 04/03/2023 1:41 AM GAS PROCESSING PLANT OPERATOR 04/03/2023 2:03 AM GAS PROCESSING PLANT OPERATOR Mona Tan APRN.N.P., D.N.P. LAB BLOOD ADD-ON [facility] [address] [place] [phone], [facility] CNFL [facility] in [address] [address] * (ABNORMAL) Comprehensive Metabolic Panel (04/03/2023 1:41 AM GAS PROCESSING PLANT OPERATOR) Potassium, P 3.9 3.6 - 5.2 mmol/L 04/03/2023 2:24 AM GAS PROCESSING PLANT OPERATOR CNFL Sodium, P 134(L) 135 - 145 mmol/L 04/03/2023 2:24 AM GAS PROCESSING PLANT OPERATOR CNFL Chloride, P 99 98 - 107 mmol/L 04/03/2023 2:24 AM GAS PROCESSING PLANT OPERATOR CNFL Bicarbonate, P 26 22 - 29 mmol/L 04/03/2023 2:24 AM GAS PROCESSING PLANT OPERATOR CNFL Anion Gap, P 9 7 - 15 04/03/2023 2:24 AM GAS PROCESSING PLANT OPERATOR CNFL BUN (Blood Urea Nitrogen), P 13 6 - 21 mg/dL 04/03/2023 2:24 AM GAS PROCESSING PLANT OPERATOR CNFL Creatinine 0.89 0.59 - 1.04 mg/dL 04/03/2023 2:24 AM GAS PROCESSING PLANT OPERATOR CNFL Estimated GFR (eGFR) 71 >=60 mL/min/BS A 04/03/2023 2:24 AM GAS PROCESSING PLANT OPERATOR CNFL Comment: Estimated GFR calculated using the 2020 CKD_EPI creatinine equation. Calcium, Total, P 9.0 8.8 - 10.2 mg/dL 04/03/2023 2:24 AM GAS PROCESSING PLANT OPERATOR CNFL Glucose, P 188(H) 70 - 140 mg/dL 04/03/2023 2:24 AM GAS PROCESSING PLANT OPERATOR CNFL Protein, Total, P 6.2(L) 6.3 - 7.9 g/dL 04/03/2023 2:24 AM GAS PROCESSING PLANT OPERATOR CNFL Albumin, P 3.8 3.5 - 5.0 g/dL 04/03/2023 2:24 AM GAS PROCESSING PLANT OPERATOR CNFL Aspartate Aminotransferase (AST), P 27 8 - 43 U/L 04/03/2023 2:24 AM GAS PROCESSING PLANT OPERATOR CNFL Alkaline Phosphatase, P 91 35 - 104 U/L 04/03/2023 2:24 AM GAS PROCESSING PLANT OPERATOR CNFL Alanine Aminotransferase (ALT), P 30 7 - 45 U/L 04/03/2023 2:24 AM GAS PROCESSING PLANT OPERATOR CNFL Bilirubin, Total, P <0.2 0.0 - 1.2 mg/dL 04/03/2023 2:24 AM GAS PROCESSING PLANT OPERATOR CNFL Blood (Blood, Venous) 04/03/2023 1:41 AM GAS PROCESSING PLANT OPERATOR 04/03/2023 2:03 AM GAS PROCESSING PLANT OPERATOR Madhav Basurto APRN, C.N.P., D.N.P. LAB BLOOD ADD-ON [facility] [address] [place] [phone], [facility] CNFL [facility] [place] [address] * (ABNORMAL) CBC with Differential, Blood (04/03/2023 1:41 AM GAS PROCESSING PLANT OPERATOR) Hemoglobin 12.0 11.6 - 15.0 g/dL 04/03/2023 2:28 AM GAS PROCESSING PLANT OPERATOR CNFL Hematocrit 35.4(L) 35.5 - 44.9 % 04/03/2023 2:28 AM GAS PROCESSING PLANT OPERATOR CNFL Erythrocytes 3.75(L) 3.92 - 5.13 x10(12)/L 04/03/2023 2:28 AM GAS PROCESSING PLANT OPERATOR CNFL MCV 94.4 78.2 - 97.9 fL 04/03/2023 2:28 AM GAS PROCESSING PLANT OPERATOR CNFL RBC Distrib Width 12.2 12.2 - 16.1 % 04/03/2023 2:28 AM GAS PROCESSING PLANT OPERATOR CNFL Platelet Count 212 157 - 371 x10(9)/L 04/03/2023 2:28 AM GAS PROCESSING PLANT OPERATOR CNFL Leukocytes 4.7 3.4 - 9.6 x10(9)/L 04/03/2023 2:28 AM GAS PROCESSING PLANT OPERATOR CNFL Neutrophils 1.91 1.56 - 6.45 x10(9)/L 04/03/2023 2:28 AM GAS PROCESSING PLANT OPERATOR CNFL Lymphocytes 1.81 0.95 - 3.07 x10(9)/L 04/03/2023 2:28 AM GAS PROCESSING PLANT OPERATOR CNFL Monocytes 0.85(H) 0.26 - 0.81 x10(9)/L 04/03/2023 2:28 AM GAS PROCESSING PLANT OPERATOR CNFL Eosinophils 0.15 0.03 - 0.48 x10(9)/L 04/03/2023 2:28 AM GAS PROCESSING PLANT OPERATOR CNFL Basophils <0.04 0.01 - 0.08 x10(9)/L 04/03/2023 2:28 AM GAS PROCESSING PLANT OPERATOR CNFL Blood (Blood, Venous) 04/03/2023 1:41 AM GAS PROCESSING PLANT OPERATOR 04/03/2023 2:03 AM GAS PROCESSING PLANT OPERATOR Madhav Basurto APRN, C.N.P., D.N.P. LAB BLOOD ADD-ON Performing Organization Address City/State/[facility] Co de Phone Number [facility] [address] [place] [address], [facility] CNFL [facility] in [address] [address] documented in this encounter Visit Diagnoses Diagnosis Pancreatitis Chronic Recurrent (HCC)- Primary Abdominal Pain Constipation Slow Transit documented in this encounter Administered Medications Inactive Administered Medications - up to 3 most recent administrations Medication Order MAR Action Action Date Dose Rate Site HYDROmorphone injection 0.5 mg (DILAUDID) 0.5 mg, intravenous, Once, On Sat04/03/23 at 0301, For 1 dose Given 04/03/2023 3:07 AM GAS PROCESSING PLANT OPERATOR 0.5 mg HYDROmorphone injection 1 mg (DILAUDID) 1 mg, intravenous, Once, On Sat04/03/23 at 0130, For 1 dose Given 04/03/2023 1:47 AM GAS PROCESSING PLANT OPERATOR 1 mg iohexoL 300 mg iodine/mL solution 87 mL (OMNIPAQUE) 87 mL, intravenous, Once in imaging, contrast, Starting on Sat04/03/23 at 0146, For 1 dose Given 04/03/2023 2:29 AM GAS PROCESSING PLANT OPERATOR 87 mL NaCl 0.9 % bolus 1,000 mL 1,000 mL, intravenous, at 1,000 mL/hr, Administer over 1 Hours, Once, On Sat04/03/23 at 0159, For 1 dose New Bag 04/03/2023 2:27 AM GAS PROCESSING PLANT OPERATOR 1,000 mL 1000 mL/hr ondansetron (PF) injection 4 mg (ZOFRAN) 4 mg, intravenous, Once, On 1/3/24 at 0130, For 1 dose Given 04/03/2023 1:48 AM GAS PROCESSING PLANT OPERATOR 4 mg sodium chloride 0.9 % flush 72 mL 72 mL, intravenous, Once, On Sat04/03/23 at 0151, For 1 dose Given 04/03/2023 2:30 AM GAS PROCESSING PLANT OPERATOR 72 mL sodium chloride 0.9 % injection 10 mL 10 mL, intravenous, Once, On Sat04/03/23 at 0151, For 1 dose Given 04/03/2023 2:30 AM GAS PROCESSING PLANT OPERATOR 10 mL documented in this encounter Active and Recently Administered Medications Times are shown in GAS PROCESSING PLANT OPERATOR. Scheduled Medication Order 04/01/2023 04/02/2023 04/03/2023 HYDROmorphone injection 0.5 mg (DILAUDID) (COMPLETED) 0.5 mg, intravenous, Once, On Sat04/03/23 at 0301, For 1 dose 0307 (Given - Provid er: Steve Yusuf R.N.) [...] 1 dose 0230 (Given - Provid er: Shavon Mora.TCarlos(R)(CT), R.T.(R)) sodium chloride 0.9 % injection 10 mL (COMPLETED) 10 mL, intravenous, Once, On Sat04/03/23 at 0151, For 1 dose 0230 (Given - Provid er: Dany Mora(Shavon)(CT), R.TCarlos(R)) PRN Medication Order 04/01/2023 04/02/2023 04/03/2023 iohexoL 300 mg iodine/mL solution 87 mL (OMNIPAQUE) (COMPLETED) 87 mL, intravenous, Once in imaging, contrast, Starting on 04/03/23 at 0146, For 1 dose 0229 (Given - Provid er: Dany Mora(Shavon)(CT), R.T.(R)) documented in this encounter Additional Health Concerns Assessment Noted Time PHQ-9 Depression Total Score: 21 012 10:33 AM GAS PROCESSING PLANT OPERATOR documented as of this encounter Care Teams Sexton Helper Relationship Specialty Start Date End Date Elsewhere, Pcp PCP - General Internal Medicine 06/26/22 documented as of this encounter
--- OUTSIDE RECORDS SUMMARY | 2023-04-19 10:42 | XMS_ITS | Encounter Summary ---
Author Name Unknown Organization [facility] Address [address] [place] [address] Care Team Providers Care Combination Window Installer Name Role Phone Elsewhere, Pcp Primary Care Provider Unavailabl e Encounter Details Date Type Department Care Team (Late st Contact Info) Description 01/02/2023 Orders Only Division of Community Internal Medicine at [address] [phone] Giorgio Ward M.D. [address] [place] [phone] Social History Tobacco Use Types Packs/Day Years [...] your living situation today? I have a [facility] place to live 01/01/2023 Sex and Gender Information Value Date Recorded Sex Assigned at Female 01/01/2023 9:08 AM CDT Gender Identity Female 01/01/2023 9:08 AM CDT Sexual Orientation Straight 01/01/2023 9: 08 AM CDT documented as of this encounter Plan of Treatment Upcoming Encounters Date Type Department Care Team (Latest Contact Info) Description 04/29/2023 9:30 AM COMPRESSOR OPERATOR Appointment Division of Gastroenterology in [place], [place] [address] [place] [phone] Jose Roberto Patterson M.D. [address] [place] [phone] Shane Becerra M.D. [address] [place] [phone] Discharge Disposition: Home or Self Care 05/02/2023 Hospital Encounter Outpatient Surgery Unit in [place], [place] [address] [place] [address] Luis Andrew M.D., M.P.H. [address] [place] [phone] Scheduled Procedures Name Priority Associated Diagnoses Date/Ti me LITHOTRIPSY EXTRACORPOREAL S HOCK WAVE UNILATERAL Stone Pancreatic Duct documented as of this encounter Visit Diagnoses Not on filedocumented in this encounter Additional Health Concerns Assessment Noted Time PHQ-9 Depression Total Score: 21 05/31/ 012 10:33 AM COMPRESSOR OPERATOR documented as of this encounter Care Teams Combination Window Installer Relationship Specialty Start Date End Date Elsewhere, Pcp PCP - General Internal Medicine 06/26/22 documented as of this encounter
--- OUTSIDE RECORDS SUMMARY | 2023-04-19 10:42 | XMS_ITS | Encounter Summary ---
Author Name Unknown Organization [facility] Address [address] [place] [address] Care Team Providers Care Line Production Cook Name Role Phone Elsewhere, Pcp Primary Care Provider Unavailabl e Reason for Visit * Reason Onset Date Comments Nicotine Dependence 02/11/2023 Encounter Details Date Type Department Care Team (Latest Contact Info) Description 02/11/2023 Clinical Communication Department of Nicotine Dependence, [facility], in [place], [place] [address] [place] [phone] Froy Can M.A. Nicotine Dependence Social History [...] your living situation today? I have a [facility] place to live 01/01/2023 Sex and Gender Information Value Date Recorded Sex Assigned at Female 01/01/2023 9:08 AM CDT Gender Identity Female 01/01/2023 9:08 AM CDT Sexual Orientation Straight 01/01/2023 9: 08 AM CDT documented as of this encounter Plan of Treatment Upcoming Encounters Date Type Department Care Team (Latest Contact Info) Description 04/29/2023 9:30 AM TOP STOP ATTACHER Appointment Division of Gastroenterology in [place], [place] [address] [place] [phone] Jose Roberto Patterson M.D. 200 [place] [phone] Shane Becerra M.D. [address] [place] [phone] Discharge Disposition: Home or Self Care 05/02/2023 Hospital Encounter Outpatient Surgery Unit in [place], [place] [address] [place] [address] Luis Andrew M.D., M.P.H. [address] [place] [address] Scheduled Procedures Name Priority Associated Diagnoses Date/Ti me LITHOTRIPSY EXTRACORPOREAL S HOCK WAVE UNILATERAL Stone Pancreatic Duct documented as of this encounter Visit Diagnoses Not on filedocumented in this encounter Additional Health Concerns Assessment Noted Time PHQ-9 Depression Total Score: 21 05/31/ 012 10:33 AM TOP STOP ATTACHER documented as of this encounter Care Teams Line Production Cook Relationship Specialty Start Date End Date Elsewhere, Pcp PCP - General Internal Medicine 06/26/22 documented as of this encounter
--- OUTSIDE RECORDS SUMMARY | 2023-04-19 10:42 | XMS_ITS | Encounter Summary ---
Author Name Unknown Organization [facility] Address [address] [place] [address] Care Team Providers Care Banquet Stewardess Name Role Phone Elsewhere, Pcp Primary Care Provider Unavailabl e Encounter Details Date Type Department Care Team (Latest Contact Info) Description 12/27/2022 1:13 PM CDT Anesthesia Event Division of Gastroenterology in [place], [place] [address] [place] [phone] Gelacio Colunga APRN, REELING MACHINE SETUP OPERATOR [address] [place] [phone] Shane Carlos M.D. [address] [place] [phone] Anesthesia Record Procedure Summary Procedure Name Responsible Anesthesiologist Anesthesia Start Time Anesthesia Stop Time ENDOSCOPIC ULTRASOUND (EUS) Gelacio Colunga APRN, REELING MACHINE SETUP OPERATOR 12/27/22 1313 12/27/22 1419 Events Date [...] Time: 15312/27/22 1330 by Gelacio Colunga APRN, REELING MACHINE SETUP OPERATOR 12/27/22 1539 by Mitzy Arce, R.N. [...] Room / Location: Division of Gastroenterology in [place], [place] Anesthesia Start: 1313 Anesthesia Stop: 141 [...] ETT location: oral VL device: glide scope [place] scope blade size: 3 Tube size: 7 [...] (HCC) [K86.1] Location: Division of Gastroenterology in [place], [place] Pertinent components of the patient's history [...] with patient /legal guardian or through an loft rigger. The use of blood products not discussed Approval to Proceed: approved for anesthesia documented in this encounter Plan of Treatment Upcoming Encounters Date Type Department Care Team (Latest Contact Info) Description 04/29/2023 9:30 AM SPEECH CLINICIAN Appointment Division of Gastroenterology in [place], [place] [address] [place] [phone] Jose Roberto Patterson M.D. [address] [place] [phone] Shane Becerra M.D. [address] [place] [phone] Discharge Disposition: Home or Self Care 05/02/2023 Hospital Encounter Outpatient Surgery Unit in [place], [place] [address] [place] [phone] Luis Andrew M.D., M.P.H. [address] [place] [phone] Scheduled Procedures Name Priority Associated Diagnoses Date/Ti [...] CRNA Authorized by: Siddhartha Johnson APRN, CRNA ?? Patient location during procedure: OR / Procedure Area PROCEDURE DETAILS: Mask difficulty assessment: not attempted Final airway type: video laryngoscope Laryngeal Manipulation: no ?? Final best view of glottic structures - Cormack/Lehane Score: grade 1 ETT location: oral VL device: glide scope [place] scope blade size: 3 Tube size: 7 [...] Airway event: no complications Siddhartha Johnson APRN, CRNA ANESTHESIA ORD ERABLES documented in this encounter [...] Total Score: 21 05/31/ 012 10:33 AM SPEECH CLINICIAN documented as of this encounter Care Teams Banquet Stewardess Relationship Specialty Start Date End Date Elsewhere, Pcp PCP - General Internal Medicine 06/26/22 documented as of this encounter
--- OUTSIDE RECORDS SUMMARY | 2023-04-19 10:42 | XMS_ITS | Encounter Summary ---
Author Name Unknown Organization [facility] Address [address] [place] [address] Care Team Providers Care Events Intern Name Role Phone Elsewhere, Pcp Primary Care Provider Unavailabl e Encounter Details Date Type Department Care Team (Late st Contact Info) Description 01/02/2023 Documentation Preoperative Evaluation Center in [place], [place] [address] [place] [phone] Stacie Porter, ATUL, C.N.P., M.S.N. Social History [...] appointment is necessary. A comprehensive review of [facility] EMR was performed. We reviewed Care Everywhere [...] was not seen in [facility]. Please call [phone] ([facility] Doc of the day) week between 8 am and 4:30 pm with any questions. documented in this encounter Plan of Treatment Upcoming Encounters Date Type Department Care Team (Latest Contact Info) Description 04/29/2023 9:30 AM CHILD WELFARE CASEWORKER Appointment Division of Gastroenterology in [place], [place] [address] [place] [phone] Jose Roberto Patterson M.D. [address] [place] [phone] Shane Becerra M.D. [address] [place] [phone] Discharge Disposition: Home or Self Care 05/02/2023 Hospital Encounter Outpatient Surgery Unit in [place], [place] [address] [place] [address] Luis Andrew M.D., M.P.H. [address] [place] [phone] Scheduled Procedures Name Priority Associated Diagnoses Date/Ti me LITHOTRIPSY EXTRACORPOREAL S HOCK WAVE UNILATERAL Stone Pancreatic Duct documented as of this encounter Visit Diagnoses Not on filedocumented in this encounter Additional Health Concerns Assessment Noted Time PHQ-9 Depression Total Score: 21 012 10:33 AM CHILD WELFARE CASEWORKER documented as of this encounter Care Teams Events Intern Relationship Specialty Start Date End Date Elsewhere, Pcp PCP - General Internal Medicine 06/26/22 documented as of this encounter
--- OUTSIDE RECORDS SUMMARY | 2023-04-19 10:42 | XMS_ITS | Encounter Summary ---
Author Name Unknown Organization [facility] Address [address] [place] [address] Care Team Providers Care Director Of Marketing Communications Name Role Phone Elsewhere, Pcp Primary Care Provider Unavailabl e Encounter Details Date Type Department Care Team (Late st Contact Info) Description 01/07/2023 Orders Only Division of Community Internal Medicine at [address] [phone] Giorgio Ward M.D. [address] [place] [phone] Social History Tobacco Use Types Packs/Day Years [...] your living situation today? I have a [facility] place to live 01/01/2023 Sex and Gender Information Value Date Recorded Sex Assigned at Female 01/01/2023 9:08 AM CDT Gender Identity Female 01/01/2023 9:08 AM CDT Sexual Orientation Straight 01/01/2023 9: 08 AM CDT documented as of this encounter Plan of Treatment Upcoming Encounters Date Type Department Care Team (Latest Contact Info) Description 04/29/2023 9:30 AM CONTACT CENTER DIRECTOR Appointment Division of Gastroenterology in [place], [place] [address] [place] [phone] Jose Roberto Patterson M.D. 200 [place] [phone] Shane Becerra M.D. 200 [place] [phone] Discharge Disposition: Home or Self Care 05/02/2023 Hospital Encounter Outpatient Surgery Unit in [place], [place] [address] [place] [phone] Luis Andrew M.D., M.P.H. [address] [place] [phone] Scheduled Procedures Name Priority Associated Diagnoses Date/Ti me LITHOTRIPSY EXTRACORPOREAL S HOCK WAVE UNILATERAL Stone Pancreatic Duct documented as of this encounter Visit Diagnoses Not on filedocumented in this encounter Additional Health Concerns Assessment Noted Time PHQ-9 Depression Total Score: 21 05/31/ 012 10:33 AM CONTACT CENTER DIRECTOR documented as of this encounter Care Teams Director Of Marketing Communications Relationship Specialty Start Date End Date Elsewhere, Pcp PCP - General Internal Medicine 06/26/22 documented as of this encounter
--- OUTSIDE RECORDS SUMMARY | 2023-04-19 10:42 | XMS_ITS | Encounter Summary ---
Author Name Unknown Organization [facility] Address [address] [place] [address] Care Team Providers Care Livestock Counter Name Role Phone Elsewhere, Pcp Primary Care Provider Unavailabl e Encounter Details Date Type Department Care Team (Late st Contact Info) Description 01/01/2023 Clinical Communication Department of Urology in [place], [place] [address] [place] [phone] Luis Andrew M.D., M.P.H. [address] [place] [phone] Social History Tobacco Use Types Packs/Day Years [...] your living situation today? I have a [facility] place to live 01/01/2023 Sex and [...] on February [address] Andrew at [facility]. E-mail sent tovendor and nurse greenhouse manager, awaiting reply. Once confirmed, we will need to notify patient and place orders for EVELINA, send inbasket to [facility] (DOS) or [facility] (PASS) for ERCP coordination after surgery. documented in this encounter Plan of Treatment Upcoming Encounters Date Type Department Care Team (Latest Contact Info) Description 04/29/2023 9:30 AM MECHANICAL DESIGN DRAFTER Appointment Division of Gastroenterology in [place], [place] [address] [place] [phone] Jose Roberto Patterson M.D. [address] [place] [phone] Shane Becerra M.D. [address] [place] [phone] Discharge Disposition: Home or Self Care 05/02/2023 Hospital Encounter Outpatient Surgery Unit in [place], [place] [address] [place] [phone] Luis Andrew M.D., M.P.H. [address] [place] [phone] Scheduled Procedures Name Priority Associated Diagnoses Date/Ti me LITHOTRIPSY EXTRACORPOREAL S HOCK WAVE UNILATERAL Stone Pancreatic Duct documented as of this encounter Visit Diagnoses Diagnosis Stone Pancreatic Duct- Primary documented in this encounter Additional Health Concerns Assessment Noted Time PHQ-9 Depression Total Score: 21 012 10:33 AM MECHANICAL DESIGN DRAFTER documented as of this encounter Care Teams Livestock Counter Relationship Specialty Start Date End Date Elsewhere, Pcp PCP - General Internal Medicine 06/26/22 documented as of this encounter
--- OUTSIDE RECORDS SUMMARY | 2023-04-19 10:42 | XMS_ITS | Encounter Summary ---
Author Name Unknown Organization [facility] Address [address] [place] [address] Care Team Providers Care Business Controller Name Role Phone Elsewhere, Pcp Primary Care [...] (Latest Contact Info) Description 04/29/2023 9:30 AM DIRECTOR FINANCIAL PLANNING Appointment Division of Gastroenterology in [place], [place] [address] [place] [phone] Jose Roberto Patterson M.D. 200 [place] [phone] Shane Becerra M.D. [address] [place] [phone] Discharge Disposition: Home or Self Care 05/02/2023 Hospital Encounter Outpatient Surgery Unit in [place], [place] [address] [place] [phone] Luis Andrew M.D., M.P.H. [address] [place] [phone] Scheduled Procedures Name Priority Associated Diagnoses Date/Ti [...] Depression Total Score: 21 012 10:33 AM DIRECTOR FINANCIAL PLANNING documented as of this encounter Care Teams Business Controller Relationship Specialty Start Date End Date Elsewhere, Pcp PCP - General Internal Medicine 06/26/22 documented as of this encounter
--- OUTSIDE RECORDS SUMMARY | 2023-04-19 10:42 | XMS_ITS | Encounter Summary ---
Author Name Unknown Organization [facility] Address [address] [place] [phone] Care Team Providers Care Seo Marketing Specialist Name Role Phone Elsewhere, Pcp Primary Care Provider Unavailabl e Reason for Visit * Outpatient (Routine) - Closed Specialty Diagnoses / Procedures Referred By Olivia t Referred To Contact Urology Diagnoses Pancreatitis Chronic (HCC) Jose Roberto Patterson M.D. [address] [place] [phone] [facility] Referral ID Status Reason Start Date Expiration Date Visits Re quested Visits Authorized [id number] Closed 12/27/2022 12/27/2023 1 1 Encounter Details Date Type Department Care Team (Late st Contact Info) Description 01/01/2023 9:30 AM CDT Telemedicine Department of Urology in [place], [place] [address] [place] [phone] Luis Andrew M.D., M.P.H. [address] [place] [phone] Stone Pancreatic Duct (Primary Dx); Pancreatitis Chronic [...] your living situation today? I have a [facility] place to live 01/01/2023 Sex and [...] the request of Jose Roberto Patterson M.D. [address] [place] [phone] REASON FOR CONSULT Nephrolithiasis Patient seen on Dr. Andrew's calendar Consult conducted via real-time audio/video technology by Ilene Cedillo APRN, C.N.PCarlos, D.N.P. [facility] to the patient in Patient's Home HISTORY [...] (Latest Contact Info) Description 04/29/2023 9:30 AM PE MANAGER Appointment Division of Gastroenterology in [place], [place] [address] [place] [phone] Jose Roberto Patterson M.D. [address] [place] [phone] Shane Becerra M.D. [address] [place] [phone] Discharge Disposition: Home or Self Care 05/02/2023 Hospital Encounter Outpatient Surgery Unit in [place], [place] [address] [place] [phone] Luis Andrew M.D., M.P.H. [address] [place] [phone] Scheduled Procedures Name Priority Associated Diagnoses Date/Ti me LITHOTRIPSY EXTRACORPOREAL S HOCK WAVE UNILATERAL Stone Pancreatic Duct documented as of this encounter Visit Diagnoses Diagnosis Stone Pancreatic Duct- Primary Pancreatitis Chronic (HCC) documented in this encounter Additional Health Concerns Assessment Noted Time PHQ-9 Depression Total Score: 21 012 10:33 AM PE MANAGER documented as of this encounter Care Teams Seo Marketing Specialist Relationship Specialty Start Date End Date Elsewhere, Pcp PCP - General Internal Medicine 06/26/22 documented as of this encounter
--- OUTSIDE RECORDS SUMMARY | 2023-04-19 10:42 | XMS_ITS | Encounter Summary ---
Author Name Unknown Organization [facility] Address [address] [place] [address] Care Team Providers Care Potash Flaker Name Role Phone Elsewhere, Pcp Primary Care Provider Unavailabl e Reason for Visit * Auth/Cert (Routine) Specialty Diagnoses / Procedures Referred By Olivia t Referred To Contact Diagnoses Stone Pancreatic Duct Stone Pancreatic Duct [K86.89] Procedures [place] PANC LITHOTRIPSY SHOCK WAVE Pancreatic LITHOTRIPSY EXTRACORPOREAL SHOCK WAVE UNILATERAL, possible multiple trips to the operating room in 90 days, proceed as indicated Referral ID Status Reason Start Date Expiration Date Visits Re quested Visits Authorized [id number] 1 1 Encounter Details Date Type Department Care Team (Latest Contact Info) Description 02/19/2023 5:47 AM COMPUTER FORENSICS EXAMINER - 02/19/2023 9:13 AM [facility] Hospital Encounter [facility] 02 4 AM ADMIT [address] [place] [phone] Luis Andrew M.D., M.P.H. [address] [place] [phone] Discharge Disposition: Home or Self Care Social [...] your living situation today? I have a [facility] place to live 01/01/2023 Sex and Gender Information Value Date Recorded Sex Assigned at Female 01/01/2023 9:08 AM CDT Gender Identity Female 01/01/2023 9:08 AM CDT Sexual Orientation Straight 01/01/2023 9: 08 AM CDT documented as of this encounter Last Filed Vital Signs Vital Sign Reading Time Taken Comments Blood Pressure 126/75 02/19/2023 6:31 AM COMPUTER FORENSICS EXAMINER Pulse 70 02/19/2023 6:31 AM COMPUTER FORENSICS EXAMINER Temperature 37 ??C (98.6 ??F) 02/19/2023 6:31 AM COMPUTER FORENSICS EXAMINER Respiratory Rate 14 02/19/2023 6:31 AM COMPUTER FORENSICS EXAMINER Oxygen Saturation 95% 02/19/2023 6:31 AM COMPUTER FORENSICS EXAMINER Inhaled Oxygen Concentration - - Weight 57 kg (125 lb 10.6 oz) 02/19/2023 6:31 AM COMPUTER FORENSICS EXAMINER Height 158.5 cm (5' 2.4) 02/19/2023 6:31 AM COMPUTER FORENSICS EXAMINER Body Mass Index 22.69 02/19/2023 6:31 AM COMPUTER FORENSICS EXAMINER documented in this encounter Medications at Time [...] to proceed with ERCP tomorrow to them. UTER FORENSICS EXAMINER * Aquilino Flores - 02/19/2023 6:45 AM CST [facility] Spiritual Care Progress Note Patient: Yary Prince Age:67 y.o. Location: [facility] Reason(s) for encounter: Spiritual support as part of the interdisciplinary care team. Spiritual Assessment Spiritual Needs and/or Concerns: None expressed at this time. Spiritual Care Plan / Recommendations: No further spiritual care requested or required at this time. Chaplains can be contacted by paging [phone] ([place]) or [phone] ([place]). UTER FORENSICS EXAMINER documented in this encounter Plan of Treatment Upcoming Encounters Date Type Department Care Team (Latest Contact Info) Description 04/29/2023 9:30 AM COMPUTER FORENSICS EXAMINER Appointment Division of Gastroenterology in [place], [place] [address] [place] [phone] Jose Roberto Patterson M.D. [address] [place] [phone] Shane Becerra M.D. [address] [place] [phone] Discharge Disposition: Home or Self Care 05/02/2023 Hospital Encounter Outpatient Surgery Unit in [place], [place] [address] [place] [phone] Luis Andrew M.D., M.P.H. [address] [place] [phone] Scheduled Procedures Name Priority Associated Diagnoses Date/Ti me LITHOTRIPSY EXTRACORPOREAL S HOCK WAVE UNILATERAL Stone Pancreatic Duct documented as of this encounter Procedures Procedure Name Priority Date/Time Associated Diagnosis Comments GLUCOSE POCT, B Routine 02/19/2023 6:17 AM COMPUTER FORENSICS EXAMINER HEMOGLOBIN A1C, B Routine 02/19/2023 6:1 7 AM COMPUTER FORENSICS EXAMINER documented in this encounter Results * Glucose, POCT (02/19/2023 6:17 AM COMPUTER FORENSICS EXAMINER) Glucose, POCT, B 82 70 - 140 mg/dL 02/19/2023 6:38 AM COMPUTER FORENSICS EXAMINER PCDE Site Capillary 02/19/2023 6:38 AM COMPUTER FORENSICS EXAMINER PCDE Blood 02/19/2023 6:17 AM COMPUTER FORENSICS EXAMINER 02/19/2023 6:38 AM COMPUTER FORENSICS EXAMINER Unknown Provider LAB POCT ORDERABLES- MANUAL Performing Organization Address [facility] [address]/[facility] de Phone Number POC [facility] 200 [place] [address], [facility] PCDE [facility] 200 [place] [address] * (ABNORMAL) Hemoglobin A1c (02/19/2023 6:17 AM COMPUTER FORENSICS EXAMINER) Hemoglobin A1c, B 7.8(H) 4.0 - 5.6 % 02/19/2023 7:11 AM COMPUTER FORENSICS EXAMINER DTL Comment: Hemoglobin A1c values greater than or equal to 6.5 percent are diagnostic for diabetes mellitus. ??Diagnosis should be confirmed by repeat testing. ??In diabetic patients, HbA1c goals should be discussed with healthcare provider. Blood (Blood, Venous) 02/19/2023 6:17 AM COMPUTER FORENSICS EXAMINER 02/19/2023 6:33 AM COMPUTER FORENSICS EXAMINER Luis Andrew M.D., M.P.H. LAB BLOOD ADD-ON Performing Organization Address City/[facility] [address]/ZIP Co de Phone Number [facility] 200 [place] [address], [place] DTL [facility] 200 [place] [address] documented in this encounter Visit Diagnoses Diagnosis [...] in preprocedural area. Given 02/19/2023 7:27 AM COMPUTER FORENSICS EXAMINER 1,000 mg chlorhexidine 0.12 % mouthwash 15 [...] Recently Administered Medications Times are shown in COMPUTER FORENSICS EXAMINER. Scheduled Medication Order 02/17/2023 02/18/2023 02/19/2023 acetaminophen [...] take their last scheduled dose of beta ivrgen prior to arrival, Starting on Sat02/19/23 at [...] Depression Total Score: 21 012 10:33 AM COMPUTER FORENSICS EXAMINER documented as of this encounter Care Teams Potash Flaker Relationship Specialty Start Date End Date Elsewhere, Pcp PCP - General Internal Medicine 06/26/22 documented as of this encounter
--- OUTSIDE RECORDS SUMMARY | 2023-04-19 10:42 | XMS_ITS | Encounter Summary ---
Author Name Unknown Organization [facility] Address [address] [place] [address] Care Team Providers Care Clinical Engineering Director Name Role Phone Elsewhere, Pcp Primary Care Provider Unavailabl e Reason for Visit * Reason Comments Nicotine Dependence * Outpatient (Routine) - Closed Specialty Diagnoses / Procedures Referred By Contgriffin t Referred To Contact Pulmonary Medicine / Nicotine Dependence Diagnoses Pancreatitis Chronic (HCC) Jose Roberto Patterson M.D. [address] [place] [phone] [facility] Referral ID Status Reason Start Date Expiration Date Visits Re quested Visits Authorized [id number] Closed 12/27/2022 12/27/2023 1 1 Encounter Details Date Type Department Care Team (Late st Contact Info) Description 01/02/2023 11:00 AM CDT Telemedicine Department of Nicotine Dependence, [facility], in [place], [place] [address] [place] [phone] Jose Roberto Patterson M.D. [address] [place] [phone] Froy Can M.A. Nicotine Dependence Cigarettes (Primary [...] your living situation today? I have a [facility] place to live 01/01/2023 Sex and Gender Information Value Date Recorded Sex Assigned at Female 01/01/2023 9:08 AM CDT Gender Identity Female 01/01/2023 9:08 AM CDT Sexual Orientation Straight 01/01/2023 9: 08 AM CDT documented as of this encounter Consult Notes * Froy Can M.A. - 01/02/2023 11:00 AM CDT SUBJECTIVE Consult conducted via real-time audio/video technology by Froy Can M.A. in [place], [place] at [facility] to the patient at home. CHIEF COMPLAINT [...] via video. and Patient was provided with [facility] educational materials electronically. . Patient [...] (Latest Contact Info) Description 04/29/2023 9:30 AM CENTRIFUGE SEPARATOR TENDER Appointment Division of Gastroenterology in [place], [place] [address] [place] [phone] Jose Roberto Patterson M.D. [address] [place] [phone] Shane Becerra M.D. [address] [place] [phone] Discharge Disposition: Home or Self Care 05/02/2023 Hospital Encounter Outpatient Surgery Unit in [place], [place] [address] [place] [phone] Luis Andrew M.D., M.P.H. [address] [place] [phone] Scheduled Procedures Name Priority Associated Diagnoses Date/Ti me LITHOTRIPSY EXTRACORPOREAL S HOCK WAVE UNILATERAL Stone Pancreatic Duct documented as of this encounter Visit Diagnoses Diagnosis Nicotine Dependence Cigarettes- Primary Pancreatitis Chronic (HCC) documented in this encounter Additional Health Concerns Assessment Noted Time PHQ-9 Depression Total Score: 21 012 10:33 AM CENTRIFUGE SEPARATOR TENDER documented as of this encounter Care Teams Clinical Engineering Director Relationship Specialty Start Date End Date Elsewhere, Pcp PCP - General Internal Medicine 06/26/22 documented as of this encounter
--- OUTSIDE RECORDS SUMMARY | 2023-04-19 10:42 | XMS_ITS | Encounter Summary ---
Author Name Unknown Organization [facility] Address [address] [place] [address] Care Team Providers Care Fire Equipment Inspector Name Role Phone Elsewhere, Pcp Primary Care Provider Unavailabl e Reason for Visit * Reason Comments Back Pain Encounter Details Date Type Department Care Team (Late st Contact Info) Description 01/05/2023 4:46 PM CDT - 01/05/2023 8:07 PM CDT Emergency [facility] [address] [place] [phone] Madhav Basurto APRN, C.N.P., D.N.P. [address] [place] [phone] Rivera Brandt APRN, C.N.P., M.S.N. [address] [place] [phone] Abdominal Pain (Primary Dx) Discharge Disposition: Home [...] through Care Everywhere. * Abdominal Pain Adult (Micronesian) documented in this encounter Medications at Time [...] ar by Madhav Basurto CNP. Disposition pending lab [...] is currently in. History provided by: Patient rotating equipment specialist needed/used: no REVIEW OF SYSTEMS Constitutional: [...] (*) Bilirubin Small (*) pH 5.5 Specific [place] >=1.030 Urobilinogen 0.2 White Blood Cells Occ-3 [...] CBC with a mild leukocytosis and neutrophilia. COMPENSATION ADJUSTER unremarkable, CRP is within normal limits, lactate [...] DIAGNOSIS Pending DISPOSITION Pending Madhav Basurto, ARIANE, SEASONAL DRIVER, TRANSITIONAL LIVING SPECIALIST-C, AGACNP-BC, ENP-C Emergency Medicine Madhav Basurto APRN, C.N.P., D.N.P. 01/05/23 1829 documented in this encounter Plan of Treatment Upcoming Encounters Date Type Department Care Team (Latest Contact Info) Description 04/29/2023 9:30 AM LEVEL VIAL INSIDE GRINDER Appointment Division of Gastroenterology in [place], [place] [address] [place] [phone] Jose Roberto Patterson M.D. [address] [place] [phone] Shane Becerra M.D. [address] [place] [phone] Discharge Disposition: Home or Self Care 05/02/2023 Hospital Encounter Outpatient Surgery Unit in [place], [place] [address] [place] [address] Lius Andrew M.D., M.P.H. [address] [place] [phone] Scheduled Procedures Name Priority Associated Diagnoses Date/Ti [...] PM CDT 01/05/2023 7:11 PM CDT Narrative [facility] - 01/05/2023 7:33 PM CDT Specimen Information: Specimen ID: [id number] Specimen Type: Blood Specimen Collection Start Date: 01/05/2023 ??7:08 PM Specimen Received Date: 01/05/2023 ??7:11 PM Specimen ID: [id number] Specimen Type: Blood Madhav Basurto APRN, C.N.P., D.N.P. LAB BLOOD TROPONIN [facility] [address] [place] [address], [facility] [address] [address] * Lactate, 3 hour draw (01/05/2023 7:08 PM CDT) Lactate, P 0.7 0.5 - 2.2 mmol/L 01/05/2023 7:32 PM CDT [facility]FL Blood (Blood, Venous) 01/05/2023 7:08 PM CDT 01/05/2023 7:11 PM CDT Madhav Basurto APRN, C.N.P., D.N.P. LAB BLOOD NON ADD-ON [facility] [address] [place] [address], [facility] in [address] [address] * CT Chest Abdomen Pelvis Angiogram with [...] pancreatic duct. Madhav Basurto APRN, C.N.P., D.N.P. [facility] PROCEDURES * (ABNORMAL) Urinalysis with Microscopic: [...] 8.0 01/05/2023 6:12 PM CDT [facility] Specific [place] >=1.030 1.001 - 1.035 01/05/2023 6:12 PM [...] CDT 01/05/2023 6:10 PM CDT Madhav Basurto APRN, C.N.P., D.N.P. LAB URINE ORDERABLES Performing Organization Address City/[facility] Co de Phone Number [address] [address], [address] [address] * CRP (C-Reactive Protein) (01/05/2023 4:59 PM CDT) C-Reactive Protein (CRP), P <3.0 <5.0 mg/L 01/05/2023 5:21 PM CDT [facility] Blood (Blood, Venous) 01/05/2023 4:59 PM CDT 01/05/2023 5:02 PM CDT Mona Tan APRN.N.P., D.N.P. LAB BLOOD ADD-ON Performing Organization Address [facility] Co de Phone Number [address] [address], [address] [address] * D-Dimer (01/05/2023 4:59 PM CDT) D-Dimer, P <220 <=500 ng/mL FEU 01/05/2023 5:20 PM CDT [facility] Comment: ----ADDITIONAL INFORMATION---- D-dimer values less than or equal to 500 ng/mL fibrinogen equivalent units (FEU) may be used in conjunction with clinical pre-test probability to exclude deep vein thrombosis (DVT) and/or pulmonary embolism (PE). Blood (Blood, Venous) 01/05/2023 4:59 PM CDT 01/05/2023 5:02 PM CDT Mona Tan APRN.N.P., D.N.P. LAB BLOOD ADD-ON Performing Organization Address City/[facility] Co de Phone Number [address] [address], [address] [address] * Troponin T, Baseline, 5th gen (01/05/2023 4:59 PM CDT) Troponin T, Baseline, 5th gen 6 <=10 ng/L 01/05/2023 5:25 PM CDT [facility] Blood (Blood, Venous) 01/05/2023 4:59 PM CDT 01/05/2023 5:02 PM CDT Madhav Basurto APRN, Mona.N.P., D.N.P. LAB BLOOD TROPONIN [address] [address], [address] [address] * Lactate, baseline (01/05/2023 4:59 PM CDT) Pathologist [facility] Lactate, P 0.8 0.5 - 2.2 mmol/L 01/05/2023 5:19 PM CDT [facility] Blood (Blood, Venous) 01/05/2023 4:59 PM CDT 01/05/2023 5:02 PM CDT Madhav Basurto APRN, Mona.N.P., D.N.P. LAB BLOOD NON ADD-ON [address] [address], [facility] in [address] [address] * Lipase (01/05/2023 4:59 PM CDT) Lipase, P 14 13 - 60 U/L 01/05/2023 5: 21 PM CDT [facility] Blood (Blood, Venous) 01/05/2023 4:59 PM CDT 01/05/2023 5:02 PM CDT Sandra Tan APRNNAubrie., D.N.P. LAB BLOOD ADD-ON [facility] [address] [place] [address], [facility] in [address] [address] * (ABNORMAL) Comprehensive Metabolic Panel (01/05/2023 4:59 PM CDT) [facility] Potassium, P 3.8 3.6 - 5.2 mmol/L [...] CDT 01/05/2023 5:02 PM CDT Madhav Basurto APRN C.N.P., D.N.P. LAB BLOOD ADD-ON [facility] [address] [place] [address], [facility] [place] [address] * (ABNORMAL) CBC with Differential, Blood (01/05/2023 [...] D.N.P. LAB BLOOD ADD-ON Performing Organization Address City/State/[facility] Co de Phone Number [facility] [address] [place] [address], [facility] [place] [address] * ECG 12 Lead (01/05/2023 4:54 PM CDT) Ventricular Rate ECG/Min 63 BPM MUSE SD Interval 164 ms MUSE QRSD Interval 74 ms MUSE QT Interval 428 ms MUSE QTC Interval 437 ms MUSE P [place] 58 degrees MUSE R [place] 58 degrees MUSE T Wave [place] 66 degrees MUSE 01/05/2023 4:54 PM CDT [...] in Anterolateral leads Reviewed by DANNY Lambert Madhav Basurto APRN, C.N.P., D.N.P. ECG ORDERABLES MUSE NA documented in [...] 170 (Given - Provid er: Meagan Lozano R.N.) fentaNYL injection 50 mcg (SUBLIMAZE) (COMPLETED) 50 [...] 171 (Given - Provid er: Maciej Dawson R.N.) ondansetron (PF) injection 4 mg (ZOFRAN) (COMPLETED) 4 mg, intravenous, Once, On 01/05/23 at 1651, For 1 dose 170 (Given - Provid er: Meagan Lozano R.N.) sodium chloride 0.9 % flush 80 mL (COMPLETED) 80 mL, intravenous, Once, On 01/05/23 at 1810, For 1 dose 184 (Given - Provid er: Somo Wright, R.T.(R)(CT), R.T.(R)) sodium chloride 0.9 % injection 10 mL (COMPLETED) 10 mL, intravenous, Once, On 01/05/23 at 1810, For 1 dose 184 (Given - Provid er: Somo Proeucale, R.T.(R)(CT), R.T.(R)) PRN Medication Order 01/03/2023 01/04/2023 01/05/2023 iohexoL 350 mg iodine/mL solution 80 mL (OMNIPAQUE) (COMPLETED) 80 mL, intravenous, Once in imaging, contrast, Starting on 01/05/23 at 1808, For 1 dose 1840 (Given - Provid er: Marito Wright, R.T.(R)(CT), R.T.(R)) documented in this encounter Additional Health Concerns Assessment Noted Time PHQ-9 Depression Total Score: 21 05/31/ 012 10:33 AM LEVEL VIAL INSIDE GRINDER documented as of this encounter Care Teams Fire Equipment Inspector Relationship Specialty Start Date End Date Elsewhere, Pcp PCP - General Internal Medicine 06/26/22 documented as of this encounter
--- OUTSIDE RECORDS SUMMARY | 2023-04-19 10:42 | XMS_ITS | Encounter Summary ---
Author Name Unknown Organization [facility] Address [address] [place] [address] Care Team Providers Care Juice Mixer Name Role Phone Elsewhere, Pcp Primary Care Provider Unavailabl e Reason for Visit * Reason Onset Date Comments New Med Request 01/02/2023 Encounter Details Date Type Department Care Team (Latest Contact Info) Description 01/02/2023 Clinical Communication Department of Nicotine Dependence, [facility], in [place], [place] [address] [place] [phone] Froy Can M.A. New Med Request Social [...] living situation today? I have a [facility] place to live 01/01/2023 Sex and [...] PM CDT Manisha, starter, continuation, with refills [place], [place] documented in this encounter Plan of Treatment Upcoming Encounters Date Type Department Care Team (Latest Contact Info) Description 04/29/2023 9:30 AM HOME ENERGY INSPECTOR Appointment Division of Gastroenterology in [place], [place] [address] [place] [phone] Jose Roberto Patterson M.D. [address] [place] [phone] Shane Becerra M.D. [address] [place] [phone] Discharge Disposition: Home or Self Care 05/02/2023 Hospital Encounter Outpatient Surgery Unit in [place], [place] [address] [place] [phone] Luis Andrew M.D., M.P.H. [address] [place] [phone] Scheduled Procedures Name Priority Associated Diagnoses Date/Ti me LITHOTRIPSY EXTRACORPOREAL S HOCK WAVE UNILATERAL Stone Pancreatic Duct documented as of this encounter Visit Diagnoses Not on filedocumented in this encounter Additional Health Concerns Assessment Noted Time PHQ-9 Depression Total Score: 21 012 10:33 AM HOME ENERGY INSPECTOR documented as of this encounter Care Teams Juice Mixer Relationship Specialty Start Date End Date Elsewhere, Pcp PCP - General Internal Medicine 06/26/22 documented as of this encounter
--- OUTSIDE RECORDS SUMMARY | 2023-04-19 10:43 | XMS_ITS | Encounter Summary ---
Author Name Unknown Organization [facility] Address [address] [place] [address] Care Team Providers Care Customer Service Attendant Name Role Phone Elsewhere, Pcp Primary Care Provider Unavailabl e Reason for Referral * Outpatient (Routine) - Closed Specialty Diagnoses / Procedures Referred By Olivia gonzalez Referred To Contact Diagnoses Pancreatitis Chronic (HCC) Procedures Endoscopic ultrasound (EUS) Jose Roberto Patterson M.D. 200 [place] [address] [facility] Referral ID Status Reason Start Date Expiration Date Visits Re quested Visits Authorized [id number] Closed 12/27/2022 12/27/2023 1 1 Reason for Visit * Outpatient (Routine) - Closed Specialty Diagnoses / Procedures Referred By Olivia gonzalez Referred To Contact Diagnoses Pancreatitis Chronic (HCC) Procedures Endoscopic ultrasound (EUS) Jose Roberto Patterson M.D. [address] [place] [address] [facility] Referral ID Status Reason Start Date Expiration Date Visits Re quested Visits Authorized [id number] Closed 12/27/2022 12/27/2023 1 1 Encounter Details Date Type Department Care Team (Latest Contact Info) Description 12/27/2022 9:56 AM CDT - 12/27/2022 11:59 PM CDT Hospital Encounter Division of Gastroenterology in [place], [place] 200 [place] [address] Jose Robreto Patterson M.D. [address] [place] [address] Pancreatitis Chronic (HCC) Discharge Disposition: Home or [...] Units under the skin. 0 09/17/2022 02/19/2023 mnpogldjfkwh-[id number]-NR -lutein (CENTRUM SILVER) 400-250 mcg per chewable tablet Chew 1 tablet at bedtime. 0 01/01/2023 documented as of this encounter Plan of Treatment Upcoming Encounters Date Type Department Care Team (Latest Contact Info) Description 04/29/2023 9:30 AM FLUE DUST LABORER Appointment Division of Gastroenterology in [place], [place] [address] [place] [phone] Jose Roberto Patterson M.D. [address] [place] [phone] Shane Becerra M.D. [address] [place] [phone] Discharge Disposition: Home or Self Care 05/02/2023 Hospital Encounter Outpatient Surgery Unit in [place], [place] [address] [place] [phone] Luis Andrew M.D., M.P.H. [address] [place] [phone] Scheduled Orders Name Type Priority Associated Diagnoses Orde r Schedule Glucose, POCT Point of Care Testing-Docked Device Routine Routine lab collecti on (next collection) for 1 Occurrences starting 12/27/2022 until 12/27/2022 Scheduled Procedures Name Priority Associated Diagnoses Date/Ti [...] PM CDT) 12/27/2022 1:16 PM CDT [facility] 12/27/2022 3:34 PM CDT Post-op Diagnoses: [...] Celiac plexus block performed as above. Narrative [facility] - 12/27/2022 3:34 PM CDT Gonda 2 [...] GI PROCEDURE O RDERABLES Performing Organization Address [facility] Co de Phone Number [employer] NA * (ABNORMAL) Glucose, POCT (12/27/2022 1:00 PM CDT) Glucose, POCT, B 237(H) 70 - 140 mg/dL 12/27/2022 1:04 PM CDT PCMO Site Capillary 12/27/2022 1:04 PM CDT PCMO Blood 12/27/2022 1:00 PM CDT 12/27/2022 1:05 PM CDT Unknown Provider LAB POCT ORDERABLES- MANUAL Performing Organization Address [facility] Co de Phone Number [facility] 200 [place] [address], [facility] 200 [place] [address] documented in this encounter Visit Diagnoses Diagnosis [...] Depression Total Score: 21 012 10:33 AM FLUE DUST LABORER documented as of this encounter Care Teams Customer Service Attendant Relationship Specialty Start Date End Date Elsewhere, Pcp PCP - General Internal Medicine 06/26/22 documented as of this encounter
--- OUTSIDE RECORDS SUMMARY | 2023-04-19 10:43 | XMS_ITS | Encounter Summary ---
Author Name Unknown Organization [facility] Address [address] [place] [address] Care Team Providers Care Human Resource Management Instructor Name Role Phone Elsewhere, Pcp Primary Care Provider Unavailabl e Reason for Referral * Outpatient (Routine) - Closed Specialty Diagnoses / Procedures Referred By Olivia gonzalez Referred To Contact Diagnoses Pancreatitis Chronic (HCC) Procedures DX Abdomen 4 Views DX Kidneys Ureters Bladder Arturo Camacho M.B.BChantell, M.S. [address] [place] [phone] [facility] Referral ID Status Reason Start Date Expiration Date Visits Re quested Visits Authorized [id number] Closed 12/13/2022 12/13/2023 1 1 Reason for Visit * Outpatient (Routine) - Closed Specialty Diagnoses / Procedures Referred By Olivia gonzalez Referred To Contact Diagnoses Pancreatitis Chronic (HCC) Procedures DX Abdomen 4 Views DX Kidneys Ureters Bladder Arturo Camacho M.B.B.S., M.S. [address] [place] [phone] [facility] Referral ID Status Reason Start Date Expiration Date Visits Re quested Visits Authorized [id number] Closed 12/13/2022 12/13/2023 1 1 Encounter Details Date Type Department Care Team (Latest Contact Info) Description 12/26/2022 2:12 PM CDT - 12/26/2022 11:59 PM CDT Hospital Encounter Department of Radiology, [facility], in [place], [place] [address] [place] [address] Arturo Camacho M.B.B.S., M.S. [address] [place] [address] Pancreatitis Chronic (HCC) Discharge Disposition: Home or [...] Units under the skin. 0 09/17/2022 02/19/2023 bypelhxcngar-chndzgfs-NC -lutein (CENTRUM SILVER) 400-250 mcg per chewable tablet Chew 1 tablet at bedtime. 0 01/01/2023 documented as of this encounter Miscellaneous Notes * Result Encounter Note - Arturo Camacho M.B.B.S., M.S. - 12/30/2022 7:46 PM CDT FYI documented in this encounter Plan of Treatment Upcoming Encounters Date Type Department Care Team (Latest Contact Info) Description 04/29/2023 9:30 AM HAT FORMING MACHINE FEEDER Appointment Division of Gastroenterology in [place], [place] [address] [place] [phone] Jose Roberto Patterson M.D. [address] [place] [phone] Shane Becerra M.D. [address] [place] [phone] Discharge Disposition: Home or Self Care 05/02/2023 Hospital Encounter Outpatient Surgery Unit in [place], [place] [address] [place] [phone] Luis Andrew M.D., M.P.H. [address] [place] [phone] Scheduled Procedures Name Priority Associated Diagnoses Date/Ti [...] Total Score: 21 05/31/ 012 10:33 AM HAT FORMING MACHINE FEEDER documented as of this encounter Care Teams Human Resource Management Instructor Relationship Specialty Start Date End Date Elsewhere, Pcp PCP - General Internal Medicine 06/26/22 documented as of this encounter
--- OUTSIDE RECORDS SUMMARY | 2023-04-19 10:43 | XMS_ITS | Encounter Summary ---
Author Name Unknown Organization [facility] Address [address] [place] [address] Care Team Providers Care Marketing Summer Intern Name Role Phone Elsewhere, Pcp Primary Care Provider Unavailabl e Reason for Visit * Outpatient (Routine) - Closed Specialty Diagnoses / Procedures Referred By Contact Referred To Contact Gastroenterology and Hepatology Diagnoses Abdominal Pain Nausea And Vomiting Frequency Urinary Urgency Urinary Pancreatitis Chronic (HCC) Abnormal Findings On Diagnostic Imaging Of Other Abdominal Regions Including Retroperitoneum Jackson Wren P.A.-C. [address] [place] [phone] [facility] Referral ID Status Reason Start Date Expiration Date Visits Re quested Visits Authorized [id number] Closed 10/19/2022 10/18/2025 1 1 Encounter Details Date Type Department Care Team (Latest Contact Info) Description 10/24/2022 8:20 AM CDT Internal E-Consult Division of Gastroenterology in [place], [place] [address] [place] [phone] Maria L Wilburn M.D. [address] [place] [phone] Abdominal Pain; Nausea And Vomiting; Frequency Urinary; [...] (Latest Contact Info) Description 04/29/2023 9:30 AM BRIDGE LEVERMAN Appointment Division of Gastroenterology in [place], [place] 200 [place] [phone] Jose Roberto Patterson M.D. 200 [place] [phone] Shane Becerra M.D. [address] [place] [address] Discharge Disposition: Home or Self Care 05/02/2023 Hospital Encounter Outpatient Surgery Unit in [place], [place] [address] [place] [phone] Luis Andrew M.D., M.P.H. [address] [place] [phone] Scheduled Procedures Name Priority Associated Diagnoses Date/Ti fl LITHOTRIPSY EXTRACORPOREAL S HOCK WAVE UNILATERAL Stone Pancreatic Duct documented as of this encounter Visit Diagnoses Diagnosis Abdominal Pain Nausea And Vomiting Frequency Urinary Urgency Urinary Pancreatitis Chronic (HCC) Abnormal Findings On Diagnostic Imaging Of Other Abdominal Regions Including Retroperitoneum documented in this encounter Additional Health Concerns Assessment Noted Time PHQ-9 Depression Total Score: 21 012 10:33 AM BRIDGE LEVERMAN documented as of this encounter Care Teams Marketing Summer Intern Relationship Specialty Start Date End Date Elsewhere, Pcp PCP - General Internal Medicine 06/26/22 documented as of this encounter
--- OUTSIDE RECORDS SUMMARY | 2023-04-19 10:43 | XMS_ITS | Encounter Summary ---
Author Name Unknown Organization [facility] Address [address] [place] [address] Care Team Providers Care Financial Management Name Role Phone Elsewhere, Pcp Primary Care Provider Unavailabl e Reason for Visit * Reason Onset Date Comments was inpatient and left of ow n decision, wants readmitted 10/25/2022 Admitted 10-23-22, left the hospital 10-24-22 Encounter Details Date Type Department Care Team (Late st Contact Info) Description 10/25/2022 Nurse Triage Department of Family Medicine in [place], [place] [address] [place] [phone] Tiki Adams, R.N. was inpatient and left [...] to the triager Protocols used: Post-Hospitalization Follow-up Basc-OBUPT-LK Care Advice Patient/Caregiver understands and will follow [...] (Latest Contact Info) Description 04/29/2023 9:30 AM PRODUCT DEVELOPMENT ECOLOGIST Appointment Division of Gastroenterology in [place], [place] [address] [place] [phone] Jose Roberto Patterson M.D. [address] [place] [phone] Shane Becerra M.D. [address] [place] [phone] Discharge Disposition: Home or Self Care 05/02/2023 Hospital Encounter Outpatient Surgery Unit in [place], [place] [address] [place] [phone] Luis Andrew M.D., M.P.H. [address] [place] [phone] Scheduled Procedures Name Priority Associated Diagnoses Date/Ti me LITHOTRIPSY EXTRACORPOREAL S HOCK WAVE UNILATERAL Stone Pancreatic Duct documented as of this encounter Visit Diagnoses Not on filedocumented in this encounter Additional Health Concerns Assessment Noted Time PHQ-9 Depression Total Score: 21 012 10:33 AM PRODUCT DEVELOPMENT ECOLOGIST documented as of this encounter Care Teams Financial Management Relationship Specialty Start Date End Date Elsewhere, Pcp PCP - General Internal Medicine 06/26/22 documented as of this encounter
--- OUTSIDE RECORDS SUMMARY | 2023-04-19 10:43 | XMS_ITS | Encounter Summary ---
Author Name Unknown Organization [facility] Address [address] [place] [address] Care Team Providers Care Supervisor Electronics Inspection Name Role Phone Elsewhere, Pcp Primary Care Provider Unavailabl e Reason for Visit * Reason Comments Abdominal Pain Encounter Details Date Type Department Care Team (Late st Contact Info) Description 10/25/2022 5:15 PM CDT - 10/25/2022 7:09 PM CDT Emergency [facility] [address] [place] [phone] Rivera Brandt, ATUL, C.N.P., M.S.N. [address] [place] [phone] Abdominal Pain (Primary Dx) Discharge Disposition: Home [...] through Care Everywhere. * Abdominal Pain Adult (South African) documented in this encounter Medications at Time [...] Units under the skin. 0 09/17/2022 02/19/2023 monkesblmpsh-yocihavw-VE -lutein (CENTRUM SILVER) 400-250 mcg per chewable [...] c/o pain in her abd. Izzy Santiago R.N. 10/25/221722 documented in this encounter Plan of Treatment Upcoming Encounters Date Type Department Care Team (Latest Contact Info) Description 04/29/2023 9:30 AM CREW BOSS Appointment Division of Gastroenterology in [place], [place] [address] [place] [address] Jose Roberto Patterson M.D. [address] [place] [phone] Shane Becerra M.D. [address] [place] [phone] Discharge Disposition: Home or Self Care 05/02/2023 Hospital Encounter Outpatient Surgery Unit in [place], [place] [address] [place] [phone] Luis Andrew M.D., M.P.H. [address] [place] [phone] Scheduled Procedures Name Priority Associated Diagnoses Date/Ti [...] CDT 10/25/2022 6:23 PM CDT Rivera Brandt APRN, C.N.P., M.S.N. LAB BLOO D ADD-ON [address] [address], [facility] [address] [address] * Lactate (10/25/2022 6:20 PM CDT) Lactate, P 0.9 0.5 - 2.2 mmol/L 10/25/2022 6:39 PM CDT CNFL Blood (Blood, Venous) 10/25/2022 6:20 PM CDT 10/25/2022 6:23 PM CDT Rivera Brandt APRN, C.N.P., M.S.N. LAB ANITA Jaimes NON ADD-ON [address] [address], [address] [address] * (ABNORMAL) Comprehensive Metabolic Panel (10/25/2022 6:20 [...] CNFL Comment: Estimated GFR calculated using the 2021 CKD_EPI creatinine equation. Calcium, Total, P 9.7 [...] APRN C.N.P., M.S.N. LAB BLOO D ADD-ON [facility] [place] [address], [facility] [place] [address] * (ABNORMAL) CBC with Differential, Blood (10/25/2022 [...] 6:20 PM CDT 10/25/2022 6:23 PM CDT Mona Voss APRN.N.P., M.S.N. LAB BLOO D ADD-ON Performing Organization Address City/State/[facility] Co de Phone Number [facility] [address] [place] [id number], [facility] CNFL [facility] in [address] [address] documented in this encounter Visit Diagnoses Diagnosis [...] Duyen 10/25/22 at 1745, For 1 dose New [...] Duyen 10/25/22 at 1841, For 1 dose 184 (Given - Provid er: Izzy Santiago R.N.) NaCl 0.9 % bolus 1,000 mL 1,000 mL, intravenous, at 1,000 mL/hr, Administer over 1 Hours, Once, On Duyen 10/25/22 at 1745, For 1 dose 182 (New Bag - Prov ider: Izzy Santiago R.N.)1924 (Due: Stopped - Provider: Izzy Santiago R.N.) ondansetron (PF) injection 4 mg (ZOFRAN) (COMPLETED) 4 mg, intravenous, Once, On Duyen 10/25/22 at 1745, For 1 dose 1824 (Given - Provid er: Izzy Santiago R.N.) documented in this encounter Additional Health Concerns Assessment Noted Time PHQ-9 Depression Total Score: 21 05/31/ 012 10:33 AM CREW BOSS documented as of this encounter Care Teams Supervisor Electronics Inspection Relationship Specialty Start Date End Date Elsewhere, Pcp PCP - General Internal Medicine 06/26/22 documented as of this encounter
--- OUTSIDE RECORDS SUMMARY | 2023-04-19 10:43 | XMS_ITS | Encounter Summary ---
Author Name Unknown Organization [facility] Address [address] [place] [address] Care Team Providers Care Deployment Technician Name Role Phone Elsewhere, Pcp Primary Care Provider Unavailabl e Reason for Referral * Outpatient (Routine) - Authorized Specialty Diagnoses / Procedures Referred By Contact Referred To Contact Gastroenterology and Hepatology Jose Roberto Patterson M.D. [address] [place] [address] [facility] Referral ID Status Reason Start Date Expiration Date V isits Requested Visits Authorized [id number] Authorized 12/27/2022 12/26/2025 1 1 * Outpatient (Routine) - Authorized Specialty Diagnoses / Procedures Referred By Contac t Referred To Contact Diagnoses Pancreatitis Chronic (HCC) Procedures ERCP Jose Roberto Patterson M.D. [address] [place] [phone] [facility] Referral ID Status Reason Start Date Expiration Date V isits Requested Visits Authorized [id number] Authorized 12/27/2022 12/27/2023 1 1 * Outpatient (Routine) - Closed Specialty Diagnoses / Procedures Referred By Contac t Referred To Contact Urology Diagnoses Pancreatitis Chronic (HCC) Jose Roberto Patterson M.D. [address] [place] [phone] [facility] Referral ID Status Reason Start Date Expiration Date Visits Re quested Visits Authorized [id number] Closed 12/27/2022 12/27/2023 1 1 Scheduling Instructions Schedule with Dr. Andrew - not kidney stones, but pancreatic duct stones * Outpatient (Routine) - Closed Specialty Diagnoses / Procedures Referred By Olivia t Referred To Contact Pulmonary Medicine / Nicotine Dependence Diagnoses Pancreatitis Chronic (HCC) Jose Roberto Patterson M.D. [address] [place] [phone] [facility] Referral ID Status Reason Start Date Expiration Date Visits Re quested Visits Authorized [id number] Closed 12/27/2022 12/27/2023 1 1 * Outpatient (Routine) - Closed Specialty Diagnoses / Procedures Referred By Olivia t Referred To Contact Diagnoses Pancreatitis Chronic (HCC) Procedures Endoscopic ultrasound (EUS) Jose Roberto Patterson M.D. [address] [place] [phone] [facility] Referral ID Status Reason Start Date Expiration Date Visits Re quested Visits Authorized [id number] Closed 12/27/2022 12/27/2023 1 1 Reason for Visit * Appointment Request (Routine) - Closed Specialty Diagnoses / Procedures Referred By Contact Referred To Contact Gastroenterology and Hepatology Diagnoses Pancreatitis Chronic Recurrent (HCC) Referral ID Status Reason Start Date Expiration Date Visits Re quested Visits Authorized [id number] Closed 11/09/2022 11/09/2023 1 1 Encounter Details Date Type Department Care Team (Latest Contact Info) Description 12/27/2022 9:00 AM CDT Comprehensive Visit Division of Gastroenterology in [place], [place] [address] [place] [address] Jose Roberto Hays M.D. [address] [place] [address] Pancreatitis Chronic (HCC) (Primary Dx); Pain Abdominal [...] Patterson M.D. - 12/27/2022 9:00 AM CDT [facility] Outpatient Consultation NAME: Yary Prince [...] (Latest Contact Info) Description 04/29/2023 9:30 AM CHILDCARE ATTENDANT Appointment Division of Gastroenterology in [place], [place] [address] [place] [phone] Jose Roberto Patterson M.D. [address] [place] [phone] Shane Becerra M.D. [address] [place] [phone] Discharge Disposition: Home or Self Care 05/02/2023 Hospital Encounter Outpatient Surgery Unit in [place], [place] [address] [place] [phone] Luis Andrew M.D., M.P.H. [address] [place] [phone] Scheduled Orders Name Type Priority Associated Diagnoses Orde r Schedule ERCP GI Routine Pancreatitis Chronic (HCC) 1 Occurrences starting 12/27/2022 until 03/28/2024 Scheduled Procedures Name Priority Associated Diagnoses Date/Ti [...] Total Score: 21 05/31/ 012 10:33 AM CHILDCARE ATTENDANT documented as of this encounter Care Teams Deployment Technician Relationship Specialty Start Date End Date Elsewhere, Pcp PCP - General Internal Medicine 06/26/22 documented as of this encounter
--- OUTSIDE RECORDS SUMMARY | 2023-04-19 10:43 | XMS_ITS | Encounter Summary ---
Author Name Unknown Organization [facility] Address [address] [place] [address] Care Team Providers Care B2B Sales Professional Name Role Phone Elsewhere, Pcp Primary Care Provider Unavailabl e Reason for Visit * Reason Onset Date Comments Appt Request 12/27/2022 Encounter Details Date Type Department Care Team (Late st Contact Info) Description 12/27/2022 Clinical Communication Department of Urology in [place], [place] [address] [place] [phone] Luis Andrew M.D., M.P.H. [address] [place] [phone] Appt Request Social History Tobacco Use Types [...] your living situation today? I have a [facility] place to live 01/01/2023 Sex and Gender Information Value Date Recorded Sex Assigned at Female 01/01/2023 9:08 AM CDT Gender Identity Female 01/01/2023 9:08 AM CDT Sexual Orientation Straight 01/01/2023 9: 08 AM CDT documented as of this encounter Plan of Treatment Upcoming Encounters Date Type Department Care Team (Latest Contact Info) Description 04/29/2023 9:30 AM STEEL MOLDER Appointment Division of Gastroenterology in [place], [place] [address] [place] [address] Jose Roberto Patterson M.D. 200 [place] [phone] Shane Becerra M.D. 200 [place] [phone] Discharge Disposition: Home or Self Care 05/02/2023 Hospital Encounter Outpatient Surgery Unit in [place], [place] [address] [place] [address] Luis Andrew M.D., M.P.H. [address] [place] [phone] Scheduled Procedures Name Priority Associated Diagnoses Date/Ti me LITHOTRIPSY EXTRACORPOREAL S HOCK WAVE UNILATERAL Stone Pancreatic Duct documented as of this encounter Visit Diagnoses Not on filedocumented in this encounter Additional Health Concerns Assessment Noted Time PHQ-9 Depression Total Score: 21 012 10:33 AM STEEL MOLDER documented as of this encounter Care Teams B2B Sales Professional Relationship Specialty Start Date End Date Elsewhere, Pcp PCP - General Internal Medicine 06/26/22 documented as of this encounter
--- OUTSIDE RECORDS SUMMARY | 2023-04-19 10:43 | XMS_ITS | Encounter Summary ---
Author Name Unknown Organization [facility] Address [address] [place] [address] Care Team Providers Care Gis Programmer Name Role Phone Elsewhere, Pcp Primary Care Provider Unavailabl e Reason for Visit * Reason Onset Date Comments Pre-visit Intake 12/10/2022 Encounter Details Date Type Department Care Team (Latest Contact Info) Description 12/10/2022 3:45 PM CDT Clinical Communication Virtual Review in [address] [phone] Pre-visit Intake Social History Tobacco Use Types [...] (Latest Contact Info) Description 04/29/2023 9:30 AM TRANSPORT CORPS OFFICER Appointment Division of Gastroenterology in [place], [place] [address] [place] [address] Jose Roberto Patterson M.D. [address] [place] [phone] Shane Becerra M.D. [address] [place] [phone] Discharge Disposition: Home or Self Care 05/02/2023 Hospital Encounter Outpatient Surgery Unit in [place], [place] [address] [place] [address] Luis Andrew M.D., M.P.H. [address] [place] [phone] Scheduled Procedures Name Priority Associated Diagnoses Date/Ti me LITHOTRIPSY EXTRACORPOREAL S HOCK WAVE UNILATERAL Stone Pancreatic Duct documented as of this encounter Visit Diagnoses Not on filedocumented in this encounter Additional Health Concerns Assessment Noted Time PHQ-9 Depression Total Score: 21 012 10:33 AM TRANSPORT CORPS OFFICER documented as of this encounter Care Teams Gis Programmer Relationship Specialty Start Date End Date Elsewhere, Pcp PCP - General Internal Medicine 06/26/22 documented as of this encounter
--- OUTSIDE RECORDS SUMMARY | 2023-04-19 10:43 | XMS_ITS | Encounter Summary ---
Author Name Unknown Organization [facility] Address [address] [place] [address] Care Team Providers Care Industrial Machine System Technician Name Role Phone Elsewhere, Pcp Primary Care Provider Unavailabl e Reason for Referral * Outpatient (Routine) - Closed Specialty Diagnoses / Procedures Referred By Olivia gonzalez Referred To Contact Diagnoses Pancreatitis Chronic (HCC) Procedures DX Abdomen 4 Views DX Kidneys Ureters Bladder Jeanie Carter M.B.B.S., M.S. [address] [place] [phone] [facility] Referral ID Status Reason Start Date Expiration Date Visits Re quested Visits Authorized [id number] Closed 12/13/2022 12/13/2023 1 1 Encounter Details Date Type Department Care Team (Latest Contact Info) Description 12/12/2022 3:00 PM CDT Telemedicine Division of Gastroenterology in [place], [place] [address] [place] [address] Peewee Wilcox M.S.N., R.N. Pancreatitis Chronic (HCC) [...] Hepatology: Pancreas Clinic RN Pre-Visit. Patient contacted [facility] requesting on-campus appointment; pre-visit was scheduled following that request. Completed administrative pre-visit discussion to better understand patient goals and the needed patient itinerary for the requested on-site visit. This pre-visit does not establish a long-term relationship. This interview occurred via real-time audio/video technology by Francesco Mann., R.N. at [facility] to the patient in the patient's home. The information below is based on review of available medical records and a virtual conversation with the patient. History of Present Illness Ms. Prince is a 67 y.o. female who is being interviewed for a pre-visit encounter. Our records indicate that Ms. Prince is seeking an appointment at [facility] for chronic pancreatitis. Ms. Prince was previously seen in the Pancreas Clinic at [facility] in January 2011 for evaluation of pancreatitis. Her last evaluation at [facility] was with Debra Otto APRN, [facility] in December 2014.Ms. Prince has had abdominal pain since about 1999 and was first diagnosed with pancreatitis in 2006.She's had several admissions over the years for her recurrent abdominal pain. Over the last 6 months, she's had significant pain and notes she is not getting much help. She's been receiving care [facility] in [place], as well as at [facility]. Prior to the last 6months, she had [...] (Latest Contact Info) Description 04/29/2023 9:30 AM CHANGE MANAGEMENT ADMINISTRATOR Appointment Division of Gastroenterology in [place], [place] [address] [place] [phone] Jose Roberto Patterson M.D. [address] [place] [phone] Shane Becerra M.D. [address] [place] [phone] Discharge Disposition: Home or Self Care 05/02/2023 Hospital Encounter Outpatient Surgery Unit in [place], [place] [address] [place] [phone] Luis Andrew M.D., M.P.H. [address] [place] [phone] Scheduled Procedures Name Priority Associated Diagnoses Date/Ti me LITHOTRIPSY EXTRACORPOREAL S HOCK WAVE UNILATERAL Stone Pancreatic Duct documented as of this encounter Results * [...] Depression Total Score: 21 012 10:33 AM CHANGE MANAGEMENT ADMINISTRATOR documented as of this encounter Care Teams Industrial Machine System Technician Relationship Specialty Start Date End Date Elsewhere, Pcp PCP - General Internal Medicine 06/26/22 documented as of this encounter
--- OUTSIDE RECORDS SUMMARY | 2023-04-19 10:43 | XMS_ITS | Encounter Summary ---
Author Name Unknown Organization [facility] Address [address] [place] [address] Care Team Providers Care Leveler Helper Name Role Phone Elsewhere, Pcp Primary Care Provider Unavailabl e Reason for Visit * Reason Onset Date Comments Previsit Preparation 11/09/2022 Pancreas 11/09/2022 [facility] 11/09/2022 [facility] Encounter Details Date Type Department Care Team (Latest Contact Info) Description 11/09/2022 Clinical Communication Division of Gastroenterology in [place], [place] [address] [place] [address] Provider, Unknown Previsit Preparation; Pancreas; [facility] ([facility]/) [...] (Latest Contact Info) Description 04/29/2023 9:30 AM MANAGEMENT INFORMATION SYSTEMS DIRECTOR Appointment Division of Gastroenterology in [place], [place] [address] [place] [phone] Jose Roberto Patterson M.D. [address] [place] [phone] Shane Becerra M.D. [address] [place] [phone] Discharge Disposition: Home or Self Care 05/02/2023 Hospital Encounter Outpatient Surgery Unit in [place], [place] [address] [place] [phone] Luis Andrew M.D., M.P.H. [address] [place] [phone] Scheduled Procedures Name Priority Associated Diagnoses Date/Ti me LITHOTRIPSY EXTRACORPOREAL S HOCK WAVE UNILATERAL Stone Pancreatic Duct documented as of this encounter Visit Diagnoses Not on filedocumented in this encounter Additional Health Concerns Assessment Noted Time PHQ-9 Depression Total Score: 21 012 10:33 AM MANAGEMENT INFORMATION SYSTEMS DIRECTOR documented as of this encounter Care Teams Leveler Helper Relationship Specialty Start Date End Date Elsewhere, Pcp PCP - General Internal Medicine 06/26/22 documented as of this encounter
--- OUTSIDE RECORDS SUMMARY | 2023-04-19 10:44 | XMS_ITS | Encounter Summary ---
Author Name Unknown Organization [facility] Address [address] [place] [address] Care Team Providers Care Shoulder Pad Molder Name Role Phone Elsewhere, Pcp Primary Care Provider Unavailabl e Reason for Visit * Reason Comments Extremity Weakness Abdominal Pain * Auth/Cert (Routine) Specialty Diagnoses / Procedures Referred By Contac t Referred To Contact Diagnoses Weakness General Pain Left Upper Quadrant Procedures OBS Referral ID Status Reason Start Date Expiration Date Visits Re quested Visits Authorized [id number] 1 1 Encounter Details Date Type Department Care Team (Late st Contact Info) Description 10/23/2022 10:55 AM CDT - 10/24/2022 11:02 PM CDT Emergency [facility], [facility], Second Floor [address] [phone] Rivera Brandt APRN, C.N.P., M.S.N. [address] [place] [phone] Faustina Scott M.D. [address] [place] [phone] Weakness General (Primary Dx); Pain Left Upper [...] were not included. HOSPITAL DISCHARGE SUMMARY Hospital: [facility] Discharging provider: Fer Cardenas M.D. Primary [...] She had recently been evaluated in the [place] Emergency Department and had undergone evaluation for abdominal symptoms and was subseq uently discharged home. Since then, she had noticed increased weakness. Reported nausea. She was admitted to [facility] for hydration and pain control. On the [...] Neurologist for ongoing treatment of multiple sclerosis Head Pumper for ongoing treatment of recurrent pancreatitis Physical [...] Take 10 mg by mouth at bedtime. rkmwdgfmazjr-npharrrd-RT-lutein 400-250 mcg per chewable tablet Commonly known [...] Neurologist for ongoing treatment of multiple sclerosis Head Pumper for ongoing treatment of recurrent pancreatitis DISCHARGE [...] branch pattern. Intracranial: Right P2 segment of OVER THE ROAD DRIVER has multiple moderate grade stenoses (series 20 [...] normal distal ICA in accordance with [place] Symptomatic Carotid Endarterectomy Trial (NASCET). IMPRESSION: 1. [...] Units under the skin. 0 09/17/2022 02/19/2023 ltvxjzvxpels-lbfzmotz-UX -lutein (CENTRUM SILVER) 400-250 mcg per chewable [...] hours scheduled GI PPX:Pantoprazole Counseling was provided jejb-lr-qtpr at bedside regarding the plan of care . I personally spent 25 minutes in care of the patient today. Time includes both non face to face andface to face patient care. Patient indicated understanding and agreed with plan. Faustina Scott M.D. 31:29 PM CDT * Taya Bhakta L.S.W. - 10/24/2022 10:25 AM CDT SUBJECTIVE The doctor updated this Perinatal Director that the patient has concerns about paying for her medications. This Perinatal Director visited with the patient in person again. The patient explained that she does not have Medical Assistance. This Perinatal Director provided the patient with a Certain Populations [...] home with her . She accepted a [employer] Medical Assistance application and a Good RX [...] from no value to Daily at bedtime. pjgouuonwobc-iziq-QM-Ca-minerals 400 mcg (folic acid) tablet 1 tablet [...] is in a lot of pain. Dr. Sctot would like to restart gabapentin, add the [...] Notes: Pt stated not taking, unable to lemon picker due to financial reasons. donepeziL (ARICEPT) 5 [...] Take 10 mg by mouth at bedtime. ybcnevysffnf-dexgykcw-RP-lutein (CENTRUM SILVER) 400-250 mcg per chewable tablet [...] She was seen in the ED in [place] for the same abdominal ,had a workup [...] of plan of care, chart review, and uaam-nb-qttm interview documented in this encounter Consult Notes [...] treat - obs Onset Date: 10/23/22 Payor: [facility] / Plan: [facility] MEDICARE COMPLETE / Product Type: PPO / [...] thus far 100% since admitted, unknown intakes SKIP LOAD DRIVER as pt is unavailable. Will send Glucerna [...] Calculations: 60 kg BMI (Calculated): 22.7 kg/m?? [place] Body Weight (Calculated) : 54.6 kg Weight [...] Onset Date: 10/23/22 Payor: [employer] / Plan: [facility] MEDICARE COMPLETE / Product Type: PPO / [...] Function/Occupational Profile: Prior Mobility/Functional Transfers Level of Varnell: Independent Previous Transfer/Mobility Assistance Comments: She has [...] Activity Level: Answer: Up with Assistance 10/23/22 2064 OBJECTIVE Measures - Tools AM-PAC Activity: How [...] issue. She reports working to get a [employer] case management social worker. She is alsolooking into getting assistance with [...] into observation from the Emergency Department for [facility]. SOCIAL HISTORY Family / Household: The patient is to [place]. They have two daughters, Estrella and Xiomy. They have two grandchildren. The patient's daughter, Xiomy lives next door. Spirituality / Uatsdin / Culture: No History: No Employment: The [...] contact a private cleaning company or a hatchery attendant home care agency regarding cleaning assistance. [...] patient understands that she could arrange a hatchery attendant home care agency or a private cleaning company. The patient voiced a concern about paying privately for cleaning assistance. The patient was encouraged to talk to her family about cleaning assistance. Coping Skills/Strengths The patient has family support. ASSESSMENT / PLAN DISCUSSION This Perinatal Director talked to the patient about discharge planning. She stated that her goal is to return home and her family could provide transportation. The patient inquired about cleaning assistance. She understands that she could arrange a hatchery attendant home care agency or a private cleaning company and pay privately. The patient was also encouraged to talk to her family about assisting with cleaning. IMPRESSION The patient is an 67 year old woman who is in observation for [facility]. She made eye contact, was [...] she is on the mend. Patient put integration manager light and asked floor charge nurse to [...] wants to go home. Patient communicated with integration manager record changer (Dr. Cardenas). Primary RN went into room to implement record changer's recommendations and patient still continues to state [...] loss. Patient had BM this morning with RESTORATIVE COORDINATOR. When nurse asked if she had one, [...] Saturday. Shewas seen in the ED in [place] and had abdominal workup done and subsequently [...] flare-up. Plan: After discussion with neuro in [place], plan for admission for hydration and pain [...] Present in Two Limbs 8. Sensory Loss: Nrcf-dd-Ktypqgks Sensory Loss 9. Best Language: No Aphasia 10. Dysarthria: Yeqi-qd-Sedictaf Dysarthria 11. Extinction and Inattention: No Abnormality NIH Stroke Scale: 4 ED Course as of 10/23/22 1308 Tue Oct 23, 2022 1236 Reach out to [facility] for neuro consult. Awaiting return call. 1259 [...] slurred according to the Pt was at [facility] on Saturday, but they stated nothing was done Izzy Santiago R.N. 10/23/22 1101 Izzy Santiago R.N. 10/23/22 1102 documented in this encounter Plan of Treatment Upcoming Encounters Date Type Department Care Team (Latest Contact Info) Description 04/29/2023 9:30 AM BUSINESS INTERN Appointment Division of Gastroenterology in [place], [place] [address] [place] [phone] Jose Roberto Patterson M.D. [address] [place] [phone] Shane Becerra M.D. [address] [place] [phone] Discharge Disposition: Home or Self Care 05/02/2023 Hospital Encounter Outpatient Surgery Unit in [place], [place] [address] [place] [phone] Luis Andrew M.D., M.P.H. [address] [place] [address] Scheduled Procedures Name Priority Associated Diagnoses Date/Ti [...] CDT Generic Rals LAB POCT ORDERABLES- MANUAL [facility] [address] [place] [address], [place] [facility] in [address] [address] * (ABNORMAL) Glucose, POCT (10/24/2022 4:47 PM CDT) Glucose, POCT, B 303(H) 70 - 140 mg/dL 10/24/2022 4:47 PM CDT CNFL Blood 10/24/2022 4:47 PM CDT 10/24/2022 5:00 PM CDT Generic [facility]als LAB POCT ORDERABLES- MANUAL [address] [address], [facility] in [address] [address] * (ABNORMAL) Glucose, POCT (10/24/2022 11:22 AM CDT) Glucose, POCT, B 282(H) 70 - 140 mg/dL 10/24/2022 11:22 AM CDT CNFL Blood 10/24/2022 11:2 2 AM CDT 10/24/2022 11:29 AM CDT Generic [facility] LAB POCT ORDERABLES- MANUAL [address] [address], [facility] in [address] [address] * (ABNORMAL) Glucose, POCT (10/24/2022 7:45 AM CDT) Glucose, POCT, B 184(H) 70 - 140 mg/dL 10/24/2022 7:45 AM CDT CNFL Blood 10/24/2022 7:45 AM CDT 10/24/2022 7:54 AM CDT Generic [facility] LAB POCT ORDERABLES- MANUAL [facility] [address] [place] [address], [address] [address] * (ABNORMAL) CBC with Differential, Blood (10/24/2022 7:18 AM CDT) [facility] Hemoglobin 13.5 11.6 - 15.0 g/dL 10/24/2022 [...] CDT Faustina Scott M.D. LAB BLOOD ADD-ON [facility] [address] [place] [address], [facility] CNFL [facility] in [address] [address] * (ABNORMAL) Basic Metabolic Panel (10/24/2022 7:18 [...] CDT Faustina Scott M.D. LAB BLOOD ADD-ON [facility] [address] [place] [address], [facility] CNFL [facility] in [address] [address] * (ABNORMAL) Glucose, POCT (10/23/2022 8:18 PM CDT) Glucose, POCT, B 258(H) 70 - 140 mg/dL 10/23/2022 8:18 PM CDT FL Blood 10/23/2022 8:18 PM CDT 10/23/2022 8:26 PM CDT Generic [facility] LAB POCT ORDERABLES- MANUAL [address] [address], [address] [address] * (ABNORMAL) Glucose, POCT (10/23/2022 6:21 PM CDT) Glucose, POCT, B 144(H) 70 - 140 mg/dL 10/23/2022 6:21 PM CDT [facility] Blood 10/23/2022 6:21 PM CDT 10/23/2022 6:28 PM CDT Generic [facility] LAB POCT ORDERABLES- MANUAL [address] [address], [facility] in [address] [address] * (ABNORMAL) Glucose, POCT (10/23/2022 4:45 PM CDT) Glucose, POCT, B 185(H) 70 - 140 mg/dL 10/23/2022 4:45 PM CDT [facility] Blood 10/23/2022 4:45 PM CDT 10/23/2022 4:52 PM CDT Generic [facility] LAB POCT ORDERABLES- MANUAL [address] [address], [facility] in [address] [address] * (ABNORMAL) Glucose, POCT (10/23/2022 3:11 PM CDT) Glucose, POCT, B 242(H) 70 - 140 mg/dL 10/23/2022 3:11 PM CDT CNFL Blood 10/23/2022 3:11 PM CDT 10/23/2022 3:18 PM CDT Generic [facility] LAB POCT ORDERABLES- MANUAL Performing Organization Address [facility] Co de Phone Number [facility] [address] [place] [address], [facility] CNFL [facility] in [address] [address] * (ABNORMAL) Bacterial Culture, Aerobic + Susceptibility, Urine (10/23/2022 1:07 PM CDT) [facility] Urine Culture Mixed microbiota (A) 10/24/2022 4:07 PM CDT ECLR Urine (Urine, Midstream) 10/23/2022 1:07 PM CDT 10/23/2022 8:45 PM CDT Comment:Specimen Source Site : Urine Rivera Brandt APRN C.N.P., M.S.N. LAB MICR OBIOLOGY - GENERAL ORDERABLES [facility] [address] [place] [address], [facility] ECLR [facility] [address] * (ABNORMAL) Urinalysis with Microscopic: Urine, Midstream [...] 8.0 10/23/2022 1:10 PM CDT CNFL Specific [place] 1.010 1.001 - 1.035 10/23/2022 1:10 PM [...] CDT 10/23/2022 1:07 PM CDT Rivera Brandt APRN, C.N.P., M.S.N. LAB URIN E ORDERABLES [facility] [address] [place] [address], [facility] CNFL [facility] in [address] [address] * US Gallbladder and or Biliary Ducts [...] Neck, Neuroradiolog y RST LOS, Neuroradiology ARZ LOS, Neuroradiology FLA LOS N/A Computed Tomography 10/23/2022 [...] branch pattern. Intracranial: Right P2 segment of OVER THE ROAD DRIVER has multiple moderate grade stenoses (series 20 [...] normal distal ICA in accordance with [place] Symptomatic Carotid Endarterectomy Trial (NASCET). Procedure Note Madhav Silver M.D. - 10/23/2022 EXAM: CT HEAD NECK [...] branch pattern. Intracranial: Right P2 segment of OVER THE ROAD DRIVER has multiple moderate grade stenoses(series 20 images [...] the normal distalICA in accordance with [place] Symptomatic Carotid Endarterectomy Trial (NASCET). IMPRESSION: 1. Bilateral P2 segments have moderate grade stenoses. 2. Arteries of head and neck otherwise have atheroscleroticcalcifications without additional significant stenosis. 3. Negative for acute infarct by CT. 4. Known multiple sclerosis. 5. Multiple pulmonary groundglass opacities are suspicious forinfection. Rivera Brandt APRN, C.N.P., M.S.N. IMG CT P ROCEDURES * Lactate, POCT (10/23/2022 11:50 AM CDT) Pathologist [facility] Lactate, POCT 0.72 0.50 - 2.20 mmol/L 10/23/2022 11:50 AM CDT CNFL Blood 10/23/2022 11:5 0 AM CDT 10/23/2022 11:56 AM CDT Generic [facility]als LAB POCT ORDERABLES - DEVICE Performing Organization Address [facility]/[place] [address] * CRP (C-Reactive Protein) (10/23/2022 11:43 AM CDT) Pathologist [facility] C-Reactive Protein (CRP), P 3.3 <5.0 mg/L 10/23/2022 4:27 PM CDT [facility] Blood (Blood, Venous) 10/23/2022 11:43 AM CDT 10/23/2022 11:44 AM CDT Sandra Voss APRNN.Maureen, M.S.N. LAB BLOO D ADD-ON Performing Organization Address City/[facility]/[place] [address], [facility] in [address] [address] * Hepatic Function Panel (10/23/2022 11:43 AM [...] Voss APRN.N.P., M.S.N. LAB BLOO D ADD-ON [facility] [address] [place] [address], [facility] in [address] [address] * (ABNORMAL) Lipase (10/23/2022 11:43 AM CDT) Lipase, P 63(H) 13 - 60 U/L 10/23/2022 4: 27 PM CDT CNFL Blood (Blood, Venous) 10/23/2022 11:43 AM CDT 10/23/2022 11:44 AM CDT Rivera Brandt APRN, C.N.P., M.S.N. LAB BLOO D ADD-ON [facility] [address] [place] [address], [facility] CNFL [facility] in [address] [address] * (ABNORMAL) BMP with Hgb/Hct, POCT (10/23/2022 [...] by t he ancillary. Blood (Blood, Venous) 10/23/2022 11:42 AM CDT 10/23/2022 11:44 AM CDT Rivera Brandt APRN, C.N.P., M.S.N. LAB POCT ORDERABLES - DEVICE [facility] [address] [place] [address], [facility] CN[facility] [place] [address] * (ABNORMAL) CBC with Differential, Blood (10/23/2022 [...] CDT 10/23/2022 11:44 AM CDT Sandra Voss APRNNAubrie., M.S.N. LAB BLOO D ADD-ON [facility] [address] [place] [address], [facility] CN[facility] in [address] [address] documented in this encounter Visit Diagnoses Diagnosis [...] Given 10/23/2022 8:40 PM CDT 10 mg uehubibfrxpb-nplh-XM-Ca-mineral s 400 mcg (folic acid) tablet 1 tablet (THERAPEUTIC-M) 1 tablet, oral, Daily, First dose on Sat10/24/22 at 0900 Given 10/24/2022 9:56 AM CDT 1 tablet NaCl 0.9 % bolus 1,000 mL 1,000 mL, intravenous, at 1,000 mL/hr, Administer over 1 Hours, Once, On Sat10/23/22 at 1121, For 1 dose New 10/23/2022 11:47 AM CDT 1,000 mL 1000 [...] sources 1616 (Given - Provider: Lulú Christensen R.N.)2039 (Given - Provider: Mariela Argeullo, R.N.) 0740 (Given - Provider: Roya Nicholson [...] 1730 1834 (Given - Provider: Ivone Mcintosh RCarlosN.) 0109 (Given - Provider: Mariela Arguello, R.N.)1000 (Given - Provider: Roya Nicholson R.N.)1754 (Given - Provider: Roya Nicholson R.N.) DULoxetine DR capsule 30 mg (CYMBALTA) 30 mg, oral, Every morning, First dose on Sat10/24/22 at 0900, See tube feeding guidelines for tube feeding administration instructions. 0956 (Given - Provid er: Roya Nicholson [...] dose 1146 (Given - Provider: Izzy Santiago RCarlosN.) fentaNYL injection 25 mcg (SUBLIMAZE) 25 mcg, intravenous, Once, On Sat10/23/22 at 1221, For 1 dose 1308 (Not Given - Provider: Izzy Santiago RIrving. - Reason: Patient not available) gabapentin capsule 300 mg (NEURONTIN) 300 mg, oral, 2 times daily, First dose on Sat10/23/22 at 2100 2040 (Given - Provider: Mariela Arguello, R.N.) 0956 (Given - Provider: Roya Nicholson R.N.)2040 (Given - Provider: Erin Grove R.N.) glipiZIDE [...] 2040 (Given - Provider: Erin Grove R.N.) seurxistgbia-nljk-CC-Ca-mine rals 400 mcg (folic acid) tablet 1 [...] for a final concentration of 4 mg/mL. 183 (Given - Provider: Ivone Mcintosh R.N.) QUEtiapine [...] 2053 (Not Given - Provider: Mariela Arguello, RCarlosNCralos - Reason: Order parameters not met) 955 (Given - Provider: Roya Nicholson R.N.)2043 (Not [...] R.N.)1349 (Rate/Dose Verify - Provider: Roya Nicholson R.N.)213 (New Bag - Provider: Erin Grove R.N.)2220 (Stopped - Provider: Erin Grove R.N.) PRN Medication Order 10/22/2022 10/23/2022 10/24/[address] tablet 325 mg 325 mg, [...] Sat10/23/22 at 1450 1721 (Given - Provider: Eladio RennerN.) ondansetron ODT disintegrating tablet 4 mg (ZOFRAN-ODT) [...] 1450 1601 (Given - Provider: Lulú Christensen R.N.) 0112 (Given - Provider: Yury ArguelloSCarlosN., R.N.)0623 (Given - Provider: Mariela Arguello, R.N.)1350 (See Alternative - Provider: Roya Nicholson RCarlosN.)2129 (See Alternative - Provider: Erin Grove RCarlosN.) oxyCODONE IR tablet 5 mg (ROXICODONE)(Linked Group 1) 5 mg, oral, Every 4 hours PRN, moderate pain or score 4-6 of 10, Starting on Sat10/23/22 at 1450 1601 (See Alternative - Provider: Lulú Christensen R.N.) 0112 (See Alternative - Provider: Mariela Arguello, R.N.)0623 (See Alternative - Provider: Kira A Biwer, M.S.N., R.N.)1350 (Given - Provider: Roya Nicholson R.N.)2129 (Given - Provider: Erin Grove R.N.) polyethylene [...] dose 1203 (Given - Provider: Dany Davis(R)(CT), Dany(R)) sodium chloride 0.9 % injection 10 mL 10 mL, intravenous, As needed, line care, Starting on Sat10/23/22 at 1124 1203 (Given - Provider: Dany Davis(R)(CT), Dany(R)) sodium chloride 0.9 % injection 10 mL [...] Depression Total Score: 21 012 10:33 AM BUSINESS INTERN documented as of this encounter Care Teams Shoulder Pad Molder Relationship Specialty Start Date End Date Elsewhere, Pcp PCP - General Internal Medicine 06/26/22 documented as of this encounter
--- OUTSIDE RECORDS SUMMARY | 2023-04-19 10:44 | XMS_ITS | Clinical Summary ---
Author Name Unknown Organization [facility] Address [address] [address] Care Team Providers Care Shoe Treer Name Role Phone Lew Grewal MD Primary Care Provider [phone] Source Comments You are receiving this document as you are listed as the primary care provider,follow-up provider, or the patient has been referred to you for consultation.This is in compliance with the Medicare andDoctors Hospitalcaid EHR Incentive Program,which states Providers who transition their patient to another setting of careor provider of care or refers their patient to another provider of care shouldprovide summary care record for each transition of care or referral. [facility] Allergies Active Allergy Reactions Criticality Noted Date [...] age to complete this topic Care Teams Shoe Treer Relationship Specialty [place] [address] [place] [address] CHRISTINA HUGHES [address] PCP - General Family Practice 12/10/18
--- OUTSIDE RECORDS SUMMARY | 2023-04-19 10:44 | XMS_ITS | Encounter Summary ---
Author Name Unknown Organization [facility] Address [address] [place] [address] Care Team Providers Care General Teller Name Role Phone Elsewhere, Pcp Primary Care Provider Unavailabl e Reason for Visit * Reason Comments Abdominal Pain 67 year old female r eturns to ER with continued complaints of left upper quad pain Encounter Details Date Type Department Care Team (Late st Contact Info) Description 06/27/2022 6:06 PM CDT - 06/27/2022 7:44 PM CDT Emergency [facility] [address] [facility] [address] [place] [address] Tj Enriquez, P.A.-C. [address] [place] [phone] Abdominal Pain (Primary Dx); Pancreatitis Chronic (HCC) [...] sent through Care Everywhere. * Chronic Pancreatitis (Romansh) documented in this encounter Medications at Time [...] is a 67 y.o. female presents to [facility] requesting evaluation for abdominal pain. 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 [address] [place] [phone] Shane Becerra M.D. [address] [place] [phone] Discharge Disposition: Home or Self Care 05/02/2023 Hospital Encounter Outpatient Surgery Unit in [place], [place] [address] [place] [address] Luis Andrew M.D., M.P.H. [address] [place] [address] Scheduled Procedures Name Priority Associated Diagnoses Date/Ti [...] - 2.2 mmol/L 06/27/2022 7:15 PM CDT [place] Blood (Blood, Venous) 06/27/2022 6:48 PM CDT 06/27/2022 6:49 PM CDT Tj Enriquez P.A.-C. LAB BLOOD NON ADD- ON [facility] [address] [place] [address], [place] [facility] in [address] [address] * Amylase, Total (06/27/2022 6:48 PM CDT) Amylase, Total, P 100 28 - 100 U/L 06/27/2022 7:17 PM CDT CNFL Blood (Blood, Venous) 06/27/2022 6:48 PM CDT 06/27/2022 6:49 PM CDT Tj Enriquez P.A.-C. LAB BLOOD ADD-ON [facility] [address] [place] [address], [facility] [address] * Lipase (06/27/2022 6:48 PM CDT) Pathologist [facility] Lipase, P 58 13 - 60 U/L 06/27/2022 7: 17 PM CDT CNFL Blood (Blood, Venous) 06/27/2022 6:48 PM CDT 06/27/2022 6:49 PM CDT Tj Enriquez P.A.-C. LAB BLOOD ADD-ON Performing Organization Address City/[facility]/ZIP Co de Phone Number [facility] [address] [place] [address], [facility] [place] [address] * (ABNORMAL) Comprehensive Metabolic Panel (06/27/2022 6:48 [...] P.A.-C. LAB BLOOD ADD-ON Performing Organization Address City/State/[facility] Co de Phone Number [facility] [address] [place] [address], [facility] CNFL [facility] in [address] [address] * (ABNORMAL) CBC with Differential, Blood (06/27/2022 6:48 PM CDT) [facility] Hemoglobin 14.1 11.6 - 15.0 g/dL 06/27/2022 [...] CDT Tj Enriquez P.A.-C. LAB BLOOD ADD-ON [facility] [address] [place] [address] [address] [place] [address], [facility] CNFL [facility] in [address] [address] documented in this encounter Visit Diagnoses Diagnosis [...] due to lack of additional analgesic benefit. 185 (Given - Provid er: Stacie Handy R.N.) NaCl 0.9 % bolus 1,000 mL (COMPLETED) 1,000 mL, intravenous, at 1,000 mL/hr, Administer over 1 Hours, Once, On Sat06/27/22 at 1835, For 1 dose 185 (New Bag - Prov ider: Stacie Handy R.N.)192 (Stopped - Provider: Brittany Yusuf R.N.) ondansetron [...] Depression Total Score: 21 012 10:33 AM SUPPRESSION CREW LEADER documented as of this encounter Care Teams General Teller Relationship Specialty Start Date End Date Elsewhere, Pcp PCP - General Internal Medicine 06/26/22 documented as of this encounter
--- OUTSIDE RECORDS SUMMARY | 2023-04-19 10:44 | XMS_ITS | Encounter Summary ---
Author Name Unknown Organization [facility] Address [address] [place] [address] Care Team Providers Care Surgical Nurse Practitioner Name Role Phone Elsewhere, Pcp Primary Care Provider Unavailabl e Reason for Referral * Outpatient (Routine) - Authorized Specialty Diagnoses / Procedures Referred By Olivia t Referred To Contact Emergency Medicine Diagnoses Pancreatitis Acute (HCC) Rivera Brandt APRN, C.N.P., M.S.N. [address] [place] [phone] [facility] Region Referral ID Status Reason Start Date Expiration Date V isits Requested Visits Authorized [id number] Authorized 06/26/2022 06/25/2025 1 1 Reason for Visit * Reason Comments Abdominal Pain Chest Pain Upper abdominal pain and chest pain. Encounter Details Date Type Department Care Team (Late st Contact Info) Description 06/26/2022 4:59 PM CDT - 06/26/2022 8:07 PM CDT Emergency [facility] [address] [place] [phone] Madhav Basurto APRN, C.N.P., D.N.P. [address] [place] [phone] Rivera Brandt APRN C.N.P., M.S.N. [address] [place] [phone] Pancreatitis Acute (HCC) (Primary Dx); Colitis Discharge [...] sent through Care Everywhere. * Acute Pancreatitis [id number] (Filipino) * Colitis (Filipino) documented in this encounter Medications at Time [...] PM CDT Care of patient transferred to al by Madhav Basurto CNP. Disposition pending CT. [...] MD06/26/2022 6:54 PM Central Time ([place] & [place]) Final Diagnoses: as of 06/26/221922 Pancreatitis Acute [...] left upper quadrants. 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 Evaluation and management will include: CBC with [...] Pending but anticipate discharge Madhav Basurto, DNP, RECHARGER, TIE IN MACHINE OPERATOR-C, AGACNP-BC, ENP-C Emergency Medicine Madhav Basurto, C.N.P. 06/26/222028 documented in this encounter Plan of Treatment Upcoming Encounters Date Type Department Care Team (Latest Contact Info) Description 04/29/2023 9:30 AM LIFE SCIENCE TEACHER Appointment Division of Gastroenterology in [place], [place] [address] [place] [phone] Jose Roberto Patterson M.D. [address] [place] [phone] Shane Becerra M.D. [address] [place] [phone] Discharge Disposition: Home or Self Care 05/02/2023 Hospital Encounter Outpatient Surgery Unit in [place], [place] [address] [place] [phone] Luis Andrew M.D., M.P.H. [address] [place] [phone] Scheduled Procedures Name Priority Associated Diagnoses Date/Ti [...] concordant with preliminary vRad report. Sandra Tan APRNNAubrie., D.N.P. IMG CT PROCEDURES * (ABNORMAL) Comprehensive [...] D.N.P. LAB BLOOD ADD-ON Performing Organization Address [facility] [place] [address], [place] [address] * Lactate (06/26/2022 5:37 PM CDT) Lactate, P 2.0 0.5 - 2.2 mmol/L 06/26/2022 6:01 PM CDT CNFL Blood (Blood, Venous) 06/26/2022 5:37 PM CDT 06/26/2022 5:40 PM CDT Madhav Basurto APRN, Mona.N.P., D.N.P. LAB BLOOD NON ADD-ON Performing Organization Address [facility] [place] [address], [place] [address] * (ABNORMAL) Lipase (06/26/2022 5:37 PM CDT) Lipase, P 84(H) 13 - 60 U/L 06/26/2022 6: 06 PM CDT CNFL Blood (Blood, Venous) 06/26/2022 5:37 PM CDT 06/26/2022 5:40 PM CDT Mona Tan APRN.N.P., D.N.P. LAB BLOOD ADD-ON [facility] [address] [place] [address], [facility] CN[facility] [place] in [address] [address] * (ABNORMAL) CBC with Differential, Blood (06/26/2022 [...] Basurto APRN, C.N.P., D.N.P. LAB BLOOD ADD-ON [facility] [address] [place] [phone], [facility] CN[facility] [place] in [address] [address] documented in this encounter Visit Diagnoses Diagnosis [...] 174 (Given - Provid er: Kendall Masters RCarlosN.) ketorolac injection 15 mg (TORADOL) (COMPLETED) 15 [...] Sat06/26/22 at 1725, For 1 dose 174 (New Bag - Prov ider: Eladio BustillosN.)1903 (Stopped - Provider: Deedee Moseley R.N.) NaCl 0.9 % bolus 1,000 mL (COMPLETED) 1,000 mL, intravenous, at 1,000 mL/hr, Administer over 1 Hours, Once, On e 06/26/22 at 1814, For 1 dose 1902 (New Bag - Prov ider: Deedee Moseley R.N.)194 (Stopped - Provider: Deedee Moseley R.N.) ondansetron (PF) injection 4 mg (ZOFRAN) (COMPLETED) 4 mg, intravenous, Once, On e 06/26/22 at 1725, For 1 dose 173 (Given - Provid er: Kendall Masters R.N.) oxyCODONE IR tablet 5 mg (ROXICODONE) (COMPLETED) 5 mg, oral, Once, On Sat06/26/22 at 1920, For 1 dose 194 (Given - Provid er: Deedee Moseley R.N.) sodium chloride 0.9 % flush 78 mL (COMPLETED) 78 mL, intravenous, Once, On e 06/26/22 at 1804, For 1 dose 182 (Given - Provid er: Marito Wright, R.T.(R)(CT), R.T.(R)) sodium chloride 0.9 % [...] er: Somo Wright, R.T.(R)(CT), R.T.(R) - Comment: [phone]) documented in this encounter Additional Health Concerns Assessment Noted Time PHQ-9 Depression Total Score: 21 012 10:33 AM LIFE SCIENCE TEACHER documented as of this encounter Care Teams Surgical Nurse Practitioner Relationship Specialty Start Date End Date Elsewhere, Pcp PCP - General Internal Medicine 06/26/22 documented as of this encounter
--- OUTSIDE RECORDS SUMMARY | 2023-04-19 10:44 | XMS_ITS | Encounter Summary ---
Author Name Unknown Organization [facility] Address [address] [place] [address] Care Team Providers Care Personal Investment Adviser Name Role Phone Elsewhere, Pcp Primary Care Provider Unavailabl e Reason for Visit * Reason Comments Abdominal Pain * Auth/Cert (Routine) Specialty Diagnoses / Procedures Referred By Contac t Referred To Contact Diagnoses Pancreatitis Acute (HCC) Pancreatitis Chronic Recurrent (HCC) Abdominal Pain Procedures OBS Referral ID Status Reason Start Date Expiration Date Visits Re quested Visits Authorized [id number] 1 1 Encounter Details Date Type Department Care Team (Late st Contact Info) Description 09/06/2022 12:12 PM CDT - 09/08/2022 11:39 AM CDT Emergency [facility] [place], Second Floor [address] [place] [phone] Madhav Basurto APRN, C.N.P., D.N.P. [address] [place] [phone] Lincoln Branch M.D. [address] [place] [phone] Pancreatitis Acute (HCC) (Primary Dx); Pancreatitis [...] diet. Let your doctor or registered dietitian folder hand (RDN) know if you lose weight while [...] [place]field Lead Dietitian Clinical Nutrition Office Email: [email or web address] [address] [place] [address] * Attachments The following attachments cannot be sent through Care Everywhere. * Pancreatitis (Burkinan) documented in this encounter Medications at Time [...] loss is apparent and oral intake poor CANCER REGISTRY COORDINATOR due to pain. BGs found critically high [...] 58 kg Usual Body Weight: 75 kg [place] Body Weight (Calculated) : 54.6 kg Adjusted [...] QI(U) Negative Bilirubin Negative pH 6.0 Specific [place] 1.010 Urobilinogen 0.2 Glucose, POCT Collection Time: [...] (ROXICODONE) Stopped Accu-Chek Guide Me Glucose [facility] [place]u-Chek Guide test strips DULoxetine (CYMBALTA) 30 [...] Near baseline #4 Diabetes Mellitus Type 2 ([facility]) Plan for glycemic monitoring and insulin sliding [...] right upper quadrant. 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 [place] hospitalist in [place], he does accept the patient. I believe [...] Prescriptions None FOLLOW UP Madhav Basurto, ARIANE, BI TECHNICAL LEAD, ACCOUNTING/FINANCE TUTOR-C, AGACNP-BC, ENP-C Emergency Medicine Madhav Basurto APRN, [...] (Latest Contact Info) Description 04/29/2023 9:30 AM PLANT PHYSIOLOGY TEACHER Appointment Division of Gastroenterology in [place], [place] [address] [place] [phone] Jose Roberto Patterson M.D. [address] [place] [phone] Shane Becerra M.D. [address] [place] [phone] Discharge Disposition: Home or Self Care 05/02/2023 Hospital Encounter Outpatient Surgery Unit in [place], [place] [address] [place] [phone] Luis Andrew M.D., M.P.H. [address] [place] [phone] Scheduled Procedures Name Priority Associated Diagnoses Date/Ti [...] CDT Generic Rals LAB POCT ORDERABLES- MANUAL [address] [address], [facility] in [address] [address] * (ABNORMAL) Glucose, POCT (09/08/2022 2:01 AM CDT) Glucose, POCT, B 226(H) 70 - 140 mg/dL 09/08/2022 2:01 AM CDT [facility] Blood 09/08/2022 2:01 AM CDT 09/08/2022 2:08 AM CDT Generic Rals LAB POCT ORDERABLES- MANUAL [address] [address], [facility] in [address] [address] * (ABNORMAL) Glucose, POCT (09/07/2022 9:24 PM CDT) Glucose, POCT, B 313(H) 70 - 140 mg/dL 09/07/2022 9:24 PM CDT [facility] Blood 09/07/2022 9:24 PM CDT 09/07/2022 9:48 PM CDT Generic Rals LAB POCT ORDERABLES- MANUAL [address] [address], [facility] in [address] [address] * (ABNORMAL) Glucose, POCT (09/07/2022 8:23 PM CDT) Glucose, POCT, B 287(H) 70 - 140 mg/dL 09/07/2022 8:23 PM CDT CNFL Blood 09/07/2022 8:23 PM CDT 09/07/2022 8:43 PM CDT Generic [facility]als LAB POCT ORDERABLES- MANUAL [address] [address], [address] [address] * (ABNORMAL) Glucose, POCT (09/07/2022 4:46 PM CDT) Glucose, POCT, B 175(H) 70 - 140 mg/dL 09/07/2022 4:46 PM CDT [facility] Blood 09/07/2022 4:46 PM CDT 09/07/2022 5:01 PM CDT Generic [facility]als LAB POCT ORDERABLES- MANUAL [address] [address], [facility] in [address] [address] * (ABNORMAL) Glucose, POCT (09/07/2022 11:33 AM CDT) Glucose, POCT, B 229(H) 70 - 140 mg/dL 09/07/2022 11:33 AM CDT CNFL Blood 09/07/2022 11:3 3 AM CDT 09/07/2022 11:43 AM CDT Generic Rals LAB POCT ORDERABLES- MANUAL [facility] [address] [place] [address], [address] [address] * (ABNORMAL) Glucose, POCT (09/07/2022 7:57 AM CDT) Glucose, POCT, B 311(H) 70 - 140 mg/dL 09/07/2022 7:57 AM CDT [facility] Blood 09/07/2022 7:57 AM CDT 09/07/2022 8:07 AM CDT Generic Rals LAB POCT ORDERABLES- MANUAL [facility] [address] [place] [address], [address] [address] * (ABNORMAL) Magnesium (09/07/2022 6:54 AM CDT) Magnesium, P 1.5(L) 1.7 - 2.3 mg/dL 09/07/2022 8:10 AM CDT [facility] Blood (Blood, Venous) 09/07/2022 6:54 AM CDT 09/07/2022 7:06 AM CDT Lincoln Branch M.D. LAB BLOOD ADD-ON [facility] [address] [place] [address], [address] [address] * (ABNORMAL) Comprehensive Metabolic Panel (09/07/2022 6:54 [...] CDT Lincoln Branch M.D. LAB BLOOD ADD-ON [facility] [address] [place] [address], [facility] CNFL [facility] in [address] [address] * (ABNORMAL) CBC with Differential, Blood (09/07/2022 [...] CDT Lincoln Branch M.D. LAB BLOOD ADD-ON [address] [address], [address] [address] * Lipase (09/07/2022 6:54 AM CDT) Lipase, P 38 13 - 60 U/L 09/07/2022 8: 10 AM CDT CNFL Blood (Blood, Venous) 09/07/2022 6:54 AM CDT 09/07/2022 7:06 AM CDT Lincoln Branch M.D. LAB BLOOD ADD-ON Performing Organization Address City/[facility]/ZIP Co de Phone Number [address] [address], [address] [address] * Glucose, POCT (09/06/2022 8:23 PM CDT) Glucose, POCT, B 125 70 - 140 mg/dL 09/06/2022 8:23 PM CDT [place] Blood 09/06/2022 8:23 PM CDT 09/06/2022 8:31 PM CDT Generic Rals LAB POCT ORDERABLES- MANUAL [address] [address], [address] [address] * (ABNORMAL) Glucose, POCT (09/06/2022 4:51 PM CDT) Glucose, POCT, B 319(H) 70 - 140 mg/dL 09/06/2022 4:51 PM CDT CNFL Blood 09/06/2022 4:51 PM CDT 09/06/2022 5:04 PM CDT Generic Rals LAB POCT ORDERABLES- MANUAL [facility] [address] [place] [address], [facility] in [address] [address] * (ABNORMAL) Glucose, POCT (09/06/2022 3:41 PM CDT) Glucose, POCT, B 297(H) 70 - 140 mg/dL 09/06/2022 3:41 PM CDT [facility] Blood 09/06/2022 3:41 PM CDT 09/06/2022 3:48 PM CDT Generic Rals LAB POCT ORDERABLES- MANUAL [facility] [address] [place] [address], [facility] in [address] [address] * Lactate (09/06/2022 3:15 PM CDT) Lactate, P 1.9 0.5 - 2.2 mmol/L 09/06/2022 3:42 PM CDT [facility] Blood (Blood, Venous) 09/06/2022 3:15 PM CDT 09/06/2022 3:17 PM CDT Madhav Basurto APRN, C.N.P., D.N.P. LAB BLOOD NON ADD-ON [address] [address], [facility] in [address] [address] * (ABNORMAL) Glucose, POCT (09/06/2022 2:58 PM CDT) Glucose, POCT, B 329(H) 70 - 140 mg/dL 09/06/2022 2:58 PM CDT CNFL Blood 09/06/2022 2:58 PM CDT 09/06/2022 3:05 PM CDT Generic Rals LAB POCT ORDERABLES- MANUAL [facility] [address] [place] [address], [place] CNFL [facility] in [address] [address] * CT Abdomen Pelvis with IV Contrast [...] No bowelobstruction. Madhav Basurto APRN, C.N.P., D.N.P. IM CT PROCEDURES * (ABNORMAL) Urinalysis with Microscopic [...] 8.0 09/06/2022 1:36 PM CDT CNFL Specific [place] 1.010 1.001 - 1.035 09/06/2022 1:36 PM CDT CNFL Urobilinogen 0.2 0.2 - 1.0 mg/dL 09/06/2022 1:36 PM CDT CNFL Urine (Urine, Midstream) 09/06/2022 1:24 PM CDT 09/06/2022 1:33 PM CDT Madhav Basurto APRN, C.N.P., D.N.P. LAB URINE ORDERABLES Performing Organization Address [facility]/State/ZIP Co de Phone Number [facility] [address] [place] [address], [facility] [place] [address] * VBG (Venous Blood Gas), POCT (09/06/2022 [...] POCT ORDERABLES - DEVICE Performing Organization Address [facility]/ZIP Co de Phone Number [facility] [address] [place] [address], [place] [address] * Blood Gas, POCT - Venous (09/06/2022 1:11 PM CDT) Blood Gas, POCT, B Collected DEFAULT 09/06/2022 1:14 PM CDT CNFL Blood (Other, Specify in Comments) 09/06/2022 1:11 PM CDT 09/06/2022 1:14 PM CDT Madhav Basurto APRN, C.N.P., D.N.P. LAB POCT ORDERABLES - DEVICE Performing Organization Address [facility]/ZIP Co de Phone Number [facility] [address] [place] [address], [place] [address] * Beta-hydroxybutyrate, Point of Care Testing, Blood (09/06/2022 1:11 PM CDT) Beta-hydroxybut yrate, POCT, B 0.1 0.0 - 0.5 mmol/L 09/06/2022 1:16 PM CDT CNFL Blood (Blood, Venous) 09/06/2022 1:11 PM CDT 09/06/2022 1:14 PM CDT Sandra Tan APRNNCarlosP., D.N.P. LAB BLOOD NON ADD-ON [address] [address], [facility] CNFL [address] [address] * (ABNORMAL) CRP (C-Reactive Protein) (09/06/2022 12:31 PM CDT) C-Reactive Protein (CRP), P 11.2(H) <5.0 mg/L 09/06/2022 12:53 PM CDT CNFL Blood (Blood, Venous) 09/06/2022 12:31 PM CDT 09/06/2022 12:34 PM CDT Sandra Tan APRNN.P., D.N.P. LAB BLOOD ADD-ON [facility] [address] [place] [address], [address] [address] * (ABNORMAL) Lactate (09/06/2022 12:31 PM CDT) Lactate, P 4.1(H) 0.5 - 2.2 mmol/L 09/06/2022 12:51 PM CDT CNFL Blood (Blood, Venous) 09/06/2022 12:31 PM CDT 09/06/2022 12:34 PM CDT Sandra Tan APRNN.P., D.N.P. LAB BLOOD NON ADD-ON [facility] [address] [place] [address], [facility] CNFL [facility] in [address] [address] * Lipase (09/06/2022 12:31 PM CDT) Lipase, P 57 13 - 60 U/L 09/06/2022 12:53 PM CDT CNFL Blood (Blood, Venous) 09/06/2022 12:31 PM CDT 09/06/2022 12:34 PM CDT Madhav Basurto APRN, C.N.P., D.N.P. LAB BLOOD ADD-ON [facility] [address] [place] [address], [facility] CNFL [facility] [place] [address] * (ABNORMAL) Comprehensive Metabolic Panel (09/06/2022 12:31 [...] Mona Tan APRN.N.P., D.N.P. LAB BLOOD ADD-ON [facility] [address] [place] [address], [facility] [place] [address] * (ABNORMAL) CBC with Differential, Blood (09/06/2022 [...] D.N.P. LAB BLOOD ADD-ON Performing Organization Address City/State/[facility] Co de Phone Number [facility] [address] [place], [place] [address], [facility] CNFL [facility] in [address] [address] documented in this encounter Visit Diagnoses Diagnosis [...] mg (INAPSINE) 1.875 mg, intravenous, Once, On Sat09/06/22 at 1552, For 1 dose Given 09/06/2022 [...] or score 7-10 of 10, Starting on Sat09/06/22 at 1859 oxyCODONE IR tablet 5 mg [...] 17 g, oral, Daily, First dose on Duyen 09/06/22 at 1815, Dissolve in 240 mLs (8 [...] 0900 0853 (Given - Provider: Diane Baker R.N.) 0855 (Given - Provider: Diane Baekr RCarlosN.) bisacodyL DR tablet 10 mg (DULCOLAX) [...] Diane Baker R.N. - Reason: Patient/family refused) droPERidoL injection 1.875 [...] Mariela Arguello, R.N.) 2106 (Given - Provider: Aileen Zambrano RCarlosN.) fentaNYL injection 50 mcg (SUBLIMAZE) (COMPLETED) 50 mcg, intravenous, Once, On Sat09/06/22 at 1317, For 1 dose 1325 (Given - Provider: Eladio VelásquezN.) HYDROmorphone injection 1 mg (DILAUDID) (COMPLETED) 1 mg, intravenous, Once, On Sat09/06/22 at 1435, For 1 dose 1441 (Given - Provider: Ivone Rosario RCarlosN.) insulin aspart U-100 injection 0-13 Units (NovoLOG [...] writing Insulin orders 1711 (Given - Provider: Roya Nicholson R.N.) 0859 (Given - Provider: Diane Baker R.N.)1227 (Given - Provider: Diane Baker R.N.)1735 (Given - Provider: Shavon Hu.N.) 0900 (Given [...] to administer if ordered for subcutaneous route. 1405 (Given - Provider: Ivone Rosario R.N.) ketorolac [...] bedtime, First dose on Sat09/06/22 at 2100 2118 (Given - Provider: Mariela Arguello, R.N.) [...] - Comment: npo)2100 (Not Given - Provider: Mariela Arguello, R.N. - Reason: See Provider Order) 2100 [...] dose 1356 (New Bag - Provider: Ansley Jason, R.T.(R)(CT), R.T.(R))1615 (Stopped - Provider: Roya Nicholson R.N.) ondansetron (PF) injection 4 mg (ZOFRAN) [...] Arguello., R.N.) 0853 (Given - Provider: Diane Baker R.N.)2107 (Given - Provider: Aileen Zambrano R.N.) 0856 (Given - Provider: Diane Baker R.N.) oxyBUTYnin 24 hr tablet 10 mg (DITROPAN-XL) 10 mg, oral, Daily at bedtime, First dose on Duyen 09/06/22 at 2100, Swallow whole. Do NOT crush, chew, or split tablet. 2118 (Given - Provider: Naun Arguello.S.NCarlos, R.N.) 2107 (Given - Provider: Aileen Zambrano R.N.) pantoprazole injection 40 mg (PROTONIX) 40 mg, intravenous, Every 12 hours scheduled, First dose on Duyen 09/06/22 at 1715, Administer IV push over 2 minutes. Add 10 mL NS to 40 mg vial for a final concentration of 4 mg/mL. 1727 (Given - Provider: Roya Nicholson R.N.) 858 (Given - Provider: Diane Baker R.N.)2107 (Given - Provider: Aileen Zambrano R.N.) 08 (Given - Provider: Diane Baker R.N.) polyethylene glycol powder packet 17 g (MIRALAX) 17 g, oral, Daily, First dose on Duyen 09/06/22 at 1815, Dissolve in 240 mLs (8 ounces) of water prior to giving. Avoid mixing with starch-based thickened liquids. 1831 (Given - Provider: Roya Nicholson R.N.) 0856 (Not Given - Provider: Diane Baker R.N. - Reason: Patient/family refused) 09 (Given - Provider: Diane Baker R.N.) QUEtiapine tablet 400 mg (SEROquel) 400 mg, oral, Daily at bedtime, First dose (after last modification) on Duyen 09/06/22 at 2100 2118 (Given - Provider: Naun Arguello.S.NCarlos, R.N.) 2106 (Given - Provider: Aileen Zambrano [...] Nicholson R.N.) 0120 (New Bag - Provider: Yury ArguelloSPedrito, R.N.)0701 (Handoff - Provider: Diane Baker R.N.)0852 (Rate/Dose Change - Provider: Diane Baker R.N.)1140 (New Bag - Provider: Diane Baker R.N.)1515 (Rate/Dose Change - Provider: Diane Baker R.N.)1632 (Rate/Dose Change - Provider: Brando Davila R.N.)1856 (Handoff - Provider: Diane Baker R.N. - Comment: [phone] (Rate/Dose Verify - Provider: Aileen Zambrano R.N.) 0147 (Rate/Dose Verify - Provider: Aileen Zambrano R.N.)0204 (New Bag - Provider: Aileen Zambrano R.N.)0627 (Rate/Dose Verify - Provider: Aileen Zambrano R.N.)0712 (Handoff - Provider: Aileen Zambrano R.N. - Comment: [phone] (Rate/Dose Change - Provider: Diane Baker R.N.)1057 [...] times daily PRN, muscle spasms, Starting on Sat09/06/22 at 1629 hydrALAZINE injection 10 mg (APRESOLINE) [...] on Sat09/06/22 at 1319, For 1 dose 1356 (Given - Provider: Dany Mandujano(R)(CT), RGianna(R) - Comment: [phone]) oxyCODONE IR tablet 10 mg (ROXICODONE)(Linked Group 1) 10 mg, oral, Every 4 hours PRN, severe pain or score 7-10 of 10, Starting on Sat09/06/22 at 1859 1630 (See Alternative - Provider: Brando Davila R.N.)2058 (See Alternative - Provider: Justine Curtis R.N.) 09 (See Alternative - Provider: Diane Baker R.N.) oxyCODONE IR tablet 5 mg (ROXICODONE)(Linked Group 1) 5 mg, oral, Every 4 hours PRN, moderate pain or score 4-6 of 10, Starting on Duyen 09/06/22 at 1859 1630 (Given - Provider: Brando Davila R.N.)2058 (Given - Provider: Justine Curtis R.N.) 09 (Given - Provider: Diane Baker R.N.) Linked [...] Depression Total Score: 21 012 10:33 AM PLANT PHYSIOLOGY TEACHER documented as of this encounter Care Teams Personal Investment Adviser Relationship Specialty Start Date End Date Elsewhere, Pcp PCP - General Internal Medicine 06/26/22 documented as of this encounter
--- OUTSIDE RECORDS SUMMARY | 2023-04-19 10:44 | XMS_ITS | Encounter Summary ---
Author Name Unknown Organization [facility] Address [address] [place] [address] Care Team Providers Care Button Spindler Name Role Phone Elsewhere, Pcp Primary Care Provider Unavailabl e Reason for Referral * Outpatient (Routine) - Closed Specialty Diagnoses / Procedures Referred By Contact Referred To Contact Gastroenterology and Hepatology Diagnoses Abdominal Pain Nausea And Vomiting Frequency Urinary Urgency Urinary Pancreatitis Chronic (HCC) Abnormal Findings On Diagnostic Imaging Of Other Abdominal Regions Including Retroperitoneum [place] W[place] P.A.-C. [address] [place] [phone] [facility] Referral ID Status Reason Start Date Expiration Date Visits Re quested Visits Authorized [id number] Closed 10/19/2022 10/18/2025 1 1 Reason for Visit * Reason Comments Abdominal Pain Encounter Details Date Type Department Care Team (Late st Contact Info) Description 10/19/2022 2:48 PM CDT - 10/19/2022 7:19 PM CDT Emergency [facility] Emergency Department [address] [place] [phone] [place] P.A.-C. [address] [place] [phone] Abdominal Pain (Primary Dx); Nausea And Vomiting; [...] were examined and treated today in the [facility] Emergency Department (ED) on an emergency basis. [...] through Care Everywhere. * Chronic Pancreatitis ([place]) * Abdominal Pain Adult Mtjx-er-Wvdf ([place]) documented in this encounter Medications at Time [...] at McBurney's point, negative Galvan's sign, no Lengby sign and no Rovsing's sign. No hernia. [...] 2:51 PM CDT Patient presents from the [facility] for concerns of pancreatitis. Patient has LUQ [...] 10/10. Nakita De Los Santos R.N. 10/19/22 1452 documented in this encounter Plan of Treatment Upcoming Encounters Date Type Department Care Team (Latest Contact Info) Description 04/29/2023 9:30 AM COLOR PRINT INSPECTOR Appointment Division of Gastroenterology in [place], [place] [address] [place] [address] Jose Roberto [place] M.D. [address] [place] [address] Shane Becerra M.D. [address] [place] [address] Discharge Disposition: Home or Self Care 05/02/2023 Hospital Encounter Outpatient Surgery Unit in [place], [place] [address] [place] [phone] Luis Andrew M.D., M.P.H. [address] [place] [address] Scheduled Procedures Name Priority Associated Diagnoses Date/Ti [...] Mago [place] M.D. LAB URINE ORDERABL ES [facility] [address] [place] [address], [facility] [address] [place] [address] * Osmolality, Urine (10/19/2022 5:30 PM CDT) Pathologist [facility] Osmolality, U 597 150 - 1150 mOsm/kg 10/19/2022 7:05 PM CDT DTL Urine 10/19/2022 5:30 PM CDT 10/19/2022 5:50 PM CDT Mago [place] M.D. LAB URINE ORDERABL ES Performing Organization Address City/[facility] Co de Phone Number [facility] [address] [place] [address] * pH, Random, Urine (10/19/2022 5:30 PM CDT) pH, Random, U 5.5 4.5 - 8.0 10/19/2022 7:05 PM CDT DTL Urine 10/19/2022 5:30 PM CDT 10/19/2022 5:50 PM CDT Mago [place] M.D. LAB URINE ORDERABL ES Performing Organization Address [facility] de Phone Number [facility] [address] 200 [place] [address] * Microscopic Manual (10/19/2022 5:30 PM CDT) [...] LAB URINE ORDERABL ES Performing Organization Address City/[facility]/ZIP Co de Phone Number [facility] [address] [place] [address], [facility] [address] [place] [address] * Bacterial Culture, Aerobic + Susceptibility, Urine (10/19/2022 5:30 PM CDT) Urine Culture No growth after 1 day of incubation. 10/21/2022 7:18 AM CDT DTL Urine (Urine, Midstream) 10/19/2022 5:30 PM CDT 10/19/2022 9:07 PM CDT Comment:Specimen Source Site : Urine [place] P.A.-C. LAB MICROBIOLOGY - GENERAL ORDERABLES [facility] [address] [place] [address], [facility] [address] [place] [address] * (ABNORMAL) Urinalysis with Microscopic: Urine, Midstream (10/19/2022 5:30 PM CDT) Source Urine, Urine, Midstream 10/19/2022 5:50 PM CDT DTL Color, U [place](A) 10/19/2022 5:50 PM CDT DTL Clarity, U [...] 5:30 PM CDT 10/19/2022 5:50 PM CDT Syril A Siena P.A.-C. LAB URINE ORDERA BLES [facility] [address] [place] [address], [place] DTL [facility] [address] [place] [address] * CT Abdomen Pelvis with IV Contrast [...] - 12.5 sec 10/19/2022 3:33 PM CDT [facility] 1.1 0.9 - 1.1 10/19/2022 3:33 PM CDT [facility] Comment: ----ADDITIONAL INFORMATION---- Standard intensity warfarin therapeutic range: 2.0 to 3.0 ?? High intensity warfarin therapeutic range: 2.5 to 3.5 Blood (Blood, Venous) 10/19/2022 3:17 PM CDT 10/19/2022 3:24 PM CDT Mona Casillas APRN.N.P., Fiona.N.P., M.S.N. LAB BLOOD ADD-ON [facility] V[facility]iz Sc[facility] [address] [place] [address], [place] [facility] [address] [place] [address] * Lactate (10/19/2022 3:17 PM CDT) [facility] Lactate, P 0.8 0.5 - 2.2 mmol/L 10/19/2022 3:38 PM CDT [facility] Blood (Blood, Venous) 10/19/2022 3:17 PM CDT 10/19/2022 3:24 PM CDT [place] P.A.-C. LAB BLOOD NON AD D-ON [facility] [address] [place] [address], [facility] [address] [place] [address] * (ABNORMAL) CBC with Differential, Blood (10/19/2022 3:17 PM CDT) [facility] Hemoglobin 12.8 11.6 - 15.0 g/dL 10/19/2022 [...] P.A.-C. LAB BLOOD ADD-ON Performing Organization Address City/[facility]/ZIP Co de Phone Number [facility] [address] [place], [place] [phone] [place] [address] [facility] [address] [place] [address] * Lipase (10/19/2022 3:17 PM CDT) Lipase, S 31 13 - 60 U/L 10/19/2022 4: 06 PM CDT DTL Blood (Blood, Venous) 10/19/2022 3:17 PM CDT 10/19/2022 3:46 PM CDT [place] P.A.-C. LAB BLOOD ADD-ON Performing Organization Address City/[facility]/ZIP Co de Phone Number [facility] [address] [place], [place] [phone] [place] [address] DTL [facility] [address] [place] [address] * (ABNORMAL) Hepatic Function Panel (10/19/2022 3:17 [...] CDT [place] P.A.-C. LAB BLOOD ADD-ON [facility] [address] [place] [address], [facility] [address] [place] [address] * (ABNORMAL) Basic Metabolic Panel (10/19/2022 3:17 [...] CDT [place] P.A.-C. LAB BLOOD ADD-ON [facility] [address] [place] [address], [facility] [address] [place] [address] documented in this encounter Visit Diagnoses Diagnosis [...] 1605 (Given - Provid er: Makenzie Ford R.N.) sodium chloride 0.9 % injection 3 mL 3 mL, intravenous, Every 12 hours scheduled, First dose on Sat10/19/22 at 2100, Peripheral Intravenous Catheter and Rapid Infusion Catheter, when no infusion to maintain patency Continuous Medication Order 10/17/2022 10/18/2022 10/19/2022 lactated ringers 250 mL/hr, intravenous, Continuous, Starting on Sat10/19/22 at 1725 1730 (Not Given - Pr ovider: Vika Gill R.N. - Reason: Other - Comment: Per provider, [...] 1605 (Given - Provid er: Makenzie Ford R.N. - Comment: [phone]) ondansetron (PF) injection 4 mg (ZOFRAN) (COMPLETED)(Linked Group 1) 4 mg, intravenous, Once as needed, nausea, vomiting, Starting on Sat10/19/22 at 1454, For 1 dose, Select antiemetic if IV access obtained. 1511 (Given - Provid er: Nakita De Los Santos R.N.) sodium chloride 0.9 % injection 10 [...] Depression Total Score: 21 012 10:33 AM COLOR PRINT INSPECTOR documented as of this encounter Care Teams Button Spindler Relationship Specialty Start Date End Date Elsewhere, Pcp PCP - General Internal Medicine 06/26/22 documented as of this encounter
== END 2023-04-19 10:35 | disposition home or self-care (01) ==
PROVIDERS: PCP Nurse Practitioner Family; Visit Provider Nurse Practitioner Family
DX: E78.5 Hyperlipidemia, unspecified (principal); Z13.0 Encounter for screening for diseases of the blood and blood-forming organs and certain disorders involving the immune mechanism; Z13.228 Encounter for screening for other metabolic disorders; Z13.21 Encounter for screening for nutritional disorder
CPT/HCPCS: 80053; 80061; 82607; 84443; 85025

== ENCOUNTER 2023-05-07 09:30 | Outpatient (CLI) | payer MEDICARE, OTHER, SELFPAY | END 2023-05-07 09:31 | disposition home or self-care (01) | PROVIDERS: PCP Nurse Practitioner Family; Visit Provider Nurse Practitioner Family | DX: E55.9 Vitamin D deficiency, unspecified (principal); Z13.0 Encounter for screening for diseases of the blood and blood-forming organs and certain disorders involving the immune mechanism; Z13.21 Encounter for screening for nutritional disorder | CPT/HCPCS: 82306; 82728; 82746; 83540; 83735; 84590 ==

== ENCOUNTER 2023-05-17 08:49 | Outpatient (CLI) | payer MEDICARE, OTHER, SELFPAY ==
--- OUTSIDE RECORDS SUMMARY | 2023-05-17 08:52 | XMS_ITS | Clinical Summary ---
Author Name Unknown Organization [facility] Address [place], [place] [address] Care Team Providers Care Motor Boss Name Role Phone Anne Esquivel TRAVEL AGENCY MANAGER Primary Care Provider [phone] Allergies Active Allergy Reactions Criticality Noted Date [...] mg by mouth at bedtime. 0 Active multivitamins-finished yarn examiner als-lutein (Centrum Silver) 0.4 mg-300 mcg- 250 [...] Max Dose: 200mg per 24hrs. 0 Active ykanyc-ghnfoood-zcf lase (CREON) 24,000-76,000 -120,000 unit cpDR delayed-release [...] Type Department Care Team Description 04/18/[address] [phone] [facility] Jig Operator Plan (Patient is ready to schedule a new consult) 03/08/2023 12:00 PM FIELD HAULER - 03/08/2023 3:27 PM FIELD HAULER Emergency [facility] [address] [place] [address] Harry Jacobo PA Pancreatic duct stones (Primary Dx) Discharge Disposition: Home Self Care 03/08/2023 Travel from Last 3 Months Social History Tobacco [...] Comments Blood Pressure 145/72 03/08/2023 11:25 AM FIELD HAULER Pulse 78 03/08/2023 9:49 AM FIELD HAULER Temperature 37 ??C (98.6 ??F) 03/08/2023 9:49 AM FIELD HAULER Respiratory Rate 16 03/08/2023 9:49 AM FIELD HAULER Oxygen Saturation 94% 03/08/2023 11:25 AM FIELD HAULER Inhaled Oxygen Concentration - - Weight 58.1 kg (128 lb) 03/08/2023 9:49 AM FIELD HAULER Height 162.6 cm (5' 4) 03/08/2023 9:49 AM FIELD HAULER Body Mass Index 21.97 03/08/2023 9:49 AM FIELD HAULER Plan of Treatment Upcoming Encounters Date Type Department Care Team (Late st Contact Info) Description 05/17/2023 9:00 AM FIELD HAULER Ancillary Procedure [facility] [address] [place] [address] Health Maintenance Due Date Last Done Comments [...] ABDOMEN LIMITED RUQ STAT 03/08/2023 12:53 PM FIELD HAULER C-REACTIVE PROTEIN KAMILLE 03/08/2023 10 :58 AM FIELD HAULER PLATELET ESTIMATE STAT 03/08/2023 10: 58 AM FIELD HAULER RED CELL MORPHOLOGY STAT 03/08/2023 1 0:58 AM FIELD HAULER LIPASE STAT 03/08/2023 10:58 AM FIELD HAULER COMP METABOLIC PANEL STAT 03/08/2023 10:58 AM FIELD HAULER CBC W PLT NO DIFF STAT 03/08/2023 10: 58 AM FIELD HAULER URINALYSIS MICROSCOPIC STAT 03/08/2023 10:25 AM FIELD HAULER UA W/ SEDIMENT EXAM REFLEXED PER CRITERIA STAT 03/08/2023 10:25 AM FIELD HAULER from Last 3 Months Results * US ABDOMEN LIMITED RUQ (03/08/2023 12:53 PM FIELD HAULER) Anatomical Region Laterality Modality Abdomen, LIVER Ultrasound 03/08/2023 2:40 PM FIELD HAULER Impressions 03/08/2023 2:40 PM FIELD HAULER 1. Findings similar to CT abdomen pelvis from November 22, 2022 there is dilated main pancreatic duct, measuring up to 8 mm with ductal/parenchymal calcifications. Findings again the likely sequela of chronic pancreatitis. 2. Status post cholecystectomy. Stable mild biliary duct dilation. Dictated by Waylon Kelly MD @ 03/08/2023 2:40:43 PM (Electronically Signed) Narrative 03/08/2023 2:40 PM FIELD HAULER For Patients: ??As a result of the Cures Act, medical imaging exams and procedure [...] * RED CELL MORPHOLOGY (03/08/2023 10:58 AM FIELD HAULER) Pathologist [facility] RBC COMMENT RBC morphology appears normal RBC morphology appears normal, RBC morphology within normal limits for newborns. 03/08/2023 11:19 AM [facility] Blood BLOOD SPECIMEN / Unknown Butterfly / Unknown 03/08/2023 10:58 AM FIELD HAULER 03/08/2023 11:04 AM FIELD HAULER Harry MOONEY HEMATOLOGY Performing Organization Address [facility]/ZIP Co de Phone Number [facility] [address] [place] [address] * PLATELET ESTIMATE (03/08/2023 10:58 AM FIELD HAULER) Pathologist [facility] PLATELET ESTIMATE Adequate Adequate, No estimate 03/08/2023 11:19 AM [facility] Blood BLOOD SPECIMEN / Unknown Butterfly / Unknown 03/08/2023 10:58 AM FIELD HAULER 03/08/2023 11:04 AM FIELD HAULER Harry MOONEY HEMATOLOGY [facility] [address] [place] [address] * CBC with Platelets, No Differential (03/08/2023 10:58 AM FIELD HAULER) [facility] WHITE BLOOD COUNT 9.0 4.5 - 11.0 thou/cu mm 03/08/2023 11:19 AM [facility] RED BLOOD COUNT 4.11 4.00 - 5.20 mil/cu mm 03/08/2023 11:19 AM [facility] HEMOGLOBIN 13.1 12.0 - 16.0 g/dL 03/08/2023 11:19 AM [facility] HEMATOCRIT 38.6 33.0 - 51.0 % 03/08/2023 11:19 AM [facility] MCV 94 80 - 100 fL 03/08/2023 11:19 AM [facility] MCH 31.9 26.0 - 34.0 pg 03/08/2023 11:19 AM [facility] MCHC 33.9 32.0 - 36.0 g/dL 03/08/2023 11:19 AM [facility] RDW 12.2 11.5 - 15.5 % 03/08/2023 11:19 AM [facility] PLATELET COUNT 259 140 - 440 thou/cu mm 03/08/2023 11:19 AM [facility] MPV 10.6 6.5 - 11.0 fL 03/08/2023 11:19 AM [facility] Blood BLOOD SPECIMEN / Unknown Butterfly / Unknown 03/08/2023 10:58 AM FIELD HAULER 03/08/2023 11:04 AM FIELD HAULER Harry MOONEY HEMATOLOGY Performing Organization Address City/[facility]/ZIP Co de Phone Number [facility] [address] [place] [address] * C-REACTIVE PROTEIN (03/08/2023 10:58 AM FIELD HAULER) C-REACTIVE PROTEIN <0.3 <0.5 mg/dL 03/08/2023 1:33 PM [facility] Blood BLOOD SPECIMEN / Unknown Butterfly / Unknown 03/08/2023 10:58 AM FIELD HAULER 03/08/2023 11:04 AM FIELD HAULER Harry MOONEY CHEMISTRY [facility] [address] [place] [address] * LIPASE (03/08/2023 10:58 AM FIELD HAULER) LIPASE 13.5 13.0 - 60.0 IU/L 03/08/2023 11:42 AM [facility] Blood BLOOD SPECIMEN / Unknown Butterfly / Unknown 03/08/2023 10:58 AM FIELD HAULER 03/08/2023 11:04 AM FIELD HAULER Deena Mckenna MD CHEMISTRY [facility] [address] [facility] [place] [address] * (ABNORMAL) Comp Metabolic Panel (03/08/2023 10:58 AM FIELD HAULER) SODIUM 141 136 - 145 mmol/L 03/08/2023 11:42 AM [facility] POTASSIUM 3.6 3.5 - 5.1 mmol/L 03/08/2023 11:42 AM [facility] CHLORIDE 105 98 - 107 mmol/L 03/08/2023 11:42 AM [facility] CO2,TOTAL 28 22 - 29 mmol/L 03/08/2023 11:42 AM [facility] ANION GAP 8 5 - 18 03/08/2023 11:42 AM [facility] GLUCOSE 143(H) 70 - 99 mg/dL 03/08/2023 11:42 AM [facility] CALCIUM 9.6 8.8 - 10.2 mg/dL 03/08/2023 11:42 AM [facility] BUN 13 8 - 23 mg/dL 03/08/2023 11:42 AM [facility] CREATININE 0.70 0.50 - 0.90 mg/dL 03/08/2023 11:42 AM [facility] BUN/CREAT RATIO 19 10 - 20 11:42 AM [facility] eGFR >90 >90 mL/min/1.7 3m2 03/08/2023 11:42 AM [facility] Comment:As of 2021, eG FR is calculated by the CKD-EPI creatinine equation without race adjustment. ??eGFR can be influenced by muscle mass, exercise, and diet. ??The reported eGFR is an estimation only and is only applicable if the renal function is stable. ALBUMIN 3.8(L) 4.0 - 4.9 g/dL 03/08/2023 11:42 AM [facility] PROTEIN,TOTAL 6.7 6.0 - 8.0 g/dL 03/08/2023 11:42 AM [facility] BILIRUBIN,TOTAL 0.3 0.0 - 1.2 mg/dL 03/08/2023 11:42 AM [facility] ALK PHOSPHATASE 105(H) 35 - 104 IU/L 03/08/2023 11:42 AM [facility] ALT (SGPT) 44(H) 10 - 35 IU/L 03/08/2023 11:42 AM [facility] AST (SGOT) 30 10 - 35 IU/L 03/08/2023 11:42 AM [facility] Blood BLOOD SPECIMEN / Unknown Butterfly / Unknown 03/08/2023 10:58 AM FIELD HAULER 03/08/2023 11:04 AM FIELD HAULER Harry MOONEY CHEMISTRY Performing Organization Address City/[facility]/ZIP Co de Phone Number [facility] [address] [place] [address] * (ABNORMAL) URINALYSIS MICROSCOPIC (03/08/2023 10:25 AM FIELD HAULER) RBC >100(A) 0-2, None Seen /HPF 03/08/2023 10:43 AM [facility] WBC 6-10(A) 0-2, 3-5, None Seen /HPF 03/08/2023 10:43 AM [facility] BACTERIA Rare None Seen, Rare, Few Bacteria/ HPF 03/08/2023 10:43 AM [facility] EPITHELIAL CELLS Few None Seen, Few Epi/HPF 03/08/2023 10:43 AM [facility] CALCIUM OXALATE CRYSTALS Present(A) (none) 03/08/2023 10:43 AM [facility] Urine URINE SPECIMEN / Unknown Non-Blood / Unknown 03/08/2023 10:25 AM FIELD HAULER 03/08/2023 10:30 AM FIELD HAULER Harry MOONEY URINE Performing Organization Address City/[facility]/ZIP Co de Phone Number [facility] [address] [place] [address] * (ABNORMAL) Urinalysis W Reflex Microscopic if Positive (03/08/2023 10:[address] [facility]) COLOR Brown(A) Yellow Color 03/08/2023 10:38 AM [facility] CLARITY Cloudy(A) Clear Clarity 03/08/2023 10:38 AM [facility] SPECIFIC GRAVITY,URINE 1.025 1.010, 1.015, 1.020, 1.025 03/08/2023 10:38 AM [facility] PH,URINE 5.5 6.0, 7.0, 8.0, 5.5, 6.5, 7.5, 8.5 03/08/2023 10:38 AM [facility] UROBILINOGEN,QU ALITATIVE Normal Normal EU/dl 03/08/2023 10:38 AM [facility] PROTEIN, URINE 30(A) Negative mg/dL 03/08/2023 10:38 AM [facility] GLUCOSE, URINE Negative Negative mg/dL 03/08/2023 10:38 AM [facility] KETONES,URINE Negative Negative mg/dL 03/08/2023 10:38 AM [facility] BILIRUBIN,URINE Abnormal(A) Negative 03/08/20 10:38 AM [facility] Comment:A variety of metabol ites and/or medications may result in a positive bilirubin result. Clinical correlation is recommended. OCCULT BLOOD,URINE Large(A) Negative 03/08/2023 10:38 AM [facility] NITRITE Negative Negative 03/08/2023 10:38 AM [facility] LEUKOCYTE ESTERASE Trace(A) Negative 03/08/2023 10:38 AM [facility] Urine URINE SPECIMEN / Unknown Non-Blood / Unknown 03/08/2023 10:25 AM FIELD HAULER 03/08/2023 10:[address] 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 Healthcare Directive 11/23/2022 023 Latest Code Status on File Code Status Date Activated Date Inactivated Comments Full Code 01/06/2023 7:04 PM 01/08/2023 12:46 PM Question Answer Comments Code Status Discussion: Reviewed Preferences Code Status History Code Status Date Activated Date Inactivated Comments Full Code 11/22/2022 10:09 PM 11/24/2022 2:55 PM Question Answer Comments Code Status Discussion: Reviewed Preferences Care Teams Motor Boss Relationship Specialty Start Date End Date Anne Esquivel NP [address] [facility] [place] [address] PCP - General Emergency Medicine 11/23/22
--- OUTSIDE RECORDS SUMMARY | 2023-05-17 08:53 | XMS_ITS | Encounter Summary ---
Author Name Unknown Organization [facility] Address [address] [place] [address] Care Team Providers Care Technical Support Consultant Name Role Phone Elsewhere, Pcp Primary Care Provider Unavailabl e Encounter Details Date Type Department Care Team (Latest Contact Info) Description 05/08/2023 9:03 AM OIL EXPELLER OPERATOR Anesthesia Event Division of Gastroenterology in [place], [place] [address] [place] [phone] Tami Sheets APRN, STUD SHEEP FARMER [address] [place] [phone] Austin Croft III, M.D. [address] [place] [phone] Anesthesia Record Procedure Summary Procedure Name Responsible Anesthesiologist Anesthesia Start Time Anesthesia Stop Time ERCP Tami Sheets APRN, STUD SHEEP FARMER 05/08/23 0903 05/08/23 1208 Events Date Time Event Comment 05/08/2023 0844 0903 An Start Machine/Equipme nt Checked Infection Precautions Followed Procedure/Site Verified NPO Status Verified Supine Standard ASA Monitors Applied 0907 An Induction 0915 An Intubation 0915 Turnover to Proceduralist 0919 Proc Start 1148 Proc Fin 1153 Turnover to ANE Staff 1159 Airway Removal Criteria Met 1159 Extubation/Airway Removed 1200 an stop data 1208 An End I completed my handoff to [...] Meds Name Total fentanyl injection 50 mcg/mL 175 mcg lidocaine 2% (mg) injection 60 mg rocuronium 10 mg/mL injection 30 mg ePHEDrine PF 5 mg/mL syringe injection 1 0 mg ondansetron 4 mg/2 mL injection 4 mg sugammadex 100 mg/mL injection 200 mg propofol 10 mg/mL infusion 987.66 mg propofol 10 mg/mL injection 130 mg glucagon 1 mg/mL injection 0.75 mg Lactated Ringers Free Drip 800 mL * Agents No agents on file. * Blood No blood administrations on file. Lines, Drains, and Airways Type Details Placement Removal Peripheral IV Placement Date: 10/22; Placement Time: 09; Catheter Size: 20 G; Orientation: Left; Location: Hand 05/08/23 09 by Tami Sheets APRN, CRNA Peripheral IV Placement Date: 10/22; Placement Time: 08; Catheter Size: 20 G; Orientation: Right; Location: Antecubital; Site Prep: Chlorhexidine (Preferred); Technique: Anatomical landmarks; Inserted by: Nathaly; Insertion Attempts: 1; Removal Date: 05/08/23; Removal Time: 1403; Removal Reason: Patient discharged 05/08/23 0839 by Araceli Jacobs RCarlosNCarlos 05/08/23 1403 by Araceli Jacobs RPedrito ETT Placement Date: 10/22; Placement Time: 09 (created via procedure documentation); Mask Ventilation: Easy mask; Technique: Video laryngoscopy; Type: Standard ETT; Single Lumen Tube Size: 7 mm; Cuffed: Yes; Location: Oral; Grade View: Grade 1; Insertion Attempts: 1; Placement Verification: Bilateral breath sounds, Positive ETCO2, Symmetrical chest wall movement; Removal Date: 05/08/23; Removal Time: 1159 05/08/23 0915 by Tami Sheets APRN, CRNA 05/08/23 1159 by Tami Sheets APRN, CRNA documented in this encounter Social History Tobacco [...] your living situation today? I have a [facility] place to live 01/01/2023 Sex and Gender Information Value Date Recorded Sex Assigned at Female 01/01/2023 9:08 AM CDT Gender Identity Female 01/01/2023 9:08 AM CDT Sexual Orientation Straight 01/01/2023 9: 08 AM CDT documented as of this encounter OR Notes * Anesthesia Postprocedure Evaluation - Tami Sheets APRN, CRNA - 05/08/2023 12:08 PM CST Patient: Yary Prince Procedure Summary Date: 05/08/23 Room / Location: Division of Gastroenterology in [place], [place] Anesthesia Start: 09 Anesthesia Stop: 1208 Procedure: ERCP Diagnosis: Pancreatitis Chronic (HCC) Scheduled Providers: Alverto Bunch M.D.; Tami Sheets APRN, CRNA Responsible Provider: Tami Sheets APRN, CRNA Anesthesia Type: general ASA Status: 3 Anesthesia Type: general Last vitals Vitals Value Taken Time BP 131/80 05/08/23 1204 Temp Pulse 74 05/08/23 1208 Resp 12 05/08/23 1208 SpO2 93 % 05/08/23 1208 Vitals shown include unfiled device data. Please reference Vitals flowsheet for most recent vital signs. Anesthesia Post Evaluation Patient Disposition: dismissal Cardiovascular status: hemodynamics (HR & BP) acceptable Respiratory status: patent airway with spontaneous effort Temperature: normothermic Oxygen requirements: room air Level of consciousness: awake Pain score: pain adequately controlled and/or at baseline Post Op nausea/vomiting: none Hydration status: euvolemic EXPELLER OPERATOR * Anesthesia Procedure Notes - Tami Sheets APRN, CRNA - 05/08/2023 9:38 AM CSTAssociated Order(s): Airway Airway Date/Time: 05/08/2023 9:15 AM Performed by: Tami Sheets APRN, CRNA Authorized by: Tami Sheets APRN, CRNA Patient location during procedure: OR / Procedure Area PROCEDURE DETAILS: Mask difficulty assessment: easy mask Final airway type: video laryngoscope Laryngeal Manipulation: no Final best view of glottic structures - Cormack/Lehane Score: grade 1 ETT location: oral VL device: glide scope [place] scope blade size: 3 Tube size: 7 ETT distance at teeth/gum: 22 Oral tube type: standard ETT Cuffed: yes Number of attempt to successful placement: 1 Airway confirmation: bilateral breath sounds, positive ETCO2 and bilateral chest rise Other previous techniques attempted: none PRE PROCEDURE DETAILS: Pre evaluation for airway management: procedure Urgency: elective Preop assessment of probable difficulty: no difficulty anticipated Preoxygenation: bag valve mask SEDATION / ANESTHESIA Anesthesia method: anesthesia POST PROCEDURE DETAILS: Procedure outcome: successful Notable Events: no complications EXPELLER OPERATOR * Anesthesia Preprocedure Evaluation - Austin Croft III, M.D. - 05/08/2023 8:44 AM CST Preprocedure Anesthesia & H&P Assessment Procedure Summary Date/Time: 05/08/23 0900 Scheduled providers: Alverto Bunch M.D.; Tami Sheets APRN, CRNA Procedure: ERCP Diagnosis: Pancreatitis Chronic (HCC) [K86.1] Location: Division of Gastroenterology in [place], [place] Pertinent components of the patient's history [...] (HCC) GI (+) Gastroesophageal Reflux Disease NOS OBJECTIVE PHYSICAL EXAMINATION Airway (HEENT) Mallampati: II TM Distance: >3 FB Neck ROM: Full Mouth Opening: >3 cm Cardiovascular Rhythm: Regular Rate: Normal Functional Capacity: >4 METS Pulmonary Pulmonary Assessment: Non labored General / Constitutional Constitutional Assessment: Normal General State of Health:: calm Neurological Neurologic Assessment: alert and alert and oriented x 3 Dental Dental Assessment: dentition intact ASSESSMENT / PLAN ANESTHESIA PLAN ASA: 3 Anesthesia Plan: general Patient seen and allergies reviewed; anesthesia plan and risks discussed directly with patient / legal guardian, or through an compensation business partner; patient evaluated and approved for anesthesia / sedation Risks/Benefits/Alternatives of Blood transfusion discussed with patient / legal guardian, includingan opportunity to ask questions and/or decline some or all transfusion therapies. The patient / legal guardian consented to the use of all blood products, as deemed medically necessary Approval to Proceed: approved for anesthesia EXPELLER OPERATOR documented in this encounter Plan of Treatment Upcoming Encounters Date Type Department Care Team (Latest Contact Info) Description 05/28/2023 3:30 PM OIL EXPELLER OPERATOR Clinical Communication Virtual Review in [place], [place] 200 [place] [address] 05/30/2023 2:30 PM OIL EXPELLER OPERATOR Comprehensive Visit Division of Pain Medicine in [address] [phone] Gricel Lynch APRN, C.N.P. [address] [place] [phone] 07/08/2023 12:15 PM CDT Appointment Division of Gastroenterology in [address] [phone] Jose Roberto Patterson M.D. [address] [place] [phone] documented as of this encounter Procedures Procedure Name Priority Date/Time Associated Diagnosis Comments LDA ANE ENDOTRACHEAL AIRWAY Routine 05/08/2023 9:15 AM OIL EXPELLER OPERATOR documented in this encounter Results * LDA ANE ENDOTRACHEAL AIRWAY (05/08/2023 9:15 AM OIL EXPELLER OPERATOR) Narrative Tami Sheets APRN, CRNA - 05/08/2023 9:15 AM OIL EXPELLER OPERATOR Tami Sheets APRN, CRNA ? 05/08/2023 ??9:39 AM Airway Date/Time: 05/08/2023 9:15 AM Performed by: Tami Sheets APRN, CRNA Authorized by: Tami Sheets APRN, CRNA ?? Patient location during procedure: OR / Procedure Area PROCEDURE DETAILS: Mask difficulty assessment: easy mask Final airway type: video laryngoscope Laryngeal Manipulation: no ?? Final best view of glottic structures - Cormack/Lehane Score: grade 1 ETT location: oral VL device: glide scope [place] scope blade size: 3 Tube size: 7 ETT distance at teeth/gum: 22 Oral tube type: standard ETT Cuffed: yes Number of attempt to successful placement: 1 Airway confirmation: bilateral breath sounds, positive ETCO2 and bilateral chest rise Other previous techniques attempted: none PRE PROCEDURE DETAILS: Pre evaluation for airway management: procedure Urgency: elective Preop assessment of probable difficulty: no difficulty anticipated Preoxygenation: bag valve mask SEDATION / ANESTHESIA Anesthesia method: anesthesia POST PROCEDURE DETAILS: ? Procedure outcome: successful ?? Notable Events: no complications Tami Sheets APRN, NABOR ANESTHESIA VERNON VELAZQUEZ documented in this encounter Visit Diagnoses Not on filedocumented in this encounter Administered Medications Inactive Administered Medications - up to 3 most recent administrations Medication Order MAR Action Action Date Dose Rate Site ePHEDrine (PF) injection intravenous, As needed, Starting on Sat05/08/23 at 1019, Anesthesia Intra-op Given 05/08/2023 10:19 AM OIL EXPELLER OPERATOR 10 mg fentaNYL injection (SUBLIMAZE) intravenous, As needed, Starting on Sat05/08/23 at 0923, Anesthesia Intra-op Given 05/08/2023 11:38 AM OIL EXPELLER OPERATOR 25 mcg Given 05/08/2023 10:28 AM OIL EXPELLER OPERATOR 25 mcg Given 05/08/2023 9:52 AM OIL EXPELLER OPERATOR 25 mcg glucagon injection (GlucaGen) intravenous, As needed, Starting on Sat05/08/23 at 0932, Anesthesia Intra-op Given 05/08/2023 10:43 AM OIL EXPELLER OPERATOR 0.25 mg Given 05/08/2023 9:45 AM OIL EXPELLER OPERATOR 0.25 mg Given 05/08/2023 9:32 AM OIL EXPELLER OPERATOR 0.25 mg Lactated Ringer's intravenous, Continuous Infusion: Per Instructions PRN, Starting on Sat05/08/23 at 0903, Anesthesia Intra-op New Bag 05/08/2023 9:03 AM OIL EXPELLER OPERATOR lidocaine (PF) (cardiac) injection intravenous, As needed, Starting on Sat05/08/23 at 0907, Anesthesia Intra-op Given 05/08/2023 9:07 AM OIL EXPELLER OPERATOR 60 mg ondansetron (PF) injection (ZOFRAN) intravenous, As needed, Starting on Sat05/08/23 at 1145, Anesthesia Intra-op Given 05/08/2023 11:45 AM OIL EXPELLER OPERATOR 4 mg propofol 10 mg/mL infusion (DIPRIVAN) intravenous, Continuous Infusion: Per Instructions PRN, Starting on Sat05/08/23 at 0907, Anesthesia Intra-op Rate/Dose Change 05/08/2023 10:19 AM OIL EXPELLER OPERATOR 100 mcg/kg/min 33.18 mL/hr Rate/Dose Change 05/08/2023 10:15 AM OIL EXPELLER OPERATOR 115 mcg/kg/min 38 .157 mL/hr New Bag 05/08/2023 9:07 AM OIL EXPELLER OPERATOR 125 mcg/kg/min 41.475 mL /hr propofoL injection (DIPRIVAN) intravenous, As needed, Starting on Sat05/08/23 at 0909, Anesthesia Intra-op Given 05/08/2023 9:10 AM OIL EXPELLER OPERATOR 30 mg Given 05/08/2023 9:09 AM OIL EXPELLER OPERATOR 100 mg rocuronium injection (ZEMURON) intravenous, As needed, Starting on Sat05/08/23 at 0910, Anesthesia Intra-op Given 05/08/2023 9:10 AM OIL EXPELLER OPERATOR 30 mg sugammadex injection (BRIDION) intravenous, As needed, Starting on Sat05/08/23 at 1145, Anesthesia Intra-op Given 05/08/2023 11:45 AM OIL EXPELLER OPERATOR 200 mg documented in this encounter Additional Health Concerns Assessment Noted Time PHQ-9 Depression Total Score: 21 012 10:33 AM OIL EXPELLER OPERATOR documented as of this encounter Care Teams Technical Support Consultant Relationship Specialty Start Date End Date Elsewhere, Pcp PCP - General Internal Medicine 06/26/22 documented as of this encounter
--- OUTSIDE RECORDS SUMMARY | 2023-05-17 08:53 | XMS_ITS | Encounter Summary ---
Author Name Unknown Organization [facility] Address [address] [place] [address] Care Team Providers Care Storyboard Artist Name Role Phone Elsewhere, Pcp Primary Care Provider Unavailabl e Encounter Details Date Type Department Care Team (Late st Contact Info) Description 05/02/2023 8:00 AM RN ORTHOPAEDIC Anesthesia Event [facility] [address] [place] [phone] Shane Carlos M.D. [address] [place] [phone] Anesthesia Record Procedure Summary Procedure Name Responsible Anesthesiologist Anesthesia Start Time Anesthesia Stop Time Pancreatic LITHOTRIPSY EXTRACORPOREAL SHOCK WAVE UNILATERAL, possible multiple trips to operating room in 90 days, proceed as indicated. Shane Carlos M.D. 05/02/23 0800 05/02/23 0924 Events Date Time Event Comment 05/02/2023 0800 An Start Machine/Equipme nt Checked Infection Precautions Followed Procedure/Site Verified NPO Status Verified Supine Standard ASA Monitors Applied 0811 An Induction 0816 An Intubation 0819 Turnover to Proceduralist 0824 Proc Start 0903 Proc Fin 0906 Turnover to ANE Staff 0911 Airway Removal Criteria Met 0911 Extubation/Airway Removed 0917 an stop data 0924 An End I completed my handoff to [...] Meds Name Total fentanyl injection 50 mcg/mL 150 mcg lidocaine 2% (mg) injection 90 mg rocuronium 10 mg/mL injection 50 mg phenylephrine 100 mcg/mL injection 500 m cg ePHEDrine PF 5 mg/mL syringe injection 3 5 mg ondansetron 4 mg/2 mL injection 4 mg sugammadex 100 mg/mL injection 140 mg propofol 10 mg/mL infusion 257.42 mg propofol 10 mg/mL injection 110 mg Lactated Ringers Free Drip 1,000 mL * Agents No agents on file. * Blood No blood administrations on file. Lines, Drains, and Airways Type Details Placement Removal Peripheral IV Placement Date: 04/24; Placement Time: 07; Catheter Size: 20 G; Orientation: Right; Location: Forearm; Removal Date: 05/02/23; Removal Time: 1155 05/02/23 0746 by Cassie Acuña APRN, CRNA 05/02/23 1155 by Amparo Owens, R.NCarlos ETT Placement Date: 04/24; Placement Time: 08 (created via procedure documentation); Mask Ventilation: Easy mask; Technique: Video laryngoscopy; Type: Standard ETT; Single Lumen Tube Size: 7 mm; Cuffed: Yes; Location: Oral; Grade View: Grade 1; Insertion Attempts: 1; Placement Verification: Bilateral breath sounds, Positive ETCO2, Symmetrical chest wall movement; Airway Comment: Pre-existing chipped/fragile teeth.; Removal Date: 05/02/23; Removal Time: 0905/02/23 0816 by Cassie Acuña APRN, CRNA 05/02/23 0917 by Cassie Acuña APRN, CRNA documented in this encounter Social [...] your living situation today? I have a [facility] place to live 01/01/2023 Sex and Gender Information Value Date Recorded Sex Assigned at Female 01/01/2023 9:08 AM CDT Gender Identity Female 01/01/2023 9:08 AM CDT Sexual Orientation Straight 01/01/2023 9: 08 AM CDT documented as of this encounter OR Notes * Anesthesia Postprocedure Evaluation - Shane Carlos M.D. - 05/02/2023 10:25 AM CST Patient: Yary Prince Procedure Summary Date: 05/02/23 Room / Location: [address] / [facility] in [place], [place] Anesthesia Start: 0800 Anesthesia Stop: 923 Procedure: Pancreatic LITHOTRIPSY EXTRACORPOREAL SHOCK WAVE UNILATERAL, possible multiple trips to operating room in 90 days, proceed as indicated. 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 Responsible Provider: Shane Carlos M.D. Anesthesia Type: general ASA Status: 3 Anesthesia Type: general Last vitals Vitals Value Taken Time BP 130/68 05/02/23 1000 Temp 36.4 ??C 05/02/23 1000 Pulse 68 05/02/23 1005 Resp 18 05/02/23 1005 SpO2 96 % 05/02/23 1005 Please reference Vitals flowsheet for most recent vital signs. Anesthesia Post Evaluation Patient Disposition: general care unit Cardiovascular status: hemodynamics (HR & BP) acceptable Respiratory status: patent airway with spontaneous effort Temperature: normothermic Oxygen requirements: nasal cannula Level of consciousness: awake Pain score: pain adequately controlled and/or at baseline Post Op nausea/vomiting: none Hydration status: euvolemic ORTHOPAEDIC * Anesthesia Procedure Notes - Cassie Acuña APRN, CRNA - 05/02/2023 8:28 AM CSTAssociated Order(s): Airway Airway Date/Time: 05/02/2023 8:16 AM Performed by: Cassie Acuña APRN, CRNA Authorized by: Shane Carlos M.D. Patient location during procedure: OR / Procedure Area PROCEDURE DETAILS: Mask difficulty assessment: easy mask Final airway type: video laryngoscope Laryngeal Manipulation: no Final best view of glottic structures - Cormack/Lehane Score: grade 1 ETT location: oral VL device: glide scope [place] scope blade size: 3 Tube size: 7 ETT distance at teeth/gum: 20 Oral tube type: standard ETT Cuffed: yes Leak Test Performed: no Number of attempt to successful placement: 1 Airway confirmation: bilateral breath sounds, positive ETCO2 and bilateral chest rise Other previous techniques attempted: none Additional Comments Pre-existing chipped/fragile teeth. PRE PROCEDURE DETAILS: Pre evaluation for airway management: procedure Urgency: elective Preop assessment of probable difficulty: questionable / suspicious difficult airway Preoxygenation: bag valve mask SEDATION / ANESTHESIA Anesthesia method: anesthesia POST PROCEDURE DETAILS: Procedure outcome: successful Notable Events: no complications ORTHOPAEDIC * Anesthesia Preprocedure Evaluation - Shane Carlos M.D. - 05/02/2023 7:13 AM CST Preprocedure Anesthesia & H&P Assessment Procedure Summary Date/Time: 05/02/23 0745 Procedure: Pancreatic LITHOTRIPSY EXTRACORPOREAL SHOCK WAVE UNILATERAL, possible multiple trips to operating room in 90 days, proceed as indicated. 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 Location: [place] [address] / [facility] in [place], [place] Providers: Luis Andrew M.D., M.P.H. Pertinent components of the patient's history including [...] (+) Dysphagia (+) Pancreatitis Chronic Recurrent (HCC) (+) Stone Pancreatic Duct Other (+) Unspecified Abnormalities Of Gait And Mobility (+) Weakness General OBJECTIVE PHYSICAL EXAMINATION Airway [...] calm ASSESSMENT / PLAN ANESTHESIA PLAN ASA: 3 Anesthesia Plan: general Fent, angela, propofol infusion, desflurane, O2; BIS monitor with target of 50; Reverse with sugammadex Patient seen and allergies reviewed, anesthesia plan and risks discussed directly with patient /legal guardian or through an chromosomal disorders counselor. The use of blood products not discussed Approval to Proceed: approved for anesthesia ORTHOPAEDIC documented in this encounter Plan of Treatment Upcoming Encounters Date Type Department Care Team (Latest Contact Info) Description 05/28/2023 3:30 PM RN ORTHOPAEDIC Clinical Communication Virtual Review in [place], [place] 200 [place] [address] 05/30/2023 2:30 PM RN ORTHOPAEDIC Comprehensive Visit Division of Pain Medicine in [place], [place] [address] [place] [phone] Gricel Lynch APRN, C.N.P. [address] [place] [phone] 07/08/2023 12:15 PM CDT Appointment Division of Gastroenterology in [address] [phone] Jose Roberto Patterson M.D. [address] [place] [phone] documented as of this encounter Procedures Procedure Name Priority Date/Time Associated Diagnosis Comments LDA ANE ENDOTRACHEAL AIRWAY Routine 05/02/2023 8:16 AM RN ORTHOPAEDIC documented in this encounter Results * LDA ANE ENDOTRACHEAL AIRWAY (05/02/2023 8:16 AM RN ORTHOPAEDIC) Narrative Cassie Acuña APRN, CRNA - 05/02/2023 8:16 AM RN ORTHOPAEDIC Cassie Acuña APRN, CRNA ? 05/02/2023 ??8:30 AM Airway Date/Time: 05/02/2023 8:16 AM Performed by: Cassie Acuña APRN, CRNA Authorized by: Shane Carlos M.D. ?? Patient location during procedure: OR / Procedure Area PROCEDURE DETAILS: Mask difficulty assessment: easy mask Final airway type: video laryngoscope Laryngeal Manipulation: no ?? Final best view of glottic structures - Cormack/Lehane Score: grade 1 ETT location: oral VL device: glide scope [place] scope blade size: 3 Tube size: 7 ETT distance at teeth/gum: 20 Oral tube type: standard ETT Cuffed: yes Leak Test Performed: no ?? Number of attempt to successful placement: 1 Airway confirmation: bilateral breath sounds, positive ETCO2 and bilateral chest rise Other previous techniques attempted: none Additional Comments Pre-existing chipped/fragile teeth. ?? PRE PROCEDURE DETAILS: Pre evaluation for airway management: procedure Urgency: elective Preop assessment of probable difficulty: questionable / suspicious difficult airway Preoxygenation: bag valve mask SEDATION / ANESTHESIA Anesthesia method: anesthesia POST PROCEDURE DETAILS: ? Procedure outcome: successful ?? Notable Events: no complications Shane Carlos M.D. ANESTHESIA ORDERAB LES documented in this encounter Visit Diagnoses Not on filedocumented in this encounter Administered Medications Inactive Administered Medications - up to 3 most recent administrations Medication Order MAR Action Action Date Dose Rate Site ePHEDrine (PF) injection intravenous, As needed, Starting on Duyen 05/02/23 at 0823, Anesthesia Intra-op Given 05/02/2023 8:30 AM RN ORTHOPAEDIC 10 mg Given 05/02/2023 8:27 AM RN ORTHOPAEDIC 10 mg Given 05/02/2023 8:24 AM RN ORTHOPAEDIC 10 mg fentaNYL injection (SUBLIMAZE) intravenous, As needed, Starting on Duyen 05/02/23 at 0809, Anesthesia Intra-op Given 05/02/2023 8:50 AM RN ORTHOPAEDIC 25 mcg Given 05/02/2023 8:44 AM RN ORTHOPAEDIC 25 mcg Given 05/02/2023 8:11 AM RN ORTHOPAEDIC 25 mcg Lactated Ringer's intravenous, Continuous Infusion: Per Instructions PRN, Starting on Duyen 05/02/23 at 0801, Anesthesia Intra-op New Bag 05/02/2023 8:59 AM RN ORTHOPAEDIC New Bag 05/02/2023 8:01 AM RN ORTHOPAEDIC lidocaine (PF) (cardiac) injection intravenous, As needed, Starting on Duyen 05/02/23 at 0811, Anesthesia Intra-op Given 05/02/2023 8:11 AM RN ORTHOPAEDIC 90 mg ondansetron (PF) injection (ZOFRAN) intravenous, As needed, Starting on Duyen 05/02/23 at 0806, Anesthesia Intra-op Given 05/02/2023 8:06 AM RN ORTHOPAEDIC 4 mg phenylephrine injection intravenous, As needed, Starting on Duyen 05/02/23 at 0819, Anesthesia Intra-op Given 05/02/2023 8:26 AM RN ORTHOPAEDIC 100 mcg Given 05/02/2023 8:23 AM RN ORTHOPAEDIC 150 mcg Given 05/02/2023 8:21 AM RN ORTHOPAEDIC 150 mcg propofol 10 mg/mL infusion (DIPRIVAN) intravenous, Continuous Infusion: Per Instructions PRN, Starting on Duyen 05/02/23 at 0812, Anesthesia Intra-op Rate/Dose Change 05/02/2023 8:59 AM RN ORTHOPAEDIC 50 mcg/kg/min 16.59 mL/hr Rate/Dose Change 05/02/2023 8:26 AM RN ORTHOPAEDIC 85 mcg/kg/min 28.2 03 mL/hr Rate/Dose Change 05/02/2023 8:19 AM RN ORTHOPAEDIC 100 mcg/kg/min 33. 18 mL/hr propofoL injection (DIPRIVAN) intravenous, As needed, Starting on Duyen 05/02/23 at 0812, Anesthesia Intra-op Given 05/02/2023 8:12 AM RN ORTHOPAEDIC 110 mg rocuronium injection (ZEMURON) intravenous, As needed, Starting on Duyen 05/02/23 at 0813, Anesthesia Intra-op Given 05/02/2023 8:13 AM RN ORTHOPAEDIC 50 mg sugammadex injection (BRIDION) intravenous, As needed, Starting on Duyen 05/02/23 at 0905, Anesthesia Intra-op Given 05/02/2023 9:05 AM RN ORTHOPAEDIC 140 mg documented in this encounter Additional Health Concerns Assessment Noted Time PHQ-9 Depression Total Score: 21 012 10:33 AM RN ORTHOPAEDIC documented as of this encounter Care Teams Storyboard Artist Relationship Specialty Start Date End Date Elsewhere, Pcp PCP - General Internal Medicine 06/26/22 documented as of this encounter
--- OUTSIDE RECORDS SUMMARY | 2023-05-17 08:53 | XMS_ITS | Encounter Summary ---
Author Name Unknown Organization [facility] Address [address] [place] [address] Care Team Providers Care Special Class Welder Name Role Phone Elsewhere, Pcp Primary Care Provider Unavailabl e Encounter Details Date Type Department Care Team (Latest Contact Info) Description 05/08/2023 8:45 AM INSURANCE POLICY ISSUE CLERK Ancillary Procedure Department of Gastroenterology Social History [...] money to buy more. Often true 01/02/20 23 Within the past 12 months, t he [...] (Latest Contact Info) Description 05/28/2023 3:30 PM INSURANCE POLICY ISSUE CLERK Clinical Communication Virtual Review in [place], [place] [address] [place] [address] 05/30/2023 2:30 PM INSURANCE POLICY ISSUE CLERK Comprehensive Visit Division of Pain Medicine in [place], [place] [address] [place] [phone] Gricel Lynch, ATUL, C.N.P. [address] [place] [phone] 07/08/2023 12:15 PM CDT Appointment Division of Gastroenterology in [place], [place] [address] [place] [phone] Jose Roberto Patterson M.D. [address] [place] [phone] documented as of this encounter Procedures Procedure Name Priority Date/Time Associated Diagnosis Comments GASTROENTEROLOGY IMAGE EXAM Routine 05/08/2023 8:45 AM INSURANCE POLICY ISSUE CLERK documented in this encounter Results * ERCP-Gastroenterology Image Exam (05/08/2023 8:45 AM INSURANCE POLICY ISSUE CLERK) Narrative [facility] - 05/08/2023 3:49 PM INSURANCE POLICY ISSUE CLERK This order has been created and auto-finalized [...] Depression Total Score: 21 012 10:33 AM INSURANCE POLICY ISSUE CLERK documented as of this encounter Care Teams Special Class Welder Relationship Specialty Start Date End Date Elsewhere, Pcp PCP - General Internal Medicine 06/26/22 documented as of this encounter
--- OUTSIDE RECORDS SUMMARY | 2023-05-17 08:53 | XMS_ITS | Encounter Summary ---
Author Name Unknown Organization [facility] Address [address] [place] [address] Care Team Providers Care Compensation Analyst Name Role Phone Elsewhere, Pcp Primary Care Provider Unavailabl e Reason for Referral * Outpatient (Routine) - Closed Specialty Diagnoses / Procedures Referred By Olivia t Referred To Contact Diagnoses Pancreatitis Chronic (HCC) Procedures ERCP Jose Roberto Patterson M.D. [address] [place] [phone] [facility] Referral ID Status Reason Start Date Expiration Date Visits Re quested Visits Authorized [id number] Closed 12/27/2022 12/27/2023 1 1 OSITE WORKER Reason for Visit * Outpatient (Routine) - Closed Specialty Diagnoses / Procedures Referred By Olivia gonzalez Referred To Contact Diagnoses Pancreatitis Chronic (HCC) Procedures ERCP Jose Roberto Patterson M.D. [address] [place] [phone] [facility] Referral ID Status Reason Start Date Expiration Date Visits Re quested Visits Authorized [id number] Closed 12/27/2022 12/27/2023 1 1 Encounter Details Date Type Department Care Team (Latest Contact Info) Description 05/08/2023 7:59 AM COMPOSITE WORKER - 05/08/2023 8:02 AM COMPOSITE WORKER Hospital Encounter Division of Gastroenterology in [place], [place] [address] [place] [phone] Jose Roberto Patterson M.D. [address] [place] [phone] Alverto Bunch M.D. [address] [place] [phone] Pancreatitis Chronic (HCC) Discharge Disposition: Home or [...] your living situation today? I have a [facility] place to live 01/01/2023 Sex and Gender Information Value Date Recorded Sex Assigned at Female 01/01/2023 9:08 AM CDT Gender Identity Female 01/01/2023 9:08 AM CDT Sexual Orientation Straight 01/01/2023 9: 08 AM CDT documented as of this encounter Discharge Instructions * Attachments The following attachments cannot be sent through Care Everywhere. * Care Following Upper Endoscopy (Yi) * Clear Liquid Diet (Yi) documented in this encounter Medications at Time [...] (six) hours as needed for pain. 0 BD Ultra-Fine Micro Pen Needle 32 gauge x 1/4 needle 0 04/29/2023 clotrimazole (LOTRIMIN) 1 % cream APPLY TO AFFECTED AREA(S) TWO TIMES A DAY FOR 7 DAYS 0 04/19/2023 cyclobenzaprine (FLEXERIL) 10 mg tablet Take 10 mg by mouth 3 (three) times a day as needed. 0 07/26/2022 donepeziL (ARICEPT) 5 mg tablet Take by mouth daily. 0 05/17/2021 DULoxetine (CYMBALTA) [address] capsule Take 30 mg by mouth every morning. 0 fentaNYL (DURAGESIC) 12 mcg/hr patch States it fell off 0 01/31/2023 hydrocortisone (INSTACORT) 0.5 % cream ONE APPLICATION TOPICALLY TWICE DAILY NEEDED FOR RASH 0 04/19/2023 insulin glargine (LANTUS) 100 unit/mL injection Inject 30 Units under the skin 2 (two) times a day. Full dose last night. None today 0 insulin lispro 100 unit/mL injection Not started yet 0 04/29/2023 losartan (COZAAR) 100 mg tablet Take 1 tablet by mouth at bedtime. 0 01/24/2015 montelukast (SINGULAIR) 10 mg tablet Take 10 mg by mouth at bedtime. 0 nystatin (MYCOSTATIN) 100,000 unit/mL suspension TAKE 4MLS BY MOUTH FOUR TIMES DAILY FOR 7 DAYS; ADMINISTER ONE HALF DOSE IN EACH SIDE OF THE MOUTH 0 04/19/2023 ondansetron ODT (ZOFRAN-ODT) 4 mg disintegrating tablet [...] 0 01/02/2023 documented as of this encounter Miscellaneous Notes * Result Encounter Note - Jose Roberto Patterson M.D. - 05/09/2023 8:15 AM COMPOSITE WORKER I had a chance to speak with the patient on the afternoon of her procedure. She is grateful that the stone was able to be extracted. She has not noticed an improvement in her pain after ESWL. She hasan appointment with pain medicine next month. Recommend scheduling a repeat ERCP with myself in thenext 6-8 weeks as I do not have available clinic slots to see the patient in clinic. OSITE WORKER documented in this encounter Plan of Treatment Upcoming Encounters Date Type Department Care Team (Latest Contact Info) Description 05/28/2023 3:30 PM COMPOSITE WORKER Clinical Communication Virtual Review in [address] [phone] 05/30/2023 2:30 PM COMPOSITE WORKER Comprehensive Visit Division of Pain Medicine in [address] [phone] Gricel Lynch, MANUFACTURING TEAM LEADER, C.N.P. [address] [place] [phone] 07/08/2023 12:15 PM CDT Appointment Division of Gastroenterology in [address] [phone] Jose Roberto Patterson M.D. [address] [place] [phone] Scheduled Orders Name Type Priority Associated Diagnoses Orde r Schedule Glucose, POCT Point of Care Testing-Docked Device Routine Routine lab collecti on (next collection) for 1 Occurrences starting 05/08/2023 until 05/08/2023 documented as of this encounter Procedures Procedure Name Priority Date/Time Associated Diagnosis Comments ERCP Routine 05/08/2023 8:45 AM COMPOSITE WORKER Pancreatitis Chronic (HCC) ERCP Routine 05/08/2023 8:45 AM COMPOSITE WORKER Pancreatitis Chronic (HCC) documented in this encounter Results * ERCP (05/08/2023 8:45 AM COMPOSITE WORKER) 05/08/2023 8:45 AM COMPOSITE WORKER [facility] 05/08/2023 3:41 PM COMPOSITE WORKER Post-op Diagnoses: ? - The major papilla was adjacent to a diverticulum. ? - Prior biliary sphincterotomy appeared open. ? - A pancreatic sphincterotomy was performed. ? - The pancreatic sphincterotomy and the ventral and main duct were ? successfully dilated to 6 mm. ? - Pancreatoscopy and pancreatic stone electrohydraulic lithotripsy were ? both successful. ? - Pancreatic stones largely removed after lithotripsy. A second stone ? near the minor papilla or within the parenchyma likely remains, but can ? be left intact if main duct drainage is open. ? - One pancreatic stent was placed into the mid pancreatic body. Narrative [facility] [employer] - 05/08/2023 3:41 PM COMPOSITE WORKER [facility] Patient Name: Yary Prince Date of : 1955 Age: 67 Procedure Date: 05/08/2023 Procedure: ? ERCP Providers: ? Alverto Bunch MD Referring Provider: ?Jose Roberto Patterson MD Pre-op Diagnoses: ?Abdominal pain of suspected pancreatic origin, ? Chronic pancreatitis, Pancreatic duct stone Recommendation: ? - Clear liquid diet for 1 day. ? - Observe patient's clinical course. ? - Repeat ERCP in 6-8 weeks to remove stent and ensure adequate stone ? clearance and drainage. Findings: ? A rail express clerk film of the abdomen was obtained. Desne calcifications were ? present in the region of the pancreatic head. The duodenoscope was ? advanced to the major papilla in the descending duodenum. Examination of ? the pharynx, larynx and associated structures, and upper GI tract was ? normal. The major papilla was just posterior to a very large and ? distorting duodenal diverticulum. Overlying redundant mucosal folds hid ? the biliary orifice, which appeared to be opened by sphincterotomy in ? the past. The pancreatic opening was accessed somewhat blindly by wire ? manipulation inferior to the biliary os on the ampullary floor. ? Duodenoscope positioning was challenging to maintain in adequately deep ? position. Wire access to the upper ventral duct enabled initial ventral ? pancreatography, which demonstrated a dilated segment with dilated ? sidebranches, filling of a generous accessory duct and filling defects ? consistent with stones in the large ventral lumen and an obstructing ? stone at the genu. No contast drained via the accessory duct nor upward ? to the main duct in the body or tail. A 4 mm ventral pancreatic ? sphincterotomy was made with a traction (standard) sphincterotome using ? [employer] electrocautery. There was no post-sphincterotomy bleeding. ? Dilation of the main pancreatic sphincterotomy site with a 6 mm balloon ? dilator demonstrated a moderate waist with 100 percent obliteration ? after a minute of observation. The bile duct was explored endoscopically ? using the [employer] direct visualization system. The SpyScope was ? advanced to the ventral pancreatic duct and eventually to the genu. ? Visibility with the scope was good. The ventral duct and the genu ? contained two stones, marietta larger of which was 8 mm in diameter. ? Electrohydraulic lithotripsy was successful, enabling wire and catheter ? passage to the body and tail. To further clear stone debris the dorsal ? pancreatic duct was swept with an 8-10 mm balloon and a wire guided ? basket, starting in the mid body of the pancreas. Numerous stone ? fragements were removed. Undoubtedly a few fragments remain behind. One ? 8.5 Fr by 12 cm pancreatic stent with no external and no internal flaps ? was placed 10 cm into the ventral pancreatic duct. Clear fluid flowed ? through the stent which was in good position. Consideration was given to ? parallel stenting of the pancreatic os with a second stent but device ? stability proved challenging and this was felt optional and therefore ? not pursued. Procedural Details: ? The patient was seen, evaluated, history reviewed, airway and heart-lung ? exams were performed by licensed provider and were satisfactory for ? planned level of sedation care. The risks, benefits and alternatives for ? the procedure and sedation were discussed and informed consent was ? obtained. A procedural pause was conducted in the presence of assisting ? personnel to verify the correct patient identity and procedure to be ? performed. Throughout the procedure, the patient's blood pressure, ? pulse, and oxygen saturations were monitored continuously. The ? Duodenoscope was introduced through the mouth, and advanced to the ? duodenum and used to inject contrast into the bile duct and dorsal ? pancreatic duct. The Spyglass was introduced through the mouth, and ? advanced to the duodenum. The ERCP was technically difficult and complex ? due to unusual anatomy and the complexity of the pathology being ? addressed. The patient tolerated the procedure well. Complications: ? No immediate complications. Estimated Blood Loss: ?Estimated blood loss: none. Attending Participation: I personally performed the entire procedure. Alverto Bunch MD 05/08/2023 3:40:52 PM This report has been signed electronically. Number of Addenda: 0 Note Initiated On: 05/08/2023 8:45 AM Jose Roberto Patterson M.D. GI PROCEDURE O SHWETHA Performing Organization Address City/State/[facility] Number [facility] documented in this encounter Visit Diagnoses Diagnosis Pancreatitis Chronic (HCC) documented in this encounter Administered Medications Inactive Administered Medications - up to 3 most recent administrations Medication Order MAR Action Action Date Dose Rate Site diclofenac suppository As needed, Starting on Sat05/08/23 at 1030, Intra-Op Given 05/08/2023 11:50 AM COMPOSITE WORKER 100 mg documented in this encounter Additional Health Concerns Assessment Noted Time PHQ-9 Depression Total Score: 21 012 10:33 AM COMPOSITE WORKER documented as of this encounter Care Teams Compensation Analyst Relationship Specialty Start Date End Date Elsewhere, Pcp PCP - General Internal Medicine 06/26/22 documented as of this encounter
--- OUTSIDE RECORDS SUMMARY | 2023-05-17 08:53 | XMS_ITS ---
Author Name Unknown Organization [facility] Address [address] [place] [address] Care Team Providers Care Skilled Labor Name Role Phone Unavailable Unavailable Unavailable Surgery Details Not on file Complications Check Surgery Details section. Procedure Estimated Blood Loss Check Surgery Details section. Procedure Findings Check Surgery Details section. Procedure Specimens Taken Check Surgery Details section.
--- OUTSIDE RECORDS SUMMARY | 2023-05-17 08:53 | XMS_ITS | Encounter Summary ---
Author Name Unknown Organization [facility] Address [address] [place] [phone] Care Team Providers Care Social Media Community Manager Name Role Phone Elsewhere, Pcp Primary Care Provider Unavailabl e Reason for Referral * Outpatient (Routine) - Authorized Specialty Diagnoses / Procedures Referred By Olivia t Referred To Contact Diagnoses Pancreatitis Chronic (HCC) Procedures ERCP Jose Roberto Patterson M.D. [address] [place] [phone] [facility] Referral ID Status Reason Start Date Expiration Date V isits Requested Visits Authorized [id number] Authorized 05/09/2023 05/08/2024 1 1 CLOSING MACHINE OPERATOR Encounter Details Date Type Department Care Team (Latest Contact Info) Description 05/09/2023 Orders Only Division of Gastroenterology in [place], [place] [address] [place] [phone] Jose Roberto Patterson M.D. [address] [place] [phone] Pancreatitis Chronic (HCC) (Primary Dx) Social History [...] living situation today? I have a [facility] place to live 01/01/2023 Sex and Gender Information Value Date Recorded Sex Assigned at Female 01/01/2023 9:08 AM CDT Gender Identity Female 01/01/2023 9:08 AM CDT Sexual Orientation Straight 01/01/2023 9: 08 AM CDT documented as of this encounter Plan of Treatment Upcoming Encounters Date Type Department Care Team (Latest Contact Info) Description 05/28/2023 3:30 PM TUBE CLOSING MACHINE OPERATOR Clinical Communication Virtual Review in [place], [place] [address] [place] [address] 05/30/2023 2:30 PM TUBE CLOSING MACHINE OPERATOR Comprehensive Visit Division of Pain Medicine in [place], [place] [address] [place] [phone] Gricel Lynch, REMOTE SENSING ENGINEER, C.N.P. [address] [place] [phone] 07/08/2023 12:15 PM CDT Appointment Division of Gastroenterology in [place], [place] [address] [place] [phone] Jose Roberto Patterson M.D. [address] [place] [phone] Scheduled Orders Name Type Priority Associated Diagnoses Orde r Schedule ERCP GI Routine Pancreatitis Chronic (HCC) Expected: 07/08/2023, Expires: 08/06/2024 documented as of this encounter Visit Diagnoses Diagnosis Pancreatitis Chronic (HCC)- Primary documented in this encounter Additional Health Concerns Assessment Noted Time PHQ-9 Depression Total Score: 21 012 10:33 AM TUBE CLOSING MACHINE OPERATOR documented as of this encounter Care Teams Social Media Community Manager Relationship Specialty Start Date End Date Elsewhere, Pcp PCP - General Internal Medicine 06/26/22 documented as of this encounter
--- OUTSIDE RECORDS SUMMARY | 2023-05-17 08:53 | XMS_ITS | Clinical Summary ---
Author Name Unknown Organization [facility] Address [address] [place] [address] Care Team Providers Care Reclaimer Name Role Phone Elsewhere, Pcp Primary Care Provider Unavailabl e Source Comments Patient records contain information from all sites at [facility]. For routine questions regarding patient records, call [phone] during business hours, M-F 8:00 AM - 5:00 PM Central Time. Record requests for emergency care only can be directed to [phone] at any time.[facility] Allergies Active Allergy Reactions Criticality Noted [...] 01/02/2023 Active fentaNYL (DURAGESIC) 12 mcg/hr patch States it fell off 0 01/31/2023 Active acetaminophen (TYLENOL) 500 mg tablet Take 1,000 mg by mouth every 6 (six) hours as needed. 0 01/08/2023 Active apixaban (Eliquis DVT-PE Treatment 30 Day Starter Pack) 5 mg (74 tabs) tablet Take by mouth as directed on starter pack. 0 01/08/2023 Active insulin glargine (LANTUS) 100 unit/mL injection Inject 30 Units under the skin 2 (two) times a day. Full dose last night. None today 0 Active clotrimazole (LOTRIMIN) 1 % cream APPLY TO AFFECTED AREA(S) TWO TIMES A DAY FOR 7 DAYS 0 04/19/2023 Active hydrocortisone (INSTACORT) 0.5 % cream ONE APPLICATION TOPICALLY TWICE DAILY NEEDED FOR RASH 0 04/19/2023 Active insulin lispro 100 unit/mL injection Not started yet 0 04/29/2023 Ac tive BD Ultra-Fine Micro Pen Needle 32 gauge x 1/4 needle 0 04/29/2023 Active nystatin (MYCOSTATIN) 100,000 unit/mL suspension TAKE 4MLS BY MOUTH FOUR TIMES DAILY FOR 7 DAYS; ADMINISTER ONE HALF DOSE IN EACH SIDE OF THE MOUTH 0 04/19/2023 Active atorvastatin (LIPITOR) 10 mg tablet Take 10 mg by mouth. 0 Discontinue d(Drug interaction ) Active Problems Problem Noted Date Diagnosed Date [...] Encounters Date Type Department Care Team Description 05/09/2023 Orders Only Division of Gastroenterology in [place], [place] [address] [place] [phone] Jose Roberto Hays M.D. Pancreatitis Chronic (HCC) (Primary Dx) 05/08/2023 9:03 AM BAND MAKER Anesthesia Event Division of Gastroenterology in [place], [place] [address] [place] [phone] Tami Sheets APRN, Austin Helm III, M.D. 05/08/2023 8:45 AM BAND MAKER Ancillary Procedure Department of Gastroenterology 05/08/2023 8:03 AM BAND MAKER - 05/08/2023 11:59 PM BAND MAKER Hospital Encounter Department of Radiology, [facility], in [place], [place] [address] [place] [address] Jose Roberto Hays M.D. Pancreatitis Chronic (HCC) Discharge Disposition: Home or Self Care 05/08/2023 7:59 AM BAND MAKER - 05/08/2023 8:02 AM BAND MAKER Hospital Encounter Division of Gastroenterology in [place], [place] [address] [place] [address] Jose Roberto Hays M.D. Petersen, Bret T, M.D. Pancreatitis Chronic (HCC) Discharge Disposition: Home or Self Care 05/02/2023 8:00 AM BAND MAKER Anesthesia Event [facility] [address] [place] [address] Shane Carlos M.D. 05/02/2023 7:45 AM BAND MAKER - 05/02/2023 9:26 AM BAND MAKER Surgery [facility] [address] [place] [address] Luis Andrew M.D., M.P.H. Pancreatic LITHOTRIPSY EXTRACORPOREAL SHOCK WAVE UNILATERAL, possible multiple trips to operating room in 90 days, proceed as indicated. 05/02/2023 5:56 AM BAND MAKER - 05/02/2023 12:04 PM BAND MAKER Hospital Encounter Outpatient Surgery Unit in [place], [place] [address] [place] [phone] Luis Andrew M.D., M.P.H. Discharge Disposition: Home or Self Care 04/18/2023 Clinical Communication Department of Urology in [place], [place] [address] [place] [address] Luis Andrew M.D., M.P.H. 04/03/2023 1:08 AM BAND MAKER - 04/03/2023 3:18 AM BAND MAKER Emergency [facility] [address] [place] [phone] Madhav Basurto APRN, C.N.P., D.N.P. Pancreatitis Chronic Recurrent (HCC) (Primary Dx); Abdominal Pain; Constipation Slow Transit Discharge Disposition: Home or Self Care 04/02/2023 Clinical Communication Division of Gastroenterology in [place], [place] [address] [place] [address] Jose Roberto Hays M.D. 02/19/2023 5:47 AM BAND MAKER - 02/19/2023 9:13 AM BAND MAKER Hospital Encounter [facility] 02 4 AM ADMIT [address] [place] [address] Luis Andrew M.D., M.P.H. Discharge Disposition: Home or Self Care 02/19/2023 5:10 AM BAND MAKER - 02/19/2023 6:50 AM BAND MAKER Surgery [facility] OR [address] [place] [address] Luis Andrew M.D., M.P.H. Not Performed Pancreatic LITHOTRIPSY EXTRACORPOREAL SHOCK WAVE UNILATERAL, possible multiple trips to operating room in 90 days, proceed as indicated. 02/19/2023 Clinical Communication Division of Gastroenterology in [place], [place] [address] [place] [address] Jose Roberto Hays M.D. from Last 3 Months Immunizations Name Administration Dates Next Due HZV (ZOSTAVAX) 05/22/2016 Influenza (IM) Preservative Free 01/14/2013,12/31 Influenza TIV (IM) 02/17/2016, 5,02/11/2014,2011,12/07/2010,01/09/2010,04/26/2005,1 ,03/13/2000 Influenza, Seasonal, Injectable 02/17/20 16,01/10/2015,02/11/2014,2011,12/07/2010,04/26/2005,01/26/2004 Influenza, Unspecified 02/11/2014,2012,01/10/2012,2010,01/13/2010,01/22/2008 PCV13 09/21/2019,08/12/2015 PPSV23(Discontinued) 06/29/2014,04/01/1998 Td (Adult), adsorbed 08/21/2004 Td Preservative [...] living situation today? I have a [facility] place to live 01/01/2023 Sex and Gender Information Value Date Recorded Sex Assigned at Female 01/01/2023 9:08 AM CDT Gender Identity Female 01/01/2023 9:08 AM CDT Sexual Orientation Straight 01/01/2023 9: 08 AM CDT Last Filed Vital Signs Vital Sign Reading Time Taken Comments Blood Pressure 135/63 05/08/2023 1:31 PM BAND MAKER Pulse 68 05/08/2023 1:36 PM BAND MAKER Temperature 36.4 ??C (97.5 ??F) 05/08/2023 2:02 PM CS T Respiratory Rate 13 05/08/2023 1:36 PM BAND MAKER Oxygen Saturation 95% 05/08/2023 1:36 PM BAND MAKER Inhaled Oxygen Concentration - - Weight 55.3 kg (121 lb 14.6 oz) 05/02/2023 6:25 AM BAND MAKER Height 158.5 cm (5' 2.4) 05/02/2023 6:25 AM BAND MAKER Body Mass Index 22.01 05/02/2023 6:25 AM BAND MAKER Plan of Treatment Upcoming Encounters Date Type Department Care Team (Latest Contact Info) Description 05/28/2023 3:30 PM BAND MAKER Clinical Communication Virtual Review in [place], [place] [address] [place] [address] 05/30/2023 2:30 PM BAND MAKER Comprehensive Visit Division of Pain Medicine in [place], [place] [address] [place] [address] Gricel Lynch, CHAIN SALES CONSULTANT, C.N.P. [address] [place] [phone] 07/08/2023 12:15 PM CDT Appointment Division of Gastroenterology in [place], [place] [address] [place] [phone] Jose Roberto Patterson M.D. [address] [place] [phone] Health Maintenance Due Date Last Done Comments CT Colonography 1954 Cologuard 1954 Diabetic Office Visit with F oot Exam 1954 FIT 1954 Generalized Anxiety (CLIFTON-7) 1954 Hepatitis C Screening 1954 COVID-19 Vaccine (#1) 1954 Dilated Eye Exam 11/11/2011 11/10/2010 Lung Cancer Screening 03/13/2012 03/13/2011 Urine Albumin 05/04/2012 05/04/2011 Mammogram 10/15/2013 10/15/2012 (Perf ormed elsewhere), 05/30/2012 (Performed elsewhere), 05/11/2011, Additional history exists Zoster Vaccines (2 of 3) 07/17/2016 05/22/2016 Pneumococcal vaccine (65+ ye ars) (3 of 3 - PPSV23 or PCV20) 09/20/2020 09/21/2019, 08/12/2015, 06/29/2014, Additional history exists Colonoscopy 09/11/2021 09/12/2011 (Perf ormed elsewhere), 06/13/2004 Colorectal Cancer Screening 09/11/2021 Influenza Vaccine (#1) 2022 6, 02/17/2016, 02/17/2016, Additional history exists Controlled Substance Agreement 02/19/2023 Controlled Substance Monitor ing (PHQ-9) 02/19/2023 Controlled Substance Monitoring 02/19/2023 Opioid Risk Tool (ORT) 02/19/2023 PEG assessment for Opioid therapy 02/19/2023 Opioid Use Disorder (OUD) Screening 02/20/2023 Depression Screening (Annual PHQ-2) 04/01/2023 Hemoglobin A1C 08/20/2023 02/19/2023, 03/04/2013, 11/30/2012 (Performed elsewhere), Additional history exists Office [...] 07/24/2032 07/24/2022, 01/30/2006, 08/21/2004, Additional history exists Fall Risk Screen (Annual) Completed 05/08/2023 Medical Devices Implanted Type Area Yardage Tufting Machine Operator Device Identifier Shelf Expiration Date Model / Serial / Lot Stnt Jhl Pncr Wdg 8.5fx22 - [id number] Implanted:Qty : 1 on 05/08/2023 by Alverto Bunch M.D. at [facility] Pancreatic Stent [employer] 03/12/2026 [id number] / / [id number] Description:8.5 x 12 Procedures Procedure Name Priority Date/Time Associated Diagnosis Comments FL FLUORO LESS THAN 1 HOUR RAD - Routine (most inpatients and all outpatients) 05/08/2023 11:55 AM BAND MAKER Pancreatitis Chronic (HCC) LDA ANE ENDOTRACHEAL AIRWAY Routine 05/08/2023 9:15 AM BAND MAKER ERCP Routine 05/08/2023 8:45 AM BAND MAKER Pancreatitis Chronic (HCC) ERCP Routine 05/08/2023 8:45 AM BAND MAKER Pancreatitis Chronic (HCC) GASTROENTEROLOGY IMAGE EXAM Routine 05/08/2023 8:45 AM BAND MAKER GLUCOSE POCT, B Routine 05/02/2023 8:57 AM BAND MAKER LDA ANE ENDOTRACHEAL AIRWAY Routine 05/02/2023 8:16 AM BAND MAKER LITHOTRIPSY EXTRACORPOREAL SHOCK WAVE UNILATERAL 05/02/2023 7:45 AM BAND MAKER Stone Pancreatic Duct GLUCOSE POCT, B Routine 05/02/2023 6:[address] ABDOMEN PELVIS WITH IV CONTRAST RAD - Semiurgent (Fast; most ED patients; some inpatients) 04/03/2023 2:[address] HEAD WITHOUT IV CONTRAST RAD - Semiurgent (Fast; most ED patients; some inpatients) 04/03/2023 2:30 AM BAND MAKER LIPASE, S/P STAT 04/03/2023 1:41 AM BAND MAKER LACTATE, B/P STAT 04/03/2023 1:41 AM BAND MAKER C-REACTIVE PROTEIN (CRP), S/P STAT 04/03/2023 1:41 AM BAND MAKER COMPREHENSIVE METABOLIC PANEL, S/P STAT 04/03/2023 1:41 AM BAND MAKER CBC WITH DIFFERENTIAL, B STAT 04/03/2023 1:41 AM BAND MAKER GLUCOSE POCT, B Routine 02/19/2023 6:17 AM BAND MAKER HEMOGLOBIN A1C, B Routine 02/19/2023 6:1 7 AM BAND MAKER from Last 3 Months Results * FL Fluoro Less Than 1 Hour (05/08/2023 11:55 AM BAND MAKER) Narrative ERCP LOS RST - 05/08/2023 11:56 AM BAND MAKER This exam does not require a radiologist review or interpretation. Please refer to the patient's medical record on this date for clinical details. Jose Roberto Patterson M.D. IMG FLUOROSCOP Y PROCEDURES ERCP LOS RST * LDA ANE ENDOTRACHEAL AIRWAY (05/08/2023 9:15 AM BAND MAKER) Narrative Tami Sheets APRN, CRNA - 05/08/2023 9:15 AM BAND MAKER Tami Sheets APRN, CRNA ? 05/08/2023 ??9:39 [...] ETT location: oral VL device: glide scope [place] scope blade size: 3 Tube size: 7 [...] Notable Events: no complications Tami Sheets APRN, CRNA ANESTHESIA VERNON VELAZQUEZ * ERCP (05/08/2023 8:45 AM BAND MAKER) 05/08/2023 8:45 AM BAND MAKER Impressions [employer] - 05/08/2023 3:41 PM BAND MAKER Post-op Diagnoses: ? - The major papilla [...] placed into the mid pancreatic body. Narrative [employer] - 05/08/2023 3:41 PM BAND MAKER Gonda 2 GI Patient Name: Yary Prince [...] ? clearance and drainage. Findings: ? A blue prints trimmer film of the abdomen was obtained. Desne [...] duct was explored endoscopically ? using the [employer] direct visualization system. The SpyScope was ? [...] GI PROCEDURE O RDERABLES Performing Organization Address [facility] Co de Phone Number [employer] NA * ERCP-Gastroenterology Image Exam (05/08/2023 8:45 AM BAND MAKER) Narrative IIMS - 05/08/2023 3:49 PM BAND MAKER This order has been created and auto-finalized to support the import of images acquired without order. The clinical documentation to support these images can be found on the encounter that produced images. Provider Not In System IMG NON RAD IMAGI NG PROCEDURES Performing Organization Address [facility] Co de Phone Number IILA NA * Glucose, POCT (05/02/2023 8:57 AM BAND MAKER) Only the most recent of3 resultswithin the time period is included. Glucose, POCT, B 140 70 - 140 mg/dL 05/02/2023 9:00 AM BAND MAKER PCDE Site Capillary 05/02/2023 9:00 AM BAND MAKER PCDE Blood 05/02/2023 8:57 AM BAND MAKER 05/02/2023 9:00 AM BAND MAKER Unknown Provider LAB POCT ORDERABLES- MANUAL POC [facility] [address] [place] [address], [place] PCDE [facility] [place] POC [address] [place] [address] * LDA ANE ENDOTRACHEAL AIRWAY (05/02/2023 8:16 AM BAND MAKER) Narrative Cassie Acuña APRN, CRNA - 05/02/2023 8:16 AM BAND MAKER Cassie Acuña APRN, CRNA ? 05/02/2023 ??8:30 [...] ETT location: oral VL device: glide scope [place] scope blade size: 3 Tube size: 7 [...] complications Shane Carlos M.D. ANESTHESIA ORDERAB LES * CT Abdomen Pelvis with IV Contrast (04/03/2023 2:34 AM BAND MAKER) Anatomical Region Laterality Modality Abdomen, Pelvis, Abdominal R ST LOS, Abdominal ARZ LOS, Abdominal FLA LOS N/A Computed Tomography 04/03/2023 2:24 AM BAND MAKER Impressions 04/03/2023 2:53 AM BAND MAKER 1. Sequela of chronic pancreatitis without imaging findings of acute pancreatitis. 2. Large colonic stool burden could indicate constipation. Narrative 04/03/2023 2:53 AM BAND MAKER EXAM: CT ABDOMEN PELVIS WITH IV CONTRAST [...] Head without IV Contrast (04/03/2023 2:30 AM BAND MAKER) Anatomical Region Laterality Modality Head, Neuroradiology RST LOS , Neuroradiology [facility], Neuroradiology FLA LOS N/A Computed Tomography 04/03/2023 2:18 AM BAND MAKER Impressions 04/03/2023 2:37 AM BAND MAKER 1. ??Negative for acute intracranial abnormality. 2. ??Stable patchy white matter hypoattenuation compatible with known demyelinating disease. Narrative 04/03/2023 2:37 AM BAND MAKER EXAM: CT HEAD WITHOUT IV CONTRAST COMPARISON: [...] white matter hypoattenuation compatible with knowndemyelinating disease. Mona Tan APRN.N.P., D.N.P. IM CT PROCEDURES * (ABNORMAL) CBC with Differential, Blood (04/03/2023 1:41 AM BAND MAKER) [facility] Hemoglobin 12.0 11.6 - 15.0 g/dL 04/03/2023 2:28 AM BAND MAKER CNFL Hematocrit 35.4(L) 35.5 - 44.9 % 04/03/2023 2:28 AM BAND MAKER CNFL Erythrocytes 3.75(L) 3.92 - 5.13 x10(12)/L 04/03/2023 2:28 AM BAND MAKER CNFL MCV 94.4 78.2 - 97.9 fL 04/03/2023 2:28 AM BAND MAKER CNFL RBC Distrib Width 12.2 12.2 - 16.1 % 04/03/2023 2:28 AM BAND MAKER CNFL Platelet Count 212 157 - 371 x10(9)/L 04/03/2023 2:28 AM BAND MAKER CNFL Leukocytes 4.7 3.4 - 9.6 x10(9)/L 04/03/2023 2:28 AM BAND MAKER CNFL Neutrophils 1.91 1.56 - 6.45 x10(9)/L 04/03/2023 2:28 AM BAND MAKER CNFL Lymphocytes 1.81 0.95 - 3.07 x10(9)/L 04/03/2023 2:28 AM BAND MAKER CNFL Monocytes 0.85(H) 0.26 - 0.81 x10(9)/L 04/03/2023 2:28 AM BAND MAKER CNFL Eosinophils 0.15 0.03 - 0.48 x10(9)/L 04/03/2023 2:28 AM BAND MAKER CNFL Basophils <0.04 0.01 - 0.08 x10(9)/L 04/03/2023 2:28 AM BAND MAKER CNFL Blood (Blood, Venous) 04/03/2023 1:41 AM BAND MAKER 04/03/2023 2:03 AM BAND MAKER Mona Tan APRN.N.P., D.N.P. LAB BLOOD ADD-ON Performing Organization Address [facility] [place] [place] [address], [place] [address] * CRP (C-Reactive Protein) (04/03/2023 1:41 AM BAND MAKER) C-Reactive Protein (CRP), P 3.5 <5.0 mg/L 04/03/2023 2:24 AM BAND MAKER CNFL Blood (Blood, Venous) 04/03/2023 1:41 AM BAND MAKER 04/03/2023 2:03 AM BAND MAKER Madhav Basurto APRN, Mona.N.P., D.N.P. LAB BLOOD ADD-ON Performing Organization Address [facility] [place] [place] [address], [place] [address] * (ABNORMAL) Lipase (04/03/2023 1:41 AM BAND MAKER) Lipase, P 9(L) 13 - 60 U/L 04/03/2023 2: 24 AM BAND MAKER CNFL Blood (Blood, Venous) 04/03/2023 1:41 AM BAND MAKER 04/03/2023 2:03 AM BAND MAKER Sandra Tan APRNN.P., D.N.P. LAB BLOOD ADD-ON Performing Organization Address City/[facility]/[place] [address], [place] [address] * Lactate (04/03/2023 1:41 AM BAND MAKER) Lactate, P 1.0 0.5 - 2.2 mmol/L 04/03/2023 2:22 AM BAND MAKER CNFL Blood (Blood, Venous) 04/03/2023 1:41 AM BAND MAKER 04/03/2023 2:03 AM BAND MAKER Sandra Tan APRNN.P., D.N.P. LAB BLOOD NON ADD-ON Performing Organization Address [facility] [place] [address], [place] [address] * (ABNORMAL) Comprehensive Metabolic Panel (04/03/2023 1:41 AM BAND MAKER) Potassium, P 3.9 3.6 - 5.2 mmol/L 04/03/2023 2:24 AM BAND MAKER CNFL Sodium, P 134(L) 135 - 145 mmol/L 04/03/2023 2:24 AM BAND MAKER CNFL Chloride, P 99 98 - 107 mmol/L 04/03/2023 2:24 AM BAND MAKER CNFL Bicarbonate, P 26 22 - 29 mmol/L 04/03/2023 2:24 AM BAND MAKER CNFL Anion Gap, P 9 7 - 15 04/03/2023 2:24 AM BAND MAKER CNFL BUN (Blood Urea Nitrogen), P 13 6 - 21 mg/dL 04/03/2023 2:24 AM BAND MAKER CNFL Creatinine 0.89 0.59 - 1.04 mg/dL 04/03/2023 2:24 AM BAND MAKER CNFL Estimated GFR (eGFR) 71 >=60 mL/min/BS A 04/03/2023 2:24 AM BAND MAKER CNFL Comment: Estimated GFR calculated using the 2020 CKD_EPI creatinine equation. Calcium, Total, P 9.0 8.8 - 10.2 mg/dL 04/03/2023 2:24 AM BAND MAKER CNFL Glucose, P 188(H) 70 - 140 mg/dL 04/03/2023 2:24 AM BAND MAKER CNFL Protein, Total, P 6.2(L) 6.3 - 7.9 g/dL 04/03/2023 2:24 AM BAND MAKER CNFL Albumin, P 3.8 3.5 - 5.0 g/dL 04/03/2023 2:24 AM BAND MAKER CNFL Aspartate Aminotransferase (AST), P 27 8 - 43 U/L 04/03/2023 2:24 AM BAND MAKER CNFL Alkaline Phosphatase, P 91 35 - 104 U/L 04/03/2023 2:24 AM BAND MAKER CNFL Alanine Aminotransferase (ALT), P 30 7 - 45 U/L 04/03/2023 2:24 AM BAND MAKER CNFL Bilirubin, Total, P <0.2 0.0 - 1.2 mg/dL 04/03/2023 2:24 AM BAND MAKER CNFL Blood (Blood, Venous) 04/03/2023 1:41 AM BAND MAKER 04/03/2023 2:03 AM BAND MAKER Mona Tan APRN.N.P., D.N.P. LAB BLOOD ADD-ON [facility] [address] [place], [place] [id number], [facility] CNFL [facility] in [address] [address] * (ABNORMAL) Hemoglobin A1c (02/19/2023 6:17 AM BAND MAKER) Hemoglobin A1c, B 7.8(H) 4.0 - 5.6 % 02/19/2023 7:11 AM BAND MAKER DTL Comment: Hemoglobin A1c values greater than or equal to 6.5 percent are diagnostic for diabetes mellitus. ??Diagnosis should be confirmed by repeat testing. ??In diabetic patients, HbA1c goals should be discussed with healthcare provider. Blood (Blood, Venous) 02/19/2023 6:17 AM BAND MAKER 02/19/2023 6:33 AM BAND MAKER Luis Andrew M.D., M.P.H. LAB BLOOD ADD-ON [facility] [address] [place] [address], [place] DTL 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 See document viewer. Latest Code Status on File Code Status Date Activated Date Inactivated Comments Full Code 10/23/2022 2:51 PM 10/25/2022 1:26 AM Question Answer Comments Full Code: Discussed Care Teams Reclaimer Relationship Specialty Start Date End Date Elsewhere, Pcp PCP - General Internal Medicine 06/26/22
--- OUTSIDE RECORDS SUMMARY | 2023-05-17 08:53 | XMS_ITS | Referral Summary ---
Author Name Unknown Organization [facility] Address [address] [place] [address] Care Team Providers Care Health Insurance Sales Agent Name Role Phone Elsewhere, Pcp Primary Care Provider Unavailabl e Source Comments Patient records contain information from all sites at [facility]. For routine questions regarding patient records, call [phone] during business hours, M-F 8:00 AM - 5:00 PM Central Time. Record requests for emergency care only can be directed to [phone] at any time.[facility] Encounters Date Type Department Care Team Description 05/09/2023 Orders Only Division of Gastroenterology in [place], [place] [address] [place] [phone] Jose Roberto Hays M.D. Pancreatitis Chronic (HCC) (Primary Dx) 05/08/2023 8:45 AM REINSURANCE CLAIM ANALYST Ancillary Procedure Department of Gastroenterology 05/08/2023 8:03 AM REINSURANCE CLAIM ANALYST - 05/08/2023 11:59 PM REINSURANCE CLAIM ANALYST Hospital Encounter Department of Radiology, [facility], in [place], [place] [address] [place] [phone] Jose Roberto Hays M.D. Pancreatitis Chronic (HCC) Discharge Disposition: Home or Self Care 05/08/2023 9:03 AM REINSURANCE CLAIM ANALYST Anesthesia Event Division of Gastroenterology in [place], [place] [address] [place] [phone] Tami Sheets APRN, CRNA Patch, Richard K III, M.D. 05/08/2023 7:59 AM REINSURANCE CLAIM ANALYST - 05/08/2023 8:02 AM REINSURANCE CLAIM ANALYST Hospital Encounter Division of Gastroenterology in [place], [place] [address] [place] [address] Jose Roberto Hays M.D. Petersen, Bret T, M.D. Pancreatitis Chronic (HCC) Discharge Disposition: Home or Self Care 05/02/2023 8:00 AM REINSURANCE CLAIM ANALYST Anesthesia Event [facility] [address] [place] [address] Sahne Carlos M.D. 05/02/2023 7:45 AM REINSURANCE CLAIM ANALYST - 05/02/2023 9:26 AM REINSURANCE CLAIM ANALYST Surgery [facility] OR [address] [place] [address] Luis Andrew M.D., M.P.H. Pancreatic LITHOTRIPSY EXTRACORPOREAL SHOCK WAVE UNILATERAL, possible multiple trips to operating room in 90 days, proceed as indicated. 05/02/2023 5:56 AM REINSURANCE CLAIM ANALYST - 05/02/2023 12:04 PM REINSURANCE CLAIM ANALYST Hospital Encounter Outpatient Surgery Unit in [place], [place] [address] [place] [phone] Luis Andrew M.D., M.P.H. Discharge Disposition: Home or Self Care 04/18/2023 Clinical Communication Department of Urology in [place], [place] [address] [place] [phone] Luis Andrew M.D., M.P.H. 04/03/2023 1:08 AM REINSURANCE CLAIM ANALYST - 04/03/2023 3:18 AM REINSURANCE CLAIM ANALYST Emergency [facility] [address] [place] [phone] Madhav Basurto APRN, C.N.P., D.N.P. Pancreatitis Chronic Recurrent (HCC) (Primary Dx); Abdominal Pain; Constipation Slow Transit Discharge Disposition: Home or Self Care 04/02/2023 Clinical Communication Division of Gastroenterology in [place], [place] [address] [place] [address] Jose Roberto Hays M.D. 02/19/2023 Clinical Communication Division of Gastroenterology in [place], [place] [address] [place] [address] Jose Roberto Hays M.D. 02/19/2023 5:10 AM REINSURANCE CLAIM ANALYST - 02/19/2023 6:50 AM REINSURANCE CLAIM ANALYST Surgery [facility] [address] [place] [address] Luis Andrew M.D., M.P.H. Not Performed Pancreatic LITHOTRIPSY EXTRACORPOREAL SHOCK WAVE UNILATERAL, possible multiple trips to operating room in 90 days, proceed as indicated. 02/19/2023 5:47 AM REINSURANCE CLAIM ANALYST - 02/19/2023 9:13 AM REINSURANCE CLAIM ANALYST Hospital Encounter RST RO 02 4 AM ADMIT [address] [place] [address] Luis Andrew M.D., M.P.H. Discharge Disposition: Home or Self Care from Last 3 Months Allergies Active Allergy [...] your living situation today? I have a [facility] place to live 01/01/2023 Sex and Gender Information Value Date Recorded Sex Assigned at Female 01/01/2023 9:08 AM CDT Gender Identity Female 01/01/2023 9:08 AM CDT Sexual Orientation Straight 01/01/2023 9: 08 AM CDT Last Filed Vital Signs Vital Sign Reading Time Taken Comments Blood Pressure 135/63 05/08/2023 1:31 PM REINSURANCE CLAIM ANALYST Pulse 68 05/08/2023 1:36 PM REINSURANCE CLAIM ANALYST Temperature 36.4 ??C (97.5 ??F) 05/08/2023 2:02 PM CS T Respiratory Rate 13 05/08/2023 1:36 PM REINSURANCE CLAIM ANALYST Oxygen Saturation 95% 05/08/2023 1:36 PM REINSURANCE CLAIM ANALYST Inhaled Oxygen Concentration - - Weight 55.3 kg (121 lb 14.6 oz) 05/02/2023 6:25 AM REINSURANCE CLAIM ANALYST Height 158.5 cm (5' 2.4) 05/02/2023 6:25 AM REINSURANCE CLAIM ANALYST Body Mass Index 22.01 05/02/2023 6:25 AM REINSURANCE CLAIM ANALYST Plan of Treatment Upcoming Encounters Date Type Department Care Team (Latest Contact Info) Description 05/28/2023 3:30 PM REINSURANCE CLAIM ANALYST Clinical Communication Virtual Review in [place], [place] 200 [place] [address] 05/30/2023 2:30 PM REINSURANCE CLAIM ANALYST Comprehensive Visit Division of Pain Medicine in [place], [place] [address] [place] [phone] Gricel Lynch, ATUL, C.N.P. [address] [place] [address] 07/08/2023 12:15 PM CDT Appointment Division of Gastroenterology in [place], [place] [address] [place] [address] Jose Roberto Patterson M.D. [address] [place] [phone] Medical Devices Implanted Type Area Social Media Sr Strategy Manager Device Identifier Shelf Expiration Date Model / Serial / Lot Stnt [facility] Wdg 8.5fx22 - [id number] Implanted:Qty : 1 on 05/08/2023 by Alverto Bunch M.D. at [facility] Pancreatic Stent [employer] 03/12/2026 [id number] / / [id number] Description:8.5 x 12 Procedures Procedure Name Priority Date/Time Associated Diagnosis Comments FL FLUORO LESS THAN 1 HOUR RAD - Routine (most inpatients and all outpatients) 05/08/2023 11:55 AM REINSURANCE CLAIM ANALYST Pancreatitis Chronic (HCC) LDA ANE ENDOTRACHEAL AIRWAY Routine 05/08/2023 9:15 AM REINSURANCE CLAIM ANALYST ERCP Routine 05/08/2023 8:45 AM REINSURANCE CLAIM ANALYST Pancreatitis Chronic (HCC) ERCP Routine 05/08/2023 8:45 AM REINSURANCE CLAIM ANALYST Pancreatitis Chronic (HCC) GASTROENTEROLOGY IMAGE EXAM Routine 05/08/2023 8:45 AM REINSURANCE CLAIM ANALYST GLUCOSE POCT, B Routine 05/02/2023 8:57 AM REINSURANCE CLAIM ANALYST LDA ANE ENDOTRACHEAL AIRWAY Routine 05/02/2023 8:16 AM REINSURANCE CLAIM ANALYST LITHOTRIPSY EXTRACORPOREAL SHOCK WAVE UNILATERAL 05/02/2023 7:45 AM REINSURANCE CLAIM ANALYST Stone Pancreatic Duct GLUCOSE POCT, B Routine 05/02/2023 6:27 AM REINSURANCE CLAIM ANALYST CT ABDOMEN PELVIS WITH IV CONTRAST RAD - Semiurgent (Fast; most ED patients; some inpatients) 04/03/2023 2:34 AM REINSURANCE CLAIM ANALYST CT HEAD WITHOUT IV CONTRAST RAD - Semiurgent (Fast; most ED patients; some inpatients) 04/03/2023 2:30 AM REINSURANCE CLAIM ANALYST LIPASE, S/P STAT 04/03/2023 1:41 AM REINSURANCE CLAIM ANALYST LACTATE, B/P STAT 04/03/2023 1:41 AM REINSURANCE CLAIM ANALYST C-REACTIVE PROTEIN (CRP), S/P STAT 04/03/2023 1:41 AM REINSURANCE CLAIM ANALYST COMPREHENSIVE METABOLIC PANEL, S/P STAT 04/03/2023 1:41 AM REINSURANCE CLAIM ANALYST CBC WITH DIFFERENTIAL, B STAT 04/03/2023 1:41 AM REINSURANCE CLAIM ANALYST GLUCOSE POCT, B Routine 02/19/2023 6:17 AM REINSURANCE CLAIM ANALYST HEMOGLOBIN A1C, B Routine 02/19/2023 6:1 7 AM REINSURANCE CLAIM ANALYST from Last 3 Months Results * FL Fluoro Less Than 1 Hour (05/08/2023 11:55 AM REINSURANCE CLAIM ANALYST) Narrative ERCP LOS RST - 05/08/2023 11:56 AM REINSURANCE CLAIM ANALYST This exam does not require a radiologist review or interpretation. Please refer to the patient's medical record on this date for clinical details. Jose Roberto Patterson M.D. IMAscencion FLUOROSCOP Y PROCEDURES ERCP LOS RST * LDA ANE ENDOTRACHEAL AIRWAY (05/08/2023 9:15 AM REINSURANCE CLAIM ANALYST) Narrative Tami Sheets APRN, CRNA - 05/08/2023 9:15 AM REINSURANCE CLAIM ANALYST Tami Sheets APRN, CRNA ? 05/08/2023 ??9:39 [...] ETT location: oral VL device: glide scope [place] scope blade size: 3 Tube size: 7 [...] no complications Tami Sheets APRN, CRNA ANESTHESIA ORDE MARCUS * ERCP (05/08/2023 8:45 AM REINSURANCE CLAIM ANALYST) 05/08/2023 8:45 AM REINSURANCE CLAIM ANALYST Impressions [facility] - 05/08/2023 3:41 PM REINSURANCE CLAIM ANALYST Post-op Diagnoses: ? - The major papilla [...] placed into the mid pancreatic body. Narrative [facility] - 05/08/2023 3:41 PM REINSURANCE CLAIM ANALYST Gonda 2 GI Patient Name: Yary Prince [...] ? clearance and drainage. Findings: ? A chip mucker film of the abdomen was obtained. Desne [...] duct was explored endoscopically ? using the SpyGlass direct visualization system. The SpyScope was ? [...] GI PROCEDURE O RDERABLES Performing Organization Address [facility] de Phone Number [facility] NA * ERCP-Gastroenterology Image Exam (05/08/2023 8:45 AM REINSURANCE CLAIM ANALYST) Narrative [facility] - 05/08/2023 3:49 PM REINSURANCE CLAIM ANALYST This order has been created and auto-finalized to support the import of images acquired without order. The clinical documentation to support these images can be found on the encounter that produced images. Provider Not In System IMG NON RAD IMAGI NG PROCEDURES Performing Organization Address [facility] de Phone Number [facility] NA * Glucose, POCT (05/02/2023 8:57 AM REINSURANCE CLAIM ANALYST) Only the most recent of3 resultswithin the time period is included. Glucose, POCT, B 140 70 - 140 mg/dL 05/02/2023 9:00 AM REINSURANCE CLAIM ANALYST PCDE Site Capillary 05/02/2023 9:00 AM REINSURANCE CLAIM ANALYST PCDE Blood 05/02/2023 8:57 AM REINSURANCE CLAIM ANALYST 05/02/2023 9:00 AM REINSURANCE CLAIM ANALYST Unknown Provider LAB POCT ORDERABLES- MANUAL Performing Organization Address [facility] de Phone Number [facility] [address] [place] [address], [facility] PCDE [facility] POC [address] [place] [address] * LDA ANE ENDOTRACHEAL AIRWAY (05/02/2023 8:16 AM REINSURANCE CLAIM ANALYST) Narrative Cassie Acuña APRN ORTHOTICS PROSTHETICS TECHNICIAN - 05/02/2023 8:16 AM REINSURANCE CLAIM ANALYST Cassie Acuña APRN ORTHOTICS PROSTHETICS TECHNICIAN ? 05/02/2023 ??8:30 AM Airway Date/Time: 05/02/2023 8:16 AM Performed by: Cassie Acuña APRN, ORTHOTICS PROSTHETICS TECHNICIAN Authorized by: Shane Carlos M.D. ?? Patient location during procedure: OR / Procedure Area PROCEDURE DETAILS: Mask difficulty assessment: easy mask Final airway type: video laryngoscope Laryngeal Manipulation: no ?? Final best view of glottic structures - Cormack/Lehane Score: grade 1 ETT location: oral VL device: glide scope [place] scope blade size: 3 Tube size: 7 [...] Pelvis with IV Contrast (04/03/2023 2:34 AM REINSURANCE CLAIM ANALYST) Anatomical Region Laterality Modality Abdomen, Pelvis, Abdominal R ST LOS, Abdominal ARZ LOS, Abdominal FLA LOS N/A Computed Tomography 04/03/2023 2:24 AM REINSURANCE CLAIM ANALYST Impressions 04/03/2023 2:53 AM REINSURANCE CLAIM ANALYST 1. Sequela of chronic pancreatitis without imaging findings of acute pancreatitis. 2. Large colonic stool burden could indicate constipation. Narrative 04/03/2023 2:53 AM REINSURANCE CLAIM ANALYST EXAM: CT ABDOMEN PELVIS WITH IV CONTRAST [...] stool burden could indicate constipation. Madhav Basurto APRN C.N.P., D.N.P. [facility] CT PROCEDURES * CT Head without IV Contrast (04/03/2023 2:30 AM REINSURANCE CLAIM ANALYST) Anatomical Region Laterality Modality Head, Neuroradiology RST LOS , Neuroradiology ARZ LOS, Neuroradiology FLA LOS N/A Computed Tomography 04/03/2023 2:18 AM REINSURANCE CLAIM ANALYST Impressions 04/03/2023 2:37 AM REINSURANCE CLAIM ANALYST 1. ??Negative for acute intracranial abnormality. 2. ??Stable patchy white matter hypoattenuation compatible with known demyelinating disease. Narrative 04/03/2023 2:37 AM REINSURANCE CLAIM ANALYST EXAM: CT HEAD WITHOUT IV CONTRAST COMPARISON: [...] CBC with Differential, Blood (04/03/2023 1:41 AM REINSURANCE CLAIM ANALYST) [facility] Hemoglobin 12.0 11.6 - 15.0 g/dL 04/03/2023 2:28 AM REINSURANCE CLAIM ANALYST CNFL Hematocrit 35.4(L) 35.5 - 44.9 % 04/03/2023 2:28 AM REINSURANCE CLAIM ANALYST CNFL Erythrocytes 3.75(L) 3.92 - 5.13 x10(12)/L 04/03/2023 2:28 AM REINSURANCE CLAIM ANALYST CNFL MCV 94.4 78.2 - 97.9 fL 04/03/2023 2:28 AM REINSURANCE CLAIM ANALYST CNFL RBC Distrib Width 12.2 12.2 - 16.1 % 04/03/2023 2:28 AM REINSURANCE CLAIM ANALYST CNFL Platelet Count 212 157 - 371 x10(9)/L 04/03/2023 2:28 AM REINSURANCE CLAIM ANALYST CNFL Leukocytes 4.7 3.4 - 9.6 x10(9)/L 04/03/2023 2:28 AM REINSURANCE CLAIM ANALYST CNFL Neutrophils 1.91 1.56 - 6.45 x10(9)/L 04/03/2023 2:28 AM REINSURANCE CLAIM ANALYST CNFL Lymphocytes 1.81 0.95 - 3.07 x10(9)/L 04/03/2023 2:28 AM REINSURANCE CLAIM ANALYST CNFL Monocytes 0.85(H) 0.26 - 0.81 x10(9)/L 04/03/2023 2:28 AM REINSURANCE CLAIM ANALYST CNFL Eosinophils 0.15 0.03 - 0.48 x10(9)/L 04/03/2023 2:28 AM REINSURANCE CLAIM ANALYST CNFL Basophils <0.04 0.01 - 0.08 x10(9)/L 04/03/2023 2:28 AM REINSURANCE CLAIM ANALYST CNFL Blood (Blood, Venous) 04/03/2023 1:41 AM REINSURANCE CLAIM ANALYST 04/03/2023 2:03 AM REINSURANCE CLAIM ANALYST Madhav Basurto APRN, C.N.P., D.N.P. LAB BLOOD ADD-ON [facility] [address] [address], [address] [address] * CRP (C-Reactive Protein) (04/03/2023 1:41 AM REINSURANCE CLAIM ANALYST) C-Reactive Protein (CRP), P 3.5 <5.0 mg/L 04/03/2023 2:24 AM REINSURANCE CLAIM ANALYST [facility] Blood (Blood, Venous) 04/03/2023 1:41 AM REINSURANCE CLAIM ANALYST 04/03/2023 2:03 AM REINSURANCE CLAIM ANALYST Mona Tan APRN.N.P., D.N.P. LAB BLOOD ADD-ON [address] [address], [address] [address] * (ABNORMAL) Lipase (04/03/2023 1:41 AM REINSURANCE CLAIM ANALYST) Lipase, P 9(L) 13 - 60 U/L 04/03/2023 2: 24 AM REINSURANCE CLAIM ANALYST [facility] Blood (Blood, Venous) 04/03/2023 1:41 AM REINSURANCE CLAIM ANALYST 04/03/2023 2:03 AM REINSURANCE CLAIM ANALYST Mona Tan APRN.N.P., D.N.P. LAB BLOOD ADD-ON [address] [address], [address] [address] * Lactate (04/03/2023 1:41 AM REINSURANCE CLAIM ANALYST) Lactate, P 1.0 0.5 - 2.2 mmol/L 04/03/2023 2:22 AM REINSURANCE CLAIM ANALYST [facility] Blood (Blood, Venous) 04/03/2023 1:41 AM REINSURANCE CLAIM ANALYST 04/03/2023 2:03 AM REINSURANCE CLAIM ANALYST Madhav Basurto APRN, C.N.P., D.N.P. LAB BLOOD NON ADD-ON [facility] [address] [place] [address], [facility] CNFL [place] [address] * (ABNORMAL) Comprehensive Metabolic Panel (04/03/2023 1:41 AM REINSURANCE CLAIM ANALYST) Pathologist [facility] Potassium, P 3.9 3.6 - 5.2 mmol/L 04/03/2023 2:24 AM REINSURANCE CLAIM ANALYST CNFL Sodium, P 134(L) 135 - 145 mmol/L 04/03/2023 2:24 AM REINSURANCE CLAIM ANALYST CNFL Chloride, P 99 98 - 107 mmol/L 04/03/2023 2:24 AM REINSURANCE CLAIM ANALYST CNFL Bicarbonate, P 26 22 - 29 mmol/L 04/03/2023 2:24 AM REINSURANCE CLAIM ANALYST CNFL Anion Gap, P 9 7 - 15 04/03/2023 2:24 AM REINSURANCE CLAIM ANALYST CNFL BUN (Blood Urea Nitrogen), P 13 6 - 21 mg/dL 04/03/2023 2:24 AM REINSURANCE CLAIM ANALYST CNFL Creatinine 0.89 0.59 - 1.04 mg/dL 04/03/2023 2:24 AM REINSURANCE CLAIM ANALYST CNFL Estimated GFR (eGFR) 71 >=60 mL/min/BS A 04/03/2023 2:24 AM REINSURANCE CLAIM ANALYST CNFL Comment: Estimated GFR calculated using the 2020 CKD_EPI creatinine equation. Calcium, Total, P 9.0 8.8 - 10.2 mg/dL 04/03/2023 2:24 AM REINSURANCE CLAIM ANALYST CNFL Glucose, P 188(H) 70 - 140 mg/dL 04/03/2023 2:24 AM REINSURANCE CLAIM ANALYST CNFL Protein, Total, P 6.2(L) 6.3 - 7.9 g/dL 04/03/2023 2:24 AM REINSURANCE CLAIM ANALYST CNFL Albumin, P 3.8 3.5 - 5.0 g/dL 04/03/2023 2:24 AM REINSURANCE CLAIM ANALYST CNFL Aspartate Aminotransferase (AST), P 27 8 - 43 U/L 04/03/2023 2:24 AM REINSURANCE CLAIM ANALYST CNFL Alkaline Phosphatase, P 91 35 - 104 U/L 04/03/2023 2:24 AM REINSURANCE CLAIM ANALYST CNFL Alanine Aminotransferase (ALT), P 30 7 - 45 U/L 04/03/2023 2:24 AM REINSURANCE CLAIM ANALYST CNFL Bilirubin, Total, P <0.2 0.0 - 1.2 mg/dL 04/03/2023 2:24 AM REINSURANCE CLAIM ANALYST CNFL Blood (Blood, Venous) 04/03/2023 1:41 AM REINSURANCE CLAIM ANALYST 04/03/2023 2:03 AM REINSURANCE CLAIM ANALYST Mona Tan APRN.N.P., D.N.P. LAB BLOOD ADD-ON Performing Organization Address [facility] [place] [address], [facility] CNFL [place] [address] * (ABNORMAL) Hemoglobin A1c (02/19/2023 6:17 AM REINSURANCE CLAIM ANALYST) Hemoglobin A1c, B 7.8(H) 4.0 - 5.6 % 02/19/2023 7:11 AM REINSURANCE CLAIM ANALYST DTL Comment: Hemoglobin A1c values greater than or equal to 6.5 percent are diagnostic for diabetes mellitus. ??Diagnosis should be confirmed by repeat testing. ??In diabetic patients, HbA1c goals should be discussed with healthcare provider. Blood (Blood, Venous) 02/19/2023 6:17 AM REINSURANCE CLAIM ANALYST 02/19/2023 6:33 AM REINSURANCE CLAIM ANALYST Luis Andrew M.D., M.P.H. 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 See document viewer. Latest Code Status on File Code Status Date Activated Date Inactivated Comments Full Code 10/23/2022 2:51 PM 10/25/2022 1:26 AM Question Answer Comments Full Code: Discussed Care Teams Health Insurance Sales Agent Relationship Specialty Start Date End Date Elsewhere, Pcp PCP - General Internal Medicine 06/26/22
--- OUTSIDE RECORDS SUMMARY | 2023-05-17 08:53 | XMS_ITS | Encounter Summary ---
Author Name Unknown Organization [facility] Address [address] [place] [address] Care Team Providers Care Anesthesiology Medical Doctor Name Role Phone Elsewhere, Pcp Primary Care Provider Unavailabl e Reason for Referral * Outpatient (Routine) - Closed Specialty Diagnoses / Procedures Referred By Contac t Referred To Contact Diagnoses Pancreatitis Chronic (HCC) Procedures FL Fluoro Less Than 1 Hour Jose Roberto Patterson M.D. [address] [place] [address] [facility] Referral ID Status Reason Start Date Expiration Date Visits Re quested Visits Authorized [id number] Closed 05/08/2023 05/07/2024 1 1 BLOWER Reason for Visit * Outpatient (Routine) - Closed Specialty Diagnoses / Procedures Referred By Contac t Referred To Contact Diagnoses Pancreatitis Chronic (HCC) Procedures FL Fluoro Less Than 1 Hour Jose Roberto Patterson M.D. [address] [place] [address] [facility] Referral ID Status Reason Start Date Expiration Date Visits Re quested Visits Authorized [id number] Closed 05/08/2023 05/07/2024 1 1 Encounter Details Date Type Department Care Team (Latest Contact Info) Description 05/08/2023 8:03 AM WELL [facility]OWER - 05/08/2023 11:59 PM WELL [facility]OWER Hospital Encounter Department of Radiology, [facility], in [place], [place] [address] [place] [address] Jose Roberto Patterson M.D. [address] [place] [address] Pancreatitis Chronic (HCC) Discharge Disposition: Home or [...] living situation today? I have a [facility] place to live 01/01/2023 [...] 0 01/02/2023 documented as of this encounter Plan of Treatment Upcoming Encounters Date Type Department Care Team (Latest Contact Info) Description 05/28/2023 3:30 PM WE[facility] Clinical Communication Virtual Review in [place], [place] [address] [place] [address] 05/30/2023 2:30 PM WE[facility] Comprehensive Visit Division of Pain Medicine in [place], [place] [address] [place] [phone] Gricel Lynch, TOOL PROFILING MACHINE SET UP OPERATOR, C.N.P. [address] [place] [phone] 07/08/2023 12:15 PM CDT Appointment Division of Gastroenterology in [place], [place] [address] [place] [address] Jose Roberto Patterson M.D. [address] [place] [address] documented as of this encounter Procedures Procedure Name Priority Date/Time Associated Diagnosis Comments FL FLUORO LESS THAN 1 HOUR RAD - Routine (most inpatients and all outpatients) 05/08/2023 11:55 AM WELL [facility]OWER Pancreatitis Chronic (HCC) documented in this encounter Results * FL Fluoro Less Than 1 Hour (05/08/2023 11:55 AM WELL BLOWER) Narrative ERCP LOS RST - 05/08/2023 11:56 AM WELL BLOWER This exam does not require a radiologist review or interpretation. Please refer to the patient's medical record on this date for clinical details. Jose Roberto Patterson M.D. IMG FLUOROSCOP Y PROCEDURES ERCP LOS RST documented in this encounter Visit Diagnoses Diagnosis Pancreatitis Chronic (HCC) documented in this encounter Additional Health Concerns Assessment Noted Time PHQ-9 Depression Total Score: 21 012 10:33 AM WELL BLOWER documented as of this encounter Care Teams Anesthesiology Medical Doctor Relationship Specialty Start Date End Date Elsewhere, Pcp PCP - General Internal Medicine 06/26/22 documented as of this encounter
--- OUTSIDE RECORDS SUMMARY | 2023-05-17 08:53 | XMS_ITS | Encounter Summary ---
Author Name Unknown Organization [facility] Address [address] [place] [address] Care Team Providers Care Sales And Events Coordinator Name Role Phone Elsewhere, Pcp Primary Care Provider Unavailabl e Encounter Details Date Type Department Care Team (Late st Contact Info) Description 05/02/2023 7:45 AM MANAGER VIDEO GAMES - 05/02/2023 9:26 AM MANAGER VIDEO GAMES Surgery [facility] [address] [place] [address] Luis Andrew M.D., M.P.H. [address] [place] [phone] Pancreatic LITHOTRIPSY EXTRACORPOREAL SHOCK WAVE UNILATERAL, possible [...] your living situation today? I have a [facility] place to live 01/01/2023 Sex and Gender Information Value Date Recorded Sex Assigned at Female 01/01/2023 9:08 AM CDT Gender Identity Female 01/01/2023 9:08 AM CDT Sexual Orientation Straight 01/01/2023 9: 08 AM CDT documented as of this encounter Last Filed Vital Signs Vital Sign Reading Time Taken Comments Blood Pressure 143/66 05/02/2023 9:22 AM MANAGER VIDEO GAMES Pulse 75 05/02/2023 9:25 AM MANAGER VIDEO GAMES Temperature 36.7 ??C (98.1 ??F) 05/02/2023 9:22 AM CS T Respiratory Rate 16 05/02/2023 9:25 AM MANAGER VIDEO GAMES Oxygen Saturation 98% 05/02/2023 9:25 AM MANAGER VIDEO GAMES Inhaled Oxygen Concentration - - Weight 55.3 kg (121 lb 14.6 oz) 05/02/2023 6:25 AM MANAGER VIDEO GAMES Height 158.5 cm (5' 2.4) 05/02/2023 6:25 AM MANAGER VIDEO GAMES Body Mass Index 22.01 05/02/2023 6:25 AM MANAGER VIDEO GAMES documented in this encounter Discharge Instructions * Attachments The following attachments cannot be sent through Care Everywhere. * Your Scopolamine Patch (Latvian) documented in this encounter Medications at Time [...] as of this encounter Progress Notes * Aquilino Flores - 05/02/2023 6:45 AM CST [facility] Spiritual Care Progress Note Patient: Yary Prince Age:67 y.o. Location: [id number] Reason(s) for encounter: Spiritual support as part of the interdisciplinary care team. Spiritual Assessment Spiritual Needs and/or Concerns: None expressed at this time. Spiritual Care Plan / Recommendations: No further spiritual care requested or required at this time. Chaplains can be contacted by paging [phone] ([place]) or [phone] (Yazidism). GER VIDEO GAMES documented in this encounter OR Notes * Op Note - Luis Andrew M.D., M.P.H. - 05/02/2023 8:24 AM CST Pre-op Diagnosis Stone Pancreatic Duct Post-op Diagnosis Stone Pancreatic Duct Life Sciences Director A rn first assistant actively participated and was necessary for one or more of the following: opening, exposure and visualization during the case, maintaining hemostasis, wound closure resulting in itssafe and expeditious completion. Findings Multiple large pancreatic stones at pancreatic head and neck. Shockwave lithotripsy of primary pancreatic head stone. Complications None Operative Note Narrative The patient was identified in the pre-operative holding area. Consent was verified. The patient wastaken to the operating room and placed supine on the operating table. Anesthesia was induced. A timeout was performed involving all members of the OR team confirming the patient's identity and planned procedure. The pancreatic duct stones were visualized on field services director images. Two sites of large stones were noted atthe pancreatic head, and one additional stone was noted at the neck. The primary pancreatic head stone was then targeted using fluoroscopic guidance. A total of 3000 shocks were delivered at a rate of 90 Hz to the stone using a voltage ramping protocol starting at a power level of 1 and increased in interval fashion to a power level of 4. Total fluoroscopy time was 4:05. At the conclusion of the procedure there appeared to be fair fragmentation of the stone. The patient tolerated the procedure well and was awakened from anesthesia with no adverse events. The patient was taken to the recovery area in stable condition. I was the attending surgeon and was present for the entire procedure. Plan: ERCP as scheduled. Luis Andrew M.D., M.P.H. GER VIDEO GAMES documented in this encounter Plan of Treatment Upcoming Encounters Date Type Department Care Team (Latest Contact Info) Description 05/28/2023 3:30 PM MANAGER VIDEO GAMES Clinical Communication Virtual Review in [place], [place] [address] [place] [address] 05/30/2023 2:30 PM MANAGER VIDEO GAMES Comprehensive Visit Division of Pain Medicine in [address] [phone] Gricel Lynch APRN, C.N.P. [address] [place] [address] 07/08/2023 12:15 PM CDT Appointment Division of Gastroenterology in [place], [place] [address] [place] [phone] Jose Roberto Patterson M.D. [address] [place] [phone] documented as of this encounter Procedures Procedure Name Priority Date/Time Associated Diagnosis Comments GLUCOSE POCT, B Routine 05/02/2023 8:57 AM MANAGER VIDEO GAMES LITHOTRIPSY EXTRACORPOREAL SHOCK WAVE UNILATERAL 05/02/2023 7:45 AM MANAGER VIDEO GAMES Stone Pancreatic Duct GLUCOSE POCT, B Routine 05/02/2023 6:27 AM MANAGER VIDEO GAMES documented in this encounter Results * Glucose, POCT (05/02/2023 8:57 AM MANAGER VIDEO GAMES) Glucose, POCT, B 140 70 - 140 mg/dL 05/02/2023 9:00 AM MANAGER VIDEO GAMES PCDE Site Capillary 05/02/2023 9:00 AM MANAGER VIDEO GAMES PCDE Blood 05/02/2023 8:57 AM MANAGER VIDEO GAMES 05/02/2023 9:00 AM MANAGER VIDEO GAMES Unknown Provider LAB POCT ORDERABLES- MANUAL POC [facility] [address] [place] [address], [facility] PCDE [facility] POC [address] [place] [address] * (ABNORMAL) Glucose, POCT (05/02/2023 6:27 AM MANAGER VIDEO GAMES) Glucose, POCT, B 177(H) 70 - 140 mg/dL 05/02/2023 6:35 AM MANAGER VIDEO GAMES PCDE Last Intake 1-2 hours 05/02/2023 6:35 AM MANAGER VIDEO GAMES PCDE Blood 05/02/2023 6:27 AM MANAGER VIDEO GAMES 05/02/2023 6:35 AM MANAGER VIDEO GAMES Unknown Provider LAB POCT ORDERABLES- MANUAL POC [facility] [address] [place] [address], [place] PCDE [facility] [place] POC [address] [place] [address] documented in this encounter Visit Diagnoses Diagnosis Stone Pancreatic Duct- Primary Stone Pancreatic Duct documented in this encounter Admitting Diagnoses Diagnosis Stone Pancreatic Duct documented in this encounter Administered Medications Inactive Administered Medications - up to 3 most recent administrations Medication Order MAR Action Action Date Dose Rate Site acetaminophen tablet 1,000 mg (TYLENOL) 1,000 mg, oral, Once, On Duyen 05/02/23 at 0800, For 1 dose, Pre-Op, PreOp give in preprocedural area. Given 05/02/2023 7:47 AM MANAGER VIDEO GAMES 1,000 mg fentaNYL injection 25 mcg (SUBLIMAZE) 25 mcg, intravenous, Every 2 min PRN, For pain 4 or greater (maximum 100 mcg). If max dose of Fentanyl is reached and if pain is greater than 4, discontinue Fentanyl: give Hydromorphone, Starting on Duyen 05/02/23 at 0930, PACU (only) Given 05/02/2023 10:13 AM MANAGER VIDEO GAMES 25 mcg Given 05/02/2023 9:36 AM MANAGER VIDEO GAMES 25 mcg granisetron (PF) injection 1 mg (KYTRIL) 1 mg, intravenous, Once as needed, nausea, vomiting, Starting on Duyen 05/02/23 at 0930, For 1 dose, PACU (only), If patient does not respond to ondansetron or haloperidol. (order of antiemetic administration - ondansetron then haloperidol then granisetron) Given 05/02/2023 10:08 AM MANAGER VIDEO GAMES 1 mg Lactated Ringer's 20 mL/hr, intravenous, Continuous, Starting on Duyen 05/02/23 at 0900, PACU & Post-Op Continued from OR 05/02/2023 9:31 AM MANAGER VIDEO GAMES 20 mL/hr 20 mL/hr oxyCODONE IR tablet 10 mg (ROXICODONE) 10 mg, oral, Once, On Duyen 05/02/23 at 1130, For 1 dose Given 05/02/2023 11:12 AM MANAGER VIDEO GAMES 10 mg scopolamine base 1 mg over 3 days 1 patch (TRANSDERM SCOP) 1 patch, transdermal, Administer over 24 Hours, Every 72 hours, First dose on Duyen 05/02/23 at 0800, For 1 dose, Pre-Op, Contains 1.5 mg to deliver 1 mg/72 hours. Medication Applied 05/02/2023 7:43 AM MANAGER VIDEO GAMES 1 patch Behind Right Ear documented in this encounter Active and Recently Administered Medications Times are shown in MANAGER VIDEO GAMES. Scheduled Medication Order 04/30/2023 05/01/2023 05/02/2023 acetaminophen tablet 1,000 mg (TYLENOL) (COMPLETED) 1,000 mg, oral, Once, On Duyen 05/02/23 at 0800, For 1 dose, Pre-Op, PreOp give in preprocedural area. 0747 (Given - Provid er: Stacie Day R.N.) oxyCODONE IR tablet 10 mg (ROXICODONE) (COMPLETED) 10 mg, oral, Once, On Duyen 05/02/23 at 1130, For 1 dose 1112 (Given - Provid er: Aletha Pelayo R.N., C.M.S.R.N.) scopolamine base 1 mg over 3 days 1 patch (TRANSDERM SCOP) (CANCELED) 1 patch, transdermal, Administer over 24 Hours, Every 72 hours, First dose on Duyen 05/02/23 at 0800, For 1 dose, Pre-Op, Contains 1.5 mg to deliver 1 mg/72 hours. 0743 (Medication Jackie lied - Provider: Stacie Day R.N.)1204 (Due: Medication Removed - Provider: Discharge Provider, Automatic - Comment: Time automatically adjusted from order being discontinued) Continuous Medication Order 04/30/2023 05/01/2023 05/02/2023 Lactated Ringer's 20 mL/hr, intravenous, Continuous, Starting on Duyen 05/02/23 at 0900, PACU & Post-Op 0931 (Continued from OR - Provider: Allen Mtz R.N.) PRN Medication Order 04/30/2023 05/01/2023 05/02/2023 fentaNYL injection 25 mcg (SUBLIMAZE) (CANCELED) 25 mcg, intravenous, Every 2 min PRN, For pain 4 or greater (maximum 100 mcg). If max dose of Fentanyl is reached and if pain is greater than 4, discontinue Fentanyl: give Hydromorphone, Starting on Duyen 05/02/23 at 0930, PACU (only) 0936 (Given - Provid er: Allen Mtz R.N.)1013 (Given - Provider: Lola Dye R.N.) granisetron (PF) injection 1 mg (KYTRIL) (COMPLETED) 1 mg, intravenous, Once as needed, nausea, vomiting, Starting on Duyen 05/02/23 at 0930, For 1 dose, PACU (only), If patient does not respond to ondansetron or haloperidol. (order of antiemetic administration - ondansetron then haloperidol then granisetron) 1008 (Given - Provid er: Lola Dye R.N.) naloxone injection 0.2 mg (NARCAN) 0.2 mg, intravenous, As needed, respiratory depression, Starting on Duyen 05/02/23 at 1023, For RASS Score -4 or less, respiratory rate of less than 8 breaths/min. Notify provider/service and rapid response team (if available at institution). ondansetron (PF) injection 4 mg (ZOFRAN) 4 mg, intravenous, Every 6 hours PRN, nausea, vomiting, Starting on Duyen 05/02/23 at 1023, For 48 hours, Reassess for nausea or vomiting after at least 10 minutes. If nausea or vomiting persists administer next ordered antiemetic medications (order for antiemetic medication administration ondansetron then haloperidol then prochlorperazine). prochlorperazine injection 5 mg (COMPAZINE) 5 mg, intravenous, Every 6 hours PRN, nausea, vomiting, Starting on Duyen 05/02/23 at 1023, For 48 hours, RASS must be -2 or higher to administer. Reassess for nausea/vomiting after at least 10 minutes. If nausea or vomiting persists administer next ordered antiemetic medications (order for antiemetic medication administration ondansetron then haloperidol then prochlorperazine) documented in this encounter Additional Health Concerns Assessment Noted Time PHQ-9 Depression Total Score: 21 05/31/ 012 10:33 AM MANAGER VIDEO GAMES documented as of this encounter Care Teams Sales And Events Coordinator Relationship Specialty Start Date End Date Elsewhere, Pcp PCP - General Internal Medicine 06/26/22 documented as of this encounter
--- OUTSIDE RECORDS SUMMARY | 2023-05-17 08:54 | XMS_ITS | Encounter Summary ---
Author Name Unknown Organization [facility] Address [address] [place] [address] Care Team Providers Care Audio Visual Collections Coordinator Name Role Phone Elsewhere, Pcp Primary Care Provider Unavailabl e Reason for Visit * Reason Comments Abdominal Pain Encounter Details Date Type Department Care Team (Late st Contact Info) Description 04/03/2023 1:08 AM HOP SORTER - 04/03/2023 3:18 AM HOP SORTER Emergency [facility] [address] [place] [phone] Madhav Basurto APRN, C.N.P., D.N.P. [address] [place] [address] Pancreatitis Chronic Recurrent (HCC) (Primary [...] your living situation today? I have a [facility] place to live 01/01/2023 Sex and Gender Information Value Date Recorded Sex Assigned at Female 01/01/2023 9:08 AM CDT Gender Identity Female 01/01/2023 9:08 AM CDT Sexual Orientation Straight 01/01/2023 9: 08 AM CDT documented as of this encounter Last Filed Vital Signs Vital Sign Reading Time Taken Comments Blood Pressure 123/75 04/03/2023 3:00 AM HOP SORTER Pulse 80 04/03/2023 3:00 AM HOP SORTER Temperature 37.8 ??C (100 ??F) 04/03/2023 1:55 AM HOP SORTER Respiratory Rate 18 04/03/2023 3:00 AM HOP SORTER Oxygen Saturation 93% 04/03/2023 3:00 AM HOP SORTER Inhaled Oxygen Concentration - - Weight 57.7 kg (127 lb 3.3 oz) 04/03/2023 1:15 A M HOP SORTER Height - - Body Mass Index 22.97 02/19/2023 6:31 AM HOP SORTER documented in this encounter Discharge Instructions * Discharge Instructions* Madhav Basurto APRN, C.N.Santi., D.N.P. - 04/03/2023 3:02 AM HOP SORTER Follow-up with GI as scheduled at the end of the month, sooner if you have continued pain/problems.Pain medication as per your home routine. Return to the emergency department if symptoms get worse. Thank you for utilizing [facility] for your care! SORTER * Attachments The following attachments cannot be sent through Care Everywhere. * Chronic Pancreatitis (Maltese) * Abdominal Pain Adult Klem-yj-Ibzj (Maltese) * Constipation Adult (Maltese) documented in this encounter Medications at Time [...] patch States it fell off 0 01/31/2023 insulin glargine (LANTUS) 100 unit/mL injection Inject 30 Units under the skin 2 (two) times a day. Full dose last night. None today 0 losartan (COZAAR) 100 mg tablet Take [...] after 1 week. 53 tablet 0 01/02/2023 atorvastatin (LIPITOR) 10 mg tablet Take 10 mg by mouth. 0 05/02/2023 documented as of this encounter ED Notes * Brittany Yusuf, R.N. - 04/03/2023 1:27 AM CST Pt presents [...] or lacerations Brittany Yusuf R.N. 04/03/23 0130 SORTER * Madhav Basurto, ATUL, C.N.P., D.N.P. - 04/03/2023 1:19 AM CST [...] yesterday. She describes it as a vicelike revenue manager around her abdomen mostly in the left upper quadrant with radiation of pain into her left chest as well as into her back. Patient had nausea vomiting yesterday. None today. Patient states she took 2 oxycodone at 10:00 p.m. with norelief of her symptoms. Patient is scheduled for a ERCP on 04/29/2023 with GI in [place]. Patient denies any fever, chills, sweats. Endorses nausea vomiting. Endorses abdominal pain. Denies any other constitutional symptoms. Patient also states she fell yesterday, did hit her left face. There has no bruising appreciated. Patient is anticoagulated. She denies LOC. History provided by: Patient die cutter needed/used: no REVIEW OF SYSTEMS Constitutional: Negative [...] remove somepancreatic ductal stones. She follows in [place]. Patient denies any fever, chills, sweats. Does [...] additional history from the medical record and training engineer. Evaluation and management will include: CBC with [...] for Follow-ups Elsewhere, Pcp Specialty: Internal Medicine, Jewelry Salesperson, Pediatrics, Women's Health, Family Medicine Relationship: PCP - General Next Steps: Follow up in 1 week(s) Madhav Basurto, ARIANE, DEADENER, SHELL SORTER-C, AGACNP-BC, ENP-C Emergency Medicine Madhav Basurto APRN, C.N.P., D.N.P. 04/03/23 0308 Madhav Basurto APRN, C.N.P., D.N.P. 04/03/23311 SORTER documented in this encounter Plan of Treatment Upcoming Encounters Date Type Department Care Team (Latest Contact Info) Description 05/28/2023 3:30 PM HOP SORTER Clinical Communication Virtual Review in [address] [phone] 05/30/2023 2:30 PM HOP SORTER Comprehensive Visit Division of Pain Medicine in [address] [phone] Gricel Lynch APRN, C.N.P. [address] [place] [phone] 07/08/2023 12:15 PM CDT Appointment Division of Gastroenterology in [address] [phone] Jose Roberto Patterson M.D. [address] [place] [phone] documented as of this encounter Procedures Procedure Name Priority Date/Time Associated Diagnosis Comments CT ABDOMEN PELVIS WITH IV CONTRAST RAD - Semiurgent (Fast; most ED patients; some inpatients) 04/03/2023 2:[address] HEAD WITHOUT IV CONTRAST RAD - Semiurgent (Fast; most ED patients; some inpatients) 04/03/2023 2:30 AM HOP SORTER CBC WITH DIFFERENTIAL, B STAT 04/03/2023 1:41 AM HOP SORTER C-REACTIVE PROTEIN (CRP), S/P STAT 04/03/2023 1:41 AM HOP SORTER LIPASE, S/P STAT 04/03/2023 1:41 AM HOP SORTER LACTATE, B/P STAT 04/03/2023 1:41 AM HOP SORTER COMPREHENSIVE METABOLIC PANEL, S/P STAT 04/03/2023 1:41 AM HOP SORTER documented in this encounter Results * CT Abdomen Pelvis with IV Contrast (04/03/2023 2:34 AM HOP SORTER) Anatomical Region Laterality Modality Abdomen, Pelvis, Abdominal R ST LOS, Abdominal ARZ LOS, Abdominal FLA LOS N/A Computed Tomography 04/03/2023 2:24 AM HOP SORTER Impressions 04/03/2023 2:53 AM HOP SORTER 1. Sequela of chronic pancreatitis without imaging findings of acute pancreatitis. 2. Large colonic stool burden could indicate constipation. Narrative 04/03/2023 2:53 AM HOP SORTER EXAM: CT ABDOMEN PELVIS WITH IV CONTRAST [...] Head without IV Contrast (04/03/2023 2:30 AM HOP SORTER) Anatomical Region Laterality Modality Head, Neuroradiology RST LOS , Neuroradiology ARZ LOS, Neuroradiology FLA LOS N/A Computed Tomography 04/03/2023 2:18 AM HOP SORTER Impressions 04/03/2023 2:37 AM HOP SORTER 1. ??Negative for acute intracranial abnormality. 2. ??Stable patchy white matter hypoattenuation compatible with known demyelinating disease. Narrative 04/03/2023 2:37 AM HOP SORTER EXAM: CT HEAD WITHOUT IV CONTRAST COMPARISON: [...] PROCEDURES * (ABNORMAL) Lipase (04/03/2023 1:41 AM HOP SORTER) Lipase, P 9(L) 13 - 60 U/L 04/03/2023 2: 24 AM HOP SORTER CNFL Blood (Blood, Venous) 04/03/2023 1:41 AM HOP SORTER 04/03/2023 2:03 AM HOP SORTER Mona Tan APRN.N.P., D.N.P. LAB BLOOD ADD-ON Performing Organization Address City/[facility] [place] [address], [place] [address] * Lactate (04/03/2023 1:41 AM HOP SORTER) Lactate, P 1.0 0.5 - 2.2 mmol/L 04/03/2023 2:22 AM HOP SORTER CNFL Blood (Blood, Venous) 04/03/2023 1:41 AM HOP SORTER 04/03/2023 2:03 AM HOP SORTER Mona Tan APRN.N.P., D.N.P. LAB BLOOD NON ADD-ON Performing Organization Address [facility] [place] [address], [place] [address] * CRP (C-Reactive Protein) (04/03/2023 1:41 AM HOP SORTER) C-Reactive Protein (CRP), P 3.5 <5.0 mg/L 04/03/2023 2:24 AM HOP SORTER CNFL Blood (Blood, Venous) 04/03/2023 1:41 AM HOP SORTER 04/03/2023 2:03 AM HOP SORTER Mona Tan APRN.N.P., D.N.P. LAB BLOOD ADD-ON [facility] [address] [place] [phone], [facility] CNFL [facility] in [address] [address] * (ABNORMAL) Comprehensive Metabolic Panel (04/03/2023 1:41 AM HOP SORTER) Potassium, P 3.9 3.6 - 5.2 mmol/L 04/03/2023 2:24 AM HOP SORTER CNFL Sodium, P 134(L) 135 - 145 mmol/L 04/03/2023 2:24 AM HOP SORTER CNFL Chloride, P 99 98 - 107 mmol/L 04/03/2023 2:24 AM HOP SORTER CNFL Bicarbonate, P 26 22 - 29 mmol/L 04/03/2023 2:24 AM HOP SORTER CNFL Anion Gap, P 9 7 - 15 04/03/2023 2:24 AM HOP SORTER CNFL BUN (Blood Urea Nitrogen), P 13 6 - 21 mg/dL 04/03/2023 2:24 AM HOP SORTER CNFL Creatinine 0.89 0.59 - 1.04 mg/dL 04/03/2023 2:24 AM HOP SORTER CNFL Estimated GFR (eGFR) 71 >=60 mL/min/BS A 04/03/2023 2:24 AM HOP SORTER CNFL Comment: Estimated GFR calculated using the 2020 CKD_EPI creatinine equation. Calcium, Total, P 9.0 8.8 - 10.2 mg/dL 04/03/2023 2:24 AM HOP SORTER CNFL Glucose, P 188(H) 70 - 140 mg/dL 04/03/2023 2:24 AM HOP SORTER CNFL Protein, Total, P 6.2(L) 6.3 - 7.9 g/dL 04/03/2023 2:24 AM HOP SORTER CNFL Albumin, P 3.8 3.5 - 5.0 g/dL 04/03/2023 2:24 AM HOP SORTER CNFL Aspartate Aminotransferase (AST), P 27 8 - 43 U/L 04/03/2023 2:24 AM HOP SORTER CNFL Alkaline Phosphatase, P 91 35 - 104 U/L 04/03/2023 2:24 AM HOP SORTER CNFL Alanine Aminotransferase (ALT), P 30 7 - 45 U/L 04/03/2023 2:24 AM HOP SORTER CNFL Bilirubin, Total, P <0.2 0.0 - 1.2 mg/dL 04/03/2023 2:24 AM HOP SORTER CNFL Blood (Blood, Venous) 04/03/2023 1:41 AM HOP SORTER 04/03/2023 2:03 AM HOP SORTER Madhav Basurto APRN, C.N.P., D.N.P. LAB BLOOD ADD-ON [facility] [address] [place] [phone], [facility] CNFL [facility] [place] [address] * (ABNORMAL) CBC with Differential, Blood (04/03/2023 1:41 AM HOP SORTER) Hemoglobin 12.0 11.6 - 15.0 g/dL 04/03/2023 2:28 AM HOP SORTER CNFL Hematocrit 35.4(L) 35.5 - 44.9 % 04/03/2023 2:28 AM HOP SORTER CNFL Erythrocytes 3.75(L) 3.92 - 5.13 x10(12)/L 04/03/2023 2:28 AM HOP SORTER CNFL MCV 94.4 78.2 - 97.9 fL 04/03/2023 2:28 AM HOP SORTER CNFL RBC Distrib Width 12.2 12.2 - 16.1 % 04/03/2023 2:28 AM HOP SORTER CNFL Platelet Count 212 157 - 371 x10(9)/L 04/03/2023 2:28 AM HOP SORTER CNFL Leukocytes 4.7 3.4 - 9.6 x10(9)/L 04/03/2023 2:28 AM HOP SORTER CNFL Neutrophils 1.91 1.56 - 6.45 x10(9)/L 04/03/2023 2:28 AM HOP SORTER CNFL Lymphocytes 1.81 0.95 - 3.07 x10(9)/L 04/03/2023 2:28 AM HOP SORTER CNFL Monocytes 0.85(H) 0.26 - 0.81 x10(9)/L 04/03/2023 2:28 AM HOP SORTER CNFL Eosinophils 0.15 0.03 - 0.48 x10(9)/L 04/03/2023 2:28 AM HOP SORTER CNFL Basophils <0.04 0.01 - 0.08 x10(9)/L 04/03/2023 2:28 AM HOP SORTER CNFL Blood (Blood, Venous) 04/03/2023 1:41 AM HOP SORTER 04/03/2023 2:03 AM HOP SORTER Madhav Basurto APRN, C.N.P., D.N.P. LAB BLOOD ADD-ON [facility] [address] [place] [address], [facility] CNFL [facility] in [address] [address] documented in this encounter Visit Diagnoses Diagnosis Pancreatitis Chronic Recurrent (HCC)- Primary Abdominal Pain Constipation Slow Transit documented in this encounter Administered Medications Inactive Administered Medications - up to 3 most recent administrations Medication Order MAR Action Action Date Dose Rate Site HYDROmorphone injection 0.5 mg (DILAUDID) 0.5 mg, intravenous, Once, On Sat04/03/23 at 0301, For 1 dose Given 04/03/2023 3:07 AM HOP SORTER 0.5 mg HYDROmorphone injection 1 mg (DILAUDID) 1 mg, intravenous, Once, On Sat04/03/23 at 0130, For 1 dose Given 04/03/2023 1:47 AM HOP SORTER 1 mg iohexoL 300 mg iodine/mL solution 87 mL (OMNIPAQUE) 87 mL, intravenous, Once in imaging, contrast, Starting on Sat04/03/23 at 0146, For 1 dose Given 04/03/2023 2:29 AM HOP SORTER 87 mL NaCl 0.9 % bolus 1,000 mL 1,000 mL, intravenous, at 1,000 mL/hr, Administer over 1 Hours, Once, On Sat04/03/23 at 0159, For 1 dose New Bag 04/03/2023 2:27 AM HOP SORTER 1,000 mL 1000 mL/hr ondansetron (PF) injection 4 mg (ZOFRAN) 4 mg, intravenous, Once, On Sat04/03/23 at 0130, For 1 dose Given 04/03/2023 1:48 AM HOP SORTER 4 mg sodium chloride 0.9 % flush 72 mL 72 mL, intravenous, Once, On Sat04/03/23 at 0151, For 1 dose Given 04/03/2023 2:30 AM HOP SORTER 72 mL sodium chloride 0.9 % injection 10 mL 10 mL, intravenous, Once, On Sat04/03/23 at 0151, For 1 dose Given 04/03/2023 2:30 AM HOP SORTER 10 mL documented in this encounter Active and Recently Administered Medications Times are shown in HOP SORTER. Scheduled Medication Order 04/01/2023 04/02/2023 04/03/2023 HYDROmorphone injection 0.5 mg (DILAUDID) (COMPLETED) 0.5 mg, intravenous, Once, On Sat04/03/23 at 0301, For 1 dose 0307 (Given - Provid er: Steve Yusuf R.N.) HYDROmorphone injection 1 mg (DILAUDID) (COMPLETED) 1 mg, intravenous, Once, On Sat04/03/23 at 0130, For 1 dose 0147 (Given - Provid er: Brittany Yusuf RPedrito) NaCl 0.9 % bolus 1,000 mL (COMPLETED) [...] 1 dose 0230 (Given - Provid er: Eladio MoraTCarlos(R)(CT), R.T.(R)) sodium chloride 0.9 % injection 10 mL (COMPLETED) 10 mL, intravenous, Once, On Sat04/03/23 at 0151, For 1 dose 0230 (Given - Provid er: Dany Mora(Shavon)(CT), R.T.(R)) PRN Medication Order 04/01/2023 04/02/2023 04/03/2023 iohexoL 300 mg iodine/mL solution 87 mL (OMNIPAQUE) (COMPLETED) 87 mL, intravenous, Once in imaging, contrast, Starting on Sat04/03/23 at 0146, For 1 dose 0229 (Given - Provid er: Dany Mora(Shavon)(CT), R.T.(R)) documented in this encounter Additional Health Concerns Assessment Noted Time PHQ-9 Depression Total Score: 21 012 10:33 AM HOP SORTER documented as of this encounter Care Teams Audio Visual Collections Coordinator Relationship Specialty Start Date End Date Elsewhere, Pcp PCP - General Internal Medicine 06/26/22 documented as of this encounter
--- OUTSIDE RECORDS SUMMARY | 2023-05-17 08:54 | XMS_ITS | Encounter Summary ---
Author Name Unknown Organization [facility] Address [address] [place] [address] Care Team Providers Care Kst Operator Name Role Phone Elsewhere, Pcp Primary Care Provider Unavailabl e Encounter Details Date Type Department Care Team (Late st Contact Info) Description 01/07/2023 Orders Only Division of Community Internal Medicine at [address] [phone] Giorgio Ward M.D. [address] [place] [phone] Social History Tobacco Use Types Packs/Day Years [...] your living situation today? I have a [facility] place to live 01/01/2023 Sex and Gender Information Value Date Recorded Sex Assigned at Female 01/01/2023 9:08 AM CDT Gender Identity Female 01/01/2023 9:08 AM CDT Sexual Orientation Straight 01/01/2023 9: 08 AM CDT documented as of this encounter Plan of Treatment Upcoming Encounters Date Type Department Care Team (Latest Contact Info) Description 05/28/2023 3:30 PM CLAIMS AUDITOR Clinical Communication Virtual Review in [place], [place] [address] [place] [address] 05/30/2023 2:30 PM CLAIMS AUDITOR Comprehensive Visit Division of Pain Medicine in [place], [place] [address] [place] [phone] Gricel Lynch, CONTACT CENTER AGENT, C.N.P. [address] [place] [phone] 07/08/2023 12:15 PM CDT Appointment Division of Gastroenterology in [place], [place] [address] [place] [phone] Jose Roberto Patterson M.D. [address] [place] [phone] documented as of this encounter Visit Diagnoses Not on filedocumented in this encounter Additional Health Concerns Assessment Noted Time PHQ-9 Depression Total Score: 21 05/31/ 012 10:33 AM CLAIMS AUDITOR documented as of this encounter Care Teams Kst Operator Relationship Specialty Start Date End Date Elsewhere, Pcp PCP - General Internal Medicine 06/26/22 documented as of this encounter
--- OUTSIDE RECORDS SUMMARY | 2023-05-17 08:54 | XMS_ITS | Encounter Summary ---
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 [address] [place] [address] Not Performed Pancreatic LITHOTRIPSY EXTRACORPOREAL SHOCK WAVE [...] your living situation today? I have a [facility] place to live 01/01/2023 Sex and Gender Information Value Date Recorded Sex Assigned at Female 01/01/2023 9:08 AM CDT Gender Identity Female 01/01/2023 9:08 AM CDT Sexual Orientation Straight 01/01/2023 9: 08 AM CDT documented as of this encounter Last Filed Vital Signs Vital Sign Reading Time Taken Comments Blood Pressure 126/75 02/19/2023 6:31 AM BRIAR SHOP SUPERVISOR Pulse 70 02/19/2023 6:31 AM BRIAR SHOP SUPERVISOR Temperature 37 ??C (98.6 ??F) 02/19/2023 6:31 AM BRIAR SHOP SUPERVISOR Respiratory Rate 14 02/19/2023 6:31 AM BRIAR SHOP SUPERVISOR Oxygen Saturation 95% 02/19/2023 6:31 AM BRIAR SHOP SUPERVISOR Inhaled Oxygen Concentration - - Weight 57 kg (125 lb 10.6 oz) 02/19/2023 6:31 AM BRIAR SHOP SUPERVISOR Height 158.5 cm (5' 2.4) 02/19/2023 6:31 AM BRIAR SHOP SUPERVISOR Body Mass Index 22.69 02/19/2023 6:31 AM BRIAR SHOP SUPERVISOR documented in this encounter Medications at Time [...] 0 05/02/2023 documented as of this encounter Progress Notes [...] to proceed with ERCP tomorrow to them. R SHOP SUPERVISOR * Aquilino Flores - 02/19/2023 6:45 AM CST [facility] Spiritual Care Progress Note Patient: Yary Prince Age:67 y.o. Location: [id number] Reason(s) for encounter: Spiritual support as part of the interdisciplinary care team. Spiritual Assessment Spiritual Needs and/or Concerns: None expressed at this time. Spiritual Care Plan / Recommendations: No further spiritual care requested or required at this time. Chaplains can be contacted by paging [phone] ([place]) or [phone] ([place]). R SHOP SUPERVISOR documented in this encounter Plan of Treatment Upcoming Encounters Date Type Department Care Team (Latest Contact Info) Description 05/28/2023 3:30 PM BRIAR SHOP SUPERVISOR Clinical Communication Virtual Review in [address] [address] 05/30/2023 2:30 PM BRIAR SHOP SUPERVISOR Comprehensive Visit Division of Pain Medicine in [address] [phone] Gricel Lynch, ATUL, C.N.P. [address] [place] [phone] 07/08/2023 12:15 PM CDT Appointment Division of Gastroenterology in [address] [phone] Jose Roberto Patterson M.D. [address] [place] [phone] documented as of this encounter Procedures Procedure Name Priority Date/Time Associated Diagnosis Comments GLUCOSE POCT, B Routine 02/19/2023 6:17 AM BRIAR SHOP SUPERVISOR HEMOGLOBIN A1C, B Routine 02/19/2023 6:1 7 AM BRIAR SHOP SUPERVISOR documented in this encounter Results * Glucose, POCT (02/19/2023 6:17 AM BRIAR SHOP SUPERVISOR) Glucose, POCT, B 82 70 - 140 mg/dL 02/19/2023 6:38 AM BRIAR SHOP SUPERVISOR PCDE Site Capillary 02/19/2023 6:38 AM BRIAR SHOP SUPERVISOR PCDE Blood 02/19/2023 6:17 AM BRIAR SHOP SUPERVISOR 02/19/2023 6:38 AM BRIAR SHOP SUPERVISOR Unknown Provider LAB POCT ORDERABLES- MANUAL Performing Organization Address [facility] Co de Phone Number POC [employer] [facility] 200 [place] [address], [facility] PCDE [facility] 200 [place] [address] * (ABNORMAL) Hemoglobin A1c (02/19/2023 6:17 AM BRIAR SHOP SUPERVISOR) Hemoglobin A1c, B 7.8(H) 4.0 - 5.6 % 02/19/2023 7:11 AM BRIAR SHOP SUPERVISOR DTL Comment: Hemoglobin A1c values greater than or equal to 6.5 percent are diagnostic for diabetes mellitus. ??Diagnosis should be confirmed by repeat testing. ??In diabetic patients, HbA1c goals should be discussed with healthcare provider. Blood (Blood, Venous) 02/19/2023 6:17 AM BRIAR SHOP SUPERVISOR 02/19/2023 6:33 AM BRIAR SHOP SUPERVISOR Luis Andrew M.D., M.P.H. LAB BLOOD ADD-ON Performing Organization Address City/[facility]/ZIP Co de Phone Number [facility] [address] [place] [address], [facility] DTL [facility] [address] [place] [address] documented in this encounter Visit Diagnoses Diagnosis [...] in preprocedural area. Given 02/19/2023 7:27 AM BRIAR SHOP SUPERVISOR 1,000 mg chlorhexidine 0.12 % mouthwash 15 [...] Recently Administered Medications Times are shown in BRIAR SHOP SUPERVISOR. Scheduled Medication Order 02/17/2023 02/18/2023 02/19/2023 acetaminophen [...] Depression Total Score: 21 012 10:33 AM BRIAR SHOP SUPERVISOR documented as of this encounter Care Teams Campaign Analyst Relationship Specialty Start Date End Date Elsewhere, Pcp PCP - General Internal Medicine 06/26/22 documented as of this encounter
--- OUTSIDE RECORDS SUMMARY | 2023-05-17 08:54 | XMS_ITS | Encounter Summary ---
Author Name Unknown Organization [facility] Address [address] [place] [address] Care Team Providers Care Monument Mason Name Role Phone Elsewhere, Pcp Primary Care Provider Unavailabl e Reason for Visit * Reason Onset Date Comments Nicotine Dependence 02/11/2023 Encounter Details Date Type Department Care Team (Latest Contact Info) Description 02/11/2023 Clinical Communication Department of Nicotine Dependence, [facility], in [place], [place] [address] [place] [phone] Froy Can M.A. Nicotine Dependence Social History [...] (Latest Contact Info) Description 05/28/2023 3:30 PM NEWSPAPER VENDOR Clinical Communication Virtual Review in [place], [place] [address] [place] [address] 05/30/2023 2:30 PM NEWSPAPER VENDOR Comprehensive Visit Division of Pain Medicine in [place], [place] [address] [place] [phone] Gricel Lynch, CELLULAR EQUIPMENT REPAIRER, C.N.P. [address] [place] [phone] 07/08/2023 12:15 PM CDT Appointment Division of Gastroenterology in [place], [place] [address] [place] [phone] Jose Roberto Patterson M.D. [address] [place] [phone] documented as of this encounter Visit Diagnoses Not on filedocumented in this encounter Additional Health Concerns Assessment Noted Time PHQ-9 Depression Total Score: 21 05/31/ 012 10:33 AM NEWSPAPER VENDOR documented as of this encounter Care Teams Monument Mason Relationship Specialty Start Date End Date Elsewhere, Pcp PCP - General Internal Medicine 06/26/22 documented as of this encounter
--- OUTSIDE RECORDS SUMMARY | 2023-05-17 08:54 | XMS_ITS | Encounter Summary ---
Author Name Unknown Organization [facility] Address [address] [place] [address] Care Team Providers Care It Support Specialist Name Role Phone Elsewhere, Pcp Primary Care Provider Unavailabl e Encounter Details Date Type Department Care Team (Late st Contact Info) Description 01/02/2023 Orders Only Division of Community Internal Medicine at [address] [phone] Giorgio Ward M.D. [address] [place] [phone] Social History Tobacco Use Types Packs/Day Years [...] (Latest Contact Info) Description 05/28/2023 3:30 PM FIELD ADMINISTRATOR Clinical Communication Virtual Review in [place], [place] [address] [place] [address] 05/30/2023 2:30 PM FIELD ADMINISTRATOR Comprehensive Visit Division of Pain Medicine in [place], [place] [address] [place] [phone] Gricel Lynch, TOP PRECIPITATOR OPERATOR HELPER, C.N.P. [address] [place] [phone] 07/08/2023 12:15 PM CDT Appointment Division of Gastroenterology in [place], [place] [address] [place] [phone] Jose Roberto Patterson M.D. [address] [place] [phone] documented as of this encounter Visit Diagnoses Not on filedocumented in this encounter Additional Health Concerns Assessment Noted Time PHQ-9 Depression Total Score: 21 05/31/ 012 10:33 AM FIELD ADMINISTRATOR documented as of this encounter Care Teams It Support Specialist Relationship Specialty Start Date End Date Elsewhere, Pcp PCP - General Internal Medicine 06/26/22 documented as of this encounter
--- OUTSIDE RECORDS SUMMARY | 2023-05-17 08:54 | XMS_ITS | Encounter Summary ---
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 [address] [place] [phone] Discharge Disposition: Home or Self Care Social [...] Comments Blood Pressure 126/75 02/19/2023 6:31 AM COMMISSARY REPRESENTATIVE Pulse 70 02/19/2023 6:31 AM COMMISSARY REPRESENTATIVE Temperature 37 ??C (98.6 ??F) 02/19/2023 6:31 AM COMMISSARY REPRESENTATIVE Respiratory Rate 14 02/19/2023 6:31 AM COMMISSARY REPRESENTATIVE Oxygen Saturation 95% 02/19/2023 6:31 AM COMMISSARY REPRESENTATIVE Inhaled Oxygen Concentration - - Weight 57 kg (125 lb 10.6 oz) 02/19/2023 6:31 AM COMMISSARY REPRESENTATIVE Height 158.5 cm (5' 2.4) 02/19/2023 6:31 AM COMMISSARY REPRESENTATIVE Body Mass Index 22.69 02/19/2023 6:31 AM COMMISSARY REPRESENTATIVE documented in this encounter Medications at Time [...] to proceed with ERCP tomorrow to them. ISSARY REPRESENTATIVE * Aquilino Flores W - 02/19/2023 6:45 AM CST [facility] Spiritual Care Progress Note Patient: Yary Prince Age:67 y.o. Location: [facility] Reason(s) for encounter: Spiritual support as part of the interdisciplinary care team. Spiritual Assessment Spiritual Needs and/or Concerns: None expressed at this time. Spiritual Care Plan / Recommendations: No further spiritual care requested or required at this time. Chaplains can be contacted by paging [phone] ([facility] [place]) or [phone] (Amish). ISSARY REPRESENTATIVE documented in this encounter Plan of Treatment Upcoming Encounters Date Type Department Care Team (Latest Contact Info) Description 05/28/2023 3:30 PM COMMISSARY REPRESENTATIVE Clinical Communication Virtual Review in [address] [address] 05/30/2023 2:30 PM COMMISSARY REPRESENTATIVE Comprehensive Visit Division of Pain Medicine in [address] [phone] Gricel Lynch, EXECUTIVE VICE PRESIDENT, C.N.P. [address] [place] [phone] 07/08/2023 12:15 PM CDT Appointment Division of Gastroenterology in [address] [phone] Jose Roberto Patterson M.D. [address] [place] [phone] documented as of this encounter Procedures Procedure Name Priority Date/Time Associated Diagnosis Comments GLUCOSE POCT, B Routine 02/19/2023 6:17 AM COMMISSARY REPRESENTATIVE HEMOGLOBIN A1C, B Routine 02/19/2023 6:1 7 AM COMMISSARY REPRESENTATIVE documented in this encounter Results * Glucose, POCT (02/19/2023 6:17 AM COMMISSARY REPRESENTATIVE) Glucose, POCT, B 82 70 - 140 mg/dL 02/19/2023 6:38 AM COMMISSARY REPRESENTATIVE PCDE Site Capillary 02/19/2023 6:38 AM COMMISSARY REPRESENTATIVE PCDE Blood 02/19/2023 6:17 AM COMMISSARY REPRESENTATIVE 02/19/2023 6:38 AM COMMISSARY REPRESENTATIVE Unknown Provider LAB POCT ORDERABLES- MANUAL Performing Organization Address City/[facility]/ZIP Co de Phone Number POC [facility] [address] [place] [address], [facility] PCDE [facility] POC 200 [place] [address] * (ABNORMAL) Hemoglobin A1c (02/19/2023 6:17 AM COMMISSARY REPRESENTATIVE) Hemoglobin A1c, B 7.8(H) 4.0 - 5.6 % 02/19/2023 7:11 AM COMMISSARY REPRESENTATIVE DTL Comment: Hemoglobin A1c values greater than or equal to 6.5 percent are diagnostic for diabetes mellitus. ??Diagnosis should be confirmed by repeat testing. ??In diabetic patients, HbA1c goals should be discussed with healthcare provider. Blood (Blood, Venous) 02/19/2023 6:17 AM COMMISSARY REPRESENTATIVE 02/19/2023 6:33 AM COMMISSARY REPRESENTATIVE Luis Andrew M.D., M.P.H. LAB BLOOD ADD-ON Performing Organization Address City/[facility]/ZIP Co de Phone Number [facility] 200 [place] [address], [facility] DTL [facility] 200 [place] [address] documented in this encounter Visit Diagnoses Diagnosis [...] in preprocedural area. Given 02/19/2023 7:27 AM COMMISSARY REPRESENTATIVE 1,000 mg chlorhexidine 0.12 % mouthwash 15 [...] Recently Administered Medications Times are shown in COMMISSARY REPRESENTATIVE. Scheduled Medication Order 02/17/2023 02/18/2023 02/19/2023 acetaminophen [...] Depression Total Score: 21 012 10:33 AM COMMISSARY REPRESENTATIVE documented as of this encounter Care Teams Vascular Sonographer Relationship Specialty Start Date End Date Elsewhere, Pcp PCP - General Internal Medicine 06/26/22 documented as of this encounter
--- OUTSIDE RECORDS SUMMARY | 2023-05-17 08:54 | XMS_ITS | Encounter Summary ---
Author Name Unknown Organization [facility] Address [address] [place] [address] Care Team Providers Care Android Platform Developer Name Role Phone Elsewhere, Pcp Primary Care Provider Unavailabl e Encounter Details Date Type Department Care Team (Latest Contact Info) Description 05/02/2023 5:56 AM BLUE PRINT CONTROL CLERK - 05/02/2023 12:04 PM BLUE PRINT CONTROL CLERK Hospital Encounter Outpatient Surgery Unit in [place], [place] [address] [place] [address] Luis Andrew M.D., M.P.H. [address] [place] [phone] Discharge Disposition: Home or Self Care Social [...] your living situation today? I have a [facility] place to live 01/01/2023 Sex and Gender Information Value Date Recorded Sex Assigned at Female 01/01/2023 9:08 AM CDT Gender Identity Female 01/01/2023 9:08 AM CDT Sexual Orientation Straight 01/01/2023 9: 08 AM CDT documented as of this encounter Last Filed Vital Signs Vital Sign Reading Time Taken Comments Blood Pressure 144/68 05/02/2023 11:44 AM BLUE PRINT CONTROL CLERK Pulse 66 05/02/2023 11:44 AM BLUE PRINT CONTROL CLERK Temperature 36.9 ??C (98.4 ??F) 05/02/2023 1 1:44 AM BLUE PRINT CONTROL CLERK Respiratory Rate 16 05/02/2023 11:4 4 AM BLUE PRINT CONTROL CLERK Oxygen Saturation 98% 05/02/2023 11: 44 AM BLUE PRINT CONTROL CLERK Inhaled Oxygen Concentration - - Weight 55.3 kg (121 lb 14.6 oz) 05/02/2023 6:25 AM BLUE PRINT CONTROL CLERK Height 158.5 cm (5' 2.4) 05/02/2023 6:25 AM BLUE PRINT CONTROL CLERK Body Mass Index 22.01 05/02/2023 6:25 AM BLUE PRINT CONTROL CLERK documented in this encounter Discharge Instructions * Attachments The following attachments cannot be sent through Care Everywhere. * Your Scopolamine Patch (Swedish) documented in this encounter Medications at Time [...] Aquilino Flores - 05/02/2023 6:45 AM CST [facility] Spiritual Care Progress Note Patient: Yary Prince Age:67 y.o. Location: [facility] Reason(s) for encounter: Spiritual support as part of the interdisciplinary care team. Spiritual Assessment Spiritual Needs and/or Concerns: None expressed at this time. Spiritual Care Plan / Recommendations: No further spiritual care requested or required at this time. Chaplains can be contacted by paging [phone] ([place]) or [phone] ([place]). PRINT CONTROL CLERK documented in this encounter OR Notes * Op Note - Luis Andrew M.D., M.P.H. - 05/02/2023 8:24 AM CST Pre-op Diagnosis Stone Pancreatic Duct Post-op Diagnosis Stone Pancreatic Duct Manager Qa A first aid director actively participated and was necessary for one [...] The pancreatic duct stones were visualized on material flow engineer images. Two sites of large stones were [...] ERCP as scheduled. Luis Andrew M.D., M.P.H. PRINT CONTROL CLERK documented in this encounter Plan of Treatment Upcoming Encounters Date Type Department Care Team (Latest Contact Info) Description 05/28/2023 3:30 PM BLUE PRINT CONTROL CLERK Clinical Communication Virtual Review in [place], [place] [address] [place] [address] 05/30/2023 2:30 PM BLUE PRINT CONTROL CLERK Comprehensive Visit Division of Pain Medicine in [address] [phone] Gricel Lynch, FLOAT TENDER, C.N.P. [address] [place] [phone] 07/08/2023 12:15 PM CDT Appointment Division of Gastroenterology in [place], [place] [address] [place] [phone] Jose Roberto Patterson M.D. [address] [place] [address] documented as of this encounter Procedures Procedure Name Priority Date/Time Associated Diagnosis Comments GLUCOSE POCT, B Routine 05/02/2023 8:57 AM BLUE PRINT CONTROL CLERK LITHOTRIPSY EXTRACORPOREAL SHOCK WAVE UNILATERAL 05/02/2023 7:45 AM BLUE PRINT CONTROL CLERK Stone Pancreatic Duct GLUCOSE POCT, B Routine 05/02/2023 6:27 AM BLUE PRINT CONTROL CLERK documented in this encounter Results * Glucose, POCT (05/02/2023 8:57 AM BLUE PRINT CONTROL CLERK) Glucose, POCT, B 140 70 - 140 mg/dL 05/02/2023 9:00 AM BLUE PRINT CONTROL CLERK PCDE Site Capillary 05/02/2023 9:00 AM BLUE PRINT CONTROL CLERK PCDE Blood 05/02/2023 8:57 AM BLUE PRINT CONTROL CLERK 05/02/2023 9:00 AM BLUE PRINT CONTROL CLERK Unknown Provider LAB POCT ORDERABLES- MANUAL POC [facility] 200 [place] [address], [facility] PCDE [facility] [place] P[facility] 200 [place] [address] * (ABNORMAL) Glucose, POCT (05/02/2023 6:27 AM BLUE PRINT CONTROL CLERK) Glucose, POCT, B 177(H) 70 - 140 mg/dL 05/02/2023 6:35 AM BLUE PRINT CONTROL CLERK PCDE Last Intake 1-2 hours 05/02/2023 6:35 AM BLUE PRINT CONTROL CLERK PCDE Blood 05/02/2023 6:27 AM BLUE PRINT CONTROL CLERK 05/02/2023 6:35 AM BLUE PRINT CONTROL CLERK Unknown Provider LAB POCT ORDERABLES- MANUAL POC [facility] [address] [place] [address], [facility] PCDE [facility] [place] POC [address] [place] [address] documented in this encounter Visit Diagnoses Diagnosis [...] in preprocedural area. Given 05/02/2023 7:47 AM BLUE PRINT CONTROL CLERK 1,000 mg fentaNYL injection 25 mcg (SUBLIMAZE) 25 mcg, intravenous, Every 2 min PRN, For pain 4 or greater (maximum 100 mcg). If max dose of Fentanyl is reached and if pain is greater than 4, discontinue Fentanyl: give Hydromorphone, Starting on Duyen 05/02/23 at 0930, PACU (only) Given 05/02/2023 10:13 AM BLUE PRINT CONTROL CLERK 25 mcg Given 05/02/2023 9:36 AM BLUE PRINT CONTROL CLERK 25 mcg granisetron (PF) injection 1 mg (KYTRIL) 1 mg, intravenous, Once as needed, nausea, vomiting, Starting on Duyen 05/02/23 at 0930, For 1 dose, PACU (only), If patient does not respond to ondansetron or haloperidol. (order of antiemetic administration - ondansetron then haloperidol then granisetron) Given 05/02/2023 10:08 AM BLUE PRINT CONTROL CLERK 1 mg Lactated Ringer's 20 mL/hr, intravenous, Continuous, Starting on Duyen 05/02/23 at 0900, PACU & Post-Op Continued from OR 05/02/2023 9:31 AM BLUE PRINT CONTROL CLERK 20 mL/hr 20 mL/hr oxyCODONE IR tablet 10 mg (ROXICODONE) 10 mg, oral, Once, On Duyen 05/02/23 at 1130, For 1 dose Given 05/02/2023 11:12 AM BLUE PRINT CONTROL CLERK 10 mg scopolamine base 1 mg over 3 days 1 patch (TRANSDERM SCOP) 1 patch, transdermal, Administer over 24 Hours, Every 72 hours, First dose on Duyen 05/02/23 at 0800, For 1 dose, Pre-Op, Contains 1.5 mg to deliver 1 mg/72 hours. Medication Applied 05/02/2023 7:43 AM BLUE PRINT CONTROL CLERK 1 patch Behind Right Ear documented in this encounter Active and Recently Administered Medications Times are shown in BLUE PRINT CONTROL CLERK. Scheduled Medication Order 04/30/2023 05/01/2023 05/02/2023 acetaminophen [...] 4, discontinue Fentanyl: give Hydromorphone, Starting on Udyen 05/02/23 at 0930, PACU (only) 0936 (Given [...] Depression Total Score: 21 012 10:33 AM BLUE PRINT CONTROL CLERK documented as of this encounter Care Teams Android Platform Developer Relationship Specialty Start Date End Date Elsewhere, Pcp PCP - General Internal Medicine 06/26/22 documented as of this encounter
--- OUTSIDE RECORDS SUMMARY | 2023-05-17 08:54 | XMS_ITS | Encounter Summary ---
Author Name Unknown Organization [facility] Address [address] [place] [address] Care Team Providers Care Objects Conservator Name Role Phone Elsewhere, Pcp Primary Care Provider Unavailabl e Encounter Details Date Type Department Care Team (Late st Contact Info) Description 04/18/2023 Clinical Communication Department of Urology in [place], [place] [address] [place] [phone] Luis Andrew M.D., M.P.H. [address] [place] [phone] Social History Tobacco Use Types Packs/Day Years [...] living situation today? I have a [facility] place to live 01/01/2023 Sex and Gender Information Value Date Recorded Sex Assigned at Female 01/01/2023 9:08 AM CDT Gender Identity Female 01/01/2023 9:08 AM CDT Sexual Orientation Straight 01/01/2023 9: 08 AM CDT documented as of this encounter Miscellaneous Notes * Telephone Encounter - Anamika Smith, R.N. - 04/19/2023 10:25 AM TEST AND BALANCE ENGINEER Per Dr. Andrew, no additional testing or imaging required before surgery. Portal message sent to patient advising of this, surgical checklist provided. AND BALANCE ENGINEER * Telephone Encounter - Anamika Smith R.N. - 04/19/2023 9:13 AM TEST AND BALANCE ENGINEER Called the patient's , José Luis (auth on file), and they were agreeable to proceed with a pancreatic ESWL with Dr. Thornton at [facility] on May 02, 2023. He reports that [...] anesthesia and she will require a designated experienced truck driver after the procedure has been [...] further questions or concerns at this time. AND BALANCE ENGINEER documented in this encounter Plan of Treatment Upcoming Encounters Date Type Department Care Team (Latest Contact Info) Description 05/28/2023 3:30 PM TEST AND BALANCE ENGINEER Clinical Communication Virtual Review in [address] [address] 05/30/2023 2:30 PM TEST AND BALANCE ENGINEER Comprehensive Visit Division of Pain Medicine in [address] [phone] Gricel Lynch, ATUL, C.N.P. [address] [place] [phone] 07/08/2023 12:15 PM CDT Appointment Division of Gastroenterology in [address] [phone] Jose Roberto Patterson M.D. [address] [place] [phone] documented as of this encounter Visit Diagnoses Not on filedocumented in this encounter Additional Health Concerns Assessment Noted Time PHQ-9 Depression Total Score: 21 05/31/ 012 10:33 AM TEST AND BALANCE ENGINEER documented as of this encounter Care Teams Objects Conservator Relationship Specialty Start Date End Date Elsewhere, Pcp PCP - General Internal Medicine 06/26/22 documented as of this encounter
--- OUTSIDE RECORDS SUMMARY | 2023-05-17 08:54 | XMS_ITS | Encounter Summary ---
Author Name Unknown Organization [facility] Address [address] [place] [address] Care Team Providers Care Loans Consultant Name Role Phone Elsewhere, Pcp Primary Care Provider Unavailabl e Reason for Referral * Outpatient (Routine) - Authorized Specialty Diagnoses / Procedures Referred By Olivia gonzalez Referred To Contact Pain Medicine Diagnoses Pancreatitis Chronic (HCC) Pain Abdominal Chronic Jose Roberto Patterson M.D. [address] [place] [phone] [facility] Referral ID Status Reason Start Date Expiration Date Visits Requested Visits Authorized [id number] Authorized Specialty Services Required 04/05/2023 04/04/2024 1 1 E FINISHER Encounter Details Date Type Department Care Team (Latest Contact Info) Description 04/02/2023 Clinical Communication Division of Gastroenterology in [place], [place] [address] [place] [phone] Jose Roberto Patterson M.D. [address] [place] [phone] Social History Tobacco Use Types Packs/Day Years [...] (Latest Contact Info) Description 05/28/2023 3:30 PM PLATE FINISHER Clinical Communication Virtual Review in [place], [place] [address] [place] [address] 05/30/2023 2:30 PM PLATE FINISHER Comprehensive Visit Division of Pain Medicine in [place], [place] [address] [place] [phone] Gricel Lynch APRN, C.N.P. [address] [place] [phone] 07/08/2023 12:15 PM CDT Appointment Division of Gastroenterology in [address] [phone] Jose Roberto Patterson M.D. [address] [place] [phone] Scheduled Referrals Name Type Priority Associated Diagnoses Orde r Schedule Pain Medicine - General consult (clinic) Outpatient Referral Routine Pancreatitis Chronic (HCC) Pain Abdominal Chronic Expected: 04/05/2023 (Approximate), Expires: 07/04/2024 documented as of this encounter Visit Diagnoses Diagnosis Pancreatitis Chronic (HCC)- Primary Pain Abdominal Chronic documented in this encounter Additional Health Concerns Assessment Noted Time PHQ-9 Depression Total Score: 21 012 10:33 AM PLATE FINISHER documented as of this encounter Care Teams Loans Consultant Relationship Specialty Start Date End Date Elsewhere, Pcp PCP - General Internal Medicine 06/26/22 documented as of this encounter
--- OUTSIDE RECORDS SUMMARY | 2023-05-17 08:54 | XMS_ITS | Encounter Summary ---
Author Name Unknown Organization [facility] Address [address] [place] [address] Care Team Providers Care Wire Taper Name Role Phone Elsewhere, Pcp Primary Care Provider Unavailabl e Reason for Visit * Reason Comments Back Pain Encounter Details Date Type Department Care Team (Late st Contact Info) Description 01/05/2023 4:46 PM CDT - 01/05/2023 8:07 PM CDT [facility] [address] [place] [phone] Madhav Basurto APRN, C.N.P., D.N.P. [address] [place] [phone] Rivera Brandt APRN, C.N.P., M.S.N. [address] [place] [phone] Abdominal Pain (Primary Dx) Discharge Disposition: Home [...] your living situation today? [facility] 01/01/2023 Sex and Gender [...] through Care Everywhere. * Abdominal Pain Adult (Sinhala) documented in this encounter Medications at Time [...] THREE TIMES A DAY 0 07/25/2022 02/19/2023 atorvastatin (LIPITOR) 10 mg tablet Take 10 mg by mouth. 0 05/02/2023 baclofen (LIORESAL) 10 mg tablet Take by [...] PM CDT Care of patient transferred to [place] by Madhav Basurto CNP. Disposition pending lab [...] R.N. 01/05/231705 * Madhav Basurto APRN, C.N.Maureen, D.N.P. - 01/05/2023 5:05 PM CDT Images from [...] is currently in. History provided by: Patient full time staff interpreter needed/used: no REVIEW OF SYSTEMS Constitutional: [...] (*) Bilirubin Small (*) pH 5.5 Specific Troy >=1.030 Urobilinogen 0.2 White Blood Cells Occ-3 [...] do not feel a specific trigger point. 181 When leave the room patient appears rather comfortable. Will do a CTA of her chest abdomen pelvis to rule out dissection, pancreatitis although her lipase is negative, as well as ureteral colic.Patient was just able to get a urine. But I believe imaging is indicated secondary to the dissection issue. 182 Patient will be signed out to Rivera Brandt CNP at change of shift. Will need to follow-up on imaging as well as repeat troponin. Anticipate discharge home on pain medication. 182 UA with hematuria although she does carry [...] CBC with a mild leukocytosis and neutrophilia. NURSING INSTRUCTOR unremarkable, CRP is within normal limits, lactate [...] DIAGNOSIS Pending DISPOSITION Pending Madhav Basurto, ARIANE, FACULTY CRIMINAL JUSTICE, RING SPINNER-C, AGACNP-BC, ENP-C Emergency Medicine Madhav Basurto APRN, C.N.P., D.N.P. 01/05/23 1829 documented in this encounter Plan of Treatment Upcoming Encounters Date Type Department Care Team (Latest Contact Info) Description 05/28/2023 3:30 PM DEPARTMENT ASSISTANT Clinical Communication Virtual Review in [place], [place] 200 [place] [address] 05/30/2023 2:30 PM DEPARTMENT ASSISTANT Comprehensive Visit Division of Pain Medicine in [address] [phone] Gricel Lynch APRN, C.N.P. [address] [place] [phone] 07/08/2023 12:15 PM CDT Appointment Division of Gastroenterology in [place], [place] [address] [place] [phone] Joes Roberto Patterson M.D. [address] [place] [phone] documented as of this encounter Procedures Procedure [...] PM CDT 01/05/2023 7:11 PM CDT Narrative [facility] - 01/05/2023 7:33 PM CDT Specimen Information: Specimen ID: [id number] Specimen Type: Blood Specimen Collection Start Date: 01/05/2023 ??7:08 PM Specimen Received Date: 01/05/2023 ??7:11 PM Specimen ID: [id number] Specimen Type: Blood Madhav Basurto APRN, C.N.P., D.N.P. LAB BLOOD TROPONIN [facility] [address] [place] [address], [facility] CNFL [facility] in [address] [address] * Lactate, 3 hour draw (01/05/2023 7:08 PM CDT) Lactate, P 0.7 0.5 - 2.2 mmol/L 01/05/2023 7:32 PM CDT CN[facility] Blood (Blood, Venous) 01/05/2023 7:08 PM CDT 01/05/2023 7:11 PM CDT Sandra Tan APRNN.P., D.N.P. LAB BLOOD NON ADD-ON [facility] [address] [place] [phone], [facility] CN[facility] in [address] [address] * CT Chest Abdomen Pelvis Angiogram with [...] 8.0 01/05/2023 6:12 PM CDT CNFL Specific Troy >=1.030 1.001 - 1.035 01/05/2023 6:12 PM [...] Basurto APRN, C.N.P., D.N.P. LAB URINE ORDERABLES [address] [address], [address] [address] * CRP (C-Reactive Protein) (01/05/2023 4:59 PM CDT) C-Reactive Protein (CRP), P <3.0 <5.0 mg/L 01/05/2023 5:21 PM CDT [facility] Blood (Blood, Venous) 01/05/2023 4:59 PM CDT 01/05/2023 5:02 PM CDT Madhav Basurto APRN, Mona.N.P., D.N.P. LAB BLOOD ADD-ON [address] [address], [address] [address] * D-Dimer (01/05/2023 4:59 PM CDT) D-Dimer, P <220 <=500 ng/mL FEU 01/05/2023 5:20 PM CDT [facility] Comment: ----ADDITIONAL INFORMATION---- D-dimer values less than or equal to 500 ng/mL fibrinogen equivalent units (FEU) may be used in conjunction with clinical pre-test probability to exclude deep vein thrombosis (DVT) and/or pulmonary embolism (PE). Blood (Blood, Venous) 01/05/2023 4:59 PM CDT 01/05/2023 5:02 PM CDT Madhav Basurto APRN, Mona.N.P., D.N.P. LAB BLOOD ADD-ON [address] [address], [address] [address] * Troponin T, Baseline, 5th gen (01/05/2023 4:59 PM CDT) Troponin T, Baseline, 5th gen 6 <=10 ng/L 01/05/2023 5:25 PM CDT [facility] Blood (Blood, Venous) 01/05/2023 4:59 PM CDT 01/05/2023 5:02 PM CDT Madhav Basurto APRN, Mona.N.P., D.N.P. [place] [address], [address] [address] * Lactate, baseline (01/05/2023 4:59 PM CDT) Lactate, P 0.8 0.5 - 2.2 mmol/L 01/05/2023 5:19 PM CDT [facility] Blood (Blood, Venous) 01/05/2023 4:59 PM CDT 01/05/2023 5:02 PM CDT Madhav Basurto APRN, Mona.N.P., D.N.P. LAB BLOOD NON ADD-ON [address] [address], [address] [address] * Lipase (01/05/2023 4:59 PM CDT) Lipase, P 14 13 - 60 U/L 01/05/2023 5: 21 PM CDT CN[facility] Blood (Blood, Venous) 01/05/2023 4:59 PM CDT 01/05/2023 5:02 PM CDT Madhav Basurto APRN, C.N.P., D.N.P. LAB BLOOD ADD-ON [facility] [address] [place] [address], [facility] CN[facility] in [address] [address] * (ABNORMAL) Comprehensive Metabolic Panel (01/05/2023 4:59 PM CDT) [facility] Potassium, P 3.8 3.6 - 5.2 mmol/L [...] Basurto APRN C.N.P., D.N.P. LAB BLOOD ADD-ON [facility] [address] [place] [address], [facility] [address] * (ABNORMAL) CBC with Differential, Blood (01/05/2023 [...] Basurto APRN, C.N.P., D.N.P. LAB BLOOD ADD-ON [facility] [address] [place] [address], [facility] CN[facility] in [address] [address] * ECG 12 Lead (01/05/2023 4:54 PM CDT) Ventricular Rate ECG/Min 63 BPM MUSE WA Interval 164 ms MUSE QRSD Interval 74 ms MUSE QT Interval 428 ms MUSE QTC Interval 437 ms MUSE P [place] 58 degrees MUSE R [place] 58 degrees MUSE T Wave [place] 66 degrees MUSE 01/05/2023 4:54 PM CDT [...] in Anterolateral leads Reviewed by DANNY Lambert Mona Tan APRN.N.P., D.N.P. ECG ORDERABLES MUSE NA documented in [...] 1758 (Given - Provid er: Meagan Lozano R.N.) HYDROmorphone injection 0.5 mg (DILAUDID) (COMPLETED) 0.5 mg, intravenous, Once, On 01/05/23 at 1932, For 1 dose 1940 (Given - Provid er: Kendall Masters R.N.) lidocaine 5 % 1 patch (LIDODERM) 1 [...] 1 dose 1702 (Given - Provid er: Meagan Lozano R.N.) sodium chloride 0.9 % flush 80 mL (COMPLETED) 80 mL, intravenous, Once, On 01/05/23 at 1810, For 1 dose 184 (Given - Provid er: Marito Wright R.T.(R)(CT), R.T.(R)) sodium chloride 0.9 % injection 10 mL (COMPLETED) 10 mL, intravenous, Once, On 01/05/23 at 1810, For 1 dose 184 (Given - Provid er: Shavon Crowe.Felisha.(R)(CT), R.T.(R)) PRN Medication Order 01/03/2023 01/04/2023 01/05/2023 iohexoL 350 mg iodine/mL solution 80 mL (OMNIPAQUE) (COMPLETED) 80 mL, intravenous, Once in imaging, contrast, Starting on 01/05/23 at 1808, For 1 dose 1840 (Given - Provid er: Shavon Crowe.Felisha.(R)(CT), R.T.(R)) documented in this encounter Additional Health Concerns Assessment Noted Time PHQ-9 Depression Total Score: 21 012 10:33 AM DEPARTMENT ASSISTANT documented as of this encounter Care Teams Wire Taper Relationship Specialty Start Date End Date Elsewhere, Pcp PCP - General Internal Medicine 06/26/22 documented as of this encounter
--- OUTSIDE RECORDS SUMMARY | 2023-05-17 08:54 | XMS_ITS | Encounter Summary ---
Author Name Unknown Organization [facility] Address [address] [place] [address] Care Team Providers Care Food And Beverage Intern Name Role Phone Elsewhere, Pcp Primary Care Provider Unavailabl e Encounter Details Date Type Department Care Team (Late st Contact Info) Description 01/02/2023 Documentation Preoperative Evaluation Center in [place], [place] [address] [place] [address] Stacie Porter, ATUL, C.N.P., M.S.N. Social History [...] your living situation today? I have a [facility] place to live 01/01/2023 Sex and [...] appointment is necessary. A comprehensive review of [facility] EMR was performed. We reviewed Care [...] was not seen in [facility]. Please call [phone] ([facility] Doc of the day) week between 8 am and 4:30 pm with any questions. documented in this encounter Plan of Treatment Upcoming Encounters Date Type Department Care Team (Latest Contact Info) Description 05/28/2023 3:30 PM LABOR TRAINER Clinical Communication Virtual Review in [place], [place] 200 [place] [address] 05/30/2023 2:30 PM LABOR TRAINER Comprehensive Visit Division of Pain Medicine in [place], [place] [address] [place] [phone] Gricel Lynch APRN, C.N.P. [address] [place] [phone] 07/08/2023 12:15 PM CDT Appointment Division of Gastroenterology in [place], [place] [address] [place] [phone] Jose Roberto Patterson M.D. [address] [place] [phone] documented as of this encounter Visit Diagnoses Not on filedocumented in this encounter Additional Health Concerns Assessment Noted Time PHQ-9 Depression Total Score: 21 012 10:33 AM LABOR TRAINER documented as of this encounter Care Teams Food And Beverage Intern Relationship Specialty Start Date End Date Elsewhere, Pcp PCP - General Internal Medicine 06/26/22 documented as of this encounter
--- OUTSIDE RECORDS SUMMARY | 2023-05-17 08:54 | XMS_ITS | Encounter Summary ---
Author Name Unknown Organization [facility] Address [address] [place] [address] Care Team Providers Care Burlap Worker Name Role Phone Elsewhere, Pcp Primary Care Provider Unavailabl e Encounter Details Date Type Department Care Team (Latest Contact Info) Description 02/19/2023 Clinical Communication Division of Gastroenterology in [place], [place] [address] [place] [phone] Jose Roberto Patterson M.D. [address] [place] [phone] Social History Tobacco Use Types Packs/Day Years [...] your living situation today? I have a [facility] place to live 01/01/2023 Sex and Gender Information Value Date Recorded Sex Assigned at Female 01/01/2023 9:08 AM CDT Gender Identity Female 01/01/2023 9:08 AM CDT Sexual Orientation Straight 01/01/2023 9: 08 AM CDT documented as of this encounter Miscellaneous Notes * Telephone Encounter - Jose Roberto Patterson M.D. - 02/19/2023 8:57 AM RETURNS CLERK Patient was unable to undergo ESWL today [...] once I have seen her in clinic RNS CLERK documented in this encounter Plan of Treatment Upcoming Encounters Date Type Department Care Team (Latest Contact Info) Description 05/28/2023 3:30 PM RETURNS CLERK Clinical Communication Virtual Review in [place], [place] 200 [place] [address] 05/30/2023 2:30 PM RETURNS CLERK Comprehensive Visit Division of Pain Medicine in [place], [place] [address] [place] [phone] Gricel Lynch, HUMAN SERVICES CARE SPECIALIST, C.N.P. [address] [place] [phone] 07/08/2023 12:15 PM CDT Appointment Division of Gastroenterology in [address] [phone] Jose Roberto Patterson M.D. [address] [place] [phone] documented as of this encounter Visit Diagnoses Diagnosis Pancreatitis Chronic (HCC)- Primary documented in this encounter Additional Health Concerns Assessment Noted Time PHQ-9 Depression Total Score: 21 012 10:33 AM RETURNS CLERK documented as of this encounter Care Teams Burlap Worker Relationship Specialty Start Date End Date Elsewhere, Pcp PCP - General Internal Medicine 06/26/22 documented as of this encounter
--- OUTSIDE RECORDS SUMMARY | 2023-05-17 08:55 | XMS_ITS | Encounter Summary ---
Author Name Unknown Organization [facility] Address [address] [place] [address] Care Team Providers Care Teacher Tutor Name Role Phone Elsewhere, Pcp Primary Care Provider Unavailabl e Reason for Referral * Outpatient (Routine) - Closed Specialty Diagnoses / Procedures Referred By Olivia gonzalez Referred To Contact Diagnoses Pancreatitis Chronic (HCC) Procedures DX Abdomen 4 Views DX Kidneys Ureters Bladder Jeanie Carter M.B.B.S., M.S. [address] [place] [phone] [facility] Referral ID Status Reason Start Date Expiration Date Visits Re quested Visits Authorized [id number] Closed 12/13/2022 12/13/2023 1 1 Encounter Details Date Type Department Care Team (Latest Contact Info) Description 12/12/2022 3:00 PM CDT Telemedicine Division of Gastroenterology in [place], [place] [address] [place] [phone] Peewee Wilcox M.S.N., R.N. Pancreatitis Chronic (HCC) [...] Hepatology: Pancreas Clinic RN Pre-Visit. Patient contacted [facility] requesting on-campus appointment; pre-visit was scheduled following that request. Completed administrative pre-visit discussion to better understand patient goals and the needed patient itinerary for the requested on-site visit. This pre-visit does not establish a long-term relationship. This interview occurred via real-time audio/video technology by Francesco Mann., R.N. at [facility] to the patient in the patient's home. The information below is based on review of available medical records and a virtual conversation with the patient. History of Present Illness Ms. Prince is a 67 y.o. female who is being interviewed for a pre-visit encounter. Our records indicate that Ms. Prince is seeking an appointment at [facility] for chronic pancreatitis. Ms. Prince was previously seen in the Pancreas Clinic at [facility] in January 2011 for evaluation of pancreatitis. Her last evaluation at [facility] was with Debra Otto APRN, [facility] in December 2014.Ms. Prince has had abdominal pain since about 1999 and was first diagnosed with pancreatitis in 2006.She's had several admissions over the years for her recurrent abdominal pain. Over the last 6 months, she's had significant pain and notes she is not getting much help. She's been receiving care [facility] in [place], as well as at [facility]. Prior to the last 6months, she had [...] Contact Info) Description 05/28/2023 3:30 PM PLATE MILL MILL HAND Clinical Communication Virtual Review in [address] [address] 05/30/2023 2:30 PM PLATE MILL MILL HAND Comprehensive Visit Division of Pain Medicine in [address] [phone] Gricel Lynch, APPAREL TRIMMINGS SALES REPRESENTATIVE, C.N.P. [address] [place] [phone] 07/08/2023 12:15 PM CDT Appointment Division of Gastroenterology in [address] [phone] Jose Roberto Patterson M.D. [address] [place] [phone] documented as of this encounter Results * [...] Total Score: 21 05/31/ 012 10:33 AM PLATE MILL MILL HAND documented as of this encounter Care Teams Teacher Tutor Relationship Specialty Start Date End Date Elsewhere, Pcp PCP - General Internal Medicine 06/26/22 documented as of this encounter
--- OUTSIDE RECORDS SUMMARY | 2023-05-17 08:55 | XMS_ITS | Encounter Summary ---
Author Name Unknown Organization [facility] Address [address] [place] [address] Care Team Providers Care Middleware Consultant Name Role Phone Elsewhere, Pcp Primary Care Provider Unavailabl e Reason for Visit * Reason Comments Abdominal Pain Encounter Details Date Type Department Care Team (Late st Contact Info) Description 10/25/2022 5:15 PM CDT - 10/25/2022 7:09 PM CDT Emergency [facility] [address] [place] [phone] Rivera Brandt, ATUL, C.N.P., M.S.N. [address] [place] [phone] Abdominal Pain (Primary Dx) Discharge Disposition: Home [...] through Care Everywhere. * Abdominal Pain Adult (Jordanian) documented in this encounter Medications at Time [...] Units under the skin. 0 09/17/2022 02/19/2023 xojndhklwvid-hnvrlufd-AY -lutein (CENTRUM SILVER) 400-250 mcg per chewable [...] pain in her abd. Izzy Santiago RCarlosN. 10/25/22 172 documented in this encounter Plan of Treatment Upcoming Encounters Date Type Department Care Team (Latest Contact Info) Description 05/28/2023 3:30 PM TOOL KEEPER Clinical Communication Virtual Review in [address] [address] 05/30/2023 2:30 PM TOOL KEEPER Comprehensive Visit Division of Pain Medicine in [place], [place] [address] [place] [phone] Gricel Lynch APRN, C.N.P. [address] [place] [phone] 07/08/2023 12:15 PM CDT Appointment Division of Gastroenterology in [place], [place] [address] [place] [phone] Jose Roberto Patterson M.D. [address] [place] [phone] documented as of this encounter Procedures Procedure [...] 6:20 PM CDT 10/25/2022 6:23 PM CDT iRvera Brandt APRN, C.N.P., M.S.N. LAB BLOO D ADD-ON Performing Organization Address City/State/[facility] Co de Phone Number [facility] [address] [place] [phone], [facility] CNFL [facility] in [address] [address] * Lactate (10/25/2022 6:20 PM CDT) Lactate, P 0.9 0.5 - 2.2 mmol/L 10/25/2022 6:39 PM CDT CNFL Blood (Blood, Venous) 10/25/2022 6:20 PM CDT 10/25/2022 6:23 PM CDT Mona Voss APRN.N.P., M.S.N. LAB BLOO D NON ADD-ON [facility] [address] [place] [address], [facility] [place] [address] * (ABNORMAL) Comprehensive Metabolic Panel (10/25/2022 6:20 [...] APRN C.N.P., M.S.N. LAB BLOO D ADD-ON [facility] [address] [place] [address], [facility] [place] [address] * (ABNORMAL) CBC with Differential, Blood (10/25/2022 [...] LAB BLOO D ADD-ON Performing Organization Address City/State/[facility] Co de Phone Number [facility] [address] [place] [address], [facility] in [address] [address] documented in this encounter Visit Diagnoses Diagnosis [...] 10/25/22 at 1745, For 1 dose 182 (Given - Provid er: Izzy Santiago R.N.) [...] Depression Total Score: 21 012 10:33 AM TOOL KEEPER documented as of this encounter Care Teams Middleware Consultant Relationship Specialty Start Date End Date Elsewhere, Pcp PCP - General Internal Medicine 06/26/22 documented as of this encounter
--- OUTSIDE RECORDS SUMMARY | 2023-05-17 08:55 | XMS_ITS | Encounter Summary ---
Author Name Unknown Organization [facility] Address [address] [place] [address] Care Team Providers Care Hammer Shop Supervisor Name Role Phone Elsewhere, Pcp Primary Care Provider Unavailabl e Encounter Details Date Type Department Care Team (Late st Contact Info) Description 01/01/2023 Clinical Communication Department of Urology in [place], [place] [address] [place] [phone] Luis Andrew M.D., M.P.H. [address] [place] [phone] Social History Tobacco Use Types Packs/Day Years [...] living situation today? I have a [facility] place to live 01/01/2023 Sex and [...] her procedure on February [address] Adnrew. I asked her to review this information [...] on February [address] Andrew at [facility]. E-mail sent tovendor and nurse business systems manager, awaiting reply. Once confirmed, we will need to notify patient and place orders for [facility], send inbasket to [facility] (DOS) or [facility] (PASS) for ERCP coordination after surgery. documented in this encounter Plan of Treatment Upcoming Encounters Date Type Department Care Team (Latest Contact Info) Description 05/28/2023 3:30 PM TOWER CONTROL OPERATOR Clinical Communication Virtual Review in [place], [place] 200 [place] [address] 05/30/2023 2:30 PM TOWER CONTROL OPERATOR Comprehensive Visit Division of Pain Medicine in [place], [place] [address] [place] [phone] Gricel Lynch, ATUL, C.N.P. [address] [place] [phone] 07/08/2023 12:15 PM CDT Appointment Division of Gastroenterology in [address] [phone] Jose Roberto Patterson M.D. [address] [place] [phone] documented as of this encounter Visit Diagnoses Diagnosis Stone Pancreatic Duct- Primary documented in this encounter Additional Health Concerns Assessment Noted Time PHQ-9 Depression Total Score: 21 012 10:33 AM TOWER CONTROL OPERATOR documented as of this encounter Care Teams Hammer Shop Supervisor Relationship Specialty Start Date End Date Elsewhere, Pcp PCP - General Internal Medicine 06/26/22 documented as of this encounter
--- OUTSIDE RECORDS SUMMARY | 2023-05-17 08:55 | XMS_ITS | Encounter Summary ---
Author Name Unknown Organization [facility] Address [address] [place] [address] Care Team Providers Care Health And Safety Inspector Name Role Phone Elsewhere, Pcp Primary Care Provider Unavailabl e Reason for Visit * Outpatient (Routine) - Closed Specialty Diagnoses / Procedures Referred By Olivia t Referred To Contact Urology Diagnoses Pancreatitis Chronic (HCC) Jose Roberto Patterson M.D. [address] [place] [phone] [facility] Referral ID Status Reason Start Date Expiration Date Visits Re quested Visits Authorized [id number] Closed 12/27/2022 12/27/2023 1 1 Encounter Details Date Type Department Care Team (Late st Contact Info) Description 01/01/2023 9:30 AM CDT Telemedicine Department of Urology in [place], [place] [address] [place] [phone] Luis Andrew M.D., M.P.H. [address] [place] [phone] Stone Pancreatic Duct (Primary Dx); Pancreatitis Chronic [...] living situation today? I have a [facility] place to live 01/01/2023 Sex and Gender [...] the request of Jose Roberto Patterson M.D. [address] [place] [phone] REASON FOR CONSULT Nephrolithiasis Patient seen on Dr. Andrew's calendar Consult conducted via real-time audio/video technology by Ilene Cedillo APRN, C.N.PCarlos, D.N.P. [facility] to the patient in Patient's Home HISTORY [...] (Latest Contact Info) Description 05/28/2023 3:30 PM UTILITY ASSEMBLER Clinical Communication Virtual Review in [address] [address] 05/30/2023 2:30 PM UTILITY ASSEMBLER Comprehensive Visit Division of Pain Medicine in [address] [phone] Gricel Lynch, DIGITAL MEDIA BUYER, C.N.P. [address] [place] [phone] 07/08/2023 12:15 PM CDT Appointment Division of Gastroenterology in [address] [phone] Jose Roberto Patterson M.D. [address] [place] [phone] documented as of this encounter Visit Diagnoses Diagnosis Stone Pancreatic Duct- Primary Pancreatitis Chronic (HCC) documented in this encounter Additional Health Concerns Assessment Noted Time PHQ-9 Depression Total Score: 21 012 10:33 AM UTILITY ASSEMBLER documented as of this encounter Care Teams Health And Safety Inspector Relationship Specialty Start Date End Date Elsewhere, Pcp PCP - General Internal Medicine 06/26/22 documented as of this encounter
--- OUTSIDE RECORDS SUMMARY | 2023-05-17 08:55 | XMS_ITS | Encounter Summary ---
Author Name Unknown Organization [facility] Address [address] [place] [address] Care Team Providers Care Travel Coordinator Name Role Phone Elsewhere, Pcp Primary Care Provider Unavailabl e Reason for Referral * Outpatient (Routine) - Closed Specialty Diagnoses / Procedures Referred By Olivia gonzalez Referred To Contact Diagnoses Pancreatitis Chronic (HCC) Procedures DX Abdomen 4 Views DX Kidneys Ureters Bladder Arturo Camacho M.B.BChantell, M.S. [address] [place] [phone] [facility] Referral ID Status Reason Start Date Expiration Date Visits Re quested Visits Authorized [id number] Closed 12/13/2022 12/13/2023 1 1 Reason for Visit * Outpatient (Routine) - Closed Specialty Diagnoses / Procedures Referred By Olivia gonzalez Referred To Contact Diagnoses Pancreatitis Chronic (HCC) Procedures DX Abdomen 4 Views DX Kidneys Ureters Bladder Arturo Camacho M.B.B.S., M.S. [address] [place] [phone] [facility] Referral ID Status Reason Start Date Expiration Date Visits Re quested Visits Authorized [id number] Closed 12/13/2022 12/13/2023 1 1 Encounter Details Date Type Department Care Team (Latest Contact Info) Description 12/26/2022 2:12 PM CDT - 12/26/2022 11:59 PM CDT Hospital Encounter Department of Radiology, [facility], in [place], [place] [address] [place] [address] Arturo Camacho M.B.B.S., M.S. [address] [place] [address] Pancreatitis Chronic (HCC) Discharge Disposition: Home or [...] Units under the skin. 0 09/17/2022 02/19/2023 ohgyhyytkuzr-dlzajklp-PP -lutein (CENTRUM SILVER) 400-250 mcg per chewable tablet Chew 1 tablet at bedtime. 0 01/01/2023 documented as of this encounter Miscellaneous Notes * Result Encounter Note - Arturo Camacho M.B.B.S., M.S. - 12/30/2022 7:46 PM CDT FYI documented in this encounter Plan of Treatment Upcoming Encounters Date Type Department Care Team (Latest Contact Info) Description 05/28/2023 3:30 PM CUSTOMER DEVELOPMENT REPRESENTATIVE Clinical Communication Virtual Review in [address] [address] 05/30/2023 2:30 PM CUSTOMER DEVELOPMENT REPRESENTATIVE Comprehensive Visit Division of Pain Medicine in [address] [phone] Gricel Lynch, SAND CONTROL WORKER, C.N.P. [address] [place] [phone] 07/08/2023 12:15 PM CDT Appointment Division of Gastroenterology in [address] [phone] Jose Roberto Patterson M.D. [address] [place] [phone] documented as of this encounter Procedures Procedure [...] Nonobstructive bowel gas pattern. Aortic calcifications. Arturo McgillS., M.S. IMG DIAGNO STIC IMAGING PROCEDURES documented in this encounter Visit Diagnoses Diagnosis Pancreatitis Chronic (HCC) documented in this encounter Additional Health Concerns Assessment Noted Time PHQ-9 Depression Total Score: 21 05/31/ 012 10:33 AM CUSTOMER DEVELOPMENT REPRESENTATIVE documented as of this encounter Care Teams Travel Coordinator Relationship Specialty Start Date End Date Elsewhere, Pcp PCP - General Internal Medicine 06/26/22 documented as of this encounter
--- OUTSIDE RECORDS SUMMARY | 2023-05-17 08:55 | XMS_ITS | Encounter Summary ---
Author Name Unknown Organization [facility] Address [address] [place] [address] Care Team Providers Care Evening Or Night Nurse Supervisor Name Role Phone Elsewhere, Pcp Primary Care Provider Unavailabl e Encounter Details Date Type Department Care Team (Latest Contact Info) Description 12/27/2022 1:13 PM CDT Anesthesia Event Division of Gastroenterology in [place], [place] [address] [place] [phone] Gelacio Colunga APRN, MEDIA PRODUCTION SUPPORT MANAGER [address] [place] [phone] Shane Carlos M.D. [address] [place] [phone] Anesthesia Record Procedure Summary Procedure Name Responsible Anesthesiologist Anesthesia Start Time Anesthesia Stop Time ENDOSCOPIC ULTRASOUND (EUS) Gelacio Colunga APRN, MEDIA PRODUCTION SUPPORT MANAGER 12/27/22 1313 12/27/22 1419 Events Date Time [...] Time: 15312/27/22 1330 by Gelacio Colunga APRN, MEDIA PRODUCTION SUPPORT MANAGER 12/27/22 1539 by Mitzy Arce, R.N. documented [...] Room / Location: Division of Gastroenterology in [place], [place] Anesthesia Start: 1313 Anesthesia Stop: 141 [...] ETT location: oral VL device: glide scope [place] scope blade size: 3 Tube size: 7 [...] (HCC) [K86.1] Location: Division of Gastroenterology in [place], [place] Pertinent components of the patient's history [...] with patient /legal guardian or through an fretted instruments inspector. The use of blood products not discussed Approval to Proceed: approved for anesthesia documented in this encounter Plan of Treatment Upcoming Encounters Date Type Department Care Team (Latest Contact Info) Description 05/28/2023 3:30 PM REFINING ENGINEER Clinical Communication Virtual Review in [address] [address] 05/30/2023 2:30 PM REFINING ENGINEER Comprehensive Visit Division of Pain Medicine in [address] [phone] Gricel Lynch APRN, C.N.P. [address] [place] [phone] 07/08/2023 12:15 PM CDT Appointment Division of Gastroenterology in [address] [phone] Jose Roberto Patterson M.D. [address] [place] [phone] documented as of this encounter Procedures Procedure [...] ETT location: oral VL device: glide scope [place] scope blade size: 3 Tube size: 7 [...] Airway event: no complications Siddhartha Johnson APRN, MEDIA PRODUCTION SUPPORT MANAGER ANESTHESIA ORD ERABLES documented in this encounter [...] Depression Total Score: 21 012 10:33 AM REFINING ENGINEER documented as of this encounter Care Teams Evening Or Night Nurse Supervisor Relationship Specialty Start Date End Date Elsewhere, Pcp PCP - General Internal Medicine 06/26/22 documented as of this encounter
--- OUTSIDE RECORDS SUMMARY | 2023-05-17 08:55 | XMS_ITS | Encounter Summary ---
Author Hub.Moni m Preferred Language ENG Marital Status Zoroastrianism Affiliation Unknown Race White Ethnic Group Not or Lati no Author Name Unknown Organization [facility] Address [address] [place] [address] Care Team Providers Care Healthcare Marketer Name Role Phone Elsewhere, Pcp Primary Care Provider Unavailabl e Reason for Visit * Reason Onset Date Comments Previsit Preparation 11/09/2022 Pancreas 11/09/2022 OSM 11/09/2022 [facility] Encounter Details Date Type Department Care Team (Latest Contact Info) Description 11/09/2022 Clinical Communication Division of Gastroenterology in [place], [place] [address] [place] [address] Provider, Unknown Previsit Preparation; Pancreas; OSM (GIH/) [...] (Latest Contact Info) Description 05/28/2023 3:30 PM VP CARE MANAGEMENT Clinical Communication Virtual Review in [place], [place] 200 [place] [address] 05/30/2023 2:30 PM VP CARE MANAGEMENT Comprehensive Visit Division of Pain Medicine in [address] [phone] Gricel Lynch, PAINTER SHIPYARD, C.N.P. [address] [place] [phone] 07/08/2023 12:15 PM CDT Appointment Division of Gastroenterology in [address] [phone] Jose Roberto Patterson M.D. [address] [place] [phone] documented as of this encounter Visit Diagnoses Not on filedocumented in this encounter Additional Health Concerns Assessment Noted Time PHQ-9 Depression Total Score: 21 012 10:33 AM VP CARE MANAGEMENT documented as of this encounter Care Teams Healthcare Marketer Relationship Specialty Start Date End Date Elsewhere, Pcp PCP - General Internal Medicine 06/26/22 documented as of this encounter
--- OUTSIDE RECORDS SUMMARY | 2023-05-17 08:55 | XMS_ITS | Encounter Summary ---
Author Name Unknown Organization [facility] Address [address] [place] [address] Care Team Providers Care Electric Range Servicer Name Role Phone Elsewhere, Pcp Primary Care Provider Unavailabl e Reason for Visit * Reason Onset Date Comments was inpatient and left of ow n decision, wants readmitted 10/25/2022 Admitted 10-23-22, left the hospital 10-24-22 Encounter Details Date Type Department Care Team (Late st Contact Info) Description 10/25/2022 Nurse Triage Department of Family Medicine in [place], [place] [address] [place] [phone] Tiki Adams, R.N. was inpatient and left [...] to the triager Protocols used: Post-Hospitalization Follow-up [id number] Care Advice Patient/Caregiver understands and will follow [...] (Latest Contact Info) Description 05/28/2023 3:30 PM FLAT EXAMINER Clinical Communication Virtual Review in [place], [place] 200 [place] [address] 05/30/2023 2:30 PM FLAT EXAMINER Comprehensive Visit Division of Pain Medicine in [place], [place] [address] [place] [phone] Gricel Lynch, BOTTOM IRONER, C.N.P. [address] [place] [phone] 07/08/2023 12:15 PM CDT Appointment Division of Gastroenterology in [place], [place] [address] [place] [phone] Jose Roberto Patterson M.D. [address] [place] [phone] documented as of this encounter Visit Diagnoses Not on filedocumented in this encounter Additional Health Concerns Assessment Noted Time PHQ-9 Depression Total Score: 21 012 10:33 AM FLAT EXAMINER documented as of this encounter Care Teams Electric Range Servicer Relationship Specialty Start Date End Date Elsewhere, Pcp PCP - General Internal Medicine 06/26/22 documented as of this encounter
--- OUTSIDE RECORDS SUMMARY | 2023-05-17 08:55 | XMS_ITS | Encounter Summary ---
Author Name Unknown Organization [facility] Address [address] [place] [address] Care Team Providers Care Tank Tester Name Role Phone Elsewhere, Pcp Primary Care [...] (Latest Contact Info) Description 05/28/2023 3:30 PM SODDER Clinical Communication Virtual Review in [place], [place] [address] [place], [place] [address] 05/30/2023 2:30 PM SODDER Comprehensive Visit Division of Pain Medicine in [place], [place] [address] [place] [address] Gricel Lynch APRN, C.N.P. [address] [place] [phone] 07/08/2023 12:15 PM CDT Appointment Division of Gastroenterology in [place], [place] [address] [place] [phone] Jose Roberto Patterson M.D. [address] [place] [phone] documented as of this encounter Procedures Procedure [...] Depression Total Score: 21 012 10:33 AM SODDER documented as of this encounter Care Teams Tank Tester Relationship Specialty Start Date End Date Elsewhere, Pcp PCP - General Internal Medicine 06/26/22 documented as of this encounter
--- OUTSIDE RECORDS SUMMARY | 2023-05-17 08:55 | XMS_ITS | Encounter Summary ---
Author Name Unknown Organization [facility] Address [address] [place] [address] Care Team Providers Care Farmer General Name Role Phone Elsewhere, Pcp Primary Care Provider Unavailabl e Reason for Referral * Outpatient (Routine) - Authorized Specialty Diagnoses / Procedures Referred By Contact Referred To Contact Gastroenterology and Hepatology Jose Roberto Patterson M.D. [address] [place] [address] [facility] Referral ID Status Reason Start Date Expiration Date V isits Requested Visits Authorized [id number] Authorized 12/27/2022 12/26/2025 1 1 * Outpatient (Routine) - Closed Specialty Diagnoses / Procedures Referred By Contac t Referred To Contact Diagnoses Pancreatitis Chronic (HCC) Procedures ERCP Jose Roberto Patterson M.D. [address] [place] [address] [facility] Referral ID Status Reason Start Date Expiration Date Visits Re quested Visits Authorized [id number] Closed 12/27/2022 12/27/2023 1 1 * Outpatient (Routine) - Closed Specialty Diagnoses / Procedures Referred By Contac t Referred To Contact Urology Diagnoses Pancreatitis Chronic (HCC) Jose Roberto Patterson M.D. [address] [place] [phone] [facility] Referral ID Status Reason Start Date Expiration Date Visits Re quested Visits Authorized [id number] Closed 12/27/2022 12/27/2023 1 1 Scheduling Instructions Schedule with Dr. Andrew - not kidney stones, but pancreatic duct stones * Outpatient (Routine) - Closed Specialty Diagnoses / Procedures Referred By Olivia t Referred To Contact Pulmonary Medicine / Nicotine Dependence Diagnoses Pancreatitis Chronic (HCC) Jose Roberto Patterson M.D. [address] [place] [phone] [facility] Referral ID Status Reason Start Date Expiration Date Visits Re quested Visits Authorized [id number] Closed 12/27/2022 12/27/2023 1 1 * Outpatient (Routine) - Closed Specialty Diagnoses / Procedures Referred By Olivia t Referred To Contact Diagnoses Pancreatitis Chronic (HCC) Procedures Endoscopic ultrasound (EUS) Jose Roberto Patterson M.D. [address] [place] [phone] [facility] Referral ID Status Reason Start Date Expiration Date Visits Re quested Visits Authorized [id number] Closed 12/27/2022 12/27/2023 1 1 Reason for Visit * Appointment Request (Routine) - Closed Specialty Diagnoses / Procedures Referred By Contact Referred To Contact Gastroenterology and Hepatology Diagnoses Pancreatitis Chronic Recurrent (HCC) Referral ID Status Reason Start Date Expiration Date Visits Re quested Visits Authorized [id number] Closed 11/09/2022 11/09/2023 1 1 Encounter Details Date Type Department Care Team (Latest Contact Info) Description 12/27/2022 9:00 AM CDT Comprehensive Visit Division of Gastroenterology in [place], [place] [address] [place] [address] Jose Roberto Hays M.D. [address] [place] [address] Pancreatitis Chronic (HCC) (Primary Dx); Pain Abdominal [...] Patterson M.D. - 12/27/2022 9:00 AM CDT [facility] Outpatient Consultation NAME: Yary Prince [...] (Latest Contact Info) Description 05/28/2023 3:30 PM CHORUS MASTER Clinical Communication Virtual Review in [place], [place] 200 [place] [address] 05/30/2023 2:30 PM CHORUS MASTER Comprehensive Visit Division of Pain Medicine in [place], [place] [address] [place] [phone] Gricel Lynch, ATUL, C.N.P. [address] [place] [phone] 07/08/2023 12:15 PM CDT Appointment Division of Gastroenterology in [place], [place] [address] [place] [phone] Jose Roberto Patterson M.D. [address] [place] [phone] Scheduled Referrals Name Type Priority Associated Diagnoses [...] Depression Total Score: 21 012 10:33 AM CHORUS MASTER documented as of this encounter Care Teams Farmer General Relationship Specialty Start Date End Date Elsewhere, Pcp PCP - General Internal Medicine 06/26/22 documented as of this encounter
--- OUTSIDE RECORDS SUMMARY | 2023-05-17 08:55 | XMS_ITS | Encounter Summary ---
Author Name Unknown Organization [facility] Address [address] [place] [address] Care Team Providers Care Dehydrogenation Operator Name Role Phone Elsewhere, Pcp Primary Care Provider Unavailabl e Reason for Visit * Reason Onset Date Comments New Med Request 01/02/2023 Encounter Details Date Type Department Care Team (Latest Contact Info) Description 01/02/2023 Clinical Communication Department of Nicotine Dependence, [facility], in [place], [place] [address] [place] [phone] Froy Can M.A. New Med Request Social [...] your living situation today? I have a [facility] place to live 01/01/2023 Sex and [...] PM CDT Manisha, starter, continuation, with refills [place], [place] documented in this encounter Plan of Treatment Upcoming Encounters Date Type Department Care Team (Latest Contact Info) Description 05/28/2023 3:30 PM COMPLIANCE ASSOCIATE Clinical Communication Virtual Review in [place], [place] 200 [place] [address] 05/30/2023 2:30 PM COMPLIANCE ASSOCIATE Comprehensive Visit Division of Pain Medicine in [address] [phone] Gricel Lynch, SEAFOOD PROCESS WORKER, C.N.P. [address] [place] [phone] 07/08/2023 12:15 PM CDT Appointment Division of Gastroenterology in [address] [phone] Jose Roberto Patetrson M.D. [address] [place] [phone] documented as of this encounter Visit Diagnoses Not on filedocumented in this encounter Additional Health Concerns Assessment Noted Time PHQ-9 Depression Total Score: 21 012 10:33 AM COMPLIANCE ASSOCIATE documented as of this encounter Care Teams Dehydrogenation Operator Relationship Specialty Start Date End Date Elsewhere, Pcp PCP - General Internal Medicine 06/26/22 documented as of this encounter
--- OUTSIDE RECORDS SUMMARY | 2023-05-17 08:55 | XMS_ITS | Encounter Summary ---
Author Name Unknown Organization [facility] Address [address] [place] [address] Care Team Providers Care Evp Head Of [employer] Experience Strategy Name Role Phone Elsewhere, Pcp Primary Care Provider Unavailabl e Reason for Referral * Outpatient (Routine) - Closed Specialty Diagnoses / Procedures Referred By Olivia gonzalez Referred To Contact Diagnoses Pancreatitis Chronic (HCC) Procedures Endoscopic ultrasound (EUS) Jose Roberto Patterson M.D. 200 [place] [address] [facility] Referral ID Status Reason Start Date Expiration Date Visits Re quested Visits Authorized [id number] Closed 12/27/2022 12/27/2023 1 1 Reason for Visit * Outpatient (Routine) - Closed Specialty Diagnoses / Procedures Referred By Olivia gonzalez Referred To Contact Diagnoses Pancreatitis Chronic (HCC) Procedures Endoscopic ultrasound (EUS) Jose Roberto Patterson M.D. 200 [place] [address] [facility] Referral ID Status Reason Start Date Expiration Date Visits Re quested Visits Authorized [id number] Closed 12/27/2022 12/27/2023 1 1 Encounter Details Date Type Department Care Team (Latest Contact Info) Description 12/27/2022 9:56 AM CDT - 12/27/2022 11:59 PM CDT Hospital Encounter Division of Gastroenterology in [place], [place] 200 [place] [address] Jose Roberto Patterson M.D. [address] [place] [address] Pancreatitis Chronic (HCC) Discharge Disposition: Home or [...] Units under the skin. 0 09/17/2022 02/19/2023 lejbxqwguqgi-atxqbcdt-HF -lutein (CENTRUM SILVER) 400-250 mcg per chewable tablet Chew 1 tablet at bedtime. 0 01/01/2023 documented as of this encounter Plan of Treatment Upcoming Encounters Date Type Department Care Team (Latest Contact Info) Description 05/28/2023 3:30 PM MANAGER SHELL Clinical Communication Virtual Review in [place], [place] 200 [place] [address] 05/30/2023 2:30 PM MANAGER SHELL Comprehensive Visit Division of Pain Medicine in [address] [phone] Gricel Lynch, SPINDLE SETTER, C.N.P. [address] [place] [phone] 07/08/2023 12:15 PM CDT Appointment Division of Gastroenterology in [address] [phone] Jose Roberto Patterson M.D. [address] [place] [phone] Scheduled Orders Name Type Priority Associated Diagnoses [...] PM CDT) 12/27/2022 1:16 PM CDT Impressions [facility] - 12/27/2022 3:34 PM CDT Post-op Diagnoses: [...] Celiac plexus block performed as above. Narrative [facility] - 12/27/2022 3:34 PM CDT Gonda 2 [...] GI PROCEDURE O RDERABLES Performing Organization Address City/[facility]/ZIP Co de Phone Number [employer] NA * (ABNORMAL) Glucose, POCT (12/27/2022 1:00 PM CDT) Glucose, POCT, B 237(H) 70 - 140 mg/dL 12/27/2022 1:04 PM CDT PCMO Site Capillary 12/27/2022 1:04 PM CDT PCMO Blood 12/27/2022 1:00 PM CDT 12/27/2022 1:05 PM CDT Unknown Provider LAB POCT ORDERABLES- MANUAL Performing Organization Address City/[facility]/ZIP Co de Phone Number [facility]OC [facility] 200 [place] [address], [facility] P[facility] 200 [place] [address] documented in this encounter Visit Diagnoses Diagnosis [...] Score: 21 05/31/ 012 10:33 AM MANAGER SHELL documented as of this encounter Care Teams Evp Head [employer] Experience Strategy Relationship Specialty Start Date End Date Elsewhere, Pcp PCP - General Internal Medicine 06/26/22 documented as of this encounter
--- OUTSIDE RECORDS SUMMARY | 2023-05-17 08:55 | XMS_ITS | Encounter Summary ---
Author Name Unknown Organization [facility] Address [address] [place] [id number] Care Team Providers Care Skirt Maker Name Role Phone Elsewhere, Pcp Primary Care Provider Unavailabl e Reason for Visit * Reason Onset Date Comments Pre-visit Intake 12/10/2022 Encounter Details Date Type Department Care Team (Latest Contact Info) Description 12/10/2022 3:45 PM CDT Clinical Communication Virtual Review in [address] [phone] Pre-visit Intake Social History Tobacco Use Types [...] (Latest Contact Info) Description 05/28/2023 3:30 PM FELT FINISHING SUPERVISOR Clinical Communication Virtual Review in [place], [place] 200 [place] [address] 05/30/2023 2:30 PM FELT FINISHING SUPERVISOR Comprehensive Visit Division of Pain Medicine in [address] [phone] Gricel Lynch APRN, C.N.P. [address] [place] [phone] 07/08/2023 12:15 PM CDT Appointment Division of Gastroenterology in [address] [phone] Jose Roberto Patterson M.D. [address] [place] [phone] documented as of this encounter Visit Diagnoses Not on filedocumented in this encounter Additional Health Concerns Assessment Noted Time PHQ-9 Depression Total Score: 21 012 10:33 AM FELT FINISHING SUPERVISOR documented as of this encounter Care Teams Skirt Maker Relationship Specialty Start Date End Date Elsewhere, Pcp PCP - General Internal Medicine 06/26/22 documented as of this encounter
--- OUTSIDE RECORDS SUMMARY | 2023-05-17 08:55 | XMS_ITS | Encounter Summary ---
Author Name Unknown Organization [facility] Address [address] [place] [id number] Care Team Providers Care Commission Specialist Name Role Phone Elsewhere, Pcp Primary Care Provider Unavailabl e Reason for Visit * Reason Onset Date Comments Appt Request 12/27/2022 Encounter Details Date Type Department Care Team (Late st Contact Info) Description 12/27/2022 Clinical Communication Department of Urology in [place], [place] [address] [place] [phone] Luis Andrew M.D., M.P.H. [address] [place] [address] [phone] Appt Request Social History Tobacco Use Types [...] your living situation today? I have a [facility] place to live 01/01/2023 Sex and Gender Information Value Date Recorded Sex Assigned at Female 01/01/2023 9:08 AM CDT Gender Identity Female 01/01/2023 9:08 AM CDT Sexual Orientation Straight 01/01/2023 9: 08 AM CDT documented as of this encounter Plan of Treatment Upcoming Encounters Date Type Department Care Team (Latest Contact Info) Description 05/28/2023 3:30 PM CLEANER AND TRIMMER Clinical Communication Virtual Review in [place], [place] 200 [place] [address] 05/30/2023 2:30 PM CLEANER AND TRIMMER Comprehensive Visit Division of Pain Medicine in [place], [place] [address] [place] [phone] Gricel Lynch, HISTOPATHOLOGY TECHNICIAN, C.N.P. [address] [place] [phone] 07/08/2023 12:15 PM CDT Appointment Division of Gastroenterology in [place], [place] [address] [place] [phone] Jose Roberto Patterson M.D. [address] [place] [phone] documented as of this encounter Visit Diagnoses Not on filedocumented in this encounter Additional Health Concerns Assessment Noted Time PHQ-9 Depression Total Score: 21 05/31/ 012 10:33 AM CLEANER AND TRIMMER documented as of this encounter Care Teams Commission Specialist Relationship Specialty Start Date End Date Elsewhere, Pcp PCP - General Internal Medicine 06/26/22 documented as of this encounter
--- OUTSIDE RECORDS SUMMARY | 2023-05-17 08:55 | XMS_ITS | Encounter Summary ---
Author Name Unknown Organization [facility] Address [address] [place] [phone] Care Team Providers Care Engineering Teacher Name Role Phone Elsewhere, Pcp Primary Care Provider Unavailabl e Reason for Visit * Reason Comments Nicotine Dependence * Outpatient (Routine) - Closed Specialty Diagnoses / Procedures Referred By Contgriffin t Referred To Contact Pulmonary Medicine / Nicotine Dependence Diagnoses Pancreatitis Chronic (HCC) Jose Roberto Patterson M.D. [address] [place] [phone] [facility] Referral ID Status Reason Start Date Expiration Date Visits Re quested Visits Authorized [id number] Closed 12/27/2022 12/27/2023 1 1 Encounter Details Date Type Department Care Team (Late st Contact Info) Description 01/02/2023 11:00 AM CDT Telemedicine Department of Nicotine Dependence, [facility], in [place], [place] [address] [place] [phone] Jose Roberto Patterson M.D. [address] [place] [phone] Froy Can M.A. Nicotine Dependence Cigarettes (Primary [...] your living situation today? I have a [facility] place to live 01/01/2023 Sex and Gender Information Value Date Recorded Sex Assigned at Female 01/01/2023 9:08 AM CDT Gender Identity Female 01/01/2023 9:08 AM CDT Sexual Orientation Straight 01/01/2023 9: 08 AM CDT documented as of this encounter Consult Notes * Froy Can M.A. - 01/02/2023 11:00 AM CDT SUBJECTIVE Consult conducted via real-time audio/video technology by Froy Can M.A. in [place], [place] at [facility] to the patient at home. CHIEF COMPLAINT [...] via video. and Patient was provided with [facility] educational materials electronically. . Patient is ready to learn, No apparant barriers to learning were identified. Patient understands and agrees with plan. 30 minutes of our visit was spent on tobacco use disorder counseling. Froy Can M.A. 01/02/2023 2:47 PM CDT documented in this encounter Plan of Treatment Upcoming Encounters Date Type Department Care Team (Latest Contact Info) Description 05/28/2023 3:30 PM PERFORMANCE REPORTER Clinical Communication Virtual Review in [place], [place] 200 [place] [address] 05/30/2023 2:30 PM PERFORMANCE REPORTER Comprehensive Visit Division of Pain Medicine in [place], [place] [address] [place] [phone] Gricel Lynch, FUR EXAMINER, C.N.P. [address] [place] [phone] 07/08/2023 12:15 PM CDT Appointment Division of Gastroenterology in [place], [place] [address] [place] [phone] Jose Roberto Patterson M.D. [address] [place] [phone] documented as of this encounter Visit Diagnoses Diagnosis Nicotine Dependence Cigarettes- Primary Pancreatitis Chronic (HCC) documented in this encounter Additional Health Concerns Assessment Noted Time PHQ-9 Depression Total Score: 21 012 10:33 AM PERFORMANCE REPORTER documented as of this encounter Care Teams Engineering Teacher Relationship Specialty Start Date End Date Elsewhere, Pcp PCP - General Internal Medicine 06/26/22 documented as of this encounter
--- OUTSIDE RECORDS SUMMARY | 2023-05-17 08:55 | XMS_ITS | Encounter Summary ---
Author Name Unknown Organization [facility] Address [address] [place] [phone] Care Team Providers Care Blueprint Tracer Name Role Phone Elsewhere, Pcp Primary Care Provider Unavailabl e Reason for Visit * Outpatient (Routine) - Closed Specialty Diagnoses / Procedures Referred By Contact Referred To Contact Gastroenterology and Hepatology Diagnoses Abdominal Pain Nausea And Vomiting Frequency Urinary Urgency Urinary Pancreatitis Chronic (HCC) Abnormal Findings On Diagnostic Imaging Of Other Abdominal Regions Including Retroperitoneum [facility] P.A.-C. [address] [place] [phone] [facility] Referral ID Status Reason Start Date Expiration Date Visits Re quested Visits Authorized [id number] Closed 10/19/2022 10/18/2025 1 1 Encounter Details Date Type Department Care Team (Latest Contact Info) Description 10/24/2022 8:20 AM CDT Internal E-Consult Division of Gastroenterology in [place], [place] [address] [place] [phone] Maria L Wilburn M.D. [address] [place] [phone] Abdominal Pain; Nausea And Vomiting; Frequency Urinary; [...] (Latest Contact Info) Description 05/28/2023 3:30 PM EDITOR MAP Clinical Communication Virtual Review in [place], [place] 200 [place] [address] 05/30/2023 2:30 PM EDITOR MAP Comprehensive Visit Division of Pain Medicine in [address] [phone] Gricel Lynch, CORRECTION OFFICER HEAD, C.N.P. [address] [place] [phone] 07/08/2023 12:15 PM CDT Appointment Division of Gastroenterology in [place], [place] [address] [place] [phone] Jose Roberto Patterson M.D. [address] [place] [phone] documented as of this encounter Visit Diagnoses Diagnosis Abdominal Pain Nausea And Vomiting Frequency Urinary Urgency Urinary Pancreatitis Chronic (HCC) Abnormal Findings On Diagnostic Imaging Of Other Abdominal Regions Including Retroperitoneum documented in this encounter Additional Health Concerns Assessment Noted Time PHQ-9 Depression Total Score: 21 012 10:33 AM EDITOR MAP documented as of this encounter Care Teams Blueprint Tracer Relationship Specialty Start Date End Date Elsewhere, Pcp PCP - General Internal Medicine 06/26/22 documented as of this encounter
--- OUTSIDE RECORDS SUMMARY | 2023-05-17 08:56 | XMS_ITS | Encounter Summary ---
Author Name Unknown Organization [facility] Address [address] [place] [address] Care Team Providers Care Veterinary Pathologist Name Role Phone Elsewhere, Pcp Primary Care Provider Unavailabl e Reason for Visit * Reason Comments Extremity Weakness Abdominal Pain * Auth/Cert (Routine) Specialty Diagnoses / Procedures Referred By Contac t Referred To Contact Diagnoses Weakness General Pain Left Upper Quadrant Procedures OBS Referral ID Status Reason Start Date Expiration Date Visits Re quested Visits Authorized [id number] 1 1 Encounter Details Date Type Department Care Team (Late st Contact Info) Description 10/23/2022 10:55 AM CDT - 10/24/2022 11:02 PM CDT Emergency , [facility], Second Floor [address] [phone] Rivera Brandt APRN, C.N.P., M.S.N. [address] [place] [phone] Faustina Scott M.D. [address] [place] [address] [phone] Weakness General (Primary Dx); Pain Left Upper [...] were not included. HOSPITAL DISCHARGE SUMMARY Hospital: [facility] Discharging provider: Fer Cardenas M.D. Primary Care [...] She had recently been evaluated in the [place] Emergency Department and had undergone evaluation for abdominal symptoms and was subseq uently discharged home. Since then, she had noticed increased weakness. Reported nausea. She was admitted to [facility] for hydration and pain control. [...] Neurologist for ongoing treatment of multiple sclerosis Plant Pathologist for ongoing treatment of recurrent pancreatitis Physical [...] Take 10 mg by mouth at bedtime. xtpnspinzdku-bsvidsqx-KQ-lutein 400-250 mcg per chewable tablet Commonly known [...] Neurologist for ongoing treatment of multiple sclerosis Plant Pathologist for ongoing treatment of recurrent pancreatitis DISCHARGE [...] branch pattern. Intracranial: Right P2 segment of ELECTRIC POWER LINE EXAMINER has multiple moderate grade stenoses (series 20 [...] normal distal ICA in accordance with [place] Symptomatic Carotid Endarterectomy Trial (NASCET). IMPRESSION: 1. [...] Units under the skin. 0 09/17/2022 02/19/2023 iofolbjqdoeb-ttidtrub-SQ -lutein (CENTRUM SILVER) 400-250 mcg per chewable [...] hours scheduled GI PPX:Pantoprazole Counseling was provided woqj-ts-wnpc at bedside regarding the plan of care . I personally spent 25 minutes in care of the patient today. Time includes both non face to face andface to face patient care. Patient indicated understanding and agreed with plan. Faustina Scott M.D. 31:29 PM CDT * Taya Bhakta L.S.W. - 10/24/2022 10:25 AM CDT SUBJECTIVE The doctor updated this Boat Hop that the patient has concerns about paying for her medications. This Boat Hop visited with the patient in person again. The patient explained that she does not have Medical Assistance. This Boat Hop provided the patient with a Certain Populations [...] home with her . She accepted a [employer] Medical Assistance application and a Good RX [...] from no value to Daily at bedtime. 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 donepeziL (ARICEPT) [...] Take 10 mg by mouth at bedtime. 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 Will send Glucerna [...] Calculations: 60 kg BMI (Calculated): 22.7 kg/m?? [place] Body Weight (Calculated) : 54.6 kg Weight [...] Onset Date: 10/23/22 Payor: [employer] / Plan: [facility] MEDICARE COMPLETE / Product Type: PPO / [...] Function/Occupational Profile: Prior Mobility/Functional Transfers Level of [place]: Independent Previous Transfer/Mobility Assistance Comments: She has [...] Activity Level: Answer: Up with Assistance 10/23/22 3547 OBJECTIVE Measures - Tools AM-PAC Activity: How [...] issue. 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 She is alsolooking into getting assistance with [...] into observation from the Emergency Department for [facility]. SOCIAL HISTORY Family / Household: The patient is to [place]. They have two daughters, Estrella and Xiomy. They have two grandchildren. The patient's daughter, Xiomy lives next door. Spirituality / Muslim / Culture: No History: No Employment: The [...] contact a private cleaning company or a curing oven attendant home care agency regarding cleaning assistance. [...] patient understands that she could arrange a curing oven attendant home care agency or a private cleaning company. The patient voiced a concern about paying privately for cleaning assistance. The patient was encouraged to talk to her family about cleaning assistance. Coping Skills/Strengths The patient has family support. ASSESSMENT / PLAN DISCUSSION This Boat Hop talked to the patient about discharge planning. She stated that her goal is to return home and her family could provide transportation. The patient inquired about cleaning assistance. She understands that she could arrange a curing oven attendant home care agency or a private cleaning company and pay privately. The patient was also encouraged to talk to her family about assisting with cleaning. IMPRESSION The patient is an 67 year old woman who is in observation for [facility]. She made eye contact, was alert, [...] she is on the mend. Patient put electronic science teacher light and asked floor charge nurse to [...] wants to go home. Patient communicated with electronic science teacher chemical processing supervisor (Dr. Cardenas). Primary RN went into room to implement chemical processing supervisor's recommendations and patient still continues to state [...] loss. Patient had BM this morning with EARLY CHILDHOOD COORDINATOR. When nurse asked if she had [...] Saturday. Shewas seen in the ED in [place] and had abdominal workup done and subsequently [...] flare-up. Plan: After discussion with neuro in [place], plan for admission for hydration and pain [...] Present in Two Limbs 8. Sensory Loss: Mlli-ea-Ddmjhqkb Sensory Loss 9. Best Language: No Aphasia 10. Dysarthria: Mcyi-tq-Jbpctzkb Dysarthria 11. Extinction and Inattention: No Abnormality NIH Stroke Scale: 4 ED Course as of 10/23/22 1308 Tue Oct 23, 2022 1236 Reach out to [facility] for neuro consult. Awaiting return call. [...] slurred according to the Pt was at [facility] on Saturday, but they stated nothing was done Izzy Santiago R.N. 10/23/22 1101 Izzy Santiago R.N. 10/23/22 1102 documented in this encounter Plan of Treatment Upcoming Encounters Date Type Department Care Team (Latest Contact Info) Description 05/28/2023 3:30 PM CLOTH PRESSER Clinical Communication Virtual Review in [place], [place] [address] [place] [address] 05/30/2023 2:30 PM CLOTH PRESSER Comprehensive Visit Division of Pain Medicine in [address] [phone] Gricel Lynch APRN, Mona.N.PCarlos [address] [place] [phone] 07/08/2023 12:15 PM CDT Appointment Division of Gastroenterology in [address] [phone] Jose Roberto Patterson M.D. [address] [place] [phone] documented as of this encounter Procedures Procedure [...] Rals LAB POCT ORDERABLES- MANUAL [facility] [address] [place] [phone], [place] [facility] in [address] [address] * (ABNORMAL) Glucose, POCT (10/24/2022 4:47 PM CDT) Glucose, POCT, B 303(H) 70 - 140 mg/dL 10/24/2022 4:47 PM CDT CNFL Blood 10/24/2022 4:47 PM CDT 10/24/2022 5:00 PM CDT Generic Rals LAB POCT ORDERABLES- MANUAL [address] [address], [facility] in [address] [address] * (ABNORMAL) Glucose, POCT (10/24/2022 11:22 AM CDT) Glucose, POCT, B 282(H) 70 - 140 mg/dL 10/24/2022 11:22 AM CDT FL Blood 10/24/2022 11:2 2 AM CDT 10/24/2022 11:29 AM CDT Generic Rals LAB POCT ORDERABLES- MANUAL [address] [address], [facility] in [address] [address] * (ABNORMAL) Glucose, POCT (10/24/2022 7:45 AM CDT) Glucose, POCT, B 184(H) 70 - 140 mg/dL 10/24/2022 7:45 AM CDT FL Blood 10/24/2022 7:45 AM CDT 10/24/2022 7:54 AM CDT Generic Rals LAB POCT ORDERABLES- MANUAL [address] [address], [facility] in [address] [address] * (ABNORMAL) CBC with Differential, Blood (10/24/2022 7:18 AM CDT) Hemoglobin 13.5 11.6 - 15.0 g/dL 10/24/2022 [...] CDT Faustina Scott M.D. LAB BLOOD ADD-ON [facility] [address] [place] [address], [facility] in [address] [address] * (ABNORMAL) Basic Metabolic Panel (10/24/2022 7:18 [...] CDT Faustina Scott M.D. LAB BLOOD ADD-ON [facility] [address] [place] [phone], [facility] CNFL in [address] [address] * (ABNORMAL) Glucose, POCT (10/23/2022 8:18 PM CDT) Glucose, POCT, B 258(H) 70 - 140 mg/dL 10/23/2022 8:18 PM CDT CNFL Blood 10/23/2022 8:18 PM CDT 10/23/2022 8:26 PM CDT Generic Rals LAB POCT ORDERABLES- MANUAL [address] [address], [facility] in [address] [address] * (ABNORMAL) Glucose, POCT (10/23/2022 6:21 PM CDT) Glucose, POCT, B 144(H) 70 - 140 mg/dL 10/23/2022 6:21 PM CDT CNFL Blood 10/23/2022 6:21 PM CDT 10/23/2022 6:28 PM CDT Generic [facility] LAB POCT ORDERABLES- MANUAL [address] [address], [facility] in [address] [address] * (ABNORMAL) Glucose, POCT (10/23/2022 4:45 PM CDT) Glucose, POCT, B 185(H) 70 - 140 mg/dL 10/23/2022 4:45 PM CDT FL Blood 10/23/2022 4:45 PM CDT 10/23/2022 4:52 PM CDT Generic Rals LAB POCT ORDERABLES- MANUAL [address] [address], [facility] in [address] [address] * (ABNORMAL) Glucose, POCT (10/23/2022 3:11 PM CDT) Glucose, POCT, B 242(H) 70 - 140 mg/dL 10/23/2022 3:11 PM CDT CNFL Blood 10/23/2022 3:11 PM CDT 10/23/2022 3:18 PM CDT Generic Rals LAB POCT ORDERABLES- MANUAL Performing Organization Address City/[facility] de Phone Number [facility] [address] [place] [address], [facility] [place] [place] [address] * (ABNORMAL) Bacterial Culture, Aerobic + Susceptibility, Urine (10/23/2022 1:07 PM CDT) [facility] [address] Urine Culture Mixed microbiota (A) 10/24/2022 4:07 PM CDT ECLR Urine (Urine, Midstream) 10/23/2022 1:07 PM CDT 10/23/2022 8:45 PM CDT Comment:Specimen Source Site : Urine Mona Voss APRN.N.P., M.S.N. LAB MICR OBIOLOGY - GENERAL ORDERABLES Performing Organization Address City/[facility] Co de Phone Number [facility] [address] [place] [address], [facility] [place] [address] * (ABNORMAL) Urinalysis with Microscopic: Urine, Midstream [...] 8.0 10/23/2022 1:10 PM CDT CNFL Specific [place] 1.010 1.001 - 1.035 10/23/2022 1:10 PM [...] APRN C.N.P., M.S.N. LAB URIN E ORDERABLES Performing Organization Address [facility]/State/[facility] Co de Phone Number [facility] [address] [place] [address], [facility] CNFL in [address] [address] * US Gallbladder and or Biliary Ducts [...] ductal stones as noted onprior axial imaging. Stafford Patience Brandt APRN, C.N.P., M.S.N. IMG US P [...] and Neck, Neuroradiolog y RST LOS, [facility]iology [facility], [facility] N/A Computed Tomography 10/23/2022 12:1 5 PM [...] branch pattern. Intracranial: Right P2 segment of ELECTRIC POWER LINE EXAMINER has multiple moderate grade stenoses (series 20 [...] normal distal ICA in accordance with [place] Symptomatic Carotid Endarterectomy Trial (NASCET). Procedure Note [...] branch pattern. Intracranial: Right P2 segment of ELECTRIC POWER LINE EXAMINER has multiple moderate grade stenoses(series 20 images [...] the normal distalICA in accordance with [place] Symptomatic Carotid Endarterectomy Trial (NASCET). IMPRESSION: 1. Bilateral P2 segments have moderate grade stenoses. 2. Arteries of head and neck otherwise have atheroscleroticcalcifications without additional significant stenosis. 3. Negative for acute infarct by CT. 4. Known multiple sclerosis. 5. Multiple pulmonary groundglass opacities are suspicious forinfection. Rivera Brandt APRN, C.N.P., M.S.N. IMG CT P ROCEDURES * Lactate, POCT (10/23/2022 11:50 AM CDT) [facility] [address] Lactate, POCT 0.72 0.50 - 2.20 mmol/L 10/23/2022 11:50 AM CDT FL Blood 10/23/2022 11:5 0 AM CDT 10/23/2022 11:56 AM CDT Generic Rals LAB POCT ORDERABLES - DEVICE Performing Organization Address City/[facility]/[place] [address], [address] [address] * CRP (C-Reactive Protein) (10/23/2022 11:43 AM CDT) [facility] [address] C-Reactive Protein (CRP), P 3.3 <5.0 mg/L 10/23/2022 4:27 PM CDT [facility] Blood (Blood, Venous) 10/23/2022 11:43 AM CDT 10/23/2022 11:44 AM CDT Mona Voss APRN.N.P., M.S.N. LAB BLOO D ADD-ON [address] [address], [facility] in [address] [address] * Hepatic Function Panel (10/23/2022 11:43 AM [...] Voss APRN.N.Santi., M.S.N. LAB BLOO D ADD-ON [facility] [address] [place] [address], [facility] [place] [address] * (ABNORMAL) Lipase (10/23/2022 11:43 AM CDT) Lipase, P 63(H) 13 - 60 U/L 10/23/2022 4: 27 PM CDT CNFL Blood (Blood, Venous) 10/23/2022 11:43 AM CDT 10/23/2022 11:44 AM CDT Sandra Voss APRNNAbner, M.S.N. LAB BLOO D ADD-ON [facility] [address] [place] [address], [place] [facility] in [address] [address] * (ABNORMAL) BMP with Hgb/Hct, POCT (10/23/2022 [...] CNFL Comment:Result canceled by t he ancillary. Glucose, POCT, B 322(H) 70 - [...] CNFL Comment:Result canceled by t he ancillary. Hematocrit, POCT, B CANCELED % 10/23/2022 12:24 PM CDT CNFL Comment:Result canceled by t he ancillary. Blood (Blood, Venous) 10/23/2022 11:42 AM CDT 10/23/2022 11:44 AM CDT Rivera Brandt APRN, C.N.P., M.S.N. LAB POCT ORDERABLES - DEVICE [facility] [address] [place] [address], [facility] [place] [place] [address] * (ABNORMAL) CBC with Differential, Blood (10/23/2022 [...] APRN, C.N.P., M.S.N. LAB BLOO D ADD-ON [facility] [address] [place] [address], [facility] CNFL in [address] [address] documented in this encounter Visit Diagnoses Diagnosis [...] Given 10/23/2022 8:40 PM CDT 10 mg eccpcefuqfpv-obup-IQ-Ca-mineral s 400 mcg (folic acid) tablet 1 tablet (THERAPEUTIC-M) 1 tablet, oral, Daily, First dose on Sat10/24/22 at 0900 Given 10/24/2022 9:56 AM CDT 1 tablet NaCl 0.9 % bolus 1,000 mL 1,000 mL, intravenous, at 1,000 mL/hr, Administer over 1 Hours, Once, On Sat10/23/22 at 1121, For 1 dose New Bag 10/23/2022 11:47 AM CDT 1,000 mL 1000 mL/hr NaCl 0.9% infusion 50 mL/hr, intravenous, Continuous, Starting on Sat10/23/22 at 1515 New Bag 10/24/2022 9:31 PM CDT 50 mL/hr 50 [...] instructions. 2038 (Given - Provider: Mariela Arguello, R.NCarlos) [...] dose 1146 (Given - Provider: Izzy Santiago R.N.) fentaNYL injection 25 mcg (SUBLIMAZE) 25 mcg, intravenous, Once, On Sat10/23/22 at 1221, For 1 dose 1308 (Not Given - Provider: Izzy Santiago R.N. - Reason: Patient not available) gabapentin capsule 300 mg (NEURONTIN) 300 mg, oral, 2 times daily, First dose on Sat10/23/22 at 2100 2040 (Given - Provider: Mariela Arguello, R.NCarlos) 0956 (Given - Provider: Ryoa Nicholson R.N.)2040 (Given - Provider: Erin Grove [...] Provider: Roya Nicholson R.N.)1208 (Given - Provider: Roay Nicholson R.N.)1755 (Given - Provider: Roya Nicholson [...] 2040 (Given - Provider: Erin Grove R.N.) adieiqkphyjj-dnnu-IO-Ca-mine rals 400 mcg (folic acid) tablet 1 [...] 2100 2038 (Given - Provider: Mariela Arguello, RCarlosNCarlos) 2040 (Given - Provider: Erin Grove R.N.) sodium chloride 0.9 % injection 3 mL 3 mL, intravenous, Every 12 hours scheduled, First dose on Sat10/23/22 at 2100, Peripheral Intravenous Catheter and Rapid Infusion Catheter, when no infusion to maintain patency 2053 (Not Given - Provider: Mariela Arguello, [place] - Reason: Order parameters not met) 09 (Given - Provider: Roya Nicholson R.N.)2043 (Not [...] bag)2326 (New Bag - Provider: Mariela Arguello, R.NCarlos) 0723 (Rate/Dose Verify - Provider: Roya Nicholson [...] Christensen R.N.) 0112 (Given - Provider: Yury ArguelloS.N., R.N.)0623 (Given - Provider: Kira Zamarripa M.S.NCarlos, R.N.)1350 (See Alternative - Provider: Roya Nicholson R.N.)212 (See Alternative - Provider: Erin Grove RCarlosN.) oxyCODONE IR tablet 5 mg (ROXICODONE)(Linked Group 1) 5 mg, oral, Every 4 hours PRN, moderate pain or score 4-6 of 10, Starting on Sat10/23/22 at 1450 1601 (See Alternative - Provider: Lulú Christensen R.N.) 0112 (See Alternative - Provider: Yury ArguelloSCarlosNCarlos, R.N.)0623 (See Alternative - Provider: Mariela Arguello, R.N.)1350 (Given - Provider: Roya Nicholson R.N.)2129 [...] Noted Time PHQ-9 Depression Total Score: 21 03/02/2 012 10:33 AM CLOTH PRESSER documented as of this encounter Care Teams Veterinary Pathologist Relationship Specialty Start Date End Date Elsewhere, Pcp PCP - General Internal Medicine 06/26/22 documented as of this encounter
--- OUTSIDE RECORDS SUMMARY | 2023-05-17 08:56 | XMS_ITS | Encounter Summary ---
Author Name Unknown Organization [facility] Address [address] [place] [address] Care Team Providers Care Bilingual Teacher Name Role Phone Elsewhere, Pcp Primary Care Provider Unavailabl e Reason for Visit * Reason Comments Abdominal Pain * Auth/Cert (Routine) Specialty Diagnoses / Procedures Referred By Contac t Referred To Contact Diagnoses Pancreatitis Acute (HCC) Pancreatitis Chronic Recurrent (HCC) Abdominal Pain Procedures OBS Referral ID Status Reason Start Date Expiration Date Visits Re quested Visits Authorized [id number] 1 1 Encounter Details Date Type Department Care Team (Late st Contact Info) Description 09/06/2022 12:12 PM CDT - 09/08/2022 11:39 AM CDT Emergency [facility], [facility], Second Floor [address] [place] [phone] Madhav Basurto APRN, C.N.P., D.N.P. [address] [place] [address] Lincoln Branch M.D. [address] [place] [phone] Pancreatitis Acute (HCC) (Primary Dx); Pancreatitis [...] diet. Let your doctor or registered dietitian public works manager (RDN) know if you lose weight while [...] Whitfield Lead Dietitian Clinical Nutrition Office Email: [email or web address] [place] [address] * Attachments The following attachments cannot be sent through Care Everywhere. * Pancreatitis (Armenian) documented in this encounter Medications at Time [...] loss is apparent and oral intake poor GUARDIAN AD LITEM due to pain. BGs found critically high [...] 58 kg Usual Body Weight: 75 kg Ames Body Weight (Calculated) : 54.6 kg Adjusted [...] QI(U) Negative Bilirubin Negative pH 6.0 Specific Sedgwick 1.010 Urobilinogen 0.2 Glucose, POCT Collection Time: [...] (ROXICODONE) Stopped Accu-Chek Guide Me Glucose [facility] Accu-Chek Guide test strips DULoxetine (CYMBALTA) 30 [...] Near baseline #4 Diabetes Mellitus Type 2 ([facility]) Plan for glycemic monitoring and insulin sliding [...] right upper quadrant. 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 Hamilton hospitalist in [place], he does accept the patient. I believe [...] Prescriptions None FOLLOW UP Madhav Basurto, ARIANE, PLYWOOD FACTORY WORKER, DIRECTOR COMMUNITY ORGANIZATION-C, AGACNP-BC, ENP-C Emergency Medicine Madhav Basurto APRN, [...] (Latest Contact Info) Description 05/28/2023 3:30 PM IMAGE ARCHIVIST Clinical Communication Virtual Review in [place], [place] [address] [place] [address] 05/30/2023 2:30 PM IMAGE ARCHIVIST Comprehensive Visit Division of Pain Medicine in [address] [phone] Gricel Lynch APRN, C.N.P. [address] [place] [phone] 07/08/2023 12:15 PM CDT Appointment Division of Gastroenterology in [place], [place] [address] [place] [address] Jose Roberto Patterson M.D. [address] [place] [address] documented as of this encounter Procedures Procedure [...] (ABNORMAL) Glucose, POCT (09/08/2022 7:42 AM CDT) [facility] Glucose, POCT, B 303(H) 70 - 140 mg/dL 09/08/2022 7:42 AM CDT CNFL Blood 09/08/2022 7:42 AM CDT 09/08/2022 7:58 AM CDT Generic [facility] POCT ORDERABLES- MANUAL [address] [address], [facility] in [address] [address] * (ABNORMAL) Glucose, POCT (09/08/2022 2:01 AM CDT) Glucose, POCT, B 226(H) 70 - 140 mg/dL 09/08/2022 2:01 AM CDT CNFL Blood 09/08/2022 2:01 AM CDT 09/08/2022 2:08 AM CDT Generic [facility] POCT ORDERABLES- MANUAL [address] [address], [facility] in [address] [address] * (ABNORMAL) Glucose, POCT (09/07/2022 9:24 PM CDT) Glucose, POCT, B 313(H) 70 - 140 mg/dL 09/07/2022 9:24 PM CDT CNFL Blood 09/07/2022 9:24 PM CDT 09/07/2022 9:48 PM CDT Generic [facility] POCT ORDERABLES- MANUAL [address] [address], [facility] in [address] [address] * (ABNORMAL) Glucose, POCT (09/07/2022 8:23 PM CDT) Glucose, POCT, B 287(H) 70 - 140 mg/dL 09/07/2022 8:23 PM CDT CNFL Blood 09/07/2022 8:23 PM CDT 09/07/2022 8:43 PM CDT Generic [facility] POCT ORDERABLES- MANUAL [address] [address], [address] [address] * (ABNORMAL) Glucose, POCT (09/07/2022 4:46 PM CDT) Glucose, POCT, B 175(H) 70 - 140 mg/dL 09/07/2022 4:46 PM CDT [facility] Blood 09/07/2022 4:46 PM CDT 09/07/2022 5:01 PM CDT Generic [facility] POCT ORDERABLES- MANUAL Performing Organization Address [facility] Co de Phone Number [address] [address], [address] [address] * (ABNORMAL) Glucose, POCT (09/07/2022 11:33 AM CDT) Glucose, POCT, B 229(H) 70 - 140 mg/dL 09/07/2022 11:33 AM CDT CNFL Blood 09/07/2022 11:3 3 AM CDT 09/07/2022 11:43 AM CDT Generic [facility] POCT ORDERABLES- MANUAL [address] [place] [address], [facility] in [address] [address] * (ABNORMAL) Glucose, POCT (09/07/2022 7:57 AM CDT) Glucose, POCT, B 311(H) 70 - 140 mg/dL 09/07/2022 7:57 AM CDT CNFL Blood 09/07/2022 7:57 AM CDT 09/07/2022 8:07 AM CDT Generic [facility] POCT ORDERABLES- MANUAL [facility] [address] [place] [address], [facility] in [address] [address] * (ABNORMAL) Magnesium (09/07/2022 6:54 AM CDT) Magnesium, P 1.5(L) 1.7 - 2.3 mg/dL 09/07/2022 8:10 AM CDT [facility] Blood (Blood, Venous) 09/07/2022 6:54 AM CDT 09/07/2022 7:06 AM CDT Lincoln Branch M.D. LAB BLOOD ADD-ON [facility] [address] [place] [address], [facility] in [address] [address] * (ABNORMAL) Comprehensive Metabolic Panel (09/07/2022 6:54 [...] CDT Lincoln Branch M.D. LAB BLOOD ADD-ON [facility] [id number] [place] [address], [facility] CNFL [facility] in [address] [address] * (ABNORMAL) CBC with Differential, Blood (09/07/2022 [...] CDT Lincoln Branch M.D. LAB BLOOD ADD-ON [facility] [address] [place] [address], [address] [address] * Lipase (09/07/2022 6:54 AM CDT) Lipase, P 38 13 - 60 U/L 09/07/2022 8: 10 AM CDT CNFL Blood (Blood, Venous) 09/07/2022 6:54 AM CDT 09/07/2022 7:06 AM CDT Lincoln Branch M.D. LAB BLOOD ADD-ON [address] [address], [address] [address] * Glucose, POCT (09/06/2022 8:23 PM CDT) Glucose, POCT, B 125 70 - 140 mg/dL 09/06/2022 8:23 PM CDT [facility] Blood 09/06/2022 8:23 PM CDT 09/06/2022 8:31 PM CDT Generic [facility] POCT ORDERABLES- MANUAL [address] [address], [facility] in [address] [address] * (ABNORMAL) Glucose, POCT (09/06/2022 4:51 PM CDT) Glucose, POCT, B 319(H) 70 - 140 mg/dL 09/06/2022 4:51 PM CDT [facility] Blood 09/06/2022 4:51 PM CDT 09/06/2022 5:04 PM CDT Generic [facility] POCT ORDERABLES- MANUAL [facility] [address] [place] [address], [facility] in [address] [address] * (ABNORMAL) Glucose, POCT (09/06/2022 3:41 PM CDT) Glucose, POCT, B 297(H) 70 - 140 mg/dL 09/06/2022 3:41 PM CDT CNFL Blood 09/06/2022 3:41 PM CDT 09/06/2022 3:48 PM CDT Generic [facility] POCT ORDERABLES- MANUAL [facility] [address] [place] [address], [address] [address] * Lactate (09/06/2022 3:15 PM CDT) Lactate, P 1.9 0.5 - 2.2 mmol/L 09/06/2022 3:42 PM CDT [place] Blood (Blood, Venous) 09/06/2022 3:15 PM CDT 09/06/2022 3:17 PM CDT Madhav Basurto APRN C.N.P., D.N.P. LAB BLOOD NON ADD-ON [facility] [address] [place] [address], [address] [address] * (ABNORMAL) Glucose, POCT (09/06/2022 2:58 PM CDT) Glucose, POCT, B 329(H) 70 - 140 mg/dL 09/06/2022 2:58 PM CDT CNFL Blood 09/06/2022 2:58 PM CDT 09/06/2022 3:05 PM CDT Generic [facility] POCT ORDERABLES- MANUAL Performing Organization Address City/State/[facility] Co de Phone Number [facility] [address] [place] [address], [facility] CNFL [facility] in [address] [address] * CT Abdomen Pelvis with IV Contrast [...] 8.0 09/06/2022 1:36 PM CDT CNFL Specific [place]gwick 1.010 1.001 - 1.035 09/06/2022 1:36 PM CDT CNFL Urobilinogen 0.2 0.2 - 1.0 mg/dL 09/06/2022 1:36 PM CDT CNFL Urine (Urine, Midstream) 09/06/2022 1:24 PM CDT 09/06/2022 1:33 PM CDT Mona Tan APRN.N.P., D.N.P. LAB URINE ORDERABLES [facility] [address] [place] [address], [facility] CNFL [place] [address] * VBG (Venous Blood Gas), POCT (09/06/2022 [...] POCT ORDERABLES - DEVICE Performing Organization Address [facility] Co de Phone Number [facility] [address] [place] [address], [place] [address] * Blood Gas, POCT - Venous (09/06/2022 1:11 PM CDT) Blood Gas, POCT, B Collected DEFAULT 09/06/2022 1:14 PM CDT CNFL Blood (Other, Specify in Comments) 09/06/2022 1:11 PM CDT 09/06/2022 1:14 PM CDT Sandra Tan APRNN.P., D.N.P. LAB POCT ORDERABLES - DEVICE Performing Organization Address [facility] [place] [address], [place] [address] * Beta-hydroxybutyrate, Point of Care Testing, Blood (09/06/2022 1:11 PM CDT) Beta-hydroxybut yrate, POCT, B 0.1 0.0 - 0.5 mmol/L 09/06/2022 1:16 PM CDT CNFL Blood (Blood, Venous) 09/06/2022 1:11 PM CDT 09/06/2022 1:14 PM CDT Sandra Tan APRNNCarlosP., D.N.P. LAB BLOOD NON ADD-ON [address] [address], [address] [address] * (ABNORMAL) CRP (C-Reactive Protein) (09/06/2022 12:31 PM CDT) C-Reactive Protein (CRP), P 11.2(H) <5.0 mg/L 09/06/2022 12:53 PM CDT CNFL Blood (Blood, Venous) 09/06/2022 12:31 PM CDT 09/06/2022 12:34 PM CDT Sandra Tan APRNNCarlosP., D.N.P. LAB BLOOD ADD-ON [address] [address], [facility] in [address] [address] * (ABNORMAL) Lactate (09/06/2022 12:31 PM CDT) Lactate, P 4.1(H) 0.5 - 2.2 mmol/L 09/06/2022 12:51 PM CDT CNFL Blood (Blood, Venous) 09/06/2022 12:31 PM CDT 09/06/2022 12:34 PM CDT Mona Tan APRN.N.P., D.N.P. LAB BLOOD NON ADD-ON [address] [address], [place] [facility] in [address] [address] * Lipase (09/06/2022 12:31 PM CDT) Lipase, P 57 13 - 60 U/L 09/06/2022 12:53 PM CDT CNFL Blood (Blood, Venous) 09/06/2022 12:31 PM CDT 09/06/2022 12:34 PM CDT Mona Tan APRN.N.P., D.N.P. LAB BLOOD ADD-ON [facility] [address] [place] [address], [facility] CNFL [facility] in [address] [address] * (ABNORMAL) Comprehensive Metabolic Panel (09/06/2022 12:31 [...] Basurto APRN, C.N.P., D.N.P. LAB BLOOD ADD-ON [facility] [address] [place] [address], [facility] [place] [address] * (ABNORMAL) CBC with Differential, Blood (09/06/2022 [...] D.N.P. LAB BLOOD ADD-ON Performing Organization Address [facility]/State/[facility] Co de Phone Number [facility] [address] [place] [address], [facility] in [address] [address] documented in this encounter Visit Diagnoses Diagnosis [...] oral, 2 times daily, First dose on Duyen 09/06/22 at 2100, [...] mcg (SUBLIMAZE) 50 mcg, intravenous, Once, On Duyen 09/06/22 at 1317, For 1 dose Given 09/06/2022 1:25 PM CDT 50 mcg hydrALAZINE injection 10 mg (APRESOLINE) 10 mg, intravenous, Every 6 hours PRN, high blood pressure, bp > 180 x 2, 20 minutes apart, Starting on Sat09/06/22 at 2309, Systolic BP >180 for 2 consecutive readings, 20 minutes apart HYDROmorphone injection 1 mg (DILAUDID) 1 mg, intravenous, Once, On Duyen 09/06/22 at 1435, For 1 dose Given 09/06/2022 [...] Sat09/06/22 at 1311, For 1 dose New 09/06/2022 2:02 PM CDT 1,000 mL 1000 [...] last modification) on Duyen 09/06/22 at 2100 Given 09/07/2022 9:07 PM CDT 400 mg Given 09/06/2022 9:19 PM CDT 400 mg sodium chloride 0.9 % injection 10 mL 10 mL, intravenous, Once, On Duyen 09/06/22 at 1321, For 1 dose Given 09/06/2022 1:55 PM CDT 10 mL documented in this encounter Active and Recently Administered Medications Times are shown in CDT. Scheduled Medication Order 09/06/2022 09/07/2022 09/08/2022 amLODIPine tablet 5 mg (NORVASC) 5 mg, oral, Daily, First dose on Sat09/07/22 at 0900 0853 (Given - Provider: Diane Baker R.N.) 0855 (Given - Provider: Diane Baker R.N.) bisacodyL DR tablet 10 mg (DULCOLAX) (CANCELED) [...] 1730 1724 (Given - Provider: Roya Nicholson R.N.) 0856 [...] 2106 (Given - Provider: Aileen Zambrano R.N.) fentaNYL injection 50 mcg (SUBLIMAZE) (COMPLETED) [...] Insulin orders 1711 (Given - Provider: Roya Nicohlson R.N.) 0859 (Given - Provider: Diane Baker R.N.)1227 (Given - Provider: Eladio HuN.)1735 (Given - Provider: Eladio HuN.) 0900 (Given - Provider: Eladio HuN.) insulin aspart U-100 injection 0-7 Units (NovoLOG [...] 2107 (Given - Provider: Aileen Zambrano R.N.) magnesium sulfate in water IVPB 2 g [...] - Provider: Lincoln Branch M.D. - Comment: [phone])2099 (Not Given - Provider: Kira A Biwer, M.S.N., R.N. - Reason: See Provider Order) [...] 1356 (New Bag - Provider: Ansley Jason R.T.(R)(CT), R.T.(R))1615 (Stopped - Provider: Roya Nicholson [...] prevent moisture contact. 2118 (Given - Provider: Kira Zamarripa M.S.N., R.N.) 0853 (Given - Provider: Diane Baker, R.N.)2107 (Given - Provider: Aileen Zambrano R.N.) [...] at 2100 2118 (Given - Provider: Yury ArguelloS.N., R.N.) 2106 (Given - Provider: Aileen Zambrano R.N.) sodium chloride 0.9 % injection 10 mL (COMPLETED) 10 mL, intravenous, Once, On Duyen 09/06/22 at 1321, For 1 dose 1355 (Given - Provider: Dany Mandujano(R)(CT), Dany(R)) Continuous Medication Order 09/06/2022 09/07/2022 09/08/2022 [...] - Provider: Diane Baker R.N. - Comment: [id number] (Rate/Dose Verify - Provider: Aileen Zambrano R.N.) 0147 (Rate/Dose Verify - Provider: Aileen Zambrano R.N.)0204 (New Bag - Provider: Aileen Zambrano R.N.)0627 (Rate/Dose Verify - Provider: Aileen Zambrano R.N.)0712 (Handoff - Provider: Aileen Zambrano R.N. - Comment: [id number] (Rate/Dose Change - Provider: Diane Baker R.N.)1057 [...] times daily PRN, muscle spasms, Starting on Duyen 09/06/22 at 1629 hydrALAZINE injection 10 mg [...] dose 1356 (Given - Provider: Dany Mandujano(R)(CT), R.T.(R) - Comment: [id number]) oxyCODONE IR tablet 10 mg (ROXICODONE)(Linked Group 1) 10 mg, oral, Every 4 hours PRN, severe pain or score 7-10 of 10, Starting on Duyen 09/06/22 at 1859 1630 (See Alternative - Provider: Brando Davila R.N.)2058 (See Alternative - Provider: Jusitne Curtis R.N.) 0914 (See Alternative - Provider: [...] Depression Total Score: 21 012 10:33 AM IMAGE ARCHIVIST documented as of this encounter Care Teams Bilingual Teacher Relationship Specialty Start Date End Date Elsewhere, Pcp PCP - General Internal Medicine 06/26/22 documented as of this encounter
--- OUTSIDE RECORDS SUMMARY | 2023-05-17 08:56 | XMS_ITS | Encounter Summary ---
Author Name Unknown Organization [facility] Address [address] [place] [address] Care Team Providers Care Bull Driver Name Role Phone Elsewhere, Pcp Primary Care Provider Unavailabl e Reason for Referral * Outpatient (Routine) - Closed Specialty Diagnoses / Procedures Referred By Contact Referred To Contact Gastroenterology and Hepatology Diagnoses Abdominal Pain Nausea And Vomiting Frequency Urinary Urgency Urinary Pancreatitis Chronic (HCC) Abnormal Findings On Diagnostic Imaging Of Other Abdominal Regions Including Retroperitoneum Jackson Wren P.A.-C. [address] [place] [phone] [facility] Referral ID Status Reason Start Date Expiration Date Visits Re quested Visits Authorized [id number] Closed 10/19/2022 10/18/2025 1 1 Reason for Visit * Reason Comments Abdominal Pain Encounter Details Date Type Department Care Team (Late st Contact Info) Description 10/19/2022 2:48 PM CDT - 10/19/2022 7:19 PM CDT Emergency [facility] [address] [place] [phone] Jackson Wren P.A.-C. [address] [place] [phone] Abdominal Pain (Primary Dx); Nausea And Vomiting; [...] were examined and treated today in the [facility] Emergency Department (ED) on an emergency basis. [...] sent through Care Everywhere. * Chronic Pancreatitis ([place]) * Abdominal Pain Adult [id number] ([place]) documented in this encounter Medications at Time [...] no mass, no Marx-Rome's sign and no [place]'s sign. There is abdominal tenderness in the left upper quadrant. There is no rigidity, no rebound, no guarding, no CVA tenderness, no tenderness at McBurney's point, negative Galvan's sign, no [place] sign and no Rovsing's sign. No hernia. [...] 2:51 PM CDT Patient presents from the [facility] for concerns of pancreatitis. Patient has [...] 10/10. Nakita De Los Santos R.N. 10/19/22 1451 documented in this encounter Plan of Treatment Upcoming Encounters Date Type Department Care Team (Latest Contact Info) Description 05/28/2023 3:30 PM UTILITY SYSTEM OPERATOR Clinical Communication Virtual Review in [place], [place] [address] [place] [address] 05/30/2023 2:30 PM UTILITY SYSTEM OPERATOR Comprehensive Visit Division of Pain Medicine in [place], [place] [address] [place] [phone] Gricel Lynch APRN, C.N.P. [address] [place] [address] 07/08/2023 12:15 PM CDT Appointment Division of Gastroenterology in [place], [place] [address] [place] [address] Jose Roberto Patterson M.D. [address] [place] [address] Scheduled Referrals Name Type Priority Associated Diagnoses [...] Mago Potter M.D. LAB URINE ORDERABL ES [facility] [address] [place] [address], [facility] [address] [place] [address] * Osmolality, Urine (10/19/2022 5:30 PM CDT) Osmolality, U 597 150 - 1150 mOsm/kg 10/19/2022 7:05 PM CDT DTL Urine 10/19/2022 5:30 PM CDT 10/19/2022 5:50 PM CDT Mago CottonD. LAB URINE ORDERABL ES Performing Organization Address City/[facility] Co de Phone Number [facility] [address] 200 [place] [address] * pH, Random, Urine (10/19/2022 5:30 PM CDT) pH, Random, U 5.5 4.5 - 8.0 10/19/2022 7:05 PM CDT DTL Urine 10/19/2022 5:30 PM CDT 10/19/2022 5:50 PM CDT Mago Potter M.D. LAB URINE ORDERABL ES Performing Organization Address [facility] Co de Phone Number [facility] [address] 200 [place] [address] * Microscopic Manual (10/19/2022 5:30 PM CDT) [...] LAB URINE ORDERABL ES Performing Organization Address [facility] Co de Phone Number [facility] [address] [place] [address] * Bacterial Culture, Aerobic + Susceptibility, Urine (10/19/2022 5:30 PM CDT) Urine Culture No growth after 1 day of incubation. 10/21/2022 7:18 AM CDT DTL Urine (Urine, Midstream) 10/19/2022 5:30 PM CDT 10/19/2022 9:07 PM CDT Comment:Specimen Source Site : Urine Jackson Wren P.A.-C. LAB MICROBIOLOGY - GENERAL ORDERABLES Performing Organization Address City/[facility]/ZIP Co de Phone Number [facility] 200 [place] [address], [facility] DTL [facility] 200 [place] [address] * (ABNORMAL) Urinalysis with Microscopic: Urine, Midstream (10/19/2022 5:30 PM CDT) Source Urine, Urine, Midstream 10/19/2022 5:50 PM CDT DTL Color, U [place](A) 10/19/2022 5:50 PM CDT DTL Clarity, U [...] LAB URINE ORDERA BLES Performing Organization Address City/[facility]/ZIP Co de Phone Number [facility] 200 [place] [address], [facility] DTL [facility] 200 [place] [address] * CT Abdomen Pelvis with IV Contrast [...] Casillas APRN.N.P., Fiona.N.P., M.S.N. LAB BLOOD ADD-ON [facility] [address] [place] [address], [facility] [address] [place] [address] * Lactate (10/19/2022 3:17 PM CDT) [facility] Lactate, P 0.8 0.5 - 2.2 mmol/L 10/19/2022 3:38 PM CDT [facility] Blood (Blood, Venous) 10/19/2022 3:17 PM CDT 10/19/2022 3:24 PM CDT Jackson Wren P.A.-C. LAB BLOOD NON AD D-ON [facility] [address] [place] [address], [facility] STMA [facility] [address] [place] [address] * (ABNORMAL) CBC with Differential, Blood (10/19/2022 3:17 PM CDT) [facility] Hemoglobin 12.8 11.6 - 15.0 g/dL 10/19/2022 [...] P.A.-C. LAB BLOOD ADD-ON Performing Organization Address City/[facility]/ZIP Co de Phone Number [facility] 200 [place], [place] [phone] [place] [address] STMA [facility] 200 [place] [address] * Lipase (10/19/2022 3:17 PM CDT) Lipase, S 31 13 - 60 U/L 10/19/2022 4: 06 PM CDT DTL Blood (Blood, Venous) 10/19/2022 3:17 PM CDT 10/19/2022 3:46 PM CDT Jackson Wren P.A.-C. LAB BLOOD ADD-ON Performing Organization Address City/[facility]/ZIP Co de Phone Number [facility] 200 [place] [address], [facility] [place] [address] * (ABNORMAL) Hepatic Function Panel (10/19/2022 3:17 [...] CDT Jackson Wren P.A.-C. LAB BLOOD ADD-ON [facility] [address] [place] [address], [facility] [place] [address] * (ABNORMAL) Basic Metabolic Panel (10/19/2022 3:17 [...] CDT Jackson Wren P.A.-C. LAB BLOOD ADD-ON [facility] [address] [place] [address], [facility] [address] [place] [address] documented in this encounter Visit Diagnoses Diagnosis [...] 1605 (Given - Provid er: Makenzie Ford RCarlosNCarlos - Comment: [id number]) ondansetron (PF) injection 4 mg (ZOFRAN) (COMPLETED)(Linked Group 1) 4 mg, intravenous, Once as needed, nausea, vomiting, Starting on Sat10/19/22 at 1454, For 1 dose, Select antiemetic if IV access obtained. 1511 (Given - Provid er: Nakita De Los Santos R.NCarlos) sodium chloride 0.9 % injection 10 mL [...] Total Score: 21 05/31/ 012 10:33 AM UTILITY SYSTEM OPERATOR documented as of this encounter Care Teams Bull Driver Relationship Specialty Start Date End Date Elsewhere, Pcp PCP - General Internal Medicine 06/26/22 documented as of this encounter
--- OUTSIDE RECORDS SUMMARY | 2023-05-17 08:57 | XMS_ITS | Encounter Summary ---
Author Name Unknown Organization [facility] Address [address] [place] [address] Care Team Providers Care Surveyor Name Role Phone Elsewhere, Pcp Primary Care Provider Unavailabl e Reason for Visit * Reason Comments Abdominal Pain 67 year old female r eturns to ER with continued complaints of left upper quad pain Encounter Details Date Type Department Care Team (Late st Contact Info) Description 06/27/2022 6:06 PM CDT - 06/27/2022 7:44 PM CDT [facility] [address] [facility] [address] [place] [address] Tj Enriquez, P.A.-C. [address] [place] [phone] Abdominal Pain (Primary Dx); Pancreatitis Chronic (HCC) [...] sent through Care Everywhere. * Chronic Pancreatitis (Estonian) documented in this encounter Medications at Time [...] is a 67 y.o. female presents to [facility] requesting evaluation for abdominal pain. [...] History provided by: Patient and medical records inspector screen printing needed/used: no REVIEW OF SYSTEMS Constitutional: Positive [...] (Latest Contact Info) Description 05/28/2023 3:30 PM ADMISSIONS ASSISTANT Clinical Communication Virtual Review in [place] [employer], [place] [address] [place], [place] [phone] 05/30/2023 2:30 PM ADMISSIONS ASSISTANT Comprehensive Visit Division of Pain Medicine in [place] [employer], [place] [address] [place] [phone] Gricel Lynch, PATTERN CHART WRITER, C.N.P. [address] [place] [phone] 07/08/2023 12:15 PM CDT Appointment Division of Gastroenterology in [place] [employer], [place] [address] [place] [phone] Jose Roberto Patterson M.D. [address] [place] [address] documented as of this encounter Procedures Procedure [...] Enriquez P.A.-C. LAB BLOOD NON ADD- ON [facility] [address] [place] [address], [place] [facility] in [address] [address] * Amylase, Total (06/27/2022 6:48 PM CDT) Amylase, Total, P 100 28 - 100 U/L 06/27/2022 7:17 PM CDT CNFL Blood (Blood, Venous) 06/27/2022 6:48 PM CDT 06/27/2022 6:49 PM CDT Tj Enriquez P.A.-C. LAB BLOOD ADD-ON Performing Organization Address City/[facility]/ZIP Co de Phone Number [facility] [address] [place] [address], [facility] [place] [address] * Lipase (06/27/2022 6:48 PM CDT) Lipase, P 58 13 - 60 U/L 06/27/2022 7: 17 PM CDT CNFL Blood (Blood, Venous) 06/27/2022 6:48 PM CDT 06/27/2022 6:49 PM CDT Tj Enriquez P.A.-C. LAB BLOOD ADD-ON Performing Organization Address [facility] Co de Phone Number [facility] [address] [place] [phone], [facility] [place] [address] * (ABNORMAL) Comprehensive Metabolic Panel (06/27/2022 6:48 [...] CDT Tj Enriquez P.A.-C. LAB BLOOD ADD-ON [facility] [address] [place] [phone], [facility] CNFL [facility] in [address] [address] * (ABNORMAL) CBC with Differential, Blood (06/27/2022 6:48 PM CDT) [facility] Hemoglobin 14.1 11.6 - 15.0 g/dL 06/27/2022 [...] CDT Tj Enriquez P.A.-C. LAB BLOOD ADD-ON [facility] [address] [place] [phone], [facility] in [address] [address] documented in this encounter Visit Diagnoses Diagnosis [...] Depression Total Score: 21 012 10:33 AM ADMISSIONS ASSISTANT documented as of this encounter Care Teams Surveyor Relationship Specialty Start Date End Date Elsewhere, Pcp PCP - General Internal Medicine 06/26/22 documented as of this encounter
--- OUTSIDE RECORDS SUMMARY | 2023-05-17 08:57 | XMS_ITS | Clinical Summary ---
Author Name Unknown Organization [facility] Address [address], [place] [address] Care Team Providers Care Hair Weaver Name Role Phone Lew Grewal MD Primary Care Provider [phone] Source Comments You are receiving this document as you are listed as the primary care provider,follow-up provider, or the patient has been referred to you for consultation.This is in compliance with the Medicare and[facility] EHR Incentive Program,which states Providers who transition their patient to another setting of careor provider of care or refers their patient to another provider of care shouldprovide summary care record for each transition of care or referral. scroll kitClovis Baptist HospitalDragonfruit Studios Allergies Active Allergy Reactions Criticality Noted Date Comments Sulfamethoxazole-Trimethoprim Hives 2010 Nitrofurantoin Hives 10/19/2010 Medications Medication Sig Dispensed Refills Start Date End Date Status NEXIUM 40 MG OR CPDRIndications:Memory loss,Multiple sclerosis (HRC) 1 daily Active NORTRIPTYLINE HCL 50 MG OR CAPSIndications:Multip le sclerosis (HRC) 2 po hs 60 6 10/29/2005 Active METFORMIN HCL 500 MG OR TABS 1 twice daily Active TOPROL XL OR 1 daily Active LISINOPRIL 40 MG OR TABS Take one tablet by mouth every day. Active ZOMIG 5 MG OR TABS 1 tab prn Active CYMBALTA 30MG ORAL CAPS 1 tab qam, 2 tabs qhs Active LORAZEPAM 0.5 MG OR TABS 1 tab qhs Active salsalate (AKA DISALCID) 750 MG tabletIndications:Myal johana and myositis, unspecified Take 2 Tabs by mouth two times a day. 60 Tab 0 09/06/2011 Active baclofen (LIORESAL) 10 MG tablet Take 1 Tablet by mouth. 12/28/2010 Active QUEtiapine (SEROQUEL) 100 MG tablet QUEtiapine 100 mg oral tablet See Instructions, 1 tab(s) PO in AM, 4 tab s at bedtime 07/11/2013 Active diclofenac (VOLTAREN) 1 % gelIndications:Arthral johana, unspecified joint,Primary osteoarthritis of both hands Apply 2 g to skin 4 times a day. 200 g 11 01/12/2019 Active oxyCODONE (ROXICODONE) 5 MG immediate release tablet Take 1 Tablet by mouth. 06/19/2013 Active Active Problems Problem Noted Date [...] Colon Cancer Screening Plan Due 1955 Diabetes: Foot Exam 1955 Diabetes: Lipid Panel 1955 Diabetes: Urine Microalbumin 1955 Adult Preventive Visit 05/11/2000 05/11/1999 Mammogram 11/04/2004 11/05/2003 Diabetes: HGBA1C 01/19/2011 10/19/2010, 09/18/2005 Diabetes: Creatinine 10/20/2011 10/19/2010, 09/19/19 Diabetes: Eye Exam 11/11/2011 11/10/2010 DTaP/Tdap/Td (3 - Tdap) 08/21/2014 08/21/2004, 08/21 Zoster/Shingles (2 of 3) 07/17/2016 05/22/2016 Pneumococcal 65+ Yrs (3 - PPSV23 or PCV20) 09/20/2020 09/21/2019, 08/12/2015, 06/29/2014, Additional history exists COVID-19 Vaccine ( - 2022- season) 2022 Influenza (#1) 2022 02/17/2016, 12/30, 02/11/2014, Additional [...] on patient's age to complete this topic Procedures Procedure Name Priority Date/Time Associated Diagnosis Comments HEPATITIS C ANTIBODY, WITH REFLEX Routine 01/12/2019 2:27 PM CDT Arthralgia, unspecified joint Primary osteoarthritis of both hands BASIC METABOLIC PANEL Routine 10/19/2010 2:58 PM CDT Multiple sclerosis Abnormality of gait Other specified visual disturbances HGB A1C Routine 10/19/2010 2:58 PM CDT Multiple sclerosis Abnormality of gait Other specified visual disturbances BILATERAL DIAGNOSTIC MAMMOGRAM Routine 11/05/2003 3:06 PM CDT from Last 3 Months or Most Recently Relevant to Health Maintenance Results * HCAB - Hepatitis C Virus Yuko with Reflex In-House (01/12/2019 2:27 PM CDT) Pathologist [facility] Hepatitis C Antibody Negative (Non Reactive) Negative (Non Reactive) 01/12/2019 7:42 PM CDT [facility] Comment:Antibodies to HCV no t detected. Does not exclude the possiblity of exposure to HCV. Blood Venipuncture / Unknown 01/12/2019 2:27 PM CDT 01/12/2019 2:27 PM CDT Kenrick Juarez MD LAB_1 [facility] [address] * BASIC METABOLIC PANEL (10/19/2010 2:58 PM CDT) Pathologist [facility] BUN 14 7 - 20 mg/dl [facility] Sodium 140 135 - 145 mmol/L [facility] Potassium 4.5 3.5 - 5.3 mmol/L [facility] Chloride 101 95 - 106 mmol/L [facility] CO2 27 22 - 30 mmol/L [facility] Glucose 151 70 - 180 mg/dl [facility] Creatinine 0.76 0.52 - 1.04 mg/dl [facility] GFR, Estimated >60.0 >60 ml/min/1.7 3m2 [facility] GFR, Est., If Black >60.0 >60 ml/min/1.7 3m2 [facility] Calcium 9.8 8.4 - 10.2 mg/dl [facility] Anion Gap (calc.) 12 7 - 16 mmol/L [facility] 10/19/2010 2:58 PM CDT 10/19/2010 3:04 PM CDT Marcello Monterroso MD LAB_1 Performing Organization Address [facility] Co de Phone Number [facility] [address] [phone] * (ABNORMAL) HGB A1C (10/19/2010 2:58 PM CDT) Hgb A1c 8.9(H) 4.3 - 6.1 % [facility] Comment: The usual A1C goal for people with diabetes, age 18-75, is < 7.0%. Physicians may recommend a higher or lower goal for specific individuals. 10/19/2010 2:58 PM CDT 10/19/2010 3:04 PM CDT Marcello Monterroso MD LAB_1 Performing Organization Address [facility] de Phone Number [facility] [address] [phone] * MAMMOGRAM BILATERAL DIAGNOSTIC (11/05/2003 3:06 PM CDT) BILAT. DIAGNOSTIC MAMMOGRAM BILATERAL MAMMOGRAMS AND RIGHT BREAST ULTRASOUND 11/05/03 COMPARISONS: None. INDICATIONS: Right breast mass. ACR Category 2: Benign findings. FINDINGS: Bilateral mammograms show several coarse benigncalcific ations scattered throughout both breasts. Both breasts are otherwise largely fatty replaced. No evidence for malignancy in either breast. On physical exam, I do not palpate a lump in the lateral aspect of the right breast. The patient indicates a mass at the 9 o'clock position, zone 2+3 right breast. I do not palpable a discrete mass at this site. Ultrasound exam of the lateral aspect of the right breast shows normal breast tissue only. INDICATIONS: No evidence for malignancy in either breast. I would recommend bilateral screening mammograms in one year. [facility] Anatomical Region Laterality Modality Breast Other 11/05/2003 3:06 PM CDT Narrative 11/08/2003 8:17 AM CDT BILT DG MAMMO, EVALUATION OF PREV BREAST MASS RT BREAST, ??PREV DONE AT [facility] [place], Amen Ciro [place] [facility]/RH from Last 3 Months or Most Recently Relevant to Health Maintenance Care Teams Hair Weaver Relationship Specialty Start Date End Date Lew Grewal MD [address] [facility] [place] [address] PCP - General Family Practice 12/10/18
--- OUTSIDE RECORDS SUMMARY | 2023-05-17 08:57 | XMS_ITS | Encounter Summary ---
Author Name Unknown Organization [facility] Address [address] [place] [address] Care Team Providers Care In Service Education Teacher Name Role Phone Elsewhere, Pcp Primary Care Provider Unavailabl e Reason for Referral * Outpatient (Routine) - Authorized Specialty Diagnoses / Procedures Referred By Olivia t Referred To Contact Emergency Medicine Diagnoses Pancreatitis Acute (HCC) Rivera Brandt APRN, C.N.P., M.S.N. [address] [place] [phone] [facility] Region Referral ID Status Reason Start Date Expiration Date V isits Requested Visits Authorized [id number] Authorized 06/26/2022 06/25/2025 1 1 Reason for Visit * Reason Comments Abdominal Pain Chest Pain Upper abdominal pain and chest pain. Encounter Details Date Type Department Care Team (Late st Contact Info) Description 06/26/2022 4:59 PM CDT - 06/26/2022 8:07 PM CDT Emergency [facility] [address] [place] [phone] Madhav Basurto APRN, C.N.P., D.N.P. [address] [place] [phone] Rivera Brandt APRN C.N.P., M.S.N. [address] [place] [address] Pancreatitis Acute (HCC) (Primary Dx); Colitis Discharge [...] sent through Care Everywhere. * Acute Pancreatitis [id number] (Palauan) * Colitis (Palauan) documented in this encounter Medications at Time [...] PM CDT Care of patient transferred to or by Madhav Basurto CNP. Disposition pending CT. [...] left upper quadrants. History provided by: Patient dump worker needed/used: no REVIEW OF SYSTEMS Constitutional: Negative [...] additional history from the medical record and receiving team member. Evaluation and management will include: CBC with [...] DISPOSITION Pending but anticipate discharge Madhav Basurto, ARIANE, FLATWORK FINISHER, FISH CUTTING MACHINE OPERATOR-C, AGACNP-BC, ENP-C Emergency Medicine Madhav Basurto, C.N.P. 06/26/222028 documented in this encounter Plan of Treatment Upcoming Encounters Date Type Department Care Team (Latest Contact Info) Description 05/28/2023 3:30 PM IMPLEMENTATION DIRECTOR Clinical Communication Virtual Review in [place], [place] [address] [place] [address] 05/30/2023 2:30 PM IMPLEMENTATION DIRECTOR Comprehensive Visit Division of Pain Medicine in [address] [phone] Gricel Lynch APRN, C.N.P. [address] [place] [phone] 07/08/2023 12:15 PM CDT Appointment Division of Gastroenterology in [address] [phone] Jose Roberto Patterson M.D. [address] [place] [phone] Scheduled Referrals Name Type Priority Associated Diagnoses [...] vRad: Findings concordant with preliminary vRad report. Eugenio Basurto FLATWORK FINISHER, C.N.P., D.N.P. IMG CT PROCEDURES * (ABNORMAL) Comprehensive [...] D.N.P. LAB BLOOD ADD-ON Performing Organization Address City/[facility]/[place] [address], [place] [address] * Lactate (06/26/2022 5:37 PM CDT) Lactate, P 2.0 0.5 - 2.2 mmol/L 06/26/2022 6:01 PM CDT CNFL Blood (Blood, Venous) 06/26/2022 5:37 PM CDT 06/26/2022 5:40 PM CDT Mona Tan APRN.N.P., D.N.P. LAB BLOOD NON ADD-ON Performing Organization Address [facility] [place] [address], [address] [address] * (ABNORMAL) Lipase (06/26/2022 5:37 PM CDT) Lipase, P 84(H) 13 - 60 U/L 06/26/2022 6: 06 PM CDT CNFL Blood (Blood, Venous) 06/26/2022 5:37 PM CDT 06/26/2022 5:40 PM CDT Mona Tan APRN.N.P., D.N.P. LAB BLOOD ADD-ON [address] [place] [address], [facility] CNFL [facility] in [address] [address] * (ABNORMAL) CBC with Differential, Blood (06/26/2022 5:37 PM CDT) [facility] Signature Hemoglobin 14.5 11.6 - 15.0 g/dL 06/26/2022 [...] 5:40 PM CDT Madhav Basurto APRN, C.N.P., JustinNCarlosP. LAB BLOOD ADD-ON [facility] [address] [place] [address], [facility] CN[facility] in [address] [address] documented in this encounter Visit Diagnoses Diagnosis [...] On Sat06/26/22 at 1725, For 1 dose 1741 (Given - Provid er: Kendall Masters R.N.) ketorolac injection 15 mg (TORADOL) (COMPLETED) 15 mg, intravenous, Once, On Sat06/26/22 at 1725, For 1 dose, Adult IV push rate: Over 15 seconds. Peds IV push rate: Over 1 minute. Doses > 15 mg IV/IM are discouraged due to lack of additional analgesic benefit. 173 (Given - Provid er: Kendall Masters R.N.) NaCl 0.9 % bolus 1,000 mL (COMPLETED) 1,000 mL, intravenous, at 1,000 mL/hr, Administer over 1 Hours, Once, On Sat06/26/22 at 1725, For 1 dose 174 (New Bag - Prov ider: Kendall Masters R.N.)190 (Stopped - Provider: Deedee Moseley R.N.) NaCl 0.9 % bolus 1,000 mL (COMPLETED) 1,000 mL, intravenous, at 1,000 mL/hr, Administer over 1 Hours, Once, On Sat06/26/22 at 1814, For 1 dose 190 (New Bag - Prov ider: Deedee Moseley R.N.)1941 (Stopped - Provider: Deedee Mosleey R.N.) ondansetron (PF) injection 4 mg (ZOFRAN) (COMPLETED) 4 mg, intravenous, Once, On 06/26/22 at 1725, For 1 dose 173 (Given - Provid er: Kendall Masters R.N.) oxyCODONE IR tablet 5 mg (ROXICODONE) (COMPLETED) 5 mg, oral, Once, On e 06/26/22 at 1920, For 1 dose 194 (Given - Provid er: Deedee Moseley R.N.) sodium chloride 0.9 % flush 78 mL (COMPLETED) 78 mL, intravenous, Once, On e 06/26/22 at 1804, For 1 dose 182 (Given - Provid er: Sota Proeung, R.T.(R)(CT), R.T.(R)) sodium chloride 0.9 % injection 10 mL (COMPLETED) 10 mL, intravenous, Once, On 06/26/22 at 1804, For 1 dose 182 (Given - Provid er: Sota Proeung, R.T.(R)(CT), R.T.(R)) PRN Medication Order 06/24/2022 06/25/2022 06/26/2022 iohexoL 300 mg iodine/mL solution 100 mL (OMNIPAQUE) (COMPLETED) 100 mL, intravenous, Once in imaging, contrast, Starting on Sat06/26/22 at 1802, For 1 dose, If administered oral then dilute in 900 mL water 182 (Given - Provid er: Sota Proeung, R.T.(R)(CT), R.T.(R) - Comment: [id number]) documented in this encounter Additional Health Concerns Assessment Noted Time PHQ-9 Depression Total Score: 21 012 10:33 AM IMPLEMENTATION DIRECTOR documented as of this encounter Care Teams In Service Education Teacher Relationship Specialty Start Date End Date Elsewhere, Pcp PCP - General Internal Medicine 06/26/22 documented as of this encounter
== END 2023-05-17 08:50 | disposition home or self-care (01) ==
LOC: RAD 08:50
PROVIDERS: PCP Nurse Practitioner Family; Visit Provider Nurse Practitioner Family
DX: I70.90 Unspecified atherosclerosis (principal); I34.0 Nonrheumatic mitral (valve) insufficiency; I35.1 Nonrheumatic aortic (valve) insufficiency; R53.83 Other fatigue; R06.00 Dyspnea, unspecified
CPT/HCPCS: 93306

== ENCOUNTER 2023-06-04 11:49 | Outpatient (CLI) | payer MEDICARE, OTHER, SELFPAY | END 2023-06-04 11:50 | disposition home or self-care (01) | PROVIDERS: PCP Nurse Practitioner Family; Visit Provider Nurse Practitioner Family | DX: R10.9 Unspecified abdominal pain (principal); R07.9 Chest pain, unspecified | CPT/HCPCS: 80053; 81001; 85025; 87086; 87186 ==

== ENCOUNTER 2023-06-06 10:15 | Outpatient (CLI) | payer MEDICARE, OTHER, SELFPAY | END 2023-06-06 10:16 | disposition home or self-care (01) | PROVIDERS: PCP Nurse Practitioner Family; Visit Provider Nurse Practitioner Family | DX: E87.6 Hypokalemia (principal); R07.9 Chest pain, unspecified | CPT/HCPCS: 84132; 84484 ==

== ENCOUNTER 2023-06-12 10:18 | Day surgery (SDC) | payer MEDICARE, OTHER, SELFPAY ==
[2023-06-12] MEDS: TETRACAINE 0.5% OPHTH 1 DROP EYE-RIGHT ×2 (10:40→10:45)
[2023-06-12 10:41] VITALS: BMI 21.2
[2023-06-12 10:58] VITALS: BP 150/79; PULSE 73; RESP 18; TEMP 36.7; O2SAT 97
[2023-06-12] MEDS: SODIUM CHLORIDE 0.9 % (FLUSH) 10 ML SYRINGE IVF (10:59)
--- NOTE | 2023-06-12 11:03 | SUR.PREOP ---
The eye drops brought by the patient (Ketorolac, Prednisolone, and Ofloxacin) are examined and I have determined they are labeled by the patient's pharmacy for this patient as prescribed by the surgeon. The bottles are intact, recently obtained and appear to be correct.andrew
--- NOTE | 2023-06-12 11:03 | SUR.PREOP ---
Pt forgot eye meds at home for pre-op and post op drops Dr. Orourke aware she stated that was ok and that Pt just needs to put drops in immediately when she gets home I told pt that and banking services advisor notified to tell pt that on discharge also
--- NOTE | 2023-06-12 11:26 | W.ANESCHARGE ---
Anesthesia Charges Start Date/Time Anesthesia Start Date: 06/12/23 Anesthesia Start Time: 11:24 Stop Date/Time Anesthesia Stop Date: 06/12/23 Anesthesia Stop Time: 11:57
[2023-06-12] MEDS: TETRACAINE 0.5% OPHTH 2 DROP EYE-RIGHT (11:27)
[2023-06-12] MEDS: BALANCED SALT IRRIG SOLN 15 ML EYE-RIGHT (11:33)
--- NOTE | 2023-06-12 11:47 | W.ANESCHARGE ---
Anesthesia Charges Start Date/Time Anesthesia Start Date: 06/12/23 Anesthesia Start Time: 11:24 Stop Date/Time Anesthesia Stop Date: 06/12/23 Anesthesia Stop Time: 11:57
[2023-06-12 11:57] VITALS: BP 155/84; PULSE 79; RESP 18; TEMP 37; O2SAT 98
--- NOTE | 2023-06-12 11:57 | P.OPTPRC_ITS ---
Procedure Note Date of procedure: 06/12/23 Will [facility] bill your pro fee for this procedure?: Yes Procedure Description: SURGEON: Komal Orourke MD PREOPERATIVE DIAGNOSIS: Nuclear sclerotic cataract, right eye. POSTOPERATIVE DIAGNOSIS: Nuclear sclerotic cataract, right eye. NAME OF OPERATION: Phacoemulsification of cataract with posterior chamber intraocular lens implantation in the right eye. ANESTHESIA: Topical. ESTIMATED BLOOD LOSS: Less than 2 cc. COMPLICATIONS: None. PATHOLOGY SPECIMEN: None. INDICATIONS: See consult note for details. The risks, benefits and alternatives of the procedure were explained to the patient, who elected to proceed and signed informed consent to do so. PROCEDURE: The patient was brought to the pre-holding area where the right eye was identified as the operative eye. I placed my initials above this eye. The patient received eye drops consisting of 0.5% tetracaine, 1% tropicamide, 10% phenylephrine, and 0.5% ketorolac. The patient was then brought to the operating room where the right eye was again identified as the operative eye. The eye was prepped with Betadine and draped in the usual sterile ophthalmic fashion. A #15 super-sharp blade was used to create a paracentesis site. 1% non-preserved intracameral lidocaine was injected into the anterior chamber. Endocoat was injected into the anterior chamber. A 2.4 mm keratome was used to create a three-plane self-sealing incision 1 mm anterior to the temporal limbus. A cystotome was used to create an anterior capsular leaflet. The Utrata forceps were used to extend this to form a continuous curvilinear capsulorrhexis. Hydrodissection was performed. The cataract was removed with phacoemulsification using the uokswo-xoi-kehkhmb technique. The irrigation and aspiration tip was used to remove the remaining cortex. Healon was injected into the capsular bag. An JOEY ZCB00 intraocular lens of 22.0 diopters was injected into the capsular bag. The irrigation and aspiration tip was used to remove the remaining viscoelastic. Balanced salt solution on a cannula was used to hydrate the wound, and the wound was found to be watertight. The pupil was noted to be round. DISPOSITION: The patient was taken to the recovery room and discharged to home in stable condition. The patient was instructed to call me or go to the emergency department with any sudden change, including dramatic loss of vision, severe pain in the eye or eyebrow region, nausea, or vomiting. The patient will follow up in the clinic tomorrow morning.
--- NOTE | 2023-06-12 12:16 | SUR.PHASEII ---
PATIENT FORGOT EYE DROPS TO BE GIVEN POST-OP, SURGEON AWARE. PATIENT INSTRUCTED TO START POST-OP DROPS SOON SHE GETS HOME PER SURGEON'S VERBAL ORDER.
== END 2023-06-12 12:20 | disposition home or self-care (01) ==
LOC: OR 10:18
PROVIDERS: PCP Nurse Practitioner Family; Visit Provider Ophthalmology
PROC: (CPT 66984; principal; 2023-06-12 10:30)
DX: H25.11 Age-related nuclear cataract, right eye (principal); E11.9 Type 2 diabetes mellitus without complications
CPT/HCPCS: 66984; 00142; 82962; A9270; J2250; J2405; J3010; V2632

== ENCOUNTER 2023-07-25 10:26 | Outpatient (CLI) | payer MEDICARE, OTHER, SELFPAY ==
--- NOTE | 2023-07-25 11:30 | MM_ITS ---
Patient: MATHIEU MORRIS Facility:?[facility] Patient ID:?[id number] Site Patient ID:?[id number] Site :?[id number] Study:?XRay-Breast Bilateral 3D W/CAD-07/25/2023 11:04:06 AM Ordering Physician:ANNABELLE JEAN Final Report: BILATERAL SCREENING MAMMOGRAM WITH COMPUTER-AIDED DETECTION AND TOMOSYNTHESIS TECHNIQUE: CC and MLO views were obtained. These mammographic images have been obtained using full-field digital technique. These mammographic images were interpreted with the benefit of computer-aided detection. Breast Tomosynthesis was used in this interpretation. COMPARISON FILM: No comparison available. FINDINGS: There are scattered areas of fibroglandular density. IMPRESSION: There is no radiographic evidence for malignancy. ASSESSMENT: BI-RADS Category 1: Negative RECOMMENDATION: Routine screening mammogram in 1 year. A lay language report of this examination will be provided to the patient. Madhav Santoyo M.D. Diagnostic Radiologist [email or web address] DSM/sp R& Transcribed: 7:11 p.m. SP/Dictated by: Madhav Santoyo MD @ 07/25/2023 11:47:00 AM Signed by:?Madhav Santoyo MD @07/26/2023 11:26:49 AM (Electronic Signature)
== END 2023-07-25 10:27 | disposition home or self-care (01) ==
LOC: MAMMO 10:28
PROVIDERS: PCP Nurse Practitioner Family; Visit Provider Nurse Practitioner Family
DX: Z12.31 Encounter for screening mammogram for malignant neoplasm of breast (principal)
CPT/HCPCS: 77063; 77067

== ENCOUNTER 2023-08-30 10:51 | Outpatient (CLI) | payer MEDICARE, OTHER, SELFPAY ==
--- OUTSIDE RECORDS SUMMARY | 2023-08-30 10:54 | XMS_ITS | Clinical Summary ---
Author Organization [facility] Address [place], [place] [address] Care Team Providers Care Tube Worker Name Role Phone Anne Esquivel RELOCATION ASSOCIATE Primary Care Provider [phone] Allergies Active Allergy Reactions Criticality Noted Date Comments Lactose GI Upset 10/16/2002 Nitrofurantoin Hives Medium 01/17/2010 Pollen Extracts Hives 02/02/2011 Prednisone Myalgia 07/03/2002 Sulfamethoxazole *Unknown 10/04/2010 Sulfamethoxazole-Trimethoprim Hives Medium 2009 Trimethoprim *Unknown 05/17/2021 Medications Medication Sig Dispensed Refills Start Date End Date Status amLODIPine (NORVASC) 5 mg tablet Take 5 mg by mouth at bedtime. Active DULoxetine (CYMBALTA) 30 mg Delayed-release capsule Take 30 mg by mouth every morning. Active DULoxetine (CYMBALTA) 60 mg Delayed-release capsule Take 60 mg by mouth at bedtime. Active glipiZIDE (GLUCOTROL) 10 mg tablet Take 20 mg by mouth at bedtime. Active insulin glargine, U-100, (Lantus U-100 Insulin) 100 unit/mL injection Inject 30 units subcutaneous 2 times daily at 8 AM and 10 PM. Product desired: LANTUS Active losartan (COZAAR) 100 mg tablet Take 100 mg by mouth at bedtime. Active montelukast (SINGULAIR) 10 mg tablet Take 10 mg by mouth at bedtime. Active multivitamins-operations examiner als-lutein (Centrum Silver) 0.4 mg-300 mcg- 250 mcg tab Take 1 Tablet by mouth at bedtime. Active ondansetron (ZOFRAN ODT) [address] 4 mg on the tongue 3 times daily if needed for Nausea/Vomiting. Active oxyCODONE (ROXICODONE) 5 mg immediate release tablet Take 5 mg by mouth every 8 hours if needed for Pain. Active QUEtiapine (SEROQUEL) 400 mg tablet Take 400 mg by mouth at bedtime. Active SUMAtriptan (IMITREX) 100 mg tablet Take 100 mg by mouth every 2 hours if needed for Migraine. Give at minimum 2hrs apart. Max Dose: 200mg per 24hrs. Active hdujxk-jqepapak-whj lase (CREON) 24,000-76,000 -120,000 unit cpDR delayed-release capsuleIndications: Chronic pancreatitis, unspecified pancreatitis type (HC) Take 2 Capsules by mouth four times daily with meals and at bedtime. 120 Capsule 11/24/2022 Active atorvastatin (Lipitor) 10 mg tablet Take 10 mg by mouth once daily. Take 1 tab (10 mg) by mouth daily Active oxybutynin XL (DITROPAN XL) 10 mg CR tablet Take 10 mg by mouth once daily. Active apixaban (Eliquis DVT-PE Treat 30D Start) tablet in a dose packIndications:Acu te deep vein thrombosis (DVT) of axillary vein of right upper extremity (HC) Take by mouth as directed on starter pack. 74 Tablet 01/08/2023 Active sennosides (SENNA) 8.6 mg tabletIndications:C hronic, continuous use of opioids Take 1-2 Tablets (8.6-17.2 mg) by mouth 2 times daily if needed for Constipation. 30 Tablet 01/08/2023 Active polyethylene glycoL (MIRALAX) 17 gram/scoop powderIndications:C hronic, continuous use of opioids Mix 1 scoop (17 g) in liquid then take by mouth once daily if needed for Constipation. 510 g 01/08/2023 Active acetaminophen (TYLENOL EXTRA STRGTH) 500 mg tabletIndications:A cute deep vein thrombosis (DVT) of axillary vein of right upper extremity (HC),Pain of right upper extremity Take 2 Tablets (1,000 mg) by mouth every 6 hours if needed for Pain (For mild pain). Max acetaminophen dose: 4000mg in 24 hrs. 10 Tablet 01/08/2023 Active Active Problems Problem Noted Date [...] disorder 09/18/2005 Overview: Epic Bipolar disorder NOS Social History Tobacco Use Types Packs/Day [...] Comments Blood Pressure 145/72 03/08/2023 11:25 AM STRIP PICKER Pulse 78 03/08/2023 9:49 AM STRIP PICKER Temperature 37 ??C (98.6 ??F) 03/08/2023 9:49 AM STRIP PICKER Respiratory Rate 16 03/08/2023 9:49 AM STRIP PICKER Oxygen Saturation 94% 03/08/2023 11:25 AM STRIP PICKER Inhaled Oxygen Concentration - - Weight 58.1 kg (128 lb) 03/08/2023 9:49 AM STRIP PICKER Height 162.6 cm (5' 4) 03/08/2023 9:49 AM STRIP PICKER Body Mass Index 21.97 03/08/2023 9:49 AM STRIP PICKER Plan of Treatment Health Maintenance Due Date Last Done Comments Pneumococcal series for age 65+ (1 of [...] 2019 Medicare Wellness for age 65+ 2019 COVID-19 vaccine series ( - season) 3 Influenza for age 65+ 12/01/2023 Lipids for age 45-75 11/23/2027 11/22/2022 Procedures Procedure Name Priority Date/Time Associated Diagnosis Comments LIPID PANEL KAM[place]LE 11/22/2022 6:39 PM CDT from Last 3 Months or Most Recently Relevant to Health Maintenance Results * (ABNORMAL) LIPID PANEL (11/22/2022 6:39 PM CDT) CHOLESTEROL,TOTAL 81(L) 100 - 199 mg/dL 11/22/2022 9:39 PM CDT [facility] TRIGLYCERIDES 99 <150 mg/dL 11/22/2022 9:39 PM CDT [facility] HDL CHOLESTEROL 33(L) >40 mg/dL 9:39 PM CDT [facility] NON-HDL CHOLESTEROL 48 <145 mg/dl 11/22/2022 9:39 PM CDT [facility] CHOL/HDL RATIO 2.45 <4.50 11/22/2022 9:39 PM CDT [facility] LDL CHOLESTEROL 28 <=130 mg/dL 11/22/2022 9:39 PM CDT [facility] VLDL CHOLESTEROL 20 <=30 mg/dL 11/22/2022 9:39 PM CDT [facility] PROVIDER ORDERED STATUS RANDOM 11/22/2022 9:39 PM CDT [facility] Blood BLOOD SPECIMEN / Unknown Butterfly / Unknown 11/22/2022 6:39 PM CDT 11/22/2022 6:44 PM CDT Gerardo [facility]ORTON CHEMISTRY [facility] [address] [place] [address] from Last 3 Months or Most Recently Relevant to Health Maintenance Advance Directives Documents on File Type Date Recorded Patient [place] Cementer Expl anation Healthcare Directive 11/23/2022 023 * Full Code (Latest Code Status on File) Date Activated Date Inactivated Comments 01/06/2023 7:04 PM 01/08/2023 12:46 PM Question Answer Comments Code Status Discussion: Reviewed Preferences * Full Code Date Activated Date Inactivated Comments 11/22/2022 10:09 PM 11/24/2022 2:55 PM Question Answer Comments Code Status Discussion: Reviewed Preferences Care Teams Tube Worker Relationship Specialty Start Date End Date Anne Esquivel, RELOCATION ASSOCIATE [address] [place] [id number] PCP - General Emergency Medicine 11/23/22
--- OUTSIDE RECORDS SUMMARY | 2023-08-30 10:54 | XMS_ITS | Clinical Summary ---
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 For routine questions regarding patient records, call [phone] during business hours, M-F 8:00 AM - 5:00 PM Central Time. Record requests for emergency care only can be directed to [phone] at any time.[facility] Allergies Active Allergy Reactions Criticality Noted [...] Take 1 tablet by mouth at bedtime. 01/24/2015 Active QUEtiapine (SEROquel) 400 mg tablet Take 400 mg by mouth at bedtime. 07/11/2013 Active oxyBUTYnin (DITROPAN-XL) 10 mg 24 hr tablet Take 10 mg by mouth at bedtime. Active Accu-Chek Guide test strips 3 (three) times a day. for testing 07/25/2022 Active cyclobenzaprine (FLEXERIL) 10 mg tablet Take 10 mg by mouth 3 (three) times a day as needed. 07/26/2022 Active SUMAtriptan (IMITREX) 100 mg tablet Take 100 mg by mouth as needed for migraine. May repeat dose once in 2 hours if migraine is unresolved. Do not exceed 200 mg in 24 hours. Active simvastatin (ZOCOR) 40 mg tablet Take 40 mg by mouth at bedtime. Active montelukast (SINGULAIR) 10 mg tablet Take 10 mg by mouth at bedtime. Active DULoxetine (CYMBALTA) [address] capsule Take 30 mg by mouth every morning. Active donepeziL (ARICEPT) 5 mg tablet Take by mouth daily. 05/17/2021 Active ondansetron ODT (ZOFRAN-ODT) 4 mg disintegrating tablet DISSOLVE ONE TABLET ON THE TONGUE TWO TO THREE TIMES PER DAY NEEDED FOR NAUSEA AND VOMITING FOR 3 DAYS 09/17/2022 Active oxyCODONE (ROXICODONE) 10 mg IR tablet TAKE ONE-HALF TABLET BY MOUTH FOUR TIMES A DAY NEEDED FOR PAIN FOR 14 DAYS 10/16/[address] tablet Take 325 mg by mouth every 6 (six) hours as needed for pain. Active varenicline (CHANTIX CECILE) 0.5 mg (11)- 1 mg (42) tablet Use as directed on package instructions, try to quit smoking after 1 week. 53 tablet 01/02/2023 Active Additional Information Patient not taking.Reported on 06/26/2023 fentaNYL (DURAGESIC) 12 mcg/hr patch States it fell off 01/31/2023 Active acetaminophen (TYLENOL) 500 mg tablet Take 1,000 mg by mouth every 6 (six) hours as needed. 01/08/2023 Active insulin glargine (LANTUS) 100 unit/mL injection Inject 30 Units under the skin 2 (two) times a day. Full dose last night. None today Active clotrimazole (LOTRIMIN) 1 % cream APPLY TO AFFECTED AREA(S) TWO TIMES A DAY FOR 7 DAYS 04/19/2023 Active hydrocortisone (INSTACORT) 0.5 % cream ONE APPLICATION TOPICALLY TWICE DAILY NEEDED FOR RASH 04/19/2023 Active insulin lispro 100 unit/mL injection Not started yet 04/29/2023 Ac tive BD Ultra-Fine Micro Pen Needle 32 gauge x 1/4 needle 04/29/2023 Active nystatin (MYCOSTATIN) 100,000 unit/mL suspension TAKE 4MLS BY MOUTH FOUR TIMES DAILY FOR 7 DAYS; ADMINISTER ONE HALF DOSE IN EACH SIDE OF THE MOUTH 04/19/2023 Active QUEtiapine (SEROquel) 100 mg tablet Take 100 mg by mouth at bedtime. 06/21/2023 Active oxyCODONE (ROXICODONE) 5 mg immediate release tablet Take 5 mg by mouth every 6 (six) hours as needed for pain. For 30 days. Active Active Problems Problem Noted Date Diagnosed [...] Encounters Date Type Department Care Team Description 07/17/2023 9:53 AM CDT - 07/17/2023 11:59 PM CDT Hospital Encounter Department of Radiology, [facility], in [place], [place] [address] [place] [phone] Tyrese España M.D. Dyspnea Discharge Disposition: Home or Self Care 07/11/2023 Clinical Communication Department of Nic[facility] D[facility], [facility] [place], [place] [address] [place] [phone] Froy Can M.A. Nicotine Dependence 07/09/2023 Orders Only Division of Gastroenterology in [place], [place] [address] [place] [phone] Jose Roberto Patterson M.D. Pain Abdominal Chronic (Primary Dx) 07/08/2023 11:17 AM CDT Anesthesia Event Division of Gastroenterology in [address] [phone] Elizabeth May APRN, CRNA Kor, Benjamin T, M.D. 07/08/2023 11:10 AM CDT Ancillary Procedure Department of Gastroenterology 07/08/2023 11:07 AM CDT - 07/08/2023 11:59 PM CDT Hospital Encounter Department of Radiology, [facility], in [place], [place] [address] [place] [phone] Jose Roberto Patterson M.D. Pancreatitis Chronic (HCC) Discharge Disposition: Home or Self Care 07/08/2023 9:36 AM CDT - 07/08/2023 11:06 AM CDT Hospital Encounter Division of Gastroenterology in [address] [phone] Jose Roberto Pattesron M.D. Kiehne, Emily A, APRN, CRNA Pancreatitis Chronic (HCC) Discharge Disposition: Home or Self Care 07/04/2023 1:15 PM CDT Comprehensive Visit Department of Cardiovascular Medicine in [address] [phone] Tyrese España M.D. Dyspnea (Primary Dx); Abnormal Findings On Diagnostic Imaging Of Heart And Coronary Circulation; Dyspnea On Exertion; Pain Chest 06/28/2023 10:59 AM CDT - 06/28/2023 11:59 PM CDT Hospital Encounter Department of Cardiovascular Diseases in [place], [place] [address] [place] [phone] Anna Santiago APRN, C.N.P., M.S.N. Hypertension Essential Primary; Pain Chest; Shortness Of Breath Discharge Disposition: Home or Self Care 06/28/2023 9:53 AM CDT - 06/28/2023 10:58 AM CDT Hospital Encounter Department of Laboratory Medicine and Pathology, [facility] in [place], [place] [address] [place] [phone] Anna Santiago APRN, C.N.P., M.S.N. Hypertension Essential Primary; Pain Chest; Shortness Of Breath Discharge Disposition: Home or Self Care 06/28/2023 Clinical Communication Department of Cardiovascular Medicine in [place], [place] [address] [place] [phone] Fiona Simms RIrving. Abnormal Test Result (Elevated glucose) 06/26/2023 10:45 AM CDT Clinical Communication Virtual Review in [place], [place] [address] [place] [phone] Pre-visit Intake 06/18/2023 Clinical Communication Division of Gastroenterology in [place], [place] [address] [place] [phone] Jose Roberto Patterson M.D. 06/10/2023 Clinical Communication Department of Cardiovascular Medicine in [place], [place] [address] [place] [phone] Prescheduling, Provider OSM - Outside Materials 06/10/2023 Clinical Communication Department of Cardiovascular Medicine in [place], [place] [address] [place] [phone] Prescheduling, Provider External Triage 06/05/2023 [facility] [address] [place] [address] Anne Esquivel C.NCarlosPCarlos Diabetes Mellitus Type 2 (HCC) (Primary Dx) 06/03/2023 [facility] [address] [place] [address] Anne Esquivel C.N.P. Abnormal Findings On Diagnostic Imaging Of Heart And Coronary Circulation (Primary Dx); Dyspnea from Last 3 Months Immunizations Name Administration Dates Next Due HZV (ZOSTAVAX) 05/22/2016 Influenza (IM) Preservative Free 01/14/2013,12/31 Influenza TIV (IM) 02/17/2016, 5,02/11/2014,2011,12/07/2010,01/09/2010,04/26/2005,1 ,03/13/2000 Influenza, Seasonal, Injectable 02/17/20 16,01/10/2015,02/11/2014,2011,12/07/2010,04/26/2005,01/26/2004 Influenza, Unspecified 02/11/2014,2012,01/10/2012,2010,01/13/2010,01/22/2008 PCV13 09/21/2019,08/12/2015 PPSV23 06/29/2014,04/01/1998 Td (Adult), adsorbed 08/21/2004 Td Preservative Free (TENIVA C, DECAVAC) 01/30/2006,08/21/2004 Tdap 07/24/2022,08/21/2004 Family History Medical History Relation Name Comments Lung cancer Father Umang Diabetes Mother Marifer Liver failure Mother Marifer Relation Name Status Comments Father Umang Mother Marifer Social History Tobacco Use Types Packs/Day Years Used Date Smoking Tobacco: Every Day Cigarettes 0.3 55.4 Started: 04/01/1968 Smokeless Tobacco: Never Tobacco Cessation:Ready [...] your living situation today? I have a [facility] place to live 01/01/2023 Sex and Gender Information Value Date Recorded Sex Assigned at Female 01/01/2023 9:08 AM CDT Gender Identity Female 01/01/2023 9:08 AM CDT Sexual Orientation Straight 01/01/2023 9: 08 AM CDT Last Filed Vital Signs Vital Sign Reading Time Taken Comments Blood Pressure 123/98 07/08/2023 1:02 PM CDT Pulse 71 07/08/2023 1:02 PM CDT Temperature 36.6 ??C (97.9 ??F) 07/08/2023 12:32 PM C DT Respiratory Rate 16 07/08/2023 1:02 PM CDT Oxygen Saturation 99% 07/08/2023 1:02 PM CDT Inhaled Oxygen Concentration - - Weight 55.8 kg (123 lb 0.3 oz) 07/04/2023 12:58 PM CDT Height 162 cm (5' 3.78) 07/04/2023 12:58 PM CDT Body Mass Index 21.26 07/04/2023 12:58 PM CDT Plan of Treatment Upcoming Encounters Date Type Department Care Team (Late st Contact Info) Description 10/14/2023 10:30 AM CDT Appointment Division of Gastroenterology in [place], [place] [address] [place] [phone] Jose Roberto Patterson M.D. [address] [place] [phone] Health Maintenance Due Date Last Done Comments CT Colonography 1955 Diabetic Office Visit with F oot Exam 1955 FIT 1955 Generalized Anxiety (CLIFTON-7) 1955 Hepatitis C Screening 1955 Dilated Eye Exam 11/11/2011 11/10/2010 Urine Albumin 05/04/2012 05/04/2011 Mammogram 10/15/2013 10/15/2012 (Perf ormed elsewhere), 05/30/2012 (Performed elsewhere), 05/11/2011, Additional history exists Hepatitis B Vaccines (1 of 3 - Risk 3-dose series) 2014 Zoster Vaccines (1 of 2) 07/17/2016 05/22/2016 Pneumococcal vaccine (65+ ye ars) (3 of 3 - PPSV23 or PCV20) 09/20/2020 09/21/2019, 08/12/2015, 06/29/2014, Additional history exists Colonoscopy 09/11/2021 09/12/2011 (Perf ormed elsewhere), 06/13/2004 COVID-19 Vaccine (1 - 2022-2 4 season) 2022 Influenza Vaccine (#1) 2022 6, 02/17/2016, 01/10/2015, Additional history exists Controlled Substance Agreement 02/19/2023 Controlled Substance Monitor ing (PHQ-9) 02/19/2023 Controlled Substance Monitoring 02/19/2023 Opioid Risk Tool (ORT) 02/19/2023 PEG assessment for Opioid therapy 02/19/2023 Depression Screening (Annual PHQ-2) 04/01/2023 Hemoglobin A1C 08/20/2023 02/19/2023, 03/2 04/2013, 11/30/2012 (Performed elsewhere), Additional history exists Office Visit for Blood Press ure Check / Re-check 10/03/2023 07/04/2023 Creatinine Level (Kidney Fun ction Test) 06/27/2024 06/28/2023, 04/03/2023, 03/08/2023, Additional history exists Potassium Level 06/27/2024 06/28/2023, 0 05/2023, 03/08/2023, Additional history exists Sodium Level 06/27/2024 06/28/2023, 0 05/2023, 03/08/2023, Additional history exists Cologuard 05/31/2026 06/01/2023 Colorectal Cancer Screening 05/31/2026 Lipid (Cholesterol) Screening 11/23/2027, 06/02/2014, 11/30/2012 (Performed elsewhere), Additional history exists DTaP,Tdap,and Td Vaccines (4 - Td or Tdap) 07/24/2032 07/24/2022, 01/30/2006, 08/21/2004, Additional history exists Lung Cancer Screening Discontinued 03/13/2011 Fall Risk Screen (Annual) Completed 07/08/2023 Medical Devices Implanted Type Area Commercial Trailer Truck Driver Device Identifier Shelf Expiration Date Model / Serial / Lot [facility] [id number] - [id number] Implanted:Qty : 1 on 07/08/2023 by Jose Roberto Hays M.D. at [facility] Panc[facility]ent [employer] 05/29/2026 [id number] / / [id number] Explanted Type Area Commercial Trailer Truck Driver Device Identifier Shelf Expiration Date Model / Serial / Lot [facility] 8.5fx22 - [id number] Implanted:Qty : 1 on 05/08/2023 by Alverto Bunch M.D. at [facility] Explanted:Qty : 1 on 07/08/2023 by Jose Roberto Hays M.D. at [facility] Pancreat[facility] [employer]ent [employer] 03/12/2026 [id number] / / [id number] Description:8.5 x 12 Procedures Procedure Name Priority Date/Time Associated Diagnosis Comments PET CT CARDIAC PERFUSION REST AND STRESS RAD - Routine (most inpatients and all outpatients) 07/17/2023 12:27 PM CDT Dyspnea GLUCOSE POCT, B Routine 07/08/2023 12:30 PM CDT FL FLUORO LESS THAN 1 HOUR RAD - Routine (most inpatients and all outpatients) 07/08/2023 12:16 PM CDT Pancreatitis Chronic (HCC) LDA ANE ENDOTRACHEAL AIRWAY Routine 07/08/2023 11:23 AM CDT GASTROENTEROLOGY IMAGE EXAM Routine 07/08/2023 11:10 AM CDT ERCP Routine 07/08/2023 11:09 AM CDT Pancreatitis Chronic (HCC) ERCP Routine 07/08/2023 11:09 AM CDT Pancreatitis Chronic (HCC) GLUCOSE POCT, B Routine 07/08/2023 10:31 AM CDT GLUCOSE POCT, B Routine 07/08/2023 10:06 AM CDT (TTE) 2D ECHO DOPPLER COLOR Routine 06/28/2023 2:01 PM CDT Hypertension Essential Primary Pain Chest Shortness Of Breath COMPREHENSIVE METABOLIC PANEL, S/P Routine 06/28/2023 10:28 AM CDT Hypertension Essential Primary Pain Chest Shortness Of Breath NT-PRO B-TYPE NATRIURETIC PEPTIDE (BNP), S Routine 06/28/2023 10:28 AM CDT Hypertension Essential Primary Pain Chest Shortness Of Breath CBC WITH DIFFERENTIAL, B Routine 06/28/2023 10:28 AM CDT Hypertension Essential Primary Pain Chest Shortness Of Breath ECG Routine 06/28/2023 9:58 AM CDT Hypertension Essential Primary Pain Chest Shortness Of Breath OUTSIDE DX CHEST Routine 06/06/2023 10:35 AM CORE DRILLING SUPERVISOR HEMOGLOBIN A1C, B Routine 02/19/2023 6:1 7 AM CORE DRILLING SUPERVISOR EXTI LIPID PANEL, S Routine 11/22/2022 6 :39 PM CDT BI BREAST SCREENING UNILATERAL Routine 05/11/2011 2:00 PM CORE DRILLING SUPERVISOR ALBUMIN, RANDOM, U Routine 05/04/2011 12:00 [address]LLING SUPERVISOR CT CHEST WITH IV CONTRAST Routine 03/13/2011 1:35 PM CORE DRILLING SUPERVISOR from Last 3 Months or Most Recently Relevant to Health Maintenance Results * PET CT Cardiac Perfusion Rest and Stress (07/17/2023 12:27 PM CDT) 07/17/2023 9:53 AM CDT Narrative [facility] - 07/17/2023 2:45 PM CDT See PDF For Result Procedure Note Ramos Hall M.D. - 07/17/2023 See PDF For Result Tyrese España M.D. IMG NM PROCEDURES Performing Organization Address [facility]/ZIP Co de Phone Number [facility] NA * Glucose, POCT (07/08/2023 12:30 PM CDT) Only the most recent of3 resultswithin the time period is included. Glucose, POCT, B 86 70 - 140 mg/dL 07/08/2023 12:43 PM CDT PCMO Blood 07/08/2023 12:3 0 PM CDT 07/08/2023 12:43 PM CDT Unknown Provider LAB POCT ORDERABLES- MANUAL Performing Organization Address City/[facility]/ZIP Co de Phone Number POC [facility] [address] [place] [address], [place] PCMO [facility] POC [address] [place] [address] * FL Fluoro Less Than 1 Hour (07/08/2023 12:16 PM CDT) Narrative ERCP LOS RST - 07/08/2023 12:17 PM CDT This exam does not require a radiologist review or interpretation. Please refer to the patient's medical record on this date for clinical details. Jose Roberto Patterson M.D. IMG FLUOROSCOP Y PROCEDURES ERCP LOS RST * LDA ANE ENDOTRACHEAL AIRWAY (07/08/2023 11:23 AM CDT) Narrative Ludmila Vasquez APRN, CRNA, MNA - 07/08/2023 11:23 AM CDT Ludmila Vasquez APRN, CRNA, MNA ? 07/08/2023 11:32 AM Airway Date/Time: 07/08/2023 11:23 AM Performed by: Ludmila Vasquez APRN, CRNA, MNA Authorized by: Simone Nichols APRN, CRNA, DNAP ?? Patient location during procedure: OR / Procedure Area PROCEDURE DETAILS: Mask difficulty assessment: easy mask Final airway type: video laryngoscope Laryngeal Manipulation: no ?? Final best view of glottic structures - Cormack/Lehane Score: grade 1 ETT location: oral VL device: glide scope [place] scope blade size: 3 Tube size: 7 [...] outcome: successful ?? Notable Events: no complications Simone Nichols APRN, CRNA, DNAP ANESTH ESIA ORDERABLES * ERCP-Gastroenterology Image Exam (07/08/2023 11:10 AM CDT) 07/08/2023 11:0 9 AM CDT Narrative [facility] - 07/08/2023 2:20 PM CDT This order has been created and auto-finalized to support the import of images acquired without order. The clinical documentation to support these images can be found on the encounter that produced images. Provider Not In System IMG NON RAD IMAGI NG PROCEDURES [facility] NA * ERCP (07/08/2023 11:09 AM CDT) 07/08/2023 11:0 9 AM CDT Impressions [facility] - 07/08/2023 5:09 PM CDT Post-op Diagnoses: ? - Chronic pancreatitis with stones in the main pancreatic duct and mild ? stenosis of the main pancreatic duct in the head s/p dilation of the ? main pancreatic duct stenosis to 6 mm and extraction of two pancreatic ? duct stones. ? - 10 Fr x 12 cm Johlin plastic stent placed in the main pancreatic duct. Narrative [facility] - 07/08/2023 5:09 PM CDT [facility] 2 GI Patient Name: Yary Prince Date of : 1955 Age: 68 Procedure Date: 07/08/2023 Procedure: ? ERCP Providers: ? Jose Roberto Patterson MD, Ivette Jolly MD (Fellow) Referring Provider: ?Jose Roberto Patterson MD Pre-op Diagnoses: ?Pancreatic duct stone, Stent change Recommendation: ? - Discharge patient to home. ? - Patient has a contact number available for emergencies. The signs and ? symptoms of potential delayed complications were discussed with the ? patient. Return to normal activities tomorrow. Written discharge ? instructions were provided to the patient. ? - Resume previous diet. ? - Observe patient's clinical course following today's ERCP with ? therapeutic intervention. ? - Repeat ERCP in 3 months to remove stent. Findings: ? A pancreatic stent was visible on the classroom instructional aide film. The esophagus was ? successfully intubated under direct vision without detailed examination ? of the pharynx, larynx, and associated structures, and upper GI tract. ? The upper GI tract was grossly normal. One temporary plastic pancreatic ? stent originating in the pancreatic duct was emerging from the major ? papilla. The stent was visibly patent. One stent was removed from the ? pancreatic duct using a snare. A 0.035 inch angled Glidewire was passed ? into the ventral pancreatic duct. The ventral pancreatic duct was then ? deeply cannulated with the 8.5 mm balloon. Contrast was injected. I ? personally interpreted the pancreatic duct images. There was brisk flow ? of contrast through the ducts. Image quality was adequate. Contrast ? extended to the pancreatic duct. Changes, including dilation of the main ? pancreatic duct and beading of side branches, were seen in the entire ? opacified area consistent with chronic pancreatitis. The main pancreatic ? duct contained multiple stones. The main pancreatic duct was ? successfully dilated with a 4 mm balloon and a 6 mm balloon dilator. The ? biliary tree was swept with an 8.5 mm balloon and 11.5 mm balloon ? starting at the main pancreatic duct. Nothing was found. To remove the ? object(s) the ventral pancreatic duct was swept with a basket starting ? at the pancreatic duct in the body of the pancreas. Two stones were ? removed. No stones remained. One 10 Fr by 12 cm temporary plastic ? pancreatic stent was placed into the ventral pancreatic duct. Fluid ? flowed through the stent. The stent was in good position. Procedural Details: ? The patient was seen, [...] oxygen saturations ? were monitored continuously. The Duodenoscope was introduced through the ? mouth, and advanced to the duodenum and used to inject contrast into the ? ventral pancreatic duct. The ERCP was accomplished without difficulty. ? The patient tolerated the procedure well. Complications: ? None. Estimated Blood Loss: ?None. Attending Participation: I was present and participated during the entire ? procedure, including non-owens portions. Jose Roberto Patterson MD 07/08/2023 2:14:21 PM This report has been signed electronically. Number of Addenda: 0 Note Initiated On: 07/08/2023 11:09 AM Jose Roberto Patterson M.D. GI PROCEDURE O RDERABLES [employer] NA * (TTE) 2D ECHO DOPPLER COLOR (06/28/2023 2:01 PM CDT) Ejection Fraction 66 MC CV EIMS Sinus of Valsalva 35 MC CV EIMS Mid-Ascending Aorta 37 MC CV EIMS LV Mass Index 103 MC CV EIMS LV End-Diastolic Diameter 47 MC CV EIMS LV End-Systolic Diameter 30 MC CV EIMS LV End-Diastolic Volume 121 MC CV EIMS LV End-Systolic Volume 42 MC CV EIMS MV E Velocity 0.8 MC CV EIMS MV A Velocity 1 MC CV EIMS MV E/A 0.8 MC CV EIMS MV e' Velocity Medial 0.03 MC CV EIMS MV e' Velocity Lateral 0.04 MC CV EIMS MV E/e' Medial 26.7 MC CV EIMS MV E/e' Lateral 20 MC CV EIMS Left ventricular stroke volume index 54 MC CV EIMS Cardiac Output 5.39 MC CV EIMS Cardiac Index 3.39 MC CV EIMS LV Global Longitudinal Strain -20 MC CV EIMS LV Interventricular Septal Wall Thickness 10 MC CV EIMS LV Posterior Wall Thickness 10 MC CV EIMS LV Relative Wall Thickness 43 MC CV EIMS RV 4-Chamber Basal Diameter 35 MC CV EIMS RV 4-Chamber Mid Diameter 23 MC CV EIMS RV 4-Chamber Length 70 MC CV EIMS Tricuspid Annular S? 0.16 MC CV EIMS TR Vmax 2.17 MC CV EIMS RA Pressure 5 MC CV EIMS RV Systolic Pressure 24 MC CV EIMS Estimated diastolic pulmonary artery pressure 8 MC CV EIMS AV mean gradient 5 MC CV EIMS Aortic valve area 2.91 MC CV EIMS Aortic Valve Dimensionless Index 0.64 MC CV EIMS LA Volume Index 28 MC CV EIMS Aortic Valve Systolic Peak Velocity 1.4 MC CV EIMS Anatomical Region Laterality Modality Echocardiography 06/28/2023 12:2 6 PM CDT Impressions 06/28/2023 2:43 PM CDT LEFT VENTRICLE:Normal left ventricular chamber size. Abnormal left ventricular geometry with ??concentric left ventricular hypertrophy. Sigmoid ventricular septum with basal septal prominence: 18 mm No left ventricular outflow tract obstruction at rest or with Valsalva. Calculated 2-D biplane volumetric left ventricular ejection fraction of 66%. No regional wall motion abnormalities. Grade 1a/3 left ventricular diastolic dysfunction, consistent with mildly elevated left ventricular filling pressure. Global averaged left ventricular longitudinal peak systolic strain is normal at -20% (normal = more negative than -18%). RIGHT VENTRICLE:Normal right ventricular chamber size. Normal right ventricular systolic function. Estimated right ventricular systolic pressure 24 mmHg (right atrial pressure of 5 mmHg). ATRIA:Normal left atrial size. Left atrial volume index 28 ml/m2. Global averaged left atrial biplane longitudinal peak systolic strain is abnormal at 25.0% (normal is greater than 35%). Normal right atrial size by visual estimate. CARDIAC VALVES:Trileaflet aortic valve. Mildly thickened aortic valve. No aortic valve regurgitation. Mildly calcified mitral annulus. Mildly thickened mitral valve. Trivial mitral valve regurgitation. Normal pulmonary valve. Normal pulmonary valve systolic velocities. Trivial pulmonary valve regurgitation. Normal tricuspid valve. Mild tricuspid valve regurgitation. OTHER ECHO FINDINGS:Normal inferior vena cava size with normal inspiratory collapse (>50%). Normal sinus of Valsalva diameter of 35 mm. Normal mid ascending aorta diameter of 37 mm. Upper limit of normal of the mid ascending aorta, for age, sex and BSA is 37 mm. No abdominal aortic aneurysm. Normal abdominal aorta Doppler flow pattern. No atrial level shunt by color flow imaging. No intracardiac mass or thrombus, but the left atrial appendage cannot be visualized adequately with transthoracic echo to exclude thrombus in this location. Tiny, insignificant ??pericardial effusion. For the complete report, see the Order-Level Documents. Narrative 06/28/2023 2:43 PM CDT For the complete report, see the Order-Level Documents. Hemodynamics Heart Rate: 63 BPM Blood Pressure: 146 / 78 mmHg ECG: Sinus rhythm Final Impressions 1. Normal left ventricular chamber size, no regional wall motion abnormalities, calculated 2-D biplane volumetric ejection fraction of 66%, global averaged longitudinal peak systolic strain is normal at -20% (normal = more negative than -18%). 2. Abnormal left ventricular geometry with ??concentric left ventricular hypertrophy, grade 1 a/3 diastolic dysfunction, consistent with mildly elevated filling pressure. 3. Sigmoid ventricular septum with basal septal prominence: 18 mm. No left ventricular outflow tract obstruction at rest or with Valsalva. 4. Normal right ventricular chamber size, normal systolic function, estimated right ventricular systolic pressure 24 mmHg (right atrial pressure of 5 mmHg). 5. Global averaged left atrial biplane longitudinal peak systolic strain is abnormal at 25.0% (normal is greater than 35%). 6. Mild tricuspid valve regurgitation. 7. Tiny, insignificant ??pericardial effusion. 8. Compared to the report of 01/06/2018 no significant change has occurred. Procedure Note Tamar Mcmanus M.B.B.S., M.H.S. - 06/28/2023 For the complete report, see the Order-Level Documents. Hemodynamics Heart Rate: 63 BPM Blood Pressure: 146 / 78 mmHg ECG: Sinus rhythm Final Impressions 1. Normal left ventricular chamber size, no regional wall motionabnormalities, calculated 2-D biplane volumetric ejection fraction of 66%,global averaged longitudinal peak systolic strain is normal at -20%(normal = more negative than -18%). 2. Abnormal left ventricular geometry with concentric left ventricularhypertrophy, grade 1 a/3 diastolic dysfunction, consistent with mildlyelevated filling pressure. 3. Sigmoid ventricular septum with basal septal prominence: 18 mm. No leftventricular outflow tract obstruction at rest or with Valsalva. 4. Normal right ventricular chamber size, normal systolic function,estimated right ventricular systolic pressure 24 mmHg (right atrialpressure of 5 mmHg). 5. Global averaged left atrial biplane longitudinal peak systolic strainis abnormal at 25.0% (normal is greater than 35%). 6. Mild tricuspid valve regurgitation. 7. Tiny, insignificant pericardial effusion. 8. Compared to the report of 01/06/2018 no significant change hasoccurred. Findings LEFT VENTRICLE:Normal left ventricular chamber size. Abnormal leftventricular geometry with concentric left ventricular hypertrophy.Sigmoid ventricular septum with basal septal prominence: 18 mm No leftventricular outflow tract obstruction at rest or with Valsalva. Calculated2-D biplane volumetric left ventricular ejection fraction of 66%. Noregional wall motion abnormalities. Grade 1a/3 left ventricular diastolicdysfunction, consistent with mildly elevated left ventricular fillingpressure. Global averaged left ventricular longitudinal peak systolicstrain is normal at -20% (normal = more negative than -18%). RIGHT VENTRICLE:Normal right ventricular chamber size. Normal rightventricular systolic function. Estimated right ventricular systolicpressure 24 mmHg (right atrial pressure of 5 mmHg). ATRIA:Normal left atrial size. Left atrial volume index 28 ml/m2. Globalaveraged left atrial biplane longitudinal peak systolic strain is abnormalat 25.0% (normal is greater than 35%). Normal right atrial size by visualestimate. CARDIAC VALVES:Trileaflet aortic valve. Mildly thickened aortic valve. Noaortic valve regurgitation. Mildly calcified mitral annulus. Mildlythickened mitral valve. Trivial mitral valve regurgitation. Normalpulmonary valve. Normal pulmonary valve systolic velocities. Trivialpulmonary valve regurgitation. Normal tricuspid valve. Mild tricuspidvalve regurgitation. OTHER ECHO FINDINGS:Normal inferior vena cava size with normal inspiratorycollapse (>50%). Normal sinus of Valsalva diameter of 35 mm. Normal midascending aorta diameter of 37 mm. Upper limit of normal of the midascending aorta, for age, sex and BSA is 37 mm. No abdominal aorticaneurysm. Normal abdominal aorta Doppler flow pattern. No atrial levelshunt by color flow imaging. No intracardiac mass or thrombus, but theleft atrial appendage cannot be visualized adequately with transthoracicecho to exclude thrombus in this location. Tiny, insignificantpericardial effusion. For the complete report, see the Order-Level Documents. Anna Santiago APRN, C.N.P., M.S.N. CV ECHO PROCEDURES * NT-Pro B-Type Natriuretic Peptide (BNP) (06/28/2023 10:28 AM CDT) [facility] NT-Pro BNP 93 <=540 pg/mL 06/28/2023 11:55 AM CDT DTL Comment: NT-proBNP values less than 300 pg/mL have a 99% negative predictive value for excluding acute congestive heart failure. A cutoff of 1200 pg/mL for patients with an eGFR<60 yields a diagnostic sensitivity and specificity of 89% and 72% for acute congestive heart failure. A diagnostic NT-proBNP cutoff of 900 pg/mL has been suggested in adults 50-75 years of age in the absence of renal failure. Blood (Blood, Venous) 06/28/2023 10:28 AM CDT 06/28/2023 11:00 AM CDT Anna Santiago APRN, C.N.P., M.S.N. LAB BLOOD ADD-ON [address] [address], [facility] [place] [address] * (ABNORMAL) CBC with Differential, Blood (06/28/2023 10:28 AM CDT) [facility] Hemoglobin 12.5 11.6 - 15.0 g/dL 06/28/2023 11:00 AM CDT DTL Hematocrit 36.8 35.5 - 44.9 % 06/28/2023 11:00 AM CDT DTL Erythrocytes 3.83(L) 3.92 - 5.13 x10(12)/L 06/28/2023 11:00 AM CDT DTL MCV 96.1 78.2 - 97.9 fL 06/28/2023 11:00 AM CDT DTL RBC Distrib Width 12.2 12.2 - 16.1 % 06/28/2023 11:00 AM CDT DTL Platelet Count 289 157 - 371 x10(9)/L 06/28/2023 11:00 AM CDT DTL Leukocytes 7.3 3.4 - 9.6 x10(9)/L 06/28/2023 11:00 AM CDT DTL Neutrophils 2.47 1.56 - 6.45 x10(9)/L 06/28/2023 11:00 AM CDT DHPM Lymphocytes 3.08(H) 0.95 - 3.07 x10(9)/L 06/28/2023 11:00 AM CDT DTL Monocytes 0.63 0.26 - 0.81 x10(9)/L 06/28/2023 11:00 AM CDT DTL Eosinophils 1.09(H) 0.03 - 0.48 x10(9)/L 06/28/2023 11:00 AM CDT DTL Basophils 0.06 0.01 - 0.08 x10(9)/L 06/28/2023 11:00 AM CDT DTL Blood (Blood, Venous) 06/28/2023 10:28 AM CDT 06/28/2023 10:46 AM CDT Sandra Momin APRNN.P., M.S.N. LAB BLOOD ADD-ON [facility] [place] [address] [place] [address], [facility] D[facility] [address] [place], [place] [id number] [place] [address] 200 [place] [address] * (ABNORMAL) Comprehensive Metabolic Panel (06/28/2023 10:28 AM CDT) [facility] Potassium, S 4.3 3.6 - 5.2 mmol/L 06/28/2023 11:55 AM CDT DTL Sodium, S 137 135 - 145 mmol/L 06/28/2023 11:55 AM CDT DTL Chloride, S 100 98 - 107 mmol/L 06/28/2023 11:55 AM CDT DTL Bicarbonate, S 28 22 - 29 mmol/L 06/28/2023 11:55 AM CDT DTL Anion Gap 9 7 - 15 06/28/2023 11:55 AM CDT DTL BUN (Blood Urea Nitrogen), S 15 6 - 21 mg/dL 06/28/2023 11:55 AM CDT DTL Creatinine 0.73 0.59 - 1.04 mg/dL 06/28/2023 11:55 AM CDT DTL Estimated GFR (eGFR) 89 >=60 mL/min/BS A 06/28/2023 11:55 AM CDT DTL Comment: Estimated GFR calculated using the 2020 CKD_EPI creatinine equation. Calcium, Total, S 9.5 8.8 - 10.2 mg/dL 06/28/2023 11:55 AM CDT DTL Glucose, S 401(CH) 70 - 140 mg/dL 06/28/2023 11:55 AM CDT DTL Protein, Total, S 6.1(L) 6.3 - 7.9 g/dL 06/28/2023 11:55 AM CDT DTL Albumin, S 3.9 3.5 - 5.0 g/dL 06/28/2023 11:55 AM CDT DTL Aspartate Aminotransferase (AST), S 22 8 - 43 U/L 06/28/2023 11:55 AM CDT DTL Alkaline Phosphatase, S 108(H) 35 - 104 U/L 06/28/2023 11:55 AM CDT DTL Alanine Aminotransferase (ALT), S 26 7 - 45 U/L 06/28/2023 11:55 AM CDT DTL Bilirubin, Total, S <0.2 0.0 - 1.2 mg/dL 06/28/2023 11:55 AM CDT DTL Blood (Blood, Venous) 06/28/2023 10:28 AM CDT 06/28/2023 11:00 AM CDT Anna Santiago APRN C.N.P., M.S.N. LAB BLOOD ADD-ON [facility] [place] [address] [place] [address], [place] DTL [facility] [address] [place] [address] * ECG 12 Lead (06/28/2023 9:58 AM CDT) Ventricular Rate ECG/Min 73 BPM MUSE LA Interval 174 ms MUSE QRSD Interval 102 ms MUSE QT Interval 424 ms MUSE QTC Interval 467 ms MUSE P Bet[place]da 64 degrees MUSE R Bet[place]da 79 degrees MUSE T Wave [place]da 71 degrees MUSE 06/28/2023 9:58 AM CDT 06/28/2023 10:00 AM CDT Impressions MUSE - 06/28/2023 10:00 AM CDT Normal sinus rhythm Nonspecific ST and T wave abnormality When compared with ECG of 05-JAN-2023 16:54, Anterior forces have increased Reviewed by DANNY Gold Narrative Procedure Note Camacho Olvera Jr., M.D. - 06/28/2023 IMPRESSION: Normal sinus rhythm Nonspecific ST and T wave abnormality When compared with ECG of 05-JAN-2023 16:54, Anterior forces have increased Reviewed by DANNY Gold Anna Santiago APRN, C.N.P., M.S.N. ECG ORDERABLES Performing Organization Address City/[facility]/ZIP Co de Phone Number MUSE NA * XR chest 2V-Outside Chest Xray (06/06/2023 10:35 AM CORE DRILLING SUPERVISOR) Narrative IIMS - 06/12/2023 3:33 PM CDT This order has been created and auto-finalized to support the import of outside images. If available, original interpretation can be found on the Media Tab in Chart Review, in Document Viewer, or as an image in QREADS. If a re-interpretation or overread is required please follow defined workflow. ?? Provider Not In System IMG DIAGNOSTIC IM AGING PROCEDURES IIOK NA * (ABNORMAL) Hemoglobin A1c (02/19/2023 6:17 AM CORE DRILLING SUPERVISOR) Hemoglobin A1c, B 7.8(H) 4.0 - 5.6 % 02/19/2023 7:11 AM CORE DRILLING SUPERVISOR DTL Comment: Hemoglobin A1c values greater than or equal to 6.5 percent are diagnostic for diabetes mellitus. ??Diagnosis should be confirmed by repeat testing. ??In diabetic patients, HbA1c goals should be discussed with healthcare provider. Blood (Blood, Venous) 02/19/2023 6:17 AM CORE DRILLING SUPERVISOR 02/19/2023 6:33 AM CORE DRILLING SUPERVISOR Luis Andrew M.D., M.P.H. LAB BLOOD ADD-ON [facility] [place] [address] [place] [address], [facility] [address] [place] [address] * BI Breast Screening (05/11/2011 2:00 PM CORE DRILLING SUPERVISOR) Anatomical Region Laterality Modality Breast N/A Mammography 05/11/2011 2:00 PM CORE DRILLING SUPERVISOR Impressions 05/11/2011 2:46 PM CORE DRILLING SUPERVISOR NEGATIVE There is no mammographic evidence of malignancy. ?? RECOMMENDATION: A 1 year screening mammogram is recommended. ?? The patient will receive a letter notifying her of the results. ?? Justin Landa M.D. ? dla/penrad:05/11/2011 14:46:05 ?? letter sent: 1S/2S - Negative Screen ?? Mammogram BI-RADS: 1 Negative Electronically signed by: ?? Reba ??Syeda LOIUS ??[id number] 11-May-2011 14:46 Narrative 05/11/2011 2:46 PM CORE DRILLING SUPERVISOR 11-May-2011 14:00:00 ??Exam: B MG /Screening Exam Indications: screening ORIGINAL REPORT - 11-May-2011 14:46:00 EXAM: BILATERAL DIGITAL SCREENING MAMMOGRAM WITH CAD: 05/11/2011 HISTORY/INDICATION: Screening. ?? Current study was also evaluated with a Computer Aided Detection (CAD) system. ?? COMPARISON: ??Comparison is made to prior exams. ?? DENSITY: ??(D1) The tissue of both breasts is almost entirely fat. FINDINGS: ??No significant masses, calcifications, or other findings ?? are seen in either breast. ?? Procedure Note Macrina Landa M.D. - 06/29/2017 11-May-2011 14:00:00 Exam: B MG /Screening Exam Indications: screening ORIGINAL REPORT - 11-May-2011 14:46:00 EXAM: BILATERAL DIGITAL SCREENING MAMMOGRAM WITH CAD: 05/11/2011 HISTORY/INDICATION: Screening. Current study was also evaluated with a Computer Aided Detection (CAD) system. COMPARISON: Comparison is made to prior exams. DENSITY: (D1) The tissue of both breasts is almost entirely fat. FINDINGS: No significant masses, calcifications, or other findings are seen in either breast. IMPRESSION: NEGATIVE There is no mammographic evidence of malignancy. RECOMMENDATION: A 1 year screening mammogram is recommended. The patient will receive a letter notifying her of the results. Justin Landa M.D. dla/penrad:05/11/2011 14:46:05 letter sent: 1S/2S - Negative Screen Mammogram BI-RADS: 1 Negative Electronically signed by: Reba Landa MD [id number] 11-May-2011 14:46 Nathaly Breaux M.D. IMG BI LA OCEDURES * (ABNORMAL) Microalbumin, Random, Urine (05/04/2011 12:00 PM CORE DRILLING SUPERVISOR) Creatinine, Random, U 74.9 30.0 - 125.0 MGDL POWERCHART HXU Albumin % 24.4 12.0 - 30.0 MGL POWERCHART Albumin/Creatin ine Ratio 33(H) 0 - 25 MGGM POWERCHART Urine 05/04/2011 12:0 0 PM CORE DRILLING SUPERVISOR Nathaly Breaux M.D. LAB URINE ORDERABLES POWERCHART * CT Chest with IV Contrast (03/13/2011 1:35 PM CORE DRILLING SUPERVISOR) Anatomical Region Laterality Modality Chest N/A Computed Tomogra phy 03/13/2011 1:35 PM CORE DRILLING SUPERVISOR Impressions 03/13/2011 1:56 PM CORE DRILLING SUPERVISOR No pulmonary emboli. FINDINGS: Suboptimal contrast bolus timing. However, no pulmonary emboli are seen. There are minimal faint ground glass infiltrates in both upper lungs anteriorly which may represent atelectasis versus small airway inflammation. Slight linear atelectasis in the left upper lobe inferiorly. The lungs are otherwise clear. Mild diffuse fatty infiltration of the liver. Remainder negative. [id number] Electronically signed by: ?? Mello Rivera MD [id number] 13-Mar-2011 13:56 Narrative 03/13/2011 1:56 PM CORE DRILLING SUPERVISOR 13-Mar-2011 13:35:00 ??Exam: CT CHEST w Indications: SOB and chest pain, recent hospital stay ORIGINAL REPORT - 13-Mar-2011 13:56:00 EXAM: CT scan of the chest with IV contrast: CONCLUSION/ Procedure Note Stacie Rivera M.D. - 06/29/2017 13-Mar-2011 13:35:00 Exam: CT CHEST w Indications: SOB and chest pain, recent hospital stay ORIGINAL REPORT - 13-Mar-2011 13:56:00 EXAM: CT scan of the chest with IV contrast: CONCLUSION/IMPRESSION: No pulmonary emboli. FINDINGS: Suboptimal contrast bolus timing. However, no pulmonary emboliare seen. There are minimal faint ground glass infiltrates in both upperlungs anteriorly which may represent atelectasis versus small airwayinflammation. Slight linear atelectasis in the left upper lobe inferiorly.The lungs are otherwise clear. Mild diffuse fatty infiltration of theliver. Remainder negative. 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 See document viewer. * Full Code (Latest Code Status on File) Date Activated Date Inactivated Comments 10/23/2022 2:51 PM 10/25/2022 1:26 AM Question Answer Comments Full Code: Discussed Care Teams Electric Blanket Wirer Relationship Specialty Start Date End Date Elsewhere, Pcp PCP - General Internal Medicine 06/26/22
--- OUTSIDE RECORDS SUMMARY | 2023-08-30 10:55 | XMS_ITS | Encounter Summary ---
Author Organization [facility] Address [address] [place] [address] Care Team Providers Care Bottom Saw Operator Name Role Phone Elsewhere, Pcp Primary Care Provider Unavailabl e Encounter Details Date Type Department Care Team (Late st Contact Info) Description 07/08/2023 11:17 AM CDT Anesthesia Event Division of Gastroenterology in [place], [place] [address] [place] [phone] Elizabeth May APRN, TRANSIT MECHANIC [address] [place] [phone] Marvel Castaneda M.D. [address] [place] [phone] Anesthesia Record Procedure Summary Procedure Name Responsible Anesthesiologist Anesthesia Start Time Anesthesia Stop Time ERCP Elizabeth May APRN, CRNA 07/08/23 1117 07/08/23 1225 Events Date Time Event Comment 07/08/2023 1117 An Start Machine/Equipme nt Checked Infection Precautions Followed Procedure/Site Verified NPO Status Verified Supine Standard ASA Monitors Applied 1121 An Induction 1123 An Intubation 1123 Turnover to Proceduralist 1133 Proc Start 1216 Turnover to ANE Staff 1217 Proc Fin 1220 Airway Removal Criteria Met 1220 Extubation/Airway Removed 1221 an stop data 1225 An End I completed my handoff to [...] Total fentanyl injection 50 mcg/mL 50 mcg lidocaine 2% (mg) injection 60 mg rocuronium 10 mg/mL injection 50 mg phenylephrine 100 mcg/mL injection 100 m cg ondansetron 4 mg/2 mL injection 4 mg sugammadex 100 mg/mL injection 200 mg propofol 10 mg/mL infusion 295.74 mg propofol 10 mg/mL injection 150 mg dexAMETHasone (DECADRON) injection 4 mg/ mL 4 mg Lactated Ringers Free Drip 500 mL * Agents No agents on file. * Blood No blood administrations on file. Lines, Drains, and Airways Type Details Placement Removal Peripheral IV Placement Date: 11/22; Placement Time: 1011; Catheter Size: 20 G; Orientation: Lower, Posterior, Right; Location: Forearm; Removal Date: 07/08/23; Removal Time: 1305; Removal Reason: Patient discharged 07/08/23 1011 by Nathaly Ruggiero, R.NCarlos 07/08/23 1305 by Fiona Restrepo RCarlosN. ETT Placement Date: 11/22; Placement Time: 1123 (created via procedure documentation); Mask Ventilation: Easy mask; Technique: Video laryngoscopy; Type: Standard ETT; Single Lumen Tube Size: 7 mm; Cuffed: Yes; Location: Oral; Grade View: Grade 1; Insertion Attempts: 1; Placement Verification: Bilateral breath sounds, Positive ETCO2, Symmetrical chest wall movement; Removal Date: 07/08/23; Removal Time: 1220 07/08/23 1123 by Ludmila Vasquez APRN, CRNA, SYLVIA 07/08/23 1220 by Elizabeth May APRN, CRNA documented in this encounter Social History Tobacco Use Types Packs/Day Years Used Date Smoking Tobacco: Every Day Cigarettes 0.3 55.4 Started: 04/01/1968 Smokeless Tobacco: Never Alcohol Use [...] living situation today? I have a [facility] place to live 01/01/2023 Sex and Gender Information Value Date Recorded Sex Assigned at Female 01/01/2023 9:08 AM CDT Gender Identity Female 01/01/2023 9:08 AM CDT Sexual Orientation Straight 01/01/2023 9: 08 AM CDT documented as of this encounter OR Notes * Anesthesia Postprocedure Evaluation - Elizabeth May APRN, CRNA - 07/08/2023 12:25 PM CDT Patient: Yary rPince Procedure Summary Date: 07/08/23 Room / Location: Division of Gastroenterology in [place], [place] Anesthesia Start: 1117 Anesthesia Stop: 1225 Procedure: ERCP Diagnosis: Pancreatitis Chronic (HCC) Scheduled Providers: Elizabeth May APRN, CRNA; Jose Roberto Patterson M.D. Responsible Provider:Elizabeth May APRN, CRNA Anesthesia Type: general ASA Status: 3 Anesthesia Type: general Last vitals Vitals Value Taken Time BP 144/85 07/08/23 1223 Temp Pulse 65 07/08/23 1225 Resp 14 07/08/23 1225 SpO2 96 % 07/08/23 1225 Vitals shown include unfiled device data. Please reference Vitals flowsheet for most recent vital signs. Anesthesia Post Evaluation Cardiovascular status: hemodynamics (HR & BP) acceptable Respiratory status: patent airway with spontaneous effort Temperature: normothermic Oxygen requirements: room air Level of consciousness: awake Pain score: pain adequately controlled and/or at baseline Post Op nausea/vomiting: none Hydration status: euvolemic * Anesthesia Procedure Notes - Ludmila Vasquez APRN, CRNA, MNA - 07/08/2023 11:31 AM CDTAssociated Order(s): Airway Airway Date/Time: 07/08/2023 11:23 AM Performed by: Ludmila Vasquez APRN, CRNA, MNA Authorized by: Simone Nichols APRN, CRNA, DNAP Patient location during procedure: OR / Procedure Area PROCEDURE DETAILS: Mask difficulty assessment: easy mask Final airway type: video laryngoscope Laryngeal Manipulation: no Final best view of glottic structures - Cormack/Lehane Score: grade 1 ETT location: oral VL device: glide scope [place] scope blade size: 3 Tube size: 7 [...] Procedure outcome: successful Notable Events: no complications * Anesthesia Preprocedure Evaluation - Marvel Castaneda M.D. - 07/08/2023 10:13 AM CDT Preprocedure Anesthesia & H&P Assessment Procedure Summary Date/Time: 07/08/23 1100 Scheduled providers: Elizabeth May APRN, CRNA; Jose Roberto Patterson M.D. Procedure: ERCP Diagnosis: Pancreatitis Chronic (HCC) [K86.1] Location: Division of Gastroenterology in [place], [place] Pertinent components of the patient's history [...] Nervous (+) Multiple Sclerosis (HCC) Digestive (+) Pancreatitis Chronic Recurrent (HCC) Psychiatric (+) Bipolar Disorder (HCC) OBJECTIVE PHYSICAL EXAMINATION Airway (HEENT) Mallampati: III TM Distance: >3 FB Neck ROM: Full Mouth Opening: >3 cm Cardiovascular Rhythm: Regular Rate: Normal Cardiovascular Assessment: cardiovascular normal Functional Capacity: <4 METS Pulmonary Pulmonary Assessment: Clear General / Constitutional Constitutional Assessment: Normal General State of Health:: healthy appearing and calm Dental Dental Assessment: dentition in poor repair ASSESSMENT / PLAN ANESTHESIA PLAN ASA: 3 Anesthesia Plan: general Patient seen and allergies reviewed, anesthesia plan and risks discussed directly with patient /legal guardian or through an motor vehicle parts interpreter. Risks/Benefits/Alternatives of Blood transfusion discussed with patient / legal guardian, includingan opportunity to ask questions and/or decline some or all transfusion therapies. The patient / legal guardian consented to the use of all blood products, as deemed medically necessary Approval to Proceed: approved for anesthesia documented in this encounter Plan of Treatment Upcoming Encounters Date Type Department Care Team (Late st Contact Info) Description 10/14/2023 10:30 AM CDT Appointment Division of Gastroenterology in [place], [place] [address] [place] [phone] Jose Roberto Patterson M.D. [address] [place] [phone] documented as of this encounter Procedures Procedure Name Priority Date/Time Associated Diagnosis Comments LDA ANE ENDOTRACHEAL AIRWAY Routine 07/08/2023 11:23 AM CDT documented in this encounter Results * LDA ANE ENDOTRACHEAL AIRWAY (07/08/2023 11:23 [...] ETT location: oral VL device: glide scope [place] scope blade size: 3 Tube size: 7 [...] Nichols APRN, CRNA, DNAP ANESTH ESIA ORDERABLES documented in this encounter Visit Diagnoses Not on filedocumented in this encounter Administered Medications Inactive Administered Medications - up to 3 most recent administrations Medication Order MAR Action Action Date Dose Rate Site dexAMETHasone injection (DECADRON) intravenous, As needed, Starting on Sat07/08/23 at 1134, Anesthesia Intra-op Given 07/08/2023 11:34 AM CDT 4 mg fentaNYL injection (SUBLIMAZE) intravenous, As needed, Starting on Sat07/08/23 at 1121, Anesthesia Intra-op Given 07/08/2023 12:09 PM CDT 25 mcg Given 07/08/2023 11:21 AM CDT 25 mcg Lactated Ringer's intravenous, Continuous Infusion: Per Instructions PRN, Starting on Sat07/08/23 at 1117, Anesthesia Intra-op New Bag 07/08/2023 11:17 AM CDT lidocaine (PF) (cardiac) injection intravenous, As needed, Starting on Sat07/08/23 at 1121, Anesthesia Intra-op Given 07/08/2023 11:21 AM CDT 60 mg ondansetron (PF) injection (ZOFRAN) intravenous, As needed, Starting on Sat07/08/23 at 1209, Anesthesia Intra-op Given 07/08/2023 12:09 PM CDT 4 mg phenylephrine injection intravenous, As needed, Starting on Sat07/08/23 at 1134, Anesthesia Intra-op Given 07/08/2023 11:34 AM CDT 100 mcg propofol 10 mg/mL infusion (DIPRIVAN) intravenous, Continuous Infusion: Per Instructions PRN, Starting on Sat07/08/23 at 1121, Anesthesia Intra-op Rate/Dose Change 07/08/2023 11:50 AM CDT 90 mcg/kg/min 30.132 mL/hr Rate/Dose Change 07/08/2023 11:37 AM CDT 100 mcg/kg/min 33 .48 mL/hr Rate/Dose Change 07/08/2023 11:29 AM CDT 125 mcg/kg/min 41 .85 mL/hr propofoL injection (DIPRIVAN) intravenous, As needed, Starting on Sat07/08/23 at 1122, Anesthesia Intra-op Given 07/08/2023 11:23 AM CDT 50 mg Given 07/08/2023 11:22 AM CDT 100 mg rocuronium injection (ZEMURON) intravenous, As needed, Starting on Sat07/08/23 at 1123, Anesthesia Intra-op Given 07/08/2023 11:23 AM CDT 50 mg sugammadex injection (BRIDION) intravenous, As needed, Starting on Sat07/08/23 at 1210, Anesthesia Intra-op Given 07/08/2023 12:10 PM CDT 200 mg documented in this encounter Additional Health Concerns Assessment Noted Time PHQ-9 Depression Total Score: 21 012 10:33 AM FINAL CANOE INSPECTOR documented as of this encounter Care Teams Bottom Saw Operator Relationship Specialty Start Date End Date Elsewhere, Pcp PCP - General Internal Medicine 06/26/22 documented as of this encounter
--- OUTSIDE RECORDS SUMMARY | 2023-08-30 10:55 | XMS_ITS | Encounter Summary ---
Author Organization [facility] Address [address] [place] [address] Care Team Providers Care Emt P Name Role Phone Elsewhere, Pcp Primary Care Provider Unavailabl e Reason for Referral * Outpatient (Routine) - Authorized Specialty Diagnoses / Procedures Referred By Olivia gonzalez Referred To Contact Diagnoses Pain Abdominal Chronic Procedures ERCP Jose Roberto Patterson M.D. [address] [place] [phone] [facility] Referral ID Status Reason Start Date Expiration Date V isits Requested Visits Authorized [id number] Authorized 07/09/2023 07/08/2024 1 1 Encounter Details Date Type Department Care Team (Latest Contact Info) Description 07/09/2023 Orders Only Division of Gastroenterology in [place], [place] [address] [place] [phone] Jose Roberto Patterson M.D. [address] [place] [phone] Pain Abdominal Chronic (Primary Dx) Social History Tobacco Use Types [...] AM CDT Appointment Division of Gastroenterology in [place], [place] [address] [place] [address] Jose Roberto Patterson M.D. 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
--- OUTSIDE RECORDS SUMMARY | 2023-08-30 10:55 | XMS_ITS | Encounter Summary ---
Author Organization [facility] Address [address] [place] [address] Care Team Providers Care E Learning Designer Name Role Phone Elsewhere, Pcp Primary Care Provider Unavailabl e Reason for Referral * Outpatient (Routine) - Closed Specialty Diagnoses / Procedures Referred By Contac t Referred To Contact Diagnoses Pancreatitis Chronic (HCC) Procedures ERCP Jose Roberto Patterson M.D. 200 [place] [address] [facility] Referral ID Status Reason Start Date Expiration Date Visits Re quested Visits Authorized [id number] Closed 05/09/2023 05/08/2024 1 1 Reason for Visit * Outpatient (Routine) - Closed Specialty Diagnoses / Procedures Referred By Olivia gonzalez Referred To Contact Diagnoses Pancreatitis Chronic (HCC) Procedures ERCP Jose Roberto Patterson M.D. [address] [place] [address] [facility] Referral ID Status Reason Start Date Expiration Date Visits Re quested Visits Authorized [id number] Closed 05/09/2023 05/08/2024 1 1 Encounter Details Date Type Department Care Team (Latest Contact Info) Description 07/08/2023 9:36 AM CDT - 07/08/2023 11:06 AM CDT Hospital Encounter Division of Gastroenterology in [place], [place] [address] [place] [phone] Jose Roberto Patterson M.D. [address] [place] [phone] Elizabeth May APRN, WORKERS COMPENSATION ADJUSTER [address] [place] [phone] Pancreatitis Chronic (HCC) Discharge Disposition: Home or [...] Sign Reading Time Taken Comments Blood Pressure 133/79 07/08/2023 10:47 AM CDT Pulse 74 07/08/2023 10:47 AM CDT Temperature - - Respiratory Rate 18 07/08/2023 10:47 AM CDT Oxygen Saturation 96% 07/08/2023 10:47 AM CDT Inhaled Oxygen Concentration - - Weight - - Height - - Body Mass Index - - documented in this encounter Discharge Instructions * Attachments The following attachments cannot be sent through Care Everywhere. * About Your ERCP (Endoscopic Retrograde Cholangiopancreatography) (Libyan) documented in this encounter Medications at Time of Discharge Medication Sig Dispensed Refills Start Date End Date Accu-Chek Guide test strips 3 (three) times a day. for testing 07/25/2022 acetaminophen (TYLENOL) 500 mg tablet Take 1,000 mg by mouth every 6 (six) hours as needed. 01/08/[address] tablet Take 325 mg by mouth every 6 (six) hours as needed for pain. BD Ultra-Fine Micro Pen Needle 32 gauge x 1/4 needle 04/29/2023 clotrimazole (LOTRIMIN) 1 % cream APPLY TO AFFECTED AREA(S) TWO TIMES A DAY FOR 7 DAYS 04/19/2023 cyclobenzaprine (FLEXERIL) 10 mg tablet Take 10 mg by mouth 3 (three) times a day as needed. 07/26/2022 donepeziL (ARICEPT) 5 mg tablet Take by mouth daily. 05/17/2021 DULoxetine (CYMBALTA) [address] capsule Take 30 mg by mouth every morning. fentaNYL (DURAGESIC) 12 mcg/hr patch States it fell off 01/31/2023 hydrocortisone (INSTACORT) 0.5 % cream ONE APPLICATION TOPICALLY TWICE DAILY NEEDED FOR RASH 04/19/2023 insulin glargine (LANTUS) 100 unit/mL injection Inject 30 Units under the skin 2 (two) times a day. Full dose last night. None today insulin lispro 100 unit/mL injection Not started yet 04/29/2023 losartan (COZAAR) 100 mg tablet Take 1 tablet by mouth at bedtime. 01/24/2015 montelukast (SINGULAIR) 10 mg tablet Take 10 mg by mouth at bedtime. nystatin (MYCOSTATIN) 100,000 unit/mL suspension TAKE 4MLS BY MOUTH FOUR TIMES DAILY FOR 7 DAYS; ADMINISTER ONE HALF DOSE IN EACH SIDE OF THE MOUTH 04/19/2023 ondansetron ODT (ZOFRAN-ODT) 4 mg disintegrating tablet DISSOLVE ONE TABLET ON THE TONGUE TWO TO THREE TIMES PER DAY NEEDED FOR NAUSEA AND VOMITING FOR 3 DAYS 09/17/2022 oxyBUTYnin (DITROPAN-XL) 10 mg 24 hr tablet Take 10 mg by mouth at bedtime. oxyCODONE (ROXICODONE) 10 mg IR tablet TAKE ONE-HALF TABLET BY MOUTH FOUR TIMES A DAY NEEDED FOR PAIN FOR 14 DAYS 10/16/2022 oxyCODONE (ROXICODONE) 5 mg immediate release tablet Take 5 mg by mouth every 6 (six) hours as needed for pain. For 30 days. QUEtiapine (SEROquel) 100 mg tablet Take 100 mg by mouth at bedtime. 06/21/2023 QUEtiapine (SEROquel) 400 mg tablet Take 400 mg by mouth at bedtime. 07/11/2013 simvastatin (ZOCOR) 40 mg tablet Take 40 mg by mouth at bedtime. SUMAtriptan (IMITREX) 100 mg tablet Take 100 mg by mouth as needed for migraine. May repeat dose once in 2 hours if migraine is unresolved. Do not exceed 200 mg in 24 hours. varenicline (CHANTIX CECILE) 0.5 mg (11)- 1 mg (42) tablet Use as directed on package instructions, try to quit smoking after 1 week. 53 tablet 01/02/2023 documented as of this encounter Plan of Treatment Upcoming Encounters Date Type Department Care Team (Late st Contact Info) Description 10/14/2023 10:30 AM CDT Appointment Division of Gastroenterology in [place], [place] [address] [place] [address] Jose Roberto Patterson M.D. [address] [place] [address] Scheduled Orders Name Type Priority Associated Diagnoses Orde r Schedule INR, POCT Point of Care Testing-Docked Device STAT STAT for 1 Occurrenc es starting 07/08/2023 until 07/08/2023 documented as of this encounter Procedures Procedure Name Priority Date/Time Associated Diagnosis Comments GLUCOSE POCT, B Routine 07/08/2023 12:30 PM CDT ERCP Routine 07/08/2023 11:09 AM CDT Pancreatitis Chronic (HCC) ERCP Routine 07/08/2023 11:09 AM CDT Pancreatitis Chronic (HCC) GLUCOSE POCT, B Routine 07/08/2023 10:31 AM CDT GLUCOSE POCT, B Routine 07/08/2023 10:06 AM CDT documented in this encounter Results * Glucose, POCT (07/08/2023 12:30 PM CDT) Glucose, POCT, B 86 70 - 140 mg/dL 07/08/2023 12:43 PM CDT PCMO Blood 07/08/2023 12:3 0 PM CDT 07/08/2023 12:43 PM CDT Unknown Provider LAB POCT ORDERABLES- MANUAL [facility] 200 [place] [address], [place] PCMO [facility] POC 200 [place] [address] * ERCP (07/08/2023 11:09 AM CDT) 07/08/2023 11:0 9 AM CDT Impressions [facility] - 07/08/2023 5:09 PM CDT Post-op Diagnoses: [...] placed in the main pancreatic duct. Narrative [facility] - 07/08/2023 5:09 PM CDT Gonda 2 [...] A pancreatic stent was visible on the inside sales person film. The esophagus was ? successfully intubated [...] participated during the entire ? procedure, including non-ownes portions. Jose Roberto Patterson MD 07/08/2023 2:14:21 PM This report has been signed electronically. Number of Addenda: 0 Note Initiated On: 07/08/2023 11:09 AM Jose Roberto Patterson M.D. GI PROCEDURE O RDERABLES [facility] NA * (ABNORMAL) Glucose, POCT (07/08/2023 10:31 AM CDT) Glucose, POCT, B 150(H) 70 - 140 mg/dL 07/08/2023 10:32 AM CDT PCMO Site Capillary 07/08/2023 10:32 AM CDT PCMO Blood 07/08/2023 10:3 1 AM CDT 07/08/2023 10:33 AM CDT Unknown Provider LAB POCT ORDERABLES- MANUAL Performing Organization Address [facility] Co de Phone Number POC [facility] [address] [facility] 200 [place] [address] * Glucose, POCT (07/08/2023 10:06 AM CDT) Glucose, POCT, B 74 70 - 140 mg/dL 07/08/2023 10:32 AM CDT PCMO Blood 07/08/2023 10:0 6 AM CDT 07/08/2023 10:33 AM CDT Unknown Provider LAB POCT ORDERABLES- MANUAL Performing Organization Address [facility] Co de Phone Number [facility]OC [facility] [address] [facility] 200 [place] [address] documented in this encounter Visit Diagnoses Diagnosis Pancreatitis Chronic (HCC) documented in this encounter Administered Medications Inactive Administered Medications - up to 3 most recent administrations Medication Order MAR Action Action Date Dose Rate Site dextrose 50 % injection 12.5 g 12.5 g, intravenous, Once, On Sat07/08/23 at 1045, For 1 dose, Pre-Op Given 07/08/2023 10:18 AM CDT 12.5 g diclofenac suppository As needed, Starting on Sat07/08/23 at 1217, Intra-Op Given 07/08/2023 12:17 PM CDT 100 mg Rectum Lactated Ringer's 20 mL/hr, intravenous, Continuous, Starting on Sat07/08/23 at 1200, PACU & Post-Op Continued from OR 07/08/2023 12:27 PM CDT 20 mL/hr 20 mL/hr documented in this encounter Additional Health Concerns Assessment Noted Time PHQ-9 Depression Total Score: 21 012 10:33 AM TAILINGS DAM PUMPER documented as of this encounter Care Teams E Learning Designer Relationship Specialty Start Date End Date Elsewhere, Pcp PCP - General Internal Medicine 06/26/22 documented as of this encounter
--- OUTSIDE RECORDS SUMMARY | 2023-08-30 10:55 | XMS_ITS ---
Author Organization [facility] Address [address] [place] [address] Care Team Providers Care [employer] Weigher Name Role Phone Unavailable Unavailable Unavailable Surgery Details Not on file Complications Check Surgery Details section. Procedure Estimated Blood Loss Check Surgery Details section. Procedure Findings Check Surgery Details section. Procedure Specimens Taken Check Surgery Details section.
--- OUTSIDE RECORDS SUMMARY | 2023-08-30 10:55 | XMS_ITS | Encounter Summary ---
Author Organization [facility] Address [address] [place] [phone] Care Team Providers Care Financial Services Agent Name Role Phone Elsewhere, Pcp Primary Care Provider Unavailabl e Reason for Visit * Reason Onset Date Comments Abnormal Test Result 06/28/2023 Elevated gl ucose Encounter Details Date Type Department Care Team (Latest Contact Info) Description 06/28/2023 Clinical Communication Department of Cardiovascular Medicine in [place], [place] [address] [place] [phone] Fiona Simms R.N. [address] [place] [phone] Abnormal Test Result (Elevated glucose) Social History Tobacco Use Types Packs/Day Years Used Date Smoking Tobacco: Every Day Cigarettes 0.5 55 Started: 04/01/1968; Last attempted to quit: 03/31/2023 Smokeless Tobacco: Never Alcohol Use Standard [...] your living situation today? I have a [facility] place to live 01/01/2023 Sex and Gender Information Value Date Recorded Sex Assigned at Female 01/01/2023 9:08 AM CDT Gender Identity Female 01/01/2023 9:08 AM CDT Sexual Orientation Straight 01/01/2023 9: 08 AM CDT documented as of this encounter Miscellaneous Notes * Telephone Encounter - Fiona Simms R.N. - 06/28/2023 12:47 PM CDT Test Result Information: No results found from the In Basket message. Lab called with a critical result: Glucose 401 drawn at 10:28 am called at 1300. There was a call attempt and message left. Another attempt will be made. Disposition/Recommendation: recommended continue engagement in self-management activities Information/Education: not applicable Caller agreeable to plan of care: no unable to reach. Able to reach and she clarified that she had eaten at [employer] prior to the draw and had syrup on her pancakes and she knew it would be high. She is feeling fine and has made adjustments. documented in this encounter Plan of Treatment Upcoming Encounters Date Type Department Care Team (Late st Contact Info) Description 10/14/2023 10:30 AM CDT Appointment Division of Gastroenterology in [place], [place] [address] [place] [phone] Jose Roberto Patterson M.D. [address] [place] [phone] documented as of this encounter Visit Diagnoses Not on filedocumented in this encounter Additional Health Concerns Assessment Noted Time PHQ-9 Depression Total Score: 21 012 10:33 AM EPIC DIRECTOR documented as of this encounter Care Teams Financial Services Agent Relationship Specialty Start Date End Date Elsewhere, Pcp PCP - General Internal Medicine 06/26/22 documented as of this encounter
--- OUTSIDE RECORDS SUMMARY | 2023-08-30 10:55 | XMS_ITS | Encounter Summary ---
Author Organization [facility] Address [address] [place] [address] Care Team Providers Care Academic Advisement Director Name Role Phone Elsewhere, Pcp Primary Care Provider Unavailabl e Reason for Referral * MRI/CAT/PET Scan (Routine) - Closed Specialty Diagnoses / Procedures Referred By Contac t Referred To Contact Diagnoses Dyspnea Procedures PET CT Cardiac Perfusion Rest and Stress Tyrese España M.D. [address] [place] [phone] [facility] Referral ID Status Reason Start Date Expiration Date Visits Re quested Visits Authorized [id number] Closed 07/04/2023 07/03/2024 1 1 Reason for Visit * Outpatient (Routine) - Closed Specialty Diagnoses / Procedures Referred By Contac t Referred To Contact Cardiovascular Disease Diagnoses Abnormal Findings On Diagnostic Imaging Of Heart And Coronary Circulation Dyspnea Anne Esquivel CCarl[address] [place] [address] [facility] Referral ID Status Reason Start Date Expiration Date Visits Re quested Visits Authorized [id number] Closed 06/03/2023 12/02/2024 1 1 Encounter Details Date Type Department Care Team (Latest Contact Info) Description 07/04/2023 1:15 PM CDT Comprehensive Visit Department of Cardiovascular Medicine in [place], [place] [address] [place] [address] Tyrese España M.D. [address] [place] [address] Dyspnea (Primary Dx); Abnormal Findings On Diagnostic Imaging Of Heart And Coronary Circulation; Dyspnea On Exertion; Pain Chest Social History Tobacco Use Types Packs/Day Years Used Date Smoking Tobacco: Every Day Cigarettes 0.5 55 Started: 04/01/1968; Last attempted to quit: 03/31/2023 Smokeless Tobacco: Never Tobacco Cessation:Ready to Q [...] your living situation today? I have a [facility] place to live 01/01/2023 Sex and Gender Information Value Date Recorded Sex Assigned at Female 01/01/2023 9:08 AM CDT Gender Identity Female 01/01/2023 9:08 AM CDT Sexual Orientation Straight 01/01/2023 9: 08 AM CDT documented as of this encounter Last Filed Vital Signs Vital Sign Reading Time Taken Comments Blood Pressure 159/83 07/04/2023 12:58 PM CDT Pulse 70 07/04/2023 12:58 PM CDT Temperature - - Respiratory Rate - - Oxygen Saturation - - Inhaled Oxygen Concentration - - Weight 55.8 kg (123 lb 0.3 oz) 07/04/2023 12:58 PM CDT Height 162 cm (5' 3.78) 07/04/2023 12:58 PM CDT Body Mass Index 21.26 07/04/2023 12:58 PM CDT documented in this encounter Consult Notes * Tyrese España M.D. - 07/04/2023 1:15 PM CDT REFERRAL SOURCE Anne Esquivel, C.N.P. [address] [place] [phone] CHIEF COMPLAINT / REASON FOR VISIT Dyspnea, chest discomfort HISTORY OF PRESENT ILLNESS Ms. Prince has a rather complicated history with pancreatic stones as well as diabetes, hypertension and tobacco use. She experiences symptoms of chest discomfort as well as dyspnea on exertion. She notes that her exertional dyspnea is provoked by having to push too fast. She does not have stairs in her home and so she does not report dyspnea with activity at home. Walking in a large store is difficult and so she is resorted to using an electric riding cart. She describe symptoms of right anterior chest discomfort that can radiate to the right arm; these symptoms tend to be rather abrupt in onset and more of a sharp characteristic. They can occur at rest as well as with exertion. She also desc ribes symptoms of left anterior chest heaviness that occur predominantly with exertion. There are some intermittent episodes of chest discomfort and left shoulder discomfort that can occur at rest. Her exertional symptoms are usually less than 10 minutes in duration and will edmund quite promptly ifshe stops. She has not aware of a sensation of rapid heart rate associated with any of these symptoms. She recently underwent an echocardiographic examination at [place] which showed essentially a structurally normal heart though some evidence of tricuspid insufficiency. There was some slight sclerosis of the aortic valve but no significant stenosis or regurgitation and the ejection fraction was 71%. Right- sided heart pressures were normal with an estimated right ventricular systolic pressure of 25. Our echocardiogram just completed confirms the findings of the study done at home. A CT scan done here last fall as part of the evaluation of her pancreatic condition revealed calcification of the left anterior descending coronary artery that was rather significant in terms of the extent of calcification and there was also some right coronary artery calcification though this was quite mild. Both the ascending and descending aorta showed evidence of calcification as well. The following portions of the patient's history were reviewed and updated as appropriate: allergies, current medications, family history, medical history, social history, surgical history, psychiatric history, substance abuse history, problem list, labs, diagnostics tests. I also reviewed pertinentclinical notes in the electronic health record. REVIEW OF SYSTEMS A comprehensive review of systems was completed; pertinent abnormalities are included in the History of Present Illness. MEDICATIONS Current Medications: Accu-Chek Guide test strips, 3 (three) times a day. for testing acetaminophen (TYLENOL) 500 mg tablet, Take 1,000 mg by mouth every 6 (six) hours as needed. amLODIPine (NORVASC) 5 mg tablet, Take 1 tablet (5 mg total) by mouth daily. (Patient not taking: Reported on 06/26/2023) aspirin [address] tablet, Take 325 mg by mouth every 6 (six) hours as needed for pain. BD Ultra-Fine Micro Pen Needle 32 gauge x 1/4 needle, clotrimazole (LOTRIMIN) 1 % cream, APPLY TO AFFECTED AREA(S) TWO TIMES A DAY FOR 7 DAYS cyclobenzaprine (FLEXERIL) 10 mg tablet, Take 10 mg by mouth 3 (three) times a day as needed. donepeziL (ARICEPT) 5 mg tablet, Take by mouth daily. DULoxetine (CYMBALTA) [address] capsule, Take 30 mg by mouth every morning. fentaNYL (DURAGESIC) 12 mcg/hr patch, States it fell off hydrocortisone (INSTACORT) 0.5 % cream, ONE APPLICATION TOPICALLY TWICE DAILY NEEDED FOR RASH insulin glargine (LANTUS) 100 unit/mL injection, Inject 30 Units under the skin 2 (two) times a day. Full dose last night. None today insulin lispro 100 unit/mL injection, Not started yet losartan (COZAAR) 100 mg tablet, Take 1 tablet by mouth at bedtime. montelukast (SINGULAIR) 10 mg tablet, Take 10 mg by mouth at bedtime. nystatin (MYCOSTATIN) 100,000 unit/mL suspension, TAKE 4MLS BY MOUTH FOUR TIMES DAILY FOR 7 DAYS; ADMINISTER ONE HALF DOSE IN EACH SIDE OF THE MOUTH ondansetron ODT (ZOFRAN-ODT) 4 mg disintegrating tablet, DISSOLVE ONE TABLET ON THE TONGUE TWO TO THREE TIMES PER DAY NEEDED FOR NAUSEA AND VOMITING FOR 3 DAYS oxyBUTYnin (DITROPAN-XL) 10 mg 24 hr tablet, Take 10 mg by mouth at bedtime. oxyCODONE (ROXICODONE) 10 mg IR tablet, TAKE ONE-HALF TABLET BY MOUTH FOUR TIMES A DAY NEEDED FOR PAIN FOR 14 DAYS oxyCODONE (ROXICODONE) 5 mg immediate release tablet, Take 5 mg by mouth every 6 (six) hours as needed for pain. For 30 days. QUEtiapine (SEROquel) 100 mg tablet, Take 100 mg by mouth at bedtime. QUEtiapine (SEROquel) 400 mg tablet, Take 400 mg by mouth at bedtime. simvastatin (ZOCOR) 40 mg tablet, Take 40 mg by mouth at bedtime. SUMAtriptan (IMITREX) 100 mg tablet, Take 100 mg by mouth as needed for migraine. May repeat dose once in 2 hours if migraine is unresolved. Do not exceed 200 mg in 24 hours. varenicline (CHANTIX CECILE) 0.5 mg (11)- 1 mg (42) tablet, Use as directed on package instructions, try to quit smoking after 1 week. (Patient not taking: Reported on 06/26/2023) .meds VITALS Blood Pressure: 159/83 Height: 162 cm Weight: 55.8 kg BMI (Calculated): 21.3 kg/m?? DIAGNOSTIC REVIEW All labs and diagnostic studies were reviewed. These are described above. ASSESSMENT / PLAN #1 Abnormal Findings On Diagnostic Imaging Of Heart And Coronary Circulation #2 Dyspnea #3 Dyspnea On Exertion #4 Pain Chest Her right-sided chest symptoms are likely not cardiac in origin. The left-sided discomfort and dyspnea are much more likely to represent myocardial ischemia though they could just as readily represent heart failure with preserved ejection fraction. The findings on previous studies of severe left anterior descending calcification certainly raise the possibility that the current symptoms might represent myocardial ischemia. I had a lengthy discussion with her about the potential causes of her symptoms and reassured her that the echocardiogram did not show any underlying structural heart disease. I emphasized that the echo does not tell us anything about coronary blood flow, especially in light of the calcification noted on the CT scan. We have discussed diagnostic options and have elected to proceed with a quantitative PET stress test. I explained to her that if this is significantly abnormal, we may need to consider proceeding to diagnostic coronary angiography with possible percutaneou s coronary intervention. There is a least a 20% chance that the stress test would be normal, even with what is seen on the CT scan and this then might be more indicative of the possibility of microvascular disease or heart failure with preserved ejection fraction. She seems to understand the explanation is quite anxious to proceed with a PET study. 30 minutes total time Tyrese España M.D. 07/04/2023 documented in this encounter Plan of Treatment Upcoming Encounters Date Type Department Care Team (Late st Contact Info) Description 10/14/2023 10:30 AM CDT Appointment Division of Gastroenterology in [place], [place] [address] [place] [address] Jose Roberto Patterson M.D. [address] [place] [address] documented as of this encounter Results * PET CT Cardiac Perfusion Rest and Stress (07/17/2023 12:27 PM CDT) 07/17/2023 9:53 AM CDT Narrative [facility] - 07/17/2023 2:45 PM CDT See PDF For Result Procedure Note Ramos Hall M.D. - 07/17/2023 See PDF For Result Tyrese España M.D. IMG NM PROCEDURES [facility] NA documented in this encounter Visit Diagnoses Diagnosis Dyspnea- Primary Abnormal Findings On Diagnostic Imaging Of Heart And Coronary Circulation Dyspnea On Exertion Pain Chest Dyspnea documented in this encounter Additional Health Concerns Assessment Noted Time PHQ-9 Depression Total Score: 21 05/31/ 012 10:33 AM MAP EDITOR documented as of this encounter Care Teams Academic Advisement Director Relationship Specialty Start Date End Date Elsewhere, Pcp PCP - General Internal Medicine 06/26/22 documented as of this encounter
--- OUTSIDE RECORDS SUMMARY | 2023-08-30 10:55 | XMS_ITS | Encounter Summary ---
Author Organization [facility] Address [address] [place] [address] Care Team Providers Care Meringuer Name Role Phone Elsewhere, Pcp Primary Care Provider Unavailabl e Encounter Details Date Type Department Care Team (Latest Contact Info) Description 07/08/2023 11:10 AM CDT Ancillary Procedure Department of Gastroenterology Social [...] your living situation today? I have a [facility] place to live 01/01/2023 Sex and [...] AM CDT Appointment Division of Gastroenterology in [place], [place] [address] [place] [address] Jose Roberto Patterson M.D. [address] [place] [address] documented as of this encounter Procedures Procedure Name Priority Date/Time Associated Diagnosis Comments GASTROENTEROLOGY IMAGE EXAM Routine 07/08/2023 11:10 AM CDT documented in this encounter Results * ERCP-Gastroenterology Image Exam (07/08/2023 11:10 AM [...] Noted Time PHQ-9 Depression Total Score: 21 03/ 012 10:33 AM ASPHALT DAUBER documented as of this encounter Care Teams Meringuer Relationship Specialty Start Date End Date Elsewhere, Pcp PCP - General Internal Medicine 06/26/22 documented as of this encounter
--- OUTSIDE RECORDS SUMMARY | 2023-08-30 10:55 | XMS_ITS | Encounter Summary ---
Author Organization [facility] Address [address] [place] [address] Care Team Providers Care Tax Revenue Officer Name Role Phone Elsewhere, Pcp Primary Care Provider Unavailabl e Reason for Referral * Outpatient (Routine) - Closed Specialty Diagnoses / Procedures Referred By Olivia gonzalez Referred To Contact Diagnoses Hypertension Essential Primary Pain Chest Shortness Of Breath Procedures Echo Transthoracic (TTE) Anna Santiago APRN, C.NAbner, M.S.N. [address] [place] [phone] [facility] Referral ID Status Reason Start Date Expiration Date Visits Re quested Visits Authorized [id number] Closed 06/14/2023 06/13/2024 1 1 Reason for Visit * Outpatient (Routine) - Closed Specialty Diagnoses / Procedures Referred By Contgriffin t Referred To Contact Diagnoses Hypertension Essential Primary Pain Chest Shortness Of Breath Procedures Echo Transthoracic (TTE) Anna Santiago APRN, C.NAbner, M.S.N. [address] [place] [phone] [facility] Referral ID Status Reason Start Date Expiration Date Visits Re quested Visits Authorized [id number] Closed 06/14/2023 06/13/2024 1 1 Encounter Details Date Type Department Care Team (Latest Contact Info) Description 06/28/2023 10:59 AM CDT - 06/28/2023 11:59 PM CDT Hospital Encounter Department of Cardiovascular Diseases in [place], [place] [address] [place] [address] Anna Santiago APRN, C.N.PCarlos, M.S.N. [address] [place] [address] Hypertension Essential Primary; Pain Chest; Shortness Of Breath Discharge Disposition: Home or Self Care Social [...] your living situation today? I have a [facility] place to live 01/01/2023 Sex and [...] smoking after 1 week. 53 tablet 01/02/2023 amLODIPine (NORVASC) 5 mg tablet Take 1 tablet (5 mg total) by mouth daily. 90 tablet 2 09/09/2022 07/05/2023 documented as of this encounter Plan of Treatment Upcoming Encounters Date Type Department Care Team (Late st Contact Info) Description 10/14/2023 10:30 AM CDT Appointment Division of Gastroenterology in [place], [place] [address] [place] [address] Jose Roberto Patterson M.D. [address] [place] [address] documented as of this encounter Procedures Procedure Name Priority Date/Time Associated Diagnosis Comments (TTE) 2D ECHO DOPPLER COLOR Routine 06/28/2023 2:01 PM CDT Hypertension Essential Primary Pain Chest Shortness Of Breath documented in this encounter Results * (TTE) 2D ECHO DOPPLER COLOR (06/28/2023 [...] report, see the Order-Level Documents. Anna Santiago APRN C.N.P., M.S.N. CV ECHO PROCEDURES documented in this encounter Visit Diagnoses Diagnosis Hypertension Essential Primary Pain Chest Shortness Of Breath documented in this encounter Additional Health Concerns Assessment Noted Time PHQ-9 Depression Total Score: 21 05/31/ 012 10:33 AM SETTER OFF documented as of this encounter Care Teams Tax Revenue Officer Relationship Specialty Start Date End Date Elsewhere, Pcp PCP - General Internal Medicine 06/26/22 documented as of this encounter
--- OUTSIDE RECORDS SUMMARY | 2023-08-30 10:55 | XMS_ITS | Encounter Summary ---
Author Organization [facility] Address [address] [place] [address] Care Team Providers Care Fire Management Officer Name Role Phone Elsewhere, Pcp Primary Care Provider Unavailabl e Reason for Referral * Outpatient (Routine) - Closed Specialty Diagnoses / Procedures Referred By Contac t Referred To Contact Diagnoses Pancreatitis Chronic (HCC) Procedures FL Fluoro Less Than 1 Hour Jose Roberto Patterson M.D. 200 [place] [address] [facility] Referral ID Status Reason Start Date Expiration Date Visits Re quested Visits Authorized [id number] Closed 07/08/2023 07/07/2024 1 1 Reason for Visit * Outpatient (Routine) - Closed Specialty Diagnoses / Procedures Referred By Contac t Referred To Contact Diagnoses Pancreatitis Chronic (HCC) Procedures FL Fluoro Less Than 1 Hour Jose Roberto Patterson M.D. [address] [place] [address] [facility] Referral ID Status Reason Start Date Expiration Date Visits Re quested Visits Authorized [id number] Closed 07/08/2023 07/07/2024 1 1 Encounter Details Date Type Department Care Team (Latest Contact Info) Description 07/08/2023 11:07 AM CDT - 07/08/2023 11:59 PM CDT Hospital Encounter Department of Radiology, [facility], in [place], [place] [address] [place] [address] Jose Roberto Patterson M.D. [address] [place] [address] Pancreatitis Chronic (HCC) Discharge Disposition: Home or [...] your living situation today? I have a [facility] place to live 01/01/2023 Sex [...] AM CDT Appointment Division of Gastroenterology in [place], [place] [address] [place] [address] Jose Roberto Patterson M.D. [address] [place] [address] documented as of this encounter Procedures Procedure Name Priority Date/Time Associated Diagnosis Comments FL FLUORO LESS THAN 1 HOUR RAD - Routine (most inpatients and all outpatients) 07/08/2023 12:16 PM CDT Pancreatitis Chronic (HCC) documented in this encounter Results * FL Fluoro Less Than 1 Hour (07/08/2023 12:16 PM CDT) Narrative ERCP LOS RST - 07/08/2023 12:17 PM CDT This exam does not require a radiologist review or interpretation. Please refer to the patient's medical record on this date for clinical details. Jose Roberto SOMMERS FLUOROSCOP Y PROCEDURES ERCP LOS RST documented in this encounter Visit Diagnoses Diagnosis Pancreatitis Chronic (HCC) documented in this encounter Additional Health Concerns Assessment Noted Time PHQ-9 Depression Total Score: 21 05/31/ 012 10:33 AM CONSTRUCTION COST ESTIMATOR documented as of this encounter Care Teams Fire Management Officer Relationship Specialty Start Date End Date Elsewhere, Pcp PCP - General Internal Medicine 06/26/22 documented as of this encounter
--- OUTSIDE RECORDS SUMMARY | 2023-08-30 10:55 | XMS_ITS | Encounter Summary ---
Author Organization [facility] Address [address] [place] [address] Care Team Providers Care Red Mud Thickener Operator Name Role Phone Elsewhere, Pcp Primary Care Provider Unavailabl e Reason for Referral * MRI/CAT/PET Scan (Routine) - Closed Specialty Diagnoses / Procedures Referred By Contac t Referred To Contact Diagnoses Dyspnea Procedures PET CT Cardiac Perfusion Rest and Stress Tyrese España M.D. 200 [place] [address] [facility] Referral ID Status Reason Start Date Expiration Date Visits Re quested Visits Authorized [id number] Closed 07/04/2023 07/03/2024 1 1 Reason for Visit * MRI/CAT/PET Scan (Routine) - Closed Specialty Diagnoses / Procedures Referred By Contac t Referred To Contact Diagnoses Dyspnea Procedures PET CT Cardiac Perfusion Rest and Stress Tyrese España M.D. [address] [place] [address] [facility] Referral ID Status Reason Start Date Expiration Date Visits Re quested Visits Authorized [id number] Closed 07/04/2023 07/03/2024 1 1 Encounter Details Date Type Department Care Team (Latest Contact Info) Description 07/17/2023 9:53 AM CDT - 07/17/2023 11:59 PM CDT Hospital Encounter Department of Radiology, [facility], in [place], [place] [address] [place] [address] Tyrese España M.D. [address] [place] [address] Dyspnea Discharge Disposition: Home or Self Care Social [...] AM CDT Appointment Division of Gastroenterology in [place], [place] [address] [place] [address] Jose Roberto Patterson M.D. [address] [place] [address] documented as of this encounter Procedures Procedure Name Priority Date/Time Associated Diagnosis Comments PET CT CARDIAC PERFUSION REST AND STRESS RAD - Routine (most inpatients and all outpatients) 07/17/2023 12:27 PM CDT Dyspnea documented in this encounter Results * PET CT Cardiac Perfusion Rest and Stress (07/17/2023 12:27 PM CDT) 07/17/2023 9:53 AM CDT Narrative CRYSTAL GARCIA - 07/17/2023 2:45 PM CDT See PDF For Result Procedure Note Ramos Hall M.D. - 07/17/2023 See PDF For Result Tyrese España M.D. IMG NM PROCEDURES KYLAH GARCIA NA documented in this encounter Visit Diagnoses Diagnosis Dyspnea documented in this encounter Administered Medications Inactive Administered Medications - up to 3 most recent administrations Medication Order MAR Action Action Date Dose Rate Site ammonia N 13 injection ASSISTED (AMMONIA N-13) 9-16.5 millicurie, intravenous, Once, On Sat07/17/23 at 1100, For 1 dose, Imaging Protocol Orders Given 07/17/2023 11:16 AM CDT 12.97 millicuries ammonia N 13 injection ASSISTED (AMMONIA N-13) 9-16.5 millicurie, intravenous, Once, On Sat07/17/23 at 1100, For 1 dose, Imaging Protocol Orders Given 07/17/2023 10:44 AM CDT 11.14 millicuries regadenoson injection 0.4 mg (LEXISCAN) 0.4 mg, intravenous, Once, On Sat07/17/23 at 1145, For 1 dose, Intraprocedure - Diagnostic, See protocol Administer via rapid IV injection (approximately 10 seconds). Given 07/17/2023 11:28 AM CDT 0.4 mg sodium chloride 0.9 % injection 10 mL 10 mL, intravenous, As needed, line care, Starting on Sat07/17/23 at 1126, Prior to and following infusion and between multiple consecutive infusions: sodium chloride 0.9 % injection Given 07/17/2023 11:28 AM CDT 10 mL documented in this encounter Additional Health Concerns Assessment Noted Time PHQ-9 Depression Total Score: 21 012 10:33 AM LOSS CONTROL ENGINEER documented as of this encounter Care Teams Red Mud Thickener Operator Relationship Specialty Start Date End Date Elsewhere, Pcp PCP - General Internal Medicine 06/26/22 documented as of this encounter
--- OUTSIDE RECORDS SUMMARY | 2023-08-30 10:55 | XMS_ITS | Referral Summary ---
Author Organization [facility] Address [address] [place] [address] Care Team Providers Care Review Consultant Name Role Phone Elsewhere, Pcp Primary Care Provider Unavailabl e Source Comments Patient records contain information from all sites at [facility]. For routine questions regarding patient records, call [phone] during business hours, M-F 8:00 AM - 5:00 PM Central Time. Record requests for emergency care only can be directed to [phone] at any time.[facility] Encounters Date Type Department Care Team Description 07/17/2023 9:53 AM CDT - 07/17/2023 11:59 PM CDT Hospital Encounter Department of Radiology, [facility], in [place], [place] [address] [place] [address] Tyrese España M.D. Dyspnea Discharge Disposition: Home or Self Care 07/11/2023 Clinical Communication Department of Nicotine Dependence, [facility], in [place], [place] [address] [place] [phone] Froy Can M.A. Nicotine Dependence 07/09/2023 Orders Only Division of Gastroenterology in [place], [place] [address] [place] [address] Jose Roberto Patterson M.D. Pain Abdominal Chronic (Primary Dx) 07/08/2023 11:10 AM CDT Ancillary Procedure Department of Gastroenterology 07/08/2023 11:07 AM CDT - 07/08/2023 11:59 PM CDT Hospital Encounter Department of Radiology, [facility], in [place], [place] [address] [place] [phone] Jose Roberto Patterson M.D. Pancreatitis Chronic (HCC) Discharge Disposition: Home or Self Care 07/08/2023 11:17 AM CDT Anesthesia Event Division of Gastroenterology in [address] [address] Elizabeth May APRN, CRNA Kor, Benjamin T, M.D. 07/08/2023 9:36 AM CDT - 07/08/2023 11:06 AM CDT Hospital Encounter Division of Gastroenterology in [address] [address] Jose Roberto Patterson M.D. Kiehne, Emily A, APRN, CRNA Pancreatitis Chronic (HCC) Discharge Disposition: Home or Self Care 07/04/2023 1:15 PM CDT Comprehensive Visit Department of Cardiovascular Medicine in [address] [address] Tyrese España M.D. Dyspnea (Primary Dx); Abnormal Findings On Diagnostic Imaging Of Heart And Coronary Circulation; Dyspnea On Exertion; Pain Chest 06/28/2023 Clinical Communication Department of Cardiovascular Medicine in [address] [address] Fiona Simms, RCarlosNCarlos Abnormal Test Result (Elevated glucose) 06/28/2023 10:59 AM CDT - 06/28/2023 11:59 PM CDT Hospital Encounter Department of Cardiovascular Diseases in [address] [address] Anna Santiago APRN C.N.P., M.S.N. Hypertension Essential Primary; Pain Chest; Shortness Of Breath Discharge Disposition: Home or Self Care 06/28/2023 9:53 AM CDT - 06/28/2023 10:58 AM CDT Hospital Encounter Department of Laboratory Medicine and Pathology, [facility], in [place], [place] [address] [place] [phone] Anna Santiago APRN, C.NAubrie., M.S.N. Hypertension Essential Primary; Pain Chest; Shortness Of Breath Discharge Disposition: Home or Self Care 06/26/2023 10:45 AM CDT Clinical Communication Virtual Review in [place], [place] 200 [place] [address] Pre-visit Intake 06/18/2023 Clinical Communication Division of Gastroenterology in [place], [place] [address] [place] [phone] Jose Roberto Patterson M.D. 06/10/2023 Clinical Communication Department of Cardiovascular Medicine in [place], [place] [address] [place] [phone] Prescheduling, Provider OSM - Outside Materials 06/10/2023 Clinical Communication Department of Cardiovascular Medicine in [place], [place] [address] [place] [phone] Prescheduling, Provider External Triage 06/05/2023 [facility] [address] [place] [address] Anne Esquivel, C.N.P. Diabetes Mellitus Type 2 (HCC) (Primary Dx) 06/03/[address] [address] Anne Esquivel, C.N.P. Abnormal Findings On Diagnostic Imaging Of Heart And Coronary Circulation (Primary Dx); Dyspnea from Last 3 Months Allergies Active Allergy [...] AM CDT Appointment Division of Gastroenterology in [place], [place] [address] [place] [address] Jose Roberto Patterson M.D. [address] [place] [address] Medical Devices Implanted Type Area Clinic Office Assistant Device Identifier Shelf Expiration Date Model / Serial / Lot [employer] 10fx22 - [id number] Implanted:Qty : 1 on 07/08/2023 by Jose Roberto Hays M.D. at [facility] [employer] Pancreatic Stent [employer] 05/29/2026 [id number] / / [id number] Explanted Type Area Clinic Office Assistant Device Identifier Shelf Expiration Date Model / Serial / Lot [facility] 8.5fx22 - [id number] Implanted:Qty : 1 on 05/08/2023 by Alverto Bunch M.D. at [facility] [employer] Explanted:Qty : 1 on 07/08/2023 by Jose Roberto Hays M.D. at [facility] [employer] Pancreatic [employer] 03/12/2026 [id number] / / [id number] Description:8.5 x 12 Procedures Procedure Name Priority [...] OUTSIDE DX CHEST Routine 06/06/2023 10:35 AM PIPE FINISHER HEMOGLOBIN A1C, B Routine 02/19/2023 6:1 7 AM PIPE FINISHER EXTI LIPID PANEL, S Routine 11/22/2022 6 :39 PM CDT BI BREAST SCREENING UNILATERAL Routine 05/11/2011 2:00 PM PIPE FINISHER ALBUMIN, RANDOM, U Routine 05/04/2011 12:[address] CHEST WITH IV CONTRAST Routine 03/13/2011 1:35 PM PIPE FINISHER from Last 3 Months or Most Recently Relevant to Health Maintenance Results * PET CT Cardiac Perfusion Rest and Stress (07/17/2023 12:27 PM CDT) 07/17/2023 9:53 AM CDT Narrative KYLAH GARCIA - 07/17/2023 2:45 PM CDT See PDF For Result Procedure Note Ramos Hall M.D. - 07/17/2023 See PDF For Result Tyrese España M.D. IMG NM PROCEDURES Performing Organization Address [facility] Co de Phone Number KYLAH [employer] NA * Glucose, POCT (07/08/2023 12:30 PM CDT) Only the most recent of3 resultswithin the time period is included. [facility] Signature Glucose, POCT, B 86 70 - 140 mg/dL 07/08/2023 12:43 PM CDT PCMO Blood 07/08/2023 12:3 0 PM CDT 07/08/2023 12:43 PM CDT Unknown Provider LAB POCT ORDERABLES- MANUAL Performing Organization Address [facility] Co de Phone Number POC RST [facility] [address] PCMO [facility] POC 200 [place] [address] * FL Fluoro Less Than 1 Hour (07/08/2023 12:16 PM CDT) Narrative ERCP LOS RST - 07/08/2023 12:17 PM CDT This exam does not require a radiologist review or interpretation. Please refer to the patient's medical record on this date for clinical details. Jose Roberto Patterson M.D. IMG FLUOROSCOP Y PROCEDURES Performing Organization Address City/[facility] Co de Phone Number ERCP LOS RST * LDA ANE ENDOTRACHEAL AIRWAY (07/08/2023 11:23 AM CDT) Narrative Ludmila Vasquez APRN, NABOR, MNA - 07/08/2023 11:23 AM CDT Ludmila [...] ETT location: oral VL device: glide scope [place] scope blade size: 3 Tube size: [...] CDT) 07/08/2023 11:0 9 AM CDT Impressions HAWKINS AMANDEEPATION - 07/08/2023 5:09 PM CDT Post-op Diagnoses: [...] placed in the main pancreatic duct. Narrative HAWKINS PROVATION - 07/08/2023 5:09 PM CDT Gonda 2 [...] A pancreatic stent was visible on the party supply specialist film. The esophagus was ? successfully intubated [...] Roberto Patterson M.D. GI PROCEDURE O RDERABLES LONNIE CINTRON NA * (TTE) 2D ECHO DOPPLER COLOR [...] Santiago APRN C.N.P., M.S.N. CV ECHO PROCEDURES * NT-Pro B-Type Natriuretic Peptide (BNP) (06/28/2023 10:28 AM CDT) NT-Pro BNP 93 <=540 pg/mL 06/28/2023 11:55 [...] Santiago APRN, C.N.P., M.S.N. LAB BLOOD ADD-ON [facility] [address] [place] [address], [facility] DTL [facility] [address] [place] [address] * (ABNORMAL) CBC with Differential, Blood (06/28/2023 10:28 AM CDT) Hemoglobin 12.5 11.6 - 15.0 g/dL 06/28/2023 [...] 10:28 AM CDT 06/28/2023 10:46 AM CDT Anna Sandra Wong APRNNAubrie., M.S.N. LAB BLOOD ADD-ON [facility] [address] [place] [address], [facility] DTL [facility] [address] [place] [address] [facility] [address] [place] [address] * (ABNORMAL) Comprehensive Metabolic Panel (06/28/2023 10:28 AM CDT) Potassium, S 4.3 3.6 - 5.2 mmol/L [...] 10:28 AM CDT 06/28/2023 11:00 AM CDT Mona Momin APRN.N.Santi., M.S.N. LAB BLOOD ADD-ON [facility] 200 [place] [address], [facility] [address] [place] [address] * ECG 12 Lead (06/28/2023 9:58 AM CDT) Ventricular Rate ECG/Min 73 BPM MUSE [place] Interval 174 ms MUSE QRSD Interval 102 ms MUSE QT Interval 424 ms MUSE QTC Interval 467 ms MUSE P [place] 64 degrees MUSE R [place] 79 degrees MUSE T Wave [place] 71 degrees MUSE 06/28/2023 9:58 AM CDT [...] C.N.P., M.S.N. ECG ORDERABLES Performing Organization Address [facility] Co de Phone Number MUSE NA * XR chest 2V-Outside Chest Xray (06/06/2023 10:35 AM PIPE FINISHER) Narrative IIMS - 06/12/2023 3:33 PM CDT [...] In System IMG DIAGNOSTIC IM AGING PROCEDURES Performing Organization Address [facility] de Phone Number IIVA NA * (ABNORMAL) Hemoglobin A1c (02/19/2023 6:17 AM PIPE FINISHER) Hemoglobin A1c, B 7.8(H) 4.0 - 5.6 % 02/19/2023 7:11 AM PIPE FINISHER DTL Comment: Hemoglobin A1c values greater than or equal to 6.5 percent are diagnostic for diabetes mellitus. ??Diagnosis should be confirmed by repeat testing. ??In diabetic patients, HbA1c goals should be discussed with healthcare provider. Blood (Blood, Venous) 02/19/2023 6:17 AM PIPE FINISHER 02/19/2023 6:33 AM PIPE FINISHER Luis Andrew M.D., M.P.H. LAB BLOOD ADD-ON Performing Organization Address [facility] Co de Phone Number [facility] [address] [place] [address], [place] DTL [facility] [address] [place] [address] * BI Breast Screening (05/11/2011 2:00 PM PIPE FINISHER) Anatomical Region Laterality Modality Breast N/A Mammography 05/11/2011 2:00 PM PIPE FINISHER Impressions 05/11/2011 2:46 PM PIPE FINISHER NEGATIVE There is no mammographic evidence of malignancy. ?? RECOMMENDATION: A 1 year screening mammogram is recommended. ?? The patient will receive a letter notifying her of the results. ?? Justin Landa M.D. ? dla/penrad:05/11/2011 14:46:05 ?? letter sent: 1S/2S - Negative Screen ?? Mammogram BI-RADS: 1 Negative Electronically signed by: ?? Reba ??Syeda LOUIS ??[id number] 11-May-2011 14:46 Narrative 05/11/2011 2:46 PM PIPE FINISHER 11-May-2011 14:00:00 ??Exam: B MG /Screening Exam [...] Negative Electronically signed by: Reba Landa MD [id number] 11-May-2011 14:46 Nathaly Breaux M.D. IMG BI [place] OCEDURES * (ABNORMAL) Microalbumin, Random, Urine (05/04/2011 12:00 PM PIPE FINISHER) Creatinine, Random, U 74.9 30.0 - 125.0 MGDL POWERCHART HXU Albumin % 24.4 12.0 - 30.0 MGL POWERCHART Albumin/Creatin ine Ratio 33(H) 0 - 25 MGGM POWERCHART Urine 05/04/2011 12:0 0 PM PIPE FINISHER Nathaly Breaux M.D. LAB URINE ORDERABLES POWERCHART * CT Chest with IV Contrast (03/13/2011 1:35 PM PIPE FINISHER) Anatomical Region Laterality Modality Chest N/A Computed Tomogra phy 03/13/2011 1:35 PM PIPE FINISHER Impressions 03/13/2011 1:56 PM PIPE FINISHER No pulmonary emboli. FINDINGS: Suboptimal contrast bolus [...] [id number] 13-Mar-2011 13:56 Narrative 03/13/2011 1:56 PM PIPE FINISHER 13-Mar-2011 13:35:00 ??Exam: CT CHEST w Indications: [...] [id number] Electronically signed by: Mello Rivera MD [id number] 13-Mar-2011 13:56 [address]athaly [address]aux M[address]D. IMG CT [place] OCEDURES from Last 3 Months or Most Recently Relevant to Health Maintenance Advance Directives For more information, please contact: [phone] Documents on File Type Date Recorded Patient Jeeper Operator Expl anation Advance Directives 09/17/2011 12:00 AM Leg acy document. See document viewer. * Full Code (Latest Code Status on File) Date Activated Date Inactivated Comments 10/23/2022 2:51 PM 10/25/2022 1:26 AM Question Answer Comments Full Code: Discussed Care Teams Review Consultant Relationship Specialty Start Date End Date Elsewhere, Pcp PCP - General Internal Medicine 06/26/22
--- OUTSIDE RECORDS SUMMARY | 2023-08-30 10:55 | XMS_ITS | Encounter Summary ---
Author Organization [facility] Address [address] [place] [address] Care Team Providers Care Food Operations Manager Name Role Phone Elsewhere, Pcp Primary Care Provider Unavailabl e Reason for Visit * Reason Onset Date Comments Nicotine Dependence 07/11/2023 Encounter Details Date Type Department Care Team (Latest Contact Info) Description 07/11/2023 Clinical Communication Department of Nicotine Dependence, [facility], in [place], [place] [address] [place] [address] Froy Can M.A. Nicotine Dependence Social History [...] your living situation today? I have a [facility] place to live 01/01/2023 Sex [...] AM CDT Appointment Division of Gastroenterology in [place], [place] [address] [place] [address] Jose Roberto Patterson M.D. 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
--- OUTSIDE RECORDS SUMMARY | 2023-08-30 10:56 | XMS_ITS | Encounter Summary ---
Author Organization [facility] Address [address] [place] [address] Care Team Providers Care Research Chief Engineer Name Role Phone Elsewhere, Pcp Primary Care Provider Unavailabl e Encounter Details Date Type Department Care Team (Latest Contact Info) Description 06/28/2023 9:53 AM CDT - 06/28/2023 10:58 AM CDT Hospital Encounter Department of Laboratory Medicine and Pathology, [facility], in [place], [place] [address] [place] [phone] Anna Santiago, ATUL, C.N.P., M.S.N. [address] [place] [phone] Hypertension Essential Primary; Pain Chest; Shortness Of [...] your living situation today? I have a [facility] place to live 01/01/2023 Sex and [...] AM CDT Appointment Division of Gastroenterology in [place], [place] [address] [place] [address] Jose Roberto Patterson M.D. [address] [place] [address] documented as of this encounter Procedures Procedure Name Priority Date/Time Associated Diagnosis Comments NT-PRO B-TYPE NATRIURETIC PEPTIDE (BNP), S Routine 06/28/2023 10:28 AM CDT Hypertension Essential Primary Pain Chest Shortness Of Breath CBC WITH DIFFERENTIAL, B Routine 06/28/2023 10:28 AM CDT Hypertension Essential Primary Pain Chest Shortness Of Breath COMPREHENSIVE METABOLIC PANEL, S/P Routine 06/28/2023 10:28 AM CDT Hypertension Essential Primary Pain Chest Shortness Of Breath documented in this encounter Results * (ABNORMAL) Comprehensive Metabolic Panel (06/28/2023 10:28 AM CDT) [facility] Potassium, S 4.3 3.6 - 5.2 mmol/L [...] CDT 06/28/2023 11:00 AM CDT Mona Momin APRN.N.P., M.S.N. LAB BLOOD ADD-ON [facility] [address] 200 [place] [address] * NT-Pro B-Type Natriuretic Peptide (BNP) (06/28/2023 10:28 AM CDT) [facility] NT-Pro BNP 93 <=540 pg/mL 06/28/2023 11:55 [...] 10:28 AM CDT 06/28/2023 11:00 AM CDT Sandra Momin APRNNAubrie., M.S.N. LAB BLOOD ADD-ON [facility] 200 [place] [address] * (ABNORMAL) CBC with Differential, Blood (06/28/2023 10:28 AM CDT) [facility] Hemoglobin 12.5 11.6 - 15.0 g/dL 06/28/2023 [...] 10:28 AM CDT 06/28/2023 10:46 AM CDT Mona Momin APRN.N.P., M.S.N. LAB BLOOD ADD-ON [facility] 200 [place] [address], [facility] DTL [facility] 200 [place] [address] DHPM [facility] 200 [place] [address] documented in this encounter Visit Diagnoses Diagnosis Hypertension Essential Primary Pain Chest Shortness Of Breath documented in this encounter Additional Health Concerns Assessment Noted Time PHQ-9 Depression Total Score: 21 012 10:33 AM MIDWIFE PRACTITIONER documented as of this encounter Care Teams Research Chief Engineer Relationship Specialty Start Date End Date Elsewhere, Pcp PCP - General Internal Medicine 06/26/22 documented as of this encounter
--- OUTSIDE RECORDS SUMMARY | 2023-08-30 10:56 | XMS_ITS | Encounter Summary ---
Author Organization [facility] Address [address] [place] [address] Care Team Providers Care Air Battle Manager Name Role Phone Elsewhere, Pcp Primary Care Provider Unavailabl e Encounter Details Date Type Department Care Team (Latest Contact Info) Description 06/18/2023 Clinical Communication Division of Gastroenterology in [place], [place] [address] [place] [address] Jose Roberto Patterson M.D. [address] [place] [address] Social History Tobacco Use Types Packs/Day Years Used Date Smoking Tobacco: Former Cigarettes 0.5 55 0 04/01/1968 - 03/31/2023 Smokeless Tobacco: Never [...] living situation today? I have a [facility] place to live 01/01/2023 Sex and [...] AM CDT Appointment Division of Gastroenterology in [place], [place] [address] [place] [address] Jose Roberto Patterson M.D. [address] [place] [address] documented as of this encounter Visit Diagnoses Not on filedocumented in this encounter Additional Health Concerns Assessment Noted Time PHQ-9 Depression Total Score: 21 012 10:33 AM ASTRONAUTICAL ENGINEER documented as of this encounter Care Teams Air Battle Manager Relationship Specialty Start Date End Date Elsewhere, Pcp PCP - General Internal Medicine 06/26/22 documented as of this encounter
--- OUTSIDE RECORDS SUMMARY | 2023-08-30 10:56 | XMS_ITS | Encounter Summary ---
Author Organization [facility] Address [address] [place] [address] Care Team Providers Care Information Systems Technician Name Role Phone Elsewhere, Pcp Primary Care Provider Unavailabl e Reason for Visit * Reason Onset Date Comments Pre-visit Intake 06/26/2023 Encounter Details Date Type Department Care Team (Latest Contact Info) Description 06/26/2023 10:45 AM CDT Clinical Communication Virtual Review in [address] [phone] Pre-visit Intake Social History Tobacco Use Types [...] living situation today? I have a [facility] place to live 01/01/2023 Sex and [...] AM CDT Appointment Division of Gastroenterology in [place], [place] [address] [place] [address] Jose Roberto Patterson M.D. [address] [place] [address] documented as of this encounter Visit Diagnoses Not on filedocumented in this encounter Additional Health Concerns Assessment Noted Time PHQ-9 Depression Total Score: 21 012 10:33 AM FINISHED GARMENT INSPECTOR documented as of this encounter Care Teams Information Systems Technician Relationship Specialty Start Date End Date Elsewhere, Pcp PCP - General Internal Medicine 06/26/22 documented as of this encounter
--- OUTSIDE RECORDS SUMMARY | 2023-08-30 10:56 | XMS_ITS | Encounter Summary ---
Author Organization [facility] Address [address] [place] [address] Care Team Providers Care Drapery Supervisor Name Role Phone Elsewhere, Pcp Primary Care Provider Unavailabl e Reason for Referral * Outpatient (Routine) - Closed Specialty Diagnoses / Procedures Referred By Contgriffin t Referred To Contact Cardiovascular Disease Diagnoses Abnormal Findings On Diagnostic Imaging Of Heart And Coronary Circulation Dyspnea Anne Esquivel C.N.P. [address] [place] [address] [facility] Referral ID Status Reason Start Date Expiration Date Visits Re quested Visits Authorized [id number] Closed 06/03/2023 12/02/2024 1 1 TECHNICIAN Encounter Details Date Type Department Care Team (Late st Contact Info) Description 06/03/2023 [facility] [address] [place] [address] Anne Esquivel C.N.P. [address] [place] [phone] Abnormal Findings On Diagnostic Imaging Of Heart And Coronary Circulation (Primary Dx); Dyspnea Social History Tobacco Use Types Packs/Day Years [...] AM CDT Appointment Division of Gastroenterology in [place], [place] [address] [place] [address] Jose Roberto Patterson M.D. [address] [place] [address] Scheduled Referrals Name Type Priority Associated Diagnoses Order Schedule Cardiovascular Diseases Referral Outpatient Referral Routine Abnormal Findings On Diagnostic Imaging Of Heart And Coronary Circulation Dyspnea Expected: 06/03/2023 (Approximate), Expires: 09/02/2024 documented as of this encounter Visit Diagnoses Diagnosis Abnormal Findings On Diagnostic Imaging Of Heart And Coronary Circulation- Primary Dyspnea documented in this encounter Additional Health Concerns Assessment Noted Time PHQ-9 Depression Total Score: 21 05/31/ 012 10:33 AM SPA TECHNICIAN documented as of this encounter Care Teams Drapery Supervisor Relationship Specialty Start Date End Date Elsewhere, Pcp PCP - General Internal Medicine 06/26/22 documented as of this encounter
--- OUTSIDE RECORDS SUMMARY | 2023-08-30 10:56 | XMS_ITS | Encounter Summary ---
Author Organization [facility] Address [address] [place] [address] Care Team Providers Care Brake Assembler Name Role Phone Elsewhere, Pcp Primary Care Provider Unavailabl e Reason for Visit * Reason Onset Date Comments Previsit Preparation 11/09/2022 Pancreas 11/09/2022 [facility] 11/09/2022 [facility] Encounter Details Date Type Department Care Team (Latest Contact Info) Description 11/09/2022 Clinical Communication Division of Gastroenterology in [place], [place] [address] [place] [address] Provider, Unknown Previsit Preparation; Pancreas; [facility] ([facility]/) Social History Tobacco Use Types Packs/Day Years Used Date Smoking Tobacco: Every Day Cigarettes Smokeless Tobacco: Never Alcohol Use Standard Drinks/Week [...] your living situation today? I have a [facility] place to live 01/01/2023 Sex and [...] AM CDT Appointment Division of Gastroenterology in [place], [place] [address] [place] [address] Jose Roberto Patterson M.D. [address] [place] [address] documented as of this encounter Visit Diagnoses Not on filedocumented in this encounter Additional Health Concerns Assessment Noted Time PHQ-9 Depression Total Score: 21 012 10:33 AM HAZARDOUS MATERIALS ANALYST documented as of this encounter Care Teams Brake Assembler Relationship Specialty Start Date End Date Elsewhere, Pcp PCP - General Internal Medicine 06/26/22 documented as of this encounter
--- OUTSIDE RECORDS SUMMARY | 2023-08-30 10:56 | XMS_ITS | Encounter Summary ---
Author Organization [facility] Address [address] [place] [address] Care Team Providers Care Skein Inspector Name Role Phone Elsewhere, Pcp Primary Care Provider Unavailabl e Reason for Referral * Outpatient (Routine) - Closed Specialty Diagnoses / Procedures Referred By Olivia gonzalez Referred To Contact Diagnoses Hypertension Essential Primary Pain Chest Shortness Of Breath Procedures Echo Transthoracic (TTE) Anna Arroyo APRN, C.NAbner, M.S.N. [address] [place] [phone] [facility] Referral ID Status Reason Start Date Expiration Date Visits Re quested Visits Authorized [id number] Closed 06/14/2023 06/13/2024 1 1 * Outpatient (Routine) - Closed Specialty Diagnoses / Procedures Referred By Olivia gonzalez Referred To Contact Diagnoses Hypertension Essential Primary Pain Chest Shortness Of Breath Procedures ECG 12 Lead Anna Arroyo APRN, C.NAbner, M.S.N. [address] [place] [phone] [place] Referral ID Status Reason Start Date Expiration Date Visits Re quested Visits Authorized [id number] Closed 06/14/2023 06/13/2024 1 1 Reason for Visit * Reason Onset Date Comments External Triage 06/10/2023 Encounter Details Date Type Department Care Team (Latest Contact Info) Description 06/10/2023 Clinical Communication Department of Cardiovascular Medicine in [place], [place] [address] [place] [address] Prescheduling, Provider External Triage Social History Tobacco Use Types Packs/Day Years [...] your living situation today? I have a [facility] place to live 01/01/2023 Sex and Gender Information Value Date Recorded Sex Assigned at Female 01/01/2023 9:08 AM CDT Gender Identity Female 01/01/2023 9:08 AM CDT Sexual Orientation Straight 01/01/2023 9: 08 AM CDT documented as of this encounter Progress Notes * Elizabeth Hayden R.N. - 06/14/2023 9:11 AM CDT Images from the original note were not included. General Cardiology Triage The following information has been gathered from review of available medical records as of 06/14/23for triage purposes.. It is not a comprehensive summary, and has not been verified by the patient. The Appointment Triage Team does not establish a relationship with the patient, nor manage the patient's care outside of an initial review for the purposes of pre-appointment triage. Summary Yary Prince is a 68 y.o. year old female from [address] [place] [phone]. She is externallyreferred for Tricuspid valve stenosis, heart disease . Cardiac History Myxomatous Tricuspid Valve/Mild TR, 05/2023 TTE Pertinent Medical/Surgical History HTN HLD DM2 MS Chronic Pancreatitis Current Smoker TESTING/CONSULTS 06/06/23 CXR Images Available in QREADS 01/05/23 CTA FINDINGS: Vascular findings: No aortic aneurysm, dissection or penetrating ulcer. Negative for acute central pulmonary embolism. The proximal great vessels are widely patent. Scattered coronary artery calcifications. The celiac, superior and inferior mesenteric arteries are widely patent. Single renal arterybilaterally are widely patent without hemodynamically significant stenosis. IMPRESSION: 1. No aortic aneurysm, dissection or penetrating ulcer. 2. No central pulmonary embolism. 3. Chronic pancreatitis with coarse parenchymal calcifications in the head and uncinate process of the pancreas. Unchanged, diffusely dilated main pancreatic duct. 01/05/23 ECG Normal sinus rhythm Low anterior forces When compared with ECG of 16-JUL-2018 01:15, Nonspecific T wave abnormality no longer evident in Anterolateral leads 01/05/23 Labs Troponin T <6/-1 01/05/23 ED Note ...Patient presents to the emergency department with a constellation of different types of pain. Patient has most significant pain is left scapular pain, which started is left wrist pain and then radiated up her arm. Symptoms been present since this morning. She is also complaining of left lower chest pain and left upper quadrant abdominal pain. Patient does have a history of pancreatitis and pancreatic stones... ...This is a patient with history of chronic [...] time. Pain control in the emergency department. 01/06/2018 TTE 06/19/10 NM Stress Indications: SOB, HTN FINAL IMPRESSION: 1. Normal perfusion study; no evidence of stress-induced ischemia. No area of infarction is identified by the quantitative program. 2. LV size is normal. LVEF is quantitated at 59%. Regional wall motion is normal. 3. There are no previous nuclear stress studies for comparison. Outside Medical Records 06/04/23 Labs 05/17/23 TTE Final Impressions: 1. Normal left ventricular size, mildly increased wall thickness, hyperdynamic global systolic function, calculated EF of 71 %. 2. Right ventricular cavity size is normal, global systolic RV function is normal. 3. Normal left atrium size. 4. The aortic valve is sclerotic, no stenosis and trivial regurgitation. 5. The mitral valve is normal, trace mitral regurgitation. 6. Tricuspid valve is myxomatous. 7. Normal estimated pulmonary pressures by tricuspid regurgitation velocity and right atrial pressure (19 mmHg plus RAP). 8. No pericardial effusion. 05/07/23 Primary Care Note ... ... 11/22/22 Labs Troponin T .015 11/22/22 ECG Normal sinus rhythm (64) Possible Left atrial enlargement Septal infarct , age undetermined Abnormal ECG 11/22/22 Urgent Care Note ...Writing provider was called into room to help with the spouse of a patient getting roomed in urgent care, who suddenly developed pain in chest and became pale and dizzy with concerns that she may pass out. Patient complained of pain in upper abdomen and left chest radiating into left scapula, and pain into left arm. She was laid down on exam table and vitals checked. ECG obtained and patient given 4 chewable ASA 81mg. EKG showed sinus rhythm with PVC, slight ST elevations noted in V3, otherwise unremarkable. Patient reports history of chronic pancreatitis, denies cardiac history. Exam revealed normal heart rate and rhythm, tenderness to upper abdomen with palpation, lung sounds normal, re spirations slightly increased. Patient appeared anxious and uncomfortable. EMS was called for transport to ER for further evaluation and management given severity of symptoms and concerns of possibleacute cardiac etiology. Report given to EMS upon arrival. Refer to nurse note for additional details... Triage Determination Pending BARRETT review. documented in this encounter Miscellaneous Notes * Addendum Note - Anna Arroyo APRN C.N.PCarlos, M.S.N. - 06/14/2023 1:38 PM CDTAddended by: ANNA ARROYO on: 06/14/2023 01:38 PM Modules accepted: Orders * Addendum Note - Elizabeth Hayden R.N. - 06/14/2023 1:29 PM CDTAddended by: ELIZABETH HAYDEN on: 06/14/2023 01:29 PM Modules accepted: Orders * Addendum Note - Elizabeth Hayden R.N. - 06/14/2023 1:02 PM CDTAddended by: ELIZABETH HAYDEN on: 06/14/2023 01:02 PM Modules accepted: Orders * Telephone Encounter - Lola Alex - 06/10/2023 11:07 AM CDT General Cardiology Triage Questionnaire Information gathered by PASS upon initial Appointment Request Self-Referral or Provider Referral: Provider Referral: ANNABELLE GALLOWAY [address] [facility] [phone] Primary Cardiac Concern: Tricuspid valve stenosis, heart disease When did your symptoms first start? Few month ago Does anything make your symptoms better or worse? no When do you feel the symptoms (random, when exercising, during the night, etc.)? randomly Do you have any limitations in physical activity? yes Do you have any other cardiac concerns that you would like addressed? No Have you ever had a prior evaluation or treatment of these concerns? (If yes, what was the outcome?) No Have you had any of the following cardiac tests/procedures within the last 2 years? [address] Scan (coronary calcium score, CT angiogram) , Cardiac MRI, Cardioversion, ECG/EKG, and Echocardiogram Have you ever been diagnosed with any of the following: Heart Conditions: Arrhythmia/Abnormal Heart Rate: Other says it would be in the records Coronary Artery Disease/Heart Attack: Other Valve Problems: Provide details, if known tricuspid valve stenosis Breathing conditions: Asthma and COPD/Emphysema Primary Care Provider: (name/facility) ANNABELLE GALLOWAY [address] [place] [phone] Board Filler: (name/facility) N/a Status of Records: (Requested, in Care Everywhere, etc.) in Care Everywhere Other: Questions were done with pt . documented in this encounter Plan of Treatment Upcoming Encounters Date Type Department Care Team (Late st Contact Info) Description 10/14/2023 10:30 AM CDT Appointment Division of Gastroenterology in [place], [place] [address] [place] [address] Jose Roberto Patterson M.D. [address] [place] [address] documented as of this encounter Results * (TTE) 2D ECHO DOPPLER COLOR (06/28/2023 2:01 PM CDT) [facility] Ejection Fraction 66 MC CV EIMS Sinus [...] complete report, see the Order-Level Documents. Anna Arroyo APRN C.N.P., M.S.N. CV ECHO PROCEDURES * (ABNORMAL) Comprehensive Metabolic Panel (06/28/2023 10:28 AM CDT) Pathologist [facility] Potassium, S 4.3 3.6 - 5.2 mmol/L [...] AM CDT 06/28/2023 11:00 AM CDT Anna Arroyo APRN C.N.P., M.S.N. LAB BLOOD ADD-ON [facility] [address] [place] [address], [facility] [address] [place] [address] * NT-Pro B-Type Natriuretic Peptide (BNP) (06/28/2023 [...] AM CDT 06/28/2023 11:00 AM CDT Anna Arroyo APRN, C.N.P., M.S.N. LAB BLOOD ADD-ON [facility] [address] [place] [address], [facility] [address] [place] [address] * (ABNORMAL) CBC with Differential, Blood (06/28/2023 10:28 AM CDT) Pathologist [facility] Hemoglobin 12.5 11.6 - 15.0 g/dL 06/28/2023 [...] Sandra Momin APRNN.P., M.S.N. LAB BLOOD ADD-ON [facility] [address] [place] [address], [place] DTL [facility] [address] [place] [id number] DHPM [facility] [address] [place] [address] * ECG 12 Lead (06/28/2023 9:58 AM CDT) Ventricular Rate ECG/Min 73 BPM MUSE DC Interval 174 ms MUSE QRSD Interval 102 ms MUSE QT Interval 424 ms MUSE QTC Interval 467 ms MUSE P [place] 64 degrees MUSE R [place] 79 degrees MUSE T Wave [place] 71 degrees MUSE 06/28/2023 9:58 AM CDT [...] have increased Reviewed by DANNY Gold Anna S Jack POLLARD C.N.P., M.S.N. ECG ORDERABLES MUSE NA documented in this encounter Visit Diagnoses Diagnosis Pain Chest- Primary Hypertension Essential Primary Shortness Of Breath Hypertension Essential Primary Pain Chest Shortness Of Breath documented in this encounter Additional Health Concerns Assessment Noted Time PHQ-9 Depression Total Score: 21 05/31/ 012 10:33 AM CITY COLLECTOR documented as of this encounter Care Teams Skein Inspector Relationship Specialty Start Date End Date Elsewhere, Pcp PCP - General Internal Medicine 06/26/22 documented as of this encounter
--- OUTSIDE RECORDS SUMMARY | 2023-08-30 10:56 | XMS_ITS | Encounter Summary ---
Author Organization [facility] Address [address] [place] [address] Care Team Providers Care Open Soaper Tender Name Role Phone Elsewhere, Pcp Primary Care Provider Unavailabl e Reason for Visit * Reason Onset Date Comments OSM - Outside Materials 06/10/2023 Encounter Details Date Type Department Care Team (Latest Contact Info) Description 06/10/2023 Clinical Communication Department of Cardiovascular Medicine in [place], [place] [address] [place] [address] Prescheduling, Provider OSM - Outside Materials Social History Tobacco Use Types Packs/Day Years [...] encounter Miscellaneous Notes * Telephone Encounter - Lola Alex Fiona - 06/10/2023 11:16 AM CDT STOP CHECK CARE EVERYWHERE BEFORE SENDING REQUEST We are waiting for, please request the items below for this patient. Cardiology CV OSM Please send all recent CARDIAC records, specifically: Since : Cardiac Cath reports and images Yes Cardiac Surgical/Operative reports No Last 5 years: Cardiology Visit notes (including cardiology hospital summaries) No Echocardiogram reports and images Yes Stress Test reports and images/tracings No Cardiac Imaging (CT, MRI/A, PET, PYP, etc.) reports and images Yes Last 1 year: Holter/Event/Vp Public Relations/Cardiac Device reports and tracings No ECG tracings Yes Labs test results Yes Facility and Date Completed:[facility] [address] [facility] [address] Appointment Scheduled: No Do you want a reply once all OSM is received? NO Note: You will still get replies if not all records are obtained. Please reply to CV RST CVD CUST SX FLR SCHEDULING. documented in this encounter Plan of Treatment Upcoming Encounters Date Type Department Care Team (Late st Contact Info) Description 10/14/2023 10:30 AM CDT Appointment Division of Gastroenterology in [place], [place] [address] [place] [address] Jose Roberto Patterson M.D. [address] [place] [address] documented as of this encounter Visit Diagnoses Not on filedocumented in this encounter Additional Health Concerns Assessment Noted Time PHQ-9 Depression Total Score: 21 012 10:33 AM REED FIXER documented as of this encounter Care Teams Open Soaper Tender Relationship Specialty Start Date End Date Elsewhere, Pcp PCP - General Internal Medicine 06/26/22 documented as of this encounter
--- OUTSIDE RECORDS SUMMARY | 2023-08-30 10:56 | XMS_ITS | Clinical Summary ---
Author Organization [facility] Address [address], [place] [address] Care Team Providers Care Warehouse Associate Name Role Phone Lew Gerwal MD Primary Care Provider Source Comments You are receiving this document as you are listed as the primary care provider,follow-up provider, or the patient has been referred to you for consultation.This is in compliance with the Medicare and[facility] Hospital[facility] EHR Incentive Program,which states Providers who transition their patient to another setting of careor provider of care or refers their patient to another provider of care shouldprovide summary care record for each transition of care or referral. [employer] Allergies Active Allergy Reactions Criticality Noted Date [...] 06/29/2014, Additional history exists COVID-19 Vaccine ( season) 2022 Influenza (Season Ended) 2023 016, 01/10/2015, 02/11/2014, Additional history exists Hep C [...] Negative (Non Reactive) 01/12/2019 7:42 PM CDT [facility] Comment:Antibodies to HCV no t detected. Does not exclude the possiblity of exposure to HCV. Blood Venipuncture / Unknown 01/12/2019 2:27 PM CDT 01/12/2019 2:27 PM CDT Kenrick Juarez MD LAB_1 [facility] [address] * BASIC METABOLIC PANEL (10/19/2010 2:58 PM CDT) [facility] BUN 14 7 - 20 mg/dl [facility] Sodium 140 135 - 145 mmol/L [facility] Potassium 4.5 3.5 - 5.3 mmol/L [facility] Chloride 101 95 - 106 mmol/L [facility] CO2 27 22 - 30 mmol/L [facility] Glucose 151 70 - 180 mg/dl [facility] Creatinine 0.76 0.52 - 1.04 mg/dl [facility] GFR, Estimated >60.0 >60 ml/min/1.7 3m2 [facility] GFR, Est., If Black >60.0 >60 ml/min/1.7 3m2 [facility] Calcium 9.8 8.4 - 10.2 mg/dl [facility] Anion Gap (calc.) 12 7 - 16 mmol/L [facility] 10/19/2010 2:58 PM CDT 10/19/2010 3:04 PM CDT Marcello Monterroso MD LAB_1 Performing Organization Address [facility] Co de Phone Number [facility] [address] [phone] * (ABNORMAL) HGB A1C (10/19/2010 2:58 PM CDT) Hgb A1c 8.9(H) 4.3 - 6.1 % [facility] Comment: The usual A1C goal for people with diabetes, age 18-75, is < 7.0%. Physicians may recommend a higher or lower goal for specific individuals. 10/19/2010 2:58 PM CDT 10/19/2010 3:04 PM CDT Marcello Monterroso MD LAB_1 Performing Organization Address [facility] de Phone Number [facility] [address] [phone] * MAMMOGRAM BILATERAL DIAGNOSTIC (11/05/2003 3:06 PM [...] BREAST MASS RT BREAST, ??PREV DONE AT [facility], Julius Tanner MD RAD MAMMO/RH from Last 3 Months or Most Recently Relevant to Health Maintenance Care Teams Warehouse Associate Relationship Specialty Start Date End Date Lew Grewal MD [address] [facility] [place] [id number] PCP - General Family Practice 12/10/18
--- OUTSIDE RECORDS SUMMARY | 2023-08-30 10:56 | XMS_ITS | Encounter Summary ---
Author Organization [facility] Address [address] [place] [address] Care Team Providers Care Banbury Operator Name Role Phone Elsewhere, Pcp Primary Care Provider Unavailabl e Reason for Referral * Outpatient (Routine) - Authorized Specialty Diagnoses / Procedures Referred By Contgriffin t Referred To Contact Endocrinology Diagnoses Diabetes Mellitus Type 2 (HCC) Anne Esquivel, C.N.P. [address] [place] [address] [facility] Referral ID Status Reason Start Date Expiration Date V isits Requested Visits Authorized [id number] Authorized 06/05/2023 12/04/2024 1 1 HOUSE INSULATION WORKER Encounter Details Date Type Department Care Team (Late st Contact Info) Description 06/05/2023 [facility] [address] [place] [address] Anne Esquivel C.N.P. [address] [place] [address] Diabetes Mellitus Type 2 (HCC) (Primary Dx) Social History Tobacco Use [...] your living situation today? I have a [facility] place to live 01/01/2023 Sex and [...] AM CDT Appointment Division of Gastroenterology in [place], [place] [address] [place] [address] Jose Roberto Patterson M.D. [address] [place] [address] Scheduled Referrals Name Type Priority Associated Diagnoses Order Schedule Endocrinology Referral Outpatient Referral Routine Diabetes Mellitus Type 2 (HCC) Expected: 06/05/2023 (Approximate), Expires: 09/04/2024 documented as of this encounter Visit Diagnoses Diagnosis Diabetes Mellitus Type 2 (HCC)- Primary documented in this encounter Additional Health Concerns Assessment Noted Time PHQ-9 Depression Total Score: 21 012 10:33 AM WAREHOUSE INSULATION WORKER documented as of this encounter Care Teams Banbury Operator Relationship Specialty Start Date End Date Elsewhere, Pcp PCP - General Internal Medicine 06/26/22 documented as of this encounter
--- NOTE | 2023-08-30 11:55 | W.ANESCHARGE ---
Anesthesia Charges Start Date/Time Anesthesia Start Date: 08/30/23 Anesthesia Start Time: 11:21 Stop Date/Time Anesthesia Stop Date: 08/30/23 Anesthesia Stop Time: 11:55
--- NOTE | 2023-08-30 11:58 | P.ANES_ITS ---
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
== END 2023-08-30 10:52 | disposition home or self-care (01) ==
LOC: OP CLINIC 10:52
PROVIDERS: PCP Nurse Practitioner Family; Visit Provider Internal Medicine
DX: R19.5 Other fecal abnormalities (principal)
CPT/HCPCS: 00811; 00812; 45378; 99100; J2704; J3490

== ENCOUNTER 2023-09-03 15:27 | Outpatient (CLI) | payer MEDICARE, OTHER, SELFPAY ==
--- OUTSIDE RECORDS SUMMARY | 2023-09-03 15:31 | XMS_ITS | Clinical Summary ---
Author Organization [facility] Address [place], [place] [address] Care Team Providers Care Stove Fitter Name Role Phone Anne Esquivel JEWELRY STORE MANAGER Primary Care Provider [phone] Allergies Active Allergy Reactions Criticality Noted Date [...] 10 mg by mouth at bedtime. Active multivitamins-muck miner als-lutein (Centrum Silver) 0.4 mg-300 mcg- 250 [...] apart. Max Dose: 200mg per 24hrs. Active wdrmto-uiomtnbo-ldx lase (CREON) 24,000-76,000 -120,000 unit cpDR delayed-release [...] Comments Blood Pressure 145/72 03/08/2023 11:25 AM EYEWEAR CONSULTANT Pulse 78 03/08/2023 9:49 AM EYEWEAR CONSULTANT Temperature 37 ??C (98.6 ??F) 03/08/2023 9:49 AM EYEWEAR CONSULTANT Respiratory Rate 16 03/08/2023 9:49 AM EYEWEAR CONSULTANT Oxygen Saturation 94% 03/08/2023 11:25 AM EYEWEAR CONSULTANT Inhaled Oxygen Concentration - - Weight 58.1 kg (128 lb) 03/08/2023 9:49 AM EYEWEAR CONSULTANT Height 162.6 cm (5' 4) 03/08/2023 9:49 AM EYEWEAR CONSULTANT Body Mass Index 21.97 03/08/2023 9:49 AM EYEWEAR CONSULTANT Plan of Treatment Health Maintenance Due Date [...] - 199 mg/dL 11/22/2022 9:39 PM CDT [facility] TRIGLYCERIDES 99 <150 mg/dL 11/22/2022 9:39 PM CDT [facility] HDL CHOLESTEROL 33(L) >40 mg/dL 9:39 PM CDT [facility] NON-HDL CHOLESTEROL 48 <145 mg/dl 11/22/2022 9:39 PM CDT [facility] CHOL/HDL RATIO 2.45 <4.50 11/22/2022 9:39 PM CDT [facility] LDL CHOLESTEROL 28 <=130 mg/dL 11/22/2022 9:39 PM CDT [facility] VLDL CHOLESTEROL 20 <=30 mg/dL 11/22/2022 9:39 PM CDT [facility] PROVIDER ORDERED STATUS RANDOM 11/22/2022 9:39 PM CDT [facility] Blood BLOOD SPECIMEN / Unknown Butterfly / Unknown 11/22/2022 6:39 PM CDT 11/22/2022 6:44 PM CDT Gerardo HORTON CHEMISTRY [facility] [address] [place] [address] from Last 3 Months or Most Recently Relevant to Health Maintenance Advance Directives Documents on File Type Date Recorded Patient Weight Clerk Expl anation Healthcare Directive 11/23/2022 023 * Full Code (Latest Code Status on File) Date Activated Date Inactivated Comments 01/06/2023 7:04 PM 01/08/2023 12:46 PM Question Answer Comments Code Status Discussion: Reviewed Preferences * Full Code Date Activated Date Inactivated Comments 11/22/2022 10:09 PM 11/24/2022 2:55 PM Question Answer Comments Code Status Discussion: Reviewed Preferences Care Teams Stove Fitter Relationship Specialty Start Date End Date Anne Esquivel, JEWELRY STORE MANAGER [address] [place] [id number] PCP - General Emergency Medicine 11/23/22
--- OUTSIDE RECORDS SUMMARY | 2023-09-03 15:32 | XMS_ITS | Encounter Summary ---
Author Organization [facility] Address [address] [place] [address] Care Team Providers Care Spiral Tube Winder Helper Name Role Phone Elsewhere, Pcp Primary Care Provider Unavailabl e Reason for Referral * Outpatient (Routine) - Closed Specialty Diagnoses / Procedures Referred By Contac t Referred To Contact Diagnoses Pancreatitis Chronic (HCC) Procedures [place] Fluoro Less Than 1 Hour Jose Roberto Patterson M.D. [address] [place] [address] [facility] Referral ID Status Reason Start Date Expiration Date Visits Re quested Visits Authorized [id number] Closed 07/08/2023 07/07/2024 1 1 Reason for Visit * Outpatient (Routine) - Closed Specialty Diagnoses / Procedures Referred By Contac t Referred To Contact Diagnoses Pancreatitis Chronic (HCC) Procedures FL Fluoro Less Than 1 Hour Jose Roberto Patterson M.D. [address] [place] [address] [facility] Referral ID Status Reason Start Date Expiration Date Visits Re quested Visits Authorized [id number] Closed 07/08/2023 07/07/2024 1 1 Encounter Details Date Type Department Care Team (Latest Contact Info) Description 07/08/2023 11:07 AM CDT - 07/08/2023 11:59 PM CDT Hospital Encounter Department of Radiology, [facility], in [place], [place] [address] [place] [address] Jose Roberto Patterson M.D. [address] [place] [address] Pancreatitis Chronic (HCC) Discharge Disposition: Home or [...] your living situation today? I have a [facility] place to live 01/01/2023 Sex [...] AM CDT Appointment Division of Gastroenterology in [place], [place] [address] [place] [address] Jose Roberto Patterson M.D. [address] [place] [address] documented as of this encounter Procedures Procedure [...] Total Score: 21 05/31/ 012 10:33 AM RADIATOR CORE TESTER documented as of this encounter Care Teams Spiral Tube Winder Helper Relationship Specialty Start Date End Date Elsewhere, Pcp PCP - General Internal Medicine 06/26/22 documented as of this encounter
--- OUTSIDE RECORDS SUMMARY | 2023-09-03 15:32 | XMS_ITS ---
Author Organization [facility] Address [address] [place] [address] Care Team Providers Care Outdoor Landscape Architect Name Role Phone Unavailable Unavailable Unavailable Surgery Details Not on file Complications Check Surgery Details section. Procedure Estimated Blood Loss Check Surgery Details section. Procedure Findings Check Surgery Details section. Procedure Specimens Taken Check Surgery Details section.
--- OUTSIDE RECORDS SUMMARY | 2023-09-03 15:32 | XMS_ITS | Encounter Summary ---
Author Organization [facility] Address [address] [place] [address] Care Team Providers Care Cosmetics Presser Name Role Phone Elsewhere, Pcp Primary Care [...] your living situation today? I have a [facility] place to live 01/01/2023 Sex [...] AM CDT Appointment Division of Gastroenterology in [place], [place] [address] [place] [address] Jose Roberto Patterson M.D. [address] [place] [address] documented as of this encounter Procedures Procedure [...] Total Score: 21 03/ 012 10:33 AM BED CONTROL SPECIALIST documented as of this encounter Care Teams Cosmetics Presser Relationship Specialty Start Date End Date Elsewhere, Pcp PCP - General Internal Medicine 06/26/22 documented as of this encounter
--- OUTSIDE RECORDS SUMMARY | 2023-09-03 15:32 | XMS_ITS | Encounter Summary ---
Author Organization [facility] Address [address] [place] [address] Care Team Providers Care Product Controller Name Role Phone Elsewhere, Pcp Primary Care Provider Unavailabl e Reason for Visit * Reason Onset Date Comments Nicotine Dependence 07/11/2023 Encounter Details Date Type Department Care Team (Latest Contact Info) Description 07/11/2023 Clinical Communication Department of Nicotine Dependence, [facility], in [place], [place] [address] [place] [address] Froy Can M.A. Nicotine Dependence Social History [...] your living situation today? I have a [facility] place to live 01/01/2023 [...] AM CDT Appointment Division of Gastroenterology in [place], [place] [address] [place] [address] Jose Roberto Patterson M.D. 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
--- OUTSIDE RECORDS SUMMARY | 2023-09-03 15:32 | XMS_ITS | Clinical Summary ---
Author Organization [facility] Address [address] [place] [address] Care Team Providers Care Cytometry Technologist Name Role Phone Elsewhere, Pcp Primary Care Provider Unavailabl e Source Comments Patient records contain information from all sites at [facility]. For routine questions regarding patient records, call [phone] during business hours, M-F 8:00 AM - 5:00 PM Central Time. Record requests for emergency care only can be directed to [phone] at any time.[facility] Allergies Active Allergy Reactions Criticality Noted [...] PM CDT Hospital Encounter Department of Radiology, [facility], in [place], [place] [address] [place] [phone] Tyrese España M.D. Dyspnea Discharge Disposition: Home or Self Care 07/11/2023 Clinical Communication Department of Nicotine Dependence, [facility] in [place], [place] [address] [place] [phone] Froy Can M.A. Nicotine Dependence 07/09/2023 Orders Only Division of Gastroenterology in [place], [place] [address] [place] [phone] Jose Roberto Patterson M.D. Pain Abdominal Chronic (Primary Dx) 07/08/2023 11:17 AM CDT Anesthesia Event Division of Gastroenterology in [address] [phone] Elizabeth May APRN, CRNA Kor, Benjamin T, M.D. 07/08/2023 11:10 AM CDT Ancillary Procedure Department of Gastroenterology 07/08/2023 11:07 AM CDT - 07/08/2023 11:59 PM CDT Hospital Encounter Department of Radiology, [facility], in [place], [place] [address] [place] [phone] Jose Roberto Patterson M.D. Pancreatitis Chronic (HCC) Discharge Disposition: Home or Self Care 07/08/2023 9:36 AM CDT - 07/08/2023 11:06 AM CDT Hospital Encounter Division of Gastroenterology in [address] [phone] Jose Roberto Patterson M.D. Kiehne, Emily A, APRN, CRNA Pancreatitis Chronic (HCC) Discharge Disposition: Home or Self Care 07/04/2023 1:15 PM CDT Comprehensive Visit Department of Cardiovascular Medicine in [address] [phone] Tyrese España M.D. Dyspnea (Primary Dx); Abnormal Findings On Diagnostic Imaging Of Heart And Coronary Circulation; Dyspnea On Exertion; Pain Chest 06/28/2023 10:59 AM CDT - 06/28/2023 11:59 PM CDT Hospital Encounter Department of Cardiovascular Diseases in [place], [place] [address] [place] [phone] Anna Santiago APRN, C.N.P., M.S.N. Hypertension Essential Primary; Pain Chest; Shortness Of Breath Discharge Disposition: Home or Self Care 06/28/2023 9:53 AM CDT - 06/28/2023 10:58 AM CDT Hospital Encounter Department of Laboratory Medicine and Pathology, [facility] in [place], [place] [address] [place] [phone] Anna Santiago APRN, C.N.P., M.S.N. Hypertension Essential Primary; Pain Chest; Shortness Of Breath Discharge Disposition: Home or Self Care 06/28/2023 Clinical Communication Department of Cardiovascular Medicine in [place], [place] [address] [place] [phone] Fiona Simms RIrving. Abnormal Test Result (Elevated glucose) 06/26/2023 10:45 AM CDT Clinical Communication Virtual Review in [place], [place] 200 [place] [address] Pre-visit Intake 06/18/2023 Clinical Communication Division of Gastroenterology in [place], [place] [address] [place] [phone] Jose Roberto Patterson M.D. 06/10/2023 Clinical Communication Department of Cardiovascular Medicine in [place], [place] [address] [place] [phone] Prescheduling, Provider OSM - Outside Materials 06/10/2023 Clinical Communication Department of Cardiovascular Medicine in [place], [place] [address] [place] [phone] Prescheduling, Provider External Triage 06/05/2023 [facility] [address] [place] [address] Anne Esquivel C.NCarlosPCarlos Diabetes Mellitus Type 2 (HCC) (Primary Dx) 06/03/2023 [facility] [address] [place] [address] Anne Esquivel C.N.P. Abnormal Findings On Diagnostic [...] your living situation today? I have a [facility] to live 01/01/2023 Sex and Gender [...] AM CDT Appointment Division of Gastroenterology in [place], [place] [address] [place] [address] Jose Roberto Patterson M.D. [address] [place] [address] Health Maintenance Due Date Last Done Comments [...] Completed 07/08/2023 Medical Devices Implanted Type Area Territory Sales Executive Device Identifier Shelf Expiration Date Model / Serial / Lot [facility] 10fx22 - [id number] Implanted:Qty : 1 on 07/08/2023 by Jose Roberto Hays M.D. at [facility] Pancreatic Stent [employer] 05/29/2026 [id number] / / [id number] Explanted Type Area Territory Sales Executive Device Identifier Shelf Expiration Date Model / Serial / Lot [facility] 8.5fx22 - [id number] Implanted:Qty : 1 on 05/08/2023 by Alverto Bunch M.D. at [facility] Explanted:Qty : 1 on 07/08/2023 by Jose Roberto Hays M.D. at [facility] Pancreatic Stent [employer] 03/12/2026 [id number] / / [id number] Description:8.5 x 12 Procedures Procedure Name Priority [...] OUTSIDE DX CHEST Routine 06/06/2023 10:35 AM [facility] HEMOGLOBIN A1C, B Routine 02/19/2023 6:1 7 AM [facility] EXTI LIPID PANEL, S Routine 11/22/2022 6 :39 PM CDT BI BREAST SCREENING UNILATERAL Routine 05/11/2011 2:00 PM [facility] ALBUMIN, RANDOM, U Routine 05/04/2011 12:[address] CHEST WITH IV CONTRAST Routine 03/13/2011 1:35 PM [facility] from Last 3 Months or Most Recently Relevant to Health Maintenance Results * PET CT Cardiac Perfusion Rest and Stress (07/17/2023 12:27 PM CDT) 07/17/2023 9:53 AM CDT Narrative [facility] - 07/17/2023 2:45 PM CDT See PDF For Result Procedure Note Ramos Hall M.D. - 07/17/2023 See PDF For Result Tyrese España M.D. IMG NM PROCEDURES Performing Organization Address [facility]/ZIP Co de Phone Number [facility] NA * Glucose, POCT (07/08/2023 12:30 PM CDT) Only the most recent of3 resultswithin the time period is included. Glucose, POCT, B 86 70 - 140 mg/dL 07/08/2023 12:43 PM CDT PCMO Blood 07/08/2023 12:3 0 PM CDT 07/08/2023 12:43 PM CDT Unknown Provider LAB POCT ORDERABLES- MANUAL Performing Organization Address City/[facility]/ZIP Co de Phone Number POC [facility] [address] [place] [address], [place] PCMO [facility] POC [address] [place] [address] * [place] Fluoro Less Than 1 Hour [...] ETT location: oral VL device: glide scope [place] scope blade size: 3 Tube size: 7 [...] CDT) 07/08/2023 11:0 9 AM CDT Impressions [facility] - 07/08/2023 5:09 PM CDT Post-op Diagnoses: [...] placed in the main pancreatic duct. Narrative [facility] - 07/08/2023 5:09 PM CDT [facility] 2 GI Patient Name: Yray Prince Date of : 1955 Age: 68 [...] A pancreatic stent was visible on the delivery supervisor film. The esophagus was ? successfully intubated [...] Roberto Patterson M.D. GI PROCEDURE O RDERABLES [place] [employer] NA * (TTE) 2D ECHO DOPPLER [...] Natriuretic Peptide (BNP) (06/28/2023 10:28 AM CDT) [facility] NT-Pro BNP 93 <=540 pg/mL 06/28/2023 11:55 [...] Santiago APRN, C.N.P., M.S.N. LAB BLOOD ADD-ON [address] [address], [facility] [place] [address] * (ABNORMAL) CBC with Differential, Blood (06/28/2023 10:28 AM CDT) [facility] Hemoglobin 12.5 11.6 - 15.0 g/dL 06/28/2023 [...] Sandra Momin APRNN.P., M.S.N. LAB BLOOD ADD-ON [facility] [address] [place] [address], [facility] DTL [facility] [address] [place], [place] [address] [place] [address] 200 [place] [address] * (ABNORMAL) Comprehensive Metabolic Panel (06/28/2023 10:28 AM CDT) [facility] Potassium, S 4.3 3.6 - 5.2 mmol/L [...] Santiago APRN C.N.P., M.S.N. LAB BLOOD ADD-ON [facility] [address] [place] [address], [place] DTL [facility] [address] [place] [address] * ECG 12 Lead (06/28/2023 9:58 AM CDT) Ventricular Rate ECG/Min 73 BPM MUSE [place] Interval 174 ms MUSE QRSD Interval 102 ms MUSE QT Interval 424 ms MUSE QTC Interval 467 ms MUSE P Scalf 64 degrees MUSE R Scalf 79 degrees MUSE T Wave Scalf 71 degrees MUSE 06/28/2023 9:58 AM CDT [...] C.N.P., M.S.N. ECG ORDERABLES Performing Organization Address City/[facility]/ZIP Co de Phone Number MUSE NA * XR chest 2V-Outside Chest Xray (06/06/2023 10:35 AM [facility]) Narrative [facility] - 06/12/2023 3:33 PM CDT [...] In System IMG DIAGNOSTIC IM AGING PROCEDURES IIIN NA * (ABNORMAL) Hemoglobin A1c (02/19/2023 6:17 AM [facility]) Hemoglobin A1c, B 7.8(H) 4.0 - 5.6 % 02/19/2023 7:11 AM [facility] DTL Comment: Hemoglobin A1c values greater than or equal to 6.5 percent are diagnostic for diabetes mellitus. ??Diagnosis should be confirmed by repeat testing. ??In diabetic patients, HbA1c goals should be discussed with healthcare provider. Blood (Blood, Venous) 02/19/2023 6:17 AM [facility] 02/19/2023 6:33 AM [facility] Luis Andrew M.D., M.P.H. LAB BLOOD ADD-ON [facility] [address] [place] [address], [facility] [place] [address] [place] [address] * BI Breast Screening (05/11/2011 2:00 PM [facility]) Anatomical Region Laterality Modality Breast N/A Mammography 05/11/2011 2:00 PM [facility] Impressions 05/11/2011 2:46 PM [facility] NEGATIVE There is no mammographic evidence of malignancy. ?? RECOMMENDATION: A 1 year screening mammogram is recommended. ?? The patient will receive a letter notifying her of the results. ?? Justin Landa M.D. ? dla/penrad:05/11/2011 14:46:05 ?? letter sent: 1S/2S - Negative Screen ?? Mammogram BI-RADS: 1 Negative Electronically signed by: ?? Reba ??Syeda LOUIS ??[id number] 11-May-2011 14:46 Narrative 05/11/2011 2:46 PM [facility] 11-May-2011 14:00:00 ??Exam: B MG /Screening Exam [...] Negative Electronically signed by: Reba Landa MD [id number] 11-May-2011 14:46 Nathaly Breaux M.D. IMG BI [place] OCEDURES * (ABNORMAL) Microalbumin, Random, Urine (05/04/2011 12:00 PM [facility]) Creatinine, Random, U 74.9 30.0 - 125.0 MGDL POWERCHART HXU Albumin % 24.4 12.0 - 30.0 MGL POWERCHART Albumin/Creatin ine Ratio 33(H) 0 - 25 MGGM POWERCHART Urine 05/04/2011 12:0 0 PM [facility] Nathaly Breaux M.D. LAB URINE ORDERABLES POWERCHART * CT Chest with IV Contrast (03/13/2011 1:35 PM [facility]) Anatomical Region Laterality Modality Chest N/A Computed Tomogra phy 03/13/2011 1:35 PM [facility] Impressions 03/13/2011 1:56 PM [facility] No pulmonary emboli. 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 See document viewer. * Full Code (Latest Code Status on File) Date Activated Date Inactivated Comments 10/23/2022 2:51 PM 10/25/2022 1:26 AM Question Answer Comments Full Code: Discussed Care Teams Cytometry Technologist Relationship Specialty Start Date End Date Elsewhere, Pcp PCP - General Internal Medicine 06/26/22
--- OUTSIDE RECORDS SUMMARY | 2023-09-03 15:32 | XMS_ITS | Encounter Summary ---
Author Organization [facility] Address [address] [place] [address] Care Team Providers Care Ekg Technician Name Role Phone Elsewhere, Pcp Primary Care Provider Unavailabl e Reason for Referral * Outpatient (Routine) - Authorized Specialty Diagnoses / Procedures Referred By Olivia gonzalez Referred To Contact Diagnoses Pain Abdominal Chronic Procedures ERCP Jose Roberto Patterson M.D. [address] [place] [phone] [facility] Referral ID Status Reason Start Date Expiration Date V isits Requested Visits Authorized [id number] Authorized 07/09/2023 07/08/2024 1 1 Encounter Details Date Type Department Care Team (Latest Contact Info) Description 07/09/2023 Orders Only Division of Gastroenterology in [place], [place] [address] [place] [phone] Jose Roberto Patterson M.D. [address] [place] [phone] Pain Abdominal Chronic (Primary Dx) Social History [...] your living situation today? I have a [facility] place to live 01/01/2023 Sex [...] AM CDT Appointment Division of Gastroenterology in [place], [place] [address] [place] [address] Jose Roberto Patterson M.D. 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
--- OUTSIDE RECORDS SUMMARY | 2023-09-03 15:32 | XMS_ITS | Encounter Summary ---
Author Organization [facility] Address [address] [place] [address] Care Team Providers Care Animal Feeder Name Role Phone Elsewhere, Pcp Primary Care Provider Unavailabl e Reason for Referral * MRI/CAT/PET Scan (Routine) - Closed Specialty Diagnoses / Procedures Referred By Contac t Referred To Contact Diagnoses Dyspnea Procedures PET CT Cardiac Perfusion Rest and Stress Tyrese España M.D. [address] [place] [address] [facility] Referral ID Status Reason Start Date Expiration Date Visits Re quested Visits Authorized [id number] Closed 07/04/2023 07/03/2024 1 1 Reason for Visit * MRI/CAT/PET Scan (Routine) - Closed Specialty Diagnoses / Procedures Referred By Contac t Referred To Contact Diagnoses Dyspnea Procedures PET CT Cardiac Perfusion Rest and Stress Tyrese España M.D. [address] [place] [address] [facility] Referral ID Status Reason Start Date Expiration Date Visits Re quested Visits Authorized [id number] Closed 07/04/2023 07/03/2024 1 1 Encounter Details Date Type Department Care Team (Latest Contact Info) Description 07/17/2023 9:53 AM CDT - 07/17/2023 11:59 PM CDT Hospital Encounter Department of Radiology, [facility], in [place], [place] 200 [place] [address] Tyrese España M.D. [address] [place] [address] Dyspnea Discharge Disposition: Home or Self Care [...] your living situation today? I have a [facility] place to live 01/01/2023 Sex [...] AM CDT Appointment Division of Gastroenterology in [place], [place] [address] [place] [address] Jose Roberto Patterson M.D. 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
--- OUTSIDE RECORDS SUMMARY | 2023-09-03 15:32 | XMS_ITS | Referral Summary ---
Author Organization [facility] Address [address] [place] [address] Care Team Providers Care Pierce And Shave Press Operator Name Role Phone Elsewhere, Pcp Primary Care Provider Unavailabl e Source Comments Patient records contain information from all sites at [facility]. For routine questions regarding patient records, call [phone] during business hours, M-F 8:00 AM - 5:00 PM Central Time. Record requests for emergency care only can be directed to [phone] at any time.[facility] Encounters Date Type Department Care Team Description 07/17/2023 9:53 AM CDT - 07/17/2023 11:59 PM CDT Hospital Encounter Department of Radiology, [facility], in [place], [place] [address] [place] [address] Tyrese España M.D. Dyspnea Discharge Disposition: Home or Self Care 07/11/2023 Clinical Communication Department of Nicotine Dependence, [facility], in [place], [place] [address] [place] [phone] Froy Can M.A. Nicotine Dependence 07/09/2023 Orders Only Division of Gastroenterology in [place], [place] [address] [place] [address] Jose Roberto Patterson M.D. Pain Abdominal Chronic (Primary Dx) 07/08/2023 11:10 AM CDT Ancillary Procedure Department of Gastroenterology 07/08/2023 11:07 AM CDT - 07/08/2023 11:59 PM CDT Hospital Encounter Department of Radiology, [facility], in [place], [place] [address] [place] [phone] Jose Roberto Patterson M.D. Pancreatitis Chronic (HCC) Discharge Disposition: Home or Self Care 07/08/2023 11:17 AM CDT Anesthesia Event Division of Gastroenterology in [address] [phone] Elizabeth May APRN, CRNA Kor, Benjamin T, M.D. 07/08/2023 9:36 AM CDT - 07/08/2023 11:06 AM CDT Hospital Encounter Division of Gastroenterology in [address] [phone] Jose Roberto Patterson M.D. Kiehne, Emily A, APRN, CRNA Pancreatitis Chronic (HCC) Discharge Disposition: Home or Self Care 07/04/2023 1:15 PM CDT Comprehensive Visit Department of Cardiovascular Medicine in [address] [address] Tyrese España M.D. Dyspnea (Primary Dx); Abnormal Findings On Diagnostic Imaging Of Heart And Coronary Circulation; Dyspnea On Exertion; Pain Chest 06/28/2023 Clinical Communication Department of Cardiovascular Medicine in [address] [phone] Fiona Smims, RCarlosNCarlos Abnormal Test Result (Elevated glucose) 06/28/2023 10:59 AM CDT - 06/28/2023 11:59 PM CDT Hospital Encounter Department of Cardiovascular Diseases in [address] [phone] Anna Santiago APRN C.N.P., M.S.N. Hypertension Essential Primary; Pain Chest; Shortness Of Breath Discharge Disposition: Home or Self Care 06/28/2023 9:53 AM CDT - 06/28/2023 10:58 AM CDT Hospital Encounter Department of Laboratory Medicine and Pathology, [facility], in [place], [place] [address] [place] [phone] Anna Santiago APRN, C.NAubrie., M.S.N. Hypertension Essential Primary; Pain Chest; Shortness Of Breath Discharge Disposition: Home or Self Care 06/26/2023 10:45 AM CDT Clinical Communication Virtual Review in [place], [place] 200 [place] [address] Pre-visit Intake 06/18/2023 Clinical Communication Division of Gastroenterology in [place], [place] [address] [place] [phone] Jose Roberto Patterson M.D. 06/10/2023 Clinical Communication Department of Cardiovascular Medicine in [place], [place] [address] [place] [phone] Prescheduling, Provider OSM - Outside Materials 06/10/2023 Clinical Communication Department of Cardiovascular Medicine in [place], [place] [address] [place] [phone] Prescheduling, Provider External Triage 06/05/2023 [facility] [address] [place] [address] Anne Esquivel, C.N.P. Diabetes Mellitus Type 2 (HCC) (Primary Dx) 06/03/[address] [address] Anne Esquivel, C.N.P. Abnormal Findings On Diagnostic [...] AM CDT Appointment Division of Gastroenterology in [place], [place] [address] [place] [address] Jose Roberto Patterson M.D. [address] [place] [address] Medical Devices Implanted Type Area Supervisor Crack Off Device Identifier Shelf Expiration Date Model / Serial / Lot [facility] Wdg 10fx22 - [id number] Implanted:Qty : 1 on 07/08/2023 by Jose Roberto Hays M.D. at [facility] [employer] Pancreatic [employer]ent [employer] 05/29/2026 [id number] / / [id number] Explanted Type Area Supervisor Crack Off Device Identifier Shelf Expiration Date Model / Serial / Lot [facility] 8.5fx22 - [id number] Implanted:Qty : 1 on 05/08/2023 by Alverto Bunch M.D. at [facility] [employer] Explanted:Qty : 1 on 07/08/2023 by Jose Roberto Hays M.D. at [facility] [employer] Pancreatic [employer] 03/12/2026 [id number] / / [id number] Description:8.5 x 12 Procedures Procedure Name Priority [...] OUTSIDE DX CHEST Routine 06/06/2023 10:35 AM ACROBATIC DANCER HEMOGLOBIN A1C, B Routine 02/19/2023 6:1 7 AM ACROBATIC DANCER EXTI LIPID PANEL, S Routine 11/22/2022 6 :39 PM CDT BI BREAST SCREENING UNILATERAL Routine 05/11/2011 2:00 PM ACROBATIC DANCER ALBUMIN, RANDOM, U Routine 05/04/2011 12:[address] CHEST WITH IV CONTRAST Routine 03/13/2011 1:35 PM ACROBATIC DANCER from Last 3 Months or Most Recently Relevant to Health Maintenance Results * PET CT Cardiac Perfusion Rest and Stress (07/17/2023 12:27 PM CDT) 07/17/2023 9:53 AM CDT Narrative KYLAH GARCIA - 07/17/2023 2:45 PM CDT See PDF For Result Procedure Note Ramos Hall M.D. - 07/17/2023 See PDF For Result Tyrees España M.D. IMG NM PROCEDURES Performing Organization Address [facility] Co de Phone Number KYLAH [employer] NA * Glucose, POCT (07/08/2023 12:30 PM CDT) Only the most recent of3 resultswithin the time period is included. [facility] Signature Glucose, POCT, B 86 70 - 140 mg/dL 07/08/2023 12:43 PM CDT PCMO Blood 07/08/2023 12:3 0 PM CDT 07/08/2023 12:43 PM CDT Unknown Provider LAB POCT ORDERABLES- MANUAL Performing Organization Address [facility] Co de Phone Number POC RST ORIENTAL ORTHODOX OUTPATIENT LABS [address] PCMO [facility]OC 200 [place] [address] * [place] Fluoro Less Than 1 Hour (07/08/2023 12:16 PM CDT) Narrative ERCP LOS RST - 07/08/2023 12:17 PM CDT This exam does not require a radiologist review or interpretation. Please refer to the patient's medical record on this date for clinical details. Jose Roberto Patterson M.D. IMG FLUOROSCOP Y PROCEDURES Performing Organization Address [facility] Co de Phone Number ERCP LOS RST [...] ETT location: oral VL device: glide scope [place] scope blade size: 3 Tube size: 7 [...] A pancreatic stent was visible on the prepleater film. The esophagus was ? successfully intubated [...] Santiago APRN, C.N.P., M.S.N. LAB BLOOD ADD-ON [facility] [address] [place] [address], [facility] DTL [facility] [address] [place] [address] * (ABNORMAL) CBC with Differential, Blood (06/28/2023 [...] Sandra Wong APRNNAubrie., M.S.N. LAB BLOOD ADD-ON [facility] [address] [place] [address], [facility] DTL [facility] 200 [place] [address] [facility] 200 [place] [address] * (ABNORMAL) Comprehensive Metabolic Panel (06/28/2023 10:28 [...] Mona Momin APRN.N.Santi., M.S.N. LAB BLOOD ADD-ON [facility] 200 [place] [address], [facility] 200 [place] [address] * ECG 12 Lead (06/28/2023 9:58 AM CDT) Ventricular Rate ECG/Min 73 BPM MUSE SC Interval 174 ms MUSE QRSD Interval 102 ms MUSE QT Interval 424 ms MUSE QTC Interval 467 ms MUSE P [place] 64 degrees MUSE R [place] 79 degrees MUSE T Wave [place] 71 degrees MUSE 06/28/2023 9:58 AM CDT [...] C.N.P., M.S.N. ECG ORDERABLES Performing Organization Address [facility] Co de Phone Number MUSE NA * XR chest 2V-Outside Chest Xray (06/06/2023 10:35 AM ACROBATIC DANCER) Narrative IIMS - 06/12/2023 3:33 PM CDT [...] DIAGNOSTIC IM AGING PROCEDURES Performing Organization Address [facility] de Phone Number IIKY NA * (ABNORMAL) Hemoglobin A1c (02/19/2023 6:17 AM ACROBATIC DANCER) Hemoglobin A1c, B 7.8(H) 4.0 - 5.6 % 02/19/2023 7:11 AM ACROBATIC DANCER DTL Comment: Hemoglobin A1c values greater than or equal to 6.5 percent are diagnostic for diabetes mellitus. ??Diagnosis should be confirmed by repeat testing. ??In diabetic patients, HbA1c goals should be discussed with healthcare provider. Blood (Blood, Venous) 02/19/2023 6:17 AM ACROBATIC DANCER 02/19/2023 6:33 AM ACROBATIC DANCER Luis Andrew M.D., M.P.H. LAB BLOOD ADD-ON Performing Organization Address [facility] Co de Phone Number [facility] [address] [place] [address], [place] DTL [facility] [address] [place] [address] * BI Breast Screening (05/11/2011 2:00 PM ACROBATIC DANCER) Anatomical Region Laterality Modality Breast N/A Mammography 05/11/2011 2:00 PM ACROBATIC DANCER Impressions 05/11/2011 2:46 PM ACROBATIC DANCER NEGATIVE There is no mammographic evidence of malignancy. ?? RECOMMENDATION: A 1 year screening mammogram is recommended. ?? The patient will receive a letter notifying her of the results. ?? Justin Landa M.D. ? dla/penrad:05/11/2011 14:46:05 ?? letter sent: 1S/2S - Negative Screen ?? Mammogram BI-RADS: 1 Negative Electronically signed by: ?? Reba ??Syeda LOUIS ??[id number] 11-May-2011 14:46 Narrative 05/11/2011 2:46 PM ACROBATIC DANCER 11-May-2011 14:00:00 ??Exam: B MG /Screening Exam [...] 11-May-2011 14:46 Nathaly Breaux M.D. IMG BI SC OCEDURES * (ABNORMAL) Microalbumin, Random, Urine (05/04/2011 12:00 PM ACROBATIC DANCER) Creatinine, Random, U 74.9 30.0 - 125.0 MGDL POWERCHART HXU Albumin % 24.4 12.0 - 30.0 MGL POWERCHART Albumin/Creatin ine Ratio 33(H) 0 - 25 MGGM POWERCHART Urine 05/04/2011 12:0 0 PM ACROBATIC DANCER Nathaly Breaux M.D. LAB URINE ORDERABLES POWERCHART * CT Chest with IV Contrast (03/13/2011 1:35 PM ACROBATIC DANCER) Anatomical Region Laterality Modality Chest N/A Computed Tomogra phy 03/13/2011 1:35 PM ACROBATIC DANCER Impressions 03/13/2011 1:56 PM ACROBATIC DANCER No pulmonary emboli. FINDINGS: Suboptimal contrast bolus [...] [id number] 13-Mar-2011 13:56 Narrative 03/13/2011 1:56 PM ACROBATIC DANCER 13-Mar-2011 13:35:00 ??Exam: CT CHEST w Indications: [...] [id number] Electronically signed by: Mello Rivera MD [id number] 13-Mar-2011 13:56 [address]aly [address]aux M[address]D. IMG CT SC OCEDURES from Last 3 Months or Most Recently Relevant to Health Maintenance Advance Directives For more information, please contact: [phone] Documents on File Type Date Recorded Patient Sat Instructor Expl anation Advance Directives 09/17/2011 12:00 AM Leg acy document. See document viewer. * Full Code (Latest Code Status on File) Date Activated Date Inactivated Comments 10/23/2022 2:51 PM 10/25/2022 1:26 AM Question Answer Comments Full Code: Discussed Care Teams Pierce And Shave Press Operator Relationship Specialty Start Date End Date Elsewhere, Pcp PCP - General Internal Medicine 06/26/22
--- OUTSIDE RECORDS SUMMARY | 2023-09-03 15:32 | XMS_ITS | Encounter Summary ---
Author Organization [facility] Address [address] [place] [address] Care Team Providers Care Cardiology Consultants Name Role Phone Elsewhere, Pcp Primary Care Provider Unavailabl e Encounter Details Date Type Department Care Team (Late st Contact Info) Description 07/08/2023 11:17 AM CDT Anesthesia Event Division of Gastroenterology in [place], [place] [address] [place] [phone] Elizabeth May APRN, COST RECOVERY TECHNICIAN [address] [place] [phone] Marvel Castaneda M.D. [address] [place] [phone] Anesthesia Record Procedure Summary Procedure Name Responsible [...] living situation today? I have a [facility] place to live 01/01/2023 Sex and Gender Information Value Date Recorded Sex Assigned at Female 01/01/2023 9:08 AM CDT Gender Identity Female 01/01/2023 9:08 AM CDT Sexual Orientation Straight 01/01/2023 9: 08 AM CDT documented as of this encounter OR Notes * Anesthesia Postprocedure Evaluation - Elizabeth aMy APRN, CRNA - 07/08/2023 12:25 PM CDT Patient: Yary Prince Procedure Summary Date: 07/08/23 Room / Location: Division of Gastroenterology in [place], [place] Anesthesia Start: 1117 Anesthesia Stop: 1225 [...] ETT location: oral VL device: glide scope Rudolph scope blade size: 3 Tube size: 7 [...] (HCC) [K86.1] Location: Division of Gastroenterology in [place], [place] Pertinent components of the patient's history [...] with patient /legal guardian or through an web press operator helper offset. Risks/Benefits/Alternatives of Blood transfusion discussed with patient [...] AM CDT Appointment Division of Gastroenterology in [place], [place] [address] [place] [address] Jose Roberto Patterson M.D. [address] [place] [address] documented as of this encounter Procedures Procedure [...] ETT location: oral VL device: glide scope Rudolph scope blade size: 3 Tube size: 7 [...] Depression Total Score: 21 012 10:33 AM VACCINE SPECIALIST documented as of this encounter Care Teams Cardiology Consultants Relationship Specialty Start Date End Date Elsewhere, Pcp PCP - General Internal Medicine 06/26/22 documented as of this encounter
--- OUTSIDE RECORDS SUMMARY | 2023-09-03 15:33 | XMS_ITS | Encounter Summary ---
Author Organization [facility] Address [address] [place] [address] Care Team Providers Care Rate Analyst Name Role Phone Elsewhere, Pcp Primary Care Provider Unavailabl e Reason for Referral * Outpatient (Routine) - Closed Specialty Diagnoses / Procedures Referred By Olivia gonzalez Referred To Contact Diagnoses Hypertension Essential Primary Pain Chest Shortness Of Breath Procedures Echo Transthoracic (TTE) Anna Arroyo APRN, C.NAbner, M.S.N. [address] [place] [phone] [facility] Referral ID Status Reason Start Date Expiration Date Visits Re quested Visits Authorized [id number] Closed 06/14/2023 06/13/2024 1 1 * Outpatient (Routine) - Closed Specialty Diagnoses / Procedures Referred By Olivia gonzalez Referred To Contact Diagnoses Hypertension Essential Primary Pain Chest Shortness Of Breath Procedures ECG 12 Lead Anna Arroyo APRN, C.NAbner, M.S.N. [address] [place] [phone] [facility] Referral ID Status Reason Start Date Expiration Date Visits Re quested Visits Authorized [id number] Closed 06/14/2023 06/13/2024 1 1 Reason for Visit * Reason Onset Date Comments External Triage 06/10/2023 Encounter Details Date Type Department Care Team (Latest Contact Info) Description 06/10/2023 Clinical Communication Department of Cardiovascular Medicine in [place], [place] [address] [place] [address] Prescheduling, Provider External Triage Social History Tobacco [...] your living situation today? I have a [facility] place to live 01/01/2023 Sex [...] a 68 y.o. year old female from [address] [place] [phone]. She is externallyreferred for Tricuspid valve stenosis, [...] Provider Referral: Provider Referral: ANNABELLE GALLOWAY [address] [facility] [phone] Primary Cardiac Concern: Tricuspid valve stenosis, heart [...] COPD/Emphysema Primary Care Provider: (name/facility) ANNABELLE GALLOWAY [address] [place] [phone] Electronic Warfare Technical: (name/facility) N/a Status of Records: (Requested, in Care Everywhere, etc.) in Care Everywhere Other: Questions were done with pt . documented in this encounter Plan of Treatment Upcoming Encounters Date Type Department Care Team (Late st Contact Info) Description 10/14/2023 10:30 AM CDT Appointment Division of Gastroenterology in [place], [place] [address] [place] [address] Jose Roberto Patterson M.D. [address] [place] [address] documented as of this encounter Results * (TTE) 2D ECHO DOPPLER COLOR (06/28/2023 2:01 PM CDT) [facility] Ejection Fraction 66 MC CV EIMS Sinus [...] Metabolic Panel (06/28/2023 10:28 AM CDT) Pathologist [facility] Potassium, S 4.3 3.6 - 5.2 mmol/L [...] Arroyo APRN C.N.P., M.S.N. LAB BLOOD ADD-ON [facility] [address] [place] [address], [facility] [address] [place] [address] * NT-Pro B-Type Natriuretic Peptide (BNP) (06/28/2023 [...] Arroyo APRN, C.N.P., M.S.N. LAB BLOOD ADD-ON [facility] [address] [place] [address], [facility] [address] [place] [address] * (ABNORMAL) CBC with Differential, Blood (06/28/2023 10:28 AM CDT) Pathologist [facility] Hemoglobin 12.5 11.6 - 15.0 g/dL 06/28/2023 [...] Sandra Momin APRNN.P., M.S.N. LAB BLOOD ADD-ON [facility] 200 [place] [address], [place] DTL [facility] [address] [place] [address] DHPM [facility] 200 [place] [address] * ECG 12 Lead (06/28/2023 9:58 AM CDT) Ventricular Rate ECG/Min 73 BPM MUSE ME Interval 174 ms MUSE QRSD Interval 102 ms MUSE QT Interval 424 ms MUSE QTC Interval 467 ms MUSE P [place] 64 degrees MUSE R [place] 79 degrees MUSE T Wave [place] 71 degrees MUSE 06/28/2023 9:58 AM CDT [...] Total Score: 21 05/31/ 012 10:33 AM LAY UPS ASSEMBLER documented as of this encounter Care Teams Rate Analyst Relationship Specialty Start Date End Date Elsewhere, Pcp PCP - General Internal Medicine 06/26/22 documented as of this encounter
--- OUTSIDE RECORDS SUMMARY | 2023-09-03 15:33 | XMS_ITS | Encounter Summary ---
Author Organization [facility] Address [address] [place] [address] Care Team Providers Care Police Commanding Officer Name Role Phone Elsewhere, Pcp Primary Care Provider Unavailabl e Reason for Referral * MRI/CAT/PET Scan (Routine) - Closed Specialty Diagnoses / Procedures Referred By Contac t Referred To Contact Diagnoses Dyspnea Procedures PET CT Cardiac Perfusion Rest and Stress Tyrese España M.D. [address] [place] [address] [facility] Referral ID Status Reason Start Date Expiration Date Visits Re quested Visits Authorized [id number] Closed 07/04/2023 07/03/2024 1 1 Reason for Visit * Outpatient (Routine) - Closed Specialty Diagnoses / Procedures Referred By Contac t Referred To Contact Cardiovascular Disease Diagnoses Abnormal Findings On Diagnostic Imaging Of Heart And Coronary Circulation Dyspnea Anne Esquivel CCarlosNCarlosPCarlos [address] [place] [address] [facility] Referral ID Status Reason Start Date Expiration Date Visits Re quested Visits Authorized [id number] Closed 06/03/2023 12/02/2024 1 1 Encounter Details Date Type Department Care Team (Latest Contact Info) Description 07/04/2023 1:15 PM CDT Comprehensive Visit Department of Cardiovascular Medicine in [place], [place] [address] [place] [address] Tyrese España M.D. [address] [place] [address] Dyspnea (Primary Dx); Abnormal Findings On Diagnostic [...] your living situation today? I have a [facility] place to live 01/01/2023 Sex and [...] PM CDT REFERRAL SOURCE Anne Esquivel, C.N.P. [address] [place] [phone] CHIEF COMPLAINT / REASON FOR VISIT Dyspnea, [...] She recently underwent an echocardiographic examination at [place] which showed essentially a structurally normal heart [...] AM CDT Appointment Division of Gastroenterology in [place], [place] [address] [place] [address] Jose Roberto Patterson M.D. [address] [place] [address] documented as of this encounter Results * [...] Total Score: 21 05/31/ 012 10:33 AM GUNITE NOZZLE OPERATOR documented as of this encounter Care Teams Police Commanding Officer Relationship Specialty Start Date End Date Elsewhere, Pcp PCP - General Internal Medicine 06/26/22 documented as of this encounter
--- OUTSIDE RECORDS SUMMARY | 2023-09-03 15:33 | XMS_ITS | Encounter Summary ---
Author Organization [facility] Address [address] [place] [address] Care Team Providers Care Poultry Service Technician Name Role Phone Elsewhere, Pcp Primary Care Provider Unavailabl e Reason for Visit * Reason Onset Date Comments Abnormal Test Result 06/28/2023 Elevated gl ucose Encounter Details Date Type Department Care Team (Latest Contact Info) Description 06/28/2023 Clinical Communication Department of Cardiovascular Medicine in [place], [place] [address] [place] [phone] Fiona Simms R.N. [address] [place] [phone] Abnormal Test Result (Elevated glucose) Social History [...] she clarified that she had eaten at [employer] prior to the draw and had syrup on her pancakes and she knew it would be high. She is feeling fine and has made adjustments. documented in this encounter Plan of Treatment Upcoming Encounters Date Type Department Care Team (Late st Contact Info) Description 10/14/2023 10:30 AM CDT Appointment Division of Gastroenterology in [place], [place] [address] [place] [phone] Jose Roberto Patterson M.D. [address] [place] [address] documented as of this encounter Visit Diagnoses Not on filedocumented in this encounter Additional Health Concerns Assessment Noted Time PHQ-9 Depression Total Score: 21 012 10:33 AM WAREHOUSE SHIPPER documented as of this encounter Care Teams Poultry Service Technician Relationship Specialty Start Date End Date Elsewhere, Pcp PCP - General Internal Medicine 06/26/22 documented as of this encounter
--- OUTSIDE RECORDS SUMMARY | 2023-09-03 15:33 | XMS_ITS | Encounter Summary ---
Author Organization [facility] Address [address] [place] [address] Care Team Providers Care Master Mechanic Name Role Phone Elsewhere, Pcp Primary Care Provider Unavailabl e Encounter Details Date Type Department Care Team (Latest Contact Info) Description 06/28/2023 9:53 AM CDT - 06/28/2023 10:58 AM CDT Hospital Encounter Department of Laboratory Medicine and Pathology, [facility], in [place], [place] [address] [place] [phone] Anna Santiago, ATUL, C.N.P., M.S.N. [address] [place] [phone] Hypertension Essential Primary; Pain Chest; Shortness Of [...] your living situation today? I have a [facility] place to live 01/01/2023 Sex and [...] AM CDT Appointment Division of Gastroenterology in [place], [place] [address] [place] [address] Jose Roberto Patterson M.D. [address] [place] [address] documented as of this encounter Procedures Procedure [...] Comprehensive Metabolic Panel (06/28/2023 10:28 AM CDT) [facility] Potassium, S 4.3 3.6 - 5.2 mmol/L [...] Mona Momin APRN.N.P., M.S.N. LAB BLOOD ADD-ON [facility] [address] 200 [place] [address] * NT-Pro B-Type Natriuretic Peptide (BNP) (06/28/2023 10:28 AM CDT) [facility] NT-Pro BNP 93 <=540 pg/mL 06/28/2023 11:55 [...] Sandra Momin APRNNAubrie., M.S.N. LAB BLOOD ADD-ON [facility] 200 [place] [address] * (ABNORMAL) CBC with Differential, Blood (06/28/2023 10:28 AM CDT) [facility] Hemoglobin 12.5 11.6 - 15.0 g/dL 06/28/2023 [...] Mona Momin APRN.N.P., M.S.N. LAB BLOOD ADD-ON [facility] 200 [place] [address], [facility] DTL [facility] 200 [place] [address] DHPM [facility] 200 [place] [address] documented in this encounter Visit Diagnoses Diagnosis Hypertension Essential Primary Pain Chest Shortness Of Breath documented in this encounter Additional Health Concerns Assessment Noted Time PHQ-9 Depression Total Score: 21 012 10:33 AM ZOO VETERINARIAN documented as of this encounter Care Teams Master Mechanic Relationship Specialty Start Date End Date Elsewhere, Pcp PCP - General Internal Medicine 06/26/22 documented as of this encounter
--- OUTSIDE RECORDS SUMMARY | 2023-09-03 15:33 | XMS_ITS | Encounter Summary ---
Author Organization [facility] Address [address] [place] [address] Care Team Providers Care Learning Technologies Specialist Name Role Phone Elsewhere, Pcp Primary Care Provider Unavailabl e Encounter Details Date Type Department Care Team (Latest Contact Info) Description 06/18/2023 Clinical Communication Division of Gastroenterology in [place], [place] [address] [place] [address] Jose Robreto Patterson M.D. [address] [place] [address] Social History Tobacco Use Types Packs/Day Years [...] your living situation today? I have a [facility] place to live 01/01/2023 Sex and [...] AM CDT Appointment Division of Gastroenterology in [place], [place] [address] [place] [address] Jose Roberto Patterson M.D. [address] [place] [address] documented as of this encounter Visit Diagnoses Not on filedocumented in this encounter Additional Health Concerns Assessment Noted Time PHQ-9 Depression Total Score: 21 012 10:33 AM ENVIRONMENTAL SOLUTIONS ENGINEER documented as of this encounter Care Teams Learning Technologies Specialist Relationship Specialty Start Date End Date Elsewhere, Pcp PCP - General Internal Medicine 06/26/22 documented as of this encounter
--- OUTSIDE RECORDS SUMMARY | 2023-09-03 15:33 | XMS_ITS | Encounter Summary ---
Author Organization [facility] Address [address] [place] [address] Care Team Providers Care Cashier Assistant Name Role Phone Elsewhere, Pcp Primary Care Provider Unavailabl e Reason for Visit * Reason Onset Date Comments [facility] - Outside Materials 06/10/2023 Encounter Details Date Type Department Care Team (Latest Contact Info) Description 06/10/2023 Clinical Communication Department of Cardiovascular Medicine in [place], [place] [address] [place] [address] Prescheduling, Provider [facility] - Outside Materials Social [...] your living situation today? I have a [facility] place to live 01/01/2023 Sex and [...] reports and images Yes Last 1 year: Holter/Event/Precision Instrument Maker/Cardiac Device reports and tracings No ECG tracings Yes Labs test results Yes Facility and Date Completed:[facility] [address] [facility] [phone] Appointment Scheduled: No Do you want a [...] AM CDT Appointment Division of Gastroenterology in [place], [place] [address] [place] [address] Jose Roberto Patterson M.D. [address] [place] [address] documented as of this encounter Visit Diagnoses Not on filedocumented in this encounter Additional Health Concerns Assessment Noted Time PHQ-9 Depression Total Score: 21 012 10:33 AM CHAPERON documented as of this encounter Care Teams Cashier Assistant Relationship Specialty Start Date End Date Elsewhere, Pcp PCP - General Internal Medicine 06/26/22 documented as of this encounter
--- OUTSIDE RECORDS SUMMARY | 2023-09-03 15:33 | XMS_ITS | Encounter Summary ---
Author Organization [facility] Address [address] [place] [address] Care Team Providers Care Veneer Splicer Name Role Phone Elsewhere, Pcp Primary Care Provider Unavailabl e Reason for Referral * Outpatient (Routine) - Closed Specialty Diagnoses / Procedures Referred By Contgriffin t Referred To Contact Cardiovascular Disease Diagnoses Abnormal Findings On Diagnostic Imaging Of Heart And Coronary Circulation Dyspnea Anne Esquivel C.N.P. [address] [place] [address] [facility] Referral ID Status Reason Start Date Expiration Date Visits Re quested Visits Authorized [id number] Closed 06/03/2023 12/02/2024 1 1 E CAPTAIN Encounter Details Date Type Department Care Team (Late st Contact Info) Description 06/03/2023 [facility] [address] [place] [address] Anne Esquivel C.N.P. [address] [place] [phone] Abnormal Findings On Diagnostic Imaging Of Heart [...] AM CDT Appointment Division of Gastroenterology in [place], [place] [address] [place] [address] Jose Roberto Patterson M.D. [address] [place] [address] Scheduled Referrals Name Type Priority Associated Diagnoses [...] Total Score: 21 05/31/ 012 10:33 AM BARGE CAPTAIN documented as of this encounter Care Teams Veneer Splicer Relationship Specialty Start Date End Date Elsewhere, Pcp PCP - General Internal Medicine 06/26/22 documented as of this encounter
--- OUTSIDE RECORDS SUMMARY | 2023-09-03 15:33 | XMS_ITS | Encounter Summary ---
Author Organization [facility] Address [address] [place] [address] Care Team Providers Care Clinical Outcomes Manager Name Role Phone Elsewhere, Pcp Primary Care Provider Unavailabl e Reason for Referral * Outpatient (Routine) - Authorized Specialty Diagnoses / Procedures Referred By Contgriffin t Referred To Contact Endocrinology Diagnoses Diabetes Mellitus Type 2 (HCC) Anne Esquivel, C.N.P. [address] [place] [address] [facility] Referral ID Status Reason Start Date Expiration Date V isits Requested Visits Authorized [id number] Authorized 06/05/2023 12/04/2024 1 1 K MAKER Encounter Details Date Type Department Care Team (Late st Contact Info) Description 06/05/2023 [facility] AND [facility] [address] [place] [address] Anne Esquivel C.N.P. [address] [place] [address] Diabetes Mellitus Type 2 (HCC) [...] AM CDT Appointment Division of Gastroenterology in [place], [place] [address] [place] [address] Jose Roberto Patterson M.D. [address] [place] [address] Scheduled Referrals Name Type Priority Associated Diagnoses Order Schedule Endocrinology Referral Outpatient Referral Routine Diabetes Mellitus Type 2 (HCC) Expected: 06/05/2023 (Approximate), Expires: 09/04/2024 documented as of this encounter Visit Diagnoses Diagnosis Diabetes Mellitus Type 2 (HCC)- Primary documented in this encounter Additional Health Concerns Assessment Noted Time PHQ-9 Depression Total Score: 21 012 10:33 AM CLOCK MAKER documented as of this encounter Care Teams Clinical Outcomes Manager Relationship Specialty Start Date End Date Elsewhere, Pcp PCP - General Internal Medicine 06/26/22 documented as of this encounter
--- OUTSIDE RECORDS SUMMARY | 2023-09-03 15:33 | XMS_ITS | Encounter Summary ---
Author Organization [facility] Address [address] [place] [address] Care Team Providers Care Pulp Cooker Name Role Phone Elsewhere, Pcp Primary Care Provider Unavailabl e Reason for Referral * Outpatient (Routine) - Closed Specialty Diagnoses / Procedures Referred By Contac t Referred To Contact Diagnoses Pancreatitis Chronic (HCC) Procedures ERCP Jose Roberto Patterson M.D. 200 [place] [address] [facility] Referral ID Status Reason Start Date Expiration Date Visits Re quested Visits Authorized [id number] Closed 05/09/2023 05/08/2024 1 1 Reason for Visit * Outpatient (Routine) - Closed Specialty Diagnoses / Procedures Referred By Olivia gonzalez Referred To Contact Diagnoses Pancreatitis Chronic (HCC) Procedures ERCP Jose Roberto Patterson M.D. 200 [place] [address] [facility] Referral ID Status Reason Start Date Expiration Date Visits Re quested Visits Authorized [id number] Closed 05/09/2023 05/08/2024 1 1 Encounter Details Date Type Department Care Team (Latest Contact Info) Description 07/08/2023 9:36 AM CDT - 07/08/2023 11:06 AM CDT Hospital Encounter Division of Gastroenterology in [place], [place] [address] [place] [phone] Jose Roberto Patterson M.D. [address] [place] [phone] Elizabeth May APRN, MERCURY CELL CLEANER [address] [place] [phone] Pancreatitis Chronic (HCC) Discharge Disposition: Home or [...] * About Your ERCP (Endoscopic Retrograde Cholangiopancreatography) (Liberian) documented in this encounter Medications at Time [...] AM CDT Appointment Division of Gastroenterology in [place], [place] [address] [place] [address] Jose Roberto Patterson M.D. [address] [place] [address] Scheduled Orders Name Type Priority Associated Diagnoses [...] Provider LAB POCT ORDERABLES- MANUAL [facility]OC [facility] 200 [place] [address], [place] PCMO [facility] POC 200 [place] [address] * ERCP (07/08/2023 11:09 AM CDT) 07/08/2023 11:0 9 AM CDT Impressions [facility] - 07/08/2023 5:09 PM CDT Post-op Diagnoses: [...] placed in the main pancreatic duct. Narrative [facility] - 07/08/2023 5:09 PM CDT Gonda 2 [...] A pancreatic stent was visible on the zinc etcher film. The esophagus was ? successfully intubated [...] Roberto Patterson M.D. GI PROCEDURE O RDERABLES [facility] NA * (ABNORMAL) Glucose, POCT (07/08/2023 10:31 AM CDT) Glucose, POCT, B 150(H) 70 - 140 mg/dL 07/08/2023 10:32 AM CDT PCMO Site Capillary 07/08/2023 10:32 AM CDT PCMO Blood 07/08/2023 10:3 1 AM CDT 07/08/2023 10:33 AM CDT Unknown Provider LAB POCT ORDERABLES- MANUAL Performing Organization Address [facility] Co de Phone Number POC [facility] [address] [facility]OC 200 [place] [address] * Glucose, POCT (07/08/2023 10:06 AM CDT) Glucose, POCT, B 74 70 - 140 mg/dL 07/08/2023 10:32 AM CDT PCMO Blood 07/08/2023 10:0 6 AM CDT 07/08/2023 10:33 AM CDT Unknown Provider LAB POCT ORDERABLES- MANUAL Performing Organization Address City/[facility] Co de Phone Number [facility] [address] [facility] 200 [place] [address] documented in this encounter Visit Diagnoses Diagnosis [...] Depression Total Score: 21 012 10:33 AM HIGH LIFT OPERATOR documented as of this encounter Care Teams Pulp Cooker Relationship Specialty Start Date End Date Elsewhere, Pcp PCP - General Internal Medicine 06/26/22 documented as of this encounter
--- OUTSIDE RECORDS SUMMARY | 2023-09-03 15:33 | XMS_ITS | Clinical Summary ---
Author Organization [facility] Address [address], [place] [address] Care Team Providers Care Batch Trucker Name Role Phone Lew Grewal MD Primary Care Provider [phone] Source Comments You are receiving this document as you are listed as the primary care provider,follow-up provider, or the patient has been referred to you for consultation.This is in compliance with the Medicare and[facility] EHR Incentive Program,which states Providers who transition their patient to another setting of careor provider of care or refers their patient to another provider of care shouldprovide summary care record for each transition of care or referral. [employer] Allergies Active Allergy Reactions Criticality Noted Date [...] Reflex In-House (01/12/2019 2:27 PM CDT) Pathologist [facility] Hepatitis C Antibody Negative (Non Reactive) Negative (Non Reactive) 01/12/2019 7:42 PM CDT [facility] Comment:Antibodies to HCV no t detected. Does not exclude the possiblity of exposure to HCV. Blood Venipuncture / Unknown 01/12/2019 2:27 PM CDT 01/12/2019 2:27 PM CDT Kenrick Juarez MD LAB_1 [facility] [address] * BASIC METABOLIC PANEL (10/19/2010 2:58 PM CDT) [facility] BUN 14 7 - 20 mg/dl [facility] Sodium 140 135 - 145 mmol/L [facility] Potassium 4.5 3.5 - 5.3 mmol/L [facility] Chloride 101 95 - 106 mmol/L [facility] CO2 27 22 - 30 mmol/L [facility] Glucose 151 70 - 180 mg/dl [facility] Creatinine 0.76 0.52 - 1.04 mg/dl [facility] GFR, Estimated >60.0 >60 ml/min/1.7 3m2 [facility] GFR, Est., If Black >60.0 >60 ml/min/1.7 3m2 [facility] Calcium 9.8 8.4 - 10.2 mg/dl [facility] Anion Gap (calc.) 12 7 - 16 mmol/L [facility] 10/19/2010 2:58 PM CDT 10/19/2010 3:04 PM CDT Marcello Monterroso MD LAB_1 Performing Organization Address [facility] Co de Phone Number [facility] [address] [phone] * (ABNORMAL) HGB A1C (10/19/2010 2:58 PM CDT) Hgb A1c 8.9(H) 4.3 - 6.1 % [facility] Comment: The usual A1C goal for people with diabetes, age 18-75, is < 7.0%. Physicians may recommend a higher or lower goal for specific individuals. 10/19/2010 2:58 PM CDT 10/19/2010 3:04 PM CDT Marcello Monterroso MD LAB_1 Performing Organization Address [facility] de Phone Number [facility] [address] [phone] * MAMMOGRAM BILATERAL DIAGNOSTIC (11/05/2003 3:06 PM [...] BREAST MASS RT BREAST, ??PREV DONE AT [facility], Julius Tanner MD RAD MAMMO/RH from Last 3 Months or Most Recently Relevant to Health Maintenance Care Teams Batch Trucker Relationship Specialty Start Date End Date Lew Grewal MD [address] [facility] [place] [address] PCP - General Family Practice 12/10/18
--- OUTSIDE RECORDS SUMMARY | 2023-09-03 15:33 | XMS_ITS | Encounter Summary ---
Author Organization [facility] Address [address] [place] [address] Care Team Providers Care Planograph Operator Name Role Phone Elsewhere, Pcp Primary Care Provider Unavailabl e Reason for Visit * Reason Onset Date Comments Pre-visit Intake 06/26/2023 Encounter Details Date Type Department Care Team (Latest Contact Info) Description 06/26/2023 10:45 AM CDT Clinical Communication Virtual Review in [address] [phone] Pre-visit Intake Social History Tobacco Use Types [...] your living situation today? [facility] 01/01/2023 Sex and [...] AM CDT Appointment Division of Gastroenterology in [place], [place] [address] [place] [address] Jose Roberto Patterson M.D. [address] [place] [address] documented as of this encounter Visit Diagnoses Not on filedocumented in this encounter Additional Health Concerns Assessment Noted Time PHQ-9 Depression Total Score: 21 012 10:33 AM HOME CARE NURSE documented as of this encounter Care Teams Planograph Operator Relationship Specialty Start Date End Date Elsewhere, Pcp PCP - General Internal Medicine 06/26/22 documented as of this encounter
--- OUTSIDE RECORDS SUMMARY | 2023-09-03 15:33 | XMS_ITS | Encounter Summary ---
Author Organization [facility] Address [address] [place] [address] Care Team Providers Care Pulper Operator Name Role Phone Elsewhere, Pcp Primary Care Provider Unavailabl e Reason for Referral * Outpatient (Routine) - Closed Specialty Diagnoses / Procedures Referred By Olivia gonzalez Referred To Contact Diagnoses Hypertension Essential Primary Pain Chest Shortness Of Breath Procedures Echo Transthoracic (TTE) Anna Santiago APRN, C.NAbner, M.S.N. [address] [place] [phone] [facility] Referral ID Status Reason Start Date Expiration Date Visits Re quested Visits Authorized [id number] Closed 06/14/2023 06/13/2024 1 1 Reason for Visit * Outpatient (Routine) - Closed Specialty Diagnoses / Procedures Referred By Contgriffin gonzalez Referred To Contact Diagnoses Hypertension Essential Primary Pain Chest Shortness Of Breath Procedures Echo Transthoracic (TTE) Anna aSntiago APRN, C.NAbner, M.S.N. [address] [place] [phone] [facility] Referral ID Status Reason Start Date Expiration Date Visits Re quested Visits Authorized [id number] Closed 06/14/2023 06/13/2024 1 1 Encounter Details Date Type Department Care Team (Latest Contact Info) Description 06/28/2023 10:59 AM CDT - 06/28/2023 11:59 PM CDT Hospital Encounter Department of Cardiovascular Diseases in [place], [place] [address] [place] [address] Anna Santiago APRN, C.N.PCarlos, M.S.N. [address] [place] [address] Hypertension Essential Primary; Pain Chest; Shortness Of [...] your living situation today? I have a [facility] to live 01/01/2023 Sex and Gender [...] AM CDT Appointment Division of Gastroenterology in [place], [place] [address] [place] [address] Jose Roberto Patterson M.D. [address] [place] [address] documented as of this encounter Procedures Procedure [...] Total Score: 21 05/31/ 012 10:33 AM CLIENT TECHNICAL SUPPORT ASSOCIATE documented as of this encounter Care Teams Pulper Operator Relationship Specialty Start Date End Date Elsewhere, Pcp PCP - General Internal Medicine 06/26/22 documented as of this encounter
--- OUTSIDE RECORDS SUMMARY | 2023-09-03 15:33 | XMS_ITS | Encounter Summary ---
Author Organization [facility] Address [address] [place] [address] Care Team Providers Care Rides Attendant Name Role Phone Elsewhere, Pcp Primary Care Provider Unavailabl e Reason for Visit * Reason Onset Date Comments Previsit Preparation 11/09/2022 Pancreas 11/09/2022 [facility] 11/09/2022 [facility] Encounter Details Date Type Department Care Team (Latest Contact Info) Description 11/09/2022 Clinical Communication Division of Gastroenterology in [place], [place] [address] [place] [address] Provider, Unknown Previsit Preparation; Pancreas; [facility] ([facility]/) [...] living situation today? I have a [facility] place to live 01/01/2023 Sex [...] AM CDT Appointment Division of Gastroenterology in [place], [place] [address] [place] [address] Jose Roberto Patterson M.D. [address] [place] [address] documented as of this encounter Visit Diagnoses Not on filedocumented in this encounter Additional Health Concerns Assessment Noted Time PHQ-9 Depression Total Score: 21 012 10:33 AM LIBRARY CLERK documented as of this encounter Care Teams Rides Attendant Relationship Specialty Start Date End Date Elsewhere, Pcp PCP - General Internal Medicine 06/26/22 documented as of this encounter
== END 2023-09-03 15:28 | disposition home or self-care (01) ==
PROVIDERS: PCP Nurse Practitioner Family; Visit Provider Nurse Practitioner Family
DX: E11.65 Type 2 diabetes mellitus with hyperglycemia (principal); R63.4 Abnormal weight loss; K62.5 Hemorrhage of anus and rectum
CPT/HCPCS: 80053; 83036; 85025

== ENCOUNTER 2023-12-10 13:34 | Outpatient (CLI) | payer OTHER, SELFPAY ==
--- OUTSIDE RECORDS SUMMARY | 2023-12-14 17:25 | XMS_ITS | Encounter Summary ---
Author Organization [facility] Address [address] [place] [address] Care Team Providers Care Comptometrist Name Role Phone Elsewhere, Pcp Primary Care Provider Unavailabl e Encounter Details Date Type Department Care Team (Late st Contact Info) Description 11/01/2023 8:45 AM CDT Ancillary Procedure Department of Ophthalmology Social History Tobacco Use Types Packs/Day Years Used Date Smoking Tobacco: Every Day Cigarettes 0.3 55.7 Started: [birth year]01/1969 Smokeless Tobacco: Never Alcohol Use [...] Department Care Team (Latest Contact Info) Description 12/30/2023 9:45 AM CDT Clinical Communication Virtual Review in [place], [place] [address] [place] [phone] 12/31/2023 9:30 AM CDT Comprehensive Visit Division of Pain Medicine in [place], [place] [address] [place] [phone] Lincoln Abdi, ATUL, C.N.P., M.S.N. [address] [place] [phone] 12/31/2023 12:45 PM CDT Appointment Division of Gastroenterology in [place], [place] [address] [place] [phone] Jose Roberto Patterson M.D. [address] [place] [phone] 01/02/2024 11:00 AM CDT Virtual Visit Division of Gastroenterology in [place], [place] [address] [place] [address] Jose Roberto Patterson M.D. [address] [place] [address] 02/10/2024 8:00 AM CANVAS WORKER Appointment Department of Radiology, [facility] in [place], [place] [address] [place] [address] Malika Marc M.D. [address] [place] [phone] documented as of this encounter Procedures Procedure Name Priority Date/Time Associated Diagnosis Comments OPHTHALMOLOGY IMAGE EXAM Routine 11/01/2023 8:45 AM CDT documented in this encounter Results * Optical Coherence Tomography (OCT)-Ophthalmology Image Exam (11/01/2023 8:45 AM CDT) 11/01/2023 8:43 AM CDT Narrative [facility] - 11/01/2023 8:53 AM CDT This order has been created and [...] Noted Time PHQ-9 Depression Total Score: 21 05/31/2 012 10:33 AM CANVAS WORKER documented as of this encounter Care Teams Comptometrist Relationship Specialty Start Date End Date Elsewhere, Pcp PCP - General Internal Medicine 06/26/22 documented as of this encounter
--- OUTSIDE RECORDS SUMMARY | 2023-12-14 17:25 | XMS_ITS | Clinical Summary ---
Author Organization [facility] Address [address] [place] [address] Care Team Providers Care Media Arts Professor Name Role Phone Elsewhere, Pcp Primary Care Provider Unavailabl e Source Comments Patient records contain information from all sites at [facility]. For routine questions regarding patient records, call [phone] during business hours, M-F 8:00 AM - 5:00 PM Central Time. Record requests for emergency care only can be directed to [phone] at any time.[facility] Allergies Active Allergy Reactions Criticality Noted Date [...] (six) hours as needed for pain. Active fentaNYL (DURAGESIC) 12 mcg/hr patch States it fell off 01/31/2023 A ctive acetaminophen (TYLENOL) 500 mg tablet Take 1,000 [...] needed for pain. For 30 days. Active [id number] (MoviPrep) 100-7.5-2.691 gram kitIndications:Loss Weight,Pain Abdominal Chronic Drink 1st portion of prep at 6 PM the evening before. 2nd portion must be started 3 hours before and finished 2 hours prior to report time 1 kit 09/20/2023 Active Active Problems Problem Noted Date Diagnosed Date Stone Pancreatic Duct 01/01/2023 Weakness General 10/23/2022 Pain Abdominal Chronic 10/23/2022 Dysphagia 09/06/2022 09/06/2022 Pancreatitis Acute 09/06/2022 Duodenitis 05/22/2021 09/06/2022 Diabetes Mellitus Type 2 With Diabetic Neuropath y 01/12/2019 09/06/2022 Hyperlipidemia 01/12/2019 09/06/2022 Migraine Headache 01/12/2019 09/06/2022 Rhinitis Seasonal 01/12/2019 09/06/2022 Bloating Abdominal 09/22/2014 09/06/2022 Pancreatitis Chronic Recurrent 08/29/2014 Overview (08/21/2016): Pancreatitis Chronic Recurrent Hypertension Essential Primary 06/01/2014 Overview (08/21/2016): Benign Essential Hypertension Essential hypertension, benign Multiple Sclerosis 06/27/2013 Overview (08/21/2016): Multiple Sclerosis Multiple sclerosis Bipolar Disorder 08/04/2010 Overview (08/21/2016): Bipolar disorder NOS Hematuria 01/18/2010 09/06/2022 Diabetes Mellitus Type 2 01/12/2008 023 Gastroesophageal Reflux Disease NOS 01/12/2008 09/06/2022 Unspecified Abnormalities Of Gait And Mobility 0 09/06/2005 09/06/2022 Multiple Sclerosis 11/06/2002 Encounters Date Type Department Care Team Description 12/05/2023 Clinical Communication Division of Gastroenterology in [place], [place] [address] [place] [phone] Jose Roberto Patterson M.D. 11/15/2023 1:00 PM CDT Comprehensive Visit Department of Neurology in [place], [place] [address] [place] [phone] Andre Crouch M.D. Keegan, B. Mark, M.D. Multiple Sclerosis (HCC) (Primary Dx); Transient Ischemic Attack; Abuse Tobacco Smoking 11/01/2023 9:05 AM CDT - 11/01/2023 11:59 PM CDT [facility] [place] [place] [address] [place] [phone] Lizzy Carrington M.D. Multiple Sclerosis (HCC) Discharge Disposition: Home or Self Care 11/01/2023 8:45 AM CDT Ancillary Procedure Department of Ophthalmology 11/01/2023 8:45 AM CDT Ancillary Procedure Department of Ophthalmology in [place], [place] [address] [place] [phone] Lizzy Carrington M.D. Multiple Sclerosis (HCC); Demyelinating Disease Central Nervous System (HCC) 10/14/2023 Clinical Communication Department of Ophthalmology in [address] [phone] Provider, Unknown 10/09/2023 1:00 PM CDT Comprehensive Visit Department of Vascular Medicine in [place], [place] [address] [place] [phone] Andre Crouch M.D. Multiple Sclerosis (HCC) (Primary Dx); Loss Weight; Pain Abdominal Chronic; Transient Ischemic Attack; Pancreatitis Chronic (HCC) 10/09/2023 11:12 AM CDT - 10/09/2023 11:59 PM CDT Hospital Encounter Department of Laboratory Medicine and Pathology, [facility] in [place], [place] [address] [place] [phone] Arturo Camacho M.B.B.S., M.S. Loss Weight; Pain Abdominal Chronic Discharge Disposition: Home or Self Care 09/25/2023 8:00 AM CDT Internal E-Consult Department of Vascular Medicine in [place], [place] [address] [place] [address] Adeola Noonan P.A.-C. Loss Weight; Pain Abdominal Chronic 09/23/2023 Clinical Communication Division of Gastroenterology in [place], [place] [address] [place] [phone] Jose Roberto Patterson M.D. [employer] 09/20/2023 Clinical Communication Division of Gastroenterology in [place], [place] [address] [place] [address] Jose Roberto Patterson M.D. Order Request from Last 3 Months Immunizations Name Administration Dates Next Due HZV (ZOSTAVAX) 05/22/2016 Influenza TIV (IM) 02/17/2016, 5,02/11/2014,2011,12/07/2010,01/09/2010,04/26/2005,1 ,03/13/2000 Influenza, Seasonal, Injectable 02/17/20 16,01/10/2015,02/11/2014,2011,12/07/2010,04/26/2005,01/26/2004 Influenza, Unspecified 02/11/2014,2012,01/10/2012,2010,01/13/2010,01/22/2008 PCV13 09/21/2019,08/12/2015 PPSV23 06/29/2014,04/01/1998 Td (Adult), adsorbed 08/21/2004 Td Preservative Free (TENIVA C, DECAVAC) 01/30/2006,08/21/2004 Tdap 07/24/2022,08/21/2004 influenza trivalent vaccine (6 months and older)(PF) 01/14/2013,01/22/2008 Family History Medical History Relation Name Comments Lung cancer Father Umang Diabetes Mother Marifer Liver failure Mother Marifer Relation Name Status Comments Father Umang Mother Marifer Social History Tobacco Use Types Packs/Day Years Used Date Smoking Tobacco: Every Day Cigarettes 0.3 55.7 Started: 04/01/1968 Smokeless Tobacco: Never Tobacco Cessation:Ready [...] Sign Reading Time Taken Comments Blood Pressure 152/91 10/09/2023 12:04 PM CDT Pulse 80 10/09/2023 12:04 PM CDT Temperature 36.6 ??C (97.9 ??F) 07/08/2023 12:32 PM C DT Respiratory Rate 16 07/08/2023 1:02 PM CDT Oxygen Saturation 99% 07/08/2023 1:02 PM CDT Inhaled Oxygen Concentration - - Weight 53.6 kg (118 lb 2.7 oz) 11/15/2023 12:56 PM CDT Height 164 cm (5' 4.57) 11/15/2023 12:56 PM CDT Body Mass Index 19.93 11/15/2023 12:56 PM CDT Plan of Treatment Upcoming Encounters Date Type Department Care Team (Latest Contact Info) Description 12/30/2023 9:45 AM CDT Clinical Communication Virtual Review in [place], [place] 200 [place] [phone] 12/31/2023 9:30 AM CDT Comprehensive Visit Division of Pain Medicine in [place], [place] [address] [place] [phone] Lincoln Abdi, ATUL, C.N.P., M.S.N. [address] [place] [phone] 12/31/2023 12:45 PM CDT Appointment Division of Gastroenterology in [place], [place] [address] [place] [phone] Jose Roberto Patterson M.D. [address] [place] [phone] 01/02/2024 11:00 AM CDT Virtual Visit Division of Gastroenterology in [place], [place] [address] [place] [phone] Jose Roberto Patterson M.D. [address] [place] [phone] 02/10/2024 8:00 AM MOBILE EQUIPMENT SERVICER Appointment Department of Radiology, [facility], in [place], [place] [address] [place] [address] Malika Marc M.D. [address] [place] [phone] Health Maintenance Due Date Last Done Comments CT Colonography 1954 Diabetic Office Visit with F oot Exam 1954 FIT 1954 Generalized Anxiety (CLIFTON-7) 1954 Hepatitis C Screening 1954 Tobacco Cessation counseling 1954 Urine Albumin 05/04/2012 05/04/2011 Mammogram 10/15/2013 10/15/2012 (Perf ormed elsewhere), 05/30/2012 (Performed elsewhere), 05/11/2011, Additional history exists Hepatitis B Vaccines (1 of 3 - Risk 3-dose series) 2014 Zoster Vaccines (1 of 2) 07/17/2016 05/22/2016 Pneumococcal vaccine (65+ ye ars) (3 of 3 - PPSV23 or PCV20) 09/20/2020 09/21/2019, 08/12/2015, 06/29/2014, Additional history exists Colonoscopy 09/11/2021 09/12/2011 (Perf ormed elsewhere), 06/13/2004 Controlled Substance Agreement 02/19/2023 Controlled Substance Monitor ing (PHQ-9) 02/19/2023 Controlled Substance Monitoring 02/19/2023 Opioid Risk Tool (ORT) 02/19/2023 PEG assessment for Opioid therapy 02/19/2023 COVID-19 Vaccine (1 - 2022-2 4 season) 2023 Hemoglobin A1C 12/21/2023 09/20/2023, 01/31, 06/19/2013, Additional history exists Influenza Vaccine (#1) 2023 6, 02/17/2016, 01/10/2015, Additional history exists Office Visit for Blood Press ure Check / Re-check 01/09/2024 10/09/2023 Creatinine Level (Kidney Fun ction Test) 10/08/2024 10/09/2023, 09/22/2023, 09/21/2023, Additional history exists Potassium Level 10/08/2024 10/09/2023, 08/31, 09/21/2023, Additional history exists Sodium Level 10/08/2024 10/09/2023, 08/31, 09/20/2023, Additional history exists Dilated Eye Exam 10/31/2024 11/01/2023, 11/10/2010 Cologuard 05/31/2026 06/01/2023 Colorectal Cancer Screening 05/31/2026 Lipid (Cholesterol) Screening 09/19/2028, 11/22/2022, 06/02/2014, Additional history exists DTaP,Tdap,and Td Vaccines (4 - Td or Tdap) 07/24/2032 07/24/2022, 01/30/2006, 08/21/2004, Additional history exists Fall Risk Screen (Annual) Completed 07/08/2023 Lung Cancer Screening Discontinued 09/19/2023, 011 Medical Devices Implanted Type Area Grinding Machine Tender Device Identifier Shelf Expiration Date Model / Serial / Lot [facility] 10fx22 - [id number] Implanted:Qty : 1 on 07/08/2023 by Jose Roberto Hays M.D. at [facility] [employer] 05/29/2026 [id number] / / [id number] Explanted Type Area Grinding Machine Tender Device Identifier Shelf Expiration Date Model / Serial / Lot [facility] 8.5fx22 - [id number] Implanted:Qty : 1 on 05/08/2023 by Alverto Bunch M.D. at [facility] Explanted:Qty : 1 on 07/08/2023 by Jose Roberto Hays M.D. at [facility] [employer] 03/12/2026 [id number] / / [id number] Description:8.5 x 12 Procedures Procedure Name Priority Date/Time Associated Diagnosis Comments MR BRAIN MULTIPLE SCLEROSIS WITHOUT AND WITH IV CONTRAST RAD - Routine (most inpatients and all outpatients) 11/01/2023 10:38 AM CDT Multiple Sclerosis (HCC) OPTICAL COHERENCE TOMOGRAPHY (OCT) - OPTIC NERVE - OU - BOTH EYES Routine 11/01/2023 8:58 AM CDT Multiple Sclerosis (HCC) Demyelinating Disease Central Nervous System (HCC) OPHTHALMOLOGY IMAGE EXAM Routine 11/01/2023 8:45 AM CDT COMPREHENSIVE METABOLIC PANEL, S/P Routine 10/09/2023 11:27 AM CDT Loss Weight Pain Abdominal Chronic ACTIVATED PARTIAL THROMBOPLASTIN TIME (APTT), P Routine 10/09/2023 11:27 AM CDT Loss Weight Pain Abdominal Chronic PROTHROMBIN TIME (PT), P Routine 10/09/2023 11:27 AM CDT Loss Weight Pain Abdominal Chronic CBC WITH DIFFERENTIAL, B Routine 10/09/2023 11:27 AM CDT Loss Weight Pain Abdominal Chronic OUTSIDE CT BODY Routine 09/19/2023 8:[address] BODY Routine 09/19/2023 8:50 PM CDT HEMOGLOBIN A1C, B Routine 02/19/2023 6:1 7 AM MOBILE EQUIPMENT SERVICER LIPID PANEL, S Routine 06/02/2014 6:51 AM MOBILE EQUIPMENT SERVICER BI BREAST SCREENING UNILATERAL Routine 05/11/2011 2:00 PM MOBILE EQUIPMENT SERVICER ALBUMIN, RANDOM, U Routine 05/04/2011 12:00 PM MOBILE EQUIPMENT SERVICER CT CHEST WITH IV CONTRAST Routine 03/13/2011 1:35 PM MOBILE EQUIPMENT SERVICER from Last 3 Months or Most Recently Relevant to Health Maintenance Results * MR Brain Multiple Sclerosis Without and With IV Contrast (11/01/2023 10:38 AM CDT) Anatomical Region Laterality Modality Head, Brain, Neuroradiology RST LOS, Neuroradiology ARZ LOS, Neuroradiology FLA LOS N/A Magnetic Resonance Impressions 11/01/2023 11:09 AM CDT Findings consistent with multiple sclerosis. There may be a few new tiny subcortical lesions which could represent progressive demyelination or chronic small vessel ischemic change. There is no restricted diffusion or abnormal enhancement to suggest active disease. Narrative 11/01/2023 11:09 AM CDT EXAM: MR BRAIN MULTIPLE SCLEROSIS WITHOUT AND WITH IV CONTRAST COMPARISON: MRI brain 10/25/2010. FINDINGS: Focal areas of T2 hyperintensity involving the periventricular and subcortical white matter of both cerebral hemispheres including the callosal septal interface consistent with the history of multiple sclerosis. Given differences in technique (1 mm FLAIR images today, 5 mm previously; 3T today, 1.5T previously), there may be a few new tiny subcortical white matter lesions. None demonstrate restricted diffusion or abnormal enhancement. Otherwise stable exam. No acute or chronic parenchymal hemorrhage. Mild generalized parenchymal volume loss with ex vacuo enlargement of the ventricular system which is midline in position. No extra-axial masses or fluid collections. Procedure Note Stacie Bravo M.D. - 11/01/2023 EXAM: MR BRAIN MULTIPLE SCLEROSIS WITHOUT AND WITH IV CONTRAST COMPARISON: MRI brain 10/25/2010. FINDINGS: Focal areas of T2 hyperintensity involving the periventricularand subcortical white matter of both cerebral hemispheres including thecallosal septal interface consistent with the history of multiplesclerosis. Given differences in technique (1 mm FLAIR images today, 5 mm previously; 3T today, 1.5T previously),there may be a few new tiny subcortical white matter lesions. Nonedemonstrate restricted diffusion or abnormal enhancement. Otherwise stable exam. No acute or chronic parenchymal hemorrhage. Mildgeneralized parenchymal volume loss with ex vacuo enlargement of theventricular system which is midline in position. No extra-axial masses orfluid collections. IMPRESSION: Findings consistent with multiple sclerosis. There may be a few new tinysubcortical lesions which could represent progressive demyelination orchronic small vessel ischemic change. There is no restricted diffusion orabnormal enhancement to suggest active disease. Santos. Bethel Carrington M.D. [facility] MRI PROCEDURES * Optical Coherence Tomography - Optic Nerve - OU - Both Eyes (11/01/2023 8:58 AM CDT) Narrative OPHTHALMOLOGY IMAGING EXAM - 11/05/2023 6:31 PM CDT OCT device used was [employer] . Right Eye Average RNFL was 78.00 microns. Ganglion cell layer was 80.00 microns. Left Eye Average RNFL was 71.00 microns. Ganglion cell layer was 68.00 microns. Notes Right eye ganglion cell artifact in the setting of epiretinal membrane. Asymmetry in RNFL thickness and ganglion cell layer analysis on the left may be in keeping with prior episode of left optic neuritis Lizzy Carrington M.D. OPHTH TOMOGRAPHY Performing Organization Address [facility] Co de Phone Number OPHTHALMOLOGY IMAGING EXAM * Optical Coherence Tomography (OCT)-Ophthalmology Image Exam [...] RAD IMAGI NG PROCEDURES Performing Organization Address [facility] Co de Phone Number IIMS NA * APTT (Activated Partial Thromboplastin Time) (10/09/2023 11:27 AM CDT) Activated Partial Thrombopl Time, P 35 25 - 37 sec 10/09/2023 12:44 PM CDT DTL Blood (Blood, Venous) 10/09/2023 11:27 AM CDT 10/09/2023 12:20 PM CDT Arturo Montalvo., M.S. LAB BLOOD ADD-ON Performing Organization Address [facility] Co de Phone Number [address] [address] [address] [place] [address] * Prothrombin Time (PT) (10/09/2023 11:27 AM CDT) [facility] Prothrombin Time, P 11.7 9.4 - 12.5 sec 10/09/2023 12:44 PM CDT DTL INR 1.1 0.9 - 1.1 10/09/2023 12:44 PM CDT DTL Comment: ----ADDITIONAL INFORMATION---- Standard intensity warfarin therapeutic range: 2.0 to 3.0 ?? High intensity warfarin therapeutic range: 2.5 to 3.5 Blood (Blood, Venous) 10/09/2023 11:27 AM CDT 10/09/2023 12:20 PM CDT Arturo Juan, M.S. LAB BLOOD ADD-ON [facility] [address] [place], [place] [address] [address] [place] [address] * (ABNORMAL) CBC with Differential, Blood (10/09/2023 11:27 AM CDT) [facility] Hemoglobin 11.7 11.6 - 15.0 g/dL 10/09/2023 12:42 PM CDT DTL Hematocrit 35.9 35.5 - 44.9 % 10/09/2023 12:42 PM CDT DTL Erythrocytes 3.71(L) 3.92 - 5.13 x10(12)/L 10/09/2023 12:42 PM CDT DTL MCV 96.8 78.2 - 97.9 fL 10/09/2023 12:42 PM CDT DTL RBC Distrib Width 13.2 12.2 - 16.1 % 10/09/2023 12:42 PM CDT DTL Platelet Count 444(H) 157 - 371 x10(9)/L 10/09/2023 12:42 PM CDT DTL Leukocytes 6.4 3.4 - 9.6 x10(9)/L 10/09/2023 12:42 PM CDT DTL Neutrophils 2.94 1.56 - 6.45 x10(9)/L 10/09/2023 12:42 PM CDT [facility] Lymphocytes 2.35 0.95 - 3.07 x10(9)/L 10/09/2023 12:42 PM CDT DTL Monocytes 0.51 0.26 - 0.81 x10(9)/L 10/09/2023 12:42 PM CDT DTL Eosinophils 0.57(H) 0.03 - 0.48 x10(9)/L 10/09/2023 12:42 PM CDT DTL Basophils 0.05 0.01 - 0.08 x10(9)/L 10/09/2023 12:42 PM CDT DTL Blood (Blood, Venous) 10/09/2023 11:27 AM CDT 10/09/2023 12:20 PM CDT Arturo Juan, M.S. LAB BLOOD ADD-ON [facility] [address] [place] [address], [facility] DTL [facility] [address] [place] [address] [facility] [address] [place] [address] * (ABNORMAL) Comprehensive Metabolic Panel (10/09/2023 11:27 AM CDT) [facility] Potassium, S 4.2 3.6 - 5.2 mmol/L 10/09/2023 12:34 PM CDT DTL Sodium, S 139 135 - 145 mmol/L 10/09/2023 12:34 PM CDT DTL Chloride, S 103 98 - 107 mmol/L 10/09/2023 12:34 PM CDT DTL Bicarbonate, S 28 22 - 29 mmol/L 10/09/2023 12:34 PM CDT DTL Anion Gap 8 7 - 15 10/09/2023 12:34 PM CDT DTL BUN (Blood Urea Nitrogen), S 9 6 - 21 mg/dL 10/09/2023 12:34 PM CDT DTL Creatinine 0.69 0.59 - 1.04 mg/dL 10/09/2023 12:34 PM CDT DTL Estimated GFR (eGFR) >90 >=60 mL/min/BS A 10/09/2023 12:34 PM CDT DTL Comment: Estimated GFR calculated using the 2020 CKD_EPI creatinine equation. Calcium, Total, S 9.0 8.8 - 10.2 mg/dL 10/09/2023 12:34 PM CDT DTL Glucose, S 239(H) 70 - 140 mg/dL 10/09/2023 12:34 PM CDT DTL Protein, Total, S 6.0(L) 6.3 - 7.9 g/dL 10/09/2023 12:34 PM CDT DTL Albumin, S 3.6 3.5 - 5.0 g/dL 10/09/2023 12:34 PM CDT DTL Aspartate Aminotransferase (AST), S 30 8 - 43 U/L 10/09/2023 12:34 PM CDT DTL Alkaline Phosphatase, S 101 35 - 104 U/L 10/09/2023 12:34 PM CDT DTL Alanine Aminotransferase (ALT), S 37 7 - 45 U/L 10/09/2023 12:34 PM CDT DTL Bilirubin, Total, S <0.2 0.0 - 1.2 mg/dL 10/09/2023 12:34 PM CDT DTL Blood (Blood, Venous) 10/09/2023 11:27 AM CDT 10/09/2023 12:13 PM CDT Arturo Juan, M.S. LAB BLOOD ADD-ON [facility] [address] [place] [address], [place] DTL [facility] [address] [place] [address] * Outside CT Body (09/19/2023 8:55 PM CDT) Only the most recent of2 resultswithin the time period is included. 09/19/2023 9:11 PM CDT Addenda Addendum by [employer], Outside on 09/19/2023 9:11 PM CDT BELOW REPORT RECEIVED BY [facility] ON 09/20/2023 09:28:24 [id number] For Patients: ??As a result of the Cures Act, medical imaging exams and procedure reports are released immediately into your electronic medical record. ??You may view this report before your referring provider. ?? If you have questions, please contact your health care provider. INDICATION: Shortness of breath, history of DVT. TECHNIQUE: CT chest PE was acquired with 100 cc Omnipaque 350 IV contrast. COMPARISON: None. FINDINGS: Heart and vasculature: Contrast opacification of the pulmonary arterial tree is adequate. No sign of pulmonary embolism. Heart size is normal. Thoracic aorta and pulmonary artery are normal in caliber. Mild coronary artery and thoracic aorta atherosclerotic calcification. Lungs and pleura: Small areas of patchy dense consolidation in the lung bases with scattered areas of ground-glass as well as centrilobular nodules with surrounding ground-glass, greatest in the right lower lobe. Mild anterior subpleural fibrotic changes in the upper lobes. No pleural effusion or pneumothorax. Lymph nodes/mediastinum: No mediastinal, hilar, or axillary adenopathy. Chest wall: No masses. Upper abdomen: No acute or significant findings. Bones: Unremarkable for age. Impression: 1. No pulmonary embolism. 2. Findings compatible with multilobar pneumonia. Recommend follow-up imaging after appropriate treatment to ensure resolution. Please note that all CT scans at this facility use dose modulation, iterative reconstruction, and/or weight-based dosing when appropriate to reduce radiation dose to as low as reasonably achievable. Dictated by Lew Olson MD @ 09/19/2023 9:11:19 PM (Electronically Signed) 14 READ BY Lew Olson RELEASED BY DELANEY Addendum by [employer], Outside on 09/19/2023 9:11 PM CDT BELOW REPORT RECEIVED BY [facility] ON 09/20/2023 09:27:37 [id number] For Patients: ??As a result of the Cures Act, medical imaging exams and procedure reports are released immediately into your electronic medical record. ??You may view this report before your referring provider. ?? If you have questions, please contact your health care provider. INDICATION: Shortness of breath, history of DVT. TECHNIQUE: CT chest PE was acquired with 100 cc Omnipaque 350 IV contrast. COMPARISON: None. FINDINGS: Heart and vasculature: Contrast opacification of the pulmonary arterial tree is adequate. No sign of pulmonary embolism. Heart size is normal. Thoracic aorta and pulmonary artery are normal in caliber. Mild coronary artery and thoracic aorta atherosclerotic calcification. Lungs and pleura: Small areas of patchy dense consolidation in the lung bases with scattered areas of ground-glass as well as centrilobular nodules with surrounding ground-glass, greatest in the right lower lobe. Mild anterior subpleural fibrotic changes in the upper lobes. No pleural effusion or pneumothorax. Lymph nodes/mediastinum: No mediastinal, hilar, or axillary adenopathy. Chest wall: No masses. Upper abdomen: No acute or significant findings. Bones: Unremarkable for age. Impression: 1. No pulmonary embolism. 2. Findings compatible with multilobar pneumonia. Recommend follow-up imaging after appropriate treatment to ensure resolution. Please note that all CT scans at this facility use dose modulation, iterative reconstruction, and/or weight-based dosing when appropriate to reduce radiation dose to as low as reasonably achievable. Dictated by Lew Olson MD @ 09/19/2023 9:11:19 PM (Electronically Signed) 14 READ BY Lew Olson RELEASED BY DELANEY Addendum by [employer], Outside on 09/19/2023 9:11 PM CDT BELOW REPORT RECEIVED BY [facility] ON 09/20/2023 09:29:45 [id number] For Patients: ??As a result of the Cures Act, medical imaging exams and procedure reports are released immediately into your electronic medical record. ??You may view this report before your referring provider. ?? If you have questions, please contact your health care provider. INDICATION: Shortness of breath, history of DVT. TECHNIQUE: CT chest PE was acquired with 100 cc Omnipaque 350 IV contrast. COMPARISON: None. FINDINGS: Heart and vasculature: Contrast opacification of the pulmonary arterial tree is adequate. No sign of pulmonary embolism. Heart size is normal. Thoracic aorta and pulmonary artery are normal in caliber. Mild coronary artery and thoracic aorta atherosclerotic calcification. Lungs and pleura: Small areas of patchy dense consolidation in the lung bases with scattered areas of ground-glass as well as centrilobular nodules with surrounding ground-glass, greatest in the right lower lobe. Mild anterior subpleural fibrotic changes in the upper lobes. No pleural effusion or pneumothorax. Lymph nodes/mediastinum: No mediastinal, hilar, or axillary adenopathy. Chest wall: No masses. Upper abdomen: No acute or significant findings. Bones: Unremarkable for age. Impression: 1. No pulmonary embolism. 2. Findings compatible with multilobar pneumonia. Recommend follow-up imaging after appropriate treatment to ensure resolution. Please note that all CT scans at this facility use dose modulation, iterative reconstruction, and/or weight-based dosing when appropriate to reduce radiation dose to as low as reasonably achievable. Dictated by Lew Olson MD @ 09/19/2023 9:11:19 PM (Electronically Signed) 14 READ BY Lew Olson RELEASED BY DELANEY Narrative IMAGING - 09/20/2023 9:43 AM CDT This order has been created and auto-finalized to support the import of outside images. If available, original interpretation can be found on the Media Tab in Chart Review, in Document Viewer, as an image in QREADS or as an Addendum. If a re-interpretation or overread is required please follow defined workflow.?? Procedure Note Digital Media, Outside - 09/20/2023 This order has been created and auto-finalized to support the import ofoutside images. If available, original interpretation can be found on theMedia Tab in Chart Review, in Document Viewer, as an image in QREADS or asan Addendum. If a re-interpretation or overread is required please follow definedworkflow.?? Provider Not In System IMG CT PROCEDURES IMAGING NA * BI Breast Screening (05/11/2011 2:00 PM MOBILE EQUIPMENT SERVICER) Anatomical Region Laterality Modality Breast N/A Mammography 05/11/2011 2:00 PM MOBILE EQUIPMENT SERVICER Impressions 05/11/2011 2:46 PM MOBILE EQUIPMENT SERVICER NEGATIVE There is no mammographic evidence of malignancy. ?? RECOMMENDATION: A 1 year screening mammogram is recommended. ?? The patient will receive a letter notifying her of the results. ?? Justin Landa M.D. ? dla/penrad:05/11/2011 14:46:05 ?? letter sent: 1S/2S - Negative Screen ?? Mammogram BI-RADS: 1 Negative Electronically signed by: ?? Reba ??Syeda LOUIS ??[id number] 11-May-2011 14:46 Narrative 05/11/2011 2:46 PM MOBILE EQUIPMENT SERVICER 11-May-2011 14:00:00 ??Exam: B MG /Screening Exam [...] a letter notifying her of the results. Jsutin sims/penrad:05/11/2011 14:46:05 letter sent: 1S/2S - Negative Screen Mammogram BI-RADS: 1 Negative Electronically signed by: Reba Landa MD [id number] 11-May-2011 14:46 Nathaly Breaux M.D. IMG BI NM OCEDURES * (ABNORMAL) Microalbumin, Random, Urine (05/04/2011 12:00 PM MOBILE EQUIPMENT SERVICER) Creatinine, Random, U 74.9 30.0 - 125.0 MGDL POWERCHART HXU Albumin % 24.4 12.0 - 30.0 MGL POWERCHART Albumin/Creatin ine Ratio 33(H) 0 - 25 MGGM POWERCHART Urine 05/04/2011 12:0 0 PM MOBILE EQUIPMENT SERVICER Nathaly Breaux M.D. LAB URINE ORDERABLES POWERCHART * CT Chest with IV Contrast (03/13/2011 1:35 PM MOBILE EQUIPMENT SERVICER) Anatomical Region Laterality Modality Chest N/A Computed Tomogra phy 03/13/2011 1:35 PM MOBILE EQUIPMENT SERVICER Impressions 03/13/2011 1:56 PM MOBILE EQUIPMENT SERVICER No pulmonary emboli. FINDINGS: Suboptimal contrast bolus [...] [id number] 13-Mar-2011 13:56 Narrative 03/13/2011 1:56 PM MOBILE EQUIPMENT SERVICER 13-Mar-2011 13:35:00 ??Exam: CT CHEST w Indications: [...] Mello Rivera MD [id number] 13-Mar-2011 13:56 Nathaly Breaux M.D. 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 See document viewer. * Full Code (Latest Code Status on File) Date Activated Date Inactivated Comments 10/23/2022 2:51 PM 10/25/2022 1:26 AM Question Answer Comments Full Code: Discussed Care Teams Media Arts Professor Relationship Specialty Start Date End Date Elsewhere, Pcp PCP - General Internal Medicine 06/26/22
--- OUTSIDE RECORDS SUMMARY | 2023-12-14 17:25 | XMS_ITS | Encounter Summary ---
Author Organization [facility] Address [address] [place] [address] Care Team Providers Care Wine Bottle Inspector Name Role Phone Elsewhere, Pcp Primary Care Provider Unavailabl e Encounter Details Date Type Department Care Team (Latest Contact Info) Description 12/05/2023 Clinical Communication Division of Gastroenterology in [place], [place] [address] [place] [phone] Jose Roberto Patterson M.D. [address] [place] [phone] Social History Tobacco Use Types Packs/Day Years [...] living situation today? I have a [facility] place to live 01/01/2023 Sex and Gender Information Value Date Recorded Sex Assigned at Female 01/01/2023 9:08 AM CDT Gender Identity Female 01/01/2023 9:08 AM CDT Sexual Orientation Straight 01/01/2023 9: 08 AM CDT documented as of this encounter Plan of Treatment Upcoming Encounters Date Type Department Care Team (Latest Contact Info) Description 12/30/2023 9:45 AM CDT Clinical Communication Virtual Review in [place], [place] [address] [place] [phone] 12/31/2023 9:30 AM CDT Comprehensive Visit Division of Pain Medicine in [place], [place] [address] [place] [phone] Lincoln Abdi, ATUL, C.N.P., M.S.N. [address] [place] [address] 12/31/2023 12:45 PM CDT Appointment Division of Gastroenterology in [address] [phone] Jose Roberto Patterson M.D. [address] [place] [phone] 01/02/2024 11:00 AM CDT Virtual Visit Division of Gastroenterology in [place], [place] [address] [place] [phone] Jose Roberto Patterson M.D. 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 [address] [place] [phone] documented as of this encounter Visit Diagnoses Not on filedocumented in this encounter Additional Health Concerns Assessment Noted Time PHQ-9 Depression Total Score: 21 05/31/ 012 10:33 AM FORKLIFT WHEEL LOADER documented as of this encounter Care Teams Wine Bottle Inspector Relationship Specialty Start Date End Date Elsewhere, Pcp PCP - General Internal Medicine 06/26/22 documented as of this encounter
--- OUTSIDE RECORDS SUMMARY | 2023-12-14 17:25 | XMS_ITS | Encounter Summary ---
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 [address] [place] [address] [facility] Referral ID Status Reason Start Date Expiration Date V isits Requested Visits Authorized [id number] Authorized 11/15/2023 05/16/2025 1 1 * MRI/CAT/PET Scan (Routine) - Authorized Specialty Diagnoses / Procedures Referred By Contac t Referred To Contact Radiology Diagnoses Multiple Sclerosis (HCC) Transient Ischemic Attack Procedures MR Thoracic Spine without and with IV Contrast Malika Marc M.D. [address] [place] [address] [facility] Referral ID Status Reason Start Date Expiration Date V isits Requested Visits Authorized [id number] Authorized 11/15/2023 11/14/2024 1 1 * MRI/CAT/PET Scan (Routine) - Authorized Specialty Diagnoses / Procedures Referred By Olivia gonzalez Referred To Contact Radiology Diagnoses Multiple Sclerosis (HCC) Transient Ischemic Attack Procedures MR Cervical Spine without and with IV Contrast Malika Marc M.D. [address] [place] [address] [facility] Referral ID Status Reason Start Date Expiration Date V isits Requested Visits Authorized [id number] Authorized 11/15/2023 11/14/2024 1 1 * Outpatient (Routine) - Authorized Specialty Diagnoses / Procedures Referred By Olivia gonzalez Referred To Contact Neurology Diagnoses Multiple Sclerosis (HCC) Transient Ischemic Attack Malika Marc M.D. [address] [place] [address] Lizzy Carrington M.D. [address] [place] [address] Referral ID Status Reason Start Date Expiration Date V isits Requested Visits Authorized [id number] Authorized 11/15/2023 05/16/2025 1 1 Scheduling Instructions After cervical and thoracic spine MRIs under general anesthesia Reason for Visit * Outpatient (Routine) - Closed Specialty Diagnoses / Procedures Referred By Olivia gonzalez Referred To Contact Neurology Diagnoses Multiple Sclerosis (HCC) Transient Ischemic Attack Andre Crouch M.D. [address] [place] [address] [facility] Referral ID Status Reason Start Date Expiration Date V isits Requested Visits Authorized [id number] Closed Specialty Services Required 10/09/2023 04/09/2025 1 1 Encounter Details Date Type Department Care Team (Latest Contact Info) Description 11/15/2023 1:00 PM CDT Comprehensive Visit Department of Neurology in [place], [place] [address] [place] [phone] Andre Crouch M.D. [address] [place] [phone] Lizzy Carrington M.D. [address] [place] [phone] Multiple Sclerosis (HCC) (Primary Dx); Transient Ischemic Attack; Abuse Tobacco Smoking Social History Tobacco Use Types Packs/Day Years [...] your living situation today? I have a [facility] place to live 01/01/2023 Sex and Gender Information Value Date Recorded Sex Assigned at Female 01/01/2023 9:08 AM CDT Gender Identity Female 01/01/2023 9:08 AM CDT Sexual Orientation Straight 01/01/2023 9: 08 AM CDT documented as of this encounter Last Filed Vital Signs Vital Sign Reading Time Taken Comments Blood Pressure - - Pulse - - Temperature - - Respiratory Rate - - Oxygen Saturation - - Inhaled Oxygen Concentration - - Weight 53.6 kg (118 lb 2.7 oz) 11/15/2023 12:56 PM CDT Height 164 cm (5' 4.57) 11/15/2023 12:56 PM CDT Body Mass Index 19.93 11/15/2023 12:56 PM CDT documented in this encounter Consult Notes * Malika Marc M.D. - 11/15/2023 1:00 PM CDT Neurology Outpatient Clinic Consult Note SUBJECTIVE CHIEF COMPLAINT / REASON FOR VISIT Recent symptoms labeled as TIA HISTORY OF PRESENT ILLNESS Yary Prince is a 68 y.o. right-handed female with relapsing-remitting multiple sclerosis who presents for evaluation of symptoms of TIA. Referred by Andre Crouch M.D. Other medical comorbidities include major neurocognitive disorder (by evaluation in 03/2016) hypertension, hyperlipidemia, type 2 diabetes mellitus, recurrent pancreatitis, recent unintentional weight loss, gastroesophageal reflux disease, prior DVT of right upper extremity axillary vein, migraines, tobacco use, bipolar disorder. Patient is from [place], [place] and was hospitalized at the end of August for pneumonia. During hospitalization had episode of right upper greater than lower extremity weakness followed by flashing lights overnight 09/19-09/20. She had difficulty grabbing her fork at dinner on 09/19. Patient reports symptoms came on suddenly within seconds or minutes and did not progress. No numbness, tingling, pain, ordizziness at the time. 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 NIHSS 0. Symptoms lasted a couple days per patient report. Nothing made her symptoms better or worse; she just tried to stay still and not exacerbate her back pain which feels like is a trigger for prior MS symptoms. Patient reported that she has previously had similar right upper extremity weaknesswith multiple sclerosis flares. It does not appear that she was on aspirin on antiplatelet medication at the time; patient reports she takes Buffrin when she has some arthritis pain but not daily. Workup included CT brain with small chronic lacunar infarcts and evidence of small-vessel ischemic disease, CTA head and neck without any acute intracranial findings or occlusions, and TTE that was unremarkable. Impression was symptoms were due to transient ischemic attack and she was started on apixaban 5mg BID. Patient reports no history of prior strokes. Patient was seen by Dr. Crouch in the thrombophilia clinic to discuss management of her apixaban around a scheduled endoscopy for management of her recurrent pancreatitis (she had already held it temporarily in anticipation of this procedure). Given that the etiology of her symptoms was unclear, Dr. Crouch recommended the patient resume her apixaban in case this was an acute transient ischemic attack, noting that if her transient ischemic attack was most likely due to small-vessel disease, then aspirin or antiplatelet therapy would be indicated rather than full anticoagulation. Patient was referred to Neurology to determine if patient's transient right upper extremity paresis was most like ly due to a transient ischemic attack or her multiple sclerosis. In 2001, patient established at [facility] and was seen by Dr. Smith, Dr. Cuevas, Dr. Carrington, and Dr. Plata in 2001. Per those note, patient had symptoms of progressive weakness, imbalance, and sensory changes ages [age] and approximately 2-3 flares per year starting at age 17 with a variety of symptoms including diplopia, blurriness in both eyes, ataxic eye movements, sensory and/ormotor problems in her limbs, and increased emotions. It was also noted at that time that patient's history had some atypical features of multiple sclerosis and was psychosocial issues considered as contributors. She reported full outside workup including CSF studies before diagnosis of relapsing-rem itting multiple sclerosis in her 30s and starting Betaseron for 6 months; discontinued due to intolerability. MRI brain consistent with demyelinating disease. She was also treated with steroids continuously for 1-2 years. After establishing at [facility], patient was started on Avonex and treated with amantadine for significant fatigue. She has inconsistently followed with [facility] after 2004. Per patient today, she reports that she has not followed with a neurologist for years. She took Avonexfor about 6 months before discontinuing, she believes due to cost issues. She has not been on a disease modifying treatment since and has not had steroids since. Patient has had multiple healthcare encounters with numbness and/or weakness involving her right leg, arm, and sometimes face including in 2000 and 2018. Today, patient reports that she is almost constantly in an MS flare with symptoms including cloudy vision, the left side of her face sagging and d rooling, arm and leg weakness, a jelly feeling in her knees, and swallowing problems (hurts to swallow and take sips of water to try and keep food down). She has difficulty emptying her colon outand has seen GI for this; is concerned about colon cancer given unintentional weight loss and muscle atrophy. Has not noticed recent bladder changes; previously with MS flares has had incontinence and reports some level of chronic incontinence since approximately 12 years old. Patient primarily hassymptoms of hemiparesis when pushing herself physically such as doing dishes without taking breaks.This seems to correlate per her report with her knees feel weak and some worsening dysarthria with f acial weakness; symptoms typically last a few days. Patient also reports recently having a lot of chronic back and side pain from her pancreatitis and that this is a trigger for her MS symptoms. Recently her back pain was exacerbated by her brain MRI.She does not feel like she will be able to tolerate another MRI of her cervical and thoracic spine and requests this be rescheduled to be done under general anesthesia. Reports she smokes marijuana daily and about 10 cigarettes per day. She is interested in quitting smoking again and Chantrix has helped her be successful with smoking cessation in the past but it became cost-prohibitive. She now has a new insurance and is interested in smoking cessation resources again. Walks independently without assistive device but feels imbalanced and holds on to furniture in home. Feels like she is drunk and has felt this way as long as she can remember. Better for a few days at a time. Has had approximately 6 falls in the past year. Has not hit head for past 20 years. Has ramp to get into house and does not need to use stairs in house. Can walk up stairs but sometimes falls up because can't lift foot all the way up. Can walk approximately 2 blocks, would have to stop dueto back pain. MEDICATIONS Current Outpatient Medications: Accu-Chek Guide test strips, 3 (three) times a day. for testing, Disp: , Rfl: acetaminophen (TYLENOL) 500 mg tablet, Take 1,000 mg by mouth every 6 (six) hours as needed., Disp:, Rfl: aspirin [address] tablet, Take 325 mg by mouth every 6 (six) hours as needed for pain., Disp: , Rfl: BD Ultra-Fine Micro Pen Needle 32 gauge x 1/4 needle, , Disp: , Rfl: clotrimazole (LOTRIMIN) 1 % cream, APPLY TO AFFECTED AREA(S) TWO TIMES A DAY FOR 7 DAYS, Disp: , Rfl: cyclobenzaprine (FLEXERIL) 10 mg tablet, Take 10 mg by mouth 3 (three) times a day as needed., Disp: , Rfl: donepeziL (ARICEPT) 5 mg tablet, Take by mouth daily., Disp: , Rfl: DULoxetine (CYMBALTA) [address] capsule, Take 30 mg by mouth every morning., Disp: , Rfl: fentaNYL (DURAGESIC) 12 mcg/hr patch, States it fell off, Disp: , Rfl: hydrocortisone (INSTACORT) 0.5 % cream, ONE APPLICATION TOPICALLY TWICE DAILY NEEDED FOR RASH, Disp: , Rfl: insulin glargine (LANTUS) 100 unit/mL injection, Inject 30 Units under the skin 2 (two) times a day. Full dose last night. None today, Disp: , Rfl: insulin lispro 100 unit/mL injection, Not started yet, Disp: , Rfl: losartan (COZAAR) 100 mg tablet, Take 1 tablet by mouth at bedtime., Disp: , Rfl: montelukast (SINGULAIR) 10 mg tablet, Take 10 mg by mouth at bedtime., Disp: , Rfl: nystatin (MYCOSTATIN) 100,000 unit/mL suspension, TAKE 4MLS BY MOUTH FOUR TIMES DAILY FOR 7 DAYS; ADMINISTER ONE HALF DOSE IN EACH SIDE OF THE MOUTH, Disp: , Rfl: ondansetron ODT (ZOFRAN-ODT) 4 mg disintegrating tablet, DISSOLVE ONE TABLET ON THE TONGUE TWO TO THREE TIMES PER DAY NEEDED FOR NAUSEA AND VOMITING FOR 3 DAYS, Disp: , Rfl: oxyBUTYnin (DITROPAN-XL) 10 mg 24 hr tablet, Take 10 mg by mouth at bedtime., Disp: , Rfl: oxyCODONE (ROXICODONE) 10 mg IR tablet, TAKE ONE-HALF TABLET BY MOUTH FOUR TIMES A DAY NEEDED FOR PAIN FOR 14 DAYS, Disp: , Rfl: oxyCODONE (ROXICODONE) 5 mg immediate release tablet, Take 5 mg by mouth every 6 (six) hours as needed for pain. For 30 days., Disp: , Rfl: [id number] ova-FwVu-GPa-asb-C (MoviPrep) 100-7.5-2.691 gram kit, Drink 1st portion of prep at 6 PMthe evening before. 2nd portion must be started 3 hours before and finished 2 hours prior to reporttime, Disp: 1 kit, Rfl: 0 QUEtiapine (SEROquel) 100 mg tablet, Take 100 mg by mouth at bedtime., Disp: , Rfl: QUEtiapine (SEROquel) 400 mg tablet, Take 400 mg by mouth at bedtime., Disp: , Rfl: simvastatin (ZOCOR) 40 mg tablet, Take 40 mg by mouth at bedtime., Disp: , Rfl: SUMAtriptan (IMITREX) 100 mg tablet, Take 100 mg by mouth as needed for migraine. May repeat dose once in 2 hours if migraine is unresolved. Do not exceed 200 mg in 24 hours., Disp: , Rfl: OBJECTIVE PHYSICAL EXAM GENERAL: Alert. No acute distress. HEENT: Normocephalic, atraumatic. LUNGS: Unlabored breathing. MUSCULOSKELETAL EXAM: EXTREMITIES: No swelling or erythema. Passive range of motion is functionally normal. SKIN: Exposed areas of skin are clean, dry, and intact. NEUROLOGICAL EXAMINATION MENTAL STATUS: Grossly oriented with appropriate mood and affect. KOKMEN Short Test of Mental Status: Orientation: 11/06 Attention: 08/05 Registration: 07/03 (1 trials) Calculation: 05/05 Similarities: 05/04 Construction: 04/04 Knowledge: 06/02 Recall: 05/05 Total score: 27/38 CRANIAL NERVES: II: Visual etienne full in all quadrants. Pupils equal, round, and reactive to light III, IV, : Extraocular movements intact. No nystagmus. No ptosis. No dysconjugate gaze. VII: Symmetric smile. Slight droop of left mouth compared to right; no other evidence of facial droop. VIII: Hearing to fingers rubbing together intact bilaterally IX, X: Symmetric palate movements XI: Shoulder shrug intact and symmetric XII: Tongue protrudes midline MOTOR SPEECH: No dysarthria. Normal prosody and phonation LANGUAGE: Normal, grossly nonaphasic MUSCLE STRENGTH: (scoring scale: 5=normal to 0=plegic; right/left) No pronator drift. All major muscles groups of the bilateral upper and lower limbs have symmetric bulk and strength. Noted muscle atrophy diffusely and symmetrically in lower extremities. -Upper limb: deltoid 5/5; biceps 5/5; triceps 5/5; wrist extensors 5/5; finger extensors 5/5; wristflexors 5/5; finger flexors 5/5; interossei 5/5. -Lower limb: iliopsoas 4/4, hip adductors 4+/4+, hip abductors 4+/4+, quadriceps 4+/4+, hamstrings 5/5, anterior tibial 5/5, EHL 5/5, gastroc-soleus 5/5, ankle inversion 5/5, ankle eversion 5/5 TONE: Difficulty relaxing. Normal tone throughout upper and lower limbs. MUSCLE REFLEXES: Biceps, brachioradialis, triceps, and patellar reflexes brisk and symmetric. Achilles reflexes unable to be elicited bilaterally. No ankle clonus bilaterally. CULLEN RESPONSE: (right/left) absent/absent. PLANTAR RESPONSE: (right/left) flexor/flexor. GAIT: Normal sitting and standing balance. Qrl-he-[id number] is independent using arms to push up. Gait is somewhat stiff and mildly ataxic. Able to walk on toes and heels. Unable to tandem walk due to imbalance. Romberg negative. COORDINATION: Normal upper ALIYAH???s. Normal [id number]-[id number]. Normal dhet-yd-gsoj. SENSATION: Diminished pinprick sensation in distal right upper and lower extremities. Patchy areas of diminished pinprick sensation in left upper and lower extremities. Diminished sensation to light touch in distal upper and lower extremities. Vibration sensation intact in upper and lower limbs bilaterally. RESULTS MR Cervical and Thoracic Spine Without and With IV Contrast, scheduled for 11/19/2023 MR Brain Multiple Sclerosis Without and With IV Contrast 11/01/2023 - Impression: Findings consistent with multiple sclerosis. There may be a few new tiny subcortical lesions which could represent progressive demyelination or chronic small vessel ischemic change. Thereis no restricted diffusion or abnormal enhancement to suggest active disease. Optical Coherence Tomography - Optic Nerve 11/01/2023 - Right Eye: Average RNFL was 78.00 microns. Ganglion cell layer was 80.00 microns. Left Eye: Average RNFL was 71.00 microns. Ganglion cell layer was 68.00 microns. Notes: Right eye ganglion cell artifact in the setting of epiretinal membrane. Asymmetry in RNFL thickness and ganglion cell layer analysis on the left may be in keeping with prior episode of left optic neuritis ASSESSMENT / PLAN Yary Prince is a 68 y.o. right-handed female with relapsing-remitting multiple sclerosis who presents for evaluation of symptoms of TIA versus multiple sclerosis. Patient's episode of right upper and possible lower extremity weakness on 09/19 are ultimately of unclear etiology and could represent a stroke or TIA versus multiple sclerosis pseudo relapse. It is unlikely to represent a new active demyelinating lesion given time course of symptoms and no clear corresponding new demyelinating lesions on brain MR. MR brain actually appears similar to previous, and patient does not describe new MS symptoms but rather recurrence of previous symptoms. It is reassuring that CT, CTA, and MR do not clearly visualize an ischemic or hemorrhagic stroke that would correspond with patient's symptoms, and ultimately her symptoms were somewhat transient in nature. We are unable to definitively rule out TIA at this time, and patient has vascular risk factors thatwould make her at risk for TIA or stroke. That said, patient has been on full strength anticoagulation for almost two months now after the episode and it does not appear that she has other indications to stay on anticoagulation. From a Neurology standpoint, it would be appropriate then to discontinue apixaban and optimize other vascular risk factors. This includes recommendation to start a daily aspirin 81mg (if no other medical contraindications) and discontinue smoking. Smoking cessation was discussed in detail with patient today, and she is interested in quitting and would appreciate a nicotine dependence clinic referral for assistance in doing so. Exam today was reassuring that patient does not have an active demyelinating lesion, and she does need current treatment including does not need to restart disease modifying therapy at this time. We recommend still completing MR cervical and thoracic spine to evaluate for any new demyelinating lesions, but this would not change our current impression of her transient neurologic episode on 09/19 and current recommendations regarding anticoagulation. Patient feels she would be unable to tolerate another MR unless under general anesthesia. Once patient has these imaging studies completed, she will follow-up in Neurology clinic to review the results. Of note, patient had Kokmen today and scored 27/38. In 05/2015, patient's Kokmen was 28/38, so thisis not a major change advisor the last 8 years and no further workup indicated at this time. Patient did have more in-depth neurocognitive testing in 2016 and was diagnosed with a major neurocognitive disorder, thought to be related to multiple sclerosis. # Multiple sclerosis, relapsing-remitting # Possible transient ischemic attack # Major neurocognitive disorder # Tobacco use After discussion with the patient, we agreed on the following plan: - No indication to continue apixaban from a Neurology perspective - Consider starting aspiring 81mg daily if no other medical contraindication - Encourage smoking cessation; nicotine dependence clinic referral - Optimize management of other vascular risk factors to decrease stroke risk - MR cervical and thoracic spine with and without contrast; under general anesthesia, as patient feels she will not tolerate without this level of sedation - Follow-up in Neurology clinic to review MR results when complete Malika Marc, PGY-2 * Lizzy Carrington M.D. - 11/15/2023 1:00 PM CDT SUBJECTIVE I have reviewed the history and physical examination findings of Dr. Marc. I have met with Yary Prince. I agree with the clinical notes dated 11/15/23. It was our great pleasure to meet today with Ms. Prince who came accompanied by her supportive who joined us in clinic today. As is documented by our neurology resident expert we are asked to evaluate transient right sided weakness while in hospital for pneumonia. As is documented she has a longstanding history of multiple sclerosis. I was able to review her distantly in 2001 and she has not been seen by Neurology at [facility] for a number of years. She has not been on disease modifying therapies. She tells us that she walks a few [place] can go up and down stairs independently. She uses no gait aid. Does seem that her gait is essentially unrestricted. While in hospital she had right upper extremity problem and possibly right lower extremity problem from the description provided. It may have lasted up to 2 days. As noted she was hospitalized for pneumonia. Previously she had been on anticoagulant therapy for an upper extremity vascular disease. She rarely used an aspirin for pain control purposes. The imaging findings have not been characteristic of a new ischemic stroke at all and there was no evidence on a repeat MRI scan of the brain of a definite new inflammatory demyelinating disease of multiple sclerosis. MRI cervical and thoracic spinal cord is planned. Unfortunately she tells us that there is no way she could complete that with the discomfort that she has from her pancreatitis unless she was anesthetized for this. OBJECTIVE EXAM: Visual etienne full. Extraocular movements showed no internuclear ophthalmoplegia. Speech was clear. On my review upper extremity and lower extremity power seemed to be intact throughout. There was some give-way component of the right lower extremity only. Reflexes were intact throughout with flexor plantar responses bilaterally. Vibratory sense was normal in the toes. Straight away walking was essentially normal and she could get up on her toes and her heels. There was no significant focal incoordination. ASSESSMENT / PLAN We had a detailed discussion with Ms. Prince and her about this and let them know that the etiology of the spell is uncertain. There was no clear radiological evidence of an ischemic cause for this but given her vascular risk factors that remains possible. An inflammatory attack of multiple sclerosis seems less likely on the basis of the quiescence of her disease from an inflammatory standpoint in the past at her age where inflammatory attacks are less common. In addition to this so far the neuroimaging of the brain does not show new inflammatory disease from MS. While we await neuroimaging of the cervical and thoracic spinal cord it does not appear likely thatdisease modifying therapy aimed at multiple sclerosis would be needed. In the absence of a necessity to be on anticoagulant therapy I would recommend she be on low-dose 81 mg aspirin if that is acceptable from her medical standpoint. I think she can proceed with the evaluations that are pending without delay that maybe needed for MRI spinal cord as she may need this under anesthesia given her description today. Importantly aggressive management of her existing vascular risk factors are important including treatment of hypertension, discontinue cigarette smoking entirely and we offered a nicotine dependence review given that her prior medical therapy for this was financially to challenging aggressive treatment of diabetes mellitus hypercholesterolemia and other factors will be important as well. Ms. Prince and her appreciated the review, they accepted our best personal wishes today as well and if she proceeds with the MRI scan of the spinal cord I would like to meet back with her to goover the test results and its implications and next steps in that regard as well. #1 Multiple Sclerosis (HCC) #2 Transient Ischemic Attack #3 Abuse Tobacco Smoking Other orders - Neurology - General consult (clinic) - Neurology office visit (clinic); Future; Expected date: 11/15/2023 (After tests) - MR Cervical Spine without and with IV Contrast; Future; Expected date: 11/15/2023 - MR Thoracic Spine without and with IV Contrast; Future; Expected date: 11/15/2023 - Nicotine Dependence - Counseling consult (clinic); Future; Expected date: 11/15/2023 Relapsing remitting multiple sclerosis without clear inflammatory activity. Time spent 60 minutes documented in this encounter Plan of Treatment Upcoming Encounters Date Type Department Care Team (Latest Contact Info) Description 12/30/2023 9:45 AM CDT Clinical Communication Virtual Review in [place], [place] 200 [place] [address] 12/31/2023 9:30 AM CDT Comprehensive Visit Division of Pain Medicine in [place], [place] [address] [place] [phone] Lincoln Abdi, ATUL, C.N.P., M.S.N. [address] [place] [phone] 12/31/2023 12:45 PM CDT Appointment Division of Gastroenterology in [place], [place] [address] [place] [phone] Jose Roberto Patterson M.D. [address] [place] [phone] 01/02/2024 11:00 AM CDT Virtual Visit Division of Gastroenterology in [place], [place] [address] [place] [address] Jose Roberto Patterson M.D. 200 [place] [phone] 02/10/2024 8:00 AM WARPER CREELER Appointment Department of Radiology, [facility], in [place], [place] [address] [place] [address] Malika Marc M.D. 200 [place] [address] Scheduled Orders Name Type Priority Associated Diagnoses Orde r Schedule MR Cervical Spine without and with IV Contrast Imaging RAD - Routine (most inpatients and all outpatients) Multiple Sclerosis (HCC) Transient Ischemic Attack Expected: 11/15/2023, Expires: 02/14/2025 MR Thoracic Spine without and with IV Contrast Imaging RAD - Routine (most inpatients and all outpatients) Multiple Sclerosis (HCC) Transient Ischemic Attack Expected: 11/15/2023, Expires: 02/14/2025 Scheduled Referrals Name Type Priority Associated Diagnoses Order Schedule Neurology office visit (clinic) Outpatient Referral Routine Multiple Sclerosis (HCC) Transient Ischemic Attack Expected: 11/15/2023, Expires: 02/14/2025 Nicotine Dependence - Counseling consult (clinic) Outpatient Referral Routine Transient Ischemic Attack Abuse Tobacco Smoking Expected: 11/15/2023, Expires: 02/14/2025 documented as of this encounter Visit Diagnoses Diagnosis Multiple Sclerosis (HCC)- Primary Transient Ischemic Attack Abuse Tobacco Smoking documented in this encounter Additional Health Concerns Assessment Noted Time PHQ-9 Depression Total Score: 21 012 10:33 AM WARPER CREELER documented as of this encounter Care Teams Rubber Mill Tender Relationship Specialty Start Date End Date Elsewhere, Pcp PCP - General Internal Medicine 06/26/22 documented as of this encounter
--- OUTSIDE RECORDS SUMMARY | 2023-12-14 17:25 | XMS_ITS | Referral Summary ---
Author Organization [facility] Address [address] [place] [address] Care Team Providers Care Hedge Fund Accountant Name Role Phone Elsewhere, Pcp Primary Care Provider Unavailabl e Source Comments Patient records contain information from all sites at [facility]. For routine questions regarding patient records, call [phone] during business hours, M-F 8:00 AM - 5:00 PM Central Time. Record requests for emergency care only can be directed to [phone] at any time.[facility] Encounters Date Type Department Care Team Description 12/05/2023 Clinical Communication Division of Gastroenterology in [place], [place] [address] [place] [phone] Jose Roberto Patterson M.D. 11/15/2023 1:00 PM CDT Comprehensive Visit Department of Neurology in [place], [place] [address] [place] [phone] Andre Crouch M.D. Keegan, B. Mark, M.D. Multiple Sclerosis (HCC) (Primary Dx); Transient Ischemic Attack; Abuse Tobacco Smoking 11/01/2023 8:45 AM CDT Ancillary Procedure Department of Ophthalmology 11/01/2023 8:45 AM CDT Ancillary Procedure Department of Ophthalmology in [place], [place] [address] [place] [address] Lizzy Carrington M.D. Multiple Sclerosis (HCC); Demyelinating Disease Central Nervous System (HCC) 11/01/2023 9:05 AM CDT - 11/01/2023 11:59 PM CDT Hospital Encounter Department of [facility]iology, [facility] in [place], [place] [address] [place] [phone] Lizzy Carrington M.D. Multiple Sclerosis (HCC) Discharge Disposition: Home or Self Care 10/14/2023 Clinical Communication Department of Ophthalmology in [address] [phone] Provider, Unknown 10/09/2023 1:00 PM CDT Comprehensive Visit Department of Vascular Medicine in [address] [phone] Andre Crouch M.D. Multiple Sclerosis (HCC) (Primary Dx); Loss Weight; Pain Abdominal Chronic; Transient Ischemic Attack; Pancreatitis Chronic (HCC) 10/09/2023 11:12 AM CDT - 10/09/2023 11:59 PM CDT Hospital Encounter Department of Laboratory Medicine and Pathology, [facility] in [place], [place] [address] [place] [phone] Arturo Camacho M.B.B.S., M.S. Loss Weight; Pain Abdominal Chronic Discharge Disposition: Home or Self Care 09/25/2023 8:00 AM CDT Internal E-Consult Department of Vascular Medicine in [address] [phone] Adeola Noonan P.A.-C. Loss Weight; Pain Abdominal Chronic 09/23/2023 Clinical Communication Division of Gastroenterology in [address] [phone] Jose Roberto Patterson M.D. [employer] - Outside Materials 09/20/2023 Clinical Communication Division of Gastroenterology in [address] [phone] Jose Roberto Patterson M.D. Order Request from Last 3 Months Allergies Active Allergy [...] needed for pain. For 30 days. Active [id number] bck-[id number]-C (MoviPrep) 100-7.5-2.691 gram kitIndications:Loss Weight,Pain Abdominal Chronic [...] trivalent vaccine (6 months and older)(PF) 01/14/2013,01/22/2008 Social History Tobacco Use Types Packs/Day Years [...] AM CDT Clinical Communication Virtual Review in [address] [phone] 12/31/2023 9:30 AM CDT Comprehensive Visit Division of Pain Medicine in [address] [phone] Lincoln Abdi, PERSONAL INJURY LEGAL ASSISTANT, C.N.P., M.S.N. [address] [place] [phone] 12/31/2023 12:45 PM CDT Appointment Division of Gastroenterology in [address] [phone] Jose Roberto Patterson M.D. [address] [place] [phone] 01/02/2024 11:00 AM CDT Virtual Visit Division of Gastroenterology in [address] [phone] Jose Roberto Patterson M.D. [address] [place] [phone] 02/10/2024 8:00 AM POCKETS AND PIECES NECKTIE OPERATOR Appointment Department of Radiology, [facility], in [address] [phone] Malika Marc M.D. [address] [place] [address] Medical Devices Implanted Type Area Mud Jack Nozzleman Device Identifier Shelf Expiration Date Model / Serial / Lot [facility] Wdg 10fx22 - [id number] Implanted:Qty : 1 on 07/08/2023 by Jose Roberto Hays M.D. at [facility] [employer] Pancreat[employer] 05/29/2026 [id number] / / [id number] Explanted Type Area Mud Jack Nozzleman Device Identifier Shelf Expiration Date Model / Serial / Lot [facility] 8.5fx22 - [id number] Implanted:Qty : 1 on 05/08/2023 by Alverto Bunch M.D. at [facility]/[employer] Explanted:Qty : 1 on 07/08/2023 by Jose Roberto Hays M.D. at [facility] [employer] 03/12/2026 [id number] / / [id number] Description:8.5 x 12 Procedures Procedure Name Priority [...] A1C, B Routine 02/19/2023 6:1 7 AM POCKETS AND PIECES NECKTIE OPERATOR LIPID PANEL, S Routine 06/02/2014 6:51 AM POCKETS AND PIECES NECKTIE OPERATOR BI BREAST SCREENING UNILATERAL Routine 05/11/2011 2:00 PM POCKETS AND PIECES NECKTIE OPERATOR ALBUMIN, RANDOM, U Routine 05/04/2011 12:00 PM POCKETS AND PIECES NECKTIE OPERATOR CT CHEST WITH IV CONTRAST Routine 03/13/2011 1:35 PM POCKETS AND PIECES NECKTIE OPERATOR from Last 3 Months or Most Recently [...] diffusion orabnormal enhancement to suggest active disease. Authorizing Provider Result Abraham Carrington M.D. [facility] MRI PROCEDURES * Optical Coherence Tomography - Optic Nerve - OU - Both Eyes (11/01/2023 8:58 AM CDT) Narrative OPHTHALMOLOGY IMAGING EXAM - 11/05/2023 6:31 PM CDT OCT device used was [employer] . Right Eye Average RNFL was 78.00 microns. Ganglion cell layer was 80.00 microns. Left Eye Average RNFL was 71.00 microns. Ganglion cell layer was 68.00 microns. Notes Right eye ganglion cell artifact in the setting of epiretinal membrane. Asymmetry in RNFL thickness and ganglion cell layer analysis on the left may be in keeping with prior episode of left optic neuritis Authorizing Provider Result Abraham Carrington M.D. OPHTH TOMOGRAPHY OPHTHALMOLOGY IMAGING EXAM * Optical Coherence Tomography [...] RAD IMAGI NG PROCEDURES Performing Organization Address City/[facility]/ZIP Co de Phone Number IILA NA * APTT (Activated Partial Thromboplastin Time) (10/09/2023 11:27 AM CDT) Activated Partial Thrombopl Time, P 35 25 - 37 sec 10/09/2023 12:44 PM CDT DTL Blood (Blood, Venous) 10/09/2023 11:27 AM CDT 10/09/2023 12:20 PM CDT Arturo Juan, M.S. LAB BLOOD ADD-ON Performing Organization Address City/[facility] Co de Phone Number [address] [place] [address] * Prothrombin Time (PT) (10/09/2023 11:27 AM CDT) Prothrombin Time, P 11.7 9.4 - 12.5 sec 10/09/2023 12:44 PM CDT DTL INR 1.1 0.9 - 1.1 10/09/2023 12:44 PM CDT DTL Comment: ----ADDITIONAL INFORMATION---- Standard intensity warfarin therapeutic range: 2.0 to 3.0 ?? High intensity warfarin therapeutic range: 2.5 to 3.5 Blood (Blood, Venous) 10/09/2023 11:27 AM CDT 10/09/2023 12:20 PM CDT Swethadavida Toribio Janice Juan, M.S. LAB BLOOD ADD-ON [facility] [address] [place] [address], [facility] DTL [facility] [address] [place] [address] * (ABNORMAL) CBC with Differential, Blood (10/09/2023 11:27 AM CDT) Hemoglobin 11.7 11.6 - 15.0 g/dL 10/09/2023 [...] AM CDT 10/09/2023 12:20 PM CDT Arturo Juan M.S. LAB BLOOD ADD-ON [facility] [address] [place] [address], [place] DTL [facility] [address] [place] [address] [facility] [address] [place] [address] * (ABNORMAL) Comprehensive Metabolic Panel (10/09/2023 11:27 AM CDT) [facility] Potassium, S 4.2 3.6 - 5.2 mmol/L [...] CDT Arturo Juan, M.S. LAB BLOOD ADD-ON [facility] [address] [place] [address], [facility] [place] 200 [place] [address] * Outside CT Body (09/19/2023 8:55 PM CDT) Only the most recent of2 resultswithin the time period is included. 09/19/2023 9:11 PM CDT Addenda Addendum by foodpanda / hellofood, Outside on 09/19/2023 9:11 PM CDT BELOW REPORT RECEIVED BY [facility] ON 09/20/2023 09:28:24 [id number] For Patients: ??As a result of the 21st Century Cures Act, medical imaging exams and [...] Lew Olson RELEASED BY DELANEY Addendum by foodpanda / hellofood, Outside on 09/19/2023 9:11 PM CDT BELOW REPORT RECEIVED BY [facility] ON 09/20/2023 09:27:37 [id number] For Patients: ??As a result of the [...] Lew Olson RELEASED BY DELANEY Addendum by foodpanda / hellofood, Outside on 09/19/2023 9:11 PM CDT BELOW REPORT RECEIVED BY [facility] ON 09/20/2023 09:29:45 [id number] For Patients: ??As a result of the [...] * BI Breast Screening (05/11/2011 2:00 PM POCKETS AND PIECES NECKTIE OPERATOR) Anatomical Region Laterality Modality Breast N/A Mammography 05/11/2011 2:00 PM POCKETS AND PIECES NECKTIE OPERATOR Impressions 05/11/2011 2:46 PM POCKETS AND PIECES NECKTIE OPERATOR NEGATIVE There is no mammographic evidence of malignancy. ?? RECOMMENDATION: A 1 year screening mammogram is recommended. ?? The patient will receive a letter notifying her of the results. ?? Justin Landa M.D. ? dla/penrad:05/11/2011 14:46:05 ?? letter sent: 1S/2S - Negative Screen ?? Mammogram BI-RADS: 1 Negative Electronically signed by: ?? Reba ??Syeda LOUIS ??[id number] 11-May-2011 14:46 Narrative 05/11/2011 2:46 PM POCKETS AND PIECES NECKTIE OPERATOR 11-May-2011 14:00:00 ??Exam: B MG /Screening Exam [...] letter notifying her of the results. Justin sims/anabel:05/11/2011 14:46:05 letter sent: 1S/2S - Negative Screen Mammogram BI-RADS: 1 Negative Electronically signed by: Reba Landa MD [id number] 11-May-2011 14:46 Nathaly Breaux M.D. IMG BI DE OCEDURES * (ABNORMAL) Microalbumin, Random, Urine (05/04/2011 12:00 PM POCKETS AND PIECES NECKTIE OPERATOR) Creatinine, Random, U 74.9 30.0 - 125.0 MGDL POWERCHART HXU Albumin % 24.4 12.0 - 30.0 MGL POWERCHART Albumin/Creatin ine Ratio 33(H) 0 - 25 MGGM POWERCHART Urine 05/04/2011 12:0 0 PM POCKETS AND PIECES NECKTIE OPERATOR Nathaly Breaux M.D. LAB URINE ORDERABLES POWERCHART * CT Chest with IV Contrast (03/13/2011 1:35 PM POCKETS AND PIECES NECKTIE OPERATOR) Anatomical Region Laterality Modality Chest N/A Computed Tomogra phy 03/13/2011 1:35 PM POCKETS AND PIECES NECKTIE OPERATOR Impressions 03/13/2011 1:56 PM POCKETS AND PIECES NECKTIE OPERATOR No pulmonary emboli. FINDINGS: Suboptimal contrast bolus [...] [id number] 13-Mar-2011 13:56 Narrative 03/13/2011 1:56 PM POCKETS AND PIECES NECKTIE OPERATOR 13-Mar-2011 13:35:00 ??Exam: CT CHEST w Indications: [...] MD [id number] 13-Mar-2011 13:56 Nathaly Breaux M.D. IMAscencion CT DE OCEDURES from Last 3 Months or Most Recently Relevant to Health Maintenance Advance Directives For more information, please contact: [phone] Documents on File Type Date Recorded Patient Engineer Automated Equipment Expl anation Advance Directives 09/17/2011 12:00 AM Leg acy document. See document viewer. * Full Code (Latest Code Status on File) Date Activated Date Inactivated Comments 10/23/2022 2:51 PM 10/25/2022 1:26 AM Question Answer Comments Full Code: Discussed Care Teams Hedge Fund Accountant Relationship Specialty Start Date End Date Elsewhere, Pcp PCP - General Internal Medicine 06/26/22
--- OUTSIDE RECORDS SUMMARY | 2023-12-14 17:25 | XMS_ITS | Encounter Summary ---
Author Organization [facility] Address [address] [place] [address] Care Team Providers Care Medical Referral Coordinator Name Role Phone Elsewhere, Pcp Primary Care Provider Unavailabl e Encounter Details Date Type Department Care Team (Latest Contact Info) Description 11/01/2023 8:45 AM CDT Ancillary Procedure Department of Ophthalmology in [place], [place] [address] [place] [phone] Lizzy Carrington M.D. [address] [place] [phone] Multiple Sclerosis (HCC); Demyelinating Disease Central Nervous System (HCC) Social History Tobacco Use Types Packs/Day [...] AM CDT Clinical Communication Virtual Review in [place], [place] [address] [place] [address] 12/31/2023 9:30 AM CDT Comprehensive Visit Division of Pain Medicine in [place], [place] [address] [place] [phone] Lincoln Abdi, ATUL, C.N.P., M.S.N. [address] [place] [phone] 12/31/2023 12:45 PM CDT Appointment Division of Gastroenterology in [place], [place] [address] [place] [phone] Jose Roberto Patterson M.D. [address] [place] [phone] 01/02/2024 11:00 AM CDT Virtual Visit Division of Gastroenterology in [place], [place] [address] [place] [phone] Jose Roberto Patterson M.D. [address] [place] [phone] 02/10/2024 8:00 AM ASSISTANT COMMISSIONER Appointment Department of Radiology, [facility], in [address] [phone] Malika Marc M.D. [address] [place] [phone] documented as of this encounter Procedures Procedure Name Priority Date/Time Associated Diagnosis Comments OPTICAL COHERENCE TOMOGRAPHY (OCT) - OPTIC NERVE - OU - BOTH EYES Routine 11/01/2023 8:58 AM CDT Multiple Sclerosis (HCC) Demyelinating Disease Central Nervous System (HCC) documented in this encounter Results * Optical Coherence Tomography - Optic Nerve [...] optic neuritis Lizzy Carrington M.D. OPHTH TOMOGRAPHY OPHTHALMOLOGY IMAGING EXAM documented in this encounter Visit Diagnoses Diagnosis Multiple Sclerosis (HCC) Demyelinating Disease Central Nervous System (HCC) documented in this encounter Additional Health Concerns Assessment Noted Time PHQ-9 Depression Total Score: 21 05/31/ 012 10:33 AM ASSISTANT COMMISSIONER documented as of this encounter Care Teams Medical Referral Coordinator Relationship Specialty Start Date End Date Elsewhere, Pcp PCP - General Internal Medicine 06/26/22 documented as of this encounter
--- OUTSIDE RECORDS SUMMARY | 2023-12-14 17:25 | XMS_ITS ---
Author Organization [facility] Address [address] [place] [address] Care Team Providers Care Cloth Checker Name Role Phone Unavailable Unavailable Unavailable Surgery Details Not on file Complications Check Surgery Details section. Procedure Estimated Blood Loss Check Surgery Details section. Procedure Findings Check Surgery Details section. Procedure Specimens Taken Check Surgery Details section.
--- OUTSIDE RECORDS SUMMARY | 2023-12-14 17:25 | XMS_ITS | Clinical Summary ---
Author Organization [facility] Address [place], [place] [address] Care Team Providers Care Tip Stitcher Name Role Phone Anne Esquivel [employer] Primary Care Provider [phone] Allergies Active Allergy Reactions Criticality Noted Date Comments Lactose GI Upset 10/16/2002 Nitrofurantoin Hives Medium 01/17/2010 Pollen Extracts Hives 02/02/2011 Prednisone Myalgia 07/03/2002 Sulfamethoxazole *Unknown 10/04/2010 Sulfamethoxazole-Trimethoprim Hives Medium 2009 Trimethoprim *Unknown 05/17/2021 Medications Medication Sig Dispensed Refills Start Date End Date Status DULoxetine (CYMBALTA) 30 mg Delayed-release capsule Take 30 mg by mouth every morning. Active DULoxetine (CYMBALTA) 60 mg Delayed-release capsule Take 60 mg by mouth at bedtime. Active insulin glargine, U-100, (Lantus U-100 Insulin) 100 unit/mL injection Inject 40 units subcutaneous two times daily. Product desired: LANTUS Active losartan (COZAAR) 100 mg tablet Take 100 mg by mouth at bedtime. Active montelukast (SINGULAIR) 10 mg tablet Take 10 mg by mouth at bedtime. Active multivitamins-minera ls-lutein (Centrum Silver) 0.4 mg-300 mcg- 250 mcg tab Take 1 Tablet by mouth at bedtime. Active ondansetron (ZOFRAN ODT) [address] 4 mg on the tongue 3 times daily if needed for Nausea/Vomiting. Active oxyCODONE (ROXICODONE) 5 mg immediate release tablet Take 5 mg by mouth every 6 hours if needed for Pain. Active QUEtiapine (SEROQUEL) 400 mg tablet Take 400 mg by mouth at bedtime. Take with one 100 mg tablet for total dose of 500 mg. Active SUMAtriptan (IMITREX) 100 mg tablet Take 100 mg by mouth every 2 hours if needed for Migraine. Give at minimum 2hrs apart. Max Dose: 200mg per 24hrs. Active oxybutynin XL (DITROPAN XL) 10 mg CR tablet Take 10 mg by mouth once daily. Active polyethylene glycoL (MIRALAX) 17 gram/scoop powderIndications:Ch ronic, continuous use of opioids Mix 1 scoop (17 g) in liquid then take by mouth once daily if needed for Constipation. 510 g 01/08/2023 Active QUEtiapine (SEROQUEL) 100 mg tablet Take 100 mg by mouth at bedtime. Take with one 400 mg tablet for total dose of 500 mg. Active cyclobenzaprine (FLEXERIL) 10 mg tablet Take 10 mg by mouth 3 times daily if needed for Muscle Spasm. Active simvastatin (ZOCOR) 40 mg tablet Take 40 mg by mouth at bedtime. Active apixaban (ELIQUIS) 5 mg tabletIndications:de ep venous thrombosis Take 1 Tablet (5 mg) by mouth two times daily. 60 Tablet 09/22/2023 Active Active Problems Problem Noted Date Diagnosed Date Hypomagnesemia 09/22/2023 Acute bronchitis due to Rhinovirus 09/21/2023 TIA (transient ischemic attack) 09/21/2023 Bacteremia due to Gram-positive bacteria 024 Hypokalemia 09/20/2023 Hyponatremia 09/20/2023 Acidosis 09/20/2023 Constipation 09/20/2023 Severe protein-calorie malnutrition 09/20/2023 History of DVT (deep vein thrombosis) 09/20/2023 Multifocal pneumonia 09/19/2023 Acute deep vein thrombosis ( DVT) of [...] 01/12/2019 Essential hematuria 01/18/2010 Bipolar disorder 09/18/2005 Overview (01/06/2023): Epic Bipolar disorder NOS Multiple sclerosis 11/06/2002 Overview (09/19/2023): Multiple Sclerosis Multiple sclerosis Encounters Date Type Department Care Team Description 10/08/2023 Nurse Triage [facility] [address] [place] [address] Anne Esquivel NP Home Care 10/07/2023 Transcribe Orders [facility] [address] [place] [address] Anne Esquivel NP 09/23/2023 Social Work Encounter [facility] [address] [place] [address] Beck Buckner LSW Social Work Visit 09/19/2023 6:36 PM CDT - 09/22/2023 11:26 AM CDT Hospital Encounter [facility] [address] [place] [address] Komal Barbour, Trenton Soto MD Nyauncho, MD Nicho Marcelino, Wero Alfred, DO Pearl, Alba Tanner NP Multifocal pneumonia (Primary Dx); Hyperglycemia; Chronic pancreatitis, unspecified pancreatitis type (HC); Constipation, unspecified constipation type; TIA (transient ischemic attack) Discharge Disposition: Home Self Care 09/19/2023 Travel from Last 3 Months Social History [...] of Communication with Friends and Fami ly 4 09/20/2023 Financial Resource Strain Answer Date R ecorded Difficulty of Paying Living Expenses Not on file 09/20/2023 Difficulty of Paying Living Expenses 3 09/20/2023 Food Insecurity Answer Date Recorded Worried About Running Out of Food in the Last Ye ar 1 11/22/2022 Transportation Needs Answer Date Record ed Lack of Transportation (Medical) 2 09/20/2023 Housing Stability Answer Date Recorded Unable to Pay for Housing in the Last Year 1 11/22/2022 Sex and Gender Information Value Date Recorded Sex Assigned at Not on file Gender Identity Not on file Sexual Orientation Not on file Obstetrics History Last Filed Vital Signs Vital Sign Reading Time Taken Comments Blood Pressure 142/105 09/22/2023 6:34 AM CDT Pulse 75 09/22/2023 7:47 AM CDT Temperature 36.8 ??C (98.2 ??F) 09/22/2023 6:34 AM CD T Respiratory Rate 16 09/22/2023 6:34 AM CDT Oxygen Saturation 92% 09/22/2023 6:34 AM CDT Inhaled Oxygen Concentration - - Weight 51.4 kg (113 lb 6.4 oz) 09/21/2023 6:37 A M CDT Height 162.6 cm (5' 4) 09/19/2023 6:43 PM CDT Body Mass Index 19.47 09/19/2023 6:43 PM CDT Plan of Treatment Health Maintenance Due Date Last Done Comments Pneumococcal series for age 65+ (1 of 2 - PCV) 1960 Tdap 1965 Depression screening for age 12+ 1966 BMI (ht and wt on same day) for age 18+ 1972 Hepatitis C screening for age 18-79 1972 Tetanus booster 1974 Colonoscopy through age 75 1999 Mammogram for age 45-75 1999 Zoster (shingles) series for age 50+ (1 of 2) 2004 DEXA/DXA scan for age 65+ 2019 Medicare Wellness for age 65+ 2019 COVID-19 vaccine series ( season) 2023 Influenza for age 65+ 12/01/2023 Lipids for age 45-75 09/19/2028 09/20/2023, 11/23/19 Procedures Procedure Name Priority Date/Time Associated Diagnosis Comments SCAN-CARDIAC STRIP 09/22/2023 9: 58 AM CDT GLUCOSE METER Routine 09/22/2023 7:31 AM CDT PHOSPHORUS Early AM 09/22/2023 6:27 AM CDT WHITE BLOOD COUNT Early AM 09/22/2023 6:2 7 AM CDT C-REACTIVE PROTEIN Early AM 09/22/2023 6: 27 AM CDT MAGNESIUM Early AM 09/22/2023 6:27 AM CDT HEMOGLOBIN Early AM 09/22/2023 6:27 AM CDT BASIC METABOLIC PANEL Early AM 09/22/2023 6:27 AM CDT GLUCOSE METER Routine 09/21/2023 9:15 PM CDT PHOSPHORUS Today 09/21/2023 8:11 PM CDT GLUCOSE METER Routine 09/21/2023 4:23 PM CDT GLUCOSE METER Routine 09/21/2023 11:09 AM CDT SCAN-CARDIAC STRIP 09/21/2023 9: 52 AM CDT GLUCOSE METER Routine 09/21/2023 7:05 AM CDT WHITE BLOOD COUNT Early AM 09/21/2023 6:3 1 AM CDT POTASSIUM Early AM 09/21/2023 6:30 AM CDT PHOSPHORUS Early AM 09/21/2023 6:30 AM CDT MAGNESIUM Early AM 09/21/2023 6:30 AM CDT CREATININE Early AM 09/21/2023 6:30 AM CDT C-REACTIVE PROTEIN Early AM 09/21/2023 6: 30 AM CDT EKG 12 LEAD Today 09/21/2023 6:28 AM CDT SCAN-CARDIAC STRIP 09/21/2023 12 :50 AM CDT GLUCOSE METER Routine 09/21/2023 12:41 AM CDT GLUCOSE METER Routine 09/20/2023 8:57 PM CDT GLUCOSE METER Routine 09/20/2023 7:47 PM CDT GLUCOSE METER Routine 09/20/2023 7:16 PM CDT GLUCOSE METER Routine 09/20/2023 6:[address] ANGIO HEAD AND NECK CAROTID STAT 09/20/2023 6:[address] HEAD BRAIN WO STAT 09/20/2023 6:09 PM CDT ECHO TTE LIMITED WO CONTRAST W COLOR W LTD DOPPLER Today 09/20/2023 5:03 PM CDT LIPID PANEL [place] 09/20/2023 5:02 PM CDT ELECTROLYTE PANEL Timed 09/20/2023 5:0 2 PM CDT GLUCOSE METER Routine 09/20/2023 4:51 PM CDT GLUCOSE METER Routine 09/20/2023 4:25 PM CDT SCAN-CARDIAC STRIP 09/20/2023 4: 20 PM CDT BLOOD CULTURE Today 09/20/2023 3:25 PM CDT BLOOD CULTURE Today 09/20/2023 3:18 PM CDT GLUCOSE METER Routine 09/20/2023 3:17 PM CDT GLUCOSE METER Routine 09/20/2023 1:49 PM CDT RESPIRATORY PANEL MULTIPLEX PCR Today 09/20/2023 1:48 PM CDT MR SPINE LUMBAR WWO STAT 09/20/2023 1 :44 PM CDT GLUCOSE METER Routine 09/20/2023 12:17 PM CDT SCAN-CARDIAC STRIP 09/20/2023 12 :16 PM CDT MAGNESIUM Timed 09/20/2023 11:15 AM CDT BLOOD GAS,VENOUS Timed 09/20/2023 11:1 5 AM CDT PROCALCITONIN Timed 09/20/2023 11:15 AM CDT BASIC METABOLIC PANEL STAT 09/20/2023 11:15 AM CDT GLUCOSE METER Routine 09/20/2023 10:19 AM CDT GLUCOSE METER Routine 09/20/2023 9:20 AM CDT POTASSIUM STAT 09/20/2023 9:17 AM CDT GLUCOSE METER Routine 09/20/2023 8:21 AM CDT SCAN-CARDIAC STRIP 09/20/2023 8: 09 AM CDT EKG 12 LEAD Routine 09/20/2023 6:19 AM CDT GLUCOSE METER Routine 09/20/2023 6:13 AM CDT HEMOGLOBIN A1C SCREENING [place] 09/20/2023 5:58 AM CDT ELECTROLYTE PANEL STAT 09/20/2023 5:5 8 AM CDT MAGNESIUM Early AM 09/20/2023 5:58 AM CDT PHOSPHORUS Early AM 09/20/2023 5:58 AM CDT GLUCOSE, RANDOM Early AM 09/20/2023 5:58 AM CDT C-REACTIVE PROTEIN Early AM 09/20/2023 5: 58 AM CDT WHITE BLOOD COUNT Early AM 09/20/2023 5:5 8 AM CDT GLUCOSE, RANDOM [place] 09/20/2023 4:52 AM CDT POTASSIUM STAT 09/20/2023 4:52 AM CDT GLUCOSE METER Routine 09/20/2023 4:02 AM CDT GLUCOSE METER Routine 09/20/2023 3:08 AM CDT POTASSIUM STAT 09/20/2023 2:48 AM CDT COVID-19 MOLECULAR STAT 09/20/2023 2: 17 AM CDT GLUCOSE METER Routine 09/20/2023 2:06 AM CDT GLUCOSE METER Routine 09/20/2023 1:11 AM CDT ELECTROLYTE PANEL [place] 09/20/2023 12: 55 AM CDT GLUCOSE METER Routine 09/20/2023 12:03 AM CDT SCAN-CARDIAC STRIP 09/19/2023 11 :23 PM CDT GLUCOSE METER Routine 09/19/2023 11:00 PM CDT MAGNESIUM Today 09/19/2023 10:47 PM CDT PHOSPHORUS Today 09/19/2023 10:47 PM CDT POTASSIUM STAT 09/19/2023 10:47 PM CDT GLUCOSE METER Routine 09/19/2023 9:[address] ABDOMEN PELVIS W STAT 09/19/2023 8 [address] CHEST PE STUDY STAT 09/19/2023 8:5 6 PM CDT BLOOD CULTURE MULTIPLEX PCR STAT 09/19/2023 8:32 PM CDT BLOOD CULTURE STAT 09/19/2023 8:32 PM CDT POTASSIUM STAT 09/19/2023 8:25 PM CDT BETA HYDROXYBUTYRATE IN HOUSE STAT 09/19/2023 8:25 PM CDT PROCALCITONIN STAT 09/19/2023 8:25 PM CDT BLOOD CULTURE STAT 09/19/2023 8:25 PM CDT LACTATE VENOUS Today 09/19/2023 8:25 PM CDT URINE CULTURE [place] 09/19/2023 7:38 PM CDT URINALYSIS MICROSCOPIC STAT 7:38 PM CDT UA W/ SEDIMENT EXAM REFLEXED PER CRITERIA STAT 09/19/2023 7:38 PM CDT XR CHEST 1 VIEW PORTABLE STAT 09/19/2023 7:29 PM CDT TRIGLYCERIDES [place] 09/19/2023 7:17 PM CDT LIPASE [place] 09/19/2023 7:17 PM CDT CBC WITH AUTO DIFFERENTIAL STAT 09/19/2023 7:17 PM CDT PRO-BNP STAT 09/19/2023 7:17 PM CDT C-REACTIVE PROTEIN STAT 09/19/2023 7: 17 PM CDT PROTIME-INR STAT 09/19/2023 7:17 PM CDT COMP METABOLIC PANEL STAT 09/19/2023 7:17 PM CDT CBC WITH AUTO DIFFERENTIAL STAT 09/19/2023 7:17 PM CDT from Last 3 Months Results * SCAN-CARDIAC STRIP (09/22/2023 9:58 AM CDT) Scanner OTHER * (ABNORMAL) GLUCOSE METER (09/22/2023 7:31 AM CDT) Only the most recent of26 resultswithin the time period is included. [facility] Signature GLUCOSE METER 104(H) 65 - 100 mg/dL 09/22/2023 7:33 AM CDT [facility] Blood BLOOD SPECIMEN / Unknown 09/22/2023 7:31 AM CDT 09/22/2023 7:33 AM CDT Wero Torre DO CHEMISTRY [facility] [address] [place] [address] * WHITE BLOOD COUNT (09/22/2023 6:27 AM CDT) Only the most recent of3 resultswithin the time period is included. WHITE BLOOD COUNT 10.9 4.5 - 11.0 thou/cu mm 09/22/2023 6:42 AM CDT [facility] Blood BLOOD SPECIMEN / Unknown Butterfly / Unknown 09/22/2023 6:27 AM CDT 09/22/2023 6:34 AM CDT Wero Torre DO HEMATOLOGY [facility] [address] [place] [address] * HEMOGLOBIN (09/22/2023 6:27 AM CDT) HEMOGLOBIN 13.3 12.0 - 16.0 g/dL 09/22/2023 6:42 AM CDT [facility] MCV 95 80 - 100 fL 09/22/2023 6:42 AM CDT [facility] Blood BLOOD SPECIMEN / Unknown Butterfly / Unknown 09/22/2023 6:27 AM CDT 09/22/2023 6:34 AM CDT Wero Torre DO HEMATOLOGY Performing Organization Address City/[facility]/ZIP Co de Phone Number [facility] [address] [place] [address] * (ABNORMAL) C-REACTIVE PROTEIN (09/22/2023 6:27 AM CDT) Only the most recent of4 resultswithin the time period is included. C-REACTIVE PROTEIN 3.3(H) <0.5 mg/dL 09/22/2023 7:56 AM CDT [facility] Blood BLOOD SPECIMEN / Unknown Butterfly / Unknown 09/22/2023 6:27 AM CDT 09/22/2023 6:35 AM CDT Wero Torre DO CHEMISTRY [facility] [address] [place] [address] * PHOSPHORUS (09/22/2023 6:27 AM CDT) Only the most recent of5 resultswithin the time period is included. PHOSPHORUS 3.3 2.5 - 4.5 mg/dL 09/22/2023 7:56 AM CDT [facility] Blood BLOOD SPECIMEN / Unknown Butterfly / Unknown 09/22/2023 6:27 AM CDT 09/22/2023 6:35 AM CDT Alecia Bliss RN CHEMISTRY Performing Organization Address City/[facility]/ZIP Co de Phone Number [facility] [address] [place] [address] * (ABNORMAL) MAGNESIUM (09/22/2023 6:27 AM CDT) Only the most recent of5 resultswithin the time period is included. MAGNESIUM 1.5(L) 1.6 - 2.4 mg/dL 09/22/2023 7:56 AM CDT [facility] Blood BLOOD SPECIMEN / Unknown Butterfly / Unknown 09/22/2023 6:27 AM CDT 09/22/2023 6:35 AM CDT Wero Torre DO CHEMISTRY Performing Organization Address City/[facility]/ZIP Co de Phone Number [facility] [address] [place] [address] * BASIC METABOLIC PANEL (09/22/2023 6:27 AM CDT) Only the most recent of2 resultswithin the time period is included. SODIUM 142 136 - 145 mmol/L 09/22/2023 7:56 AM CDT [facility] POTASSIUM 3.6 3.5 - 5.1 mmol/L 09/22/2023 7:56 AM CDT [facility] CHLORIDE 106 98 - 107 mmol/L 09/22/2023 7:56 AM [facility] CO2,TOTAL 27 22 - 29 mmol/L 09/22/2023 7:56 AM [facility] ANION GAP 9 5 - 18 09/22/2023 7:56 AM [facility] GLUCOSE 84 70 - 99 mg/dL 09/22/2023 7:56 AM [facility] CALCIUM 9.4 8.8 - 10.2 mg/dL 09/22/2023 7:56 AM [facility] BUN 13 8 - 23 mg/dL 09/22/2023 7:56 AM [facility] CREATININE 0.70 0.50 - 0.90 mg/dL 09/22/2023 7:56 AM [facility] BUN/CREAT RATIO 19 10 - 20 7:56 AM [facility] eGFR >90 >90 mL/min/1.7 3m2 09/22/2023 7:56 AM [facility] Comment:As of 2021, eG FR is calculated by the CKD-EPI creatinine equation without race adjustment. ??eGFR can be influenced by muscle mass, exercise, and diet. ??The reported eGFR is an estimation only and is only applicable if the renal function is stable. Blood BLOOD SPECIMEN / Unknown Butterfly / Unknown 09/22/2023 6:27 AM CDT 09/22/2023 6:35 AM CDT Wero Torre DO CHEMISTRY [facility] [address] [place] [address] * SCAN-CARDIAC STRIP (09/21/2023 9:52 AM CDT) Scanner OTHER * POTASSIUM (09/21/2023 6:30 AM CDT) Only the most recent of6 resultswithin the time period is included. POTASSIUM 4.5 3.5 - 5.1 mmol/L 09/21/2023 7:34 AM CDT [facility] Blood BLOOD SPECIMEN / Unknown Butterfly / Unknown 09/21/2023 6:30 AM CDT 09/21/2023 6:35 AM CDT Aline Carmona RN CHEMISTRY Performing Organization Address [facility] de Phone Number [facility] [address] [place] [address] * CREATININE (09/21/2023 6:30 AM CDT) eGFR >90 >90 mL/min/1.7 3m2 09/21/2023 7:34 AM CDT [facility] Comment:As of 2021, eG FR is calculated by the CKD-EPI creatinine equation without race adjustment. ??eGFR can be influenced by muscle mass, exercise, and diet. ??The reported eGFR is an estimation only and is only applicable if the renal function is stable. CREATININE 0.67 0.50 - 0.90 mg/dL 09/21/2023 7:34 AM CDT [facility] Blood BLOOD SPECIMEN / Unknown Butterfly / Unknown 09/21/2023 6:30 AM CDT 09/21/2023 6:35 AM CDT Wero Torre DO CHEMISTRY Performing Organization Address [facility] Co de Phone Number [facility] [address] [place] [address] * EKG 12 LEAD (09/21/2023 6:28 AM CDT) Only the most recent of2 resultswithin the time period is included. Interpretation Normal sinus rhythm Septal infarct , age undetermined Abnormal ECG When compared with ECG of 21-SEP-2023 00:37, (Unconfirmed) QRS axis Shifted left Criteria for Lateral infarct are no longer Present BEYOND NOW Ventricular Rate 75 BPM BEYOND NOW Atrial Rate 75 BPM BEYOND NOW P-R Interval 154 ms BEYOND NOW QRS Duration 82 ms BEYOND NOW QT 398 ms BEYOND NOW QTc 444 ms BEYOND NOW P [place] 69 degrees BEYOND NOW R [place] 81 degrees BEYOND NOW T [place] 75 degrees BEYOND NOW 09/21/2023 6:28 AM CDT 09/22/2023 1:19 PM CDT Aline Carmona RN EKG ORD BEYOND NOW [place], [place] * SCAN-CARDIAC STRIP (09/21/2023 12:50 AM CDT) Scanner OTHER * CT ANGIO HEAD AND NECK CAROTID (09/20/2023 6:11 PM CDT) Anatomical Region Laterality Modality BRAIN, NECK Computed Tomogra phy 09/20/2023 7:08 PM CDT Addenda Addendum by Kvng Bardales MD on 09/21/2023 9:57 AM CDT For Patients: ??As a result of the Cures Act, medical imaging exams and procedure reports are released immediately into your electronic medical record. ??You may view this report before your referring provider. ?? If you have questions, please contact your health care provider. CLINICAL HISTORY: Acute neurological deficit. TECHNIQUE: Standard helical CT image acquisition through the head following the administration of intravenous contrast was performed. 3D and MIP reconstructions were performed at a separate workstation and permanently archived. COMPARISON: None available. FINDINGS: Moderate stenosis of the proximal to mid P2 segment of the right [employer]ILY [employer] SCI[employer]. No evidence of cerebral aneurysm. No findings to suggest an arterial-venous shunting lesion. The major dural venous sinuses and deep venous system are patent. 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 Please note that all CT scans at this facility use dose modulation, iterative reconstruction, and/or weight-based dosing when appropriate to reduce radiation dose to as low as reasonably achievable. Dictated by Kvng Bardales MD @ 09/21/2023 9:57:33 AM (Electronically Signed) Impressions 09/21/2023 9:55 AM CDT Patent cervical arterial vasculature without hemodynamically significant luminal stenosis. Please note that all CT scans at this facility use dose modulation, iterative reconstruction, and/or weight-based dosing when appropriate to reduce radiation dose to as low as reasonably achievable. Dictated by Kvng Bardales MD @ 09/21/2023 9:55:00 AM (Electronically Signed) Narrative 09/21/2023 9:55 AM CDT For Patients: ??As a result of the Cures Act, medical imaging exams and procedure reports are released immediately into your electronic medical record. ??You may view this report before your referring provider. ??If you have questions, please contact your health care provider. CLINICAL HISTORY: Acute neurological deficit. TECHNIQUE: Standard helical CT image acquisition through the neck was performed after intravenous contrast bolus enhancement. 3D and MIP reconstructions were performed at a separate workstation and permanently archived. COMPARISON: None available. FINDINGS: The origins of the great vessels from the aortic arch are patent. ??The common carotid arteries are patent. No significant luminal stenoses of the proximal ICAs by NASCET criteria. The more distal cervical segments of the ICAs are patent. The origins and cervical segments of the vertebral arteries are patent. Procedure Note Kvng Bardales MD - 09/21/2023 For Patients: As a result of the Cures Act, medical imagingexams and procedure reports are released immediately into your electronicmedical record. You may view this report before your referring provider.If you have questions, please contact your health care provider. CLINICAL HISTORY: Acute neurological deficit. TECHNIQUE: Standard helical CT image acquisition through the neck was performed afterintravenous contrast bolus enhancement. 3D and MIP reconstructions wereperformed at a separate workstation and permanently archived. COMPARISON: None available. FINDINGS: The origins of the great vessels from the aortic arch are patent. Thecommon carotid arteries are patent. No significant luminal stenoses of theproximal ICAs by NASCET criteria. The more distal cervical segments of theICAs are patent. The origins and cervical segments of the vertebralarteries are patent. IMPRESSION: Patent cervical arterial vasculature without hemodynamically significantluminal stenosis. Please note that all CT scans at this facility use dose modulation,iterative reconstruction, and/or weight-based dosing when appropriate toreduce radiation dose to as low as reasonably achievable. Dictated by Kvng Bardales MD @ 09/21/2023 9:55:00 AM (Electronically Signed) Alba Carmen [employer] CT * CT HEAD BRAIN WO (09/20/2023 6:09 PM CDT) Anatomical Region Laterality Modality HEAD, BRAIN Computed Tomogra phy 09/20/2023 6:47 PM CDT Impressions 09/20/2023 6:[address] evidence of acute intracranial abnormality. 2. Tiny chronic lacunar infarcts in the bilateral basal ganglia with superimposed findings likely reflecting sequela of chronic small vessel ischemia. 3. Mild generalized parenchymal volume loss. Please note that all CT scans at this facility use dose modulation, iterative reconstruction, and/or weight-based dosing when appropriate to reduce radiation dose to as low as reasonably achievable. Dictated by Kvng Bardales MD @ 09/20/2023 6:47:34 PM (Electronically Signed) Narrative 09/20/2023 6:47 PM CDT For Patients: ??As a result of the Cures Act, medical imaging exams and procedure reports are released immediately into your electronic medical record. ??You may view this report before your referring provider. ??If you have questions, please contact your health care provider. CLINICAL HISTORY: Acute neurological deficit. TECHNIQUE: Standard helical CT image acquisition through the head was performed. COMPARISON: None available. FINDINGS: There is no CT evidence of acute intracranial hemorrhage, extra-axial collection, mass effect or midline shift. Epps-white matter differentiation is preserved. Mild generalized parenchymal volume loss with resulting prominence of cerebral sulci and the ventricular system. Patchy and confluent hypoattenuation in the white matter of both hemispheres likely reflects sequela of chronic small vessel ischemia. Small chronic lacunar infarcts are seen in the bilateral basal ganglia. The calvarium is unremarkable. Thinning of the ocular lenses. Trace right mastoid effusion. The paranasal sinuses are well aerated. Procedure Note Kvng Bardales MD - 09/20/2023 For Patients: As a result of the Cures Act, medical imagingexams and procedure reports are released immediately into your electronicmedical record. You may view this report before your referring provider.If you have questions, please contact your health care provider. CLINICAL HISTORY: Acute neurological deficit. TECHNIQUE: Standard helical CT image acquisition through the head was performed. COMPARISON: None available. FINDINGS: There is no CT evidence of acute intracranial hemorrhage, extra-axialcollection, mass effect or midline shift. Epps-white matterdifferentiation is preserved. Mild generalized parenchymal volume losswith resulting prominence of cerebral sulci and the ventricular system.Patchy and confluent hypoattenuation in the white matter of bothhemispheres likely reflects sequela of chronic small vessel ischemia.Small chronic lacunar infarcts are seen in the bilateral basal ganglia.The calvarium is unremarkable. Thinning of the ocular lenses. Trace rightmastoid effusion. The paranasal sinuses are well aerated. IMPRESSION: 1. No CT evidence of acute intracranial abnormality. 2. Tiny chronic lacunar infarcts in the bilateral basal ganglia withsuperimposed findings likely reflecting sequela of chronic small vesselischemia. 3. Mild generalized parenchymal volume loss. Please note that all CT scans at this facility use dose modulation,iterative reconstruction, and/or weight-based dosing when appropriate toreduce radiation dose to as low as reasonably achievable. Dictated by Kvng Bardales MD @ 09/20/2023 6:47:34 PM (Electronically Signed) Alba Carmen [employer] CT * ECHO TTE LIMITED WO CONTRAST W COLOR W LTD DOPPLER (09/20/2023 5:03 PM CDT) AORTIC VALVE MEAN PG 4 mmHg EJECTION FRACTION 69 % PEAK TR VELOCITY 2.3 m/s LVEDD 4.1 cm Anatomical Region Laterality Modality Ultrasound, Othe r 09/20/2023 4:22 PM CDT Narrative 09/20/2023 5:20 PM CDT ECHOCARDIOGRAM MATHIEU PRINCE ? Accession#: ?? [id number] : ?1955 68 years Study Date: ?? 09/20/2023 4:22:06 PM Gender: F ?BP: ? 135/84 mmHg Height: 163.00 cm ?BSA: ?1.56 m? ? ? Weight: 53.00 kg ? Tech: ? MBW ? Referring MD: WERO TORRE Site: ? [facility] Reading Location: [facility] Patient Location: Inpatient. Procedure: Limited 2D , Color Doppler and Limited Spectral Doppler. Indication for study: Gram Positive Bacteremia Cardiac Rhythm: Normal sinus.Study quality: Good. Final Impressions: Limited Echocardiogram performed 1. Normal left ventricular size, severely increased wall thickness, normal global systolic function, calculated EF of 69 %. 2. The mitral valve is normal, trace mitral regurgitation. 3. No obvious vegetation seen, consider CLAUDE if clinically indicated. Chamber Sizes and Function Normal left ventricular size, severely increased wall thickness, normal global systolic function, calculated EF of 69 %. Valves, RV Pressures and Diastolic Function The aortic valve is trileaflet, no stenosis and trivial regurgitation. The mitral valve is normal in structure, trace mitral regurgitation. The mitral valve peak velocity is 1.12 m/s and the mean gradient is 1.7 mmHg. The tricuspid valve is normal in structure. Tricuspid regurgitation is mild. The tricuspid regurgitant velocity is 2.3 m/s, the estimated right ventricular systolic pressure is 21 mmHg plus right atrial pressure. There is normal estimated pulmonary pressure by tricuspid regurgitation velocity and right atrial pressure. The pulmonic valve is normal. Trace pulmonic regurgitation is present on color flow. Masses, Effusion, Shunts There is small pericardial effusion. MEASUREMENTS AND CALCULATIONS 2-D Measurements and LV Function: LVID (d) 4.1 cm Planimetered EF 69 % LVID (s) 2.7 cm LV FS% (2D) ? 35 % IVS (d) ??1.6 cm LVOT diameter ?? 2.2 cm LVPW (d) 1.2 cm HR ?65 bpm LA ? 4.0 cm RV Max 4C (d) ?? 3.3 cm Aortic Valve: Vmax ? 1.4 m/s ??BRANDY (V) ?? 2.60 cm? ? ? VTI ?0.29 m ?? BRANDY (I) ?? 2.44 cm? ? ? LVOT V max ? 1.0 m/s ??Max PG ?8 mmHg LVOT VTI ? 0.19 m ?? Mean PG ?? 4 mmHg SV ? 72 ml ?Dim Index 0.64 SV index ? 46 ml/m? ? ? CO ?4.7 l/min AV Ejection Time 0.30 sec CI ?3.0 l/min/m? ? ? AV Flow Rate ? 239 ml/s Mitral Valve: MV Mean G 2 mmHg MV VTI ?0.33 m Tricuspid Valve and estimated PA pressures: TR Vmax 2.3 m/s TAPSE 2.0 cm TR maxG 21 mmHg . This study was interpreted by an [facility] accredited facility. CC: Anne Esquivel. ??Final ?? Procedure Note Luis Ye MD - 09/20/2023 ECHOCARDIOGRAM MATHIEU PRINCE : 1955 68 years Study Date: 09/20/2023 4:22:06 PM Gender: F BP: 135/84 mmHg Height: 163.00 cm BSA: 1.56 m? ? ? Weight: 53.00 kg Tech: GONZALO Referring MD: WERO TORRE Site: [facility] Reading Location: [facility] Patient Location: Inpatient. Procedure: Limited 2D , Color Doppler and Limited Spectral Doppler. Indication for study: Gram Positive Bacteremia Cardiac Rhythm: Normal sinus.Study quality: Good. Final Impressions: Limited Echocardiogram performed 1. Normal left ventricular size, severely increased wall thickness,normal global systolic function, calculated EF of 69 %. 2. The mitral valve is normal, trace mitral regurgitation. 3. No obvious vegetation seen, consider CLAUDE if clinically indicated. Chamber Sizes and Function Normal left ventricular size, severely increased wall thickness, normalglobal systolic function, calculated EF of 69 %. Valves, RV Pressures and Diastolic Function The aortic valve is trileaflet, no stenosis and trivial regurgitation. Themitral valve is normal in structure, trace mitral regurgitation. Themitral valve peak velocity is 1.12 m/s and the mean gradient is 1.7 mmHg.The tricuspid valve is normal in structure. Tricuspid regurgitation ismild. The tricuspid regurgitant velocity is 2.3 m/s, the estimated rightventricular systolic pressure is 21 mmHg plus right atrial pressure. Thereis normal estimated pulmonary pressure by tricuspid regurgitation velocityand right atrial pressure. The pulmonic valve is normal. Trace pulmonicregurgitation is present on color flow. Masses, Effusion, Shunts There is small pericardial effusion. MEASUREMENTS AND CALCULATIONS 2-D Measurements and LV Function: LVID (d) 4.1 cm Planimetered EF 69 % LVID (s) 2.7 cm LV FS% (2D) 35 % IVS (d) 1.6 cm LVOT diameter 2.2 cm LVPW (d) 1.2 cm HR 65 bpm LA 4.0 cm RV Max 4C (d) 3.3 cm Aortic Valve: Vmax 1.4 m/s BRANDY (V) 2.60 cm? ? ? VTI 0.29 m BRANDY (I) 2.44 cm? ? ? LVOT V max 1.0 m/s Max PG 8 mmHg LVOT VTI 0.19 m Mean PG 4 mmHg SV 72 ml Dim Index 0.64 SV index 46 ml/m? ? ? CO 4.7 l/min AV Ejection Time 0.30 sec CI 3.0 l/min/m? ? ? AV Flow Rate 239 ml/s Mitral Valve: MV Mean G 2 mmHg MV VTI 0.33 m Tricuspid Valve and estimated PA pressures: TR Vmax 2.3 m/s TAPSE 2.0 cm TR maxG 21 mmHg . This study was interpreted by an [facility] accredited facility. CC: Anne Esquivel. Final Wero Ericazael Torre DO ECHO ORD * LIPID PANEL (09/20/2023 5:02 PM CDT) CHOLESTEROL,TOTAL 104 100 - 199 mg/dL 09/20/2023 9:07 PM T [facility] Comment: Cholesterol, Total Reference Ranges Desirable <200 mg/dL Borderline 200-239 mg/dL High >=240 mg/dL TRIGLYCERIDES 79 <150 mg/dL 09/20/2023 9:07 PM CDT [facility] HDL CHOLESTEROL 52 >40 mg/dL 9:07 PM T [facility] NON-HDL CHOLESTEROL 52 <145 mg/dl 09/20/2023 9:07 PM T [facility] CHOL/HDL RATIO 2.00 <4.50 09/20/2023 9:07 PM T [facility] LDL CHOLESTEROL 36 <=130 mg/dL 09/20/2023 9:07 PM T [facility] VLDL CHOLESTEROL 16 <=30 mg/dL 09/20/19 24 9:07 PM [facility] Blood BLOOD SPECIMEN / Unknown Butterfly / Unknown 09/20/2023 5:02 PM CDT 09/20/2023 5:05 PM CDT Alba Carmen NP CHEMISTRY [facility] [address] [place] [address] * ELECTROLYTE PANEL (09/20/2023 5:02 PM CDT) Only the most recent of3 resultswithin the time period is included. SODIUM 136 136 - 145 mmol/L 09/20/2023 5:30 PM CDT [facility] POTASSIUM 4.0 3.5 - 5.1 mmol/L 09/20/2023 5:30 PM T [facility] CHLORIDE 99 98 - 107 mmol/L 09/20/2023 5:30 PM T [facility] CO2,TOTAL 28 22 - 29 mmol/L 09/20/2023 5:30 PM T [facility] ANION GAP 9 5 - 18 09/20/2023 5:30 PM CDT [facility] Blood BLOOD SPECIMEN / Unknown Butterfly / Unknown 09/20/2023 5:02 PM CDT 09/20/2023 5:05 PM CDT Wero Ericazael Torre DO CHEMISTRY Performing Organization Address [facility]/ZIP Co de Phone Number [facility] [address] [place] [address] * SCAN-CARDIAC STRIP (09/20/2023 4:20 PM CDT) Scanner OTHER * BLOOD CULTURE (09/20/2023 3:25 PM CDT) Only the most recent of4 resultswithin the time period is included. Pathologist [facility] CULTURE No Growth. 09/25/2023 7:12 PM CDT [facility] Blood BLOOD SPECIMEN / Unknown Butterfly / Unknown 09/20/2023 3:25 PM CDT 09/20/2023 3:30 PM CDT Narrative [facility] - 09/25/2023 7:12 PM CDT Low volume blood culture received; possible false negative culture. Wero Torre DO MICROBIOLOGY Performing Organization Address [facility]/ZIP Co de Phone Number [facility] [address] [place] [address] * (ABNORMAL) RESPIRATORY PANEL MULTIPLEX PCR (09/20/2023 1:48 PM CDT) Adenovirus NOT Detected 09/20/2023 8:29 PM CDT [facility] Coronavirus 229E NOT Detected 09/20/2023 8:29 PM CDT [facility] Coronavirus HKU1 NOT Detected 09/20/2023 8:29 PM CDT [facility] Coronavirus NL63 NOT Detected 09/20/2023 8:29 PM CDT [facility] Coronavirus OC43 NOT Detected 09/20/2023 8:29 PM CDT [facility] Human Metapneumovirus NOT Detected 09/20/2023 8:29 PM CDT [facility] Human Rhinovirus/Enterovi shayne Detected(A) 09/20/2023 8:29 PM CDT [facility] Influenza A NOT Detected 09/20/2023 8:29 PM CDT [facility] Influenza B NOT Detected 09/20/2023 8:29 PM CDT [facility] Parainfluenza Virus 1 NOT Detected 09/20/2023 8:29 PM CDT [facility] Parainfluenza Virus 2 NOT Detected 09/20/2023 8:29 PM CDT [facility] Parainfluenza Virus 3 NOT Detected 09/20/2023 8:29 PM CDT [facility] Parainfluenza Virus 4 NOT Detected 09/20/2023 8:29 PM CDT [facility] Respiratory Syncytial Virus NOT Detected 09/20/2023 8:29 PM CDT [facility] SARS-Cov-2 NOT Detected 09/20/2023 8:29 PM CDT [facility] Bordetella pertussis NOT Detected 09/20/2023 8:29 PM CDT [facility] Bordetella Parapertussis NOT Detected 09/20/2023 8:29 PM CDT [facility] Chlamydophila pneumoniae NOT Detected 09/20/2023 8:29 PM CDT [facility] Mycoplasma pneumoniae NOT Detected 09/20/2023 8:29 PM CDT [facility] Nasopharyngeal NASOPHARYNGEAL SWAB / Unknown Non-Blood / Unknown 09/20/2023 1:48 PM CDT 09/20/2023 2:30 PM CDT [facility] - 09/20/2023 8:29 PM CDT All PCR tests are subject to false negative results due to variability in viral/bacterial load and collection technique. ??This test does NOT detect MERS ( Respiratory Syndrome) or SARS-1 (Severe Acute Respiratory Syndrome). Austin Broderick MD MICROBIO [facility] [address] [place] [address], [place] * MR SPINE LUMBAR WWO (09/20/2023 1:44 PM CDT) Anatomical Region Laterality Modality Spine, LUMBAR SPINE Magnetic Res onance 09/20/2023 3:38 PM CDT Narrative 09/20/2023 3:38 PM CDT For Patients: ??As a result of the Century Cures Act, medical imaging exams and procedure reports are released immediately into your electronic medical record. ??You may view this report before your referring provider. ??If you have questions, please contact your health care provider. Indication: Low back pain, infection suspected Technique: Multiplanar, multisequence, MRI of the lumbar spine, obtained without and with contrast. A total of 10 mL of Clariscan IV contrast was administered. Comparison: CT abdomen pelvis 09/19/2023 Findings: The normal lumbar lordosis is preserved. No significant spondylolisthesis. Vertebral body heights are maintained. No acute osseous abnormality. Incidental vertebral hemangioma within the T12 body. Modic type 2 opposing endplate changes at L4-5, Modic type 1 endplate changes at L5-S1. Otherwise, unremarkable bone marrow signal. Conus medullaris terminates at T12-L1. No suspicious findings identified in the paraspinal soft tissues. No pathologic postcontrast enhancement identified. Included SI joints are unremarkable. T12-L1, L1-L2: No neural foraminal or spinal canal stenosis. L2-L3: Mild diffuse disc bulge, mild facet arthropathy. No neural foraminal or spinal canal stenosis. L3-L4: Mild diffuse disc bulge, left posterior annular fissure mild facet arthropathy. No neural foraminal or spinal canal stenosis. L4-L5: Mild diffuse disc bulge, mild facet arthropathy. No neural foraminal stenosis. Right lateral recess stenosis with potential right L5 nerve root impingement. No central spinal canal stenosis. L5-S1: Mild diffuse right eccentric disc bulge, encroaching upon the exiting right L5 nerve root. Mild left/moderately severe right facet arthropathy. No left, mild right neural foraminal narrowing. Right lateral recess stenosis with potential descending right S1 nerve root impingement. No central spinal canal stenosis. Impression: 1. Normal spinal alignment. No acute osseous abnormality. No evidence of infectious process in the lumbar spine. 2. Lumbar spondylosis and Modic endplate changes as detailed. 3. At L4-L5, right lateral recess stenosis potentially impinging the descending right L5 nerve root. 4. At L5-S1, right eccentric disc-osteophyte complex encroaching upon the exiting/extraforaminal right L5 nerve root, and right lateral recess stenosis potentially impinging the descending right S1 nerve root. Dictated by Thania Sheehan MD @ 09/20/2023 3:38:35 PM (Electronically Signed) Procedure Note Thania Sheehan, - 09/20/2023 For Patients: As a result of the Cures Act, medical imagingexams and procedure reports are released immediately into your electronicmedical record. You may view this report before your referring provider.If you have questions, please contact your health care provider. Indication: Low back pain, infection suspected Technique: Multiplanar, multisequence, MRI of the lumbar spine, obtained without andwith contrast. A total of 10 mL of Clariscan IV contrast wasadministered. Comparison: CT abdomen pelvis 09/19/2023 Findings: The normal lumbar lordosis is preserved. No significant spondylolisthesis.Vertebral body heights are maintained. No acute osseous abnormality.Incidental vertebral hemangioma within the T12 body. Modic type 2 opposingendplate changes at L4-5, Modic type 1 endplate changes at L5-S1.Otherwise, unremarkable bone marrow signal. Conus medullaris terminates [id number]. No suspicious findings identified in the paraspinal soft tissues.No pathologic postcontrast enhancement identified. Included SI joints areunremarkable. T12-L1, L1-L2: No neural foraminal or spinal canal stenosis. L2-L3: Mild diffuse disc bulge, mild facet arthropathy. No neuralforaminal or spinal canal stenosis. L3-L4: Mild diffuse disc bulge, left posterior annular fissure mild facetarthropathy. No neural foraminal or spinal canal stenosis. L4-L5: Mild diffuse disc bulge, mild facet arthropathy. No neuralforaminal stenosis. Right lateral recess stenosis with potential right [id number] root impingement. No central spinal canal stenosis. L5-S1: Mild diffuse right eccentric disc bulge, encroaching upon theexiting right L5 nerve root. Mild left/moderately severe right facetarthropathy. No left, mild right neural foraminal narrowing. Right lateralrecess stenosis with potential descending right S1 nerve root impingement.No central spinal canal stenosis. Impression: 1. Normal spinal alignment. No acute osseous abnormality. No evidence ofinfectious process in the lumbar spine. 2. Lumbar spondylosis and Modic endplate changes as detailed. 3. At L4-L5, right lateral recess stenosis potentially impinging thedescending right L5 nerve root. 4. At L5-S1, right eccentric disc-osteophyte complex encroaching upon theexiting/extraforaminal right L5 nerve root, and right lateral recessstenosis potentially impinging the descending right S1 nerve root. Dictated by Thania Sheehan MD @ 09/20/2023 3:38:35 PM (Electronically Signed) Wero Torre DO MR * SCAN-CARDIAC STRIP (09/20/2023 12:16 PM CDT) Scanner OTHER * PROCALCITONIN (09/20/2023 11:15 AM CDT) Only the most recent of2 resultswithin the time period is included. PROCALCITONIN 0.17 ng/ml 09/20/2023 11:51 AM CDT [facility] Blood BLOOD SPECIMEN / Unknown Butterfly / Unknown 09/20/2023 11:15 AM CDT 09/20/2023 11:17 AM CDT Narrative [facility] - 09/20/2023 11:51 AM CDT Procalcitonin for initial assessment of Lower Respiratory Tract Infection: Results Interpretation <0.10 ng/mL Antibiotic therapy strongly discoraged. ??Indicates absent of bacterial infection. * 0.10 - 0.25 ng/mL Antibiotic therapy discouraged. ??Bacterial infection unlikely. * 0.26 - 0.50 ng/mL Antibiotic therapy encouraged. ??Bacterial infection possible. >0.50 ng/mL Antibiotic therapy strongly encouraged. ??Suggestive of presence of bacterial infection. *Antibiotic therapy should be considered regardless of PCT result if the patient is clinically unstable, is at high risk for adverse outcome, has strong evidence of bacterial pathogen, or the clinical context indicates antibiotic therapy is warranted. ??If antibiotics are withheld, reassess if symptoms persist/worsen and/or repeat PCT measurement within 6-24 hours. ? In order to assess treatment success and to support a decision to discontinue antibiotic therapy, follow up samples should be tested once every 1-2 days, based upon physician discretion taking into account patient's evolution and progress. Procalcitonin for initial assessment of severe sepsis risk: Results Interpretation <0.5 ng/ml A PCT level below 0.5 ng/ml on the first day of ICU admission is associated with a low risk for progression to severe sepsis and/or septic shock. > 2.0 ng/mL A PCT level above 2.0 ng/mL on the first day of ICU admission is associated with a high risk for progression to severe sepsis and/or septic shock. Note: Concentrations < 0.5 ng/mL do not exclude an infection, on account of localized infections (without systemic signs) which can be associated with such low concentrations, or a systemic infection in its initial stages(< 6 hours). Furthermore, increased procalcitonin can occur without infection. PCT concentrations between 0.5 and 2.0 ng/mL should be interpreted taking into account the patient's history. It is recommended to retest PCT within 6-24 hours if any concentrations < 2 ng/mL are obtained. Wero Torre DO [facility] [address] [place] [address] * (ABNORMAL) BLOOD GAS,VENOUS (09/20/2023 11:15 AM CDT) [facility] Signature PH, VENOUS 7.38 7.32 - 7.43 09/20/2023 11:21 AM CDT [facility] PCO2, VENOUS 48 41 - 51 mmHg 09/20/2023 11:21 AM CDT [facility] PO2, VENOUS 39 35 - 40 mmHg 09/20/2023 11:21 AM CDT [facility] HCO3,VENOUS 28 22 - 29 mmol/L 09/20/2023 11:21 AM T [facility] BASE EXCESS, VENOUS, POCT 2.5 -2.0 - 3.0 09/20/2023 11:21 AM CDT [facility] O2 SATURATION, VENOUS 69(L) 70 - 75 % 09/20/2023 11:21 AM T [facility] PATIENT TEMPERATURE 37.0 Degrees C 09/20/2023 11:21 AM CDT [facility] Blood BLOOD SPECIMEN / Unknown Butterfly / Unknown 09/20/2023 11:15 AM CDT 09/20/2023 11:17 AM CDT Wero Torre DO CHEMISTRY [facility] [address] [place] [address] * SCAN-CARDIAC STRIP (09/20/2023 8:09 AM CDT) Scanner OTHER * (ABNORMAL) HEMOGLOBIN A1C SCREENING (09/20/2023 5:58 AM CDT) HEMOGLOBIN A1C SCREENING 13.6(H) <=6.4 % 09/20/2023 8:08 AM CDT [facility] Blood BLOOD SPECIMEN / Unknown Venipuncture / Unknown 09/20/2023 5:58 AM CDT 09/20/2023 6:02 AM CDT Narrative [facility] - 09/20/2023 8:08 AM CDT ? (<5.7%) ?Normal ? (5.7% to 6.4%) ? Indicates prediabetes ? (>=6.5%) ? Confirms diabetes Falsely low levels may be seen with: Recent Transfusion, Recent Significant Blood Loss, Hemolytic Diseases, or Falsely elevated levels may be seen with: Untreated Anemias, Splenectomy Austin Broderick MD CHEMISTR Y Performing Organization Address [facility] Co de Phone Number [facility] [address] [place] [address] * (ABNORMAL) GLUCOSE, RANDOM (09/20/2023 5:58 AM CDT) Only the most recent of2 resultswithin the time period is included. Pathologist [facility] GLUCOSE,RANDOM 169(H) 70 - 139 mg/dL 09/20/2023 6:56 AM CDT [facility] Blood BLOOD SPECIMEN / Unknown Venipuncture / Unknown 09/20/2023 5:58 AM CDT 09/20/2023 6:03 AM CDT Austin Broderick MD CHEMISTR Y Performing Organization Address [facility] Co de Phone Number [facility] [address] [place] [address] * COVID-19 MOLECULAR (09/20/2023 2:17 AM CDT) [facility] COVID 19 [place] MOLECULAR Not detected Not detected 09/20/2023 3:11 AM CDT [facility] TESTING LABORATORY [facility] 09/20/2023 3:11 AM CDT [facility] Comment:Specimen submitted t o [facility] for testing. Other SPECIMEN FROM NASOPHARYNGEAL STRUCTURE / Unknown Non-Blood / Unknown 09/20/2023 2:17 AM CDT 09/20/2023 2:34 AM CDT Komal Barbour [employer] MICROBIOLOG Y Performing Organization Address [facility] Co de Phone Number [facility] [address] [place] [address] * SCAN-CARDIAC STRIP (09/19/2023 11:23 PM CDT) Scanner OTHER * CT ABDOMEN PELVIS W (09/19/2023 8:58 PM CDT) Anatomical Region Laterality Modality Abdomen, Pelvis, AORTA, LIVER, SPLEEN Computed Tomography 09/19/2023 9:27 PM CDT Impressions 09/19/2023 9:[address] changes compatible with chronic pancreatitis. Pancreatic duct stent in good position. No evidence for acute pancreatitis. 2. No biliary ductal dilatation. 3. Colonic constipation. 4. Multifocal pneumonia best appreciated at the lung bases. Please note that all CT scans at this facility use dose modulation, iterative reconstruction, and/or weight-based dosing when appropriate to reduce radiation dose to as low as reasonably achievable. Dictated by Shane May MD @ 09/19/2023 9:27:15 PM (Electronically Signed) Narrative 09/19/2023 9:27 PM CDT For Patients: ??As a result of the Century Cures Act, medical imaging exams and procedure reports are released immediately into your electronic medical record. ??You may view this report before your referring provider. ??If you have questions, please contact your health care provider. INDICATION: Chronic pancreatitis. TECHNIQUE: Contrast-enhanced abdominal pelvic CT. 100 cc nonionic Omnipaque 350 administered. COMPARISON: Correlation is made with a contrast-enhanced chest CT from the same date. Comparison is made with a prior abdominal pelvic CT November 22, 2022. FINDINGS: At the lung bases there are multifocal infiltrates including the right middle lobe and lingular left upper lobe as well as the right lower lobe greater than the left. Multifocal pneumonia is suspect. Please see the chest CT performed earlier on the same date. The liver is negative for masses or biliary ductal dilatation. There is no splenomegaly. There are numerous pancreatic calcifications compatible with chronic pancreatitis. There is a pancreatic duct stent extending from the region of the pancreatic neck to the duodenum which is new when compared November 22, 2022. The previous identified stones within the pancreatic duct are largely absent. No evidence for acute pancreatitis. Normal adrenal glands. The kidneys are unremarkable. Dense vascular calcification within a normal caliber abdominal aorta and iliac arteries. Normal inferior vena cava. The urinary bladder is unremarkable. Absent uterus and possibly the ovaries. Moderately large amount of colonic stool suggesting constipation. No fecal impaction or bowel obstruction. Degenerative disc disease at L4-L5. Small cavernous hemangioma T12. Procedure Note Shane May MD - 09/19/2023 For Patients: As a result of the Cures Act, medical imagingexams and procedure reports are released immediately into your electronicmedical record. You may view this report before your referring provider.If you have questions, please contact your health care provider. INDICATION: Chronic pancreatitis. TECHNIQUE: Contrast-enhanced abdominal pelvic CT. 100 cc nonionic Omnipaque 350 administered. COMPARISON: Correlation is made with a contrast-enhanced chest CT from the same date. Comparison is made with a prior abdominal pelvic CT November 22, 2022. FINDINGS: At the lung bases there are multifocal infiltrates including the rightmiddle lobe and lingular left upper lobe as well as the right lower lobegreater than the left. Multifocal pneumonia is suspect. Please see thechest CT performed earlier on the same date. The liver is negative for masses or biliary ductal dilatation. There is nosplenomegaly. There are numerous pancreatic calcifications compatible withchronic pancreatitis. There is a pancreatic duct stent extending from theregion of the pancreatic neck to the duodenum which is new when comparedAugus2022. The previous identified stones within the pancreatic ductare largely absent. No evidence for acute pancreatitis. Normal adrenalglands. The kidneys are unremarkable. Dense vascular calcification withina normal caliber abdominal aorta and iliac arteries. Normal inferior venacava. The urinary bladder is unremarkable. Absent uterus and possibly theovaries. Moderately large amount of colonic stool suggesting constipation. No fecalimpaction or bowel obstruction. Degenerative disc disease at L4-L5. Small cavernous hemangioma T12. IMPRESSION: 1. CT changes compatible with chronic pancreatitis. Pancreatic duct stentin good position. No evidence for acute pancreatitis. 2. No biliary ductal dilatation. 3. Colonic constipation. 4. Multifocal pneumonia best appreciated at the lung bases. Please note that all CT scans at this facility use dose modulation,iterative reconstruction, and/or weight-based dosing when appropriate toreduce radiation dose to as low as reasonably achievable. Dictated by Shane May MD @ 09/19/2023 9:27:15 PM (Electronically Signed) Komal Greenbergmartinezangelica [employer] CT * CT CHEST PE STUDY (09/19/2023 8:56 PM CDT) Anatomical Region Laterality Modality CHEST, THORAX, HEART Computed To mography 09/19/2023 9:11 PM CDT Impressions 09/19/2023 9:11 PM CDT 1. No pulmonary embolism. 2. Findings compatible with multilobar pneumonia. Recommend follow-up imaging after appropriate treatment to ensure resolution. Please note that all CT scans at this facility use dose modulation, iterative reconstruction, and/or weight-based dosing when appropriate to reduce radiation dose to as low as reasonably achievable. Dictated by Lew Olson MD @ 09/19/2023 9:11:19 PM (Electronically Signed) Narrative 09/19/2023 9:11 PM CDT For Patients: ??As a result of the [...] or significant findings. Bones: Unremarkable for age. Procedure Note Lew Olson MD - 09/19/2023 For Patients: As a result of the [...] and vasculature: Contrast opacification of the pulmonary arterialtree is adequate. No sign of pulmonary embolism. Heart size is normal.Thoracic aorta and pulmonary artery are normal in caliber. Mild coronaryartery and thoracic aorta atherosclerotic calcification. Lungs and pleura: Small areas of patchy dense consolidation in the lungbases with scattered areas of ground-glass as well as centrilobularnodules with surrounding ground-glass, greatest in the right lower lobe.Mild anterior subpleural fibrotic changes in the upper lobes. No pleuraleffusion or pneumothorax. Lymph nodes/mediastinum: No mediastinal, hilar, or axillary adenopathy. Chest wall: No masses. Upper abdomen: No acute or significant findings. Bones: Unremarkable for age. IMPRESSION: 1. No pulmonary embolism. 2. Findings compatible with multilobar pneumonia. Recommend follow-upimaging after appropriate treatment to ensure resolution. Please note that all CT scans at this facility use dose modulation,iterative reconstruction, and/or weight-based dosing when appropriate toreduce radiation dose to as low as reasonably achievable. Dictated by Lew Olson MD @ 09/19/2023 9:11:19 PM (Electronically Signed) Komal Barbour [employer] [facility] * (ABNORMAL) BLOOD CULTURE MULTIPLEX PCR (09/19/2023 8:32 PM CDT) Organism(s) Detected Staphylococcus Coagulase Negative(AA) No organism targets detected., Invalid 4 9:41 PM CDT [facility] Comment:Staphylococcus Coagu lase Negative are most often collection associated skin contaminants. Susceptibility testing will only be performed if subsequent blood cultures from the same collection period are positive for this organism. Resistance Gene(s) None detected None detected 4 9:41 PM CDT [facility] CTX-M (ESBL-resistance gene) N/A 4 9:41 PM CDT [facility] IMP (carbapenem-resistan ce gene) N/A NOT Detected, N/A 4 9:41 PM CDT [facility] KPC (carbapenem-resistan ce gene) N/A NOT Detected, N/A 4 9:41 PM CDT [facility] mcr-1 (colistin-resistance gene) N/A 4 9:41 PM CDT [facility] mecA/C (methicillin-resista nce gene) N/A 4 9:41 PM CDT [facility] mecA/C and MREJ (methicillin-resista nce gene) N/A 4 9:41 PM CDT [facility] NDM (carbapenem-resistan ce gene) N/A NOT Detected, N/A 4 9:41 PM CDT [facility] OXA-48 like (carbapenem-resistan ce gene) N/A NOT Detected, N/A 4 9:41 PM CDT [facility] van A/B (vancomycin-resistan ce genes) N/A 4 9:41 PM CDT [facility] VIM (carbapenem-resistan ce gene) N/A NOT Detected, N/A 4 9:41 PM CDT [facility] Enterococcus faecalis NOT Detected 4 9:41 PM CDT [facility] Enterococcus faecium NOT Detected 4 9:41 PM CDT [facility] Listeria monocytogenes NOT Detected 4 9:41 PM CDT [facility] Staphylococcus Detected 4 9:41 PM CDT [facility] Staphlococcus aureus NOT Detected 4 9:41 PM CDT [facility] Staphylococcus epidermidis NOT Detected 4 9:41 PM CDT [facility] Staphylococcus lugdunensis NOT Detected 4 9:41 PM CDT [facility] Streptococcus NOT Detected 4 9:41 PM CDT [facility] Streptococcus agalactiae (Group B) NOT Detected 4 9:41 PM CDT [facility] Streptococcus pneumoniae NOT Detected 4 9:41 PM CDT [facility] Streptococcus pyogenes (Group A) NOT Detected 4 9:41 PM CDT [facility] Acinetobacter calcoaceticus-olga fan complex NOT Detected 4 9:41 PM CDT [facility] Enterobacteriaceae NOT Detected 08/31 4 9:41 PM CDT [facility] Enterobacter cloacae complex NOT Detected 4 9:41 PM CDT [facility] Escherichia coli NOT Detected 4 9:41 PM CDT [facility] Klebsiella oxytoca NOT Detected 08/31 4 9:41 PM CDT [facility] Klebsiella pneumoniae group NOT Detected 4 9:41 PM CDT [facility] Proteus NOT Detected 4 9:41 PM CDT [facility] Serratia marcescens NOT Detected 4 9:41 PM CDT [facility] Haemophilus influenzae NOT Detected 4 9:41 PM CDT [facility] Neisseria meningitidis NOT Detected 4 9:41 PM CDT [facility] Pseudomonas aeruginosa NOT Detected 4 9:41 PM CDT [facility] Melodie albicans NOT Detected 4 9:41 PM CDT [facility] Melodie glabrata NOT Detected 4 9:41 PM CDT [facility] Melodie krusei NOT Detected 09/20/19 2 4 9:41 PM CDT [facility] Melodie parapsilosis NOT Detected 4 9:41 PM CDT [facility] Melodie tropicalis NOT Detected 08/31 4 9:41 PM CDT [facility] Bacteroides fragilis group NOT Detected 4 9:41 PM CDT [facility] Klebsiella aerogenes NOT Detected 4 9:41 PM CDT [facility] Salmonella NOT Detected 4 9:41 PM CDT [facility] Stenotrophomonas maltophilia NOT Detected 4 9:41 PM CDT [facility] Melodie auris NOT Detected 4 9:41 PM CDT [facility] Cryptococcus neoformans/gattii NOT Detected 4 9:41 PM CDT [facility] Blood BLOOD SPECIMEN / Unknown Butterfly / Unknown 09/19/2023 8:32 PM CDT 09/19/2023 8:36 PM CDT Komal Barbour [employer] MICROBIOLOG Y [facility] [address] * LACTATE VENOUS (09/19/2023 8:25 PM CDT) LACTATE,VENOUS 1.9 0.5 - 2.0 mmol/L 09/19/2023 9:02 PM CDT [facility] Blood BLOOD SPECIMEN / Unknown Butterfly / Unknown 09/19/2023 8:25 PM CDT 09/19/2023 8:35 PM CDT Komal Barbour NP CHEMISTRY [facility] [address] [place] [address] * BETA HYDROXYBUTYRATE IN HOUSE (09/19/2023 8:25 PM CDT) BETA HYDROXYBUTYRATE <0.6 <0.6 mmol/L 09/19/2023 8:37 PM CDT [facility] Blood BLOOD SPECIMEN / Unknown Butterfly / Unknown 09/19/2023 8:25 PM CDT 09/19/2023 8:35 PM CDT Komal Barbour [employer] SEND OUTS [facility] [address] [place] [address] * (ABNORMAL) URINALYSIS MICROSCOPIC (09/19/2023 7:38 PM CDT) RBC 0-2 0-2, None Seen /HPF 09/19/2023 8:05 PM CDT [facility] WBC 6-10(A) 0-2, 3-5, None Seen /HPF 09/19/2023 8:05 PM CDT [facility] BACTERIA Rare None Seen, Rare, Few Bacteria/ HPF 09/19/2023 8:05 PM CDT [facility] EPITHELIAL CELLS Few None Seen, Few Epi/HPF 09/19/2023 8:05 PM CDT [facility] WHITE CELL CLUMPS Present(A) (none) 09/19/2023 8:05 PM CDT [facility] Urine URINE SPECIMEN / Unknown Non-Blood / Unknown 09/19/2023 7:38 PM CDT 09/19/2023 7:42 PM CDT Komal Barbour NP URINE Performing Organization Address [facility]/ZIP Co de Phone Number [facility] [address] [place] [address] * URINE CULTURE (09/19/2023 7:38 PM CDT) CULTURE 10-50,000 CFU/mL of multiple organisms, probable contaminants 09/21/2023 2:21 PM CDT [facility] Urine URINE SPECIMEN / Unknown Non-Blood / Unknown 09/19/2023 7:38 PM CDT 09/19/2023 7:42 PM CDT Komal Barbour [employer] MICROBIOLOG Y [facility] [address] [place] [address], [place] * (ABNORMAL) UA W/ SEDIMENT EXAM REFLEXED PER CRITERIA (09/19/2023 7:38 PM CDT) COLOR Yellow Yellow Color 09/19/2023 7:45 PM T [facility] CLARITY Clear Clear Clarity 09/19/2023 7:45 PM T [facility] SPECIFIC GRAVITY,URINE 1.010 1.010, 1.015, 1.020, 1.025 09/19/2023 7:45 PM T [facility] PH,URINE 6.0 6.0, 7.0, 8.0, 5.5, 6.5, 7.5, 8.5 09/19/2023 7:45 PM [facility] UROBILINOGEN, QUALITATIVE Normal Normal EU/dl 09/19/2023 7:45 PM [facility] PROTEIN, URINE Trace(A) Negative mg/dL 09/19/2023 7:45 PM T [facility] GLUCOSE, URINE >=1000(A) Negative mg/dL 09/19/2023 7:45 PM [facility] KETONES,URINE Trace(A) Negative mg/dL 09/19/2023 7:45 PM [facility] BILIRUBIN,URI NE Negative Negative 09/19/2023 7:45 PM [facility] OCCULT BLOOD,URINE Negative Negative 09/19/2023 7:45 PM T [facility] NITRITE Negative Negative 09/19/2023 7:45 PM T [facility] LEUKOCYTE ESTERASE Negative Negative 09/19/2023 7:45 PM T [facility] Urine URINE SPECIMEN / Unknown Non-Blood / Unknown 09/19/2023 7:38 PM CDT 09/19/2023 7:42 PM CDT Komal Barbour [employer] URINE Performing Organization Address City/[facility]/ZIP Co de Phone Number [facility] [address] [place] [address] * XR CHEST 1 VIEW PORTABLE (09/19/2023 7:29 PM CDT) Anatomical Region Laterality Modality HEART, THORAX, CHEST Digital Rad iography 09/19/2023 7:50 PM CDT Impressions 09/19/2023 7:50 PM CDT Left lower lung opacities may be infectious. Follow-up to resolution is recommended. Dictated by Karyn Galindo MD @ 09/19/2023 7:50:47 PM (Electronically Signed) Narrative 09/19/2023 7:50 PM CDT For Patients: ??As a result of the Cures Act, medical imaging exams and procedure reports are released immediately into your electronic medical record. ??You may view this report before your referring provider. ??If you have questions, please contact your health care provider. INDICATION: Short of breath TECHNIQUE: 1 view chest radiograph COMPARISON: None. FINDINGS: Devices: None. Lung volumes are good. Clustered reticular opacities in the left lower lung. No pleural effusion. No pneumothorax. Heart size is normal. Procedure Note Karyn Galindo MD - 09/19/2023 For Patients: As a result of the Cures Act, medical imagingexams and procedure reports are released immediately into your electronicmedical record. You may view this report before your referring provider.If you have questions, please contact your health care provider. INDICATION: Short of breath TECHNIQUE: 1 view chest radiograph COMPARISON: None. FINDINGS: Devices: None. Lung volumes are good. Clustered reticular opacities in the left lowerlung. No pleural effusion. No pneumothorax. Heart size is normal. IMPRESSION: Left lower lung opacities may be infectious. Follow-up to resolution isrecommended. Dictated by Karyn Galindo MD @ 09/19/2023 7:50:47 PM (Electronically Signed) Komal Barbour [employer] [facility] * (ABNORMAL) CBC WITH AUTO DIFFERENTIAL (09/19/2023 7:17 PM CDT) WHITE BLOOD COUNT 16.8(H) 4.5 - 11.0 thou/cu mm 09/19/2023 7:27 PM [facility] RED BLOOD COUNT 4.18 4.00 - 5.20 mil/cu mm 09/19/2023 7:27 PM [facility] HEMOGLOBIN 13.5 12.0 - 16.0 g/dL 09/19/2023 7:27 PM [facility] HEMATOCRIT 39.3 33.0 - 51.0 % 09/19/2023 7:27 PM [facility] MCV 94 80 - 100 fL 09/19/2023 7:27 PM [facility] MCH 32.3 26.0 - 34.0 pg 09/19/2023 7:27 PM [facility] MCHC 34.4 32.0 - 36.0 g/dL 09/19/2023 7:27 PM [facility] RDW 11.8 11.5 - 15.5 % 09/19/2023 7:27 PM [facility] PLATELET COUNT 296 140 - 440 thou/cu mm 09/19/2023 7:27 PM [facility] MPV 10.3 6.5 - 11.0 fL 09/19/2023 7:27 PM [facility] % NEUT 88.1 % 09/19/2023 7:27 PM [facility] % LYMPH 6.3 % 09/19/2023 7:27 PM [facility] % MONO 5.3 % 09/19/2023 7:27 PM [facility] % EOS 0.2 % 09/19/2023 7:27 PM [facility] % BASO 0.1 % 09/19/2023 7:27 PM [facility] ABSOLUTE NEUTROPHILS 14.8(H) 1.7 - 7.0 thou/cu mm 09/19/2023 7:27 PM [facility] ABSOLUTE LYMPHOCYTES 1.1 0.9 - 2.9 thou/cu mm 09/19/2023 7:27 PM [facility] ABSOLUTE MONOCYTES 0.9(H) <0.9 thou/cu mm 09/19/2023 7:27 PM CDT [facility] ABSOLUTE EOSINOPHILS 0.0 <0.5 thou/cu mm 09/19/2023 7:27 PM CDT [facility] ABSOLUTE BASOPHILS 0.0 <0.3 thou/cu mm 09/19/2023 7:27 PM CDT [facility] Blood BLOOD SPECIMEN / Unknown Venipuncture / Unknown 09/19/2023 7:17 PM CDT 09/19/2023 7:20 PM CDT Komal Barbour NP HEMATOLOGY [facility] [address] [place] [address] * TRIGLYCERIDES (09/19/2023 7:17 PM CDT) TRIGLYCERIDES 111 <150 mg/dL 09/19/2023 10:56 PM CDT [facility] PROVIDER ORDERED STATUS RANDOM 09/19/2023 10:56 PM CDT [facility] Blood BLOOD SPECIMEN / Unknown Venipuncture / Unknown 09/19/2023 7:17 PM CDT 09/19/2023 7:20 PM CDT Austin Broderick MD CHEMISTR Y [facility] [address] [place] [address] * (ABNORMAL) PROTIME-INR (09/19/2023 7:17 PM CDT) INR 1.1 <1.3 09/19/2023 7:26 PM CDT [facility] PROTIME 12.4(H) 10.3 - 12.3 sec 09/19/2023 7:26 PM CDT [facility] Blood BLOOD SPECIMEN / Unknown Venipuncture / Unknown 09/19/2023 7:17 PM CDT 09/19/2023 7:20 PM CDT [facility] - 09/19/2023 7:26 PM CDT ?Therapeutic Range 2.0-3.0 for most anticoagulated patients 2.5-3.5 or 4.0 for high risk patients The INR is only used for patients on stable oral anticoagulant therapy. It makes no significant contribution to the diagnosis or treatment of patients whose Protime is prolonged for other reasons. INR results are increased when heparin levels exceed 1.0 U/mL, which corresponds to an aPTT >125 seconds if the patient is on UFH. Komal Barbour NP HEMATOLOGY [facility] [address] [place] [address] * (ABNORMAL) PRO-BNP (09/19/2023 7:17 PM CDT) PRO-BNP 261(H) <125 pg/mL 09/19/2023 7:54 PM CDT [facility] Blood BLOOD SPECIMEN / Unknown Venipuncture / Unknown 09/19/2023 7:17 PM CDT 09/19/2023 7:20 PM CDT [facility] - 09/19/2023 7:54 PM CDT The following cut-points have been suggested for the use of proBNP for the diagnostic evaluation of heart failure (HF) in patient with acute dyspnea. Patients with eGFR >= 60 Diagnosis (rule in CHF) ? <50 Years Old ?450 pg/mL 50 - 75 Years Old ?900 pg/mL >75 Years Old ? 1800 pg/mL Exclusion (rule out CHF) Age Independent ?300 pg/mL A cutoff of 1200 pg/mL for patients with an eGFR <60 yields a diagnostic sensitivity of 89% and specificity of 72% for acute congestive heart failure. ? Komal Barbour [employer] SEND OUTS Performing Organization Address [facility] Co de Phone Number [facility] [address] [place] [address] * (ABNORMAL) LIPASE (09/19/2023 7:17 PM CDT) [facility] LIPASE 5.4(L) 13.0 - 60.0 IU/L 09/19/2023 8:25 PM CDT [facility] Blood BLOOD SPECIMEN / Unknown Venipuncture / Unknown 09/19/2023 7:17 PM CDT 09/19/2023 7:20 PM CDT Komal Barbour NP CHEMISTRY Performing Organization Address [facility] Co de Phone Number [facility] [address], [place] [id number] * (ABNORMAL) COMP METABOLIC PANEL (09/19/2023 7:17 PM CDT) Pathologist [facility] SODIUM 128(L) 136 - 145 mmol/L 09/19/2023 7:55 PM CDT [facility] POTASSIUM 3.9 3.5 - 5.1 mmol/L 09/19/2023 7:55 PM T [facility] CHLORIDE 90(L) 98 - 107 mmol/L 09/19/2023 7:55 PM T [facility] CO2,TOTAL 23 22 - 29 mmol/L 09/19/2023 7:55 PM T [facility] ANION GAP 15 5 - 18 09/19/2023 7:55 PM [facility] GLUCOSE 690(HH) 70 - 99 mg/dL 09/19/2023 7:55 PM [facility] CALCIUM 9.1 8.8 - 10.2 mg/dL 09/19/2023 7:55 PM [facility] BUN 10 8 - 23 mg/dL 09/19/2023 7:55 PM [facility] CREATININE 0.85 0.50 - 0.90 mg/dL 09/19/2023 7:55 PM [facility] BUN/CREAT RATIO 12 10 - 20 7:55 PM [facility] eGFR 74(L) >90 mL/min/1.7 3m2 09/19/2023 7:55 PM [facility] Comment:As of 2021, eG FR is calculated by the CKD-EPI creatinine equation without race adjustment. ??eGFR can be influenced by muscle mass, exercise, and diet. ??The reported eGFR is an estimation only and is only applicable if the renal function is stable. ALBUMIN 3.9(L) 4.0 - 4.9 g/dL 09/19/2023 7:55 PM [facility] PROTEIN,TOTAL 6.9 6.0 - 8.0 g/dL 09/19/2023 7:55 PM [facility] BILIRUBIN,TOTAL 0.5 0.0 - 1.2 mg/dL 09/19/2023 7:55 PM [facility] ALK PHOSPHATASE 112(H) 35 - 104 IU/L 09/19/2023 7:55 PM [facility] ALT (SGPT) 13 10 - 35 IU/L 09/19/2023 7:55 PM [facility] AST (SGOT) 15 10 - 35 IU/L 09/19/2023 7:55 PM [facility] Blood BLOOD SPECIMEN / Unknown Venipuncture / Unknown 09/19/2023 7:17 PM CDT 09/19/2023 7:20 PM T Komal Barbour NP CHEMISTRY [facility] [address] [place] [address] from Last 3 Months Advance Directives Documents on File Type Date Recorded Patient Director Case Management Expl anation Healthcare Directive 11/23/2022 023 * Full Code (Latest Code Status on File) Date Activated Date Inactivated Comments 09/20/2023 7:08 AM 09/22/2023 3:30 PM Question Answer Comments Code Status Discussion: Reviewed Preferences * Full Code Date Activated Date Inactivated Comments 09/19/2023 11:08 PM 09/20/2023 7:08 AM Question Answer Comments Code Status Discussion: Unable to Assess Preferences, Provider to review later * Full Code Date Activated Date Inactivated Comments 01/06/2023 7:04 PM 01/08/2023 12:46 PM Question Answer Comments Code Status Discussion: Reviewed Preferences * Full Code Date Activated Date Inactivated Comments 11/22/2022 10:09 PM 11/24/2022 2:55 PM Question Answer Comments Code Status Discussion: Reviewed Preferences Care Teams Tip Stitcher Relationship Specialty Start Date End Date Anne Esquivel NP [address] [place] [id number] PCP - General Emergency Medicine 11/23/22
--- OUTSIDE RECORDS SUMMARY | 2023-12-14 17:26 | XMS_ITS | Encounter Summary ---
Author Organization [facility] Address [address] [place] [address] Care Team Providers Care Safety Admin Assistant Name Role Phone Elsewhere, Pcp Primary Care Provider Unavailabl e Reason for Referral * MRI/CAT/PET Scan (Routine) - Closed Specialty Diagnoses / Procedures Referred By Olivia gonzalez Referred To Contact Radiology Diagnoses Multiple Sclerosis (HCC) Procedures MR Brain Multiple Sclerosis Without and With IV Contrast MR Brain without and with IV Contrast Lizzy Carrington M.D. [address] [place] [address] [facility] Referral ID Status Reason Start Date Expiration Date Visits Re quested Visits Authorized [id number] Closed 10/09/2023 10/08/2024 1 1 Reason for Visit * MRI/CAT/PET Scan (Routine) - Closed Specialty Diagnoses / Procedures Referred By Olivia gonzalez Referred To Contact Radiology Diagnoses Multiple Sclerosis (HCC) Procedures MR Brain Multiple Sclerosis Without and With IV Contrast MR Brain without and with IV Contrast Lizzy Carrington M.D. [address] [place] [address] [facility] Referral ID Status Reason Start Date Expiration Date Visits Re quested Visits Authorized [id number] Closed 10/09/2023 10/08/2024 1 1 Encounter Details Date Type Department Care Team (Latest Contact Info) Description 11/01/2023 9:05 AM CDT - 11/01/2023 11:59 PM CDT Hospital Encounter Department of Radiology, [facility] in [place], [place] [address] [place] [address] Lizzy Carrington M.D. [address] [place] [address] Multiple Sclerosis (HCC) Discharge Disposition: Home or [...] living situation today? I have a [facility] place to live 01/01/2023 Sex and [...] as needed for pain. For 30 days. [id number]-C (MoviPrep) 100-7.5-2.691 gram kitIndications:Loss Weight,Pain Abdominal Chronic Drink 1st portion of prep at 6 PM the evening before. 2nd portion must be started 3 hours before and finished 2 hours prior to report time 1 kit 09/20/2023 QUEtiapine (SEROquel) 100 mg tablet Take 100 [...] not exceed 200 mg in 24 hours. documented as of this encounter Plan of Treatment Upcoming Encounters Date Type Department Care Team (Latest Contact Info) Description 12/30/2023 9:45 AM CDT Clinical Communication Virtual Review in [place], [place] [address] [place] [address] 12/31/2023 9:30 AM CDT Comprehensive Visit Division of Pain Medicine in [place], [place] [address] [place] [address] PeruLincoln garza APRN, C.N.P., M.S.N. [address] [place] [phone] 12/31/2023 12:45 PM CDT Appointment Division of Gastroenterology in [address] [phone] Jose Roberto Patterson M.D. [address] [place] [phone] 01/02/2024 11:00 AM CDT Virtual Visit Division of Gastroenterology in [place], [place] [address] [place] [phone] Jose Roberto Patterson M.D. [address] [place] [phone] 02/10/2024 8:00 AM NURSE PRACTITIONER ADULT Appointment Department of Radiology, [facility], in [address] [phone] Malika Marc M.D. [address] [place] [phone] documented as of this encounter Procedures Procedure Name Priority Date/Time Associated Diagnosis Comments MR BRAIN MULTIPLE SCLEROSIS WITHOUT AND WITH IV CONTRAST RAD - Routine (most inpatients and all outpatients) 11/01/2023 10:38 AM CDT Multiple Sclerosis (HCC) documented in this encounter Results * MR Brain Multiple Sclerosis Without [...] diffusion orabnormal enhancement to suggest active disease. Lizzy SOMMERS MRI PROCEDURES documented in this encounter Visit Diagnoses Diagnosis Multiple Sclerosis (HCC) documented in this encounter Administered Medications Inactive Administered Medications - up to 3 most recent administrations Medication Order MAR Action Action Date Dose Rate Site gadobutrol injection 0.01-30 mL (Gadavist) 0.01-30 mL, intravenous, Once in imaging, contrast, Starting on Sat11/01/23 at 0916, For 1 dose, Imaging Protocol Orders, Dose per Radiant Medication Guidelines Intrathecal doses greater than 0.25 mL not recommended. Given 11/01/2023 10:31 AM CDT 6 mL documented in this encounter Additional Health Concerns Assessment Noted Time PHQ-9 Depression Total Score: 21 012 10:33 AM NURSE PRACTITIONER ADULT documented as of this encounter Care Teams Safety Admin Assistant Relationship Specialty Start Date End Date Elsewhere, Pcp PCP - General Internal Medicine 06/26/22 documented as of this encounter
--- OUTSIDE RECORDS SUMMARY | 2023-12-14 17:26 | XMS_ITS | Encounter Summary ---
Author Organization [facility] Address [address] [place] [address] Care Team Providers Care Front End Specialist Name Role Phone Elsewhere, Pcp Primary Care Provider Unavailabl e Encounter Details Date Type Department Care Team (Latest Contact Info) Description 10/14/2023 Clinical Communication Department of Ophthalmology in [place], [place] [address] [place] [address] Provider, Unknown Social History Tobacco Use Types Packs/Day Years [...] your living situation today? I have a [facility] place to live 01/01/2023 Sex and Gender Information Value Date Recorded Sex Assigned at Female 01/01/2023 9:08 AM CDT Gender Identity Female 01/01/2023 9:08 AM CDT Sexual Orientation Straight 01/01/2023 9: 08 AM CDT documented as of this encounter Plan of Treatment Upcoming Encounters Date Type Department Care Team (Latest Contact Info) Description 12/30/2023 9:45 AM CDT Clinical Communication Virtual Review in [place], [place] 200 [place] [address] 12/31/2023 9:30 AM CDT Comprehensive Visit Division of Pain Medicine in [place], [place] [address] [place] [phone] Lincoln Abdi, ATUL, C.N.P., M.S.N. [address] [place] [phone] 12/31/2023 12:45 PM CDT Appointment Division of Gastroenterology in [place], [place] [address] [place] [phone] Jose Roberto Patterson M.D. [address] [place] [phone] 01/02/2024 11:00 AM CDT Virtual Visit Division of Gastroenterology in [place], [place] [address] [place] [address] Jose Roberto Patterson M.D. [address] [place] [phone] 02/10/2024 8:00 AM ONLINE EDUCATION MANAGER Appointment Department of Radiology, [facility], in [place], [place] [address] [place] [address] Malika Marc M.D. [address] [place] [phone] documented as of this encounter Visit Diagnoses Not on filedocumented in this encounter Additional Health Concerns Assessment Noted Time PHQ-9 Depression Total Score: 21 012 10:33 AM ONLINE EDUCATION MANAGER documented as of this encounter Care Teams Front End Specialist Relationship Specialty Start Date End Date Elsewhere, Pcp PCP - General Internal Medicine 06/26/22 documented as of this encounter
--- OUTSIDE RECORDS SUMMARY | 2023-12-14 17:26 | XMS_ITS | Clinical Summary ---
Author Organization [facility] [facility] Address [address], [place] [address] Care Team Providers Care Sql Database Programmer Name Role Phone Lew Grewal MD Primary Care Provider [phone] Source Comments You are receiving this document as you are listed as the primary care provider,follow-up provider, or the patient has been referred to you for consultation.This is in compliance with the Medicare and[facility] Cent[facility] EHR Incentive Program,which states Providers who transition their patient to another setting of careor provider of care or refers their patient to another provider of care shouldprovide summary care record for each transition of care or referral. [place] Allergies Active Allergy Reactions Criticality Noted Date [...] 01/12/2019 Acute pancreatitis 09/22/2014 Relapsing pancreatitis 08/29/2014 Overview (01/12/2019): Pancreatitis Chronic Recurrent Essential hematuria 01/18/2010 Diabetes mellitus, type 2 01/12/2008 GERD (gastroesophageal reflux disease) 8 Benign essential hypertension 12/24/2006 Overview (01/12/2019): Benign Essential Hypertension Essential hypertension, benign Bipolar disorder 09/18/2005 Overview (12/30/2014): Epic Multiple sclerosis 09/06/2005 Abnormality of gait [...] Additional history exists COVID-19 Vaccine ( - 2023- season) 2023 Influenza (#1) 2023 02/17/2016, 12/30, 02/11/2014, Additional history exists RSV (1 - 1-dose 75+ series) 2029 Hep C Screening (Preventive Services) Completed 01/12/2019 [...] Reflex In-House (01/12/2019 2:27 PM CDT) Pathologist [facility] Hepatitis C Antibody Negative (Non Reactive) Negative (Non Reactive) 01/12/2019 7:42 PM CDT [facility] Comment:Antibodies to HCV no t detected. Does not exclude the possiblity of exposure to HCV. Blood Venipuncture / Unknown 01/12/2019 2:27 PM CDT 01/12/2019 2:27 PM CDT Kenrick Juarez MD LAB_1 [facility] [address] * BASIC METABOLIC PANEL (10/19/2010 2:58 PM CDT) Pathologist [facility] BUN 14 7 - 20 mg/dl [facility] Sodium 140 135 - 145 mmol/L [facility] Potassium 4.5 3.5 - 5.3 mmol/L [facility] Chloride 101 95 - 106 mmol/L [facility] CO2 27 22 - 30 mmol/L [facility] Glucose 151 70 - 180 mg/dl [facility] Creatinine 0.76 0.52 - 1.04 mg/dl [facility] GFR, Estimated >60.0 >60 ml/min/1.7 3m2 [facility] GFR, Est., If Black >60.0 >60 ml/min/1.7 3m2 [facility] Calcium 9.8 8.4 - 10.2 mg/dl [facility] Anion Gap (calc.) 12 7 - 16 mmol/L [facility] 10/19/2010 2:58 PM CDT 10/19/2010 3:04 PM CDT Marcello Monterroso MD LAB_1 Performing Organization Address [facility] de Phone Number [facility] [address] [phone] * (ABNORMAL) HGB A1C (10/19/2010 2:58 PM CDT) Hgb A1c 8.9(H) 4.3 - 6.1 % [facility] Comment: The usual A1C goal for people with diabetes, age 18-75, is < 7.0%. Physicians may recommend a higher or lower goal for specific individuals. 10/19/2010 2:58 PM CDT 10/19/2010 3:04 PM CDT Marcello Monterroso MD LAB_1 Performing Organization Address [facility] de Phone Number [facility] [address] [phone] * MAMMOGRAM BILATERAL DIAGNOSTIC (11/05/2003 3:06 PM [...] BREAST MASS RT BREAST, ??PREV DONE AT [facility], Julius Tanner MD RAD MAMMO/RH from Last 3 Months or Most Recently Relevant to Health Maintenance Care Teams Sql Database Programmer Relationship Specialty Start Date End Date Lew Grewal MD [address] [place], [place] [address]CHRISTINA GRIFFIN [address] PCP - General Family Practice 12/10/18
--- OUTSIDE RECORDS SUMMARY | 2023-12-14 17:26 | XMS_ITS | Encounter Summary ---
Author Organization [facility] Address [address] [place] [address] Care Team Providers Care Plastic Top Assembler Name Role Phone Elsewhere, Pcp Primary Care Provider Unavailabl e Reason for Visit * Outpatient (Routine) - Closed Specialty Diagnoses / Procedures Referred By Olivia gonzalez Referred To Contact Vascular Medicine Diagnoses Loss Weight Pain Abdominal Chronic Procedures Vascular Medicine - Thrombophilia periprocedural eConsult Bill So M.D. [address] [place] [phone] [facility] Referral ID Status Reason Start Date Expiration Date Visits Re quested Visits Authorized [id number] Closed 09/24/2023 09/23/2024 1 1 Encounter Details Date Type Department Care Team (Latest Contact Info) Description 09/25/2023 8:00 AM CDT Internal E-Consult Department of Vascular Medicine in [place], [place] [address] [place] [phone] Adeola Noonan P.A.-C. [address] [place] [phone] Loss Weight; Pain Abdominal Chronic Social History Tobacco Use Types Packs/Day Years [...] your living situation today? I have a [facility] place to live 01/01/2023 Sex and Gender Information Value Date Recorded Sex Assigned at Female 01/01/2023 9:08 AM CDT Gender Identity Female 01/01/2023 9:08 AM CDT Sexual Orientation Straight 01/01/2023 9: 08 AM CDT documented as of this encounter Consult Notes * Adeola Noonan P.A.-C. - 09/25/2023 8:00 AM CDT VASCULAR MEDICINE PERIPROCEDURAL E-CONSULT NOTE Referring Provider: Bill So M.D. Reason for Consult: Patient with history of DVT and prior use of apixaban > 6 months ago; recently resumed apixaban 5 mg BID due to stroke like symptoms w/ CTA of Head/neck; provide periproceduralanticoag instructions for ERCP/colonoscopy SUBJECTIVE The patient has been neither seen nor examined; this consultation is based entirely upon information available in the [facility] electronic medical record. Clinical question to be answered: Patient with history of DVT and prior use of apixaban > 6 months ago; recently resumed apixaban 5 mg BID due to stroke like symptoms w/ CTA of Head/neck; provide periprocedural anticoag instructions for ERCP/colonoscopy Chief Complaint / Reason for Visit A consult was placed regarding Yary Prince, a 68 y.o. female for periprocedural recommendations of anticoagulation management. She is going to have a ERCP on 10/14/2023 and colonoscopy on 10/15/2023. Current antithrombotic(s): Apixaban (Eliquis) 5 mg bid Reason(s) for Anticoagulation: Other: TIA reported 09/18 with right-sided weakness History of TIA/Stroke/Arterial Embolism: yes History of major bleeding: no Her past medical history is relevant for hospital admission elsewhere 09/19/2023 for multifocal pneumonia, report of TIA with right-sided weakness 09/20/2023, CT angio head and neck negative for any ICA stenosis, CT head with no evidence of acute stroke and showing tiny chronic lacunar infarcts andsequela of chronic small-vessel ischemia. DVT 01/06/2023 left axillary vein, unknown if provoked or not. Diabetes type 2, neuropathy, chronic pancreatitis with pancreatic stones status post pancreatic lithotripsy 02/19/2023, 05/02/2023 and 07/08/2023, hypertension, hyperlipidemia, chronic diverticulosis, tobacco use, dyspnea on exertion, CAD, MS, migraines, bipolar disorder, weight loss reportedly 70 lb in the last year, recent positive Cologuard test. OBJECTIVE The patient has been neither seen nor examined. DIAGNOSTICS I have reviewed pertinent laboratory and imaging studies. Labs and images studies of note include: 09/19/2023 platelet 296, ALT 13, AST 15 and alkaline phosphatase 112. 09/22/2023 WBC 10.9, hemoglobin 13.3, creatinine 0.70. ASSESSMENT / PLAN #1 Loss Weight #2 Pain Abdominal Chronic Ms. Prince is a 68 y.o. female who will have a ERCP on 10/14/2023 and colonoscopy on 10/15/2023. In preparation for the procedure she should follow the recommendations provided below. It is the responsibility of the referring provider or their team to communicate and implement the outlined plan sincethere was no interaction with the patient from this econsult. 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 She has not had workup for AFib, or head CLAUDE to look for PFO or any other possible cause for her symptoms. It is not recommended that anticoagulation be interrupted within 3 months of stroke/TIA. She should see Neurology and possibly Cardiology for further workup of cause prior tointerrupting her anticoagulation. I suggest postponing her ERCP/colonoscopy until after the workup is completed, unless it needs to be urgently done for other clinical reasons. If it should be done urgently, then I recommend an in-person consult for periprocedural bridging with enoxaparin prior to the procedures. If she is cleared by Neurology and/or Cardiology to go ahead with the procedure, then I recommend the following plan: Recommendations: Before the procedure: 1. Stop Apixaban prior to the procedure (3 full days off Anticoagulation). After the procedure: 2. Restart the direct oral anticoagulant 48-72 hours after the procedure, when clinically safe. Note that the oral anticoagulants have a short onset of action and will be therapeutic within 1 hour ofadministration. The patient was not personally interviewed or examined. The history and examination findings are based on the clinical documentation provided and/or discussed with a physician or provider who had personally interviewed and examined the patient. Time spent: Five minutes or more of medical review. Ask Wayne Expert periprocedural anticoagulation calculator [email or web address]/[email or web address] documented in this encounter Plan of Treatment Upcoming Encounters Date Type Department Care Team (Latest Contact Info) Description 12/30/2023 9:45 AM CDT Clinical Communication Virtual Review in [place], [place] [address] [place] [phone] 12/31/2023 9:30 AM CDT Comprehensive Visit Division of Pain Medicine in [place], [place] [address] [place] [phone] Lincoln Abdi, ATUL, C.N.P., M.S.N. [address] [place] [phone] 12/31/2023 12:45 PM CDT Appointment Division of Gastroenterology in [address] [phone] Jose Roberto Patterson M.D. [address] [place] [phone] 01/02/2024 11:00 AM CDT Virtual Visit Division of Gastroenterology in [place], [place] [address] [place] [phone] Jose Roberto Patterson M.D. [address] [place] [phone] 02/10/2024 8:00 AM PROFESSIONAL SECURITY OFFICER Appointment Department of Radiology, [facility], in [address] [phone] Malika Marc M.D. [address] [place] [phone] documented as of this encounter Visit Diagnoses Diagnosis Loss Weight Pain Abdominal Chronic documented in this encounter Additional Health Concerns Assessment Noted Time PHQ-9 Depression Total Score: 21 05/31/ 012 10:33 AM PROFESSIONAL SECURITY OFFICER documented as of this encounter Care Teams Plastic Top Assembler Relationship Specialty Start Date End Date Elsewhere, Pcp PCP - General Internal Medicine 06/26/22 documented as of this encounter
--- OUTSIDE RECORDS SUMMARY | 2023-12-14 17:26 | XMS_ITS | Encounter Summary ---
Author Organization [facility] Address [address] [place] [id number] Care Team Providers Care Retirement Assistant Name Role Phone Elsewhere, Pcp Primary Care Provider Unavailabl e Reason for Referral * Outpatient (Routine) - Closed Specialty Diagnoses / Procedures Referred By Contac t Referred To Contact Vascular Medicine Diagnoses Loss Weight Pain Abdominal Chronic Arturo Camacho M.B.B.S., M.S. [address] [place] [phone] [facility] Referral ID Status Reason Start Date Expiration Date Visits Re quested Visits Authorized [id number] Closed 10/04/2023 04/04/2025 1 1 * Outpatient (Routine) - Closed Specialty Diagnoses / Procedures Referred By Contac t Referred To Contact Vascular Medicine Diagnoses Loss Weight Pain Abdominal Chronic Procedures Vascular Medicine - Thrombophilia periprocedural eConsult Bill So M.D. [address] [place] [phone] [facility] Referral ID Status Reason Start Date Expiration Date Visits Re quested Visits Authorized [id number] Closed 09/24/2023 09/23/2024 1 1 * Outpatient (Routine) - Authorized Specialty Diagnoses / Procedures Referred By Olivia gonzalez Referred To Contact Diagnoses Loss Weight Pain Abdominal Chronic Procedures Colonoscopy Jose Roberto Patterson M.D. [address] [place] [address] [facility] Referral ID Status Reason Start Date Expiration Date V isits Requested Visits Authorized [id number] Authorized 09/20/2023 09/19/2024 1 1 Reason for Visit * Reason Onset Date Comments Order Request 09/20/2023 Encounter Details Date Type Department Care Team (Latest Contact Info) Description 09/20/2023 Clinical Communication Division of Gastroenterology in [place], [place] [address] [place] [phone] Jose Roberto Patterson M.D. [address] [place] [phone] Order Request Social History Tobacco Use Types Packs/Day [...] AM CDT Clinical Communication Virtual Review in [place], [place] [address] [place] [phone] 12/31/2023 9:30 AM CDT Comprehensive Visit Division of Pain Medicine in [place], [place] [address] [place] [phone] Lincoln Abdi, ATUL, C.N.P., M.S.N. [address] [place] [phone] 12/31/2023 12:45 PM CDT Appointment Division of Gastroenterology in [place], [place] [address] [place] [phone] Jose Roberto Patterson M.D. [address] [place] [phone] 01/02/2024 11:00 AM CDT Virtual Visit Division of Gastroenterology in [place], [place] [address] [place] [phone] Jose Roberto Patterson M.D. [address] [place] [phone] 02/10/2024 8:00 AM OCCUPATIONAL THERAPIST REHAB MANAGER Appointment Department of Radiology, [facility], in [place], [place] [address] [place] [phone] Malika Marc M.D. [address] [place] [phone] Scheduled Orders Name Type Priority Associated Diagnoses Orde r Schedule Colonoscopy GI Routine Loss Weight Pain Abdominal Chronic Expected: 10/14/2023, Expires: 12/20/2024 Scheduled Referrals Name Type Priority Associated Diagnoses Order Schedule Vascular Medicine - Thrombophilia consult (clinic) Outpatient Referral Routine Loss Weight Pain Abdominal Chronic Expected: 10/04/2023, Expires: 01/03/2025 documented as of this encounter Results * (ABNORMAL) Comprehensive Metabolic Panel (10/09/2023 11:27 AM CDT) Potassium, S 4.2 3.6 - 5.2 mmol/L [...] AM CDT 10/09/2023 12:13 PM CDT Arturo Montalvo., M.S. LAB BLOOD ADD-ON [facility] [address] [place] [address], [facility] [address] [place] [address] * APTT (Activated Partial Thromboplastin Time) (10/09/2023 11:27 AM CDT) Activated Partial Thrombopl Time, P 35 25 - 37 sec 10/09/2023 12:44 PM CDT DTL Blood (Blood, Venous) 10/09/2023 11:27 AM CDT 10/09/2023 12:20 PM CDT Arturo Juan, M.S. LAB BLOOD ADD-ON Performing Organization Address City/[facility] Co de Phone Number [facility] [address] [facility] 200 [place] [address] * Prothrombin Time (PT) (10/09/2023 11:27 AM CDT) Pathologist [facility] Prothrombin Time, P 11.7 9.4 - 12.5 sec 10/09/2023 12:44 PM CDT DTL INR 1.1 0.9 - 1.1 10/09/2023 12:44 PM CDT DTL Comment: ----ADDITIONAL INFORMATION---- Standard intensity warfarin therapeutic range: 2.0 to 3.0 ?? High intensity warfarin therapeutic range: 2.5 to 3.5 Blood (Blood, Venous) 10/09/2023 11:27 AM CDT 10/09/2023 12:20 PM CDT Arturo Juan, M.S. LAB BLOOD ADD-ON Performing Organization Address City/[facility] Co de Phone Number [facility] [place] 200 [place], [place] [address] 200 [place] [address] * (ABNORMAL) CBC with Differential, Blood (10/09/2023 [...] CDT Arturo Montalvo., M.S. LAB BLOOD ADD-ON [facility] [place] [address] [place] [address], [facility] DTL [facility] [address] [place] [address] DHPM [facility] [address] [place] [address] documented in this encounter Visit Diagnoses Diagnosis Loss Weight- Primary Pain Abdominal Chronic documented in this encounter Additional Health Concerns Assessment Noted Time PHQ-9 Depression Total Score: 21 05/31/2 012 10:33 AM OCCUPATIONAL THERAPIST REHAB MANAGER documented as of this encounter Care Teams Retirement Assistant Relationship Specialty Start Date End Date Elsewhere, Pcp PCP - General Internal Medicine 06/26/22 documented as of this encounter
--- OUTSIDE RECORDS SUMMARY | 2023-12-14 17:26 | XMS_ITS | Encounter Summary ---
Author Organization [facility] Address [address] [place] [address] Care Team Providers Care Carpet Installer Name Role Phone Elsewhere, Pcp Primary Care Provider Unavailabl e Encounter Details Date Type Department Care Team (Late st Contact Info) Description 09/05/2023 Ancillary Procedure Department of Gastroenterology Social History [...] your living situation today? I have a [facility] place to live 01/01/2023 Sex [...] AM CDT Clinical Communication Virtual Review in [place], [place] 200 [place] [phone] 12/31/2023 9:30 AM CDT Comprehensive Visit Division of Pain Medicine in [place], [place] [address] [place] [phone] Lincoln Abdi, ATUL, C.N.P., M.S.N. [address] [place] [phone] 12/31/2023 12:45 PM CDT Appointment Division of Gastroenterology in [place], [place] [address] [place] [phone] Jose Roberto Patterson M.D. [address] [place] [phone] 01/02/2024 11:00 AM CDT Virtual Visit Division of Gastroenterology in [place], [place] [address] [place] [phone] Jose Roberto Patterson M.D. [address] [place] [phone] 02/10/2024 8:00 AM VP PUBLIC RELATIONS Appointment Department of Radiology, [facility] in [place], [place] [address] [place] [phone] Malika Marc M.D. [address] [place] [phone] documented as of this encounter Procedures Procedure Name Priority Date/Time Associated Diagnosis Comments GASTROENTEROLOGY IMAGE EXAM Routine 09/05/2023 12:00 AM CDT documented in this encounter Results * Unspecified-Gastroenterology Image Exam (09/05/2023 12:00 AM CDT) Narrative [facility] - 09/05/2023 4:36 PM CDT This order has been created [...] Total Score: 21 012 10:33 AM VP PUBLIC RELATIONS documented as of this encounter Care Teams Carpet Installer Relationship Specialty Start Date End Date Elsewhere, Pcp PCP - General Internal Medicine 06/26/22 documented as of this encounter
--- OUTSIDE RECORDS SUMMARY | 2023-12-14 17:26 | XMS_ITS | Encounter Summary ---
Author Organization [facility] Address [address] [place] [address] Care Team Providers Care Food Mixer Name Role Phone Elsewhere, Pcp Primary Care Provider Unavailabl e Encounter Details Date Type Department Care Team (Latest Contact Info) Description 10/09/2023 11:12 AM CDT - 10/09/2023 11:59 PM CDT Hospital Encounter Department of Laboratory Medicine and Pathology, [facility], in [place], [place] [address] [place] [phone] Arturo Camacho M.B.B.S., M.S. [address] [place] [phone] Loss Weight; Pain Abdominal Chronic Discharge Disposition: Home or Self Care Social [...] your living situation today? I have a [facility] place to live 01/01/2023 Sex and [...] as needed for pain. For 30 days. [id number] (MoviPrep) 100-7.5-2.691 gram kitIndications:Loss Weight,Pain Abdominal Chronic [...] smoking after 1 week. 53 tablet 01/02/2023 10/12/2023 documented as of this encounter Plan of Treatment Upcoming Encounters Date Type Department Care Team (Latest Contact Info) Description 12/30/2023 9:45 AM CDT Clinical Communication Virtual Review in [place], [place] 200 [place] [phone] 12/31/2023 9:30 AM CDT Comprehensive Visit Division of Pain Medicine in [place], [place] [address] [place] [phone] Lincoln Abdi, ATUL, C.N.P., M.S.N. [address] [place] [phone] 12/31/2023 12:45 PM CDT Appointment Division of Gastroenterology in [place], [place] [address] [place] [phone] Jose Roberto Patterson M.D. [address] [place] [phone] 01/02/2024 11:00 AM CDT Virtual Visit Division of Gastroenterology in [place], [place] [address] [place] [phone] Jose Roberto Patterson M.D. [address] [place] [phone] 02/10/2024 8:00 AM VICE PRESIDENT SALES AND MARKETING Appointment Department of Radiology, [facility], in [place], [place] [address] [place] [address] Malika Marc M.D. [address] [place] [phone] documented as of this encounter Procedures Procedure Name Priority Date/Time Associated Diagnosis Comments ACTIVATED PARTIAL THROMBOPLASTIN TIME (APTT), P Routine 10/09/2023 11:27 AM CDT Loss Weight Pain Abdominal Chronic PROTHROMBIN TIME (PT), P Routine 10/09/2023 11:27 AM CDT Loss Weight Pain Abdominal Chronic CBC WITH DIFFERENTIAL, B Routine 10/09/2023 11:27 AM CDT Loss Weight Pain Abdominal Chronic COMPREHENSIVE METABOLIC PANEL, S/P Routine 10/09/2023 11:27 AM CDT Loss Weight Pain Abdominal Chronic documented in this encounter Results * (ABNORMAL) [...] AM CDT 10/09/2023 12:13 PM CDT Arturo MinayaB.S., M.S. LAB BLOOD ADD-ON [facility] 200 [place] [address], [facility] 200 [place] [address] * APTT (Activated Partial Thromboplastin Time) (10/09/2023 11:27 AM CDT) Activated Partial Thrombopl Time, P 35 25 - 37 sec 10/09/2023 12:44 PM CDT DTL Blood (Blood, Venous) 10/09/2023 11:27 AM CDT 10/09/2023 12:20 PM CDT Arturo Juan, M.S. LAB BLOOD ADD-ON Performing Organization Address City/[facility]/ZIP Co de Phone Number [address] [place] [address] * Prothrombin Time (PT) (10/09/2023 11:27 AM CDT) Pathologist [facility] Prothrombin Time, P 11.7 9.4 - 12.5 sec 10/09/2023 12:44 PM CDT DTL INR 1.1 0.9 - 1.1 10/09/2023 12:44 PM CDT DTL Comment: ----ADDITIONAL INFORMATION---- Standard intensity warfarin therapeutic range: 2.0 to 3.0 ?? High intensity warfarin therapeutic range: 2.5 to 3.5 Blood (Blood, Venous) 10/09/2023 11:27 AM CDT 10/09/2023 12:20 PM CDT Arturo Juan, M.S. LAB BLOOD ADD-ON [address] [address], [place] [address] * (ABNORMAL) CBC with Differential, Blood (10/09/2023 11:27 AM CDT) [facility] Hemoglobin 11.7 11.6 - 15.0 g/dL 10/09/2023 [...] AM CDT 10/09/2023 12:20 PM CDT Arturo McgillS., M.S. LAB BLOOD ADD-ON [facility] 200 [place] [address], [facility] DTL [facility] [address] [place] [address] DHPM [facility] 200 [place] [address] documented in this encounter Visit Diagnoses Diagnosis Loss Weight Pain Abdominal Chronic documented in this encounter Additional Health Concerns Assessment Noted Time PHQ-9 Depression Total Score: 21 03/2 012 10:33 AM VICE PRESIDENT SALES AND MARKETING documented as of this encounter Care Teams Food Mixer Relationship Specialty Start Date End Date Elsewhere, Pcp PCP - General Internal Medicine 06/26/22 documented as of this encounter
--- OUTSIDE RECORDS SUMMARY | 2023-12-14 17:26 | XMS_ITS | Encounter Summary ---
Author Organization [facility] Address [address] [place] [phone] Care Team Providers Care Harness Cutter Name Role Phone Elsewhere, Pcp Primary Care Provider Unavailabl e Reason for Referral * Outpatient (Routine) - Closed Specialty Diagnoses / Procedures Referred By Olivia gonzalez Referred To Contact Neurology Diagnoses Multiple Sclerosis (HCC) Transient Ischemic Attack Andre Crouch M.D. [address] [place] [address] [facility] Referral ID Status Reason Start Date Expiration Date V isits Requested Visits Authorized [id number] Closed Specialty Services Required 10/09/2023 04/09/2025 1 1 Reason for Visit * Outpatient (Routine) - Closed Specialty Diagnoses / Procedures Referred By Olivia gonzalez Referred To Contact Vascular Medicine Diagnoses Loss Weight Pain Abdominal Chronic Arturo Camacho M.B.B.S., M.S. [address] [place] [phone] [facility] Referral ID Status Reason Start Date Expiration Date Visits Re quested Visits Authorized [id number] Closed 10/04/2023 04/04/2025 1 1 Encounter Details Date Type Department Care Team (Latest Contact Info) Description 10/09/2023 1:00 PM CDT Comprehensive Visit Department of Vascular Medicine in [place], [place] [address] [place] [address] Andre Crouch M.D. [address] [place] [address] Multiple Sclerosis (HCC) (Primary Dx); Loss Weight; Pain Abdominal Chronic; Transient Ischemic Attack; Pancreatitis Chronic (HCC) Social History Tobacco Use [...] your living situation today? I have a omar place to live 01/01/2023 Sex and Gender Information Value Date Recorded Sex Assigned at Female 01/01/2023 9:08 AM CDT Gender Identity Female 01/01/2023 9:08 AM CDT Sexual Orientation Straight 01/01/2023 9: 08 AM CDT documented as of this encounter Last Filed Vital Signs Vital Sign Reading Time Taken Comments Blood Pressure 152/91 10/09/2023 12:04 PM CDT Pulse 80 10/09/2023 12:04 PM CDT Temperature - - Respiratory Rate - - Oxygen Saturation - - Inhaled Oxygen Concentration - - Weight 54.3 kg (119 lb 11.4 oz) 024 12:02 PM CDT Height 162 cm (5' 3.78) 10/09/2023 12: 02 PM CDT Body Mass Index 20.69 10/09/2023 12:02 PM CDT documented in this encounter Consult Notes * Andre Crouch M.D. - 10/09/2023 1:00 PM CDT SUBJECTIVE CHIEF COMPLAINT / REASON FOR VISIT Ms. Yary Prince is a 68 y.o. female referred to [facility] by Arturo Camacho M.B.B.S., M.S. for evaluation and recommendations regarding a recent neurologic spell. HISTORY OF PRESENT ILLNESS Ms. Prince has unintentional weight loss and chronic pancreatitis. She is followed in pancreas clinicand there is plan for upcoming ERCP with pancreatic stent change and colonoscopy. Recently, in lateAugust, she was hospitalized locally for pneumonia and according to electronic record notes that we have she had an episode of right upper extremity weakness during that hospitalization. This was diagnosed as being a TIA. She had of the head and neck that did not show any CTA of the head and neck that did not show any large vessel occlusive disease. I understand that she also had a transthoracic echo that was unremarkable. The inpatient team seeing her started her on apixaban 5 mg twice daily and recommended outpatient Neurology follow-up. She states that in anticipation of endoscopy next week she has stopped the apixaban. An electronic consult was placed by GI with thrombophilia Clinic regarding estee procedural anticoagulation management. My colleague who did the consult on September 24 indicated that in looking at the available data it is not clear why Ms. Prince had the neurologic spell that she did and recommended neurology workup and potential cardiology workup to investigate the cause of this episode. The importance is that if it is an indication that does require anticoagulation it would be preferable not to interrupt the anticoagulation electively for at least 3 months after acute TIA. I do not see that thatconsult has been carried out. Patient herself says that the symptom she had in her right side, predominantly right upper extremity was transient weakness. She said this was in the setting of feeling stressed by her medical illness, pneumonia, and concern about her weight loss. She is very concerned she has an underlying malignancy. She tells me that she has a longstanding history of multiple sclerosis and when under stress can have symptoms like she experienced in the right upper extremity. She does have a personal history of deep vein thrombosis for which she completed course of anticoagulation she says. She has no reported history large vessel arterial disease, intracardiac thrombus or endocarditis, or documented atrial fibrillation. With the episode that she had inpatient on September [address] of the head was done that showed very small chronic lacunar infarcts and changes consistentwith small-vessel ischemic disease but no evidence of stroke. She has no symptoms of active bleeding from internal sources. As noted she took the apixaban for a short time but discontinued it in recent days in anticipation of her endoscopy. As a side note my colleague who did the electronic consult for thrombophilia Clinic spelled out preprocedure and potential postprocedure instructions about timing interruption for apixaban for the planned upcoming procedures but as stated expressed that prior to carrying out such a plan we need tohave better understanding as to why she had the neurologic event and whether it was truly a sign ofan ischemic brain event. Current Outpatient Medications on File Prior to Visit Medication Sig Accu-Chek Guide test strips 3 (three) times a day. for testing acetaminophen (TYLENOL) 500 mg tablet Take 1,000 mg by mouth every 6 (six) hours as needed. aspirin [address] tablet Take 325 mg by mouth every 6 (six) hours as needed for pain. BD Ultra-Fine Micro Pen Needle 32 gauge x 1/4 needle clotrimazole (LOTRIMIN) 1 % cream APPLY TO AFFECTED AREA(S) TWO TIMES A DAY FOR 7 DAYS cyclobenzaprine (FLEXERIL) 10 mg tablet Take 10 mg by mouth 3 (three) times a day as needed. donepeziL (ARICEPT) 5 mg tablet Take by mouth daily. DULoxetine (CYMBALTA) [address] capsule Take 30 mg by mouth every morning. fentaNYL (DURAGESIC) 12 mcg/hr patch States it fell off hydrocortisone (INSTACORT) 0.5 % cream ONE APPLICATION TOPICALLY TWICE DAILY NEEDED FOR RASH insulin glargine (LANTUS) 100 unit/mL injection Inject 30 Units under the skin 2 (two) times a day.Full dose last night. None today insulin lispro 100 unit/mL injection Not started yet losartan (COZAAR) 100 mg tablet Take 1 tablet by mouth at bedtime. montelukast (SINGULAIR) 10 mg tablet Take 10 mg by mouth at bedtime. nystatin (MYCOSTATIN) 100,000 unit/mL suspension TAKE 4MLS BY MOUTH FOUR TIMES DAILY FOR 7 DAYS; ADMINISTER ONE HALF DOSE IN EACH SIDE OF THE MOUTH ondansetron ODT (ZOFRAN-ODT) 4 mg disintegrating tablet DISSOLVE ONE TABLET ON THE TONGUE TWO TO THREE TIMES PER DAY NEEDED FOR NAUSEA AND VOMITING FOR 3 DAYS oxyBUTYnin (DITROPAN-XL) 10 mg 24 hr tablet Take 10 mg by mouth at bedtime. oxyCODONE (ROXICODONE) 10 mg IR tablet TAKE ONE-HALF TABLET BY MOUTH FOUR TIMES A DAY NEEDED FORPAIN FOR 14 DAYS oxyCODONE (ROXICODONE) 5 mg immediate release tablet Take 5 mg by mouth every 6 (six) hours as needed for pain. For 30 days. [id number] lbi-HdQr-QLj-asb-C (MoviPrep) 100-7.5-2.691 gram kit Drink 1st portion of prep at 6 PM the evening before. 2nd portion must be started 3 hours before and finished 2 hours prior to report time QUEtiapine (SEROquel) 100 mg tablet Take 100 mg by mouth at bedtime. QUEtiapine (SEROquel) 400 mg tablet Take 400 mg by mouth at bedtime. simvastatin (ZOCOR) 40 mg tablet Take 40 mg by mouth at bedtime. SUMAtriptan (IMITREX) 100 mg tablet Take 100 mg by mouth as needed for migraine. May repeat dose once in 2 hours if migraine is unresolved. Do not exceed 200 mg in 24 hours. [DISCONTINUED] varenicline (CHANTIX CECILE) 0.5 mg (11)- 1 mg (42) tablet Use as directed on package instructions, try to quit smoking after 1 week. (Patient not taking: Reported on 06/26/2023) No current facility-administered medications on file prior to visit. REVIEW OF SYSTEMS Pertinent items are noted in HPI. OBJECTIVE PHYSICAL EXAM Wt 54.3 kg BP (!) 152/91 (BP Location: Right arm, Patient Position: Sitting, Cuff Size: Regular) Pulse 80 Ht 162 cm Wt 54.3 kg BMI 20.69 kg/m?? General: In no respiratory distress. Heart: Regular rhythm. No murmurs, rub, or gallops. Lungs: Clear to auscultation bilaterally. No signs of effusion or consolidation. Skin: No signs of ecchymosis or petechiae. Extremities: There is trace edema of the pretibial areas bilaterally. Neuro: There is no asymmetry in terms of upper extremity or lower extremity strength, muscle tone or coordination. ASSESSMENT / PLAN #1 Loss Weight #2 Pain Abdominal Chronic #3 Multiple Sclerosis (HCC) #4 Transient Ischemic Attack #5 Pancreatitis Chronic (HCC) I agree with my colleague who did the electronic consult that prior to elective, but important, interruption of anticoagulation it would be beneficial to understand whether she truly had an acute transient ischemic event involving the brain. If she did then it may be prudent to continue anticoagulation for at least a few months before elective discontinuation or if interruption is done for invasive procedures we would at least understand what her risks of doing so would be. I have asked her to resume the apixaban since I do not know the etiology of her event in August while this is sorted out. Patient herself believes that the symptom she had was more typical of a transient symptom she mighthave with her MS. This is a very pertinent point and if the case is true then perhaps she does not need the anticoagulation at all. Alternatively perhaps she has had a TIA on the basis of small-vessel disease which would benefit from aspirin or antiplatelet therapy alone and not anticoagulation. I made the recommendation for her to see Neurology to see what they think about her symptom when they are able to talk to her in person and determine whether they think it was truly a TIA that she had or if there is an alternative explanation; and if it was a TIA what additional workup with they recommend if any or could we attribute it to small-vessel disease? Final recommendations: 1. For now would recommend to be back on apixaban 5 mg twice daily 2. I recommend Neurology consult to help determine likely etiology of transient right upper extremity weakness September 20, 2023 3. I have been in communication with GI treasury management sales consultant regarding recommendations from thrombophilia Center Total time greater than 30 minutes time spent reviewing complex medical history, examining patient,explaining management recommendations and plan of care. documented in this encounter Plan of Treatment Upcoming Encounters Date Type Department Care Team (Latest Contact Info) Description 12/30/2023 9:45 AM CDT Clinical Communication Virtual Review in [place], [place] [address] [place] [address] 12/31/2023 9:30 AM CDT Comprehensive Visit Division of Pain Medicine in [place], [place] [address] [place] [phone] Lincoln Abdi, CAR SALTER, C.N.P., M.S.N. [address] [place] [phone] 12/31/2023 12:45 PM CDT Appointment Division of Gastroenterology in [place], [place] [address] [place] [phone] Jose Roberto Patterson M.D. [address] [place] [phone] 01/02/2024 11:00 AM CDT Virtual Visit Division of Gastroenterology in [place], [place] [address] [place] [phone] Jose Roberto Patterson M.D. [address] [place] [phone] 02/10/2024 8:00 AM FOREST SCIENTIST Appointment Department of Radiology, [facility], in [place], [place] [address] [place] [address] Malika Marc M.D. [address] [place] [address] Scheduled Referrals Name Type Priority Associated Diagnoses Orde r Schedule Neurology - General consult (clinic) Outpatient Referral Routine Multiple Sclerosis (HCC) Transient Ischemic Attack Expected: 10/09/2023, Expires: 01/08/2025 documented as of this encounter Visit Diagnoses Diagnosis Multiple Sclerosis (HCC)- Primary Loss Weight Pain Abdominal Chronic Transient Ischemic Attack Pancreatitis Chronic (HCC) documented in this encounter Additional Health Concerns Assessment Noted Time PHQ-9 Depression Total Score: 21 012 10:33 AM FOREST SCIENTIST documented as of this encounter Care Teams Harness Cutter Relationship Specialty Start Date End Date Elsewhere, Pcp PCP - General Internal Medicine 06/26/22 documented as of this encounter
--- OUTSIDE RECORDS SUMMARY | 2023-12-14 17:26 | XMS_ITS | Encounter Summary ---
Author Organization [facility] Address [address] [place] [address] Care Team Providers Care Leasing Specialist Name Role Phone Elsewhere, Pcp Primary Care Provider Unavailabl e Reason for Visit * Reason Onset Date Comments [facility] - Outside Materials 09/23/2023 Encounter Details Date Type Department Care Team (Latest Contact Info) Description 09/23/2023 Clinical Communication Division of Gastroenterology in [place], [place] [address] [place] [phone] Jose Roberto Patterson M.D. [address] [place] [phone] [facility] - Outside Materials Social History Tobacco [...] AM CDT Clinical Communication Virtual Review in [place], [place] [address] [place] [address] 12/31/2023 9:30 AM CDT Comprehensive Visit Division of Pain Medicine in [place], [place] [address] [place] [phone] Lincoln Abdi, ATUL, C.N.P., M.S.N. [address] [place] [address] 12/31/2023 12:45 PM CDT Appointment Division of Gastroenterology in [place], [place] [address] [place] [phone] Jose Roberto Patterson M.D. [address] [place] [phone] 01/02/2024 11:00 AM CDT Virtual Visit Division of Gastroenterology in [place], [place] [address] [place] [phone] Jose Roberto Patterson M.D. [address] [place] [phone] 02/10/2024 8:00 AM DIRECTOR IMMUNOLOGY Appointment Department of Radiology, [facility], in [address] [phone] Malika Marc M.D. [address] [place] [phone] documented as of this encounter Visit Diagnoses Not on filedocumented in this encounter Additional Health Concerns Assessment Noted Time PHQ-9 Depression Total Score: 21 012 10:33 AM DIRECTOR IMMUNOLOGY documented as of this encounter Care Teams Leasing Specialist Relationship Specialty Start Date End Date Elsewhere, Pcp PCP - General Internal Medicine 06/26/22 documented as of this encounter
--- OUTSIDE RECORDS SUMMARY | 2023-12-14 17:26 | XMS_ITS | Encounter Summary ---
Author Organization [facility] Address [address] [place] [address] Care Team Providers Care Business Management Professor Name Role Phone Elsewhere, Pcp Primary Care Provider Unavailabl e Encounter Details Date Type Department Care Team (Late st Contact Info) Description 09/05/2023 [facility] [address] [place] [address] Anne Esquivel, C.N.P. [address] [place] [phone] Stool Positive Occult Blood (Primary Dx); Bleeding Rectal; Loss Weight Abnormal Social History Tobacco Use Types Packs/Day Years [...] AM CDT Clinical Communication Virtual Review in [place], [place] [address] [place] [address] 12/31/2023 9:30 AM CDT Comprehensive Visit Division of Pain Medicine in [place], [place] [address] [place] [phone] Lincoln Abdi, ATUL, C.N.P., M.S.N. [address] [place] [phone] 12/31/2023 12:45 PM CDT Appointment Division of Gastroenterology in [place], [place] [address] [place] [phone] Jose Roberto Patterson M.D. [address] [place] [phone] 01/02/2024 11:00 AM CDT Virtual Visit Division of Gastroenterology in [place], [place] [address] [place] [phone] Jose Roberto Patterson M.D. [address] [place] [phone] 02/10/2024 8:00 AM HIGH SCHOOL SPECIAL EDUCATION TEACHER Appointment Department of Radiology, [facility], in [address] [phone] Malika Marc M.D. [address] [place] [phone] documented as of this encounter Visit Diagnoses Diagnosis Stool Positive Occult Blood- Primary Bleeding Rectal Loss Weight Abnormal documented in this encounter Additional Health Concerns Assessment Noted Time PHQ-9 Depression Total Score: 21 012 10:33 AM HIGH SCHOOL SPECIAL EDUCATION TEACHER documented as of this encounter Care Teams Business Management Professor Relationship Specialty Start Date End Date Elsewhere, Pcp PCP - General Internal Medicine 06/26/22 documented as of this encounter
== END 2023-12-10 13:35 | disposition home or self-care (01) ==
LOC: NFLDREF 12-14 17:22
PROVIDERS: PCP Nurse Practitioner Family; Referring Provider Nurse Practitioner Family; Visit Provider Nurse Practitioner Family
DX: E11.69 Type 2 diabetes mellitus with other specified complication (principal); R00.2 Palpitations; E78.5 Hyperlipidemia, unspecified; E55.9 Vitamin D deficiency, unspecified; Z79.4 Long term (current) use of insulin; Z13.0 Encounter for screening for diseases of the blood and blood-forming organs and certain disorders involving the immune mechanism; I10 Essential (primary) hypertension
CPT/HCPCS: 80053; 80061; 82043; 82306; 82570; 82607; 84443; 85025

== ENCOUNTER 2024-01-27 13:15 | Outpatient (CLI) | payer OTHER, SELFPAY ==
--- OUTSIDE RECORDS SUMMARY | 2024-01-27 13:19 | XMS_ITS | Encounter Summary ---
Author Organization [facility] Address [address] [place] [address] Care Team Providers Care Qualifications Examiner Name Role Phone Elsewhere, Pcp Primary Care Provider Unavailabl e Reason for Referral * Specialty Diagnoses / Procedures Referred By Contac t Referred To Contact Diagnoses Pancreatitis Chronic (HCC) Jose Roberto Patterson M.D. [address] [place] [phone] Phone: tel: fax: [facility] Referral ID Status Reason Start Date Expiration Date Visits Re quested Visits Authorized Encounter Details Date Type Department Care Team (Latest Contact Info) Description 01/01/2024 Orders Only Division of Gastroenterology in [place], [place] [address] [place] [phone] Jose Roberto Patterson M.D. [address] [place] [phone] Pancreatitis Chronic (HCC) (Primary Dx) Social History Tobacco Use Types Packs/Day Years Used Date Smoking Tobacco: Every Day Cigarettes 0.3 55.8 Started: [birth year]01/1969 Smokeless Tobacco: Never Alcohol Use [...] living? Yes 01/01/2023 Nutrition Answer Date Recorded On average, how many serving s of [...] of [place] place to live 01/01/2023 Comments No Sex and Gender Information Value Date Recorded Sex Assigned at Female 01/01/2023 9:08 AM CDT Legal Sex Female 11:50 PM JACKET CHANGER Gender Identity Female 01/01/2023 9:08 AM CDT Sexual Orientation Straight 01/01/2023 9: 08 AM CDT documented as of this encounter Plan of Treatment Scheduled Referrals Name Type Priority Associated Diagnoses Order Schedule Gastroenterology and Hepatology - Nurse education visit (clinic) Outpatient Referral Routine Pancreatitis Chronic (HCC) Expected: 01/01/2024, Expires: 04/02/2025 documented as of this encounter Visit Diagnoses Diagnosis Pancreatitis Chronic (HCC)- Primary documented in this encounter Additional Health Concerns Assessment Noted Time PHQ-9 Depression Total Score: 21 012 10:33 AM JACKET CHANGER documented as of this encounter Care Teams Qualifications Examiner Relationship Specialty Start Date End Date Elsewhere, Pcp PCP - General Internal Medicine 06/26/22 documented as of this encounter
--- OUTSIDE RECORDS SUMMARY | 2024-01-27 13:19 | XMS_ITS | Clinical Summary ---
Author Organization [facility] Address [address] [place] [address] Care Team Providers Care Museum Exhibit Technician Name Role Phone Elsewhere, Pcp Primary Care Provider Unavailabl e Source Comments Patient records contain information from all sites at [facility]. For routine questions regarding patient records, call [phone] during business hours, M-F 8:00 AM - 5:00 PM Central Time. Record requests for emergency care only can be directed to [phone] at any time.[facility] Allergies Active Allergy Reactions Criticality Noted Date Comments Lactose GI intolerance 10/16/2002 Nitrofurantoin Hives (Reselect Reaction) 01/17/2010 Pollen Extracts Other (see comments) 02/02/2011 Prednisone Myalgia 07/03/2002 Sulfamethoxazole Other (see comments) 1 Sulfamethoxazole-Trimethoprim Hives (Res elect Reaction) 01/17/2010 Trimethoprim Other (see comments) 05/17/2021 Medications losartan (COZAAR) 100 mg tablet Take 1 tablet by mouth at bedtime. 01/25/20 15 Active QUEtiapine (SEROquel) 400 mg tablet Take 400 mg by mouth at bedtime. 07/12/19 14 Active oxyBUTYnin (DITROPAN-XL) 10 mg 24 hr tablet Take 10 mg by mouth at bedtime. Active Accu-Chek Guide test strips 3 (three) times a day. for testing 07/26/19 Active cyclobenzaprine (FLEXERIL) 10 mg tablet Take 10 mg by mouth 3 (three) times a day as needed. 07/27/19 23 Active SUMAtriptan (IMITREX) 100 mg tablet Take [...] 5 mg tablet Take by mouth daily. 05/17/19 22 Active oxyCODONE (ROXICODONE) 10 mg IR tablet TAKE ONE-HALF TABLET BY MOUTH FOUR TIMES A DAY NEEDED FOR PAIN FOR 14 DAYS 10/17/19 23 Active aspirin [address] tablet Take 325 mg by mouth every 6 (six) hours as needed for pain. Active fentaNYL (DURAGESIC) 12 mcg/hr patch States it fell off 02/01/20 23 Active acetaminophen (TYLENOL) 500 mg tablet Take 1,000 mg by mouth every 6 (six) hours as needed. 01/09/20 23 Active insulin glargine (LANTUS) 100 unit/mL injection Inject 30 Units under the skin 2 (two) times a day. Full dose last night. None today Active clotrimazole (LOTRIMIN) 1 % cream APPLY TO AFFECTED AREA(S) TWO TIMES A DAY FOR 7 DAYS 04/19/19 24 Active hydrocortisone (INSTACORT) 0.5 % cream ONE APPLICATION TOPICALLY TWICE DAILY NEEDED FOR RASH 04/19/19 24 Active nystatin (MYCOSTATIN) 100,000 unit/mL suspension TAKE 4MLS BY MOUTH FOUR TIMES DAILY FOR 7 DAYS; ADMINISTER ONE HALF DOSE IN EACH SIDE OF THE MOUTH 04/19/19 24 Active QUEtiapine (SEROquel) 100 mg tablet Take 100 mg by mouth at bedtime. 06/21/19 24 Active oxyCODONE (ROXICODONE) 5 mg immediate release tablet Take 5 mg by mouth every 6 (six) hours as needed for pain. For 30 days. Active [id number]-[id number]-asb-C (MoviPrep) 100-7.5-2.691 gram kitIndications:Los s Weight,Pain Abdominal Chronic Drink 1st portion of prep at 6 PM the evening before. 2nd portion must be started 3 hours before and finished 2 hours prior to report time 1 kit 09/20/19 24 Active Dexcom G6 Sensor device 12/28/19 24 Active varenicline (Chantix Bud) 0.5 mg (11)- 1 mg (42) tablet Take 2 tablets by mouth 2 (two) times a day with meals. 12/11/19 24 Active ondansetron ODT (ZOFRAN-ODT) 4 mg disintegrating tablet DISSOLVE ONE TABLET ON THE TONGUE TWO TO THREE TIMES PER DAY NEEDED FOR NAUSEA AND VOMITING FOR 3 DAYS 09/18/19 024 Discontin ued(Thera py completed ) insulin lispro 100 unit/mL injection Not started yet 0 24 024 Discontin ued(Thera py completed ) BD Ultra-Fine Micro Pen Needle 32 gauge x 1/4 needle 04/29/19 24 024 Discontin ued(Thera py completed ) Active Problems Problem Noted Date Diagnosed [...] Encounters Date Type Department Care Team Description 01/01/2024 Orders Only Division of Gastroenterology in [address] [phone] Jose Roberto Patterson M.D. Pancreatitis Chronic (HCC) (Primary Dx) 12/31/2023 3:15 PM CDT Ancillary Procedure Department of Gastroenterology 12/31/2023 3:05 PM CDT Ancillary Procedure Department of Gastroenterology 12/31/2023 1:12 PM CDT Anesthesia Event Division of Gastroenterology in [address] [phone] Jasmin Durant O, BLACK AND WHITE PRINTER OPERATOR, ENGLISH HORN PLAYER 12/31/2023 12:21 PM CDT - 12/31/2023 11:59 PM CDT Hospital Encounter Department of Radiology[address] [phone] Jose Roberto Patterson M.D. Discharge Disposition: Home or Self Care 12/31/2023 12:09 PM CDT - 12/31/2023 4:26 PM CDT Hospital Encounter Division of Gastroenterology in [address] [phone] Jose Roberto Patterson M.D. Pain Abdominal Chronic; Loss Weight Discharge Disposition: Home or Self Care 12/30/2023 9:45 AM CDT Clinical Communication Virtual Review in [place], [place] [address] [place] [address] Pre-visit Intake 12/30/2023 Nurse Triage Division of Community Internal Medicine, [facility] in [place], [place] [address] [place] [phone] Molly Armstrong R.N. Blood Sugar Problem 12/05/2023 Clinical Communication Division of Gastroenterology in [place], [place] [address] [place] [phone] Jose Roberto Patterson M.D. 11/15/2023 1:00 PM CDT Comprehensive Visit Department of Neurology in [place], [place] [address] [place] [phone] Andre Crouch M.D. Keegan, B. Mark, M.D. Multiple Sclerosis (HCC) (Primary Dx); Transient Ischemic Attack; Abuse Tobacco Smoking 11/01/2023 9:05 AM CDT - 11/01/2023 11:59 PM CDT Hospital Encounter Department of Radiology, [facility] in [place], [place] [address] [place] [phone] Lizzy Carrington M.D. Multiple Sclerosis (HCC) Discharge Disposition: Home or Self Care 11/01/2023 8:45 AM CDT Ancillary Procedure Department of Ophthalmology 11/01/2023 8:45 AM CDT Ancillary Procedure Department of Ophthalmology in [place], [place] [address] [place] [phone] Lizzy Carrington M.D. Multiple Sclerosis (HCC); Demyelinating Disease Central Nervous System (HCC) from Last 3 Months Immunizations Name Administration [...] 0.3 55.8 Started: 04/01/1968 Smokeless Tobacco: Never Tobacco Cessation:Ready to Q uit: Not Asked; Counseling Given: Not Answered Alcohol Use Standard Drinks/Week Comments No 0 (1 standard drink = 0.6 oz pur e alcohol) Overall Financial Resource Strain (CARDI) Answe r Date Recorded How hard is [...] your living situation today? I have a [facility] place to live 01/01/2023 Comments No Sex and Gender Information Value Date Recorded Sex Assigned at Female 01/01/2023 9:08 AM CDT Legal Sex Female 11:50 PM DESKTOP SUPPORT TECHNICIAN Gender Identity Female 01/01/2023 9:08 AM CDT Sexual Orientation Straight 01/01/2023 9: 08 AM CDT Last Filed Vital Signs Vital Sign Reading Time Taken Comments Blood Pressure 166/89 12/31/2023 4:00 PM CDT Pulse 60 12/31/2023 4:00 PM CDT Temperature 36.4 ??C (97.5 ??F) 12/31/2023 2:50 PM CD T Respiratory Rate 19 12/31/2023 4:00 PM CDT Oxygen Saturation 98% 12/31/2023 4:00 PM CDT Inhaled Oxygen Concentration - - Weight 53.6 kg (118 lb 2.7 oz) 11/15/2023 12:56 PM CDT Height 162.6 cm (5' 4) 12/31/2023 12:47 PM CDT Body Mass Index 19.93 11/15/2023 12:56 PM CDT Plan of Treatment Health Maintenance Due Date Last Done Comments CT Colonography 1955 Diabetic Office Visit with F oot Exam 1955 FIT 1955 Generalized Anxiety (CLIFTON-7) 1955 Hepatitis C Screening 1955 Urine Albumin 05/04/2012 05/04/2011 Mammogram 10/15/2013 10/15/2012 (Perf ormed elsewhere), 05/30/2012 (Performed elsewhere), 05/11/2011, Additional history exists Hepatitis B Vaccines (1 of 3 - Risk 3-dose series) 2014 RSV vaccine - (32-3 6 weeks) or 60+ years (1 - Risk 60-74 years 1-dose series) 2014 Zoster Vaccines (1 of 2) 07/17/2016 05/22/2016 Pneumococcal vaccine (65+ ye ars) (3 of 3 - PPSV23 or PCV20) 09/20/2020 09/21/2019, 08/12/2015, 06/29/2014, Additional history exists Controlled Substance Agreement 02/19/2023 Controlled Substance Monitor ing (PHQ-9) 02/19/2023 Controlled Substance Monitoring 02/19/2023 Opioid Risk Tool (ORT) 02/19/2023 PEG assessment for Opioid therapy 02/19/2023 COVID-19 Vaccine (1 - 2023-2 5 season) 2023 Hemoglobin A1C 12/21/2023 09/20/2023, 01/31, [...] Exam 10/31/2024 11/01/2023, 11/10/2010 Cologuard 05/31/2026 06/01/2023 Lipid (Cholesterol) Screening 09/19/2028, 11/22/2022, 06/02/2014, Additional history exists DTaP,Tdap,and Td Vaccines (4 - Td or Tdap) 07/24/2032 07/24/2022, 01/30/2006, 08/21/2004, Additional history exists Colonoscopy 12/30/2033 12/31/2023, 04/2023, 09/12/2011 (Performed elsewhere), Additional history exists Colorectal Cancer Screening 12/30/2033 Lung Cancer Screening Discontinued 09/19/2023, 011 Fall Risk Screen (Annual) Completed 12/31/2023 Medical Devices Explanted Type Area Partition Setter Device Identifier Shelf Expiration Date Model / Serial / Lot [facility] Wdg 8.5fx22 - [id number] Implanted:Qty : 1 on 05/08/2023 by Alverto Bunch M.D. at [facility] [employer] Explanted:Qty : 1 on 07/08/2023 by Jose Roberto Hays M.D. at [facility] [employer] Pancreatic Stent [employer] 03/12/2026 [id number] / / [id number] Description:8.5 x 12 [facility] Wdg 10fx22 - [id number] Implanted:Qty : 1 on 07/08/2023 by Jose Roberto Hays M.D. at [facility] [employer] Explanted:Qty : 1 on 12/31/2023 at [facility] Pancreatic Stent [employer] 05/29/2026 [id number] / / [id number] Procedures Procedure Name Priority Date/Time Associated Diagnosis Comments GLUCOSE POCT, B Routine 12/31/2023 3:59 PM CDT GLUCOSE POCT, B Routine 12/31/2023 3:38 PM CDT GASTROENTEROLOGY IMAGE EXAM Routine 12/31/2023 3:15 PM CDT COLONOSCOPY Routine 12/31/2023 3:12 PM CDT Loss Weight Pain Abdominal Chronic COLONOSCOPY Routine 12/31/2023 3:12 PM CDT Loss Weight Pain Abdominal Chronic GASTROENTEROLOGY IMAGE EXAM Routine 12/31/2023 3:05 PM CDT ERCP Routine 12/31/2023 3:03 PM CDT Pain Abdominal Chronic ERCP Routine 12/31/2023 3:03 PM CDT Pain Abdominal Chronic GLUCOSE POCT, B Routine 12/31/2023 3:01 PM CDT SURGICAL PATHOLOGY Routine 12/31/2023 2: 29 PM CDT GLUCOSE POCT, B Routine 12/31/2023 2:18 PM CDT FL FLUORO LESS THAN 1 HOUR RAD - Routine (most inpatients and all outpatients) 12/31/2023 1:53 PM CDT Pain Abdominal Chronic GLUCOSE POCT, B Routine 12/31/2023 1:25 PM CDT LDA ANE ENDOTRACHEAL AIRWAY Routine 12/31/2023 1:24 PM CDT GLUCOSE POCT, B Routine 12/31/2023 12:54 PM CDT GLUCOSE POCT, B Routine 12/31/2023 12:26 PM CDT MR BRAIN MULTIPLE SCLEROSIS WITHOUT AND WITH [...] AM CDT Loss Weight Pain Abdominal Chronic HEMOGLOBIN A1C, B Routine 02/19/2023 6:1 7 AM DESKTOP SUPPORT TECHNICIAN LIPID PANEL, S Routine 06/02/2014 6:51 AM DESKTOP SUPPORT TECHNICIAN BI BREAST SCREENING UNILATERAL Routine 05/11/2011 2:00 PM DESKTOP SUPPORT TECHNICIAN ALBUMIN, RANDOM, U Routine 05/04/2011 12:00 PM DESKTOP SUPPORT TECHNICIAN CT CHEST WITH IV CONTRAST Routine 03/13/2011 1:35 PM DESKTOP SUPPORT TECHNICIAN from Last 3 Months or Most Recently Relevant to Health Maintenance Results * Glucose, POCT (12/31/2023 3:59 PM CDT) Only the most recent of7 resultswithin the time period is included. Glucose, POCT, B 97 70 - 140 mg/dL 12/31/2023 4:01 PM CDT PCLX Site Capillary 12/31/2023 4:01 PM CDT PCLX Blood 12/31/2023 3:59 PM CDT 12/31/2023 4:01 PM CDT us Unknown Provider LAB POCT ORDERABLES-MANUAL Juli l Result POC [facility] [address] [place] [address], [facility] PCLX [facility] POC [address] [place] [address] * Colonoscopy-Gastroenterology Image Exam (12/31/2023 3:15 PM CDT) Only the most recent of2 resultswithin the time period is included. 12/31/2023 3:12 PM CDT Narrative IIMS - 12/31/2023 3:39 PM CDT This order has been created and auto-finalized to support the import of images acquired without order. The clinical documentation to support these images can be found on the encounter that produced images. us Provider Not In System IMG NON RAD IMAGING PROCE DUR Final Result IIID NA * Colonoscopy (12/31/2023 3:12 PM CDT) 12/31/2023 3:12 PM CDT Impressions [facility] - 12/31/2023 3:32 PM CDT Post-op Diagnoses: ? - No gross lesions identified, however, given poor preparation small ? lesions and polyps cannot be ruled out. ? - Biopsies were obtained in the descending colon and in the ascending ? colon to rule out microscopic colitis. ? - Hemorrhoids found on perianal exam. Narrative [facility] - 12/31/2023 3:32 PM CDT Kev 6 GI GI Patient Name: Yary Prince Date of : 1955 Age: 68 Procedure Date: 12/31/2023 Procedure: ? Colonoscopy Providers: ? Jose Roberto Patterson MD, Moriah Santana MD (Fellow) Referring Provider: ?Jose Roberto Patterson MD Pre-op Diagnoses: ?Positive Cologuard test, Clinically significant ? diarrhea of unexplained origin, Rectal bleeding, ? Weight loss Recommendation: ? - PATHOLOGY/MICROBIOLOGY FOLLOW-UP: The ordering provider is responsible ? for reviewing results from specimens obtained during this endoscopic ? procedure and communicating the findings to the patient. If guidance is ? needed for interpreting endoscopic findings or pathology results, please ? consider a gastroenterology e-consult. ? - Patient has a contact number available for emergencies. The signs and ? symptoms of potential delayed complications were discussed with the ? patient. Return to normal activities tomorrow. Written discharge ? instructions were provided to the patient. ? - Resume previous diet. ? - Continue present medications. ? - Await pathology results. ? - Consider repeat colonoscopy if within patient's goals of care given ? poor bowel preparation. Findings: ? Hemorrhoids were found on perianal exam. ? No gross lesions identified, however, given poor preparation, small ? lesions and polyps cannot be ruled out. ? Biopsies were obtained with cold forceps for evaluation of microscopic ? colitis in the descending colon and in the ascending colon. Procedural Details: ? The patient was seen, [...] oxygen saturations ? were monitored continuously. The Pediatric Colonoscope was introduced ? under direct vision through the anus and advanced to the cecum, ? identified by the appendiceal orifice. The colonoscopy was technically ? difficult and complex due to poor bowel prep with stool present. ? Successful completion of the procedure was aided by changing the patient ? to a supine position. The quality of the bowel preparation was evaluated ? using the BBPS (Left Hand Bowel Preparation Scale) with scores of: Right ? Colon = 1 (portion of mucosa seen, but other areas not well seen due to ? staining, residual stool and/or opaque liquid), Transverse Colon = 1 ? (portion of mucosa seen, but other areas not well seen due to staining, ? residual stool and/or opaque liquid) and Left Colon = 1 (portion of ? mucosa seen, but other areas not well seen due to staining, residual ? stool and/or opaque liquid). The total BBPS score equals 3. The ? appendiceal orifice and the rectum were photographed. Estimated Blood Loss: ?None. Complications: ? No immediate complications. 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 procedure, including non-owens portions. Jose Roberto Patterson MD 12/31/2023 3:32:34 PM This report has been signed electronically. Number of Addenda: 0 us Jose Roberto Patterson M.D. GI PROCEDURE ORDERABLE S Final Result [facility] [employer] NA * ERCP (12/31/2023 3:03 PM CDT) 12/31/2023 3:03 PM CDT Impressions [facility] - 12/31/2023 3:31 PM CDT Post-op Diagnoses: ? - Chronic pancreatitis, improved appearance of stricture and pancreatic ? stone burden ? - Previously placed stent was removed ? - Possible stones identified today not extracted will likely pass ? spontaneously given dilated duct and pancreatic sphincterotomy. Narrative [facility] - 12/31/2023 3:31 PM CDT Kev 6 GI GI Patient Name: Yary Prince Date of : 1955 Age: 68 Procedure Date: 12/31/2023 Procedure: ? ERCP Providers: ? Jose Roberto Patterson MD, Moriah Santana MD (Fellow) Referring Provider: ?Jose Roberto Patterson MD Pre-op Diagnoses: ?Pancreatic duct stone, Pancreatic duct stricture, ? Pancreatic stent removal, Chronic pancreatitis Recommendation: ? - Proceed to colonoscopy today as scheduled. See colonoscopy note for ? details regarding that procedure. ? - The patient will be observed post-procedure, until all discharge ? criteria are met. ? - Discharge patient to home. ? - Resume previous diet. Findings: ? A pancreatic stent was visible on the edger hand film. The esophagus was ? successfully intubated under direct vision. The scope was advanced to ? the major papilla in the descending duodenum without detailed ? examination of the pharynx, larynx and associated structures, and upper ? GI tract. One plastic stent originating in the pancreatic duct was ? emerging from the major papilla. Inspection of the major papilla ? revealed that biliary and pancreatic sphincterotomies had been performed ? previously. One stent was removed from the pancreatic duct using a ? snare. A 0.035 inch angled Glidewire was passed into the dorsal ? pancreatic duct. The dorsal pancreatic duct was then deeply cannulated ? with the 8.5 mm balloon. Contrast was injected. I personally interpreted ? the pancreatic duct images. Ductal flow of contrast was adequate. Image ? quality was adequate. Contrast extended to the pancreatic duct. The ? entire pancreatic duct was dilated. The pancreatic duct in the tail of ? the pancreas contained filling defects likely in keeping with stones. To ? find the object(s) the dorsal pancreatic duct was swept with an 8.5 mm ? balloon and basket starting at the pancreatic duct in the tail of the ? pancreas which only yielded debris. The suspected stones were in the ? upstream portion of the pancreatic duct in the tail, and a device could ? not be advanced to extract these stones. Procedural Details: ? The patient was seen, [...] oxygen saturations ? were monitored continuously. The [id number]-Q190V Duodenoscope was introduced ? under direct vision through the mouth, and used to inject contrast into ? the main pancreatic duct. The ERCP was accomplished without difficulty. ? The patient tolerated the procedure well. Estimated Blood Loss: ?None. Complications: ? None. 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 procedure, including non-owens portions. Jose Roberto Patterson MD 12/31/2023 3:31:22 PM This report has been signed electronically. Number of Addenda: 0 Jose Roberto Patterson M.D. GI PROCEDURE ORDERABLE S Final Result Performing Organization Address City/[facility] Co de Phone Number LONNIE CINTRON NA * Surgical Pathology (12/31/2023 2:29 PM CDT) 01/01/2024 2:28 PM CDT DTL Report electronically signed by Venecia Harris M.D., Ph.D. I verify that I have examined all relevant slides/materia ls for the specimen(s) and rendered or confirmed the diagnosis. 01/01/2024 2:28 PM CDT DTL Gross Description Received in formalin labeled with the patient's name, medical record number, and colon, left, right are seven pale miller-pink irregular softtissues, ranging from 0.2-0.4 cm in greatest dimension. ??The specimens are submitted en toto in cassette A1. ??Grossed by AJD. 01/01/2024 2:28 PM CDT DTL Interpretation FINAL DIAGNOSIS A. Colon, Left, Right, endoscopic biopsy: - Colonic mucosa without diagnostic abnormality - Negative for microscopic colitis Digital imaging was used in the diagnostic assessment of this case. 01/01/2024 2:28 PM CDT DTL Biopsy (Colon) 12/31/2023 2: 29 PM CDT Jose Roberto Patterson M.D. LAB SURG PATH ORDERABL ES Final Result Performing Organization Address City/[facility]/ZIP Co de Phone Number [facility] [address] [place] [address], [place] DTL [address] [place] [address] * FL Fluoro Less Than 1 Hour (12/31/2023 1:53 PM CDT) Narrative ERCP LOS RST - 12/31/2023 1:54 PM CDT This exam does not require a radiologist review or interpretation. Please refer to the patient's medical record on this date for clinical details. Jose Roberto Patterson M.D. IMG FLUOROSCOPY PROCED URES Final Result ERCP LOS RST * LDA ANE ENDOTRACHEAL AIRWAY (12/31/2023 1:24 PM CDT) Narrative Jasmin Durant APRN, CRNA - 12/31/2023 1:24 PM CDT Jasmin Durant APRN, CRNA ? 12/31/2023 ??1:36 PM Airway Date/Time: 12/31/2023 1:24 PM Performed by: Jasmin Durant APRN, CRNA Authorized by: Jasmin Durant APRN, CRNA ?? Patient location during procedure: OR / Procedure Area PROCEDURE DETAILS: Mask difficulty assessment: easy mask Final airway type: video laryngoscope Laryngeal Manipulation: no ?? Final best view of glottic structures - Cormack/Lehane Score: grade 1 ETT location: oral VL device: glide scope [place] scope blade size: 4 Tube size: 7 ETT distance at teeth/gum: [...] outcome: successful ?? Notable Events: no complications Jasmin Durant APRN, CRNA ANESTHESIA ORDE RABLES Final Result * MR Brain Multiple Sclerosis Without and [...] diffusion orabnormal enhancement to suggest active disease. us Lizzy SOMMERS MRI PROCEDURES Final Res ult * Optical Coherence Tomography - Optic Nerve [...] with prior episode of left optic neuritis us Lizzy Carrington M.D. OPHTH TOMOGRAPHY Final Resul t Performing Organization Address City/[facility]/ZIP Co de Phone Number OPHTHALMOLOGY IMAGING EXAM * Optical Coherence Tomography (OCT)-Ophthalmology Image Exam (11/01/2023 8:45 AM CDT) 11/01/2023 8:43 AM CDT Narrative IIM[facility] - 11/01/2023 8:53 AM CDT This order has been created and auto-finalized to support the import of images acquired without order. The clinical documentation to support these images can be found on the encounter that produced images. us Provider Not In System IMG NON RAD IMAGING PROCE DURES Final Result Performing Organization Address [facility] Co de Phone Number IIID NA * (ABNORMAL) Comprehensive Metabolic Panel (10/09/2023 11:27 [...] CDT Arturo Montalvo., M.S. LAB BLOOD ADD-ON F inal Result [facility] [address] [place] [address], [facility] [address] [place] [address] * (ABNORMAL) Hemoglobin A1c (02/19/2023 6:17 AM DESKTOP SUPPORT TECHNICIAN) Hemoglobin A1c, B 7.8(H) 4.0 - 5.6 % 02/19/2023 7:11 AM DESKTOP SUPPORT TECHNICIAN DTL Comment: Hemoglobin A1c values greater than or equal to 6.5 percent are diagnostic for diabetes mellitus. ??Diagnosis should be confirmed by repeat testing. ??In diabetic patients, HbA1c goals should be discussed with healthcare provider. Blood (Blood, Venous) 02/19/2023 6:17 AM DESKTOP SUPPORT TECHNICIAN 02/19/2023 6:33 AM DESKTOP SUPPORT TECHNICIAN us Luis Andrew M.D., M.P.H. LAB BLOOD ADD-ON Final Re sult Performing Organization Address [facility] Co de Phone Number [facility] [address] [place] [address], [facility] DTL [facility] [address] [place] [address] * (ABNORMAL) Lipid Panel (06/02/2014 6:51 AM DESKTOP SUPPORT TECHNICIAN) Calculated LDL Test Not Performed 100 - 129 MGDL POWERCHART Comment:LDL Calculated canno t be performed because the Triglyceride is > 400 mg/dL. A measured LDL has been ordered. Cholesterol, Total 169 0 - 200 MGDL POWERCHART Comment: <200 mg/dL Desirable 200-239 mg/dL Borderline High >239 mg/dL High HX HDL 46 35 - 60 MGDL POWERCHART Comment: > 60 mg/dL Desirable 40 ? 60 mg/dL Low Risk <40 mg/dL Undesirable Triglycerides 511(H) 9 - 150 MGDL POWERCHART Comment: <150 mg/dL Desirable 150-199 mg/dL Borderline High 200-499 mg/dL High > 499 Very High Total Cholesterol/HDL Ratio 4 POWERCHART HXLDL/HDL Not performed POWERCHART Blood 06/02/2014 6:51 AM DESKTOP SUPPORT TECHNICIAN us Kvng Mario III, M.D. LAB BLOOD ADD-ON Final Result Performing Organization Address [facility] Co de Phone Number POWERCHART * BI Breast Screening (05/11/2011 2:00 PM DESKTOP SUPPORT TECHNICIAN) Anatomical Region Laterality Modality Breast N/A Mammography 05/11/2011 2:00 PM DESKTOP SUPPORT TECHNICIAN Impressions 05/11/2011 2:46 PM DESKTOP SUPPORT TECHNICIAN NEGATIVE There is no mammographic evidence of malignancy. ?? RECOMMENDATION: A 1 year screening mammogram is recommended. ?? The patient will receive a letter notifying her of the results. ?? Justin Landa M.D. ? dla/penrad:05/11/2011 14:46:05 ?? letter sent: 1S/2S - Negative Screen ?? Mammogram BI-RADS: 1 Negative Electronically signed by: ?? Reba ??Syeda LOUIS ??[id number] 11-May-2011 14:46 Narrative 05/11/2011 2:46 PM DESKTOP SUPPORT TECHNICIAN 11-May-2011 14:00:00 ??Exam: B MG /Screening Exam [...] by: Reba Landa MD [id number] 11-May-2011 14:46 us Nathaly Breaux M.D. IMG BI PROCEDURES Final Result * (ABNORMAL) Microalbumin, Random, Urine (05/04/2011 12:00 PM DESKTOP SUPPORT TECHNICIAN) Creatinine, Random, U 74.9 30.0 - 125.0 MGDL POWERCHART HXU Albumin % 24.4 12.0 - 30.0 MGL POWERCHART Albumin/Creatin ine Ratio 33(H) 0 - 25 MGGM POWERCHART Urine 05/04/2011 12:0 0 PM DESKTOP SUPPORT TECHNICIAN us Nathaly Breaux M.D. LAB URINE ORDERAB LES Final Result POWERCHART * CT Chest with IV Contrast (03/13/2011 1:35 PM DESKTOP SUPPORT TECHNICIAN) Anatomical Region Laterality Modality Chest N/A Computed Tomogra phy 03/13/2011 1:35 PM DESKTOP SUPPORT TECHNICIAN Impressions 03/13/2011 1:56 PM DESKTOP SUPPORT TECHNICIAN No pulmonary emboli. FINDINGS: Suboptimal contrast bolus [...] [id number] 13-Mar-2011 13:56 Narrative 03/13/2011 1:56 PM DESKTOP SUPPORT TECHNICIAN 13-Mar-2011 13:35:00 ??Exam: CT CHEST w Indications: [...] 13-Mar-2011 13:56 Nathaly Breaux M.D. IMAscencion CT PROCEDURES Final Result from Last 3 Months or Most Recently Relevant to Health Maintenance Insurance HUMAN Advance Directives For more information, please contact: [phone] Documents on File Type Date Recorded Patient Diazo Technician Expl anation Advance Directives 09/17/2011 12:00 AM Leg acy document. See document viewer. * Full Code (Latest Code Status on File) Date Activated Date Inactivated Comments 10/23/2022 2:51 PM 10/25/2022 1:26 AM Question Answer Comments Full Code: Discussed Care Teams Museum Exhibit Technician Relationship Specialty Start Date End Date Elsewhere, Pcp PCP - General Internal Medicine 06/26/22
--- OUTSIDE RECORDS SUMMARY | 2024-01-27 13:19 | XMS_ITS | Clinical Summary ---
Author Organization [employer] [facility] [employer] [facility] Address [place], [place] [address] Care Team Providers Care Translator Deaf Name Role Phone Anne Esquivel LITHOGRAPHIC PRESS FEEDER Primary Care Provider [phone] Allergies Active Allergy Reactions Criticality Noted Date Comments Lactose GI Upset 10/16/2002 Nitrofurantoin Hives Medium 01/17/2010 Pollen Extracts Hives 02/02/2011 Prednisone Myalgia 07/03/2002 Sulfamethoxazole *Unknown 10/04/2010 Sulfamethoxazole-Trimethoprim Hives Medium 2009 Trimethoprim *Unknown 05/17/2021 Medications Medication Sig Dispensed Refills Start Date End Date Status DULoxetine (CYMBALTA) 30 mg Delayed-release capsule Take 30 mg by mouth at bedtime. Takes duloxetine 30 mg and 60 mg for a total nightly dose of 90 mg Active DULoxetine (CYMBALTA) 60 mg Delayed-release capsule Take 60 mg by mouth at bedtime. Takes duloxetine 60 mg and 30 mg for a total nightly dose of 90 mg Active montelukast (SINGULAIR) 10 mg tablet Take 10 mg by mouth at bedtime. Active multivitamins-mine rals-lutein (Centrum Silver) 0.4 mg-300 mcg- 250 mcg tab Take 1 Tablet by mouth at bedtime. Active ondansetron (ZOFRAN ODT) [address] 4 mg on the tongue 3 times daily if needed for Nausea/Vomiting. Active oxyCODONE (ROXICODONE) 5 mg immediate release tablet Take 5-10 mg by mouth every 6 hours if [...] CR tablet Take 10 mg by mouth at bedtime. Active polyethylene glycoL (MIRALAX) 17 gram/scoop powderIndications: Chronic, continuous use of opioids Mix 1 scoop (17 g) in liquid then take by mouth once daily if needed for Constipation. 510 g 01/09/20 23 Active cyclobenzaprine (FLEXERIL) 10 mg tablet Take 10 mg by mouth at bedtime. May take additional 10 mg BID prn Active simvastatin (ZOCOR) 40 mg tablet Take 40 mg by mouth at bedtime. Active fentaNYL (DURAGESIC) 12 mcg/hr transdermal patch Apply 1 Patch on dry, clean, hairless skin every 72 hours. 01/13/20 24 Active losartan (COZAAR) 50 mg tablet Take 50 mg by mouth at bedtime. 12/26/19 24 Active cholecalciferol, Vitamin D3, (Vitamin D-3) 2,000 unit tablet Take 2,000 units by mouth at bedtime. Active aspirin (ECOTRIN) 81 mg enteric coated tablet Take 81 mg by mouth at bedtime. Active varenicline (CHANTIX) 1 mg tablet Take 1 Tablet by mouth two times daily. 12/11/19 24 Active insulin glargine, U-100, (Lantus U-100 Insulin) 100 unit/mL injectionIndicatio ns:Type 2 diabetes mellitus with diabetic neuropathy, without long-term current use of insulin (HC) Inject 15 units subcutaneous every 12 hours. Product desired: LANTUS. Hold if blood sugar is less than 100 01/24/20 24 Active lidocaine 4 % topical patchIndications:A cute radicular low back pain Apply to intact skin to cover most painful area for max 12hr per 24hr period. 10 Patch 01/25/20 24 Active predniSONE (DELTASONE) 20 mg tabletIndications: Acute radicular low back pain Take 2 Tablets (40 mg) by mouth once daily with a meal. 6 Tablet 01/25/20 Active gabapentin (NEURONTIN) 300 mg capsuleIndications :Acute radicular low back pain Take 1 Capsule (300 mg) by mouth three times daily. 90 Capsule 01/24/20 Active insulin glargine, U-100, (Lantus U-100 Insulin) 100 unit/mL injection Inject 30 units subcutaneous two times daily. Product desired: LANTUS Discontinued losartan (COZAAR) 100 mg tablet Take 100 mg by mouth at bedtime. Discontinued(Ph armacist change per medication history (E-cancel not sent)) QUEtiapine (SEROQUEL) 100 mg tablet Take 100 mg by mouth at bedtime. Take with one 400 mg tablet for total dose of 500 mg. Discontinued(*P atient states no longer taking) apixaban (ELIQUIS) 5 mg tabletIndications: deep venous thrombosis Take 1 Tablet (5 mg) by mouth two times daily. 60 Tablet 09/22/19 Discontinued(*P atient states no longer taking) insulin lispro, U-100, (HUMALOG KWIKPEN; ADMELOG SOLOSTAR) 100 unit/mL inpn pen Inject 5 units subcutaneous three times daily with meals. INJECT 5 UNITS UNDER THE SKIN THREE TIMES A DAY FOR BLOOD SUGARS 200 OR HIGHER OR AT MEALTIME 10/09/19 Discontinued(*P atient states no longer taking) losartan (COZAAR) 100 mg tablet Take 100 mg by mouth once daily. Discontinued(*P atient states no longer taking) Active Problems Problem Noted Date Diagnosed Date Hypoglycemia 01/22/2024 Acute low back pain without sciatica 01/22/2024 Hypomagnesemia 09/22/2023 Acute bronchitis due to Rhinovirus 09/21/2023 TIA (transient ischemic attack) 09/21/2023 Bacteremia due to Gram-positive bacteria Hypokalemia 09/20/2023 Hyponatremia 09/20/2023 Acidosis 09/20/2023 Constipation [...] Encounters Date Type Department Care Team Description 01/22/2024 2:34 PM CDT - 01/24/2024 12:54 PM CDT Hospital Encounter [address] [address] Sid Villarreal MD Beardsley, Ayan Rivero, Latha Teague MD Lapham, Renae Ann, NP Cudak, Austin Christopher, DO Nguyen, Thao Nguyen Le, NP Acute radicular low back pain (Primary Dx); Hypoglycemia; Alteration of consciousness; Hypokalemia; Other problems related to housing and economic circumstances; Transportation insecurity; Low income; Type 2 diabetes mellitus with diabetic neuropathy, without long-term current use of insulin (HC); Acute low back pain without sciatica, unspecified back pain laterality Discharge Disposition: Home Self Care 01/22/2024 Travel from Last 3 Months Social History [...] Communication with Friends and Fami ly 0 01/22/2024 Financial Resource Strain Answer Date R ecorded Difficulty of Paying Living Expenses Not on file 09/20/2023 Difficulty of Paying Living Expenses 3 09/20/2023 Food Insecurity Answer Date Recorded Do you worry your food will run out before you are able to buy more? 1 01/22/2024 Transportation Needs Answer Date Record ed Lack of Transportation (Medical) 2 09/20/2023 Housing Stability Answer Date Recorded What is your housing situation today? 1 01/22/2024 Sex and Gender Information Value Date Recorded Sex Assigned at Not on file Gender Identity Not on file Sexual Orientation Not on file Obstetrics History Last Filed Vital Signs Vital Sign Reading Time Taken Comments Blood Pressure 164/72 01/24/2024 12:00 PM CDT Pulse 70 01/24/2024 12:00 PM CDT Temperature 36.9 ??C (98.4 ??F) 01/24/2024 12:00 PM C DT Respiratory Rate 18 01/24/2024 12:00 PM CDT Oxygen Saturation 95% 01/24/2024 12:00 PM CDT Inhaled Oxygen Concentration - - Weight 53.8 kg (118 lb 9.6 oz) 01/24/2024 6:23 A M CDT Height 160 cm (5' 3) 01/22/2024 2:40 PM CDT Body Mass Index 21.01 01/22/2024 2:40 PM CDT Plan of Treatment Health Maintenance [...] Name Priority Date/Time Associated Diagnosis Comments GLUCOSE METER Routine 01/24/2024 11:47 AM CDT GLUCOSE METER Routine 01/24/2024 6:28 AM CDT BASIC METABOLIC PANEL Early AM 01/24/2024 6:17 AM CDT MAGNESIUM Early AM 01/24/2024 6:17 AM CDT GLUCOSE METER Routine 01/24/2024 2:03 AM CDT GLUCOSE METER Routine 01/23/2024 9:21 PM CDT GLUCOSE METER Routine 01/23/2024 4:33 PM CDT GLUCOSE METER Routine 01/23/2024 11:16 AM CDT GLUCOSE METER Routine 01/23/2024 7:42 AM CDT HEMOGLOBIN A1C Add On 01/23/2024 7:27 AM CDT CBC W PLT NO DIFF Today 01/23/2024 7:2 7 AM CDT MAGNESIUM Timed 01/23/2024 7:27 AM CDT CREATININE Early AM 01/23/2024 5:45 AM CDT POTASSIUM Early AM 01/23/2024 5:45 AM CDT SODIUM Early AM 01/23/2024 5:45 AM CDT GLUCOSE METER Routine 01/23/2024 3:26 AM CDT GLUCOSE METER Routine 01/22/2024 9:26 PM CDT POTASSIUM Timed 01/22/2024 8:41 PM CDT GLUCOSE METER Routine 01/22/2024 6:33 PM CDT URINALYSIS MICROSCOPIC STAT 01/22/2024 6:06 PM CDT UA W/ SEDIMENT EXAM REFLEXED PER CRITERIA STAT 01/22/2024 6:06 PM CDT GLUCOSE METER Routine 01/22/2024 5:56 PM CDT GLUCOSE METER Routine 01/22/2024 5:10 PM CDT GLUCOSE METER Routine 01/22/2024 4:34 PM CDT GLUCOSE METER Routine 01/22/2024 4:05 PM CDT MAGNESIUM [place] 01/22/2024 3:51 PM CDT HEPATIC FUNCTION PANEL [place] 01/22/2024 3:51 PM CDT BASIC METABOLIC PANEL STAT 01/22/2024 3:51 PM CDT GLUCOSE METER Routine 01/22/2024 3:25 PM CDT EKG 12 LEAD STAT 01/22/2024 3:04 PM CDT GLUCOSE METER Routine 01/22/2024 2:42 PM CDT LIPID PANEL [place] 09/20/2023 5:02 PM CDT from Last 3 Months or Most Recently Relevant to Health Maintenance Results * (ABNORMAL) GLUCOSE METER (01/24/2024 11:47 AM CDT) Only the most recent of16 resultswithin the time period is included. [facility] GLUCOSE METER 258(H) 65 - 100 mg/dL 01/24/2024 11:51 AM T [facility] Blood BLOOD SPECIMEN / Unknown 01/24/2024 11:47 AM CDT 01/24/2024 11:51 AM CDT Jose Nguyen DO CHEMISTRY Performing Organization Address [facility]/ZIP Co de Phone Number [facility] [address] [place] [address] * MAGNESIUM (01/24/2024 6:17 AM CDT) Only the most recent of3 resultswithin the time period is included. [facility] MAGNESIUM 2.1 1.6 - 2.4 mg/dL 01/24/2024 6:58 AM T [facility] Blood BLOOD SPECIMEN / Unknown Butterfly / Unknown 01/24/2024 6:17 AM CDT 01/24/2024 6:27 AM CDT Gloria Chavez NP CHEMISTRY Performing Organization Address [facility] Co de Phone Number [facility] [address] [place] [address] * (ABNORMAL) Basic metabolic panel AM (01/24/2024 6:17 AM CDT) Only the most recent of2 resultswithin the time period is included. [facility] SODIUM 139 136 - 145 mmol/L 01/24/2024 6:50 AM [facility] POTASSIUM 4.2 3.5 - 5.1 mmol/L 01/24/2024 6:50 AM [facility] CHLORIDE 104 98 - 107 mmol/L 01/24/2024 6:50 AM [facility] CO2,TOTAL 28 22 - 29 mmol/L 01/24/2024 6:50 AM [facility] ANION GAP 7 5 - 18 01/24/2024 6:50 AM [facility] GLUCOSE 246(H) 70 - 99 mg/dL 01/24/2024 6:50 AM CDT [facility] CALCIUM 9.4 8.8 - 10.2 mg/dL 01/24/2024 6:50 AM CDT [facility] BUN 23 8 - 23 mg/dL 01/24/2024 6:50 AM CDT [facility] CREATININE 0.73 0.50 - 0.90 mg/dL 01/24/2024 6:50 AM T [facility] BUN/CREAT RATIO 32(H) - 6:50 AM T [facility] eGFR 89(L) >90 mL/min/1.7 3m2 01/24/2024 6:50 AM T [facility] Comment:As of 2021, eG FR is calculated by the CKD-EPI creatinine equation without race adjustment. ??eGFR can be influenced by muscle mass, exercise, and diet. ??The reported eGFR is an estimation only and is only applicable if the renal function is stable. Blood BLOOD SPECIMEN / Unknown Butterfly / Unknown 01/24/2024 6:17 AM CDT 01/24/2024 6:27 AM CDT Latha Rodriguez MD CHEMISTRY [facility] [address] [place] [address] * (ABNORMAL) Screening hemoglobin A1c FOR ADD ON (01/23/2024 7:27 AM CDT) HEMOGLOBIN A1C SCREENING 8.8(H) <=6.4 % 01/23/2024 3:30 PM CDT [facility] Blood BLOOD SPECIMEN / Unknown Butterfly / Unknown 01/23/2024 7:27 AM CDT 01/23/2024 7:43 AM CDT Narrative [facility] - 01/23/2024 3:30 PM CDT ? (<5.7%) ?Normal ? (5.7% to 6.4%) ? Indicates prediabetes ? (>=6.5%) ? Confirms diabetes Falsely low levels may be seen with: Recent Transfusion, Recent Significant Blood Loss, Hemolytic Diseases, or Falsely elevated levels may be seen with: Untreated Anemias, Splenectomy Latha Rodriguez MD CHEMISTRY [facility] [address] [place] [address] * (ABNORMAL) CBC no diff TODAY (01/23/2024 7:27 AM [facility]) WHITE BLOOD COUNT 8.1 4.5 - 11.0 thou/cu mm 01/23/2024 7:47 AM [facility] RED BLOOD COUNT 3.92(L) 4.00 - 5.20 mil/cu mm 01/23/2024 7:47 AM [facility] HEMOGLOBIN 12.9 12.0 - 16.0 g/dL 01/23/2024 7:47 AM [facility] HEMATOCRIT 36.5 33.0 - 51.0 % 01/23/2024 7:47 AM [facility] MCV 93 80 - 100 fL 01/23/2024 7:47 AM [facility] MCH 32.9 26.0 - 34.0 pg 01/23/2024 7:47 AM [facility] MCHC 35.3 32.0 - 36.0 g/dL 01/23/2024 7:47 AM [facility] RDW 11.4(L) 11.5 - 15.5 % 01/23/2024 7:47 AM [facility] PLATELET COUNT 328 140 - 440 thou/cu mm 01/23/2024 7:47 AM [facility] MPV 10.0 6.5 - 11.0 fL 01/23/2024 7:47 AM [facility] Blood BLOOD SPECIMEN / Unknown Butterfly / Unknown 01/23/2024 7:27 AM CDT 01/23/2024 7:43 AM CDT Latha Rodriguez MD HEMATOLOGY Performing Organization Address City/[facility]/ZIP Co de Phone Number [facility] [address] [place] [address] * SODIUM (01/23/2024 5:45 AM CDT) SODIUM 137 136 - 145 mmol/L 01/23/2024 7:36 AM CDT [facility] Blood BLOOD SPECIMEN / Unknown Butterfly / Unknown 01/23/2024 5:45 AM CDT 01/23/2024 6:19 AM CDT Ayan Maddox NP CHEMISTRY Performing Organization Address [facility] de Phone Number [facility] [address] [place] [address] * POTASSIUM (01/23/2024 5:45 AM CDT) Only the most recent of2 resultswithin the time period is included. POTASSIUM 4.0 3.5 - 5.1 mmol/L 01/23/2024 7:36 AM CDT [facility] Blood BLOOD SPECIMEN / Unknown Butterfly / Unknown 01/23/2024 5:45 AM CDT 01/23/2024 6:19 AM CDT Ayan Maddox NP CHEMISTRY Performing Organization Address [facility] Co de Phone Number [facility] [address] [place] [address] * CREATININE (01/23/2024 5:45 AM CDT) eGFR >90 >90 mL/min/1.7 3m2 01/23/2024 7:36 AM CDT [facility] Comment:As of 2021, eG FR is calculated by the CKD-EPI creatinine equation without race adjustment. ??eGFR can be influenced by muscle mass, exercise, and diet. ??The reported eGFR is an estimation only and is only applicable if the renal function is stable. CREATININE 0.64 0.50 - 0.90 mg/dL 01/23/2024 7:36 AM CDT [facility] Blood BLOOD SPECIMEN / Unknown Butterfly / Unknown 01/23/2024 5:45 AM CDT 01/23/2024 6:19 AM CDT Ayan Maddox NP CHEMISTRY Performing Organization Address City/[facility]/ZIP Co de Phone Number [facility] [address] [place] [address] * (ABNORMAL) URINALYSIS MICROSCOPIC (01/22/2024 6:06 PM CDT) RBC 11-25(A) 0-2, None Seen /HPF 01/22/2024 6:26 PM T [facility] WBC 0-2 0-2, 3-5, None Seen /HPF 01/22/2024 6:26 PM [facility] BACTERIA Few None Seen, Rare, Few Bacteria/ HPF 01/22/2024 6:26 PM T [facility] EPITHELIAL CELLS Few None Seen, Few Epi/HPF 01/22/2024 6:26 PM T [facility] Mucus Present 01/22/2024 6:26 PM T [facility] CALCIUM OXALATE CRYSTALS Present(A) (none) 01/22/2024 6:26 PM CDT [facility] Urine URINE SPECIMEN / Unknown Non-Blood / Unknown 01/22/2024 6:06 PM CDT 01/22/2024 6:09 PM CDT Sid Villarreal MD URINE Performing Organization Address City/[facility]/ZIP Co de Phone Number [facility] [address] [place] [address] * (ABNORMAL) UA W/ SEDIMENT EXAM REFLEXED PER CRITERIA (01/22/2024 6:06 PM CDT) COLOR Yellow Yellow Color 01/22/2024 6:21 PM T [facility] CLARITY Clear Clear Clarity 01/22/2024 6:21 PM [facility] SPECIFIC GRAVITY,URINE 1.025 1.010, 1.015, 1.020, 1.025 01/22/2024 6:21 PM [facility] PH,URINE 5.5 6.0, 7.0, 8.0, 5.5, 6.5, 7.5, 8.5 01/22/2024 6:21 PM [facility] UROBILINOGEN, QUALITATIVE Normal Normal EU/dl 01/22/2024 6:21 PM [facility] PROTEIN, URINE Negative Negative mg/dL 01/22/2024 6:21 PM [facility] GLUCOSE, URINE 100(A) Negative mg/dL 01/22/2024 6:21 PM [facility] KETONES,URINE Negative Negative mg/dL 01/22/2024 6:21 PM [facility] BILIRUBIN,URI NE Negative Negative 01/22/2024 6:21 PM [facility] OCCULT BLOOD,URINE Large(A) Negative 01/22/2024 6:21 PM [facility] NITRITE Negative Negative 01/22/2024 6:21 PM [facility] LEUKOCYTE ESTERASE Negative Negative 01/22/2024 6:21 PM [facility] Urine URINE SPECIMEN / Unknown Non-Blood / Unknown 01/22/2024 6:06 PM CDT 01/22/2024 6:09 PM CDT Sid Villarreal MD URINE [facility] [address] [place] [address] * (ABNORMAL) HEPATIC FUNCTION PANEL (01/22/2024 3:51 PM CDT) ALBUMIN 4.2 4.0 - 4.9 g/dL 01/22/2024 5:00 PM CDT [facility] PROTEIN,TOTAL 6.8 6.0 - 8.0 g/dL 01/22/2024 5:00 PM CDT [facility] BILIRUBIN,TOTAL 0.2 0.0 - 1.2 mg/dL 01/22/2024 5:00 PM CDT [facility] BILIRUBIN,DIRECT 0.1 0.0 - 0.2 mg/dL 01/22/2024 5:00 PM CDT [facility] ALK PHOSPHATASE 115(H) 35 - 104 IU/L 01/22/2024 5:00 PM CDT [facility] ALT (SGPT) 25 10 - 35 IU/L 01/22/2024 5:00 PM CDT [facility] AST (SGOT) 21 10 - 35 IU/L 01/22/2024 5:00 PM CDT [facility] Blood BLOOD SPECIMEN / Unknown Butterfly / Unknown 01/22/2024 3:51 PM CDT 01/22/2024 3:55 PM CDT Sid Villarreal MD CHEMISTRY Performing Organization Address City/[facility]/ZIP Co de Phone Number [facility] [address] [place] [address] * EKG 12 LEAD (01/22/2024 3:04 PM CDT) Interpretation Normal sinus rhythm Normal ECG When compared with ECG of 21-Sep-2023 06:28, Non-specific change in ST segment in Anterior leads BEYOND NOW Ventricular Rate 63 BPM BEYOND NOW Atrial Rate 63 BPM BEYOND NOW P-R Interval 148 ms BEYOND NOW QRS Duration 92 ms BEYOND NOW QT 448 ms BEYOND NOW QTc 458 ms BEYOND NOW P [place] 24 degrees BEYOND NOW R [place] 58 degrees BEYOND NOW T [place] 64 degrees BEYOND NOW 01/22/2024 3:04 PM CDT 01/22/2024 5:24 PM CDT Sid Villarreal MD EKG ORD BEYOND NOW [place], [place] * LIPID PANEL (09/20/2023 5:02 PM CDT) CHOLESTEROL,TOTAL 104 100 - 199 mg/dL 09/20/2023 9:07 PM T [facility] Comment: Cholesterol, Total Reference Ranges Desirable <200 mg/dL Borderline 200-239 mg/dL High >=240 mg/dL TRIGLYCERIDES 79 <150 mg/dL 09/20/2023 9:07 PM CDT [facility] HDL CHOLESTEROL 52 >40 mg/dL 9:07 PM CDT [facility] NON-HDL CHOLESTEROL 52 <145 mg/dl 09/20/2023 9:07 PM T [facility] CHOL/HDL RATIO 2.00 <4.50 09/20/2023 9:07 PM T [facility] LDL CHOLESTEROL 36 <=130 mg/dL 09/20/2023 9:07 PM T [facility] VLDL CHOLESTEROL 16 <=30 mg/dL 09/20/19 24 9:07 PM T [facility] Blood BLOOD SPECIMEN / Unknown Butterfly / Unknown 09/20/2023 5:02 PM CDT 09/20/2023 5:05 PM CDT Alba Carmen LITHOGRAPHIC PRESS FEEDER CHEMISTRY [facility] [address] [place] [address] from Last 3 Months or Most Recently Relevant to Health Maintenance Advance Directives Documents on File Type Date Recorded 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
--- OUTSIDE RECORDS SUMMARY | 2024-01-27 13:19 | XMS_ITS | Encounter Summary ---
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 The clinical documentation to support these images can be found on the encounter that produced images. us Provider Not In System IMG NON RAD IMAGING PROCE DURES Final Result [facility] NA documented in this encounter Visit Diagnoses Not on filedocumented in this encounter Additional Health Concerns Assessment Noted Time PHQ-9 Depression Total Score: 21 03/02/2 012 10:33 AM CONCRETE BATCH PLANT OPERATOR documented as of this encounter Care Teams Boatwright Relationship Specialty Start Date End Date Elsewhere, Pcp PCP - General Internal Medicine 06/26/22 documented as of this encounter
--- OUTSIDE RECORDS SUMMARY | 2024-01-27 13:19 | XMS_ITS | Encounter Summary ---
Author Organization [facility] Address [address] [place] [address] Care Team Providers Care Personnel Clerk Name Role Phone Elsewhere, Pcp Primary Care Provider Unavailabl e Encounter Details Date Type Department Care Team (Latest Contact Info) Description 12/31/2023 3:05 PM CDT Ancillary Procedure Department [...] your living situation today? 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 Gender Identity Female 01/01/2023 9:08 AM CDT Sexual Orientation Straight 01/01/2023 9: 08 AM CDT documented as of this encounter Plan of Treatment Not on file documented as of this encounter Procedures Procedure Name Priority Date/Time Associated Diagnosis Comments GASTROENTEROLOGY IMAGE EXAM Routine 12/31/2023 3:05 PM CDT documented in this encounter Results * ERCP-Gastroenterology Image Exam (12/31/2023 3:05 PM CDT) 12/31/2023 3:03 PM CDT Narrative [facility] - 12/31/2023 3:38 PM CDT This order has been created [...] Total Score: 21 03/02/2 012 10:33 AM ASSOCIATE PROFESSOR OF ART documented as of this encounter Care Teams Personnel Clerk Relationship Specialty Start Date End Date Elsewhere, Pcp PCP - General Internal Medicine 06/26/22 documented as of this encounter
--- OUTSIDE RECORDS SUMMARY | 2024-01-27 13:19 | XMS_ITS | Referral Summary ---
Author Organization [facility] Address [address] [place] [address] Care Team Providers Care Family Literacy Coordinator Name Role Phone Elsewhere, Pcp Primary Care Provider Unavailabl e Source Comments Patient records contain information from all sites at [facility]. For routine questions regarding patient records, call [phone] during business hours, M-F 8:00 AM - 5:00 PM Central Time. Record requests for emergency care only can be directed to [phone] at any time.[facility] Encounters Date Type Department Care Team Description 01/01/2024 Orders Only Division of Gastroenterology in [address] [phone] Jose Roberto Patterson M.D. Pancreatitis Chronic (HCC) (Primary Dx) 12/31/2023 3:15 PM CDT Ancillary Procedure Department of Gastroenterology 12/31/2023 3:05 PM CDT Ancillary Procedure Department of Gastroenterology 12/31/2023 1:12 PM CDT Anesthesia Event Division of Gastroenterology in [address] [phone] Jasmin Durant APRN, NABOR 12/31/2023 12:21 PM CDT - 12/31/2023 11:59 PM CDT Hospital Encounter Department of Radiology, [facility] in [place], [place] [address] [place] [phone] Jose Roberto Patterson M.D. Discharge Disposition: Home or Self Care 12/31/2023 12:09 PM CDT - 12/31/2023 4:26 PM CDT Hospital Encounter Division of Gastroenterology in [place], [place] [address] [place] [phone] Jose Roberto Patterson M.D. Pain Abdominal Chronic; Loss Weight Discharge Disposition: Home or Self Care 12/30/2023 Nurse Triage Division of [facility], [facility] in [place], [place] [address] [place] [phone] Molly Armstrong R.N. Blood Sugar Problem 12/30/2023 9:45 AM CDT Clinical Communication Virtual Review in [place], [place] [address] [place] [address] Pre-visit Intake 12/05/2023 Clinical Communication Division of Gastroenterology in [place], [place] [address] [place] [phone] Jose Roberto Patterson M.D. 11/15/2023 1:00 PM CDT Comprehensive Visit Department of Neurology in [address] [phone] Andre Crouch M.D. Keegan, B. Mark, M.D. Multiple Sclerosis (HCC) (Primary Dx); Transient Ischemic Attack; Abuse Tobacco Smoking 11/01/2023 8:45 AM CDT Ancillary Procedure Department of Ophthalmology 11/01/2023 8:45 AM CDT Ancillary Procedure Department of Ophthalmology in [place], [place] [address] [place] [phone] Lizzy Carrington M.D. Multiple Sclerosis (HCC); Demyelinating Disease Central Nervous System (HCC) 11/01/2023 9:05 AM CDT - 11/01/2023 11:59 PM CDT Hospital Encounter Department of Radiology, [facility] in [place], [place] [address] [place] [phone] Lizzy Carrington M.D. Multiple Sclerosis ([facility]) Discharge Disposition: Home or Self Care from [...] (three) times a day. for testing 07/26/19 23 Active cyclobenzaprine (FLEXERIL) 10 mg tablet [...] needed for pain. For 30 days. Active [id number]-[id number]-C (MoviPrep) 100-7.5-2.691 gram kitIndications:Los s Weight,Pain Abdominal [...] NAUSEA AND VOMITING FOR 3 DAYS 09/18/19 23 024 Discontin ued(Thera py completed ) insulin [...] your living situation today? 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 at [facility] Explanted:Qty : 1 on 07/08/2023 by Jose Roberto Hays M.D. at [facility] 03/12/2026 [id number] / / [id number] Description:8.5 x 12 [facility] Wdg 10fx22 - [id number] Implanted:Qty : 1 on 07/08/2023 by Jose Roberto Hays M.D. at [facility] Explanted:Qty : 1 on 12/31/2023 at [facility] Pancreatic Stent [employer] 05/29/2026 [id number] / / [id number] Procedures Procedure Name Priority Date/Time Associated Diagnosis [...] A1C, B Routine 02/19/2023 6:1 7 AM CLEANING AND MAINTENANCE WORKER LIPID PANEL, S Routine 06/02/2014 6:51 AM CLEANING AND MAINTENANCE WORKER BI BREAST SCREENING UNILATERAL Routine 05/11/2011 2:00 PM CLEANING AND MAINTENANCE WORKER ALBUMIN, RANDOM, U Routine 05/04/2011 12:00 PM CLEANING AND MAINTENANCE WORKER CT CHEST WITH IV CONTRAST Routine 03/13/2011 1:35 PM CLEANING AND MAINTENANCE WORKER from Last 3 Months or Most Recently [...] LAB POCT ORDERABLES-MANUAL Juli l Result POC [facility] [address] [place] [address], [facility] POC [address] [place] [address] * Colonoscopy-Gastroenterology Image Exam (12/31/2023 3:15 PM [...] NON RAD IMAGING PROCE DURES Final Result IIID NA * Colonoscopy (12/31/2023 3:12 PM CDT) 12/31/2023 3:12 PM CDT Impressions [employer] - 12/31/2023 3:32 PM CDT Post-op Diagnoses: ? - No gross lesions identified, however, given poor preparation small ? lesions and polyps cannot be ruled out. ? - Biopsies were obtained in the descending colon and in the ascending ? colon to rule out microscopic colitis. ? - Hemorrhoids found on perianal exam. Narrative [employer] [employer] - 12/31/2023 3:32 PM CDT Kev [...] preparation was evaluated ? using the BBPS ([place] Bowel Preparation Scale) with scores of: Right [...] ? No immediate complications. 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 procedure, including non-owens portions. Jose Roberto Patterson MD 12/31/2023 3:32:34 PM This report has been signed electronically. Number of Addenda: 0 us Jose Roberto Patterson M.D. GI PROCEDURE ORDERABLE S Final Result [facility] [facility] [employer] NA * ERCP (12/31/2023 3:03 PM CDT) 12/31/2023 3:03 PM CDT Impressions [employer] - 12/31/2023 3:31 PM CDT Post-op Diagnoses: ? - Chronic pancreatitis, improved appearance of stricture and pancreatic ? stone burden ? - Previously placed stent was removed ? - Possible stones identified today not extracted will likely pass ? spontaneously given dilated duct and pancreatic sphincterotomy. N[facility]ative [facility] - 12/31/2023 3:31 PM CDT Kev 6 [...] A pancreatic stent was visible on the reaming press operator film. The esophagus was ? successfully intubated [...] ?None. Complications: ? None. 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 procedure, including non-owens portions. Jose Roberto Patterson MD 12/31/2023 3:31:22 PM This report has been signed electronically. Number of Addenda: 0 us Jose Roberto Patterson M.D. GI PROCEDURE ORDERABLE S Final Result Performing Organization Address City/State/[facility] Co de Phone Number [facility] NA * Surgical Pathology (12/31/2023 2:29 PM [...] en toto in cassette A1. ??Grossed by ANUP. 01/01/2024 2:28 PM CDT DTL Interpretation FINAL DIAGNOSIS A. Colon, Left, Right, endoscopic biopsy: - Colonic mucosa without diagnostic abnormality - Negative for microscopic colitis Digital imaging was used in the diagnostic assessment of this case. 01/01/2024 2:28 PM CDT DTL Biopsy (Colon) 12/31/2023 2: 29 PM CDT Jose Roberto Patterson M.D. LAB SURG PATH ORDERABL ES Final Result Performing Organization Address City/[facility] Co de Phone Number [facility] [address] [place] [address], [facility] DTL [address] [place] [address] * FL Fluoro Less Than 1 Hour (12/31/2023 1:53 PM CDT) Narrative [facility] - 12/31/2023 1:54 PM CDT This exam does not require a radiologist review or interpretation. Please refer to the patient's medical record on this date for clinical details. Jose Roberto Patterson M.D. IMG FLUOROSCOPY PROCED URES Final Result Performing Organization Address [facility] Co de Phone Number [facility] * LDA ANE ENDOTRACHEAL AIRWAY (12/31/2023 1:24 PM CDT) Narrative Jasmin Durant, POLARITY TESTER, EXCELSIOR MACHINE TENDER - 12/31/2023 1:24 PM CDT Jasmin Durant, POLARITY TESTER, EXCELSIOR MACHINE TENDER ? 12/31/2023 ??1:36 PM Airway Date/Time: 12/31/2023 1:24 PM Performed by: Jasmin Durant, POLARITY TESTER, EXCELSIOR MACHINE TENDER Authorized by: Jasmin Durant, POLARITY TESTER, EXCELSIOR MACHINE TENDER ?? Patient location during procedure: OR / Procedure Area PROCEDURE DETAILS: Mask difficulty assessment: easy mask Final airway type: video laryngoscope Laryngeal Manipulation: no ?? Final best view of glottic structures - Cormack/Lehane Score: grade 1 ETT location: oral VL device: glide scope Wild Rose scope blade size: 4 Tube size: 7 [...] outcome: successful ?? Notable Events: no complications us Kissenger O Anusionwu POLARITY TESTER, EXCELSIOR MACHINE TENDER ANESTHESIA ORDE RABRYAN Final Result * MR Brain Multiple Sclerosis [...] enhancement to suggest active disease. us Lizzy Carrington M.D. IMG MRI PROCEDURES Final Res ult * Optical [...] Carrington M.D. OPHTH TOMOGRAPHY Final Resul t OPHTHALMOLOGY IMAGING EXAM * Optical Coherence Tomography [...] In System IMG NON RAD IMAGING PROCE VISHAL Final Result [facility] NA * (ABNORMAL) Comprehensive Metabolic Panel (10/09/2023 [...] CDT Arturo Juan, M.S. LAB BLOOD ADD-ON F inal Result Performing Organization Address City/[facility] Co de Phone Number [facility] [address] [place] [address] * (ABNORMAL) Hemoglobin A1c (02/19/2023 6:17 AM CLEANING AND MAINTENANCE WORKER) [facility] Hemoglobin A1c, B 7.8(H) 4.0 - 5.6 % 02/19/2023 7:11 AM CLEANING AND MAINTENANCE WORKER DTL Comment: Hemoglobin A1c values greater than or equal to 6.5 percent are diagnostic for diabetes mellitus. ??Diagnosis should be confirmed by repeat testing. ??In diabetic patients, HbA1c goals should be discussed with healthcare provider. Blood (Blood, Venous) 02/19/2023 6:17 AM CLEANING AND MAINTENANCE WORKER 02/19/2023 6:33 AM CLEANING AND MAINTENANCE WORKER Luis Andrew M.D., M.P.H. LAB BLOOD ADD-ON Final Re sult Performing Organization Address City/[facility]/ZIP Co de Phone Number [facility] [address] [place], [place] [id number] [place] [address] [place] [address] * (ABNORMAL) Lipid Panel (06/02/2014 6:51 AM CLEANING AND MAINTENANCE WORKER) [facility] Calculated LDL Test Not Performed 100 - [...] Not performed POWERCHART Blood 06/02/2014 6:51 AM CLEANING AND MAINTENANCE WORKER Kvng Mario III, M.D. LAB BLOOD ADD-ON Final Result POWERCHART * BI Breast Screening (05/11/2011 2:00 PM CLEANING AND MAINTENANCE WORKER) Anatomical Region Laterality Modality Breast N/A Mammography 05/11/2011 2:00 PM CLEANING AND MAINTENANCE WORKER Impressions 05/11/2011 2:46 PM CLEANING AND MAINTENANCE WORKER NEGATIVE There is no mammographic evidence of malignancy. ?? RECOMMENDATION: A 1 year screening mammogram is recommended. ?? The patient will receive a letter notifying her of the results. ?? Justin Landa M.D. ? dla/penrad:05/11/2011 14:46:05 ?? letter sent: 1S/2S - Negative Screen ?? Mammogram BI-RADS: 1 Negative Electronically signed by: ?? Reba ??Syeda LOUIS ??[id number] 11-May-2011 14:46 Narrative 05/11/2011 2:46 PM CLEANING AND MAINTENANCE WORKER 11-May-2011 14:00:00 ??Exam: B MG /Screening Exam [...] Negative Electronically signed by: Reba Landa MD [id number] 11-May-2011 14:46 us Nathaly Breaux M.D. IMG BI PROCEDURES Final Result * (ABNORMAL) Microalbumin, Random, Urine (05/04/2011 12:00 PM CLEANING AND MAINTENANCE WORKER) Creatinine, Random, U 74.9 30.0 - 125.0 MGDL POWERCHART HXU Albumin % 24.4 12.0 - 30.0 MGL POWERCHART Albumin/Creatin ine Ratio 33(H) 0 - 25 MGGM POWERCHART Urine 05/04/2011 12:0 0 PM CLEANING AND MAINTENANCE WORKER us Nathaly Breaux M.D. LAB URINE ORDERAB LES Final Result POWERCHART * CT Chest with IV Contrast (03/13/2011 1:35 PM CLEANING AND MAINTENANCE WORKER) Anatomical Region Laterality Modality Chest N/A Computed Tomogra phy 03/13/2011 1:35 PM CLEANING AND MAINTENANCE WORKER Impressions 03/13/2011 1:56 PM CLEANING AND MAINTENANCE WORKER No pulmonary emboli. 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 See document viewer. * Full Code (Latest Code Status on File) Date Activated Date Inactivated Comments 10/23/2022 2:51 PM 10/25/2022 1:26 AM Question Answer Comments Full Code: Discussed Care Teams Family Literacy Coordinator Relationship Specialty Start Date End Date Elsewhere, Pcp PCP - General Internal Medicine 06/26/22
--- OUTSIDE RECORDS SUMMARY | 2024-01-27 13:19 | XMS_ITS | Encounter Summary ---
Author Organization [facility] Address [address] [place] [address] Care Team Providers Care Registered Mail Clerk Name Role Phone Elsewhere, Pcp Primary Care Provider Unavailabl e Encounter Details Date Type Department Care Team (Late st Contact Info) Description 12/31/2023 1:12 PM CDT Anesthesia Event Division of Gastroenterology in [place], [place] [address] [place] [phone] Jasmin Durant APRN AIR TRAFFIC CONTROL MANAGER [address] [place] [phone] Anesthesia Record Procedure Summary Procedure Name Responsible Anesthesiologist Anesthesia Start Time Anesthesia Stop Time ERCP Jasmin Durant APRN, CRNA 12/31/23 1312 12/31/23 1451 Events Date Time Event Comment 12/31/2023 1309 1312 An Start Machine/Equipme nt Checked Infection Precautions Followed Procedure/Site Verified NPO Status Verified Supine Standard ASA Monitors Applied 1319 An Induction 1324 An Intubation 1324 Turnover to Proceduralist 1331 Proc Start 1434 Proc Fin 1437 Turnover to ANE Staff 1438 Airway Removal Criteria Met 1438 Extubation/Airway Removed 1446 an stop data 1451 An End I completed my handoff to [...] mcg/mL 50 mcg lidocaine 2% (mg) injection 80 mg rocuronium 10 mg/mL injection 50 mg phenylephrine 100 mcg/mL injection 300 m cg ondansetron 4 mg/2 mL injection 4 mg sugammadex 100 mg/mL injection 120 mg propofol 10 mg/mL infusion 429.64 mg propofol 10 mg/mL injection 150 mg dextrose 50 % injection 12.5 g 12.5 g Lactated Ringers Free Drip 400 mL * Agents No agents on file. * Blood No blood administrations on file. Lines, Drains, and Airways Type Details Placement Removal Peripheral IV Placement Date: 04/24; Placement Time: 1300; Catheter Size: 20 G; Orientation: Anterior, Lower, Right; Location: Forearm; Site Prep: Alcohol; Inserted by: AVA Weeks; Removal Date: 12/31/23; Removal Time: 1614; Removal Reason: Patient discharged 12/31/23 1300 by Desi Rousseau RCarlosNCarlos 12/31/23 1614 by Elizabeth Adam R.N. ETT Placement Date: 04/24; Placement Time: 1324 (created via procedure documentation); Mask Ventilation: Easy mask; Technique: Video laryngoscopy; Type: Standard ETT; Single Lumen Tube Size: 7 mm; Cuffed: Yes; Location: Oral; Grade View: Grade 1; Insertion Attempts: 1; Placement Verification: Bilateral breath sounds, Positive ETCO2, Symmetrical chest wall movement; Removal Date: 12/31/23; Removal Time: 1438 12/31/23 1324 by Jasmin Durant APRN, CRNA 12/31/23 1438 by Jasmin Durant APRN, CRNA documented in this encounter Social [...] [facility] 01/01/2023 Comments No Sex and Gender Information Value Date Recorded Sex Assigned at Female 01/01/2023 9:08 AM CDT 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 Responsible Provider: Jasmin Durant APRN, CRNA Anesthesia Type: general ASA Status: 3 Anesthesia Type: general Last vitals Vitals Value Taken Time BP 169/81 12/31/23 1455 Temp 36.4 ??C 12/31/23 1450 Pulse 69 12/31/23 1458 Resp 19 12/31/23 1458 SpO2 100 % 12/31/23 1458 Vitals shown include unfiled device data. Please reference Vitals flowsheet for most recent vital signs. Anesthesia Post Evaluation Patient Disposition: dismissal Cardiovascular status: hemodynamics (HR & BP) acceptable Respiratory status: patent airway with spontaneous effort Temperature: normothermic Oxygen requirements: room air Level of consciousness: awake Pain score: pain adequately controlled and/or at baseline Post Op nausea/vomiting: none Hydration status: euvolemic Notable Events No notable events documented. * Anesthesia Procedure Notes - Jasmin Durant APRN, CRNA - 12/31/2023 1:33 PM CDTAssociated Order(s): Airway Airway Date/Time: 12/31/2023 1:24 PM Performed by: Jasmin Durant APRN, CRNA Authorized by: Jasmin Durant APRN, CRNA Patient location during procedure: OR / Procedure Area PROCEDURE DETAILS: Mask difficulty assessment: easy mask Final airway type: video laryngoscope Laryngeal Manipulation: no Final best view of glottic structures - Cormack/Lehane Score: grade 1 ETT location: oral VL device: glide scope [place] scope blade size: 4 Tube size: 7 [...] no complications * Anesthesia Preprocedure Evaluation - Jasmin Durant APRN, CRNA - 12/31/2023 1:07 PM CDT Preprocedure Anesthesia & H&P Assessment Procedure Summary Date/Time: 12/31/23 1245 Scheduled providers: Jose Roberto Patterson M.D. Procedures: ERCP COLONOSCOPY Diagnosis: Pain Abdominal Chronic [R10.9] Loss Weight [R63.4] Pain Abdominal Chronic [R10.9] Loss Weight [R63.4] Location: Division of Gastroenterology in [place], [place] Pertinent components of the patient's history [...] Disease NOS Nervous (+) Multiple Sclerosis (HCC) Endocrine/Metabolic (+) Diabetes Mellitus Type 2 (HCC) Psychiatric (+) Bipolar Disorder (HCC) OBJECTIVE PHYSICAL EXAMINATION Airway (HEENT) Mallampati: II TM Distance: >3 FB Neck ROM: Full Mouth Opening: >3 cm Upper Lip Bite Test Class: I Cardiovascular Rhythm: Regular Rate: Normal Cardiovascular Assessment: cardiovascular normal Functional Capacity: <4 METS Pulmonary Pulmonary Assessment: Clear General / Constitutional Constitutional Assessment: Thin General State of Health:: ill appearing Neurological Neurologic Assessment: alert and alert and oriented x 3 Dental Dental Assessment: dentition intact ASSESSMENT / PLAN ANESTHESIA PLAN ASA: 3 Anesthesia Plan: general Patient seen and allergies reviewed, anesthesia plan and risks discussed directly with patient /legal guardian or through an diplomatic interpreter/translator. Risks/Benefits/Alternatives of Blood transfusion discussed with patient [...] Diagnosis Comments LDA ANE ENDOTRACHEAL AIRWAY Routine 12/31/2023 1:24 PM CDT documented in this encounter Results * LDA ANE ENDOTRACHEAL AIRWAY (12/31/2023 1:24 [...] ETT location: oral VL device: glide scope [place] scope blade size: 4 Tube size: 7 [...] complications Jasmin Durant APRN, CRNA ANESTHESIA ORDE MARCUS Final Result documented in this encounter Visit Diagnoses Not on filedocumented in this encounter Administered Medications Inactive Administered Medications - up to 3 most recent administrations Medication Order MAR Action Action Date Dose Rate Site dextrose 50 % injection 12.5 g 12.5 g, intravenous, As needed, low blood sugar, For glucose 54-70 mg/dL, Starting on Sat12/31/23 at 1231, If the patient has intravenous access available, is not able to take oral feeding safely, does not have a functioning gastrointestinal tract or feeding tube, or is NPO, administer D50W intravenously for hypoglycemia treatment. Given 12/31/2023 2:22 PM CDT 12.5 g fentaNYL injection (Sublimaze) intravenous, As needed, Starting on Sat12/31/23 at 1319, Anesthesia Intra-op Given 12/31/2023 1:19 PM CDT 50 mcg Lactated Ringer's intravenous, Continuous Infusion: Per Instructions PRN, Starting on Sat12/31/23 at 1319, Anesthesia Intra-op New Bag 12/31/2023 1:19 PM CDT lidocaine (PF) (cardiac) injection intravenous, As needed, Starting on Sat12/31/23 at 1319, Anesthesia Intra-op Given 12/31/2023 1:19 PM CDT 80 mg ondansetron (PF) injection (Zofran) intravenous, As needed, Starting on Sat12/31/23 at 1335, Anesthesia Intra-op Given 12/31/2023 1:35 PM CDT 4 mg phenylephrine injection intravenous, As needed, Starting on Sat12/31/23 at 1327, Anesthesia Intra-op Given 12/31/2023 2:23 PM CDT 100 mcg Given 12/31/2023 2:07 PM CDT 100 mcg Given 12/31/2023 1:27 PM CDT 100 mcg propofol 10 mg/mL infusion (Diprivan) intravenous, Continuous Infusion: Per Instructions PRN, Starting on Sat12/31/23 at 1319, Anesthesia Intra-op Rate/Dose Change 12/31/2023 2:05 PM CDT 75 mcg/kg/min 22.455 mL/hr New Bag 12/31/2023 1:35 PM CDT 100 mcg/kg/min 29.94 mL/ hr New Bag 12/31/2023 1:19 PM CDT 135 mcg/kg/min 40.419 mL /hr propofoL injection (Diprivan) intravenous, As needed, Starting on Sat12/31/23 at 1319, Anesthesia Intra-op Given 12/31/2023 1:19 PM CDT 150 mg rocuronium injection (Zemuron) intravenous, As needed, Starting on Sat12/31/23 at 1319, Anesthesia Intra-op Given 12/31/2023 1:19 PM CDT 50 mg sugammadex injection ([place]) intravenous, As needed, Starting on Sat12/31/23 at 1405, Anesthesia Intra-op Given 12/31/2023 2:05 PM CDT 120 mg documented in this encounter Additional Health Concerns Assessment Noted Time PHQ-9 Depression Total Score: 21 012 10:33 AM FERTILIZER SUPERVISOR documented as of this encounter Care Teams Registered Mail Clerk Relationship Specialty Start Date End Date Elsewhere, Pcp PCP - General Internal Medicine 06/26/22 documented as of this encounter
--- OUTSIDE RECORDS SUMMARY | 2024-01-27 13:19 | XMS_ITS | Encounter Summary ---
Author Organization [facility] Address [address] [place] [address] Care Team Providers Care Mutuel Cashier Name Role Phone Elsewhere, Pcp Primary Care Provider Unavailabl e Encounter Details Date Type Department Care Team (Latest Contact Info) Description 12/31/2023 12:21 PM CDT - 12/31/2023 11:59 PM CDT Hospital Encounter Department of Radiology, [facility], in [place], [place] [address] [place] [phone] Jose Roberto Patterson M.D. 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 for testing 07/25/2022 acetaminophen (TYLENOL) 500 mg tablet Take 1,000 mg by mouth every 6 (six) hours as needed. 01/08/[address] tablet Take 325 mg by mouth every 6 (six) hours as needed for pain. clotrimazole (LOTRIMIN) 1 % cream APPLY TO AFFECTED AREA(S) TWO TIMES A DAY FOR 7 DAYS 04/19/2023 cyclobenzaprine (FLEXERIL) 10 mg tablet Take 10 mg by mouth 3 (three) times a day as needed. 07/26/2022 Dexcom G6 Sensor device 12/28/2023 donepeziL (ARICEPT) 5 mg tablet Take by [...] day. Full dose last night. None today losartan (COZAAR) 100 mg tablet Take 1 tablet by mouth at bedtime. 01/24/2015 montelukast (SINGULAIR) 10 mg tablet Take 10 mg by mouth at bedtime. nystatin (MYCOSTATIN) 100,000 unit/mL suspension TAKE 4MLS BY MOUTH FOUR TIMES DAILY FOR 7 DAYS; ADMINISTER ONE HALF DOSE IN EACH SIDE OF THE MOUTH 04/19/2023 oxyBUTYnin (DITROPAN-XL) 10 mg 24 hr tablet Take 10 mg by mouth at bedtime. oxyCODONE (ROXICODONE) 10 mg IR tablet TAKE ONE-HALF TABLET BY MOUTH FOUR TIMES A DAY NEEDED FOR PAIN FOR 14 DAYS 10/16/2022 oxyCODONE (ROXICODONE) 5 mg immediate release tablet Take 5 mg by mouth every 6 (six) hours as needed for pain. For 30 days. [id number]-[id number]-[id number] -C (MoviPrep) 100-7.5-2.691 gram kitIndications:L oss Weight,Pain Abdominal Chronic Drink 1st portion of [...] exceed 200 mg in 24 hours. varenicline (Chantix Bud) 0.5 mg (11)- 1 mg (42) tablet Take 2 tablets by mouth 2 (two) times a day with meals. 12/11/2023 documented as of this encounter Plan of Treatment Not on file documented as of this encounter Procedures Procedure Name Priority Date/Time Associated Diagnosis Comments FL FLUORO LESS THAN 1 HOUR RAD - Routine (most inpatients and all outpatients) 12/31/2023 1:53 PM CDT Pain Abdominal Chronic documented in this encounter Results * FL Fluoro Less Than 1 Hour (12/31/2023 1:53 PM CDT) Narrative ERCP LOS RST - 12/31/2023 1:54 PM CDT This exam does not require a radiologist review or interpretation. Please refer to the patient's medical record on this date for clinical details. us Jose Roberto Patterson M.D. IMG FLUOROSCOPY PROCED URES Final Result ERCP LOS RST documented in this encounter Visit Diagnoses Not on filedocumented in this encounter Additional Health Concerns Assessment Noted Time PHQ-9 Depression Total Score: 21 05/31/ 012 10:33 AM AMUSEMENT EQUIPMENT OPERATOR documented as of this encounter Care Teams Mutuel Cashier Relationship Specialty Start Date End Date Elsewhere, Pcp PCP - General Internal Medicine 06/26/22 documented as of this encounter
--- OUTSIDE RECORDS SUMMARY | 2024-01-27 13:19 | XMS_ITS ---
Author Organization [facility] Address [address] [place] [address] Care Team Providers Care Facilities Specialist Name Role Phone Unavailable Unavailable Unavailable Surgery Details Not on file Complications Check Surgery Details section. Procedure Estimated Blood Loss Check Surgery Details section. Procedure Findings Check Surgery Details section. Procedure Specimens Taken Check Surgery Details section.
--- OUTSIDE RECORDS SUMMARY | 2024-01-27 13:20 | XMS_ITS | Encounter Summary ---
Author Organization [facility] Address [address] [place] [address] Care Team Providers Care Clinical Informatics Educator Name Role Phone Elsewhere, Pcp Primary Care Provider Unavailabl e Reason for Visit * Reason Onset Date Comments Blood Sugar Problem 12/30/2023 Encounter Details Date Type Department Care Team (Late st Contact Info) Description 12/30/2023 Nurse Triage Division of Community Internal Medicine, [facility], in [place], [place] [address] [place] [phone] Molly Armstrong, RCarlosN. Blood Sugar Problem Social History Tobacco Use Types Packs/Day Years [...] 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 female calling regarding Blood Sugar Problem. Assessment Concern: Blood sugars dropping to 50s at night, shaky, fatigued. After orange juice BS increases to115. Patient currently feels she is too weak to stand. Patient has been prepping for a Colonoscopy and ERCT on 12/31/2023 Present for: 2 hours Home cares tried: orange juice Calling to request: advice The recommended disposition is Call EMS 911 Now. Care Advice Patient/Caregiver understands and will follow care advice?: Yes, able to teach back Diabetes - Low Blood [id number] Nurse Molly Thompson Dec 30, 2023 11:41 PM Care Advice CALL EMS 911 NOW: * Immediate medical attention is needed. You need to hang up and call 911 (or an ambulance). * Triager Discretion: I'll call you back in a few minutes to be sure you were able to reach them. FIRST AID ADVICE IF GLUCOSE LEVEL IS LOW OR UNKNOWN - GLUCOSE BY MOUTH: * Give sugar (15 to 20 grams glucose) by mouth IF THE PATIENT IS CONSCIOUS, able to follow commands, and able to swallow. * SOURCES OF GLUCOSE: Each of the following has the right amount of sugar: GLUCOSE TABLETS (3-4 tablets; 15-20 grams); glucose gel (15-20 grams); fruit juice or non-diet soda (1/2 cup; 120 ml); milk (1 cup; 240 ml); pre-packaged juice box (1 box); Skittles candy (15); table sugar or honey (3 teaspoons; 15 ml). * EXPECTED COURSE: Symptoms should begin to improve within 5 to 10 minutes. It may take 15 to 20 minutes for symptoms to go away completely. * REPEAT the glucose if not better within 15 to 20 minutes. Reason for Disposition Very weak (e.g., can't stand) Protocols used: Diabetes - Low Blood [id number] documented in this encounter Plan of Treatment Not on file documented as of this encounter Visit Diagnoses Not on filedocumented in this encounter Additional Health Concerns Assessment Noted Time PHQ-9 Depression Total Score: 21 012 10:33 AM SOLAR CREW MEMBER documented as of this encounter Care Teams Clinical Informatics Educator Relationship Specialty Start Date End Date Elsewhere, Pcp PCP - General Internal Medicine 06/26/22 documented as of this encounter
--- OUTSIDE RECORDS SUMMARY | 2024-01-27 13:20 | XMS_ITS | Encounter Summary ---
Author Organization [facility] Address [address] [place] [address] Care Team Providers Care Metal Rolling Mill Operator Name Role Phone Elsewhere, Pcp Primary Care Provider Unavailabl e Reason for Visit * Reason Onset Date Comments [facility] - Outside Materials 09/23/2023 Encounter Details Date Type Department Care Team (Latest Contact Info) Description 09/23/2023 Clinical Communication Division of Gastroenterology in [place], [place] [address] [place] [phone] Jose Roberto Patterson M.D. [address] [place] [phone] [facility] - Outside Materials Social History Tobacco [...] your living situation today? 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
--- OUTSIDE RECORDS SUMMARY | 2024-01-27 13:20 | XMS_ITS | Encounter Summary ---
Author Organization [facility] Address [address] [place] [address] Care Team Providers Care Traffic Engineering Technician Name Role Phone Elsewhere, Pcp Primary Care Provider Unavailabl e Reason for Referral * MRI/CAT/PET Scan (Routine) - Closed Specialty Diagnoses / Procedures Referred By Olivia gonzalez Referred To Contact Radiology Diagnoses Multiple Sclerosis (HCC) Procedures MR Brain Multiple Sclerosis Without and With IV Contrast MR Brain without and with IV Contrast Lizzy Carrington M.D. 200 [place] [phone] Phone: tel: fax: [facility] Referral ID Status Reason Start Date Expiration Date Visits Re quested Visits Authorized [id number] Closed 10/09/2023 10/08/2024 1 1 Reason for Visit * MRI/CAT/PET Scan (Routine) - Closed Specialty Diagnoses / Procedures Referred By Olivia gonzalez Referred To Contact Radiology Diagnoses Multiple Sclerosis (HCC) Procedures MR Brain Multiple Sclerosis Without and With IV Contrast MR Brain without and with IV Contrast Lizzy Carrington M.D. 200 [place] [phone] Phone: tel: fax: [facility] Referral ID Status Reason Start Date Expiration Date Visits Re quested Visits Authorized [id number] Closed 10/09/2023 10/08/2024 1 1 Encounter Details Date Type Department Care Team (Latest Contact Info) Description 11/01/2023 9:05 AM CDT - 11/01/2023 11:59 PM CDT Hospital Encounter Department of Radiology, [facility] in [place], [place] [address] [place] [phone] Lizzy Carrington M.D. [address] [place] [phone] Multiple Sclerosis (HCC) Discharge Disposition: Home or [...] your living situation today? 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 For 30 days. [id number] jjr-BvSf-LOs-asb-C (MoviPrep) 100-7.5-2.691 gram kitIndications:Loss Weight,Pain Abdominal Chronic [...] not exceed 200 mg in 24 hours. BD Ultra-Fine Micro Pen Needle 32 gauge x 1/4 needle 04/29/2023 12/30/19 24 insulin lispro 100 unit/mL injection Not started yet 04/29/2023 24 ondansetron ODT (ZOFRAN-ODT) 4 mg disintegrating tablet DISSOLVE ONE TABLET ON THE TONGUE TWO TO THREE TIMES PER DAY NEEDED FOR NAUSEA AND VOMITING FOR 3 DAYS 09/17/2022 12/30/19 24 documented as of this encounter Plan of [...] suggest active disease. Lizzy SOMMERS MRI PROCEDURES Final Res ult documented in this encounter Visit Diagnoses Diagnosis [...] Depression Total Score: 21 012 10:33 AM EARLY EDUCATION TEACHER documented as of this encounter Care Teams Traffic Engineering Technician Relationship Specialty Start Date End Date Elsewhere, Pcp PCP - General Internal Medicine 06/26/22 documented as of this encounter
--- OUTSIDE RECORDS SUMMARY | 2024-01-27 13:20 | XMS_ITS | Encounter Summary ---
Author Organization [facility] Address [address] [place] [address] Care Team Providers Care Manager Of Application Development Name Role Phone Elsewhere, Pcp Primary Care Provider Unavailabl e Encounter Details Date Type Department Care Team (Latest Contact Info) Description 11/01/2023 8:45 AM CDT Ancillary Procedure Department of Ophthalmology in [place], [place] [address] [place] [phone] Lizzy Carrington M.D. [address] [place] [phone] Multiple Sclerosis (HCC); Demyelinating Disease Central Nervous [...] your living situation today? I have a [facility] place to live 01/01/2023 Comments No Sex and Gender Information Value Date Recorded Sex Assigned at Female 01/01/2023 9:08 AM CDT Legal Sex Female 11:50 PM JAWBONE BREAKER Gender Identity Female 01/01/2023 9:08 AM CDT [...] optic neuritis Lizzy Carrington M.D. OPHTH TOMOGRAPHY Final Resul t OPHTHALMOLOGY IMAGING EXAM documented in this encounter Visit Diagnoses Diagnosis Multiple Sclerosis (HCC) Demyelinating Disease Central Nervous System (HCC) documented in this encounter Additional Health Concerns Assessment Noted Time PHQ-9 Depression Total Score: 21 05/31/ 012 10:33 AM JAWBONE BREAKER documented as of this encounter Care Teams Manager Of Application Development Relationship Specialty Start Date End Date Elsewhere, Pcp PCP - General Internal Medicine 06/26/22 documented as of this encounter
--- OUTSIDE RECORDS SUMMARY | 2024-01-27 13:20 | XMS_ITS | Clinical Summary ---
Author Organization [facility] Address [address], [place] [address] Care Team Providers Care Slate Picker Name Role Phone Lew Grewal MD Primary Care Provider [phone] Source Comments You are receiving this document as you are listed as the primary care provider,follow-up provider, or the patient has been referred to you for consultation.This is in compliance with the Medicare and[facility] EHR Incentive Program,which states Providers who transition their patient to another setting of careor provider of care or refers their patient to another provider of care shouldprovide summary care record for each transition of care or referral. [place] Allergies Active Allergy Reactions Criticality Noted Date [...] on patient's age to complete this topic RSV Aged Out No longer eligi ble based [...] with Reflex In-House (01/12/2019 2:27 PM CDT) [facility] Hepatitis C Antibody Negative (Non Reactive) Negative (Non Reactive) 01/12/2019 7:42 PM CDT [facility] Comment:Antibodies to HCV no t detected. Does not exclude the possiblity of exposure to HCV. Blood Venipuncture / Unknown 01/12/2019 2:27 PM CDT 01/12/2019 2:27 PM CDT Kenrick Juarez MD LAB_1 [facility] [address] * BASIC METABOLIC PANEL (10/19/2010 2:58 PM CDT) Pathologist [facility] BUN 14 7 - 20 mg/dl [facility] Sodium 140 135 - 145 mmol/L [facility] Potassium 4.5 3.5 - 5.3 mmol/L [facility] Chloride 101 95 - 106 mmol/L [facility] CO2 27 22 - 30 mmol/L [facility] Glucose 151 70 - 180 mg/dl [facility] Creatinine 0.76 0.52 - 1.04 mg/dl [facility] GFR, Estimated >60.0 >60 ml/min/1.7 3m2 [facility] GFR, Est., If Black >60.0 >60 ml/min/1.7 3m2 [facility] Calcium 9.8 8.4 - 10.2 mg/dl [facility] Anion Gap (calc.) 12 7 - 16 mmol/L [facility] 10/19/2010 2:58 PM CDT 10/19/2010 3:04 PM CDT Marcello Monterroso MD LAB_1 Performing Organization Address [facility] Co de Phone Number [facility] [address] [phone] * (ABNORMAL) HGB A1C (10/19/2010 2:58 PM CDT) Hgb A1c 8.9(H) 4.3 - 6.1 % [facility] Comment: The usual A1C goal for people with diabetes, age 18-75, is < 7.0%. Physicians may recommend a higher or lower goal for specific individuals. 10/19/2010 2:58 PM CDT 10/19/2010 3:04 PM CDT Marcello Monterroso MD LAB_1 Performing Organization Address [facility] Co de Phone Number [facility] [address] [phone] * MAMMOGRAM BILATERAL DIAGNOSTIC (11/05/2003 3:06 PM [...] BREAST MASS RT BREAST, ??PREV DONE AT [facility] Julius Tanner MD RAD MAMMO/RH from Last 3 Months or Most Recently Relevant to Health Maintenance Care Teams Slate Picker Relationship Specialty Start Date End Date Lew Grewal MD [address] [place] [address] CHRISTINA MARTINEZ [phone] PCP - General Family Practice 12/10/18
--- OUTSIDE RECORDS SUMMARY | 2024-01-27 13:20 | XMS_ITS | Encounter Summary ---
Author Organization [facility] Address [address] [place] [address] Care Team Providers Care Institutional Commodity Analyst Name Role Phone Elsewhere, Pcp Primary Care Provider Unavailabl e Reason for Referral * Outpatient (Routine) - Closed Specialty Diagnoses / Procedures Referred By Contac t Referred To Contact Diagnoses Loss Weight Pain Abdominal Chronic Procedures Colonoscopy Jose Roberto Patterson M.D. [address] [place] [phone] Phone: tel: fax: [facility] Referral ID Status Reason Start Date Expiration Date Visits Re quested Visits Authorized [id number] Closed 09/20/2023 09/19/2024 1 1 * Outpatient (Routine) - Closed Specialty Diagnoses / Procedures Referred By Contgriffin t Referred To Contact Diagnoses Pain Abdominal Chronic Procedures ERCP Jose Roberto Patterson M.D. [address] [place] [phone] Phone: tel: fax: [facility] Referral ID Status Reason Start Date Expiration Date Visits Re quested Visits Authorized [id number] Closed 07/09/2023 07/08/2024 1 1 Reason for Visit * Outpatient (Routine) - Closed Specialty Diagnoses / Procedures Referred By Olivia gonzalez Referred To Contact Diagnoses Loss Weight Pain Abdominal Chronic Procedures Colonoscopy Jose Roberto Patterson M.D. [address] [place] [address] Phone: tel: fax: [facility] Referral ID Status Reason Start Date Expiration Date Visits Re quested Visits Authorized [id number] Closed 09/20/2023 09/19/2024 1 1 Encounter Details Date Type Department Care Team (Latest Contact Info) Description 12/31/2023 12:09 PM CDT - 12/31/2023 4:26 PM CDT Hospital Encounter Division of Gastroenterology in [place], [place] [address] [place] [phone] Jose Roberto Patterson M.D. [address] [place] [address] Pain Abdominal Chronic; Loss Weight Discharge Disposition: Home or Self Care Social [...] your living situation today? 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 For 30 days. [id number] (MoviPrep) 100-7.5-2.691 gram kitIndications:L oss Weight,Pain [...] POCT, B Routine 12/31/2023 3:38 PM CDT COLONOSCOPY Routine 12/31/2023 3:12 PM CDT Loss Weight Pain Abdominal Chronic COLONOSCOPY Routine 12/31/2023 3:12 PM CDT Loss Weight Pain Abdominal Chronic ERCP Routine 12/31/2023 3:03 [...] POCT, B Routine 12/31/2023 1:25 PM CDT GLUCOSE POCT, B Routine 12/31/2023 12:54 PM CDT GLUCOSE POCT, B Routine 12/31/2023 12:26 PM CDT documented in this encounter Results * Glucose, POCT (12/31/2023 3:59 PM CDT) Glucose, POCT, B 97 70 - 140 mg/dL 12/31/2023 4:01 PM CDT PCLX Site Capillary 12/31/2023 4:01 PM CDT [facility] Blood 12/31/2023 3:59 PM CDT 12/31/2023 4:01 PM CDT us Unknown Provider LAB POCT ORDERABLES-MANUAL Juli l Result Performing Organization Address City/[facility]/ZIP Co de Phone Number POC [facility] [address] [place] [address], [facility] PCLX [facility] POC [address] [place] [address] * Glucose, POCT (12/31/2023 3:38 PM CDT) Glucose, POCT, B 87 70 - 140 mg/dL 12/31/2023 4:01 PM CDT PCLX Site Capillary 12/31/2023 4:01 PM CDT [facility]CL[facility] Blood 12/31/2023 3:38 PM CDT 12/31/2023 4:01 PM CDT us Unknown Provider LAB POCT ORDERABLES-MANUAL Juli l Result Performing Organization Address City/[facility]/ZIP Co de Phone Number POC [facility] [address] [place] [address], [facility] PCLX [facility] POC [address] [place] [address] * Colonoscopy (12/31/2023 3:12 PM CDT) 12/31/2023 3:12 PM CDT Impressions [employer] - 12/31/2023 3:32 PM CDT Post-op [...] preparation was evaluated ? using the BBPS ([place] Bowel Preparation Scale) with scores of: Right [...] ? No immediate complications. Sedation: ? General side door man Participation: I was present and participated during the entire ? procedure, including non-owens portions. Jose Roberto Patterson MD 12/31/2023 3:32:34 PM This report has been signed electronically. Number of Addenda: 0 us Jose Roberto Patterson M.D. GI PROCEDURE ORDERABLE S Final Result [facility] * ERCP (12/31/2023 3:03 PM CDT) 12/31/2023 3:03 PM CDT [facility] - 12/31/2023 3:31 PM CDT Post-op Diagnoses: ? - Chronic pancreatitis, improved appearance of stricture and pancreatic ? stone burden ? - Previously placed stent was removed ? - Possible stones identified today not extracted will likely pass ? spontaneously given dilated duct and pancreatic sphincterotomy. Narrative [facility] - 12/31/2023 3:31 PM CDT Kev 6 [...] A pancreatic stent was visible on the freezer laboratory technician film. The esophagus was ? successfully intubated [...] ?None. Complications: ? None. Sedation: ? General side door man Participation: I was present and participated during the entire ? procedure, including non-owens portions. Jose Roberto Patterson MD 12/31/2023 3:31:22 PM This report has been signed electronically. Number of Addenda: 0 us Jose Roberto Patterson M.D. GI PROCEDURE ORDERABLE S Final Result Performing Organization Address City/[facility]/ZIP Co de Phone Number [facility] NA * Glucose, POCT (12/31/2023 3:01 PM CDT) Glucose, POCT, B 119 70 - 140 mg/dL 12/31/2023 3:04 PM CDT [facility]CL[facility] Site Capillary 12/31/2023 3:04 PM CDT [facility] Blood 12/31/2023 3:01 PM CDT 12/31/2023 3:04 PM CDT us Unknown Provider LAB POCT ORDERABLES-MANUAL Juli l Result Performing Organization Address City/[facility]/ZIP Co de Phone Number POC [facility] [address] [place] [address], [facility] PCLX [facility] POC [address] [place] [address] * Surgical Pathology (12/31/2023 2:29 PM CDT) Pathologist [facility] 01/01/2024 2:28 PM CDT DTL Report electronically [...] en toto in cassette A1. ??Grossed by AJFiona. 01/01/2024 2:28 PM CDT DTL Interpretation FINAL DIAGNOSIS A. Colon, Left, Right, endoscopic biopsy: - Colonic mucosa without diagnostic abnormality - Negative for microscopic colitis Digital imaging was used in the diagnostic assessment of this case. 01/01/2024 2:28 PM CDT DTL Biopsy (Colon) 12/31/2023 2: 29 PM CDT us Jose Roberto Patterson M.D. LAB SURG PATH ORDERABL ES Final Result Performing Organization Address [facility] Co de Phone Number [facility] [address] DTL 200 [facility] 200 [place] [address] * Glucose, POCT (12/31/2023 2:18 PM CDT) Glucose, POCT, B 88 70 - 140 mg/dL 12/31/2023 2:21 PM CDT [facility]MO Blood 12/31/2023 2:18 PM CDT 12/31/2023 2:21 PM CDT us Unknown Provider LAB POCT ORDERABLES-MANUAL Juli l Result Performing Organization Address [facility] Co de Phone Number [facility]OC [facility] [address] PCMO [facility] POC [address] [place] [address] * [place] Fluoro Less Than 1 Hour (12/31/2023 1:53 PM CDT) Narrative ERCP [facility] - 12/31/2023 1:54 PM CDT This exam does not require a radiologist review or interpretation. Please refer to the patient's medical record on this date for clinical details. us Jose Roberto Patterson M.D. IMG FLUOROSCOPY PROCED URES Final Result Performing Organization Address [facility] Co de Phone Number ERCP LOS [facility] * Glucose, POCT (12/31/2023 1:25 PM CDT) Glucose, POCT, B 115 70 - 140 mg/dL 12/31/2023 1:28 PM CDT PCMO Site Capillary 12/31/2023 1:28 PM CDT PCMO Blood 12/31/2023 1:25 PM CDT 12/31/2023 1:28 PM CDT us Unknown Provider LAB POCT ORDERABLES-MANUAL Juli l Result Performing Organization Address City/[facility]/ZIP Co de Phone Number [facility] [address] PCMO [facility] POC [address] [place] [address] * (ABNORMAL) Glucose, POCT (12/31/2023 12:54 PM CDT) Glucose, POCT, B 170(H) 70 - 140 mg/dL 12/31/2023 1:00 PM CDT PCLX Site Capillary 12/31/2023 1:00 PM CDT PCLX Blood 12/31/2023 12:5 4 PM CDT 12/31/2023 1:00 PM CDT us Unknown Provider LAB POCT ORDERABLES-MANUAL Juli l Result Performing Organization Address [facility] Co de Phone Number [facility] [address] [place] [address], [facility]CLX [facility] POC [address] [place] [address] * (ABNORMAL) Glucose, POCT (12/31/2023 12:26 PM CDT) Glucose, POCT, B 47(L) 70 - 140 mg/dL 12/31/2023 1:00 PM CDT PCLX Site Capillary 12/31/2023 1:00 PM CDT PCLX Blood 12/31/2023 12:2 6 PM CDT 12/31/2023 1:00 PM CDT us Unknown Provider LAB POCT ORDERABLES-MANUAL Juli l Result Performing Organization Address City/[facility]/ZIP Co de Phone Number POC [facility] [address] [place] [address], [facility] PCLX [facility] [address] [place] [address] documented in this encounter Visit Diagnoses Diagnosis Pain Abdominal Chronic Loss Weight documented in this encounter Administered Medications Inactive Administered Medications - up to 3 most recent administrations Medication Order MAR Action Action Date Dose Rate Site dextrose 40% gel 15 g of dextrose (Glutose) 15 g of dextrose, oral, As needed, low blood sugar, For glucose 54-70 mg/dL, Starting on Sat12/31/23 at 1231, If patient is conscious and able to swallow safely and has a fuctioning gastrointestinal tract or on Acarbose (Precose??) or Miglitol (Glyset??). May use tablets or gel. For hypoglycemia treatment. 1 g dextrose 40% gel = 0.4 g of dextrose (Example: 37.5 g dextrose 40% gel = 15 g of dextrose). dextrose 40% gel 30 g of dextrose (Glutose) 30 g of dextrose, oral, As needed, low blood sugar, For glucose less than 54 mg/dL, Starting on Sat12/31/23 at 1231, If no intravenous access is available and the patient is conscious and able to swallow safely and has a fuctioning gastrointestinal tract or on Acarbose (Precose??) or Miglitol (Glyset??). May use tablets or gel. For hypoglycemia treatment. 1 g dextrose 40% gel = 0.4 g of dextrose (Example: 37.5 g dextrose 40% gel = 15 g of dextrose). dextrose 50 % injection 12.5 g 12.5 [...] Given 12/31/2023 2:22 PM CDT 12.5 g dextrose 50 % injection 25 g 25 g, intravenous, As needed, low blood sugar, For glucose less than 54 mg/dL, Starting on Sat12/31/23 at 1231, If intravenous access is available, administer D50W intravenously for hypoglycemia treatment. Given 12/31/2023 12:36 PM CDT 25 g glucagon injection 1 mg (GlucaGen) 1 mg, subcutaneous, Once as needed, low blood sugar, For glucose 54-70 mg/dL, Starting on Sat12/31/23 at 1231, For 1 dose, If patient does not have intravenous access available and is not able to take oral feeding safely, does not have a functioning gastrointestinal tract or feeding tube, or is NPO. Following treatment with Glucagon, a source of glucose should be started to maintain blood glucose level (e.g., patient should eat oral carbohydrates if allowed or prescriber should be contacted to consider starting fluids containing dextrose) Glucagon may only be given once per hypoglycemia treatment episode. glucagon injection 1 mg (GlucaGen) 1 mg, subcutaneous, Once as needed, low blood sugar, For glucose less than 54 mg/dL, Starting on Sat12/31/23 at 1231, For 1 dose, If intravenous access not available and patient is not able to take oral feeding safely, does not have a functioning gastrointestinal tract or feeding tube. Following treatment with glucagon a source of glucose should be started to maintain blood glucose level (e.g. patient should eat oral carbohydrates if allowed or prescriber should be contacted to consider starting fluids containing dextrose). Glucagon may only be given once per hypoglycemic treatment episode. glucose chewable tablet 16 g 16 g, oral, As needed, low blood sugar, For glucose 54-70 mg/dL, Starting on Sat12/31/23 at 1231, If patient is conscious and able to swallow safely and has a functioning gastrointestinal tract or on Acarbose (Precose??) or Miglitol (Glyset??). Administer 4 tablets to total 16 grams. May use tablets or gel. For hypoglycemia treatment. glucose chewable tablet 32 g 32 g, oral, As needed, low blood sugar, For glucose less than 54 mg/dL, Starting on Sat12/31/23 at 1231, If no intravenous access is available and the patient is conscious and able to swallow safely and has a functioning gastrointestinal tract or on Acarbose (Precose??) or Miglitol (Glyset??). Administer 8 tablets to total 32 grams. May use tablets or gel. For hypoglycemia treatment. documented in this encounter Active and Recently Administered Medications Times are shown in CDT. PRN Medication Order 12/29/2023 12/30/2023 12/31/2023 dextrose 40% gel 15 g of dextrose (Glutose) 15 g of dextrose, oral, As needed, low blood sugar, For glucose 54-70 mg/dL, Starting on Sat12/31/23 at 1231, If patient is conscious and able to swallow safely and has a fuctioning gastrointestinal tract or on Acarbose (Precose??) or Miglitol (Glyset??). May use tablets or gel. For hypoglycemia treatment. 1 g dextrose 40% gel = 0.4 g of dextrose (Example: 37.5 g dextrose 40% gel = 15 g of dextrose). dextrose 40% gel 30 g of dextrose (Glutose) 30 g of dextrose, oral, As needed, low blood sugar, For glucose less than 54 mg/dL, Starting on Sat12/31/23 at 1231, If no intravenous access is available and the patient is conscious and able to swallow safely and has a fuctioning gastrointestinal tract or on Acarbose (Precose??) or Miglitol (Glyset??). May use tablets or gel. For hypoglycemia treatment. 1 g dextrose 40% gel = 0.4 g of dextrose (Example: 37.5 g dextrose 40% gel = 15 g of dextrose). dextrose 50 % injection 12.5 g 12.5 g, intravenous, As needed, low blood sugar, For glucose 54-70 mg/dL, Starting on Sat12/31/23 at 1231, If the patient has intravenous access available, is not able to take oral feeding safely, does not have a functioning gastrointestinal tract or feeding tube, or is NPO, administer D50W intravenously for hypoglycemia treatment. 1422 (Given - Provid er: Jasmin Durant APRN, NABOR) dextrose 50 % injection 25 g 25 g, intravenous, As needed, low blood sugar, For glucose less than 54 mg/dL, Starting on Sat12/31/23 at 1231, If intravenous access is available, administer D50W intravenously for hypoglycemia treatment. 1236 (Given - Provid er: Desi Rousseau R.N.) glucagon injection 1 mg (GlucaGen) 1 mg, subcutaneous, Once as needed, low blood sugar, For glucose 54-70 mg/dL, Starting on Sat12/31/23 at 1231, For 1 dose, If patient does not have intravenous access available and is not able to take oral feeding safely, does not have a functioning gastrointestinal tract or feeding tube, or is NPO. Following treatment with Glucagon, a source of glucose should be started to maintain blood glucose level (e.g., patient should eat oral carbohydrates if allowed or prescriber should be contacted to consider starting fluids containing dextrose) Glucagon may only be given once per hypoglycemia treatment episode. glucagon injection 1 mg (GlucaGen) 1 mg, subcutaneous, Once as needed, low blood sugar, For glucose less than 54 mg/dL, Starting on Sat12/31/23 at 1231, For 1 dose, If intravenous access not available and patient is not able to take oral feeding safely, does not have a functioning gastrointestinal tract or feeding tube. Following treatment with glucagon a source of glucose should be started to maintain blood glucose level (e.g. patient should eat oral carbohydrates if allowed or prescriber should be contacted to consider starting fluids containing dextrose). Glucagon may only be given once per hypoglycemic treatment episode. glucose chewable tablet 16 g 16 g, oral, As needed, low blood sugar, For glucose 54-70 mg/dL, Starting on Sat12/31/23 at 1231, If patient is conscious and able to swallow safely and has a functioning gastrointestinal tract or on Acarbose (Precose??) or Miglitol (Glyset??). Administer 4 tablets to total 16 grams. May use tablets or gel. For hypoglycemia treatment. glucose chewable tablet 32 g 32 g, oral, As needed, low blood sugar, For glucose less than 54 mg/dL, Starting on Sat12/31/23 at 1231, If no intravenous access is available and the patient is conscious and able to swallow safely and has a functioning gastrointestinal tract or on Acarbose (Precose??) or Miglitol (Glyset??). Administer 8 tablets to total 32 grams. May use tablets or gel. For hypoglycemia treatment. documented in this encounter Additional Health Concerns Assessment Noted Time PHQ-9 Depression Total Score: 21 012 10:33 AM EQUIPMENT MAN documented as of this encounter Care Teams Institutional Commodity Analyst Relationship Specialty Start Date End Date Elsewhere, Pcp PCP - General Internal Medicine 06/26/22 documented as of this encounter
--- OUTSIDE RECORDS SUMMARY | 2024-01-27 13:20 | XMS_ITS | Encounter Summary ---
Author Organization [facility] Address [address] [place] [address] Care Team Providers Care Firestopper Installer Name Role Phone Elsewhere, Pcp Primary Care Provider Unavailabl e Reason for Referral * Outpatient (Routine) - Closed Specialty Diagnoses / Procedures Referred By Contac t Referred To Contact Vascular Medicine Diagnoses Loss Weight Pain Abdominal Chronic Arturo Camacho M.B.B.S., M.S. Phone: tel: fax: [facility] Referral ID Status Reason Start Date Expiration Date Visits Re quested Visits Authorized [id number] Closed 10/04/2023 04/04/2025 1 1 * Outpatient (Routine) - Closed Specialty Diagnoses / Procedures Referred By Contac t Referred To Contact Vascular Medicine Diagnoses Loss Weight Pain Abdominal Chronic Procedures Vascular Medicine - Thrombophilia periprocedural eConsult Bill So M.D. [address] [place] [address] Phone: tel: fax: [facility] Referral ID Status Reason Start Date Expiration Date Visits Re quested Visits Authorized [id number] Closed 09/24/2023 09/23/2024 1 1 * Outpatient (Routine) - Closed Specialty Diagnoses / Procedures Referred By Olivia gonzalez Referred To Contact Diagnoses Loss Weight Pain Abdominal Chronic Procedures Colonoscopy Jose Roberto Patterson M.D. [address] [place] [address] Phone: tel: fax: [facility] Referral ID Status Reason Start Date Expiration Date Visits Re quested Visits Authorized [id number] Closed 09/20/2023 09/19/2024 1 1 Reason for Visit * Reason Onset Date Comments Order Request 09/20/2023 Encounter Details Date Type Department Care Team (Latest Contact Info) Description 09/20/2023 Clinical Communication Division of Gastroenterology in [place], [place] [address] [place] [address] Jose Roberto Patterson M.D. 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 LAB BLOOD ADD-ON F inal Result [facility] [address] [place] [address], [place] DTL [facility] [address] [place] [address] * APTT (Activated Partial Thromboplastin Time) (10/09/2023 11:27 AM CDT) Pathologist [facility] Activated Partial Thrombopl Time, P 35 25 - 37 sec 10/09/2023 12:44 PM CDT DTL Blood (Blood, Venous) 10/09/2023 11:27 AM CDT 10/09/2023 12:20 PM CDT Arturo Juan, M.S. LAB BLOOD ADD-ON F inal Result Performing Organization Address [facility]/Va Hospital/ZIP Co de Phone Number [facility] [address] [place] [address], [facility] [address] [place] [address] * Prothrombin Time (PT) (10/09/2023 11:27 AM CDT) Pathologist [facility] Prothrombin Time, P 11.7 9.4 - [...] ADD-ON F inal Result Performing Organization Address City/Va Hospital/ZIP Co de Phone Number [facility] [address] [place] [address], [facility] DTL [facility] [address] [place] [address] * (ABNORMAL) CBC with Differential, Blood (10/09/2023 11:27 AM CDT) Pathologist [facility] Hemoglobin 11.7 11.6 - 15.0 g/dL [...] 11:27 AM CDT 10/09/2023 12:20 PM CDT us Arturo Juan, M.S. LAB BLOOD ADD-ON F inal Result [facility] [address] [place] [address], [place] DTL [facility] [address] [place] [address] DHPM [facility] [address] [place] [address] documented in this encounter Visit Diagnoses Diagnosis Loss Weight- Primary Pain Abdominal Chronic documented in this encounter Additional Health Concerns Assessment Noted Time PHQ-9 Depression Total Score: 21 05/31/ 012 10:33 AM JEWELRY MODEL MAKER documented as of this encounter Care Teams Firestopper Installer Relationship Specialty Start Date End Date Elsewhere, Pcp PCP - General Internal Medicine 06/26/22 documented as of this encounter
--- OUTSIDE RECORDS SUMMARY | 2024-01-27 13:20 | XMS_ITS | Encounter Summary ---
Author Organization [facility] Address [address] [place] [address] Care Team Providers Care Shutdown Planner Name Role Phone Elsewhere, Pcp Primary Care Provider Unavailabl e Reason for Referral * Outpatient (Routine) - Authorized Specialty Diagnoses / Procedures Referred By Contac t Referred To Contact Pulmonary Medicine / Nicotine Dependence Diagnoses Transient Ischemic Attack Abuse Tobacco Smoking Malika Marc M.D. [address] [place] [address] Phone: tel: fax: [facility] Referral ID Status Reason Start Date Expiration Date V isits Requested Visits Authorized [id number] Authorized 11/15/2023 05/16/2025 1 1 * MRI/CAT/PET Scan (Routine) - Authorized Specialty Diagnoses / Procedures Referred By Contac t Referred To Contact Radiology Diagnoses Multiple Sclerosis (HCC) Transient Ischemic Attack Procedures MR Thoracic Spine without and with IV Contrast Malika Marc M.D. [address] [place] [address] Phone: tel: fax: [facility] Referral ID Status Reason Start Date Expiration Date V isits Requested Visits Authorized [id number] Authorized 11/15/2023 11/14/2024 1 1 * MRI/CAT/PET Scan (Routine) - Authorized Specialty Diagnoses / Procedures Referred By Olivia t Referred To Contact Radiology Diagnoses Multiple Sclerosis (HCC) Transient Ischemic Attack Procedures MR Cervical Spine without and with IV Contrast Malika Marc M.D. [address] [place] [phone] Phone: tel: fax: [facility] Referral ID Status Reason Start Date Expiration Date V isits Requested Visits Authorized [id number] Authorized 11/15/2023 11/14/2024 1 1 * Outpatient (Routine) - Authorized Specialty Diagnoses / Procedures Referred By Contac t Referred To Contact Neurology Diagnoses Multiple Sclerosis (HCC) Transient Ischemic Attack Malika Marc M.D. [address] [place] [phone] Phone: tel: fax: Lizzy Carrington M.D. [address] [place] [phone] Phone: tel: fax: Referral ID Status Reason Start Date Expiration Date V isits Requested Visits Authorized [id number] Authorized 11/15/2023 05/16/2025 1 1 Scheduling Instructions After cervical and thoracic spine MRIs under general anesthesia Reason for Visit * Outpatient (Routine) - Closed Specialty Diagnoses / Procedures Referred By Contac t Referred To Contact Neurology Diagnoses Multiple Sclerosis (HCC) Transient Ischemic Attack Andre Crouch M.D. [address] [place] [phone] Phone: tel: fax: [facility] Referral ID Status Reason Start Date Expiration Date V isits Requested Visits Authorized [id number] Closed Specialty Services Required 10/09/2023 04/09/2025 1 1 Encounter Details Date Type Department Care Team (Latest Contact Info) Description 11/15/2023 1:00 PM CDT Comprehensive Visit Department of Neurology in [place], [place] [address] [place] [address] Andre Crouch M.D. [address] [place] [phone] Lizzy Carrington M.D. [address] [place] [phone] Multiple Sclerosis (HCC) (Primary Dx); Transient Ischemic [...] living situation today? I have a [facility] place to live 01/01/2023 Comments No Sex and Gender Information Value Date Recorded Sex Assigned at Female 01/01/2023 9:08 AM CDT Legal Sex Female 11:50 PM ACCOUNTING SYSTEM EXPERT Gender Identity Female 01/01/2023 9:08 AM CDT [...] tobacco use, bipolar disorder. 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 NIHSS [...] multiple sclerosis. In 2001, patient established at [facility] and was seen by Dr. Smith, Dr. [...] continuously for 1-2 years. After establishing at [facility], patient was started on Avonex and treated with amantadine for significant fatigue. She has inconsistently followed with [facility] after 2004. Per patient today, she [...] pain. For 30 days., Disp: , Rfl: [id number] (MoviPrep) 100-7.5-2.691 gram kit, Drink 1st portion [...] flexor/flexor. GAIT: Normal sitting and standing balance. Onw-sc-nfutq is independent using arms to push up. Gait is somewhat stiff and mildly ataxic. Able to walk on toes and heels. Unable to tandem walk due to imbalance. Romberg negative. COORDINATION: Normal upper ALIYAH???s. Normal [id number]. Normal caqn-uf-tvvd. SENSATION: Diminished pinprick sensation in distal right [...] was 28/38, so thisis not a major exchange architect the last 8 years and no further [...] MR results when complete Malika Marc, PGY-2 Cosigned by Lizzy Carrington M.D. at 11/15/2023 3:36 PM CDT * Lizzy Carrington M.D. - 11/15/2023 1:00 [...] has not been seen by Neurology at [facility] for a number of years. She has [...] We had a detailed discussion with Ms. rPince and her about this and let them [...] in this encounter Plan of Treatment Scheduled Orders Name Type Priority Associated Diagnoses [...] Total Score: 21 05/31/ 012 10:33 AM ACCOUNTING SYSTEM EXPERT documented as of this encounter Care Teams Shutdown Planner Relationship Specialty Start Date End Date Elsewhere, Pcp PCP - General Internal Medicine 06/26/22 documented as of this encounter
--- OUTSIDE RECORDS SUMMARY | 2024-01-27 13:20 | XMS_ITS | Encounter Summary ---
Author Organization [facility] Address [address] [place] [id number] Care Team Providers Care Bible Reader Name Role Phone Elsewhere, Pcp Primary Care Provider Unavailabl e Reason for Visit * Reason Onset Date Comments Pre-visit Intake 12/30/2023 Encounter Details Date Type Department Care Team (Latest Contact Info) Description 12/30/2023 9:45 AM CDT Clinical Communication Virtual Review in [address] [phone] Pre-visit Intake Social History Tobacco Use Types [...] your living situation today? 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
--- OUTSIDE RECORDS SUMMARY | 2024-01-27 13:20 | XMS_ITS | Encounter Summary ---
Author Organization [facility] Address [address] [place] [address] Care Team Providers Care Engineer Specialist Name Role Phone Elsewhere, Pcp Primary Care Provider Unavailabl e Encounter Details Date Type Department Care Team (Latest Contact Info) Description 12/05/2023 Clinical Communication Division of Gastroenterology in [place], [place] [address] [place] [address] Jose Roberto Patterson M.D. [address] [place] [phone] Social History Tobacco Use Types Packs/Day Years [...] your living situation today? 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
--- OUTSIDE RECORDS SUMMARY | 2024-01-27 13:20 | XMS_ITS | Encounter Summary ---
Author Organization [facility] Address [address] [place] [address] Care Team Providers Care Windows Desktop Support Name Role Phone Elsewhere, Pcp Primary Care [...] AM CDT Legal Sex Female 11:50 PM INDUSTRIAL HEALTH ENGINEER Gender Identity Female 01/01/2023 9:08 AM CDT [...] Noted Time PHQ-9 Depression Total Score: 21 03/02/ 012 10:33 AM INDUSTRIAL HEALTH ENGINEER documented as of this encounter Care Teams Windows Desktop Support Relationship Specialty Start Date End Date Elsewhere, Pcp PCP - General Internal Medicine 06/26/22 documented as of this encounter
== END 2024-01-27 13:16 | disposition home or self-care (01) ==
LOC: KYNREF 13:15
PROVIDERS: PCP Nurse Practitioner Family; Visit Provider Nurse Practitioner Family
DX: E11.69 Type 2 diabetes mellitus with other specified complication (principal); Z79.4 Long term (current) use of insulin
CPT/HCPCS: 80053

== ENCOUNTER 2024-04-21 14:15 | Outpatient (CLI) | payer OTHER, SELFPAY | END 2024-04-21 14:16 | disposition home or self-care (01) | PROVIDERS: PCP Nurse Practitioner Family; Visit Provider Nurse Practitioner Family | DX: R39.89 Other symptoms and signs involving the genitourinary system (principal); R82.90 Unspecified abnormal findings in urine | CPT/HCPCS: 80048; 81001; 87086 ==

== ENCOUNTER 2024-11-14 19:15 | Emergency (ER) | payer MEDICARE, SELFPAY ==
--- OUTSIDE RECORDS SUMMARY | 2024-10-01 11:00 | XMS_ITS | Encounter Summary ---
Author Organization [facility] Address [address] [place] [address] Care Team Providers Care Fur Tailor Name Role Phone Elsewhere, Pcp Primary Care Provider Unavailabl e Reason for Visit * Reason Onset Date Comments Pre-visit Intake 10/01/2024 * Appointment Request (Routine) - Authorized Specialty Diagnoses / Procedures Referred By Contac t Referred To Contact Endocrinology Referral ID Status Reason Start Date Expiration Date V isits Requested Visits Authorized [id number] Authorized 07/13/2024 10/13/2025 1 1 Encounter Details Date Type Department Care Team (Latest Contact Info) Description 10/01/2024 11:00 AM CDT Clinical Communication Virtual Review in [place], [place] [address] [place] [address] Pre-visit Intake Social History Tobacco Use Types Packs/Day Years Used Date Smoking Tobacco: Some Days Cigarettes 0.3 56.7 Started: [birth year]/01/1969 Passive Smoke Exposure: Never Smokeless Tobacco: Never Alcohol Use Standard Drinks/Week Comments Never 0 (1 standard drink = 0.6 oz pur e alcohol) [facility] Utilities Answer Date Recorded In the past 12 months has e electric, gas, oil, or water company threatened to shut off services in your home? Yes 03/30/2024 Hunger Vital Sign Answer Date Recorded Within the past 12 months, y ou worried that your food would run out before you got the money to buy more. Sometimes true Within the past 12 months, t he food you bought just didn't last and you didn't have money to get more. Sometimes true PRAPARE - Transportation Answer Date Re corded In the past 12 months, has l ack of transportation kept you from medical appointments or from getting medications? Yes 03/03 In the past 12 months, has l ack of transportation kept you from meetings, work, or from getting things needed for daily living? Yes 03/30/2024 Housing Stability Answer Date Recorded What is your living situation today? 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
--- OUTSIDE RECORDS SUMMARY | 2024-10-05 13:30 | XMS_ITS | Encounter Summary ---
Author Organization [facility] Address [address] [place] [address] Care Team Providers Care Tree Surgeon Helper Name Role Phone Elsewhere, Pcp Primary Care Provider Unavailabl e Reason for Referral * Outpatient (Routine) - Authorized Specialty Diagnoses / Procedures Referred By Olivia gonzalez Referred To Contact Endocrinology Diagnoses Diabetes Mellitus Type 2 With Diabetic Neuropathy (HCC) Emilia Medina M.D. [address] [place] [phone] Phone: tel: fax: [facility] Referral ID Status Reason Start Date Expiration Date V isits Requested Visits Authorized [id number] Authorized 10/05/2024 04/06/2026 1 1 * Specialty Diagnoses / Procedures Referred By Olivia gonzalez Referred To Contact Diagnoses Diabetes Mellitus Type 2 With Diabetic Neuropathy (HCC) Emilia Medina M.D. [address] [place] [phone] Phone: tel: fax: [facility] Referral ID Status Reason Start Date Expiration Date Visits Re quested Visits Authorized Reason for Visit * Outpatient (Routine) - Closed Specialty Diagnoses / Procedures Referred By Olivia t Referred To Contact Endocrinology Diagnoses Diabetes Mellitus Type 2 With Diabetic Neuropathy (HCC) Emilia Medina M.D. [address] [place] [address] Phone: tel: fax: [facility] Referral ID Status Reason Start Date Expiration Date Visits Re quested Visits Authorized [id number] Closed 06/09/2024 12/09/2025 1 1 Encounter Details Date Type Department Care Team (Latest Contact Info) Description 10/05/2024 1:30 PM CDT Telemedicine Division of Endocrinology in [place], [place] [address] [place] [address] Emilia Medina M.D. [address] [place] [address] Diabetes Mellitus Type 2 With Diabetic Neuropathy (HCC) Social History Tobacco Use Types Packs/Day Years Used Date Smoking Tobacco: Some Days Cigarettes 0.3 56.7 Started: [birth year]01/1969 Passive Smoke Exposure: Never Smokeless Tobacco: Never Alcohol Use Standard Drinks/Week Comments Never 0 (1 standard drink = 0.6 oz pur e alcohol) [facility] Utilities Answer Date Recorded In the past 12 months has th e electric, gas, oil, or water [employer] threatened to shut off services in your [...] [facility] place [facility] live 03/30/2024 Comments No Sex and Gender Information Value Date Recorded Sex Assigned at Female 01/01/2023 9:08 AM CDT 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 - 10/05/2024 1:30 PM CDT SUBJECTIVE CHIEF COMPLAINT / REASON FOR VISIT Yary Prince is a 69 y.o. female with a past medical history of chronic pancreatitis, pancreatic duct stone, pancreatic duct stricture (most recent ERCP shows improved stricture), type 2 diabetes mellitus, hyperlipidemia, relapsing- remitting multiple sclerosis whom I have seen on 06/09/2024. She is here for follow-up today. HISTORY OF PRESENT ILLNESS She was initially diagnosed with type 2 diabetes in about 10 years ago based on blood work. She wasinitially started on glipizide, which was stopped 4 years ago. She was also on metformin, and stopped it a couple years later as she reports she heard bad things about it. Glyburide was also stopped long time ago, but she does not remember the details. She was started on long-acting insulin and in her last visit we also decided to add mealtime coverage given that she was persistent hyperglycemia postprandially. We also adjusted her long-acting insulin dose given that she was having overnight hypoglycemia. Her C-peptide is 0.2 ng/mL. She was seen by our tobacco educator Madhav Shepard RN on 08/06/2024 and at that time she was still not on short-acting insulin. She continued to have overnight hypoglycemia and the Lantus dose was adjusted from 20 units to 18 units. She hyper still using 20 units of Lantus. She started using short-acting insulin only a month ago and only injects 18 units of aspart with dinner. Ms. Prince is using continuous glucose monitoring (CGM) technology to manage her diabetes. I reviewedthe available data which has been scanned into the patient's chart. DESCRIPTION OF CGM TRACING Device: Dexcom G7 Percentage of time CGM is active 91% Mean glucose: 232 mg/dL Glucose management indicator (GMI): 8.9% Glycemic variability (%CV) 36.4 % Glycemic variability (SD) 85 mg/dL Time above range (TAR > 250): 40% Time above range (TAR 181 -250): 31% Time in range (TIR 70 - 180): 28% Time below range (TBR 54 - 69): 1% Time below range (TBR <54): <1% Notable trends: Consistent postprandial hyperglycemia and normal overnight glucose with occasional low values. Macrovascular complications: No. Microvascular complications: Retinopathy screenin months ago locally. Reports no retinopathy. I do not have access to this result. Peripheral neuropathy: Yes. Not on any medications. Microalbumin test: No recent microalbumin test. Will get this done tomorrow. Weight: BMI: 20.30 kg/m2. Weight decreased from 240 lbs to 110 lbs since a couple years ago. Diet: Balanced Exercise: Not physically active. Only housework. OBJECTIVE PHYSICAL EXAM Deferred due to virtual visit. ASSESSMENT / PLAN: #1 Diabetes mellitus, type 2, uncontrolled, complicated by diabetic neuropathy #2 Chronic pancreatitis due to pancreatic stone #3 Hyperlipidemia, on statin therapy Ms. Prince has an uncontrolled diabetes and continues to experience persistent postprandial hyperglycemia and episodes of overnight hypoglycemia. I recommended adjusting her insulin regimen by decreasing her nightly Lantus dose from 20 units to 18 units and administering 6 units of aspart with meals,ideally 15 minutes before eating. I will refer her to our diabetes educators for the [employer] class to provide her with intensive education on insulin dose adjustments. Given the continuous weight loss, I will also check a TSH level. We will also check her urine microalbumin as part of her ongoing diabetes management. Follow up: 3 months with me. Emilia Medina MD Endocrinology fellow, PGY-5. Discussed with Dr. Davenport. Cosigned by Alejandro Davenport M.D., M.S. at 10/14/2024 12:20 PM CDT Associated attestation - Alejandro Davenport M.D., M.S. - 10/14/2024 12:20 PM CDT This is a supervisory note for Dr. Medina, Endocrinology Fellow. I reviewed with Dr. Medina the medical history and her findings on physical examination. I discussed with her the patient???s diagnosis and I concur with the recommendations as outlined in her note. documented in this encounter Miscellaneous Notes * Addendum Note - Nick Mosley - 10/05/2024 1:30 PM CDTAddended by: NICK MOSLEY on: 10/08/2024 09:24 AM Modules accepted: Orders documented in this encounter Plan of Treatment Scheduled Orders Name Type Priority Associated Diagnoses Orde r Schedule Albumin, Random, Urine Lab Routine Diabetes Mellitus Type 2 With Diabetic Neuropathy (HCC) Expected: 10/09/2024, Expires: 01/05/2026 Hemoglobin A1c Lab Routine Diabetes Mellitus Type 2 With Diabetic Neuropathy (HCC) Expected: 01/08/2025, Expires: 01/05/2026 S-TSH (Thyroid-Stimulating Hormone - Sensitive) Lab Routine Diabetes Mellitus Type 2 With Diabetic Neuropathy (HCC) Expected: 10/09/2024, Expires: 01/05/2026 Scheduled Referrals Name Type Priority Associated Diagnoses Order Schedule Nutrition - perioperative educator visit (clinic) Outpatient Referral Routine Diabetes Mellitus Type 2 With Diabetic Neuropathy (HCC) Expected: 10/05/2024 (Approximate), Expires: 10/05/2025 Endocrinology office visit (clinic) Outpatient Referral Routine Diabetes Mellitus Type 2 With Diabetic Neuropathy (HCC) Expected: 01/05/2025, Expires: 01/05/2026 documented as of this encounter Visit Diagnoses Diagnosis Diabetes Mellitus Type 2 With Diabetic Neuropathy (HCC) documented in this encounter Additional Health Concerns Assessment Noted Time PHQ-9 Depression Total Score: 21 03/2 012 10:33 AM CASTING OPERATOR HELPER documented as of this encounter Care Teams Tree Surgeon Helper Relationship Specialty Start Date End Date Elsewhere, Pcp PCP - General Internal Medicine 06/26/22 documented as of this encounter
[2024-11-14] VITALS (17 sets, daily range): BP systolic 172–230; BP diastolic 81–119; PULSE 59–77; RESP 16–22; TEMP 36.9; O2SAT 90–97; BMI 18.9
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
--- OUTSIDE RECORDS SUMMARY | 2024-11-14 19:43 | XMS_ITS | Encounter Summary ---
Author Organization [facility] Address [address] [place] [address] Care Team Providers Care Atmospheric Drier Tender Name Role Phone Elsewhere, Pcp Primary Care Provider Unavailabl e Reason for Visit * Reason Onset Date Comments Asymptomatic Pertussis Post-exposure Antibiotic Prophylaxis 09/01/2024 Encounter Details Date Type Department Care Team (Latest Contact Info) Description 09/01/2024 Clinical Communication Department of Urology in [place], [place] [address] [place] [phone] Luis Andrew M.D., M.P.H. [address] [place] [phone] Asymptomatic Pertussis Post-exposure Antibiotic Prophylaxis Social History Tobacco Use Types Packs/Day Years Used Date Smoking Tobacco: Some Days Cigarettes 0.3 56.7 Started: 04/01/1968 Passive Smoke Exposure: Never Smokeless Tobacco: Never Alcohol Use Standard Drinks/Week Comments Never 0 (1 standard drink = 0.6 oz pur e alcohol) [facility] Utilities Answer Date Recorded In the past [...] have a [facility] place to live 03/30/2024 Comments No Sex and Gender Information Value Date Recorded Sex Assigned at Female 01/01/2023 9:08 AM CDT Legal Sex Female 11:50 PM LOGISTICS PROJECT MANAGER Gender Identity Female 01/01/2023 9:08 AM CDT Sexual Orientation Straight 01/01/2023 9: 08 AM CDT documented as of this encounter Plan of Treatment Not on file documented as of this encounter Visit Diagnoses Not on filedocumented in this encounter Additional Health Concerns Assessment Noted Time PHQ-9 Depression Total Score: 21 012 10:33 AM LOGISTICS PROJECT MANAGER documented as of this encounter Care Teams Atmospheric Drier Tender Relationship Specialty Start Date End Date Elsewhere, Pcp PCP - General Internal Medicine 06/26/22 documented as of this encounter
--- OUTSIDE RECORDS SUMMARY | 2024-11-14 19:43 | XMS_ITS | Encounter Summary ---
Author Organization [facility] Address [address] [place] [id number] Care Team Providers Care Promotions Assistant Name Role Phone Elsewhere, Pcp Primary Care Provider Unavailabl e Encounter Details Date Type Department Care Team (Late st Contact Info) Description 09/02/2024 Results Follow-Up Department of Urology in [place], [place] [address] [place] [phone] Luis Andrew M.D., M.P.H. 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 Social History Tobacco Use Types Packs/Day Years Used Date Smoking Tobacco: Some Days Cigarettes 0.3 56.7 Started: 04/01/1968 Passive Smoke Exposure: Never Smokeless Tobacco: Never Alcohol Use Standard Drinks/Week Comments Never 0 (1 standard drink = 0.6 oz pur e alcohol) [facility] Utilities Answer Date Recorded In [...] [facility] place to live 03/30/2024 Comments No Sex and Gender Information Value Date Recorded Sex Assigned at Female 01/01/2023 9:08 AM CDT Legal Sex Female 11:50 PM LEATHER CUTTER Gender Identity Female 01/01/2023 9:08 AM CDT Sexual Orientation Straight 01/01/2023 9: 08 AM CDT documented as of this encounter Miscellaneous Notes * Result Encounter Note - Luis Andrew M.D., M.P.H. - 09/02/2024 8:43 AM CDT I have reviewed the final pathology report and the identified diagnosis is consistent with the patient's clinical presentation. documented in this encounter Plan of Treatment Not on file documented as of this encounter Visit Diagnoses Not on filedocumented in this encounter Additional Health Concerns Assessment Noted Time PHQ-9 Depression Total Score: 21 05/31/ 012 10:33 AM LEATHER CUTTER documented as of this encounter Care Teams Promotions Assistant Relationship Specialty Start Date End Date Elsewhere, Pcp PCP - General Internal Medicine 06/26/22 documented as of this encounter
--- OUTSIDE RECORDS SUMMARY | 2024-11-14 19:44 | XMS_ITS | Clinical Summary ---
Author Organization [facility] Address [address] [address] Care Team Providers Care Carriage Setter Name Role Phone Lew Grewal MD Primary Care Provider [phone] Source Comments You are receiving this document as you are listed as the primary care provider,follow-up provider, or the patient has been referred to you for consultation.This is in compliance with the Medicare andVeterans Health Administrationcaid EHR Incentive Program,which states Providers who transition their patient to another setting of careor provider of care or refers their patient to another provider of care shouldprovide summary care record for each transition of care or referral. [facility] Allergies Active Allergy Reactions Criticality Noted Date Comments Sulfamethoxazole-Trimethoprim Hives 2010 Nitrofurantoin Hives 10/19/2010 Medications NEXIUM 40 MG OR CPDRIndications:Me ramya loss,Multiple sclerosis (HRC) 1 daily Acti ve NORTRIPTYLINE HCL 50 MG OR CAPSIndications:Mu ltiple sclerosis (C) 2 po hs 60 6 6 Active METFORMIN HCL 500 MG OR TABS 1 twice daily Activ e TOPROL XL OR 1 daily Active LISINOPRIL 40 MG OR TABS Take one tablet by mouth every day. Active ZOMIG 5 MG OR TABS 1 tab prn A ctive CYMBALTA 30MG ORAL CAPS 1 tab qam, 2 tabs qhs Active LORAZEPAM 0.5 MG OR TABS 1 tab qhs Active salsalate (AKA DISALCID) 750 MG tabletIndications: Myalgia and myositis, unspecified Take 2 Tabs by mouth two times a day. 60 Tab 0 2 Active baclofen (LIORESAL) 10 MG tablet Take 1 Tablet by mouth. 1 Active QUEtiapine (SEROQUEL) 100 MG tablet QUEtiapine 100 mg oral tablet See Instructions, 1 tab(s) PO in AM, 4 tab s at bedtime 4 Active diclofenac (VOLTAREN) 1 % gelIndications:Art hralgia, unspecified joint,Primary osteoarthritis of both hands Apply 2 g to skin 4 times a day. 200 g 11 9 Active oxyCODONE (ROXICODONE) 5 MG immediate release tablet Take 1 Tablet by mouth. 4 Active Active Problems Problem Noted Date Diagnosed [...] Resolved Date Memory loss 09/06/2005 10/29/2005 Immunizations Immunization Administration Dates Next Due Flu Vac (3+ yrs) 03/13/2000 Social History Tobacco Use Types Packs/Day Years Used Date Smoking Tobacco: Smoker, Current Status Unknown Cigarettes 1 45 Smokeless Tobacco: Never Alcohol Use Standard Drinks/Week Comments No 0 (1 standard drink = 0.6 oz pur e alcohol) Comments No Sex and Gender Information Value Date Recorded Sex Assigned at Not on file Legal Sex Female 3:34 AM CDT Gender Identity Not on file Sexual Orientation [...] Colon Cancer Screening Plan Due 1955 Diabetes: Albumin/Creatinine Ratio, Urine 1955 Diabetes: Foot Exam 1955 Diabetes: Lipid Panel 1955 Hep B Immunization Discussion 1955 Adult Preventive Visit 05/11/2000 05/11/1999 Mammogram 11/04/2004 11/05/2003 Diabetes: HGBA1C 04/21/2011 10/19/2010, 09/18/2005 Diabetes: Creatinine 10/20/2011 10/19/2010, 09/19/19 Diabetes: Eye Exam 11/11/2011 11/10/2010 DTaP/Tdap/Td Vaccine (3 - Tdap) 08/21/2014 08/21/2004, 08/21/2004 Zoster/Shingles Vaccine (2 of 3) 07/17/2016 05/22/2016 COVID-19 Vaccine (1 - 2023- season) 2023 Pneumococcal Vaccine 50+ Yrs (3 of 3 - PCV20 or PCV21) 09/20/2024 09/21/2019, 08/12/2015, 06/29/2014, Additional history exists Influenza Vaccine (#1) 2024 6, 01/10/2015, 02/11/2014, Additional history exists RSV Vaccine (1 - 1-dose 75+ series) 2029 Hep C Screening (Preventive Services) Completed 01/12/2019 HepA Vaccine Aged Out No longer eligi ble based on patient's age to complete this topic HepB Vaccine Aged Out No longer eligi ble based on patient's age to complete this topic Hib Vaccine Aged Out No longer eligi ble based on patient's age to complete this topic IPV (Polio) Vaccine Aged Out No longe r eligible based on patient's age to complete this topic MCV4 Vaccine Aged Out No longer eligi ble based on patient's age to complete this topic Meningococcal B Vaccine Aged Out No l onger eligible based on patient's age to complete this topic Procedures Procedure Name Priority Date/Time Associated Diagnosis Comments HEPATITIS C ANTIBODY, WITH REFLEX (ANTI-HCV) Routine 01/12/2019 2:27 PM CDT Arthralgia, unspecified [...] Negative (Non Reactive) 01/12/2019 7:42 PM CDT [facility] Comment:Antibodies to HCV no t detected. Does not exclude the possiblity of exposure to HCV. Blood Venipuncture / Unknown 01/12/2019 2:27 PM CDT 01/12/2019 2:27 PM CDT Kenrick Juarez MD LAB_1 Final Result [facility] [address] * BASIC METABOLIC PANEL (10/19/2010 2:58 PM CDT) BUN 14 7 - 20 mg/dl [facility] Sodium 140 135 - 145 mmol/L [facility] Potassium 4.5 3.5 - 5.3 mmol/L COUNT [facility]CLUDES [facility] Chloride 101 95 - 106 mmol/L [facility] CO2 27 22 - 30 mmol/L [facility] Glucose 151 70 - 180 mg/dl COUNT [facility]CLUDES [facility] Creatinine 0.76 0.52 - 1.04 mg/dl COUNT [facility]CLUDES [facility] GFR, Estimated >60.0 >60 ml/min/1.7 3m2 COUNT [facility]CLUDES [facility] GFR, Est., If Black >60.0 >60 ml/min/1.7 3m2 COUNT [facility]CLUDES [facility] Calcium 9.8 8.4 - 10.2 mg/dl COUNT [facility]CLUDES [facility] Anion Gap (calc.) 12 7 - 16 mmol/L COUNT [facility]CLUDES [facility] 10/19/2010 2:58 PM CDT 10/19/2010 3:04 PM CDT Marcello Monterroso MD LAB_1 Final Result Performing Organization Address [facility] Co de Phone Number COUNT INCLUDES [facility] [address] [phone] * (ABNORMAL) HGB A1C (10/19/2010 2:58 PM CDT) Hgb A1c 8.9(H) 4.3 - 6.1 % [facility] Comment: The usual A1C goal for people with diabetes, age 18-75, is < 7.0%. Physicians may recommend a higher or lower goal for specific individuals. 10/19/2010 2:58 PM CDT 10/19/2010 3:04 PM CDT Marcello Monterroso MD LAB_1 Final Result Performing Organization Address [facility] Co de Phone Number COUNT INCLUDES [facility] [address] [phone] * MAMMOGRAM BILATERAL DIAGNOSTIC (11/05/2003 3:06 PM [...] EVALUATION OF PREV BREAST MASS RT BREAST, PREV DONE AT [facility], us [facility] Final Result from Last 3 Months or Most Recently Relevant to Health Maintenance [facility] [place] [id number] [place] [id number] Care Teams Carriage Setter Relationship Specialty Start Date End Date Lew Grewal MD [address] [place] [address] [place] [id number] PCP - General Family Practice 12/10/18
--- OUTSIDE RECORDS SUMMARY | 2024-11-14 19:44 | XMS_ITS ---
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 on 06/12/2024 Mass Ureter 05/12/2024 Stone Pancreatic Duct 01/01/2023 Weakness General 10/23/2022 [...] Mobility 0 09/06/2005 09/06/2022 Multiple Sclerosis 11/06/2002 Current Treatment and Therapy Plans No current plan information found. Past Treatment and Therapy Plans No past plan information found. Lifetime Dose Tracking * Chemical Lifetime Dose Automatic Entry Manual Entr y Radiation 656.6 mGy 656.6 mGy 0 mGy Fluoro Time 62.5 minutes 62.5 minutes 0 minutes DAP (uGy-m2) 99.59 uGy-m2 99.59 uGy-m2 0 uGy-m2
--- OUTSIDE RECORDS SUMMARY | 2024-11-14 19:44 | XMS_ITS | Clinical Summary ---
Author Organization [facility] Address [address] [place] [address] Care Team Providers Care Coal Trammer Name Role Phone Elsewhere, Pcp Primary Care Provider Unavailabl e Source Comments Patient records contain information from all sites at [facility]. For routine questions regarding patient records, call [phone] during business hours, M-F 8:00 AM - 5:00 PM Central Time. Record requests for emergency care only can be directed to [phone] at any time.[facility] Allergies Active Allergy Reactions Criticality Noted Date Comments Lactose GI intolerance 10/16/2002 Nitrofurantoin Hives (Reselect Reaction) 01/17/2010 Pollen Extracts Other (see comments) 02/02/2011 Prednisone Myalgia 07/03/2002 Arm turned purple. Sulfamethoxazole Hives only, no other systemic symptoms 10/04/2010 Sulfamethoxazole-Trimetho prim Hives (Reselect Reaction) 01/17/2010 Trimethoprim Hives only, no other systemic symptoms 05/17/2021 Medications QUEtiapine (SEROquel) 400 mg tablet Take 400 mg by mouth at bedtime. 4 Active oxyBUTYnin (DITROPAN-XL) 10 mg 24 hr tablet Take 10 mg by mouth at bedtime. Active Accu-Chek Guide test strips 3 (three) times a day. for testing 3 Active cyclobenzaprine (FLEXERIL) 10 mg tablet Take 10 mg by mouth 3 (three) times a day as needed. 3 Active SUMAtriptan (IMITREX) 100 mg tablet Take [...] 5 mg tablet Take by mouth daily. 2 Active fentaNYL (DURAGESIC) 12 mcg/hr patch States it fell off 3 Active acetaminophen (TYLENOL) 500 mg tablet Take 1,000 mg by mouth every 6 (six) hours as needed. 3 Active clotrimazole (LOTRIMIN) 1 % cream APPLY TO AFFECTED AREA(S) TWO TIMES A DAY FOR 7 DAYS 4 Active hydrocortisone (INSTACORT) 0.5 % cream ONE APPLICATION TOPICALLY TWICE DAILY NEEDED FOR RASH 4 Active nystatin (MYCOSTATIN) 100,000 unit/mL suspension TAKE 4MLS BY MOUTH FOUR TIMES DAILY FOR 7 DAYS; ADMINISTER ONE HALF DOSE IN EACH SIDE OF THE MOUTH 4 Active QUEtiapine (SEROquel) 100 mg tablet Take 100 mg by mouth at bedtime. 4 Active oxyCODONE (ROXICODONE) 5 mg immediate release tablet Take 5 mg by mouth every 6 (six) hours as needed for pain. For 30 days. Active varenicline (Chantix Ubd) 0.5 mg (11)- 1 mg (42) tablet Take 2 tablets by mouth 2 (two) times a day with meals. 4 Active baclofen (LioresaL) 10 mg tablet Take 1 tablet by mouth every 4 (four) hours PM. 4 Active phenazopyridine (Pyridium) 100 mg tablet Take 1 tablet (100 mg total) by mouth 3 (three) times a day as needed for painful urination for up to 9 doses. 9 tablet 5 Active DULoxetine (Cymbalta) [address] capsule TAKE ONE CAPSULE BY MOUTH EVERY EVENING WITH 30MG IN THE MORNING FOR A TOTAL OF 90 MG DAILY Active aspirin [address] tablet Take 81 mg by mouth. Active nortriptyline (Pamelor) 50 mg capsule Take 2 capsules by mouth at bedtime. 1 Active lidocaine 4 % adhesive patch,medicated Apply to intact skin to cover most painful area for max 12hr per 24hr period. 4 Active cholecalciferol (Vitamin D3) 50 mcg (2,000 Unit) tablet Take 2,000 Units by mouth. Active amLODIPine-benaz epril (LotreL) 10-20 mg per capsule Take 1 capsule by mouth daily. Active trospium (Sanctura) 20 mg tablet Take 1 tablet (20 mg total) by mouth 2 (two) times a day as needed (bladder spasms). 45 tablet 1 5 Active varenicline tartrate (Chantix) 1 mg tablet Take 1 tablet by mouth 2 (two) times a day. 5 Active insulin glargine (Lantus Solostar U-100 Insulin) 100 unit/mL (3 mL) penIndications:D iabetes Mellitus Type 2 With Other Complication (HCC) Inject 20 Units under the skin daily. Pharmacy select brand per patient insurance/prefe rence. 20 mL 3 5 07/14/19 26 Active tamsulosin (Flomax) 0.4 mg 24 hr capsule Take 1 capsule (0.4 mg total) by mouth daily as needed (stent/flank pain). 30 capsule 1 5 Active insulin aspart U-100 (NovoLOG Flexpen U-100 Insulin) 100 unit/mL (3 mL) pen Inject 5 Units under the skin 3 (three) times a day with meals. Inject 5 Units under the skin 3 (three) times a day with meals (can decrease the dose to 3 units at dinner time if glucose is low) 15 mL 2 5 Active blood-glucose sensor (Seva Coffeecom G7 Sensor) deviceIndication s:Diabetes Mellitus Type 2 (HCC) 1 each as directed. 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 Nicotine Dependence 10/05/2024 1:30 PM CDT Telemedicine Division of Endocrinology in [place], [place] [address] [place] [phone] Emilia Medina M.D. Diabetes Mellitus Type 2 With Diabetic Neuropathy (HCC) 10/01/2024 11:00 AM CDT Clinical Communication Virtual Review in [place], [place] [address] [place] [address] Pre-visit Intake 09/02/2024 Results Follow-Up Department of Urology in [address] [phone] Luis Andrew M.D., M.P.H. Cytology Non-SPRAY DRIER OPERATOR 09/01/2024 Clinical Communication Department of Urology in [address] [phone] Luis Andrew M.D., M.P.H. Asymptomatic Pertussis Post-exposure Antibiotic Prophylaxis 08/31/2024 12:56 PM CDT Anesthesia Event Outpatient Procedure Center in [address] [phone] Chevy Amaral, CAKE ICER, ITEM PROCESSOR, CHRISTINAA Marino Engle M.D. 08/31/2024 12:25 PM CDT Ancillary Procedure Department of General Surgery 08/31/2024 12:21 PM CDT - 08/31/2024 2:43 PM CDT Surgery Outpatient [facility] in [place], [place] [address] [place] [phone] Luis Rodriguez M.D. URETEROSCOPY WITH BRUSH BIOPSY 08/31/2024 11:28 AM CDT - 08/31/2024 3:53 PM CDT Hospital Encounter Outpatient Procedure Center in [place], [place] [address] [place] [phone] Luis Rodriguez M.D. Mass Ureter Discharge Disposition: Home or Self Care 08/27/2024 Clinical Communication Department of Urology in [address] [phone] Carlitos Pfeiffer OPC PROC 08/26/2024 3:32 PM CDT - 08/26/2024 11:59 PM CDT Hospital Encounter Department of Laboratory Medicine in [address] [place] [address] Luis Andrew M.D., M.P.H. Mass Ureter Discharge Disposition: Home or Self Care 08/16/2024 Orders Only Division of Endocrinology in [place], [place] [address] [place] [address] Emilia Medina M.D. 08/14/2024 Clinical Communication Department of Radiology in [place], [place] [address] [place] [address] External, Ordering Provider, Yonny Order Request (Barium Swallow Study External Referral) from Last 3 Months Immunizations Immunization Administration Dates Next Due HZV (ZOSTAVAX) 05/22/2016 [...] Marifer Relation Name Status Comments Father Umang Alive Mother Marifer Alive Social History Tobacco Use Types Packs/Day Years Used Date Smoking Tobacco: Some Days Cigarettes 0.3 56.7 Started: 04/01/1968 Passive Smoke Exposure: Never Smokeless Tobacco: Never Tobacco Cessation:Ready to Q uit: Not Asked; Counseling Given: Not Answered Alcohol Use Standard Drinks/Week Comments Never 0 (1 standard drink = 0.6 oz pur e alcohol) [facility] Utilities Answer Date Recorded In [...] your living situation today? 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 Gender Identity Female 01/01/2023 9:08 AM CDT Sexual Orientation Straight 01/01/2023 9: 08 AM CDT Last Filed Vital Signs Vital Sign Reading Time Taken Comments Blood Pressure 146/90 08/31/2024 2:45 PM CDT Pulse 64 08/31/2024 3:35 PM CDT Temperature 37.3 C (99.1 F) 08/31/2024 2:22 PM CDT Respiratory Rate 16 08/31/2024 3:35 PM CDT Oxygen Saturation 94% 08/31/2024 3:35 PM CDT Inhaled Oxygen Concentration - - Weight 53.3 kg (117 lb 8.1 oz) 08/31/2024 11:53 AM CDT Height 162.3 cm (5' 3.9) 08/31/2024 11:53 AM CD T Body Mass Index 20.23 08/31/2024 11:53 AM CDT Plan of Treatment Health Maintenance Due Date Last Done Comments CT Colonography 1955 Diabetic Office Visit with Foot Exam 1955 FIT 1955 Generalized Anxiety (CLIFTON-7) 1955 Hepatitis C Screening 1955 Diabetic Eye Exam 11/11/2011 11/10/2010 Urine Albumin 05/04/2012 05/04/2011 Mammogram 10/15/2013 10/15/2012 (Perf ormed elsewhere), 05/30/2012 (Performed elsewhere), 05/11/2011, Additional history exists Hepatitis B Vaccines (1 of 3 - Risk 3-dose series) 2014 RSV vaccine - (32-36 weeks) or 60+ years (1 - Risk 60-74 years 1-dose series) 2014 Zoster Vaccines (1 of 2) 07/17/2016 05/22/2016 Controlled Substance Agreement 02/19/2023 Controlled Substance Monitoring (PHQ-9) 02/19/2023 Controlled Substance Monitoring (UDS) 02/19/2023 Opioid Risk Tool (ORT) 02/19/2023 PEG assessment for Opioid therapy 02/19/2023 COVID-19 Vaccine ( season) 2023 Opioid Use Disorder (OUD) Screening 02/20/2024 Hemoglobin A1C 09/15/2024 06/15/2024, 12/31, 09/20/2023, Additional history exists Pneumococcal vaccine (50+ years) (3 of 3 - PCV20 or PCV21) 09/20/2024 09/21/2019, 08/12/2015, 06/29/2014, Additional history exists Influenza Vaccine (#1) 2024 6, 02/17/2016, 01/10/2015, Additional history exists Creatinine Level (Kidney Function Test) 05/19/2025 05/19/2024, 05/11/2024, 05/11/2024, Additional history exists Potassium Level 05/19/2025 05/19/2024, 05/02, 03/17/2024, Additional history exists Sodium Level 05/19/2025 05/19/2024, 05/02, 03/17/2024, Additional history exists Office Visit for Blood Pressure Check / Re-check 05/22/2025 05/22/2024 Cologuard 05/27/2026 05/27/2023 Lipid (Cholesterol) Screening 09/19/2028 09/20/2023, 11/22/2022, 06/02/2014, Additional history exists DTaP,Tdap,and Td Vaccines (4 - Td or Tdap) 07/24/2032 07/24/2022, 01/30/2006, 08/21/2004, Additional history exists Colorectal Cancer Screening 12/30/2033 ZZColonoscopy 12/30/2033 12/31/2023, 08/30 (Performed elsewhere), 06/13/2004 12/31/2023, 08/30 (Performed elsewhere), 06/13/2004 Lung Cancer Screening Discontinued 09/19/2023, 011 Fall Risk Screen (Annual) Completed 08/31/2024 IPV Vaccines Aged Out No longer eligi ble based on patient's age to complete this topic Medical Devices Explanted Type Area Industrial Education Instructor Device Identifier Shelf Expiration Date Model / Serial / Lot [facility] Wdg 8.5fx22 - [id number] Implanted:Qt y: 1 on 05/08/2023 by Alverto Bunch M.D. at [facility] Explanted:Qt y: 1 on 07/08/2023 by Jose Roberto Gamino ra, M.D. at [facility]reatic Stent [facility] 03/12/2026 [id number] / / [id number] Description:8.5 x 12 [facility] Wdg 10fx22 - [id number] Implanted:Qt y: 1 on 07/08/2023 by Jose Roberto Gamino ra, M.D. at [facility] Explanted:Qt y: 1 on 12/31/2023 at [facility] 05/29/2026 [id number] / / [id number] [facility] 7fx24 - S. - [id number] Implanted:Qt y: 1 on 05/25/2024 by Bossman Chen M.D., M.S. at [facility] [employer] Explanted:Qt y: 1 on 06/12/2024 by Sherri Zamora M.D. Ureteral Stent Right: Ureter [employer] [id number] 10/04/2026 [id number] / . / [id number] Stnt Uret 2pigtl Prc 4.8fx26 - [id number] Implanted:Qt y: 1 on 08/31/2024 by Luis Rodriguez M.D. at [facility] [employer] Explanted:Qt y: 1 on 09/04/2024 Ureteral Stent Right: Ureter [employer] [id number] 05/05/2027 [id number] / / [id number] Procedures Procedure Name Priority Date/Time Associated Diagnosis Comments FL FLUORO LESS THAN 1 HOUR RAD - Routine (most inpatients and all outpatients) 08/31/2024 2:35 PM CDT CYTOLOGY NON-SPRAY DRIER OPERATOR Routine 08/31/2024 2:03 PM CDT Mass Ureter LDA ANE NON-SURGICAL AIRWAY Routine 08/31/2024 1:06 PM CDT CYSTOURETHROSCOPY WITH PLACEMENT URETERAL STENT 08/31/2024 12:35 PM CDT Mass Ureter Special Needs Primary Kamran RETROGRADE PYELOGRAM 08/31/2024 12:35 PM CDT Mass Ureter Special Needs Primary Kamran URETEROSCOPY WITH LASER ABLATION TUMOR 08/31/2024 12:35 PM CDT Mass Ureter Special Needs Primary Kamran SURGERY IMAGE EXAM Routine 08/31/2024 12:25 PM CDT GLUCOSE POCT, B Routine 08/31/2024 11:57 AM CDT BACTERIAL CULTURE, AEROBIC + SUSC, URINE Routine 08/26/2024 3:52 PM CDT Mass Ureter URINALYSIS WITH MICROSCOPIC Routine 08/26/2024 3:51 PM CDT Mass Ureter HEMOGLOBIN A1C, B Routine 06/15/2024 11:39 AM CDT Diabetes Mellitus Type 2 With Diabetic Neuropathy (HCC) COMPREHENSIVE METABOLIC PANEL, S/P STAT 05/19/2024 6:09 PM FITNESS STUDIES TEACHER COLONOSCOPY Routine 12/31/2023 3:12 PM CDT Loss Weight Pain Abdominal Chronic LIPID PANEL, S Routine 06/02/2014 6:51 AM FITNESS STUDIES TEACHER BI BREAST SCREENING UNILATERAL Routine 05/11/2011 2:00 PM FITNESS STUDIES TEACHER ALBUMIN, RANDOM, U Routine 05/04/2011 12:[address] CHEST WITH IV CONTRAST Routine 03/13/2011 1:35 PM FITNESS STUDIES TEACHER from Last 3 Months or Most Recently Relevant to Health Maintenance Results * FL Fluoro Less Than 1 Hour (08/31/2024 2:35 PM CDT) Narrative [id number] - 08/31/2024 2:37 PM CDT This exam does not require a radiologist review or interpretation. Please refer to the patient's medical record on this date for clinical details. us China Galindo M.D. IMG FLUOROSCOPY PROCEDURE S Final Result [id number] NA * (ABNORMAL) Cytology Non-SPRAY DRIER OPERATOR (08/31/2024 2:03 PM CDT) (A ) 09/01/2024 5:25 PM CDT DTL Participated in the Interpretation Madhav Acevedo M.D. -Pathology Resident(A) 09/01/2024 5:25 PM CDT DTL Report electronically signed by Yadira Loera., Ch.B., M.S. I verify that I have examined all relevant slides/materi als for the specimen(s) and rendered or confirmed the diagnosis. (A) 09/01/2024 5:25 PM CDT DTL Gross Description Received 10 cc of clear fluid with 1 brush.(A) 09/01/2024 5:25 PM CDT DTL Source A. Urine, Right proximal ureteral, brushing(A) 09/01/2024 5:25 PM CDT DTL Interpretation A. Urine, Right proximal ureteral, brushing (ThinPrep): Atypical urothelial cells. (A) 09/01/2024 5:25 PM CDT DTL [place] (Ureter, Right) 08/31/2024 2:03 PM CDT Luis Rodriguez M.D. LAB SURG PATH ORDERABLES Juli wilmer Result [facility] [address] [place] [address], [facility] DTL [address] [place] [address] * LDA ANE NON-SURGICAL AIRWAY (08/31/2024 1:06 PM CDT) Narrative Chevy Amaral APRN, CRNA, MNA - 08/31/2024 1:06 PM CDT Chevy Amaral APRN, CRNA, MNA 08/31/2024 1:07 PM Airway Date/Time: 08/31/2024 1:06 PM Performed by: Chevy Amaral APRN, CRNA, MNA Authorized by: Chevy Amaral APRN, CRNA, MNA Patient location during procedure: OR / Procedure Area PROCEDURE DETAILS: Mask difficulty assessment: easy mask Final airway type: supraglottic airway Device size: 3 Number of attempt to successful placement: 1 Supraglottic device: LMA unique Supraglottic device size: 3 Airway confirmation: bilateral breath sounds, positive ETCO2 and bilateral chest rise Other previous techniques attempted: none PRE PROCEDURE DETAILS: Pre evaluation for airway management: procedure Urgency: elective Preop assessment of probable difficulty: no difficulty anticipated Preoxygenation: bag valve mask SEDATION / ANESTHESIA Anesthesia method: anesthesia POST PROCEDURE DETAILS: Procedure outcome: successful Notable Events: no complications Chevy J Amaral CAKE ICER, ITEM PROCESSOR, MNA ANESTHESIA ORDERA BLES Final Result * URETEROSCOPY WITH LASER ABLATION TUMOR-Surgery Image Exam (08/31/2024 12:25 PM CDT) 08/31/2024 12:2 4 PM CDT Narrative IIMS - 08/31/2024 2:29 PM CDT This order has been created and auto-finalized to support the import of images acquired without order. The clinical documentation to support these images can be found on the encounter that produced images. us Provider Not In System IMG NON RAD IMAGING PROCE DURES Final Result Performing Organization Address City/[facility]/ZIP Co de Phone Number IIMS NA * (ABNORMAL) Glucose, POCT (08/31/2024 11:57 AM CDT) Glucose, POCT, B 207(H) 70 - 140 mg/dL 08/31/2024 12:06 PM CDT PCMO Site Capillary 08/31/2024 12:06 PM CDT PCMO Blood 08/31/2024 11:5 7 AM CDT 08/31/2024 12:06 PM CDT Unknown Provider LAB POCT ORDERABLES-MANUAL Juli l Result Performing Organization Address [facility] Co de Phone Number [facility] [address] [place] [address], [facility] POC [address] [place] [address] * Bacterial Culture, Aerobic + Susceptibility, Urine (08/26/2024 3:52 PM CDT) Urine Culture No growth after 1 day of incubation. 08/27/2024 3:39 PM CDT ECLR Urine (Urine, Midstream) 08/26/2024 3:52 PM CDT 08/26/2024 8:55 PM CDT Comment:Specimen Source Site : Urine Luis Andrew M.D., M.P.H. LAB MICROBIOLOGY - GENERA L ORDERABLES Final Result Performing Organization Address City/[facility] Co de Phone Number [facility] [address] [place] [address], [place] ECLR [facility] [place] [address] [place] [address] * (ABNORMAL) Urinalysis, with Microscopic: Urine, Midstream (08/26/2024 3:51 PM CDT) Source Urine, Urine, Midstream 08/26/2024 3:51 PM CDT CNFL Clarity Clear Clear 08/26/2024 3:53 PM CDT CNFL Color Yellow 08/26/2024 3:53 PM CDT CNFL Comment: ----REFERENCE VALUE---- Colorless Yellow Hyacinth Blood Small(A) Negative 08/26/2024 3:53 PM CDT CNFL Nitrite Negative Negative 08/26/2024 3:53 PM CDT CNFL Leukocyte Esterase Negative Negative 08/26/2024 3:53 PM CDT CNFL Protein 100(A) mg/dL 08/26/2024 3:53 PM CDT CNFL Comment: ----REFERENCE VALUE---- Negative Trace Glucose 500(A) Negative mg/dL 08/26/2024 3:53 PM CDT CNFL Ketones, QI(U) Negative Negative mg/dL 08/26/2024 3:53 PM CDT CNFL Bilirubin Negative Negative 08/26/2024 3:53 PM CDT CNFL pH 6.0 5.0 - 8.0 08/26/2024 3:53 PM CDT CNFL Specific [place] 1.025 1.001 - 1.035 08/26/2024 3:53 PM CDT CNFL Urobilinogen 0.2 0.2 - 1.0 mg/dL 08/26/2024 3:53 PM CDT CNFL White Blood Cells Occ-3 /hpf 08/26/2024 4:28 PM CDT CNFL Comment: ----REFERENCE VALUE---- Males: 0-3 Females: 0-10 Unknown: 0-10 Red Blood Cells 3-10(A) 0 - 2 /hpf 4:28 PM CDT CNFL Dysmorphic Red Blood Cells <=25 <=25 % 08/26/2024 4:28 PM CDT CNFL Crystals Calcium Oxalate(A) None Seen /lpf 08/26/2024 4:28 PM CDT CNFL Squamous Cells Occ-3 /hpf 08/26/2024 4:28 PM CDT CNFL Bacteria None Seen None Seen 08/26/2024 4:28 PM CDT CNFL Urine (Urine, Midstream) 08/26/2024 3:51 PM CDT 08/26/2024 3:51 PM CDT us Luis Andrew M.D., M.P.H. LAB URINE ORDERABLES Juli l Result Performing Organization Address [facility]/[place] [address], [place] [address] * (ABNORMAL) Hemoglobin A1c (06/15/2024 11:39 AM CDT) Hemoglobin A1c, B 8.7(H) 4.2 - 5.6 % 06/15/2024 11:54 AM CDT CNFL Comment: Hemoglobin A1c values greater than or equal to 6.5 percent are diagnostic for diabetes mellitus. Diagnosis should be confirmed by repeat testing. In diabetic patients, HbA1c goals should be discussed with healthcare provider. Blood (Blood, Venous) 06/15/2024 11:39 AM CDT 06/15/2024 11:41 AM CDT us Emilia Medina M.D. LAB BLOOD ADD-[place] [address], [place] [address] * (ABNORMAL) Comprehensive Metabolic Panel (05/19/2024 6:09 PM FITNESS STUDIES TEACHER) Potassium, P 4.0 3.6 - 5.2 mmol/L 05/19/2024 6:30 PM FITNESS STUDIES TEACHER CNFL Sodium, P 138 135 - 145 mmol/L 05/19/2024 6:30 PM FITNESS STUDIES TEACHER CNFL Chloride, P 98 98 - 107 mmol/L 05/19/2024 6:30 PM FITNESS STUDIES TEACHER CNFL Bicarbonate, P 32(H) 22 - 29 mmol/L 05/19/2024 6:30 PM FITNESS STUDIES TEACHER CNFL Anion Gap, P 8 7 - 15 05/19/2024 6:30 PM FITNESS STUDIES TEACHER CNFL BUN (Blood Urea Nitrogen), P 11 6 - 21 mg/dL 05/19/2024 6:30 PM FITNESS STUDIES TEACHER CNFL Creatinine 0.66 0.59 - 1.04 mg/dL 05/19/2024 6:30 PM FITNESS STUDIES TEACHER CNFL Estimated GFR (eGFR) >90 >=60 mL/min/BS A 05/19/2024 6:30 PM FITNESS STUDIES TEACHER CNFL Comment: Estimated GFR calculated using the 2020 CKD_EPI creatinine equation. Calcium, Total, P 8.7(L) 8.8 - 10.2 mg/dL 05/19/2024 6:30 PM FITNESS STUDIES TEACHER CNFL Glucose, P 337(H) 70 - 140 mg/dL 05/19/2024 6:30 PM FITNESS STUDIES TEACHER CNFL Protein, Total, P 6.2(L) 6.3 - 7.9 g/dL 05/19/2024 6:30 PM FITNESS STUDIES TEACHER CNFL Albumin, P 3.8 3.5 - 5.0 g/dL 05/19/2024 6:30 PM FITNESS STUDIES TEACHER CNFL Aspartate Aminotransferase (AST), P 28 8 - 43 U/L 05/19/2024 6:30 PM FITNESS STUDIES TEACHER CNFL Alkaline Phosphatase, P 104 35 - 104 U/L 05/19/2024 6:30 PM FITNESS STUDIES TEACHER CNFL Alanine Aminotransferase (ALT), P 26 7 - 45 U/L 05/19/2024 6:30 PM FITNESS STUDIES TEACHER CNFL Bilirubin, Total, P <0.2 0.0 - 1.2 mg/dL 05/19/2024 6:30 PM FITNESS STUDIES TEACHER CNFL Blood (Blood, Venous) 05/19/2024 6:09 PM FITNESS STUDIES TEACHER 05/19/2024 6:11 PM FITNESS STUDIES TEACHER Madhav Basurto APRN, C.N.P., D.N.P. LAB BLOOD AD D-ON Final Result [facility] [address] [place] [id number], [facility] CNFL [facility] in [address] [address] * Colonoscopy (12/31/2023 3:12 PM CDT) 12/31/2023 3:12 PM CDT Impressions LILLIE PROVATION - 12/31/2023 3:32 PM CDT Post-op Diagnoses: - No gross lesions identified, however, given poor preparation small lesions and polyps cannot be ruled out. - Biopsies were obtained in the descending colon and in the ascending colon to rule out microscopic colitis. - Hemorrhoids found on perianal exam. Narrative LILLIE PROVATION - 12/31/2023 3:32 PM CDT Kev 6 GI GI Patient Name: Yary Prince Date of : 1955 Age: 68 Procedure Date: 12/31/2023 Procedure: Colonoscopy Providers: Jose Roberto Patterson MD, Moriah Santana MD (Fellow) Referring Provider: Jose Roberto Patterson MD Pre-op Diagnoses: Positive Cologuard test, Clinically significant diarrhea of unexplained origin, Rectal bleeding, Weight loss Recommendation: - PATHOLOGY/MICROBIOLOGY FOLLOW-UP: The ordering provider is responsible for reviewing results from specimens obtained during this endoscopic procedure and communicating the findings to the patient. If guidance is needed for interpreting endoscopic findings or pathology results, please consider a gastroenterology e-consult. - Patient has a contact number available for emergencies. The signs and symptoms of potential delayed complications were discussed with the patient. Return to normal activities tomorrow. Written discharge instructions were provided to the patient. - Resume previous diet. - Continue present medications. - Await pathology results. - Consider repeat colonoscopy if within patient's goals of care given poor bowel preparation. Findings: Hemorrhoids were found on perianal exam. No gross lesions identified, however, given poor preparation, small lesions and polyps cannot be ruled out. Biopsies were obtained with cold forceps for evaluation of microscopic colitis in the descending colon and in the ascending colon. Procedural Details: The patient was seen, evaluated, history reviewed, airway and heart-lung exams were performed by licensed provider and were satisfactory for planned level of sedation care. The risks, benefits and alternatives for the procedure and sedation were discussed and informed consent was obtained. A procedural pause was conducted in the presence of assisting personnel to verify the correct patient identity and procedure to be performed. Throughout the procedure, the patient's blood pressure, pulse, and oxygen saturations were monitored continuously. The Pediatric Colonoscope was introduced under direct vision through the anus and advanced to the cecum, identified by the appendiceal orifice. The colonoscopy was technically difficult and complex due to poor bowel prep with stool present. Successful completion of the procedure was aided by changing the patient to a supine position. The quality of the bowel preparation was evaluated using the BBPS ([place] Bowel Preparation Scale) with scores of: Right Colon = 1 (portion of mucosa seen, but other areas not well seen due to staining, residual stool and/or opaque liquid), Transverse Colon = 1 (portion of mucosa seen, but other areas not well seen due to staining, residual stool and/or opaque liquid) and Left Colon = 1 (portion of mucosa seen, but other areas not well seen due to staining, residual stool and/or opaque liquid). The total BBPS score equals 3. The appendiceal orifice and the rectum were photographed. Estimated Blood Loss: None. Complications: No immediate complications. Sedation: General faucet polisher Participation: I was present and participated during the entire procedure, including non-owens portions. Jose Roberto Patterson MD 12/31/2023 3:32:34 PM This report has been signed electronically. Number of Addenda: 0 us Jose Roberto Patterson M.D. GI PROCEDURE ORDERABLE S Final Result [employer] NA * (ABNORMAL) Lipid Panel (06/02/2014 6:51 AM FITNESS STUDIES TEACHER) Calculated LDL Test Not Performed 100 - 129 MGDL POWERCHART Comment:LDL Calculated canno t be performed because the Triglyceride is > 400 mg/dL. A measured LDL has been ordered. Cholesterol, Total 169 0 - 200 MGDL POWERCHART Comment: <200 mg/dL Desirable 200-239 mg/dL Borderline High >239 mg/dL High HX HDL 46 35 - 60 MGDL POWERCHART Comment: > 60 mg/dL Desirable 40 60 mg/dL Low Risk <40 mg/dL Undesirable Triglycerides 511(H) 9 - 150 MGDL POWERCHART Comment: <150 mg/dL Desirable 150-199 mg/dL Borderline High 200-499 mg/dL High > 499 Very High Total Cholesterol/HDL Ratio 4 POWERCHART HXLDL/HDL Not performed POWERCHART Blood 06/02/2014 6:51 AM FITNESS STUDIES TEACHER Kvng Mario III, M.D. LAB BLOOD ADD-ON Final Result POWERCHART * BI Breast Screening (05/11/2011 2:00 PM FITNESS STUDIES TEACHER) Anatomical Region Laterality Modality Breast N/A Mammography 05/11/2011 2:00 PM FITNESS STUDIES TEACHER Impressions 05/11/2011 2:46 PM FITNESS STUDIES TEACHER NEGATIVE There is no mammographic evidence of malignancy. RECOMMENDATION: A 1 year screening mammogram is recommended. The patient will receive a letter notifying her of the results. Justin Landa M.D. dla/penrad:05/11/2011 14:46:05 letter sent: 1S/2S - Negative Screen Mammogram BI-RADS: 1 Negative Electronically signed by: Reba Landa MD [id number] 11-May-2011 14:46 Narrative 05/11/2011 2:46 PM FITNESS STUDIES TEACHER 11-May-2011 14:00:00 Exam: B MG /Screening Exam [...] other findings are seen in either breast. Procedure Note Macrina Landa M.D. - 06/29/2017 [...] letter notifying her of the results. Justin olivaa/anabel:05/11/2011 14:46:05 letter sent: 1S/2S - Negative Screen Mammogram BI-RADS: 1 Negative Electronically signed by: Reba Landa MD [id number] 11-May-2011 14:46 us Nathaly Breaux M.D. IMG BI PROCEDURES Final Result * (ABNORMAL) Microalbumin, Random, Urine (05/04/2011 12:00 PM FITNESS STUDIES TEACHER) Creatinine, Random, U 74.9 30.0 - 125.0 MGDL POWERCHART HXU Albumin % 24.4 12.0 - 30.0 MGL POWERCHART Albumin/Creatin ine Ratio 33(H) 0 - 25 MGGM POWERCHART Urine 05/04/2011 12:0 0 PM FITNESS STUDIES TEACHER us Nathaly Breaux M.D. LAB URINE ORDERAB LES Final Result POWERCHART * CT Chest with IV Contrast (03/13/2011 1:35 PM FITNESS STUDIES TEACHER) Anatomical Region Laterality Modality Chest N/A Computed Tomogra phy 03/13/2011 1:35 PM FITNESS STUDIES TEACHER Impressions 03/13/2011 1:56 PM FITNESS STUDIES TEACHER No pulmonary emboli. FINDINGS: Suboptimal contrast bolus timing. However, no pulmonary emboli are seen. There are minimal faint ground glass infiltrates in both upper lungs anteriorly which may represent atelectasis versus small airway inflammation. Slight linear atelectasis in the left upper lobe inferiorly. The lungs are otherwise clear. Mild diffuse fatty infiltration of the liver. Remainder negative. 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 See document viewer. * Full Code (Latest Code Status on File) Date Activated Date Inactivated Comments 10/23/2022 2:51 PM 10/25/2022 1:26 AM Question Answer Comments Full Code: Discussed Care Teams Coal Trammer Relationship Specialty Start Date End Date Elsewhere, Pcp PCP - General Internal Medicine 06/26/22
--- OUTSIDE RECORDS SUMMARY | 2024-11-14 19:44 | XMS_ITS | Encounter Summary ---
Author Organization [facility] Address [address] [place] [address] Care Team Providers Care Ceramic Engineer Name Role Phone Elsewhere, Pcp Primary Care Provider Unavailabl e Reason for Referral * Specialty Diagnoses / Procedures Referred By Contac t Referred To Contact Diagnoses Diabetes Mellitus NOS [place], MD [facility] Referral ID Status Reason Start Date Expiration Date Visits Re quested Visits Authorized O RIGGER Encounter Details Date Type Department Care Team (Late st Contact Info) Description 03/02/2024 Orders Only Division of Endocrinology in [place], [place] [address] [place] [phone] [facility], ProviderMD Diabetes Mellitus NOS Social History Tobacco Use Types Packs/Day Years Used Date Smoking Tobacco: Every Day Cigarettes 0.3 56.6 Started: [birth year]/01/1969 Smokeless Tobacco: Never Alcohol Use Standard Drinks/Week Comments No 0 (1 standard drink = 0.6 oz pur e alcohol) Hunger Vital Sign Answer Date Recorded Within [...] things needed for daily living? Yes 01/01/2023 Housing Stability Answer Date Recorded What is your living situation today? I have a [facility] place to live 01/01/2023 Comments No Sex and Gender Information Value Date Recorded Sex Assigned at Female 01/01/2023 9:08 AM CDT Legal Sex Female 11:50 PM RADIO RIGGER Gender Identity Female 01/01/2023 9:08 AM CDT Sexual Orientation Straight 01/01/2023 9: 08 AM CDT documented as of this encounter Plan of Treatment Scheduled Referrals Name Type Priority Associated Diagnoses Orde r Schedule Nutrition - patient educator visit (clinic) Outpatient Referral Routine Diabetes Mellitus NOS Expected: 03/02/2024 (Approximate), Expires: 03/02/2025 documented as of this encounter Visit Diagnoses Diagnosis Diabetes Mellitus NOS documented in this encounter Additional Health Concerns Assessment Noted Time PHQ-9 Depression Total Score: 21 012 10:33 AM RADIO RIGGER documented as of this encounter Care Teams Ceramic Engineer Relationship Specialty Start Date End Date Elsewhere, Pcp PCP - General Internal Medicine 06/26/22 documented as of this encounter
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
--- OUTSIDE RECORDS SUMMARY | 2024-11-14 19:44 | XMS_ITS | Encounter Summary ---
Author Organization [facility] Address [address] [place] [address] Care Team Providers Care Science Job Titles Name Role Phone Elsewhere, Pcp Primary Care Provider Unavailabl e Reason for Visit * Reason Onset Date Comments Nicotine Dependence 10/20/2024 Encounter Details Date Type Department Care Team (Latest Contact Info) Description 10/20/2024 Clinical Communication Department of Nicotine Dependence, [facility], in [place], [place] [address] [place] [phone] China Harmon M.A., C.T.T.S., M.S.W. [address] [place] [phone] Nicotine Dependence Social History Tobacco Use Types Packs/Day Years Used Date Smoking Tobacco: Some Days Cigarettes 0.3 56.7 Started: [birth year]/01/1969 Passive Smoke Exposure: Never Smokeless Tobacco: Never Alcohol Use Standard Drinks/Week Comments Never 0 (1 standard drink = 0.6 oz pur e alcohol) [facility] Utilities Answer Date Recorded In [...] a [facility] place to live 03/30/2024 Comments No Sex and Gender Information Value Date Recorded Sex Assigned at Female 01/01/2023 9:08 AM CDT Legal Sex Female 11:50 PM INCIDENT ANALYST Gender Identity Female 01/01/2023 9:08 AM CDT Sexual Orientation Straight 01/01/2023 9: 08 AM CDT documented as of this encounter Plan of Treatment Not on file documented as of this encounter Visit Diagnoses Not on filedocumented in this encounter Additional Health Concerns Assessment Noted Time PHQ-9 Depression Total Score: 21 012 10:33 AM INCIDENT ANALYST documented as of this encounter Care Teams Science Job Titles Relationship Specialty Start Date End Date Elsewhere, Pcp PCP - General Internal Medicine 06/26/22 documented as of this encounter
[2024-11-14] MEDS: KETAMINE HCL 100 MG/ML inj 20 MG IVP (20:24)
== END 2024-11-15 01:04 | disposition short-term general hospital (02) ==
PROVIDERS: Emergency Provider Family Medicine; PCP Nurse Practitioner Family
DX: T23.201A Burn of second degree of right hand, unspecified site, initial encounter (principal); X19.XXXA Contact with other heat and hot substances, initial encounter
CPT/HCPCS: 96372; 96374; 96375; 99284; J1171; J1885; J2270; J3490

== ENCOUNTER 2024-11-15 00:53 | Outpatient (CLI) | payer MEDICARE, SELFPAY | END 2024-11-15 00:54 | disposition home or self-care (01) | LOC: AMB 11-16 14:23 | PROVIDERS: PCP Nurse Practitioner Family; Visit Provider Family Medicine | DX: T23.001A Burn of unspecified degree of right hand, unspecified site, initial encounter (principal) | CPT/HCPCS: A0425; A0433 ==

== ENCOUNTER 2024-12-14 10:19 | Outpatient (CLI) | payer MEDICARE, SELFPAY | END 2024-12-14 10:20 | disposition home or self-care (01) | PROVIDERS: PCP Nurse Practitioner Family; Visit Provider Nurse Practitioner Family | DX: E78.5 Hyperlipidemia, unspecified (principal); I10 Essential (primary) hypertension | CPT/HCPCS: 80053; 80061; 85025 ==